=== PATIENT | male | born 1970 | race Caucasian/White ===

== ENCOUNTER 2022-08-31 16:18 | Outpatient (CLI) | payer MEDICARE, MEDICAID, SELFPAY ==
--- NOTE | ~2022-08-31 | XR_ITS ---
EXAMINATION: XR chest 2V DATE: 08/31/2022 17:05 INDICATION: Back pain. Smoking. TECHNIQUE: Frontal and lateral views of the chest were obtained. COMPARISON: None. FINDINGS: There is mild atelectasis in left lower lung zone. No pleural effusion or pneumothorax. The heart size is normal. IMPRESSION: 1. Mild atelectasis in left lower lung zone. Reviewed, dictated and finalized at location E.
--- NOTE | ~2022-08-31 | XR_ITS ---
EXAMINATION: XR thoracic spine 3V DATE: 08/31/2022 17:05 INDICATION: Back pain. TECHNIQUE: 3 views of thoracic spine were obtained. COMPARISON: None. FINDINGS: There is 12 degrees levoscoliosis of upper thoracic spine. Vertebral heights are normal. Th ere is mildly decreased disc height at multiple levels in mid and lower thoracic spine. IMPRESSION: 1. Mild thoracic spondylosis. 2. Upper thoracic levoscoliosis. Reviewed, dictated and finalized at location E.
--- NOTE | ~2022-08-31 | XR_ITS ---
EXAMINATION: XR lumbar spine 2-3V DATE: 08/31/2022 17:05 INDICATION: Back pain. TECHNIQUE: 3 views of lumbar spine were obtained. COMPARISON: None. FINDINGS: Bone alignment is normal. There is mild chronic anterior wedging of T12 and L1 vertebral fly dies, likely physiologic. There is mildly decreased disc height at L1-L2. There are endplate osteophy duglas at most levels. There is multilevel mild to moderate facet joint osteoarthritis. A peritoneal urmila lysis catheter is noted. IMPRESSION: 1. Mild lumbar spondylosis. Reviewed, dictated and finalized at location E. IMPRESSION: 1. Mild lumbar spondylosis.
== END 2022-08-31 16:19 | disposition home or self-care (01) ==
PROVIDERS: PCP Emergency Medicine; Visit Provider Internal Medicine Nephrology
DX: Z87.891 Personal history of nicotine dependence (principal); M47.896 Other spondylosis, lumbar region; M47.894 Other spondylosis, thoracic region; R91.8 Other nonspecific abnormal finding of lung field
CPT/HCPCS: 71046; 72072; 72100

== ENCOUNTER 2022-09-21 13:47 | Outpatient (CLI) | payer MEDICARE, MEDICAID, SELFPAY ==
--- NOTE | ~2022-09-21 | MR_ITS ---
EXAMINATION: MR lumbar spine wo con DATE: 09/21/2022 14:44 INDICATION: Dorsalgia, unspecified. TECHNIQUE: Magnetic resonance imaging (MRI) of the lumbar spine was performed without intravenous con trast. Sequences included sagittal T2-weighted FSE, sagittal T2-weighted FS FSE, sagittal T1-weighted FSE, and axial T2-weighted FSE. COMPARISON: Lumbar spine radiographs 08/31/2022 FINDINGS: There is 3 degrees dextrocurvature of lumbar spine. Vertebral body heights are normal. Ther e is mildly decreased disc height at L1-L2. The distal spinal cord signal intensity is normal. The co nus medullaris is at L1-L2. The following disc levels are specifically discussed: L1-L2: The disc is bulging. There is mild right and moderate left facet joint osteoarthritis. There i s mild bilateral neural foraminal stenosis. There is mild central canal stenosis. L2-L3: The disc is bulging. There is mild bilateral facet joint osteoarthritis. There is mild lateral neural foraminal stenosis. There is mild central canal stenosis. L3-L4: The disc is bulging. There is mild bilateral facet joint osteoarthritis. There is mild bilater al neural foraminal stenosis. There is mild central canal stenosis. L4-L5: The disc is bulging and has an annular fissure. There is severe right and moderate left facet joint osteoarthritis. There is mild bilateral neural foraminal stenosis. There is mild central canal stenosis. L5-S1: The disc is bulging. There is severe right and moderate left facet joint osteoarthritis. There is mild bilateral neural foraminal stenosis. There is mild central canal stenosis. IMPRESSION: 1. Mild lumbar spondylosis. Reviewed, dictated and finalized at location A. IMPRESSION: 1. Mild lumbar spondylosis.
--- NOTE | ~2022-09-21 | MR_ITS ---
EXAMINATION: MR thoracic spine wo con DATE: 09/21/2022 14:44 INDICATION: Dorsalgia, unspecified. TECHNIQUE: Magnetic resonance imaging (MRI) of the thoracic spine was performed without intravenous c ontrast. COMPARISON: Thoracic spine radiographs 08/31/2022 FINDINGS: There is 7 degrees levocurvature of upper thoracic spine. Vertebral body heights are normal . There is mildly decreased disc height from T5-T6 through T8-T9 and at T10-T11 with endplate remodel ing. At T10-T11, the disc is bulging with mild central canal stenosis. There is multilevel facet join t osteoarthritis, severe on the right at T4-T5. On the right, there is mild neural foraminal stenosis at T1-T2 and T4-T5. The spinal cord signal intensity is normal. IMPRESSION: 1. Mild thoracic spondylosis. Reviewed, dictated and finalized at location A.
== END 2022-09-21 13:48 | disposition home or self-care (01) ==
PROVIDERS: PCP Emergency Medicine; Referring Provider Internal Medicine Nephrology; Visit Provider Emergency Medicine
DX: M47.894 Other spondylosis, thoracic region (principal); M47.896 Other spondylosis, lumbar region
CPT/HCPCS: 72146; 72148

== ENCOUNTER 2022-11-02 15:27 | Emergency (ER) | payer MEDICARE, MEDICAID, OTHER, SELFPAY ==
[2022-11-02] VITALS (44 sets, daily range): BP systolic 137–210; BP diastolic 94–120; PULSE 82–166; RESP 11–23; TEMP 36.8; O2SAT 20–98
[2022-11-02] MEDS: LABETALOL HCL INJ 100 MG/20 ML VIAL 10 MG IV PUSH (20:02)
[2022-11-02 20:03] LABS: Basophils Absolute Auto 0.1 K/mm3 (0.0-0.1); Basophils Percent Auto 0.7 % (0.2-1.2); Eosinophils Absolute Auto 0.4 K/mm3 (0-0.3); Eosinophils Percent Auto 4.6 % (0-4.4); Hematocrit 28.8 % (42.0-52.0); Hemoglobin 9.4 g/dL (14.0-18.0); Immature Granulocyte Absolute 0.02 K/mm3 (0.00-0.031); Immature Granulocyte Percent A 0.2 % (0-0.5); Lymphocytes Absolute Auto 1.11 K/mm3 (0.9-3.2); Mean Corpuscular HGB Conc 32.6 g/dl (32-36); Mean Corpuscular Hemoglobin 32.4 pg (26-34); Mean Corpuscular Volume 99.3 fl (80-100); Mean Platelet Volume 8.7 fl (7.4-10.4); Monocytes Absolute Auto 0.9 K/mm3 (0.1-0.6); Neutrophils Absolute Auto 6.1 K/mm3 (1.3-6.7); Neutrophils Percent Auto 71.5 % (45.5-73.1); Platelet Count Result 337 k/mm3 (150-375); Red Cell Distribution Width 13.2 % (11.5-14.5); White Blood Count 8.5 K/mm3 (4.5-10.0)
[2022-11-02 20:26] LABS: Alanine Aminotransferase 25 U/L (6-50); Albumin Level 3.4 g/dL (3.5-5.1); Alkaline Phosphatase 73 U/L (38-126); Anion Gap 13 mmol/L (8-16); Aspartate Amino Transferase 27 U/L (17-59); Bilirubin,Total 0.5 mg/dL (0.2-1.3); Blood Urea Nitrogen 54 mg/dL (9-20); Calcium 7.8 mg/dL (8.4-10.2); Carbon Dioxide 21 mmol/L (22-30); Chloride 95 mmol/L (98-107); Estimated CRCL calculation 9 ml/min; Estimated Glomerular Filt Rate 5; Glucose 80 mg/dL (65-110); Sodium 129 mmol/L (137-145)
--- NOTE | 2022-11-02 20:31 | ED.GENADULT ---
HPI - General Adult General Chief complaint: Shortness of Breath/Dyspnea Stated complaint: SOB Time Seen by Provider: 11/02/22 19:16 History of Present Illness HPI narrative: Patient presents to the emergency department with his family. He was seen at his doctor's office today. He gets peritoneal dialysis every day at home due to end-stage renal disease. Over the past couple weeks he has been getting more short of breath. Now over the past week bilateral lower extremity edema. Denies fevers or chills. Spoke to his dialysis nurse and was told to due to red bags and that should relieve his swelling. However his primary care physician requested that he come to the emergency department. He had a chest x-ray and labs earlier today. Was told that the BNP was elevated. Added that he has taken 2 COVID tests at home that are negative. His family member contributes to the history stating that the symptoms are new for him Related Data Home Medications Medication Instructions Recorded Confirmed aspirin 325 mg tablet,delayed 325 mg PO DAILY PRN 08/31/22 release calcium acetate 667 mg tablet 1,334 mg PO .COMPLEX 08/31/22 furosemide 80 mg tablet 80 mg PO QAM 08/31/22 gentamicin 0.1 % topical cream 1 applic topical TID PRN 08/31/22 hydroxyzine HCl 10 mg tablet 10 mg PO DAILY PRN 08/31/22 melatonin 10 mg capsule 10 mg PO QHS PRN 08/31/22 nkuzzxjcunme-lzy-ixwzn acid-vit 1 tablet PO DAILY 08/31/22 K-lycop 400 mcg-20 mcg-370 mcg tablet (Men's 50 Plus Multivitamin) ondansetron 4 mg disintegrating 4 mg PO Q8H PRN 08/31/22 tablet labetalol 100 mg tablet 200 mg PO Q12H 10/13/22 Allergies Allergy/AdvReac Type Severity Reaction Status Date / Time No Known Allergies Allergy Verified 11/02/22 11:25 Review of Systems Review of Systems: ROS negative except for what is documented in the [facility] Social History Social History (Updated 11/02/22 @ 11:26 by Lyssa Mccord MA) Smoking status: Current every day smoker Alcohol intake: current Alcohol use details: rarely Current Housing: Decline to Answer Concerned About Future Housing: Decline to Answer Difficulty Paying Gas/Electric Bills: Decline to Answer Difficulty Paying for Meds: Decline to Answer Currently Unemployed: Decline to Answer Education: Decline to Answer Difficulty w/ Childcare or Family Care: Decline to Answer Exam Narrative: GENERAL: Well-appearing, well-nourished, and in no acute distress. HEAD: Normocephalic, atraumatic. EYES: PERRLA and EOMI. ENT: Nares clear, no rhinorrhea or epistaxis. Mucous membranes moist. NECK: Supple. CHEST: Clear to auscultation. No respiratory distress. HEART: Regular rate and rhythm. ABDOMEN: Soft, nontender, nondistended. EXTREMITIES: Normal range of motion. Significant edema. SKIN: Warm, dry, no rash. NEURO: No focal deficits. Alert and oriented x3. PSYCH: Normal mood and affect. Course Course Emergency Course: Differential diagnosis includes but not limited to new onset congestive heart failure, fluid overload secondary to end-stage renal disease, electrolyte abnormality Telemetry ordered due to extremity edema and shortness of breath to evaluate for dysrhythmias. Evaluated by myself. Rhythm ns Rate 86 Vital Signs Vital signs: Vital Signs Temperature 36.8 C 11/02/22 15:27 Pulse Rate 88 11/02/22 15:27 Respiratory Rate 18 11/02/22 15:27 Blood Pressure 188/108 H 11/02/22 15:27 Pulse Oximetry 96 11/02/22 15:27 Oxygen Delivery Room Air 11/02/22 15:27 Temperature 36.8 C 11/02/22 15:27 Pulse Rate 83 11/02/22 23:11 Respiratory Rate 20 11/02/22 23:11 Blood Pressure 161/98 H 11/02/22 23:11 Pulse Oximetry 94 11/03/22 00:15 Oxygen Delivery Nasal Cannula 11/03/22 00:15 Oxygen Flow Rate 2 11/03/22 00:15 Medical Decision Making Vital Signs Vital Signs: Vital Signs Temperature 36.8 C 11/02/22 15:27 Pulse Rate 88
[2022-11-02] MEDS: cloNIDine HCL 0.1 MG TABLET 0.2 MG PO (21:57)
[2022-11-02] MEDS: ALBUTEROL SULFATE NEB 2.5 MG/3 ML INH INHALATION (22:31)
[2022-11-02] MEDS: methylPREDNISolone SOD SUCC 125 MG VIAL IV PUSH (22:54)
--- NOTE | 2022-11-03 00:14 | PC.NURSE ---
Pt ambulated with steady gait with pulse oximeter. Pts O2 saturations 88% while ambulating. Pt placed back on 2L NC, resting on stretcher.
[2022-11-03 00:15] VITALS: O2SAT 94
[2022-11-03 00:57] VITALS: PULSE 87; RESP 20; O2SAT 94
[2022-11-03 01:26] VITALS: BP 162/100; PULSE 91; RESP 22; O2SAT 92
== END 2022-11-03 01:26 | disposition home or self-care (01) ==
PROVIDERS: Emergency Provider Emergency Medicine; PCP Emergency Medicine
DX: J44.9 Chronic obstructive pulmonary disease, unspecified (principal); J81.0 Acute pulmonary edema; E87.70 Fluid overload, unspecified; R09.89 Other specified symptoms and signs involving the circulatory and respiratory systems; N18.6 End stage renal disease; Z99.2 Dependence on renal dialysis; Z79.82 Long term (current) use of aspirin; Z79.51 Long term (current) use of inhaled steroids
CPT/HCPCS: 36415; 71046; 80053; 83880; 85025; 94640; 96374; 96375; 99284; A9270; J2930

== ENCOUNTER 2022-11-11 14:14 | Outpatient (CLI) | payer MEDICARE, MEDICAID, SELFPAY ==
--- NOTE | ~2022-11-11 | US_ITS ---
EXAMINATION: US art doppler w press LE BI DATE: 11/11/2022 15:26 INDICATION: Peripheral vascular disease TECHNIQUE: Segmental pressures and plethysmographic and Doppler waveforms of the brachial and lower e xtremity arteries were obtained. COMPARISON: None. FINDINGS: Right and left brachial artery pressures of 146 mm Hg and 144 mm Hg, respectively, are concordant (no rmal difference <= 30 mmHg). The right and left high-thigh pressure indices are unable to be obtained due to inability to occlude the vessels in either the left or right thighs (normal > 1.2). The right ankle-brachial index (JAUN) is 1.21 (normal >= 0.9-1). The right great toe-brachial index (T BI) is 0.59 (normal >= 0.6-0.8). The right lower extremity segmental pressure gradients are increased between the right szwub-okw-kxdc popliteal artery and the right dorsalis pedis artery (normal gradie nts <= 20-30 mmHg between adjacent levels on the same leg or the same levels on the two legs). Arteri al waveforms are triphasic with brisk systolic upstrokes throughout the arteries of the right lower l imb. The left JAUN is 1.30. The left TBI is 1.05. The left lower extremity segmental pressure gradients rel ative to the obtainable pressure measurements at the left ankle are normal. Arterial waveforms are tr iphasic with brisk systolic upstrokes throughout the arteries of the left lower limb. IMPRESSION: 1. Mild arterial occlusive disease to right lower limb with normal right JAUN but mildly decreased rig ht TBI. 2. No significant arterial occlusive disease to left lower limb with normal left JAUN and TBI. Reviewed, dictated and finalized at location A. IMPRESSION: 1. Mild arterial occlusive disease to right lower limb with normal right JAUN bu t mildly decreased right TBI. 2. No significant arterial occlusive disease to left lower limb with normal lef t JAUN and TBI.
== END 2022-11-11 14:15 | disposition home or self-care (01) ==
PROVIDERS: PCP Emergency Medicine; Visit Provider Emergency Medicine
DX: I73.9 Peripheral vascular disease, unspecified (principal)
CPT/HCPCS: 93923

== ENCOUNTER 2022-12-12 10:28 | Outpatient (CLI) | payer MEDICARE, MEDICAID, SELFPAY ==
--- NOTE | ~2022-12-12 | CT_ITS ---
EXAMINATION: CT sinus wo con DATE: 12/12/2022 13:01 INDICATION: Sinusitis TECHNIQUE: Computed tomography (CT) of the paranasal sinuses was performed without intravenous contra st. The dose-length product was 329.94 mGy-cm. Automated exposure control and iterative reconstructio n technique were employed. COMPARISON: None FINDINGS: There is mucosal thickening of the frontal, ethmoid, maxillary and sphenoid sinuses. Mastoi ds are pneumatized. Rightward nasal septal deviation. There is abnormal soft tissue involving the ost iomeatal units. IMPRESSION: 1. Severe pansinusitis. Reviewed, dictated and finalized at location A. IMPRESSION: 1. Severe pansinusitis.
--- NOTE | 2022-12-12 10:52 | ECHO_ITS ---
Patient Info Name: Saul Rolon Age: 52 years : 1970 Gender: Male Ht: 71 in Wt: 220 lbs BSA: 2.26 m2 HR: 89 bpm BP: 144 / 82 mmHg Heart Rhythm: Sinus Rhythm Technical Quality: Good Exam Date: 12/12/2022 11:04 AM Exam Location: [facility] Patient Status: Outpatient Admit Date: 12/12/2022 Staff Ordering Physician: Milo Morrell MD Tanning Consultant: Tima Chris RDCS Attending Provider: Milo Morrell MD Referring Physician: Petros DAVEY; Exam Type: CA echo doppler color flow Study Info Indications - cp, chronic cough, nasal congestion Complete two-dimensional, color flow and Doppler transthoracic echocardiogram is performed. Summary 1. Complete two-dimensional, color flow and Doppler transthoracic echocardiogram is performed. 2. Left ventricular chamber dimension is mildly enlarged. 3. Left ventricular systolic function is normal, estimated at 60-65%. 4. There is mild concentric increased left ventricular wall thickness. 5. The left ventricular diastolic function is abnormal. 6. E/e' 18 is elevated. 7. Left atrial chamber dimension is moderately enlarged. 8. Right atrial chamber dimension is mildly enlarged. 9. The mitral valve has severely calcified posterior annulus. 10. There is mild mitral valve regurgitation. 11. There is trace tricuspid valve regurgitation. 12. No pulmonary hypertension, estimated pulmonary arterial systolic pressure is 38 mmHg. Left Ventricle E/e' 18 is elevated. Left ventricular chamber dimension is mildly enlarged. Left ventricular systolic function is normal, estimated at 60-65%. There is mild concentric increased left ventricular wall thickness. The left ventricular diastolic function is abnormal. Right Ventricle Right ventricular systolic function is normal and with normal TAPSE 3.5 cm. Right ventricular chamber dimension is normal. Left Atria Left atrial chamber dimension is moderately enlarged. Right Atria Right atrial chamber dimension is mildly enlarged. Aortic Valve The aortic valve is trileaflet. There is no aortic valve stenosis. There is no aortic valve regurgitation. Pulmonic Valve There is no pulmonic regurgitation. Mitral Valve The mitral valve has severely calcified posterior annulus. There is no mitral valve stenosis. There is mild mitral valve regurgitation. Tricuspid Valve There is trace tricuspid valve regurgitation. No pulmonary hypertension, estimated pulmonary arterial systolic pressure is 38 mmHg. Pericardium/Pleural There is no pericardial effusion. Inferior Vena Cava Normal inferior vena cava with >50% collapse upon inspiration consistent with normal right atrial pressure, 5 mmHg. Aorta The aortic root size at the sinus of Valsalva is normal. Left Ventricular Outflow Tract Name Value Normal LVOT 2D LVOT Diameter 2.1 cm LVOT Doppler LVOT Peak Gradient 4 mmHg LVOT Mean Gradient 2 mmHg LVOT VTI 29 cm LVOT VTI/AV VTI Ratio 0.9 LVOT Stroke Volume 101 ml LVOT CO 5.9 l/min LVOT CI
== END 2022-12-12 10:29 | disposition home or self-care (01) ==
LOC: ANHCARD 10:30
PROVIDERS: PCP Emergency Medicine; Visit Provider Emergency Medicine
DX: J32.4 Chronic pansinusitis (principal); I34.0 Nonrheumatic mitral (valve) insufficiency; R93.1 Abnormal findings on diagnostic imaging of heart and coronary circulation; R09.89 Other specified symptoms and signs involving the circulatory and respiratory systems; R09.81 Nasal congestion; I07.1 Rheumatic tricuspid insufficiency
CPT/HCPCS: 70486; 93306

== ENCOUNTER 2023-03-24 13:19 | Outpatient (CLI) | payer MEDICARE, MEDICAID, SELFPAY ==
--- NOTE | 2023-03-24 14:00 | NEURO_ITS ---
Impression: # Complains of numbness of lower extremities. He is on daily home dialysis ? # Severe axonal neuropathy. ? # Needle/EMG exam revealed neurogenic changes. ? # Clinical correlation recommended. ? Nerve Conduction Studies Anti Sensory Summary Table Stim Site NR Peak (ms) P-T Amp (?V) Site1 Site2 Delta-P (ms) Dist (cm) Bill (m/s) Left Saphenous Anti Sensory (Ant Med Mall) NO RESPONSE 14cm NR 14cm Ant Med Mall 0.0 Right Saphenous Anti Sensory (Ant Med Mall) NO RESPONSE 14cm NR 14cm Ant Med Mall 0.0 Left Sup Fibular Anti Sensory (Ant Lat Mall) NO RESPONSE 14 cm NR 14 cm Ant Lat Mall 16.0 Right Sup Fibular Anti Sensory (Ant Lat Mall) NO RESPONSE 14 cm NR 14 cm Ant Lat Mall 16.0 Left Sural Anti Sensory (Lat Mall) NO RESPONSE Calf NR Calf Lat Mall 16.0 Right Sural Anti Sensory (Lat Mall) NO RESPONSE Calf NR Calf Lat Mall 16.0 Motor Summary Table Stim Site NR Onset (ms) O-P Amp (mV) Site1 Site2 Delta-0 (ms) Dist (cm) Bill (m/s) Left Peroneal Motor (Vastus Med) Ankle 5.2 0.9 Popit Ankle 11.3 39.0 35 Popit 16.5 0.6 Right Peroneal Motor (Vastus Med) NO RESPONSE Ankle NR Popit Ankle 0.0 Popit NR Left Tibial Motor (Abd Cao Brev) NO RESPONSE Ankle NR Knee NR Right Tibial Motor (Abd Cao Brev) NO RESPONSE Ankle NR Knee NR F Wave Studies NR F-Lat (ms) L-R F-Lat (ms) Left Peroneal (Mrkrs) (EDB) 63.51 Right Peroneal (Mrkrs) (EDB) NO RESPONSE NR Left Tibial (Mrkrs) (Abd Hallucis) NO RESPONSE NR Right Tibial (Mrkrs) (Abd Hallucis) NO RESPONSE NR EMG Side Muscle Nerve Root Ins Act Fibs Amp Dur Recrt Comment Right AntTibialis Dp Br Fibular L4-5 Nml Nml Nml >12ms Reduced Right Gastroc Tibial S1-2 Nml Nml Nml >12ms Reduced Right Fibularis Long Sup Br Fibular L5-S1 Nml Nml Nml >12ms Reduced Right Flex Dig Long Tibial L5-S2 Nml Nml Nml >12ms Reduced Right Ext Dig Brev Dp Br Fibular L5, S1 Nml Nml Nml >12ms Reduced Left AntTibialis Dp Br Fibular L4-5 Nml Nml Nml >12ms Reduced Left Gastroc Tibial S1-2 Nml Nml Nml >12ms Reduced Left Fibularis Long Sup Br Fibular L5-S1 Nml Nml Nml >12ms Reduced Left Flex Dig Long Tibial L5-S2 Nml Nml Nml >12ms Reduced Left Ext Dig Brev Dp Br Fibular L5, S1 Nml Nml Nml >12ms Reduced MTDD
== END 2023-03-24 13:20 | disposition home or self-care (01) ==
PROVIDERS: PCP Emergency Medicine
DX: G60.3 Idiopathic progressive neuropathy (principal); M54.16 Radiculopathy, lumbar region
CPT/HCPCS: 95886; 95911

== ENCOUNTER 2023-04-20 05:20 | Day surgery (SDC) | payer MEDICARE, MEDICAID, SELFPAY ==
[2023-04-01 14:45] VITALS: BMI 33.3
--- NOTE | 2023-04-16 14:50 | PC.NURSE ---
Patient called regarding upcoming procedure. Reviewed preop instructions, appointment times, and procedure prep. Message left to call back if he has any questions.
[2023-04-20 11:00] VITALS: BP 153/89; PULSE 83; RESP 20; TEMP 36.6; O2SAT 100; BMI 34.9
[2023-04-20] MEDS: SODIUM CHLORIDE 0.9% IV 500 ML 10 ML IV CONT (11:15)
[2023-04-20 11:24] LABS: Anion Gap 16 mmol/L (8-16); Blood Urea Nitrogen 59 mg/dL (9-20); Calcium 8.2 mg/dL (8.4-10.2); Carbon Dioxide 23 mmol/L (22-30); Chloride 92 mmol/L (98-107); Estimated CRCL calculation 8 ml/min; Estimated Glomerular Filt Rate 4; Glucose 89 mg/dL (65-110); Potassium 3.3 mmol/L (3.4-5.0); Sodium 131 mmol/L (137-145)
--- NOTE | 2023-04-20 11:42 | WPDANESEPPF ---
Anes - Initial Pre Proc Eval Procedure: Operation Date: 04/20/23 12:30 Proposed Procedures p Screening Colonoscopy - Arnold Castaneda MD Date/Time: 04/20/23 11:42 Surgeon: Arnold Castaneda MD Pre Op Diagnosis: neoplasm screening Patient Data Age: 53 Gender: M Height: 1.78 m Weight: 110.4 kg Last Vital Signs Temp 36.6 C 04/20/23 11:00 Pulse 83 04/20/23 11:00 Resp 20 04/20/23 11:00 BP 153/89 H 04/20/23 11:00 Pulse Ox 100 04/20/23 11:00 O2 Del Method Room Air 04/20/23 11:00 Allergies Allergy/AdvReac Type Severity Reaction Status Date / Time No Known Allergies Allergy Verified 04/20/23 10:58 Home Medications Medication Instructions Recorded Confirmed Type acetaminophen 650 mg 650 mg PO Q6H PRN pain #90 tabs 08/31/22 04/01/23 Rx tablet,extended release (Tylenol 8 Hour) calcium acetate 667 mg tablet 2,668 mg PO TIDWMEAL 08/31/22 04/01/23 History furosemide 80 mg tablet 80 mg PO QAM 08/31/22 04/01/23 History gentamicin 0.1 % topical cream 1 applic topical TID PRN DIALYSIS 08/31/22 04/01/23 History CATH. melatonin 10 mg capsule 40 mg PO QHS 08/31/22 04/01/23 History amlodipine 10 mg tablet 10 mg PO DAILY #90 tabs 10/13/22 04/01/23 Rx gabapentin 300 mg capsule 300 mg PO TID #270 caps 11/30/22 04/01/23 Rx albuterol sulfate 90 mcg/actuation 1 inh inhalation QID PRN shortness 03/01/23 04/01/23 Rx aerosol inhaler of breath or wheezing #8.5 grams peg 3350-electrolytes 236 240 ml PO Q10M #4,000 mL 03/18/23 Rx gram-22.74 gram-6.74 gram-5.86 gram solution (Golytely) alprazolam 0.5 mg tablet (Xanax) 0.5 mg PO BID PRN anxiety #30 tabs 03/30/23 04/01/23 Rx Adults Multivitamin 1 tab-cap PO DAILY 04/01/23 04/01/23 History ascorbic acid (vitamin C) 500 mg 500 mg PO DAILY 04/01/23 04/01/23 History tablet cinacalcet 30 mg tablet 30 mg PO DAILY 04/01/23 04/01/23 History escitalopram oxalate 10 mg tablet 10 mg PO DAILY 04/01/23 04/01/23 History labetalol 200 mg tablet 200 mg PO BID 04/01/23 04/01/23 History lanthanum 1,000 mg chewable tablet 1,000 mg PO TIDWM 04/01/23 04/01/23 History nicotine 7 mg/24 hr daily 1 patch topical Q24H 04/01/23 04/01/23 History transdermal patch omeprazole 20 mg tablet,delayed 20 mg PO DAILY 04/01/23 04/01/23 History release triamcinolone acetonide 0.1 % 1 applic topical BID 04/01/23 04/01/23 History topical ointment vitamin A 2,400 mcg capsule 2,400 mcg PO DAILY 04/01/23 04/01/23 History Laboratory Tests 04/20/23 11:10 Sodium 131 L mmol/L (137-145) Potassium 3.3 L mmol/L (3.4-5.0) Chloride 92 L mmol/L (98-107) Carbon Dioxide 23 mmol/L (22-30) Anion Gap 16 mmol/L (8-16) BUN 59 H mg/dL (9-20) Creatinine 12.30 H mg/dL (0.7-1.3) Estim Creat Clear Calc 8 ml/min Estimated GFR 4 L (59 - ) Glucose 89 mg/dL (65-110) Calcium 8.2 L mg/dL (8.4-10.2) Patient hx anesthesia problems: none Family hx anesthesia problems: none Results Review: All pre-operative results and documents have been reviewed as part of the pre-operative evaluation. [facility] Past Medical History Medical History End stage kidney disease HTN (hypertension) Vitamin D3 deficiency Social History Social History Smoking packs per day: 0.5 Smoking cigarettes per day: 10.0 Years smoked: 20 Smoking pack-years: 10.00 Smoking status: Current some day smoker Tobacco type: cigarettes Additional smoking assessment comments: CURRENTLY QUITTING - ONLY SMOKING 2-3 CIG/DAY Alcohol intake: never Alcohol use details: rarely Substance use: current Substance use type: marijuana Other substance usage details: OCCASIONAL Lack of Transportation: No Lack of Food: Sometimes True Current Housing: I Have Housing Concerned About Future Housing: No Difficulty Paying Ga
--- NOTE | 2023-04-20 12:24 | PM.HPGS ---
History of Present Illness History of Present Illness Consent: Risks, benefits, and alternatives have been discussed and questions answered. Patient agrees to proceed with procedure. Chief complaint: neoplasm screening Narrative: Real Rolon is a 53 year old male here for first screening colonoscopy Review of Systems Constitutional: Constitutional: Denies headache(s) and Denies weakness Eyes: Eyes: Denies blurry vision ENT: Reports Normal hearing present, Denies headache(s) and Denies neck pain Cardiovascular: Cardiovascular: Denies chest pain and Denies dyspnea Respiratory: Respiratory: Denies dyspnea Gastrointestinal: Gastrointestinal: Reports no additional gastrointestinal complaints Genitourinary: Genitourinary: Denies dysuria Musculoskeletal: Musculoskeletal: Denies neck pain Integumentary/Breasts: Skin/Breast: Denies dry skin Neurologic: Reports Normal hearing present, Denies headache(s) and Denies weakness Psychiatric: Psychiatric: Denies anxiety Endocrine: Endocrine: Denies change in body appearance Hematologic/Lymphatic: Hematologic/Lymphatic: Denies easy bleeding Allergic/Immunologic: Allergic/Immunologic: Denies urticaria PMFSH Past Medical History Medical History End stage kidney disease HTN (hypertension) Vitamin D3 deficiency Social History Social History Smoking packs per day: 0.5 Smoking cigarettes per day: 10.0 Years smoked: 20 Smoking pack-years: 10.00 Smoking status: Current some day smoker Tobacco type: cigarettes Additional smoking assessment comments: CURRENTLY QUITTING - ONLY SMOKING 2-3 CIG/DAY Alcohol intake: never Alcohol use details: rarely Substance use: current Substance use type: marijuana Other substance usage details: OCCASIONAL Lack of Transportation: No Lack of Food: Sometimes True Current Housing: I Have Housing Concerned About Future Housing: No Difficulty Paying Gas/Electric Bills: No Difficulty Paying for Meds: No Currently Unemployed: YES Education: Bachelor's Degree Difficulty w/ Childcare or Family Care: No Living arrangements: with family Spiritual care concerns: No Meds Home Medications and Allergies Home Medications Medication Instructions Recorded Confirmed Type acetaminophen 650 mg 650 mg PO Q6H PRN pain #90 tabs 08/31/22 04/01/23 Rx tablet,extended release (Tylenol 8 Hour) calcium acetate 667 mg tablet 2,668 mg PO TIDWMEAL 08/31/22 04/01/23 History furosemide 80 mg tablet 80 mg PO QAM 08/31/22 04/01/23 History gentamicin 0.1 % topical cream 1 applic topical TID PRN DIALYSIS 08/31/22 04/01/23 History CATH. melatonin 10 mg capsule 40 mg PO QHS 08/31/22 04/01/23 History amlodipine 10 mg tablet 10 mg PO DAILY #90 tabs 10/13/22 04/01/23 Rx gabapentin 300 mg capsule 300 mg PO TID #270 caps 11/30/22 04/01/23 Rx albuterol sulfate 90 mcg/actuation 1 inh inhalation QID PRN shortness 03/01/23 04/01/23 Rx aerosol inhaler of breath or wheezing #8.5 grams peg 3350-electrolytes 236 240 ml PO Q10M #4,000 mL 03/18/23 Rx gram-22.74 gram-6.74 gram-5.86 gram solution (Golytely) alprazolam 0.5 mg tablet (Xanax) 0.5 mg PO BID PRN anxiety #30 tabs 03/30/23 04/01/23 Rx Adults Multivitamin 1 tab-cap PO DAILY 04/01/23 04/01/23 History ascorbic acid (vitamin C) 500 mg 500 mg PO DAILY 04/01/23 04/01/23 History tablet cinacalcet 30 mg tablet 30 mg PO DAILY 04/01/23 04/01/23 History escitalopram oxalate 10 mg tablet 10 mg PO DAILY 04/01/23 04/01/23 History labetalol 200 mg tablet 200 mg PO BID 04/01/23 04/01/23 History lanthanum 1,000 mg chewable tablet 1,000 mg PO TIDWM 04/01/23 04/01/23 History nicotine 7 mg/24 hr daily 1 patch topical Q24H 04/01/23 04/01/23 History transdermal patch omeprazole 20 mg tablet,delayed 20 mg PO DAILY 04/01/23 04/01/23 History release triamcinolone ac
[2023-04-20 12:46] VITALS: BP 123/87; PULSE 79; RESP 20; O2SAT 95
[2023-04-20 12:56] VITALS: BP 124/80; PULSE 78; RESP 22; O2SAT 93
[2023-04-20 13:06] VITALS: BP 151/92; PULSE 79; RESP 16; O2SAT 100
== END 2023-04-20 13:25 | disposition home or self-care (01) ==
PROVIDERS: Anesthesiology; PCP Emergency Medicine; Visit Provider Internal Medicine Gastroenterology
PROC: 0DJD8ZZ Inspection of Lower Intestinal Tract, Via Natural or Artificial Opening Endoscopic (ICD-10-PCS; CPT 45378; principal; 2023-04-20 12:30)
DX: Z12.11 Encounter for screening for malignant neoplasm of colon (principal); D12.3 Benign neoplasm of transverse colon; K64.8 Other hemorrhoids; I12.0 Hypertensive chronic kidney disease with stage 5 chronic kidney disease or end stage renal disease; N18.6 End stage renal disease; E55.9 Vitamin D deficiency, unspecified; F17.210 Nicotine dependence, cigarettes, uncomplicated
CPT/HCPCS: 45385; 36415; 80048; 88305; A9270; J2704; J7040

== ENCOUNTER 2023-06-21 10:09 | Emergency (ER) | payer MEDICARE, MEDICAID, SELFPAY ==
--- NOTE | 2023-06-21 10:33 | ED.EAR ---
HPI - Ear Problem General Chief complaint: Ear Stated complaint: Rt ear pain Time Seen by Provider: 06/21/23 10:53 Source: patient and RN notes reviewed Mode of arrival: ambulatory Limitations: no limitations History of Present Illness HPI Narrative: 53 year old male presents with concern for right ear pain that started on Wednesday. He reports some watery drainage. He denies cold symptoms, fever. He denies intervention for his pain MD Complaint: ear pain Related Data Home Medications Medication Instructions Recorded Confirmed calcium acetate 667 mg tablet 2,668 mg PO TIDWMEAL 08/31/22 06/21/23 furosemide 80 mg tablet 80 mg PO QAM 08/31/22 06/21/23 gentamicin 0.1 % topical cream 1 applic topical TID PRN DIALYSIS 08/31/22 06/21/23 CATH. melatonin 10 mg capsule 40 mg PO QHS 08/31/22 06/21/23 Adults Multivitamin 1 tab-cap PO DAILY 04/01/23 06/21/23 ascorbic acid (vitamin C) 500 mg 500 mg PO DAILY 04/01/23 06/21/23 tablet cinacalcet 30 mg tablet 30 mg PO DAILY 04/01/23 06/21/23 escitalopram oxalate 10 mg tablet 10 mg PO DAILY 04/01/23 06/21/23 labetalol 200 mg tablet 200 mg PO BID 04/01/23 06/21/23 lanthanum 1,000 mg chewable tablet 1,000 mg PO TIDWM 04/01/23 06/21/23 omeprazole 20 mg tablet,delayed 20 mg PO DAILY 04/01/23 06/21/23 release triamcinolone acetonide 0.1 % 1 applic topical BID 04/01/23 06/21/23 topical ointment vitamin A 2,400 mcg capsule 2,400 mcg PO DAILY 04/01/23 06/21/23 Allergies Allergy/AdvReac Type Severity Reaction Status Date / Time No Known Allergies Allergy Verified 06/21/23 10:29 Review of Systems Review of Systems: CONSTITUTIONAL: Denies malaise, chills, sweats, or fever. EYES: Denies visual changes, redness, or discharge. ENT: Denies rhinorrhea, congestion, sinus pain, and sore throat. Reports right ear pain CARDIOVASCULAR: Denies chest pain, palpitations, or edema. RESPIRATORY: Denies cough. Denies dyspnea. GASTROINTESTINAL: Denies abdominal pain, nausea, vomiting, diarrhea SKIN: Denies rash or itching. MUSCULOSKELETAL: Denies myalgia. NEUROLOGIC: Denies headache. All systems reviewed & are unremarkable except as noted in HPI and below PMFSH Past Medical History Medical History End stage kidney disease HTN (hypertension) Vitamin D3 deficiency Social History Social History Smoking packs per day: 0.5 Smoking cigarettes per day: 10.0 Years smoked: 20 Smoking pack-years: 10.00 Smoking status: Current some day smoker Tobacco type: cigarettes Additional smoking assessment comments: CURRENTLY QUITTING - ONLY SMOKING 2-3 CIG/DAY Alcohol intake: never Alcohol use details: rarely Substance use: current Substance use type: marijuana Other substance usage details: OCCASIONAL Lack of Transportation: No Lack of Food: Sometimes True Current Housing: I Have Housing Concerned About Future Housing: No Difficulty Paying Gas/Electric Bills: No Difficulty Paying for Meds: No Currently Unemployed: YES Education: Bachelor's Degree Difficulty w/ Childcare or Family Care: No Living arrangements: with family Spiritual care concerns: No Comments At time of signature, agree with nursing past medical, surgical, social and family history. There is no relevant family history pertinent to the presenting complaint Exam Narrative: GENERAL: Well-appearing, well-nourished, and in no acute distress. HEAD: Normocephalic EYES: PERRLA, conjunctivae clear ENT: Nares clear. Mucous membranes moist. TM pearly brooke with sharp light reflex bilaterally; right tragal tenderness with mildly edematous EAC. NECK: Supple. No lymphadenopathy CHEST: No respiratory distress, speaks in full sentences. HEART: Regular rate and rhythm. No murmur heard. SKIN: Warm, dry, no rash. NEURO: Alert and oriented x3. PSYCH: Normal mood and affect Course Course Emerg
[2023-06-21 10:39] VITALS: BP 118/79; PULSE 72; RESP 20; TEMP 36.4; O2SAT 98
== END 2023-06-21 11:06 | disposition home or self-care (01) ==
PROVIDERS: Emergency Provider Nurse Practitioner; PCP Emergency Medicine
DX: H60.91 Unspecified otitis externa, right ear (principal); I12.0 Hypertensive chronic kidney disease with stage 5 chronic kidney disease or end stage renal disease; N18.6 End stage renal disease; Z99.2 Dependence on renal dialysis; F17.210 Nicotine dependence, cigarettes, uncomplicated; F12.90 Cannabis use, unspecified, uncomplicated
CPT/HCPCS: 99213; G0463

== ENCOUNTER 2023-08-12 11:04 | Outpatient (CLI) | payer MEDICARE, MEDICAID, SELFPAY ==
[2023-08-12 11:42] LABS: Cholesterol 135 mg/dL (0-200); HDL Direct 27 mg/dL; Triglycerides 157 mg/dL (<150)
[2023-08-12 11:55] LABS: LDL Cholesterol Direct 73 mg/dL
[2023-08-12 12:15] LABS: Prostate Specific Antigen 0.3 ng/mL (< OR = 4.0)
[2023-08-12 12:49] LABS: Folic Acid 10.5 ng/mL (2.76->20)
[2023-08-13 03:43] LABS: Protein, Total 6.3 g/dL (6.1-8.1)
[2023-08-13 16:38] LABS: Albumin 3.3 g/dL (3.8-4.8); Alpha 1 Globulin 0.3 g/dL (0.2-0.3); Alpha 2 Globulin 1.1 g/dL (0.5-0.9); Beta 1 Globulin 0.4 g/dL (0.4-0.6); Gamma Globulin 0.8 g/dL (0.8-1.7)
[2023-08-14 12:57] LABS: Vitamin B6 7.1 ng/mL (2.1-21.7)
[2023-08-15 11:44] LABS: Vitamin B1 62 nmol/L (8-30)
[2023-08-15 13:53] LABS: Vitamin D 1,25 (OH)2 Total 8 pg/mL (18-72); Vitamin D2 1,25 (OH)2 <8 pg/mL; Vitamin D3 1,25 (OH)2 8 pg/mL
[2023-08-15 18:52] LABS: Immunofixation, Serum Normal pattern.; Methylmalonic Acid 1036 nmol/L (55-335)
== END 2023-08-12 11:05 | disposition home or self-care (01) ==
PROVIDERS: PCP Nurse Practitioner Family; Referring Provider Psychiatry & Neurology Neurology; Visit Provider Nurse Practitioner Family
DX: G62.9 Polyneuropathy, unspecified (principal); N18.6 End stage renal disease; R60.9 Edema, unspecified; E55.9 Vitamin D deficiency, unspecified; Z12.5 Encounter for screening for malignant neoplasm of prostate; E78.5 Hyperlipidemia, unspecified
CPT/HCPCS: 36415; 80061; 82607; 82652; 82746; 83921; 84153; 84155; 84165; 84207; 84425; 84443; 86038; 86039; 86334; G0103

== ENCOUNTER 2023-08-18 12:12 | Outpatient (CLI) | payer MEDICARE, MEDICAID, SELFPAY ==
[2023-08-18 12:32] LABS: Basophils Absolute Auto 0.1 K/mm3 (0.0-0.1); Basophils Percent Auto 0.7 % (0.2-1.2); Eosinophils Absolute Auto 2.7 K/mm3 (0-0.3); Eosinophils Percent Auto 20.1 % (0-4.4); Hematocrit 36.8 % (42.0-52.0); Hemoglobin 12.1 g/dL (14.0-18.0); Immature Granulocyte Absolute 0.04 K/mm3 (0.00-0.031); Immature Granulocyte Percent A 0.3 % (0-0.5); Lymphocytes Absolute Auto 1.44 K/mm3 (0.9-3.2); Lymphocytes Percent Auto 10.6 % (18.3-44.2); Mean Corpuscular HGB Conc 32.9 g/dl (32-36); Mean Corpuscular Hemoglobin 32.2 pg (26-34); Mean Corpuscular Volume 97.9 fl (80-100); Mean Platelet Volume 8.8 fl (7.4-10.4); Monocytes Absolute Auto 1.2 K/mm3 (0.1-0.6); Monocytes Percent Auto 8.5 % (2.6-8.5); Neutrophils Absolute Auto 8.1 K/mm3 (1.3-6.7); Neutrophils Percent Auto 59.8 % (45.5-73.1); Platelet Count Result 334 k/mm3 (150-375); Red Blood Count 3.76 M/mm3 (4.6-6.20); Red Cell Distribution Width 13.5 % (11.5-14.5); White Blood Count 13.6 K/mm3 (4.5-10.0)
[2023-08-18 12:41] LABS: Alanine Aminotransferase 92 U/L (6-50); Albumin Level 3.9 g/dL (3.5-5.1); Alkaline Phosphatase 321 U/L (38-126); Anion Gap 13 mmol/L (4-12); Aspartate Amino Transferase 42 U/L (17-59); Bilirubin,Total 0.5 mg/dL (0.2-1.3); Blood Urea Nitrogen 49 mg/dL (9-20); Calcium 7.8 mg/dL (8.4-10.2); Carbon Dioxide 24 mmol/L (22-30); Chloride 97 mmol/L (98-107); Estimated Glomerular Filt Rate 4; Glucose 99 mg/dL (65-110); Potassium 3.3 mmol/L (3.4-5.0); Sodium 134 mmol/L (137-145)
== END 2023-08-18 12:13 | disposition home or self-care (01) ==
LOC: ANHLAB 12:14
PROVIDERS: PCP Nurse Practitioner Family; Visit Provider Nurse Practitioner Family
DX: R60.9 Edema, unspecified (principal); E53.8 Deficiency of other specified B group vitamins; N18.6 End stage renal disease
CPT/HCPCS: 36415; 80053; 85025

== ENCOUNTER 2023-09-27 13:51 | Inpatient (IN) | payer MEDICARE, MEDICAID, SELFPAY ==
[2023-09-27] VITALS (21 sets, daily range): BP systolic 63–113; BP diastolic 45–85; PULSE 83–102; RESP 16–27; TEMP 36.4–36.9; O2SAT 96–100; BMI 33.5
--- NOTE | ~2023-09-27 | CT_ITS ---
EXAMINATION: CT chest abdomen pelvis wo con DATE: 09/27/2023 16:39 INDICATION: Sepsis. TECHNIQUE: Computed tomography (CT) of the chest, abdomen, and pelvis was performed without intraveno us contrast. Automated exposure control and iterative reconstruction technique were employed. The dos e-length product was 1410.53 mGy-cm. COMPARISON: Lumbar spine MRI 09/21/2022 FINDINGS: CHEST CT: The lungs demonstrate minimal atelectasis. No pleural effusion. There is a 6 mm nodule in right lower lobe. There is a 5 mm nodule in right lower lobe. No pleural effusion. The heart size is normal. The re are coronary artery calcifications. No pericardial effusion. There is mild thoracic spondylosis. ABDOMEN/PELVIS CT: The liver is normal. The gallbladder is distended. The spleen, pancreas, and left adrenal gland are n ormal. There is a 13 mm mass in right adrenal gland, stable from 09/21/2022, likely an adenoma. There is moderate atrophy of the kidneys. A peritoneal dialysis catheter is noted. There is a large volume of ascites. There are no dilated loops of bowel. The appendix is not visualized. There is calcified a therosclerosis of the aorta and many of the other arteries. There are no pathologically enlarged lymp h nodes. There is mild lumbar spondylosis. IMPRESSION: 1. Pulmonary nodules measuring up to 6 mm, probably benign. Consider noncontrast low-dose chest CT in 6-12 months. Reviewed, dictated and finalized at location A. IMPRESSION: 1. Pulmonary nodules measuring up to 6 mm, probably benign. Consider noncontras t low-dose chest CT in 6-12 months.
--- NOTE | ~2023-09-27 | CT_ITS ---
EXAMINATION: CT brain wo con DATE: 09/27/2023 22:34 INDICATION: abnormal movements . TECHNIQUE: Computed tomography (CT) of the head was performed without intravenous contrast. The mA wa s adjusted according to patient size. Iterative reconstruction technique was employed. The dose-lengt h product was 605.33 mGy-cm. COMPARISON: None. FINDINGS: No acute intracranial hemorrhage or extra-axial fluid collection. No hydrocephalus, mass, or herniation. No acute ischemic infarct. Unremarkable dural venous sinus attenuation. No acute osseous abnormality. Pansinus mucosal thickening, the remaining aerated spaces are clear. Mild atrophy and chronic white matter change. Atherosclerotic intracranial calcification. Bilateral b yoshi ganglia calcification. Right lens replacement. IMPRESSION: No acute intracranial process. Reviewed, dictated and finalized at location K.
--- NOTE | ~2023-09-27 | XR_ITS ---
EXAMINATION: XR chest 1V portable DATE: 09/27/2023 14:46 INDICATION: Near syncope. TECHNIQUE: A single frontal view of the chest was obtained. COMPARISON: Chest 2 views 11/02/2022 FINDINGS: There is mild atelectasis in the lower lung zones. No pleural effusion or pneumothorax. The heart size is normal. IMPRESSION: 1. Mild atelectasis in the lower lung zones. Reviewed, dictated and finalized at location A.
--- NOTE | 2023-09-27 14:15 | ECG_ITS ---
Test Date: 2023-09-27 14:18:52 Measurements Intervals [place] Rate: 88 P: 40 OR: 196 QRS: 26 QRSD: 122 T: 79 QT: 367 QTc: 446 Interpretive Statements SINUS RHYTHM INCOMPLETE LEFT BUNDLE BRANCH BLOCK ABNORMAL ECG No previous ECG available for comparison Electronically Signed On 09-27-2023 17:17:30 CDT by Milo Clinton M.D.
[2023-09-27] MEDS: SODIUM CHLORIDE 0.9% IV 2,000 ML 999 ML IV CONT (15:03)
[2023-09-27 15:16] LABS: Basophils Absolute Auto 0.1 K/mm3 (0.0-0.1); Basophils Percent Auto 0.5 % (0.2-1.2); Eosinophils Absolute Auto 0.3 K/mm3 (0-0.3); Eosinophils Percent Auto 2.4 % (0-4.4); Hematocrit 47.9 % (42.0-52.0); Hemoglobin 16.3 g/dL (14.0-18.0); Immature Granulocyte Absolute 0.18 K/mm3 (0.00-0.031); Immature Granulocyte Percent A 1.3 % (0-0.5); Lymphocytes Absolute Auto 2.15 K/mm3 (0.9-3.2); Lymphocytes Percent Auto 15.2 % (18.3-44.2); Mean Corpuscular Hemoglobin 33.2 pg (26-34); Mean Corpuscular Volume 97.6 fl (80-100); Mean Platelet Volume 9.4 fl (7.4-10.4); Monocytes Absolute Auto 1.6 K/mm3 (0.1-0.6); Neutrophils Absolute Auto 9.8 K/mm3 (1.3-6.7); Neutrophils Percent Auto 69.6 % (45.5-73.1); Nucleated Red Blood Cells Perc 0.1 % (0.0-0.2); Platelet Count Result 467 k/mm3 (150-375); Red Blood Count 4.91 M/mm3 (4.6-6.20); Red Cell Distribution Width 14.9 % (11.5-14.5); White Blood Count 14.1 K/mm3 (4.5-10.0)
[2023-09-27 15:25] LABS: Prothrombin Time 13.6 Seconds (11.1-14.7)
[2023-09-27 15:26] LABS: Partial Thromboplastin Time 30.4 Seconds (22.3-36.8)
[2023-09-27 15:29] LABS: Lactic Acid Reflex 3.3 mmol/L (0.7-2.0); Magnesium 2.1 mg/dL (1.6-2.3)
[2023-09-27 15:33] LABS: CRP < 0.5 mg/dL (<1.0)
[2023-09-27 15:57] LABS: Influenza A QL RT-PCR Negative (Negative); Influenza B QL RT-PCR Negative (Negative); RSV RNA, RT-PCR Negative (Negative); SARS-CoV-2 RNA PCR Negative (Negative)
[2023-09-27 16:08] LABS: Alanine Aminotransferase 37 U/L (6-50); Albumin Level 5.2 g/dL (3.5-5.1); Alkaline Phosphatase 182 U/L (38-126); Anion Gap 31 mmol/L (4-12); Aspartate Amino Transferase 35 U/L (17-59); Blood Urea Nitrogen 65 mg/dL (9-20); Calcium 9.5 mg/dL (8.4-10.2); Carbon Dioxide 16 mmol/L (22-30); Chloride 88 mmol/L (98-107); Estimated CRCL calculation 6 ml/min; Estimated Glomerular Filt Rate 3; Glucose 130 mg/dL (65-110); Potassium 3.5 mmol/L (3.4-5.0); Sodium 135 mmol/L (137-145)
--- NOTE | 2023-09-27 17:04 | ED.WEAKNESS ---
HPI - Weakness General Chief complaint: Weakness Stated complaint: weakness Time Seen by Provider: 09/27/23 14:39 Source: patient and EMS Mode of arrival: EMS Limitations: no limitations History of Present Illness HPI Narrative: This is a 53-year-old male, with history of stage 4 kidney disease on peritoneal dialysis, who presents to the emergency department complaining of generalized weakness since Wednesday. He states he has had couple episodes of nonbloody diarrhea and felt generally weak without focal deficits. He denies fevers, chest pain, shortness of breath or known sick contacts. He states he has intermittent body spasms that are exacerbated with sitting up. He has no other complaints at this time. Related Data Home Medications Medication Instructions Recorded Confirmed calcium acetate 667 mg tablet 2,668 mg PO TIDWMEAL 08/31/22 09/02/23 furosemide 80 mg tablet 80 mg PO QAM 08/31/22 09/02/23 gentamicin 0.1 % topical cream 1 applic topical TID PRN DIALYSIS 08/31/22 09/02/23 CATH. labetalol 200 mg tablet 200 mg PO BID 04/01/23 09/02/23 lanthanum 1,000 mg chewable tablet 1,000 mg PO TIDWM 04/01/23 09/02/23 calcium carbonate (Tums) 200 mg PO DAILY 07/20/23 09/02/23 cinacalcet 30 mg tablet 90 mg PO DAILY 07/20/23 09/02/23 lisinopril 20 mg tablet 20 mg PO DAILY 07/20/23 09/02/23 melatonin 10 mg capsule 20 mg PO QHS 07/20/23 09/02/23 ondansetron 4 mg disintegrating 4 mg PO Q8H PRN 07/20/23 09/02/23 tablet multivitamin 1 tablet PO DAILY 07/29/23 09/02/23 Allergies Allergy/AdvReac Type Severity Reaction Status Date / Time No Known Allergies Allergy Verified 09/27/23 13:53 Review of Systems Review of Systems: All systems reviewed & are unremarkable except as noted in HPI and below PMFSH Past Medical History Medical History End stage kidney disease HTN (hypertension) Polyneuropathy Vitamin D3 deficiency Social History Social History Smoking packs per day: 0.5 Smoking cigarettes per day: 10.0 Years smoked: 20 Smoking pack-years: 10.00 Smoking status: Current some day smoker Tobacco type: cigarettes Alcohol intake: never Alcohol use details: rarely Substance use: current Substance use type: marijuana Other substance usage details: OCCASIONAL Lack of Transportation: No Lack of Food: Sometimes True Current Housing: I Have Housing Concerned About Future Housing: No Difficulty Paying Gas/Electric Bills: No Difficulty Paying for Meds: No Currently Unemployed: YES Education: Bachelor's Degree Difficulty w/ Childcare or Family Care: No Living arrangements: with family Spiritual care concerns: No Exam Narrative: GENERAL: Well-developed, well-nourished, and in no acute distress. Diaphoretic HEAD: Normocephalic, atraumatic. EYES: PERRLA and EOMI. ENT: Nares clear, no rhinorrhea or epistaxis. Mucous membranes moist. Oropharynx without tonsillar hypertrophy exudate or other lesions. NECK: Supple. No JVD CHEST: Clear to auscultation. No respiratory distress. No wheezes rales or rhonchi HEART: Regular rate and rhythm. No murmur heard. Normal peripheral pulses. ABDOMEN: Soft, nontender, nondistended, normal active bowel sounds. EXTREMITIES: Normal range of motion. No edema. SKIN: Warm, dry, no rash. NEURO: Alert and oriented x3. No focal deficit. Moving all 4 limbs spontaneously PSYCH: Normal mood and affect. Course Course Emergency Course: 14:50 - I have a strong suspicion for sepsis. Source unclear. Will treat with vanc and cefepime. Considering the patient's history of renal failure, will give IV fluids judiciously and reassess. 17:00 - Blood pressure improved to 111/85 after 2 L of IV fluids. Heart rate decreased to 90 from 100. White blood cell count elevated at 14.1. Hemoglobin and platelet count also elevated with lymphocytopenia. Chemistries
[2023-09-27] MEDS: CEFEPIME 1 GM/NS 50 ML 1 GM/50 ML BAG IVPB (17:25)
--- NOTE | 2023-09-27 17:27 | PM.IMHP ---
H&P: HPI History of Present Illness Date/Time: 09/27/23 17:27 Chief Complaint: Generalized weakness Narrative: This is a 53-year-old male with history of stage 4 kidney disease on peritoneal dialysis presents to the ED with complaining of generalized weakness since past week or so. He reports that he has been having jerking movements since his medications were added by his neurologist. Also has been having diarrhea she is short of chronic 4-5 episodes Patient reported couple episode of nonbloody diarrhea and had been feeling weak since then. No fever chills no chest pain or shortness of breath no cough. Patient has been doing peritoneal dialysis regularly. In the ED patient was noted to be hypotensive in 60s systolic. Afebrile. Patient received 2 L IV fluids with improvement in his blood pressure. Lactic acid was elevated at 3.3. Hemoglobin 16.3 hematocrit 468 WBC count of 14.1. Chem panel showed BUN of 65 and creatinine of 16.3 with anion gap metabolic acidosis. Blood sugar was 130. Influenza RSV COVID swab was negative. CRP less than 0.5 magnesium 2.1 LFTs with elevated alkaline phosphatase is 182. Urinalysis has not been obtained yet. Patient make small amount of urine historically. Chest x-ray with mild bilateral atelectasis but no abnormality otherwise. Chest abdomen pelvis CT was done which showed ascites and bilateral lung nodules without other obvious changes concerning for infection. Gallbladder is distended. 13 mm mass in the right adrenal gland stable from 09/21/2022 likely an adenoma. Ascites fluid tap dialysis planned. He received vancomycin dose and cefepime for possible sepsis and is admitted for further treatment. He Reports Weakness for past few weeks. He has been following with neurologist and recently was started on some new medications. Per records she was started on Cymbalta and stopped nortriptyline. He also continues to take gabapentin. Review of Systems Review of Systems: - CONSTITUTIONAL: Denies weight loss, fever and chills. - HEENT: Denies changes in vision and hearing - RESPIRATORY: Denies SOB and cough. - CV: Denies palpitations and CP. - GI: Denies abdominal pain, nausea, vomiting and reports chronic diarrhea. - : Denies dysuria and urinary frequency. - MSK: Denies myalgia and joint pain. - SKIN: Denies rash and pruritus. - NEUROLOGICAL: Denies headache and syncope. Reports some jerking movements - PSYCHIATRIC: Denies recent changes in mood. Denies anxiety and depression. [facility] Past Medical History Medical History End stage kidney disease HTN (hypertension) Polyneuropathy Vitamin D3 deficiency Social History Social History Smoking packs per day: 0.5 Smoking cigarettes per day: 10.0 Years smoked: 20 Smoking pack-years: 10.00 Smoking status: Current every day smoker Tobacco type: cigarettes Alcohol intake: never Alcohol use details: rarely Substance use: never Substance use type: marijuana Other substance usage details: OCCASIONAL Do You Feel Safe in your Home?: Yes Lack of Transportation: No Lack of Food: Never True Current Housing: I Have Housing Concerned About Future Housing: No Difficulty Paying Gas/Electric Bills: No Difficulty Paying for Meds: No Currently Unemployed: No Education: Master's Degree or Higher Difficulty w/ Childcare or Family Care: No Living arrangements: with family Spiritual care concerns: No Meds Home Medications and Allergies Home Medications Medication Instructions Recorded Confirmed Type calcium acetate 667 mg tablet 2,668 mg PO TIDWMEAL 08/31/22 09/02/23 History furosemide 80 mg tablet 80 mg PO QAM 08/31/22 09/02/23 History gentamicin 0.1 % topical cream 1 applic topical TID PRN DIALYSIS 08/31/22 09/02/23 History CATH. labetalol 200 mg tablet 200 mg PO BID 04/01
[2023-09-27 17:32] LABS: Estimated CRCL calculation 6 ml/min; Estimated Glomerular Filt Rate 3
[2023-09-27] MEDS: VANCOMYCIN 1,750 MG/NS 500 ML 1,750 MG/500 ML BAG 250 MG IVPB (18:02)
[2023-09-27 18:10] LABS: Reflex Lactic Acid Yes or No Add Lactic
[2023-09-27 19:02] LABS: Anion Gap 24 mmol/L (4-12); Blood Urea Nitrogen 65 mg/dL (9-20); Calcium 8.9 mg/dL (8.4-10.2); Carbon Dioxide 17 mmol/L (22-30); Chloride 94 mmol/L (98-107); Estimated CRCL calculation 6 ml/min; Estimated Glomerular Filt Rate 3; Glucose 114 mg/dL (65-110); Potassium 3.5 mmol/L (3.4-5.0); Sodium 135 mmol/L (137-145)
--- NOTE | 2023-09-27 20:48 | ADMGEN ---
This patient, Real Rolon, was admitted to IMU Room 203-01. Patient/family oriented to hospital policies and general routines including ID bracelet, bed and alarms, visiting hours, pain management, procedures, bathroom and other care routines, personal items, smoking policy, room service/diet, and visiting hours. Information on how to activate the Rapid Response Team has been discussed. Patient/Family are encouraged to report perceived risks to care and to ask questions if they do not understand what they are told or what they should do.
[2023-09-27] MEDS: HEPARIN SODIUM 5,000 UNITS/ML VIAL 5000 UNITS SUB-Q (22:48)
[2023-09-28] VITALS (12 sets, daily range): BP systolic 89–121; BP diastolic 61–86; PULSE 92–106; RESP 16–22; TEMP 35.7–36.5; O2SAT 95–100; BMI 33.5
[2023-09-28 01:28] LABS: Appearance Peritoneal Fluid Clear (Clear); Color Peritoneal Fluid Colorless (Colorless); Nucleated Cells Peritoneal Flu 38 /uL (0-500); Source Peritoneal Fluid Peritoneal Fluid
[2023-09-28 01:29] LABS: Lymphocytes Peritoneal Fluid 18 %; Macrophages Peritoneal Fluid 40 %; Mesothelial Cells Peritoneal Fluid 6 %; Monocytes Peritoneal Fluid 31 %; Neutrophils Peritoneal Fluid 5 % (0-25)
[2023-09-28 04:47] LABS: Basophils Absolute Auto 0.1 K/mm3 (0.0-0.1); Basophils Percent Auto 0.5 % (0.2-1.2); Eosinophils Absolute Auto 0.3 K/mm3 (0-0.3); Hematocrit 45.4 % (42.0-52.0); Hemoglobin 14.7 g/dL (14.0-18.0); Immature Granulocyte Absolute 0.11 K/mm3 (0.00-0.031); Immature Granulocyte Percent A 0.7 % (0-0.5); Lymphocytes Absolute Auto 2.58 K/mm3 (0.9-3.2); Lymphocytes Percent Auto 15.8 % (18.3-44.2); Mean Corpuscular HGB Conc 32.4 g/dl (32-36); Mean Corpuscular Hemoglobin 32.5 pg (26-34); Mean Corpuscular Volume 100.2 fl (80-100); Mean Platelet Volume 9.3 fl (7.4-10.4); Monocytes Absolute Auto 1.6 K/mm3 (0.1-0.6); Monocytes Percent Auto 9.7 % (2.6-8.5); Neutrophils Absolute Auto 11.7 K/mm3 (1.3-6.7); Neutrophils Percent Auto 71.3 % (45.5-73.1); Platelet Count Result 405 k/mm3 (150-375); Red Blood Count 4.53 M/mm3 (4.6-6.20); Red Cell Distribution Width 14.6 % (11.5-14.5); White Blood Count 16.3 K/mm3 (4.5-10.0)
[2023-09-28 05:20] LABS: Anion Gap 24 mmol/L (4-12); Blood Urea Nitrogen 70 mg/dL (9-20); Calcium 8.6 mg/dL (8.4-10.2); Carbon Dioxide 18 mmol/L (22-30); Chloride 93 mmol/L (98-107); Estimated CRCL calculation 6 ml/min; Estimated Glomerular Filt Rate 3; Glucose 93 mg/dL (65-110); Potassium 3.2 mmol/L (3.4-5.0); Sodium 135 mmol/L (137-145)
[2023-09-28 07:26] LABS: RBC Peritoneal Fluid < 2000 /uL (0-10000)
[2023-09-28] MEDS: HEPARIN SODIUM 5,000 UNITS/ML VIAL 5000 UNITS SUB-Q ×2 (08:16→20:39)
--- NOTE | 2023-09-28 08:50 | P.PNIM_ITS ---
Progress Note: A&P Assessment and Plan (1) End stage kidney disease: Code(s): N18.6 - End stage renal disease Status: Acute (2) HTN (hypertension): Code(s): I10 - Essential (primary) hypertension Status: Acute (3) Vitamin D3 deficiency: Code(s): E55.9 - Vitamin D deficiency, unspecified Status: Acute (4) Sepsis: Qualifiers: Sepsis acute organ dysfunction status: unspecified Sepsis type: sepsis due to unspecified organism Qualified Code(s): A41.9 - Sepsis, unspecified organism Code(s): A41.9 - Sepsis, unspecified organism Status: Acute (5) Diarrhea: Code(s): R19.7 - Diarrhea, unspecified Status: Acute Plan Sepsis without septic shock * Hypotensive, tachypnea and tachycardia, lactic acidosis POA * IV fluid resuscitation. 2L in ED BP responded well * Unclear source of infection * CXR with atelectasis/Ascites * Ascites tap negative for infection * Culture of dialysis site * stool cultures and C-diff pending * empiric IV antibiotic therapy Vanc and cefepime * Monitor lactic acid levels q6hr. Trending down 3.3 POA * Two sets of blood cultures pending * urine cultures?. Uremic * C-reactive proteins * procalcitonin level. * PTT and PT, INR. * TTE if indicated. Pending Blood cultures * Monitor albumin, monitoring of mental status. ESRD * On peritoneal dialysis * nephrology consulted * Avoid nephrotoxic drugs. * Monitor antihypertensive drug therapy. * Monitor electrolytes and replenish as needed * Avoid NSAIDs. * Routine CMP monitoring GFR. * Monitor electrolytes especially potassium. * Antibiotic doses depending on creatinine clearance. * Pharmacy does medications. * Cr 16.3 POA * Hemodialysis? Hypertension * was severely hypotensive on admission * holding BP medication can resume as BP rebounds Diarrhea * Stool Cultures pending * C-diff pending HX of vitamin D: resume supplement HX neuropathy: Resume gabapentin discontinued Cymbalta due to patient reported side effects Code status: Full code per patient DVT prophylaxis: Heparin Stress ulcer prophylaxis: Protonix 40 daily PT/OT notes: Patient is ambulatory on Disposition: Patient was admitted to IMU due to sepsis with hypotension unknown source of infection at this time hypotension improved with fluid resuscitation. Patient peritoneal dialysis nephrology consulted. Patient is ambulatory on own plan for discharge to home when medically stable. Time Spent With Patient Time with patient: 15 - 25 minutes Subjective Date/time seen: 09/28/23 08:50 Interval history: Admission: This is a 53-year-old male with history of stage 4 kidney disease on peritoneal dialysis presents to the ED with complaining of generalized weakness since past week or so. He reports that he has been having jerking movements since his medications were added by his neurologist. Also has been having diarrhea she is short of chronic 4-5 episodes Patient reported couple episode of nonbloody diarrhea and had been feeling weak since then. No fever chills no chest pain or shortness of breath no cough. Patient has been doing peritoneal dialysis regularly. In the ED patient was noted to be hypotensive in 60s systolic. Afebrile. Patient received 2 L IV fluids with improvement in his blood pressure. Lactic acid was elevated at 3.3. Hemoglobin 16.3 hematocrit 468 WBC count of 14.1. Chem panel showed BUN of 65 and creatinine of 16.3 with
--- NOTE | 2023-09-28 08:50 | PM.IMPN ---
Progress Note: A&P Assessment and Plan (1) End stage kidney disease: Code(s): N18.6 - End stage renal disease Status: Acute (2) HTN (hypertension): Code(s): I10 - Essential (primary) hypertension Status: Acute (3) Vitamin D3 deficiency: Code(s): E55.9 - Vitamin D deficiency, unspecified Status: Acute (4) Sepsis: Qualifiers: Sepsis acute organ dysfunction status: unspecified Sepsis type: sepsis due to unspecified organism Qualified Code(s): A41.9 - Sepsis, unspecified organism Code(s): A41.9 - Sepsis, unspecified organism Status: Acute (5) Diarrhea: Code(s): R19.7 - Diarrhea, unspecified Status: Acute Plan Sepsis without septic shock Hypotensive, tachypnea and tachycardia, lactic acidosis POA IV fluid resuscitation. 2L in ED BP responded well Unclear source of infection CXR with atelectasis/Ascites Ascites tap negative for infection Culture of dialysis site stool cultures and C-diff pending empiric IV antibiotic therapy Vanc and cefepime Monitor lactic acid levels q6hr. Trending down 3.3 POA Two sets of blood cultures pending urine cultures?. Uremic C-reactive proteins procalcitonin level. PTT and PT, INR. TTE if indicated. Pending Blood cultures Monitor albumin, monitoring of mental status. ESRD On peritoneal dialysis nephrology consulted Avoid nephrotoxic drugs. Monitor antihypertensive drug therapy. Monitor electrolytes and replenish as needed Avoid NSAIDs. Routine CMP monitoring GFR. Monitor electrolytes especially potassium. Antibiotic doses depending on creatinine clearance. Pharmacy does medications. Cr 16.3 POA Hemodialysis? Hypertension was severely hypotensive on admission holding BP medication can resume as BP rebounds Diarrhea Stool Cultures pending C-diff pending HX of vitamin D: resume supplement HX neuropathy: Resume gabapentin discontinued Cymbalta due to patient reported side effects Code status: Full code per patient DVT prophylaxis: Heparin Stress ulcer prophylaxis: Protonix 40 daily PT/OT notes: Patient is ambulatory on Disposition: Patient was admitted to IMU due to sepsis with hypotension unknown source of infection at this time hypotension improved with fluid resuscitation. Patient peritoneal dialysis nephrology consulted. Patient is ambulatory on own plan for discharge to home when medically stable. Time Spent With Patient Time with patient: 15 - 25 minutes Subjective Date/time seen: 09/28/23 08:50 Interval history: Admission: This is a 53-year-old male with history of stage 4 kidney disease on peritoneal dialysis presents to the ED with complaining of generalized weakness since past week or so. He reports that he has been having jerking movements since his medications were added by his neurologist. Also has been having diarrhea she is short of chronic 4-5 episodes Patient reported couple episode of nonbloody diarrhea and had been feeling weak since then. No fever chills no chest pain or shortness of breath no cough. Patient has been doing peritoneal dialysis regularly. In the ED patient was noted to be hypotensive in 60s systolic. Afebrile. Patient received 2 L IV fluids with improvement in his blood pressure. Lactic acid was elevated at 3.3. Hemoglobin 16.3 hematocrit 468 WBC count of 14.1. Chem panel showed BUN of 65 and creatinine of 16.3 with anion gap metabolic acidosis. Blood sugar was 130. Influenza RSV COVID swab was negative. CRP less than 0.5 magnesium 2.1 LFTs with elevated alkaline phosphatase is 182. Urinalysis has not been obtained yet. Patient make small amount of urine historically. Chest x-ray with mild bilateral atelectasis but no abnormality otherwise. Chest abdomen pelvis CT was done which showed ascites and bilateral lung nodules without other obvious changes concerning for infection.
--- NOTE | 2023-09-28 09:59 | PC.NURSE ---
RN at bedside clarifying home medication. LABOR CUSTODIAN entered room during this process. Orders entered or changed during this time by RN were received from Ya Torres NP
[2023-09-28] MEDS: CINACALCET 30 MG TABLET 90 MG PO (10:06)
[2023-09-28 10:12] LABS: Creatine Kinase 158 U/L (55-170)
[2023-09-28] MEDS: GABAPENTIN 300 MG CAPSULE PO ×3 (10:20→17:05)
[2023-09-28] MEDS: busPIRone HCL 10 MG TABLET PO ×3 (10:20→17:05)
[2023-09-28] MEDS: MULTIVITAMINS THERAPEUTIC TAB (*BKC) 1 TABLET PO (10:20)
[2023-09-28] MEDS: PANTOPRAZOLE 40 MG TABLET PO (10:20)
--- NOTE | 2023-09-28 10:45 | PM.CNNEP ---
Assessment and Plan Assessment and plan (1) End stage renal disease: Code(s): N18.6 - End stage renal disease Status: Chronic Assessment and Plan: resume CCPD this evening given #2, minimize fluid removal follow electrolytes, volume status, and clearance (2) Hypotension: Code(s): I95.9 - Hypotension, unspecified Status: Acute Assessment and Plan: quite severe on presentation responded well to IVF resuscitation concern is possible sepsis (see #3) follow trend of hemodynamics (3) Sepsis: Qualifiers: Sepsis acute organ dysfunction status: unspecified Sepsis type: sepsis due to unspecified organism Qualified Code(s): A41.9 - Sepsis, unspecified organism Code(s): A41.9 - Sepsis, unspecified organism Status: Acute Assessment and Plan: as suggested by admission with hypotension, tachypnea, tachycardia and lactic acidosis source of infection not clear CXR negative checking PD fluid to r/o peritonitis (but no clinical symptoms) does have diarrhea -- stool studies ordered follow culture data empirically on antibiotics (4) Diarrhea: Code(s): R19.7 - Diarrhea, unspecified Status: Acute Assessment and Plan: stool culture pending C. diff toxin assay pending follow clinical symptoms (5) HTN (hypertension): Code(s): I10 - Essential (primary) hypertension Status: Chronic Assessment and Plan: despite known history, low BP on presentation BP medications on hold for now follow trend of hemodynamics I will continue to follow the patient with you while he remains hospitalized and make further recommendations as deemed necessary. Thank you for allowing me to participate in the care of this patient. History of Present Illness Reason for Consult Consult date: 09/28/23 Reason for consult: end stage renal disease Chief Complaint Chief complaint: Sepsis History of Present Illness Narrative: The patient is a 53-year-old male with a past medical history as outlined below who presented to [facility] Emergency with complaints of generalized weakness. The patient reports that he has had generalized weakness and fatigue for the past week if not longer. Further complicating matter is that he has had jerking movements in his extremities which is a new finding. He also reports diarrhea of the least 4-5 episodes in a day in that same time frame as well. The diarrhea is nonbloody but persistent in general. He denies any overt fevers, chills, nausea, vomiting, chest pain, or shortness of breath. Because of the persistence of the symptoms, he came to the emergency room for further assessment. Workup and evaluation emergency room demonstrated the patient be quite hypotensive in the 60 systolic. He was otherwise afebrile and in no acute distress. He received aggressive IV fluid resuscitation in the emergency room of at least 2 L normal saline with improvement in his blood pressure. Routine blood tests were done which were consistent with his known history of end-stage renal disease although he was noted to have a elevated hemoglobin of 16.3 and a mildly elevated white blood count of 14.1 with a lactic acid of 3.3. Influenza/ RSV/ COVID testing was negative and his chest x-ray showed mild bilateral atelectasis with no other abnormalities noted. Given his history of diarrhea in association with his hypotension, a CT scan of the abdomen pelvis as well as chest was done which only showed ascites consistent with his peritoneal dialysis as well as bilateral lung nodules that did not appear to be any different than previous findings and was negative for infection. Given the concerns for possible sepsis, appropriate cultures were obtained and he was started on IV antibiotic therapy. Since his admission, his blood pressure has improved with IV fluid resuscitation as well as holding his antihypertensive medications.
[2023-09-28 11:38] LABS: Toxigenic C. Diff NEGATIVE (NEGATIVE)
[2023-09-28 11:51] LABS: Hepatitis B Surface Antigen Negative (Negative)
[2023-09-28 12:09] LABS: Hepatitis B Surface Anti Res Negative
[2023-09-28] MEDS: CALCIUM ACETATE 667 MG TABLET 2668 MG PO ×2 (13:01→17:05)
[2023-09-28] MEDS: ERGOCALCIFEROL 50,000 UNITS CAPSULE 50000 UNITS PO (13:03)
[2023-09-28] MEDS: DIPHENOXYLATE/ATROPINE (*CRX) 2.5 MG TABLET 1 TABLET PO (13:03)
[2023-09-28] MEDS: POTASSIUM CHLORIDE 20 MEQ ER TABLET 40 MEQ PO (13:03)
--- NOTE | 2023-09-28 15:33 | PCPTNOTE ---
On 09/28/23, the student, [Mary Nowak], provided care and completed [facility] documentation on this patient. I have reviewed the student's documentation and agree with the findings.
--- NOTE | 2023-09-28 15:52 | PC.NURSE ---
This patient, Real Rolon, was transferred to [[id number] ] on 09/28/23 at 1552. Personal belongings sent with patient. Report given to [CHIKA Barger @ [phone] ]. Appropriate documentation sent with patient.
[2023-09-28] MEDS: CEFEPIME 1 GM/NS 50 ML 1 GM/50 ML BAG IVPB (18:58)
[2023-09-28] MEDS: CALCIUM CARBONATE (TUMS) 500 MG (200 MG ELEMENTAL) PO (20:38)
[2023-09-28] MEDS: NORTRIPTYLINE HCL 25 MG CAPSULE 50 MG PO (20:38)
[2023-09-28] MEDS: MELATONIN 5 MG TABLET 20 MG PO (20:39)
--- NOTE | 2023-09-28 21:29 | PHAR ---
Drug Name: Awa Ingredients: Ferric Citrate -- 1 GM (210MG OF FERRIC IRON) Related Documents: DRUGDEX Evaluations - IRON Color: Light [place] Shape: Oval Imprint: [id number] Form: Oral Tablet
[2023-09-29] VITALS (10 sets, daily range): BP systolic 110–143; BP diastolic 75–91; PULSE 83–103; RESP 18–20; TEMP 36–36.5; O2SAT 94–97
[2023-09-29 06:35] LABS: Hematocrit 35.9 % (42.0-52.0); Hemoglobin 11.7 g/dL (14.0-18.0); Mean Corpuscular HGB Conc 32.6 g/dl (32-36); Mean Corpuscular Hemoglobin 32.1 pg (26-34); Mean Corpuscular Volume 98.6 fl (80-100); Mean Platelet Volume 9.2 fl (7.4-10.4); Platelet Count Result 343 k/mm3 (150-375); Red Blood Count 3.64 M/mm3 (4.6-6.20); Red Cell Distribution Width 14.2 % (11.5-14.5); White Blood Count 12.6 K/mm3 (4.5-10.0)
[2023-09-29 07:03] LABS: Alanine Aminotransferase 27 U/L (6-50); Albumin Level 3.8 g/dL (3.5-5.1); Alkaline Phosphatase 124 U/L (38-126); Anion Gap 23 mmol/L (4-12); Aspartate Amino Transferase 23 U/L (17-59); Bilirubin,Total 0.6 mg/dL (0.2-1.3); Blood Urea Nitrogen 71 mg/dL (9-20); Calcium 8.1 mg/dL (8.4-10.2); Carbon Dioxide 16 mmol/L (22-30); Chloride 92 mmol/L (98-107); Estimated CRCL calculation 6 ml/min; Estimated Glomerular Filt Rate 3; Glucose 85 mg/dL (65-110); Magnesium 1.6 mg/dL (1.6-2.3); Sodium 131 mmol/L (137-145)
--- NOTE | 2023-09-29 08:02 | P.PNIM_ITS ---
Progress Note: A&P Assessment and Plan (1) End stage kidney disease: Code(s): N18.6 - End stage renal disease Status: Acute (2) HTN (hypertension): Code(s): I10 - Essential (primary) hypertension Status: Acute (3) Vitamin D3 deficiency: Code(s): E55.9 - Vitamin D deficiency, unspecified Status: Acute (4) Sepsis: Qualifiers: Sepsis acute organ dysfunction status: unspecified Sepsis type: sepsis due to unspecified organism Qualified Code(s): A41.9 - Sepsis, unspecified organism Code(s): A41.9 - Sepsis, unspecified organism Status: Acute (5) Diarrhea: Code(s): R19.7 - Diarrhea, unspecified Status: Acute Plan Sepsis without septic shock * Hypotensive, tachypnea and tachycardia, lactic acidosis POA * IV fluid resuscitation. 2L in ED BP responded well * Unclear source of infection * CXR with atelectasis/Ascites * Ascites tap negative for infection * Culture of dialysis site * stool cultures and C-diff pending * empiric IV antibiotic therapy Vanc and cefepime * Monitor lactic acid levels q6hr. Trending down 3.3 POA * Two sets of blood cultures pending * urine cultures?. Uremic * C-reactive proteins * procalcitonin level. * PTT and PT, INR. * TTE if indicated. Pending Blood cultures * Monitor albumin, monitoring of mental status. Tremors: * patient reports full body tremors with activity causing him to fall on Wednesday. Tremors worsened over the last few days so he came to be evaluated. * no tremors at rest currently * He follows with Dr. Cerda for peripheral neuropathy. Recently seen on 09/21 and was started on Cymbalta 30 mg BID, continue with Nortriptyline 50 mg and gabapentin 300 mg TID. * Neurology was consulted this admission. They will see him tomorrow. ESRD * On peritoneal dialysis * nephrology consulted * Avoid nephrotoxic drugs. * Monitor antihypertensive drug therapy. * Monitor electrolytes and replenish as needed * Avoid NSAIDs. * Routine CMP monitoring GFR. * Monitor electrolytes especially potassium. * Antibiotic doses depending on creatinine clearance. * Pharmacy does medications. * Cr 16.3 POA Hypertension * was severely hypotensive on admission * holding BP medication can resume as BP rebounds Diarrhea * Stool Cultures pending * C-diff pending HX of vitamin D: resume supplement HX neuropathy: Resume gabapentin, discontinued Cymbalta due to patient reported side effects Code status: Full code per patient DVT prophylaxis: Heparin Stress ulcer prophylaxis: Protonix 40 daily PT/OT notes: Patient is ambulatory on Disposition: Patient was admitted to IMU due to sepsis with hypotension unknown source of infection at this time hypotension improved with fluid resuscitation. Patient peritoneal dialysis nephrology consulted. Patient reports full body tremors causing him to have falls at home. Neurology was consulted. His hypotension has resolved and his leukocytosis has been slowly improving but there is still no clear source of infection. Subjective Date/time seen: 09/29/23 08:02 Interval history: Admission: This is a 53-year-old male with history of stage 4 kidney disease on peritoneal dialysis presents to the ED with complaining of generalized weakness since past week or so. He reports that he has been having jerking movements since his medications were added by his neurologist. Also has been having diarrhea she is short of chron
--- NOTE | 2023-09-29 08:02 | PM.IMPN ---
Progress Note: A&P Assessment and Plan (1) End stage kidney disease: Code(s): N18.6 - End stage renal disease Status: Acute (2) HTN (hypertension): Code(s): I10 - Essential (primary) hypertension Status: Acute (3) Vitamin D3 deficiency: Code(s): E55.9 - Vitamin D deficiency, unspecified Status: Acute (4) Sepsis: Qualifiers: Sepsis acute organ dysfunction status: unspecified Sepsis type: sepsis due to unspecified organism Qualified Code(s): A41.9 - Sepsis, unspecified organism Code(s): A41.9 - Sepsis, unspecified organism Status: Acute (5) Diarrhea: Code(s): R19.7 - Diarrhea, unspecified Status: Acute Plan Sepsis without septic shock Hypotensive, tachypnea and tachycardia, lactic acidosis POA IV fluid resuscitation. 2L in ED BP responded well Unclear source of infection CXR with atelectasis/Ascites Ascites tap negative for infection Culture of dialysis site stool cultures and C-diff pending empiric IV antibiotic therapy Vanc and cefepime Monitor lactic acid levels q6hr. Trending down 3.3 POA Two sets of blood cultures pending urine cultures?. Uremic C-reactive proteins procalcitonin level. PTT and PT, INR. TTE if indicated. Pending Blood cultures Monitor albumin, monitoring of mental status. Tremors: patient reports full body tremors with activity causing him to fall on Wednesday. Tremors worsened over the last few days so he came to be evaluated. no tremors at rest currently He follows with Dr. Cerda for peripheral neuropathy. Recently seen on 09/21 and was started on Cymbalta 30 mg BID, continue with Nortriptyline 50 mg and gabapentin 300 mg TID. Neurology was consulted this admission. They will see him tomorrow. ESRD On peritoneal dialysis nephrology consulted Avoid nephrotoxic drugs. Monitor antihypertensive drug therapy. Monitor electrolytes and replenish as needed Avoid NSAIDs. Routine CMP monitoring GFR. Monitor electrolytes especially potassium. Antibiotic doses depending on creatinine clearance. Pharmacy does medications. Cr 16.3 POA Hypertension was severely hypotensive on admission holding BP medication can resume as BP rebounds Diarrhea Stool Cultures pending C-diff pending HX of vitamin D: resume supplement HX neuropathy: Resume gabapentin, discontinued Cymbalta due to patient reported side effects Code status: Full code per patient DVT prophylaxis: Heparin Stress ulcer prophylaxis: Protonix 40 daily PT/OT notes: Patient is ambulatory on Disposition: Patient was admitted to IMU due to sepsis with hypotension unknown source of infection at this time hypotension improved with fluid resuscitation. Patient peritoneal dialysis nephrology consulted. Patient reports full body tremors causing him to have falls at home. Neurology was consulted. His hypotension has resolved and his leukocytosis has been slowly improving but there is still no clear source of infection. Subjective Date/time seen: 09/29/23 08:02 Interval history: Admission: This is a 53-year-old male with history of stage 4 kidney disease on peritoneal dialysis presents to the ED with complaining of generalized weakness since past week or so. He reports that he has been having jerking movements since his medications were added by his neurologist. Also has been having diarrhea she is short of chronic 4-5 episodes Patient reported couple episode of nonbloody diarrhea and had been feeling weak since then. No fever chills no chest pain or shortness of breath no cough. Patient has been doing peritoneal dialysis regularly. In the ED patient was noted to be hypotensive in 60s systolic. Afebrile. Patient received 2 L IV fluids with improvement in his blood pressure. Lactic acid was elevated at 3.3. Hemoglobin 16.3 hematocrit 468 WBC count of 14.1. Chem panel showed BUN of 65 a
[2023-09-29] MEDS: HEPARIN SODIUM 5,000 UNITS/ML VIAL 5000 UNITS SUB-Q ×2 (10:27→20:02)
[2023-09-29] MEDS: CINACALCET 30 MG TABLET 90 MG PO (10:27)
[2023-09-29] MEDS: CALCIUM ACETATE 667 MG TABLET 2668 MG PO ×3 (10:28→17:54)
[2023-09-29] MEDS: GABAPENTIN 300 MG CAPSULE PO ×3 (10:28→17:54)
[2023-09-29] MEDS: busPIRone HCL 10 MG TABLET PO ×3 (10:28→17:54)
[2023-09-29] MEDS: MULTIVITAMINS THERAPEUTIC TAB (*BKC) 1 TABLET PO (10:28)
[2023-09-29] MEDS: POTASSIUM CHLORIDE 20 MEQ ER TABLET 40 MEQ PO (10:28)
[2023-09-29] MEDS: PANTOPRAZOLE 40 MG TABLET PO (10:29)
--- NOTE | 2023-09-29 14:21 | PM.PNNEP ---
Progress Note: A&P Assessment and Plan (1) End stage renal disease: Code(s): N18.6 - End stage renal disease Status: Chronic Assessment and Plan: continue nightly CCPD treatments follow electrolytes, volume status, and clearance minimize fluid removal given hypotension (2) Hypotension: Code(s): I95.9 - Hypotension, unspecified Status: Acute Assessment and Plan: quite severe on presentation responded well to IVF resuscitation concern is possible sepsis (see #3) follow trend of hemodynamics (3) Sepsis: Qualifiers: Sepsis acute organ dysfunction status: unspecified Sepsis type: sepsis due to unspecified organism Qualified Code(s): A41.9 - Sepsis, unspecified organism Code(s): A41.9 - Sepsis, unspecified organism Status: Acute Assessment and Plan: as suggested by admission with hypotension, tachypnea, tachycardia and lactic acidosis source of infection not clear CXR negative PD fluid negative for peritonitis does have diarrhea -- stool studies results noted follow culture data empirically on antibiotics (4) Diarrhea: Code(s): R19.7 - Diarrhea, unspecified Status: Acute Assessment and Plan: stool culture pending C. diff toxin assay pending follow clinical symptoms (5) HTN (hypertension): Code(s): I10 - Essential (primary) hypertension Status: Chronic Assessment and Plan: despite known history, low BP on presentation BP medications on hold for now follow trend of hemodynamics Will continue to follow. Subjective Date/time seen: 09/29/23 14:21 Interval history: Follow-up for end stage renal disease on peritoneal dialysis. Tolerated CCPD treatment overnight without any issues or problems (overnight PD treatment supervised -- seen at 2:10PM); blood pressure has remained stable since admission; no apprent distress voiced at the time of my visit. Exam Narrative: General: WD/WN male in NAD Heart: normal S1 and S2; no rub Lungs: clear to auscultation Abdomen: soft, nontender, nondistended, positive bowel sounds Extremities: no cyanosis or clubbing; no edema Skin: warm and dry Objective Data Vital Signs Vital Signs: Vital Signs Temp Pulse Resp BP Pulse Ox FiO2 09/29/23 14:00 97 F L 85 20 138/83 97 09/29/23 12:00 87 09/29/23 08:00 103 H 09/29/23 07:50 97.7 F 85 18 110/75 98 09/29/23 06:00 97.7 F 85 18 110/75 94 09/29/23 04:00 90 09/29/23 00:00 90 09/28/23 20:00 92 09/28/23 20:00 97.7 F 94 18 121/78 97 Intake/Output Intake/Output: Intake & Output 09/26/23 09/27/23 09/28/23 09/29/23 23:59 23:59 23:59 23:59 Intake Total 2550 710 1020 Output Total 1061 Balance 2550 710 -41 Meds/Results Medications: Active Medications Generic Name Dose Route Start Last Admin Trade Name Freq PRN Reason Stop Dose Admin Acetaminophen 650 mg 09/27/23 17:35 Acetaminophen 325 Mg Tablet PO Q4H PRN Mild Pain (1-3) or Fever Albuterol 1 puff 09/28/23 08:39 Albuterol Sulfate (*Sp) Aerosol 1 Puff INHALATION Q6HRT PRN shortness of breath or wheezing Buspirone HCl 10 mg 09/28/23 09:00 09/29/23 14:45 Buspirone Hcl 10 Mg Tablet PO 10 mg TID CARIDAD Administration Calcium Acetate 2,668 mg 09/28/23 12:00 09/29/23 14:45 Calcium Acetate 667 Mg Tablet PO 2,668 mg TIDWM CARIDAD Administration Calcium Carbonate 200 mg 09/28/23 10:22 09/28/23 20:38 Calcium Carbonate (Tums) 500 Mg (200 Mg Elemental) PO 200 mg HS PRN Administration Indigestion Cinacalcet 90 mg 09/28/23 09:00 09/29/23 10:27 Cinacalcet 30 Mg Tablet PO 90 mg DAILY CARIDAD Administration Diphenoxylate HCl/Atropine 1 tablet 09/28/23 10:04 09/28/23 13:03 Diphenoxylate/Atropine (*Crx) 2.5 Mg Tablet PO 1 tablet QID PRN Administration diarrhea Ergocalciferol 50
--- NOTE | 2023-09-29 14:21 | P.PNNP_ITS ---
Progress Note: A&P Assessment and Plan (1) End stage renal disease: Code(s): N18.6 - End stage renal disease Status: Chronic Assessment and Plan: * continue nightly CCPD treatments * follow electrolytes, volume status, and clearance * minimize fluid removal given hypotension (2) Hypotension: Code(s): I95.9 - Hypotension, unspecified Status: Acute Assessment and Plan: * quite severe on presentation * responded well to IVF resuscitation * concern is possible sepsis (see #3) * follow trend of hemodynamics (3) Sepsis: Qualifiers: Sepsis acute organ dysfunction status: unspecified Sepsis type: sepsis due to unspecified organism Qualified Code(s): A41.9 - Sepsis, unspecified organism Code(s): A41.9 - Sepsis, unspecified organism Status: Acute Assessment and Plan: * as suggested by admission with hypotension, tachypnea, tachycardia and lactic acidosis * source of infection not clear * CXR negative * PD fluid negative for peritonitis * does have diarrhea -- stool studies results noted * follow culture data * empirically on antibiotics (4) Diarrhea: Code(s): R19.7 - Diarrhea, unspecified Status: Acute Assessment and Plan: * stool culture pending * C. diff toxin assay pending * follow clinical symptoms (5) HTN (hypertension): Code(s): I10 - Essential (primary) hypertension Status: Chronic Assessment and Plan: * despite known history, low BP on presentation * BP medications on hold for now * follow trend of hemodynamics Will continue to follow. Subjective Date/time seen: 09/29/23 14:21 Interval history: Follow-up for end stage renal disease on peritoneal dialysis. Tolerated CCPD treatment overnight without any issues or problems (overnight PD treatment supervised -- seen at 2:10PM); blood pressure has remained stable since admission; no apprent distress voiced at the time of my visit. Exam Narrative: General: WD/WN male in NAD Heart: normal S1 and S2; no rub Lungs: clear to auscultation Abdomen: soft, nontender, nondistended, positive bowel sounds Extremities: no cyanosis or clubbing; no edema Skin: warm and dry Objective Data Vital Signs Vital Signs: Vital Signs Temp Pulse Resp BP Pulse Ox FiO2 09/29/23 14:00 97 F L 85 20 138/83 97 09/29/23 12:00 87 09/29/23 08:00 103 H 09/29/23 07:50 97.7 F 85 18 110/75 98 09/29/23 06:00 97.7 F 85 18 110/75 94 09/29/23 04:00 90 09/29/23 00:00 90 09/28/23 20:00 92 09/28/23 20:00 97.7 F 94 18 121/78 97 Intake/Output Intake/Output: Intake & Output 09/26/23 09/27/23 09/28/23 09/29/23 23:59 23:59 23:59 23:59 Intake Total 2550 710 1020 Output Total 1061 Balance 2550 710 -41 Meds/Results Medications: Active Medications Generic Name Dose Route Start Last Admin Trade Name Mishaq PRN Reason Stop Dose Admin Acetaminophen 650 mg 09/27/23 17:35 Acetaminophen 325 Mg Tablet PO Q4H PRN Mild Pain (1-3) or Fever Albuterol 1 puff 09/28/23 08:39
[2023-09-29] MEDS: CEFEPIME 1 GM/NS 50 ML 1 GM/50 ML BAG IVPB (17:53)
[2023-09-29 18:55] LABS: Vancomycin Random 16.5 ug/mL (10-20)
[2023-09-29 19:16] LABS: Procalcitonin 0.9 ng/mL
[2023-09-29] MEDS: VANCOMYCIN 1,750 MG/NS 500 ML 1,750 MG/500 ML BAG 250 MG IVPB (19:55)
[2023-09-29] MEDS: NORTRIPTYLINE HCL 25 MG CAPSULE 50 MG PO (20:02)
[2023-09-29] MEDS: MELATONIN 5 MG TABLET 20 MG PO (20:02)
[2023-09-29] MEDS: ONDANSETRON HCL ODT 4 MG TABLET PO (20:14)
[2023-09-29] MEDS: CALCIUM CARBONATE (TUMS) 500 MG (200 MG ELEMENTAL) PO (20:14)
[2023-09-30] VITALS (8 sets, daily range): BP systolic 139–143; BP diastolic 83–85; PULSE 80–92; RESP 16–18; TEMP 35.7–36.3; O2SAT 100
[2023-09-30 07:07] LABS: Hematocrit 33.1 % (42.0-52.0); Hemoglobin 10.8 g/dL (14.0-18.0); Mean Corpuscular HGB Conc 32.6 g/dl (32-36); Mean Corpuscular Hemoglobin 32.1 pg (26-34); Mean Corpuscular Volume 98.5 fl (80-100); Mean Platelet Volume 9.2 fl (7.4-10.4); Platelet Count Result 319 k/mm3 (150-375); Red Blood Count 3.36 M/mm3 (4.6-6.20); Red Cell Distribution Width 13.7 % (11.5-14.5); White Blood Count 11.4 K/mm3 (4.5-10.0)
[2023-09-30 07:30] LABS: Alanine Aminotransferase 25 U/L (6-50); Albumin Level 3.4 g/dL (3.5-5.1); Alkaline Phosphatase 114 U/L (38-126); Anion Gap 22 mmol/L (4-12); Aspartate Amino Transferase 25 U/L (17-59); Bilirubin,Total 0.5 mg/dL (0.2-1.3); Blood Urea Nitrogen 67 mg/dL (9-20); Calcium 7.6 mg/dL (8.4-10.2); Carbon Dioxide 17 mmol/L (22-30); Chloride 91 mmol/L (98-107); Estimated CRCL calculation 6 ml/min; Estimated Glomerular Filt Rate 3; Glucose 81 mg/dL (65-110); Magnesium 1.5 mg/dL (1.6-2.3); Potassium 2.9 mmol/L (3.4-5.0); Sodium 130 mmol/L (137-145)
[2023-09-30] MEDS: MAGNESIUM OXIDE 400 MG TABLET PO ×2 (11:10→18:06)
[2023-09-30] MEDS: POTASSIUM CHLORIDE 20 MEQ ER TABLET 40 MEQ PO (11:11)
[2023-09-30] MEDS: ACETAMINOPHEN 325 MG TABLET 650 MG PO (11:12)
[2023-09-30] MEDS: CALCIUM ACETATE 667 MG TABLET 2668 MG PO ×3 (11:12→18:07)
[2023-09-30] MEDS: CINACALCET 30 MG TABLET 90 MG PO (11:12)
[2023-09-30] MEDS: PANTOPRAZOLE 40 MG TABLET PO (11:13)
[2023-09-30] MEDS: busPIRone HCL 10 MG TABLET PO ×3 (11:13→18:08)
[2023-09-30] MEDS: MULTIVITAMINS THERAPEUTIC TAB (*BKC) 1 TABLET PO (11:13)
[2023-09-30] MEDS: GABAPENTIN 300 MG CAPSULE PO ×3 (11:13→18:07)
[2023-09-30 12:44] LABS: H pylori Ag Stool RESULT: Not Detected
[2023-09-30] MEDS: HEPARIN SODIUM 5,000 UNITS/ML VIAL 5000 UNITS SUB-Q (13:56)
--- NOTE | 2023-09-30 14:13 | PM.PNNEP ---
Progress Note: A&P Assessment and Plan (1) End stage renal disease: Code(s): N18.6 - End stage renal disease Status: Chronic Assessment and Plan: continue nightly CCPD treatments follow electrolytes, volume status, and clearance minimize fluid removal given hypotension (2) Hypotension: Code(s): I95.9 - Hypotension, unspecified Status: Acute Assessment and Plan: quite severe on presentation responded well to IVF resuscitation concern is possible sepsis (see #3) follow trend of hemodynamics (3) Sepsis: Qualifiers: Sepsis acute organ dysfunction status: unspecified Sepsis type: sepsis due to unspecified organism Qualified Code(s): A41.9 - Sepsis, unspecified organism Code(s): A41.9 - Sepsis, unspecified organism Status: Acute Assessment and Plan: as suggested by admission with hypotension, tachypnea, tachycardia and lactic acidosis source of infection not clear CXR negative PD fluid negative for peritonitis does have diarrhea -- stool studies results noted follow culture data (4) Diarrhea: Code(s): R19.7 - Diarrhea, unspecified Status: Acute Assessment and Plan: stool culture pending C. diff toxin assay pending follow clinical symptoms (5) Hypokalemia: Code(s): E87.6 - Hypokalemia Status: Acute Assessment and Plan: due to dialysis as well as possibly diarrhea supplement PRN and scheduled follow trend of K+ (6) HTN (hypertension): Code(s): I10 - Essential (primary) hypertension Status: Chronic Assessment and Plan: despite known history, low BP on presentation BP medications on hold for now - slowly reintroduce as needed follow trend of hemodynamics Will continue to follow. Subjective Date/time seen: 09/30/23 14:13 Interval history: Follow-up for end stage renal disease on peritoneal dialysis. Blood pressure remains stable at this time; no other issues/events overnight or earlier this morning; feels reasonably well; no apparent distress voiced; CCPD treatment overnight was uneventful and he tolerated it reasonably well. Exam Narrative: General: WD/WN male in NAD Heart: normal S1 and S2; no rub Lungs: clear to auscultation Abdomen: soft, nontender, nondistended, positive bowel sounds Extremities: no cyanosis or clubbing; no edema Skin: warm and intact Objective Data Vital Signs Vital Signs: Vital Signs Temp Pulse Resp BP Pulse Ox O2 Del Method FiO2 09/30/23 14:00 96.3 F L 82 18 139/83 100 09/30/23 12:00 92 09/30/23 08:00 88 09/30/23 07:15 97.3 F L 87 16 143/85 H 09/30/23 06:00 97.3 F L 87 16 143/85 H 100 09/30/23 04:00 84 09/30/23 00:00 85 09/29/23 20:00 90 09/29/23 20:00 87 18 96 Room Air 98 09/29/23 21:41 96.8 F L 87 18 143/91 H 96 09/29/23 16:54 98 09/29/23 16:00 83 Intake/Output Intake/Output: Intake & Output 09/27/23 09/28/23 09/29/23 09/30/23 23:59 23:59 23:59 23:59 Intake Total 2550 710 1830 480 Output Total 1061 359 Balance 2550 710 769 121 Meds/Results Medications: Active Medications Generic Name Dose Route Start Last Admin Trade Name Freq PRN Reason Stop Dose Admin Acetaminophen 650 mg 09/27/23 17:35 09/30/23 11:12 Acetaminophen 325 Mg Tablet PO 650 mg Q4H PRN Administration Mild Pain (1-3) or Fever Albuterol 1 puff 09/28/23 08:39 Albuterol Sulfate (*Sp) Aerosol 1 Puff INHALATION Q6HRT PRN shortness of breath or wheezing Buspirone HCl 10 mg 09/28/23 09:00 09/30/23 13:54 Buspirone Hcl 10 Mg Tablet PO 10 mg TID CARIDAD Administration Calcium Acetate 2,668 mg 09/28/23 12:00 09/30/23 13:53 Calcium Acetate 667 Mg Tablet PO 2,668 mg TIDWM CARIDAD Administration Calcium Carbonate 200 mg 09/28/23 10:22 09/29/23 20:14 Calcium Carbonate (Tums) 50
--- NOTE | 2023-09-30 14:13 | P.PNNP_ITS ---
Progress Note: A&P Assessment and Plan (1) End stage renal disease: Code(s): N18.6 - End stage renal disease Status: Chronic Assessment and Plan: * continue nightly CCPD treatments * follow electrolytes, volume status, and clearance * minimize fluid removal given hypotension (2) Hypotension: Code(s): I95.9 - Hypotension, unspecified Status: Acute Assessment and Plan: * quite severe on presentation * responded well to IVF resuscitation * concern is possible sepsis (see #3) * follow trend of hemodynamics (3) Sepsis: Qualifiers: Sepsis acute organ dysfunction status: unspecified Sepsis type: sepsis due to unspecified organism Qualified Code(s): A41.9 - Sepsis, unspecified organism Code(s): A41.9 - Sepsis, unspecified organism Status: Acute Assessment and Plan: * as suggested by admission with hypotension, tachypnea, tachycardia and lactic acidosis * source of infection not clear * CXR negative * PD fluid negative for peritonitis * does have diarrhea -- stool studies results noted * follow culture data (4) Diarrhea: Code(s): R19.7 - Diarrhea, unspecified Status: Acute Assessment and Plan: * stool culture pending * C. diff toxin assay pending * follow clinical symptoms (5) Hypokalemia: Code(s): E87.6 - Hypokalemia Status: Acute Assessment and Plan: * due to dialysis as well as possibly diarrhea * supplement PRN and scheduled * follow trend of K+ (6) HTN (hypertension): Code(s): I10 - Essential (primary) hypertension Status: Chronic Assessment and Plan: * despite known history, low BP on presentation * BP medications on hold for now - slowly reintroduce as needed * follow trend of hemodynamics Will continue to follow. Subjective Date/time seen: 09/30/23 14:13 Interval history: Follow-up for end stage renal disease on peritoneal dialysis. Blood pressure remains stable at this time; no other issues/events overnight or earlier this morning; feels reasonably well; no apparent distress voiced; CCPD treatment overnight was uneventful and he tolerated it reasonably well. Exam Narrative: General: WD/WN male in NAD Heart: normal S1 and S2; no rub Lungs: clear to auscultation Abdomen: soft, nontender, nondistended, positive bowel sounds Extremities: no cyanosis or clubbing; no edema Skin: warm and intact Objective Data Vital Signs Vital Signs: Vital Signs Temp Pulse Resp BP Pulse Ox O2 Del Method FiO2 09/30/23 14:00 96.3 F L 82 18 139/83 100 09/30/23 12:00 92 09/30/23 08:00 88 09/30/23 07:15 97.3 F L 87 16 143/85 H 09/30/23 06:00 97.3 F L 87 16 143/85 H 100 09/30/23 04:00 84 09/30/23 00:00 85 09/29/23 20:00 90 09/29/23 20:00 87 18 96 Room Air 98 09/29/23 21:41 96.8 F L 87 18 143/91 H 96 09/29/23 16:54 98 09/29/23 16:00 83 Intake/Output Intake/Output: Intake & Output 09/27/23 09/28/23 09/29/23 09/30/23 23:59 23:59 23:59 23:59 Intake Total 2550 710 1830 480 Output Total 1061 359 Balance 2550 710 769 121 Meds/Re
[2023-09-30 16:23] LABS: Potassium 3.5 mmol/L (3.4-5.0)
--- NOTE | 2023-09-30 17:07 | P.DS_ITS ---
DS: Admitting Diagnosis Discharge Date 09/29 Admitting Diagnosis weakness DS: Discharge Diagnosis Discharge Diagnosis (1) End stage kidney disease: Code(s): N18.6 - End stage renal disease Status: Acute (2) HTN (hypertension): Code(s): I10 - Essential (primary) hypertension Status: Acute (3) Vitamin D3 deficiency: Code(s): E55.9 - Vitamin D deficiency, unspecified Status: Acute (4) Sepsis: Qualifiers: Sepsis acute organ dysfunction status: unspecified Sepsis type: sepsis due to unspecified organism Qualified Code(s): A41.9 - Sepsis, unspecified organism Code(s): A41.9 - Sepsis, unspecified organism Status: Acute (5) Diarrhea: Code(s): R19.7 - Diarrhea, unspecified Status: Acute Plan Sepsis without septic shock * Hypotensive, tachypnea and tachycardia, lactic acidosis POA * IV fluid resuscitation. 2L in ED BP responded well * Unclear source of infection * CXR with atelectasis/Ascites * Ascites tap negative for infection * Culture of dialysis site * stool cultures and C-diff pending * empiric IV antibiotic therapy Vanc and cefepime * Monitor lactic acid levels q6hr. Trending down 3.3 POA * Two sets of blood cultures pending * urine cultures?. Uremic * C-reactive proteins * procalcitonin level. * PTT and PT, INR. * TTE if indicated. Pending Blood cultures * Monitor albumin, monitoring of mental status. Tremors: * patient reports full body tremors with activity causing him to fall on Wednesday. Tremors worsened over the last few days so he came to be evaluated. * no tremors at rest currently * He follows with Dr. Cerda for peripheral neuropathy. Recently seen on 09/21 and was started on Cymbalta 30 mg BID, continue with Nortriptyline 50 mg and gabapentin 300 mg TID. * Neurology was consulted this admission. They will see him tomorrow. ESRD * On peritoneal dialysis * nephrology consulted * Avoid nephrotoxic drugs. * Monitor antihypertensive drug therapy. * Monitor electrolytes and replenish as needed * Avoid NSAIDs. * Routine CMP monitoring GFR. * Monitor electrolytes especially potassium. * Antibiotic doses depending on creatinine clearance. * Pharmacy does medications. * Cr 16.3 POA Hypertension * was severely hypotensive on admission * holding BP medication can resume as BP rebounds Diarrhea * Stool Cultures pending * C-diff pending HX of vitamin D: resume supplement HX neuropathy: Resume gabapentin, discontinued Cymbalta due to patient reported side effects Code status: Full code per patient DVT prophylaxis: Heparin Stress ulcer prophylaxis: Protonix 40 daily PT/OT notes: Patient is ambulatory on Disposition: Patient was admitted to IMU due to sepsis with hypotension unknown source of infection at this time hypotension improved with fluid resuscitation. Patient peritoneal dialysis nephrology consulted. Patient reports full body tremors causing him to have falls at home. Neurology was consulted. His hypotension has resolved and his leukocytosis has been slowly improving but there is still no clear source of infection. DS: Summary Hospital Course Reason for hospitalization: Hypotension Hospital Course: This is a 44-year-old male with past medical history of stage 4 kidney disease on PD dialysis who presented to the emergency room with complaints of weakness and tremor. He reported recent changes to his peripheral neuropathy m
--- NOTE | 2023-09-30 17:07 | PM.DS ---
DS: Admitting Diagnosis Discharge Date 09/29 Admitting Diagnosis weakness DS: Discharge Diagnosis Discharge Diagnosis (1) End stage kidney disease: Code(s): N18.6 - End stage renal disease Status: Acute (2) HTN (hypertension): Code(s): I10 - Essential (primary) hypertension Status: Acute (3) Vitamin D3 deficiency: Code(s): E55.9 - Vitamin D deficiency, unspecified Status: Acute (4) Sepsis: Qualifiers: Sepsis acute organ dysfunction status: unspecified Sepsis type: sepsis due to unspecified organism Qualified Code(s): A41.9 - Sepsis, unspecified organism Code(s): A41.9 - Sepsis, unspecified organism Status: Acute (5) Diarrhea: Code(s): R19.7 - Diarrhea, unspecified Status: Acute Plan Sepsis without septic shock Hypotensive, tachypnea and tachycardia, lactic acidosis POA IV fluid resuscitation. 2L in ED BP responded well Unclear source of infection CXR with atelectasis/Ascites Ascites tap negative for infection Culture of dialysis site stool cultures and C-diff pending empiric IV antibiotic therapy Vanc and cefepime Monitor lactic acid levels q6hr. Trending down 3.3 POA Two sets of blood cultures pending urine cultures?. Uremic C-reactive proteins procalcitonin level. PTT and PT, INR. TTE if indicated. Pending Blood cultures Monitor albumin, monitoring of mental status. Tremors: patient reports full body tremors with activity causing him to fall on Wednesday. Tremors worsened over the last few days so he came to be evaluated. no tremors at rest currently He follows with Dr. Cerda for peripheral neuropathy. Recently seen on 09/21 and was started on Cymbalta 30 mg BID, continue with Nortriptyline 50 mg and gabapentin 300 mg TID. Neurology was consulted this admission. They will see him tomorrow. ESRD On peritoneal dialysis nephrology consulted Avoid nephrotoxic drugs. Monitor antihypertensive drug therapy. Monitor electrolytes and replenish as needed Avoid NSAIDs. Routine CMP monitoring GFR. Monitor electrolytes especially potassium. Antibiotic doses depending on creatinine clearance. Pharmacy does medications. Cr 16.3 POA Hypertension was severely hypotensive on admission holding BP medication can resume as BP rebounds Diarrhea Stool Cultures pending C-diff pending HX of vitamin D: resume supplement HX neuropathy: Resume gabapentin, discontinued Cymbalta due to patient reported side effects Code status: Full code per patient DVT prophylaxis: Heparin Stress ulcer prophylaxis: Protonix 40 daily PT/OT notes: Patient is ambulatory on Disposition: Patient was admitted to IMU due to sepsis with hypotension unknown source of infection at this time hypotension improved with fluid resuscitation. Patient peritoneal dialysis nephrology consulted. Patient reports full body tremors causing him to have falls at home. Neurology was consulted. His hypotension has resolved and his leukocytosis has been slowly improving but there is still no clear source of infection. DS: Summary Hospital Course Reason for hospitalization: Hypotension Hospital Course: This is a 44-year-old male with past medical history of stage 4 kidney disease on PD dialysis who presented to the emergency room with complaints of weakness and tremor. He reported recent changes to his peripheral neuropathy medications by Neurology. He did started on Cymbalta for which he took 2 days and then started feeling poorly so he stopped the medication. His continued with his gabapentin and nortriptyline for his peripheral neuropathy. He also has chronic diarrhea going about 4 to 5 times a day. He feels like the diarrhea has been somewhat increased from baseline. In the ED patient was noted to be hypotensive in 60s systolic. Afebrile. Patient received 2 L IV fluids with improvement in his blood pres
[2023-10-01 23:29] LABS: pH Stool 7.8 pH units (7.0-7.5)
[2023-10-04 18:54] LABS: Calprotectin, Stool 184 mcg/g
[2023-10-05 16:33] LABS: Chloride, Feces 32 mEq/L; Potassium, Feces 85.3 mEq/L; Sodium, Feces 59 mEq/L
== END 2023-09-30 18:20 | disposition home or self-care (01) | DRG 871 ==
LOC: ANHED 17:11 → ANHIMU 18:59 → ANH3MEDSUR 09-29 07:09 → ANHIMU 10-01 15:16
PROVIDERS: Emergency Medicine; Internal Medicine; Internal Medicine Nephrology; Nurse Practitioner Family; Admitting Provider Internal Medicine; Emergency Provider Preventive Medicine Aerospace Medicine; PCP Nurse Practitioner Family; Visit Provider Nurse Practitioner Acute Care
DX: A41.9 Sepsis, unspecified organism (principal); N18.6 End stage renal disease; I12.0 Hypertensive chronic kidney disease with stage 5 chronic kidney disease or end stage renal disease; J98.11 Atelectasis; R18.8 Other ascites; G62.9 Polyneuropathy, unspecified; E55.9 Vitamin D deficiency, unspecified; Z99.2 Dependence on renal dialysis; E78.5 Hyperlipidemia, unspecified; I51.89 Other ill-defined heart diseases; R25.9 Unspecified abnormal involuntary movements; E86.0 Dehydration; R25.1 Tremor, unspecified; R19.7 Diarrhea, unspecified; D35.01 Benign neoplasm of right adrenal gland; F17.210 Nicotine dependence, cigarettes, uncomplicated
CPT/HCPCS: 36415; 70450; 71045; 71250; 74176; 80048; 80053; 80202; 82438; 82550; 82565; 83605; 83735; 83993; 84132; 84145; 84302; 84311; 85025; 85027; 85610; 85730; 86140; 86706; 86747; 87040; 87045; 87070; 87075; 87205; 87338; 87340; 87427; 87449; 87493; 87637; 89051; 89055; 90945; 93005; 96361; 96365; 96366; 96367; 96372; 97110; 97116; 97161; 97165; 97530; 99285; A9270; G0378; J0692; J1644; J3370; J7030

== ENCOUNTER 2023-10-05 22:01 | Inpatient (IN) | payer MEDICARE, MEDICAID, SELFPAY ==
--- NOTE | ~2023-10-05 | XR_ITS ---
EXAMINATION: XR chest 2V Exam Date/Time: 10/05/2023 22:38 CDT HISTORY: weakness Comparison: 09/27/2023, 11/02/2022. RESULT: Lines, tubes, and devices: None. Lungs and pleura: Clear. Cardiomediastinal silhouette: Stable. Other: No acute osseous or upper abdominal finding. IMPRESSION: No acute cardiopulmonary process. Reviewed, dictated and finalized at location K.
--- NOTE | ~2023-10-05 | CT_ITS ---
EXAMINATION: CT abdomen pelvis w con DATE: 10/05/2023 23:55 INDICATION: Sepsis? Peritoneal dialysis patient TECHNIQUE: Computed tomography (CT) of the abdomen and pelvis was performed with 100 mL Omnipaque-350 intravenous contrast. Automated exposure control and iterative reconstruction technique were employe d. The dose-length product was 1402.71 mGy-cm. COMPARISON: 09/27/2023. FINDINGS: Lower thorax: Minimal bibasilar scarring. Coronary artery calcification. Stable left lower lobe nodul e. The previously described right lower lobe nodule was not included in the [id number]. Liver: Enlarged. Biliary/Gallbladder: Gallbladder is normal. No bile duct dilation. Pancreas: No mass or duct dilation. Spleen: Normal. Adrenals: 13 mm right adrenal mass of indeterminate density measuring 1.3 cm and stable, likely adeno ma.. Kidneys: Bilateral atrophy. No suspicious mass, obstructing calcification, or hydronephrosis. GI tract: No small or large bowel dilation. The appendix is not confidently visualized. Mesentery/Peritoneum: No mass or free air. Moderate volume ascites. A peroneal dialysis catheter ente rs at the left mid abdomen and terminates in the lower abdominal peritoneal fluid collection. Retroperitoneum: No mass. Atherosclerotic abdominal aortic and/or arterial calcifications. Pelvis: Empty urinary bladder. Normal prostate. Soft Tissues: Soft tissues and body wall unremarkable. Bones: No acute osseous finding. IMPRESSION: Hepatomegaly. Moderate ascites. Peritoneal dialysis catheter, in good position Pulmonary nodules. Prior recommendation for follow-up noncontrast low-dose chest CT in 6-12 months is unchanged. Reviewed, dictated and finalized at location K. IMPRESSION: Hepatomegaly. Moderate ascites. Peritoneal dialysis catheter, in good position Pulmonary nodules. Prior recommendation for follow-up noncontrast low-dose ches t CT in 6-12 months is unchanged.
[2023-10-05 22:01] VITALS: BP 79/48; PULSE 101; RESP 18; TEMP 35.9; O2SAT 100
[2023-10-05 22:21] VITALS: PULSE 97
--- NOTE | 2023-10-05 22:24 | ECG_ITS ---
Test Date: 2023-10-05 22:33:31 Measurements Intervals [place] Rate: 91 P: -5 SD: 154 QRS: 23 QRSD: 120 T: 65 QT: 369 QTc: 455 Interpretive Statements SINUS RHYTHM INCOMPLETE LEFT BUNDLE BRANCH BLOCK Compared to ECG 09/27/2023 14:18:52 NO SIGNIFICANT CHANGES Electronically Signed On 10-06-2023 09:28:11 CDT by Carlo Calvert M.D.
[2023-10-05 22:30] VITALS: BP 112/78; PULSE 92; RESP 18; O2SAT 98
[2023-10-05 22:40] LABS: Basophils Absolute Auto 0.1 K/mm3 (0.0-0.1); Basophils Percent Auto 0.6 % (0.2-1.2); Eosinophils Percent Auto 6.7 % (0-4.4); Hematocrit 38.4 % (42.0-52.0); Hemoglobin 13.1 g/dL (14.0-18.0); Immature Granulocyte Absolute 0.16 K/mm3 (0.00-0.031); Immature Granulocyte Percent A 1.1 % (0-0.5); Lymphocytes Absolute Auto 2.05 K/mm3 (0.9-3.2); Lymphocytes Percent Auto 14.5 % (18.3-44.2); Mean Corpuscular HGB Conc 34.1 g/dl (32-36); Mean Corpuscular Hemoglobin 33.4 pg (26-34); Mean Platelet Volume 8.9 fl (7.4-10.4); Monocytes Absolute Auto 1.8 K/mm3 (0.1-0.6); Monocytes Percent Auto 12.9 % (2.6-8.5); Neutrophils Absolute Auto 9.1 K/mm3 (1.3-6.7); Neutrophils Percent Auto 64.2 % (45.5-73.1); Platelet Count Result 356 k/mm3 (150-375); Red Blood Count 3.92 M/mm3 (4.6-6.20); Red Cell Distribution Width 14.4 % (11.5-14.5); White Blood Count 14.2 K/mm3 (4.5-10.0)
--- NOTE | 2023-10-05 23:27 | ED.WEAKNESS ---
HPI - Weakness General Chief complaint: Weakness Stated complaint: weakness and lightheadedness Time Seen by Provider: 10/05/23 22:26 History of Present Illness HPI Narrative: This is a 53-year-old male with a past medical history significant for end-stage renal disease on peritoneal dialysis, hypertension, chronic diarrhea, peripheral vascular disease. Patient was recently admitted to the hospital and discharged several days ago after admission for sepsis without septic shock and similar findings of generalized weakness and hypotension corrected with fluids. Today patient presents to the ED for persistent generalized weakness, persistent diarrhea, low blood pressure and high heart rate. On triage vitals patient was hypotensive to 79/48 with a pulse of 101. He endorses no symptoms such as fever, chills, nausea, vomiting, back pain, abdominal pain, chest pain, shortness a breath. He undergoes peritoneal dialysis at home without issue but did not go through dialysis today as he presented to the ED. endorses diarrhea that is chronic without any changes such as dark tarry stool or blood. Does not make urine. No cough or upper respiratory symptoms. Related Data Home Medications Medication Instructions Recorded Confirmed calcium acetate 667 mg tablet 2,668 mg PO TIDWMEAL 08/31/22 10/06/23 gentamicin 0.1 % topical cream 1 applic topical TID PRN DIALYSIS 08/31/22 10/06/23 CATH. labetalol 200 mg tablet 200 mg PO BID 04/01/23 10/06/23 calcium carbonate (Tums) 200 mg PO HS PRN Indigestion 07/20/23 10/06/23 cinacalcet 30 mg tablet 90 mg PO DAILY 07/20/23 10/06/23 melatonin 10 mg capsule 20 mg PO QHS 07/20/23 10/06/23 ondansetron 4 mg disintegrating 4 mg PO Q8H PRN Nausea And Vomiting 07/20/23 10/06/23 tablet multivitamin 1 tablet PO DAILY 07/29/23 10/06/23 ferric citrate 210 mg iron tablet 210 mg PO TIDWM 09/28/23 10/06/23 (Auryxia) amlodipine 10 mg tablet 10 mg PO HS 10/06/23 10/06/23 Allergies Allergy/AdvReac Type Severity Reaction Status Date / Time No Known Allergies Allergy Verified 09/27/23 13:53 Review of Systems Review of Systems: As reviewed above in the HPI [facility] Past Medical History Medical History End stage kidney disease HTN (hypertension) Polyneuropathy Vitamin D3 deficiency Social History Social History Smoking packs per day: 0.5 Smoking cigarettes per day: 10.0 Years smoked: 20 Smoking pack-years: 10.00 Smoking status: Former smoker Tobacco type: cigarettes Alcohol intake: never Alcohol use details: rarely Substance use: never Substance use type: marijuana Other substance usage details: OCCASIONAL Do You Feel Safe in your Home?: Yes Lack of Transportation: No Lack of Food: Never True Current Housing: I Have Housing Concerned About Future Housing: No Difficulty Paying Gas/Electric Bills: No Difficulty Paying for Meds: No Currently Unemployed: No Education: Master's Degree or Higher Difficulty w/ Childcare or Family Care: No Living arrangements: with family Spiritual care concerns: No Exam Narrative: GENERAL: [Well-appearing, well-nourished, and in no acute distress.] HEAD: [Normocephalic, atraumatic.] EYES: [PERRLA and EOMI.] ENT: Nares clear, no rhinorrhea or epistaxis. Mucous membranes moist. NECK: Supple. CHEST: [Clear to auscultation. No respiratory distress.] HEART: [Regular rate and rhythm]. No murmur heard. [Normal peripheral pulses.] ABDOMEN: Largely distended but soft and nontender, no peritonitis symptoms, [No rigidity or guarding] EXTREMITIES: Normal range of motion. [No edema.] SKIN: Warm, dry, no rash. Peritoneal dialysis catheter in place in the left side of the abdomen without any overlying skin changes, erythema, purulence NEURO: [No focal deficits]. Alert and oriented [x3.] PSYCH: [Normal mood an
[2023-10-05 23:28] LABS: Alanine Aminotransferase 41 U/L (6-50); Albumin Level 4.1 g/dL (3.5-5.1); Alkaline Phosphatase 142 U/L (38-126); Anion Gap 22 mmol/L (4-12); Aspartate Amino Transferase 27 U/L (17-59); Bilirubin,Total 0.6 mg/dL (0.2-1.3); Blood Urea Nitrogen 54 mg/dL (9-20); Calcium 8.7 mg/dL (8.4-10.2); Carbon Dioxide 19 mmol/L (22-30); Chloride 89 mmol/L (98-107); Estimated CRCL calculation 6 ml/min; Estimated Glomerular Filt Rate 3; Glucose 108 mg/dL (65-110); Sodium 130 mmol/L (137-145)
[2023-10-06] VITALS (24 sets, daily range): BP systolic 87–144; BP diastolic 61–91; PULSE 87–100; RESP 13–21; TEMP 35.6–36.6; O2SAT 94–100; BMI 33.5; BMI 34.7
[2023-10-06] MEDS: LACTATED RINGERS 1,000 ML 999 ML IV CONT (00:12)
--- NOTE | 2023-10-06 00:28 | PC.NURSE ---
1st and 2nd set of blood cultures were drawn by Morena ,PCt
--- NOTE | 2023-10-06 00:29 | PC.NURSE ---
Abx started after both sets of blood cultures were collected and sent to lab.
[2023-10-06] MEDS: CEFEPIME 2 GM/NS 50 ML 2 GM/50 ML BAG IVPB (00:30)
[2023-10-06 00:46] LABS: Prothrombin Time 13.8 Seconds (11.1-14.7)
[2023-10-06 00:47] LABS: Partial Thromboplastin Time 30.6 Seconds (22.3-36.8)
[2023-10-06 00:59] LABS: Troponin I 0.023 ng/mL (0.000-0.034)
[2023-10-06 01:03] LABS: CRP 0.6 mg/dL (<1.0)
[2023-10-06] MEDS: VANCOMYCIN 1,500 MG/NS 500 ML 1,500 MG/500 ML BAG 250 MG IVPB (01:07)
[2023-10-06 01:10] LABS: Influenza A QL RT-PCR Negative (Negative); Influenza B QL RT-PCR Negative (Negative); RSV RNA, RT-PCR Negative (Negative); SARS-CoV-2 RNA PCR Negative (Negative)
[2023-10-06 01:14] LABS: Lactic Acid Reflex 2.1 mmol/L (0.7-2.0)
[2023-10-06 03:31] LABS: Reflex Lactic Acid Yes or No Add Lactic
--- NOTE | 2023-10-06 03:58 | PC.NURSE ---
dr. bronw notified of pt request to get lomotil (home medication for diarrhea )
[2023-10-06] MEDS: DIPHENOXYLATE/ATROPINE (*CRX) 2.5 MG TABLET 1 TABLET PO ×2 (04:02→15:59)
[2023-10-06 04:08] LABS: Lactic Acid 1.4 mmol/L (0.7-2.0)
--- NOTE | 2023-10-06 05:29 | PM.IMHP ---
H&P: HPI History of Present Illness Date/Time: 10/06/23 05:29 Chief Complaint: Generalized weakness Narrative: This is a 53-year-old male with past medical history significant for hypertension, end-stage disease on peritoneal dialysis, peripheral neuropathy. Patient recently discharged from [facility] treated for likely infection however source was not identified. Comes back today with complaints of generalized weakness, feeling overall unwell, denies fevers, rigors, chills, cough, sputum production, chest congestion, chest pain, lightheadedness. Patient uses peritoneal dialysis every night. Preliminary workup has been essentially nonrevealing. Review of Systems Review of Systems: Generalized weakness PMFSH Past Medical History Medical History End stage kidney disease HTN (hypertension) Polyneuropathy Vitamin D3 deficiency Social History Social History Smoking packs per day: 0.5 Smoking cigarettes per day: 10.0 Years smoked: 20 Smoking pack-years: 10.00 Smoking status: Current every day smoker Tobacco type: cigarettes Alcohol intake: never Alcohol use details: rarely Substance use: never Substance use type: marijuana Other substance usage details: OCCASIONAL Do You Feel Safe in your Home?: Yes Lack of Transportation: No Lack of Food: Never True Current Housing: I Have Housing Concerned About Future Housing: No Difficulty Paying Gas/Electric Bills: No Difficulty Paying for Meds: No Currently Unemployed: No Education: Master's Degree or Higher Difficulty w/ Childcare or Family Care: No Living arrangements: with family Spiritual care concerns: No Meds Home Medications and Allergies Home Medications Medication Instructions Recorded Confirmed Type calcium acetate 667 mg tablet 2,668 mg PO TIDWMEAL 08/31/22 09/27/23 History gentamicin 0.1 % topical cream 1 applic topical TID PRN DIALYSIS 08/31/22 09/27/23 History CATH. labetalol 200 mg tablet 200 mg PO BID 04/01/23 09/27/23 History calcium carbonate (Tums) 200 mg PO HS PRN Indigestion 07/20/23 09/28/23 History cinacalcet 30 mg tablet 90 mg PO DAILY 07/20/23 09/27/23 History lisinopril 20 mg tablet 20 mg PO DAILY 07/20/23 09/27/23 History melatonin 10 mg capsule 20 mg PO QHS 07/20/23 09/27/23 History ondansetron 4 mg disintegrating 4 mg PO Q8H PRN Nausea And Vomiting 07/20/23 09/27/23 History tablet albuterol sulfate 90 mcg/actuation 1 inh inhalation QID PRN shortness 07/29/23 09/27/23 Rx aerosol inhaler of breath or wheezing #8.5 grams gabapentin 300 mg capsule 300 mg PO TID #270 caps 07/29/23 09/27/23 Rx multivitamin 1 tablet PO DAILY 07/29/23 09/27/23 History syringe with needle 3 mL 21 gauge #12 ea 08/30/23 09/27/23 Rx x 1 (BD Luer-Elizabeth Syringe) amlodipine 10 mg tablet See Rx Instructions .Route 09/02/23 09/27/23 Rx .COMPLEX #90 tabs buspirone 10 mg tablet 10 mg PO TID #90 tabs 09/02/23 09/27/23 Rx diphenoxylate-atropine 2.5 1 tablet PO QID PRN diarrhea #60 09/02/23 09/27/23 Rx mg-0.025 mg tablet tabs mecobalamin (vitamin B12) 10,000 1,000 mcg IM .COMPLEX #1 ea 09/02/23 09/27/23 Rx mcg solution for injection duloxetine 30 mg capsule,delayed 30 mg PO DAILY #60 caps 09/22/23 09/27/23 Rx release nortriptyline 50 mg capsule 50 mg PO QHS #30 caps 09/22/23 09/27/23 Rx cholecalciferol (vitamin D3) 1,250 1,250 mcg PO WEEKLY 09/27/23 09/27/23 History mcg (50,000 unit) tablet (Dialyvite Vitamin D3 Max) ferric citrate 210 mg iron tablet 210 mg PO TIDWM 09/28/23 09/28/23 History (Auryxia) Allergies Allergy/AdvReac Type Severity Reaction Status Date / Time No Known Allergies Allergy Verified 09/27/23 13:53 Vital Signs Vital Signs - 24 hr 10/05/23 22:01 10/05/23 22:21 10/05/23 22:30 Temperature 96.6 F L Pulse Rate 101 H 97 92 Respirator
--- NOTE | 2023-10-06 05:57 | ADMGEN ---
This patient, Real Rolon, was admitted to [address] [place] [address] Room 305-02. Patient/family oriented to hospital policies and general routines including ID bracelet, bed and alarms, visiting hours, pain management, procedures, bathroom and other care routines, personal items, smoking policy, room service/diet, and visiting hours. Information on how to activate the Rapid Response Team has been discussed. Patient/Family are encouraged to report perceived risks to care and to ask questions if they do not understand what they are told or what they should do.
--- NOTE | 2023-10-06 09:08 | PM.IMPN ---
Progress Note: A&P Assessment and Plan (1) End stage kidney disease: Code(s): N18.6 - End stage renal disease Status: Acute Assessment and Plan: On peritoneal dialysis Continue peritoneal dialysis - consult to nephrology (2) HTN (hypertension): Code(s): I10 - Essential (primary) hypertension Status: Chronic Assessment and Plan: holding amlodipine and labetolol (3) Peripheral vascular disease: Code(s): I73.9 - Peripheral vascular disease, unspecified Status: Acute Assessment and Plan: Unchanged (4) Tobacco abuse: Code(s): Z72.0 - Tobacco use Status: Acute Assessment and Plan: Nicotine patch as needed (5) Polyneuropathy: Code(s): G62.9 - Polyneuropathy, unspecified Status: Acute Assessment and Plan: Continue gabapentin and duloxetine (6) Peritoneal dialysis catheter in place: Code(s): Z99.2 - Dependence on renal dialysis Status: Acute Assessment and Plan: Local care Time Spent With Patient Time with patient: Greater than 35 minutes Subjective Date/time seen: 10/06/23 09:08 Interval history: Narrative retrieved from H/P: This is a 53-year-old male with past medical history significant for hypertension, end-stage disease on peritoneal dialysis, peripheral neuropathy. Patient recently discharged from [facility] treated for likely infection however source was not identified. Comes back today with complaints of generalized weakness, feeling overall unwell, denies fevers, rigors, chills, cough, sputum production, chest congestion, chest pain, lightheadedness. Patient uses peritoneal dialysis every night. Preliminary workup has been essentially nonrevealing. 10/05- pt is seen and examined. Holding bp meds for now. weakness- awaiting nephrology consult. denies chest pain, sob Review of Systems Review of Systems: Generalized weakness Constitutional: Constitutional: Denies chills Eyes: Eyes: Denies photophobia ENT: Denies nasal congestion Cardiovascular: Cardiovascular: Denies chest pain, Denies diaphoresis and Denies leg edema Respiratory: Respiratory: Denies chest congestion and Denies cough Gastrointestinal: Gastrointestinal: Denies abdominal pain Musculoskeletal: Musculoskeletal: Denies back pain Psychiatric: Psychiatric: Denies anxiety Exam Narrative: Laying in a stretcher Const: General: comfortable, no acute distress, well developed, alert, awake and obese Nutritional Appearance: obese Orientation/consciousness: patient oriented x3 HENMT: Head: normal to inspection, normocephalic and atraumatic Ears: hearing grossly normal bilaterally Face/Nose/Sinus: normal facial exam Face and sinus: normal facial exam Eyes: General: appearance normal, both eyes and all related structures Pupils: Equal, round and reactive pupils present EOM: EOMs intact bilaterally Neck: Neck: full ROM, no lymphadenopathy and no JVD Thyroid: thyroid normal Lymphatic: no lymphadenopathy noted Resp: Effort & Inspection: normal respiratory effort and able to speak in complete sentences Auscultation: clear to auscultation bilaterally Cardio: Jugular venous distension: no JVD Rate: regular rate Rhythm: regular rhythm Heart sounds: S1 normal heart sound present and S2 normal heart sound present : General: Yes deferred Skin: Rashes: no rashes Wounds: no wounds Neuro: General: patient oriented x3 and CN's II-XI intact bilaterally Cranial nerves: Yes CN's II-XII intact bilaterally and Yes Equal, round and reactive pupils present Cognition (Neuro): normal cognition Speech: normal speech Gait exam (Neuro): Normal gait present Motor exam (neuro): 5/5 motor strength present throughout Extrem: General: normal to inspection, full ROM, no joint enlargement and no pedal edema Objective Data Vital Signs Vital Signs: Vital Signs - 24 hr 10/05/23 22:01 10/05/23 22:21 10/05/23 22
[2023-10-06] MEDS: CINACALCET 30 MG TABLET 90 MG PO (09:25)
[2023-10-06] MEDS: busPIRone HCL 10 MG TABLET PO ×3 (09:25→15:59)
[2023-10-06] MEDS: GABAPENTIN 300 MG CAPSULE PO ×3 (09:25→15:59)
[2023-10-06] MEDS: MULTIVITAMINS THERAPEUTIC TAB (*BKC) 1 TABLET PO (09:26)
[2023-10-06] MEDS: ACETAMINOPHEN 325 MG TABLET 650 MG PO ×3 (10:05→20:27)
[2023-10-06] MEDS: ONDANSETRON HCL ODT 4 MG TABLET PO (12:32)
[2023-10-06] MEDS: LORATADINE 10 MG TABLET PO (13:58)
--- NOTE | 2023-10-06 14:10 | PM.CNNEP ---
Assessment and Plan Assessment and plan (1) End stage renal disease: Code(s): N18.6 - End stage renal disease Status: Chronic Assessment and Plan: resume CCPD this evening given #2, minimize fluid removal follow electrolytes, volume status, and clearance (2) Hypotension: Code(s): I95.9 - Hypotension, unspecified Status: Acute Assessment and Plan: as noted on presentation responded well to IVF resuscitation concern is possible sepsis (see #3) follow trend of hemodynamics (3) Sepsis: Qualifiers: Sepsis acute organ dysfunction status: unspecified Sepsis type: sepsis due to unspecified organism Qualified Code(s): A41.9 - Sepsis, unspecified organism Code(s): A41.9 - Sepsis, unspecified organism Status: Acute Assessment and Plan: as suggested by admission with hypotension, tachycardia and lactic acidosis source of infection not clear CXR negative PD fluid clear and benign abdominal exam does have diarrhea -- stool studies negative on last hospitalization follow culture data empirically on antibiotics (4) HTN (hypertension): Code(s): I10 - Essential (primary) hypertension Status: Chronic Assessment and Plan: despite known history, low BP on presentation BP medications on hold for now follow trend of hemodynamics (5) Generalized weakness: Code(s): R53.1 - Weakness Status: Acute Assessment and Plan: related to low BP, acute illness, and possibly recent hospitalization PT/OT continue supportive therapy I will continue to follow the patient with you while he remains hospitalized and make further recommendations as deemed necessary. Thank you for allowing me to participate in the care of this patient. History of Present Illness Reason for Consult Consult date: 10/06/23 Reason for consult: end stage renal disease (on peritoneal dialysis) Chief Complaint Chief complaint: Sepsis, Hypotension, Diarrhea History of Present Illness Narrative: The patient is a 53-year-old male with a past medical history as outlined below who presented to [facility] Emergency Room with complaints of generalized weakness, fatigue, and dizziness. The patient was just recently discharged from [facility] about a week ago where he was treated for hypotension and similar symptoms. At that time, there was a concern for sepsis and he was treated with broad-spectrum IV antibiotic therapy however all cultures were negative and his blood pressure significantly improved with IV fluid resuscitation. When he was discharged, the patient felt reasonably well for a few days but then his condition seem to River to the same symptoms that he had on his previous hospitalizations/admission. These symptoms include generalized fatigue/ weakness, on and off diarrhea, low blood pressure, and tachycardia. He denies any overt fevers, chills, nausea, vomiting, back pain, chest pain, shortness of breath or diaphoresis. As his symptoms seem to progressively get worse, he came back to the emergency room for further assessment. Workup and evaluation emergency room was significant for hypotension with a systolic BP in the high 70s in association with tachycardia. Once again, the concern was possible sepsis if not septic shock verses volume depletion. Routine blood test demonstrated an elevated white blood cell count of 14.2 with stable anemia and his chemistry showed some minor electrolyte abnormalities but were consistent with his known history of end-stage renal disease. His lactic acid was mildly elevated 2.1 but after IV fluid resuscitation given his hypotension, it did come down to 1.4. His troponins were negative as were his inflammatory markers. CT scan of his abdomen pelvis demonstrated moderate ascites consistent with his known history of peritoneal dialysis in addition to Adria mccarty but no other acute intra-abdominal
[2023-10-06] MEDS: NORTRIPTYLINE HCL 25 MG CAPSULE 50 MG PO (20:27)
[2023-10-06] MEDS: MELATONIN 5 MG TABLET 20 MG PO (20:29)
[2023-10-07] VITALS (8 sets, daily range): BP systolic 135–151; BP diastolic 80–89; PULSE 81–101; RESP 13–14; TEMP 36.1; O2SAT 94–100
[2023-10-07 07:06] LABS: Basophils Absolute Auto 0.1 K/mm3 (0.0-0.1); Basophils Percent Auto 0.5 % (0.2-1.2); Eosinophils Absolute Auto 1.6 K/mm3 (0-0.3); Hematocrit 32.6 % (42.0-52.0); Hemoglobin 10.9 g/dL (14.0-18.0); Immature Granulocyte Absolute 0.08 K/mm3 (0.00-0.031); Immature Granulocyte Percent A 0.6 % (0-0.5); Lymphocytes Absolute Auto 1.91 K/mm3 (0.9-3.2); Lymphocytes Percent Auto 15.4 % (18.3-44.2); Mean Corpuscular HGB Conc 33.4 g/dl (32-36); Mean Corpuscular Hemoglobin 32.7 pg (26-34); Mean Corpuscular Volume 97.9 fl (80-100); Mean Platelet Volume 8.6 fl (7.4-10.4); Monocytes Absolute Auto 1.6 K/mm3 (0.1-0.6); Monocytes Percent Auto 13.2 % (2.6-8.5); Neutrophils Absolute Auto 7.1 K/mm3 (1.3-6.7); Neutrophils Percent Auto 57.3 % (45.5-73.1); Platelet Count Result 325 k/mm3 (150-375); Red Blood Count 3.33 M/mm3 (4.6-6.20); Red Cell Distribution Width 13.6 % (11.5-14.5); White Blood Count 12.4 K/mm3 (4.5-10.0)
[2023-10-07 07:47] LABS: Alanine Aminotransferase 32 U/L (6-50); Albumin Level 3.5 g/dL (3.5-5.1); Alkaline Phosphatase 113 U/L (38-126); Anion Gap 21 mmol/L (4-12); Aspartate Amino Transferase 26 U/L (17-59); Bilirubin,Total 0.6 mg/dL (0.2-1.3); Blood Urea Nitrogen 56 mg/dL (9-20); Calcium 7.7 mg/dL (8.4-10.2); Carbon Dioxide 18 mmol/L (22-30); Chloride 89 mmol/L (98-107); Estimated CRCL calculation 6 ml/min; Estimated Glomerular Filt Rate 3; Glucose 88 mg/dL (65-110); Sodium 128 mmol/L (137-145)
--- NOTE | 2023-10-07 09:00 | PM.IMPN ---
Progress Note: A&P Assessment and Plan (1) End stage kidney disease: Code(s): N18.6 - End stage renal disease Status: Acute Assessment and Plan: On peritoneal dialysis Continue peritoneal dialysis - consult to nephrology (2) HTN (hypertension): Code(s): I10 - Essential (primary) hypertension Status: Chronic Assessment and Plan: holding amlodipine and labetolol -reviewed and stable- monitor (3) Peripheral vascular disease: Code(s): I73.9 - Peripheral vascular disease, unspecified Status: Acute Assessment and Plan: Unchanged (4) Tobacco abuse: Code(s): Z72.0 - Tobacco use Status: Acute Assessment and Plan: Nicotine patch as needed (5) Polyneuropathy: Code(s): G62.9 - Polyneuropathy, unspecified Status: Acute Assessment and Plan: Continue gabapentin and duloxetine (6) Peritoneal dialysis catheter in place: Code(s): Z99.2 - Dependence on renal dialysis Status: Acute Assessment and Plan: Local care Plan 10/06- wbc improved 12.4 (14.2) K is 3-stable, hyponatremia- nephrology is following- appreciate recommendations Time Spent With Patient Time with patient: Greater than 35 minutes Subjective Date/time seen: 10/07/23 09:00 Interval history: Narrative retrieved from H/P: This is a 53-year-old male with past medical history significant for hypertension, end-stage disease on peritoneal dialysis, peripheral neuropathy. Patient recently discharged from [facility] treated for likely infection however source was not identified. Comes back today with complaints of generalized weakness, feeling overall unwell, denies fevers, rigors, chills, cough, sputum production, chest congestion, chest pain, lightheadedness. Patient uses peritoneal dialysis every night. Preliminary workup has been essentially nonrevealing. 10/05- pt is seen and examined. Holding bp meds for now. weakness- awaiting nephrology consult. denies chest pain, sob. 10/06- pt is seen this am. BP stable- holding BP meds. Nephrology saw him last night, Dr Dennis. he is c/o ears pressure- ear exam completed- unable to see ear drums rt ear due to ear wax- lt ear partially visualized- membrane is intact, non bulging. will need to f/u with pcp/ent when discharged. PT/OT ordered. Need to get out of bed- will get him wheelchair for stability Review of Systems Review of Systems: Generalized weakness Constitutional: Constitutional: Denies chills Eyes: Eyes: Denies photophobia ENT: Denies nasal congestion Cardiovascular: Cardiovascular: Denies chest pain, Denies diaphoresis and Denies leg edema Respiratory: Respiratory: Denies chest congestion and Denies cough Gastrointestinal: Gastrointestinal: Denies abdominal pain Musculoskeletal: Musculoskeletal: Denies back pain Psychiatric: Psychiatric: Denies anxiety Exam Narrative: Laying in a stretcher Const: General: comfortable, no acute distress, well developed, alert, awake, ill appearing chronically and obese Nutritional Appearance: obese Orientation/consciousness: patient oriented x3 HENMT: Head: normal to inspection, normocephalic and atraumatic Ears: hearing grossly normal bilaterally Face/Nose/Sinus: normal facial exam Face and sinus: normal facial exam Eyes: General: appearance normal, both eyes and all related structures Pupils: Equal, round and reactive pupils present EOM: EOMs intact bilaterally Direct Ophthalmoscopy: No photophobia Neck: Neck: full ROM, no lymphadenopathy and no JVD Thyroid: thyroid normal Lymphatic: no lymphadenopathy noted Resp: Effort & Inspection: normal respiratory effort and able to speak in complete sentences Auscultation: clear to auscultation bilaterally Cardio: Jugular venous distension: no JVD Rate: regular rate Rhythm: regular rhythm Heart sounds: S1 normal heart sound present and S2 normal heart sound present : General
[2023-10-07] MEDS: POTASSIUM CHLORIDE 20 MEQ ER TABLET 40 MEQ PO (10:12)
[2023-10-07] MEDS: POTASSIUM CHLORIDE 20 MEQ ER TABLET PO (10:12)
[2023-10-07] MEDS: CINACALCET 30 MG TABLET 90 MG PO (10:13)
[2023-10-07] MEDS: GABAPENTIN 300 MG CAPSULE PO ×3 (10:13→18:17)
[2023-10-07] MEDS: busPIRone HCL 10 MG TABLET PO ×3 (10:13→18:17)
[2023-10-07] MEDS: LORATADINE 10 MG TABLET PO (10:13)
[2023-10-07] MEDS: MULTIVITAMINS THERAPEUTIC TAB (*BKC) 1 TABLET PO (10:13)
[2023-10-07] MEDS: DIPHENOXYLATE/ATROPINE (*CRX) 2.5 MG TABLET 1 TABLET PO ×2 (10:19→20:30)
[2023-10-07] MEDS: ACETAMINOPHEN 325 MG TABLET 650 MG PO ×2 (10:19→20:21)
--- NOTE | 2023-10-07 14:27 | PM.PNNEP ---
Progress Note: A&P Assessment and Plan (1) End stage renal disease: Code(s): N18.6 - End stage renal disease Status: Chronic Assessment and Plan: resume CCPD this evening attempt to minimize fluid removal given admission hypotension follow electrolytes, volume status, and clearance (2) Hypotension: Code(s): I95.9 - Hypotension, unspecified Status: Acute Assessment and Plan: as noted on presentation responded well to IVF resuscitation concern is possible sepsis (see #3) however, too aggressive ultrafiltration with CCPD could be to blame as well BP medications on hold follow trend of hemodynamics (3) Sepsis: Qualifiers: Sepsis acute organ dysfunction status: unspecified Sepsis type: sepsis due to unspecified organism Qualified Code(s): A41.9 - Sepsis, unspecified organism Code(s): A41.9 - Sepsis, unspecified organism Status: Acute Assessment and Plan: as suggested by admission with hypotension, tachycardia and lactic acidosis source of infection not clear CXR negative PD fluid clear and benign abdominal exam does have diarrhea -- stool studies negative on last hospitalization follow culture data empirically on antibiotics (4) Hypokalemia: Code(s): E87.6 - Hypokalemia Status: Acute Assessment and Plan: replace today and PRN replete magnesium as well may need chronic scheduled K+ follow trend (5) Hyponatremia: Code(s): E87.1 - Hypo-osmolality and hyponatremia Status: Acute Assessment and Plan: likely related to ESRD and increased free water intake if worsens, consider fluid restriction follow trend (6) HTN (hypertension): Code(s): I10 - Essential (primary) hypertension Status: Chronic Assessment and Plan: despite known history, low BP on presentation BP medications on hold for now follow trend of hemodynamics (7) Generalized weakness: Code(s): R53.1 - Weakness Status: Acute Assessment and Plan: related to low BP, acute illness, and possibly recent hospitalization PT/OT continue supportive therapy Will continue to follow. Subjective Date/time seen: 10/07/23 14:27 Interval history: Follow-up for end stage renal disease on peritoneal dialysis. Tolerated CCPD treatment overnight without any issues or problems (overnight PD treatment supervised -- seen at 2:15PM); blood pressure has remained stable if not better at this time; no apparent distress voiced at the time of my visit; mother at bedside at the time of my visit and we discussed the situation. Exam Narrative: General: WD/WN male in NAD Heart: normal S1 and S2; no rub Lungs: clear to auscultation Abdomen: soft, nontender, nondistended, positive bowel sounds Extremities: no cyanosis or clubbing; no edema Skin: warm and dry Objective Data Vital Signs Vital Signs: Vital Signs Temp Pulse Resp BP Pulse Ox O2 Del Method FiO2 10/07/23 14:00 96 16 159/86 H 10/07/23 12:27 Room Air 10/07/23 11:00 Room Air 10/07/23 08:00 96 10/07/23 04:00 87 10/07/23 00:00 93 10/07/23 20:00 94 10/07/23 05:33 97.1 F L 92 13 122/80 94 10/06/23 20:00 87 13 100 Room Air 94 10/06/23 21:20 96.9 F L 87 13 151/89 H 100 10/06/23 16:00 101 H 10/06/23 12:00 88 Intake/Output Intake/Output: Intake & Output 10/04/23 10/05/23 10/06/23 10/07/23 23:59 23:59 23:59 23:59 Intake Total 2820 900 Output Total 2086 Balance 2820 -1186 Meds/Results Medications: Active Medications Generic Name Dose Route Start Last Admin Trade Name Freq PRN Reason Stop Dose Admin Acetaminophen 650 mg 10/06/23 13:47 10/07/23 10:19 Acetaminophen 325 Mg Tablet PO 650 mg Q4H PRN Administration Mild Pain (1-3) or Fever Albuterol 1 puff 10/06/23 09:13 Albuter
--- NOTE | 2023-10-07 14:27 | P.PNNP_ITS ---
Progress Note: A&P Assessment and Plan (1) End stage renal disease: Code(s): N18.6 - End stage renal disease Status: Chronic Assessment and Plan: * resume CCPD this evening * attempt to minimize fluid removal given admission hypotension * follow electrolytes, volume status, and clearance (2) Hypotension: Code(s): I95.9 - Hypotension, unspecified Status: Acute Assessment and Plan: * as noted on presentation * responded well to IVF resuscitation * concern is possible sepsis (see #3) * however, too aggressive ultrafiltration with CCPD could be to blame as well * BP medications on hold * follow trend of hemodynamics (3) Sepsis: Qualifiers: Sepsis acute organ dysfunction status: unspecified Sepsis type: sepsis due to unspecified organism Qualified Code(s): A41.9 - Sepsis, unspecified organism Code(s): A41.9 - Sepsis, unspecified organism Status: Acute Assessment and Plan: * as suggested by admission with hypotension, tachycardia and lactic acidosis * source of infection not clear * CXR negative * PD fluid clear and benign abdominal exam * does have diarrhea -- stool studies negative on last hospitalization * follow culture data * empirically on antibiotics (4) Hypokalemia: Code(s): E87.6 - Hypokalemia Status: Acute Assessment and Plan: * replace today and PRN * replete magnesium as well * may need chronic scheduled K+ * follow trend (5) Hyponatremia: Code(s): E87.1 - Hypo-osmolality and hyponatremia Status: Acute Assessment and Plan: * likely related to ESRD and increased free water intake * if worsens, consider fluid restriction * follow trend (6) HTN (hypertension): Code(s): I10 - Essential (primary) hypertension Status: Chronic Assessment and Plan: * despite known history, low BP on presentation * BP medications on hold for now * follow trend of hemodynamics (7) Generalized weakness: Code(s): R53.1 - Weakness Status: Acute Assessment and Plan: * related to low BP, acute illness, and possibly recent hospitalization * PT/OT * continue supportive therapy Will continue to follow. Subjective Date/time seen: 10/07/23 14:27 Interval history: Follow-up for end stage renal disease on peritoneal dialysis. Tolerated CCPD treatment overnight without any issues or problems (overnight PD treatment supervised -- seen at 2:15PM); blood pressure has remained stable if not better at this time; no apparent distress voiced at the time of my visit; mother at bedside at the time of my visit and we discussed the situation. Exam Narrative: General: WD/WN male in NAD Heart: normal S1 and S2; no rub Lungs: clear to auscultation Abdomen: soft, nontender, nondistended, positive bowel sounds Extremities: no cyanosis or clubbing; no edema Skin: warm and dry Objective Data Vital Signs Vital Signs: Vital Signs Temp Pulse Resp BP Pulse Ox O2 Del Method FiO2 10/07/23 14:00 96 16 159/86 H 10/07/23 12:27 Room Air 10/07/23 11:00 Room Air 10/07/23 08:00 96 10/07/23 04:00 87 10/07/23 00:00 93 10/07/23 20:00 94 10/07/23 05:33 97.1 F L 92 13 122/80 94 10/06/23 20:00 87
[2023-10-07 15:43] LABS: Magnesium 1.5 mg/dL (1.6-2.3)
[2023-10-07] MEDS: MAGNESIUM SULF 2 GM/WATER 50ML 2 GM/50 ML BAG IVPB (18:12)
[2023-10-07] MEDS: NORTRIPTYLINE HCL 25 MG CAPSULE 50 MG PO (20:20)
[2023-10-07] MEDS: MELATONIN 5 MG TABLET 20 MG PO (20:21)
[2023-10-08] VITALS (10 sets, daily range): BP systolic 122–159; BP diastolic 79–93; PULSE 81–96; RESP 12–20; TEMP 36.2–37.1; O2SAT 94–98
[2023-10-08 01:40] LABS: Vancomycin Random 27.4 ug/mL (10-20)
[2023-10-08 06:21] LABS: Basophils Percent Auto 0.4 % (0.2-1.2); Eosinophils Absolute Auto 1.5 K/mm3 (0-0.3); Hematocrit 29.4 % (42.0-52.0); Hemoglobin 10.2 g/dL (14.0-18.0); Immature Granulocyte Absolute 0.05 K/mm3 (0.00-0.031); Immature Granulocyte Percent A 0.5 % (0-0.5); Lymphocytes Absolute Auto 1.71 K/mm3 (0.9-3.2); Lymphocytes Percent Auto 15.6 % (18.3-44.2); Mean Corpuscular HGB Conc 34.7 g/dl (32-36); Mean Corpuscular Hemoglobin 33.3 pg (26-34); Mean Corpuscular Volume 96.1 fl (80-100); Mean Platelet Volume 8.9 fl (7.4-10.4); Monocytes Absolute Auto 1.5 K/mm3 (0.1-0.6); Monocytes Percent Auto 13.5 % (2.6-8.5); Neutrophils Absolute Auto 6.1 K/mm3 (1.3-6.7); Platelet Count Result 311 k/mm3 (150-375); Red Blood Count 3.06 M/mm3 (4.6-6.20); Red Cell Distribution Width 13.3 % (11.5-14.5)
[2023-10-08 06:32] LABS: Albumin Level 3.3 g/dL (3.5-5.1); Anion Gap 20 mmol/L (4-12); Blood Urea Nitrogen 53 mg/dL (9-20); Calcium 7.3 mg/dL (8.4-10.2); Carbon Dioxide 18 mmol/L (22-30); Chloride 89 mmol/L (98-107); Estimated CRCL calculation 7 ml/min; Estimated Glomerular Filt Rate 4; Glucose 88 mg/dL (65-110); Magnesium 1.9 mg/dL (1.6-2.3); Phosphorus 7.9 mg/dL (2.5-4.5); Potassium 2.7 mmol/L (3.4-5.0); Sodium 127 mmol/L (137-145)
--- NOTE | 2023-10-08 08:13 | PM.IMPN ---
Progress Note: A&P Assessment and Plan (1) End stage kidney disease: Code(s): N18.6 - End stage renal disease Status: Acute Assessment and Plan: On peritoneal dialysis Continue peritoneal dialysis - consult to nephrology (2) HTN (hypertension): Code(s): I10 - Essential (primary) hypertension Status: Chronic Assessment and Plan: holding amlodipine and labetolol -reviewed and stable- monitor (3) Peripheral vascular disease: Code(s): I73.9 - Peripheral vascular disease, unspecified Status: Acute Assessment and Plan: Unchanged (4) Tobacco abuse: Code(s): Z72.0 - Tobacco use Status: Acute Assessment and Plan: Nicotine patch as needed (5) Polyneuropathy: Code(s): G62.9 - Polyneuropathy, unspecified Status: Acute Assessment and Plan: Continue gabapentin and duloxetine (6) Peritoneal dialysis catheter in place: Code(s): Z99.2 - Dependence on renal dialysis Status: Acute Assessment and Plan: Local care (7) Electrolyte abnormality: Code(s): E87.8 - Other disorders of electrolyte and fluid balance, not elsewhere classified Status: Acute Assessment and Plan: 10/06- wbc improved 12.4 (14.2) K is 3- will order replacement, MG is ordered and replaced if low, hyponatremia- nephrology is following- appreciate recommendations 10/09- K drops even more- 40 meq with breakfast, 40 with lunch- close monitoring, fluid restriction for hyponatremia per Dr Dennis Plan will stop vanc as there is no indications for it Time Spent With Patient Time with patient: Greater than 35 minutes Subjective Date/time seen: 10/08/23 08:13 Interval history: Interval history: Narrative retrieved from H/P: This is a 53-year-old male with past medical history significant for hypertension, end-stage disease on peritoneal dialysis, peripheral neuropathy. Patient recently discharged from [facility] treated for likely infection however source was not identified. Comes back today with complaints of generalized weakness, feeling overall unwell, denies fevers, rigors, chills, cough, sputum production, chest congestion, chest pain, lightheadedness. Patient uses peritoneal dialysis every night. Preliminary workup has been essentially nonrevealing. 10/05- pt is seen and examined. Holding bp meds for now. weakness- awaiting nephrology consult. denies chest pain, sob. 10/06- pt is seen this am. BP stable- holding BP meds. Nephrology saw him last night, Dr Dennis. he is c/o ears pressure- ear exam completed- unable to see ear drums rt ear due to ear wax- lt ear partially visualized- membrane is intact, non bulging. will need to f/u with pcp/ent when discharged. PT/OT ordered. Need to get out of bed- will get him wheelchair for stability 10/07- seen and examined today. In bed- uneventful night. K is low this am- nephrology notified and ordered received. pt is on fluid restrictions for hyponatremia. Walked with a walker yesterday. Review of Systems Review of Systems: Generalized weakness Constitutional: Constitutional: Denies chills Eyes: Eyes: Denies photophobia ENT: Denies nasal congestion Cardiovascular: Cardiovascular: Denies chest pain, Denies diaphoresis and Denies leg edema Respiratory: Respiratory: Denies chest congestion and Denies cough Gastrointestinal: Gastrointestinal: Denies abdominal pain Musculoskeletal: Musculoskeletal: Denies back pain Psychiatric: Psychiatric: Denies anxiety Exam Narrative: Laying in a stretcher Const: General: comfortable, no acute distress, well developed, alert, awake and obese Nutritional Appearance: obese Orientation/consciousness: patient oriented x3 HENMT: Head: normal to inspection, normocephalic and atraumatic Ears: hearing grossly normal bilaterally Face/Nose/Sinus: normal facial exam Face and sinus: normal facial exam Eyes: General: appeara
[2023-10-08] MEDS: ACETAMINOPHEN 325 MG TABLET 650 MG PO ×2 (09:19→20:38)
[2023-10-08] MEDS: POTASSIUM CHLORIDE 20 MEQ ER TABLET 40 MEQ PO ×2 (09:21→12:45)
[2023-10-08] MEDS: MULTIVITAMINS THERAPEUTIC TAB (*BKC) 1 TABLET PO (09:22)
[2023-10-08] MEDS: LORATADINE 10 MG TABLET PO (09:22)
[2023-10-08] MEDS: busPIRone HCL 10 MG TABLET PO ×3 (09:22→17:47)
[2023-10-08] MEDS: CINACALCET 30 MG TABLET 90 MG PO (09:22)
[2023-10-08] MEDS: GABAPENTIN 300 MG CAPSULE PO ×3 (09:22→17:47)
[2023-10-08] MEDS: EPOETIN ALFA-EPBX 10,000 UNITS/ML VIAL 10000 UNITS SUB-Q (09:23)
--- NOTE | 2023-10-08 14:33 | P.PNNP_ITS ---
Progress Note: A&P Assessment and Plan (1) End stage renal disease: Code(s): N18.6 - End stage renal disease Status: Chronic Assessment and Plan: * continue nightly CCPD * tolerating treatments well * follow electrolytes, volume status, and clearance (2) Hypotension: Code(s): I95.9 - Hypotension, unspecified Status: Acute Assessment and Plan: * as noted on presentation * responded well to IVF resuscitation * concern is possible sepsis (see #3) * however, too aggressive ultrafiltration with CCPD could be to blame as well * BP medications on hold * follow trend of hemodynamics (3) Sepsis: Qualifiers: Sepsis acute organ dysfunction status: unspecified Sepsis type: sepsis due to unspecified organism Qualified Code(s): A41.9 - Sepsis, unspecified organism Code(s): A41.9 - Sepsis, unspecified organism Status: Acute Assessment and Plan: * as suggested by admission with hypotension, tachycardia and lactic acidosis * source of infection not clear * CXR negative * PD fluid clear and benign abdominal exam * does have diarrhea -- stool studies negative on last hospitalization * follow culture data * empirically on antibiotics (4) Hypokalemia: Code(s): E87.6 - Hypokalemia Status: Acute Assessment and Plan: * replace today and PRN * replete magnesium PRN as well * may need chronic scheduled K+ * follow trend (5) Hyponatremia: Code(s): E87.1 - Hypo-osmolality and hyponatremia Status: Acute Assessment and Plan: * likely related to ESRD and increased free water intake * fluid restriction added * follow trend (6) HTN (hypertension): Code(s): I10 - Essential (primary) hypertension Status: Chronic Assessment and Plan: * despite known history, low BP on presentation * BP medications on hold for now * follow trend of hemodynamics (7) Generalized weakness: Code(s): R53.1 - Weakness Status: Acute Assessment and Plan: * related to low BP, acute illness, and possibly recent hospitalization * PT/OT * continue supportive therapy Will continue to follow. Subjective Date/time seen: 10/08/23 13:10 Interval history: Follow-up for end stage renal disease on peritoneal dialysis. Tolerated peritoneal dialysis treatment yesterday evening without any issues or problems; blood pressure remains stable as well; no apparent distress noted; no other acute complaints at the time of my visit. Exam Narrative: General: WD/WN male in NAD Heart: normal S1 and S2; no rub Lungs: clear to auscultation Abdomen: soft, nontender, nondistended, positive bowel sounds Extremities: no cyanosis or clubbing; no edema Skin: warm and intact Objective Data Vital Signs Vital Signs: Vital Signs Temp Pulse Resp BP Pulse Ox O2 Del Method FiO2 10/08/23 12:00 86 10/08/23 08:25 96 16 159/86 H 10/08/23 09:27 Room Air 10/08/23 09:00 Room Air 10/08/23 08:00 96 10/08/23 04:00 87 10/08/23 00:00 93 10/07/23 20:00 94 10/08/23 05:33 97.1 F L 92 13 122/80 94 10/07/23 20:00 87 13 100 Room Air 94 10/07/23 21:20 96.9 F L 87 13 151/89 H 100 10/07/23 16:00
--- NOTE | 2023-10-08 14:33 | PM.PNNEP ---
Progress Note: A&P Assessment and Plan (1) End stage renal disease: Code(s): N18.6 - End stage renal disease Status: Chronic Assessment and Plan: continue nightly CCPD tolerating treatments well follow electrolytes, volume status, and clearance (2) Hypotension: Code(s): I95.9 - Hypotension, unspecified Status: Acute Assessment and Plan: as noted on presentation responded well to IVF resuscitation concern is possible sepsis (see #3) however, too aggressive ultrafiltration with CCPD could be to blame as well BP medications on hold follow trend of hemodynamics (3) Sepsis: Qualifiers: Sepsis acute organ dysfunction status: unspecified Sepsis type: sepsis due to unspecified organism Qualified Code(s): A41.9 - Sepsis, unspecified organism Code(s): A41.9 - Sepsis, unspecified organism Status: Acute Assessment and Plan: as suggested by admission with hypotension, tachycardia and lactic acidosis source of infection not clear CXR negative PD fluid clear and benign abdominal exam does have diarrhea -- stool studies negative on last hospitalization follow culture data empirically on antibiotics (4) Hypokalemia: Code(s): E87.6 - Hypokalemia Status: Acute Assessment and Plan: replace today and PRN replete magnesium PRN as well may need chronic scheduled K+ follow trend (5) Hyponatremia: Code(s): E87.1 - Hypo-osmolality and hyponatremia Status: Acute Assessment and Plan: likely related to ESRD and increased free water intake fluid restriction added follow trend (6) HTN (hypertension): Code(s): I10 - Essential (primary) hypertension Status: Chronic Assessment and Plan: despite known history, low BP on presentation BP medications on hold for now follow trend of hemodynamics (7) Generalized weakness: Code(s): R53.1 - Weakness Status: Acute Assessment and Plan: related to low BP, acute illness, and possibly recent hospitalization PT/OT continue supportive therapy Will continue to follow. Subjective Date/time seen: 10/08/23 13:10 Interval history: Follow-up for end stage renal disease on peritoneal dialysis. Tolerated peritoneal dialysis treatment yesterday evening without any issues or problems; blood pressure remains stable as well; no apparent distress noted; no other acute complaints at the time of my visit. Exam Narrative: General: WD/WN male in NAD Heart: normal S1 and S2; no rub Lungs: clear to auscultation Abdomen: soft, nontender, nondistended, positive bowel sounds Extremities: no cyanosis or clubbing; no edema Skin: warm and intact Objective Data Vital Signs Vital Signs: Vital Signs Temp Pulse Resp BP Pulse Ox O2 Del Method FiO2 10/08/23 12:00 86 10/08/23 08:25 96 16 159/86 H 10/08/23 09:27 Room Air 10/08/23 09:00 Room Air 10/08/23 08:00 96 10/08/23 04:00 87 10/08/23 00:00 93 10/07/23 20:00 94 10/08/23 05:33 97.1 F L 92 13 122/80 94 10/07/23 20:00 87 13 100 Room Air 94 10/07/23 21:20 96.9 F L 87 13 151/89 H 100 10/07/23 16:00 101 H Intake/Output Intake/Output: Intake & Output 10/05/23 10/06/23 10/07/23 10/08/23 23:59 23:59 23:59 23:59 Intake Total 2820 2040 725 Output Total 2086 448 Balance 2820 -46 277 Meds/Results Medications: Active Medications Generic Name Dose Route Start Last Admin Trade Name Freq PRN Reason Stop Dose Admin Acetaminophen 650 mg 10/06/23 13:47 10/08/23 09:19 Acetaminophen 325 Mg Tablet PO 650 mg Q4H PRN Administration Mild Pain (1-3) or Fever Albuterol 1 puff 10/06/23 09:13 Albuterol Sulfate (*Sp) Aerosol 1 Puff INHALATION QIDRT PRN shortness of breath or wheezing Buspirone HCl 10 mg 10/06/23 09:20
[2023-10-08 15:13] LABS: Potassium 3.2 mmol/L (3.4-5.0)
[2023-10-08] MEDS: MELATONIN 5 MG TABLET 20 MG PO (20:38)
[2023-10-08] MEDS: NORTRIPTYLINE HCL 25 MG CAPSULE 50 MG PO (20:38)
[2023-10-08] MEDS: ONDANSETRON HCL ODT 4 MG TABLET PO (20:39)
[2023-10-08] MEDS: DIPHENOXYLATE/ATROPINE (*CRX) 2.5 MG TABLET 1 TABLET PO (20:39)
[2023-10-09] VITALS (8 sets, daily range): BP systolic 121–141; BP diastolic 72–95; PULSE 76–95; RESP 18; TEMP 36.3–36.6; O2SAT 94–98
[2023-10-09 05:45] LABS: Basophils Absolute Auto 0.1 K/mm3 (0.0-0.1); Basophils Percent Auto 0.5 % (0.2-1.2); Eosinophils Absolute Auto 1.8 K/mm3 (0-0.3); Hematocrit 30.9 % (42.0-52.0); Hemoglobin 10.4 g/dL (14.0-18.0); Immature Granulocyte Absolute 0.06 K/mm3 (0.00-0.031); Immature Granulocyte Percent A 0.5 % (0-0.5); Mean Corpuscular HGB Conc 33.7 g/dl (32-36); Mean Corpuscular Hemoglobin 32.7 pg (26-34); Mean Corpuscular Volume 97.2 fl (80-100); Monocytes Absolute Auto 1.5 K/mm3 (0.1-0.6); Monocytes Percent Auto 13.4 % (2.6-8.5); Neutrophils Absolute Auto 6.4 K/mm3 (1.3-6.7); Neutrophils Percent Auto 55.6 % (45.5-73.1); Platelet Count Result 334 k/mm3 (150-375); Red Blood Count 3.18 M/mm3 (4.6-6.20); Red Cell Distribution Width 13.1 % (11.5-14.5); White Blood Count 11.4 K/mm3 (4.5-10.0)
[2023-10-09 06:03] LABS: Albumin Level 3.5 g/dL (3.5-5.1); Anion Gap 17 mmol/L (4-12); Blood Urea Nitrogen 51 mg/dL (9-20); Calcium 7.8 mg/dL (8.4-10.2); Carbon Dioxide 19 mmol/L (22-30); Chloride 92 mmol/L (98-107); Estimated CRCL calculation 7 ml/min; Estimated Glomerular Filt Rate 3; Glucose 99 mg/dL (65-110); Magnesium 1.8 mg/dL (1.6-2.3); Phosphorus 8.4 mg/dL (2.5-4.5); Potassium 3.1 mmol/L (3.4-5.0); Sodium 128 mmol/L (137-145)
[2023-10-09 07:22] LABS: Platelet Estimate Adequate (Adequate)
[2023-10-09 07:25] LABS: Anisocytosis 1+; Schistocytes Rare
--- NOTE | 2023-10-09 08:29 | PM.IMPN ---
Progress Note: A&P Assessment and Plan (1) End stage kidney disease: Code(s): N18.6 - End stage renal disease Status: Acute Assessment and Plan: On peritoneal dialysis nightly Continue peritoneal dialysis - consult to nephrology follow electrolytes, volume status (2) HTN (hypertension): Code(s): I10 - Essential (primary) hypertension Status: Chronic Assessment and Plan: holding amlodipine and labetolol -reviewed and stable- monitor - tsh ordered (3) Peripheral vascular disease: Code(s): I73.9 - Peripheral vascular disease, unspecified Status: Acute Assessment and Plan: Unchanged (4) Tobacco abuse: Code(s): Z72.0 - Tobacco use Status: Acute Assessment and Plan: Nicotine patch as needed (5) Polyneuropathy: Code(s): G62.9 - Polyneuropathy, unspecified Status: Acute Assessment and Plan: Continue gabapentin and duloxetine - pt is on very large dose of ovidio- discussed - restless night due to pain - will add one time norco to see if taht would help (6) Peritoneal dialysis catheter in place: Code(s): Z99.2 - Dependence on renal dialysis Status: Acute Assessment and Plan: Local care (7) Electrolyte abnormality: Code(s): E87.8 - Other disorders of electrolyte and fluid balance, not elsewhere classified Status: Acute Assessment and Plan: 10/06- wbc improved 12.4 (14.2) K is 3- will order replacement, MG is ordered and replaced if low, hyponatremia- nephrology is following- appreciate recommendations 10/07- K drops even more- 40 meq with breakfast, 40 with lunch- close monitoring, fluid restriction for hyponatremia per Dr Dennis 10/08- k replaced and monitor- may need to be on daily dose hyponatremia- fluid restrictions in place, nephrolohy is following (8) Sepsis: Code(s): A41.9 - Sepsis, unspecified organism Status: Acute Assessment and Plan: - recent hospitalization for sepsis with unclear etiology - -hypotension (though some confusion from pt on his BP meds-which could of lead to hypotension), tachy and lactic acidosis on admission - was on antibiotics but 10/07 stopped - monitor cbc, vitals. Plan # Diarrhea Subjective Date/time seen: 10/09/23 08:29 Interval history: Narrative retrieved from H/P: This is a 53-year-old male with past medical history significant for hypertension, end-stage disease on peritoneal dialysis, peripheral neuropathy. Patient recently discharged from [facility] treated for likely infection however source was not identified. Comes back today with complaints of generalized weakness, feeling overall unwell, denies fevers, rigors, chills, cough, sputum production, chest congestion, chest pain, lightheadedness. Patient uses peritoneal dialysis every night. Preliminary workup has been essentially nonrevealing. 10/05- pt is seen and examined. Holding bp meds for now. weakness- awaiting nephrology consult. denies chest pain, sob. 10/06- pt is seen this am. BP stable- holding BP meds. Nephrology saw him last night, Dr Dennis. he is c/o ears pressure- ear exam completed- unable to see ear drums rt ear due to ear wax- lt ear partially visualized- membrane is intact, non bulging. will need to f/u with pcp/ent when discharged. PT/OT ordered. Need to get out of bed- will get him wheelchair for stability 10/07- seen and examined today. In bed- uneventful night. K is low this am- nephrology notified and ordered received. pt is on fluid restrictions for hyponatremia. Walked with a walker yesterday. 10/08- tolerated peritoneal dialysis well last night. working with PT/OT Review of Systems Review of Systems: Generalized weakness Constitutional: Constitutional: Denies chills Eyes: Eyes: Denies photophobia ENT: Denies nasal congestion Cardiovascular: Cardiovascular: Denies chest pain, Denies diaphoresis and Denies leg edema Resp
[2023-10-09] MEDS: LIDOCAINE 5% PATCH 1 PATCH TRANSDERM (09:59)
[2023-10-09] MEDS: busPIRone HCL 10 MG TABLET PO ×3 (10:00→17:43)
[2023-10-09] MEDS: CINACALCET 30 MG TABLET 90 MG PO (10:00)
[2023-10-09] MEDS: LORATADINE 10 MG TABLET PO (10:00)
[2023-10-09] MEDS: MULTIVITAMINS THERAPEUTIC TAB (*BKC) 1 TABLET PO (10:00)
[2023-10-09] MEDS: GABAPENTIN 300 MG CAPSULE PO ×3 (10:00→17:43)
--- NOTE | 2023-10-09 12:18 | PCPTNOTE ---
The patient treatment was not able to be completed at this time due to patient having increased pain in bilateral feet due to neuropathy. Will plan to continue treatment per plan of care.
[2023-10-09] MEDS: POTASSIUM CHLORIDE 20 MEQ ER TABLET 40 MEQ PO (12:35)
--- NOTE | 2023-10-09 12:55 | P.PNNP_ITS ---
Progress Note: A&P Assessment and Plan (1) End stage renal disease: Code(s): N18.6 - End stage renal disease Status: Chronic Assessment and Plan: * continue nightly CCPD * tolerating treatments well * he still has a lot of swelling. * He is generally on reds and greens at home because he has so much swelling. It is severe not quite to the point of weeping. He is always been on reds and greens and his blood pressure has generally been good to generous. * (2) Hypotension: Code(s): I95.9 - Hypotension, unspecified Status: Acute Assessment and Plan: * as noted on presentation * responded well to IVF resuscitation * concern is possible sepsis (see #3) * It is unclear why he would be hypotensive. He is been on the same bags as before. He eats and drinks plenty of fluid and salt. * The hypotension could be something unrelated such as cardiac disease or hormonal. Will check an echo and also a cortisol level as well as a TSH. (3) Sepsis: Qualifiers: Sepsis acute organ dysfunction status: unspecified Sepsis type: sepsis due to unspecified organism Qualified Code(s): A41.9 - Sepsis, unspecified organism Code(s): A41.9 - Sepsis, unspecified organism Status: Acute Assessment and Plan: * as suggested by admission with hypotension, tachycardia and lactic acidosis * source of infection not clear * Cultures are all negative * CXR negative * PD fluid clear and benign abdominal exam * he has had chronic diarrhea. * Consider GI consult (4) Hypokalemia: Code(s): E87.6 - Hypokalemia Status: Acute Assessment and Plan: * replace today and PRN * replete magnesium PRN as well * may need chronic scheduled K+ * potassium is 3.1 He is getting KCl 40 mEq today. (5) Hyponatremia: Code(s): E87.1 - Hypo-osmolality and hyponatremia Status: Acute Assessment and Plan: * likely related to ESRD and increased free water intake * fluid restriction added * follow trend (6) HTN (hypertension): Code(s): I10 - Essential (primary) hypertension Status: Chronic Assessment and Plan: * despite known history, low BP on presentation * BP medications on hold for now * follow trend of hemodynamics (7) Generalized weakness: Code(s): R53.1 - Weakness Status: Acute Assessment and Plan: * related to low BP, acute illness, and possibly recent hospitalization * He also has severe neuropathy which leads to more of a sedentary state. * PT/OT * continue supportive therapy Subjective Date/time seen: 10/09/23 12:55 Interval history: see feels okay today. No chest pain or shortness of breath. He has some swelling still but seems better than when he was at outpatient. His tremor is better Exam Narrative: General: WD/WN male in NAD Heart: normal S1 and S2; no rub or gallop Lungs: clear to auscultation Abdomen: soft, nontender, nondistended, positive bowel sounds Extremities: no cyanosis or clubbing; 2+ bilateral edema but much better than as an outpatient Skin: no rash Objective Data Vital Signs Vital Signs: Vital Signs - 24 hr 10/08/23 16:00 10/08/23 16:27 10/08/23 20:16 Temperature 97.3 F L 98.7 F Pulse Rate 84 81 88 Respiratory Rate 12 20 Blood Pressure 139/79 143/93 H
--- NOTE | 2023-10-09 12:55 | PM.PNNEP ---
Progress Note: A&P Assessment and Plan (1) End stage renal disease: Code(s): N18.6 - End stage renal disease Status: Chronic Assessment and Plan: continue nightly CCPD tolerating treatments well he still has a lot of swelling. He is generally on reds and greens at home because he has so much swelling. It is severe not quite to the point of weeping. He is always been on reds and greens and his blood pressure has generally been good to generous. (2) Hypotension: Code(s): I95.9 - Hypotension, unspecified Status: Acute Assessment and Plan: as noted on presentation responded well to IVF resuscitation concern is possible sepsis (see #3) It is unclear why he would be hypotensive. He is been on the same bags as before. He eats and drinks plenty of fluid and salt. The hypotension could be something unrelated such as cardiac disease or hormonal. Will check an echo and also a cortisol level as well as a TSH. (3) Sepsis: Qualifiers: Sepsis acute organ dysfunction status: unspecified Sepsis type: sepsis due to unspecified organism Qualified Code(s): A41.9 - Sepsis, unspecified organism Code(s): A41.9 - Sepsis, unspecified organism Status: Acute Assessment and Plan: as suggested by admission with hypotension, tachycardia and lactic acidosis source of infection not clear Cultures are all negative CXR negative PD fluid clear and benign abdominal exam he has had chronic diarrhea. Consider GI consult (4) Hypokalemia: Code(s): E87.6 - Hypokalemia Status: Acute Assessment and Plan: replace today and PRN replete magnesium PRN as well may need chronic scheduled K+ potassium is 3.1 He is getting KCl 40 mEq today. (5) Hyponatremia: Code(s): E87.1 - Hypo-osmolality and hyponatremia Status: Acute Assessment and Plan: likely related to ESRD and increased free water intake fluid restriction added follow trend (6) HTN (hypertension): Code(s): I10 - Essential (primary) hypertension Status: Chronic Assessment and Plan: despite known history, low BP on presentation BP medications on hold for now follow trend of hemodynamics (7) Generalized weakness: Code(s): R53.1 - Weakness Status: Acute Assessment and Plan: related to low BP, acute illness, and possibly recent hospitalization He also has severe neuropathy which leads to more of a sedentary state. PT/OT continue supportive therapy Subjective Date/time seen: 10/09/23 12:55 Interval history: see feels okay today. No chest pain or shortness of breath. He has some swelling still but seems better than when he was at outpatient. His tremor is better Exam Narrative: General: WD/WN male in NAD Heart: normal S1 and S2; no rub or gallop Lungs: clear to auscultation Abdomen: soft, nontender, nondistended, positive bowel sounds Extremities: no cyanosis or clubbing; 2+ bilateral edema but much better than as an outpatient Skin: no rash Objective Data Vital Signs Vital Signs: Vital Signs - 24 hr 10/08/23 16:00 10/08/23 16:27 10/08/23 20:16 Temperature 97.3 F L 98.7 F Pulse Rate 84 81 88 Respiratory Rate 12 20 Blood Pressure 139/79 143/93 H Pulse Oximetry 96 98 Oxygen Delivery Fraction of Inspired Oxygen 10/08/23 20:00 10/09/23 05:04 10/08/23 20:00 Temperature 97.3 F L Pulse Rate 88 92 96 Respiratory Rate 20 18 Blood Pressure 138/95 H Pulse Oximetry 98 94 Oxygen Delivery Room Air Fraction of Inspired Oxygen 94 10/09/23 00:00 10/09/23 04:00 10/09/23 10:00 Temperature Pulse Rate 76 88 95 Respiratory Rate Blood Pressure Pulse Oximetry Oxygen Delivery Fraction of Inspired Oxygen Intake/Output Intake/Output: Intake & Output 10/06/23 10/07/23 10/08/23 10/09/23 23:59 23:59 23:59 23
--- NOTE | 2023-10-09 12:58 | ECHO_ITS ---
Patient Info Name: Real Rolon Age: 53 years : 1970 Gender: Male Ht: 70 in Wt: 240 lbs BSA: 2.36 m2 HR: 88 bpm BP: 138 / 95 mmHg Heart Rhythm: Sinus Rhythm Technical Quality: Good Exam Date: 10/09/2023 1:44 PM Exam Location: Echo Lab Patient Status: Inpatient Admit Date: 10/08/2023 Staff Ordering Physician: Xavier Marcus MD Plastic Bubble Packer: Tima Chris RDCS Attending Provider: Heidi Powell MD Referring Physician: Angeline THOMASON; Exam Type: CA echo doppler color flow Study Info Indications - hypotension, and swelling Complete two-dimensional, color flow and Doppler transthoracic echocardiogram is performed. Summary 1. Complete two-dimensional, color flow and Doppler transthoracic echocardiogram is performed. 2. Mild concentric left ventricular hypertrophy with normal systolic function grade 1 diastolic noncompliance. 3. No valvular dysfunction. 4. Mild mitral annular calcification. Left Ventricle Left ventricular chamber dimension is normal. Left ventricular systolic function is normal, estimated at 55-60%. There is mild concentric increased left ventricular wall thickness. The left ventricular diastolic function is grade I diastolic dysfunction. Right Ventricle Right ventricular chamber dimension is normal. Left Atria Left atrial chamber dimension is normal. Right Atria Right atrial chamber dimension is normal. Aortic Valve The aortic valve is normal. Pulmonic Valve The pulmonic valve is normal. Mitral Valve The mitral valve has normal leaflets. The mitral valve annulus is mildly calcified. Tricuspid Valve The tricuspid valve leaflets are normal. Pericardium/Pleural The pericardium appears normal. Aorta The aortic root size at the sinus of Valsalva is normal. Left Ventricular Outflow Tract Name Value Normal LVOT 2D LVOT Diameter 2.0 cm LVOT Doppler LVOT Peak Gradient 7 mmHg LVOT Mean Gradient 4 mmHg LVOT VTI 29 cm LVOT VTI/AV VTI Ratio 1.2 LVOT Stroke Volume 86 ml LVOT CO 7.0 l/min LVOT CI 3.0 l/min/m2 Pulmonic Valve Name Value Normal PV Doppler PV Peak Gradient 6 mmHg Mitral Valve Name Value Normal MV Doppler MV Decel [place] 572 cm/s2 MV PHT 53 ms MV Area (PHT) 4.2 cm2 4.0-5.0 MV Diastolic Function MV E Peak Velocity 104 cm/s
[2023-10-09] MEDS: HYDROcodone/acetaminophen (*CRX) 5-325 MG TABLET 1 TAB PO ×2 (13:39→20:20)
[2023-10-09 14:22] LABS: Thyroid Stimulating Hormone Reflex 0.735 uIU/mL (0.465-4.68)
[2023-10-09] MEDS: GENTAMICIN SULFATE 0.1% CR 15 GM TUBE 1 APPLIC TOPICAL (20:05)
[2023-10-09] MEDS: NORTRIPTYLINE HCL 25 MG CAPSULE 50 MG PO (20:19)
[2023-10-09] MEDS: DIPHENOXYLATE/ATROPINE (*CRX) 2.5 MG TABLET 1 TABLET PO (20:20)
[2023-10-09] MEDS: MELATONIN 5 MG TABLET 20 MG PO (20:20)
[2023-10-10] MEDS: HYDROcodone/acetaminophen (*CRX) 5-325 MG TABLET 1 TAB PO ×4 (02:32→23:19)
[2023-10-10 05:25] VITALS: BP 136/96; PULSE 90; RESP 20; TEMP 36.4; O2SAT 93
[2023-10-10 06:41] LABS: Basophils Absolute Auto 0.1 K/mm3 (0.0-0.1); Basophils Percent Auto 0.8 % (0.2-1.2); Eosinophils Absolute Auto 1.7 K/mm3 (0-0.3); Eosinophils Percent Auto 16.2 % (0-4.4); Hematocrit 30.9 % (42.0-52.0); Hemoglobin 10.7 g/dL (14.0-18.0); Immature Granulocyte Absolute 0.07 K/mm3 (0.00-0.031); Immature Granulocyte Percent A 0.7 % (0-0.5); Lymphocytes Absolute Auto 1.72 K/mm3 (0.9-3.2); Lymphocytes Percent Auto 16.3 % (18.3-44.2); Mean Corpuscular HGB Conc 34.6 g/dl (32-36); Mean Corpuscular Hemoglobin 33.6 pg (26-34); Mean Corpuscular Volume 97.2 fl (80-100); Mean Platelet Volume 9.1 fl (7.4-10.4); Monocytes Absolute Auto 1.5 K/mm3 (0.1-0.6); Monocytes Percent Auto 13.7 % (2.6-8.5); Neutrophils Absolute Auto 5.6 K/mm3 (1.3-6.7); Neutrophils Percent Auto 52.3 % (45.5-73.1); Platelet Count Result 344 k/mm3 (150-375); Red Blood Count 3.18 M/mm3 (4.6-6.20); Red Cell Distribution Width 13.3 % (11.5-14.5); White Blood Count 10.6 K/mm3 (4.5-10.0)
[2023-10-10 07:00] LABS: Albumin Level 3.4 g/dL (3.5-5.1); Anion Gap 17 mmol/L (4-12); Blood Urea Nitrogen 50 mg/dL (9-20); Calcium 7.7 mg/dL (8.4-10.2); Carbon Dioxide 22 mmol/L (22-30); Chloride 90 mmol/L (98-107); Estimated CRCL calculation 7 ml/min; Estimated Glomerular Filt Rate 4; Glucose 93 mg/dL (65-110); Magnesium 1.7 mg/dL (1.6-2.3); Phosphorus 8.3 mg/dL (2.5-4.5); Potassium 3.2 mmol/L (3.4-5.0); Sodium 129 mmol/L (137-145)
--- NOTE | 2023-10-10 07:51 | PM.IMPN ---
Progress Note: A&P Assessment and Plan (1) End stage kidney disease: Code(s): N18.6 - End stage renal disease Status: Acute Assessment and Plan: On peritoneal dialysis nightly Continue peritoneal dialysis - consult to nephrology follow electrolytes, volume status - improved today- 10/09 (2) HTN (hypertension): Code(s): I10 - Essential (primary) hypertension Status: Chronic Assessment and Plan: holding amlodipine and labetolol -reviewed and stable- monitor - tsh ordered- WNL (3) Peripheral vascular disease: Code(s): I73.9 - Peripheral vascular disease, unspecified Status: Acute Assessment and Plan: Unchanged (4) Tobacco abuse: Code(s): Z72.0 - Tobacco use Status: Acute Assessment and Plan: Nicotine patch as needed (5) Polyneuropathy: Code(s): G62.9 - Polyneuropathy, unspecified Status: Acute Assessment and Plan: Continue gabapentin and duloxetine - pt is on very large dose of ovidio- discussed - restless night due to pain - will add one time norco to see if that would help 10/09- norco helped a lot- pt was able to walk and move more and slept better - will add PRN (6) Peritoneal dialysis catheter in place: Code(s): Z99.2 - Dependence on renal dialysis Status: Acute Assessment and Plan: Local care - nephrology following (7) Electrolyte abnormality: Code(s): E87.8 - Other disorders of electrolyte and fluid balance, not elsewhere classified Status: Acute Assessment and Plan: 10/06- wbc improved 12.4 (14.2) K is 3- will order replacement, MG is ordered and replaced if low, hyponatremia- nephrology is following- appreciate recommendations 10/07- K drops even more- 40 meq with breakfast, 40 with lunch- close monitoring, fluid restriction for hyponatremia per Dr Dennis 10/08- k replaced and monitor- may need to be on daily dose hyponatremia- fluid restrictions in place, nephrolohy is following (8) Sepsis: Code(s): A41.9 - Sepsis, unspecified organism Status: Acute Assessment and Plan: - recent hospitalization for sepsis with unclear etiology - -hypotension (though some confusion from pt on his BP meds-which could of lead to hypotension), tachy and lactic acidosis on admission - was on antibiotics but 10/07 stopped - monitor cbc, vitals. (9) Diarrhea: Code(s): R19.7 - Diarrhea, unspecified Status: Acute Assessment and Plan: chronic diarrhea- had been on and off - could be a contributing factor for his weakness - will add GI consult Time Spent With Patient Time with patient: Greater than 35 minutes Subjective Date/time seen: 10/10/23 07:51 Interval history: Narrative retrieved from H/P: This is a 53-year-old male with past medical history significant for hypertension, end-stage disease on peritoneal dialysis, peripheral neuropathy. Patient recently discharged from [facility] treated for likely infection however source was not identified. Comes back today with complaints of generalized weakness, feeling overall unwell, denies fevers, rigors, chills, cough, sputum production, chest congestion, chest pain, lightheadedness. Patient uses peritoneal dialysis every night. Preliminary workup has been essentially nonrevealing. 10/05- pt is seen and examined. Holding bp meds for now. weakness- awaiting nephrology consult. denies chest pain, sob. 10/06- pt is seen this am. BP stable- holding BP meds. Nephrology saw him last night, Dr Dennis. he is c/o ears pressure- ear exam completed- unable to see ear drums rt ear due to ear wax- lt ear partially visualized- membrane is intact, non bulging. will need to f/u with pcp/ent when discharged. PT/OT ordered. Need to get out of bed- will get him wheelchair for stability 10/07- seen and examined today. In bed- uneventful night. K is low this am- nephrology notified and ordered received. pt is on fluid
[2023-10-10 08:35] VITALS: BP 158/103; PULSE 90; RESP 18; TEMP 36.8
--- NOTE | 2023-10-10 09:21 | PCOTNOTE ---
Attempted to see pt for Occupational Therapy treatment. Pt declined to get out of bed at this time due to increase pain/numbness from neuropathy. Pt expresses that pain/numbness is worse today compared to yesterday. Pt is educated on the importance of mobility for increase strengthening overall with pt verbally agreeing. Will continue per poc duration/frequency tomorrow.
[2023-10-10] MEDS: busPIRone HCL 10 MG TABLET PO ×3 (09:27→17:24)
[2023-10-10] MEDS: MULTIVITAMINS THERAPEUTIC TAB (*BKC) 1 TABLET PO (09:27)
[2023-10-10] MEDS: CINACALCET 30 MG TABLET 90 MG PO (09:27)
[2023-10-10] MEDS: POTASSIUM CHLORIDE 20 MEQ ER TABLET 40 MEQ PO (09:27)
[2023-10-10] MEDS: GABAPENTIN 300 MG CAPSULE PO ×3 (09:28→17:24)
[2023-10-10] MEDS: LORATADINE 10 MG TABLET PO (09:28)
[2023-10-10] MEDS: LIDOCAINE 5% PATCH 1 PATCH TRANSDERM (09:44)
[2023-10-10] MEDS: ACETAMINOPHEN 325 MG TABLET 650 MG PO (09:44)
--- NOTE | 2023-10-10 10:35 | P.PNNP_ITS ---
Progress Note: A&P Assessment and Plan (1) End stage renal disease: Code(s): N18.6 - End stage renal disease Status: Chronic Assessment and Plan: * continue nightly CCPD * tolerating treatments well * he still has a lot of swelling. * He is generally on reds and greens at home because he has so much swelling. * On 1.5 and 2.5 he had 1291 of total UF. * will increase dialysate to all 2.5% today. I do not want to get too far behind on fluids. * (2) Hypotension: Code(s): I95.9 - Hypotension, unspecified Status: Acute Assessment and Plan: * as noted on presentation * Resolved after hydration. * His cortisol level is marginally low. Will check a Cortrosyn stim test. (3) Sepsis: Qualifiers: Sepsis acute organ dysfunction status: unspecified Sepsis type: sepsis due to unspecified organism Qualified Code(s): A41.9 - Sepsis, unspecified organism Code(s): A41.9 - Sepsis, unspecified organism Status: Acute Assessment and Plan: * as suggested by admission with hypotension, tachycardia and lactic acidosis * source of infection not clear * Cultures are all negative * CXR negative * PD fluid clear and benign abdominal exam * he has had chronic diarrhea. * Consider GI consult (4) Hypokalemia: Code(s): E87.6 - Hypokalemia Status: Acute Assessment and Plan: * His potassium is up to 3.2. He is getting 40 mEq per day orally. Will continue this * part of this is that he is on a renal diet and so is getting less potassium than he gets at home. (5) Hyponatremia: Code(s): E87.1 - Hypo-osmolality and hyponatremia Status: Acute Assessment and Plan: * likely related to ESRD and increased free water intake * fluid restriction on board (6) HTN (hypertension): Code(s): I10 - Essential (primary) hypertension Status: Chronic Assessment and Plan: * despite known history, low BP on presentation * BP is starting to creep up. * His meds prior to admission include amlodipine 5, labetalol 200 twice a day, and lisinopril 20 once a day, * currently he is not on any of the above. Will restart the labetalol 1st and see how his blood pressure does (7) Generalized weakness: Code(s): R53.1 - Weakness Status: Acute Assessment and Plan: * related to low BP, acute illness, and possibly recent hospitalization * He also has severe neuropathy which leads to more of a sedentary state. * PT/OT * continue supportive therapy Subjective Date/time seen: 10/10/23 10:35 Interval history: Patient is better today. Neuropathy is not as bad today. No shortness of breath. He is on his fluid restriction. Exam Narrative: General: WD/WN male in NAD Heart: normal S1 and S2; no rub or gallop Lungs: clear bilaterally Abdomen: soft, nontender, nondistended, positive bowel sounds Extremities: no cyanosis or clubbing; 2+ bilateral edema but much better than as an outpatient Skin: no rash or subcu nodules Objective Data Vital Signs Vital Signs: Vital Signs - 24 hr 10/09/23 12:00 10/09/23 14:36 10/09/23 21:03 Temperature 97.9 F 97.6 F Pulse Rate 88 85 90 Respiratory Rate 18 18 Blood Pressure 121/72 141/91 H Pulse Oximetry 96 98 Oxygen Delivery Fra
--- NOTE | 2023-10-10 10:35 | PM.PNNEP ---
Progress Note: A&P Assessment and Plan (1) End stage renal disease: Code(s): N18.6 - End stage renal disease Status: Chronic Assessment and Plan: continue nightly CCPD tolerating treatments well he still has a lot of swelling. He is generally on reds and greens at home because he has so much swelling. On 1.5 and 2.5 he had 1291 of total UF. will increase dialysate to all 2.5% today. I do not want to get too far behind on fluids. (2) Hypotension: Code(s): I95.9 - Hypotension, unspecified Status: Acute Assessment and Plan: as noted on presentation Resolved after hydration. His cortisol level is marginally low. Will check a Cortrosyn stim test. (3) Sepsis: Qualifiers: Sepsis acute organ dysfunction status: unspecified Sepsis type: sepsis due to unspecified organism Qualified Code(s): A41.9 - Sepsis, unspecified organism Code(s): A41.9 - Sepsis, unspecified organism Status: Acute Assessment and Plan: as suggested by admission with hypotension, tachycardia and lactic acidosis source of infection not clear Cultures are all negative CXR negative PD fluid clear and benign abdominal exam he has had chronic diarrhea. Consider GI consult (4) Hypokalemia: Code(s): E87.6 - Hypokalemia Status: Acute Assessment and Plan: His potassium is up to 3.2. He is getting 40 mEq per day orally. Will continue this part of this is that he is on a renal diet and so is getting less potassium than he gets at home. (5) Hyponatremia: Code(s): E87.1 - Hypo-osmolality and hyponatremia Status: Acute Assessment and Plan: likely related to ESRD and increased free water intake fluid restriction on board (6) HTN (hypertension): Code(s): I10 - Essential (primary) hypertension Status: Chronic Assessment and Plan: despite known history, low BP on presentation BP is starting to creep up. His meds prior to admission include amlodipine 5, labetalol 200 twice a day, and lisinopril 20 once a day, currently he is not on any of the above. Will restart the labetalol 1st and see how his blood pressure does (7) Generalized weakness: Code(s): R53.1 - Weakness Status: Acute Assessment and Plan: related to low BP, acute illness, and possibly recent hospitalization He also has severe neuropathy which leads to more of a sedentary state. PT/OT continue supportive therapy Subjective Date/time seen: 10/10/23 10:35 Interval history: Patient is better today. Neuropathy is not as bad today. No shortness of breath. He is on his fluid restriction. Exam Narrative: General: WD/WN male in NAD Heart: normal S1 and S2; no rub or gallop Lungs: clear bilaterally Abdomen: soft, nontender, nondistended, positive bowel sounds Extremities: no cyanosis or clubbing; 2+ bilateral edema but much better than as an outpatient Skin: no rash or subcu nodules Objective Data Vital Signs Vital Signs: Vital Signs - 24 hr 10/09/23 12:00 10/09/23 14:36 10/09/23 21:03 Temperature 97.9 F 97.6 F Pulse Rate 88 85 90 Respiratory Rate 18 18 Blood Pressure 121/72 141/91 H Pulse Oximetry 96 98 Oxygen Delivery Fraction of Inspired Oxygen 10/09/23 20:00 10/10/23 05:25 10/10/23 08:35 Temperature 97.6 F 98.2 F Pulse Rate 90 90 90 Respiratory Rate 18 20 18 Blood Pressure 136/96 H 158/103 H Pulse Oximetry 98 93 Oxygen Delivery Room Air Fraction of Inspired Oxygen 94 Intake/Output Intake/Output: Intake & Output 10/07/23 10/08/23 10/09/23 10/10/23 23:59 23:59 23:59 23:59 Intake Total 0 1205 1280 730 Output Total 3 474 1269 2103 Balance -46 808 55 -2037 Meds/Results Medications: Active Medications Generic Name Dose Route Start Last Admin Trade Name Freq PRN Reason Stop Dose Admin Acetamino
[2023-10-10] MEDS: ONDANSETRON HCL ODT 4 MG TABLET PO ×2 (11:13→20:43)
[2023-10-10] MEDS: COSYNTROPIN 0.25 MG/ML VIAL IV PUSH (11:13)
[2023-10-10] MEDS: LABETALOL HCL 100 MG TABLET 200 MG PO ×2 (11:18→20:43)
--- NOTE | 2023-10-10 14:12 | WPDGICN ---
Assessment and Plan Assessment and plan (1) Diarrhea: Code(s): R19.7 - Diarrhea, unspecified Status: Acute Assessment and Plan: chronic and started since PD more than year ago recent colonoscopy no colitis he is using lomotil at home which helps some will add questran also get stool pancreatic elastase (2) End stage kidney disease: Code(s): N18.6 - End stage renal disease Status: Acute Assessment and Plan: on PD (3) Peritoneal dialysis catheter in place: Code(s): Z99.2 - Dependence on renal dialysis Status: Acute (4) Hypotension: Code(s): I95.9 - Hypotension, unspecified Status: Acute (5) Sepsis: Code(s): A41.9 - Sepsis, unspecified organism Status: Acute Assessment and Plan: w/u by primary GI Consult Note Consult date/time: 10/10/23 14:12 Reason for consult: chronic diarrhea HPI: Real Rolon is a 53 year old male with medical history significant for hypertension, end-stage disease on peritoneal dialysis for more than 1 year, peripheral neuropathy. Patient recently discharged from [facility] treated for likely infection however source was not identified. He is back today with complaints of generalized weakness, feeling overall unwell, denies fevers. He has chronic diarrhea for more than 1 year soon after started peritoneal dialysis. He had colonoscopy 03/2023 only polyps, no colitis. CT small pulmonary dialysis, PD in place, small ascites. Review of Systems Constitutional: Constitutional: Reports weakness Eyes: Eyes: Denies blurry vision ENT: Reports Normal hearing present Cardiovascular: Cardiovascular: Denies chest pain Respiratory: Respiratory: Denies cough Gastrointestinal: Gastrointestinal: Reports diarrhea Genitourinary: Comments: on dialysis Musculoskeletal: Musculoskeletal: Denies neck pain Integumentary/Breasts: Skin/Breast: Denies rash Neurologic: Denies Abnormal speech present Psychiatric: Psychiatric: Denies confusion [facility] Past Medical History Medical History End stage kidney disease HTN (hypertension) Polyneuropathy Vitamin D3 deficiency Social History Social History Smoking packs per day: 0.5 Smoking cigarettes per day: 10.0 Years smoked: 20 Smoking pack-years: 10.00 Smoking status: Former smoker Tobacco type: cigarettes Alcohol intake: never Alcohol use details: rarely Substance use: never Substance use type: marijuana Other substance usage details: OCCASIONAL Do You Feel Safe in your Home?: Yes Lack of Transportation: No Lack of Food: Never True Current Housing: I Have Housing Concerned About Future Housing: No Difficulty Paying Gas/Electric Bills: No Difficulty Paying for Meds: No Currently Unemployed: No Education: Master's Degree or Higher Difficulty w/ Childcare or Family Care: No Living arrangements: with family Spiritual care concerns: No Meds Home Medications and Allergies Home Medications Medication Instructions Recorded Confirmed Type calcium acetate 667 mg tablet 2,668 mg PO TIDWMEAL 08/31/22 10/06/23 History gentamicin 0.1 % topical cream 1 applic topical TID PRN DIALYSIS 08/31/22 10/06/23 History CATH. labetalol 200 mg tablet 200 mg PO BID 04/01/23 10/06/23 History calcium carbonate (Tums) 200 mg PO HS PRN Indigestion 07/20/23 10/06/23 History cinacalcet 30 mg tablet 90 mg PO DAILY 07/20/23 10/06/23 History melatonin 10 mg capsule 20 mg PO QHS 07/20/23 10/06/23 History ondansetron 4 mg disintegrating 4 mg PO Q8H PRN Nausea And Vomiting 07/20/23 10/06/23 History tablet albuterol sulfate 90 mcg/actuation 1 inh inhalation QID PRN shortness 07/29/23 10/06/23 Rx aerosol inhaler of breath or wheezing #8.5 grams gabapentin 300 mg capsule 300 mg PO TID #270 caps 07/29/23
[2023-10-10] MEDS: DIPHENOXYLATE/ATROPINE (*CRX) 2.5 MG TABLET 1 TABLET PO (14:14)
[2023-10-10 15:32] VITALS: BP 138/94; PULSE 78; RESP 16; TEMP 36.6; O2SAT 97
[2023-10-10] MEDS: GENTAMICIN SULFATE 0.1% CR 15 GM TUBE 1 APPLIC TOPICAL (17:56)
[2023-10-10 20:43] VITALS: PULSE 78
[2023-10-10] MEDS: NORTRIPTYLINE HCL 25 MG CAPSULE 50 MG PO (20:43)
[2023-10-10] MEDS: MELATONIN 5 MG TABLET 20 MG PO (20:43)
[2023-10-10 20:59] VITALS: BP 142/90; PULSE 83; RESP 18; TEMP 36.8; O2SAT 98
[2023-10-11 06:00] VITALS: BP 123/81; PULSE 89; RESP 20; TEMP 36.5; O2SAT 93
[2023-10-11 06:52] LABS: Basophils Absolute Auto 0.1 K/mm3 (0.0-0.1); Basophils Percent Auto 0.6 % (0.2-1.2); Eosinophils Absolute Auto 1.1 K/mm3 (0-0.3); Eosinophils Percent Auto 9.4 % (0-4.4); Hematocrit 31.3 % (42.0-52.0); Hemoglobin 10.6 g/dL (14.0-18.0); Immature Granulocyte Percent A 0.9 % (0-0.5); Lymphocytes Absolute Auto 1.72 K/mm3 (0.9-3.2); Lymphocytes Percent Auto 14.6 % (18.3-44.2); Mean Corpuscular HGB Conc 33.9 g/dl (32-36); Mean Corpuscular Hemoglobin 33.4 pg (26-34); Mean Corpuscular Volume 98.7 fl (80-100); Monocytes Absolute Auto 1.4 K/mm3 (0.1-0.6); Monocytes Percent Auto 12.2 % (2.6-8.5); Neutrophils Absolute Auto 7.3 K/mm3 (1.3-6.7); Neutrophils Percent Auto 62.3 % (45.5-73.1); Nucleated Red Blood Cells Perc 0.3 % (0.0-0.2); Platelet Count Result 356 k/mm3 (150-375); Red Blood Count 3.17 M/mm3 (4.6-6.20); Red Cell Distribution Width 13.6 % (11.5-14.5); White Blood Count 11.8 K/mm3 (4.5-10.0)
[2023-10-11 07:06] LABS: Albumin Level 3.5 g/dL (3.5-5.1); Anion Gap 18 mmol/L (4-12); Blood Urea Nitrogen 53 mg/dL (9-20); Calcium 7.6 mg/dL (8.4-10.2); Carbon Dioxide 18 mmol/L (22-30); Chloride 92 mmol/L (98-107); Glucose 93 mg/dL (65-110); Magnesium 1.6 mg/dL (1.6-2.3); Phosphorus 8.3 mg/dL (2.5-4.5); Potassium 3.6 mmol/L (3.4-5.0); Sodium 128 mmol/L (137-145)
[2023-10-11 07:22] LABS: Estimated CRCL calculation 7 ml/min; Estimated Glomerular Filt Rate 3
[2023-10-11 08:00] VITALS: BP 123/81; PULSE 89; RESP 20; TEMP 36.5
[2023-10-11 08:43] VITALS: O2SAT 95
[2023-10-11] MEDS: LORATADINE 10 MG TABLET PO (09:03)
[2023-10-11] MEDS: GABAPENTIN 300 MG CAPSULE PO ×3 (09:03→17:03)
[2023-10-11] MEDS: MULTIVITAMINS THERAPEUTIC TAB (*BKC) 1 TABLET PO (09:03)
[2023-10-11] MEDS: busPIRone HCL 10 MG TABLET PO ×3 (09:03→17:03)
[2023-10-11] MEDS: POTASSIUM CHLORIDE 20 MEQ ER TABLET 40 MEQ PO (09:03)
[2023-10-11] MEDS: LIDOCAINE 5% PATCH 1 PATCH TRANSDERM (09:04)
[2023-10-11] MEDS: CINACALCET 30 MG TABLET 90 MG PO (09:04)
[2023-10-11] MEDS: EPOETIN ALFA-EPBX 10,000 UNITS/ML VIAL 10000 UNITS SUB-Q (09:04)
[2023-10-11] MEDS: LABETALOL HCL 100 MG TABLET 200 MG PO ×2 (09:04→20:28)
[2023-10-11] MEDS: HYDROcodone/acetaminophen (*CRX) 5-325 MG TABLET 1 TAB PO ×2 (09:08→18:14)
[2023-10-11] MEDS: CHOLESTYRAMINE LIGHT 4 GM POWD.PACK PO (09:08)
--- NOTE | 2023-10-11 09:08 | PM.IMPN ---
Progress Note: A&P Assessment and Plan (1) End stage kidney disease: Code(s): N18.6 - End stage renal disease Status: Acute Assessment and Plan: On peritoneal dialysis nightly Continue peritoneal dialysis - consult to nephrology follow electrolytes, volume status - improved today- 10/09 (2) HTN (hypertension): Code(s): I10 - Essential (primary) hypertension Status: Chronic Assessment and Plan: holding amlodipine and labetolol -reviewed and stable- monitor - tsh ordered- WNL (3) Peripheral vascular disease: Code(s): I73.9 - Peripheral vascular disease, unspecified Status: Acute Assessment and Plan: Unchanged (4) Tobacco abuse: Code(s): Z72.0 - Tobacco use Status: Acute Assessment and Plan: Nicotine patch as needed (5) Polyneuropathy: Code(s): G62.9 - Polyneuropathy, unspecified Status: Acute Assessment and Plan: Continue gabapentin and duloxetine - pt is on very large dose of ovidio- discussed - restless night due to pain - will add one time norco to see if that would help 10/09- norco helped a lot- pt was able to walk and move more and slept better - will add PRN - work on pain control- need to re establish with podiatry (6) Peritoneal dialysis catheter in place: Code(s): Z99.2 - Dependence on renal dialysis Status: Acute Assessment and Plan: Local care - nephrology following (7) Electrolyte abnormality: Code(s): E87.8 - Other disorders of electrolyte and fluid balance, not elsewhere classified Status: Acute Assessment and Plan: 10/06- wbc improved 12.4 (14.2) K is 3- will order replacement, MG is ordered and replaced if low, hyponatremia- nephrology is following- appreciate recommendations 10/07- K drops even more- 40 meq with breakfast, 40 with lunch- close monitoring, fluid restriction for hyponatremia per Dr Dennis 10/08- k replaced and monitor- may need to be on daily dose hyponatremia- fluid restrictions in place, nephrolohy is following 10/10-slight improvement- monitor (8) Sepsis: Code(s): A41.9 - Sepsis, unspecified organism Status: Acute Assessment and Plan: - recent hospitalization for sepsis with unclear etiology - -hypotension (though some confusion from pt on his BP meds-which could of lead to hypotension), tachy and lactic acidosis on admission - was on antibiotics but 10/07 stopped - monitor cbc, vitals. (9) Diarrhea: Code(s): R19.7 - Diarrhea, unspecified Status: Acute Assessment and Plan: chronic diarrhea- had been on and off - could be a contributing factor for his weakness - will add GI consult Time Spent With Patient Time with patient: Greater than 35 minutes Subjective Date/time seen: 10/11/23 09:08 Interval history: Narrative retrieved from H/P: This is a 53-year-old male with past medical history significant for hypertension, end-stage disease on peritoneal dialysis, peripheral neuropathy. Patient recently discharged from [facility] treated for likely infection however source was not identified. Comes back today with complaints of generalized weakness, feeling overall unwell, denies fevers, rigors, chills, cough, sputum production, chest congestion, chest pain, lightheadedness. Patient uses peritoneal dialysis every night. Preliminary workup has been essentially nonrevealing. 10/05- pt is seen and examined. Holding bp meds for now. weakness- awaiting nephrology consult. denies chest pain, sob. 10/06- pt is seen this am. BP stable- holding BP meds. Nephrology saw him last night, Dr Dennis. he is c/o ears pressure- ear exam completed- unable to see ear drums rt ear due to ear wax- lt ear partially visualized- membrane is intact, non bulging. will need to f/u with pcp/ent when discharged. PT/OT ordered. Need to get out of bed- will get him wheelchair for stability 10/07- seen and examined today. In bed- un
--- NOTE | 2023-10-11 11:22 | P.PNNP_ITS ---
Progress Note: A&P Assessment and Plan (1) End stage renal disease: Code(s): N18.6 - End stage renal disease Status: Chronic Assessment and Plan: * continue nightly CCPD * tolerating treatments well * follow electrolytes, volume status, and clearance (2) Hypotension: Code(s): I95.9 - Hypotension, unspecified Status: Acute Assessment and Plan: * as noted on presentation * resolved after hydration. * cosyntropin stim test results okay * follow trend of hemodynamics (3) Sepsis: Qualifiers: Sepsis acute organ dysfunction status: unspecified Sepsis type: sepsis due to unspecified organism Qualified Code(s): A41.9 - Sepsis, unspecified organism Code(s): A41.9 - Sepsis, unspecified organism Status: Acute Assessment and Plan: * as suggested by admission with hypotension, tachycardia and lactic acidosis * source of infection not clear * evaluation noted: * cultures are all negative * CXR negative * PD fluid clear and benign abdominal exam * does have chronic diarrhea * continue supportive therapy (4) Hypokalemia: Code(s): E87.6 - Hypokalemia Status: Acute Assessment and Plan: * stabilizing * on supplemental K+ daily * follow trend (5) Hyponatremia: Code(s): E87.1 - Hypo-osmolality and hyponatremia Status: Acute Assessment and Plan: * likely related to ESRD and increased free water intake * on fluid restriction (6) HTN (hypertension): Code(s): I10 - Essential (primary) hypertension Status: Chronic Assessment and Plan: * despite known history, low BP on presentation * BP has been improving if not creeping up * resumed on labetalol * follow trend of hemodynamics (7) Generalized weakness: Code(s): R53.1 - Weakness Status: Acute Assessment and Plan: * related to low BP, acute illness, and possibly recent hospitalization * also has severe neuropathy which leads to more of a sedentary state * PT/OT * continue supportive therapy Will continue to follow. Subjective Date/time seen: 10/11/23 11:22 Interval history: Follow-up for end stage renal disease on peritoneal dialysis. Chart reviewed since last seen; tolerated peritoneal dialysis treatment yesterday evening without any issues or problems (CCPD treatment supervised -- seen at 11:10AM); blood pressure remains relatively stable as well; major complaint is the pain associated with his peripheral neuropathy at the time of my visit. Exam Narrative: General: WD/WN male in NAD Heart: normal S1 and S2; no rub Lungs: clear bilaterally Abdomen: soft, nontender, nondistended, positive bowel sounds Extremities: no cyanosis or clubbing; 2+ bilateral edema Skin: warm and dry Objective Data Vital Signs Vital Signs: Vital Signs Temp Pulse Resp BP Pulse Ox O2 Del Method O2 Flow Rate 10/11/23 10:55 96.8 F L 74 16 120/50 L 98 10/11/23 08:00 Room Air 10/11/23 08:00 97.7 F 89 20 123/81 0 10/11/23 08:43 95 Room Air 10/11/23 06:00 97.7 F 89 20 123/81 93 10/10/23 20:59 98.3 F 83 18 142/90 H 98 10/10/23 20:43 78 10/10/23 15:32 97.8 F 78 16 138/94 H 97 Intake/Output Intake/Output:
--- NOTE | 2023-10-11 11:22 | PM.PNNEP ---
Progress Note: A&P Assessment and Plan (1) End stage renal disease: Code(s): N18.6 - End stage renal disease Status: Chronic Assessment and Plan: continue nightly CCPD tolerating treatments well follow electrolytes, volume status, and clearance (2) Hypotension: Code(s): I95.9 - Hypotension, unspecified Status: Acute Assessment and Plan: as noted on presentation resolved after hydration. cosyntropin stim test results okay follow trend of hemodynamics (3) Sepsis: Qualifiers: Sepsis acute organ dysfunction status: unspecified Sepsis type: sepsis due to unspecified organism Qualified Code(s): A41.9 - Sepsis, unspecified organism Code(s): A41.9 - Sepsis, unspecified organism Status: Acute Assessment and Plan: as suggested by admission with hypotension, tachycardia and lactic acidosis source of infection not clear evaluation noted: cultures are all negative CXR negative PD fluid clear and benign abdominal exam does have chronic diarrhea continue supportive therapy (4) Hypokalemia: Code(s): E87.6 - Hypokalemia Status: Acute Assessment and Plan: stabilizing on supplemental K+ daily follow trend (5) Hyponatremia: Code(s): E87.1 - Hypo-osmolality and hyponatremia Status: Acute Assessment and Plan: likely related to ESRD and increased free water intake on fluid restriction (6) HTN (hypertension): Code(s): I10 - Essential (primary) hypertension Status: Chronic Assessment and Plan: despite known history, low BP on presentation BP has been improving if not creeping up resumed on labetalol follow trend of hemodynamics (7) Generalized weakness: Code(s): R53.1 - Weakness Status: Acute Assessment and Plan: related to low BP, acute illness, and possibly recent hospitalization also has severe neuropathy which leads to more of a sedentary state PT/OT continue supportive therapy Will continue to follow. Subjective Date/time seen: 10/11/23 11:22 Interval history: Follow-up for end stage renal disease on peritoneal dialysis. Chart reviewed since last seen; tolerated peritoneal dialysis treatment yesterday evening without any issues or problems (CCPD treatment supervised -- seen at 11:10AM); blood pressure remains relatively stable as well; major complaint is the pain associated with his peripheral neuropathy at the time of my visit. Exam Narrative: General: WD/WN male in NAD Heart: normal S1 and S2; no rub Lungs: clear bilaterally Abdomen: soft, nontender, nondistended, positive bowel sounds Extremities: no cyanosis or clubbing; 2+ bilateral edema Skin: warm and dry Objective Data Vital Signs Vital Signs: Vital Signs Temp Pulse Resp BP Pulse Ox O2 Del Method O2 Flow Rate 10/11/23 10:55 96.8 F L 74 16 120/50 L 98 10/11/23 08:00 Room Air 10/11/23 08:00 97.7 F 89 20 123/81 0 10/11/23 08:43 95 Room Air 10/11/23 06:00 97.7 F 89 20 123/81 93 10/10/23 20:59 98.3 F 83 18 142/90 H 98 10/10/23 20:43 78 10/10/23 15:32 97.8 F 78 16 138/94 H 97 Intake/Output Intake/Output: Intake & Output 10/08/23 10/09/23 10/10/23 10/11/23 23:59 23:59 23:59 23:59 Intake Total 1205 1280 1610 905 Output Total 448 1269 2103 1729 Balance 7 68 -152 -296 Meds/Results Medications: Active Medications Generic Name Dose Route Start Last Admin Trade Name Freq PRN Reason Stop Dose Admin Acetaminophen 650 mg 10/06/23 13:47 10/10/23 09:44 Acetaminophen 325 Mg Tablet PO 650 mg Q4H PRN Administration Mild Pain (1-3) or Fever Hydrocodone Bitart/Acetaminophen 1 tab 10/09/23 18:25 10/11/23 09:08 Hydrocodone/Acetaminophen (*Crx) 5-325 Mg Tablet PO 1 tab Q6H PRN Administration Pain Rated 4-10 Albuterol 1 puff 10/06/23 09:13
[2023-10-11] MEDS: HYDROmorphone HCL INJ (*CRX) 1 MG/ML SYR 0.5 MG IV PUSH (13:30)
[2023-10-11 13:55] VITALS: BP 120/50; PULSE 74; RESP 16; TEMP 36; O2SAT 98
--- NOTE | 2023-10-11 16:07 | WPDGIPROGNO ---
Progress Note: A&P Assessment and Plan (1) Diarrhea: Code(s): R19.7 - Diarrhea, unspecified Status: Acute Assessment and Plan: chronic, no major changes added questran he can follow-up in office (2) End stage kidney disease: Code(s): N18.6 - End stage renal disease Status: Acute Assessment and Plan: by nephrology (3) Polyneuropathy: Code(s): G62.9 - Polyneuropathy, unspecified Status: Acute Assessment and Plan: main problem, by primary (4) Peritoneal dialysis catheter in place: Code(s): Z99.2 - Dependence on renal dialysis Status: Acute (5) Generalized weakness: Code(s): R53.1 - Weakness Status: Acute Subjective Date/time seen: 10/11/23 16:07 Interval history: he had 3 BM today, just started using questran his main complain if neuropathy/leg pain Review of Systems Review of Systems: All systems reviewed & are unremarkable except as noted in HPI and below Exam Const: General: comfortable and no acute distress HENMT: Face/Nose/Sinus: Normal nares present Eyes: General: appearance normal, both eyes and all related structures Neck: Neck: supple Resp: Auscultation: clear to auscultation bilaterally Cardio: Rate: regular rate Rhythm: regular rhythm GI: Inspection: non-distended GI Palp: Yes Soft to palpation and No Tenderness to palpation present (GI) Auscultation: normal bowel sounds Other: PD catheter in place Skin: General skin exam: normal color Neuro: Speech: normal speech Extrem: General: pedal edema Psych: Mental Status: mental status grossly normal Objective Data Vital Signs Vital Signs: Vital Signs - 24 hr 10/10/23 20:43 10/10/23 20:59 10/11/23 06:00 Temperature 98.3 F 97.7 F Pulse Rate 78 83 89 Respiratory Rate 18 20 Blood Pressure 142/90 H 123/81 Pulse Oximetry 98 93 Oxygen Delivery Oxygen Flow Rate Fraction of Inspired Oxygen 10/11/23 08:43 10/11/23 08:00 10/11/23 08:00 Temperature 97.7 F Pulse Rate 89 Respiratory Rate 20 Blood Pressure 123/81 Pulse Oximetry 95 Oxygen Delivery Room Air Room Air Oxygen Flow Rate 0 Fraction of Inspired Oxygen 21 0 10/11/23 13:55 Temperature 96.8 F L Pulse Rate 74 Respiratory Rate 16 Blood Pressure 120/50 L Pulse Oximetry 98 Oxygen Delivery Oxygen Flow Rate Fraction of Inspired Oxygen Intake/Output Intake/Output: Intake & Output 10/08/23 10/09/23 10/10/23 10/11/23 23:59 23:59 23:59 23:59 Intake Total 1205 1280 1610 905 Output Total 448 1269 2103 1729 Balance 7 43 -169 -940 Meds/Results Medications: Active Medications Generic Name Dose Route Start Last Admin Trade Name Freq PRN Reason Stop Dose Admin Acetaminophen 650 mg 10/06/23 13:47 10/10/23 09:44 Acetaminophen 325 Mg Tablet PO 650 mg Q4H PRN Administration Mild Pain (1-3) or Fever Hydrocodone Bitart/Acetaminophen 1 tab 10/09/23 18:25 10/11/23 09:08 Hydrocodone/Acetaminophen (*Crx) 5-325 Mg Tablet PO 1 tab Q6H PRN Administration Pain Rated 4-10 Albuterol 1 puff 10/06/23 09:13 Albuterol Sulfate (*Sp) Aerosol 1 Puff INHALATION QIDRT PRN shortness of breath or wheezing Buspirone HCl 10 mg 10/06/23 09:20 10/11/23 12:23 Buspirone Hcl 10 Mg Tablet PO 10 mg TID [facility] Administration Cholestyramine Resin 4 gm 10/11/23 10:00 10/11/23 09:08 Cholestyramine Light 4 Gm Powd.Pack PO 4 gm QAM@1000 [facility] Administration Cinacalcet 90 mg 10/06/23 09:20 10/11/23 09:04 Cinacalcet 30 Mg Tablet PO 90 mg DAILY [facility] Administration Diphenoxylate HCl/Atropine 1 tablet 10/06/23 15:46 10/10/23 14:14 Diphenoxylate/Atropine (*Crx) 2.5 Mg Tablet PO 1 tablet PRN PRN Administration Diarrhea Epoetin Luke-epbx 10,000 units 10/08/23 09:00 10/11/23 09:04 Epoetin Luke-Epbx 10,000 Units/Ml Vial SUB-Q 10,000 units MOWEFR@09 [facility] Administration Gabapentin
[2023-10-11 20:20] VITALS: BP 148/99; PULSE 79; RESP 20; TEMP 36.1; O2SAT 100
[2023-10-11 20:28] VITALS: PULSE 83
[2023-10-11] MEDS: MELATONIN 5 MG TABLET 20 MG PO (20:29)
[2023-10-11] MEDS: NORTRIPTYLINE HCL 25 MG CAPSULE 50 MG PO (20:29)
[2023-10-11] MEDS: ONDANSETRON HCL ODT 4 MG TABLET PO (20:29)
[2023-10-12] MEDS: HYDROcodone/acetaminophen (*CRX) 5-325 MG TABLET 1 TAB PO ×2 (03:09→09:40)
[2023-10-12 06:00] VITALS: BP 120/84; PULSE 83; RESP 20; TEMP 36.8; O2SAT 100
[2023-10-12 07:58] VITALS: BP 120/84; PULSE 83; RESP 20; TEMP 36.8
--- NOTE | 2023-10-12 09:14 | PM.IMPN ---
Progress Note: A&P Assessment and Plan (1) End stage kidney disease: Code(s): N18.6 - End stage renal disease Status: Acute Assessment and Plan: On peritoneal dialysis nightly Continue peritoneal dialysis - consult to nephrology follow electrolytes, volume status - improved today- 10/09 (2) HTN (hypertension): Code(s): I10 - Essential (primary) hypertension Status: Chronic Assessment and Plan: holding amlodipine and labetolol -reviewed and stable- monitor - tsh ordered- WNL (3) Peripheral vascular disease: Code(s): I73.9 - Peripheral vascular disease, unspecified Status: Acute Assessment and Plan: Unchanged (4) Tobacco abuse: Code(s): Z72.0 - Tobacco use Status: Acute Assessment and Plan: Nicotine patch as needed (5) Polyneuropathy: Code(s): G62.9 - Polyneuropathy, unspecified Status: Acute Assessment and Plan: Continue gabapentin and duloxetine - pt is on very large dose of ovidio- discussed - restless night due to pain - will add one time norco to see if that would help 10/09- norco helped a lot- pt was able to walk and move more and slept better - will add PRN - work on pain control- need to re establish with podiatry (6) Peritoneal dialysis catheter in place: Code(s): Z99.2 - Dependence on renal dialysis Status: Acute Assessment and Plan: Local care - nephrology following (7) Electrolyte abnormality: Code(s): E87.8 - Other disorders of electrolyte and fluid balance, not elsewhere classified Status: Acute Assessment and Plan: 10/06- wbc improved 12.4 (14.2) K is 3- will order replacement, MG is ordered and replaced if low, hyponatremia- nephrology is following- appreciate recommendations 10/07- K drops even more- 40 meq with breakfast, 40 with lunch- close monitoring, fluid restriction for hyponatremia per Dr Dennis 10/08- k replaced and monitor- may need to be on daily dose hyponatremia- fluid restrictions in place, nephrolohy is following 10/10-slight improvement- monitor (8) Sepsis: Code(s): A41.9 - Sepsis, unspecified organism Status: Acute Assessment and Plan: - recent hospitalization for sepsis with unclear etiology - -hypotension (though some confusion from pt on his BP meds-which could of lead to hypotension), tachy and lactic acidosis on admission - was on antibiotics but 10/07 stopped - monitor cbc, vitals. (9) Diarrhea: Code(s): R19.7 - Diarrhea, unspecified Status: Acute Assessment and Plan: chronic diarrhea- had been on and off - could be a contributing factor for his weakness - will add GI consult Subjective Date/time seen: 10/12/23 09:14 Interval history: Interval history: Narrative retrieved from H/P: This is a 53-year-old male with past medical history significant for hypertension, end-stage disease on peritoneal dialysis, peripheral neuropathy. Patient recently discharged from [facility] treated for likely infection however source was not identified. Comes back today with complaints of generalized weakness, feeling overall unwell, denies fevers, rigors, chills, cough, sputum production, chest congestion, chest pain, lightheadedness. Patient uses peritoneal dialysis every night. Preliminary workup has been essentially nonrevealing. 10/05- pt is seen and examined. Holding bp meds for now. weakness- awaiting nephrology consult. denies chest pain, sob. 10/06- pt is seen this am. BP stable- holding BP meds. Nephrology saw him last night, Dr Dennis. he is c/o ears pressure- ear exam completed- unable to see ear drums rt ear due to ear wax- lt ear partially visualized- membrane is intact, non bulging. will need to f/u with pcp/ent when discharged. PT/OT ordered. Need to get out of bed- will get him wheelchair for stability 10/07- seen and examined today. In bed- uneventful night. K is low this am- nephrology noti
[2023-10-12] MEDS: LIDOCAINE 5% PATCH 1 PATCH TRANSDERM (09:35)
[2023-10-12] MEDS: POTASSIUM CHLORIDE 20 MEQ ER TABLET 40 MEQ PO (09:35)
[2023-10-12] MEDS: LABETALOL HCL 100 MG TABLET 200 MG PO (09:35)
[2023-10-12] MEDS: MULTIVITAMINS THERAPEUTIC TAB (*BKC) 1 TABLET PO (09:36)
[2023-10-12] MEDS: CINACALCET 30 MG TABLET 90 MG PO (09:36)
[2023-10-12] MEDS: LORATADINE 10 MG TABLET PO (09:36)
[2023-10-12] MEDS: busPIRone HCL 10 MG TABLET PO ×2 (09:36→13:11)
[2023-10-12] MEDS: GABAPENTIN 300 MG CAPSULE PO ×2 (09:37→13:11)
--- NOTE | 2023-10-12 10:25 | PM.PNNEP ---
Progress Note: A&P Assessment and Plan (1) End stage renal disease: Code(s): N18.6 - End stage renal disease Status: Chronic Assessment and Plan: continue nightly CCPD tolerating treatments well follow electrolytes, volume status, and clearance (2) Hypotension: Code(s): I95.9 - Hypotension, unspecified Status: Acute Assessment and Plan: as noted on presentation resolved after hydration cosyntropin stim test results okay follow trend of hemodynamics (3) Sepsis: Qualifiers: Sepsis acute organ dysfunction status: unspecified Sepsis type: sepsis due to unspecified organism Qualified Code(s): A41.9 - Sepsis, unspecified organism Code(s): A41.9 - Sepsis, unspecified organism Status: Acute Assessment and Plan: as suggested by admission with hypotension, tachycardia and lactic acidosis however, no source of infection present... evaluation noted: cultures are all negative CXR negative PD fluid clear and benign abdominal exam does have chronic diarrhea continue supportive therapy (4) Hypokalemia: Code(s): E87.6 - Hypokalemia Status: Acute Assessment and Plan: stabilizing on supplemental K+ daily follow trend (5) Hyponatremia: Code(s): E87.1 - Hypo-osmolality and hyponatremia Status: Acute Assessment and Plan: likely related to ESRD and increased free water intake on fluid restriction (6) HTN (hypertension): Code(s): I10 - Essential (primary) hypertension Status: Chronic Assessment and Plan: despite known history, low BP on presentation BP has been improving if not creeping up resumed on labetalol follow trend of hemodynamics (7) Generalized weakness: Code(s): R53.1 - Weakness Status: Acute Assessment and Plan: related to low BP, acute illness, and possibly recent hospitalization also has severe neuropathy which leads to more of a sedentary state PT/OT continue supportive therapy Not opposed to discharge from renal perspective if otherwise medically stable. Will continue to follow. Subjective Date/time seen: 10/12/23 10:25 Interval history: Follow-up for end stage renal disease on peritoneal dialysis. Tolerated CCPD treatment last night although the cycler gave lost of low fill volume alarms but was able to complete treatment; no apparent distress voiced at the time of my visit; neuropathic pain still somewhat of an issue; no other acute complaints voiced currently. Exam Narrative: General: WD/WN male in NAD Heart: normal S1 and S2; no rub Lungs: clear bilaterally Abdomen: soft, nontender, nondistended, positive bowel sounds Extremities: no cyanosis or clubbing; 2+ bilateral edema Skin: warm and intact Objective Data Vital Signs Vital Signs: Vital Signs Temp Pulse Resp BP Pulse Ox O2 Del Method O2 Flow Rate 10/12/23 07:58 98.3 F 83 20 120/84 10/12/23 09:16 Room Air 10/12/23 06:00 98.3 F 83 20 120/84 100 10/11/23 20:22 0 10/11/23 20:28 83 10/11/23 20:20 97.0 F L 79 20 148/99 H 100 10/11/23 13:55 96.8 F L 74 16 120/50 L 98 Intake/Output Intake/Output: Intake & Output 10/09/23 10/10/23 10/11/23 10/12/23 23:59 23:59 23:59 23:59 Intake Total 1280 1610 1685 240 Output Total 1269 2103 1729 1745 Balance 11 -264 -44 -1415 Meds/Results Medications: Active Medications Generic Name Dose Route Start Last Admin Trade Name Freq PRN Reason Stop Dose Admin Acetaminophen 650 mg 10/06/23 13:47 10/10/23 09:44 Acetaminophen 325 Mg Tablet PO 650 mg Q4H PRN Administration Mild Pain (1-3) or Fever Hydrocodone Bitart/Acetaminophen 1 tab 10/09/23 18:25 10/12/23 09:40 Hydrocodone/Acetaminophen (*Crx) 5-325 Mg Tablet PO 1 tab Q6H PRN Administration Pain Rated 4-10 Albuterol 1 puff 10/06/23 09:13
--- NOTE | 2023-10-12 10:25 | P.PNNP_ITS ---
Progress Note: A&P Assessment and Plan (1) End stage renal disease: Code(s): N18.6 - End stage renal disease Status: Chronic Assessment and Plan: * continue nightly CCPD * tolerating treatments well * follow electrolytes, volume status, and clearance (2) Hypotension: Code(s): I95.9 - Hypotension, unspecified Status: Acute Assessment and Plan: * as noted on presentation * resolved after hydration * cosyntropin stim test results okay * follow trend of hemodynamics (3) Sepsis: Qualifiers: Sepsis acute organ dysfunction status: unspecified Sepsis type: sepsis due to unspecified organism Qualified Code(s): A41.9 - Sepsis, unspecified organism Code(s): A41.9 - Sepsis, unspecified organism Status: Acute Assessment and Plan: * as suggested by admission with hypotension, tachycardia and lactic acidosis * however, no source of infection present... * evaluation noted: * cultures are all negative * CXR negative * PD fluid clear and benign abdominal exam * does have chronic diarrhea * continue supportive therapy (4) Hypokalemia: Code(s): E87.6 - Hypokalemia Status: Acute Assessment and Plan: * stabilizing * on supplemental K+ daily * follow trend (5) Hyponatremia: Code(s): E87.1 - Hypo-osmolality and hyponatremia Status: Acute Assessment and Plan: * likely related to ESRD and increased free water intake * on fluid restriction (6) HTN (hypertension): Code(s): I10 - Essential (primary) hypertension Status: Chronic Assessment and Plan: * despite known history, low BP on presentation * BP has been improving if not creeping up * resumed on labetalol * follow trend of hemodynamics (7) Generalized weakness: Code(s): R53.1 - Weakness Status: Acute Assessment and Plan: * related to low BP, acute illness, and possibly recent hospitalization * also has severe neuropathy which leads to more of a sedentary state * PT/OT * continue supportive therapy Not opposed to discharge from renal perspective if otherwise medically stable. Will continue to follow. Subjective Date/time seen: 10/12/23 10:25 Interval history: Follow-up for end stage renal disease on peritoneal dialysis. Tolerated CCPD treatment last night although the cycler gave lost of low fill volume alarms but was able to complete treatment; no apparent distress voiced at the time of my visit; neuropathic pain still somewhat of an issue; no other acute complaints voiced currently. Exam Narrative: General: WD/WN male in NAD Heart: normal S1 and S2; no rub Lungs: clear bilaterally Abdomen: soft, nontender, nondistended, positive bowel sounds Extremities: no cyanosis or clubbing; 2+ bilateral edema Skin: warm and intact Objective Data Vital Signs Vital Signs: Vital Signs Temp Pulse Resp BP Pulse Ox O2 Del Method O2 Flow Rate 10/12/23 07:58 98.3 F 83 20 120/84 10/12/23 09:16 Room Air 10/12/23 06:00 98.3 F 83 20 120/84 100 10/11/23 20:22 0 10/11/23 20:28 83 10/11/23 20:20 97.0 F L 79 20 148/99 H 100 10/11/23 13:55 96.8 F L 74 16 120/50 L 98 Intake/Output Intake/Output:
[2023-10-12] MEDS: CHOLESTYRAMINE LIGHT 4 GM POWD.PACK PO (11:14)
--- NOTE | 2023-10-12 12:54 | PM.DS ---
DS: Admitting Diagnosis Discharge Date 10/11 Admitting Diagnosis weakness DS: Discharge Diagnosis Discharge Diagnosis (1) End stage kidney disease: Code(s): N18.6 - End stage renal disease Status: Acute Assessment and Plan: On peritoneal dialysis nightly Continue peritoneal dialysis - consult to nephrology follow electrolytes, volume status - improved today- 10/09 (2) HTN (hypertension): Code(s): I10 - Essential (primary) hypertension Status: Chronic Assessment and Plan: holding amlodipine and labetolol -reviewed and stable- monitor - tsh ordered- WNL (3) Peripheral vascular disease: Code(s): I73.9 - Peripheral vascular disease, unspecified Status: Acute Assessment and Plan: Unchanged (4) Tobacco abuse: Code(s): Z72.0 - Tobacco use Status: Acute Assessment and Plan: Nicotine patch as needed (5) Polyneuropathy: Code(s): G62.9 - Polyneuropathy, unspecified Status: Acute Assessment and Plan: Continue gabapentin and duloxetine - pt is on very large dose of ovidio- discussed - restless night due to pain - will add one time norco to see if that would help 10/09- norco helped a lot- pt was able to walk and move more and slept better - will add PRN - work on pain control- need to re establish with podiatry (6) Peritoneal dialysis catheter in place: Code(s): Z99.2 - Dependence on renal dialysis Status: Acute Assessment and Plan: Local care - nephrology following (7) Electrolyte abnormality: Code(s): E87.8 - Other disorders of electrolyte and fluid balance, not elsewhere classified Status: Acute Assessment and Plan: 10/06- wbc improved 12.4 (14.2) K is 3- will order replacement, MG is ordered and replaced if low, hyponatremia- nephrology is following- appreciate recommendations 10/07- K drops even more- 40 meq with breakfast, 40 with lunch- close monitoring, fluid restriction for hyponatremia per Dr Dennis 10/08- k replaced and monitor- may need to be on daily dose hyponatremia- fluid restrictions in place, nephrolohy is following 10/10-slight improvement- monitor (8) Sepsis: Code(s): A41.9 - Sepsis, unspecified organism Status: Acute Assessment and Plan: - recent hospitalization for sepsis with unclear etiology - -hypotension (though some confusion from pt on his BP meds-which could of lead to hypotension), tachy and lactic acidosis on admission - was on antibiotics but 10/07 stopped - monitor cbc, vitals. (9) Diarrhea: Code(s): R19.7 - Diarrhea, unspecified Status: Acute Assessment and Plan: chronic diarrhea- had been on and off - could be a contributing factor for his weakness - will add GI consult DS: Summary Hospital Course Hospital Course: Interval history: Narrative retrieved from H/P: This is a 53-year-old male with past medical history significant for hypertension, end-stage disease on peritoneal dialysis, peripheral neuropathy. Patient recently discharged from [facility] treated for likely infection however source was not identified. Comes back today with complaints of generalized weakness, feeling overall unwell, denies fevers, rigors, chills, cough, sputum production, chest congestion, chest pain, lightheadedness. Patient uses peritoneal dialysis every night. Preliminary workup has been essentially nonrevealing. 10/05- pt is seen and examined. Holding bp meds for now. weakness- awaiting nephrology consult. denies chest pain, sob. 10/06- pt is seen this am. BP stable- holding BP meds. Nephrology saw him last night, Dr Dennis. he is c/o ears pressure- ear exam completed- unable to see ear drums rt ear due to ear wax- lt ear partially visualized- membrane is intact, non bulging. will need to f/u with pcp/ent when discharged. PT/OT ordered. Need to get out of bed- will get him wheelchair for stability 10/07- seen and examined to
[2023-10-12] MEDS: TIZANIDINE HCL 2 MG TABLET PO (13:11)
== END 2023-10-12 14:05 | disposition home or self-care (01) | DRG 871 ==
LOC: ANHED 22:50 → ANH3MEDSUR 10-06 05:10
PROVIDERS: Internal Medicine Nephrology; Admitting Provider Internal Medicine; Emergency Provider Student in an Organized Health Care Education/Training Program; PCP Nurse Practitioner Family; Visit Provider Nurse Practitioner
DX: A41.9 Sepsis, unspecified organism (principal); N18.6 End stage renal disease; I12.0 Hypertensive chronic kidney disease with stage 5 chronic kidney disease or end stage renal disease; E87.1 Hypo-osmolality and hyponatremia; E87.6 Hypokalemia; Z20.822 Contact with and (suspected) exposure to COVID-19; I73.9 Peripheral vascular disease, unspecified; R19.7 Diarrhea, unspecified; G62.9 Polyneuropathy, unspecified; E78.5 Hyperlipidemia, unspecified; Z87.891 Personal history of nicotine dependence; Z99.2 Dependence on renal dialysis; E66.9 Obesity, unspecified; Z68.34 Body mass index [BMI] 34.0-34.9, adult
CPT/HCPCS: 36415; 71046; 74177; 80053; 80069; 80202; 82533; 83605; 83735; 83930; 84132; 84443; 84484; 85025; 85610; 85730; 86140; 87040; 87637; 90945; 93005; 93306; 96365; 96366; 96367; 96372; 96375; 97110; 97116; 97161; 97165; 97530; 97535; 99285; A9270; G0378; J0692; J0834; J1170; J3370; J3475; J7120; Q5105; Q9967

== ENCOUNTER 2024-02-22 12:43 | Outpatient (CLI) | payer MEDICARE, MEDICAID, SELFPAY ==
--- NOTE | ~2024-02-22 | XR_ITS ---
EXAMINATION: XR chest 2V Exam Date/Time: 02/22/2024 13:05 QUARRY SUPERVISOR HISTORY: R06.02 - Shortness of breath Comparison: 10/05/2023. RESULT: Lines, tubes, and devices: None. Lungs and pleura: Lordotic positioning. Low volumes with crowding. Mild diffuse reticular opacities with cuffing. Cardiomediastinal silhouette: Stable. Other: No acute osseous or upper abdominal finding. IMPRESSION: Pulmonary opacities may represent mild interstitial edema versus respiratory bronchiolitis. Reviewed, dictated and finalized at location K. RY SUPERVISOR IMPRESSION: Pulmonary opacities may represent mild interstitial edema versus respiratory br onchiolitis.
[2024-02-22 13:56] LABS: Basophils Absolute Auto 0.1 K/mm3 (0.0-0.1); Basophils Percent Auto 0.6 % (0.2-1.2); Eosinophils Absolute Auto 1.7 K/mm3 (0-0.3); Eosinophils Percent Auto 12.4 % (0-4.4); Hematocrit 31.4 % (42.0-52.0); Hemoglobin 10.6 g/dL (14.0-18.0); Immature Granulocyte Absolute 0.06 K/mm3 (0.00-0.031); Immature Granulocyte Percent A 0.4 % (0-0.5); Lymphocytes Absolute Auto 1.79 K/mm3 (0.9-3.2); Lymphocytes Percent Auto 13.3 % (18.3-44.2); Mean Corpuscular HGB Conc 33.8 g/dl (32-36); Mean Corpuscular Hemoglobin 32.5 pg (26-34); Mean Corpuscular Volume 96.3 fl (80-100); Monocytes Absolute Auto 1.6 K/mm3 (0.1-0.6); Monocytes Percent Auto 11.5 % (2.6-8.5); Neutrophils Absolute Auto 8.3 K/mm3 (1.3-6.7); Neutrophils Percent Auto 61.8 % (45.5-73.1); Platelet Count Result 317 k/mm3 (150-375); Red Blood Count 3.26 M/mm3 (4.6-6.20); Red Cell Distribution Width 13.2 % (11.5-14.5); White Blood Count 13.5 K/mm3 (4.5-10.0)
[2024-02-22 14:10] LABS: Alanine Aminotransferase 20 U/L (6-50); Albumin Level 3.9 g/dL (3.5-5.1); Alkaline Phosphatase 117 U/L (38-126); Anion Gap 11 mmol/L (4-12); Aspartate Amino Transferase 22 U/L (17-59); Bilirubin,Total 0.6 mg/dL (0.2-1.3); Blood Urea Nitrogen 55 mg/dL (9-20); Calcium 8.1 mg/dL (8.4-10.2); Carbon Dioxide 27 mmol/L (22-30); Chloride 97 mmol/L (98-107); Estimated Glomerular Filt Rate 4; Glucose 91 mg/dL (65-110); Potassium 3.3 mmol/L (3.4-5.0); Sodium 135 mmol/L (137-145)
[2024-02-22 14:19] LABS: NT Pro B Type Natriuretic Pept 27300 pg/mL (19.9-100)
== END 2024-02-22 12:44 | disposition home or self-care (01) ==
PROVIDERS: PCP Nurse Practitioner Family; Visit Provider Nurse Practitioner Family
DX: R91.8 Other nonspecific abnormal finding of lung field (principal); R06.02 Shortness of breath; N18.6 End stage renal disease
CPT/HCPCS: 36415; 71046; 80053; 83880; 85025

== ENCOUNTER 2024-03-08 15:28 | Outpatient (CLI) | payer MEDICARE, MEDICAID, SELFPAY ==
--- NOTE | ~2024-03-08 | XR_ITS ---
XR chest 2V 03/08/2024 15:43 Indication: Wheezing and shortness of breath Procedure: 2 view chest Comparison: Comparison to multiple prior studies sequentially, with oldest reviewed study dated 11/02. Findings: Bilateral airspace disease is stable. Cardiomegaly. No significant pleural effusion or pneu mothorax. There is atherosclerosis. Impression: 1: Bilateral airspace disease predominantly of the mid and lower lungs which may reflect edema or pne umonia. Reviewed, dictated and finalized at location A. T PICKER Impression: 1: Bilateral airspace disease predominantly of the mid and lower lungs which ma y reflect edema or pneumonia.
== END 2024-03-08 15:29 | disposition home or self-care (01) ==
PROVIDERS: PCP Nurse Practitioner Family; Visit Provider Nurse Practitioner Family
DX: R06.2 Wheezing (principal); R91.8 Other nonspecific abnormal finding of lung field
CPT/HCPCS: 71046

== ENCOUNTER 2024-03-09 14:39 | Inpatient (IN) | payer MEDICARE, MEDICAID, SELFPAY ==
[2024-03-09] VITALS (11 sets, daily range): BP systolic 145–184; BP diastolic 88–95; PULSE 84–92; RESP 14–20; TEMP 36.4–36.8; O2SAT 88–100; BMI 38.8
--- NOTE | ~2024-03-09 | XR_ITS ---
EXAMINATION: XR chest 1V portable DATE: 03/11/2024 06:30 INDICATION: Shortness of breath. TECHNIQUE: A single frontal view of the chest was obtained. COMPARISON: Chest 2 views 03/09/2024, CT abdomen and pelvis 08/05/2023 FINDINGS: Sensitivity is decreased by obesity. There are airspace opacities in right lower lung zone. No pleural effusion or pneumothorax. The heart size is normal. IMPRESSION: 1. Airspace opacities in right lower lung zone, consistent with atelectasis versus pneumonia. Reviewed, dictated and finalized at location A. ERTY ECONOMIST IMPRESSION: 1. Airspace opacities in right lower lung zone, consistent with atelectasis nito hailey pneumonia.
--- NOTE | ~2024-03-09 | XR_ITS ---
Portable chest x-ray Comparison: 03/13/2024 Clinical History: Hypoxia Findings: Lungs are clear, without focal consolidation or pleural effusion. Cardiomediastinal silho uette is stable. Bones and soft tissues are unremarkable. Impression: Clear lungs. Reviewed, dictated and finalized at location . INE ASSEMBLER Impression: Clear lungs.
--- NOTE | ~2024-03-09 | XR_ITS ---
Portable chest x-ray Comparison: 03/12/2024 Clinical History: Volume overload Findings: Possible mild central venous congestive change. No other consolidation or pleural effusion . Cardiomediastinal silhouette is stable. Bones and soft tissues are unremarkable. Impression: Possible mild central pulmonary venous congestive change. Reviewed, dictated and finalized at [facility]. RA ENGINEER Impression: Possible mild central pulmonary venous congestive change.
--- NOTE | ~2024-03-09 | XR_ITS ---
CHEST RADIOGRAPH CLINICAL HISTORY: Pulmonary edema, pneumonia . COMPARISON: 03/11/2024 TECHNIQUE: Single portable view of the chest. FINDINGS The cardiomediastinal silhouette is unremarkable. Improved aeration of the bilateral lung [place] when compared with previous study. The lungs are clear. Visualized osseous structures and soft tissues are unremarkable. IMPRESSION: No focal infiltrate or effusion. Reviewed, dictated and finalized at location A. TIONAL TECHNICAL EDUCATION TEACHER
--- NOTE | ~2024-03-09 | XR_ITS ---
XR chest 2V 03/09/2024 17:39 Indication: Shortness of breath Procedure: 2 view chest Comparison: 09/27/2023 Findings: Cardiomegaly with pulmonary vascular congestion. No significant pleural effusion or pneumot horax. No acute osseous abnormality. Impression: 1: Cardiomegaly with pulmonary vascular congestion. Reviewed, dictated and finalized at location A. CTURES TECHNICIAN Impression: 1: Cardiomegaly with pulmonary vascular congestion.
--- NOTE | ~2024-03-09 | XR_ITS ---
EXAMINATION: XR abdomen/kub 1V DATE: 03/18/2024 10:20 INDICATION: Assess peritoneal dialysis catheter position TECHNIQUE: A supine view of the abdomen on 2 radiographs was obtained. COMPARISON: CT dated 10/05/2023 FINDINGS: The distal tip of the left lower quadrant peritoneal dialysis catheter remains coiled at the central pelvis. No dilated loops of gas-filled bowel to suggest obstruction. Mild discoid atelectasis at the lateral left lung base. Visualized right lower lung is clear. Heart size is normal. IMPRESSION: 1. Peritoneal dialysis catheter coiled central pelvis. Reviewed, dictated and finalized at location A. GENCY DISPATCH OPERATOR
--- NOTE | 2024-03-09 16:07 | ECG_ITS ---
Test Date: 2024-03-09 16:46:58 Measurements Intervals [place] Rate: 89 P: 31 MA: 168 QRS: 30 QRSD: 114 T: 61 QT: 383 QTc: 467 Interpretive Statements SINUS RHYTHM INCOMPLETE LEFT BUNDLE BRANCH BLOCK Compared to ECG 10/05/2023 22:33:31 NO SIGNIFICANT CHANGES Electronically Signed On 03-10-2024 14:25:38 COMMERCIAL SALES DIRECTOR by Carlo Calvert M.D.
[2024-03-09] MEDS: IPRATROPIUM 0.5 MG/ALBUTEROL SULFATE 2.5 MG AMPUL.NEB 3 ML INHALATION (16:34)
[2024-03-09 17:04] LABS: Basophils Absolute Auto 0.1 K/mm3 (0.0-0.1); Basophils Percent Auto 0.5 % (0.2-1.2); Eosinophils Absolute Auto 1.5 K/mm3 (0-0.3); Eosinophils Percent Auto 9.2 % (0-4.4); Hematocrit 26.5 % (42.0-52.0); Hemoglobin 8.9 g/dL (14.0-18.0); Immature Granulocyte Absolute 0.08 K/mm3 (0.00-0.031); Immature Granulocyte Percent A 0.5 % (0-0.5); Lymphocytes Absolute Auto 1.75 K/mm3 (0.9-3.2); Mean Corpuscular HGB Conc 33.6 g/dl (32-36); Mean Corpuscular Hemoglobin 33.2 pg (26-34); Mean Corpuscular Volume 98.9 fl (80-100); Mean Platelet Volume 8.8 fl (7.4-10.4); Monocytes Absolute Auto 1.6 K/mm3 (0.1-0.6); Monocytes Percent Auto 9.8 % (2.6-8.5); Neutrophils Absolute Auto 10.9 K/mm3 (1.3-6.7); Platelet Count Result 335 k/mm3 (150-375); Red Blood Count 2.68 M/mm3 (4.6-6.20); Red Cell Distribution Width 13.2 % (11.5-14.5); White Blood Count 15.9 K/mm3 (4.5-10.0)
[2024-03-09 17:15] LABS: Prothrombin Time 13.7 Seconds (11.1-14.7)
[2024-03-09 17:16] LABS: Partial Thromboplastin Time 32.1 Seconds (22.3-36.8)
[2024-03-09 17:17] LABS: Alanine Aminotransferase 20 U/L (6-50); Albumin Level 3.9 g/dL (3.5-5.1); Alkaline Phosphatase 120 U/L (38-126); Anion Gap 15 mmol/L (4-12); Aspartate Amino Transferase 23 U/L (17-59); Bilirubin,Total 0.7 mg/dL (0.2-1.3); Blood Urea Nitrogen 54 mg/dL (9-20); Calcium 7.8 mg/dL (8.4-10.2); Carbon Dioxide 26 mmol/L (22-30); Chloride 91 mmol/L (98-107); Estimated CRCL calculation 8 ml/min; Estimated Glomerular Filt Rate 4; Glucose 97 mg/dL (65-110); Potassium 3.5 mmol/L (3.4-5.0); Sodium 132 mmol/L (137-145)
[2024-03-09 17:24] LABS: NT Pro B Type Natriuretic Pept > 30000 pg/mL (19.9-100)
--- NOTE | 2024-03-09 17:58 | ED.GENADULT ---
HPI - General Adult General Chief complaint: Recheck/Abnormal Lab/Rx Stated complaint: fluid on lungs Time Seen by Provider: 03/09/24 16:03 History of Present Illness HPI narrative: Patient is a 54-year-old male who presents ER with concerns for volume overload. Patient has end-stage renal disease and gets peritoneal dialysis nightly. He has been compliant with medications. His chest x-rays have been showing cardiomegaly and he has been having wheezing. He had low oxygen levels as well and was post come in yesterday but opted to come in today. Has not having red bags recently because of the her cane and supply delays. He has had conversations with his chief media officer that he may eventually need hemodialysis. Related Data Home Medications ?Medication ?Instructions ?Recorded ?Confirmed ?Last Taken ?Type calcium acetate 667 mg tablet 2,668 mg PO TIDWMEAL 08/31/22 03/08/24 09/27/23 History gentamicin 0.1 % topical cream 1 applic topical TID PRN DIALYSIS 08/31/22 03/08/24 09/27/23 History CATH. calcium carbonate (Tums) 200 mg PO HS PRN Indigestion 07/20/23 03/08/24 09/27/23 History cinacalcet 30 mg tablet 90 mg PO DAILY 07/20/23 03/08/24 09/27/23 History melatonin 10 mg capsule 20 mg PO QHS 07/20/23 03/08/24 10/04/23 History multivitamin 1 tablet PO DAILY 07/29/23 03/08/24 10/05/23 History ferric citrate 210 mg iron tablet 210 mg PO TIDWM 09/28/23 03/08/24 Unknown History (Auryxia) amlodipine 10 mg tablet mg PO 02/03/24 03/08/24 Unknown History labetalol 200 mg tablet 100 mg PO BID 02/03/24 03/08/24 Unknown History Allergies Allergy/AdvReac Type Severity Reaction Status Date / Time No Known Allergies Allergy Verified 03/08/24 14:26 Review of Systems Review of Systems: All systems reviewed & are unremarkable except as noted in HPI and below Constitutional: Constitutional: Reports no additional constitutional complaints Cardiovascular: Cardiovascular: Reports no additional cardiovascular complaints Respiratory: Respiratory: Reports no additional respiratory complaints Gastrointestinal: Gastrointestinal: Reports no additional gastrointestinal complaints Musculoskeletal: Musculoskeletal: Reports no additional musculoskeletal complaints [facility] Past Medical History Medical History (Updated 03/09/24 @ 18:49 by Kwasi Mcrae MD) Peritoneal dialysis catheter in place Polyneuropathy HTN (hypertension) Vitamin D3 deficiency Social History Social History Smoking packs per day: 0.5 Smoking cigarettes per day: 10.0 Years smoked: 20 Smoking pack-years: 10.00 Smoking status: Former smoker Tobacco type: cigarettes Alcohol intake: never Alcohol use details: rarely Substance use: never Substance use type: marijuana Other substance usage details: OCCASIONAL Do You Feel Safe in your Home?: Yes Lack of Transportation: No Lack of Food: Never True Current Housing: I Have Housing Concerned About Future Housing: No Difficulty Paying Gas/Electric Bills: No Difficulty Paying for Meds: No Currently Unemployed: No Education: Master's Degree or Higher Difficulty w/ Childcare or Family Care: No Living arrangements: with family Occupation/Education: unemployed Gender identity (if verbalized by the patient): Male Sexual Orientation (if Verbalized by the Patient): Straight or Heterosexual Spiritual care concerns: No Agree to blood products: Yes Exam Narrative: GENERAL: Well-appearing, well-nourished, and in no acute distress. HEAD: Normocephalic, atraumatic. ENT: Mucous membranes moist. NECK: Supple. CHEST: Diffuse wheezing and faint crackles with mild tachypnea. HEART: Regular rate and rhythm. Normal peripheral pulses. ABDOMEN: Soft, nontender, nondistended. EXTREMITIES: Normal range of motion. 2+ edema. SKIN: Warm, dry, no rash. NEURO: Alert and oriented x3. PSYCH: Normal mood and affect. Course Course Emergency Course: Patient becoming hypoxic and placed on O2. Received neb. volume overload on x-ray. Nephrology consulted. Admit to hospitalist service. Vital Signs Vital signs: Vital Signs Temperature 98.3 F 03/09/24 14:47 Pulse Rate 92 03/09/24 14:47 Respiratory Rate 16 03/09/24 14:47 Blood Pressure 145/88 H 03/09/24 14:47 Pulse Oximetry 92 03/09/24 14:47 Oxygen Delivery Room Air 03/09/24 14:47 Temperature 98.3 F 03/09/24 14:47 Pulse Rate 88 03/09/24 16:50 Respiratory Rate 18 03/09/24 16:52 Blood Pressure 145/88 H 03/09/24 14:47 Pulse Oximetry 97 03/09/24 16:52 Oxygen Delivery Room Air 03/09/24 16:35 Oxygen Flow Rate 2 03/09/24 16:52 Medical Decision Making Vital Signs Vital Signs: Vital Signs Temperature 98.3 F 03/09/24 14:47 Pulse Rate 92 03/09/24 14:47 Respiratory Rate 16 03/09/24 14:47 Blood Pressure 145/88 H 03/09/24 14:47 Pulse Oximetry 92 03/09/24 14:47 Oxygen Delivery Room Air 03/09/24 14:47 Temperature 98.3 F 03/09/24 14:47 Pulse Rate 88 03/09/24 16:50 Respiratory Rate 18 03/09/24 16:52 Blood Pressure 145/88 H 03/09/24 14:47 Pulse Oximetry 97 03/09/24 16:52 Oxygen Delivery Room Air 03/09/24 16:35 Oxygen Flow Rate 2 03/09/24 16:52 Lab Data 03/09/24 16:58 03/09/24 16:58 Labs: Lab Results 03/09/24 Range/Units 16:58 WBC 15.9 H (4.5-10.0) K/mm3 RBC 2.68 L (4.6-6.20) M/mm3 Hgb 8.9 L (14.0-18.0) g/dL Hct 26.5 L (42.0-52.0) % MCV 98.9 (80-100) fl MCH 33.2 (26-34) pg MCHC 33.6 (32-36) g/dl RDW 13.2 (11.5-14.5) % Plt Count 335 (150-375) k/mm3 MPV 8.8 (7.4-10.4) fl Immature Gran % (Auto) 0.5 (0-0.5) % Neut % (Auto) 69.0 (45.5-73.1) % Lymph % (Auto) 11.0 L (18.3-44.2) % [place] % (Auto) 9.8 H (2.6-8.5) % Eos % (Auto) 9.2 H (0-4.4) % Baso % (Auto) 0.5 (0.2-1.2) % Lymph # (Auto) 1.75 (0.9-3.2) K/mm3 [place] # (Auto) 1.6 H (0.1-0.6) K/mm3 Eos # (Auto) 1.5 H (0-0.3) K/mm3 Baso # (Auto) 0.1 (0.0-0.1) K/mm3 Abs Immat Gran (auto) 0.08 H (0.00-0.031) K/mm3 Absolute Neuts (auto) 10.9 H (1.3-6.7) K/mm3 Absolute Nucleated RBC 0.000 (0.0-0.012) K/mm3 Nucleated RBC % 0.0 (0.0-0.2) % PT 13.7 (11.1-14.7) Seconds INR 1.0 APTT 32.1 (22.3-36.8) Seconds Sodium 132 L (137-145) mmol/L Potassium 3.5 (3.4-5.0) mmol/L Chloride 91 L (98-107) mmol/L Carbon Dioxide 26 (22-30) mmol/L Anion Gap 15 H (4-12) mmol/L BUN 54 H (9-20) mg/dL Creatinine 12.88 H (0.7-1.3) mg/dL Estim Creat Clear Calc 8 ml/min Estimated GFR 4 L (59 - ) Glucose 97 (65-110) mg/dL Calcium 7.8 L (8.4-10.2) mg/dL Total Bilirubin 0.7 (0.2-1.3) mg/dL AST 23 (17-59) U/L ALT 20 (6-50) U/L Alkaline Phosphatase 120 (38-126) U/L NT-Pro-B Natriuret Pep > 55446 H (19.9-100) pg/mL Total Protein 7.0 (6.3-8.2) g/dL Albumin 3.9 (3.5-5.1) g/dL Imaging Data Radiologist's impression: ITS Impressions Chest X-Ray 03/09/24 17:41 Impression: 1: Cardiomegaly with pulmonary vascular congestion. ECG Data EKG #1: ECG completion date: 03/09/24 ECG completion time: 16:46 EKG Interpretation: normal rate, sinus rhythm, non-specific ST changes, normal QRS, normal QT and NL axis Discharge Plan Discharge Clinical Impression: ESRD on dialysis, Pulmonary edema, Hypoxia Patient Disposition: Still a Patient Condition: Stable Patient Language: Swiss Prescriptions: No Action calcium acetate 667 mg tablet 2,668 mg PO TIDWMEAL gentamicin 0.1 % cream 1 applic topical TID PRN (Reason: DIALYSIS CATH.) melatonin 10 mg capsule 20 mg PO QHS calcium carbonate [Tums] 200 mg calcium (500 mg) tablet,chewable 200 mg PO HS PRN (Reason: Indigestion) (DME) BD Luer-Elizabeth Syringe 3 mL 21 gauge x 1 syringe See Rx Instructions .Route Qty: 12 0RF Rx Instructions: inject b12 once week As directed omeprazole 20 mg capsule,delayed release(DR/EC) 20 mg PO DAILY Qty: 90 1RF nortriptyline 50 mg capsule 50 mg PO QHS Qty: 30 6RF diphenoxylate-atropine 2.5-0.025 mg tablet 1 tablet PO QID PRN (Reason: diarrhea) Qty: 60 0RF multivitamin Tablet 1 tablet PO DAILY amlodipine 10 mg tablet PO albuterol sulfate 90 mcg/actuation HFA aerosol inhaler 2 inh inhalation QID PRN (Reason: shortness of breath or wheezing) Qty: 8.5 2RF ondansetron 4 mg tablet,disintegrating 8 mg PO Q8H PRN (Reason: Nausea And Vomiting) Qty: 30 4RF Auryxia 210 mg iron Tablet 210 mg PO TIDWM Rx Instructions: administer with a meal cinacalcet 30 mg tablet 90 mg PO DAILY labetalol 200 mg tablet 100 mg PO BID potassium chloride [K-Tab] 20 mEq Tablet Extended Release 40 meq PO DAILY Qty: 15 0RF gabapentin 300 mg capsule See Rx Instructions .ROUTE .COMPLEX Qty: 270 0RF Dose Instruction: TAKE 1 CAPSULE BY MOUTH THREE TIMES DAILY Rx Instructions: TAKE 1 CAPSULE BY MOUTH THREE TIMES DAILY hydrocodone-acetaminophen 5-325 mg tablet 1 tablet PO Q8H PRN (Reason: Pain Rated 4-10) Qty: 90 0RF buspirone 10 mg tablet See Rx Instructions .ROUTE .COMPLEX Qty: 90 0RF Dose Instruction: TAKE 1 TABLET BY MOUTH THREE TIMES DAILY Rx Instructions: TAKE 1 TABLET BY MOUTH THREE TIMES DAILY torsemide 100 mg tablet 100 mg PO QAM Qty: 30 6RF metolazone 5 mg tablet 5 mg PO DAILY Qty: 30 6RF Follow-up/Referrals: Angella Han APRN [Primary Care Provider] -
[2024-03-09] MEDS: GABAPENTIN 300 MG CAPSULE PO (18:10)
[2024-03-09] MEDS: HYDROcodone/acetaminophen (*CRX) 5-325 MG TABLET 1 TAB PO (18:10)
[2024-03-09 20:23] LABS: Hepatitis B Surface Antigen Negative (Negative)
[2024-03-09 20:41] LABS: Hepatitis B Surface Anti Res Negative
--- NOTE | 2024-03-09 21:06 | ADMGEN ---
This patient, Real Rolon, was admitted to Medical Room 256-01. Patient/family oriented to hospital policies and general routines including ID bracelet, bed and alarms, visiting hours, pain management, procedures, bathroom and other care routines, personal items, smoking policy, room service/diet, and visiting hours. Information on how to activate the Rapid Response Team has been discussed. Patient/Family are encouraged to report perceived risks to care and to ask questions if they do not understand what they are told or what they should do.
--- NOTE | 2024-03-09 22:10 | P.HP_ITS ---
H&P: HPI History of Present Illness Date/Time: 03/09/24 22:10 Chief Complaint: sob Narrative: This is a 54-year-old male with past medical history significant for end-stage renal disease on peritoneal dialysis, obesity, hypertension, peripheral neuropathy. Patient presented to the emergency room due to worsening edema, bilateral lower extremities, increased abdominal girth, a shortness of breath. Patient denies any fevers, rigors, chills, no chest pain. Patient has been admitted for further evaluation management and treatment. XR chest 2V 03/09/2024 17:39 Indication: Shortness of breath Procedure: 2 view chest Comparison: 09/27/2023 Findings: Cardiomegaly with pulmonary vascular congestion. No significant pleural effusion or pneumothorax. No acute osseous abnormality. Impression: 1: Cardiomegaly with pulmonary vascular congestion. Review of Systems Review of Systems: sob, cough, swelling, B/L LE pain. [facility] Past Medical History Medical History (Updated 03/09/24 @ 18:49 by Kwasi Mcrae MD) Peritoneal dialysis catheter in place Polyneuropathy HTN (hypertension) Vitamin D3 deficiency Family History Family History (Updated 03/09/24 @ 21:23 by Darby Patel RN) Father Hypertension Social History Social History Smoking packs per day: 1.5 Smoking cigarettes per day: 30.0 Years smoked: 20 Smoking pack-years: 30.00 Smoking status: Former smoker Tobacco type: cigarettes Alcohol intake: current Alcohol use details: rarely Substance use: current Substance use type: marijuana Other substance usage details: OCCASIONAL Do You Feel Safe in your Home?: Yes Lack of Transportation: YES Lack of Food: Sometimes True Current Housing: I Have Housing Concerned About Future Housing: No Difficulty Paying Gas/Electric Bills: YES Difficulty Paying for Meds: No Currently Unemployed: No Education: Bachelor's Degree Difficulty w/ Childcare or Family Care: No Living arrangements: with family Occupation/Education: unemployed Gender identity (if verbalized by the patient): Male Sexual Orientation (if Verbalized by the Patient): Straight or Heterosexual Spiritual care concerns: No Agree to blood products: Yes Meds Home Medications and Allergies Home Medications ?Medication ?Instructions ?Recorded ?Confirmed ?Type calcium acetate 667 mg tablet 2,668 mg PO TIDWMEAL 08/31/22 03/09/24 History gentamicin 0.1 % topical cream 1 applic topical TID PRN DIALYSIS 08/31/22 03/09/24 History CATH. calcium carbonate (Tums) 200 mg PO HS PRN Indigestion 07/20/23 03/09/24 History cinacalcet 30 mg tablet 90 mg PO DAILY 07/20/23 03/09/24 History melatonin 10 mg capsule 20 mg PO QHS 07/20/23 03/09/24 History multivitamin 1 tablet PO DAILY 07/29/23 03/09/24 History ferric citrate 210 mg iron tablet 210 mg PO TIDWM 09/28/23 03/09/24 History (Auryxia) potassium chloride 20 mEq 40 meq (2 x 20 mEq) PO DAILY #15 10/12/23 03/09/24 Rx tablet,extended release (K-Tab) tabs gabapentin 300 mg capsule See Rx Instructions .Route 10/26/23 03/09/24 Rx .COMPLEX #270 caps hydrocodone 5 mg-acetaminophen 325 1 tablet PO Q8H PRN Pain Rated 01/31/24 03/09/24 Rx mg tablet 4-10 #90 tabs albuterol sulfate 90 mcg/actuation 2 inh inhalation QID PRN shortness 02/03/24 03/09/24 Rx aerosol inhaler of breath or wheezing #8.5 grams amlodipine 10 mg tablet 10 mg PO DAILY 02/03/24 03/09/24 History labetalol 200 mg tablet 100 mg PO BID 02/03/24 03/09/24 History ondansetron 4 mg disintegrating 8 mg (2 x 4 mg) PO Q8H PRN Nausea 02/03/24 03/09/24 Rx tablet And Vomiting #30 tabs buspirone 10 mg tablet See Rx Instructions .Route 02/14/24 03/09/24 Rx .COMPLEX #90 tabs metolazone 5 mg tablet 5 mg PO DAILY #30 tabs 02/28/24 03/09/24 Rx torsemide 100 mg tablet 100 mg PO QAM #30 tabs 02/28/24 03/09/24 Rx diphenoxylate-atropine 2.5 1 tablet PO QID PRN diarrhea #60 03/08/24 03/09/24 Rx mg-0.025 mg tablet tabs nortriptyline 50 mg capsule 50 mg PO QHS #30 caps 03/08/24 03/09/24 Rx omeprazole 20 mg capsule,delayed 20 mg PO DAILY #90 caps 03/08/24 03/09/24 Rx release escitalopram oxalate 10 mg tablet 10 mg PO DAILY 03/09/24 03/09/24 History Allergies Allergy/AdvReac Type Severity Reaction Status Date / Time No Known Allergies Allergy Verified 03/08/24 14:26 Vital Signs Vital Signs - 24 hr 03/09/24 14:47 03/09/24 16:34 03/09/24 16:35 Temperature 98.3 F Pulse Rate 92 85 Respiratory Rate 16 20 Blood Pressure 145/88 H Pulse Oximetry 92 88 L Oxygen Delivery Room Air Room Air Oxygen Flow Rate 03/09/24 16:50 03/09/24 16:52 03/09/24 19:59 Temperature Pulse Rate 88 Respiratory Rate 20 18 Blood Pressure Pulse Oximetry 97 95 Oxygen Delivery Nasal Cannula Oxygen Flow Rate 2 3 03/09/24 20:05 03/09/24 20:50 03/09/24 21:14 Temperature 97.6 F Pulse Rate 87 87 Respiratory Rate 18 14 Blood Pressure 152/90 H 184/95 H Pulse Oximetry 100 99 Oxygen Delivery Oxygen Flow Rate 4 Exam Narrative: lying in bed Const: General: comfortable, no acute distress, well developed, alert, awake, ill appearing chronically and edematous Nutritional Appearance: edematous Orientation/consciousness: patient oriented x3 HENMT: Head: normal to inspection, normocephalic and atraumatic Ears: hearing grossly normal bilaterally Face/Nose/Sinus: normal facial exam Face and sinus: normal facial exam Eyes: General: appearance normal, both eyes and all related structures Pupils: Equal, round and reactive pupils present EOM: EOMs intact bilaterally Neck: Neck: full ROM, no lymphadenopathy and no JVD Thyroid: thyroid normal Lymphatic: no lymphadenopathy noted Resp: Effort & Inspection: normal respiratory effort, able to speak in complete sentences, audible wheezes, Actively coughing and tachypneic Auscultation: clear to auscultation bilaterally Cardio: Jugular venous distension: no JVD Rate: regular rate Rhythm: regular rhythm Heart sounds: S1 normal heart sound present and S2 normal heart sound present GI: Inspection: Pannus present and obesity GI Palp: Yes Soft to palpation and Yes No hepatosplenomegaly present : General: Yes deferred Skin: Rashes: no rashes Wounds: no wounds Other: peritoneal catheter in place Neuro: General: patient oriented x3 and CN's II-XI intact bilaterally Cranial nerves: Yes CN's II-XII intact bilaterally and Yes Equal, round and reactive pupils present Cognition (Neuro): normal cognition Speech: normal speech Gait exam (Neuro): Normal gait present Motor exam (neuro): 5/5 motor strength present throughout Extrem: General: edema bilateral (3+) H&P: Results Labs Labs: Short CBC 03/09/24 Range/Units 16:58 WBC 15.9 H (4.5-10.0) K/mm3 Hgb 8.9 L (14.0-18.0) g/dL Hct 26.5 L (42.0-52.0) % Plt Count 335 (150-375) k/mm3 BMP 03/09/24 16:58 Sodium 132 L Potassium 3.5 Chloride 91 L Carbon Dioxide 26 BUN 54 H Creatinine 12.88 H Glucose 97 Calcium 7.8 L Liver Function 03/09/24 Range/Units 16:58 Total Bilirubin 0.7 (0.2-1.3) mg/dL AST 23 (17-59) U/L ALT 20 (6-50) U/L Alkaline Phosphatase 120 (38-126) U/L Albumin 3.9 (3.5-5.1) g/dL Assessment and Plan Assessment and plan (1) Fluid overload: Qualifiers: Hypervolemia type: unspecified Qualified Code(s): E87.70 - Fluid overload, unspecified Code(s): E87.70 - Fluid overload, unspecified Status: Acute Assessment and Plan: Admit to med tele Nephrology consult Continue peritoneal dialysis Continue torsemide Continue metolazone Fluid restriction (2) End-stage renal disease on peritoneal dialysis: Code(s): N18.6 - End stage renal disease; Z99.2 - Dependence on renal dialysis Status: Acute Assessment and Plan: Continue peritoneal dialysis (3) HTN (hypertension): Code(s): I10 - Essential (primary) hypertension Status: Chronic Assessment and Plan: Resume home meds Continue to monitor (4) Peripheral vascular disease: Code(s): I73.9 - Peripheral vascular disease, unspecified Status: Acute Assessment and Plan: Unchanged (5) Diastolic dysfunction: Code(s): I51.89 - Other ill-defined heart diseases Status: Acute Assessment and Plan: Daily intake and output (6) Diabetes: Code(s): E11.9 - Type 2 diabetes mellitus without complications Status: Acute Assessment and Plan: Patient is on no meds (7) Neuropathy: Code(s): G62.9 - Polyneuropathy, unspecified Status: Acute Assessment and Plan: Continue nortriptyline (8) Hypoxia: Code(s): R09.02 - Hypoxemia Status: Acute Assessment and Plan: Supplemental oxygen by nasal cannula (9) Generalized weakness: Code(s): R53.1 - Weakness Status: Acute Assessment and Plan: Likely secondary to chronic illness Hospitalist MIPS Advance Care Plan I have confirmed that the patient's Advanced Care Plan is present, code status is documented, or surrogate decision maker is listed in patient medical record.: Yes Medication Reconciliation I have utilized all available resources to obtain, update and review the patients current medications (includes all prescriptions, OTC, herbals, cannabis, and nutritional supplements).: Yes
[2024-03-09] MEDS: amLODIPine BESYLATE 10 MG TABLET PO (22:24)
[2024-03-09] MEDS: LABETALOL HCL 100 MG TABLET PO (22:24)
[2024-03-10] VITALS (19 sets, daily range): BP systolic 141–154; BP diastolic 83–88; PULSE 80–108; RESP 16–24; TEMP 36.4–38.8; O2SAT 92–97
[2024-03-10] MEDS: GENTAMICIN SULFATE 0.1% CR 15 GM TUBE 1 APPLIC TOPICAL (05:15)
[2024-03-10] MEDS: ALBUTEROL SULFATE (*SP) AEROSOL 1 PUFF 2 PUFF INHALATION ×3 (06:29→15:26)
[2024-03-10] MEDS: CALCIUM ACETATE 667 MG TABLET 2668 MG PO ×3 (08:13→17:16)
[2024-03-10] MEDS: GABAPENTIN 300 MG CAPSULE BY MOUTH ×3 (08:13→17:16)
[2024-03-10] MEDS: amLODIPine BESYLATE 10 MG TABLET PO (08:14)
[2024-03-10] MEDS: PANTOPRAZOLE 40 MG TABLET PO (08:14)
[2024-03-10] MEDS: ESCITALOPRAM OXALATE 10 MG TABLET PO (08:14)
[2024-03-10] MEDS: CINACALCET 30 MG TABLET 90 MG PO (08:14)
[2024-03-10] MEDS: metOLazone 5 MG TABLET PO (08:14)
[2024-03-10] MEDS: busPIRone HCL 10 MG TABLET BY MOUTH ×3 (08:14→17:16)
[2024-03-10] MEDS: LABETALOL HCL 100 MG TABLET PO ×2 (08:15→20:34)
[2024-03-10] MEDS: TORSEMIDE 20 MG TABLET 100 MG PO (08:15)
[2024-03-10] MEDS: HYDROcodone/acetaminophen (*CRX) 5-325 MG TABLET 1 TAB PO ×2 (08:26→21:52)
--- NOTE | 2024-03-10 08:59 | PHAR ---
The patient's home med of Auryxia (Ferric citrate) tab has been verified. Dose entered as per label on bottle.
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
--- NOTE | 2024-03-10 09:10 | P.PNCROSS_ITS ---
Event Note Event Note Event Note: Patient is on peritoneal dialysis. He had a red and green in last night. UF w as about 3L Will do all reds tonight and potentially do a day treatment tomorrow. The patient was seen at 9:00 a.m.
[2024-03-10] MEDS: FERRIC CITRATE 210 MG PO ×3 (09:39→17:16)
[2024-03-10] MEDS: IRON PO ×3 (09:39→17:16)
[2024-03-10 10:03] LABS: Immature Reticulocyte Fraction 27.9 % (3.0-15.9); Reticulocyte Hemoglobin Conten 34.6 pg (28.2-36.6); Reticulocyte Percent 2.03 % (0.7-4.3); Reticulocytes Absolute 0.05 10^6/uL (0.02-0.10)
--- NOTE | 2024-03-10 10:04 | P.PNIM_ITS ---
Progress Note: A&P Assessment and Plan (1) Diastolic dysfunction: Code(s): I51.89 - Other ill-defined heart diseases Status: Acute (2) Fluid overload: Qualifiers: Hypervolemia type: unspecified Qualified Code(s): E87.70 - Fluid overload, unspecified Code(s): E87.70 - Fluid overload, unspecified Status: Acute (3) ESRD on dialysis: Code(s): N18.6 - End stage renal disease; Z99.2 - Dependence on renal dialysis Status: Acute (4) Anemia of chronic disease: Code(s): D63.8 - Anemia in other chronic diseases classified elsewhere Status: Acute (5) Hypoxemia: Code(s): R09.02 - Hypoxemia Status: Acute (6) Peripheral vascular disease: Code(s): I73.9 - Peripheral vascular disease, unspecified Status: Acute (7) Diabetes: Code(s): E11.9 - Type 2 diabetes mellitus without complications Status: Acute Plan This is a 54-year-old male with past medical history significant for end-stage renal disease on peritoneal dialysis, obesity, hypertension, peripheral neuropathy. Patient presented to the emergency room due to worsening edema, bilateral lower extremities, increased abdominal girth, a shortness of breath. Patient denies any fevers, rigors, chills, no chest pain. Patient has been admitted for further evaluation management and treatment. Acute on chronic diastolic heart failure Echocardiogram December 12 showed normal EF, diastolic dysfunction Patient present ED with a chief complaint of shortness breath, worsening lower extremity edema, abdominal girth BNP more than 3000 Consistent with exacerbation of diastolic heart failure, resulting fluid overload Admit to med tele Nephrology consult Continue peritoneal dialysis Continue torsemide Continue metolazone Fluid restriction Appreciates service support representative consultation End-stage renal disease on peritoneal dialysis: Code(s): N18.6 - End stage renal disease; Z99.2 - Dependence on renal dialysis Status: Acute Assessment and Plan: Patient is on peritoneal dialysis Management per service support representative Acute respiratory failure with hypoxemia Upon arrival in the ED, patient was found have hypoxemia pulse ox 88 on room air Chronic patient is on 3 L oxygen on nasal cannular resulting from diastolic heart failure and fluid overload Continue O2 therapy Uncontrolled HTN (hypertension): Code(s): I10 - Essential (primary) hypertension Status: Chronic Assessment and Plan: Resume home meds Continue to monitor resulting from fluid overload Chronic anemia Pending iron studies No obvious bleeding Possible due to CKD and iron deficiency Immature reticulocyte 27.9% Peripheral vascular disease: Code(s): I73.9 - Peripheral vascular disease, unspecified Status: Acute Assessment and Plan: Unchanged Diabetes: Code(s): E11.9 - Type 2 diabetes mellitus without complications Status: Acute Assessment and Plan: Patient is on no meds Glucose level within normal limit Follow-up A1c Neuropathy: Code(s): G62.9 - Polyneuropathy, unspecified Status: Acute Assessment and Plan: Continue nortriptyline Generalized weakness: Code(s): R53.1 - Weakness Status: Acute Assessment and Plan: Likely secondary to chronic illness Consult PT OT Subjective Date/time seen: 03/10/24 10:04 Interval history: Patient feels dyspnea is improving, still has a cough and shortness breath with exertion. No new issue even overnight Patient is afebrile over stable. Labs reviewed Exam Narrative: GENERAL: Pleasant, in no acute distress. Well-nourished. - EYES: EOMI. Anicteric. - HENT: Moist mucous membranes. - LUNGS: Crackles bilateral base, - CARDIOVASCULAR: Regular rate and rhyth m. No murmur. No JVD. - ABDOMEN: Soft, non-tender and non-dist ended. No palpable masses. - EXTREMITIES: No edema. Peripheral puls es 2+. Non-tender. - NEUROLOGIC: No focal neurological defi cits. CN II-XII grossly intact. - PSYCHIATRIC: Awake, Alert and oriented x 3. Appropriate mood and affect. - SKIN: No rashes or lesions. Warm. - LYMPH: No cervical lymphadenopathy. Objective Data Vital Signs Vital Signs: Vital Signs - 24 hr 03/09/24 14:47 03/09/24 16:34 03/09/24 16:35 Temperature 98.3 F Pulse Rate 92 85 Respiratory Rate 16 20 Blood Pressure 145/88 H Pulse Oximetry 92 88 L Oxygen Delivery Room Air Room Air Oxygen Flow Rate 03/09/24 16:50 03/09/24 16:52 03/09/24 19:59 Temperature Pulse Rate 88 Respiratory Rate 20 18 Blood Pressure Pulse Oximetry 97 95 Oxygen Delivery Nasal Cannula Oxygen Flow Rate 2 3 03/09/24 20:05 03/09/24 20:50 03/09/24 21:04 Temperature Pulse Rate 87 Respiratory Rate 18 Blood Pressure 152/90 H Pulse Oximetry 100 99 Oxygen Delivery Nasal Cannula Oxygen Flow Rate 4 4 03/09/24 21:14 03/09/24 22:24 03/09/24 22:38 Temperature 97.6 F Pulse Rate 87 84 92 Respiratory Rate 14 Blood Pressure 184/95 H Pulse Oximetry 99 Oxygen Delivery Oxygen Flow Rate 03/10/24 00:00 03/10/24 00:46 03/10/24 04:00 Temperature Pulse Rate 80 85 88 Respiratory Rate 18 Blood Pressure 145/85 H Pulse Oximetry 96 Oxygen Delivery Oxygen Flow Rate 03/10/24 06:07 03/10/24 08:15 03/10/24 09:47 Temperature 97.5 F L Pulse Rate 85 100 Respiratory Rate 18 Blood Pressure 149/86 H Pulse Oximetry 97 92 Oxygen Delivery Nasal Cannula Oxygen Flow Rate 3 Intake/Output Intake/Output: Intake & Output 03/07/24 03/08/24 03/09/24 03/10/24 23:59 23:59 23:59 23:59 Intake Total 490 Balance 490 Meds/Results Medications: Active Medications Generic Name Dose Route Start Last Admin Trade Name Freq PRN Reason Stop Dose Admin Acetaminophen 650 mg 03/09/24 18:43 Acetaminophen 325 Mg Tablet PO Q4H PRN Mild Pain (1-3) or Fever Hydrocodone Bitart/Acetaminophen 1 tab 03/09/24 18:43 03/10/24 08:26 Hydrocodone/Acetaminophen (*Crx) 5-325 Mg Tablet PO 1 tab Q4H PRN Administration Pain Rated 4-6 Albuterol 2 puff 03/09/24 23:10 03/10/24 06:29 Albuterol Sulfate (*Sp) Aerosol 1 Puff INHALATION 2 puff QIDRT PRN Administration shortness of breath or wheezin Amlodipine Besylate 10 mg 03/10/24 09:00 03/10/24 08:14 Amlodipine Besylate 10 Mg Tablet PO 10 mg DAILY CARIDAD Administration Buspirone HCl 10 mg 03/10/24 09:00 03/10/24 08:14 Buspirone Hcl 10 Mg Tablet BY MOUTH 10 mg TID CARIDAD Administration Calcium Acetate 2,668 mg 03/10/24 08:00 03/10/24 08:13 Calcium Acetate 667 Mg Tablet PO 2,668 mg TIDWM CARIDAD Administration Calcium Carbonate 200 mg 03/09/24 23:10 Calcium Carbonate (Tums) 500 Mg (200 Mg Elemental) PO HS PRN Indigestion Cinacalcet 90 mg 03/10/24 09:00 03/10/24 08:14 Cinacalcet 30 Mg Tablet PO 90 mg DAILY [facility] Administration Diphenoxylate HCl/Atropine 1 tablet 03/09/24 23:10 Diphenoxylate/Atropine (*Crx) 2.5 Mg Tablet PO QID PRN diarrhea Epoetin Luke-epbx 10,000 units 03/10/24 09:30 Epoetin Luke-Epbx 10,000 Units/Ml Vial SUB-Q MOWEFR@09 [facility] Escitalopram Oxalate 10 mg 03/10/24 09:00 03/10/24 08:14 Escitalopram Oxalate 10 Mg Tablet PO 10 mg DAILY [facility] Administration Gabapentin 300 mg 03/10/24 09:00 03/10/24 08:13 Gabapentin 300 Mg Capsule BY MOUTH 300 mg TID [facility] Administration Gentamicin Sulfate 1 applic 03/09/24 21:00 03/10/24 05:15 Gentamicin Sulfate 0.1% Cr 15 Gm Tube TOPICAL 1 applic QHS [facility] Administration Labetalol HCl 100 mg 03/10/24 09:00 03/10/24 08:15 Labetalol Hcl 100 Mg Tablet PO 100 mg Q12HR [facility] Administration Melatonin 20 mg 03/10/24 21:00 Melatonin 5 Mg Tablet PO QHS [facility] Metolazone 5 mg 03/10/24 09:00 03/10/24 08:14 Metolazone 5 Mg Tablet PO 5 mg DAILY [facility] Administration Morphine Sulfate 4 mg 03/09/24 18:43 Morphine Sulfate (*Crx) 4 Mg/Ml Inj IV PUSH Q2H PRN Pain Rated 7-10 *Home Med*Ferric 0 mg 03/10/24 08:00 03/10/24 09:39 Citrate [Auryxia] PO 04/09/24 07:59 840 mg 210 Mg Iron Tablet TIDWM [facility] Administration *Home Med*Ferric 0 mg 03/10/24 08:57 Citrate [Auryxia] PO 04/09/24 08:56 210 Mg Iron Tablet BID PRN WITH SNACKS Nortriptyline HCl 50 mg 03/10/24 21:00 Nortriptyline Hcl 25 Mg Capsule PO QHS [facility] Ondansetron HCl 4 mg 03/09/24 18:43 Ondansetron Inj 4 Mg/2 Ml Vial IV PUSH Q4H PRN Nausea Pantoprazole Sodium 40 mg 03/10/24 09:00 03/10/24 08:14 Pantoprazole 40 Mg Tablet PO 40 mg QAM CARIDAD Administration Torsemide 100 mg 03/10/24 09:00 03/10/24 08:15 Torsemide 20 Mg Tablet PO 100 mg QAM [facility] Administration Radiology Results: ITS Impressions Chest X-Ray 03/09/24 17:41 Impression: 1: Cardiomegaly with pulmonary vascular congestion. Labs Labs: Laboratory Results - last 24 hr 03/09/24 03/09/24 16:58 18:47 WBC 15.9 H RBC 2.68 L Hgb 8.9 L Hct 26.5 L MCV 98.9 MCH 33.2 MCHC 33.6 RDW 13.2 Plt Count 335 MPV 8.8 Immature Gran % (Auto) 0.5 Neut % (Auto) 69.0 Lymph % (Auto) 11.0 L [place] % (Auto) 9.8 H Eos % (Auto) 9.2 H Baso % (Auto) 0.5 Lymph # (Auto) 1.75 [place] # (Auto) 1.6 H Eos # (Auto) 1.5 H Baso # (Auto) 0.1 Abs Immat Gran (auto) 0.08 H Absolute Neuts (auto) 10.9 H Absolute Nucleated RBC 0.000 Nucleated RBC % 0.0 PT 13.7 INR 1.0 APTT 32.1 Sodium 132 L Potassium 3.5 Chloride 91 L Carbon Dioxide 26 Anion Gap 15 H BUN 54 H Creatinine 12.88 H Estim Creat Clear Calc 8 Estimated GFR 4 L Glucose 97 Calcium 7.8 L Total Bilirubin 0.7 AST 23 ALT 20 Alkaline Phosphatase 120 NT-Pro-B Natriuret Pep > 84484 H Total Protein 7.0 Albumin 3.9 Hep Bs Antigen Negative Hep Bs Antibody Negative
[2024-03-10] MEDS: EPOETIN ALFA-EPBX 10,000 UNITS/ML VIAL 10000 UNITS SUB-Q (10:31)
[2024-03-10 10:36] LABS: Iron 37 ug/dL (49-181)
[2024-03-10 10:49] LABS: Percent Iron Saturation 15 % (20-50)
[2024-03-10 10:50] LABS: Hemoglobin A1C 4.8 % (<5.7)
[2024-03-10 11:43] LABS: Folic Acid 10.1 ng/mL (2.76->20)
[2024-03-10] MEDS: DIPHENOXYLATE/ATROPINE (*CRX) 2.5 MG TABLET 1 TABLET PO (12:16)
[2024-03-10] MEDS: HEPARIN SODIUM 5,000 UNITS/ML VIAL 5000 UNITS SUB-Q ×2 (13:41→21:55)
[2024-03-10 15:00] LABS: Rapid Plasma Reagin Non-Reactive (NonReactive)
[2024-03-10] MEDS: IPRATROPIUM 0.5 MG/ALBUTEROL SULFATE 2.5 MG AMPUL.NEB 3 ML INHALATION (17:48)
[2024-03-10] MEDS: ONDANSETRON INJ 4 MG/2 ML VIAL IV PUSH (20:31)
[2024-03-10] MEDS: ACETAMINOPHEN 325 MG TABLET 650 MG PO (20:32)
[2024-03-10] MEDS: MELATONIN 5 MG TABLET 20 MG PO (20:33)
[2024-03-10] MEDS: NORTRIPTYLINE HCL 25 MG CAPSULE 50 MG PO (20:33)
[2024-03-11] VITALS (32 sets, daily range): BP systolic 108–182; BP diastolic 66–101; PULSE 75–108; RESP 15–32; TEMP 36.1–38.7; O2SAT 90–100
[2024-03-11 00:12] LABS: Influenza A QL RT-PCR Positive (Negative); Influenza B QL RT-PCR Negative (Negative); RSV RNA, RT-PCR Negative (Negative); SARS-CoV-2 RNA PCR Negative (Negative)
--- NOTE | 2024-03-11 00:14 | P.PNCROSS_ITS ---
Event Note Event Note Event Note: 03/10/2024 at 23:00 I was rounding on patient's on psych and medical when the nurse. The tell me that the patient had spiked a fever. His temperature was 101.8?. He was mildly tachycardic heart rate ranging between 100- 105. His respiratory rate was up to 24. He was noted to be having chills by the nursing staff but was obviously hot to touch. The patient reports that he has been wheezing for quite some time at home and spoke briefly relieved with inhalers. He did have a nebulizer treatment at the beginning of the shift to that patient reported did help with his shortness of breath but also caused him to feel nauseous. When nursing staff went back in the room to obtain the COVID flu and RSV PCR that I had ordered she noted that the patient's tongue seemed large. The patient stated that his tongue does not feel any larger than usual. Nursing staff had noticed that the patient seemed to be ?mush mouth.? The patient stated he did not notice a difference in his speech. He did seem to be somewhat hard of hearing. The patient had not had any recent blood cultures or infectious evaluation. His white count on admission was 15.9. Orders were given for blood cultures to be obtained. Patient only produces urine once a day and is not having any urinary symptoms. I did go and evaluate the patient due to concern for possible tongue swelling. Patient did not have any posterior pharyngeal erythema but did have crowded posterior oropharynx. He denies known history of obstructive sleep apnea. He is maintaining oxygen saturations on 3 L nasal cannula. Patient was maintaining saturations despite the nasal cannula only being in 1 nares. He was noted to be overtly wheezing. His abdomen is distended but he is currently undergoing peritoneal dialysis. After my evaluation the patient's influenza A PCR came back positive. Patient is not a candidate for Tamiflu due to his end- stage renal disease. 1. Sepsis due to influenza A--patient is not a candidate for Tamiflu. Continue supportive care. Will switch nebulizer treatments to Xopenex and Atrovent as the patient reports feeling tremulous with albuterol. But he does report improvement in symptoms with nebulizers. 2. Large tongue--patient denies sensation of tongue swelling or fullness. Patient likely does has chronically crowded posterior oropharynx and tongue due to body habitus. Will monitor closely in consider epinephrine and or steroid therapy if over edema develops. 30 minute spent in critical care activities. Due to a high probability of clinically significant, life threatening deterioration, the patient required my highest level of preparedness to intervene emergently and I personally spent this critical care time directly and personally managing the patient. This critical care time included obtaining a history; examining the patient; pulse oximetry; ordering and review of studies; arranging urgent treatment with development of a management plan; evaluation of patient's response to treatment; frequent reassessment; and discussions with other providers. It was exclusive of separately billable procedures and treating other patients and teaching time. Please see Assessment and Plan section and the rest of the note for further information on patient assessment and treatment.
[2024-03-11] MEDS: ACETAMINOPHEN 325 MG TABLET 650 MG PO ×3 (01:00→14:44)
[2024-03-11] MEDS: IPRATROPIUM 0.5 MG/ALBUTEROL SULFATE 2.5 MG AMPUL.NEB 3 ML INHALATION ×3 (01:10→21:45)
[2024-03-11] MEDS: HEPARIN SODIUM 5,000 UNITS/ML VIAL 5000 UNITS SUB-Q ×3 (05:55→21:30)
[2024-03-11 06:13] LABS: Basophils Absolute Auto 0.1 K/mm3 (0.0-0.1); Basophils Percent Auto 0.8 % (0.2-1.2); Eosinophils Absolute Auto 0.3 K/mm3 (0-0.3); Hematocrit 34.7 % (42.0-52.0); Immature Granulocyte Absolute 0.14 K/mm3 (0.00-0.031); Lymphocytes Absolute Auto 0.87 K/mm3 (0.9-3.2); Lymphocytes Percent Auto 5.9 % (18.3-44.2); Mean Corpuscular HGB Conc 31.7 g/dl (32-36); Mean Corpuscular Hemoglobin 32.2 pg (26-34); Mean Corpuscular Volume 101.5 fl (80-100); Mean Platelet Volume 8.9 fl (7.4-10.4); Monocytes Absolute Auto 2.1 K/mm3 (0.1-0.6); Monocytes Percent Auto 14.5 % (2.6-8.5); Neutrophils Absolute Auto 11.1 K/mm3 (1.3-6.7); Neutrophils Percent Auto 75.8 % (45.5-73.1); Nucleated Red Blood Cells Perc 0.4 % (0.0-0.2); Platelet Count Result 356 k/mm3 (150-375); Red Blood Count 3.42 M/mm3 (4.6-6.20); Red Cell Distribution Width 13.3 % (11.5-14.5); White Blood Count 14.6 K/mm3 (4.5-10.0)
--- NOTE | 2024-03-11 06:15 | ECG_ITS ---
Test Date: 2024-03-11 06:36:38 Measurements Intervals [place] Rate: 116 P: 29 [place]: 186 QRS: 12 QRSD: 105 T: 79 QT: 319 QTc: 444 Interpretive Statements SINUS TACHYCARDIA LEFT ATRIAL ENLARGEMENT [-0.15mV P-WAVE IN V1/V2] NONSPECIFIC ST & T-WAVE ABNORMALITY Compared to ECG 03/09/2024 16:46:58 heart rate increased Electronically Signed On 03-11-2024 10:44:06 [employer] by Sherif Hopkins M.D.
[2024-03-11 06:27] LABS: Alanine Aminotransferase 19 U/L (6-50); Albumin Level 4.4 g/dL (3.5-5.1); Alkaline Phosphatase 137 U/L (38-126); Anion Gap 19 mmol/L (4-12); Aspartate Amino Transferase 20 U/L (17-59); Bilirubin,Total 0.7 mg/dL (0.2-1.3); Blood Urea Nitrogen 51 mg/dL (9-20); Calcium 8.8 mg/dL (8.4-10.2); Carbon Dioxide 28 mmol/L (22-30); Chloride 92 mmol/L (98-107); Estimated CRCL calculation 7 ml/min; Estimated Glomerular Filt Rate 4; Glucose 127 mg/dL (65-110); Potassium 3.7 mmol/L (3.4-5.0); Sodium 139 mmol/L (137-145)
--- NOTE | 2024-03-11 06:38 | PC.NURSE ---
This patient, Real Rolon, was received from [facility] on 03/11/24 at 0638. Report received fromCHIKA Portillo. Patient/family oriented to unit policies and routines
--- NOTE | 2024-03-11 06:58 | P.RRN_ITS ---
Critical Care Event Note Summary Code activated: No Narrative: 03/11/2024 at 06:00 Rapid response was called. The patient was found to be hypoxic with increased work of breathing. He was tachypneic with rates in the 30s. Oxygen saturations initially were not improving oxygen was increased from 2 or 3 L up to 5 L nasal cannula. The patient required several minutes of increased flow before oxygen saturations improved. The patient's oxygen saturations were ranging between 92 and 95% but the patient was mouth breathing frequently and oxygen saturations would drop again. The patient had increased encephalopathy and actually thought the month was July or September. The patient had been completely oriented during my prior evaluation. He was still noted to have significant wheezing but increased tachypnea. Stat chest x-ray was performed which demonstrated pulmonary vascular congestion and possible right lower lobe infiltrate. Pulmonary vascular congestion she could be slightly worse than previous but difficult to ascertain given differences in technique. Radiologic i nterpretation was pending at the time my review. Stat ABG was obtained which demonstrated respiratory acidosis with pH of 7.308 and pCO2 of 50 PO2 of 64. Patient was transferred to the ICU and placed on BiPAP 14/8 with 40% FiO2. Patient's respiratory rate at improved down to the mid 20s. Patient's tidal volumes range between 450 and 600. Patient was still having diffuse wheezing throughout. The patient had been on scheduled nebs earlier in the evening but then p.r.n. nebs have been ordered q.2 hours. Despite increased frequency of nebulizers patient's shortness of breath had increased. Denied having any chest pain. Stat EKG performed during rapid response demonstrated sinus tachycardia with baseline artifact. No evidence of acute ischemia. Stat hour long nebulizer treatment was ordered. The patient's blood pressures earlier in the evening had been stable in the 140s to 150 systolic. During rapid response patient's blood pressures did increase to the 180 systolic. Patient was quite anxious and upset that he was being transferred to the ICU. 1. Sepsis due to influenza a 2. Acute hypoxic hypercapnic respiratory failure 3. End-stage renal disease on peritoneal dialysis with volume overload 4. Metabolic encephalopathy multifactorial due sepsis and acute hypercapnic hypoxic respiratory failure Plan: Patient been transferred to the ICU and placed on BiPAP. Will defer further evaluation including addition of antibiotics and/or steroids to corporate associate attorney. Care was handed over at the end of my shift. Blood cultures have been obtained and are pending. Patient has been placed on scheduled nebulizer treatments after hour long nebulizer. Patient is not a candidate for Tamiflu due to end-stage renal disease. CBC and CMP have been ordered as well as a procalcitonin. Will defer fluid status and dialysis management to corporate associate attorney and Nephrology. 80 minute spent in critical care activities. Due to a high probability of clinically significant, life threatening d eterioration, the patient required my highest level of preparedness to intervene emergently and I personally spent this critical care time directly and personally managing the patient. This critical care time included obtaining a history; examining the patient; pulse oximetry; ordering and review of studies; arranging urgent treatment with development of a management plan; evaluation of patient's response to treatment; frequent reassessment; and discussions with other providers. It was exclusive of separately billable procedures and treating other patients and teaching time. Please see Assessment and Plan section and the rest of the note for further information on patient assessment and treatment. Critical care time: 30 - 74 mins
[2024-03-11 06:59] LABS: Procalcitonin 1.1 ng/mL
[2024-03-11] MEDS: ALBUTEROL SULFATE NEB 2.5 MG/3 ML INH 15 MG INHALATION (07:50)
--- NOTE | 2024-03-11 08:34 | P.CONIN_ITS ---
Assessment and Plan Assessment and plan (1) Acute hypercapnic respiratory failure: Code(s): J96.02 - Acute respiratory failure with hypercapnia Status: Acute Assessment and Plan: Acute hypercapnic respiratory failure likely related to volume overload, pneumonia, questionable COPD S patient has a history of tobacco use and currently smokes marijuana -03/11: Transferred from medical floor to ICU for hypoxic and hypercapnic respiratory failure, wheezing, volume overload, possible pneumonia -03/09: Influenza A positive -patient is febrile with a T-max of 101.8?. -started patient on ceftriaxone and vancomycin -discussed with pharmacy will give 1 dose of Tamiflu 30 mg x 1 since he has a peritoneal dialysis patient (2) End-stage renal disease on peritoneal dialysis: Code(s): N18.6 - End stage renal disease; Z99.2 - Dependence on renal dialysis Status: Acute Assessment and Plan: End-stage renal disease on peritoneal dialysis -nephrology follow -PD schedule per dog or animal sitter -patient also is on torsemide, metolazone at home, will continue -if peritoneal dialysis does not improve his volume status, patient may require hemodialysis for fluid removal (3) Fluid overload: Qualifiers: Hypervolemia type: unspecified Qualified Code(s): E87.70 - Fluid overload, unspecified Code(s): E87.70 - Fluid overload, unspecified Status: Acute Assessment and Plan: Likely related to incomplete peritoneal dialysis at home -continue PD per dog or animal sitter (4) HTN (hypertension): Code(s): I10 - Essential (primary) hypertension Status: Chronic Assessment and Plan: Essential hypertension, continue amlodipine, labetalol -will add p.r.n. hydralazine (5) Polyneuropathy: Code(s): G62.9 - Polyneuropathy, unspecified Status: Acute Assessment and Plan: Will discontinue gabapentin since patient has been having tremor-like/asterixis movements -continue nortriptyline (6) Influenza A: Code(s): J10.1 - Influenza due to other identified influenza virus with other respiratory manifestations Status: Acute Assessment and Plan: Tamiflu 30 mg x1 dose, discussed with pharmacy since he is a peritoneal dialysis patient Plan DVT prophylaxis: Heparin SQ Stress ulcer prophylaxis: Protonix Nutrition: NPO for now except sips with meds Code Status: Full code Critical Care Time Spent: 50 minutes Due to a high probability of clinically significant, life threatening deterioration, the patient required my highest level of preparedness to intervene emergently and I personally spent this critical care time directly and personally managing the patient. This critical care time included obtaining a history; examining the patient; pulse oximetry; ordering and review of studies; arranging urgent treatment with development of a management plan; evaluation of patient's response to treatment; frequent reassessment; and discussions with other providers. It was exclusive of separately billable procedures and treating other patients and teaching time. Please see Assessment and Plan section and the rest of the note for further information on patient assessment and treatment This dictation may have been done utilizing a voice recognition system. Attempts have been made to correct errors. However, there may be uncorrected grammatical, spelling, and recognitions errors present. 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 According the dog or animal sitter he has been having some issues for the last couple of months with had a challenging home situation. His not being able to obtain proper equipment for his peritoneal dialysis machine. He was complaining of shortness of breath, wheezing and hypoxia. He has been refusing hemodialysis per dog or animal sitter. In the ER he was placed on supplemental oxygen, x-ray showed volume overload, was admitted to the medical floor. He was tested positive for influenza A. 03/11/2024: hair tinter patient was transferred from the medical floor to the ICU for increasing shortness of breath, tachypnea, hypoxia. Chest x-ray showed volume overload right lower lung zones consistent with atelectasis versus pneumonia. Patient also was febrile to 101.8, hypertensive from a elevated white count. Received peritoneal dialysis overnight. ABG early this morning 6 showed a pH of 7.30, pCO2 50, PO2 of 64. Patient was placed on BiPAP 14 over rate 20 40% FiO2 with adequate tidal volumes. Sinus tachycardia. Patient seen and examined the ICU this morning states he feels better on the BiPAP at this time. Denies any chest pain, abdominal pain, nausea, vomiting at this time. Patient is having some jerking movements of his upper and lower extremities which is spontaneous. He states this is new. I looked back in the records and he has had these jerky movements in the past in September 2023 and attributed to the medication and was started by neurologist. He is on gabapentin which can cause such jerky movement. Review of Systems 2 Review of Systems: All systems reviewed & are unremarkable except as noted in HPI and below PMFSH Past Medical History Medical History Peritoneal dialysis catheter in place Polyneuropathy HTN (hypertension) Vitamin D3 deficiency Family History Family History Father Hypertension Social History Social History Smoking packs per day: 1.5 Smoking cigarettes per day: 30.0 Years smoked: 20 Smoking pack-years: 30.00 Smoking status: Former smoker Tobacco type: cigarettes Alcohol intake: current Alcohol use details: rarely Substance use: current Substance use type: marijuana Other substance usage details: OCCASIONAL Do You Feel Safe in your Home?: Yes Lack of Transportation: YES Lack of Food: Sometimes True Current Housing: I Have Housing Concerned About Future Housing: No Difficulty Paying Gas/Electric Bills: YES Difficulty Paying for Meds: No Currently Unemployed: No Education: Bachelor's Degree Difficulty w/ Childcare or Family Care: No Living arrangements: with family Occupation/Education: unemployed Gender identity (if verbalized by the patient): Male Sexual Orientation (if Verbalized by the Patient): Straight or Heterosexual Spiritual care concerns: No Agree to blood products: Yes Meds Home Medications and Allergies Home Medications ?Medication ?Instructions ?Recorded ?Confirmed ?Type calcium acetate 667 mg tablet 2,668 mg PO TIDWMEAL 08/31/22 03/09/24 History gentamicin 0.1 % topical cream 1 applic topical TID PRN DIALYSIS 08/31/22 03/09/24 History CATH. calcium carbonate (Tums) 200 mg PO HS PRN Indigestion 07/20/23 03/09/24 History cinacalcet 30 mg tablet 90 mg PO DAILY 07/20/23 03/09/24 History melatonin 10 mg capsule 20 mg PO QHS 07/20/23 03/09/24 History multivitamin 1 tablet PO DAILY 07/29/23 03/09/24 History ferric citrate 210 mg iron tablet 210 mg PO TIDWM 09/28/23 03/09/24 History (Auryxia) potassium chloride 20 mEq 40 meq (2 x 20 mEq) PO DAILY #15 10/12/23 03/09/24 Rx tablet,extended release (K-Tab) tabs gabapentin 300 mg capsule See Rx Instructions .Route 10/26/23 03/09/24 Rx .COMPLEX #270 caps hydrocodone 5 mg-acetaminophen 325 1 tablet PO Q8H PRN Pain Rated 01/31/24 03/09/24 Rx mg tablet 4-10 #90 tabs albuterol sulfate 90 mcg/actuation 2 inh inhalation QID PRN shortness 02/03/24 03/09/24 Rx aerosol inhaler of breath or wheezing #8.5 grams amlodipine 10 mg tablet 10 mg PO DAILY 02/03/24 03/09/24 History labetalol 200 mg tablet 100 mg PO BID 02/03/24 03/09/24 History ondansetron 4 mg disintegrating 8 mg (2 x 4 mg) PO Q8H PRN Nausea 02/03/24 03/09/24 Rx tablet And Vomiting #30 tabs buspirone 10 mg tablet See Rx Instructions .Route 02/14/24 03/09/24 Rx .COMPLEX #90 tabs metolazone 5 mg tablet 5 mg PO DAILY #30 tabs 02/28/24 03/09/24 Rx torsemide 100 mg tablet 100 mg PO QAM #30 tabs 02/28/24 03/09/24 Rx diphenoxylate-atropine 2.5 1 tablet PO QID PRN diarrhea #60 03/08/24 03/09/24 Rx mg-0.025 mg tablet tabs nortriptyline 50 mg capsule 50 mg PO QHS #30 caps 03/08/24 03/09/24 Rx omeprazole 20 mg capsule,delayed 20 mg PO DAILY #90 caps 03/08/24 03/09/24 Rx release escitalopram oxalate 10 mg tablet 10 mg PO DAILY 03/09/24 03/09/24 History Allergies Allergy/AdvReac Type Severity Reaction Status Date / Time No Known Allergies Allergy Verified 03/08/24 14:26 Vital Signs Vital Signs - 24 hr 03/10/24 09:47 03/10/24 12:00 03/10/24 13:37 Temperature 98.8 F Pulse Rate 95 90 Respiratory Rate 18 Blood Pressure 141/83 H Pulse Oximetry 92 97 Oxygen Delivery Nasal Cannula Oxygen Flow Rate 3 Fraction of Inspired Oxygen 03/10/24 15:27 03/10/24 15:54 03/10/24 16:00 Temperature Pulse Rate 89 94 Respiratory Rate 20 Blood Pressure Pulse Oximetry Oxygen Delivery Oxygen Flow Rate 4 Fraction of Inspired Oxygen 03/10/24 17:48 03/10/24 17:56 03/10/24 20:00 Temperature Pulse Rate 105 H 104 H Respiratory Rate 24 H 24 H Blood Pressure Pulse Oximetry 95 Oxygen Delivery Nasal Cannula Oxygen Flow Rate 3 Fraction of Inspired Oxygen 03/10/24 20:00 03/10/24 20:32 03/10/24 20:34 Temperature 101.8 F H Pulse Rate 108 H 104 H Respiratory Rate Blood Pressure Pulse Oximetry Oxygen Delivery Oxygen Flow Rate Fraction of Inspired Oxygen 03/10/24 20:44 03/10/24 21:32 03/11/24 00:00 Temperature 101.8 F H 100.2 F H Pulse Rate 100 90 Respiratory Rate 16 Blood Pressure 154/88 H Pulse Oximetry 95 Oxygen Delivery Oxygen Flow Rate Fraction of Inspired Oxygen 03/11/24 01:00 03/11/24 01:10 03/11/24 02:00 Temperature 100.3 F H 98.8 F Pulse Rate 106 H Respiratory Rate 22 H Blood Pressure Pulse Oximetry Oxygen Delivery Oxygen Flow Rate Fraction of Inspired Oxygen 03/11/24 04:00 03/11/24 05:54 03/11/24 06:00 Temperature 101.7 F H 101.7 F H Pulse Rate 108 H 78 Respiratory Rate 28 H Blood Pressure 182/85 H Pulse Oximetry 90 Oxygen Delivery Oxygen Flow Rate Fraction of Inspired Oxygen 03/11/24 07:11 03/11/24 07:52 03/11/24 07:52 Temperature 101.7 F H Pulse Rate 78 106 H 106 H Respiratory Rate 28 H 32 H 32 H Blood Pressure 182/85 H Pulse Oximetry 93 Oxygen Delivery BiPAP Oxygen Flow Rate Fraction of Inspired Oxygen 40 03/11/24 08:00 Temperature 99.8 F H Pulse Rate 103 H Respiratory Rate 24 H Blood Pressure 167/91 H Pulse Oximetry 97 Oxygen Delivery Oxygen Flow Rate Fraction of Inspired Oxygen Exam 2 Narrative: General: Patient appears older than his stated age, currently in no acute distress HEENT:? Pupils equal and reactive, sclerae is clear, BiPAP mask in place Respiratory:? Decreased air entry in all lung zones, diffuse wheezing, coarse breath sounds at bases Cardiac:? S1-S2 is normal, slight tachycardia with heart rates in the 100-110 Abdomen:? Soft, nontender, protuberant, decreased bowel sounds Extremities:? Bilateral upper and lower extremity edema,, palpable pedal pulses, Neuro:? Patient is awake, alert, able to answer questions and follows simple commands in all extremities Skin:? Chronic venous stasis change Psych:? Normal mentation, flat affect Results Labs 03/11/24 05:54 03/11/24 05:54 Labs: Short CBC 03/11/24 Range/Units 05:54 WBC 14.6 H (4.5-10.0) K/mm3 Hgb 11.0 L (14.0-18.0) g/dL Hct 34.7 L (42.0-52.0) % Plt Count 356 (150-375) k/mm3 BMP 03/11/24 05:54 Sodium 139 Potassium 3.7 Chloride 92 L Carbon Dioxide 28 BUN 51 H Creatinine 13.41 H Glucose 127 H Calcium 8.8 Liver Function 03/11/24 Range/Units 05:54 Total Bilirubin 0.7 (0.2-1.3) mg/dL AST 20 (17-59) U/L ALT 19 (6-50) U/L Alkaline Phosphatase 137 H (38-126) U/L Albumin 4.4 (3.5-5.1) g/dL Quality VTE Prophylaxis VTE prophylaxis: pharmacologic ordered Hospitalist [facility] Advance Care Plan I have confirmed that the patient's Advanced Care Plan is present, code status is documented, or surrogate decision maker is listed in patient medical record.: Yes Medication Reconciliation I have utilized all available resources to obtain, update and review the patients current medications (includes all prescriptions, OTC, herbals, cannabis, and nutritional supplements).: Yes
--- NOTE | 2024-03-11 10:27 | P.PNNP_ITS ---
Progress Note: A&P Assessment and Plan (1) ESRD on dialysis: Code(s): N18.6 - End stage renal disease; Z99.2 - Dependence on renal dialysis Status: Acute Assessment and Plan: The patient is on peritoneal dialysis nightly. His BUN is actually pretty good at 54 and his Kt over V at the clinic has been good so I think he is getting adequate dialysis. He does have asterixis. the patient was recently placed on gabapentin which can definitely cause asterixis. So this has been discontinued. Will continue dialysis. He is getting another round of dialysis today. We will then get more dialysis tonight. Will fluid restrict and sodium restrict and also increase the torsemide (2) Pulmonary edema: Code(s): J81.1 - Chronic pulmonary edema Status: Acute Assessment and Plan: The patient has pulmonary edema from volume overload. His echo showed good 1 diastolic dysfunction but otherwise looks good Continue fluid removal, and fluid restriction as well sodium restriction (3) Anemia of chronic disease: Code(s): D63.8 - Anemia in other chronic diseases classified elsewhere Status: Acute Assessment and Plan: Hemoglobin is up to 11. I suspect this is because of fluid removal. Will hold the Epogen (4) Hyponatremia: Code(s): E87.1 - Hypo-osmolality and hyponatremia Status: Acute Assessment and Plan: The patient has a low sodium. This is from the water drinking. sodium level is better today. (5) Neuropathy: Code(s): G62.9 - Polyneuropathy, unspecified Status: Acute Assessment and Plan: Etiology unclear. He has a diagnosis of diabetes in the chart but tells me that he does not have diabetes. His A1c was 4.8. RPR, TOOTIE, TSH, B12 folate and serum electrophoresis and immunofixation have been ordered. Subjective Date/time seen: 03/11/24 10:27 Interval history: patient deteriorated last evening. His PD machine was disconnected and he was moved to the ICU. It is impossible to know how much of his dialysis he really got, but the rapid response was sometime in the wee hours of the morning so he probably got most of it done. He is on BiPAP now. He opens his eyes and answer some questions but is somewhat groggy. Review of Systems Cardiovascular: Cardiovascular: Reports no additional cardiovascular complaints Respiratory: Respiratory: Reports no additional respiratory complaints Gastrointestinal: Gastrointestinal: Reports no additional gastrointestinal complaints Genitourinary: Genitourinary: Reports no additional male genitourinary complaints Exam Narrative: WDWN in NAD On noninvasive ventilator. skin no rash head ncat lungs Some increase in expiratory phase, not as much wheezing as yesterday cor reg no rub or gallop abd BS+ nontender and soft ext 2+ bilateral edema. neuro asterixis Objective Data Vital Signs Vital Signs: Vital Signs - 24 hr 03/10/24 12:00 03/10/24 13:37 03/10/24 15:27 Temperature 98.8 F Pulse Rate 95 90 89 Respiratory Rate 18 20 Blood Pressure 141/83 H Pulse Oximetry 97 Oxygen Delivery Oxygen Flow Rate Fraction of Inspired Oxygen 03/10/24 15:54 03/10/24 16:00 03/10/24 17:48 Temperature Pulse Rate 94 105 H Respiratory Rate 24 H Blood Pressure Pulse Oximetry Oxygen Delivery Oxygen Flow Rate 4 Fraction of Inspired Oxygen 03/10/24 17:56 03/10/24 20:00 03/10/24 20:00 Temperature Pulse Rate 104 H 108 H Respiratory Rate 24 H Blood Pressure Pulse Oximetry 95 Oxygen Delivery Nasal Cannula Oxygen Flow Rate 3 Fraction of Inspired Oxygen 03/10/24 20:32 03/10/24 20:34 03/10/24 20:44 Temperature 101.8 F H 101.8 F H Pulse Rate 104 H 100 Respiratory Rate 16 Blood Pressure 154/88 H Pulse Oximetry 95 Oxygen Delivery Oxygen Flow Rate Fraction of Inspired Oxygen 03/10/24 21:32 03/11/24 00:00 03/11/24 01:00 Temperature 100.2 F H 100.3 F H Pulse Rate 90 Respiratory Rate Blood Pressure Pulse Oximetry Oxygen Delivery Oxygen Flow Rate Fraction of Inspired Oxygen 03/11/24 01:10 03/11/24 02:00 03/11/24 04:00 Temperature 98.8 F Pulse Rate 106 H 108 H Respiratory Rate 22 H Blood Pressure Pulse Oximetry Oxygen Delivery Oxygen Flow Rate Fraction of Inspired Oxygen 03/11/24 05:54 03/11/24 06:00 03/11/24 06:03 Temperature 101.7 F H 101.7 F H 101.7 F H Pulse Rate 78 78 Respiratory Rate 28 H 28 H Blood Pressure 182/85 H 182/85 H Pulse Oximetry 90 90 Oxygen Delivery Nasal Cannula Oxygen Flow Rate 3 Fraction of Inspired Oxygen 03/11/24 07:11 03/11/24 07:52 03/11/24 07:52 Temperature 101.7 F H Pulse Rate 78 106 H 106 H Respiratory Rate 28 H 32 H 32 H Blood Pressure 182/85 H Pulse Oximetry 93 Oxygen Delivery BiPAP Oxygen Flow Rate Fraction of Inspired Oxygen 40 03/11/24 08:00 03/11/24 08:53 03/11/24 10:00 Temperature 99.8 F H Pulse Rate 103 H 104 H 95 Respiratory Rate 24 H 20 24 H Blood Pressure 167/91 H 141/82 H Pulse Oximetry 97 100 Oxygen Delivery Oxygen Flow Rate Fraction of Inspired Oxygen Intake/Output Intake/Output: Intake & Output 03/08/24 03/09/24 03/10/24 03/11/24 23:59 23:59 23:59 23:59 Intake Total 1220 300 Output Total 5479 Balance -4259 300 Meds/Results Medications: Active Medications Generic Name Dose Route Start Last Admin Trade Name Freq PRN Reason Stop Dose Admin Acetaminophen 650 mg 03/09/24 18:43 03/11/24 05:54 Acetaminophen 325 Mg Tablet PO 650 mg Q4H PRN Administration Mild Pain (1-3) or Fever Albuterol/Ipratropium 3 ml 03/11/24 02:00 03/11/24 07:51 Ipratropium 0.5 Mg/Albuterol Sulfate 2.5 Mg Ampul.Neb 3 Ml INHALATION Not Given Q6HRT [facility] Albuterol/Ipratropium 3 ml 03/11/24 00:48 Ipratropium 0.5 Mg/Albuterol Sulfate 2.5 Mg Ampul.Neb 3 Ml INHALATION Q2HRT PRN Shortness Of Breath Or Wheezing Amlodipine Besylate 10 mg 03/10/24 09:00 03/10/24 08:14 Amlodipine Besylate 10 Mg Tablet PO 10 mg DAILY CARIDAD Administration Buspirone HCl 10 mg 03/10/24 09:00 03/10/24 17:16 Buspirone Hcl 10 Mg Tablet BY MOUTH 10 mg TID [facility] Administration Calcium Acetate 2,668 mg 03/10/24 08:00 03/10/24 17:16 Calcium Acetate 667 Mg Tablet PO 2,668 mg TIDWM [facility] Administration Calcium Carbonate 200 mg 03/09/24 23:10 Calcium Carbonate (Tums) 500 Mg (200 Mg Elemental) PO HS PRN Indigestion Cinacalcet 90 mg 03/10/24 09:00 03/10/24 08:14 Cinacalcet 30 Mg Tablet PO 90 mg DAILY CARID[facility] Administration Epoetin Luke-epbx 10,000 units 03/10/24 09:30 03/10/24 10:31 Epoetin Luke-Epbx 10,000 Units/Ml Vial SUB-Q 10,000 units MOWEFR@09 [facility] Administration Escitalopram Oxalate 10 mg 03/10/24 09:00 03/10/24 08:14 Escitalopram Oxalate 10 Mg Tablet PO 10 mg DAILY [facility] Administration Gentamicin Sulfate 1 applic 03/09/24 21:00 03/11/24 05:37 Gentamicin Sulfate 0.1% Cr 15 Gm Tube TOPICAL Not Given QHS [facility] Heparin Sodium (Porcine) 5,000 units 03/10/24 14:00 03/11/24 05:55 Heparin Sodium 5,000 Units/Ml Vial SUB-Q 5,000 units Q8HR [facility] Administration Ceftriaxone Sodium 2 gm in 100 mls @ 200 mls/hr 03/11/24 10:00 Rocephin 2 Gm/Ns 100 Ml IVPB DAILY [facility] Vancomycin HCl 2,000 mg in 500 mls @ 250 mls/hr 03/11/24 11:00 Vancomycin 2,000 Mg/Ns 500 Ml IVPB 03/11/24 12:59 ONCE ONE Labetalol HCl 100 mg 03/10/24 09:00 03/10/24 20:34 Labetalol Hcl 100 Mg Tablet PO 100 mg Q12HR [facility] Administration Melatonin 20 mg 03/10/24 21:00 03/10/24 20:33 Melatonin 5 Mg Tablet PO 20 mg QHS [facility] Administration Methylprednisolone Sodium Succinate 40 mg 03/11/24 12:00 Methylprednisolone Sod Succ 40 Mg Vial IV PUSH Q6HR [facility] Metolazone 5 mg 03/10/24 09:00 03/10/24 08:14 Metolazone 5 Mg Tablet PO 5 mg DAILY [facility] Administration *Home Med*Ferric 0 mg 03/10/24 08:00 03/10/24 17:16 Citrate [Auryxia] PO 04/09/24 07:59 820 mg 210 Mg Iron Tablet TIDWM [facility] Administration Nortriptyline HCl 50 mg 03/10/24 21:00 03/10/24 20:33 Nortriptyline Hcl 25 Mg Capsule PO 50 mg QHS [facility] Administration Ondansetron HCl 4 mg 03/09/24 18:43 03/10/24 20:31 Ondansetron Inj 4 Mg/2 Ml Vial IV PUSH 4 mg Q4H PRN Administration Nausea Pantoprazole Sodium 40 mg 03/10/24 09:00 03/10/24 08:14 Pantoprazole 40 Mg Tablet PO 40 mg QAM [facility] Administration Pantoprazole Sodium 40 mg 03/11/24 09:00 Pantoprazole Sodium Iv 40 Mg Vial IV PUSH QAM [facility] Torsemide 100 mg 03/10/24 09:00 03/10/24 08:15 Torsemide 20 Mg Tablet PO 100 mg QAM [facility] Administration Vancomycin HCl 1 each 03/11/24 10:21 Vancomycin For Peritoneal Dialysis IVPB PRN PRN Vancomycin Protocol Radiology Results: ITS Impressions Chest X-Ray 03/11/24 06:32 IMPRESSION: 1. Airspace opacities in right lower lung zone, consistent with atelectasis versus pneumonia. Labs Labs: Laboratory Results - last 24 hr 03/10/24 03/10/24 03/10/24 09:39 09:40 09:41 WBC RBC Hgb Hct MCV MCH MCHC RDW Plt Count MPV Immature Gran % (Auto) Neut % (Auto) Lymph % (Auto) [place] % (Auto) Eos % (Auto) Baso % (Auto) Lymph # (Auto) [place] # (Auto) Eos # (Auto) Baso # (Auto) Abs Immat Gran (auto) Absolute Neuts (auto) Absolute Nucleated RBC Nucleated RBC % Sodium Potassium Chloride Carbon Dioxide Anion Gap BUN Creatinine Estim Creat Clear Calc Estimated GFR Glucose Hemoglobin A1c Calcium Iron 37 L TIBC 245 L % Saturation 15 L Ferritin 782.00 H Total Bilirubin AST ALT Alkaline Phosphatase Total Protein Albumin Vitamin B12 Folate Procalcitonin TSH (Reflex) 1.270 RPR Non-reactive Influenza A (RT-PCR) Influenza B (RT-PCR) RSV (RT-PCR) SARS-CoV-2 RNA (RT-PCR) 03/10/24 03/10/24 03/11/24 09:42 23:32 05:54 WBC 14.6 H RBC 3.42 L Hgb 11.0 L Hct 34.7 L MCV 101.5 H MCH 32.2 MCHC 31.7 L RDW 13.3 Plt Count 356 MPV 8.9 Immature Gran % (Auto) 1.0 H Neut % (Auto) 75.8 H Lymph % (Auto) 5.9 L [place] % (Auto) 14.5 H Eos % (Auto) 2.0 Baso % (Auto) 0.8 Lymph # (Auto) 0.87 L [place] # (Auto) 2.1 H Eos # (Auto) 0.3 Baso # (Auto) 0.1 Abs Immat Gran (auto) 0.14 H Absolute Neuts (auto) 11.1 H Absolute Nucleated RBC 0.060 H Nucleated RBC % 0.4 H Sodium 139 Potassium 3.7 Chloride 92 L Carbon Dioxide 28 Anion Gap 19 H BUN 51 H Creatinine 13.41 H Estim Creat Clear Calc 7 Estimated GFR 4 L Glucose 127 H Hemoglobin A1c 4.8 Calcium 8.8 Iron TIBC % Saturation Ferritin Total Bilirubin 0.7 AST 20 ALT 19 Alkaline Phosphatase 137 H Total Protein 8.0 Albumin 4.4 Vitamin B12 743.0 Folate 10.1 Procalcitonin 1.1 TSH (Reflex) RPR Influenza A (RT-PCR) Positive A Influenza B (RT-PCR) Negative RSV (RT-PCR) Negative SARS-CoV-2 RNA (RT-PCR) Negative
[2024-03-11] MEDS: CALCIUM ACETATE 667 MG TABLET 2668 MG PO (10:34)
[2024-03-11] MEDS: IRON PO (10:35)
[2024-03-11] MEDS: FERRIC CITRATE 210 MG PO (10:35)
[2024-03-11] MEDS: methylPREDNISolone SOD SUCC 125 MG VIAL IV PUSH (10:37)
[2024-03-11] MEDS: PANTOPRAZOLE SODIUM IV 40 MG VIAL IV PUSH (10:37)
[2024-03-11] MEDS: metOLazone 5 MG TABLET PO (10:38)
[2024-03-11] MEDS: amLODIPine BESYLATE 10 MG TABLET PO (10:38)
[2024-03-11] MEDS: ESCITALOPRAM OXALATE 10 MG TABLET PO (10:38)
[2024-03-11] MEDS: busPIRone HCL 10 MG TABLET BY MOUTH ×3 (10:38→17:36)
[2024-03-11] MEDS: LABETALOL HCL 100 MG TABLET PO ×2 (10:39→21:29)
[2024-03-11] MEDS: CINACALCET 30 MG TABLET 90 MG PO (10:39)
[2024-03-11] MEDS: OSELTAMIVIR PHOSPHATE 30 MG CAPSULE PO (10:43)
[2024-03-11] MEDS: cefTRIAXone 2 GM/NS 100 ML 2 GM/100 ML BAG IVPB (10:58)
[2024-03-11 11:34] LABS: Alveolar/Arterial O2 Gradient 162.3 mmHg; Base Excess ABG -1.9 mEq/l (+/-2.0); Fractional Inspired Oxygen 40 %; HCO3 ABG 24.7 mEq/l (22.0-26.0); Oxygen Content ABG 14.1 %vol (16.0-22.0); Oxygen Saturation ABG 90.6 % (95.0-100.0); PCO2 ABG 50.5 mmHg (35.0-45.0); PO2 ABG 64.8 mmHg (80.0-100.0); PO2 FiO2 Ratio Arterial Blood 1.62 %; Total Hemoglobin 11.1 g/dL (12.0-18.0); pH ABG 7.308 (7.350-7.450)
[2024-03-11 11:35] LABS: Device BIPAP; Expiratory Pressure 8 cmH2O; Inspiratory Pressure 14 cmH2O; Modified Allen's Test Pass; Site Drawn LEFT RADIAL
--- NOTE | 2024-03-11 11:44 | PC.NURSE ---
Notified Dr Marcus of PT torosemide falling off due to new order. received order for a one time dose of 100mg since the morning dose was changed to BID. Received order for phosphate, iron, and ferritin for morning labs. Received order to hold medications that are supposed to be given with meals until labs are drawn and assessed tomorrow.
[2024-03-11 12:37] LABS: Alveolar/Arterial O2 Gradient 150.6 mmHg; Base Excess ABG 0.2 mEq/l (+/-2.0); Fractional Inspired Oxygen 40 %; HCO3 ABG 27.7 mEq/l (22.0-26.0); Oxygen Saturation ABG 89.9 % (95.0-100.0); Oxyhemoglobin 90.9 % THb (90.0-100.0); PO2 ABG 65.5 mmHg (80.0-100.0); PO2 FiO2 Ratio Arterial Blood 1.64 %; Total Hemoglobin 10.9 g/dL (12.0-18.0)
[2024-03-11 12:43] LABS: Protein, Total 5.4 g/dL (6.1-8.1)
[2024-03-11 12:46] LABS: pH ABG 7.282 (7.350-7.450)
[2024-03-11] MEDS: TORSEMIDE 20 MG TABLET 100 MG PO ×2 (12:46→17:35)
[2024-03-11 12:47] LABS: Device BIPAP; Modified Allen's Test Pass; PCO2 ABG 60.1 mmHg (35.0-45.0); Site Drawn RIGHT RADIAL
[2024-03-11 12:48] LABS: Expiratory Pressure 8 cmH2O; Inspiratory Pressure 14 cmH2O
[2024-03-11] MEDS: methylPREDNISolone SOD SUCC 40 MG VIAL IV PUSH ×2 (12:48→17:36)
[2024-03-11] MEDS: VANCOMYCIN 2,000 MG/NS 500 ML 2,000 MG/500 ML BAG 250 MG IVPB (12:49)
[2024-03-11 17:09] LABS: Alveolar/Arterial O2 Gradient 148.2 mmHg; Base Excess ABG -2.4 mEq/l (+/-2.0); Fractional Inspired Oxygen 40 %; HCO3 ABG 24.2 mEq/l (22.0-26.0); Oxygen Content ABG 15.4 %vol (16.0-22.0); Oxygen Saturation ABG 94.5 % (95.0-100.0); Oxyhemoglobin 94.7 % THb (90.0-100.0); PCO2 ABG 49.9 mmHg (35.0-45.0); PO2 ABG 79.6 mmHg (80.0-100.0); PO2 FiO2 Ratio Arterial Blood 1.99 %; Total Hemoglobin 11.5 g/dL (12.0-18.0); pH ABG 7.304 (7.350-7.450)
[2024-03-11 17:12] LABS: Device BIPAP; Modified Allen's Test Pass; Site Drawn RIGHT RADIAL
[2024-03-11 17:13] LABS: Expiratory Pressure 8 cmH2O; Inspiratory Pressure 18 cmH2O
[2024-03-11 17:15] LABS: MRSA (PCR) NOT DETECTED (NOT DETECTE)
--- NOTE | 2024-03-11 17:15 | PC.NURSE ---
Called DR Sewell with results of ABG. Received order to take pt off bipap and try hi flow 40-45L 30-40% based on patient O2 sat. Only ice chips to be given. Place Pt back on bipap tonight.
[2024-03-11] MEDS: NORTRIPTYLINE HCL 25 MG CAPSULE 50 MG PO (21:29)
[2024-03-11] MEDS: hydrALAZINE HCL 20 MG/ML VIAL 10 MG IV PUSH (21:31)
--- NOTE | 2024-03-11 22:30 | PCRCNOTE ---
Patients 2000 breathing tx completed after ordered timeframe due to RT being with critical patient at the time.
[2024-03-12] VITALS (32 sets, daily range): BP systolic 98–141; BP diastolic 61–107; PULSE 80–110; RESP 14–25; TEMP 36.6–36.9; O2SAT 86–97
[2024-03-12 00:34] LABS: Glucose Point of Care 336 mg/dl (65-105)
[2024-03-12] MEDS: methylPREDNISolone SOD SUCC 40 MG VIAL IV PUSH ×5 (02:01→23:16)
[2024-03-12] MEDS: IPRATROPIUM 0.5 MG/ALBUTEROL SULFATE 2.5 MG AMPUL.NEB 3 ML INHALATION ×4 (02:26→20:20)
[2024-03-12 05:13] LABS: Alveolar/Arterial O2 Gradient 149.2 mmHg; Base Excess ABG -2.4 mEq/l (+/-2.0); Carboxyhemoglobin 0.5 % THb (0-2.0); Fractional Inspired Oxygen 40 %; HCO3 ABG 23.8 mEq/l (22.0-26.0); Oxygen Content ABG 17.1 %vol (16.0-22.0); Oxygen Saturation ABG 95.3 % (95.0-100.0); Oxyhemoglobin 95.4 % THb (90.0-100.0); PCO2 ABG 46.6 mmHg (35.0-45.0); PO2 ABG 82.4 mmHg (80.0-100.0); PO2 FiO2 Ratio Arterial Blood 2.06 %; Reduced Hemoglobin 4.1 %THb (0-5.0); Total Hemoglobin 12.7 g/dL (12.0-18.0); pH ABG 7.326 (7.350-7.450)
[2024-03-12 05:17] LABS: Modified Allen's Test Pass; Site Drawn RIGHT RADIAL
[2024-03-12 05:18] LABS: Device NON-INVASIVE VENT; Non-Invasive Expiratory Pressure 8 CMH2O; Non-Invasive Inspiratory Pressure 18 CMH2O; Non-Invasive Vent Rate 20 /MIN
[2024-03-12] MEDS: HEPARIN SODIUM 5,000 UNITS/ML VIAL 5000 UNITS SUB-Q ×3 (05:45→21:11)
[2024-03-12 06:48] LABS: Alanine Aminotransferase 16 U/L (6-50); Albumin Level 4.3 g/dL (3.5-5.1); Alkaline Phosphatase 129 U/L (38-126); Anion Gap 17 mmol/L (4-12); Aspartate Amino Transferase 18 U/L (17-59); Bilirubin,Total 0.6 mg/dL (0.2-1.3); Blood Urea Nitrogen 45 mg/dL (9-20); Calcium 10.1 mg/dL (8.4-10.2); Carbon Dioxide 26 mmol/L (22-30); Chloride 97 mmol/L (98-107); Estimated CRCL calculation 8 ml/min; Estimated Glomerular Filt Rate 4; Glucose 251 mg/dL (65-110); Phosphorus 4.2 mg/dL (2.5-4.5); Potassium 3.1 mmol/L (3.4-5.0); Sodium 140 mmol/L (137-145)
[2024-03-12 06:49] LABS: Lactic Acid Reflex 1.7 mmol/L (0.7-2.0)
[2024-03-12 06:57] LABS: Basophils Percent Auto 0.3 % (0.2-1.2); Hematocrit 37.2 % (42.0-52.0); Hemoglobin 11.9 g/dL (14.0-18.0); Immature Granulocyte Absolute 0.16 K/mm3 (0.00-0.031); Immature Granulocyte Percent A 1.3 % (0-0.5); Lymphocytes Absolute Auto 1.01 K/mm3 (0.9-3.2); Mean Corpuscular Hemoglobin 32.2 pg (26-34); Mean Corpuscular Volume 100.5 fl (80-100); Mean Platelet Volume 9.4 fl (7.4-10.4); Monocytes Absolute Auto 0.8 K/mm3 (0.1-0.6); Monocytes Percent Auto 6.1 % (2.6-8.5); Neutrophils Absolute Auto 10.7 K/mm3 (1.3-6.7); Neutrophils Percent Auto 84.3 % (45.5-73.1); Nucleated Red Blood Cells Perc 0.8 % (0.0-0.2); Platelet Count Result 401 k/mm3 (150-375); White Blood Count 12.7 K/mm3 (4.5-10.0)
[2024-03-12 07:23] LABS: Iron 72 ug/dL (49-181)
[2024-03-12 07:29] LABS: Vancomycin Random 21.3 ug/mL (10-20)
--- NOTE | 2024-03-12 09:27 | PM.PNNEP ---
Progress Note: A&P Assessment and Plan (1) ESRD on dialysis: Code(s): N18.6 - End stage renal disease; Z99.2 - Dependence on renal dialysis Status: Acute Assessment and Plan: The patient is on peritoneal dialysis nightly. His BUN is actually pretty good at 54 and his Kt over V at the clinic has been good so I think he is getting adequate dialysis. He does have asterixis. the patient was recently placed on gabapentin which can definitely cause asterixis. So this has been discontinued. Will continue dialysis. He is getting another round of dialysis today. We then will then get more dialysis tonight. I talked with Cande about this. Will fluid restrict and sodium restrict and also on increased the torsemide long discussion with the patient how the dialysis is doing a good job however he just needs to eat less salt and drink less fluid. (2) Pulmonary edema: Code(s): J81.1 - Chronic pulmonary edema Status: Acute Assessment and Plan: The patient has pulmonary edema from volume overload. His echo showed good 1 diastolic dysfunction but otherwise looks good Continue fluid removal, and fluid restriction as well sodium restriction (3) Anemia of chronic disease: Code(s): D63.8 - Anemia in other chronic diseases classified elsewhere Status: Acute Assessment and Plan: Hemoglobin is up to 11.9. I suspect this is because of fluid removal. Holding the Epogen (4) Hyponatremia: Code(s): E87.1 - Hypo-osmolality and hyponatremia Status: Acute Assessment and Plan: this is better (5) Neuropathy: Code(s): G62.9 - Polyneuropathy, unspecified Status: Acute Assessment and Plan: Etiology unclear. He has a diagnosis of diabetes in the chart but tells me that he does not have diabetes. His A1c was 4.8. B12, folate, TSH, RPR all good. TOOTIE and serum immunofixation were negative in July Subjective Date/time seen: 03/12/24 09:27 Interval history: Patient is more awake today. He insists that he never ever had diabetes. He is on peritoneal dialysis. Tolerating it well. 2L was removed last night. Less last night is probably related to his lower blood pressure. His antihypertensives are being held. he was seen at 8:30 a.m. Exam Narrative: WDWN in NAD On noninvasive ventilator. skin no rash head ncat lungs Some increase in expiratory phase, less wheezing cor reg no rub or gallop abd BS+ nontender and soft ext 1-2+ bilateral edema (better) neuro asterixis Objective Data Vital Signs Vital Signs: Vital Signs - 24 hr 03/11/24 10:00 03/11/24 10:00 03/11/24 10:39 Temperature Pulse Rate 95 80 106 H Respiratory Rate 24 H Blood Pressure 141/82 H Pulse Oximetry 100 Oxygen Delivery Oxygen Flow Rate Fraction of Inspired Oxygen 03/11/24 12:00 03/11/24 12:00 03/11/24 12:00 Temperature 101.0 F H Pulse Rate 87 85 Respiratory Rate 19 Blood Pressure 108/66 Pulse Oximetry 94 95 Oxygen Delivery BiPAP Oxygen Flow Rate Fraction of Inspired Oxygen 03/11/24 14:00 03/11/24 14:00 03/11/24 14:02 Temperature Pulse Rate 80 76 82 Respiratory Rate 20 21 H Blood Pressure 127/75 Pulse Oximetry 94 96 Oxygen Delivery BiPAP Oxygen Flow Rate Fraction of Inspired Oxygen 03/11/24 14:02 03/11/24 14:02 03/11/24 14:34 Temperature Pulse Rate 86 82 84 Respiratory Rate 21 H 21 H 22 H Blood Pressure Pulse Oximetry 96 Oxygen Delivery BiPAP Oxygen Flow Rate Fraction of Inspired Oxygen 40 03/11/24 14:44 03/11/24 16:00 03/11/24 16:00 Temperature 101 F H 98.8 F Pulse Rate 77 Respiratory Rate 19 Blood Pressure 129/80 Pulse Oximetry 93 95 Oxygen Delivery BiPAP Oxygen Flow Rate Fraction of Inspired Oxygen 03/11/24 16:00 03/11/24 17:15 03/11/24 17:50 Temperature Pulse Rate 76 75 84 Respiratory Rate 25 H 20 Blood Pressure Pulse Oximetry 97 97 Oxygen Delivery BiPAP High Flow Therapy with Na Oxygen Flow Rate 45 Fraction of Inspired Oxygen 42 03/11/24 18:00 03/11/24 18:00 03/11/24 18:04 Temperature 98.8 F Pulse Rate 81 94 77 Respiratory Rate 16 19 Blood Pressure 132/89 129/80 Pulse Oximetry 94 Oxygen Delivery Oxygen Flow Rate Fraction of Inspired Oxygen 03/11/24 20:00 03/11/24 20:00 03/11/24 21:29 Temperature Pulse Rate 79 89 Respiratory Rate Blood Pressure Pulse Oximetry 91 Oxygen Delivery High Flow Nasal Cannula Oxygen Flow Rate 45 Fraction of Inspired Oxygen 40 03/11/24 21:32 03/11/24 21:48 03/11/24 21:51 Temperature 97.0 F L Pulse Rate 90 89 90 Respiratory Rate 21 H 15 Blood Pressure 165/101 H Pulse Oximetry 99 Oxygen Delivery High Flow Therapy with Na Oxygen Flow Rate 45 Fraction of Inspired Oxygen 42 03/11/24 21:54 03/11/24 22:00 03/11/24 22:00 Temperature Pulse Rate 88 86 80 Respiratory Rate 21 H 20 Blood Pressure 126/66 Pulse Oximetry 96 Oxygen Delivery Oxygen Flow Rate Fraction of Inspired Oxygen 03/11/24 23:30 03/12/24 00:00 03/12/24 00:00 Temperature 97.8 F Pulse Rate 83 83 Respiratory Rate 28 H 21 H Blood Pressure 116/69 Pulse Oximetry 96 97 95 Oxygen Delivery BiPAP BiPAP Oxygen Flow Rate Fraction of Inspired Oxygen 40 03/12/24 00:00 03/12/24 02:00 03/12/24 02:26 Temperature Pulse Rate 80 81 80 Respiratory Rate 21 H 18 Blood Pressure 102/61 Pulse Oximetry 92 Oxygen Delivery Oxygen Flow Rate Fraction of Inspired Oxygen 03/12/24 02:34 03/12/24 02:35 03/12/24 04:00 Temperature Pulse Rate 84 83 Respiratory Rate 18 25 H Blood Pressure Pulse Oximetry 95 97 Oxygen Delivery BiPAP BiPAP Oxygen Flow Rate Fraction of Inspired Oxygen 40 03/12/24 04:00 03/12/24 04:00 03/12/24 05:30 Temperature 98.1 F Pulse Rate 80 80 Respiratory Rate 21 H 24 H Blood Pressure 111/81 Pulse Oximetry 95 96 Oxygen Delivery BiPAP Oxygen Flow Rate Fraction of Inspired Oxygen 03/12/24 06:00 03/12/24 06:00 03/12/24 08:53 Temperature Pulse Rate 91 91 90 Respiratory Rate 21 H 20 Blood Pressure 98/77 L Pulse Oximetry 93 Oxygen Delivery Oxygen Flow Rate Fraction of Inspired Oxygen 03/12/24 09:08 03/12/24 09:09 Temperature Pulse Rate 92 Respiratory Rate 20 Blood Pressure Pulse Oximetry 93 Oxygen Delivery High Flow Therapy with Na Oxygen Flow Rate 45 Fraction of Inspired Oxygen 42 Intake/Output Intake/Output: Intake & Output 03/09/24 03/10/24 03/11/24 03/12/24 23:59 23:59 23:59 23:59 Intake Total 1220 800 15 Output Total 5479 4044 0 [place]ag[place] -2450 -5362 15 Meds/Results Medications: Active Medications Generic Name Dose Route Start Last Admin Trade Name Freq PRN Reason Stop Dose Admin Acetaminophen 650 mg 03/09/24 18:43 03/11/24 14:44 Acetaminophen 325 Mg Tablet PO 650 mg Q4H PRN Administration Mild Pain (1-3) or Fever Albuterol/Ipratropium 3 ml 03/11/24 02:00 03/12/24 08:53 Ipratropium 0.5 Mg/Albuterol Sulfate 2.5 Mg Ampul.Neb 3 Ml INHALATION 3 ml Q6HRT CARIDAD Administration Albuterol/Ipratropium 3 ml 03/11/24 00:48 Ipratropium 0.5 Mg/Albuterol Sulfate 2.5 Mg Ampul.Neb 3 Ml INHALATION Q2HRT PRN Shortness Of Breath Or Wheezing Amlodipine Besylate 10 mg 03/10/24 09:00 03/11/24 10:38 Amlodipine Besylate 10 Mg Tablet PO 10 mg DAILY CARIDAD Administration Buspirone HCl 10 mg 03/10/24 09:00 03/11/24 17:36 Buspirone Hcl 10 Mg Tablet BY MOUTH 10 mg TID [facility] Administration Calcium Acetate 2,668 mg 03/10/24 08:00 03/11/24 12:20 Calcium Acetate 667 Mg Tablet PO Not Given TIDWM [facility] Calcium Carbonate 200 mg 03/09/24 23:10 Calcium Carbonate (Tums) 500 Mg (200 Mg Elemental) PO HS PRN Indigestion Cinacalcet 90 mg 03/10/24 09:00 03/11/24 10:39 Cinacalcet 30 Mg Tablet PO 90 mg DAILY [facility] Administration Escitalopram Oxalate 10 mg 03/10/24 09:00 03/11/24 10:38 Escitalopram Oxalate 10 Mg Tablet PO 10 mg DAILY [facility] Administration Gentamicin Sulfate 1 applic 03/09/24 21:00 03/12/24 01:57 Gentamicin Sulfate 0.1% Cr 15 Gm Tube TOPICAL Not Given QHS [facility] Heparin Sodium (Porcine) 5,000 units 03/10/24 14:00 03/12/24 05:45 Heparin Sodium 5,000 Units/Ml Vial SUB-Q 5,000 units Q8HR [facility] Administration Hydralazine HCl 10 mg 03/11/24 11:03 03/11/24 21:31 Hydralazine Hcl 20 Mg/Ml Vial IV PUSH 10 mg Q4H PRN Administration Blood Pressure - High Ceftriaxone Sodium 2 gm in 100 mls @ 200 mls/hr 03/11/24 10:00 03/11/24 10:58 Rocephin 2 Gm/Ns 100 Ml IVPB 200 mls/hr DAILY [facility] Administration Labetalol HCl 100 mg 03/10/24 09:00 03/11/24 21:29 Labetalol Hcl 100 Mg Tablet PO 100 mg Q12HR [facility] Administration Melatonin 20 mg 03/10/24 21:00 03/10/24 20:33 Melatonin 5 Mg Tablet PO 20 mg QHS [facility] Administration Methylprednisolone Sodium Succinate 40 mg 03/11/24 12:00 03/12/24 05:45 Methylprednisolone Sod Succ 40 Mg Vial IV PUSH 40 mg Q6HR [facility] Administration Metolazone 5 mg 03/10/24 09:00 03/11/24 10:38 Metolazone 5 Mg Tablet PO 5 mg DAILY [facility] Administration *Home Med*Ferric 0 mg 03/10/24 08:00 03/11/24 12:20 Citrate [Auryxia] PO 04/09/24 07:59 Not Given 210 Mg Iron Tablet TIDWM [facility] Nortriptyline HCl 50 mg 03/10/24 21:00 03/11/24 21:29 Nortriptyline Hcl 25 Mg Capsule PO 50 mg QHS [facility] Administration Ondansetron HCl 4 mg 03/09/24 18:43 03/10/24 20:31 Ondansetron Inj 4 Mg/2 Ml Vial IV PUSH 4 mg Q4H PRN Administration Nausea Pantoprazole Sodium 40 mg 03/10/24 09:00 03/10/24 08:14 Pantoprazole 40 Mg Tablet PO 40 mg QAM [facility] Administration Pantoprazole Sodium 40 mg 03/11/24 09:00 03/11/24 10:37 Pantoprazole Sodium Iv 40 Mg Vial IV PUSH 40 mg QAM [facility] Administration Torsemide 100 mg 03/11/24 17:00 03/11/24 17:35 Torsemide 20 Mg Tablet PO 100 mg BID [facility] Administration Vancomycin HCl 1 each 03/11/24 10:21 Vancomycin For Peritoneal Dialysis IVPB PRN PRN Vancomycin Protocol Labs Labs: Laboratory Results - last 24 hr 03/10/24 03/11/24 03/11/24 09:41 06:25 12:23 WBC RBC Hgb Hct MCV MCH MCHC RDW Plt Count MPV Immature Gran % (Auto) Neut % (Auto) Lymph % (Auto) [place] % (Auto) Eos % (Auto) Baso % (Auto) Lymph # (Auto) [place] # (Auto) Eos # (Auto) Baso # (Auto) Abs Immat Gran (auto) Absolute Neuts (auto) Absolute Nucleated RBC Nucleated RBC % Puncture Site Left radial Right radial ABG pH 7.308 L 7.282 L* ABG pCO2 50.5 H 60.1 H ABG pO2 64.8 L 65.5 L ABG PO2/FiO2 Ratio 1.62 1.64 ABG HCO3 24.7 27.7 H ABG O2 Saturation 90.6 L 89.9 L ABG O2 Content 14.1 L 14.0 L ABG Base Excess -1.9 0.2 A-a Gradient 162.3 150.6 Oxyhemoglobin 90.0 90.9 Carboxyhemoglobin Methemoglobin Reduced Hemoglobin Total Hemoglobin 11.1 L 10.9 L O2 Delivery Device Bipap Bipap O2 Liters/Min Not Reportable Not Reportable Vent Rate FiO2 40 40 Expiratory Pressure 8 8 Inspiratory Pressure 14 14 Sodium Potassium Chloride Carbon Dioxide Anion Gap BUN Creatinine Estim Creat Clear Calc Estimated GFR Glucose POC Capillary Glucose Lactic Acid Calcium Phosphorus Magnesium Iron Ferritin Total Bilirubin AST ALT Alkaline Phosphatase Total Protein 5.4 L Albumin Nasal MRSA (PCR) Random Vancomycin 03/11/24 03/11/24 03/12/24 14:49 17:05 00:31 WBC RBC Hgb Hct MCV MCH MCHC RDW Plt Count MPV Immature Gran % (Auto) Neut % (Auto) Lymph % (Auto) [place] % (Auto) Eos % (Auto) Baso % (Auto) Lymph # (Auto) [place] # (Auto) Eos # (Auto) Baso # (Auto) Abs Immat Gran (auto) Absolute Neuts (auto) Absolute Nucleated RBC Nucleated RBC % Puncture Site Right radial ABG pH 7.304 L ABG pCO2 49.9 H ABG pO2 79.6 L ABG PO2/FiO2 Ratio 1.99 ABG HCO3 24.2 ABG O2 Saturation 94.5 L ABG O2 Content 15.4 L ABG Base Excess -2.4 A-a Gradient 148.2 Oxyhemoglobin 94.7 Carboxyhemoglobin Methemoglobin Reduced Hemoglobin Total Hemoglobin 11.5 L O2 Delivery Device Bipap O2 Liters/Min Not Reportable Vent Rate FiO2 40 Expiratory Pressure 8 Inspiratory Pressure 18 Sodium Potassium Chloride Carbon Dioxide Anion Gap BUN Creatinine Estim Creat Clear Calc Estimated GFR Glucose POC Capillary Glucose 336 H Lactic Acid Calcium Phosphorus Magnesium Iron Ferritin Total Bilirubin AST ALT Alkaline Phosphatase Total Protein Albumin Nasal MRSA (PCR) Not detected Random Vancomycin 03/12/24 03/12/24 05:00 06:27 WBC 12.7 H RBC 3.70 L Hgb 11.9 L Hct 37.2 L MCV 100.5 H MCH 32.2 MCHC 32.0 RDW 13.0 Plt Count 401 H MPV 9.4 Immature Gran % (Auto) 1.3 H Neut % (Auto) 84.3 H Lymph % (Auto) 8.0 L [place] % (Auto) 6.1 Eos % (Auto) 0.0 Baso % (Auto) 0.3 Lymph # (Auto) 1.01 [place] # (Auto) 0.8 H Eos # (Auto) 0.0 Baso # (Auto) 0.0 Abs Immat Gran (auto) 0.16 H Absolute Neuts (auto) 10.7 H Absolute Nucleated RBC 0.100 H Nucleated RBC % 0.8 H Puncture Site Right radial ABG pH 7.326 L ABG pCO2 46.6 H ABG pO2 82.4 ABG PO2/FiO2 Ratio 2.06 ABG HCO3 23.8 ABG O2 Saturation 95.3 ABG O2 Content 17.1 ABG Base Excess -2.4 A-a Gradient 149.2 Oxyhemoglobin 95.4 Carboxyhemoglobin 0.5 Methemoglobin 0.0 Reduced Hemoglobin 4.1 Total Hemoglobin 12.7 O2 Delivery Device Non-invasive vent O2 Liters/Min Not Reportable Vent Rate 20 FiO2 40 Expiratory Pressure 8 Inspiratory Pressure 18 Sodium 140 Potassium 3.1 L Chloride 97 L Carbon Dioxide 26 Anion Gap 17 H BUN 45 H Creatinine 12.46 H Estim Creat Clear Calc 8 Estimated GFR 4 L Glucose 251 H POC Capillary Glucose Lactic Acid 1.7 Calcium 10.1 Phosphorus 4.2 Magnesium 2.0 Iron 72 Ferritin 1420.00 H Total Bilirubin 0.6 AST 18 ALT 16 Alkaline Phosphatase 129 H Total Protein 8.0 Albumin 4.3 Nasal MRSA (PCR) Random Vancomycin 21.3 H
[2024-03-12] MEDS: cefTRIAXone 2 GM/NS 100 ML 2 GM/100 ML BAG IVPB (09:36)
[2024-03-12] MEDS: PANTOPRAZOLE SODIUM IV 40 MG VIAL IV PUSH (09:39)
[2024-03-12] MEDS: ESCITALOPRAM OXALATE 10 MG TABLET PO (09:42)
[2024-03-12] MEDS: CALCIUM ACETATE 667 MG TABLET 2668 MG PO ×3 (09:42→17:07)
[2024-03-12] MEDS: busPIRone HCL 10 MG TABLET BY MOUTH ×3 (09:42→17:08)
[2024-03-12] MEDS: IRON PO ×3 (09:43→17:11)
[2024-03-12] MEDS: FERRIC CITRATE 210 MG PO ×3 (09:43→17:11)
[2024-03-12] MEDS: CINACALCET 30 MG TABLET 90 MG PO ×2 (09:49→09:51)
[2024-03-12] MEDS: POTASSIUM CHLORIDE 20 MEQ ER TABLET 40 MEQ PO (11:24)
[2024-03-12 12:16] LABS: Glucose Point of Care 268 mg/dl (65-105)
--- NOTE | 2024-03-12 12:45 | WPDINTPN ---
Progress Note: A&P Assessment and Plan (1) Acute hypercapnic respiratory failure: Code(s): J96.02 - Acute respiratory failure with hypercapnia Status: Acute Assessment and Plan: Acute hypercapnic respiratory failure likely related to volume overload, pneumonia, questionable COPD S patient has a history of tobacco use and currently smokes marijuana -03/11: Transferred from medical floor to ICU for hypoxic and hypercapnic respiratory failure, wheezing, volume overload, possible pneumonia -03/09: Influenza A positive -started patient on ceftriaxone and vancomycin -discussed with pharmacy will give 1 dose of Tamiflu 30 mg x 1 since he has a peritoneal dialysis patient --currently afebrile -tolerated high-flow therapy through the day and BiPAP overnight, will continue the same for today and tonight (2) End-stage renal disease on peritoneal dialysis: Code(s): N18.6 - End stage renal disease; Z99.2 - Dependence on renal dialysis Status: Acute Assessment and Plan: End-stage renal disease on peritoneal dialysis -nephrology follow -PD schedule per legal stenographer -patient also is on torsemide, metolazone at home, will continue -good fluid removal with peritoneal dialysis, wrinkling of the lower extremities noted, -patient on fluid restriction per legal stenographer (3) Fluid overload: Qualifiers: Hypervolemia type: unspecified Qualified Code(s): E87.70 - Fluid overload, unspecified Code(s): E87.70 - Fluid overload, unspecified Status: Acute Assessment and Plan: Likely related to incomplete peritoneal dialysis at home -continue PD per legal stenographer (4) HTN (hypertension): Code(s): I10 - Essential (primary) hypertension Status: Chronic Assessment and Plan: Essential hypertension, hold amlodipine, labetalol and blood pressures are within normal limits for now -will add p.r.n. hydralazine (5) Polyneuropathy: Code(s): G62.9 - Polyneuropathy, unspecified Status: Acute Assessment and Plan: Will discontinue gabapentin since patient has been having tremor-like/asterixis movements -continue nortriptyline (6) Influenza A: Code(s): J10.1 - Influenza due to other identified influenza virus with other respiratory manifestations Status: Acute Assessment and Plan: Tamiflu 30 mg x1 dose, discussed with pharmacy since he is a peritoneal dialysis patient Plan DVT prophylaxis: Heparin SQ Stress ulcer prophylaxis: Protonix Nutrition: NPO for now except sips with meds Code Status: Full code Critical Care Time Spent: 33 minutes Discussed with family and patient in the room and updated them with patient's condition and plan of care. I answered all the questions Due to a high probability of clinically significant, life threatening deterioration, the patient required my highest level of preparedness to intervene emergently and I personally spent this critical care time directly and personally managing the patient. This critical care time included obtaining a history; examining the patient; pulse oximetry; ordering and review of studies; arranging urgent treatment with development of a management plan; evaluation of patient's response to treatment; frequent reassessment; and discussions with other providers. It was exclusive of separately billable procedures and treating other patients and teaching time. Please see Assessment and Plan section and the rest of the note for further information on patient assessment and treatment This dictation may have been done utilizing a voice recognition system. Attempts have been made to correct errors. However, there may be uncorrected grammatical, spelling, and recognitions errors present. Subjective Date/time seen: 03/12/24 12:45 Interval history: Reason for consult: Acute respiratory failure, pneumonia, influenza A, end-stage renal disease on peritoneal dialysis 03/12/2024: Patient seen and examined the ICU, is is awake, alert, answers to questions appropriately and follows simple commands states he feels much better, ABGs have improved, PE 7.32, pCO2 of 46, PO2 of 82, bicarb of 23, 95% O2 sats. Patient tolerated high-flow therapy during the day yesterday and was on BiPAP overnight. Received peritoneal dialysis overnight. Patient is afebrile, hemodynamically stable Review of Systems Review of Systems: All systems reviewed & are unremarkable except as noted in HPI and below Exam Narrative: General: Patient appears older than his stated age, currently in no acute distress HEENT:? Pupils equal and reactive, sclerae is clear, BiPAP mask in place Respiratory:? Better air entry in all lung zones, no wheezing, coarse breath sounds at bases, adequate air entry Cardiac:? S1-S2 is normal, slight tachycardia with heart rates in the 100-110 Abdomen:? Soft, nontender, protuberant, decreased bowel sounds, peritoneal dialysis catheter in place, area surrounding is clean, dry and intact Extremities:? Bilateral upper and lower extremity edema much improved, lower extremity wrinkling of the skin is noted, palpable pedal pulses, Neuro:? Patient is awake, alert, able to answer questions and follows simple commands in all extremities Skin:? Chronic venous stasis change Psych:? Normal mentation, flat affect Objective Data Vital Signs Vital Signs: Vital Signs - 24 hr 03/11/24 14:00 03/11/24 14:00 03/11/24 14:02 Temperature Pulse Rate 80 76 82 Respiratory Rate 20 21 H Blood Pressure 127/75 Pulse Oximetry 94 96 Oxygen Delivery BiPAP Oxygen Flow Rate Fraction of Inspired Oxygen 03/11/24 14:02 03/11/24 14:02 03/11/24 14:34 Temperature Pulse Rate 86 82 84 Respiratory Rate 21 H 21 H 22 H Blood Pressure Pulse Oximetry 96 Oxygen Delivery BiPAP Oxygen Flow Rate Fraction of Inspired Oxygen 40 03/11/24 14:44 03/11/24 16:00 03/11/24 16:00 Temperature 101 F H 98.8 F Pulse Rate 77 Respiratory Rate 19 Blood Pressure 129/80 Pulse Oximetry 93 95 Oxygen Delivery BiPAP Oxygen Flow Rate Fraction of Inspired Oxygen 03/11/24 16:00 03/11/24 17:15 03/11/24 17:50 Temperature Pulse Rate 76 75 84 Respiratory Rate 25 H 20 Blood Pressure Pulse Oximetry 97 97 Oxygen Delivery BiPAP High Flow Therapy with Na Oxygen Flow Rate 45 Fraction of Inspired Oxygen 42 03/11/24 18:00 03/11/24 18:00 03/11/24 18:04 Temperature 98.8 F Pulse Rate 81 94 77 Respiratory Rate 16 19 Blood Pressure 132/89 129/80 Pulse Oximetry 94 Oxygen Delivery Oxygen Flow Rate Fraction of Inspired Oxygen 03/11/24 20:00 03/11/24 20:00 03/11/24 21:29 Temperature Pulse Rate 79 89 Respiratory Rate Blood Pressure Pulse Oximetry 91 Oxygen Delivery High Flow Nasal Cannula Oxygen Flow Rate 45 Fraction of Inspired Oxygen 40 03/11/24 21:32 03/11/24 21:48 03/11/24 21:51 Temperature 97.0 F L Pulse Rate 90 89 90 Respiratory Rate 21 H 15 Blood Pressure 165/101 H Pulse Oximetry 99 Oxygen Delivery High Flow Therapy with Na Oxygen Flow Rate 45 Fraction of Inspired Oxygen 42 03/11/24 21:54 03/11/24 22:00 03/11/24 22:00 Temperature Pulse Rate 88 86 80 Respiratory Rate 21 H 20 Blood Pressure 126/66 Pulse Oximetry 96 Oxygen Delivery Oxygen Flow Rate Fraction of Inspired Oxygen 03/11/24 23:30 03/12/24 00:00 03/12/24 00:00 Temperature 97.8 F Pulse Rate 83 83 Respiratory Rate 28 H 21 H Blood Pressure 116/69 Pulse Oximetry 96 97 95 Oxygen Delivery BiPAP BiPAP Oxygen Flow Rate Fraction of Inspired Oxygen 40 03/12/24 00:00 03/12/24 02:00 03/12/24 02:26 Temperature Pulse Rate 80 81 80 Respiratory Rate 21 H 18 Blood Pressure 102/61 Pulse Oximetry 92 Oxygen Delivery Oxygen Flow Rate Fraction of Inspired Oxygen 03/12/24 02:34 03/12/24 02:35 03/12/24 04:00 Temperature Pulse Rate 84 83 Respiratory Rate 18 25 H Blood Pressure Pulse Oximetry 95 97 Oxygen Delivery BiPAP BiPAP Oxygen Flow Rate Fraction of Inspired Oxygen 40 03/12/24 04:00 03/12/24 04:00 03/12/24 05:30 Temperature 98.1 F Pulse Rate 80 80 Respiratory Rate 21 H 24 H Blood Pressure 111/81 Pulse Oximetry 95 96 Oxygen Delivery BiPAP Oxygen Flow Rate Fraction of Inspired Oxygen 03/12/24 06:00 03/12/24 06:00 03/12/24 08:00 Temperature 98.4 F Pulse Rate 91 91 85 Respiratory Rate 21 H 18 Blood Pressure 98/77 L 104/73 Pulse Oximetry 93 92 Oxygen Delivery Oxygen Flow Rate Fraction of Inspired Oxygen 03/12/24 08:00 03/12/24 08:00 03/12/24 08:53 Temperature Pulse Rate 86 94 90 Respiratory Rate 22 H 20 Blood Pressure Pulse Oximetry 94 Oxygen Delivery BiPAP Oxygen Flow Rate Fraction of Inspired Oxygen 40 03/12/24 08:55 03/12/24 09:01 03/12/24 09:08 Temperature 98.2 F Pulse Rate 90 90 92 Respiratory Rate 17 19 20 Blood Pressure 111/84 103/76 Pulse Oximetry 94 Oxygen Delivery Oxygen Flow Rate Fraction of Inspired Oxygen 45 03/12/24 09:09 03/12/24 10:00 03/12/24 10:00 Temperature Pulse Rate 95 95 Respiratory Rate 21 H Blood Pressure 114/86 Pulse Oximetry 93 86 L Oxygen Delivery High Flow Therapy with Na Oxygen Flow Rate 45 Fraction of Inspired Oxygen 42 03/12/24 10:20 03/12/24 11:01 03/12/24 12:00 Temperature Pulse Rate 94 93 Respiratory Rate 22 H 20 Blood Pressure 127/88 Pulse Oximetry 94 94 Oxygen Delivery High Flow Therapy with Na Oxygen Flow Rate 45 Fraction of Inspired Oxygen 45 40 03/12/24 12:00 Temperature 98.3 F Pulse Rate 96 Respiratory Rate 22 H Blood Pressure 124/61 Pulse Oximetry 92 Oxygen Delivery Oxygen Flow Rate Fraction of Inspired Oxygen Intake/Output Intake/Output: Intake & Output 03/09/24 03/10/24 03/11/24 03/12/24 23:59 23:59 23:59 23:59 Intake Total 1220 900 375 Output Total [id number] [id number] [facility] -[id number] Meds/Results Medications: Active Medications Generic Name Dose Route Start Last Admin Trade Name Freq PRN Reason Stop Dose Admin Acetaminophen 650 mg 03/09/24 18:43 03/11/24 14:44 Acetaminophen 325 Mg Tablet PO 650 mg Q4H PRN Administration Mild Pain (1-3) or Fever Albuterol/Ipratropium 3 ml 03/11/24 02:00 03/12/24 08:53 Ipratropium 0.5 Mg/Albuterol Sulfate 2.5 Mg Ampul.Neb 3 Ml INHALATION 3 ml Q6HRT CARIDAD Administration Albuterol/Ipratropium 3 ml 03/11/24 00:48 Ipratropium 0.5 Mg/Albuterol Sulfate 2.5 Mg Ampul.Neb 3 Ml INHALATION Q2HRT PRN Shortness Of Breath Or Wheezing Buspirone HCl 10 mg 03/10/24 09:00 03/12/24 09:42 Buspirone Hcl 10 Mg Tablet BY MOUTH 10 mg TID CARIDAD Administration Calcium Acetate 2,668 mg 03/10/24 08:00 03/12/24 09:42 Calcium Acetate 667 Mg Tablet PO 2,668 mg TIDWM CARIDAD Administration Calcium Carbonate 200 mg 03/09/24 23:10 Calcium Carbonate (Tums) 500 Mg (200 Mg Elemental) PO HS PRN Indigestion Cinacalcet 90 mg 03/10/24 09:00 03/12/24 09:51 Cinacalcet 30 Mg Tablet PO 90 mg DAILY CARIDAD Administration Dextrose 12.5 gm 03/12/24 11:41 Dextrose 50% 25 Gm/50 Ml Syringe IV PUSH PRN PRN Hypoglycemia Protocol Diphenoxylate HCl/Atropine 1 tablet 03/12/24 11:39 Diphenoxylate/Atropine (*Crx) 2.5 Mg Tablet PO QID PRN Diarrhea Escitalopram Oxalate 10 mg 03/10/24 09:00 03/12/24 09:42 Escitalopram Oxalate 10 Mg Tablet PO 10 mg DAILY CARIDAD Administration Gentamicin Sulfate 1 applic 03/09/24 21:00 03/12/24 01:57 Gentamicin Sulfate 0.1% Cr 15 Gm Tube TOPICAL Not Given QHS CARIDAD Glucagon 1 mg 03/12/24 11:41 Glucagon For Inj 1 Mg Vial IM PRN PRN Hypoglycemia Protocol Glucose 15 gm 03/12/24 11:41 Glucose Oral Gel 15 Gm Of Glucse In 37.5 Gm Tube PO PRN PRN Hypoglycemia Protocol Heparin Sodium (Porcine) 5,000 units 03/10/24 14:00 03/12/24 05:45 Heparin Sodium 5,000 Units/Ml Vial SUB-Q 5,000 units Q8HR CARIDAD Administration Hydralazine HCl 10 mg 03/11/24 11:03 03/11/24 21:31 Hydralazine Hcl 20 Mg/Ml Vial IV PUSH 10 mg Q4H PRN Administration Blood Pressure - High Ceftriaxone Sodium 2 gm in 100 mls @ 200 mls/hr 03/11/24 10:00 03/12/24 09:36 Rocephin 2 Gm/Ns 100 Ml IVPB 200 mls/hr DAILY CARIDAD Administration Dextrose 1,000 mls @ 100 mls/hr 03/12/24 11:41 Dextrose 5% 1,000 Ml IVPB PRN PRN Hypoglycemia Protocol Insulin Aspart 3 - 6 units 03/12/24 12:00 Insulin Aspart (*Bkc) 100 Units/Ml SUB-Q TIDWM CARIDAD Protocol Insulin Aspart 1 - 3 units 03/12/24 21:00 Insulin Aspart (*Bkc) 100 Units/Ml SUB-Q HS CARIDAD Protocol Labetalol HCl 100 mg 03/10/24 09:00 03/11/24 21:29 Labetalol Hcl 100 Mg Tablet PO 100 mg Q12HR CARIDAD Administration Melatonin 20 mg 03/10/24 21:00 03/10/24 20:33 Melatonin 5 Mg Tablet PO 20 mg QHS CARIDAD Administration Methylprednisolone Sodium Succinate 40 mg 03/11/24 12:00 03/12/24 05:45 Methylprednisolone Sod Succ 40 Mg Vial IV PUSH 40 mg Q6HR CARIDAD Administration Metolazone 5 mg 03/10/24 09:00 03/11/24 10:38 Metolazone 5 Mg Tablet PO 5 mg DAILY CARIDAD Administration *Home Med*Ferric 0 mg 03/10/24 08:00 03/12/24 09:43 Citrate [Auryxia] PO 04/09/24 07:59 210 mg 210 Mg Iron Tablet TIDWM CARIDAD Administration Nortriptyline HCl 50 mg 03/10/24 21:00 03/11/24 21:29 Nortriptyline Hcl 25 Mg Capsule PO 50 mg QHS CARIDAD Administration Ondansetron HCl 4 mg 03/09/24 18:43 03/10/24 20:31 Ondansetron Inj 4 Mg/2 Ml Vial IV PUSH 4 mg Q4H PRN Administration Nausea Pantoprazole Sodium 40 mg 03/10/24 09:00 03/10/24 08:14 Pantoprazole 40 Mg Tablet PO 40 mg QAM CARIDAD Administration Pantoprazole Sodium 40 mg 03/11/24 09:00 03/12/24 09:39 Pantoprazole Sodium Iv 40 Mg Vial IV PUSH 40 mg QAM CARIDAD Administration Torsemide 100 mg 03/11/24 17:00 03/11/24 17:35 Torsemide 20 Mg Tablet PO 100 mg BID CARIDAD Administration Vancomycin HCl 1 each 03/11/24 10:21 Vancomycin For Peritoneal Dialysis IVPB PRN PRN Vancomycin Protocol Radiology Results: ITS Impressions Chest X-Ray 03/12/24 11:06 IMPRESSION: No focal infiltrate or effusion. Labs Labs: Laboratory Results - last 24 hr 03/11/24 03/11/24 03/11/24 12:23 14:49 17:05 WBC RBC Hgb Hct MCV MCH MCHC RDW Plt Count MPV Immature Gran % (Auto) Neut % (Auto) Lymph % (Auto) [place] % (Auto) Eos % (Auto) Baso % (Auto) Lymph # (Auto) [place] # (Auto) Eos # (Auto) Baso # (Auto) Abs Immat Gran (auto) Absolute Neuts (auto) Absolute Nucleated RBC Nucleated RBC % Puncture Site Right radial Right radial ABG pH 7.282 L* 7.304 L ABG pCO2 60.1 H 49.9 H ABG pO2 65.5 L 79.6 L ABG PO2/FiO2 Ratio 1.64 1.99 ABG HCO3 27.7 H 24.2 ABG O2 Saturation 89.9 L 94.5 L ABG O2 Content 14.0 L 15.4 L ABG Base Excess 0.2 -2.4 A-a Gradient 150.6 148.2 Oxyhemoglobin 90.9 94.7 Carboxyhemoglobin Methemoglobin Reduced Hemoglobin Total Hemoglobin 10.9 L 11.5 L O2 Delivery Device Bipap Bipap O2 Liters/Min Not Reportable Not Reportable Vent Rate FiO2 40 40 Expiratory Pressure 8 8 Inspiratory Pressure 14 18 Sodium Potassium Chloride Carbon Dioxide Anion Gap BUN Creatinine Estim Creat Clear Calc Estimated GFR Glucose POC Capillary Glucose Lactic Acid Calcium Phosphorus Magnesium Iron Ferritin Total Bilirubin AST ALT Alkaline Phosphatase Total Protein Albumin Nasal MRSA (PCR) Not detected Random Vancomycin 03/12/24 03/12/24 03/12/24 00:31 05:00 06:27 WBC 12.7 H RBC 3.70 L Hgb 11.9 L Hct 37.2 L MCV 100.5 H MCH 32.2 MCHC 32.0 RDW 13.0 Plt Count 401 H MPV 9.4 Immature Gran % (Auto) 1.3 H Neut % (Auto) 84.3 H Lymph % (Auto) 8.0 L [place] % (Auto) 6.1 Eos % (Auto) 0.0 Baso % (Auto) 0.3 Lymph # (Auto) 1.01 [place] # (Auto) 0.8 H Eos # (Auto) 0.0 Baso # (Auto) 0.0 Abs Immat Gran (auto) 0.16 H Absolute Neuts (auto) 10.7 H Absolute Nucleated RBC 0.100 H Nucleated RBC % 0.8 H Puncture Site Right radial ABG pH 7.326 L ABG pCO2 46.6 H ABG pO2 82.4 ABG PO2/FiO2 Ratio 2.06 ABG HCO3 23.8 ABG O2 Saturation 95.3 ABG O2 Content 17.1 ABG Base Excess -2.4 A-a Gradient 149.2 Oxyhemoglobin 95.4 Carboxyhemoglobin 0.5 Methemoglobin 0.0 Reduced Hemoglobin 4.1 Total Hemoglobin 12.7 O2 Delivery Device Non-invasive vent O2 Liters/Min Not Reportable Vent Rate 20 FiO2 40 Expiratory Pressure 8 Inspiratory Pressure 18 Sodium 140 Potassium 3.1 L Chloride 97 L Carbon Dioxide 26 Anion Gap 17 H BUN 45 H Creatinine 12.46 H Estim Creat Clear Calc 8 Estimated GFR 4 L Glucose 251 H POC Capillary Glucose 336 H Lactic Acid 1.7 Calcium 10.1 Phosphorus 4.2 Magnesium 2.0 Iron 72 Ferritin 1420.00 H Total Bilirubin 0.6 AST 18 ALT 16 Alkaline Phosphatase 129 H Total Protein 8.0 Albumin 4.3 Nasal MRSA (PCR) Random Vancomycin 21.3 H 03/12/24 12:11 WBC RBC Hgb Hct MCV MCH MCHC RDW Plt Count MPV Immature Gran % (Auto) Neut % (Auto) Lymph % (Auto) [place] % (Auto) Eos % (Auto) Baso % (Auto) Lymph # (Auto) [place] # (Auto) Eos # (Auto) Baso # (Auto) Abs Immat Gran (auto) Absolute Neuts (auto) Absolute Nucleated RBC Nucleated RBC % Puncture Site ABG pH ABG pCO2 ABG pO2 ABG PO2/FiO2 Ratio ABG HCO3 ABG O2 Saturation ABG O2 Content ABG Base Excess A-a Gradient Oxyhemoglobin Carboxyhemoglobin Methemoglobin Reduced Hemoglobin Total Hemoglobin O2 Delivery Device O2 Liters/Min Vent Rate FiO2 Expiratory Pressure Inspiratory Pressure Sodium Potassium Chloride Carbon Dioxide Anion Gap BUN Creatinine Estim Creat Clear Calc Estimated GFR Glucose POC Capillary Glucose 268 H Lactic Acid Calcium Phosphorus Magnesium Iron Ferritin Total Bilirubin AST ALT Alkaline Phosphatase Total Protein Albumin Nasal MRSA (PCR) Random Vancomycin Quality VTE Prophylaxis VTE prophylaxis: pharmacologic ordered
[2024-03-12] MEDS: INSULIN ASPART (*BKC) 100 UNITS/ML SUB-Q ×3 (13:20→20:41)
--- NOTE | 2024-03-12 16:45 | P.PNIM_ITS ---
Progress Note: A&P Assessment and Plan (1) Acute hypercapnic respiratory failure: Code(s): J96.02 - Acute respiratory failure with hypercapnia Status: Acute Assessment and Plan: Acute hypercapnic respiratory failure likely related to volume overload, pneumonia, questionable COPD S patient has a history of tobacco use and currently smokes marijuana -03/11: Transferred from medical floor to ICU for hypoxic and hypercapnic respiratory failure, wheezing, volume overload, possible pneumonia -03/09: Influenza A positive -started patient on ceftriaxone and vancomycin -discussed with pharmacy will give 1 dose of Tamiflu 30 mg x 1 since he has a peritoneal dialysis patient --currently afebrile -tolerated high-flow therapy through the day and BiPAP overnight, will continue the same for today and tonight (2) End-stage renal disease on peritoneal dialysis: Code(s): N18.6 - End stage renal disease; Z99.2 - Dependence on renal dialysis Status: Acute Assessment and Plan: End-stage renal disease on peritoneal dialysis -nephrology follow -PD schedule per front services agent -patient also is on torsemide, metolazone at home, will continue -good fluid removal with peritoneal dialysis, wrinkling of the lower extremities noted, -patient on fluid restriction per front services agent (3) Fluid overload: Qualifiers: Hypervolemia type: unspecified Qualified Code(s): E87.70 - Fluid overload, unspecified Code(s): E87.70 - Fluid overload, unspecified Status: Acute Assessment and Plan: Likely related to incomplete peritoneal dialysis at home -continue PD per front services agent (4) HTN (hypertension): Code(s): I10 - Essential (primary) hypertension Status: Chronic Assessment and Plan: Essential hypertension, hold amlodipine, labetalol and blood pressures are within normal limits for now -will add p.r.n. hydralazine (5) Polyneuropathy: Code(s): G62.9 - Polyneuropathy, unspecified Status: Acute Assessment and Plan: Will discontinue gabapentin since patient has been having tremor-like/asterixis movements -continue nortriptyline (6) Influenza A: Code(s): J10.1 - Influenza due to other identified influenza virus with other respiratory manifestations Status: Acute Assessment and Plan: Tamiflu 30 mg x1 dose, discussed with pharmacy since he is a peritoneal dialysis patient Plan patient with history of ESRD on peritoneal dialysis went to respiratory failure possibly due to hypercapnic with volume overload pneumonia and underlying COPD, patient also found to influenza A, patient's symptoms are improved patient is seen by Nephrology and patient is getting adequate dialysis this has improved volume overload, patient was also treated with ceftriaxone and vancomycin possibly pneumonia, patient clinically symptoms improved and will be transferred out of ICU to IMU will continue to monitor. Subjective Date/time seen: 03/12/24 16:45 Interval history: patient with history of ESRD on peritoneal dialysis went to respiratory failure possibly due to hypercapnic with volume overload pneumonia and underlying COPD, patient also found to influenza A, patient's symptoms are improved patient is seen by Nephrology and patient is getting adequate dialysis this has improved volume overload, patient was also treated with ceftriaxone and vancomycin possibly pneumonia, patient clinically symptoms improved and will be transferred out of ICU to IMU will continue to monitor. Review of Systems Review of Systems: All systems reviewed & are unremarkable except as noted in HPI and below Exam Narrative: Patient is comfortable, NAD HEENT: eyes are clear and none icteric LUNGS:CTA HEART: RR S1S2 ABD: BS+, Soft and nontender Lower extremities: no edema SKIN: nonjaundiced Neuro: grossly intact. Objective Data Vital Signs Vital Signs: Vital Signs - 24 hr 03/11/24 17:15 03/11/24 17:50 03/11/24 18:00 Temperature Pulse Rate 75 84 81 Respiratory Rate 25 H 20 16 Blood Pressure 132/89 Pulse Oximetry 97 97 94 Oxygen Delivery BiPAP High Flow Therapy with Na Oxygen Flow Rate 45 Fraction of Inspired Oxygen 42 03/11/24 18:00 03/11/24 18:04 03/11/24 20:00 Temperature 37.1 C Pulse Rate 94 77 79 Respiratory Rate 19 Blood Pressure 129/80 Pulse Oximetry Oxygen Delivery Oxygen Flow Rate Fraction of Inspired Oxygen 03/11/24 20:00 03/11/24 21:29 03/11/24 21:32 Temperature 36.1 C L Pulse Rate 89 90 Respiratory Rate Blood Pressure 165/101 H Pulse Oximetry 91 Oxygen Delivery High Flow Nasal Cannula Oxygen Flow Rate 45 Fraction of Inspired Oxygen 40 03/11/24 21:48 03/11/24 21:51 03/11/24 21:54 Temperature Pulse Rate 89 90 88 Respiratory Rate 21 H 15 21 H Blood Pressure Pulse Oximetry 99 Oxygen Delivery High Flow Therapy with Na Oxygen Flow Rate 45 Fraction of Inspired Oxygen 42 03/11/24 22:00 03/11/24 22:00 03/11/24 23:30 Temperature Pulse Rate 86 80 83 Respiratory Rate 20 28 H Blood Pressure 126/66 Pulse Oximetry 96 96 Oxygen Delivery BiPAP Oxygen Flow Rate Fraction of Inspired Oxygen 03/12/24 00:00 03/12/24 00:00 03/12/24 00:00 Temperature 36.6 C Pulse Rate 83 80 Respiratory Rate 21 H Blood Pressure 116/69 Pulse Oximetry 97 95 Oxygen Delivery BiPAP Oxygen Flow Rate Fraction of Inspired Oxygen 40 03/12/24 02:00 03/12/24 02:26 03/12/24 02:34 Temperature Pulse Rate 81 80 84 Respiratory Rate 21 H 18 18 Blood Pressure 102/61 Pulse Oximetry 92 Oxygen Delivery Oxygen Flow Rate Fraction of Inspired Oxygen 03/12/24 02:35 03/12/24 04:00 03/12/24 04:00 Temperature 36.7 C Pulse Rate 83 80 Respiratory Rate 25 H 21 H Blood Pressure 111/81 Pulse Oximetry 95 97 95 Oxygen Delivery BiPAP BiPAP Oxygen Flow Rate Fraction of Inspired Oxygen 40 03/12/24 04:00 03/12/24 05:30 03/12/24 06:00 Temperature Pulse Rate 80 91 Respiratory Rate 24 H 21 H Blood Pressure 98/77 L Pulse Oximetry 96 93 Oxygen Delivery BiPAP Oxygen Flow Rate Fraction of Inspired Oxygen 03/12/24 06:00 03/12/24 08:00 03/12/24 08:00 Temperature 36.9 C Pulse Rate 91 85 86 Respiratory Rate 18 Blood Pressure 104/73 Pulse Oximetry 92 Oxygen Delivery Oxygen Flow Rate Fraction of Inspired Oxygen 03/12/24 08:00 03/12/24 08:53 03/12/24 08:55 Temperature 36.8 C Pulse Rate 94 90 90 Respiratory Rate 22 H 20 17 Blood Pressure 111/84 Pulse Oximetry 94 Oxygen Delivery BiPAP Oxygen Flow Rate Fraction of Inspired Oxygen 40 45 03/12/24 09:00 03/12/24 09:01 03/12/24 09:08 Temperature Pulse Rate 98 90 92 Respiratory Rate 19 20 Blood Pressure 103/76 Pulse Oximetry 94 Oxygen Delivery Oxygen Flow Rate Fraction of Inspired Oxygen 03/12/24 09:09 03/12/24 10:00 03/12/24 10:00 Temperature Pulse Rate 95 95 Respiratory Rate 21 H Blood Pressure 114/86 Pulse Oximetry 93 86 L Oxygen Delivery High Flow Therapy with Na Oxygen Flow Rate 45 Fraction of Inspired Oxygen 42 03/12/24 10:20 03/12/24 11:01 03/12/24 12:00 Temperature Pulse Rate 94 93 Respiratory Rate 22 H 20 Blood Pressure 127/88 Pulse Oximetry 94 94 Oxygen Delivery High Flow Therapy with Na Oxygen Flow Rate 45 Fraction of Inspired Oxygen 45 40 03/12/24 12:00 03/12/24 12:00 03/12/24 14:00 Temperature 36.8 C Pulse Rate 96 98 93 Respiratory Rate 22 H Blood Pressure 124/61 Pulse Oximetry 92 Oxygen Delivery Oxygen Flow Rate Fraction of Inspired Oxygen 03/12/24 14:00 03/12/24 14:24 03/12/24 14:29 Temperature Pulse Rate 96 97 Respiratory Rate 19 20 Blood Pressure 124/99 H Pulse Oximetry 92 92 Oxygen Delivery High Flow Therapy with Na Oxygen Flow Rate 45 Fraction of Inspired Oxygen 41 Intake/Output Intake/Output: Intake & Output 03/09/24 03/10/24 03/11/24 03/12/24 23:59 23:59 23:59 23:59 Intake Total 1220 900 735 Output Total 5472 4044 1993 [facility] -[phone] Meds/Results Medications: Active Medications Generic Name Dose Route Start Last Admin Trade Name Freq PRN Reason Stop Dose Admin Acetaminophen 650 mg 03/09/24 18:43 03/11/24 14:44 Acetaminophen 325 Mg Tablet PO 650 mg Q4H PRN Administration Mild Pain (1-3) or Fever Albuterol/Ipratropium 3 ml 03/11/24 02:00 03/12/24 14:24 Ipratropium 0.5 Mg/Albuterol Sulfate 2.5 Mg Ampul.Neb 3 Ml INHALATION 3 ml Q6HRT CARIDAD Administration Albuterol/Ipratropium 3 ml 03/11/24 00:48 Ipratropium 0.5 Mg/Albuterol Sulfate 2.5 Mg Ampul.Neb 3 Ml INHALATION Q2HRT PRN Shortness Of Breath Or Wheezing Buspirone HCl 10 mg 03/10/24 09:00 03/12/24 13:21 Buspirone Hcl 10 Mg Tablet BY MOUTH 10 mg TID CARIDAD Administration Calcium Acetate 2,668 mg 03/10/24 08:00 03/12/24 14:31 Calcium Acetate 667 Mg Tablet PO 2,668 mg TIDWM CARIDAD Administration Calcium Carbonate 200 mg 03/09/24 23:10 Calcium Carbonate (Tums) 500 Mg (200 Mg Elemental) PO HS PRN Indigestion Cinacalcet 90 mg 03/10/24 09:00 03/12/24 09:51 Cinacalcet 30 Mg Tablet PO 90 mg DAILY CARIDAD Administration Dextrose 12.5 gm 03/12/24 11:41 Dextrose 50% 25 Gm/50 Ml Syringe IV PUSH PRN PRN Hypoglycemia Protocol Diphenoxylate HCl/Atropine 1 tablet 03/12/24 11:39 Diphenoxylate/Atropine (*Crx) 2.5 Mg Tablet PO QID PRN Diarrhea Escitalopram Oxalate 10 mg 03/10/24 09:00 03/12/24 09:42 Escitalopram Oxalate 10 Mg Tablet PO 10 mg DAILY CARIDAD Administration Gentamicin Sulfate 1 applic 03/09/24 21:00 03/12/24 01:57 Gentamicin Sulfate 0.1% Cr 15 Gm Tube TOPICAL Not Given QHS CARIDAD Glucagon 1 mg 03/12/24 11:41 Glucagon For Inj 1 Mg Vial IM PRN PRN Hypoglycemia Protocol Glucose 15 gm 03/12/24 11:41 Glucose Oral Gel 15 Gm Of Glucse In 37.5 Gm Tube PO PRN PRN Hypoglycemia Protocol Heparin Sodium (Porcine) 5,000 units 03/10/24 14:00 03/12/24 14:31 Heparin Sodium 5,000 Units/Ml Vial SUB-Q 5,000 units Q8HR CARIDAD Administration Hydralazine HCl 10 mg 03/11/24 11:03 03/11/24 21:31 Hydralazine Hcl 20 Mg/Ml Vial IV PUSH 10 mg Q4H PRN Administration Blood Pressure - High Ceftriaxone Sodium 2 gm in 100 mls @ 200 mls/hr 03/11/24 10:00 03/12/24 09:36 Rocephin 2 Gm/Ns 100 Ml IVPB 200 mls/hr DAILY CARIDAD Administration Dextrose 1,000 mls @ 100 mls/hr 03/12/24 11:41 Dextrose 5% 1,000 Ml IVPB PRN PRN Hypoglycemia Protocol Insulin Aspart 3 - 6 units 03/12/24 12:00 03/12/24 13:20 Insulin Aspart (*Bkc) 100 Units/Ml SUB-Q 4 units TIDWM CARIDAD Administration Protocol Insulin Aspart 1 - 3 units 03/12/24 21:00 Insulin Aspart (*Bkc) 100 Units/Ml SUB-Q HS [facility] Protocol Labetalol HCl 100 mg 03/10/24 09:00 03/12/24 09:00 Labetalol Hcl 100 Mg Tablet PO Not Given Q12HR CARIDAD Melatonin 20 mg 03/10/24 21:00 03/10/24 20:33 Melatonin 5 Mg Tablet PO 20 mg QHS CARIDAD Administration Methylprednisolone Sodium Succinate 40 mg 03/11/24 12:00 03/12/24 13:20 Methylprednisolone Sod Succ 40 Mg Vial IV PUSH 40 mg Q6HR CARIDAD Administration Metolazone 5 mg 03/10/24 09:00 03/12/24 09:00 Metolazone 5 Mg Tablet PO Not Given DAILY [facility] *Home Med*Ferric 0 mg 03/10/24 08:00 03/12/24 13:22 Citrate [Auryxia] PO 04/09/24 07:59 210 mg 210 Mg Iron Tablet TIDWM CARIDAD Administration Nortriptyline HCl 50 mg 03/10/24 21:00 03/11/24 21:29 Nortriptyline Hcl 25 Mg Capsule PO 50 mg QHS CARIDAD Administration Ondansetron HCl 4 mg 03/09/24 18:43 03/10/24 20:31 Ondansetron Inj 4 Mg/2 Ml Vial IV PUSH 4 mg Q4H PRN Administration Nausea Pantoprazole Sodium 40 mg 03/10/24 09:00 03/10/24 08:14 Pantoprazole 40 Mg Tablet PO 40 mg QAM CARIDAD Administration Pantoprazole Sodium 40 mg 03/11/24 09:00 03/12/24 09:39 Pantoprazole Sodium Iv 40 Mg Vial IV PUSH 40 mg QAM CARIDAD Administration Torsemide 100 mg 03/11/24 17:00 03/12/24 09:00 Torsemide 20 Mg Tablet PO Not Given BID CARIDAD Vancomycin HCl 1 each 03/11/24 10:21 Vancomycin For Peritoneal Dialysis IVPB PRN PRN Vancomycin Protocol Radiology Results: ITS Impressions Chest X-Ray 03/12/24 11:06 IMPRESSION: No focal infiltrate or effusion. Labs Labs: Laboratory Results - last 24 hr 03/11/24 03/11/24 03/12/24 14:49 17:05 00:31 WBC RBC Hgb Hct MCV MCH MCHC RDW Plt Count MPV Immature Gran % (Auto) Neut % (Auto) Lymph % (Auto) [place] % (Auto) Eos % (Auto) Baso % (Auto) Lymph # (Auto) [place] # (Auto) Eos # (Auto) Baso # (Auto) Abs Immat Gran (auto) Absolute Neuts (auto) Absolute Nucleated RBC Nucleated RBC % Puncture Site Right radial ABG pH 7.304 L ABG pCO2 49.9 H ABG pO2 79.6 L ABG PO2/FiO2 Ratio 1.99 ABG HCO3 24.2 ABG O2 Saturation 94.5 L ABG O2 Content 15.4 L ABG Base Excess -2.4 A-a Gradient 148.2 Oxyhemoglobin 94.7 Carboxyhemoglobin Methemoglobin Reduced Hemoglobin Total Hemoglobin 11.5 L O2 Delivery Device Bipap O2 Liters/Min Not Reportable Vent Rate FiO2 40 Expiratory Pressure 8 Inspiratory Pressure 18 Sodium Potassium Chloride Carbon Dioxide Anion Gap BUN Creatinine Estim Creat Clear Calc Estimated GFR Glucose POC Capillary Glucose 336 H Lactic Acid Calcium Phosphorus Magnesium Iron Ferritin Total Bilirubin AST ALT Alkaline Phosphatase Total Protein Albumin Nasal MRSA (PCR) Not detected Random Vancomycin 03/12/24 03/12/24 03/12/24 05:00 06:27 12:11 WBC 12.7 H RBC 3.70 L Hgb 11.9 L Hct 37.2 L MCV 100.5 H MCH 32.2 MCHC 32.0 RDW 13.0 Plt Count 401 H MPV 9.4 Immature Gran % (Auto) 1.3 H Neut % (Auto) 84.3 H Lymph % (Auto) 8.0 L [place] % (Auto) 6.1 Eos % (Auto) 0.0 Baso % (Auto) 0.3 Lymph # (Auto) 1.01 [place] # (Auto) 0.8 H Eos # (Auto) 0.0 Baso # (Auto) 0.0 Abs Immat Gran (auto) 0.16 H Absolute Neuts (auto) 10.7 H Absolute Nucleated RBC 0.100 H Nucleated RBC % 0.8 H Puncture Site Right radial ABG pH 7.326 L ABG pCO2 46.6 H ABG pO2 82.4 ABG PO2/FiO2 Ratio 2.06 ABG HCO3 23.8 ABG O2 Saturation 95.3 ABG O2 Content 17.1 ABG Base Excess -2.4 A-a Gradient 149.2 Oxyhemoglobin 95.4 Carboxyhemoglobin 0.5 Methemoglobin 0.0 Reduced Hemoglobin 4.1 Total Hemoglobin 12.7 O2 Delivery Device Non-invasive vent O2 Liters/Min Not Reportable Vent Rate 20 FiO2 40 Expiratory Pressure 8 Inspiratory Pressure 18 Sodium 140 Potassium 3.1 L Chloride 97 L Carbon Dioxide 26 Anion Gap 17 H BUN 45 H Creatinine 12.46 H Estim Creat Clear Calc 8 Estimated GFR 4 L Glucose 251 H POC Capillary Glucose 268 H Lactic Acid 1.7 Calcium 10.1 Phosphorus 4.2 Magnesium 2.0 Iron 72 Ferritin 1420.00 H Total Bilirubin 0.6 AST 18 ALT 16 Alkaline Phosphatase 129 H Total Protein 8.0 Albumin 4.3 Nasal MRSA (PCR) Random Vancomycin 21.3 H Quality VTE Prophylaxis VTE prophylaxis: pharmacologic ordered
[2024-03-12 17:23] LABS: Glucose Point of Care 244 mg/dl (65-105)
[2024-03-12] MEDS: GENTAMICIN SULFATE 0.1% CR 15 GM TUBE 1 APPLIC TOPICAL (20:36)
[2024-03-12 20:38] LABS: Glucose Point of Care 317 mg/dl (65-105)
[2024-03-12] MEDS: NORTRIPTYLINE HCL 25 MG CAPSULE 50 MG PO (20:38)
[2024-03-13] VITALS (25 sets, daily range): BP systolic 93–138; BP diastolic 64–105; PULSE 97–971; RESP 17–28; TEMP 36.6–36.8; O2SAT 89–98
[2024-03-13] MEDS: IPRATROPIUM 0.5 MG/ALBUTEROL SULFATE 2.5 MG AMPUL.NEB 3 ML INHALATION ×4 (02:36→20:34)
[2024-03-13 04:53] LABS: Alanine Aminotransferase 24 U/L (6-50); Albumin Level 4.7 g/dL (3.5-5.1); Alkaline Phosphatase 161 U/L (38-126); Anion Gap 26 mmol/L (4-12); Aspartate Amino Transferase 20 U/L (17-59); Bilirubin,Total 0.6 mg/dL (0.2-1.3); Blood Urea Nitrogen 48 mg/dL (9-20); Calcium 11.1 mg/dL (8.4-10.2); Carbon Dioxide 20 mmol/L (22-30); Chloride 98 mmol/L (98-107); Estimated CRCL calculation 8 ml/min; Estimated Glomerular Filt Rate 4; Glucose 323 mg/dL (65-110); Magnesium 2.3 mg/dL (1.6-2.3); Phosphorus 5.2 mg/dL (2.5-4.5); Potassium 3.2 mmol/L (3.4-5.0); Sodium 144 mmol/L (137-145)
[2024-03-13 04:55] LABS: Lactic Acid Reflex 2.5 mmol/L (0.7-2.0)
[2024-03-13] MEDS: HEPARIN SODIUM 5,000 UNITS/ML VIAL 5000 UNITS SUB-Q ×3 (05:24→21:14)
[2024-03-13] MEDS: methylPREDNISolone SOD SUCC 40 MG VIAL IV PUSH ×4 (05:26→23:21)
[2024-03-13 05:39] LABS: Alveolar/Arterial O2 Gradient 156.8 mmHg; Base Excess ABG -4.6 mEq/l (+/-2.0); Carboxyhemoglobin 0.7 % THb (0-2.0); Fractional Inspired Oxygen 40 %; Oxygen Content ABG 21.6 %vol (16.0-22.0); Oxygen Saturation ABG 96.3 % (95.0-100.0); Oxyhemoglobin 96.1 % THb (90.0-100.0); PCO2 ABG 36.2 mmHg (35.0-45.0); PO2 ABG 86.8 mmHg (80.0-100.0); PO2 FiO2 Ratio Arterial Blood 2.17 %; Reduced Hemoglobin 3.2 %THb (0-5.0); pH ABG 7.361 (7.350-7.450)
[2024-03-13 05:41] LABS: Device NON-INVASIVE VENT; Modified Allen's Test Pass; Non-Invasive Vent Rate 20 /MIN; Site Drawn RIGHT RADIAL
[2024-03-13 05:42] LABS: Non-Invasive Expiratory Pressure 8 CMH2O; Non-Invasive Inspiratory Pressure 18 CMH2O
[2024-03-13 07:31] LABS: Reflex Lactic Acid Yes or No Add Lactic
[2024-03-13 07:48] LABS: Basophils Absolute Auto 0.1 K/mm3 (0.0-0.1); Basophils Percent Auto 0.3 % (0.2-1.2); Hemoglobin 15.2 g/dL (14.0-18.0); Immature Granulocyte Absolute 0.26 K/mm3 (0.00-0.031); Lymphocytes Absolute Auto 1.94 K/mm3 (0.9-3.2); Lymphocytes Percent Auto 7.1 % (18.3-44.2); Mean Corpuscular HGB Conc 31.7 g/dl (32-36); Mean Corpuscular Hemoglobin 31.8 pg (26-34); Mean Corpuscular Volume 100.4 fl (80-100); Mean Platelet Volume 9.7 fl (7.4-10.4); Monocytes Absolute Auto 2.2 K/mm3 (0.1-0.6); Monocytes Percent Auto 7.9 % (2.6-8.5); Neutrophils Absolute Auto 22.8 K/mm3 (1.3-6.7); Neutrophils Percent Auto 83.7 % (45.5-73.1); Nucleated Red Blood Cells Perc 1.8 % (0.0-0.2); Platelet Count Result 554 k/mm3 (150-375); Red Blood Count 4.78 M/mm3 (4.6-6.20); Red Cell Distribution Width 13.4 % (11.5-14.5); White Blood Count 27.2 K/mm3 (4.5-10.0)
[2024-03-13 07:59] LABS: Lactic Acid 2.7 mmol/L (0.7-2.0)
[2024-03-13] MEDS: busPIRone HCL 10 MG TABLET BY MOUTH ×3 (08:26→16:59)
[2024-03-13] MEDS: CALCIUM ACETATE 667 MG TABLET 2668 MG PO ×3 (08:26→16:58)
[2024-03-13] MEDS: cefTRIAXone 2 GM/NS 100 ML 2 GM/100 ML BAG IVPB (08:26)
[2024-03-13] MEDS: CINACALCET 30 MG TABLET 90 MG PO (08:27)
[2024-03-13] MEDS: PANTOPRAZOLE SODIUM IV 40 MG VIAL IV PUSH (08:27)
[2024-03-13] MEDS: ESCITALOPRAM OXALATE 10 MG TABLET PO (08:27)
[2024-03-13] MEDS: IRON PO ×3 (08:28→16:59)
[2024-03-13] MEDS: FERRIC CITRATE 210 MG PO ×3 (08:28→16:59)
[2024-03-13] MEDS: INSULIN ASPART (*BKC) 100 UNITS/ML SUB-Q (08:29)
[2024-03-13 08:54] LABS: Glucose Point of Care 268 mg/dl (65-105)
[2024-03-13] MEDS: POTASSIUM CHLORIDE 20 MEQ ER TABLET 40 MEQ PO (09:12)
[2024-03-13 09:16] LABS: Vancomycin Random 17.7 ug/mL (10-20)
[2024-03-13] MEDS: ONDANSETRON INJ 4 MG/2 ML VIAL IV PUSH ×2 (11:03→18:29)
--- NOTE | 2024-03-13 11:37 | P.PNNP_ITS ---
Progress Note: A&P Assessment and Plan (1) End stage renal disease: Code(s): N18.6 - End stage renal disease Status: Chronic Assessment and Plan: * continue nightly CCPD * s/p 24 hour sessions of PD x 3 days with aggressive ultrafiltration/fluid removal * follow electrolytes, volume status, and clearance (2) Acute hypercapnic respiratory failure: Code(s): J96.02 - Acute respiratory failure with hypercapnia Status: Acute Assessment and Plan: * multifactorial etiology: * volume overload * pneumonia * influenza * questionable COPD * empiric antibiotics * follow cultures * high flow oxygen therapy during the day and BiPAP at night * follow respiratory status (3) Fluid overload: Qualifiers: Hypervolemia type: unspecified Qualified Code(s): E87.70 - Fluid overload, unspecified Code(s): E87.70 - Fluid overload, unspecified Status: Acute Assessment and Plan: * clinical improvement noted * as noted on presentation * s/p aggressive ultrafiltation/fluid removal with PD x 3 days (24 hour treatments) * almost 12L negative since admission * continue fluid and salt restriction (4) Influenza A: Code(s): J10.1 - Influenza due to other identified influenza virus with other respiratory manifestations Status: Acute Assessment and Plan: * positive testing noted * s/p Tamiflu 30 mg x 1 dose * respiratory isolation * supportive therapy (5) Hyponatremia: Code(s): E87.1 - Hypo-osmolality and hyponatremia Status: Acute Assessment and Plan: * resolved * related to ESRD and increased free water intake + volume overload * on fluid restriction and fluid removal with PD (6) HTN (hypertension): Code(s): I10 - Essential (primary) hypertension Status: Chronic Assessment and Plan: * despite known history, relative hypotension at this time * suspect low BP due to aggressive fluid removal/ultrafiltration with PD * BP medications with parameters * follow trend of hemodynamics Will continue to follow. L Subjective Date/time seen: 03/13/24 11:37 Interval history: Follow-up for end stage renal disease on peritoneal dialysis. Chart reviewed -- assuming care from Dr. Marcus; tolerated peritoneal dialysis overnight (CCPD supervised and seen at 11:25AM); still on supplemental oxygen therapy but reports feeling dehydrated and requesting easing up on fluid restriction; no other acute issues/complaints voiced on my visit. Exam 2 Narrative: General: male who appears older than stated age in NAD Heart: normal S1 and S2; no rub Lungs: coarse with a few wheezes Abdomen: soft, nontender, nondistended, positive bowel sounds Extremities: no cyanosis or clubbing; 1+ edema Skin: warm and dry Objective Data Vital Signs Vital Signs: Vital Signs Temp Pulse Resp BP Pulse Ox O2 Del Method O2 Flow Rate 03/13/24 11:00 97 24 H 98 High Flow Therapy with Na 45 03/13/24 10:39 94 High Flow Therapy with Na 35 03/13/24 10:00 101 H 03/13/24 08:37 97.9 F 100 23 H 101/82 03/13/24 08:24 101 H 20 03/13/24 08:14 103 H 20 03/13/24 08:14 95 High Flow Therapy with Na 35 03/13/24 08:00 97.9 F 100 23 H 101/82 96 03/13/24 08:00 100 03/13/24 08:00 99 24 H 96 High Flow Therapy with Na 45 03/13/24 06:00 102 H 03/13/24 05:40 105 H 22 H 96 BiPAP 03/13/24 04:00 98 21 H 93/64 L 89 L 03/13/24 04:00 98 03/13/24 04:00 93 BiPAP 03/13/24 02:49 103 H 23 H 03/13/24 02:37 100 23 H 95 BiPAP 03/13/24 02:37 102 H 25 H 03/13/24 02:00 102 H 03/13/24 00:00 97.8 F 103 H 17 110/93 H 94 03/13/24 00:00 103 H 03/12/24 23:43 94 BiPAP 03/12/24 22:50 92 High Flow Therapy with Na 35 03/12/24 22:11 03/12/24 22:00 103 H 03/12/24 21:39 03/12/24 20:45 129/91 H 03/12/24 20:30 102 H 20 03/12/24 20:20 91 High Flow Therapy with Na 45 03/12/24 20:20 110 H 20 03/12/24 20:00 104 H 03/12/24 20:00 93 High Flow Therapy with Na 45 03/12/24 20:00 98.0 F 104 H 21 H 93 03/12/24 19:00 105 H 14 126/102 H 93 03/12/24 18:14 108 H 22 H 125/98 H 92 03/12/24 18:00 105 H 23 H 141/107 H 88 L 03/12/24 18:00 103 H Intake/Output Intake/Output: Intake & Output 03/10/24 03/11/24 03/12/24 03/13/24 23:59 23:59 23:59 23:59 Intake Total 3451 506 1536 740 Output Total 5479 4044 6583 1163 [facility] -[phone] Meds/Results Medications: Active Medications Generic Name Dose Route Start Last Admin Trade Name Freq PRN Reason Stop Dose Admin Acetaminophen 650 mg 03/09/24 18:43 03/11/24 14:44 Acetaminophen 325 Mg Tablet PO 650 mg Q4H PRN Administration Mild Pain (1-3) or Fever Albuterol/Ipratropium 3 ml 03/11/24 02:00 03/13/24 14:05 Ipratropium 0.5 Mg/Albuterol Sulfate 2.5 Mg Ampul.Neb 3 Ml INHALATION 3 ml Q6HRT CARIDAD Administration Albuterol/Ipratropium 3 ml 03/11/24 00:48 Ipratropium 0.5 Mg/Albuterol Sulfate 2.5 Mg Ampul.Neb 3 Ml INHALATION Q2HRT PRN Shortness Of Breath Or Wheezing Azithromycin 500 mg 03/13/24 17:00 03/13/24 16:59 Azithromycin 250 Mg Tablet PO 03/17/24 17:01 500 mg DAILY@1700 CARIDAD Administration Buspirone HCl 10 mg 03/10/24 09:00 03/13/24 16:59 Buspirone Hcl 10 Mg Tablet BY MOUTH 10 mg TID CARIDAD Administration Calcium Acetate 2,668 mg 03/10/24 08:00 03/13/24 16:58 Calcium Acetate 667 Mg Tablet PO 2,668 mg TIDWM CARIDAD Administration Calcium Carbonate 200 mg 03/09/24 23:10 Calcium Carbonate (Tums) 500 Mg (200 Mg Elemental) PO HS PRN Indigestion Cinacalcet 90 mg 03/10/24 09:00 03/13/24 08:27 Cinacalcet 30 Mg Tablet PO 90 mg DAILY CARIDAD Administration Dextrose 12.5 gm 03/12/24 11:41 Dextrose 50% 25 Gm/50 Ml Syringe IV PUSH PRN PRN Hypoglycemia Protocol Diphenoxylate HCl/Atropine 1 tablet 03/12/24 11:39 Diphenoxylate/Atropine (*Crx) 2.5 Mg Tablet PO QID PRN Diarrhea Escitalopram Oxalate 10 mg 03/10/24 09:00 03/13/24 08:27 Escitalopram Oxalate 10 Mg Tablet PO 10 mg DAILY CARIDAD Administration Gentamicin Sulfate 1 applic 03/09/24 21:00 03/12/24 20:36 Gentamicin Sulfate 0.1% Cr 15 Gm Tube TOPICAL 1 applic QHS CARIDAD Administration Glucagon 1 mg 03/12/24 11:41 Glucagon For Inj 1 Mg Vial IM PRN PRN Hypoglycemia Protocol Glucose 15 gm 03/12/24 11:41 Glucose Oral Gel 15 Gm Of Glucse In 37.5 Gm Tube PO PRN PRN Hypoglycemia Protocol Heparin Sodium (Porcine) 5,000 units 03/10/24 14:00 03/13/24 13:31 Heparin Sodium 5,000 Units/Ml Vial SUB-Q 5,000 units Q8HR CARIDAD Administration Hydralazine HCl 10 mg 03/11/24 11:03 03/11/24 21:31 Hydralazine Hcl 20 Mg/Ml Vial IV PUSH 10 mg Q4H PRN Administration Blood Pressure - High Ceftriaxone Sodium 2 gm in 100 mls @ 200 mls/hr 03/11/24 10:00 03/13/24 08:26 Rocephin 2 Gm/Ns 100 Ml IVPB 03/17/24 09:29 200 mls/hr DAILY CARIDAD Administration Dextrose 1,000 mls @ 100 mls/hr 03/12/24 11:41 Dextrose 5% 1,000 Ml IVPB PRN PRN Hypoglycemia Protocol Insulin Aspart 3 - 6 units 03/12/24 12:00 03/13/24 17:07 Insulin Aspart (*Bkc) 100 Units/Ml SUB-Q Not Given TIDWM CARIDAD Protocol Insulin Aspart 1 - 3 units 03/12/24 21:00 03/12/24 20:41 Insulin Aspart (*Bkc) 100 Units/Ml SUB-Q 2 units HS CARIDAD Administration Protocol Labetalol HCl 100 mg 03/10/24 09:00 03/12/24 09:00 Labetalol Hcl 100 Mg Tablet PO Not Given Q12HR [facility] Melatonin 20 mg 03/10/24 21:00 03/10/24 20:33 Melatonin 5 Mg Tablet PO 20 mg QHS [facility] Administration Methylprednisolone Sodium Succinate 40 mg 03/11/24 12:00 03/13/24 16:59 Methylprednisolone Sod Succ 40 Mg Vial IV PUSH 40 mg Q6HR CARIDAD Administration Metolazone 5 mg 03/10/24 09:00 03/12/24 09:00 Metolazone 5 Mg Tablet PO Not Given DAILY [facility] *Home Med*Ferric 0 mg 03/10/24 08:00 03/13/24 16:59 Citrate [Auryxia] PO 04/09/24 07:59 840 mg 210 Mg Iron Tablet TIDWM [facility] Administration Nortriptyline HCl 50 mg 03/10/24 21:00 03/12/24 20:38 Nortriptyline Hcl 25 Mg Capsule PO 50 mg QHS CARIDAD Administration Ondansetron HCl 4 mg 03/09/24 18:43 03/13/24 11:03 Ondansetron Inj 4 Mg/2 Ml Vial IV PUSH 4 mg Q4H PRN Administration Nausea Pantoprazole Sodium 40 mg 03/10/24 09:00 03/10/24 08:14 Pantoprazole 40 Mg Tablet PO 40 mg QAM [facility] Administration Pantoprazole Sodium 40 mg 03/11/24 09:00 03/13/24 08:27 Pantoprazole Sodium Iv 40 Mg Vial IV PUSH 40 mg QAM CARIDAD Administration Torsemide 100 mg 03/11/24 17:00 03/12/24 09:00 Torsemide 20 Mg Tablet PO Not Given BID [facility] Radiology Results: ITS Impressions Chest X-Ray 03/13/24 05:51 Impression: Possible mild central pulmonary venous congestive change. Labs Labs: Laboratory Tests 03/13/24 07:40 03/13/24 04:14 Lactic Acid 2.5 H Calcium 11.1 H Phosphorus 5.2 H Magnesium 2.3 Total Bilirubin 0.6 AST 20 ALT 24 Alkaline Phosphatase 161 H Total Protein 9.0 H Albumin 4.7
[2024-03-13 11:39] LABS: Kappa\\Lambda Light Chains 1.32 (0.26-1.65)
[2024-03-13 12:07] LABS: Glucose Point of Care 196 mg/dl (65-105)
[2024-03-13] MEDS: VANCOMYCIN 1,250 MG/NS 250 ML 1,250 MG/250 ML BAG 166.67 MG IVPB (12:08)
--- NOTE | 2024-03-13 14:43 | WPDPN ---
Progress Note: A&P Assessment and Plan (1) Acute hypercapnic respiratory failure: Code(s): J96.02 - Acute respiratory failure with hypercapnia Status: Acute Assessment and Plan: Acute hypercapnic respiratory failure likely related to volume overload, pneumonia, questionable COPD S patient has a history of tobacco use and currently smokes marijuana -03/11: Transferred from medical floor to ICU for hypoxic and hypercapnic respiratory failure, wheezing, volume overload, possible pneumonia -03/09: Influenza A positive -started patient on ceftriaxone and vancomycin -discussed with pharmacy will give 1 dose of Tamiflu 30 mg x 1 since he has a peritoneal dialysis patient --currently afebrile -tolerated high-flow therapy through the day and BiPAP overnight, will continue the same for today and tonight (2) End-stage renal disease on peritoneal dialysis: Code(s): N18.6 - End stage renal disease; Z99.2 - Dependence on renal dialysis Status: Acute Assessment and Plan: End-stage renal disease on peritoneal dialysis -nephrology follow -PD schedule per buying intern -patient also is on torsemide, metolazone at home, will continue -good fluid removal with peritoneal dialysis, wrinkling of the lower extremities noted, -patient on fluid restriction per buying intern (3) Fluid overload: Qualifiers: Hypervolemia type: unspecified Qualified Code(s): E87.70 - Fluid overload, unspecified Code(s): E87.70 - Fluid overload, unspecified Status: Acute Assessment and Plan: Likely related to incomplete peritoneal dialysis at home -continue PD per buying intern (4) HTN (hypertension): Code(s): I10 - Essential (primary) hypertension Status: Chronic Assessment and Plan: Essential hypertension, hold amlodipine, labetalol and blood pressures are within normal limits for now -will add p.r.n. hydralazine (5) Polyneuropathy: Code(s): G62.9 - Polyneuropathy, unspecified Status: Acute Assessment and Plan: Will discontinue gabapentin since patient has been having tremor-like/asterixis movements -continue nortriptyline (6) Influenza A: Code(s): J10.1 - Influenza due to other identified influenza virus with other respiratory manifestations Status: Acute Assessment and Plan: Tamiflu 30 mg x1 dose, discussed with pharmacy since he is a peritoneal dialysis patient Plan patient with history of ESRD on peritoneal dialysis went to respiratory failure possibly due to hypercapnic with volume overload pneumonia and underlying COPD, patient also found to influenza A, patient's symptoms are improved patient is seen by Nephrology and patient is getting adequate dialysis this has improved volume overload, patient was also treated with ceftriaxone and vancomycin possibly pneumonia, patient clinically symptoms have improved and is transferred out of ICU to IMU, patient had a longer PD session and 4L was removed however patient has become hemoconcentrated as his WBC, Hgb, and plates are elevated as patient does not show any sign or symptoms of infection will continue to monitor. Subjective Date/time seen: 03/13/24 14:43 Interval history: patient with history of ESRD on peritoneal dialysis went to respiratory failure possibly due to hypercapnic with volume overload pneumonia and underlying COPD, patient also found to influenza A, patient's symptoms are improved patient is seen by Nephrology and patient is getting adequate dialysis this has improved volume overload, patient was also treated with ceftriaxone and vancomycin possibly pneumonia, patient clinically symptoms have improved and is transferred out of ICU to IMU, patient had a longer PD session and 4L was removed however patient has become hemoconcentrated as his WBC, Hgb, and plates are elevated as patient does not show any sign or symptoms of infection will continue to monitor. Review of Systems Review of Systems: sob, cough, swelling, B/L LE pain. All systems reviewed & are unremarkable except as noted in HPI and below Exam Narrative: Patient is comfortable, NAD HEENT: eyes are clear and none icteric LUNGS:CTA HEART: RR S1S2 ABD: BS+, Soft and nontender Lower extremities: no edema SKIN: nonjaundiced Neuro: grossly intact. Objective Data Vital Signs Vital Signs: Vital Signs - 24 hr 03/12/24 16:00 03/12/24 16:00 03/12/24 18:00 Temperature Pulse Rate 105 H 104 H 103 H Respiratory Rate 20 Blood Pressure Pulse Oximetry 93 Oxygen Delivery High Flow Therapy with Na Oxygen Flow Rate 45 Fraction of Inspired Oxygen 40 03/12/24 18:00 03/12/24 18:14 03/12/24 19:00 Temperature Pulse Rate 105 H 108 H 105 H Respiratory Rate 23 H 22 H 14 Blood Pressure 141/107 H 125/98 H 126/102 H Pulse Oximetry 88 L 92 93 Oxygen Delivery Oxygen Flow Rate Fraction of Inspired Oxygen 03/12/24 20:00 03/12/24 20:00 03/12/24 20:00 Temperature 36.7 C Pulse Rate 104 H 104 H Respiratory Rate 21 H Blood Pressure Pulse Oximetry 93 93 Oxygen Delivery High Flow Therapy with Na Oxygen Flow Rate 45 Fraction of Inspired Oxygen 40 03/12/24 20:20 03/12/24 20:20 03/12/24 20:30 Temperature Pulse Rate 110 H 102 H Respiratory Rate 20 20 Blood Pressure Pulse Oximetry 91 Oxygen Delivery High Flow Therapy with Na Oxygen Flow Rate 45 Fraction of Inspired Oxygen 41 03/12/24 20:45 03/12/24 21:39 03/12/24 22:00 Temperature Pulse Rate 103 H Respiratory Rate Blood Pressure 129/91 H Pulse Oximetry Oxygen Delivery Oxygen Flow Rate Fraction of Inspired Oxygen 40 03/12/24 22:11 03/12/24 22:50 03/12/24 23:43 Temperature Pulse Rate Respiratory Rate Blood Pressure Pulse Oximetry 92 94 Oxygen Delivery High Flow Therapy with Na BiPAP Oxygen Flow Rate 35 Fraction of Inspired Oxygen 45 50 03/13/24 00:00 03/13/24 00:00 03/13/24 02:00 Temperature 36.6 C Pulse Rate 103 H 103 H 102 H Respiratory Rate 17 Blood Pressure 110/93 H Pulse Oximetry 94 Oxygen Delivery Oxygen Flow Rate Fraction of Inspired Oxygen 03/13/24 02:37 03/13/24 02:37 03/13/24 02:49 Temperature Pulse Rate 102 H 100 103 H Respiratory Rate 25 H 23 H 23 H Blood Pressure Pulse Oximetry 95 Oxygen Delivery BiPAP Oxygen Flow Rate Fraction of Inspired Oxygen 03/13/24 04:00 03/13/24 04:00 03/13/24 04:00 Temperature Pulse Rate 98 98 Respiratory Rate 21 H Blood Pressure 93/64 L Pulse Oximetry 93 89 L Oxygen Delivery BiPAP Oxygen Flow Rate Fraction of Inspired Oxygen 03/13/24 05:40 03/13/24 06:00 03/13/24 08:00 Temperature Pulse Rate 105 H 102 H 99 Respiratory Rate 22 H 24 H Blood Pressure Pulse Oximetry 96 96 Oxygen Delivery BiPAP High Flow Therapy with Na Oxygen Flow Rate 45 Fraction of Inspired Oxygen 40 03/13/24 08:00 03/13/24 08:00 03/13/24 08:14 Temperature 36.6 C Pulse Rate 100 100 Respiratory Rate 23 H Blood Pressure 101/82 Pulse Oximetry 96 95 Oxygen Delivery High Flow Therapy with Na Oxygen Flow Rate 35 Fraction of Inspired Oxygen 51 03/13/24 08:14 03/13/24 08:24 03/13/24 08:37 Temperature 36.6 C Pulse Rate 103 H 101 H 100 Respiratory Rate 20 20 23 H Blood Pressure 101/82 Pulse Oximetry Oxygen Delivery Oxygen Flow Rate Fraction of Inspired Oxygen 35 03/13/24 10:00 03/13/24 10:39 03/13/24 14:05 Temperature Pulse Rate 101 H Respiratory Rate Blood Pressure Pulse Oximetry 94 93 Oxygen Delivery High Flow Therapy with Na High Flow Therapy with Na Oxygen Flow Rate 35 35 Fraction of Inspired Oxygen 51 51 03/13/24 14:05 03/13/24 14:19 Temperature Pulse Rate 105 H 106 H Respiratory Rate 24 H 28 H Blood Pressure Pulse Oximetry Oxygen Delivery Oxygen Flow Rate Fraction of Inspired Oxygen Intake/Output Intake/Output: Intake & Output 03/10/24 03/11/24 03/12/24 03/13/24 23:59 23:59 23:59 23:59 Intake Total 2040 678 9411 740 Output Total [address] [facility] -[phone] Meds/Results Medications: Active Medications Generic Name Dose Route Start Last Admin Trade Name Freq PRN Reason Stop Dose Admin Acetaminophen 650 mg 03/09/24 18:43 03/11/24 14:44 Acetaminophen 325 Mg Tablet PO 650 mg Q4H PRN Administration Mild Pain (1-3) or Fever Albuterol/Ipratropium 3 ml 03/11/24 02:00 03/13/24 14:05 Ipratropium 0.5 Mg/Albuterol Sulfate 2.5 Mg Ampul.Neb 3 Ml INHALATION 3 ml Q6HRT CARIDAD Administration Albuterol/Ipratropium 3 ml 03/11/24 00:48 Ipratropium 0.5 Mg/Albuterol Sulfate 2.5 Mg Ampul.Neb 3 Ml INHALATION Q2HRT PRN Shortness Of Breath Or Wheezing Buspirone HCl 10 mg 03/10/24 09:00 03/13/24 12:09 Buspirone Hcl 10 Mg Tablet BY MOUTH 10 mg TID CARIDAD Administration Calcium Acetate 2,668 mg 03/10/24 08:00 03/13/24 12:07 Calcium Acetate 667 Mg Tablet PO 2,668 mg TIDWM CARIDAD Administration Calcium Carbonate 200 mg 03/09/24 23:10 Calcium Carbonate (Tums) 500 Mg (200 Mg Elemental) PO HS PRN Indigestion Cinacalcet 90 mg 03/10/24 09:00 03/13/24 08:27 Cinacalcet 30 Mg Tablet PO 90 mg DAILY CARIDAD Administration Dextrose 12.5 gm 03/12/24 11:41 Dextrose 50% 25 Gm/50 Ml Syringe IV PUSH PRN PRN Hypoglycemia Protocol Diphenoxylate HCl/Atropine 1 tablet 03/12/24 11:39 Diphenoxylate/Atropine (*Crx) 2.5 Mg Tablet PO QID PRN Diarrhea Escitalopram Oxalate 10 mg 03/10/24 09:00 03/13/24 08:27 Escitalopram Oxalate 10 Mg Tablet PO 10 mg DAILY CARIDAD Administration Gentamicin Sulfate 1 applic 03/09/24 21:00 03/12/24 20:36 Gentamicin Sulfate 0.1% Cr 15 Gm Tube TOPICAL 1 applic QHS CARIDAD Administration Glucagon 1 mg 03/12/24 11:41 Glucagon For Inj 1 Mg Vial IM PRN PRN Hypoglycemia Protocol Glucose 15 gm 03/12/24 11:41 Glucose Oral Gel 15 Gm Of Glucse In 37.5 Gm Tube PO PRN PRN Hypoglycemia Protocol Heparin Sodium (Porcine) 5,000 units 03/10/24 14:00 03/13/24 13:31 Heparin Sodium 5,000 Units/Ml Vial SUB-Q 5,000 units Q8HR CARIDAD Administration Hydralazine HCl 10 mg 03/11/24 11:03 03/11/24 21:31 Hydralazine Hcl 20 Mg/Ml Vial IV PUSH 10 mg Q4H PRN Administration Blood Pressure - High Ceftriaxone Sodium 2 gm in 100 mls @ 200 mls/hr 03/11/24 10:00 03/13/24 08:26 Rocephin 2 Gm/Ns 100 Ml IVPB 200 mls/hr DAILY CARIDAD Administration Dextrose 1,000 mls @ 100 mls/hr 03/12/24 11:41 Dextrose 5% 1,000 Ml IVPB PRN PRN Hypoglycemia Protocol Insulin Aspart 3 - 6 units 03/12/24 12:00 03/13/24 12:08 Insulin Aspart (*Bkc) 100 Units/Ml SUB-Q Not Given TIDWM CARIDAD Protocol Insulin Aspart 1 - 3 units 03/12/24 21:00 03/12/24 20:41 Insulin Aspart (*Bkc) 100 Units/Ml SUB-Q 2 units HS CARIDAD Administration Protocol Labetalol HCl 100 mg 03/10/24 09:00 03/12/24 09:00 Labetalol Hcl 100 Mg Tablet PO Not Given Q12HR CARIDAD Melatonin 20 mg 03/10/24 21:00 03/10/24 20:33 Melatonin 5 Mg Tablet PO 20 mg QHS CARIDAD Administration Methylprednisolone Sodium Succinate 40 mg 03/11/24 12:00 03/13/24 12:07 Methylprednisolone Sod Succ 40 Mg Vial IV PUSH 40 mg Q6HR CARIDAD Administration Metolazone 5 mg 03/10/24 09:00 03/12/24 09:00 Metolazone 5 Mg Tablet PO Not Given DAILY CARIDAD *Home Med*Ferric 0 mg 03/10/24 08:00 03/13/24 12:08 Citrate [Auryxia] PO 04/09/24 07:59 840 mg 210 Mg Iron Tablet TIDWM CARIDAD Administration Nortriptyline HCl 50 mg 03/10/24 21:00 03/12/24 20:38 Nortriptyline Hcl 25 Mg Capsule PO 50 mg QHS CARIDAD Administration Ondansetron HCl 4 mg 03/09/24 18:43 03/13/24 11:03 Ondansetron Inj 4 Mg/2 Ml Vial IV PUSH 4 mg Q4H PRN Administration Nausea Pantoprazole Sodium 40 mg 03/10/24 09:00 03/10/24 08:14 Pantoprazole 40 Mg Tablet PO 40 mg QAM CARIDAD Administration Pantoprazole Sodium 40 mg 03/11/24 09:00 03/13/24 08:27 Pantoprazole Sodium Iv 40 Mg Vial IV PUSH 40 mg QAM CARIDAD Administration Torsemide 100 mg 03/11/24 17:00 03/12/24 09:00 Torsemide 20 Mg Tablet PO Not Given BID CARIDAD Vancomycin HCl 1 each 03/11/24 10:21 Vancomycin For Peritoneal Dialysis IVPB PRN PRN Vancomycin Protocol Radiology Results: ITS Impressions Chest X-Ray 03/13/24 05:51 Impression: Possible mild central pulmonary venous congestive change. Labs Labs: Laboratory Results - last 24 hr 03/10/24 03/12/24 03/12/24 09:40 16:56 20:35 WBC RBC Hgb Hct MCV MCH MCHC RDW Plt Count MPV Immature Gran % (Auto) Neut % (Auto) Lymph % (Auto) [place] % (Auto) Eos % (Auto) Baso % (Auto) Lymph # (Auto) [place] # (Auto) Eos # (Auto) Baso # (Auto) Abs Immat Gran (auto) Absolute Neuts (auto) Absolute Nucleated RBC Nucleated RBC % Puncture Site ABG pH ABG pCO2 ABG pO2 ABG PO2/FiO2 Ratio ABG HCO3 ABG O2 Saturation ABG O2 Content ABG Base Excess A-a Gradient Oxyhemoglobin Carboxyhemoglobin Methemoglobin Reduced Hemoglobin Total Hemoglobin O2 Delivery Device O2 Liters/Min Vent Rate FiO2 Expiratory Pressure Inspiratory Pressure Sodium Potassium Chloride Carbon Dioxide Anion Gap BUN Creatinine Estim Creat Clear Calc Estimated GFR Glucose POC Capillary Glucose 244 H 317 H Lactic Acid Calcium Phosphorus Magnesium Total Bilirubin AST ALT Alkaline Phosphatase Total Protein Albumin Random Vancomycin [place]/Lambda Ratio 1.32 Free [place] Light Chains 144.0 H Free Lambda Light Chain 109.0 H 03/13/24 03/13/24 03/13/24 04:14 05:27 07:40 WBC 27.2 H RBC 4.78 Hgb 15.2 D Hct 48.0 MCV 100.4 H MCH 31.8 MCHC 31.7 L RDW 13.4 Plt Count 554 H MPV 9.7 Immature Gran % (Auto) 1.0 H Neut % (Auto) 83.7 H Lymph % (Auto) 7.1 L [place] % (Auto) 7.9 Eos % (Auto) 0.0 Baso % (Auto) 0.3 Lymph # (Auto) 1.94 [place] # (Auto) 2.2 H Eos # (Auto) 0.0 Baso # (Auto) 0.1 Abs Immat Gran (auto) 0.26 H Absolute Neuts (auto) 22.8 H Absolute Nucleated RBC 0.500 H Nucleated RBC % 1.8 H Puncture Site Right radial ABG pH 7.361 ABG pCO2 36.2 ABG pO2 86.8 ABG PO2/FiO2 Ratio 2.17 ABG HCO3 20.0 L ABG O2 Saturation 96.3 ABG O2 Content 21.6 ABG Base Excess -4.6 A-a Gradient 156.8 Oxyhemoglobin 96.1 Carboxyhemoglobin 0.7 Methemoglobin 0.0 Reduced Hemoglobin 3.2 Total Hemoglobin 16.0 O2 Delivery Device Non-invasive vent O2 Liters/Min Not Reportable Vent Rate 20 FiO2 40 Expiratory Pressure 8 Inspiratory Pressure 18 Sodium 144 Potassium 3.2 L Chloride 98 Carbon Dioxide 20 L Anion Gap 26 H BUN 48 H Creatinine 12.60 H Estim Creat Clear Calc 8 Estimated GFR 4 L Glucose 323 H POC Capillary Glucose Lactic Acid 2.5 H 2.7 H Calcium 11.1 H Phosphorus 5.2 H Magnesium 2.3 Total Bilirubin 0.6 AST 20 ALT 24 Alkaline Phosphatase 161 H Total Protein 9.0 H Albumin 4.7 Random Vancomycin 17.7 [place]/Lambda Ratio Free [place] Light Chains Free Lambda Light Chain 03/13/24 03/13/24 08:24 12:04 WBC RBC Hgb Hct MCV MCH MCHC RDW Plt Count MPV Immature Gran % (Auto) Neut % (Auto) Lymph % (Auto) [place] % (Auto) Eos % (Auto) Baso % (Auto) Lymph # (Auto) [place] # (Auto) Eos # (Auto) Baso # (Auto) Abs Immat Gran (auto) Absolute Neuts (auto) Absolute Nucleated RBC Nucleated RBC % Puncture Site ABG pH ABG pCO2 ABG pO2 ABG PO2/FiO2 Ratio ABG HCO3 ABG O2 Saturation ABG O2 Content ABG Base Excess A-a Gradient Oxyhemoglobin Carboxyhemoglobin Methemoglobin Reduced Hemoglobin Total Hemoglobin O2 Delivery Device O2 Liters/Min Vent Rate FiO2 Expiratory Pressure Inspiratory Pressure Sodium Potassium Chloride Carbon Dioxide Anion Gap BUN Creatinine Estim Creat Clear Calc Estimated GFR Glucose POC Capillary Glucose 268 H 196 H Lactic Acid Calcium Phosphorus Magnesium Total Bilirubin AST ALT Alkaline Phosphatase Total Protein Albumin Random Vancomycin [place]/Lambda Ratio Free [place] Light Chains Free Lambda Light Chain Quality VTE Prophylaxis VTE prophylaxis: pharmacologic ordered
[2024-03-13] MEDS: OSELTAMIVIR PHOSPHATE 30 MG CAPSULE PO (16:59)
[2024-03-13] MEDS: AZITHROMYCIN 250 MG TABLET 500 MG PO (16:59)
[2024-03-13 17:11] LABS: Glucose Point of Care 181 mg/dl (65-105)
[2024-03-13 21:12] LABS: Glucose Point of Care 192 mg/dl (65-105)
[2024-03-13] MEDS: MELATONIN 5 MG TABLET PO (21:13)
[2024-03-13] MEDS: NORTRIPTYLINE HCL 25 MG CAPSULE 50 MG PO (21:14)
[2024-03-13] MEDS: GENTAMICIN SULFATE 0.1% CR 15 GM TUBE 1 APPLIC TOPICAL (21:15)
[2024-03-14] VITALS (23 sets, daily range): BP systolic 101–129; BP diastolic 76–101; PULSE 62–111; RESP 16–25; TEMP 36.5–36.9; O2SAT 91–99
[2024-03-14 02:38] LABS: Hematocrit 49.5 % (42.0-52.0); Hemoglobin 15.3 g/dL (14.0-18.0); Mean Corpuscular HGB Conc 30.9 g/dl (32-36); Mean Corpuscular Hemoglobin 31.6 pg (26-34); Mean Corpuscular Volume 102.3 fl (80-100); Mean Platelet Volume 9.5 fl (7.4-10.4); Platelet Count Result 513 k/mm3 (150-375); Red Blood Count 4.84 M/mm3 (4.6-6.20); Red Cell Distribution Width 13.7 % (11.5-14.5); White Blood Count 35.9 K/mm3 (4.5-10.0)
[2024-03-14] MEDS: IPRATROPIUM 0.5 MG/ALBUTEROL SULFATE 2.5 MG AMPUL.NEB 3 ML INHALATION ×4 (02:45→20:27)
[2024-03-14 02:50] LABS: Alanine Aminotransferase 21 U/L (6-50); Albumin Level 4.3 g/dL (3.5-5.1); Alkaline Phosphatase 145 U/L (38-126); Anion Gap 24 mmol/L (4-12); Aspartate Amino Transferase 21 U/L (17-59); Bilirubin,Total 0.6 mg/dL (0.2-1.3); Blood Urea Nitrogen 57 mg/dL (9-20); Calcium 10.6 mg/dL (8.4-10.2); Carbon Dioxide 20 mmol/L (22-30); Chloride 97 mmol/L (98-107); Estimated CRCL calculation 8 ml/min; Estimated Glomerular Filt Rate 5; Glucose 192 mg/dL (65-110); Phosphorus 6.6 mg/dL (2.5-4.5); Potassium 3.5 mmol/L (3.4-5.0); Sodium 141 mmol/L (137-145)
[2024-03-14 03:00] LABS: Band Neutrophils Percent 2 % (0-6); Lymphocytes Absolute Manual 2.51 K/mm3 (1.1-4.5); Monocytes Absolute Manual 1.79 K/mm3 (0.1-0.90); Monocytes Percent Manual 5 % (3-9); Neutrophils Absolute Manual 31.59 K/mm3 (1.3-6.7); Neutrophils Percent Manual 86 % (46-73); Nucleated Red Blood Cells 1 %; Total Cells Counted 100
[2024-03-14 03:01] LABS: Large Platelets Present; Platelet Estimate Increased (Adequate); Schistocytes None Seen
[2024-03-14] MEDS: ACETAMINOPHEN 325 MG TABLET 650 MG PO ×2 (05:40→21:37)
[2024-03-14] MEDS: methylPREDNISolone SOD SUCC 40 MG VIAL IV PUSH (05:41)
[2024-03-14] MEDS: HEPARIN SODIUM 5,000 UNITS/ML VIAL 5000 UNITS SUB-Q ×3 (05:41→21:37)
[2024-03-14] MEDS: CINACALCET 30 MG TABLET 90 MG PO (08:10)
[2024-03-14] MEDS: ESCITALOPRAM OXALATE 10 MG TABLET PO (08:11)
[2024-03-14] MEDS: cefTRIAXone 2 GM/NS 100 ML 2 GM/100 ML BAG IVPB (08:11)
[2024-03-14] MEDS: CALCIUM ACETATE 667 MG TABLET 2668 MG PO ×3 (08:11→16:45)
[2024-03-14] MEDS: PANTOPRAZOLE SODIUM IV 40 MG VIAL IV PUSH (08:11)
[2024-03-14] MEDS: busPIRone HCL 10 MG TABLET BY MOUTH ×3 (08:11→16:45)
[2024-03-14] MEDS: FERRIC CITRATE 210 MG PO ×3 (08:16→16:45)
[2024-03-14] MEDS: IRON PO ×3 (08:16→16:45)
[2024-03-14 08:31] LABS: Glucose Point of Care 159 mg/dl (65-105)
--- NOTE | 2024-03-14 09:35 | P.PNNP_ITS ---
Progress Note: A&P Assessment and Plan (1) End stage renal disease: Code(s): N18.6 - End stage renal disease Status: Chronic Assessment and Plan: * continue nightly CCPD * s/p 24 hour sessions of PD x 3 days with aggressive ultrafiltration/fluid removal * follow electrolytes, volume status, and clearance (2) Acute hypercapnic respiratory failure: Code(s): J96.02 - Acute respiratory failure with hypercapnia Status: Acute Assessment and Plan: * multifactorial etiology: * volume overload * pneumonia * influenza * questionable COPD * empiric antibiotics * follow cultures * high flow oxygen therapy during the day and BiPAP at night * follow respiratory status (3) Fluid overload: Qualifiers: Hypervolemia type: unspecified Qualified Code(s): E87.70 - Fluid overload, unspecified Code(s): E87.70 - Fluid overload, unspecified Status: Acute Assessment and Plan: * clinical improvement noted * as noted on presentation * s/p aggressive ultrafiltation/fluid removal with PD x 3 days (24 hour treatments) * almost 12L negative since admission * continue fluid and salt restriction (4) Influenza A: Code(s): J10.1 - Influenza due to other identified influenza virus with other respiratory manifestations Status: Acute Assessment and Plan: * positive testing noted * s/p Tamiflu 30 mg x 1 dose * respiratory isolation * supportive therapy (5) Hyponatremia: Code(s): E87.1 - Hypo-osmolality and hyponatremia Status: Acute Assessment and Plan: * resolved * related to ESRD and increased free water intake + volume overload * on fluid restriction and fluid removal with PD (6) HTN (hypertension): Code(s): I10 - Essential (primary) hypertension Status: Chronic Assessment and Plan: * despite known history, relative hypotension at this time * suspect low BP due to aggressive fluid removal/ultrafiltration with PD * BP medications with parameters * follow trend of hemodynamics Will continue to follow. L Subjective Date/time seen: 03/14/24 09:35 Interval history: Follow-up for end stage renal disease on peritoneal dialysis. Resting comfortably at the time of my visit; continues to tolerate nightly PD treatments without any issues or problems; still requiring high flow oxygen therapy; no events overnight or earlier this morning; mother at bedside and we discussed the situation Exam 2 Narrative: General: male who appears older than stated age in NAD Heart: normal S1 and S2; no rub Lungs: coarse with a few wheezes Abdomen: soft, nontender, nondistended, positive bowel sounds Extremities: no cyanosis or clubbing; trace edema Skin: warm and intact Objective Data Vital Signs Vital Signs: Vital Signs Temp Pulse Resp BP Pulse Ox O2 Del Method O2 Flow Rate 03/14/24 08:35 03/14/24 08:00 105 H 19 101/82 94 03/14/24 08:00 105 H 03/14/24 08:00 105 H 19 94 High Flow Therapy with Na 35 03/14/24 07:53 105 H 20 03/14/24 07:44 107 H 20 03/14/24 07:44 96 High Flow Therapy with Na 35 03/14/24 06:00 96 03/14/24 05:46 105 H 101/76 03/14/24 04:00 93 High Flow Therapy with Na 35 03/14/24 04:00 97.7 F 105 H 23 H 118/101 H 92 03/14/24 04:00 108 H 03/14/24 02:51 111 H 19 03/14/24 02:49 108 H 94 High Flow Therapy with Na 35 03/14/24 02:45 109 H 23 H 03/14/24 02:00 104 H 03/14/24 00:00 97.8 F 100 21 H 111/90 91 03/14/24 00:00 100 03/14/24 00:00 93 High Flow Therapy with Na 35 03/13/24 22:00 102 H 03/13/24 20:41 108 H 21 H 03/13/24 20:39 110 H 93 High Flow Therapy with Na 35 03/13/24 20:34 105 H 21 H 03/13/24 20:00 98.0 F 101 H 23 H 138/105 H 94 03/13/24 20:00 101 H 03/13/24 20:00 93 High Flow Therapy with Na 35 03/13/24 18:00 111 H 03/13/24 16:35 94 High Flow Therapy with Na 35 03/13/24 16:00 98.3 F 101 H 26 H 96 03/13/24 16:00 101 H 03/13/24 16:00 971 H 26 H 96 High Flow Therapy with Na 45 03/13/24 14:19 106 H 28 H 03/13/24 14:05 105 H 24 H 03/13/24 14:05 93 High Flow Therapy with Na 35 03/13/24 14:00 103 H Intake/Output Intake/Output: Intake & Output 03/11/24 03/12/24 03/13/24 03/14/24 23:59 23:59 23:59 23:59 Intake Total 900 1515 2540 890 Output Total 4044 6544 1163 1012 [facility] -5179 -[phone] Meds/Results Medications: Active Medications Generic Name Dose Route Start Last Admin Trade Name Freq PRN Reason Stop Dose Admin Acetaminophen 650 mg 03/09/24 18:43 03/14/24 05:40 Acetaminophen 325 Mg Tablet PO 650 mg Q4H PRN Administration Mild Pain (1-3) or Fever Albuterol/Ipratropium 3 ml 03/11/24 02:00 03/14/24 07:44 Ipratropium 0.5 Mg/Albuterol Sulfate 2.5 Mg Ampul.Neb 3 Ml INHALATION 3 ml Q6HRT CARIDAD Administration Albuterol/Ipratropium 3 ml 03/11/24 00:48 Ipratropium 0.5 Mg/Albuterol Sulfate 2.5 Mg Ampul.Neb 3 Ml INHALATION Q2HRT PRN Shortness Of Breath Or Wheezing Azithromycin 500 mg 03/13/24 17:00 03/13/24 16:59 Azithromycin 250 Mg Tablet PO 03/17/24 17:01 500 mg DAILY@1700 CARIDAD Administration Buspirone HCl 10 mg 03/10/24 09:00 03/14/24 08:11 Buspirone Hcl 10 Mg Tablet BY MOUTH 10 mg TID CARIDAD Administration Calcium Acetate 2,668 mg 03/10/24 08:00 03/14/24 08:11 Calcium Acetate 667 Mg Tablet PO 2,668 mg TIDWM CARIDAD Administration Calcium Carbonate 200 mg 03/09/24 23:10 Calcium Carbonate (Tums) 500 Mg (200 Mg Elemental) PO HS PRN Indigestion Cinacalcet 90 mg 03/10/24 09:00 03/14/24 08:10 Cinacalcet 30 Mg Tablet PO 90 mg DAILY CARIDAD Administration Dextrose 12.5 gm 03/12/24 11:41 Dextrose 50% 25 Gm/50 Ml Syringe IV PUSH PRN PRN Hypoglycemia Protocol Diphenoxylate HCl/Atropine 1 tablet 03/12/24 11:39 Diphenoxylate/Atropine (*Crx) 2.5 Mg Tablet PO QID PRN Diarrhea Escitalopram Oxalate 10 mg 03/10/24 09:00 03/14/24 08:11 Escitalopram Oxalate 10 Mg Tablet PO 10 mg DAILY CARIDAD Administration Gentamicin Sulfate 1 applic 03/09/24 21:00 03/13/24 21:15 Gentamicin Sulfate 0.1% Cr 15 Gm Tube TOPICAL 1 applic QHS CARIDAD Administration Glucagon 1 mg 03/12/24 11:41 Glucagon For Inj 1 Mg Vial IM PRN PRN Hypoglycemia Protocol Glucose 15 gm 03/12/24 11:41 Glucose Oral Gel 15 Gm Of Glucse In 37.5 Gm Tube PO PRN PRN Hypoglycemia Protocol Heparin Sodium (Porcine) 5,000 units 03/10/24 14:00 03/14/24 05:41 Heparin Sodium 5,000 Units/Ml Vial SUB-Q 5,000 units Q8HR CARIDAD Administration Hydralazine HCl 10 mg 03/11/24 11:03 03/11/24 21:31 Hydralazine Hcl 20 Mg/Ml Vial IV PUSH 10 mg Q4H PRN Administration Blood Pressure - High Ceftriaxone Sodium 2 gm in 100 mls @ 200 mls/hr 03/11/24 10:00 03/14/24 08:11 Rocephin 2 Gm/Ns 100 Ml IVPB 03/17/24 09:29 200 mls/hr DAILY CARIDAD Administration Dextrose 1,000 mls @ 100 mls/hr 03/12/24 11:41 Dextrose 5% 1,000 Ml IVPB PRN PRN Hypoglycemia Protocol Insulin Aspart 3 - 6 units 03/12/24 12:00 03/14/24 08:15 Insulin Aspart (*Bkc) 100 Units/Ml SUB-Q Not Given TIDWM [facility] Protocol Insulin Aspart 1 - 3 units 03/12/24 21:00 03/13/24 21:14 Insulin Aspart (*Bkc) 100 Units/Ml SUB-Q Not Given HS [facility] Protocol Labetalol HCl 100 mg 03/10/24 09:00 03/12/24 09:00 Labetalol Hcl 100 Mg Tablet PO Not Given Q12HR CARIDAD Melatonin 20 mg 03/10/24 21:00 03/10/24 20:33 Melatonin 5 Mg Tablet PO 20 mg QHS CARIDAD Administration Melatonin 5 mg 03/13/24 19:50 03/13/24 21:13 Melatonin 5 Mg Tablet PO 5 mg HS PRN Administration Insomnia Methylprednisolone Sodium Succinate 40 mg 03/15/24 09:00 Methylprednisolone Sod Succ 40 Mg Vial IV PUSH QAM CARIDAD Metolazone 5 mg 03/10/24 09:00 03/12/24 09:00 Metolazone 5 Mg Tablet PO Not Given DAILY CARIDAD *Home Med*Ferric 0 mg 03/10/24 08:00 03/14/24 08:16 Citrate [Auryxia] PO 04/09/24 07:59 840 mg 210 Mg Iron Tablet TIDWM [facility] Administration Nortriptyline HCl 50 mg 03/10/24 21:00 03/13/24 21:14 Nortriptyline Hcl 25 Mg Capsule PO 50 mg QHS CARIDAD Administration Ondansetron HCl 4 mg 03/09/24 18:43 03/13/24 18:29 Ondansetron Inj 4 Mg/2 Ml Vial IV PUSH 4 mg Q4H PRN Administration Nausea Pantoprazole Sodium 40 mg 03/10/24 09:00 03/10/24 08:14 Pantoprazole 40 Mg Tablet PO 40 mg QAM CARIDAD Administration Pantoprazole Sodium 40 mg 03/11/24 09:00 03/14/24 08:11 Pantoprazole Sodium Iv 40 Mg Vial IV PUSH 40 mg QAM CARIDAD Administration Torsemide 100 mg 03/11/24 17:00 03/12/24 09:00 Torsemide 20 Mg Tablet PO Not Given BID [facility] Radiology Results: ITS Impressions Chest X-Ray 03/13/24 05:51 Impression: Possible mild central pulmonary venous congestive change. Labs Labs: Laboratory Tests 03/14/24 02:33 03/14/24 02:33 Calcium 10.6 H Phosphorus 6.6 H Magnesium 2.0 Total Bilirubin 0.6 AST 21 ALT 21 Alkaline Phosphatase 145 H Total Protein 9.0 H Albumin 4.3
--- NOTE | 2024-03-14 11:35 | P.PNIM_ITS ---
Progress Note: A&P Assessment and Plan (1) Acute hypercapnic respiratory failure: Code(s): J96.02 - Acute respiratory failure with hypercapnia Status: Acute Assessment and Plan: Acute hypercapnic respiratory failure likely related to volume overload, influenza A pneumonia, questionable COPD S patient has a history of tobacco use and currently smokes marijuana -03/11: Transferred from medical floor to ICU for hypoxic and hypercapnic respiratory failure, wheezing, volume overload, possible pneumonia -03/09: Influenza A positive -continue fluid removal with peritoneal dialysis -s continue course ceftriaxone and vancomycin -continue Tamiflu -wean oxygen --currently afebrile -tolerated high-flow therapy through the day and BiPAP overnight, will continue the same for today and tonight -incentive spirometry (2) End-stage renal disease on peritoneal dialysis: Code(s): N18.6 - End stage renal disease; Z99.2 - Dependence on renal dialysis Status: Acute Assessment and Plan: End-stage renal disease on peritoneal dialysis -nephrology follow -PD schedule per leather etcher -patient also is on torsemide, metolazone at home, will continue -good fluid removal with peritoneal dialysis, wrinkling of the lower extremities noted, -patient on fluid restriction per leather etcher (3) Fluid overload: Qualifiers: Hypervolemia type: unspecified Qualified Code(s): E87.70 - Fluid overload, unspecified Code(s): E87.70 - Fluid overload, unspecified Status: Acute Assessment and Plan: Likely related to incomplete peritoneal dialysis at home -continue PD per leather etcher -improved (4) HTN (hypertension): Code(s): I10 - Essential (primary) hypertension Status: Chronic Assessment and Plan: Essential hypertension, hold amlodipine, labetalol and blood pressures are within normal limits for now -will add p.r.n. hydralazine (5) Polyneuropathy: Code(s): G62.9 - Polyneuropathy, unspecified Status: Acute Assessment and Plan: Will discontinue gabapentin since patient has been having tremor-like/asterixis movements -continue nortriptyline (6) Influenza A: Code(s): J10.1 - Influenza due to other identified influenza virus with other respiratory manifestations Status: Acute Assessment and Plan: Continue Marisela Plan DVT prophylaxis: Heparin SQ Stress ulcer prophylaxis: Protonix Nutrition: Diet ordered Code Status: Full code Subjective Date/time seen: 03/14/24 Patient states he feels markedly better as compared to last few days. His breathing is better. He denies any cough. He denies any pain. He denies any abdominal pain. He is tolerating p.o. diet. No nausea vomiting. He does have cough which is mostly dry. He denied any fever. He had his PD last night. He is on high-flow nasal cannula at 35% FiO2 and 35 L flow He is afebrile All other systems were reviewed and were negative Review of Systems Review of Systems: All systems reviewed & are unremarkable except as noted in HPI and below Exam Narrative: General: Patient appears older than his stated age, currently in no acute distress HEENT:? Pupils equal and reactive, sclerae is clear, on high-flow nasal cannulae Respiratory:? Better air entry in all lung zones, no wheezing, coarse breath sounds at bases, adequate air entry Cardiac:? S1-S2 is normal, slight tachycardia with heart rates in the 100-110 Abdomen:? Soft, nontender, protuberant, decreased bowel sounds, peritoneal dialysis catheter in place, area surrounding is clean, dry and intact no tenderness to palpation Extremities:? Bilateral upper and lower extremity edema much improved, lower extremity wrinkling of the skin is noted but edema is improved, palpable pedal pulses, Neuro:? Patient is awake, alert, able to answer questions and follows simple commands in all extremities Skin:? Chronic venous stasis change Psych:? Normal mentation, flat affect Objective Data Vital Signs Vital Signs: Vital Signs - 24 hr 03/13/24 12:00 03/13/24 12:00 03/13/24 12:00 Temperature 36.7 C Pulse Rate 97 102 H 109 H Respiratory Rate 24 H 27 H Blood Pressure Pulse Oximetry 98 93 Oxygen Delivery High Flow Therapy with Na Oxygen Flow Rate 45 Fraction of Inspired Oxygen 40 03/13/24 14:00 03/13/24 14:05 03/13/24 14:05 Temperature Pulse Rate 103 H 105 H Respiratory Rate 24 H Blood Pressure Pulse Oximetry 93 Oxygen Delivery High Flow Therapy with Na Oxygen Flow Rate 35 Fraction of Inspired Oxygen 51 03/13/24 14:19 03/13/24 16:00 03/13/24 16:00 Temperature Pulse Rate 106 H 971 H 101 H Respiratory Rate 28 H 26 H Blood Pressure Pulse Oximetry 96 Oxygen Delivery High Flow Therapy with Na Oxygen Flow Rate 45 Fraction of Inspired Oxygen 40 03/13/24 16:00 03/13/24 16:35 03/13/24 18:00 Temperature 36.8 C Pulse Rate 101 H 111 H Respiratory Rate 26 H Blood Pressure Pulse Oximetry 96 94 Oxygen Delivery High Flow Therapy with Na Oxygen Flow Rate 35 Fraction of Inspired Oxygen 51 03/13/24 20:00 03/13/24 20:00 03/13/24 20:00 Temperature 36.7 C Pulse Rate 101 H 101 H Respiratory Rate 23 H Blood Pressure 138/105 H Pulse Oximetry 93 94 Oxygen Delivery High Flow Therapy with Na Oxygen Flow Rate 35 Fraction of Inspired Oxygen 50 03/13/24 20:34 03/13/24 20:39 03/13/24 20:41 Temperature Pulse Rate 105 H 110 H 108 H Respiratory Rate 21 H 21 H Blood Pressure Pulse Oximetry 93 Oxygen Delivery High Flow Therapy with Na Oxygen Flow Rate 35 Fraction of Inspired Oxygen 50 03/13/24 22:00 03/14/24 00:00 03/14/24 00:00 Temperature Pulse Rate 102 H 100 Respiratory Rate Blood Pressure Pulse Oximetry 93 Oxygen Delivery High Flow Therapy with Na Oxygen Flow Rate 35 Fraction of Inspired Oxygen 50 03/14/24 00:00 03/14/24 02:00 03/14/24 02:45 Temperature 36.6 C Pulse Rate 100 104 H 109 H Respiratory Rate 21 H 23 H Blood Pressure 111/90 Pulse Oximetry 91 Oxygen Delivery Oxygen Flow Rate Fraction of Inspired Oxygen 03/14/24 02:49 03/14/24 02:51 03/14/24 04:00 Temperature Pulse Rate 108 H 111 H 108 H Respiratory Rate 19 Blood Pressure Pulse Oximetry 94 Oxygen Delivery High Flow Therapy with Na Oxygen Flow Rate 35 Fraction of Inspired Oxygen 50 03/14/24 04:00 03/14/24 04:00 03/14/24 05:46 Temperature 36.5 C Pulse Rate 105 H 105 H Respiratory Rate 23 H Blood Pressure 118/101 H 101/76 Pulse Oximetry 92 93 Oxygen Delivery High Flow Therapy with Na Oxygen Flow Rate 35 Fraction of Inspired Oxygen 50 03/14/24 06:00 03/14/24 07:44 03/14/24 07:44 Temperature Pulse Rate 96 107 H Respiratory Rate 20 Blood Pressure Pulse Oximetry 96 Oxygen Delivery High Flow Therapy with Na Oxygen Flow Rate 35 Fraction of Inspired Oxygen 50 03/14/24 07:53 03/14/24 08:00 03/14/24 08:00 Temperature Pulse Rate 105 H 105 H 105 H Respiratory Rate 20 19 Blood Pressure Pulse Oximetry 94 Oxygen Delivery High Flow Therapy with Na Oxygen Flow Rate 35 Fraction of Inspired Oxygen 50 03/14/24 08:00 03/14/24 08:35 03/14/24 10:00 Temperature Pulse Rate 105 H 106 H Respiratory Rate 19 Blood Pressure 101/82 Pulse Oximetry 94 Oxygen Delivery Oxygen Flow Rate Fraction of Inspired Oxygen 35 Intake/Output Intake/Output: Intake & Output 03/11/24 03/12/24 03/13/24 03/14/24 23:59 23:59 23:59 23:59 Intake Total 900 1515 2540 890 Output Total 4044 6564 1163 1011 [id number] 1377 -121 Meds/Results Medications: Active Medications Generic Name Dose Route Start Last Admin Trade Name Freq PRN Reason Stop Dose Admin Acetaminophen 650 mg 03/09/24 18:43 03/14/24 05:40 Acetaminophen 325 Mg Tablet PO 650 mg Q4H PRN Administration Mild Pain (1-3) or Fever Albuterol/Ipratropium 3 ml 03/11/24 02:00 03/14/24 07:44 Ipratropium 0.5 Mg/Albuterol Sulfate 2.5 Mg Ampul.Neb 3 Ml INHALATION 3 ml Q6HRT CARIDAD Administration Albuterol/Ipratropium 3 ml 03/11/24 00:48 Ipratropium 0.5 Mg/Albuterol Sulfate 2.5 Mg Ampul.Neb 3 Ml INHALATION Q2HRT PRN Shortness Of Breath Or Wheezing Azithromycin 500 mg 03/13/24 17:00 03/13/24 16:59 Azithromycin 250 Mg Tablet PO 03/17/24 17:01 500 mg DAILY@1700 CARIDAD Administration Buspirone HCl 10 mg 03/10/24 09:00 03/14/24 08:11 Buspirone Hcl 10 Mg Tablet BY MOUTH 10 mg TID CARIDAD Administration Calcium Acetate 2,668 mg 03/10/24 08:00 03/14/24 08:11 Calcium Acetate 667 Mg Tablet PO 2,668 mg TIDWM CARIDAD Administration Calcium Carbonate 200 mg 03/09/24 23:10 Calcium Carbonate (Tums) 500 Mg (200 Mg Elemental) PO HS PRN Indigestion Cinacalcet 90 mg 03/10/24 09:00 03/14/24 08:10 Cinacalcet 30 Mg Tablet PO 90 mg DAILY CARIDAD Administration Dextrose 12.5 gm 03/12/24 11:41 Dextrose 50% 25 Gm/50 Ml Syringe IV PUSH PRN PRN Hypoglycemia Protocol Diphenoxylate HCl/Atropine 1 tablet 03/12/24 11:39 Diphenoxylate/Atropine (*Crx) 2.5 Mg Tablet PO QID PRN Diarrhea Escitalopram Oxalate 10 mg 03/10/24 09:00 03/14/24 08:11 Escitalopram Oxalate 10 Mg Tablet PO 10 mg DAILY CARIDAD Administration Gentamicin Sulfate 1 applic 03/09/24 21:00 03/13/24 21:15 Gentamicin Sulfate 0.1% Cr 15 Gm Tube TOPICAL 1 applic QHS CARIDAD Administration Glucagon 1 mg 03/12/24 11:41 Glucagon For Inj 1 Mg Vial IM PRN PRN Hypoglycemia Protocol Glucose 15 gm 03/12/24 11:41 Glucose Oral Gel 15 Gm Of Glucse In 37.5 Gm Tube PO PRN PRN Hypoglycemia Protocol Heparin Sodium (Porcine) 5,000 units 03/10/24 14:00 03/14/24 05:41 Heparin Sodium 5,000 Units/Ml Vial SUB-Q 5,000 units Q8HR CARIDAD Administration Hydralazine HCl 10 mg 03/11/24 11:03 03/11/24 21:31 Hydralazine Hcl 20 Mg/Ml Vial IV PUSH 10 mg Q4H PRN Administration Blood Pressure - High Ceftriaxone Sodium 2 gm in 100 mls @ 200 mls/hr 03/11/24 10:00 03/14/24 08:11 Rocephin 2 Gm/Ns 100 Ml IVPB 03/17/24 09:29 200 mls/hr DAILY CARIDAD Administration Dextrose 1,000 mls @ 100 mls/hr 03/12/24 11:41 Dextrose 5% 1,000 Ml IVPB PRN PRN Hypoglycemia Protocol Insulin Aspart 3 - 6 units 03/12/24 12:00 03/14/24 08:15 Insulin Aspart (*Bkc) 100 Units/Ml SUB-Q Not Given TIDWM CARIDAD Protocol Insulin Aspart 1 - 3 units 03/12/24 21:00 03/13/24 21:14 Insulin Aspart (*Bkc) 100 Units/Ml SUB-Q Not Given HS [facility] Protocol Labetalol HCl 100 mg 03/10/24 09:00 03/12/24 09:00 Labetalol Hcl 100 Mg Tablet PO Not Given Q12HR [facility] Melatonin 20 mg 03/10/24 21:00 03/10/24 20:33 Melatonin 5 Mg Tablet PO 20 mg QHS CARIDAD Administration Melatonin 5 mg 03/13/24 19:50 03/13/24 21:13 Melatonin 5 Mg Tablet PO 5 mg HS PRN Administration Insomnia Methylprednisolone Sodium Succinate 40 mg 03/15/24 09:00 Methylprednisolone Sod Succ 40 Mg Vial IV PUSH QAM CARIDAD Metolazone 5 mg 03/10/24 09:00 03/12/24 09:00 Metolazone 5 Mg Tablet PO Not Given DAILY [facility] *Home Med*Ferric 0 mg 03/10/24 08:00 03/14/24 08:16 Citrate [Auryxia] PO 04/09/24 07:59 840 mg 210 Mg Iron Tablet TIDWM [facility] Administration Nortriptyline HCl 50 mg 03/10/24 21:00 03/13/24 21:14 Nortriptyline Hcl 25 Mg Capsule PO 50 mg QHS [facility] Administration Ondansetron HCl 4 mg 03/09/24 18:43 03/13/24 18:29 Ondansetron Inj 4 Mg/2 Ml Vial IV PUSH 4 mg Q4H PRN Administration Nausea Pantoprazole Sodium 40 mg 03/10/24 09:00 03/10/24 08:14 Pantoprazole 40 Mg Tablet PO 40 mg QAM CARIDAD Administration Pantoprazole Sodium 40 mg 03/11/24 09:00 03/14/24 08:11 Pantoprazole Sodium Iv 40 Mg Vial IV PUSH 40 mg QAM CARIDAD Administration Torsemide 100 mg 03/11/24 17:00 03/12/24 09:00 Torsemide 20 Mg Tablet PO Not Given BID [facility] Radiology Results: ITS Impressions Chest X-Ray 03/13/24 05:51 Impression: Possible mild central pulmonary venous congestive change. Labs Labs: Laboratory Results - last 24 hr 03/10/24 03/10/24 03/13/24 09:40 09:41 12:04 WBC RBC Hgb Hct MCV MCH MCHC RDW Plt Count MPV Immature Gran % (Auto) Neut % (Auto) Lymph % (Auto) [place] % (Auto) Eos % (Auto) Baso % (Auto) Lymph # (Auto) [place] # (Auto) Eos # (Auto) Baso # (Auto) Abs Immat Gran (auto) Absolute Neuts (auto) Absolute Nucleated RBC Total Counted Neutrophils % (Manual) Band Neutrophils % Lymphocytes % (Manual) Monocytes % (Manual) Nucleated RBC % Abs Neuts (Manual) Abs Lymphs (Manual) Abs Monocytes (Manual) Nucleated RBCs Platelet Estimate Large Platelets Schistocytes Sodium Potassium Chloride Carbon Dioxide Anion Gap BUN Creatinine Estim Creat Clear Calc Estimated GFR Glucose POC Capillary Glucose 196 H Calcium Phosphorus Magnesium Total Bilirubin AST ALT Alkaline Phosphatase Total Protein Albumin TOOTIE Screen Negative [place]/Lambda Ratio 1.32 Free [place] Light Chains 144.0 H Free Lambda Light Chain 109.0 H 03/13/24 03/13/24 03/14/24 17:05 21:09 02:33 WBC 35.9 H RBC 4.84 Hgb 15.3 Hct 49.5 MCV 102.3 H MCH 31.6 MCHC 30.9 L RDW 13.7 Plt Count 513 H MPV 9.5 Immature Gran % (Auto) Not Reportable Neut % (Auto) Not Reportable Lymph % (Auto) Not Reportable [place] % (Auto) Not Reportable Eos % (Auto) Not Reportable Baso % (Auto) Not Reportable Lymph # (Auto) Not Reportable [place] # (Auto) Not Reportable Eos # (Auto) Not Reportable Baso # (Auto) Not Reportable Abs Immat Gran (auto) Not Reportable Absolute Neuts (auto) Not Reportable Absolute Nucleated RBC Not Reportable Total Counted 100 Neutrophils % (Manual) 86 H Band Neutrophils % 2 Lymphocytes % (Manual) 7.0 L Monocytes % (Manual) 5 Nucleated RBC % Not Reportable Abs Neuts (Manual) 31.59 H Abs Lymphs (Manual) 2.51 Abs Monocytes (Manual) 1.79 H Nucleated RBCs 1 Platelet Estimate Increased Large Platelets Present Schistocytes None seen Sodium 141 Potassium 3.5 Chloride 97 L Carbon Dioxide 20 L Anion Gap 24 H BUN 57 H Creatinine 11.37 H Estim Creat Clear Calc 8 Estimated GFR 5 L Glucose 192 H POC Capillary Glucose 181 H 192 H Calcium 10.6 H Phosphorus 6.6 H Magnesium 2.0 Total Bilirubin 0.6 AST 21 ALT 21 Alkaline Phosphatase 145 H Total Protein 9.0 H Albumin 4.3 TOOTIE Screen [place]/Lambda Ratio Free [place] Light Chains Free Lambda Light Chain 03/14/24 08:15 WBC RBC Hgb Hct MCV MCH MCHC RDW Plt Count MPV Immature Gran % (Auto) Neut % (Auto) Lymph % (Auto) [place] % (Auto) Eos % (Auto) Baso % (Auto) Lymph # (Auto) [place] # (Auto) Eos # (Auto) Baso # (Auto) Abs Immat Gran (auto) Absolute Neuts (auto) Absolute Nucleated RBC Total Counted Neutrophils % (Manual) Band Neutrophils % Lymphocytes % (Manual) Monocytes % (Manual) Nucleated RBC % Abs Neuts (Manual) Abs Lymphs (Manual) Abs Monocytes (Manual) Nucleated RBCs Platelet Estimate Large Platelets Schistocytes Sodium Potassium Chloride Carbon Dioxide Anion Gap BUN Creatinine Estim Creat Clear Calc Estimated GFR Glucose POC Capillary Glucose 159 H Calcium Phosphorus Magnesium Total Bilirubin AST ALT Alkaline Phosphatase Total Protein Albumin TOOTIE Screen [place]/Lambda Ratio Free [place] Light Chains Free Lambda Light Chain Quality VTE Prophylaxis VTE prophylaxis: pharmacologic ordered
[2024-03-14 12:15] LABS: Glucose Point of Care 178 mg/dl (65-105)
[2024-03-14] MEDS: ONDANSETRON INJ 4 MG/2 ML VIAL IV PUSH (12:37)
[2024-03-14] MEDS: AZITHROMYCIN 250 MG TABLET 500 MG PO (16:45)
[2024-03-14 16:59] LABS: Glucose Point of Care 143 mg/dl (65-105)
[2024-03-14] MEDS: GENTAMICIN SULFATE 0.1% CR 15 GM TUBE 1 APPLIC TOPICAL (19:12)
[2024-03-14 19:53] LABS: Glucose Point of Care 172 mg/dl (65-105)
[2024-03-14] MEDS: NORTRIPTYLINE HCL 25 MG CAPSULE 50 MG PO (21:37)
[2024-03-14 22:33] LABS: Immunofixation, Serum Normal pattern.
[2024-03-15] VITALS (30 sets, daily range): BP systolic 93–133; BP diastolic 71–102; PULSE 93–108; RESP 13–23; TEMP 36.3–36.9; O2SAT 90–98
[2024-03-15] MEDS: IPRATROPIUM 0.5 MG/ALBUTEROL SULFATE 2.5 MG AMPUL.NEB 3 ML INHALATION ×4 (01:57→20:30)
[2024-03-15 06:45] LABS: Basophils Absolute Auto 0.1 K/mm3 (0.0-0.1); Basophils Percent Auto 0.2 % (0.2-1.2); Eosinophils Percent Auto 0.1 % (0-4.4); Hematocrit 47.2 % (42.0-52.0); Hemoglobin 15.1 g/dL (14.0-18.0); Immature Granulocyte Absolute 0.37 K/mm3 (0.00-0.031); Immature Granulocyte Percent A 1.3 % (0-0.5); Lymphocytes Absolute Auto 4.22 K/mm3 (0.9-3.2); Lymphocytes Percent Auto 14.5 % (18.3-44.2); Mean Corpuscular Hemoglobin 32.3 pg (26-34); Mean Corpuscular Volume 101.1 fl (80-100); Mean Platelet Volume 9.3 fl (7.4-10.4); Monocytes Absolute Auto 2.9 K/mm3 (0.1-0.6); Monocytes Percent Auto 9.9 % (2.6-8.5); Neutrophils Absolute Auto 21.6 K/mm3 (1.3-6.7); Platelet Count Result 421 k/mm3 (150-375); Red Blood Count 4.67 M/mm3 (4.6-6.20); Red Cell Distribution Width 13.7 % (11.5-14.5); White Blood Count 29.1 K/mm3 (4.5-10.0)
[2024-03-15 06:59] LABS: Albumin Level 3.8 g/dL (3.5-5.1); Anion Gap 16 mmol/L (4-12); Blood Urea Nitrogen 70 mg/dL (9-20); Carbon Dioxide 26 mmol/L (22-30); Chloride 93 mmol/L (98-107); Estimated CRCL calculation 8 ml/min; Estimated Glomerular Filt Rate 5; Glucose 133 mg/dL (65-110); Phosphorus 5.7 mg/dL (2.5-4.5); Potassium 3.3 mmol/L (3.4-5.0); Sodium 135 mmol/L (137-145)
[2024-03-15] MEDS: HEPARIN SODIUM 5,000 UNITS/ML VIAL 5000 UNITS SUB-Q ×3 (08:24→19:46)
[2024-03-15] MEDS: CALCIUM ACETATE 667 MG TABLET 2668 MG PO ×3 (08:24→16:53)
[2024-03-15] MEDS: FERRIC CITRATE 210 MG PO ×3 (08:25→16:58)
[2024-03-15] MEDS: IRON PO ×3 (08:25→16:58)
[2024-03-15] MEDS: busPIRone HCL 10 MG TABLET BY MOUTH ×3 (08:26→16:53)
[2024-03-15] MEDS: ESCITALOPRAM OXALATE 10 MG TABLET PO (08:26)
--- NOTE | 2024-03-15 08:26 | P.PNNP_ITS ---
Progress Note: A&P Assessment and Plan (1) End stage renal disease: Code(s): N18.6 - End stage renal disease Status: Chronic Assessment and Plan: * continue nightly CCPD * s/p 24 hour sessions of PD x 3 days (03/10, 03/11, and 03/12) with aggressive ultrafiltration/fluid removal * follow electrolytes, volume status, and clearance (2) Acute hypercapnic respiratory failure: Code(s): J96.02 - Acute respiratory failure with hypercapnia Status: Acute Assessment and Plan: * multifactorial etiology: * volume overload * pneumonia * influenza * questionable COPD * empiric antibiotics * on steroids * follow cultures - negative to date * high flow oxygen therapy during the day and BiPAP at night * follow respiratory status (3) Fluid overload: Qualifiers: Hypervolemia type: unspecified Qualified Code(s): E87.70 - Fluid overload, unspecified Code(s): E87.70 - Fluid overload, unspecified Status: Acute Assessment and Plan: * clinical improvement noted * as noted on presentation * s/p aggressive ultrafiltation/fluid removal with PD x 3 days (24 hour treatments) * almost 12 - 13L negative since admission * continue fluid and salt restriction (4) Influenza A: Code(s): J10.1 - Influenza due to other identified influenza virus with other respiratory manifestations Status: Acute Assessment and Plan: * positive testing noted * s/p Tamiflu 30 mg x 1 dose * respiratory isolation * supportive therapy (5) Hyponatremia: Code(s): E87.1 - Hypo-osmolality and hyponatremia Status: Acute Assessment and Plan: * resolved * related to ESRD and increased free water intake + volume overload * on fluid restriction and fluid removal with PD (6) HTN (hypertension): Code(s): I10 - Essential (primary) hypertension Status: Chronic Assessment and Plan: * despite known history, relative hypotension at this time * suspect low BP due to aggressive fluid removal/ultrafiltration with PD * BP medications with parameters * follow trend of hemodynamics Will continue to follow. L Subjective Date/time seen: 03/15/24 08:26 Interval history: Follow-up for end stage renal disease on peritoneal dialysis. Tolerated peritoneal dialysis treatment overnight without any issues or problems (CCPD supervised and seen at 8:15AM); no other events overnight or earlier this morning; no apparent distress voiced; states breathing/respiratory status is doing better although he remains on Airvo (30 - 35L flow rate). Exam 2 Narrative: General: male who appears older than stated age in NAD Heart: normal S1 and S2; no rub Lungs: coarse with a few wheezes Abdomen: soft, nontender, nondistended, positive bowel sounds Extremities: no cyanosis or clubbing; trace edema Skin: no rash Objective Data Vital Signs Vital Signs: Vital Signs Temp Pulse Resp BP Pulse Ox O2 Del Method O2 Flow Rate 03/15/24 07:19 98.5 F 93 23 H 93/80 L 03/15/24 06:00 93 03/15/24 04:07 98.5 F 95 23 H 93/80 L 90 03/15/24 04:00 93 23 H 90 High Flow Therapy with Na 30 03/15/24 04:00 96 03/15/24 02:05 97 16 03/15/24 02:00 100 03/15/24 01:57 93 19 03/15/24 00:23 98.5 F 98 21 H 94/71 L 94 03/15/24 00:00 100 03/15/24 00:00 98 21 H 94 High Flow Therapy with Na 30 03/14/24 22:00 102 H 03/14/24 20:39 99 High Flow Therapy with Na 35 03/14/24 20:39 104 H 16 03/14/24 20:27 103 H 16 03/14/24 20:06 98.4 F 103 H 22 H 123/91 H 99 03/14/24 20:00 104 H 03/14/24 20:00 104 H 16 99 High Flow Therapy with Na 30 03/14/24 18:00 100 03/14/24 16:00 98.4 F 109 H 18 114/95 H 96 03/14/24 16:00 98 17 97 High Flow Therapy with Na 35 03/14/24 16:00 99 03/14/24 14:44 103 H 18 03/14/24 14:30 104 H 20 03/14/24 14:00 62 03/14/24 12:00 98.1 F 104 H 25 H 129/98 H 96 03/14/24 12:00 104 H 03/14/24 12:00 101 H 18 95 High Flow Therapy with Na 35 03/14/24 10:00 106 H Intake/Output Intake/Output: Intake & Output 03/12/24 03/13/24 03/14/24 03/15/24 23:59 23:59 23:59 23:59 Intake Total 1515 2540 2740 70 Output Total 6510 1163 1011 4403 Balance -5068 1377 5394 -8298 Meds/Results Medications: Active Medications Generic Name Dose Route Start Last Admin Trade Name Freq PRN Reason Stop Dose Admin Acetaminophen 650 mg 03/09/24 18:43 03/14/24 21:37 Acetaminophen 325 Mg Tablet PO 650 mg Q4H PRN Administration Mild Pain (1-3) or Fever Albuterol/Ipratropium 3 ml 03/11/24 02:00 03/15/24 01:57 Ipratropium 0.5 Mg/Albuterol Sulfate 2.5 Mg Ampul.Neb 3 Ml INHALATION 3 ml Q6HRT CARIDAD Administration Albuterol/Ipratropium 3 ml 03/11/24 00:48 Ipratropium 0.5 Mg/Albuterol Sulfate 2.5 Mg Ampul.Neb 3 Ml INHALATION Q2HRT PRN Shortness Of Breath Or Wheezing Azithromycin 500 mg 03/13/24 17:00 03/14/24 16:45 Azithromycin 250 Mg Tablet PO 03/17/24 17:01 500 mg DAILY@1700 CARIDAD Administration Buspirone HCl 10 mg 03/10/24 09:00 03/15/24 08:26 Buspirone Hcl 10 Mg Tablet BY MOUTH 10 mg TID CARIDAD Administration Calcium Acetate 2,668 mg 03/10/24 08:00 03/15/24 08:24 Calcium Acetate 667 Mg Tablet PO 2,668 mg TIDWM CARIDAD Administration Calcium Carbonate 200 mg 03/09/24 23:10 Calcium Carbonate (Tums) 500 Mg (200 Mg Elemental) PO HS PRN Indigestion Cinacalcet 90 mg 03/10/24 09:00 03/14/24 08:10 Cinacalcet 30 Mg Tablet PO 90 mg DAILY CARIDAD Administration Dextrose 12.5 gm 03/12/24 11:41 Dextrose 50% 25 Gm/50 Ml Syringe IV PUSH PRN PRN Hypoglycemia Protocol Diphenoxylate HCl/Atropine 1 tablet 03/12/24 11:39 Diphenoxylate/Atropine (*Crx) 2.5 Mg Tablet PO QID PRN Diarrhea Escitalopram Oxalate 10 mg 03/10/24 09:00 03/15/24 08:26 Escitalopram Oxalate 10 Mg Tablet PO 10 mg DAILY CARIDAD Administration Gentamicin Sulfate 1 applic 03/09/24 21:00 03/14/24 19:12 Gentamicin Sulfate 0.1% Cr 15 Gm Tube TOPICAL 1 applic QHS CARIDAD Administration Glucagon 1 mg 03/12/24 11:41 Glucagon For Inj 1 Mg Vial IM PRN PRN Hypoglycemia Protocol Glucose 15 gm 03/12/24 11:41 Glucose Oral Gel 15 Gm Of Glucse In 37.5 Gm Tube PO PRN PRN Hypoglycemia Protocol Heparin Sodium (Porcine) 5,000 units 03/10/24 14:00 03/15/24 08:24 Heparin Sodium 5,000 Units/Ml Vial SUB-Q 5,000 units Q8HR CARIDAD Administration Hydralazine HCl 10 mg 03/11/24 11:03 03/11/24 21:31 Hydralazine Hcl 20 Mg/Ml Vial IV PUSH 10 mg Q4H PRN Administration Blood Pressure - High Ceftriaxone Sodium 2 gm in 100 mls @ 200 mls/hr 03/11/24 10:00 03/15/24 08:27 Rocephin 2 Gm/Ns 100 Ml IVPB 03/17/24 09:29 200 mls/hr DAILY CARIDAD Administration Dextrose 1,000 mls @ 100 mls/hr 03/12/24 11:41 Dextrose 5% 1,000 Ml IVPB PRN PRN Hypoglycemia Protocol Insulin Aspart 3 - 6 units 03/12/24 12:00 03/14/24 16:49 Insulin Aspart (*Bkc) 100 Units/Ml SUB-Q Not Given TIDWM [facility] Protocol Insulin Aspart 1 - 3 units 03/12/24 21:00 03/14/24 21:04 Insulin Aspart (*Bkc) 100 Units/Ml SUB-Q Not Given HS CARIDAD Protocol Labetalol HCl 100 mg 03/10/24 09:00 03/12/24 09:00 Labetalol Hcl 100 Mg Tablet PO Not Given Q12HR CARIDAD Melatonin 20 mg 03/10/24 21:00 03/10/24 20:33 Melatonin 5 Mg Tablet PO 20 mg QHS CARIDAD Administration Melatonin 5 mg 03/13/24 19:50 03/13/24 21:13 Melatonin 5 Mg Tablet PO 5 mg HS PRN Administration Insomnia Methylprednisolone Sodium Succinate 40 mg 03/15/24 09:00 03/15/24 08:27 Methylprednisolone Sod Succ 40 Mg Vial IV PUSH 03/19/24 08:59 40 mg QAM CARIDAD Administration Metolazone 5 mg 03/10/24 09:00 03/12/24 09:00 Metolazone 5 Mg Tablet PO Not Given DAILY [facility] *Home Med*Ferric 0 mg 03/10/24 08:00 03/15/24 08:25 Citrate [Auryxia] PO 04/09/24 07:59 840 mg 210 Mg Iron Tablet TIDWM CARIDAD Administration Nortriptyline HCl 50 mg 03/10/24 21:00 03/14/24 21:37 Nortriptyline Hcl 25 Mg Capsule PO 50 mg QHS CARIDAD Administration Ondansetron HCl 4 mg 03/09/24 18:43 03/14/24 12:37 Ondansetron Inj 4 Mg/2 Ml Vial IV PUSH 4 mg Q4H PRN Administration Nausea Pantoprazole Sodium 40 mg 03/10/24 09:00 03/10/24 08:14 Pantoprazole 40 Mg Tablet PO 40 mg QAM CARIDAD Administration Pantoprazole Sodium 40 mg 03/11/24 09:00 03/15/24 08:27 Pantoprazole Sodium Iv 40 Mg Vial IV PUSH 40 mg QAM CARIDAD Administration Torsemide 100 mg 03/11/24 17:00 03/12/24 09:00 Torsemide 20 Mg Tablet PO Not Given BID [facility] Radiology Results: ITS Impressions Chest X-Ray 03/13/24 05:51 Impression: Possible mild central pulmonary venous congestive change. Labs Labs: Laboratory Tests 03/15/24 06:38 03/15/24 06:38 Calcium 9.0 Phosphorus 5.7 H Albumin 3.8
[2024-03-15] MEDS: cefTRIAXone 2 GM/NS 100 ML 2 GM/100 ML BAG IVPB (08:27)
[2024-03-15] MEDS: methylPREDNISolone SOD SUCC 40 MG VIAL IV PUSH (08:27)
[2024-03-15] MEDS: PANTOPRAZOLE SODIUM IV 40 MG VIAL IV PUSH (08:27)
[2024-03-15] MEDS: ONDANSETRON INJ 4 MG/2 ML VIAL IV PUSH ×2 (09:15→16:53)
--- NOTE | 2024-03-15 09:25 | PM.IMPN ---
Progress Note: A&P Assessment and Plan (1) Acute hypercapnic respiratory failure: Code(s): J96.02 - Acute respiratory failure with hypercapnia Status: Acute Assessment and Plan: Acute hypercapnic respiratory failure likely related to volume overload, influenza A pneumonia, questionable COPD as patient has a history of tobacco use and currently smokes marijuana -03/11: Transferred from medical floor to ICU for hypoxic and hypercapnic respiratory failure, wheezing, volume overload, possible pneumonia -03/09: Influenza A positive -continue fluid removal with peritoneal dialysis -s continue course ceftriaxone and vancomycin -continue Tamiflu -wean oxygen -decrease steroids -tolerating high-flow nasal cannula which will be continued -incentive spirometry, up in chair (2) End-stage renal disease on peritoneal dialysis: Code(s): N18.6 - End stage renal disease; Z99.2 - Dependence on renal dialysis Status: Acute Assessment and Plan: End-stage renal disease on peritoneal dialysis -nephrology follow -PD schedule per supervisor home restoration service -patient also is on torsemide, metolazone at home, will continue -good fluid removal with peritoneal dialysis, wrinkling of the lower extremities noted, -patient on fluid restriction per supervisor home restoration service (3) Fluid overload: Qualifiers: Hypervolemia type: unspecified Qualified Code(s): E87.70 - Fluid overload, unspecified Code(s): E87.70 - Fluid overload, unspecified Status: Acute Assessment and Plan: Likely related to incomplete peritoneal dialysis at home -continue PD per supervisor home restoration service -improved (4) HTN (hypertension): Code(s): I10 - Essential (primary) hypertension Status: Chronic Assessment and Plan: Essential hypertension, hold amlodipine, labetalol and blood pressures are within normal limits for now NT p.r.n. hydralazine (5) Polyneuropathy: Code(s): G62.9 - Polyneuropathy, unspecified Status: Acute Assessment and Plan: Off gabapentin since patient has been having tremor-like/asterixis movements -continue nortriptyline (6) Influenza A: Code(s): J10.1 - Influenza due to other identified influenza virus with other respiratory manifestations Status: Acute Assessment and Plan: Continue Tamiflu (7) Electrolyte abnormality: Code(s): E87.8 - Other disorders of electrolyte and fluid balance, not elsewhere classified Status: Acute Assessment and Plan: Replace low potassium Plan DVT prophylaxis: Heparin SQ Stress ulcer prophylaxis: Protonix Nutrition: Diet ordered Code Status: Full code Subjective Date/time seen: 03/15/24 Slept well overnight. He continues to be on Airvo at 35 L and 50% FiO2. His breathing is better. He denies any cough. He denies any pain. He denies any abdominal pain. He is tolerating p.o. diet. No nausea vomiting. He does have cough which is mostly dry. He denied any fever. He had his PD again last night. He is afebrile Review of Systems Review of Systems: All systems reviewed & are unremarkable except as noted in HPI and below Exam Narrative: General: Patient appears older than his stated age, currently in no acute distress HEENT:? Pupils equal and reactive, sclerae is clear, on high-flow nasal cannulae Respiratory:? Better air entry in all lung zones, no wheezing, coarse breath sounds at bases, adequate air entry Cardiac:? S1-S2 is normal, slight tachycardia with heart rates in the 100-110 Abdomen:? Soft, nontender, protuberant, decreased bowel sounds, peritoneal dialysis catheter in place, area surrounding is clean, dry and intact no tenderness to palpation Extremities:? Bilateral upper and lower extremity edema much improved, lower extremity wrinkling of the skin is noted but edema is improved, palpable pedal pulses, Neuro:? Patient is awake, alert, able to answer questions and follows simple commands in all extremities Skin:? Chronic venous stasis change Psych:? Normal mentation, flat affect Objective Data Vital Signs Vital Signs: Vital Signs - 24 hr 03/14/24 10:00 03/14/24 12:00 03/14/24 12:00 Temperature Pulse Rate 106 H 101 H 104 H Respiratory Rate 18 Blood Pressure Pulse Oximetry 95 Oxygen Delivery High Flow Therapy with Na Oxygen Flow Rate 35 Fraction of Inspired Oxygen 50 03/14/24 12:00 03/14/24 14:00 03/14/24 14:30 Temperature 36.7 C Pulse Rate 104 H 62 104 H Respiratory Rate 25 H 20 Blood Pressure 129/98 H Pulse Oximetry 96 Oxygen Delivery Oxygen Flow Rate Fraction of Inspired Oxygen 03/14/24 14:44 03/14/24 16:00 03/14/24 16:00 Temperature Pulse Rate 103 H 99 98 Respiratory Rate 18 17 Blood Pressure Pulse Oximetry 97 Oxygen Delivery High Flow Therapy with Na Oxygen Flow Rate 35 Fraction of Inspired Oxygen 50 03/14/24 16:00 03/14/24 18:00 03/14/24 20:00 Temperature 36.9 C Pulse Rate 109 H 100 104 H Respiratory Rate 18 16 Blood Pressure 114/95 H Pulse Oximetry 96 99 Oxygen Delivery High Flow Therapy with Na Oxygen Flow Rate 30 Fraction of Inspired Oxygen 50 03/14/24 20:00 03/14/24 20:06 03/14/24 20:27 Temperature 36.9 C Pulse Rate 104 H 103 H 103 H Respiratory Rate 22 H 16 Blood Pressure 123/91 H Pulse Oximetry 99 Oxygen Delivery Oxygen Flow Rate Fraction of Inspired Oxygen 03/14/24 20:39 03/14/24 20:39 03/14/24 22:00 Temperature Pulse Rate 104 H 102 H Respiratory Rate 16 Blood Pressure Pulse Oximetry 99 Oxygen Delivery High Flow Therapy with Na Oxygen Flow Rate 35 Fraction of Inspired Oxygen 50 03/15/24 00:00 03/15/24 00:00 03/15/24 00:23 Temperature 36.9 C Pulse Rate 98 100 98 Respiratory Rate 21 H 21 H Blood Pressure 94/71 L Pulse Oximetry 94 94 Oxygen Delivery High Flow Therapy with Na Oxygen Flow Rate 30 Fraction of Inspired Oxygen 50 03/15/24 01:57 03/15/24 02:00 03/15/24 02:05 Temperature Pulse Rate 93 100 97 Respiratory Rate 19 16 Blood Pressure Pulse Oximetry Oxygen Delivery Oxygen Flow Rate Fraction of Inspired Oxygen 03/15/24 04:00 03/15/24 04:00 03/15/24 04:07 Temperature 36.9 C Pulse Rate 96 93 95 Respiratory Rate 23 H 23 H Blood Pressure 93/80 L Pulse Oximetry 90 90 Oxygen Delivery High Flow Therapy with Na Oxygen Flow Rate 30 Fraction of Inspired Oxygen 50 03/15/24 06:00 03/15/24 07:19 Temperature 36.9 C Pulse Rate 93 93 Respiratory Rate 23 H Blood Pressure 93/80 L Pulse Oximetry Oxygen Delivery Oxygen Flow Rate Fraction of Inspired Oxygen Intake/Output Intake/Output: Intake & Output 03/12/24 03/13/24 03/14/24 03/15/24 23:59 23:59 23:59 23:59 Intake Total 5064 9700 2740 70 Output Total 6510 1163 [phone] [facility] [phone] Meds/Results Medications: Active Medications Generic Name Dose Route Start Last Admin Trade Name Freq PRN Reason Stop Dose Admin Acetaminophen 650 mg 03/09/24 18:43 03/14/24 21:37 Acetaminophen 325 Mg Tablet PO 650 mg Q4H PRN Administration Mild Pain (1-3) or Fever Albuterol/Ipratropium 3 ml 03/11/24 02:00 03/15/24 01:57 Ipratropium 0.5 Mg/Albuterol Sulfate 2.5 Mg Ampul.Neb 3 Ml INHALATION 3 ml Q6HRT CARIDAD Administration Albuterol/Ipratropium 3 ml 03/11/24 00:48 Ipratropium 0.5 Mg/Albuterol Sulfate 2.5 Mg Ampul.Neb 3 Ml INHALATION Q2HRT PRN Shortness Of Breath Or Wheezing Azithromycin 500 mg 03/13/24 17:00 03/14/24 16:45 Azithromycin 250 Mg Tablet PO 03/17/24 17:01 500 mg DAILY@1700 CARIDAD Administration Buspirone HCl 10 mg 03/10/24 09:00 03/15/24 08:26 Buspirone Hcl 10 Mg Tablet BY MOUTH 10 mg TID CARIDAD Administration Calcium Acetate 2,668 mg 03/10/24 08:00 03/15/24 08:24 Calcium Acetate 667 Mg Tablet PO 2,668 mg TIDWM CARIDAD Administration Calcium Carbonate 200 mg 03/09/24 23:10 Calcium Carbonate (Tums) 500 Mg (200 Mg Elemental) PO HS PRN Indigestion Cinacalcet 90 mg 03/10/24 09:00 03/14/24 08:10 Cinacalcet 30 Mg Tablet PO 90 mg DAILY CARIDAD Administration Dextrose 12.5 gm 03/12/24 11:41 Dextrose 50% 25 Gm/50 Ml Syringe IV PUSH PRN PRN Hypoglycemia Protocol Diphenoxylate HCl/Atropine 1 tablet 03/12/24 11:39 Diphenoxylate/Atropine (*Crx) 2.5 Mg Tablet PO QID PRN Diarrhea Escitalopram Oxalate 10 mg 03/10/24 09:00 03/15/24 08:26 Escitalopram Oxalate 10 Mg Tablet PO 10 mg DAILY CARIDAD Administration Gentamicin Sulfate 1 applic 03/09/24 21:00 03/14/24 19:12 Gentamicin Sulfate 0.1% Cr 15 Gm Tube TOPICAL 1 applic QHS CARIDAD Administration Glucagon 1 mg 03/12/24 11:41 Glucagon For Inj 1 Mg Vial IM PRN PRN Hypoglycemia Protocol Glucose 15 gm 03/12/24 11:41 Glucose Oral Gel 15 Gm Of Glucse In 37.5 Gm Tube PO PRN PRN Hypoglycemia Protocol Heparin Sodium (Porcine) 5,000 units 03/10/24 14:00 03/15/24 08:24 Heparin Sodium 5,000 Units/Ml Vial SUB-Q 5,000 units Q8HR CARIDAD Administration Hydralazine HCl 10 mg 03/11/24 11:03 03/11/24 21:31 Hydralazine Hcl 20 Mg/Ml Vial IV PUSH 10 mg Q4H PRN Administration Blood Pressure - High Ceftriaxone Sodium 2 gm in 100 mls @ 200 mls/hr 03/11/24 10:00 03/15/24 08:27 Rocephin 2 Gm/Ns 100 Ml IVPB 03/17/24 09:29 200 mls/hr DAILY CARIDAD Administration Dextrose 1,000 mls @ 100 mls/hr 03/12/24 11:41 Dextrose 5% 1,000 Ml IVPB PRN PRN Hypoglycemia Protocol Insulin Aspart 3 - 6 units 03/12/24 12:00 03/15/24 09:21 Insulin Aspart (*Bkc) 100 Units/Ml SUB-Q Not Given TIDWM CARIDAD Protocol Insulin Aspart 1 - 3 units 03/12/24 21:00 03/14/24 21:04 Insulin Aspart (*Bkc) 100 Units/Ml SUB-Q Not Given HS CARIDAD Protocol Labetalol HCl 100 mg 03/10/24 09:00 03/12/24 09:00 Labetalol Hcl 100 Mg Tablet PO Not Given Q12HR CARIDAD Melatonin 20 mg 03/10/24 21:00 03/10/24 20:33 Melatonin 5 Mg Tablet PO 20 mg QHS CARIDAD Administration Melatonin 5 mg 03/13/24 19:50 03/13/24 21:13 Melatonin 5 Mg Tablet PO 5 mg HS PRN Administration Insomnia Methylprednisolone Sodium Succinate 40 mg 03/15/24 09:00 03/15/24 08:27 Methylprednisolone Sod Succ 40 Mg Vial IV PUSH 03/19/24 08:59 40 mg QAM CARIDAD Administration Metolazone 5 mg 03/10/24 09:00 03/12/24 09:00 Metolazone 5 Mg Tablet PO Not Given DAILY CARIDAD *Home Med*Ferric 0 mg 03/10/24 08:00 03/15/24 08:25 Citrate [Auryxia] PO 04/09/24 07:59 840 mg 210 Mg Iron Tablet TIDWM CARIDAD Administration Nortriptyline HCl 50 mg 03/10/24 21:00 03/14/24 21:37 Nortriptyline Hcl 25 Mg Capsule PO 50 mg QHS CARIDAD Administration Ondansetron HCl 4 mg 03/09/24 18:43 03/15/24 09:15 Ondansetron Inj 4 Mg/2 Ml Vial IV PUSH 4 mg Q4H PRN Administration Nausea Pantoprazole Sodium 40 mg 03/10/24 09:00 03/10/24 08:14 Pantoprazole 40 Mg Tablet PO 40 mg QAM CARIDAD Administration Pantoprazole Sodium 40 mg 03/11/24 09:00 03/15/24 08:27 Pantoprazole Sodium Iv 40 Mg Vial IV PUSH 40 mg QAM CARIDAD Administration Torsemide 100 mg 03/11/24 17:00 03/12/24 09:00 Torsemide 20 Mg Tablet PO Not Given BID [facility] Radiology Results: ITS Impressions Chest X-Ray 03/13/24 05:51 Impression: Possible mild central pulmonary venous congestive change. Labs Labs: Laboratory Results - last 24 hr 03/10/24 03/14/24 03/14/24 09:40 12:05 16:49 WBC RBC Hgb Hct MCV MCH MCHC RDW Plt Count MPV Immature Gran % (Auto) Neut % (Auto) Lymph % (Auto) [place] % (Auto) Eos % (Auto) Baso % (Auto) Lymph # (Auto) [place] # (Auto) Eos # (Auto) Baso # (Auto) Abs Immat Gran (auto) Absolute Neuts (auto) Absolute Nucleated RBC Nucleated RBC % Sodium Potassium Chloride Carbon Dioxide Anion Gap BUN Creatinine Estim Creat Clear Calc Estimated GFR Glucose POC Capillary Glucose 178 H 143 H Calcium Phosphorus Albumin Serum Immunofixation Normal pattern. 03/14/24 03/15/24 19:51 06:38 WBC 29.1 H RBC 4.67 Hgb 15.1 Hct 47.2 MCV 101.1 H MCH 32.3 MCHC 32.0 RDW 13.7 Plt Count 421 H MPV 9.3 Immature Gran % (Auto) 1.3 H Neut % (Auto) 74.0 H Lymph % (Auto) 14.5 L [place] % (Auto) 9.9 H Eos % (Auto) 0.1 Baso % (Auto) 0.2 Lymph # (Auto) 4.22 H [place] # (Auto) 2.9 H Eos # (Auto) 0.0 Baso # (Auto) 0.1 Abs Immat Gran (auto) 0.37 H Absolute Neuts (auto) 21.6 H Absolute Nucleated RBC 0.290 H Nucleated RBC % 1.0 H Sodium 135 L Potassium 3.3 L Chloride 93 L Carbon Dioxide 26 Anion Gap 16 H BUN 70 H D Creatinine 11.42 H Estim Creat Clear Calc 8 Estimated GFR 5 L Glucose 133 H POC Capillary Glucose 172 H Calcium 9.0 Phosphorus 5.7 H Albumin 3.8 Serum Immunofixation Quality VTE Prophylaxis VTE prophylaxis: pharmacologic ordered
[2024-03-15 09:28] LABS: Glucose Point of Care 131 mg/dl (65-105)
--- NOTE | 2024-03-15 10:38 | PC.NURSE ---
PT had vomitting episode and is drowsy. Would like to try PO potassium instead. Confirmed OK with Dr Huff
[2024-03-15] MEDS: POTASSIUM CHLORIDE 20 MEQ ER TABLET 40 MEQ PO (11:44)
[2024-03-15 11:51] LABS: Glucose Point of Care 135 mg/dl (65-105)
[2024-03-15 16:40] LABS: Glucose Point of Care 142 mg/dl (65-105)
[2024-03-15] MEDS: AZITHROMYCIN 250 MG TABLET 500 MG PO (16:53)
[2024-03-15] MEDS: MELATONIN 5 MG TABLET PO (19:46)
[2024-03-15] MEDS: NORTRIPTYLINE HCL 25 MG CAPSULE 50 MG PO (19:46)
[2024-03-15 20:37] LABS: Glucose Point of Care 170 mg/dl (65-105)
[2024-03-16] VITALS (23 sets, daily range): BP systolic 99–132; BP diastolic 72–98; PULSE 87–116; RESP 15–23; TEMP 36.4–36.6; O2SAT 91–100
[2024-03-16] MEDS: IPRATROPIUM 0.5 MG/ALBUTEROL SULFATE 2.5 MG AMPUL.NEB 3 ML INHALATION ×4 (02:19→21:08)
--- OUTSIDE RECORDS SUMMARY | 2024-03-16 03:51 | XMS_ITS | Data Portability ---
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 Plan of Treatment Reminders Order Date Submit Date Provider Last Modified By Organization Details Last Modified Time Details Appointments None record ed. Lab None record ed. Referral None record ed. Procedures None record ed. Surgeries None record ed. Imaging None record ed. Medication Orders None record ed. Patient TargetsNo targets recorded. Patient Instructions Encounter Date Encounter Id Patient Instructions Last Modified By Organization Details Last Modified Time 01/07/2023 [id number] we will work on getting a copy of his sinus CT report. An audiogram was ordered in the meantime [place] [id number] Not available 01/07/2023 15:13:48 Reason for Referral None Reported. Results Created Date Observation Date Name Description Value Unit Range Abnormal Flag Note LastModifiedBy Organization Detail LastModifiedTime 01/09/2012/12/2022 CT, sinus es, w/o contr ast No observ ation record ed. [place] [id number] [facility] [address], [place], [address], 01/11/2023 08:57:57 01/20/2012/12/2022 CT, sinus es, w/o contr ast No observ ation record ed. [place] [id number] [facility] [address], [place], [address], 01/19/2023 12:29:02 02/09/20 23 02/05/2023 audio gram + tympa nogra m No observ ation record ed. [address] [facility] [address] [place], [address], 02/09/2023 09:00:36 02/11/20 23 02/05/2023 audio gram + tympa nogra [place] [facility]. [facility] [address] [facility] [address], [place], [address], 02/19/2023 08:27:11 Result Notes None recorded. Problems Name Problem SNOMED Code Status Onset Date Resolution Date Notes Provider Name and Address Organization Details Recorded Time Sensorineural hearing loss 02955894 Active 2022 Rosey Pitts RN [facility], [facility] 15:10:08 Chronic pansinusitis 36242134 Active 2022 Brant Alvares MD [address] [place] [address], [facility] [address], [place], [address] [facility] 3 15:13:26 Problem Notes None recorded. Procedures Surgical History None recorded. Imaging Results Imaging Date Name Status LastModified by Organ [facility] Details LastModified Time 12/12/2022 CT, sinuses, w/o contrast completed [address] [facility], [place], [address], 01/11/2023 08:57:57 12/12/2022 CT, sinuses, w/o contrast completed [address], [place], [address], 01/19/2023 12:29:02 02/05/2023 audiogram + tympanogram completed [address] [facility] [address] [facility] [address], [place], [address], 02/09/2023 09:00:36 02/05/2023 audiogram + tympanogram completed [facility] [address] [facility] [address], [place], [address], 02/19/2023 08:27:11 Procedure Notes None recorded. Medical Equipment None Reported. Allergies No known drug allergies Medications Name Sig Start Date Stop Date Status Note LastModified by Organization Details LastModified Time amoxicillin 500 mg capsule TK FOUR CS PO 1 HOUR B DAPP 01/07 completed Not Available Not Available Not Available fluconazole 100 mg tablet TAKE 1 TABLET BY MOUTH EVERY DAY 01/07 completed Not Available Not Available Not Available doxycycline hyclate 100 mg capsule TAKE 1 CAPSULE BY MOUTH DAILY 01/07 completed Not Available Not Available Not Available labetalol 200 mg tablet TAKE 1 TABLET BY MOUTH TWICE DAILY active Not Available Not Available No t Available loperamide 2 mg capsule TAKE 1 CAPSULE BY MOUTH EVERY 6 HOURS NEEDED FOR LOOSE STOOL 01/07 completed Not Available Not Available Not Available azithromyci n 250 mg tablet 01/07 completed Not Available Not Available Not Available lisinopril 20 mg tablet TAKE 1 TABLET BY MOUTH DAILY 01/07 completed Not Available Not Available Not Available diphenoxyla te-atropine 2.5 mg-0.025 mg tablet TAKE 1 TABLET BY MOUTH UP TO FOUR TIMES DAILY 01/07 completed Not Available Not Available Not Available amlodipine 5 mg tablet TAKE 1 TABLET BY MOUTH EVERY DAY 01/07 completed Not Available Not Available Not Available triamcinolo ne acetonide 0.1 % topical cream APPLY TO THE AFFECTED AREA TWICE DAILY active Not Available Not Available No t Available potassium chloride ER 20 mEq tablet,exte nded release(par t/cryst) TAKE 1 TABLET BY MOUTH EVERY OTHER DAY 01/07 completed Not Available Not Available Not Available furosemide 80 mg tablet TAKE 1 TABLET BY MOUTH EVERY DAY IN THE MORNING active Not Available Not Available No t Available amlodipine 10 mg tablet TAKE 1 TABLET BY MOUTH DAILY active Not Available Not Available No t Available benzonatate 100 mg capsule TAKE 1 CAPSULE BY MOUTH THREE TIMES DAILY NEEDED FOR COUGH 01/07 completed Not Available Not Available Not Available nystatin 100,000 unit/gram topical cream APPLY TOPICALLY TO THE AFFECTED AREA DAILY 01/07 completed Not Available Not Available Not Available prednisone 50 mg tablet TAKE 1 TABLET BY MOUTH DAILY 01/07 completed Not Available Not Available Not Available gabapentin 300 mg capsule TAKE 1 CAPSULE BY MOUTH THREE TIMES DAILY 01/07 completed Not Available Not Available Not Available gentamicin 0.1 % topical cream APPLY TO EXIT SITE DAILY 01/07 completed Not Available Not Available Not Available gabapentin 100 mg capsule TAKE 1 CAPSULE BY MOUTH THREE TIMES DAILY 01/07 completed Not Available Not Available Not Available labetalol 100 mg tablet TAKE 1 TABLET BY MOUTH TWICE DAILY 01/07 completed Not Available Not Available Not Available albuterol sulfate HFA 90 mcg/actuati on aerosol inhaler INHALE 1 PUFF BY MOUTH FOUR TIMES DAILY NEEDED FOR SHORTNESS OF BREATH OR WHEEZING active Not Available Not Available No t Available hydroxyzine HCl 10 mg tablet TAKE 1 TABLET BY MOUTH AT BEDTIME 01/07 completed Not Available Not Available Not Available ondansetron 4 mg disintegrat ing tablet DISSOLVE ONE TABLET BY MOUTH EVERY 8 HOURS NEEDED 01/07 completed Not Available Not Available Not Available nicotine 7 mg/24 hr daily transdermal patch APPLY 1 PATCH TOPICALLY TO THE SKIN DAILY 01/07 completed Not Available Not Available Not Available escitalopra m 10 mg tablet TAKE 1 TABLET BY MOUTH DAILY active Not Available Not Available No t Available calcium acetate(tracy sphate binders) 667 mg capsule TAKE 4 CAPSULES BY MOUTH THREE TIMES DAILY WITH MEALS 01/07 completed Not Available Not Available Not Available melatonin active Not Available Not Kiana ilable Not Available Vitamin C active Not Available Not Kiana ilable Not Available vitamin A active Not Available Not Kiana ilable Not Available cinacalcet active Not Available Not Av ailable Not Available calcium acetate 667 mg tablet Take by oral route. active Not Available Not Available No t Available Vitals Date Recorded Body weight Body mass index (BMI) Body height Body temperature Provider Name and Address Organization Details Last Updated DateTime 01/07/2023 666231.12 g 33.1 kg/m2 177.8 cm 97.6 [degF] Rosey Pitts RN [facility] 01/07/2023 14:57:57 Social History Question Answer Notes LastModified by Organizat ion Details LastModified Time Tobacco Smoking Status Current Every Day Smoker DYLAN [place], [place] [facility] 12/16/2022 15:44:12 What Is Your Level Of Alcohol Consumption? Occasional [email or web address] Information not available 12/16/2022 Sex: Unknown Functional Status None recorded. Mental Status None recorded. Family History Relationship Description Onset Age of this Age Resolved Age Notes LastModified by Organization Details LastModified Time Father No current problems or disability [email or web address] Not available 12/16 15:43:44 Mother No current problems or disability [email or web address] Not available 12/16 15:43:44 Medical History Condition Response MRSA N LUNG DISEASE/DISORDER N HISTORY OF DRUG ABUSE N COPD N RADIATION / CHEMOTHERAPY N BLOOD DISEASES N EAR OR HEARING PROBLEMS N SHINGLES N DEPRESSION (INCLUDING POST ) N FAILED BACK SYNDROME N STROKE/TIA N OBESITY N ANEURYSM N Do you have Advance directive? N USE OF BLOOD THINNERS N PARATHYROID DISEASE N ARTERIAL INSUFFICIENCY N CHF N AIDS/HIV N HYPERTENSION Y TOURETTE'S N BLOOD TRANSFUSION N ANEMIA/BLOOD DISORDER N CHRONIC EAR INFECTIONS N TUBERCULOSIS N ALLERGIES/HAYFEVER N BACK INJECTIONS N ESRD N INSOMNIA N HIGH CHOLESTEROL / HYPERLIPIDEMIA N HYPERTHYROIDISM N PVD N HYPOTHYROIDISM N BACK / NECK PROBLEMS N HAVE YOU BEEN HOSPITALIZED OR SEEN IN [facility] ER IN THE PAST YEAR ? N POLYCYSTIC OVARIES N HISTORY WITH COMPLICATIONS WITH ANESTHES IA ? N NO SIGNIFICANT PAST MEDICAL HISTORY N DIABETES, TYPE N VON WILLIBRAND'S DISEASE N ENT N SEASONAL ALLERGIES N HEARTBURN / REFLUX N POST LAMINECTOMY SYNDROME N HEPATITIS / LIVER DISEASE N SLEEP DISORDER N SEIZURES/EPILEPSY N HEADACHES/MIGRAINES N PACEMAKER N DIZZINESS N HEART DISEASE/HEART PROBLEMS N NEUROPSYCHOLOGICAL N CANCER: SPECIFY Y ANESTHESIA COMPLICATIONS N ATRIAL FIBRILLATION N AUTOIMMUNE DISEASE N Past Encounters Encounter ID Performer Location Encounter Start Date Encounter Closed Date Diagnosis/Indication Diagnosis SNOMED-CT Code Diagnosis ICD10 Code Diagnosis Note [id number] Brant Alvares MD [facility] [address] [place] [address] 01/07/2023 14:50:41 01/07/2023 15:11:16 Sensorineural hearing loss 09991185 H90.5 Chronic pansinusitis 888 67083 J32.4 Health Concerns Section Related Observation LastModified by Organization Detai ls LastModified Time None Recorded Concern Status LastModified by Organization Details LastModified Time None Recorded Advance Directives Directive None Recorded Payers Encounter Date Sequence Insurance Name Policy Number Policy Patel Covered Member ID Patel Member ID Guarantor Name 01/07/2023 1 [place] Saul Rolon [id number] Real Rolon 01/07/2023 2 [place] [employer] [place] [employer] Real Guerinbeth [id number] Real Gonzales Notes Date Note Type Note Provider Name and Address Organization Details Recorded Time 01/07/2023 text/html this patient reports that he has had ear congestion and decreased hearing in the left ear for a couple of months which is now affecting the right he thinks his hearing is probably okay. He has been dizzy at times. He had either CT or an MRI which evidently revealed pansinusitis. We do not have a report at this time. Brant Alvares MD [address] [place] [address], [place] [address], [place], [address], [place] [facility] 01/07/2023 15:14:08
--- OUTSIDE RECORDS SUMMARY | 2024-03-16 04:09 | XMS_ITS ---
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
--- OUTSIDE RECORDS SUMMARY | 2024-03-16 04:09 | XMS_ITS | Clinical Summary ---
Author Organization [facility] Address [facility] [place] [address] [place] [address] Care Team Providers Care Echo Technician Name Role Phone None, Provider MD Primary Care Provider Unavaila ble Allergies No known active allergies Medications albuterol sulfate HFA 108 (90 Base) MCG/ACT inhaler Inhale 2 puffs into the lungs every 4 (four) hours as needed. Active ALPRAZolam (XANAX) 0.5 MG tablet Take 1 tablet (0.5 mg total) by mouth 2 (two) times daily as needed. FOR ANXIETY Active amLODIPine (NORVASC) 10 MG tablet Take 1 tablet (10 mg total) by mouth daily. Active doxycycline hyclate (VIBRAMYCIN) 100 MG capsule Take 1 capsule (100 mg total) by mouth 2 (two) times daily. 12/13/19 24 Active busPIRone (BUSPAR) 10 MG tablet Take 1 tablet (10 mg total) by mouth 3 (three) times daily. 12/21/19 24 Active calcium acetate, phos binder, (PHOSLO) 667 MG Cap Take 1 capsule (667 mg total) by mouth 3 (three) times daily with meals. Active DIALYVITE VITAMIN D3 MAX 1.25 MG (34104 UT) Tab TAKE ONE TABLET BY MOUTH WEEKLY DIRECTED 09/22/19 24 Active diphenoxylate-atro pine (LOMOTIL) 2.5-0.025 MG tablet Take 1 tablet by mouth 4 (four) times daily as needed. 12/21/19 24 Active fluconazole (DIFLUCAN) 100 MG tablet Take 1 tablet (100 mg total) by mouth daily. 12/06/19 24 Active furosemide (LASIX) 80 MG tablet Take 1 tablet (80 mg total) by mouth 2 (two) times daily. Active gabapentin (NEURONTIN) 300 MG capsule Take 1 capsule (300 mg total) by mouth 3 (three) times daily. Active labetalol (NORMODYNE) 100 MG tablet Take 1 tablet (100 mg total) by mouth 2 (two) times daily. 12/22/19 24 Active nortriptyline (PAMELOR) 25 MG capsule Take 1 capsule (25 mg total) by mouth nightly at bedtime. 08/24/19 24 Active ondansetron (ZOFRAN-ODT) 8 MG disintegrating tablet Take 1 tablet (8 mg total) by mouth every 12 (twelve) hours as needed. 11/01/19 24 Active potassium chloride CR (K-TAB) 20 MEQ tablet Take 2 tablets (40 mEq total) by mouth daily. 10/12/19 24 Active ipratropium-albute rol (DUONEB) 0.5-2.5 (3) MG/3ML Solution Take 3 mLs by nebulization every 6 (six) hours as needed. 360 mL 12/22/19 24 Active HYDROcodone-acetam inophen (NORCO) 10-325 MG tabletIndications: Acute Pain < 7 Day Supply Take 1 tablet by mouth every 6 (six) hours as needed for Pain. Indications: Acute Pain < 7 Day Supply 21 tablet 12/22/19 24 Active Active Problems Problem Noted Date Diagnosed Date End stage renal disease ([facility]) 2023 Encounters Date Type Department Care Team Description 12/22/2023 3:23 PM CDT - 12/22/2023 8:15 PM CDT Emergency [facility] Emergency Room [address] [place] [id number] Jacinto Rivas MD Arm Pain Discharge Disposition: Home or Self Care (Routine Discharge) 12/22/2023 2:20 PM CDT Office Visit [facility] Family [facility] Internal Medicine [facility] [address] [place] [phone] Safia Hardy PA Pain (To left arm-x 2 days ago-no known injury-pain getting worse-upper part of arm swollen) 12/22/2023 Travel from Last 3 Months Immunizations Name Administration Dates Next Due Hepatitis B (Generic: Adult) 11/04/2022,09/30/19 23,09/04/2022 Influenza (Generic) 12/20/2022 Pneumococcal (Generic) 02/27/2019 Pneumococcal (Prevnar 13) 07/03/2019 Tdap (Generic) 09/29/2023,07/30/2022 Family History Medical History Relation Comments Hypertension Father Relation Status Comments Father Alive Mother Alive Social History Tobacco Use Types Packs/Day Years Used Date Smoking Tobacco: Former Cigarettes Passive Smoke Exposure: Past Smokeless Tobacco: Never Tobacco Cessation:Counseling Given: No Alcohol Use Standard Drinks/Week Comments Yes 0 (1 standard drink = 0.6 oz pur e alcohol) PHQ-2 Answer Date Recorded Patient Health Questionnaire-2 Score 0 12/22/2023 Sex and Gender Information Value Date Recorded Sex Assigned at Not on file 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 Gender Identity Not on file Sexual Orientation Not on file Last Filed Vital Signs Vital Sign Reading Time Taken Comments Blood Pressure 165/89 12/22/2023 7:25 PM CDT Pulse 77 12/22/2023 7:25 PM CDT Temperature 36.5 ??C (97.7 ??F) 12/22/2023 7:25 PM CD T Respiratory Rate 20 12/22/2023 7:25 PM CDT Oxygen Saturation 100% 12/22/2023 7:25 PM CDT Inhaled Oxygen Concentration - - Weight 123.8 kg (273 lb) 12/22/2023 3:23 PM CDT Height 177.8 cm (5' 10 ) 12/22/2023 3:23 PM CDT Body Mass Index 39.17 12/22/2023 3:23 PM CDT Plan of Treatment Health Maintenance Due Date Last Done Comments Colorectal Cancer Screening Colonoscopy (10 Years) 1969 Annual Physical 02/18/1972 Hepatitis C 1987 Zoster Vaccines (1 of 2) 2019 Pneumococcal Vaccine: Pediatrics (0 to 5 Years) and At-Risk Patients (6 to 64 Years) (2 of 2 - PPSV23 or PCV20) 08/28/2019 07/03/2019, 02/27/2019 Hepatitis B Vaccines (3 of 3 - 19+ 3-dose series) 03/07/2023 11/04/2022, 09/29/2022, 09/04/2022 COVID-19 Vaccine (1 2023-2 5 season) 2023 Influenza Adult (#1) 2023 12/20/2022 PHQ-2 (Physician Knik) 12/21/2024 12/22/2023 DTaP, Tdap and Td Vaccines ( 3 - Td or Tdap) 09/28/2033 09/29/2023, 07/30/2022 Meningococcal B Vaccine Aged Out No l onger eligible based on patient's age to complete this topic Meningococcal Vaccine Aged Out No khai shalonda eligible based on patient's age to complete this topic RSV Immunizations Under 20 Months Aged Out No longer eligible b ased on patient's age to complete this topic Procedures Procedure Name Priority Date/Time Associated Diagnosis Comments XR FOREARM LT 2V STAT 12/22/2023 7:12 PM CDT XR ELBOW LT M3V STAT 12/22/2023 7:12 PM CDT XR HUMERUS LT MIN 2V STAT 12/22/2023 7:12 PM CDT USV INGRID DUPLEX UP EXT LT STAT 12/22/2023 6:48 PM CDT from Last 3 Months Results * XR HUMERUS LT MIN 2V (12/22/2023 7:12 PM CDT) Anatomical Region Laterality Modality Humerus Radiographic Priya ging 12/22/2023 7:17 PM CDT Impressions 12/22/2023 7:23 PM CDT IMPRESSION: 1. ??No acute osseous abnormality. 2. ??Possible calcific tendinitis about the shoulder. Referred By: ?? Interpreted By: Eleuterio Emmanuel MD, 12/22/2023 7:17 PM Narrative 12/22/2023 7:[address] [address] EXAMINATION: XR HUMERUS LT MIN 2V HISTORY: Pain after fall DATE: 12/22/2023 6:52 PM COMPARISON: None TECHNIQUE: AP, lateral views left humerus. ??2 images. FINDINGS: No acute fracture or dislocation. ??Tiny chronic spur at the lateral humeral epicondyle. ??Joint spaces are unremarkable. ??There are a few tiny chronic calcification in the right humeral head, possibly calcific tendinitis of the rotator cuff. Procedure Note Eleuterio Emmanuel MD - 12/22/[address] [place] [address] EXAMINATION: XR HUMERUS LT MIN 2V HISTORY: Pain after fall DATE: 12/22/2023 6:52 PM COMPARISON: None TECHNIQUE: AP, lateral views left humerus. 2 images. FINDINGS: No acute fracture or dislocation. Tiny chronic spur at thelateral humeral epicondyle. Joint spaces are unremarkable. There are afew tiny chronic calcification in the right humeral head, possiblycalcific tendinitis of the rotator cuff. IMPRESSION: 1. No acute osseous abnormality. 2. Possible calcific tendinitis about the shoulder. Referred By: Interpreted By: Eleuterio Emmanuel MD, 12/22/2023 7:17 PM Jacinto Rivas MD GENERAL IMAGING Final Result * XR FOREARM LT 2V (12/22/2023 7:12 PM CDT) Anatomical Region Laterality Modality Forearm Radiographic Priya ging 12/22/2023 7:16 PM CDT Impressions 12/22/2023 7:16 PM CDT IMPRESSION: No acute findings. Referred By: ?? Interpreted By: Eleuterio Emmanuel MD, 12/22/2023 7:16 PM Narrative 12/22/2023 7:16 PM CDT [place] [address] [place] [address] EXAMINATION: XR FOREARM LT 2V HISTORY: Pain DATE: 12/22/2023 6:52 PM COMPARISON: None TECHNIQUE: AP and lateral views of the left forearm. ??2 images. FINDINGS: No acute fracture or dislocation. ??Joint spaces are unremarkable. ??No destructive bone lesion. Procedure Note Eleuterio Emmanuel MD - 12/22/[address] [place] [address] EXAMINATION: XR FOREARM LT 2V HISTORY: Pain DATE: 12/22/2023 6:52 PM COMPARISON: None TECHNIQUE: AP and lateral views of the left forearm. 2 images. FINDINGS: No acute fracture or dislocation. Joint spaces areunremarkable. No destructive bone lesion. IMPRESSION: No acute findings. Referred By: Interpreted By: Eleuterio Emmanuel MD, 12/22/2023 7:16 PM Jacinto Rivas MD GENERAL IMAGING Final Result * XR ELBOW LT M3V (12/22/2023 7:12 PM CDT) Anatomical Region Laterality Modality Elbow Radiographic Priya ging 12/22/2023 7:16 PM CDT Impressions 12/22/2023 7:17 PM CDT IMPRESSION: No acute findings. Referred By: ?? Interpreted By: Eleuterio Emmanuel MD, 12/22/2023 7:16 PM Narrative 12/22/2023 7:17 PM CDT [address] [place] [address] EXAMINATION: XR ELBOW LT M3V HISTORY: Pain after fall DATE: 12/22/2023 6:52 PM COMPARISON: None TECHNIQUE: AP, oblique and lateral views of the left elbow. ??5 images. FINDINGS: No acute fracture or dislocation. ??Joint spaces are unremarkable. ??No joint effusion. Procedure Note Eleuterio Emmanuel MD - 12/22/[address] [place] [address] EXAMINATION: XR ELBOW LT M3V HISTORY: Pain after fall DATE: 12/22/2023 6:52 PM COMPARISON: None TECHNIQUE: AP, oblique and lateral views of the left elbow. 5 images. FINDINGS: No acute fracture or dislocation. Joint spaces areunremarkable. No joint effusion. IMPRESSION: No acute findings. Referred By: Interpreted By: Eleuterio Emmanuel MD, 12/22/2023 7:16 PM us Jacinto Rivas MD GENERAL IMAGING Final Result * USV INGRID DUPLEX UP EXT LT (12/22/2023 6:48 PM CDT) Anatomical Region Laterality Modality Extremity Ultrasound 12/22/2023 6:29 PM CDT Impressions 12/22/2023 6:32 PM CDT IMPRESSION: Normal Doppler venous ultrasound left upper extremity. No evidence of DVT in the imaged veins of the left upper extremity. Ordered By: JACINTO RIVAS Interpreted By: Dhaval Oh MD, 12/22/2023 6:29 PM Narrative 12/22/2023 6:32 PM CDT [address] [place] [address] 12/22/2023, 1555 hours. HISTORY: Possible blood clot. Left upper extremity pain and swelling, acute. No acute injury. EXAM: Ultrasound venous duplex upper extremity, left. Doppler venous ultrasound imaging was performed in the left upper extremity including the central jugular vein, the subclavian vein, the axillary vein, the brachial vein, the cephalic vein and the basilic veins. Imaging was performed utilizing brooke scale and Doppler color imaging techniques. No comparison. FINDINGS: There is good phasic venous flow demonstrated in the imaged veins. There is no persistent intraluminal echogenic material within the imaged veins and the veins were compressible. Therefore no evidence of venous thrombosis in the imaged veins left upper extremity. Procedure Note Dhaval Oh MD - 12/22/[address] [place] [address] 12/22/2023, 1555 hours. HISTORY: Possible blood clot. Left upper extremity pain and swelling,acute. No acute injury. EXAM: Ultrasound venous duplex upper extremity, left. Doppler venous ultrasound imaging was performed in the left upperextremity including the central jugular vein, the subclavian vein, theaxillary vein, the brachial vein, the cephalic vein and the basilic veins.Imaging was performed utilizing brooke scale and Doppler color imagingtechniques. No comparison. FINDINGS: There is good phasic venous flow demonstrated in the imagedveins. There is no persistent intraluminal echogenic material within theimaged veins and the veins were compressible. Therefore no evidence ofvenous thrombosis in the imaged veins left upper extremity. IMPRESSION: Normal Doppler venous ultrasound left upper extremity. No evidence of DVTin the imaged veins of the left upper extremity. Ordered By: JACINTO RIVAS Interpreted By: Dhaval Oh MD, 12/22/2023 6:29 PM us Jacinto Rivas MD VASC Final Result from Last 3 Months Insurance MEDICARE MEDICAID Care Teams Echo Technician Relationship Specialty Start Date End Date None, Provider, PCP - General UNKNOWN PHYSICIAN SPECIALTY 12/22/23
--- OUTSIDE RECORDS SUMMARY | 2024-03-16 04:09 | XMS_ITS ---
Author Organization 1 OF [facility] Address [address] [place] [address] [address] [place] [address] Care Team Providers Care Chopped Strand Operator Name Role Phone Milo Morrell MD Primary Care Provider Unavail James Xiao [facility] [phone] REASON FOR VISIT Refill for larger tube of cream Medications Medication SIG (Take, Route, Frequency, Duration) Notes Start Date End Date Status Triamcinolone Acetonide 0.1 % apply to affected area Topical Three times a day for 2 weeks, two times a day for 1 week, and 1 time a day for 1 week 03/11/2023 Active Encounters Encounter Location Date Provider Diagnosis 1 OF [facility] [address] [address] 03/10/2023 James Marcum Plan Of Treatment Medication Medication Name Sig Start Date Stop Date Notes Triamcinolone Acetonide 0.1 % apply to a ffected area Topical Three times a day for 2 weeks, two times a day for 1 week, and 1 time a day for 1 week 03/11/2023 Progress Notes * Andrea TOMOB:1969 (53 yo M)Acc No.[id number]:03/10/2023 Patient:?Real TOM :1970???Age:53 Y???Sex:Male Address:[address] [place] [id number] * Refills? Start Triamcinolone Acetonide Ointment, 0.1 %, Topical, 80 grams, apply to affected area, Three times a day for 2 weeks, two times a day for 1 week, and 1 time a day for 1 week, Refills=5 * true * Date:? 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
--- OUTSIDE RECORDS SUMMARY | 2024-03-16 04:09 | XMS_ITS | Patient Health Record ---
Author Organization 1 [facility] Address [address] [facility] [address] [place] [address] Care Team Providers Care Service Support Representative Name Role Phone Milo Morrell MD Primary Care Provider Unavail able James Marcum Unavailable [phone] Allergies No Known Allergies Reason For Referral No Information Medications Medication SIG (Take, Route, Frequency, Duration) Notes Start Date End Date Status Diphenoxylate-Atropine Active Gabapentin Active Triamcinolone Acetonide 0.1 % apply to affected area Topical Three times a day for 2 weeks, two times a day for 1 week, and 1 time a day for 1 week 03/11/2023 Active Vitamin A Active Omeprazole Active Vitamin C Active Labetalol HCl 200 MG TAKE 1 TABLET BY [facility] TWICE DAILY Oral for 90 Days Active amLODIPine Benzoate Active Melatonin Active Triamcinolone Acetonide 0.1 % 1 application to affected area Externally Twice a day for days 12/23/2022 Active Calcium Acetate (Phos Binder) 667 MG TAKE 4 CAPSULES BY MOUTH THREE TIMES DAILY WITH MEALS Oral for 30 Days Active Furosemide Active Triamcinolone Acetonide 0.1 % 1 application to affected area Externally Twice a day for days 12/31/2022 Active Calcium Acetate Acti ve Triamcinolone Acetonide 0.1 % 1 application to affected area Externally Twice a day for days 12/29/2022 Active Social History Tobacco Use: Social History Observation Description Date Details (start date - stop date) Current Smoker NA - NA Tobacco Use/Smoking Question Answer Notes Are you a current smoker Problems Problem Type SNOMED Code ICD Code Onset Dates Problem Status W/U Status Risk Notes Problem 578142623 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 Problem 779866666220757 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 Problem 828213549503399 Carlson's neuroma of left 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) Active confirmed Problem 62440805 Autoimmune disease (M35.9) Active confirmed Problem 84433767 Autoimmune disorder (D89.89) Active confirmed Vital Signs Height 70 in 04/30/2023 Weight 240 lbs 04/30/2023 BMI 34.43 kg/m2 04/30/2023 Encounters Encounter Location Date Provider Diagnosis 1 OF [facility] [address] [place] [address] 04/30/2023 James Marcum Idiopathic progressi ve neuropathy G60.3 ; Lumbar radiculopathy M54.16 ; Carlson's neuroma of left foot G57.62 ; Carlson's neuroma of right foot G57.61 ; Onychogryphosis L60.2 ; Pain in right toe(s) M79.674 and Pain in left toe(s) M79.675 1 OF Renzo [facility] [address] [place] [address] 03/30/2023 James Marcum Assessments Encounter Date Diagnosis (ICD Code) Assessment Notes Treatment Notes Treatment Clinical Notes Section Notes 04/30/2023 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) 04/30/2023 Lumbar radiculopathy (ICD-10 - M54.16) 04/30/2023 Carlson's neuroma of left foot (ICD-10 - G57.62) 04/30/2023 Carlson's neuroma of right foot (ICD-10 - G57.61) 04/30/2023 Onychogryphosis (ICD-10 - L60.2) 04/30/2023 Pain in right toe(s) (ICD-10 - M79.674) 04/30/2023 Pain in left toe(s) (ICD-10 - M79.675) 04/30/2023 Other I did examine and evaluate the patient today. I did review the NCVS/EMG report with him and do believe that at this point in time it would be an excellent idea to refer him to neurology. I did dispense the results to him and we will have him follow-up in 3 months and hopefully at that point in time he will have some answers from the neurologist as to why he is having the pain. Plan Of Treatment No Information Insurance Providers Payer Name Payer Address Payer Phone Subscriber Number Group Number Insured Name Patient Relationship to Insured Coverage Start Date Coverage End Date Medicare [address] [facility] [place], [place] [id number] Real Norton Self - patient is the insured [facility] [address] [address] [place] [address] [id number] Real Norton Self - patient is the insured Medical (General) History Medical History History ICD Code depression Dialysis High Blood Pressure kidney disease Surgical History Surgery Date(Month/Year) colonscopy 03/2023
--- OUTSIDE RECORDS SUMMARY | 2024-03-16 04:09 | XMS_ITS ---
Author Organization 1 OF [facility] Address [address] [address] [place] [address] Care Team Providers Care Coach Mechanic Name Role Phone Milo Morrell MD Primary Care Provider Unavail able TrixieJames Unavailable [phone] REASON FOR VISIT NCS results Medications Medication SIG (Take, Route, Frequency, Duration) Notes Start Date End Date Status Triamcinolone Acetonide 0.1 % apply to affected area Topical Three times a day for 2 weeks, two times a day for 1 week, and 1 time a day for 1 week 03/11/2023 Active Triamcinolone Acetonide 0.1 % 1 application to affected area Externally Twice a day for days 12/23/2022 Active Calcium Acetate (Phos Binder) 667 MG TAKE 4 CAPSULES BY MOUTH THREE TIMES DAILY WITH MEALS Oral for 30 Days Active Triamcinolone Acetonide 0.1 % 1 application to affected area Externally Twice a day for days 12/31/2022 Active Triamcinolone Acetonide 0.1 % 1 application to affected area Externally Twice a day for days 12/29/2022 Active Vitamin A Active Omeprazole Active Vitamin C Active Labetalol HCl 200 MG TAKE 1 TABLET BY MO UT TWICE DAILY Oral for 90 Days Active amLODIPine Benzoate Active Diphenoxylate-Atropine Active Gabapentin Active Melatonin Active Furosemide Active Calcium Acetate Acti ve Vital Signs Height 70 in 04/30/2023 Weight 240 lbs 04/30/2023 BMI 34.43 kg/m2 04/30/2023 Encounters Encounter Location Date Provider Diagnosis [facility] OF [facility] [address] [address] 04/30/2023 James Marcum 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 Plan Of Treatment Treatment Notes Assessment Notes Other I did examine and ev aluate the patient today. I did review the [...] to why he is having the pain. Next Appt Details Follow Up: 3 Months, Reason: Procedure Notes * Category Sub-Category Detail Notes PALLIATIVE FOOT CARE: Nail debride (71658): Debr idement of at least six mycotic and/or hypertrophic nails performed:, utilizing manual and electric debridement the affected nails were reduced the nails in length and thickness with curettage of debris from nail margins performed as needed. Nail thickness reduced by:, 10% Progress Notes * Andrea TOMOB:1969 (53 yo M)Acc No.[id number]:04/30/2023 Progress Notes Patient:?Real TOM Provider:?James Marcum DPM :1970???Age:53 Y???Sex:Male Wilmer e:04/30/2023 Address:[address] [place], [place] [id number] Pcp:Milo Morrell MD Subjective: * Chief Complaints: * ???NCS results * HPI: ???MA assisting with visit::?HPI/Rooming:?, Fifi.?Primary reason for visit::?53 y/o male RTO for f/u of lumbar radiculopathy. At last visit, treatment consisted of a NCS order and neuroma injection. Pt's NCS results will be printed off by hand and reviewed with the pt today. Pt reports Injection helped for a week, pain came back and is constant lately. ???2nd concern today::?Pain level: ?8/10, B/L feet:.? * Medical History:? * Surgical History:?colonscopy 03/2023 * Hospitalization/Major Diagno stic Procedure:? * Family History:? high blood pressure. * Medications:?TakingMelatonin Calcium Acetate Furosemide Gabapentin Diphenoxylate-Atropine Vitamin A Vitamin C Omeprazole amLODIPine Benzoate Labetalol HCl 200 MG Tablet TAKE 1 TABLET BY MOUTH TWICE DAILY Oral Calcium Acetate (Phos Binder) 667 MG Capsule TAKE 4 CAPSULES BY MOUTH THREE TIMES DAILY WITH MEALS Oral Triamcinolone Acetonide 0.1 % Cream 1 application to affected area Externally Twice a day Triamcinolone Acetonide 0.1 % Cream 1 application to affected area Externally Twice a day Triamcinolone Acetonide 0.1 % Cream 1 application to affected area Externally Twice a day Triamcinolone Acetonide 0.1 % Ointment apply to affected area Topical Three times a day for 2 weeks, two times a day for 1 week, and 1 time a day for 1 week Medication List reviewed and reconciled with the patientTaking Melatonin Taking Calcium Acetate Taking Furosemide Taking Gabapentin Taking Diphenoxylate-Atropine Taking Vitamin A Taking Vitamin C Taking Omeprazole Taking amLODIPine Benzoate Taking Labetalol HCl 200 MG Tablet TAKE 1 TABLET BY MOUTH TWICE DAILY Oral Taking Calcium Acetate (Phos Binder) 667 MG Capsule TAKE 4 CAPSULES BY MOUTH THREE TIMES DAILY WITH MEALS Oral Taking Triamcinolone Acetonide 0.1 % Cream 1 application to affected area Externally Twice a day Taking Triamcinolone Acetonide 0.1 % Cream 1 application to affected area Externally Twice a day Taking Triamcinolone Acetonide 0.1 % Cream 1 application to affected area Externally Twice a day Taking Triamcinolone Acetonide 0.1 % Ointment apply to affected area Topical Three times a day for 2 weeks, two times a day for 1 week, and 1 time a day for 1 week Medication List reviewed and reconciled with the patient Objective: * Vitals:?Wt:240lbs, Wt-k 8.86 kg, Ht: 70 in, BMI:34.43Index. * ???Past Orders: ???Imaging:Nerve conduction studies with EMG lower extremity bilateral (Order Date - 01/26/2023) (Performed Date - 03/24/2023) ?Result: Impression: Complains of numbness of lower extremities. He is on daily home dialysis. Sever axonal neuropathy. Needle/EMG exam revealed neurogenic changes. Clinical correlation recommended. * Examination: ???General Examination: ?Constitutional / Appearance: ?No acute distress , Well nourished, Appropriate personal hygiene?.?Mental status: ?Cooperative, Oriented to person, place and time, Mood and affect: normal, Judgement and intellect: normal with appropriate response to questions?.?Shoes today:?tennis shoes , Slip on Skechers.?Lower Extremity NEURO: : General sensation appears diminished , bilateral. Muscle tone diminished , bilateral. Monofilament test (10 gram pressure) Exam of 12/23/2022: , - - revealed absent sensation to at least two distinct locations of , multiple toes , bilateral. Vibration perception: Exam of 12/23/2022: , - - noted significantly diminished / absent per evaluation with 128Hz tuning fork applied to distal hallux compared to ipsilateral medial malleolus , @ bilateral feet. There continues to be at least 10 degrees of ankle joint dorsiflexion bilateral lower extremity with the knees extended and there is pain and recreation of his symptoms with Marco A's test and palpation of the distal third intermetatarsal spaces bilaterally. ???Lower Extremity DERM: : ?Nails:?Nail plates of:, TA-T9, appear, relatively thickened,very hypertrophic, dystrophic, discolored, with subungual debris, Pain with palpation and debridement noted..? 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 Pain in left toe(s) - M79.675? Plan: * Treatment: * Procedures:?PALLIATIVE FOOT CARE::?Nail debride (96891): ?Debridement of at least six mycotic and/or hypertrophic nails performed:, utilizing manual and electric debridement the affected nails were reduced the nails in length and thickness with curettage of debris from nail margins performed as needed. Nail thickness reduced by:, 10%.? * Procedure Codes:?89726 JORGE REILLY, 6 OR MORE * Follow Up:?3 Months * Images: * [facility] Sign off status: Completed true * Provider:?James Marcum DPM Date:?09/2023 Generated for Zuleika marroquinStacie/eTransmitting on:?03/16/2024 04:08 AM [facility] History and Physical Notes * HPI (History of Present Illness) Category Sub-Category Detail Notes Category Not es Primary reason for visit: 53 y/o male RTO for f/u of lumbar radiculopathy. At last visit, treatment consisted of a NCS order and neuroma injection. Pt's NCS results will be printed off by hand and reviewed with the pt today. Pt reports Injection helped for a week, pain came back and is constant lately. 2nd concern today: Pain level: 8, B/L feet: MA assisting with visit: HPI/Rooming: Fifi Examination Category Sub-Category Detail Notes Category Not es General Examination Mental status: Cooperative, Oriented to per son, place and time, Mood and affect: normal, Judgement and intellect: normal with appropriate response to questions Lower Extremity NEURO: : General sensation appears diminished , bilateral. Muscle tone diminished , bilateral. Monofilament test (10 gram pressure) Exam of 12/23/2022: , - - revealed absent sensation to at least two distinct locations of , multiple toes , bilateral. Vibration perception: Exam of 12/23/2022: , - - noted significantly diminished / absent per evaluation with 128Hz tuning fork applied to distal hallux compared to ipsilateral medial malleolus , @ bilateral feet. There continues to be at least 10 degrees of ankle joint dorsiflexion bilateral lower extremity with the knees extended and there is pain and recreation of his symptoms with Marco A's test and palpation of the distal third intermetatarsal spaces bilaterally. Shoes today: tennis shoes , Slip on Skechers Exam unchanged from prior visit: Constitutional / Appearance: No acute di stress , Well nourished, Appropriate personal hygiene Lower Extremity DERM: Nails: Nail plate s of:, TA-T9, appear, relatively thickened, very hypertrophic, dystrophic, discolored, with subungual debris, Pain with palpation and debridement noted.
--- OUTSIDE RECORDS SUMMARY | 2024-03-16 04:11 | XMS_ITS | Encounter Summary ---
Author Organization [facility] Address [address] [place] [address] Care Team Providers Care Psychiatric Therapist Name Role Phone Janet Moss RN Unavailable [phone] Milo Morrell MD Primary Care Provide r Encounter Details Date Type Department Care Team (Late st Contact Info) Description 03/08/2024 Telephone [facility] [address] [facility] [phone] [place] [address] Janet Moss RN [address] [facility] [address] [place] [address] Social History Tobacco Use Types Packs/Day Years Used Date Smoking Tobacco: Every Day Cigarettes 0.3 15 Sex and Gender Information Value Date Recorded Sex Assigned at Not on file Legal Sex Male 9:46 AM RAYON WINDER Gender Identity Not on file Sexual Orientation Not on file documented as of this encounter Miscellaneous Notes * Telephone Encounter - Janet Moss RN - 03/08/2024 3:13 PM CST Called leaving a asking for a return call to schedule annual testing and see if he has had improvement with his iPTH N WINDER documented in this encounter Plan of Treatment Not on file documented as of this encounter Visit Diagnoses Not on filedocumented in this encounter Care Teams Psychiatric Therapist Relationship Specialty Start Date End Date Milo Morrell MD [address] [place] [address] PCP - General Emergency Medicine 03/26/23 Janet Moss, RN [address] [address] De Icer Kit Assembler 10/06/22 documented as of this encounter
--- OUTSIDE RECORDS SUMMARY | 2024-03-16 04:11 | XMS_ITS | Clinical Summary ---
Author Organization [facility] Address [address] [place] [address] Care Team Providers Care Sifting Operator Name Role Phone Janet Moss RN Unavailable [phone] Milo Morrell MD Primary Care Provide r Allergies No known active allergies Medications albuterol HFA (PROVENTIL HFA,VENTOLIN HFA,PROAIR HFA) 90 mcg/actuation inhaler INHALE 1 PUFF BY MOUTH FOUR TIMES DAILY NEEDED FOR SHORTNESS OF BREATH OR WHEEZING Active ALPRAZolam (XANAX) 0.5 mg tablet Take by mouth 2 (two) times a day as needed 4 Active amLODIPine (NORVASC) 10 mg tablet Take 1 tablet (10 mg total) by mouth daily Active benzonatate (TESSALON) 100 mg capsule TAKE 1 CAPSULE BY MOUTH TWICE DAILY NEEDED FOR COUGH 4 Active calcium acetate,phospha t bind, (PHOSLO) 667 mg capsule TAKE 4 CAPSULES BY MOUTH THREE TIMES DAILY WITH MEALS 4 Active cinacalcet HCl (SENSIPAR ORAL) Acti ve escitalopram (LEXAPRO) 10 mg tablet Take 1 tablet (10 mg total) by mouth daily Active furosemide (LASIX) 80 mg tablet Take 1 tablet (80 mg total) by mouth every morning Active gabapentin (NEURONTIN) 300 mg capsule Take 1 capsule (300 mg total) by mouth 3 (three) times a day 3 Active labetaloL (NORMODYNE,SALVADOR DATE) 200 mg tablet Take 1 tablet (200 mg total) by mouth 2 (two) times a day Active lanthanum (FOSRENOL) 1,000 mg chewable tablet CHEW AND SWALLOW ONE TABLET THREE TIMES DAILY WITH MEALS 3 Active Active Problems Problem Noted Date Diagnosed Date End stage renal disease ([facility] 04/05/2023 Encounters Date Type Department Care Team Description 03/08/[address] [facility] Transplant Kidney [address] Mailstop [phone] [place] [address] Janet Moss RN 01/26/2024 10:00 AM [facility] - 01/26/2024 11:59 PM [facility] Hospital Encounter [address] [address] ESRD (end stage renal disease) ([facility] ([facility]) Discharge Disposition: Discharge to home or self care 12/31/2023 10:00 AM [facility] DRAWER HAND - 12/31/2023 11:59 PM [facility] Hospital Encounter [address] [address] ESRD (end stage renal disease) ([facility]) ([facility]) Discharge Disposition: Discharge to home or self care 12/31/2023 Orders Only [facility] Nephrology [address] 5[address] [place] [address] [place] [address] Alejo Florence MD from Last 3 Months Immunizations Name Administration Dates Next Due Hep B Vaccine 11/04/2022,09/29/2022,09/04/2022 Influenza, Unspecified 12/20/2022 Pneumococcal Conjugate PCV 13 07/03/2019 Pneumococcal, Unspecified 02/27/2019 Tdap 09/29/2023,07/30/2022 Social History Tobacco Use Types Packs/Day Years Used Date Smoking Tobacco: Every Day Cigarettes 0.3 15 Tobacco Cessation:Ready to Q uit: No; Counseling Given: Yes Sex and Gender Information Value Date Recorded Sex Assigned at Not on file Legal Sex Male 9:46 AM COKE DRAW[employer] Gender Identity Not on file Sexual Orientation Not on file Obstetrics History Last Filed Vital Signs Vital Sign Reading Time Taken Comments Blood Pressure 163/115 04/12/2023 8:12 AM [facility] Pulse 77 04/12/2023 8:12 AM [facility] Temperature 36.7 ??C (98.1 ??F) 04/05/2023 1:04 PM CS T Respiratory Rate - - Oxygen Saturation - - Inhaled Oxygen Concentration - - Weight 112.5 kg (248 lb 0.3 oz) 04/12/2023 8:12 AM [facility] Height 175.3 cm (5' 9 ) 04/05/2023 1:04 PM [employer]KE DRAW[facility] HAND Body Mass Index 36.63 04/05/2023 1:04 PM [facility] Plan of Treatment Health Maintenance Due Date Last Done Comments Colon Cancer Screening-Colonoscopy 1969 Depression Screening 1969 Regular Well Visit/Exam 18-64 1987 Zoster Vaccine (1 of 2) 2019 Pneumococcal vaccine <65 (2 of 2 - PPSV23 or PCV20) 08/28/2019 07/03/2019, 02/27/2019, 02/27/2019 Influenza Vaccine (#1) 2023 12/20/2022 Prostate Cancer Screening-PSA 04/05/2025 04/05/2023 DTaP/Tdap/Td Vaccine (3 - Td or Tdap) 09/28/203308/2023, 07/30/2022 Hepatitis C Screening Completed 04/05/2023 Procedures Procedure Name Priority Date/Time Associated Diagnosis Comments HLA ANTIBODY SCREEN BY PRA OR SAB PER SCHEDULE (CLASS I AND CLASS II) Routine 01/26/2024 10:00 AM [facility] ESRD (end stage renal disease) (CMS/HCC) (HCC) HLA ANTIBODY SCREEN - SAB (CLASS I AND CLASS II) Routine 12/31/2023 10:00 AM [facility] HLA ANTIBODY SCREEN - PRA (CLASS I AND CLASS II) Routine 12/31/2023 10:00 AM [employer] HAND ESRD (end stage renal disease) (CMS/HCC) (HCC) HLA ANTIBODY SCREEN BY PRA OR SAB PER SCHEDULE (CLASS I AND CLASS II) Routine 12/31/2023 10:00 AM [facility]KE [facility] HAND ESRD (end stage renal disease) (CMS/HCC) (HCC) HEPATITIS C ANTIBODY Routine 04/05/2023 11:27 AM [employer]KE DRAWER HAND End stage renal disease (CMS/HCC) (HCC) PSA SCREEN Routine 04/05/2023 11:27 AM [employer]KE DRAWER HAND End stage renal disease (CMS/HCC) (HCC) from Last 3 Months or Most Recently Relevant to Health Maintenance Results * HLA Antibody Screen by PRA or SAB per Schedule (Class I and Class II) (01/26/2024 10:00 AM [facility]) Blood 01/26/2024 10:0 0 AM [facility]KE DRAWER HAND Narrative [facility] - [facility] Sample received in lab and stored. ??No testing performed at this time. Alejo Florence MD LAB BLOOD ORDERABLES Final Resu lt Performing Organization Address [facility] Co de Phone Number [facility] * HLA Antibody Screen by PRA or SAB per Schedule (Class I and Class II) (12/31/2023 10:00 AM [facility]) Blood 12/31/2023 10:0 0 AM COKE DRAWER HAND Narrative [facility] - [facility] Sample received in lab. ??PRA Screen ordered. Alejo Florence MD LAB BLOOD ORDERABLES Final Resu lt Performing Organization Address [facility] Co de Phone Number [facility] * HLA Antibody Screen - PRA (Class I and Class II) (12/31/2023 10:00 AM [facility]) Class I Treatment Untreated [facility] Class I Dilution 1:1 [facility] Class I Tested Date 01/05/2024 [facility] Class I Result Positive [facility] Class I Percent Positive 2 [facility] Class II Treatment Untreated [facility] Class II Dilution 1:1 [facility] Class II Tested Date 01/06/2024 [facility] Class II Result Negative [facility] Class II Percent Positive 0 [facility] 12/31/2023 10:0 0 AM [facility] HAND 01/06/2024 1:28 PM [facility]KE DRAWER HAND Narrative [facility] - 01/06/2024 1:28 PM [facility]KE DRAWER HAND PRA (panel reactive antibody) HLA antibody screen is performed on serum samples using a method developed and validated by the [facility] HLA laboratory based on an FDA- approved IVD kit (LABScreen PRA, [employer], [place], [place]). Interpretive comments: The percentage of beads with MFI > 750 is reported, which indicates the percentage of donor population estimated to be incompatible with the patient tested. PRA > 0% is consistent with alloimmunization to HLA. Testing performed at the [facility] HLA Laboratory, [address] [place] [address], 5th floor, [place], [address]. [place] # [id number]. Breanne Nieto, Ph.D., Emergency Room Physician, HLA Laboratory Abdoulaye Kraft M.D., Ph.D., Architectural Draftsperson, HLA Laboratory Denise Abreu, Ph.D., CLIA Architectural Draftsperson, [facility] Clinical Laboratories Current methodology and interpretive comments last revised on 06/16/2017. us Alejo Florence MD LAB BLOOD ORDERABLES Final Resu lt [facility] * HLA Antibody Screen - SAB (Class I and Class II) (12/31/2023 10:00 AM [facility]KE [facility]RAWER [facility]) Class I Treatment EDTA [facility] Class I Dilution 1:1 [facility] Class I Tested Date 01/05/2024 [facility] Class I Result Positive [facility] Class I CPRA 2 [facility] Class I Moderate Risk A66 [facility] Class I Low Risk A34, A66, A68 [facility] Class II Treatment EDTA [facility] Class II Dilution 1:1 [facility] Class II Tested Date 01/05/2024 [facility] Class II Result Negative [facility] Class II CPRA 0 [facility] 12/31/2023 10:0 0 AM [facility] HAND 01/06/2024 1:28 PM [facility]KE DRAWER HAND Narrative [facility] - 01/06/2024 1:28 PM [facility]KE D[facility] HAND Single-antigen HLA antibody screen is performed on serum samples using a method developed and validated by the [facility] HLA laboratory based on an FDA-approved IVD kit (LABScreen Single-Antigen, [employer], [place], [place]). All patient serum samples are pretreated with EDTA before the screen to prevent complement interference. Additional serum treatments, such as adsorption and DTT treatment, may be performed as indicated. ??Interpretive comments: Low risk: MFI 7994-3535. Moderate risk: MFI 7146-1238. Increased risk: MFI >/= 5000. The presence of an antigen in two or more risk categories may indicate a mixed reactivity pattern among beads of multiple subtypes. Preformed donor-specific antibodies (DSA) with MFI above 2000 are predictive of positive cytotoxicity crossmatch (Hum Immunol 2010;71:268-73. Hum Immunol 2012;73:497- 604) and carry a higher risk of humoral rejection. For our solid-organ transplant programs, unacceptable antigens (UA) for transplant candidates are defined by MFI >/= 2000 with some exceptions. UA are listed at [facility] and used to generate calculated PRA (cPRA) rounded to the nearest integer. In the post-transplant setting, MFI values from donor-specific beads are listed in the DSA report to provide additional information. It is important to note that this test is approved as a qualitative test and the MFI values are not strictly linear. For platelet refractoriness: An empirical cutoff value of MFI >/= 2000 has been used in our center; a higher cutoff value such as 5000 may also be suitable for highly sensitized patients to prioritize the antigens to avoid. Testing performed at the [facility] Laboratory, [address] [place] [address], 5th floor, [place], [address]. [place] # [id number]. Breanne Nieto, Ph.D., Emergency Room Physician, HLA Laboratory Abdoulaye Kraft M.D., Ph.D., Architectural Draftsperson, HLA Laboratory Denise Abreu, Ph.D., CLIA Architectural Draftsperson, [facility] Clinical Laboratories Current methodology and interpretive comments last revised on 03/19/2022. us Alejo Florence MD LAB BLOOD ORDERABLES Final Resu lt Performing Organization Address [facility]/ZIP Co de Phone Number [facility] * PSA screen (04/05/2023 11:27 AM COKE DRAWER HAND) Pathologist [facility] PSA-Total 0.28 <=3.90 ng/mL [facility] Comment: Interpretive Data ?AGE ? SEX ?REFERENCE INTERVAL 0 minutes-150 years ?Female ?None 0 minutes-49 years ? Male ?None ? 50-59 years ? Male ?0-3.90 ? 60-69 years ? Male ?0-5.40 ? 70-79 years ? Male ?0-6.20 ? 80-150 years ?Male ?0-6.20 The [employer] PSA Total assay procedure was used. Results from different manufacturers or methods may not be comparable. Serial testing should be performed using the same method. Current interpretive data last revised 21. Blood 04/05/2023 11:2 7 AM [facility]KE D[facility]ER HAND 04/05/2023 12:10 PM COKE DRAWER HAND Narrative [facility] - 04/05/2023 12:57 PM [facility] D[facility] HAND This lab is being obtained as part of a Kidney transplant evaluation, is time sensitive, and should only be drawn during the evaluation visit at [facility] Lab. us Abena Brown MD LAB BLOOD ORDERABL ES Final Result Performing Organization Address [facility] Co de Phone Number [facility] Department [place] [address] * Hepatitis C antibody Blood (04/05/2023 11:27 AM COKE DRAWER HAND) Pathologist [facility] Hep C Ab Nonreactive Nonreactive [facility] Comment:Antibodies to HCV no t detected. Does NOT exclude the possibility of recent exposure to HCV. Current interpretive data was last revised on 21 Blood 04/05/2023 11:2 7 AM [facility]KE DRAWER HAND 04/05/2023 12:09 PM COKE DRAWER HAND Hector ROBLES [facility] - 04/05/2023 1:03 PM [employer]KE DRAWER HAND This lab is being obtained as part of a Kidney transplant evaluation, is time sensitive, and should only be drawn during the evaluation visit at [facility] Lab. us Abena Brown MD LAB MICROBIOLOGY - GENERAL ORDERABLES Final Result [facility] Department [place] [address] from Last 3 Months or Most Recently Relevant to Health Maintenance Insurance MEDICARE [facility] MEDICARE IDPA MEDICARE IDPA Care Teams Sifting Operator Relationship Specialty Start Date End Date Milo Morrell MD [address] [place], [place] [id number] PCP - General Emergency Medicine 03/26/23 Janet Moss, RN [address] [address] Shift Manager 10/06/22
--- OUTSIDE RECORDS SUMMARY | 2024-03-16 04:11 | XMS_ITS ---
Author Organization [facility] Address [address] [place] [address] Care Team Providers Care Police Chief Deputy Name Role Phone Janet Moss RN Unavailable [phone] Milo Morrell MD Primary Care Provide r Transplant Episode Kidney Candidate [facility] ([place], [place]) [facility] Center waitlisted on 08/24/2023 Marked as Inactive on 08/24/2023 Reason: 04 - Insurance Issues Kidney CoordinatorJanet Moss RN Fax: N/A Email: N/A Scores Score Value Updated Exceptions/Reas ons CPRA Not available EPTS (Calc) 29 03/16/2024 [place] Organ 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 Care Team Name Role Phone Fax Email Janet Moss RN Kidney Coordinator [phone] N/A N/A Xavier Marcus MD Referring Physician [phone] N/A Janet Muse Guard Supervisor [phone] N/A N/A Events Pre-Transplant Referred: 10/05/2022 Evaluation began: 02/04/2023 Committee: 08/23/2023 [facility] qualified: 11/27/2021 Center waitlisted: 08/24/2023 Dialysis History Dialysis History Start End Type Comments Center 11/27/2021 Peritoneal [facility] Dialysis [facility] Information Center Phone Fax Address [facility] [phone] [address] [facility] [address] [facility] [id number]
--- OUTSIDE RECORDS SUMMARY | 2024-03-16 04:11 | XMS_ITS ---
Author Organization [employer] ([facility]) Address [address] [place] [id number] Care Team Providers Care Gang Investigator Name Role Phone Unavailable Unavailable Unavailable Allergies, Adverse Reactions, Alerts Allergy Name Allergy Type Status Severity Reaction(s) Onset Date Inactive Date Treating Clinician Comments No Known Allergies Allergy Active 2022-04 22:02:4 0 Medications Ordered Medication Name Filled Medication Name Start Date Stop Date Current Medication? Ordering Clinician Indication Dosage Frequency Signature (SIG) Comments Components Mircera 2023-0206 16:53: 13 Yes [id number] Number of Repeats Allowed: Frequency: CARLEEN dosing, every three to four weeks Labetalol HCl 10-14 13:46: 15 Yes Number of Repeats Allowed: Frequency: Two times a day Venofer 09-02 00:13: 31 Yes [id number] Number of Repeats Allowed: Frequency: Every monthDoses Ordered: Maintenanc e Dose 100 Milligram Route: Intravenou s busPIRone HCl 08-19 14:05: 15 Yes Number of Repeats Allowed: Frequency: Two times a day Nortriptyli ne HCl 08-19 14:03: 39 Yes Number of Repeats Allowed: Frequency: Once a day, at bedtime Loperamide HCl 09-10 18:15: 29 Yes Number of Repeats Allowed: Frequency: As needed Lexapro 09-10 18:14: 50 Yes Number of Repeats Allowed: Frequency: One time a day Melatonin 07-31 17:17: 57 Yes Number of Repeats Allowed: Frequency: Once a day, at bedtime hydrOXYzine HCl 07-31 17:15: 33 Yes Number of Repeats Allowed: Frequency: Once a day, at bedtime Doxepin HCl 07-31 17:13: 11 Yes Number of Repeats Allowed: Frequency: One time a day KlonoPIN 07-31 13:26: 55 Yes Number of Repeats Allowed: Frequency: Once a day, at bedtime Problems This patient has no known problems. Procedures Procedure Date / Time Performed Performing Clinician Yadira ce Details PD Catheter 2021-11-24 06:00:00 Access Surgeon CUATE JOHNSON (D [id number]),AVOCAWY Access Site Middle Quadrant (Lef t) DIALYSIS TREATMENT INFORMATION Conventional Hemodialysis Date Type Treatment Start Date Treatment End Date Pre-Treatment Vitals Post-Treatment Vitals Weight Gain BFR DFR Actual UF Dialysis Access March 09, 2024 [facility] March 08, 2024 [facility] March 07, 2024 [facility] March 06, 2024 [facility] March 05, 2024 [facility] March 04, 2024 [facility] March 03, 2024 [facility] March 02, 2024 [facility] March 01, 2024 [facility] February 29, 2024 [facility] February 28, 2024 [facility] February 27, 2024 [facility] February 26, 2024 [facility] February 25, 2024 [facility] February 24, 2024 [facility] February 23, 2024 [facility] February 22, 2024 [facility] February 21, 2024 [facility] February 20, 2024 [facility] February 19, 2024 [facility] February 18, 2024 [facility] 2024 [facility] February 16, 2024 [facility] February 15, 2024 [facility] February 14, 2024 [facility] February 13, 2024 [facility] February 12, 2024 [facility] February 11, 2024 [facility] February 10, 2024 [facility] BP Sitting (Pre-Dialysis) 174/99 mmHg BP Standing (Pre-Dialysis) 171/105 mmHg Sitting Heart Rate Pre-Dialysis 80 BPM Standing Heart Rate Pre-Dialysis 81 BPM Temperature Pre-Dialysis 97.9 degF Weight Pre-Dialysis 120.4 kg February 10, 2024 [facility] February 09, 2024 [facility] February 08, 2024 [facility] February 07, 2024 [facility] February 06, 2024 [facility] February 05, 2024 [facility] February 04, 2024 [facility] February 03, 2024 [facility] February 02, 2024 [facility] February 01, 2024 [facility] January 31, 2024 [facility] January 30, 2024 [facility] January 29, 2024 [facility] January 28, 2024 [facility] January 27, 2024 [facility] January 26, 2024 [facility] BP Sitting (Pre-Dialysis) 148/99 mmHg BP Standing (Pre-Dialysis) 129/89 mmHg Sitting Heart Rate Pre-Dialysis 81 BPM Standing Heart Rate Pre-Dialysis 81 BPM Temperature Pre-Dialysis 98.1 degF Weight Pre-Dialysis 120 kg January 26, 2024 [facility] January 25, 2024 [facility] January 24, 2024 [facility] January 23, 2024 [facility] January 22, 2024 [facility] January 21, 2024 [facility] January 20, 2024 [facility] January 19, 2024 [facility] January 18, 2024 [facility], [facility] January 16, 2024 [facility] January 15, 2024 [facility] January 14, 2024 [facility] January 13, 2024 [facility] BP Sitting (Pre-Dialysis) 142/93 mmHg BP Standing (Pre-Dialysis) 148/97 mmHg Sitting Heart Rate Pre-Dialysis 76 BPM Standing Heart Rate Pre-Dialysis 79 BPM Temperature Pre-Dialysis 98 degF Weight Pre-Dialysis 123 kg January 13, 2024 [facility] January 12, 2024 [facility] January 11[facility] 2024 [facility] January 10[facility] 2024 [facility] January 09[facility] 2024 [facility] January 08, 2024 [facility] January 07[facility] 2024 [facility] January 06, 2024 [facility] January 05, 2024 [facility] January 04, 2024 [facility] January 03, 2024 [facility] January 02, 2024 [facility] January 01, 2024 [facility] December 31, 2023 [facility] BP Sitting (Pre-Dialysis) 133/87 mmHg BP Standing (Pre-Dialysis) 129/98 mmHg Sitting Heart Rate Pre-Dialysis 71 BPM Standing Heart Rate Pre-Dialysis 78 BPM Temperature Pre-Dialysis 98 degF Weight Pre-Dialysis 122.7 kg December 31, 2023 [facility] December 30, 2023 [facility] December 29, 2023 [facility] December 28, 2023 [facility] December 27, 2023 [facility] December 26, 2023 [facility] December 25, 2023 [facility] December 24, 2023 [facility] December 23, 2023 [facility] December 22, 2023 [facility] December 21, 2023 [facility] December 20, 2023 [facility] December 19, 2023 [facility] December 18, 2023 [facility] December 17, 2023 [facility] December 16, 2023 [facility] December 15, 2023 [facility] December 14, 2023 [facility] December 13, 2023 [facility] December 12, 2023 [facility] December 11, 2023 [facility] December 10, 2023 [facility] December 09, 2023 [facility] BP Sitting (Pre-Dialysis) 92/79 mmHg BP Standing (Pre-Dialysis) 80/65 mmHg Sitting Heart Rate Pre-Dialysis 80 BPM Standing Heart Rate Pre-Dialysis 80 BPM Temperature Pre-Dialysis 98 degF Weight Pre-Dialysis 105.3 kg December 09, 2023 [facility] December 08, 2023 [facility] December 07, 2023 [facility] December 06, 2023 [facility] BP Sitting (Pre-Dialysis) 139/92 mmHg Sitting Heart Rate Pre-Dialysis 74 BPM Temperature Pre-Dialysis 97.6 degF Weight Pre-Dialysis 107 kg December 06, 2023 [facility] December 05, 2023 [facility] December 04, 2023 [facility] December 03, 2023 [facility] December 02, 2023 [facility] BP Sitting (Pre-Dialysis) 132/86 mmHg Sitting Heart Rate Pre-Dialysis 78 BPM Temperature Pre-Dialysis 98.7 degF Weight Pre-Dialysis 109 kg December 02, 2023 [facility] December 01, 2023 [facility] November 30, 2023 [facility] November 29, 2023 [facility] November 28, 2023 [facility] November 27, 2023 [facility] November 26, 2023 [facility] November 25, 2023 [facility] November 24, 2023 [facility] November 23, 2023 [facility] November 22, 2023 [facility] November 21, 2023 [facility] November 20, 2023 [facility] November 19, 2023 [facility] November 18, 2023 [facility] November 17, 2023 [facility] November 16, 2023 [facility] November 15, 2023 [facility] November 14, 2023 [facility] November 13, 2023 [facility] November 12, 2023 [facility] November 11, 2023 [facility] BP Sitting (Pre-Dialysis) 124/88 mmH g BP Standing (Pre-Dialysis) 109/77 mmHg Sitting Heart Rate Pre-Dialysis 88 BPM Standing Heart Rate Pre-Dialysis 79 BPM Temperature Pre-Dialysis 97.9 degF Weight Pre-Dialysis 103.6 kg November 11, 2023 [facility] November 10, 2023 [facility] November 09, 2023 [facility] November 08, 2023 [facility] November 07, 2023 [facility] November 06, 2023 [facility] November 05, 2023 [facility] November 04, 2023 [facility] November 03, 2023 [facility] November 02, 2023 [facility] November 01, 2023 [facility] BP Sitting (Pre-Dialysis) 120/84 mmH g BP Standing (Pre-Dialysis) 78/57 mmHg Sitting Heart Rate Pre-Dialysis 75 BPM Standing Heart Rate Pre-Dialysis 78 BPM Temperature Pre-Dialysis 97.8 degF Weight Pre-Dialysis 104 kg November 01, 2023 [facility] October 31, 2023 [facility] October 30, 2023 [facility] October 29, 2023 [facility] October 28, 2023 [facility] October 27, 2023 [facility] October 26, 2023 [facility] October 25, 2023 [facility] October 24, 2023 [facility] October 23, 2023 [facility] October 22, 2023 [facility] October 21, 2023 [facility] October 20, 2023 [facility] October 19, 2023 [facility] October 18, 2023 [facility] October 17, 2023 [facility] October 16, 2023 [facility] October 15, 2023 [facility] October 14, 2023 [facility] BP Sitting (Pre-Dialysis) 81/58 mmHg Sitting Heart Rate Pre-Dialysis 82 BPM Temperature Pre-Dialysis 97.9 degF Weight Pre-Dialysis 104.5 kg October 14, 2023 [facility] October 13, 2023 [facility] October 12, 2023 [facility] October 06, 2023 [facility] October 05, 2023 [facility] October 04, 2023 [facility] October 03, 2023 [facility] October 02, 2023 [facility] October 01, 2023 [facility] September 27, 2023 [facility] September 26, 2023 [facility] September 25, 2023 [facility] September 24, 2023 [facility] September 23, 2023 [facility] September 22, 2023 [facility] September 21, 2023 [facility] September 20, 2023 [facility] September 19, 2023 [facility] September 18, 2023 [facility] September 17, 2023 [facility] September 16, 2023 [facility] September 15, 2023 [facility] September 14, 2023 [facility] September 13, 2023 [facility] September 12, 2023 [facility] September 11, 2023 [facility] September 10, 2023 [facility] September 09, 2023 [facility] BP Sitting (Pre-Dialysis) 143/92 mmHg BP Standing (Pre-Dialysis) 109/79 mmHg Sitting Heart Rate Pre-Dialysis 70 BPM Standing Heart Rate Pre-Dialysis 74 BPM Temperature Pre-Dialysis 97.9 degF Weight Pre-Dialysis 109 kg September 09, 2023 [facility] September 08, 2023 [facility] September 07, 2023 [facility] September 06, 2023 [facility] September 05, 2023 [facility] September 04, 2023 [facility] September 03, 2023 [facility] September 02, 2023 [facility] September 01, 2023 [facility] August 31, 2023 [facility] August 30, 2023 [facility] BP Sitting (Pre-Dialysis) 160/97 mmHg BP Standing (Pre-Dialysis) 139/92 mmHg Sitting Heart Rate Pre-Dialysis 78 BPM Standing Heart Rate Pre-Dialysis 81 BPM Temperature Pre-Dialysis 98.7 degF Weight Pre-Dialysis 109 kg August 30, 2023 [facility] August 29, 2023 [facility] August 28, 2023 [facility] August 27, 2023 [facility] August 26, 2023 [facility] August 25, 2023 [facility] August 24, 2023 [facility] August 23, 2023 [facility] August 22, 2023 [facility] August 21, 2023 [facility] August 20, 2023 [facility] August 19, 2023 [facility] BP Sitting (Pre-Dialysis) 151/98 mmHg BP Standing (Pre-Dialysis) 129/84 mmHg Sitting Heart Rate Pre-Dialysis 76 BPM Standing Heart Rate Pre-Dialysis 76 BPM Temperature Pre-Dialysis 98.6 degF Weight Pre-Dialysis 108.6 kg August 19, 2023 [facility] August 18, 2023 [facility] August 17, 2023 [facility] August 16, 2023 [facility] August 15, 2023 [facility] August 14, 2023 [facility] August 13, 2023 [facility] August 12, 2023 [facility] August 11, 2023 [facility] August 10, 2023 [facility] August 09, 2023 [facility] August 08, 2023 [facility] August 07, 2023 [facility] August 06, 2023 [facility] August 05, 2023 [facility] August 04, 2023 [facility] August 03, 2023 [facility] August 02, 2023 [facility] August 01, 2023 [facility] July 31, 2023 [facility] July 30, 2023 [facility] July 29, 2023 [facility] BP Sitting (Pre-Dialysis) 120/90 mmHg BP Standing (Pre-Dialysis) 92/71 mmHg Sitting Heart Rate Pre-Dialysis 72 BPM Standing Heart Rate Pre-Dialysis 75 BPM Temperature Pre-Dialysis 97.9 degF Weight Pre-Dialysis 107.7 kg July 29, 2023 [facility] July 28, 2023 [facility] July 27, 2023 [facility] July 26, 2023 [facility] July 25, 2023 [facility] July 24, 2023 [facility] July 23, 2023 [facility] July 22, 2023 [facility] July 21, 2023 [facility] July 20, 2023 [facility] July 19, 2023 [facility] July 18, 2023 [facility] July 17, 2023 [facility] July 16, 2023 [facility] July 15, 2023 [facility] BP Sitting (Pre-Dialysis) 113/84 mmHg BP Standing (Pre-Dialysis) 118/75 mmHg Sitting Heart Rate Pre-Dialysis 74 BPM Standing Heart Rate Pre-Dialysis 74 BPM Temperature Pre-Dialysis 98.3 degF Weight Pre-Dialysis 107.7 kg July 15, 2023 [facility] July 14, 2023 [facility] July 13, 2023 [facility] July 12, 2023 [facility] July 11, 2023 [facility] July 10, 2023 [facility] July 09, 2023 [facility] July 08, 2023 [facility] July 07, 2023 [facility] July 06, 2023 [facility] July 05, 2023 [facility] July 04, 2023 [facility] July 03, 2023 [facility] July 02, 2023 [facility] July 01, 2023 [facility] June 30, 2023 [facility] June 29, 2023 [facility] June 28, 2023 [facility] BP Sitting (Pre-Dialysis) 152/91 mmHg BP Standing (Pre-Dialysis) 134/88 mmHg Sitting Heart Rate Pre-Dialysis 71 BPM Standing Heart Rate Pre-Dialysis 76 BPM Temperature Pre-Dialysis 98.1 degF Weight Pre-Dialysis 105 kg June 28, 2023 [facility] June 27, 2023 [facility] June 26, 2023 [facility] June 25, 2023 [facility] June 24, 2023 [facility] June 23, 2023 [facility] June 22, 2023 [facility] June 21, 2023 [facility] June 20, 2023 [facility] June 19, 2023 [facility] June 18, 2023 [facility] June 17, 2023 [facility] June 16, 2023 [facility] June 15, 2023 [facility] June 14, 2023 [facility] June 13, 2023 [facility] June 12, 2023 [facility] June 11, 2023 [facility] June 10, 2023 [facility] BP Sitting (Pre-Dialysis) 119/92 mmHg BP Standing (Pre-Dialysis) 114/83 mmHg Sitting Heart Rate Pre-Dialysis 71 BPM Standing Heart Rate Pre-Dialysis 72 BPM Temperature Pre-Dialysis 98.1 degF Weight Pre-Dialysis 104 kg June 10, 2023 [facility] June 09, 2023 [facility] June 08, 2023 [facility] June 07[facility] 2023 [facility] June 06[facility] 2023 [facility] June 05[facility] 2023 [facility] June 04[facility] 2023 [facility] June 03, 2023 [facility] June 02, 2023 [facility] June 01, 2023 [facility] May 31, 2023 [facility] BP Sitting (Pre-Dialysis) 119/92 mmHg BP Standing (Pre-Dialysis) 97/65 mmHg Sitting Heart Rate Pre-Dialysis 67 BPM Standing Heart Rate Pre-Dialysis 74 BPM Temperature Pre-Dialysis 97.2 degF Weight Pre-Dialysis 102.2 kg May 31, 2023 [facility] May 30, 2023 [facility] May 29, 2023 [facility] May 28, 2023 [facility] May 27, 2023 [facility] May 26, 2023 [facility] May 25, 2023 [facility] May 24[facility] 2023 [facility] May 23, 2023 [facility] May 22, 2023 [facility] May 21, 2023 [facility] May 20, 2023 [facility] May 19[facility] 2023 [facility] May 18[facility] 2023 [facility] May 17[facility] 2023 [facility] May 16, 2023 [facility] May 15, 2023 [facility] May 14, 2023 [facility] May 13[facility] 2023 [facility] May 12, 2023 [facility] May 11[facility] 2023 [facility] May 10[facility] 2023 [facility] May 09[facility] 2023 [facility] May 08, 2023 [facility] May 07, 2023 [facility] May 06, 2023 [facility] BP Sitting (Pre-Dialysis) 109/74 mmHg BP Standing (Pre-Dialysis) 104/78 mmHg Sitting Heart Rate Pre-Dialysis 78 BPM Standing Heart Rate Pre-Dialysis 82 BPM Temperature Pre-Dialysis 97.9 degF Weight Pre-Dialysis 105.4 kg May 06, 2023 [facility] May 05, 2023 [facility] May 04, 2023 [facility] May 03, 2023 [facility] May 02, 2023 [facility] May 01, 2023 [facility] April 30, 2023 [facility] BP Sitting (Pre-Dialysis) 153/92 mmHg BP Standing (Pre-Dialysis) 143/88 mmHg Sitting Heart Rate Pre-Dialysis 75 BPM Standing Heart Rate Pre-Dialysis 78 BPM Temperature Pre-Dialysis 98.4 degF Weight Pre-Dialysis 104 kg April 30, 2023 [facility] April 29, 2023 [facility] April 28, 2023 [facility] April 27, 2023 [facility] April 26, 2023 [facility] April 25, 2023 [facility] April 24, 2023 [facility] April 23, 2023 [facility] April 22, 2023 [facility] April 21, 2023 [facility] April 20, 2023 [facility] April 19, 2023 [facility] April 18, 2023 [facility] April 17, 2023 [facility] April 16, 2023 [facility] April 15, 2023 [facility] BP Sitting (Pre-Dialysis) 118/83 mmHg BP Standing (Pre-Dialysis) 104/73 mmHg Sitting Heart Rate Pre-Dialysis 73 BPM Standing Heart Rate Pre-Dialysis 74 BPM Temperature Pre-Dialysis 97.2 degF Weight Pre-Dialysis 103.6 kg April 15, 2023 [facility] April 14, 2023 [facility] April 13, 2023 [facility] April 12, 2023 [facility] April 11, 2023 [facility] April 10, 2023 [facility] April 09, 2023 [facility] April 08, 2023 [facility] April 07, 2023 [facility] April 06, 2023 [facility] April 05, 2023 [facility] April 04, 2023 [facility] April 03, 2023 [facility] April 02, 2023 [facility] April 01, 2023 [facility] March 31, 2023 [facility] March 30, 2023 [facility] BP Sitting (Pre-Dialysis) 139/89 mmHg BP Standing (Pre-Dialysis) 109/73 mmHg Sitting Heart Rate Pre-Dialysis 69 BPM Standing Heart Rate Pre-Dialysis 71 BPM Temperature Pre-Dialysis 98.1 degF Weight Pre-Dialysis 102.3 kg March 30, 2023 [facility] March 29, 2023 [facility] March 28, 2023 [facility] March 27, 2023 [facility] March 26, 2023 [facility] March 25, 2023 [facility] March 24, 2023 [facility] March 23, 2023 [facility] March 22, 2023 [facility] March 21, 2023 [facility] March 20, 2023 [facility] March 19, 2023 [facility] March 18, 2023 [facility] March 17, 2023 [facility] March 16, 2023 [facility] March 15, 2023 [facility] March 14, 2023 [facility] March 13, 2023 [facility] March 12, 2023 [facility] March 11, 2023 [facility] BP Sitting (Pre-Dialysis) 122/77 mmHg BP Standing (Pre-Dialysis) 119/80 mmHg Sitting Heart Rate Pre-Dialysis 77 BPM Standing Heart Rate Pre-Dialysis 74 BPM Temperature Pre-Dialysis 97.9 degF Weight Pre-Dialysis 102 kg March 11, 2023 [facility] March 10, 2023 [facility] March 09, 2023 [facility] March 08, 2023 [facility] March 07, 2023 [facility] March 06, 2023 [facility] March 05, 2023 [facility] BP Sitting (Pre-Dialysis) 158/95 mmHg BP Standing (Pre-Dialysis) 147/81 mmHg Sitting Heart Rate Pre-Dialysis 73 BPM Standing Heart Rate Pre-Dialysis 78 BPM Temperature Pre-Dialysis 98.1 degF Weight Pre-Dialysis 104 kg March 05, 2023 [facility] March 04, 2023 [facility] March 03, 2023 [facility] March 02, 2023 [facility] March 01, 2023 [facility] February 28, 2023 [facility] February 27, 2023 [facility] February 26, 2023 [facility] February 25, 2023 [facility] February 24, 2023 [facility] February 23, 2023 [facility] February 22, 2023 [facility] February 21, 2023 [facility] February 20, 2023 [facility] February 19, 2023 [facility] February 18, 2023 [facility] 2023 [facility] February 16, 2023 [facility] February 15, 2023 [facility] February 14, 2023 [facility] February 13, 2023 [facility] February 12, 2023 [facility] February 11, 2023 [facility] BP Sitting (Pre-Dialysis) 122/79 mmHg BP Standing (Pre-Dialysis) 119/81 mmHg Sitting Heart Rate Pre-Dialysis 72 BPM Standing Heart Rate Pre-Dialysis 75 BPM Temperature Pre-Dialysis 98 degF Weight Pre-Dialysis 101.3 kg February 11, 2023 [facility] February 10, 2023 [facility] February 09, 2023 [facility] February 08, 2023 [facility] February 07, 2023 [facility] February 06, 2023 [facility] February 05, 2023 [facility] February 04, 2023 [facility] February 03, 2023 [facility] February 02, 2023 [facility] February 01, 2023 [facility] January 31, 2023 [facility] January 30, 2023 [facility] January 29, 2023 [facility] BP Sitting (Pre-Dialysis) 155/93 mmHg BP Standing (Pre-Dialysis) 141/90 mmHg Sitting Heart Rate Pre-Dialysis 68 BPM Standing Heart Rate Pre-Dialysis 72 BPM Temperature Pre-Dialysis 98.2 degF Weight Pre-Dialysis 100.4 kg January 29, 2023 [facility] January 28, 2023 [facility] January 27, 2023 [facility] January 26, 2023 [facility] January 25, 2023 [facility] January 24, 2023 [facility] January 23, 2023 [facility] January 22, 2023 [facility] January 21, 2023 [facility] January 20, 2023 [facility] January 19, 2023 [facility] January 18, 2023 [facility] January 17, 2023 [facility] January 16, 2023 [facility] January 15, 2023 [facility] January 14, 2023 [facility] January 13, 2023 [facility] January 12, 2023 [facility] January 11, 2023 [facility] January 10, 2023 [facility] January 09, 2023 [facility] January 08, 2023 [facility] January 07, 2023 [facility] BP Sitting (Pre-Dialysis) 114/78 mmHg BP Standing (Pre-Dialysis) 100/49 mmHg Sitting Heart Rate Pre-Dialysis 76 BPM Standing Heart Rate Pre-Dialysis 87 BPM Temperature Pre-Dialysis 97.2 degF Weight Pre-Dialysis 99.5 kg January 07, 2023 [facility] January 06, 2023 [facility] January 05, 2023 [facility] January 04, 2023 [facility] January 03, 2023 [facility] January 02, 2023 [facility] January 01, 2023 [facility] December 31, 2022 [facility] December 30, 2022 [facility] December 29, 2022 [facility] December 28, 2022 [facility] December 27, 2022 [facility] December 26, 2022 [facility] December 25, 2022 [facility] BP Sitting (Pre-Dialysis) 109/74 mmHg BP Standing (Pre-Dialysis) 94/63 mmHg Sitting Heart Rate Pre-Dialysis 68 BPM Standing Heart Rate Pre-Dialysis 72 BPM Temperature Pre-Dialysis 97.2 degF Weight Pre-Dialysis 99.8 kg December 25, 2022 [facility] December 24, 2022 [facility] December 23, 2022 [facility] December 22, 2022 [facility] December 21, 2022 [facility] December 18, 2022 [facility] December 17, 2022 [facility] December 16, 2022 [facility] December 15, 2022 [facility] December 14, 2022 [facility] December 13, 2022 [facility] December 12, 2022 [facility] December 11, 2022 [facility] December 10, 2022 [facility] BP Sitting (Pre-Dialysis) 160/99 mmHg BP Standing (Pre-Dialysis) 146/98 mmHg Sitting Heart Rate Pre-Dialysis 89 BPM Standing Heart Rate Pre-Dialysis 98 BPM Temperature Pre-Dialysis 98.1 degF Weight Pre-Dialysis 97.8 kg December 10, 2022 [facility] December 09, 2022 [facility] December 08, 2022 [facility] December 07, 2022 [facility] December 06, 2022 [facility] December 05, 2022 [facility] December 04, 2022 [facility] December 03, 2022 [facility] December 02, 2022 [facility] December 01, 2022 [facility] November 30, 2022 [facility] November 29, 2022 [facility] November 28, 2022 [facility] November 27, 2022 [facility] BP Sitting (Pre-Dialysis) 136/88 mmHg BP Standing (Pre-Dialysis) 132/78 mmHg Sitting Heart Rate Pre-Dialysis 68 BPM Standing Heart Rate Pre-Dialysis 69 BPM Temperature Pre-Dialysis 98.7 degF Weight Pre-Dialysis 97.1 kg November 27, 2022 [facility] November 26, 2022 [facility] November 25, 2022 [facility] November 24, 2022 [facility] November 23, 2022 [facility] November 22, 2022 [facility] November 21, 2022 [facility] November 20, 2022 [facility] November 19, 2022 [facility] November 18, 2022 [facility] November 17, 2022 [facility] November 16, 2022 [facility] November 15, 2022 [facility] November 14, 2022 [facility] November 13, 2022 [facility] November 12, 2022 [facility] November 11, 2022 [facility] BP Sitting (Pre-Dialysis) 131/80 mmH g BP Standing (Pre-Dialysis) 121/73 mmHg Sitting Heart Rate Pre-Dialysis 71 BPM Standing Heart Rate Pre-Dialysis 74 BPM Temperature Pre-Dialysis 98.1 degF Weight Pre-Dialysis 97 kg November 11, 2022 [facility] November 10, 2022 [facility] November 09, 2022 [facility] November 08, 2022 [facility] November 07, 2022 [facility] November 06, 2022 [facility] November 05, 2022 [facility] November 04, 2022 [facility] BP Sitting (Pre-Dialysis) 152/92 mmH g BP Standing (Pre-Dialysis) 148/88 mmHg Sitting Heart Rate Pre-Dialysis 77 BPM Standing Heart Rate Pre-Dialysis 78 BPM Temperature Pre-Dialysis 98.5 degF Weight Pre-Dialysis 94.4 kg November 04, 2022 [facility] November 03, 2022 [facility] November 02, 2022 [facility] November 01, 2022 [facility] October 31, 2022 [facility] October 30, 2022 [facility] October 29, 2022 [facility] October 28, 2022 [facility] October 27, 2022 [facility] October 26, 2022 [facility] October 25, 2022 [facility] October 24, 2022 [facility] October 23, 2022 [facility] October 22, 2022 [facility] October 21, 2022 [facility] October 20, 2022 [facility] October 19, 2022 [facility] October 18, 2022 [facility] October 17, 2022 [facility] October 16, 2022 [facility] October 15, 2022 [facility] October 14, 2022 [facility] October 13, 2022 [facility] October 12, 2022 [facility] October 10, 2022 [facility] October 09, 2022 [facility] October 08, 2022 [facility] BP Sitting (Pre-Dialysis) 154/102 mmHg BP Standing (Pre-Dialysis) 151/101 mmHg Sitting Heart Rate Pre-Dialysis 75 BPM Standing Heart Rate Pre-Dialysis 78 BPM Temperature Pre-Dialysis 97.9 degF Weight Pre-Dialysis 90.8 kg October 08, 2022 [facility] October 07, 2022 [facility] October 06, 2022 [facility] October 05, 2022 [facility] October 04, 2022 [facility] October 03, 2022 [facility] October 02, 2022 [facility] October 01, 2022 [facility] September 30, 2022 [facility] September 29, 2022 [facility] BP Sitting (Pre-Dialysis) 160/97 mmHg BP Standing (Pre-Dialysis) 144/89 mmHg Sitting Heart Rate Pre-Dialysis 80 BPM Standing Heart Rate Pre-Dialysis 85 BPM Temperature Pre-Dialysis 98 degF Weight Pre-Dialysis 90.8 kg September 29, 2022 [facility] September 28, 2022 [facility] September 27, 2022 [facility] September 26, 2022 [facility] September 25, 2022 [facility] September 24, 2022 [facility] September 23, 2022 [facility] September 22, 2022 [facility] September 21, 2022 [facility] September 20, 2022 [facility] September 19, 2022 [facility] September 18, 2022 [facility] September 17, 2022 [facility] September 16, 2022 [facility] September 15, 2022 [facility] September 14, 2022 [facility] September 13, 2022 [facility] September 12, 2022 [facility] September 11, 2022 [facility] September 10, 2022 [facility] BP Sitting (Pre-Dialysis) 162/78 mmHg BP Standing (Pre-Dialysis) 125/85 mmHg Sitting Heart Rate Pre-Dialysis 75 BPM Standing Heart Rate Pre-Dialysis 82 BPM Temperature Pre-Dialysis 97.7 degF Weight Pre-Dialysis 92.6 kg September 10, 2022 [facility] September 09, 2022 [facility] September 08, 2022 [facility] September 07, 2022 [facility] September 06, 2022 [facility] September 05, 2022 [facility] September 04, 2022 [facility] BP Sitting (Pre-Dialysis) 152/95 mmHg BP Standing (Pre-Dialysis) 141/94 mmHg Sitting Heart Rate Pre-Dialysis 87 BPM Standing Heart Rate Pre-Dialysis 91 BPM Temperature Pre-Dialysis 97 degF Weight Pre-Dialysis 93 kg September 04, 2022 [facility] September 03, 2022 [facility] September 02, 2022 [facility] September 01, 2022 [facility] August 31, 2022 [facility] August 30, 2022 [facility] August 29, 2022 [facility] August 28, 2022 [facility] August 27, 2022 [facility] August 26, 2022 [facility] August 25, 2022 [facility] August 24, 2022 [facility] August 23, 2022 [facility] August 22, 2022 [facility] August 21, 2022 [facility] August 20, 2022 [facility] August 19, 2022 [facility] August 18, 2022 [facility] August 16, 2022 [facility] August 15, 2022 [facility] August 14, 2022 [facility] August 13, 2022 [facility] BP Sitting (Pre-Dialysis) 116/90 mmHg BP Standing (Pre-Dialysis) 124/92 mmHg Sitting Heart Rate Pre-Dialysis 95 BPM Standing Heart Rate Pre-Dialysis 95 BPM Temperature Pre-Dialysis 97 degF Weight Pre-Dialysis 90.3 kg August 13, 2022 [facility] August 12, 2022 [facility] August 11, 2022 [facility] August 10, 2022 [facility] August 09, 2022 [facility] August 08, 2022 [facility] August 07, 2022 [facility] August 06, 2022 [facility] August 05, 2022 [facility] August 04, 2022 [facility] August 03, 2022 [facility] August 02, 2022 [facility] August 01, 2022 [facility] July 31, 2022 [facility] BP Sitting (Pre-Dialysis) 100/67 mmHg BP Standing (Pre-Dialysis) 100/67 mmHg Sitting Heart Rate Pre-Dialysis 87 BPM Standing Heart Rate Pre-Dialysis 87 BPM Temperature Pre-Dialysis 98.1 degF Weight Pre-Dialysis 90.4 kg July 31, 2022 [facility] July 30, 2022 [facility] July 29, 2022 [facility] July 28, 2022 [facility] July 27, 2022 [facility] July 20, 2022 [facility] July 19, 2022 [facility] July 18, 2022 [facility] July 17, 2022 [facility] July 16, 2022 [facility] July 15, 2022 [facility] July 14, 2022 [facility] July 13, 2022 [facility] July 12, 2022 [facility] July 11, 2022 [facility] July 10, 2022 [facility] July 09, 2022 [facility] July 08, 2022 [facility] July 07, 2022 [facility] BP Sitting (Pre-Dialysis) 108/69 mmHg BP Standing (Pre-Dialysis) 96/62 mmHg Sitting Heart Rate Pre-Dialysis 71 BPM Standing Heart Rate Pre-Dialysis 83 BPM Temperature Pre-Dialysis 96.8 degF July 07, 2022 [facility] July 06, 2022 [facility] July 05, 2022 [facility] July 04, 2022 [facility] July 03, 2022 [facility] July 02, 2022 [facility] July 01, 2022 [facility] June 30, 2022 [facility] June 29, 2022 [facility] June 28, 2022 [facility] June 27, 2022 [facility] June 26, 2022 [facility] June 25, 2022 [facility] June 24, 2022 [facility] June 23, 2022 [facility] June 22, 2022 [facility] June 21, 2022 [facility] June 20, 2022 [facility] June 19, 2022 [facility] June 18, 2022 [facility] June 17, 2022 [facility] June 16, 2022 [facility] June 15, 2022 [facility] June 14, 2022 [facility] June 13, 2022 [facility] June 12, 2022 [facility] BP Sitting (Pre-Dialysis) 115/93 mmHg BP Standing (Pre-Dialysis) 120/103 mmHg Sitting Heart Rate Pre-Dialysis 84 BPM Standing Heart Rate Pre-Dialysis 85 BPM Temperature Pre-Dialysis 96.8 degF Weight Pre-Dialysis 94 kg June 12, 2022 [facility] June 11, 2022 [facility] June 10, 2022 [facility] June 09, 2022 [facility] June 08, 2022 [facility] June 07, 2022 [facility] June 06, 2022 [facility] June 05, 2022 [facility] June 04, 2022 [facility] June 03, 2022 [facility] June 02, 2022 [facility] June 01, 2022 [facility] May 31, 2022 [facility] May 30, 2022 [facility] May 29, 2022 [facility] May 28, 2022 [facility] BP Sitting (Pre-Dialysis) 122/86 mmHg BP Standing (Pre-Dialysis) 114/79 mmHg Sitting Heart Rate Pre-Dialysis 80 BPM Standing Heart Rate Pre-Dialysis 84 BPM Temperature Pre-Dialysis 97.5 degF Weight Pre-Dialysis 93.7 kg May 28, [facility]22 [facility] May 27, [facility]22 [facility] May 26, 2022 [facility] May 25, 2022 [facility] May 24[facility] 2022 [facility] May 23[facility] 2022 [facility] May 22, 2022 [facility] May 21[facility] 2022 [facility] May 20[facility] 2022 [facility] May 19, 2022 [facility] BP Sitting (Pre-Dialysis) 155/104 mmHg BP Standing (Pre-Dialysis) 124/94 mmHg Sitting Heart Rate Pre-Dialysis 84 BPM Standing Heart Rate Pre-Dialysis 91 BPM Temperature Pre-Dialysis 97.7 degF Weight Pre-Dialysis 94.5 kg May 19, 2022 [facility] May 18, 2022 [facility] May 17[facility] 2022 [facility] May 16, 2022 [facility] May 15, 2022 [facility] May 14[facility] 2022 [facility] May 13[facility] 2022 [facility] May 12, 2022 [facility] May 11[facility] 2022 [facility] May 10[facility] 2022 [facility] May 09, 2022 [facility] May 08, 2022 [facility] May 07, 2022 [facility] BP Sitting (Pre-Dialysis) 151/94 mmHg BP Standing (Pre-Dialysis) 120/87 mmHg Sitting Heart Rate Pre-Dialysis 89 BPM Standing Heart Rate Pre-Dialysis 92 BPM Temperature Pre-Dialysis 97.6 degF Weight Pre-Dialysis 93.4 kg May 07, 2022 [facility] May 06, 2022 [facility] May 05[facility] 2022 [facility] May 04, 2022 [facility] May 03, 2022 [facility] May 02, 2022 [facility] May 01, 2022 [facility] April 30, 2022 [facility] April 29[facility] 2022 [facility] April 28[facility] 2022 [facility] April 27, 2022 [facility] April 26, 2022 [facility] April 25, 2022 [facility] April 24[facility] 2022 [facility] April 23, 2022 [facility] April 22, 2022 [facility] April 21, 2022 [facility] BP Sitting (Pre-Dialysis) 108/74 mmHg BP Standing (Pre-Dialysis) 120/71 mmHg Sitting Heart Rate Pre-Dialysis 71 BPM Standing Heart Rate Pre-Dialysis 74 BPM Temperature Pre-Dialysis 98.1 degF Weight Pre-Dialysis 95.2 kg April 21, 2022 [facility] April 20, 2022 [facility] April 19, 2022 [facility] April 18, 2022 [facility] April 17, 2022 [facility] April 16, 2022 [facility] April 15, 2022 [facility] April 14, 2022 [facility] April 13, 2022 [facility] April 12, 2022 [facility] April 11, 2022 [facility] April 10, 2022 [facility] April 09, 2022 [facility] BP Sitting (Pre-Dialysis) 124/86 mmHg BP Standing (Pre-Dialysis) 93/77 mmHg Sitting Heart Rate Pre-Dialysis 71 BPM Standing Heart Rate Pre-Dialysis 74 BPM Temperature Pre-Dialysis 96.8 degF Weight Pre-Dialysis 93.6 kg April 09, 2022 [facility] April 08, 2022 [facility] April 07, 2022 [facility] April 06, 2022 [facility] April 05, 2022 [facility] April 04, 2022 [facility] April 03, 2022 [facility] April 02, 2022 [facility] April 01, 2022 [facility] March 31, 2022 [facility] BP Sitting (Pre-Dialysis) 125/86 mmHg BP Standing (Pre-Dialysis) 109/85 mmHg Sitting Heart Rate Pre-Dialysis 73 BPM Standing Heart Rate Pre-Dialysis 74 BPM Temperature Pre-Dialysis 97.3 degF Weight Pre-Dialysis 95.3 kg March 31, 2022 [facility] March 30, 2022 [facility] March 29, 2022 [facility] March 28, 2022 [facility] March 27, 2022 [facility] March 26, 2022 [facility] March 25, 2022 [facility] March 24, 2022 [facility] March 23, 2022 [facility] March 22, 2022 [facility] March 21, 2022 [facility] March 20, 2022 [facility] March 19, 2022 [facility] March 18, 2022 [facility] BP Sitting (Pre-Dialysis) 154/89 mmHg BP Standing (Pre-Dialysis) 131/88 mmHg Sitting Heart Rate Pre-Dialysis 73 BPM Standing Heart Rate Pre-Dialysis 77 BPM Temperature Pre-Dialysis 97.5 degF Weight Pre-Dialysis 96.8 kg March 18, 2022 [facility] March 17, 2022 [facility] March 16, 2022 [facility] March 15, 2022 [facility] March 14, 2022 [facility] March 13, 2022 [facility] March 12, 2022 [facility] March 11, 2022 [facility] March 10, 2022 [facility] March 09, 2022 [facility] March 08, 2022 [facility] March 07, 2022 [facility] March 06, 2022 [facility] March 05, 2022 [facility] March 04, 2022 [facility] March 03, 2022 [facility] BP Sitting (Pre-Dialysis) 133/86 mmHg BP Standing (Pre-Dialysis) 124/83 mmHg Sitting Heart Rate Pre-Dialysis 70 BPM Standing Heart Rate Pre-Dialysis 71 BPM Temperature Pre-Dialysis 98.1 degF Weight Pre-Dialysis 95.4 kg March 03, 2022 [facility] March 02, 2022 [facility] March 01, 2022 [facility] February 28, 2022 [facility] February 27, 2022 [facility] February 26, 2022 [facility] February 25, 2022 [facility] February 24, 2022 [facility] February 23, 2022 [facility] February 22, 2022 [facility] February 21, 2022 [facility] February 20, 2022 [facility] February 19, 2022 [facility] February 18, 2022 CCPD 2022 CCPD February 16, 2022 [facility] February 15, 2022 [facility] February 14, 2022 [facility] February 13, 2022 [facility] February 12, 2022 [facility] February 11, 2022 [facility] BP Sitting (Pre-Dialysis) 154/88 mmHg BP Standing (Pre-Dialysis) 143/86 mmHg Sitting Heart Rate Pre-Dialysis 79 BPM Standing Heart Rate Pre-Dialysis 80 BPM Temperature Pre-Dialysis 97.5 degF Weight Pre-Dialysis 94.9 kg February 11, 2022 [facility] February 10, 2022 [facility] February 09, 2022 [facility] BP Sitting (Pre-Dialysis) 141/89 mmHg BP Standing (Pre-Dialysis) 124/82 mmHg Sitting Heart Rate Pre-Dialysis 74 BPM Standing Heart Rate Pre-Dialysis 74 BPM Temperature Pre-Dialysis 97.2 degF Weight Pre-Dialysis 94.7 kg February 09, 2022 [facility] February 08, 2022 [facility] February 07, 2022 [facility] February 06, 2022 [facility] February 05, 2022 [facility] February 04, 2022 [facility] February 03, 2022 [facility] February 02, 2022 [facility] February 01, 2022 [facility] January 31, 2022 [facility] January 30, 2022 [facility] January 29, 2022 [facility] January 28, 2022 [facility] January 27, 2022 [facility] BP Sitting (Pre-Dialysis) 152/95 mmHg BP Standing (Pre-Dialysis) 130/89 mmHg Sitting Heart Rate Pre-Dialysis 74 BPM Standing Heart Rate Pre-Dialysis 77 BPM Temperature Pre-Dialysis 97 degF Weight Pre-Dialysis 91.8 kg January 27, 2022 [facility] January 26, 2022 [facility] DIALYSIS ORDER Dialysis Procedure Orders Type of Dialysis Procedure Order Order Date/Time Observations CCPD December 16, 2023 Target Weight 104 kg Ordered Access Type Peritoneal dialysis catheter Vendor Beck Total Fill Volume per 24 Hour 23882 mL Target Cycler Total Time 10hr Treatment Location Display At Patient's Home Target Weight with Prescribed Day Fill Y es Training Element No Training Incremental Increase Flag No Day Exchange Delivery Method No Day Exch blanca Overnight Exchange Delivery Method Cycle r Overnight Exchange Number of Exchanges 5 Overnight Exchange Calcium 2.5 mEq/L Overnight Exchange Magnesium 0.5 mEq/L Overnight Exchange Target Dwell Time 10 hr 0 Min Overnight Exchange Last Fill Target Dwel l TimeOvernight Exchange Info 14 hr Min Fill Number: 1 pd_solution_strength_code_id Varied-See Instruction(s) Fill Number: 2 fill_volume pd_solution_strength_code_id Varied-See Instruction(s) Fill Number: 3 fill_volume pd_solution_strength_code_id Varied-See Instruction(s) Fill Number: 4 fill_volume pd_solution_strength_code_id Varied-See Instruction(s) Fill Number: 5 fill_volume pd_solution_strength_code_id Varied-See Instruction(s) Fill Number: Last fill_volume pd_solution_strength_code_id Extraneal 7 .5% (Icodextrin) Results Adequacy Description Draw Date Result/Unit Status Ref Range Result Comments NPCR PD MALE 2024-01-27 18:06:37 0.62 G/KG/D F CRE CLR UR/BSA 2024-01-27 18:06:37 0 mL/min F 85.0-125.0 UREA CLR UR/BSA 2024-01-27 18:06:37 0.2 mL/min F 64.0-99.0 UREA CLR UR 2024-01-27 18:06:37 0.3 mL/min F PNA (PD) 2024-01-27 18:06:37 66.2 g/day F nPNA (PD MALE) 2024-01-27 18:06:37 0.68 G/KG/D F PCR PD MALE 2024-01-27 18:06:37 61 g/day F Urea Gen Rate 2024-01-27 18:06:37 10.1 GM/D F CRE CLR UR 2024-01-27 18:06:37 0 mL/min F 97.0-137.0 L/WK/1.73 RESID 2024-01-27 18:06:37 2.25 L/WK/B F L/WK/1.73 TOTAL 2024-01-27 18:06:37 53.49 L/WK/B F KT/V RESID (M) 2024-01-27 18:06:37 0.05 Kt/V F KT/V TOTAL (M) 2024-01-27 18:06:37 1.71 Kt/V F L/WK RESID CC 2024-01-27 18:06:37 3.06 L/wk F Urea nitrogen [Mass/volume] in Urine 2024-01-27 18:05:23 185 mg/dL F Creatinine [Mass/volume] in Urine 2024-01-27 18:05:23 63.42 mg/dL F L/WK PDF CC 2024-01-27 17:20:15 69.63 L/wk F KT/V PDF (M) 2024-01-27 17:20:15 1.67 Kt/V F L/WK/1.73 PDF 2024-01-27 17:20:15 51.24 L/WK/B F Creatinine [Mass/volume] in Peritoneal dialysis fluid 2024-01-27 17:19:13 6.91 mg/dL F Urea nitrogen [Mass/volume] in Peritoneal fluid --24 hours post peritoneal dialysis 2024-01-27 17:19:13 36 mg/dL F BUN/CREAT 2024-01-27 16:45:58 3.8 Calc F 6.9-32.9 BSA NOHELIA 2024-01-27 16:45:58 2.35 sq m F TBW DAVIS MALE 2024-01-27 16:45:58 56.75 Liters F Urea nitrogen [Mass/volume] in Serum or Plasma 2024-01-27 16:44:27 49 mg/dL F 9.0-23.0 Creatinine [Mass/volume] in Serum or Plasma 2024-01-27 16:44:27 12.77 mg/dL F 0.7-1.3 Total Volume of EFFL/DIAL 2024-01-26 20:55:14 86605 mLs F PATIENT AGE 2024-01-26 20:55:14 53 Years F HEIGHT IN INCHES 2024-01-26 20:55:14 70 Inches F BODY WEIGHT (LBS) 2024-01-26 20:55:14 264 lbs F MINIMUM GOAL: KT/V PD 2024-01-26 20:55:14 1.7 F AMPUTATE FACTOR 2024-01-26 20:55:14 0 F COLLECTION TIME FOR URINE 2024-01-26 20:55:14 1440 min F TOTAL VOLUME-24 HR URINE 2024-01-26 20:55:14 100 mL F BUN/CREAT 2024-01-01 14:44:56 4.2 Calc F 6.9-32.9 Urea nitrogen [Mass/volume] in Serum or Plasma 2024-01-01 14:44:17 61 mg/dL F 9.0-23.0 Creatinine [Mass/volume] in Serum or Plasma 2024-01-01 14:44:17 14.64 mg/dL F 0.7-1.3 BUN/CREAT 2023-12-07 15:23:43 4.6 Calc F 6.9-32.9 Urea nitrogen [Mass/volume] in Serum or Plasma 2023-12-07 15:23:27 53 mg/dL F 9.0-23.0 Creatinine [Mass/volume] in Serum or Plasma 2023-12-07 15:23:27 11.63 mg/dL F 0.7-1.3 NPCR PD MALE 2023-11-02 20:56:41 0.55 G/KG/D F UREA CLR UR/BSA 2023-11-02 20:56:41 0.1 mL/min F 64.0-99.0 CRE CLR UR/BSA 2023-11-02 20:56:41 0 mL/min F 85.0-125.0 UREA CLR UR 2023-11-02 20:56:41 0.2 mL/min F PNA (PD) 2023-11-02 20:56:41 53.8 g/day F nPNA (PD MALE) 2023-11-02 20:56:41 0.61 G/KG/D F PCR PD MALE 2023-11-02 20:56:41 48 g/day F Urea Gen Rate 2023-11-02 20:56:41 7.6 GM/D F L/WK/1.73 RESID 2023-11-02 20:56:41 1.45 L/WK/B F CRE CLR UR 2023-11-02 20:56:41 0 mL/min F 97.0-137.0 L/WK/1.73 TOTAL 2023-11-02 20:56:41 53.83 L/WK/B F KT/V RESID (M) 2023-11-02 20:56:41 0.03 Kt/V F KT/V TOTAL (M) 2023-11-02 20:56:41 1.62 Kt/V F L/WK RESID CC 2023-11-02 20:56:41 1.85 L/wk F Creatinine [Mass/volume] in Urine 2023-11-02 20:56:19 35.16 mg/dL F Urea nitrogen [Mass/volume] in Urine 2023-11-02 20:56:19 98 mg/dL F L/WK PDF CC 2023-11-02 20:02:33 67 L/wk F KT/V PDF (M) 2023-11-02 20:02:33 1.59 Kt/V F L/WK/1.73 PDF 2023-11-02 20:02:33 52.38 L/WK/B F Urea nitrogen [Mass/volume] in Peritoneal fluid --24 hours post peritoneal dialysis 2023-11-02 20:02:20 30 mg/dL F Creatinine [Mass/volume] in Peritoneal dialysis fluid 2023-11-02 20:02:20 6.66 mg/dL F BUN/CREAT 2023-11-02 18:31:19 3.7 Calc F 6.9-32.9 BSA NOHELIA 2023-11-02 18:31:19 2.21 sq m F TBW DAVIS MALE 2023-11-02 18:31:19 51.4 Liters F Urea nitrogen [Mass/volume] in Serum or Plasma 2023-11-02 18:31:14 43 mg/dL F 9.0-23.0 Creatinine [Mass/volume] in Serum or Plasma 2023-11-02 18:31:14 11.67 mg/dL F 0.7-1.3 Total Volume of EFFL/DIAL 2023-11-01 20:22:51 18430 mLs F PATIENT AGE 2023-11-01 20:22:51 53 Years F BODY WEIGHT (LBS) 2023-11-01 20:22:51 229 lbs F HEIGHT IN INCHES 2023-11-01 20:22:51 70 Inches F MINIMUM GOAL: KT/V PD 2023-11-01 20:22:51 1.7 F AMPUTATE FACTOR 2023-11-01 20:22:51 0 F COLLECTION TIME FOR URINE 2023-11-01 20:22:51 1440 min F TOTAL VOLUME-24 HR URINE 2023-11-01 20:22:51 100 mL F BUN/CREAT 2023-10-15 14:40:41 3.5 Calc F 6.9-32.9 Urea nitrogen [Mass/volume] in Serum or Plasma 2023-10-15 14:40:34 47 mg/dL F 9.0-23.0 Creatinine [Mass/volume] in Serum or Plasma 2023-10-15 14:40:34 13.26 mg/dL F 0.7-1.3 BUN/CREAT 2023-09-01 05:48:12 5 Calc F 6.9-32.9 Urea nitrogen [Mass/volume] in Serum or Plasma 2023-09-01 05:47:38 59 mg/dL F 9.0-23.0 Creatinine [Mass/volume] in Serum or Plasma 2023-09-01 05:47:38 11.78 mg/dL F 0.7-1.3 NPCR PD MALE 2023-08-02 12:49:01 0.58 G/KG/D K nPNA (PD MALE) 2023-08-02 12:49:01 0.64 G/KG/D K PNA (PD) 2023-08-02 12:49:01 57.8 g/day K PCR PD MALE 2023-08-02 12:49:01 52 g/day K L/WK PDF CC 2023-08-02 12:49:01 64.62 L/wk K Urea Gen Rate 2023-08-02 12:49:01 8.4 GM/D K L/WK/1.73 TOTAL 2023-08-02 12:49:01 57.55 L/WK/B K KT/V PDF (M) 2023-08-02 12:49:01 1.65 Kt/V K KT/V TOTAL (M) 2023-08-02 12:49:01 1.79 Kt/V K L/WK/1.73 PDF 2023-08-02 12:49:01 49.79 L/WK/B K Total Volume of EFFL/DIAL 2023-08-02 12:48:59 83302 mLs F BUN/CREAT 2023-07-31 05:42:08 3.9 Calc F 6.9-32.9 UREA CLR UR/BSA 2023-07-31 05:42:08 0.6 mL/min F 64.0-99.0 CRE CLR UR/BSA 2023-07-31 05:42:08 1 mL/min F 85.0-125.0 UREA CLR UR 2023-07-31 05:42:08 0.7 mL/min F CRE CLR UR 2023-07-31 05:42:08 1 mL/min F 97.0-137.0 L/WK/1.73 RESID 2023-07-31 05:42:08 7.76 L/WK/B F KT/V RESID (M) 2023-07-31 05:42:08 0.14 Kt/V F L/WK RESID CC 2023-07-31 05:42:08 10.07 L/wk F Urea nitrogen [Mass/volume] in Serum or Plasma 2023-07-31 05:41:36 42 mg/dL F 9.0-23.0 Creatinine [Mass/volume] in Serum or Plasma 2023-07-31 05:41:36 10.75 mg/dL F 0.7-1.3 Urea nitrogen [Mass/volume] in Urine 2023-07-31 04:22:40 148 mg/dL F Creatinine [Mass/volume] in Urine 2023-07-31 04:22:40 65.25 mg/dL F BSA NOHELIA 2023-07-30 21:55:09 2.25 sq m F TBW DAVIS MALE 2023-07-30 21:55:09 52.62 Liters F Urea nitrogen [Mass/volume] in Peritoneal fluid --24 hours post peritoneal dialysis 2023-07-30 21:54:48 34 mg/dL F Creatinine [Mass/volume] in Peritoneal dialysis fluid 2023-07-30 21:54:48 6.46 mg/dL F COLLECTION TIME FOR URINE 2023-07-29 16:58:17 1440 min F TOTAL VOLUME-24 HR URINE 2023-07-29 16:58:17 300 mL F PATIENT AGE 2023-07-29 16:58:17 53 Years F BODY WEIGHT (LBS) 2023-07-29 16:58:17 237 lbs F HEIGHT IN INCHES 2023-07-29 16:58:17 70 Inches F AMPUTATE FACTOR 2023-07-29 16:58:17 0 F MINIMUM GOAL: KT/V PD 2023-07-29 16:58:17 1.7 F BUN/CREAT 2023-06-29 23:07:17 4.5 Calc F 6.9-32.9 Urea nitrogen [Mass/volume] in Serum or Plasma 2023-06-29 23:06:40 48 mg/dL F 9.0-23.0 Creatinine [Mass/volume] in Serum or Plasma 2023-06-29 23:06:40 10.75 mg/dL F 0.7-1.3 BUN/CREAT 2023-06-02 03:14:15 5 Calc F 6.9-32.9 Urea nitrogen [Mass/volume] in Serum or Plasma 2023-06-02 03:13:32 56 mg/dL F 9.0-23.0 Creatinine [Mass/volume] in Serum or Plasma 2023-06-02 03:13:32 11.15 mg/dL F 0.7-1.3 NPCR PD MALE 2023-05-07 05:43:43 0.73 G/KG/D F UREA CLR UR/BSA 2023-05-07 05:43:43 0.8 mL/min F 64.0-99.0 UREA CLR UR 2023-05-07 05:43:43 1 mL/min F nPNA (PD MALE) 2023-05-07 05:43:43 0.82 G/KG/D F PNA (PD) 2023-05-07 05:43:43 72.8 g/day F PCR PD MALE 2023-05-07 05:43:43 65 g/day F Urea Gen Rate 2023-05-07 05:43:43 11.4 GM/D F L/WK/1.73 RESID 2023-05-07 05:43:43 9.3 L/WK/B F L/WK/1.73 TOTAL 2023-05-07 05:43:43 54.13 L/WK/B F L/WK RESID CC 2023-05-07 05:43:43 11.9 L/wk F KT/V TOTAL (M) 2023-05-07 05:43:43 1.75 Kt/V F KT/V RESID (M) 2023-05-07 05:43:43 0.2 Kt/V F TOTAL VOLUME-24 HR URINE 2023-05-03 15:31:19 450 mL F BUN/CREAT 2023-05-02 04:54:56 5 Calc F 6.9-32.9 CRE CLR UR/BSA 2023-05-02 04:54:56 1 mL/min F 85.0-125.0 CRE CLR UR 2023-05-02 04:54:56 1 mL/min F 97.0-137.0 L/WK PDF CC 2023-05-02 04:54:56 57.32 L/wk F KT/V PDF (M) 2023-05-02 04:54:56 1.55 Kt/V F L/WK/1.73 PDF 2023-05-02 04:54:56 44.83 L/WK/B F Urea nitrogen [Mass/volume] in Serum or Plasma 2023-05-02 04:53:52 60 mg/dL F 9.0-23.0 Creatinine [Mass/volume] in Serum or Plasma 2023-05-02 04:53:52 12 mg/dL F 0.7-1.3 BSA NOHELIA 2023-05-02 02:21:27 2.21 sq m F TBW DAVIS MALE 2023-05-02 02:21:27 51.37 Liters F Urea nitrogen [Mass/volume] in Urine 2023-05-01 23:12:02 195 mg/dL F Creatinine [Mass/volume] in Urine 2023-05-01 23:12:02 51.64 mg/dL F Creatinine [Mass/volume] in Peritoneal dialysis fluid 2023-05-01 19:36:01 6.49 mg/dL F Urea nitrogen [Mass/volume] in Peritoneal fluid --24 hours post peritoneal dialysis 2023-05-01 19:36:01 45 mg/dL F Total Volume of EFFL/DIAL 2023-04-30 21:52:05 68363 mLs F PATIENT AGE 2023-04-30 21:52:05 53 Years F BODY WEIGHT (LBS) 2023-04-30 21:52:05 228.8 lbs F HEIGHT IN INCHES 2023-04-30 21:52:05 70 Inches F MINIMUM GOAL: KT/V PD 2023-04-30 21:52:05 1.7 F AMPUTATE FACTOR 2023-04-30 21:52:05 0 F COLLECTION TIME FOR URINE 2023-04-30 21:52:05 1440 min F BUN/CREAT 2023-03-31 20:44:08 5 Calc F 6.9-32.9 Urea nitrogen [Mass/volume] in Serum or Plasma 2023-03-31 20:43:14 51 mg/dL F 9.0-23.0 Creatinine [Mass/volume] in Serum or Plasma 2023-03-31 20:43:14 10.28 mg/dL F 0.7-1.3 BUN/CREAT 2023-03-06 15:22:12 5 Calc F 6.9-32.9 Creatinine [Mass/volume] in Serum or Plasma 2023-03-06 15:21:16 10.29 mg/dL F 0.7-1.3 Urea nitrogen [Mass/volume] in Serum or Plasma 2023-03-06 15:21:14 51 mg/dL F 9.0-23.0 UREA CLR UR/BSA 2023-02-01 19:00:38 0.8 mL/min F 64.0-99.0 CRE CLR UR/BSA 2023-02-01 19:00:38 1 mL/min F 85.0-125.0 UREA CLR UR 2023-02-01 19:00:38 1 mL/min F CRE CLR UR 2023-02-01 19:00:38 2 mL/min F 97.0-137.0 L/WK/1.73 RESID 2023-02-01 19:00:38 10.19 L/WK/B F L/WK/1.73 TOTAL 2023-02-01 19:00:38 51.73 L/WK/B F KT/V RESID (M) 2023-02-01 19:00:38 0.21 Kt/V F KT/V TOTAL (M) 2023-02-01 19:00:38 1.67 Kt/V F L/WK RESID CC 2023-02-01 19:00:38 12.89 L/wk F NPCR PD MALE 2023-02-01 19:00:38 0.82 G/KG/D F nPNA (PD MALE) 2023-02-01 19:00:38 0.92 G/KG/D F PNA (PD) 2023-02-01 19:00:38 80.1 g/day F PCR PD MALE 2023-02-01 19:00:38 71 g/day F Urea Gen Rate 2023-02-01 19:00:38 12.9 GM/D F Urea nitrogen [Mass/volume] in Urine 2023-02-01 19:00:30 180 mg/dL F Creatinine [Mass/volume] in Urine 2023-02-01 19:00:30 37.92 mg/dL F BUN/CREAT 2023-02-01 18:04:01 6.9 Calc F 6.9-32.9 L/WK PDF CC 2023-02-01 18:04:01 52.54 L/wk F KT/V PDF (M) 2023-02-01 18:04:01 1.46 Kt/V F L/WK/1.73 PDF 2023-02-01 18:04:01 41.54 L/WK/B F Urea nitrogen [Mass/volume] in Serum or Plasma 2023-02-01 18:03:26 72 mg/dL F 9.0-23.0 Creatinine [Mass/volume] in Serum or Plasma 2023-02-01 18:03:26 10.42 mg/dL F 0.7-1.3 BSA NOHELIA 2023-01-30 19:53:54 2.19 sq m F TBW DAVIS MALE 2023-01-30 19:53:54 50.58 Liters F Creatinine [Mass/volume] in Peritoneal dialysis fluid 2023-01-30 19:53:29 5.15 mg/dL F Urea nitrogen [Mass/volume] in Peritoneal fluid --24 hours post peritoneal dialysis 2023-01-30 19:53:29 50 mg/dL F PATIENT AGE 2023-01-29 21:37:41 52 Years F BODY WEIGHT (LBS) 2023-01-29 21:37:41 223 lbs F HEIGHT IN INCHES 2023-01-29 21:37:41 70 Inches F AMPUTATE FACTOR 2023-01-29 21:37:41 0 F Total Volume of EFFL/DIAL 2023-01-29 21:37:41 92654 mLs F MINIMUM GOAL: KT/V PD 2023-01-29 21:37:41 1.7 F COLLECTION TIME FOR URINE 2023-01-29 21:37:41 1440 min F TOTAL VOLUME-24 HR URINE 2023-01-29 21:37:41 600 mL F BUN/CREAT 2022-12-26 22:23:13 5.8 Calc F 6.9-32.9 Urea nitrogen [Mass/volume] in Serum or Plasma 2022-12-26 22:22:31 61 mg/dL F 9.0-23.0 Creatinine [Mass/volume] in Serum or Plasma 2022-12-26 22:22:31 10.57 mg/dL F 0.7-1.3 BUN/CREAT 2022-11-06 04:07:03 5.9 Calc F 6.9-32.9 UREA CLR UR/BSA 2022-11-06 04:07:03 1.1 mL/min F 64.0-99.0 CRE CLR UR/BSA 2022-11-06 04:07:03 1 mL/min F 85.0-125.0 UREA CLR UR 2022-11-06 04:07:03 1.4 mL/min F CRE CLR UR 2022-11-06 04:07:03 2 mL/min F 97.0-137.0 L/WK/1.73 RESID 2022-11-06 04:07:03 13.28 L/WK/B F L/WK PDF CC 2022-11-06 04:07:03 84.15 L/wk F KT/V PDF (M) 2022-11-06 04:07:03 2.26 Kt/V F KT/V RESID (M) 2022-11-06 04:07:03 0.29 Kt/V F L/WK/1.73 TOTAL 2022-11-06 04:07:03 81.53 L/WK/B F L/WK/1.73 PDF 2022-11-06 04:07:03 68.25 L/WK/B F L/WK RESID CC 2022-11-06 04:07:03 16.38 L/wk F KT/V TOTAL (M) 2022-11-06 04:07:03 2.55 Kt/V F Urea nitrogen [Mass/volume] in Serum or Plasma 2022-11-06 04:06:32 59 mg/dL F 9.0-23.0 Creatinine [Mass/volume] in Serum or Plasma 2022-11-06 04:06:32 9.94 mg/dL F 0.7-1.3 NPCR PD MALE 2022-11-05 19:36:45 0.98 G/KG/D F PNA (PD) 2022-11-05 19:36:45 93.3 g/day F nPNA (PD MALE) 2022-11-05 19:36:45 1.11 G/KG/D F PCR PD MALE 2022-11-05 19:36:45 82 g/day F Urea Gen Rate 2022-11-05 19:36:45 15.5 GM/D F BSA NOHELIA 2022-11-05 19:36:45 2.13 sq m F TBW DAVIS MALE 2022-11-05 19:36:45 48.59 Liters F Urea nitrogen [Mass/volume] in Urine 2022-11-05 19:36:38 217 mg/dL F Creatinine [Mass/volume] in Urine 2022-11-05 19:36:38 48 mg/dL F Creatinine [Mass/volume] in Peritoneal dialysis fluid 2022-11-05 19:35:44 6.2 mg/dL F Urea nitrogen [Mass/volume] in Peritoneal fluid --24 hours post peritoneal dialysis 2022-11-05 19:35:44 48 mg/dL F Total Volume of EFFL/DIAL 2022-11-04 21:03:01 60724 mLs F MINIMUM GOAL: KT/V PD 2022-11-04 21:03:01 1.7 F COLLECTION TIME FOR URINE 2022-11-04 21:03:01 1440 min F TOTAL VOLUME-24 HR URINE 2022-11-04 21:03:01 550 mL F PATIENT AGE 2022-11-04 21:03:01 52 Years F BODY WEIGHT (LBS) 2022-11-04 21:03:01 210 lbs F HEIGHT IN INCHES 2022-11-04 21:03:01 70 Inches F AMPUTATE FACTOR 2022-11-04 21:03:01 0 F BUN/CREAT 2022-09-30 21:12:51 3.8 Calc F 6.9-32.9 Urea nitrogen [Mass/volume] in Serum or Plasma 2022-09-30 21:12:35 33 mg/dL F 9.0-23.0 Creatinine [Mass/volume] in Serum or Plasma 2022-09-30 21:12:35 8.78 mg/dL F 0.7-1.3 CRE CLR UR/BSA 2022-09-05 19:06:49 1 mL/min F 85.0-125.0 UREA CLR UR/BSA 2022-09-05 19:06:49 1.1 mL/min F 64.0-99.0 UREA CLR UR 2022-09-05 19:06:49 1.3 mL/min F CRE CLR UR 2022-09-05 19:06:49 2 mL/min F 97.0-137.0 L/WK/1.73 RESID 2022-09-05 19:06:49 12.82 L/WK/B F L/WK PDF CC 2022-09-05 19:06:49 66.92 L/wk F L/WK/1.73 TOTAL 2022-09-05 19:06:49 67.34 L/WK/B F KT/V RESID (M) 2022-09-05 19:06:49 0.27 Kt/V F KT/V PDF (M) 2022-09-05 19:06:49 1.94 Kt/V F KT/V TOTAL (M) 2022-09-05 19:06:49 2.21 Kt/V F L/WK RESID CC 2022-09-05 19:06:49 15.73 L/wk F L/WK/1.73 PDF 2022-09-05 19:06:49 54.52 L/WK/B F Urea nitrogen [Mass/volume] in Serum or Plasma 2022-09-05 19:06:17 38 mg/dL F 9.0-23.0 Creatinine [Mass/volume] in Serum or Plasma 2022-09-05 19:06:17 9.27 mg/dL F 0.7-1.3 NPCR PD MALE 2022-09-05 16:04:27 0.62 G/KG/D F PNA (PD) 2022-09-05 16:04:27 58.7 g/day F nPNA (PD MALE) 2022-09-05 16:04:27 0.71 G/KG/D F PCR PD MALE 2022-09-05 16:04:27 52 g/day F Urea Gen Rate 2022-09-05 16:04:27 8.6 GM/D F Urea nitrogen [Mass/volume] in Peritoneal fluid --24 hours post peritoneal dialysis 2022-09-05 16:04:17 28 mg/dL F Creatinine [Mass/volume] in Peritoneal dialysis fluid 2022-09-05 16:04:17 4.89 mg/dL F BSA NOHELIA 2022-09-05 15:45:22 2.12 sq m F TBW DAVIS MALE 2022-09-05 15:45:22 48.25 Liters F Urea nitrogen [Mass/volume] in Urine 2022-09-05 15:44:16 89 mg/dL F Creatinine [Mass/volume] in Urine 2022-09-05 15:44:16 30.37 mg/dL F COLLECTION TIME FOR URINE 2022-09-04 21:05:09 1440 min F TOTAL VOLUME-24 HR URINE 2022-09-04 21:05:09 800 mL F Total Volume of EFFL/DIAL 2022-09-04 21:05:09 06725 mLs F PATIENT AGE 2022-09-04 21:05:09 52 Years F BODY WEIGHT (LBS) 2022-09-04 21:05:09 207.8 lbs F HEIGHT IN INCHES 2022-09-04 21:05:09 70 Inches F MINIMUM GOAL: KT/V PD 2022-09-04 21:05:09 1.7 F AMPUTATE FACTOR 2022-09-04 21:05:09 0 F BUN/CREAT 2022-07-09 18:46:40 4.2 Calc F 6.9-32.9 Urea nitrogen [Mass/volume] in Serum or Plasma 2022-07-09 18:46:18 68 mg/dL F 9.0-23.0 Creatinine [Mass/volume] in Serum or Plasma 2022-07-09 18:46:18 16.15 mg/dL F 0.7-1.3 L/WK PDF CC 2022-05-29 23:12:41 41.67 L/wk F L/WK/1.73 TOTAL 2022-05-29 23:12:41 47.81 L/WK/B F KT/V PDF (M) 2022-05-29 23:12:41 1.45 Kt/V F KT/V TOTAL (M) 2022-05-29 23:12:41 1.72 Kt/V F L/WK/1.73 PDF 2022-05-29 23:12:41 34.04 L/WK/B F NPCR PD MALE 2022-05-29 23:12:41 0.52 G/KG/D F PNA (PD) 2022-05-29 23:12:41 48.9 g/day F nPNA (PD MALE) 2022-05-29 23:12:41 0.59 G/KG/D F PCR PD MALE 2022-05-29 23:12:41 43 g/day F Urea Gen Rate 2022-05-29 23:12:41 6.7 GM/D F Urea nitrogen [Mass/volume] in Peritoneal fluid --24 hours post peritoneal dialysis 2022-05-29 23:12:16 25 mg/dL F Creatinine [Mass/volume] in Peritoneal dialysis fluid 2022-05-29 23:12:16 4.83 mg/dL F CRE CLR UR/BSA 2022-05-29 22:55:52 2 mL/min F 85.0-125.0 UREA CLR UR/BSA 2022-05-29 22:55:52 1 mL/min F 64.0-99.0 UREA CLR UR 2022-05-29 22:55:52 1.3 mL/min F CRE CLR UR 2022-05-29 22:55:52 2 mL/min F 97.0-137.0 L/WK/1.73 RESID 2022-05-29 22:55:52 13.77 L/WK/B F KT/V RESID (M) 2022-05-29 22:55:52 0.26 Kt/V F L/WK RESID CC 2022-05-29 22:55:52 16.85 L/wk F Urea nitrogen [Mass/volume] in Urine 2022-05-29 22:55:15 137 mg/dL F Creatinine [Mass/volume] in Urine 2022-05-29 22:55:15 74.11 mg/dL F BUN/CREAT 2022-05-29 20:30:15 3.1 Calc F 6.9-32.9 BSA NOHELIA 2022-05-29 20:30:15 2.12 sq m F TBW DAVIS MALE 2022-05-29 20:30:15 48.06 Liters F Urea nitrogen [Mass/volume] in Serum or Plasma 2022-05-29 20:29:28 38 mg/dL F 9.0-23.0 Creatinine [Mass/volume] in Serum or Plasma 2022-05-29 20:29:28 12.3 mg/dL F 0.7-1.3 PATIENT AGE 2022-05-28 20:35:17 52 Years F BODY WEIGHT (LBS) 2022-05-28 20:35:17 206.5 lbs F HEIGHT IN INCHES 2022-05-28 20:35:17 70 Inches F AMPUTATE FACTOR 2022-05-28 20:35:17 0 F Total Volume of EFFL/DIAL 2022-05-28 20:35:17 38956 mLs F MINIMUM GOAL: KT/V PD 2022-05-28 20:35:17 1.7 F COLLECTION TIME FOR URINE 2022-05-28 20:35:17 1440 min F TOTAL VOLUME-24 HR URINE 2022-05-28 20:35:17 500 mL F BUN/CREAT 2022-05-12 23:57:11 4.5 Calc F 6.9-32.9 UREA CLR UR 2022-05-12 23:57:11 0 mL/min F CRE CLR UR/BSA 2022-05-12 23:57:11 0 mL/min F 85.0-125.0 UREA CLR UR/BSA 2022-05-12 23:57:11 0 mL/min F 64.0-99.0 BSA NOHELIA 2022-05-12 23:57:11 2.12 sq m F TBW DAVIS MALE 2022-05-12 23:57:11 47.98 Liters F CRE CLR UR 2022-05-12 23:57:11 0 mL/min F 97.0-137.0 L/WK/1.73 RESID 2022-05-12 23:57:11 0 L/WK/B F KT/V RESID (M) 2022-05-12 23:57:11 0 Kt/V F L/WK RESID CC 2022-05-12 23:57:11 0 L/wk F Urea nitrogen [Mass/volume] in Serum or Plasma 2022-05-12 23:56:17 54 mg/dL F 9.0-23.0 Creatinine [Mass/volume] in Serum or Plasma 2022-05-12 23:56:17 11.98 mg/dL F 0.7-1.3 COLLECTION TIME FOR URINE 2022-05-11 21:08:11 1440 min F Total Volume of EFFL/DIAL 2022-05-11 21:08:11 0 mLs F TOTAL VOLUME-24 HR URINE 2022-05-11 21:08:11 0 mL F PATIENT AGE 2022-05-11 21:08:11 52 Years F BODY WEIGHT (LBS) 2022-05-11 21:08:11 206 lbs F MINIMUM GOAL: KT/V PD 2022-05-11 21:08:11 0 F HEIGHT IN INCHES 2022-05-11 21:08:11 70 Inches F AMPUTATE FACTOR 2022-05-11 21:08:11 0 F L/WK PDF CC 2022-04-01 22:57:54 36.89 L/wk F KT/V PDF (M) 2022-04-01 22:57:54 1.31 Kt/V F L/WK/1.73 TOTAL 2022-04-01 22:57:54 41.12 L/WK/B F KT/V TOTAL (M) 2022-04-01 22:57:54 1.51 Kt/V F L/WK/1.73 PDF 2022-04-01 22:57:54 29.91 L/WK/B F NPCR PD MALE 2022-04-01 22:57:54 0.57 G/KG/D F PNA (PD) 2022-04-01 22:57:54 53.9 g/day F nPNA (PD MALE) 2022-04-01 22:57:54 0.64 G/KG/D F PCR PD MALE 2022-04-01 22:57:54 48 g/day F Urea Gen Rate 2022-04-01 22:57:54 7.6 GM/D F Creatinine [Mass/volume] in Peritoneal dialysis fluid 2022-04-01 22:56:58 4.92 mg/dL F Urea nitrogen [Mass/volume] in Peritoneal fluid --24 hours post peritoneal dialysis 2022-04-01 22:56:58 36 mg/dL F UREA CLR UR/BSA 2022-04-01 22:10:46 0.8 mL/min F 64.0-99.0 UREA CLR UR 2022-04-01 22:10:46 1 mL/min F CRE CLR UR/BSA 2022-04-01 22:10:46 1 mL/min F 85.0-125.0 CRE CLR UR 2022-04-01 22:10:46 2 mL/min F 97.0-137.0 L/WK/1.73 RESID 2022-04-01 22:10:46 11.21 L/WK/B F KT/V RESID (M) 2022-04-01 22:10:46 0.2 Kt/V F L/WK RESID CC 2022-04-01 22:10:46 13.82 L/wk F Urea nitrogen [Mass/volume] in Urine 2022-04-01 22:09:53 137 mg/dL F Creatinine [Mass/volume] in Urine 2022-04-01 22:09:53 58.99 mg/dL F BUN/CREAT 2022-04-01 20:20:12 4.2 Calc F 6.9-32.9 BSA NOHELIA 2022-04-01 20:20:12 2.13 sq m F TBW DAVIS MALE 2022-04-01 20:20:12 48.62 Liters F Urea nitrogen [Mass/volume] in Serum or Plasma 2022-04-01 20:19:58 49 mg/dL F 9.0-23.0 Creatinine [Mass/volume] in Serum or Plasma 2022-04-01 20:19:58 11.56 mg/dL F 0.7-1.3 COLLECTION TIME FOR URINE 2022-03-31 21:42:00 1440 min F TOTAL VOLUME-24 HR URINE 2022-03-31 21:42:00 500 mL F PATIENT AGE 2022-03-31 21:42:00 52 Years F BODY WEIGHT (LBS) 2022-03-31 21:42:00 210.2 lbs F HEIGHT IN INCHES 2022-03-31 21:42:00 70 Inches F AMPUTATE FACTOR 2022-03-31 21:42:00 0 F Total Volume of EFFL/DIAL 2022-03-31 21:42:00 73905 mLs F MINIMUM GOAL: KT/V PD 2022-03-31 21:42:00 1.7 F BUN/CREAT 2022-03-06 00:58:45 5.2 Calc F 6.9-32.9 UREA CLR UR/BSA 2022-03-06 00:58:45 0.9 mL/min F 64.0-99.0 CRE CLR UR/BSA 2022-03-06 00:58:45 2 mL/min F 85.0-125.0 UREA CLR UR 2022-03-06 00:58:45 1.1 mL/min F CRE CLR UR 2022-03-06 00:58:45 2 mL/min F 97.0-137.0 L/WK PDF CC 2022-03-06 00:58:45 36.03 L/wk F L/WK/1.73 RESID 2022-03-06 00:58:45 13.11 L/WK/B F KT/V PDF (M) 2022-03-06 00:58:45 1.33 Kt/V F L/WK/1.73 TOTAL 2022-03-06 00:58:45 42.31 L/WK/B F KT/V RESID (M) 2022-03-06 00:58:45 0.23 Kt/V F KT/V TOTAL (M) 2022-03-06 00:58:45 1.56 Kt/V F L/WK RESID CC 2022-03-06 00:58:45 16.17 L/wk F L/WK/1.73 PDF 2022-03-06 00:58:45 29.21 L/WK/B F Urea nitrogen [Mass/volume] in Serum or Plasma 2022-03-06 00:57:46 53 mg/dL F 9.0-23.0 Creatinine [Mass/volume] in Serum or Plasma 2022-03-06 00:57:46 10.2 mg/dL F 0.7-1.3 NPCR PD MALE 2022-03-05 21:06:16 0.61 G/KG/D F PNA (PD) 2022-03-05 21:06:16 58.3 g/day F nPNA (PD MALE) 2022-03-05 21:06:16 0.7 G/KG/D F PCR PD MALE 2022-03-05 21:06:16 52 g/day F Urea Gen Rate 2022-03-05 21:06:16 8.5 GM/D F Urea nitrogen [Mass/volume] in Urine 2022-03-05 21:05:52 139 mg/dL F Creatinine [Mass/volume] in Urine 2022-03-05 21:05:52 51.79 mg/dL F BSA NOHELIA 2022-03-05 20:07:21 2.13 sq m F TBW DAVIS MALE 2022-03-05 20:07:21 48.64 Liters F Urea nitrogen [Mass/volume] in Peritoneal fluid --24 hours post peritoneal dialysis 2022-03-05 20:06:53 41 mg/dL F Creatinine [Mass/volume] in Peritoneal dialysis fluid 2022-03-05 20:06:53 4.39 mg/dL F COLLECTION TIME FOR URINE 2022-03-04 22:09:43 1440 min F Total Volume of EFFL/DIAL 2022-03-04 22:09:43 75102 mLs F TOTAL VOLUME-24 HR URINE 2022-03-04 22:09:43 600 mL F PATIENT AGE 2022-03-04 22:09:43 52 Years F BODY WEIGHT (LBS) 2022-03-04 22:09:43 210.3 lbs F HEIGHT IN INCHES 2022-03-04 22:09:43 70 Inches F MINIMUM GOAL: KT/V PD 2022-03-04 22:09:43 1.7 F AMPUTATE FACTOR 2022-03-04 22:09:43 0 F NPCR PD MALE 2022-01-29 00:06:34 0.55 G/KG/D F nPNA (PD MALE) 2022-01-29 00:06:34 0.62 G/KG/D F PNA (PD) 2022-01-29 00:06:34 51 g/day F PCR PD MALE 2022-01-29 00:06:34 45 g/day F Urea Gen Rate 2022-01-29 00:06:34 7.1 GM/D F L/WK PDF CC 2022-01-29 00:06:34 36.17 L/wk F L/WK/1.73 TOTAL 2022-01-29 00:06:34 44.18 L/WK/B F KT/V PDF (M) 2022-01-29 00:06:34 1.29 Kt/V F KT/V TOTAL (M) 2022-01-29 00:06:34 1.55 Kt/V F L/WK/1.73 PDF 2022-01-29 00:06:34 29.8 L/WK/B F Creatinine [Mass/volume] in Peritoneal dialysis fluid 2022-01-29 00:05:37 4.03 mg/dL F Urea nitrogen [Mass/volume] in Peritoneal fluid --24 hours post peritoneal dialysis 2022-01-29 00:05:37 32 mg/dL F BUN/CREAT 2022-01-28 23:46:55 4.7 Calc F 6.9-32.9 UREA CLR UR/BSA 2022-01-28 23:46:55 1 mL/min F 64.0-99.0 UREA CLR UR 2022-01-28 23:46:55 1.2 mL/min F CRE CLR UR/BSA 2022-01-28 23:46:55 2 mL/min F 85.0-125.0 CRE CLR UR 2022-01-28 23:46:55 2 mL/min F 97.0-137.0 L/WK/1.73 RESID 2022-01-28 23:46:55 14.39 L/WK/B F KT/V RESID (M) 2022-01-28 23:46:55 0.26 Kt/V F L/WK RESID CC 2022-01-28 23:46:55 17.46 L/wk F Urea nitrogen [Mass/volume] in Serum or Plasma 2022-01-28 23:46:37 45 mg/dL F 9.0-23.0 Creatinine [Mass/volume] in Serum or Plasma 2022-01-28 23:46:37 9.64 mg/dL F 0.7-1.3 BSA NOHELIA 2022-01-28 22:51:52 2.1 sq m F TBW DAVIS MALE 2022-01-28 22:51:52 47.52 Liters F Urea nitrogen [Mass/volume] in Urine 2022-01-28 22:50:47 132 mg/dL F Creatinine [Mass/volume] in Urine 2022-01-28 22:50:47 51.88 mg/dL F COLLECTION TIME FOR URINE 2022-01-27 22:56:45 1440 min F TOTAL VOLUME-24 HR URINE 2022-01-27 22:56:45 600 mL F Total Volume of EFFL/DIAL 2022-01-27 22:56:45 85785 mLs F PATIENT AGE 2022-01-27 22:56:45 51 Years F BODY WEIGHT (LBS) 2022-01-27 22:56:45 202.4 lbs F HEIGHT IN INCHES 2022-01-27 22:56:45 70 Inches F MINIMUM GOAL: KT/V PD 2022-01-27 22:56:45 1.7 F AMPUTATE FACTOR 2022-01-27 22:56:45 0 F L/WK PDF CC L/WK/1.73 TOTAL KT/V PDF (M) KT/V TOTAL (M) L/WK/1.73 PDF Anemia Description Draw Date Result/Unit Status Ref Range Result Comments Ferritin [Mass/volume] in Serum or Plasma 2024-01-28 08:22:22 920 ng/mL F 22.0-322.0 IRON SATURATION 2024-01-28 07:43:53 21 % F 21.0-49.0 TIBC 2024-01-28 07:43:53 251 ug/dL F 250.0-425.0 Iron [Mass/volume] in Serum or Plasma 2024-01-28 07:21:27 52 ug/dL F 65.0-175.0 Iron binding capacity.unsaturated [Mass/volume] in Serum or Plasma 2024-01-28 07:21:27 199 ug/dL F 75.0-360.0 HCT CALC HGBX3 2024-01-27 18:19:26 33.3 % F 42.0-52.0 Erythrocytes [#/volume] in Blood by Automated count 2024-01-27 18:18:14 3.58 x 10'6 cells/uL F 4.6-6.2 Hemoglobin [Mass/volume] in Blood 2024-01-27 18:18:14 11.1 g/dL F 14.0-18.0 Platelets [#/volume] in Blood by Automated count 2024-01-27 18:18:14 358 x 10^3 cells/uL F 140.0-450.0 Reticulocytes/100 erythrocytes in Blood by Automated count 2024-01-27 18:18:14 2.61 % F 0.7-2.5 Erythrocyte distribution width [Ratio] by Automated count 2024-01-27 18:18:13 14.2 % F 11.0-15.0 Hematocrit [Volume Fraction] of Blood by Automated count 2024-01-27 18:18:13 35.3 % F 41.0-53.0 MCV [Entitic volume] by Automated count 2024-01-27 18:18:13 98.8 fL F 80.0-100.0 MCH [Entitic mass] by Automated count 2024-01-27 18:18:13 31 pg F 25.9-34.2 MCHC [Mass/volume] by Automated count 2024-01-27 18:18:13 31.4 g/dL F 29.6-35.3 IRON SATURATION 2024-01-01 21:59:48 21 % F 21.0-49.0 TIBC 2024-01-01 21:59:48 222 ug/dL F 250.0-425.0 Ferritin [Mass/volume] in Serum or Plasma 2024-01-01 21:33:10 875 ng/mL F 22.0-322.0 Iron [Mass/volume] in Serum or Plasma 2024-01-01 18:46:29 47 ug/dL F 65.0-175.0 Iron binding capacity.unsaturated [Mass/volume] in Serum or Plasma 2024-01-01 18:46:29 175 ug/dL F 75.0-360.0 HCT CALC HGBX3 2024-01-01 14:58:02 30 % F 42.0-52.0 Erythrocyte distribution width [Ratio] by Automated count 2024-01-01 14:57:08 12.9 % F 11.0-15.0 Erythrocytes [#/volume] in Blood by Automated count 2024-01-01 14:57:08 3.01 x 10'6 cells/uL F 4.6-6.2 Hematocrit [Volume Fraction] of Blood by Automated count 2024-01-01 14:57:08 30.3 % F 41.0-53.0 Hemoglobin [Mass/volume] in Blood 2024-01-01 14:57:08 10 g/dL F 14.0-18.0 MCH [Entitic mass] by Automated count 2024-01-01 14:57:08 33.1 pg F 25.9-34.2 MCHC [Mass/volume] by Automated count 2024-01-01 14:57:08 32.8 g/dL F 29.6-35.3 MCV [Entitic volume] by Automated count 2024-01-01 14:57:08 100.7 fL F 80.0-100.0 Platelets [#/volume] in Blood by Automated count 2024-01-01 14:57:08 432 x 10^3 cells/uL F 140.0-450.0 Reticulocytes/100 erythrocytes in Blood by Automated count 2024-01-01 14:57:08 2.06 % F 0.7-2.5 Ferritin [Mass/volume] in Serum or Plasma 2023-12-09 07:31:53 993 ng/mL F 22.0-322.0 IRON SATURATION 2023-12-08 06:31:30 37 % F 21.0-49.0 TIBC 2023-12-08 06:31:30 244 ug/dL F 250.0-425.0 Iron [Mass/volume] in Serum or Plasma 2023-12-08 06:29:47 91 ug/dL F 65.0-175.0 Iron binding capacity.unsaturated [Mass/volume] in Serum or Plasma 2023-12-08 06:29:47 153 ug/dL F 75.0-360.0 HCT CALC HGBX3 2023-12-07 14:49:55 34.5 % F 42.0-52.0 Erythrocytes [#/volume] in Blood by Automated count 2023-12-07 14:49:21 3.54 x 10'6 cells/uL F 4.6-6.2 Hematocrit [Volume Fraction] of Blood by Automated count 2023-12-07 14:49:21 35.1 % F 41.0-53.0 Hemoglobin [Mass/volume] in Blood 2023-12-07 14:49:21 11.5 g/dL F 14.0-18.0 MCV [Entitic volume] by Automated count 2023-12-07 14:49:21 99.2 fL F 80.0-100.0 Platelets [#/volume] in Blood by Automated count 2023-12-07 14:49:21 429 x 10^3 cells/uL F 140.0-450.0 Reticulocytes/100 erythrocytes in Blood by Automated count 2023-12-07 14:49:21 1.78 % F 0.7-2.5 Erythrocyte distribution width [Ratio] by Automated count 2023-12-07 14:49:19 12.9 % F 11.0-15.0 MCHC [Mass/volume] by Automated count 2023-12-07 14:49:19 32.9 g/dL F 29.6-35.3 MCH [Entitic mass] by Automated count 2023-12-07 14:49:19 32.6 pg F 25.9-34.2 IRON SATURATION 2023-11-03 06:10:34 28 % F 21.0-49.0 TIBC 2023-11-03 06:10:34 231 ug/dL F 250.0-425.0 Iron [Mass/volume] in Serum or Plasma 2023-11-03 06:02:33 65 ug/dL F 65.0-175.0 Iron binding capacity.unsaturated [Mass/volume] in Serum or Plasma 2023-11-03 06:02:33 166 ug/dL F 75.0-360.0 Ferritin [Mass/volume] in Serum or Plasma 2023-11-03 04:04:42 1099 ng/mL F 22.0-322.0 HCT CALC HGBX3 2023-11-02 19:37:07 35.4 % F 42.0-52.0 Erythrocyte distribution width [Ratio] by Automated count 2023-11-02 19:36:13 13.3 % F 11.0-15.0 Erythrocytes [#/volume] in Blood by Automated count 2023-11-02 19:36:13 3.69 x 10'6 cells/uL F 4.6-6.2 Hematocrit [Volume Fraction] of Blood by Automated count 2023-11-02 19:36:13 38.2 % F 41.0-53.0 MCV [Entitic volume] by Automated count 2023-11-02 19:36:13 103.5 fL F 80.0-100.0 Hemoglobin [Mass/volume] in Blood 2023-11-02 19:36:13 11.8 g/dL F 14.0-18.0 MCH [Entitic mass] by Automated count 2023-11-02 19:36:13 31.9 pg F 25.9-34.2 Platelets [#/volume] in Blood by Automated count 2023-11-02 19:36:13 401 x 10^3 cells/uL F 140.0-450.0 MCHC [Mass/volume] by Automated count 2023-11-02 19:36:13 30.8 g/dL F 29.6-35.3 Reticulocytes/100 erythrocytes in Blood by Automated count 2023-11-02 19:36:13 2.86 % F 0.7-2.5 Ferritin [Mass/volume] in Serum or Plasma 2023-10-16 02:17:40 929 ng/mL F 22.0-322.0 IRON SATURATION 2023-10-15 18:25:24 22 % F 21.0-49.0 TIBC 2023-10-15 18:25:24 284 ug/dL F 250.0-425.0 Iron [Mass/volume] in Serum or Plasma 2023-10-15 18:25:04 63 ug/dL F 65.0-175.0 Iron binding capacity.unsaturated [Mass/volume] in Serum or Plasma 2023-10-15 18:25:04 221 ug/dL F 75.0-360.0 HCT CALC HGBX3 2023-10-15 14:35:22 33.9 % F 42.0-52.0 Erythrocyte distribution width [Ratio] by Automated count 2023-10-15 14:34:28 15 % F 11.0-15.0 Hematocrit [Volume Fraction] of Blood by Automated count 2023-10-15 14:34:28 35.6 % F 41.0-53.0 MCV [Entitic volume] by Automated count 2023-10-15 14:34:28 102.7 fL F 80.0-100.0 MCH [Entitic mass] by Automated count 2023-10-15 14:34:28 32.5 pg F 25.9-34.2 MCHC [Mass/volume] by Automated count 2023-10-15 14:34:28 31.6 g/dL F 29.6-35.3 Platelets [#/volume] in Blood by Automated count 2023-10-15 14:34:28 499 x 10^3 cells/uL F 140.0-450.0 Reticulocytes/100 erythrocytes in Blood by Automated count 2023-10-15 14:34:28 5.22 % F 0.7-2.5 Erythrocytes [#/volume] in Blood by Automated count 2023-10-15 14:34:28 3.47 x 10'6 cells/uL F 4.6-6.2 Hemoglobin [Mass/volume] in Blood 2023-10-15 14:34:28 11.3 g/dL F 14.0-18.0 IRON SATURATION 2023-09-01 07:14:35 36 % F 21.0-49.0 TIBC 2023-09-01 07:14:35 295 ug/dL F 250.0-425.0 Iron [Mass/volume] in Serum or Plasma 2023-09-01 07:10:20 105 ug/dL F 65.0-175.0 Iron binding capacity.unsaturated [Mass/volume] in Serum or Plasma 2023-09-01 07:10:20 190 ug/dL F 75.0-360.0 Ferritin [Mass/volume] in Serum or Plasma 2023-08-31 20:27:27 1030 ng/mL F 22.0-322.0 HCT CALC HGBX3 2023-08-31 18:09:53 35.7 % F 42.0-52.0 Erythrocyte distribution width [Ratio] by Automated count 2023-08-31 18:09:32 14.2 % F 11.0-15.0 Hematocrit [Volume Fraction] of Blood by Automated count 2023-08-31 18:09:32 35.9 % F 41.0-53.0 Erythrocytes [#/volume] in Blood by Automated count 2023-08-31 18:09:32 3.68 x 10'6 cells/uL F 4.6-6.2 Hemoglobin [Mass/volume] in Blood 2023-08-31 18:09:32 11.9 g/dL F 14.0-18.0 MCH [Entitic mass] by Automated count 2023-08-31 18:09:32 32.4 pg F 25.9-34.2 MCV [Entitic volume] by Automated count 2023-08-31 18:09:32 97.7 fL F 80.0-100.0 Platelets [#/volume] in Blood by Automated count 2023-08-31 18:09:32 407 x 10^3 cells/uL F 140.0-450.0 MCHC [Mass/volume] by Automated count 2023-08-31 18:09:32 33.2 g/dL F 29.6-35.3 Reticulocytes/100 erythrocytes in Blood by Automated count 2023-08-31 18:09:32 1.05 % F 0.7-2.5 IRON SATURATION 2023-07-31 07:30:10 20 % F 21.0-49.0 TIBC 2023-07-31 07:30:10 282 ug/dL F 250.0-425.0 Iron [Mass/volume] in Serum or Plasma 2023-07-31 07:05:52 56 ug/dL F 65.0-175.0 Iron binding capacity.unsaturated [Mass/volume] in Serum or Plasma 2023-07-31 07:05:52 226 ug/dL F 75.0-360.0 HCT CALC HGBX3 2023-07-31 06:05:09 40.2 % F 42.0-52.0 Erythrocyte distribution width [Ratio] by Automated count 2023-07-31 06:04:29 13.9 % F 11.0-15.0 Hematocrit [Volume Fraction] of Blood by Automated count 2023-07-31 06:04:29 41.6 % F 41.0-53.0 Erythrocytes [#/volume] in Blood by Automated count 2023-07-31 06:04:29 4.07 x 10'6 cells/uL F 4.6-6.2 MCV [Entitic volume] by Automated count 2023-07-31 06:04:29 102.4 fL F 80.0-100.0 Hemoglobin [Mass/volume] in Blood 2023-07-31 06:04:29 13.4 g/dL F 14.0-18.0 MCHC [Mass/volume] by Automated count 2023-07-31 06:04:29 32.3 g/dL F 29.6-35.3 MCH [Entitic mass] by Automated count 2023-07-31 06:04:29 33.1 pg F 25.9-34.2 Platelets [#/volume] in Blood by Automated count 2023-07-31 06:04:29 501 x 10^3 cells/uL F 140.0-450.0 Reticulocytes/100 erythrocytes in Blood by Automated count 2023-07-31 06:04:29 2.6 % F 0.7-2.5 Ferritin [Mass/volume] in Serum or Plasma 2023-07-31 03:39:25 745 ng/mL F 22.0-322.0 Ferritin [Mass/volume] in Serum or Plasma 2023-06-30 06:55:26 485 ng/mL F 22.0-322.0 IRON SATURATION 2023-06-30 06:49:18 20 % F 21.0-49.0 TIBC 2023-06-30 06:49:18 287 ug/dL F 250.0-425.0 Iron [Mass/volume] in Serum or Plasma 2023-06-30 06:43:22 58 ug/dL F 65.0-175.0 Iron binding capacity.unsaturated [Mass/volume] in Serum or Plasma 2023-06-30 06:43:22 229 ug/dL F 75.0-360.0 HCT CALC HGBX3 2023-06-30 04:48:43 33.3 % F 42.0-52.0 Erythrocyte distribution width [Ratio] by Automated count 2023-06-30 04:47:44 14.2 % F 11.0-15.0 Erythrocytes [#/volume] in Blood by Automated count 2023-06-30 04:47:44 3.44 x 10'6 cells/uL F 4.6-6.2 Hematocrit [Volume Fraction] of Blood by Automated count 2023-06-30 04:47:44 34.6 % F 41.0-53.0 Hemoglobin [Mass/volume] in Blood 2023-06-30 04:47:44 11.1 g/dL F 14.0-18.0 MCH [Entitic mass] by Automated count 2023-06-30 04:47:44 32.3 pg F 25.9-34.2 MCV [Entitic volume] by Automated count 2023-06-30 04:47:44 100.8 fL F 80.0-100.0 Platelets [#/volume] in Blood by Automated count 2023-06-30 04:47:44 390 x 10^3 cells/uL F 140.0-450.0 MCHC [Mass/volume] by Automated count 2023-06-30 04:47:44 32.1 g/dL F 29.6-35.3 Reticulocytes/100 erythrocytes in Blood by Automated count 2023-06-30 04:47:44 2.34 % F 0.7-2.5 HCT CALC HGBX3 2023-06-02 14:06:25 32.4 % F 42.0-52.0 Erythrocytes [#/volume] in Blood by Automated count 2023-06-02 14:05:45 3.36 x 10'6 cells/uL F 4.6-6.2 Erythrocyte distribution width [Ratio] by Automated count 2023-06-02 14:05:45 14.2 % F 11.0-15.0 Hemoglobin [Mass/volume] in Blood 2023-06-02 14:05:45 10.8 g/dL F 14.0-18.0 MCH [Entitic mass] by Automated count 2023-06-02 14:05:45 32.3 pg F 25.9-34.2 MCHC [Mass/volume] by Automated count 2023-06-02 14:05:45 31.2 g/dL F 29.6-35.3 Platelets [#/volume] in Blood by Automated count 2023-06-02 14:05:45 401 x 10^3 cells/uL F 140.0-450.0 Hematocrit [Volume Fraction] of Blood by Automated count 2023-06-02 14:05:43 34.8 % F 41.0-53.0 MCV [Entitic volume] by Automated count 2023-06-02 14:05:43 103.6 fL F 80.0-100.0 Reticulocytes/100 erythrocytes in Blood by Automated count 2023-06-02 14:05:43 0.96 % F 0.7-2.5 IRON SATURATION 2023-06-02 07:41:36 31 % F 21.0-49.0 TIBC 2023-06-02 07:41:36 295 ug/dL F 250.0-425.0 Iron [Mass/volume] in Serum or Plasma 2023-06-02 07:35:46 90 ug/dL F 65.0-175.0 Iron binding capacity.unsaturated [Mass/volume] in Serum or Plasma 2023-06-02 07:34:32 205 ug/dL F 75.0-360.0 Ferritin [Mass/volume] in Serum or Plasma 2023-06-02 07:08:05 655 ng/mL F 22.0-322.0 Ferritin [Mass/volume] in Serum or Plasma 2023-05-07 05:43:17 F RECOLLECT - OUTDATED SPECIMEN IRON SATURATION 2023-05-02 07:07:05 27 % F 21.0-49.0 TIBC 2023-05-02 07:07:05 259 ug/dL F 250.0-425.0 Iron [Mass/volume] in Serum or Plasma 2023-05-02 06:57:54 71 ug/dL F 65.0-175.0 Iron binding capacity.unsaturated [Mass/volume] in Serum or Plasma 2023-05-02 06:57:54 188 ug/dL F 75.0-360.0 HCT CALC HGBX3 2023-05-02 02:21:27 27.9 % F 42.0-52.0 Hematocrit [Volume Fraction] of Blood by Automated count 2023-05-02 02:20:21 28.6 % F 41.0-53.0 Erythrocytes [#/volume] in Blood by Automated count 2023-05-02 02:20:21 2.94 x 10'6 cells/uL F 4.6-6.2 Hemoglobin [Mass/volume] in Blood 2023-05-02 02:20:21 9.3 g/dL F 14.0-18.0 MCV [Entitic volume] by Automated count 2023-05-02 02:20:21 97.5 fL F 80.0-100.0 MCH [Entitic mass] by Automated count 2023-05-02 02:20:21 31.7 pg F 25.9-34.2 Reticulocytes/100 erythrocytes in Blood by Automated count 2023-05-02 02:20:21 1.45 % F 0.7-2.5 Erythrocyte distribution width [Ratio] by Automated count 2023-05-02 02:20:19 14.3 % F 11.0-15.0 MCHC [Mass/volume] by Automated count 2023-05-02 02:20:19 32.5 g/dL F 29.6-35.3 Platelets [#/volume] in Blood by Automated count 2023-05-02 02:20:19 466 x 10^3 cells/uL F 140.0-450.0 Ferritin [Mass/volume] in Serum or Plasma 2023-04-01 07:59:17 726 ng/mL F 22.0-322.0 IRON SATURATION 2023-04-01 05:00:03 26 % F 21.0-49.0 TIBC 2023-04-01 05:00:03 302 ug/dL F 250.0-425.0 Iron [Mass/volume] in Serum or Plasma 2023-04-01 04:55:55 78 ug/dL F 65.0-175.0 Iron binding capacity.unsaturated [Mass/volume] in Serum or Plasma 2023-04-01 04:55:55 224 ug/dL F 75.0-360.0 HCT CALC HGBX3 2023-03-31 18:28:05 36 % F 42.0-52.0 Reticulocytes/100 erythrocytes in Blood by Automated count 2023-03-31 18:25:39 1.4 % F 0.7-2.5 Erythrocytes [#/volume] in Blood by Automated count 2023-03-31 18:25:35 3.74 x 10'6 cells/uL F 4.6-6.2 Hematocrit [Volume Fraction] of Blood by Automated count 2023-03-31 18:25:35 36.3 % F 41.0-53.0 Hemoglobin [Mass/volume] in Blood 2023-03-31 18:25:35 12 g/dL F 14.0-18.0 MCH [Entitic mass] by Automated count 2023-03-31 18:25:35 32.1 pg F 25.9-34.2 MCHC [Mass/volume] by Automated count 2023-03-31 18:25:35 33 g/dL F 29.6-35.3 MCV [Entitic volume] by Automated count 2023-03-31 18:25:35 97.1 fL F 80.0-100.0 Erythrocyte distribution width [Ratio] by Automated count 2023-03-31 18:25:32 14.5 % F 11.0-15.0 Platelets [#/volume] in Blood by Automated count 2023-03-31 18:25:32 426 x 10^3 cells/uL F 140.0-450.0 Ferritin [Mass/volume] in Serum or Plasma 2023-03-07 07:25:22 509 ng/mL F 22.0-322.0 IRON SATURATION 2023-03-06 17:23:12 26 % F 21.0-49.0 TIBC 2023-03-06 17:23:12 277 ug/dL F 250.0-425.0 Iron [Mass/volume] in Serum or Plasma 2023-03-06 17:22:30 71 ug/dL F 65.0-175.0 Iron binding capacity.unsaturated [Mass/volume] in Serum or Plasma 2023-03-06 17:22:30 206 ug/dL F 75.0-360.0 HCT CALC HGBX3 2023-03-06 16:24:48 36.9 % F 42.0-52.0 Erythrocyte distribution width [Ratio] by Automated count 2023-03-06 16:24:36 15.7 % F 11.0-15.0 Erythrocytes [#/volume] in Blood by Automated count 2023-03-06 16:24:36 3.93 x 10'6 cells/uL F 4.6-6.2 Hematocrit [Volume Fraction] of Blood by Automated count 2023-03-06 16:24:36 37.8 % F 41.0-53.0 Hemoglobin [Mass/volume] in Blood 2023-03-06 16:24:36 12.3 g/dL F 14.0-18.0 MCV [Entitic volume] by Automated count 2023-03-06 16:24:36 96.3 fL F 80.0-100.0 MCH [Entitic mass] by Automated count 2023-03-06 16:24:36 31.2 pg F 25.9-34.2 MCHC [Mass/volume] by Automated count 2023-03-06 16:24:36 32.4 g/dL F 29.6-35.3 Platelets [#/volume] in Blood by Automated count 2023-03-06 16:24:36 387 x 10^3 cells/uL F 140.0-450.0 Reticulocytes/100 erythrocytes in Blood by Automated count 2023-03-06 16:24:36 1.15 % F 0.7-2.5 IRON SATURATION 2023-02-01 21:03:33 28 % F 21.0-49.0 TIBC 2023-02-01 21:03:33 326 ug/dL F 250.0-425.0 Iron [Mass/volume] in Serum or Plasma 2023-02-01 21:02:48 91 ug/dL F 65.0-175.0 Iron binding capacity.unsaturated [Mass/volume] in Serum or Plasma 2023-02-01 21:02:47 235 ug/dL F 75.0-360.0 Ferritin [Mass/volume] in Serum or Plasma 2023-01-31 01:50:38 455 ng/mL F 22.0-322.0 HCT CALC HGBX3 2023-01-30 23:42:37 34.5 % F 42.0-52.0 Erythrocyte distribution width [Ratio] by Automated count 2023-01-30 23:41:38 15.3 % F 11.0-15.0 Platelets [#/volume] in Blood by Automated count 2023-01-30 23:41:38 339 x 10^3 cells/uL F 140.0-450.0 Reticulocytes/100 erythrocytes in Blood by Automated count 2023-01-30 23:41:38 1.58 % F 0.7-2.5 Erythrocytes [#/volume] in Blood by Automated count 2023-01-30 23:41:36 3.71 x 10'6 cells/uL F 4.6-6.2 Hemoglobin [Mass/volume] in Blood 2023-01-30 23:41:36 11.5 g/dL F 14.0-18.0 Hematocrit [Volume Fraction] of Blood by Automated count 2023-01-30 23:41:36 35.7 % F 41.0-53.0 MCH [Entitic mass] by Automated count 2023-01-30 23:41:36 31 pg F 25.9-34.2 MCV [Entitic volume] by Automated count 2023-01-30 23:41:36 96.2 fL F 80.0-100.0 MCHC [Mass/volume] by Automated count 2023-01-30 23:41:36 32.2 g/dL F 29.6-35.3 IRON SATURATION 2022-12-27 06:25:35 16 % F 21.0-49.0 TIBC 2022-12-27 06:25:35 284 ug/dL F 250.0-425.0 Iron [Mass/volume] in Serum or Plasma 2022-12-27 06:19:56 45 ug/dL F 65.0-175.0 Iron binding capacity.unsaturated [Mass/volume] in Serum or Plasma 2022-12-27 06:19:56 239 ug/dL F 75.0-360.0 Ferritin [Mass/volume] in Serum or Plasma 2022-12-27 02:37:09 573 ng/mL F 22.0-322.0 HCT CALC HGBX3 2022-12-26 18:00:31 29.1 % F 42.0-52.0 Erythrocyte distribution width [Ratio] by Automated count 2022-12-26 17:59:39 15.2 % F 11.0-15.0 Erythrocytes [#/volume] in Blood by Automated count 2022-12-26 17:59:39 3.21 x 10'6 cells/uL F 4.6-6.2 Hemoglobin [Mass/volume] in Blood 2022-12-26 17:59:39 9.7 g/dL F 14.0-18.0 Hematocrit [Volume Fraction] of Blood by Automated count 2022-12-26 17:59:39 30.4 % F 41.0-53.0 MCV [Entitic volume] by Automated count 2022-12-26 17:59:39 94.4 fL F 80.0-100.0 MCH [Entitic mass] by Automated count 2022-12-26 17:59:39 30.3 pg F 25.9-34.2 MCHC [Mass/volume] by Automated count 2022-12-26 17:59:39 32.1 g/dL F 29.6-35.3 Platelets [#/volume] in Blood by Automated count 2022-12-26 17:59:39 478 x 10^3 cells/uL F 140.0-450.0 Reticulocytes/100 erythrocytes in Blood by Automated count 2022-12-26 17:59:39 3.89 % F 0.7-2.5 IRON SATURATION 2022-11-06 07:22:57 35 % F 21.0-49.0 TIBC 2022-11-06 07:22:57 283 ug/dL F 250.0-425.0 Ferritin [Mass/volume] in Serum or Plasma 2022-11-06 07:13:37 471 ng/mL F 22.0-322.0 Iron [Mass/volume] in Serum or Plasma 2022-11-06 06:55:44 99 ug/dL F 65.0-175.0 Iron binding capacity.unsaturated [Mass/volume] in Serum or Plasma 2022-11-06 06:55:44 184 ug/dL F 75.0-360.0 HCT CALC HGBX3 2022-11-05 16:54:14 28.2 % F 42.0-52.0 Erythrocyte distribution width [Ratio] by Automated count 2022-11-05 16:53:55 13.6 % F 11.0-15.0 Platelets [#/volume] in Blood by Automated count 2022-11-05 16:53:55 443 x 10^3 cells/uL F 140.0-450.0 MCHC [Mass/volume] by Automated count 2022-11-05 16:53:55 33.2 g/dL F 29.6-35.3 Erythrocytes [#/volume] in Blood by Automated count 2022-11-05 16:53:53 2.86 x 10'6 cells/uL F 4.6-6.2 Hematocrit [Volume Fraction] of Blood by Automated count 2022-11-05 16:53:53 28.1 % F 41.0-53.0 Hemoglobin [Mass/volume] in Blood 2022-11-05 16:53:53 9.4 g/dL F 14.0-18.0 MCH [Entitic mass] by Automated count 2022-11-05 16:53:53 32.7 pg F 25.9-34.2 MCV [Entitic volume] by Automated count 2022-11-05 16:53:53 98.4 fL F 80.0-100.0 Reticulocytes/100 erythrocytes in Blood by Automated count 2022-11-05 16:53:53 1.5 % F 0.7-2.5 IRON SATURATION 2022-10-01 05:34:45 30 % F 21.0-49.0 TIBC 2022-10-01 05:34:45 244 ug/dL F 250.0-425.0 Iron [Mass/volume] in Serum or Plasma 2022-10-01 05:26:11 74 ug/dL F 65.0-175.0 Iron binding capacity.unsaturated [Mass/volume] in Serum or Plasma 2022-10-01 05:26:11 170 ug/dL F 75.0-360.0 Ferritin [Mass/volume] in Serum or Plasma 2022-09-30 14:23:34 485 ng/mL F 22.0-322.0 HCT CALC HGBX3 2022-09-30 13:01:47 30.6 % F 42.0-52.0 Erythrocyte distribution width [Ratio] by Automated count 2022-09-30 13:01:37 13.2 % F 11.0-15.0 Hematocrit [Volume Fraction] of Blood by Automated count 2022-09-30 13:01:37 31.3 % F 41.0-53.0 Erythrocytes [#/volume] in Blood by Automated count 2022-09-30 13:01:37 3.18 x 10'6 cells/uL F 4.6-6.2 Hemoglobin [Mass/volume] in Blood 2022-09-30 13:01:37 10.2 g/dL F 14.0-18.0 MCV [Entitic volume] by Automated count 2022-09-30 13:01:37 98.5 fL F 80.0-100.0 MCHC [Mass/volume] by Automated count 2022-09-30 13:01:37 32.7 g/dL F 29.6-35.3 MCH [Entitic mass] by Automated count 2022-09-30 13:01:37 32.2 pg F 25.9-34.2 Platelets [#/volume] in Blood by Automated count 2022-09-30 13:01:37 400 x 10^3 cells/uL F 140.0-450.0 Reticulocytes/100 erythrocytes in Blood by Automated count 2022-09-30 13:01:37 1.53 % F 0.7-2.5 IRON SATURATION 2022-09-06 05:37:02 18 % F 21.0-49.0 TIBC 2022-09-06 05:37:02 249 ug/dL F 250.0-425.0 Iron [Mass/volume] in Serum or Plasma 2022-09-06 05:34:36 45 ug/dL F 65.0-175.0 Iron binding capacity.unsaturated [Mass/volume] in Serum or Plasma 2022-09-06 05:34:36 204 ug/dL F 75.0-360.0 Ferritin [Mass/volume] in Serum or Plasma 2022-09-05 19:51:09 488 ng/mL F 22.0-322.0 HCT CALC HGBX3 2022-09-05 18:50:53 27.6 % F 42.0-52.0 Erythrocytes [#/volume] in Blood by Automated count 2022-09-05 18:50:18 2.85 x 10'6 cells/uL F 4.6-6.2 Hematocrit [Volume Fraction] of Blood by Automated count 2022-09-05 18:50:18 27.6 % F 41.0-53.0 Hemoglobin [Mass/volume] in Blood 2022-09-05 18:50:18 9.2 g/dL F 14.0-18.0 MCH [Entitic mass] by Automated count 2022-09-05 18:50:18 32.2 pg F 25.9-34.2 Platelets [#/volume] in Blood by Automated count 2022-09-05 18:50:18 422 x 10^3 cells/uL F 140.0-450.0 Erythrocyte distribution width [Ratio] by Automated count 2022-09-05 18:50:17 13.6 % F 11.0-15.0 MCV [Entitic volume] by Automated count 2022-09-05 18:50:17 96.8 fL F 80.0-100.0 MCHC [Mass/volume] by Automated count 2022-09-05 18:50:17 33.3 g/dL F 29.6-35.3 Reticulocytes/100 erythrocytes in Blood by Automated count 2022-09-05 18:50:17 1.32 % F 0.7-2.5 HCT CALC HGBX3 2022-08-02 01:00:23 30.9 % F 42.0-52.0 Erythrocyte distribution width [Ratio] by Automated count 2022-08-02 01:00:14 12.7 % F 11.0-15.0 Erythrocytes [#/volume] in Blood by Automated count 2022-08-02 01:00:14 3.18 x 10'6 cells/uL F 4.6-6.2 Hematocrit [Volume Fraction] of Blood by Automated count 2022-08-02 01:00:14 30.7 % F 41.0-53.0 MCV [Entitic volume] by Automated count 2022-08-02 01:00:14 96.6 fL F 80.0-100.0 MCH [Entitic mass] by Automated count 2022-08-02 01:00:14 32.2 pg F 25.9-34.2 Hemoglobin [Mass/volume] in Blood 2022-08-02 01:00:14 10.3 g/dL F 14.0-18.0 MCHC [Mass/volume] by Automated count 2022-08-02 01:00:14 33.4 g/dL F 29.6-35.3 Platelets [#/volume] in Blood by Automated count 2022-08-02 01:00:14 494 x 10^3 cells/uL F 140.0-450.0 Reticulocytes/100 erythrocytes in Blood by Automated count 2022-08-02 01:00:14 1.48 % F 0.7-2.5 Ferritin [Mass/volume] in Serum or Plasma 2022-08-01 15:41:08 763 ng/mL F 22.0-322.0 HCT CALC HGBX3 2022-07-10 03:45:44 33.9 % F 42.0-52.0 Erythrocyte distribution width [Ratio] by Automated count 2022-07-10 03:45:14 12.9 % F 11.0-15.0 Erythrocytes [#/volume] in Blood by Automated count 2022-07-10 03:45:14 3.38 x 10'6 cells/uL F 4.6-6.2 Hemoglobin [Mass/volume] in Blood 2022-07-10 03:45:14 11.3 g/dL F 14.0-18.0 MCH [Entitic mass] by Automated count 2022-07-10 03:45:14 33.3 pg F 27.0-31.0 MCV [Entitic volume] by Automated count 2022-07-10 03:45:14 96.6 fL F 80.0-100.0 MCHC [Mass/volume] by Automated count 2022-07-10 03:45:14 34.5 g/dL F 32.0-36.0 Hematocrit [Volume Fraction] of Blood by Automated count 2022-07-10 03:45:14 32.6 % F 42.0-52.0 Platelets [#/volume] in Blood by Automated count 2022-07-10 03:45:14 352 x 10^3 cells/uL F 150.0-400.0 IRON SATURATION 2022-07-10 03:24:07 38 % F 21.0-49.0 TIBC 2022-07-10 03:24:07 265 ug/dL F 250.0-425.0 Iron [Mass/volume] in Serum or Plasma 2022-07-10 03:20:07 102 ug/dL F 65.0-175.0 Iron binding capacity.unsaturated [Mass/volume] in Serum or Plasma 2022-07-10 03:20:07 163 ug/dL F 75.0-360.0 Ferritin [Mass/volume] in Serum or Plasma 2022-07-09 20:22:27 622 ng/mL F 22.0-322.0 IRON SATURATION 2022-05-30 06:40:44 24 % F 21.0-49.0 TIBC 2022-05-30 06:40:44 297 ug/dL F 250.0-425.0 Iron [Mass/volume] in Serum or Plasma 2022-05-30 06:20:43 70 ug/dL F 65.0-175.0 Iron binding capacity.unsaturated [Mass/volume] in Serum or Plasma 2022-05-30 06:20:43 227 ug/dL F 75.0-360.0 Ferritin [Mass/volume] in Serum or Plasma 2022-05-30 05:40:15 383 ng/mL F 22.0-322.0 HCT CALC HGBX3 2022-05-30 03:04:33 35.7 % F 42.0-52.0 Erythrocyte distribution width [Ratio] by Automated count 2022-05-30 03:04:16 14 % F 11.0-15.0 Erythrocytes [#/volume] in Blood by Automated count 2022-05-30 03:04:16 3.69 x 10'6 cells/uL F 4.6-6.2 Hematocrit [Volume Fraction] of Blood by Automated count 2022-05-30 03:04:16 35.9 % F 42.0-52.0 MCV [Entitic volume] by Automated count 2022-05-30 03:04:16 97.1 fL F 80.0-100.0 MCH [Entitic mass] by Automated count 2022-05-30 03:04:16 32.1 pg F 27.0-31.0 Hemoglobin [Mass/volume] in Blood 2022-05-30 03:04:16 11.9 g/dL F 14.0-18.0 MCHC [Mass/volume] by Automated count 2022-05-30 03:04:16 33.1 g/dL F 32.0-36.0 Platelets [#/volume] in Blood by Automated count 2022-05-30 03:04:16 402 x 10^3 cells/uL F 150.0-400.0 IRON SATURATION 2022-05-13 05:52:10 37 % F 21.0-49.0 TIBC 2022-05-13 05:52:10 304 ug/dL F 250.0-425.0 Iron [Mass/volume] in Serum or Plasma 2022-05-13 04:30:35 111 ug/dL F 65.0-175.0 Iron binding capacity.unsaturated [Mass/volume] in Serum or Plasma 2022-05-13 04:30:35 193 ug/dL F 75.0-360.0 Ferritin [Mass/volume] in Serum or Plasma 2022-05-13 03:03:16 398 ng/mL F 22.0-322.0 HCT CALC HGBX3 2022-05-13 02:25:27 37.8 % F 42.0-52.0 Hematocrit [Volume Fraction] of Blood by Automated count 2022-05-13 02:25:13 41 % F 42.0-52.0 Erythrocyte distribution width [Ratio] by Automated count 2022-05-13 02:25:13 14.3 % F 11.0-15.0 Erythrocytes [#/volume] in Blood by Automated count 2022-05-13 02:25:13 4.1 x 10'6 cells/uL F 4.6-6.2 Hemoglobin [Mass/volume] in Blood 2022-05-13 02:25:13 12.6 g/dL F 14.0-18.0 MCV [Entitic volume] by Automated count 2022-05-13 02:25:13 100 fL F 80.0-100.0 MCH [Entitic mass] by Automated count 2022-05-13 02:25:13 30.8 pg F 27.0-31.0 Platelets [#/volume] in Blood by Automated count 2022-05-13 02:25:13 351 x 10^3 cells/uL F 150.0-400.0 MCHC [Mass/volume] by Automated count 2022-05-13 02:25:13 30.8 g/dL F 32.0-36.0 IRON SATURATION 2022-04-02 07:20:32 16 % F 21.0-49.0 TIBC 2022-04-02 07:20:32 302 ug/dL F 250.0-425.0 Iron binding capacity.unsaturated [Mass/volume] in Serum or Plasma 2022-04-02 07:16:53 254 ug/dL F 75.0-360.0 Iron [Mass/volume] in Serum or Plasma 2022-04-01 22:44:32 48 ug/dL F 65.0-175.0 HCT CALC HGBX3 2022-04-01 21:14:47 39.3 % F 42.0-52.0 Erythrocyte distribution width [Ratio] by Automated count 2022-04-01 21:14:34 14.4 % F 11.0-15.0 Erythrocytes [#/volume] in Blood by Automated count 2022-04-01 21:14:34 4.25 x 10'6 cells/uL F 4.6-6.2 Hematocrit [Volume Fraction] of Blood by Automated count 2022-04-01 21:14:34 39.7 % F 42.0-52.0 Hemoglobin [Mass/volume] in Blood 2022-04-01 21:14:34 13.1 g/dL F 14.0-18.0 MCH [Entitic mass] by Automated count 2022-04-01 21:14:34 30.7 pg F 27.0-31.0 MCV [Entitic volume] by Automated count 2022-04-01 21:14:34 93.3 fL F 80.0-100.0 Platelets [#/volume] in Blood by Automated count 2022-04-01 21:14:34 390 x 10^3 cells/uL F 150.0-400.0 MCHC [Mass/volume] by Automated count 2022-04-01 21:14:34 32.9 g/dL F 32.0-36.0 Ferritin [Mass/volume] in Serum or Plasma 2022-04-01 19:17:55 327 ng/mL F 22.0-322.0 IRON SATURATION 2022-03-06 05:18:04 24 % F 21.0-49.0 TIBC 2022-03-06 05:18:04 304 ug/dL F 250.0-425.0 Iron [Mass/volume] in Serum or Plasma 2022-03-06 05:02:10 72 ug/dL F 65.0-175.0 Iron binding capacity.unsaturated [Mass/volume] in Serum or Plasma 2022-03-06 05:02:10 232 ug/dL F 75.0-360.0 Ferritin [Mass/volume] in Serum or Plasma 2022-03-06 00:51:01 277 ng/mL F 22.0-322.0 HCT CALC HGBX3 2022-03-05 19:17:08 36.9 % F 42.0-52.0 Erythrocyte distribution width [Ratio] by Automated count 2022-03-05 19:16:52 14.6 % F 11.0-15.0 Erythrocytes [#/volume] in Blood by Automated count 2022-03-05 19:16:52 3.79 x 10'6 cells/uL F 4.6-6.2 Hematocrit [Volume Fraction] of Blood by Automated count 2022-03-05 19:16:52 35.6 % F 42.0-52.0 Hemoglobin [Mass/volume] in Blood 2022-03-05 19:16:52 12.3 g/dL F 14.0-18.0 MCH [Entitic mass] by Automated count 2022-03-05 19:16:52 32.3 pg F 27.0-31.0 MCV [Entitic volume] by Automated count 2022-03-05 19:16:52 94 fL F 80.0-100.0 MCHC [Mass/volume] by Automated count 2022-03-05 19:16:52 34.4 g/dL F 32.0-36.0 Platelets [#/volume] in Blood by Automated count 2022-03-05 19:16:52 359 x 10^3 cells/uL F 150.0-400.0 IRON SATURATION 2022-01-29 05:06:53 28 % F 21.0-49.0 TIBC 2022-01-29 05:06:53 292 ug/dL F 250.0-425.0 Iron [Mass/volume] in Serum or Plasma 2022-01-29 04:55:33 82 ug/dL F 65.0-175.0 Iron binding capacity.unsaturated [Mass/volume] in Serum or Plasma 2022-01-29 04:55:33 210 ug/dL F 75.0-360.0 HCT CALC HGBX3 2022-01-29 00:12:01 33.9 % F 42.0-52.0 Erythrocyte distribution width [Ratio] by Automated count 2022-01-29 00:10:48 15.1 % F 11.0-15.0 Erythrocytes [#/volume] in Blood by Automated count 2022-01-29 00:10:48 3.57 x 10'6 cells/uL F 4.6-6.2 Hematocrit [Volume Fraction] of Blood by Automated count 2022-01-29 00:10:48 35.1 % F 42.0-52.0 Hemoglobin [Mass/volume] in Blood 2022-01-29 00:10:48 11.3 g/dL F 14.0-18.0 MCV [Entitic volume] by Automated count 2022-01-29 00:10:48 98.3 fL F 80.0-100.0 MCH [Entitic mass] by Automated count 2022-01-29 00:10:48 31.5 pg F 27.0-31.0 MCHC [Mass/volume] by Automated count 2022-01-29 00:10:48 32.1 g/dL F 32.0-36.0 Platelets [#/volume] in Blood by Automated count 2022-01-29 00:10:48 343 x 10^3 cells/uL F 150.0-400.0 Ferritin [Mass/volume] in Serum or Plasma 2022-01-28 22:30:50 292 ng/mL F 22.0-322.0 FluidBP Description Draw Date Result/Unit Status Ref Range Result Comments Sodium [Moles/volume] in Serum or Plasma 2024-01-28 07:21:27 139 mEq/L F 132.0-146.0 Sodium [Moles/volume] in Serum or Plasma 2024-01-01 18:46:29 134 mEq/L F 132.0-146.0 Sodium [Moles/volume] in Serum or Plasma 2023-12-08 06:29:47 136 mEq/L F 132.0-146.0 Sodium [Moles/volume] in Serum or Plasma 2023-11-03 06:02:33 135 mEq/L F 132.0-146.0 Sodium [Moles/volume] in Serum or Plasma 2023-10-15 18:25:04 133 mEq/L F 132.0-146.0 Sodium [Moles/volume] in Serum or Plasma 2023-09-01 07:10:20 132 mEq/L F 132.0-146.0 Sodium [Moles/volume] in Serum or Plasma 2023-07-31 07:05:52 135 mEq/L F 132.0-146.0 Sodium [Moles/volume] in Serum or Plasma 2023-06-30 06:43:22 130 mEq/L F 132.0-146.0 Sodium [Moles/volume] in Serum or Plasma 2023-06-02 07:35:22 133 mEq/L F 132.0-146.0 Sodium [Moles/volume] in Serum or Plasma 2023-05-02 06:57:54 134 mEq/L F 132.0-146.0 Sodium [Moles/volume] in Serum or Plasma 2023-04-01 04:55:55 131 mEq/L F 132.0-146.0 Sodium [Moles/volume] in Serum or Plasma 2023-03-06 17:22:55 130 mEq/L F 132.0-146.0 Sodium [Moles/volume] in Serum or Plasma 2023-02-01 21:02:59 136 mEq/L F 132.0-146.0 Sodium [Moles/volume] in Serum or Plasma 2022-12-26 22:22:31 141 mEq/L F 132.0-146.0 Sodium [Moles/volume] in Serum or Plasma 2022-11-06 04:06:32 137 mEq/L F 132.0-146.0 Sodium [Moles/volume] in Serum or Plasma 2022-09-30 21:12:35 129 mEq/L F 132.0-146.0 Sodium [Moles/volume] in Serum or Plasma 2022-07-09 18:46:18 124 mEq/L F 132.0-146.0 Sodium [Moles/volume] in Serum or Plasma 2022-05-29 20:29:28 138 mEq/L F 132.0-146.0 Sodium [Moles/volume] in Serum or Plasma 2022-05-12 23:56:17 134 mEq/L F 132.0-146.0 Sodium [Moles/volume] in Serum or Plasma 2022-04-01 20:19:58 129 mEq/L F 132.0-146.0 Sodium [Moles/volume] in Serum or Plasma 2022-03-06 00:57:46 133 mEq/L F 132.0-146.0 Sodium [Moles/volume] in Serum or Plasma 2022-01-28 23:46:37 136 mEq/L F 132.0-146.0 General Description Draw Date Result/Unit Status Ref Range Result Comments JEFFREY PD 2024-01-27 18:06:37 6.8 g/day F Alanine aminotransferase [Enzymatic activity/volume] in Serum or Plasma 2024-01-27 16:44:27 18 U/L F 10.0-49.0 Aspartate aminotransferase [Enzymatic activity/volume] in Serum or Plasma 2024-01-27 16:44:27 17 U/L F 0.0-33.0 Alanine aminotransferase [Enzymatic activity/volume] in Serum or Plasma 2024-01-01 14:44:17 12 U/L F 10.0-49.0 Aspartate aminotransferase [Enzymatic activity/volume] in Serum or Plasma 2024-01-01 14:44:17 14 U/L F 0.0-33.0 Alanine aminotransferase [Enzymatic activity/volume] in Serum or Plasma 2023-12-07 15:23:27 21 U/L F 10.0-49.0 Aspartate aminotransferase [Enzymatic activity/volume] in Serum or Plasma 2023-12-07 15:23:27 17 U/L F 0.0-33.0 JEFFREY PD 2023-11-02 20:56:41 5.1 g/day F Alanine aminotransferase [Enzymatic activity/volume] in Serum or Plasma 2023-11-02 18:31:14 57 U/L F 10.0-49.0 Aspartate aminotransferase [Enzymatic activity/volume] in Serum or Plasma 2023-11-02 18:31:14 26 U/L F 0.0-33.0 Alanine aminotransferase [Enzymatic activity/volume] in Serum or Plasma 2023-10-15 14:40:34 39 U/L F 10.0-49.0 Aspartate aminotransferase [Enzymatic activity/volume] in Serum or Plasma 2023-10-15 14:40:34 26 U/L F 0.0-33.0 Alanine aminotransferase [Enzymatic activity/volume] in Serum or Plasma 2023-09-01 05:47:38 58 U/L F 10.0-49.0 Aspartate aminotransferase [Enzymatic activity/volume] in Serum or Plasma 2023-09-01 05:47:38 37 U/L F 0.0-33.0 JEFFREY PD 2023-08-02 12:49:01 5.7 g/day K Alanine aminotransferase [Enzymatic activity/volume] in Serum or Plasma 2023-07-31 05:41:36 43 U/L F 10.0-49.0 Aspartate aminotransferase [Enzymatic activity/volume] in Serum or Plasma 2023-07-31 05:41:36 29 U/L F 0.0-33.0 Alanine aminotransferase [Enzymatic activity/volume] in Serum or Plasma 2023-06-29 23:06:40 27 U/L F 10.0-49.0 Aspartate aminotransferase [Enzymatic activity/volume] in Serum or Plasma 2023-06-29 23:06:40 22 U/L F 0.0-33.0 Alanine aminotransferase [Enzymatic activity/volume] in Serum or Plasma 2023-06-02 03:13:32 38 U/L F 10.0-49.0 Aspartate aminotransferase [Enzymatic activity/volume] in Serum or Plasma 2023-06-02 03:13:32 25 U/L F 0.0-33.0 JEFFREY PD 2023-05-07 05:43:43 7.7 g/day F Alanine aminotransferase [Enzymatic activity/volume] in Serum or Plasma 2023-05-02 04:53:49 26 U/L F 10.0-49.0 Aspartate aminotransferase [Enzymatic activity/volume] in Serum or Plasma 2023-05-02 04:53:49 21 U/L F 0.0-33.0 Alanine aminotransferase [Enzymatic activity/volume] in Serum or Plasma 2023-03-31 20:43:14 59 U/L F 10.0-49.0 Aspartate aminotransferase [Enzymatic activity/volume] in Serum or Plasma 2023-03-31 20:43:14 35 U/L F 0.0-33.0 Aluminum [Mass/volume] in Serum or Plasma 2023-03-08 18:58:17 10 ug/L F 0.0-9.0 Aspartate aminotransferase [Enzymatic activity/volume] in Serum or Plasma 2023-03-06 15:21:16 22 U/L F 0.0-33.0 Alanine aminotransferase [Enzymatic activity/volume] in Serum or Plasma 2023-03-06 15:21:14 29 U/L F 10.0-49.0 JEFFREY PD 2023-02-01 19:00:38 8.7 g/day F Alanine aminotransferase [Enzymatic activity/volume] in Serum or Plasma 2023-02-01 18:03:26 30 U/L F 10.0-49.0 Aspartate aminotransferase [Enzymatic activity/volume] in Serum or Plasma 2023-02-01 18:03:26 22 U/L F 0.0-33.0 Alanine aminotransferase [Enzymatic activity/volume] in Serum or Plasma 2022-12-26 22:22:31 48 U/L F 10.0-49.0 Aspartate aminotransferase [Enzymatic activity/volume] in Serum or Plasma 2022-12-26 22:22:31 41 U/L F 0.0-33.0 Alanine aminotransferase [Enzymatic activity/volume] in Serum or Plasma 2022-11-06 04:06:32 23 U/L F 10.0-49.0 Aspartate aminotransferase [Enzymatic activity/volume] in Serum or Plasma 2022-11-06 04:06:32 18 U/L F 0.0-33.0 JEFRFEY PD 2022-11-05 19:36:45 10.4 g/day F Alanine aminotransferase [Enzymatic activity/volume] in Serum or Plasma 2022-09-30 21:12:35 20 U/L F 10.0-49.0 Aspartate aminotransferase [Enzymatic activity/volume] in Serum or Plasma 2022-09-30 21:12:35 19 U/L F 0.0-33.0 Alanine aminotransferase [Enzymatic activity/volume] in Serum or Plasma 2022-09-05 19:06:17 17 U/L F 10.0-49.0 JEFFREY PD 2022-09-05 16:04:27 5.8 g/day F Aluminum [Mass/volume] in Serum or Plasma 2022-08-03 16:17:15 10 ug/L F 0.0-9.0 Chloride [Moles/volume] in Serum or Plasma 2022-07-09 18:46:18 86 mEq/L F 99.0-109.0 Alanine aminotransferase [Enzymatic activity/volume] in Serum or Plasma 2022-07-09 18:46:18 22 U/L F 10.0-49.0 JEFFREY PD 2022-05-29 23:12:41 4.5 g/day F Chloride [Moles/volume] in Serum or Plasma 2022-05-29 20:29:28 102 mEq/L F 99.0-109.0 Alanine aminotransferase [Enzymatic activity/volume] in Serum or Plasma 2022-05-29 20:29:28 21 U/L F 10.0-49.0 Chloride [Moles/volume] in Serum or Plasma 2022-05-12 23:56:17 97 mEq/L F 99.0-109.0 Alanine aminotransferase [Enzymatic activity/volume] in Serum or Plasma 2022-05-12 23:56:17 24 U/L F 10.0-49.0 JEFFREY PD 2022-04-01 22:57:54 5.1 g/day F Chloride [Moles/volume] in Serum or Plasma 2022-04-01 20:19:58 93 mEq/L F 99.0-109.0 Alanine aminotransferase [Enzymatic activity/volume] in Serum or Plasma 2022-04-01 20:19:58 26 U/L F 10.0-49.0 Chloride [Moles/volume] in Serum or Plasma 2022-03-06 00:57:46 94 mEq/L F 99.0-109.0 Alanine aminotransferase [Enzymatic activity/volume] in Serum or Plasma 2022-03-06 00:57:46 22 U/L F 10.0-49.0 Aspartate aminotransferase [Enzymatic activity/volume] in Serum or Plasma 2022-03-06 00:57:46 22 U/L F 0.0-33.0 Bilirubin.total [Mass/volume] in Serum or Plasma 2022-03-06 00:57:46 0.2 mg/dL F 0.3-1.2 JEFFREY PD 2022-03-05 21:06:16 5.7 g/day F JEFFREY PD 2022-01-29 00:06:34 4.7 g/day F Chloride [Moles/volume] in Serum or Plasma 2022-01-28 23:46:37 101 mEq/L F 99.0-109.0 Alanine aminotransferase [Enzymatic activity/volume] in Serum or Plasma 2022-01-28 23:46:37 19 U/L F 10.0-49.0 InfectionVaccination Description Draw Date Result/Unit Status Ref Range Result Comments Neutrophils/100 leukocytes in Blood by Automated count 2024-01-27 18:18:14 65 % F Monocytes/100 leukocytes in Blood by Automated count 2024-01-27 18:18:14 8.6 % F Lymphocytes/100 leukocytes in Blood by Automated count 2024-01-27 18:18:14 14.6 % F Leukocytes [#/volume] in Blood by Automated count 2024-01-27 18:18:14 12.8 x 10^3 cells/uL F 4.0-11.0 Basophils [#/volume] in Blood by Automated count 2024-01-27 18:18:14 26 Cells/uL F 0.0-400.0 Lymphocytes [#/volume] in Blood by Automated count 2024-01-27 18:18:14 1876 Cells/uL F 620.0-3660.0 Basophils/100 leukocytes in Blood by Automated count 2024-01-27 18:18:13 0.2 % F Eosinophils/100 leukocytes in Blood by Automated count 2024-01-27 18:18:13 11.4 % F Neutrophils [#/volume] in Blood by Automated count 2024-01-27 18:18:13 8352 Cells/uL F 2000.0-8800.0 Monocytes [#/volume] in Blood by Automated count 2024-01-27 18:18:13 1105 Cells/uL F 0.0-1100.0 Eosinophils [#/volume] in Blood by Automated count 2024-01-27 18:18:13 1465 Cells/uL F 0.0-700.0 Basophils/100 leukocytes in Blood by Automated count 2024-01-01 14:57:08 0.4 % F Lymphocytes/100 leukocytes in Blood by Automated count 2024-01-01 14:57:08 12.7 % F Monocytes/100 leukocytes in Blood by Automated count 2024-01-01 14:57:08 5.6 % F Neutrophils/100 leukocytes in Blood by Automated count 2024-01-01 14:57:08 65.9 % F Eosinophils/100 leukocytes in Blood by Automated count 2024-01-01 14:57:08 15.4 % F Leukocytes [#/volume] in Blood by Automated count 2024-01-01 14:57:08 9.9 x 10^3 cells/uL F 4.0-11.0 Neutrophils [#/volume] in Blood by Automated count 2024-01-01 14:57:08 6518 Cells/uL F 2000.0-8800.0 Lymphocytes [#/volume] in Blood by Automated count 2024-01-01 14:57:08 1256 Cells/uL F 620.0-3660.0 Monocytes [#/volume] in Blood by Automated count 2024-01-01 14:57:08 554 Cells/uL F 0.0-1100.0 Basophils [#/volume] in Blood by Automated count 2024-01-01 14:57:08 40 Cells/uL F 0.0-400.0 Eosinophils [#/volume] in Blood by Automated count 2024-01-01 14:57:08 1523 Cells/uL F 0.0-700.0 Neutrophils/100 leukocytes in Blood by Automated count 2023-12-07 14:49:21 62.9 % F Lymphocytes/100 leukocytes in Blood by Automated count 2023-12-07 14:49:21 8.7 % F Eosinophils/100 leukocytes in Blood by Automated count 2023-12-07 14:49:21 21.6 % F Monocytes/100 leukocytes in Blood by Automated count 2023-12-07 14:49:21 6.3 % F Neutrophils [#/volume] in Blood by Automated count 2023-12-07 14:49:21 7145 Cell/uL F 2000.0-8800.0 Lymphocytes [#/volume] in Blood by Automated count 2023-12-07 14:49:21 988 Cell/uL F 620.0-3660.0 Basophils/100 leukocytes in Blood by Automated count 2023-12-07 14:49:19 0.5 % F Leukocytes [#/volume] in Blood by Automated count 2023-12-07 14:49:19 11.4 x 10^3 cells/uL F 4.0-11.0 Monocytes [#/volume] in Blood by Automated count 2023-12-07 14:49:19 716 Cell/uL F 0.0-1100.0 Basophils [#/volume] in Blood by Automated count 2023-12-07 14:49:19 57 Cell/uL F 0.0-400.0 Eosinophils [#/volume] in Blood by Automated count 2023-12-07 14:49:19 2454 Cell/uL F 0.0-700.0 Basophils/100 leukocytes in Blood by Automated count 2023-11-02 19:36:13 0.4 % F Lymphocytes/100 leukocytes in Blood by Automated count 2023-11-02 19:36:13 11.1 % F Neutrophils/100 leukocytes in Blood by Automated count 2023-11-02 19:36:13 61.7 % F Monocytes/100 leukocytes in Blood by Automated count 2023-11-02 19:36:13 6.9 % F Eosinophils/100 leukocytes in Blood by Automated count 2023-11-02 19:36:13 20 % F Leukocytes [#/volume] in Blood by Automated count 2023-11-02 19:36:13 10.5 x 10^3 cells/uL F 4.0-11.0 Neutrophils [#/volume] in Blood by Automated count 2023-11-02 19:36:13 6478 Cell/uL F 2000.0-8800.0 Lymphocytes [#/volume] in Blood by Automated count 2023-11-02 19:36:13 1166 Cell/uL F 620.0-3660.0 Monocytes [#/volume] in Blood by Automated count 2023-11-02 19:36:13 724 Cell/uL F 0.0-1100.0 Basophils [#/volume] in Blood by Automated count 2023-11-02 19:36:13 42 Cell/uL F 0.0-400.0 Eosinophils [#/volume] in Blood by Automated count 2023-11-02 19:36:13 2100 Cell/uL F 0.0-700.0 Basophils/100 leukocytes in Blood by Automated count 2023-10-15 14:34:28 0.2 % F Neutrophils/100 leukocytes in Blood by Automated count 2023-10-15 14:34:28 65.6 % F Lymphocytes/100 leukocytes in Blood by Automated count 2023-10-15 14:34:28 13.4 % F Monocytes/100 leukocytes in Blood by Automated count 2023-10-15 14:34:28 8.5 % F Eosinophils/100 leukocytes in Blood by Automated count 2023-10-15 14:34:28 12.2 % F Leukocytes [#/volume] in Blood by Automated count 2023-10-15 14:34:28 12 x 10^3 cells/uL F 4.0-11.0 Neutrophils [#/volume] in Blood by Automated count 2023-10-15 14:34:28 7865 Cell/uL F 2000.0-8800.0 Lymphocytes [#/volume] in Blood by Automated count 2023-10-15 14:34:28 1607 Cell/uL F 620.0-3660.0 Monocytes [#/volume] in Blood by Automated count 2023-10-15 14:34:28 1019 Cell/uL F 0.0-1100.0 Basophils [#/volume] in Blood by Automated count 2023-10-15 14:34:28 24 Cell/uL F 0.0-400.0 Eosinophils [#/volume] in Blood by Automated count 2023-10-15 14:34:28 1463 Cell/uL F 0.0-700.0 Basophils/100 leukocytes in Blood by Automated count 2023-08-31 18:09:34 0.6 % F Monocytes/100 leukocytes in Blood by Automated count 2023-08-31 18:09:34 6.7 % F Eosinophils/100 leukocytes in Blood by Automated count 2023-08-31 18:09:34 13.5 % F Neutrophils [#/volume] in Blood by Automated count 2023-08-31 18:09:34 97829 Cell/uL F 2000.0-8800.0 Neutrophils/100 leukocytes in Blood by Automated count 2023-08-31 18:09:32 68.9 % F Lymphocytes/100 leukocytes in Blood by Automated count 2023-08-31 18:09:32 10.3 % F Leukocytes [#/volume] in Blood by Automated count 2023-08-31 18:09:32 14.6 x 10^3 cells/uL F 4.0-11.0 Lymphocytes [#/volume] in Blood by Automated count 2023-08-31 18:09:32 1503 Cell/uL F 620.0-3660.0 Monocytes [#/volume] in Blood by Automated count 2023-08-31 18:09:32 978 Cell/uL F 0.0-1100.0 Basophils [#/volume] in Blood by Automated count 2023-08-31 18:09:32 88 Cell/uL F 0.0-400.0 Eosinophils [#/volume] in Blood by Automated count 2023-08-31 18:09:32 1970 Cell/uL F 0.0-700.0 Basophils/100 leukocytes in Blood by Automated count 2023-07-31 06:04:29 0.6 % F Neutrophils/100 leukocytes in Blood by Automated count 2023-07-31 06:04:29 74 % F Lymphocytes/100 leukocytes in Blood by Automated count 2023-07-31 06:04:29 10.6 % F Monocytes/100 leukocytes in Blood by Automated count 2023-07-31 06:04:29 5.4 % F Eosinophils/100 leukocytes in Blood by Automated count 2023-07-31 06:04:29 9.3 % F Leukocytes [#/volume] in Blood by Automated count 2023-07-31 06:04:29 11 x 10^3 cells/uL F 4.0-11.0 Neutrophils [#/volume] in Blood by Automated count 2023-07-31 06:04:29 8155 Cell/uL F 2000.0-8800.0 Monocytes [#/volume] in Blood by Automated count 2023-07-31 06:04:29 595 Cell/uL F 0.0-1100.0 Lymphocytes [#/volume] in Blood by Automated count 2023-07-31 06:04:29 1168 Cell/uL F 620.0-3660.0 Basophils [#/volume] in Blood by Automated count 2023-07-31 06:04:29 66 Cell/uL F 0.0-400.0 Eosinophils [#/volume] in Blood by Automated count 2023-07-31 06:04:29 1025 Cell/uL F 0.0-700.0 Basophils/100 leukocytes in Blood by Automated count 2023-06-30 04:47:44 0.6 % F Monocytes/100 leukocytes in Blood by Automated count 2023-06-30 04:47:44 5.7 % F Eosinophils/100 leukocytes in Blood by Automated count 2023-06-30 04:47:44 12.3 % F Lymphocytes/100 leukocytes in Blood by Automated count 2023-06-30 04:47:44 9.2 % F Neutrophils/100 leukocytes in Blood by Automated count 2023-06-30 04:47:44 72.2 % F Leukocytes [#/volume] in Blood by Automated count 2023-06-30 04:47:44 10.6 x 10^3 cells/uL F 4.0-11.0 Neutrophils [#/volume] in Blood by Automated count 2023-06-30 04:47:44 7668 Cell/uL F 2000.0-8800.0 Lymphocytes [#/volume] in Blood by Automated count 2023-06-30 04:47:44 977 Cell/uL F 620.0-3660.0 Monocytes [#/volume] in Blood by Automated count 2023-06-30 04:47:44 605 Cell/uL F 0.0-1100.0 Basophils [#/volume] in Blood by Automated count 2023-06-30 04:47:44 64 Cell/uL F 0.0-400.0 Eosinophils [#/volume] in Blood by Automated count 2023-06-30 04:47:44 1306 Cell/uL F 0.0-700.0 Leukocytes [#/volume] in Blood by Automated count 2023-06-02 14:05:45 11.3 x 10^3 cells/uL F 4.0-11.0 Basophils [#/volume] in Blood by Automated count 2023-06-02 14:05:45 227 Cell/uL F 0.0-400.0 Eosinophils [#/volume] in Blood by Automated count 2023-06-02 14:05:45 1100 Cell/uL F 0.0-700.0 Basophils/100 leukocytes in Blood by Automated count 2023-06-02 14:05:43 2 % F Neutrophils/100 leukocytes in Blood by Automated count 2023-06-02 14:05:43 71.5 % F Lymphocytes/100 leukocytes in Blood by Automated count 2023-06-02 14:05:43 11.8 % F Eosinophils/100 leukocytes in Blood by Automated count 2023-06-02 14:05:43 9.7 % F Monocytes/100 leukocytes in Blood by Automated count 2023-06-02 14:05:43 5 % F Lymphocytes [#/volume] in Blood by Automated count 2023-06-02 14:05:43 1338 Cell/uL F 620.0-3660.0 Neutrophils [#/volume] in Blood by Automated count 2023-06-02 14:05:43 8108 Cell/uL F 2000.0-8800.0 Monocytes [#/volume] in Blood by Automated count 2023-06-02 14:05:43 567 Cell/uL F 0.0-1100.0 Basophils/100 leukocytes in Blood by Automated count 2023-05-02 02:20:21 0.7 % F Lymphocytes/100 leukocytes in Blood by Automated count 2023-05-02 02:20:21 11.6 % F Neutrophils [#/volume] in Blood by Automated count 2023-05-02 02:20:21 7595 Cell/uL F 2000.0-8800.0 Monocytes [#/volume] in Blood by Automated count 2023-05-02 02:20:21 583 Cell/uL F 0.0-1100.0 Lymphocytes [#/volume] in Blood by Automated count 2023-05-02 02:20:21 1167 Cell/uL F 620.0-3660.0 Basophils [#/volume] in Blood by Automated count 2023-05-02 02:20:21 70 Cell/uL F 0.0-400.0 Eosinophils [#/volume] in Blood by Automated count 2023-05-02 02:20:21 644 Cell/uL F 0.0-700.0 Neutrophils/100 leukocytes in Blood by Automated count 2023-05-02 02:20:19 75.5 % F Eosinophils/100 leukocytes in Blood by Automated count 2023-05-02 02:20:19 6.4 % F Leukocytes [#/volume] in Blood by Automated count 2023-05-02 02:20:19 10.1 x 10^3 cells/uL F 4.0-11.0 Monocytes/100 leukocytes in Blood by Automated count 2023-05-02 02:20:19 5.8 % F Lymphocytes/100 leukocytes in Blood by Automated count 2023-03-31 18:25:39 11.1 % F Basophils [#/volume] in Blood by Automated count 2023-03-31 18:25:39 24 Cell/uL F 0.0-400.0 Eosinophils [#/volume] in Blood by Automated count 2023-03-31 18:25:39 1940 Cell/uL F 0.0-700.0 Leukocytes [#/volume] in Blood by Automated count 2023-03-31 18:25:35 11.8 x 10^3 cells/uL F 4.0-11.0 Lymphocytes [#/volume] in Blood by Automated count 2023-03-31 18:25:35 1313 Cell/uL F 620.0-3660.0 Neutrophils [#/volume] in Blood by Automated count 2023-03-31 18:25:35 7619 Cell/uL F 2000.0-8800.0 Monocytes [#/volume] in Blood by Automated count 2023-03-31 18:25:35 946 Cell/uL F 0.0-1100.0 Basophils/100 leukocytes in Blood by Automated count 2023-03-31 18:25:32 0.2 % F Neutrophils/100 leukocytes in Blood by Automated count 2023-03-31 18:25:32 64.4 % F Eosinophils/100 leukocytes in Blood by Automated count 2023-03-31 18:25:32 16.4 % F Monocytes/100 leukocytes in Blood by Automated count 2023-03-31 18:25:32 8 % F Neutrophils/100 leukocytes in Blood by Automated count 2023-03-06 16:24:36 78.6 % F Basophils/100 leukocytes in Blood by Automated count 2023-03-06 16:24:36 0.5 % F Lymphocytes/100 leukocytes in Blood by Automated count 2023-03-06 16:24:36 8.1 % F Monocytes/100 leukocytes in Blood by Automated count 2023-03-06 16:24:36 6.2 % F Eosinophils/100 leukocytes in Blood by Automated count 2023-03-06 16:24:36 6.6 % F Leukocytes [#/volume] in Blood by Automated count 2023-03-06 16:24:36 11.8 x 10^3 cells/uL F 4.0-11.0 Lymphocytes [#/volume] in Blood by Automated count 2023-03-06 16:24:36 959 Cell/uL F 620.0-3660.0 Neutrophils [#/volume] in Blood by Automated count 2023-03-06 16:24:36 9306 Cell/uL F 2000.0-8800.0 Monocytes [#/volume] in Blood by Automated count 2023-03-06 16:24:36 734 Cell/uL F 0.0-1100.0 Basophils [#/volume] in Blood by Automated count 2023-03-06 16:24:36 59 Cell/uL F 0.0-400.0 Eosinophils [#/volume] in Blood by Automated count 2023-03-06 16:24:36 781 Cell/uL F 0.0-700.0 Neutrophils/100 leukocytes in Blood by Automated count 2023-01-30 23:41:38 67.7 % F Neutrophils [#/volume] in Blood by Automated count 2023-01-30 23:41:38 5761 Cell/uL F 2000.0-8800.0 Basophils/100 leukocytes in Blood by Automated count 2023-01-30 23:41:36 0.8 % F Lymphocytes/100 leukocytes in Blood by Automated count 2023-01-30 23:41:36 18.1 % F Monocytes/100 leukocytes in Blood by Automated count 2023-01-30 23:41:36 7.6 % F Eosinophils/100 leukocytes in Blood by Automated count 2023-01-30 23:41:36 5.8 % F Leukocytes [#/volume] in Blood by Automated count 2023-01-30 23:41:36 8.5 x 10^3 cells/uL F 4.0-11.0 Monocytes [#/volume] in Blood by Automated count 2023-01-30 23:41:36 647 Cell/uL F 0.0-1100.0 Basophils [#/volume] in Blood by Automated count 2023-01-30 23:41:36 68 Cell/uL F 0.0-400.0 Lymphocytes [#/volume] in Blood by Automated count 2023-01-30 23:41:36 1540 Cell/uL F 620.0-3660.0 Eosinophils [#/volume] in Blood by Automated count 2023-01-30 23:41:36 494 Cell/uL F 0.0-700.0 Basophils/100 leukocytes in Blood by Automated count 2022-12-26 17:59:39 0.3 % F Neutrophils/100 leukocytes in Blood by Automated count 2022-12-26 17:59:39 59 % F Lymphocytes/100 leukocytes in Blood by Automated count 2022-12-26 17:59:39 22.5 % F Monocytes/100 leukocytes in Blood by Automated count 2022-12-26 17:59:39 13.7 % F Eosinophils/100 leukocytes in Blood by Automated count 2022-12-26 17:59:39 4.5 % F Leukocytes [#/volume] in Blood by Automated count 2022-12-26 17:59:39 7.5 x 10^3 cells/uL F 4.0-11.0 Neutrophils [#/volume] in Blood by Automated count 2022-12-26 17:59:39 4401 Cell/uL F 2000.0-8800.0 Monocytes [#/volume] in Blood by Automated count 2022-12-26 17:59:39 1022 Cell/uL F 0.0-1100.0 Basophils [#/volume] in Blood by Automated count 2022-12-26 17:59:39 22 Cell/uL F 0.0-400.0 Lymphocytes [#/volume] in Blood by Automated count 2022-12-26 17:59:39 1678 Cell/uL F 620.0-3660.0 Eosinophils [#/volume] in Blood by Automated count 2022-12-26 17:59:39 336 Cell/uL F 0.0-700.0 Neutrophils/100 leukocytes in Blood by Automated count 2022-11-05 16:53:55 86.8 % F Monocytes/100 leukocytes in Blood by Automated count 2022-11-05 16:53:55 4 % F Basophils/100 leukocytes in Blood by Automated count 2022-11-05 16:53:53 0.1 % F Eosinophils/100 leukocytes in Blood by Automated count 2022-11-05 16:53:53 1.8 % F Lymphocytes/100 leukocytes in Blood by Automated count 2022-11-05 16:53:53 7.3 % F Leukocytes [#/volume] in Blood by Automated count 2022-11-05 16:53:53 15.7 x 10^3 cells/uL F 4.0-11.0 Neutrophils [#/volume] in Blood by Automated count 2022-11-05 16:53:53 06816 Cell/uL F 2000.0-8800.0 Monocytes [#/volume] in Blood by Automated count 2022-11-05 16:53:53 629 Cell/uL F 0.0-1100.0 Basophils [#/volume] in Blood by Automated count 2022-11-05 16:53:53 16 Cell/uL F 0.0-400.0 Lymphocytes [#/volume] in Blood by Automated count 2022-11-05 16:53:53 1148 Cell/uL F 620.0-3660.0 Eosinophils [#/volume] in Blood by Automated count 2022-11-05 16:53:53 283 Cell/uL F 0.0-700.0 Basophils/100 leukocytes in Blood by Automated count 2022-09-30 13:01:37 0.3 % F Neutrophils/100 leukocytes in Blood by Automated count 2022-09-30 13:01:37 69 % F Lymphocytes/100 leukocytes in Blood by Automated count 2022-09-30 13:01:37 16.9 % F Eosinophils/100 leukocytes in Blood by Automated count 2022-09-30 13:01:37 5.6 % F Monocytes/100 leukocytes in Blood by Automated count 2022-09-30 13:01:37 8.2 % F Leukocytes [#/volume] in Blood by Automated count 2022-09-30 13:01:37 7.3 x 10^3 cells/uL F 4.0-11.0 Neutrophils [#/volume] in Blood by Automated count 2022-09-30 13:01:37 5065 Cell/uL F 2000.0-8800.0 Lymphocytes [#/volume] in Blood by Automated count 2022-09-30 13:01:37 1240 Cell/uL F 620.0-3660.0 Monocytes [#/volume] in Blood by Automated count 2022-09-30 13:01:37 602 Cell/uL F 0.0-1100.0 Basophils [#/volume] in Blood by Automated count 2022-09-30 13:01:37 22 Cell/uL F 0.0-400.0 Eosinophils [#/volume] in Blood by Automated count 2022-09-30 13:01:37 411 Cell/uL F 0.0-700.0 Basophils/100 leukocytes in Blood by Automated count 2022-09-05 18:50:18 0.7 % F Neutrophils/100 leukocytes in Blood by Automated count 2022-09-05 18:50:18 78.6 % F Monocytes/100 leukocytes in Blood by Automated count 2022-09-05 18:50:18 5.9 % F Eosinophils/100 leukocytes in Blood by Automated count 2022-09-05 18:50:18 5.5 % F Leukocytes [#/volume] in Blood by Automated count 2022-09-05 18:50:18 9.5 x 10^3 cells/uL F 4.0-11.0 Eosinophils [#/volume] in Blood by Automated count 2022-09-05 18:50:18 522 Cell/uL F 0.0-700.0 Lymphocytes/100 leukocytes in Blood by Automated count 2022-09-05 18:50:17 9.4 % F Neutrophils [#/volume] in Blood by Automated count 2022-09-05 18:50:17 7467 Cell/uL F 2000.0-8800.0 Lymphocytes [#/volume] in Blood by Automated count 2022-09-05 18:50:17 893 Cell/uL F 620.0-3660.0 Monocytes [#/volume] in Blood by Automated count 2022-09-05 18:50:17 560 Cell/uL F 0.0-1100.0 Basophils [#/volume] in Blood by Automated count 2022-09-05 18:50:17 66 Cell/uL F 0.0-400.0 Basophils/100 leukocytes in Blood by Automated count 2022-08-02 01:00:14 0.4 % F Neutrophils/100 leukocytes in Blood by Automated count 2022-08-02 01:00:14 77.4 % F Lymphocytes/100 leukocytes in Blood by Automated count 2022-08-02 01:00:14 12.8 % F Monocytes/100 leukocytes in Blood by Automated count 2022-08-02 01:00:14 6.1 % F Eosinophils/100 leukocytes in Blood by Automated count 2022-08-02 01:00:14 3.3 % F Leukocytes [#/volume] in Blood by Automated count 2022-08-02 01:00:14 9 x 10^3 cells/uL F 4.0-11.0 Neutrophils [#/volume] in Blood by Automated count 2022-08-02 01:00:14 6935.04 Cell/uL F 2000.0-8800.0 Lymphocytes [#/volume] in Blood by Automated count 2022-08-02 01:00:14 1146.88 Cell/uL F 620.0-3660.0 Monocytes [#/volume] in Blood by Automated count 2022-08-02 01:00:14 546.56 Cell/uL F 0.0-1100.0 Eosinophils [#/volume] in Blood by Automated count 2022-08-02 01:00:14 295.68 Cell/uL F 0.0-700.0 Basophils [#/volume] in Blood by Automated count 2022-08-02 01:00:14 35.84 Cell/uL F 0.0-400.0 Basophils/100 leukocytes in Blood by Automated count 2022-07-10 03:45:14 0.5 % F Neutrophils/100 leukocytes in Blood by Automated count 2022-07-10 03:45:14 80.6 % F Lymphocytes/100 leukocytes in Blood by Automated count 2022-07-10 03:45:14 11.3 % F Monocytes/100 leukocytes in Blood by Automated count 2022-07-10 03:45:14 5.4 % F Eosinophils/100 leukocytes in Blood by Automated count 2022-07-10 03:45:14 2.2 % F Leukocytes [#/volume] in Blood by Automated count 2022-07-10 03:45:14 10.6 x 10^3 cells/uL F 4.5-11.0 Neutrophils [#/volume] in Blood by Automated count 2022-07-10 03:45:14 8559.72 Cell/uL F 2000.0-8800.0 Lymphocytes [#/volume] in Blood by Automated count 2022-07-10 03:45:14 1200.06 Cell/uL F 1100.0-4800.0 Monocytes [#/volume] in Blood by Automated count 2022-07-10 03:45:14 573.48 Cell/uL F 0.0-1100.0 Eosinophils [#/volume] in Blood by Automated count 2022-07-10 03:45:14 233.64 Cell/uL F 0.0-700.0 Basophils [#/volume] in Blood by Automated count 2022-07-10 03:45:14 53.1 Cell/uL F 0.0-400.0 Basophils/100 leukocytes in Blood by Automated count 2022-05-30 03:04:16 0.6 % F Neutrophils/100 leukocytes in Blood by Automated count 2022-05-30 03:04:16 71.6 % F Lymphocytes/100 leukocytes in Blood by Automated count 2022-05-30 03:04:16 14.7 % F Monocytes/100 leukocytes in Blood by Automated count 2022-05-30 03:04:16 7.7 % F Eosinophils/100 leukocytes in Blood by Automated count 2022-05-30 03:04:16 5.3 % F Leukocytes [#/volume] in Blood by Automated count 2022-05-30 03:04:16 9.6 x 10^3 cells/uL F 4.5-11.0 Neutrophils [#/volume] in Blood by Automated count 2022-05-30 03:04:16 6866.44 Cell/uL F 2000.0-8800.0 Lymphocytes [#/volume] in Blood by Automated count 2022-05-30 03:04:16 1409.73 Cell/uL F 1100.0-4800.0 Monocytes [#/volume] in Blood by Automated count 2022-05-30 03:04:16 738.43 Cell/uL F 0.0-1100.0 Basophils [#/volume] in Blood by Automated count 2022-05-30 03:04:16 57.54 Cell/uL F 0.0-400.0 Eosinophils [#/volume] in Blood by Automated count 2022-05-30 03:04:16 508.27 Cell/uL F 0.0-700.0 Basophils/100 leukocytes in Blood by Automated count 2022-05-13 02:25:13 1.7 % F Lymphocytes/100 leukocytes in Blood by Automated count 2022-05-13 02:25:13 16.1 % F Neutrophils/100 leukocytes in Blood by Automated count 2022-05-13 02:25:13 66.4 % F Monocytes/100 leukocytes in Blood by Automated count 2022-05-13 02:25:13 7.3 % F Eosinophils/100 leukocytes in Blood by Automated count 2022-05-13 02:25:13 8.6 % F Leukocytes [#/volume] in Blood by Automated count 2022-05-13 02:25:13 5.2 x 10^3 cells/uL F 4.5-11.0 Neutrophils [#/volume] in Blood by Automated count 2022-05-13 02:25:13 3419.6 Cell/uL F 2000.0-8800.0 Lymphocytes [#/volume] in Blood by Automated count 2022-05-13 02:25:13 829.15 Cell/uL F 1100.0-4800.0 Monocytes [#/volume] in Blood by Automated count 2022-05-13 02:25:13 375.95 Cell/uL F 0.0-1100.0 Basophils [#/volume] in Blood by Automated count 2022-05-13 02:25:13 87.55 Cell/uL F 0.0-400.0 Eosinophils [#/volume] in Blood by Automated count 2022-05-13 02:25:13 442.9 Cell/uL F 0.0-700.0 Basophils/100 leukocytes in Blood by Automated count 2022-04-01 21:14:34 0.4 % F Neutrophils/100 leukocytes in Blood by Automated count 2022-04-01 21:14:34 78.3 % F Monocytes/100 leukocytes in Blood by Automated count 2022-04-01 21:14:34 7.3 % F Eosinophils/100 leukocytes in Blood by Automated count 2022-04-01 21:14:34 4.1 % F Lymphocytes/100 leukocytes in Blood by Automated count 2022-04-01 21:14:34 9.9 % F Leukocytes [#/volume] in Blood by Automated count 2022-04-01 21:14:34 11.6 x 10^3 cells/uL F 4.5-11.0 Neutrophils [#/volume] in Blood by Automated count 2022-04-01 21:14:34 9121.95 Cell/uL F 2000.0-8800.0 Monocytes [#/volume] in Blood by Automated count 2022-04-01 21:14:34 850.45 Cell/uL F 0.0-1100.0 Lymphocytes [#/volume] in Blood by Automated count 2022-04-01 21:14:34 1153.35 Cell/uL F 1100.0-4800.0 Basophils [#/volume] in Blood by Automated count 2022-04-01 21:14:34 46.6 Cell/uL F 0.0-400.0 Eosinophils [#/volume] in Blood by Automated count 2022-04-01 21:14:34 477.65 Cell/uL F 0.0-700.0 Basophils/100 leukocytes in Blood by Automated count 2022-03-05 19:16:52 0.6 % F Neutrophils/100 leukocytes in Blood by Automated count 2022-03-05 19:16:52 71.7 % F Monocytes/100 leukocytes in Blood by Automated count 2022-03-05 19:16:52 6.8 % F Eosinophils/100 leukocytes in Blood by Automated count 2022-03-05 19:16:52 6.3 % F Lymphocytes/100 leukocytes in Blood by Automated count 2022-03-05 19:16:52 14.6 % F Leukocytes [#/volume] in Blood by Automated count 2022-03-05 19:16:52 8.1 x 10^3 cells/uL F 4.5-11.0 Neutrophils [#/volume] in Blood by Automated count 2022-03-05 19:16:52 5800.53 Cell/uL F 2000.0-8800.0 Lymphocytes [#/volume] in Blood by Automated count 2022-03-05 19:16:52 1181.14 Cell/uL F 1100.0-4800.0 Monocytes [#/volume] in Blood by Automated count 2022-03-05 19:16:52 550.12 Cell/uL F 0.0-1100.0 Basophils [#/volume] in Blood by Automated count 2022-03-05 19:16:52 48.54 Cell/uL F 0.0-400.0 Eosinophils [#/volume] in Blood by Automated count 2022-03-05 19:16:52 509.67 Cell/uL F 0.0-700.0 Basophils/100 leukocytes in Blood by Automated count 2022-01-29 00:10:48 0.7 % F Neutrophils/100 leukocytes in Blood by Automated count 2022-01-29 00:10:48 74.5 % F Lymphocytes/100 leukocytes in Blood by Automated count 2022-01-29 00:10:48 13.3 % F Monocytes/100 leukocytes in Blood by Automated count 2022-01-29 00:10:48 7.2 % F Eosinophils/100 leukocytes in Blood by Automated count 2022-01-29 00:10:48 4.3 % F Leukocytes [#/volume] in Blood by Automated count 2022-01-29 00:10:48 8.8 x 10^3 cells/uL F 4.5-11.0 Neutrophils [#/volume] in Blood by Automated count 2022-01-29 00:10:48 6570.9 Cell/uL F 2000.0-8800.0 Lymphocytes [#/volume] in Blood by Automated count 2022-01-29 00:10:48 1173.06 Cell/uL F 1100.0-4800.0 Monocytes [#/volume] in Blood by Automated count 2022-01-29 00:10:48 635.04 Cell/uL F 0.0-1100.0 Basophils [#/volume] in Blood by Automated count 2022-01-29 00:10:48 61.74 Cell/uL F 0.0-400.0 Eosinophils [#/volume] in Blood by Automated count 2022-01-29 00:10:48 379.26 Cell/uL F 0.0-700.0 MineralBone Disorder Description Draw Date Result/Unit Status Ref Range Result Comments CA CORRECTED 2024-01-28 07:44:48 8.3 mg/dL F CA/PHOS PRODUCT 2024-01-28 07:43:53 54.1 Calc F 21.0-53.0 CA*PO4 CORRCTD 2024-01-28 07:43:53 54.6 Calc F 21.0-53.0 Calcium [Mass/volume] in Serum or Plasma 2024-01-28 07:21:23 8.2 mg/dL F 8.7-10.4 Parathyrin.intact [Mass/volume] in Serum or Plasma 2024-01-27 17:36:22 997 pg/mL F 18.0-80.0 Alkaline phosphatase [Enzymatic activity/volume] in Serum or Plasma 2024-01-27 16:44:27 154 U/L F 46.0-116.0 Phosphate [Mass/volume] in Serum or Plasma 2024-01-27 16:44:27 6.6 mg/dL F 2.4-5.1 Magnesium [Mass/volume] in Serum or Plasma 2024-01-27 16:44:27 1.7 mg/dL F 1.3-2.7 CA/PHOS PRODUCT 2024-01-01 21:59:48 46.9 Calc F 21.0-53.0 CA*PO4 CORRCTD 2024-01-01 21:59:48 49.1 Calc F 21.0-53.0 CA CORRECTED 2024-01-01 18:49:04 7.1 mg/dL F Calcium [Mass/volume] in Serum or Plasma 2024-01-01 18:46:29 6.8 mg/dL F 8.7-10.4 Parathyrin.intact [Mass/volume] in Serum or Plasma 2024-01-01 15:14:21 558 pg/mL F 18.0-80.0 Alkaline phosphatase [Enzymatic activity/volume] in Serum or Plasma 2024-01-01 14:44:17 150 U/L F 46.0-116.0 Phosphate [Mass/volume] in Serum or Plasma 2024-01-01 14:44:17 6.9 mg/dL F 2.4-5.1 Magnesium [Mass/volume] in Serum or Plasma 2024-01-01 14:44:17 1.4 mg/dL F 1.3-2.7 25-Hydroxyvitamin D3+25-Hydroxyvitamin D2 [Mass/volume] in Serum or Plasma 2023-12-09 07:32:14 52 ng/mL F Parathyrin.intact [Mass/volume] in Serum or Plasma 2023-12-08 15:38:19 979 pg/mL F 18.0-80.0 CA CORRECTED 2023-12-08 06:36:37 7.9 mg/dL F CA/PHOS PRODUCT 2023-12-08 06:31:30 60 Calc F 21.0-53.0 CA*PO4 CORRCTD 2023-12-08 06:31:30 62.4 Calc F 21.0-53.0 Calcium [Mass/volume] in Serum or Plasma 2023-12-08 06:29:47 7.6 mg/dL F 8.7-10.4 Phosphate [Mass/volume] in Serum or Plasma 2023-12-07 15:23:27 7.9 mg/dL F 2.4-5.1 Magnesium [Mass/volume] in Serum or Plasma 2023-12-07 15:23:27 1.5 mg/dL F 1.3-2.7 Alkaline phosphatase [Enzymatic activity/volume] in Serum or Plasma 2023-12-07 15:23:27 190 U/L F 46.0-116.0 CA CORRECTED 2023-11-03 06:40:34 7.4 mg/dL F CA/PHOS PRODUCT 2023-11-03 06:10:34 58.7 Calc F 21.0-53.0 CA*PO4 CORRCTD 2023-11-03 06:10:34 62.9 Calc F 21.0-53.0 Calcium [Mass/volume] in Serum or Plasma 2023-11-03 06:02:44 6.9 mg/dL F 8.7-10.4 Parathyrin.intact [Mass/volume] in Serum or Plasma 2023-11-02 18:46:24 1034 pg/mL F 18.0-80.0 Alkaline phosphatase [Enzymatic activity/volume] in Serum or Plasma 2023-11-02 18:31:14 348 U/L F 46.0-116.0 Phosphate [Mass/volume] in Serum or Plasma 2023-11-02 18:31:14 8.5 mg/dL F 2.4-5.1 Magnesium [Mass/volume] in Serum or Plasma 2023-11-02 18:31:14 1.4 mg/dL F 1.3-2.7 CA CORRECTED 2023-10-15 18:43:07 8.1 mg/dL F CA/PHOS PRODUCT 2023-10-15 18:25:24 67.2 Calc F 21.0-53.0 CA*PO4 CORRCTD 2023-10-15 18:25:24 68.9 Calc F 21.0-53.0 Calcium [Mass/volume] in Serum or Plasma 2023-10-15 18:25:04 7.9 mg/dL F 8.7-10.4 Parathyrin.intact [Mass/volume] in Serum or Plasma 2023-10-15 15:17:27 599 pg/mL F 18.0-80.0 Alkaline phosphatase [Enzymatic activity/volume] in Serum or Plasma 2023-10-15 14:40:34 149 U/L F 46.0-116.0 Phosphate [Mass/volume] in Serum or Plasma 2023-10-15 14:40:34 8.5 mg/dL F 2.4-5.1 Magnesium [Mass/volume] in Serum or Plasma 2023-10-15 14:40:34 1.5 mg/dL F 1.3-2.7 CA CORRECTED 2023-09-01 07:26:23 8.1 mg/dL F CA/PHOS PRODUCT 2023-09-01 07:14:35 59.3 Calc F 21.0-53.0 CA*PO4 CORRCTD 2023-09-01 07:14:35 60.8 Calc F 21.0-53.0 Calcium [Mass/volume] in Serum or Plasma 2023-09-01 07:10:20 7.9 mg/dL F 8.7-10.4 Alkaline phosphatase [Enzymatic activity/volume] in Serum or Plasma 2023-09-01 05:47:38 326 U/L F 46.0-116.0 Phosphate [Mass/volume] in Serum or Plasma 2023-09-01 05:47:38 7.5 mg/dL F 2.4-5.1 Magnesium [Mass/volume] in Serum or Plasma 2023-09-01 05:47:38 1.6 mg/dL F 1.3-2.7 25-Hydroxyvitamin D3+25-Hydroxyvitamin D2 [Mass/volume] in Serum or Plasma 2023-09-01 04:57:41 39.1 ng/mL F Parathyrin.intact [Mass/volume] in Serum or Plasma 2023-08-31 20:27:27 849 pg/mL F 18.0-80.0 CA CORRECTED 2023-07-31 08:58:14 8.1 mg/dL F CA/PHOS PRODUCT 2023-07-31 07:30:10 46.4 Calc F 21.0-53.0 CA*PO4 CORRCTD 2023-07-31 07:30:10 47 Calc F 21.0-53.0 Calcium [Mass/volume] in Serum or Plasma 2023-07-31 07:05:52 8 mg/dL F 8.7-10.4 Alkaline phosphatase [Enzymatic activity/volume] in Serum or Plasma 2023-07-31 05:41:36 281 U/L F 46.0-116.0 Phosphate [Mass/volume] in Serum or Plasma 2023-07-31 05:41:36 5.8 mg/dL F 2.4-5.1 Magnesium [Mass/volume] in Serum or Plasma 2023-07-31 05:41:36 1.8 mg/dL F 1.3-2.7 Parathyrin.intact [Mass/volume] in Serum or Plasma 2023-07-31 03:39:25 566 pg/mL F 18.0-80.0 CA CORRECTED 2023-06-30 07:06:59 7.9 mg/dL F Parathyrin.intact [Mass/volume] in Serum or Plasma 2023-06-30 06:55:26 950 pg/mL F 18.0-80.0 CA/PHOS PRODUCT 2023-06-30 06:49:18 63.1 Calc F 21.0-53.0 CA*PO4 CORRCTD 2023-06-30 06:49:18 64.8 Calc F 21.0-53.0 Calcium [Mass/volume] in Serum or Plasma 2023-06-30 06:43:22 7.7 mg/dL F 8.7-10.4 Alkaline phosphatase [Enzymatic activity/volume] in Serum or Plasma 2023-06-29 23:06:40 225 U/L F 46.0-116.0 Phosphate [Mass/volume] in Serum or Plasma 2023-06-29 23:06:40 8.2 mg/dL F 2.4-5.1 Magnesium [Mass/volume] in Serum or Plasma 2023-06-29 23:06:40 1.6 mg/dL F 1.3-2.7 CA CORRECTED 2023-06-02 07:47:31 8 mg/dL F CA/PHOS PRODUCT 2023-06-02 07:41:36 60.1 Calc F 21.0-53.0 CA*PO4 CORRCTD 2023-06-02 07:41:36 61.6 Calc F 21.0-53.0 Calcium [Mass/volume] in Serum or Plasma 2023-06-02 07:35:22 7.8 mg/dL F 8.7-10.4 Parathyrin.intact [Mass/volume] in Serum or Plasma 2023-06-02 07:08:05 1030 pg/mL F 18.0-80.0 25-Hydroxyvitamin D3+25-Hydroxyvitamin D2 [Mass/volume] in Serum or Plasma 2023-06-02 04:20:29 25.3 ng/mL F Alkaline phosphatase [Enzymatic activity/volume] in Serum or Plasma 2023-06-02 03:13:32 255 U/L F 46.0-116.0 Phosphate [Mass/volume] in Serum or Plasma 2023-06-02 03:13:32 7.7 mg/dL F 2.4-5.1 Magnesium [Mass/volume] in Serum or Plasma 2023-06-02 03:13:32 1.9 mg/dL F 1.3-2.7 Parathyrin.intact [Mass/volume] in Serum or Plasma 2023-05-07 05:43:17 F RECOLLECT - OUTDATED SPECIMEN CA CORRECTED 2023-05-02 07:46:24 7.2 mg/dL F CA/PHOS PRODUCT 2023-05-02 07:07:05 60.2 Calc F 21.0-53.0 CA*PO4 CORRCTD 2023-05-02 07:07:05 61.9 Calc F 21.0-53.0 Calcium [Mass/volume] in Serum or Plasma 2023-05-02 06:57:54 7 mg/dL F 8.7-10.4 Alkaline phosphatase [Enzymatic activity/volume] in Serum or Plasma 2023-05-02 04:53:52 183 U/L F 46.0-116.0 Phosphate [Mass/volume] in Serum or Plasma 2023-05-02 04:53:52 8.6 mg/dL F 2.4-5.1 Magnesium [Mass/volume] in Serum or Plasma 2023-05-02 04:53:52 1.6 mg/dL F 1.3-2.7 Parathyrin.intact [Mass/volume] in Serum or Plasma 2023-04-01 07:59:09 1109 pg/mL F 18.0-80.0 CA CORRECTED 2023-04-01 05:08:56 7.7 mg/dL F CA/PHOS PRODUCT 2023-04-01 05:00:03 63.9 Calc F 21.0-53.0 CA*PO4 CORRCTD 2023-04-01 05:00:03 63.9 Calc F 21.0-53.0 Calcium [Mass/volume] in Serum or Plasma 2023-04-01 04:55:55 7.7 mg/dL F 8.7-10.4 Phosphate [Mass/volume] in Serum or Plasma 2023-03-31 20:43:18 8.3 mg/dL F 2.4-5.1 Magnesium [Mass/volume] in Serum or Plasma 2023-03-31 20:43:14 1.6 mg/dL F 1.3-2.7 Alkaline phosphatase [Enzymatic activity/volume] in Serum or Plasma 2023-03-31 20:43:12 216 U/L F 46.0-116.0 Parathyrin.intact [Mass/volume] in Serum or Plasma 2023-03-07 07:25:22 860 pg/mL F 18.0-80.0 25-Hydroxyvitamin D3+25-Hydroxyvitamin D2 [Mass/volume] in Serum or Plasma 2023-03-07 07:24:52 21.8 ng/mL F CA CORRECTED 2023-03-06 19:50:19 8.4 mg/dL F CA/PHOS PRODUCT 2023-03-06 19:48:50 63 Calc F 21.0-53.0 CA*PO4 CORRCTD 2023-03-06 19:48:50 63 Calc F 21.0-53.0 Calcium [Mass/volume] in Serum or Plasma 2023-03-06 19:48:11 8.4 mg/dL F 8.7-10.4 Phosphate [Mass/volume] in Serum or Plasma 2023-03-06 15:21:16 7.5 mg/dL F 2.4-5.1 Alkaline phosphatase [Enzymatic activity/volume] in Serum or Plasma 2023-03-06 15:21:14 159 U/L F 46.0-116.0 Magnesium [Mass/volume] in Serum or Plasma 2023-03-06 15:21:14 1.5 mg/dL F 1.3-2.7 CA CORRECTED 2023-02-01 21:10:54 7.9 mg/dL F CA/PHOS PRODUCT 2023-02-01 21:03:33 68.5 Calc F 21.0-53.0 CA*PO4 CORRCTD 2023-02-01 21:03:33 70.3 Calc F 21.0-53.0 Calcium [Mass/volume] in Serum or Plasma 2023-02-01 21:02:48 7.7 mg/dL F 8.7-10.4 Alkaline phosphatase [Enzymatic activity/volume] in Serum or Plasma 2023-02-01 18:03:26 104 U/L F 46.0-116.0 Phosphate [Mass/volume] in Serum or Plasma 2023-02-01 18:03:26 8.9 mg/dL F 2.4-5.1 Magnesium [Mass/volume] in Serum or Plasma 2023-02-01 18:03:26 1.8 mg/dL F 1.3-2.7 Parathyrin.intact [Mass/volume] in Serum or Plasma 2023-01-31 01:50:38 992 pg/mL F 18.0-80.0 CA/PHOS PRODUCT 2022-12-27 06:25:35 75.9 Calc F 21.0-53.0 CA*PO4 CORRCTD 2022-12-27 06:25:35 80.1 Calc F 21.0-53.0 Calcium [Mass/volume] in Serum or Plasma 2022-12-27 06:19:56 7.3 mg/dL F 8.7-10.4 CA CORRECTED 2022-12-27 05:35:21 7.7 mg/dL F Parathyrin.intact [Mass/volume] in Serum or Plasma 2022-12-27 02:37:09 898 pg/mL F 18.0-80.0 Alkaline phosphatase [Enzymatic activity/volume] in Serum or Plasma 2022-12-26 22:22:31 98 U/L F 46.0-116.0 Phosphate [Mass/volume] in Serum or Plasma 2022-12-26 22:22:31 10.4 mg/dL F 2.4-5.1 Magnesium [Mass/volume] in Serum or Plasma 2022-12-26 22:22:31 1.9 mg/dL F 1.3-2.7 CA CORRECTED 2022-11-06 07:55:03 8.7 mg/dL F CA/PHOS PRODUCT 2022-11-06 07:22:57 60.6 Calc F 21.0-53.0 CA*PO4 CORRCTD 2022-11-06 07:22:57 63.5 Calc F 21.0-53.0 Parathyrin.intact [Mass/volume] in Serum or Plasma 2022-11-06 07:13:37 629 pg/mL F 18.0-80.0 Calcium [Mass/volume] in Serum or Plasma 2022-11-06 06:55:44 8.3 mg/dL F 8.7-10.4 Alkaline phosphatase [Enzymatic activity/volume] in Serum or Plasma 2022-11-06 04:06:32 74 U/L F 46.0-116.0 Phosphate [Mass/volume] in Serum or Plasma 2022-11-06 04:06:32 7.3 mg/dL F 2.4-5.1 Magnesium [Mass/volume] in Serum or Plasma 2022-11-06 04:06:32 1.8 mg/dL F 1.3-2.7 CA CORRECTED 2022-10-01 05:57:53 8.2 mg/dL F CA/PHOS PRODUCT 2022-10-01 05:34:45 57 Calc F 21.0-53.0 CA*PO4 CORRCTD 2022-10-01 05:34:45 62.3 Calc F 21.0-53.0 Calcium [Mass/volume] in Serum or Plasma 2022-10-01 05:26:11 7.5 mg/dL F 8.7-10.4 Alkaline phosphatase [Enzymatic activity/volume] in Serum or Plasma 2022-09-30 21:12:35 64 U/L F 46.0-116.0 Phosphate [Mass/volume] in Serum or Plasma 2022-09-30 21:12:35 7.6 mg/dL F 2.4-5.1 Magnesium [Mass/volume] in Serum or Plasma 2022-09-30 21:12:35 1.7 mg/dL F 1.3-2.7 Parathyrin.intact [Mass/volume] in Serum or Plasma 2022-09-30 14:23:34 671 pg/mL F 18.0-80.0 CA CORRECTED 2022-09-06 05:39:12 F Unable to Calcul ate CA/PHOS PRODUCT 2022-09-06 05:37:02 60.8 Calc F 21.0-53.0 CA*PO4 CORRCTD 2022-09-06 05:37:02 60.8 Calc F 21.0-53.0 Calcium [Mass/volume] in Serum or Plasma 2022-09-06 05:34:36 7.6 mg/dL F 8.7-10.4 Parathyrin.intact [Mass/volume] in Serum or Plasma 2022-09-05 19:51:09 794 pg/mL F 18.0-80.0 Phosphate [Mass/volume] in Serum or Plasma 2022-09-05 19:06:17 8 mg/dL F 2.4-5.1 25-Hydroxyvitamin D3+25-Hydroxyvitamin D2 [Mass/volume] in Serum or Plasma 2022-09-05 14:37:16 36.9 ng/mL F Parathyrin.intact [Mass/volume] in Serum or Plasma 2022-08-01 15:41:08 917 pg/mL F 18.0-80.0 25-Hydroxyvitamin D3+25-Hydroxyvitamin D2 [Mass/volume] in Serum or Plasma 2022-08-01 15:07:13 30.1 ng/mL F CA CORRECTED 2022-07-10 03:35:02 8.1 mg/dL F CA/PHOS PRODUCT 2022-07-10 03:24:07 102.1 Calc F 21.0-53.0 CA*PO4 CORRCTD 2022-07-10 03:24:07 102.1 Calc F 21.0-53.0 Calcium [Mass/volume] in Serum or Plasma 2022-07-10 03:20:07 8.1 mg/dL F 8.7-10.4 Parathyrin.intact [Mass/volume] in Serum or Plasma 2022-07-09 20:22:27 971 pg/mL F 18.0-80.0 Alkaline phosphatase [Enzymatic activity/volume] in Serum or Plasma 2022-07-09 18:46:18 87 U/L F 46.0-116.0 Phosphate [Mass/volume] in Serum or Plasma 2022-07-09 18:46:18 12.6 mg/dL F 2.4-5.1 Magnesium [Mass/volume] in Serum or Plasma 2022-07-09 18:46:18 1.8 mg/dL F 1.3-2.7 CA CORRECTED 2022-05-30 06:57:01 8.5 mg/dL F CA/PHOS PRODUCT 2022-05-30 06:40:44 84.2 Calc F 21.0-53.0 CA*PO4 CORRCTD 2022-05-30 06:40:44 84.2 Calc F 21.0-53.0 Calcium [Mass/volume] in Serum or Plasma 2022-05-30 06:20:43 8.5 mg/dL F 8.7-10.4 Parathyrin.intact [Mass/volume] in Serum or Plasma 2022-05-30 05:40:15 657 pg/mL F 18.0-80.0 25-Hydroxyvitamin D3+25-Hydroxyvitamin D2 [Mass/volume] in Serum or Plasma 2022-05-29 20:36:29 28 ng/mL F 30.0-100.0 Alkaline phosphatase [Enzymatic activity/volume] in Serum or Plasma 2022-05-29 20:29:28 85 U/L F 46.0-116.0 Phosphate [Mass/volume] in Serum or Plasma 2022-05-29 20:29:28 9.9 mg/dL F 2.4-5.1 Magnesium [Mass/volume] in Serum or Plasma 2022-05-29 20:29:28 1.8 mg/dL F 1.3-2.7 CA CORRECTED 2022-05-13 05:57:59 9 mg/dL F CA/PHOS PRODUCT 2022-05-13 05:52:10 81 Calc F 21.0-53.0 CA*PO4 CORRCTD 2022-05-13 05:52:10 81 Calc F 21.0-53.0 Calcium [Mass/volume] in Serum or Plasma 2022-05-13 04:30:35 9 mg/dL F 8.7-10.4 Parathyrin.intact [Mass/volume] in Serum or Plasma 2022-05-13 03:03:16 550 pg/mL F 18.0-80.0 Alkaline phosphatase [Enzymatic activity/volume] in Serum or Plasma 2022-05-12 23:56:17 82 U/L F 46.0-116.0 Phosphate [Mass/volume] in Serum or Plasma 2022-05-12 23:56:17 9 mg/dL F 2.4-5.1 Magnesium [Mass/volume] in Serum or Plasma 2022-05-12 23:56:17 1.7 mg/dL F 1.3-2.7 CA CORRECTED 2022-04-02 00:41:07 8.2 mg/dL F CA/PHOS PRODUCT 2022-04-01 22:57:54 94.3 Calc F 21.0-53.0 CA*PO4 CORRCTD 2022-04-01 22:57:54 94.3 Calc F 21.0-53.0 Calcium [Mass/volume] in Serum or Plasma 2022-04-01 22:44:31 8.2 mg/dL F 8.7-10.4 Alkaline phosphatase [Enzymatic activity/volume] in Serum or Plasma 2022-04-01 20:19:58 99 U/L F 46.0-116.0 Phosphate [Mass/volume] in Serum or Plasma 2022-04-01 20:19:58 11.5 mg/dL F 2.4-5.1 Magnesium [Mass/volume] in Serum or Plasma 2022-04-01 20:19:58 1.8 mg/dL F 1.3-2.7 Parathyrin.intact [Mass/volume] in Serum or Plasma 2022-04-01 19:17:55 692 pg/mL F 18.0-80.0 CA CORRECTED 2022-03-06 08:18:29 6.9 mg/dL F CA/PHOS PRODUCT 2022-03-06 05:18:04 79.6 Calc F 21.0-53.0 CA*PO4 CORRCTD 2022-03-06 05:18:04 80.7 Calc F 21.0-53.0 Calcium [Mass/volume] in Serum or Plasma 2022-03-06 05:02:10 6.8 mg/dL F 8.7-10.4 25-Hydroxyvitamin D3+25-Hydroxyvitamin D2 [Mass/volume] in Serum or Plasma 2022-03-06 02:06:56 23.5 ng/mL F 30.0-100.0 Alkaline phosphatase [Enzymatic activity/volume] in Serum or Plasma 2022-03-06 00:57:46 80 U/L F 46.0-116.0 Phosphate [Mass/volume] in Serum or Plasma 2022-03-06 00:57:46 11.7 mg/dL F 2.4-5.1 Magnesium [Mass/volume] in Serum or Plasma 2022-03-06 00:57:46 1.7 mg/dL F 1.3-2.7 Parathyrin.intact [Mass/volume] in Serum or Plasma 2022-03-06 00:51:01 622 pg/mL F 18.0-80.0 CA CORRECTED 2022-01-29 08:27:53 7.4 mg/dL F CA/PHOS PRODUCT 2022-01-29 05:06:53 74.9 Calc F 21.0-53.0 CA*PO4 CORRCTD 2022-01-29 05:06:53 77 Calc F 21.0-53.0 Calcium [Mass/volume] in Serum or Plasma 2022-01-29 04:55:33 7.2 mg/dL F 8.7-10.4 Alkaline phosphatase [Enzymatic activity/volume] in Serum or Plasma 2022-01-28 23:46:37 82 U/L F 46.0-116.0 Phosphate [Mass/volume] in Serum or Plasma 2022-01-28 23:46:37 10.4 mg/dL F 2.4-5.1 Magnesium [Mass/volume] in Serum or Plasma 2022-01-28 23:46:37 1.6 mg/dL F 1.3-2.7 Parathyrin.intact [Mass/volume] in Serum or Plasma 2022-01-28 22:30:50 622 pg/mL F 18.0-80.0 Nutrition Description Draw Date Result/Unit Status Ref Range Result Comments Potassium [Moles/volume] in Serum or Plasma 2024-01-28 07:21:27 3.3 mEq/L F 3.5-5.5 A/G RATIO 2024-01-27 16:45:58 1.7 Calc F 1.0-2.5 GLOBULIN 2024-01-27 16:45:58 2.3 g/dL F 0.9-5.0 Albumin [Mass/volume] in Serum or Plasma by Bromocresol green (BCG) dye binding method 2024-01-27 16:44:27 3.9 g/dL F 3.4-4.8 Bicarbonate [Moles/volume] in Serum or Plasma 2024-01-27 16:44:27 26 mEq/L F 20.0-31.0 Lactate dehydrogenase [Enzymatic activity/volume] in Serum or Plasma 2024-01-27 16:44:27 300 U/L F 120.0-246.0 Protein [Mass/volume] in Serum or Plasma 2024-01-27 16:44:27 6.2 g/dL F 5.7-8.2 Potassium [Moles/volume] in Serum or Plasma 2024-01-01 18:46:29 3.7 mEq/L F 3.5-5.5 A/G RATIO 2024-01-01 14:44:56 1.6 Calc F 1.0-2.5 GLOBULIN 2024-01-01 14:44:56 2.2 g/dL F 0.9-5.0 Albumin [Mass/volume] in Serum or Plasma by Bromocresol green (BCG) dye binding method 2024-01-01 14:44:17 3.6 g/dL F 3.4-4.8 Lactate dehydrogenase [Enzymatic activity/volume] in Serum or Plasma 2024-01-01 14:44:17 286 U/L F 120.0-246.0 Bicarbonate [Moles/volume] in Serum or Plasma 2024-01-01 14:44:17 24 mEq/L F 20.0-31.0 Protein [Mass/volume] in Serum or Plasma 2024-01-01 14:44:17 5.8 g/dL F 5.7-8.2 Potassium [Moles/volume] in Serum or Plasma 2023-12-08 06:29:47 3.5 mEq/L F 3.5-5.5 A/G RATIO 2023-12-07 15:23:43 1.7 Calc F 1.0-2.5 GLOBULIN 2023-12-07 15:23:43 2.1 g/dL F 0.9-5.0 Lactate dehydrogenase [Enzymatic activity/volume] in Serum or Plasma 2023-12-07 15:23:27 294 U/L F 120.0-246.0 Protein [Mass/volume] in Serum or Plasma 2023-12-07 15:23:27 5.7 g/dL F 5.7-8.2 Albumin [Mass/volume] in Serum or Plasma by Bromocresol green (BCG) dye binding method 2023-12-07 15:23:27 3.6 g/dL F 3.4-4.8 Bicarbonate [Moles/volume] in Serum or Plasma 2023-12-07 15:23:27 27 mEq/L F 20.0-31.0 Potassium [Moles/volume] in Serum or Plasma 2023-11-03 06:02:33 4 mEq/L F 3.5-5.5 A/G RATIO 2023-11-02 18:31:19 1.8 Calc F 1.0-2.5 GLOBULIN 2023-11-02 18:31:19 1.9 g/dL F 0.9-5.0 Bicarbonate [Moles/volume] in Serum or Plasma 2023-11-02 18:31:14 25 mEq/L F 20.0-31.0 Albumin [Mass/volume] in Serum or Plasma by Bromocresol green (BCG) dye binding method 2023-11-02 18:31:14 3.4 g/dL F 3.4-4.8 Lactate dehydrogenase [Enzymatic activity/volume] in Serum or Plasma 2023-11-02 18:31:14 290 U/L F 120.0-246.0 Protein [Mass/volume] in Serum or Plasma 2023-11-02 18:31:14 5.3 g/dL F 5.7-8.2 Potassium [Moles/volume] in Serum or Plasma 2023-10-15 18:25:04 4.3 mEq/L F 3.5-5.5 A/G RATIO 2023-10-15 14:40:41 1.8 Calc F 1.0-2.5 GLOBULIN 2023-10-15 14:40:41 2.1 g/dL F 0.9-5.0 Albumin [Mass/volume] in Serum or Plasma by Bromocresol green (BCG) dye binding method 2023-10-15 14:40:34 3.7 g/dL F 3.4-4.8 Bicarbonate [Moles/volume] in Serum or Plasma 2023-10-15 14:40:34 21 mEq/L F 20.0-31.0 Lactate dehydrogenase [Enzymatic activity/volume] in Serum or Plasma 2023-10-15 14:40:34 250 U/L F 120.0-246.0 Protein [Mass/volume] in Serum or Plasma 2023-10-15 14:40:34 5.8 g/dL F 5.7-8.2 Potassium [Moles/volume] in Serum or Plasma 2023-09-01 07:10:20 3.4 mEq/L F 3.5-5.5 A/G RATIO 2023-09-01 05:48:12 1.7 Calc F 1.0-2.5 GLOBULIN 2023-09-01 05:48:12 2.2 g/dL F 0.9-5.0 LDL-CHOLESTEROL 2023-09-01 05:48:12 84 mg/dL F 0.0-99.0 VLDL-CHOL(CALC) 2023-09-01 05:48:12 26 mg/dL F 0.0-29.0 CHOL/HDL RATIO 2023-09-01 05:48:12 5.1 Calc F 3.3-5.0 Albumin [Mass/volume] in Serum or Plasma by Bromocresol green (BCG) dye binding method 2023-09-01 05:47:38 3.8 g/dL F 3.4-4.8 Cholesterol [Mass/volume] in Serum or Plasma 2023-09-01 05:47:38 137 mg/dL F 0.0-199.0 Bicarbonate [Moles/volume] in Serum or Plasma 2023-09-01 05:47:38 22 mEq/L F 20.0-31.0 Lactate dehydrogenase [Enzymatic activity/volume] in Serum or Plasma 2023-09-01 05:47:38 301 U/L F 120.0-246.0 Protein [Mass/volume] in Serum or Plasma 2023-09-01 05:47:38 6 g/dL F 5.7-8.2 Protein [Mass/volume] in Serum or Plasma 2023-09-01 05:47:38 132 mg/dL F 0.0-149.0 Cholesterol in HDL [Mass/volume] in Serum or Plasma 2023-09-01 05:47:38 27 mg/dL F 40.0-60.0 Potassium [Moles/volume] in Serum or Plasma 2023-07-31 07:05:52 3.7 mEq/L F 3.5-5.5 A/G RATIO 2023-07-31 05:42:08 1.6 Calc F 1.0-2.5 GLOBULIN 2023-07-31 05:42:08 2.5 g/dL F 0.9-5.0 Albumin [Mass/volume] in Serum or Plasma by Bromocresol green (BCG) dye binding method 2023-07-31 05:41:36 3.9 g/dL F 3.4-4.8 Bicarbonate [Moles/volume] in Serum or Plasma 2023-07-31 05:41:36 20 mEq/L F 20.0-31.0 Lactate dehydrogenase [Enzymatic activity/volume] in Serum or Plasma 2023-07-31 05:41:36 338 U/L F 120.0-246.0 Protein [Mass/volume] in Serum or Plasma 2023-07-31 05:41:36 6.4 g/dL F 5.7-8.2 Potassium [Moles/volume] in Serum or Plasma 2023-06-30 06:43:22 3.6 mEq/L F 3.5-5.5 A/G RATIO 2023-06-29 23:07:17 1.7 Calc F 1.0-2.5 GLOBULIN 2023-06-29 23:07:17 2.2 g/dL F 0.9-5.0 Albumin [Mass/volume] in Serum or Plasma by Bromocresol green (BCG) dye binding method 2023-06-29 23:06:40 3.7 g/dL F 3.4-4.8 Bicarbonate [Moles/volume] in Serum or Plasma 2023-06-29 23:06:40 23 mEq/L F 20.0-31.0 Lactate dehydrogenase [Enzymatic activity/volume] in Serum or Plasma 2023-06-29 23:06:40 307 U/L F 120.0-246.0 Protein [Mass/volume] in Serum or Plasma 2023-06-29 23:06:40 5.9 g/dL F 5.7-8.2 Potassium [Moles/volume] in Serum or Plasma 2023-06-02 07:35:22 3.6 mEq/L F 3.5-5.5 GLOBULIN 2023-06-02 03:14:15 2.4 g/dL F 0.9-5.0 A/G RATIO 2023-06-02 03:14:15 1.5 Calc F 1.0-2.5 Albumin [Mass/volume] in Serum or Plasma by Bromocresol green (BCG) dye binding method 2023-06-02 03:13:32 3.7 g/dL F 3.4-4.8 Bicarbonate [Moles/volume] in Serum or Plasma 2023-06-02 03:13:32 22 mEq/L F 20.0-31.0 Lactate dehydrogenase [Enzymatic activity/volume] in Serum or Plasma 2023-06-02 03:13:32 277 U/L F 120.0-246.0 Protein [Mass/volume] in Serum or Plasma 2023-06-02 03:13:32 6.1 g/dL F 5.7-8.2 Potassium [Moles/volume] in Serum or Plasma 2023-05-02 06:57:54 3.5 mEq/L F 3.5-5.5 A/G RATIO 2023-05-02 04:54:56 1.8 Calc F 1.0-2.5 GLOBULIN 2023-05-02 04:54:56 2.1 g/dL F 0.9-5.0 Bicarbonate [Moles/volume] in Serum or Plasma 2023-05-02 04:53:52 22 mEq/L F 20.0-31.0 Protein [Mass/volume] in Serum or Plasma 2023-05-02 04:53:52 5.8 g/dL F 5.7-8.2 Albumin [Mass/volume] in Serum or Plasma by Bromocresol green (BCG) dye binding method 2023-05-02 04:53:49 3.7 g/dL F 3.4-4.8 Lactate dehydrogenase [Enzymatic activity/volume] in Serum or Plasma 2023-05-02 04:53:49 323 U/L F 120.0-246.0 Potassium [Moles/volume] in Serum or Plasma 2023-04-01 04:55:55 3.1 mEq/L F 3.5-5.5 A/G RATIO 2023-03-31 20:44:08 1.7 Calc F 1.0-2.5 GLOBULIN 2023-03-31 20:44:08 2.4 g/dL F 0.9-5.0 Bicarbonate [Moles/volume] in Serum or Plasma 2023-03-31 20:43:18 23 mEq/L F 20.0-31.0 Protein [Mass/volume] in Serum or Plasma 2023-03-31 20:43:18 6.4 g/dL F 5.7-8.2 Albumin [Mass/volume] in Serum or Plasma by Bromocresol green (BCG) dye binding method 2023-03-31 20:43:14 4 g/dL F 3.4-4.8 Lactate dehydrogenase [Enzymatic activity/volume] in Serum or Plasma 2023-03-31 20:43:14 282 U/L F 120.0-246.0 Potassium [Moles/volume] in Serum or Plasma 2023-03-06 17:22:55 3.4 mEq/L F 3.5-5.5 A/G RATIO 2023-03-06 15:22:12 1.7 Calc F 1.0-2.5 GLOBULIN 2023-03-06 15:22:12 2.3 g/dL F 0.9-5.0 LDL-CHOLESTEROL 2023-03-06 15:22:12 71 mg/dL F 0.0-99.0 VLDL-CHOL(CALC) 2023-03-06 15:22:12 23 mg/dL F 0.0-29.0 CHOL/HDL RATIO 2023-03-06 15:22:12 4.1 Calc F 3.3-5.0 Cholesterol [Mass/volume] in Serum or Plasma 2023-03-06 15:21:16 124 mg/dL F 0.0-199.0 Bicarbonate [Moles/volume] in Serum or Plasma 2023-03-06 15:21:16 24 mEq/L F 20.0-31.0 Protein [Mass/volume] in Serum or Plasma 2023-03-06 15:21:16 6.3 g/dL F 5.7-8.2 Albumin [Mass/volume] in Serum or Plasma by Bromocresol green (BCG) dye binding method 2023-03-06 15:21:14 4 g/dL F 3.4-4.8 Lactate dehydrogenase [Enzymatic activity/volume] in Serum or Plasma 2023-03-06 15:21:14 255 U/L F 120.0-246.0 Protein [Mass/volume] in Serum or Plasma 2023-03-06 15:21:14 115 mg/dL F 0.0-149.0 Cholesterol in HDL [Mass/volume] in Serum or Plasma 2023-03-06 15:21:14 30 mg/dL F 40.0-60.0 Potassium [Moles/volume] in Serum or Plasma 2023-02-01 21:02:59 3.9 mEq/L F 3.5-5.5 GLOBULIN 2023-02-01 18:04:01 2.1 g/dL F 0.9-5.0 A/G RATIO 2023-02-01 18:04:01 1.8 Calc F 1.0-2.5 Albumin [Mass/volume] in Serum or Plasma by Bromocresol green (BCG) dye binding method 2023-02-01 18:03:26 3.7 g/dL F 3.4-4.8 Bicarbonate [Moles/volume] in Serum or Plasma 2023-02-01 18:03:26 22 mEq/L F 20.0-31.0 Lactate dehydrogenase [Enzymatic activity/volume] in Serum or Plasma 2023-02-01 18:03:26 262 U/L F 120.0-246.0 Protein [Mass/volume] in Serum or Plasma 2023-02-01 18:03:26 5.8 g/dL F 5.7-8.2 A/G RATIO 2022-12-26 22:23:13 1.8 Calc F 1.0-2.5 GLOBULIN 2022-12-26 22:23:13 2 g/dL F 0.9-5.0 Albumin [Mass/volume] in Serum or Plasma by Bromocresol green (BCG) dye binding method 2022-12-26 22:22:31 3.5 g/dL F 3.4-4.8 Bicarbonate [Moles/volume] in Serum or Plasma 2022-12-26 22:22:31 23 mEq/L F 20.0-31.0 Lactate dehydrogenase [Enzymatic activity/volume] in Serum or Plasma 2022-12-26 22:22:31 261 U/L F 120.0-246.0 Potassium [Moles/volume] in Serum or Plasma 2022-12-26 22:22:31 3.9 mEq/L F 3.5-5.5 Protein [Mass/volume] in Serum or Plasma 2022-12-26 22:22:31 5.5 g/dL F 5.7-8.2 A/G RATIO 2022-11-06 04:07:03 1.7 Calc F 1.0-2.5 GLOBULIN 2022-11-06 04:07:03 2.1 g/dL F 0.9-5.0 Albumin [Mass/volume] in Serum or Plasma by Bromocresol green (BCG) dye binding method 2022-11-06 04:06:32 3.5 g/dL F 3.4-4.8 Bicarbonate [Moles/volume] in Serum or Plasma 2022-11-06 04:06:32 25 mEq/L F 20.0-31.0 Lactate dehydrogenase [Enzymatic activity/volume] in Serum or Plasma 2022-11-06 04:06:32 221 U/L F 120.0-246.0 Potassium [Moles/volume] in Serum or Plasma 2022-11-06 04:06:32 4.3 mEq/L F 3.5-5.5 Protein [Mass/volume] in Serum or Plasma 2022-11-06 04:06:32 5.6 g/dL F 5.7-8.2 A/G RATIO 2022-09-30 21:12:51 1.7 Calc F 1.0-2.5 GLOBULIN 2022-09-30 21:12:51 1.8 g/dL F 0.9-5.0 Albumin [Mass/volume] in Serum or Plasma by Bromocresol green (BCG) dye binding method 2022-09-30 21:12:35 3.1 g/dL F 3.4-4.8 Bicarbonate [Moles/volume] in Serum or Plasma 2022-09-30 21:12:35 24 mEq/L F 20.0-31.0 Lactate dehydrogenase [Enzymatic activity/volume] in Serum or Plasma 2022-09-30 21:12:35 216 U/L F 120.0-246.0 Potassium [Moles/volume] in Serum or Plasma 2022-09-30 21:12:35 4.5 mEq/L F 3.5-5.5 Protein [Mass/volume] in Serum or Plasma 2022-09-30 21:12:35 4.9 g/dL F 5.7-8.2 LDL-CHOLESTEROL 2022-09-05 19:06:49 70 mg/dL F 0.0-99.0 CHOL/HDL RATIO 2022-09-05 19:06:49 5.3 Calc F 3.3-5.0 VLDL-CHOL(CALC) 2022-09-05 19:06:49 28 mg/dL F 0.0-29.0 Cholesterol [Mass/volume] in Serum or Plasma 2022-09-05 19:06:17 121 mg/dL F 0.0-199.0 Protein [Mass/volume] in Serum or Plasma 2022-09-05 19:06:17 142 mg/dL F 0.0-149.0 Cholesterol in HDL [Mass/volume] in Serum or Plasma 2022-09-05 19:06:17 23 mg/dL F 40.0-60.0 A/G RATIO 2022-07-09 18:46:40 1.8 Calc F 1.0-2.5 GLOBULIN 2022-07-09 18:46:40 2.3 g/dL F 0.9-5.0 Albumin [Mass/volume] in Serum or Plasma by Bromocresol green (BCG) dye binding method 2022-07-09 18:46:18 4.1 g/dL F 3.4-4.8 Bicarbonate [Moles/volume] in Serum or Plasma 2022-07-09 18:46:18 15 mEq/L F 20.0-31.0 Potassium [Moles/volume] in Serum or Plasma 2022-07-09 18:46:18 3.7 mEq/L F 3.5-5.5 Protein [Mass/volume] in Serum or Plasma 2022-07-09 18:46:18 6.4 g/dL F 5.7-8.2 A/G RATIO 2022-05-29 20:30:15 1.6 Calc F 1.0-2.5 GLOBULIN 2022-05-29 20:30:15 2.5 g/dL F 0.9-5.0 LDL-CHOLESTEROL 2022-05-29 20:30:15 73 mg/dL F 0.0-99.0 VLDL-CHOL(CALC) 2022-05-29 20:30:15 17 mg/dL F 0.0-29.0 CHOL/HDL RATIO 2022-05-29 20:30:15 4.5 Calc F 3.3-5.0 Albumin [Mass/volume] in Serum or Plasma by Bromocresol green (BCG) dye binding method 2022-05-29 20:29:28 4 g/dL F 3.4-4.8 Cholesterol [Mass/volume] in Serum or Plasma 2022-05-29 20:29:28 116 mg/dL F 0.0-199.0 Bicarbonate [Moles/volume] in Serum or Plasma 2022-05-29 20:29:28 23 mEq/L F 20.0-31.0 Potassium [Moles/volume] in Serum or Plasma 2022-05-29 20:29:28 3.8 mEq/L F 3.5-5.5 Protein [Mass/volume] in Serum or Plasma 2022-05-29 20:29:28 87 mg/dL F 0.0-149.0 Protein [Mass/volume] in Serum or Plasma 2022-05-29 20:29:28 6.5 g/dL F 5.7-8.2 Cholesterol in HDL [Mass/volume] in Serum or Plasma 2022-05-29 20:29:28 26 mg/dL F 40.0-60.0 A/G RATIO 2022-05-12 23:57:11 1.6 Calc F 1.0-2.5 GLOBULIN 2022-05-12 23:57:11 2.5 g/dL F 0.9-5.0 Albumin [Mass/volume] in Serum or Plasma by Bromocresol green (BCG) dye binding method 2022-05-12 23:56:17 4.1 g/dL F 3.4-4.8 Bicarbonate [Moles/volume] in Serum or Plasma 2022-05-12 23:56:17 22 mEq/L F 20.0-31.0 Potassium [Moles/volume] in Serum or Plasma 2022-05-12 23:56:17 4.3 mEq/L F 3.5-5.5 Protein [Mass/volume] in Serum or Plasma 2022-05-12 23:56:17 6.6 g/dL F 5.7-8.2 A/G RATIO 2022-04-01 20:20:12 1.8 Calc F 1.0-2.5 GLOBULIN 2022-04-01 20:20:12 2.4 g/dL F 0.9-5.0 Albumin [Mass/volume] in Serum or Plasma by Bromocresol green (BCG) dye binding method 2022-04-01 20:19:58 4.2 g/dL F 3.4-4.8 Bicarbonate [Moles/volume] in Serum or Plasma 2022-04-01 20:19:58 19 mEq/L F 20.0-31.0 Potassium [Moles/volume] in Serum or Plasma 2022-04-01 20:19:58 3.3 mEq/L F 3.5-5.5 Protein [Mass/volume] in Serum or Plasma 2022-04-01 20:19:58 6.6 g/dL F 5.7-8.2 A/G RATIO 2022-03-06 00:58:45 2 Calc F 1.0-2.5 GLOBULIN 2022-03-06 00:58:45 2 g/dL F 0.9-5.0 VLDL-CHOL(CALC) 2022-03-06 00:58:45 11 mg/dL F 0.0-29.0 CHOL/HDL RATIO 2022-03-06 00:58:45 3.8 Calc F 3.3-5.0 LDL-CHOLESTEROL 2022-03-06 00:58:45 79 mg/dL F 0.0-99.0 Albumin [Mass/volume] in Serum or Plasma by Bromocresol green (BCG) dye binding method 2022-03-06 00:57:46 3.9 g/dL F 3.4-4.8 Cholesterol [Mass/volume] in Serum or Plasma 2022-03-06 00:57:46 122 mg/dL F 0.0-199.0 Bicarbonate [Moles/volume] in Serum or Plasma 2022-03-06 00:57:46 20 mEq/L F 20.0-31.0 Potassium [Moles/volume] in Serum or Plasma 2022-03-06 00:57:46 3.5 mEq/L F 3.5-5.5 Protein [Mass/volume] in Serum or Plasma 2022-03-06 00:57:46 5.9 g/dL F 5.7-8.2 Protein [Mass/volume] in Serum or Plasma 2022-03-06 00:57:46 56 mg/dL F 0.0-149.0 Cholesterol in HDL [Mass/volume] in Serum or Plasma 2022-03-06 00:57:46 32 mg/dL F 40.0-60.0 A/G RATIO 2022-01-28 23:46:55 1.7 Calc F 1.0-2.5 GLOBULIN 2022-01-28 23:46:55 2.3 g/dL F 0.9-5.0 Albumin [Mass/volume] in Serum or Plasma by Bromocresol green (BCG) dye binding method 2022-01-28 23:46:37 3.8 g/dL F 3.4-4.8 Bicarbonate [Moles/volume] in Serum or Plasma 2022-01-28 23:46:37 20 mEq/L F 20.0-31.0 Protein [Mass/volume] in Serum or Plasma 2022-01-28 23:46:37 6.1 g/dL F 5.7-8.2 Potassium [Moles/volume] in Serum or Plasma 2022-01-28 23:46:37 3.3 mEq/L F 3.5-5.5 Encounters No encounter information to report Immunizations Ordered Immunization Name Filled Immunization Name Date Status Comments Refusal Reason [id number] 2023-12-06 20:00:00 TST-PPD intradermal 2023-07-29 16:30:00 Hep B, adult 2023-03-05 19:15:00 Hep B, adult 2022-11-04 18:20:00 Hep B, adult 2022-09-29 20:23:00 Hep B, adult 2022-09-04 18:30:00 TST-PPD intradermal 2022-07-07 21:55:00 TB Skin Test 2022-07-07 05:00:00 TB RAQ 2022-03-18 07:00:00 Influenza Vaccination 2021-11-26 05:00:00 Plan of Treatment Planned Activity Provider Planned Date Details Commen ts Diagnostic Test Pending Xavier Louiscell 2023-09-03 06:40:12 Hemoglobin [Mass/volume] in Blood [code = 718-7] [facility] 05:[facility]:00 Alanine aminotransferase [Enzymatic activity/volume] in Serum or Plasma [code = 1742-6] Diagnostic Test Pending [facility] 2022-07-31 12:46:37 25-Hydroxyvitamin D3+25-Hydroxyvitamin D2 [Mass/volume] in Serum or Plasma [code = 44783-5] Diagnostic Test Pending [facility] 2022-08-22 05:00:00 Parathyrin.intact [Mass/volume] in Serum or Plasma [code = 2731-8] Diagnostic Test Pending [facility] 2022-07-21 19:40:56 Aluminum [Mass/volume] in Serum or Plasma [code = 5574-9] Diagnostic Test Pending [facility] 2022-07-31 12:39:30 Reticulocytes/100 erythrocytes in Blood by Automated count [code = 98041-7] Diagnostic Test Pending [facility] 2022-07-21 19:41:19 Ferritin [Mass/volume] in Serum or Plasma [code = 2276-4] Diagnostic Test [facility] 2023-12-16 15:06:57 CCPD [code = PNC008] Diet Order Xavier [facility] (PD) July 31, 2022 Diet Calorie 30 kcal/kg Fluid Value 1000 mL/d Phosphorus Value 950 mg/d Potassium Value 2000 mg/d Protein Value 1.2 gm/kg Sodium Value 2000 mg/d Calculated Weight 79 kg
--- OUTSIDE RECORDS SUMMARY | 2024-03-16 04:11 | XMS_ITS | Referral Summary ---
Author Organization [facility] Address [address] [place] [address] Care Team Providers Care Construction Materials Tester Name Role Phone Janet Moss RN Unavailable [phone] Milo Morrell MD Primary Care Provide r Encounters Date Type Department Care Team Description 03/08/2024 Telephone [facility] Transplant Kidney [address] [facility] [address] [phone] [place] [address] Janet Moss RN 01/26/2024 10:00 AM [facility] - 01/26/2024 11:59 PM [facility] Hospital Encounter [address] [id number] ESRD (end stage renal disease) ([facility] ([facility]) Discharge Disposition: Discharge to home or self care 12/31/2023 10:00 AM [facility] - 12/31/2023 11:59 PM [facility] Hospital Encounter [address] [id number] ESRD (end stage renal disease) ([facility] ([facility]) Discharge Disposition: Discharge to home or self care 12/31/2023 Orders Only [facility] Nephrology [address] [facility] [address] [place] [address] [place] [id number] Alejo Florence MD from Last 3 Months Allergies No known active allergies Medications albuterol [...] Date Diagnosed Date End stage renal disease ([facility]) 04/05/2023 Immunizations Name Administration Dates Next Due Hep [...] on file Legal Sex Male 9:46 AM [facility] Gender Identity Not on file Sexual Orientation Not on file Last Filed Vital Signs Vital Sign Reading Time Taken Comments Blood Pressure 163/115 04/12/2023 8:12 AM [facility] Pulse 77 04/12/2023 8:12 AM [facility] Temperature 36.7 ??C (98.1 ??F) 04/05/2023 1:04 PM CS T Respiratory Rate - - Oxygen Saturation - - Inhaled Oxygen Concentration - - Weight 112.5 kg (248 lb 0.3 oz) 04/12/2023 8:12 AM [facility] Height 175.3 cm (5' 9 ) 04/05/2023 1:04 PM [facility] Body Mass Index 36.63 04/05/2023 1:04 PM [facility] Plan of Treatment Not on file Procedures Procedure Name Priority Date/Time Associated Diagnosis Comments HLA ANTIBODY SCREEN BY PRA OR SAB PER SCHEDULE (CLASS I AND CLASS II) Routine 01/26/2024 10:00 AM [facility] ESRD (end stage renal disease) (CMS/HCC) (HCC) HLA ANTIBODY SCREEN - SAB (CLASS I AND CLASS II) Routine 12/31/2023 10:00 AM [facility] HLA ANTIBODY SCREEN - PRA (CLASS I AND CLASS II) Routine 12/31/2023 10:00 AM [facility] ESRD (end stage renal disease) (CMS/HCC) (HCC) HLA ANTIBODY SCREEN BY PRA OR SAB PER SCHEDULE (CLASS I AND CLASS II) Routine 12/31/2023 10:00 AM [facility] ESRD (end stage renal disease) (CMS/HCC) (HCC) HEPATITIS C ANTIBODY Routine 04/05/2023 11:27 AM [facility] End stage renal disease (CMS/HCC) (HCC) PSA SCREEN Routine 04/05/2023 11:27 AM [facility] End stage renal disease (CMS/HCC) (HCC) from Last 3 Months or Most Recently Relevant to Health Maintenance Results * HLA Antibody Screen by PRA or SAB per Schedule (Class I and Class II) (01/26/2024 10:00 AM [facility]) Blood 01/26/2024 10:0 0 AM [facility] Narrative [facility] - [facility] Sample received in lab and stored. ??No testing performed at this time. Alejo Florence MD LAB BLOOD ORDERABLES Final Resu Performing Organization Address [facility] Co de Phone Number [facility] * HLA Antibody Screen by PRA or SAB per Schedule (Class I and Class II) (12/31/2023 10:00 AM [facility]) Blood 12/31/2023 10:0 0 AM [facility] Narrative [facility] - [facility] Sample received in lab. ??PRA Screen ordered. Alejo Florence MD LAB BLOOD ORDERABLES Final Resu Performing Organization Address [facility] de Phone Number [facility] * HLA Antibody Screen - PRA (Class I and Class II) (12/31/2023 10:00 AM [facility]) Class I Treatment Untreated [facility] Class I Dilution 1:1 [facility] Class I Tested Date 01/05/2024 [facility] Class I Result Positive [facility] Class I Percent Positive 2 [facility] Class II Treatment Untreated [facility] Class II Dilution 1:1 [facility] Class II Tested Date 01/06/2024 [facility] Class II Result Negative [facility] Class II Percent Positive 0 [facility] 12/31/2023 10:0 0 AM [facility] 01/06/2024 1:28 PM [facility] Narrative [facility] - 01/06/2024 1:28 PM [facility] PRA (panel reactive antibody) HLA antibody screen is performed on serum samples using a method developed and validated by the [facility] HLA laboratory based on an FDA- approved IVD kit (LABScreen PRA, [employer], [place], [place]). Interpretive comments: The percentage of beads with MFI > 750 is reported, which indicates the percentage of donor population estimated to be incompatible with the patient tested. PRA > 0% is consistent with alloimmunization to HLA. Testing performed at the [facility], [address] [place], [place] [address], 5th floor, [place], [address]. [facility] # [id number]. Breanne Nieto, Ph.D., Almond Cutting Machine Tender, HLA Laboratory Abdoulaye Kraft M.D., Ph.D., Data Processing Clerk, HLA Laboratory Denise Abreu, Ph.D., CLIA Data Processing Clerk, [facility] Clinical Laboratories Current methodology and interpretive comments last revised on 06/16/2017. us Alejo Florence MD LAB BLOOD ORDERABLES Final Resu lt [facility] * HLA Antibody Screen - SAB (Class I and Class II) (12/31/2023 10:00 AM [facility]) Class I Treatment EDTA [facility] Class I [...] CPRA 0 [facility] 12/31/2023 10:0 0 AM [facility] 01/06/2024 1:28 PM [facility] Narrative [facility] - 01/06/2024 1:28 PM [facility] Single-antigen HLA antibody screen is performed on serum samples using a method developed and validated by the [facility] HLA laboratory based on an FDA-approved IVD kit (LABScreen Single-Antigen, [employer], [place], [place]). All patient serum samples are pretreated with EDTA before the screen to prevent complement interference. Additional serum treatments, such as adsorption and DTT treatment, may be performed as indicated. ??Interpretive comments: Low risk: MFI [id number]. Moderate risk: MFI [id number]. Increased risk: MFI >/= 5000. The presence [...] antigens to avoid. Testing performed at the [facility], [address] [place] [address], 5th floor, [place], [address]. [facility] # [id number]. Breanne Nieto, Ph.D., Almond Cutting Machine Tender, HLA Laboratory Abdoulaye Kraft M.D., Ph.D., Data Processing Clerk, [facility] Laboratory Denise Abreu, Ph.D., CLIA Data Processing Clerk, [facility] Current methodology and interpretive comments last revised on 03/19/2022. us Alejo Florence MD LAB BLOOD ORDERABLES Final Resu lt [facility] * PSA screen (04/05/2023 11:27 AM [facility]) PSA-Total 0.28 <=3.90 ng/mL [facility] Comment: Interpretive Data ?AGE ? SEX [...] revised 21. Blood 04/05/2023 11:2 7 AM [facility] 04/05/2023 12:10 PM [facility] Narrative [facility] - 04/05/2023 12:57 PM [facility] This lab is being obtained as part of a Kidney transplant evaluation, is time sensitive, and should only be drawn during the evaluation visit at [address] Abena Brown MD LAB BLOOD ORDERABL ES Final Result Performing Organization Address [facility] de Phone Number [facility] [place] [address] * Hepatitis C antibody Blood (04/05/2023 11:27 AM [facility]) Pathologist [facility] Hep C Ab Nonreactive Nonreactive [facility] Comment:Antibodies to HCV no t detected. Does NOT exclude the possibility of recent exposure to HCV. Current interpretive data was last revised on 21 Blood 04/05/2023 11:2 7 AM [facility] 04/05/2023 12:09 PM [facility] Narrative [facility] - 04/05/2023 1:03 PM [facility] This lab is being obtained as part of a Kidney transplant evaluation, is time sensitive, and should only be drawn during the evaluation visit at [address] Abena Brown MD LAB MICROBIOLOGY - GENERAL ORDERABLES Final Result Performing Organization Address [facility] de Phone Number [facility] Department [place] [address] from Last 3 Months or Most Recently Relevant to Health Maintenance Insurance MEDICARE [employer] MEDICARE IDPA MEDICARE [employer] Care Teams Construction Materials Tester Relationship Specialty Start Date End Date Milo Morrell MD [address] [place] [address] PCP - General Emergency Medicine 03/26/23 Janet Moss, RN [phone] [address] Nurse Companion 10/06/22
[2024-03-16 04:42] LABS: Hematocrit 43.4 % (42.0-52.0); Hemoglobin 14.1 g/dL (14.0-18.0); Mean Corpuscular HGB Conc 32.5 g/dl (32-36); Mean Corpuscular Hemoglobin 32.8 pg (26-34); Mean Corpuscular Volume 100.9 fl (80-100); Mean Platelet Volume 10.3 fl (7.4-10.4); Platelet Count Result 376 k/mm3 (150-375); Red Cell Distribution Width 13.9 % (11.5-14.5); White Blood Count 27.4 K/mm3 (4.5-10.0)
[2024-03-16 04:54] LABS: Alanine Aminotransferase 20 U/L (6-50); Albumin Level 3.5 g/dL (3.5-5.1); Alkaline Phosphatase 116 U/L (38-126); Anion Gap 15 mmol/L (4-12); Aspartate Amino Transferase 18 U/L (17-59); Bilirubin,Total 0.5 mg/dL (0.2-1.3); Blood Urea Nitrogen 74 mg/dL (9-20); Calcium 8.9 mg/dL (8.4-10.2); Carbon Dioxide 24 mmol/L (22-30); Chloride 94 mmol/L (98-107); Estimated CRCL calculation 8 ml/min; Estimated Glomerular Filt Rate 5; Glucose 118 mg/dL (65-110); Magnesium 1.8 mg/dL (1.6-2.3); Phosphorus 5.3 mg/dL (2.5-4.5); Potassium 3.4 mmol/L (3.4-5.0); Sodium 133 mmol/L (137-145)
[2024-03-16] MEDS: HEPARIN SODIUM 5,000 UNITS/ML VIAL 5000 UNITS SUB-Q ×3 (05:08→21:12)
[2024-03-16] MEDS: busPIRone HCL 10 MG TABLET BY MOUTH ×3 (09:11→16:33)
[2024-03-16] MEDS: ESCITALOPRAM OXALATE 10 MG TABLET PO (09:11)
[2024-03-16] MEDS: CINACALCET 30 MG TABLET 90 MG PO (09:11)
[2024-03-16] MEDS: CALCIUM ACETATE 667 MG TABLET 2668 MG PO ×3 (09:11→16:33)
[2024-03-16] MEDS: cefTRIAXone 2 GM/NS 100 ML 2 GM/100 ML BAG IVPB (09:12)
[2024-03-16] MEDS: methylPREDNISolone SOD SUCC 40 MG VIAL IV PUSH (09:12)
[2024-03-16] MEDS: PANTOPRAZOLE SODIUM IV 40 MG VIAL IV PUSH (09:12)
[2024-03-16] MEDS: IRON PO ×3 (09:13→16:34)
[2024-03-16] MEDS: FERRIC CITRATE 210 MG PO ×3 (09:13→16:34)
[2024-03-16 09:26] LABS: Glucose Point of Care 105 mg/dl (65-105)
--- NOTE | 2024-03-16 09:49 | PM.IMPN ---
Progress Note: A&P Assessment and Plan (1) Acute hypercapnic respiratory failure: Code(s): J96.02 - Acute respiratory failure with hypercapnia Status: Acute Assessment and Plan: Acute hypercapnic respiratory failure likely related to volume overload, influenza A pneumonia, questionable COPD as patient has a history of tobacco use and currently smokes marijuana -03/11: Transferred from medical floor to ICU for hypoxic and hypercapnic respiratory failure, wheezing, volume overload, possible pneumonia -03/09: Influenza A positive Patient is on continue course ceftriaxone and vancomycin -continue Tamiflu Patient on high-flow oxygen -decrease steroids -incentive spirometry, up in chair (2) End-stage renal disease on peritoneal dialysis: Code(s): N18.6 - End stage renal disease; Z99.2 - Dependence on renal dialysis Status: Acute Assessment and Plan: End-stage renal disease on peritoneal dialysis PD schedule per registered nurse behavioral health patient also is on torsemide, metolazone at home, will continue patient on fluid restriction per registered nurse behavioral health (3) Fluid overload: Qualifiers: Hypervolemia type: unspecified Qualified Code(s): E87.70 - Fluid overload, unspecified Code(s): E87.70 - Fluid overload, unspecified Status: Acute Assessment and Plan: Likely related to incomplete peritoneal dialysis at home -continue PD per registered nurse behavioral health -improved (4) HTN (hypertension): Code(s): I10 - Essential (primary) hypertension Status: Chronic Assessment and Plan: Essential hypertension, hold amlodipine, labetalol and blood pressures are within normal limits for now NT p.r.n. hydralazine (5) Polyneuropathy: Code(s): G62.9 - Polyneuropathy, unspecified Status: Acute Assessment and Plan: Off gabapentin since patient has been having tremor-like/asterixis movements -continue nortriptyline (6) Influenza A: Code(s): J10.1 - Influenza due to other identified influenza virus with other respiratory manifestations Status: Acute Assessment and Plan: Continue Tamiflu (7) Electrolyte abnormality: Code(s): E87.8 - Other disorders of electrolyte and fluid balance, not elsewhere classified Status: Acute Assessment and Plan: Replace low potassium Plan DVT prophylaxis: Heparin SQ Stress ulcer prophylaxis: Protonix Nutrition: Diet ordered Code Status: Full code Subjective Date/time seen: 03/16/24 09:49 Interval history: patient with history of ESRD on peritoneal dialysis went to respiratory failure possibly due to hypercapnic with volume overload pneumonia and underlying COPD, patient also found to influenza A, has adequate dialysis patient is on high-flow oxygen, off BiPAP Patient feels dyspnea is improving, still has general weakness Patient denies chest pain palpitation abdomen pain nausea vomiting Exam Narrative: GENERAL: Ill-appearing, in no acute distress. Well-nourished. - EYES: EOMI. Anicteric. - HENT: Moist mucous membranes. - LUNGS: Coarse breath sound bilaterally no wheezing, rhonchi, or rales. - CARDIOVASCULAR: Regular rate and rhythm. No murmur. No JVD. - ABDOMEN: Soft, non-tender and non-distended. No palpable masses. - EXTREMITIES: No edema. Peripheral pulses 2+. Non-tender. - NEUROLOGIC: No focal neurological deficits. CN II-XII grossly intact. General weakness - PSYCHIATRIC: Awake, Alert and oriented x 3. Appropriate mood and affect. - SKIN: No rashes or lesions. Warm. - LYMPH: No cervical lymphadenopathy. Objective Data Vital Signs Vital Signs: Vital Signs - 24 hr 03/15/24 10:00 03/15/24 10:01 03/15/24 10:02 Temperature Pulse Rate 99 98 Respiratory Rate 18 Blood Pressure Pulse Oximetry 93 Oxygen Delivery High Flow Therapy with Na Oxygen Flow Rate 35 Fraction of Inspired Oxygen 50 03/15/24 10:12 03/15/24 12:00 03/15/24 12:00 Temperature Pulse Rate 97 104 H Respiratory Rate 20 Blood Pressure Pulse Oximetry 94 Oxygen Delivery High Flow Therapy with Na Oxygen Flow Rate 30 Fraction of Inspired Oxygen 50 03/15/24 13:35 03/15/24 13:39 03/15/24 13:43 Temperature 97.4 F L Pulse Rate 101 H 100 Respiratory Rate 21 H 21 H Blood Pressure 113/89 Pulse Oximetry 96 98 Oxygen Delivery High Flow Therapy with Na Oxygen Flow Rate 35 Fraction of Inspired Oxygen 50 03/15/24 13:51 03/15/24 14:00 03/15/24 15:37 Temperature Pulse Rate 102 H 104 H Respiratory Rate 19 Blood Pressure Pulse Oximetry 95 Oxygen Delivery High Flow Therapy with Na Oxygen Flow Rate 35 Fraction of Inspired Oxygen 50 03/15/24 16:00 03/15/24 16:00 03/15/24 16:00 Temperature 97.6 F Pulse Rate 102 H 97 108 H Respiratory Rate 18 20 Blood Pressure 133/102 H Pulse Oximetry 96 94 Oxygen Delivery High Flow Therapy with Na Oxygen Flow Rate 30 Fraction of Inspired Oxygen 45 03/15/24 17:59 03/15/24 18:42 03/15/24 19:53 Temperature Pulse Rate 99 105 H Respiratory Rate 20 Blood Pressure 117/95 H Pulse Oximetry 96 Oxygen Delivery High Flow Therapy with Na Oxygen Flow Rate 35 Fraction of Inspired Oxygen 45 03/15/24 20:00 03/15/24 20:00 03/15/24 20:30 Temperature 97.6 F Pulse Rate 108 H 108 H Respiratory Rate 13 Blood Pressure 132/90 Pulse Oximetry 97 94 Oxygen Delivery High Flow Therapy with Na Oxygen Flow Rate 35 Fraction of Inspired Oxygen 45 03/15/24 20:30 03/15/24 20:36 03/15/24 23:43 Temperature Pulse Rate 103 H 108 H 102 H Respiratory Rate 16 16 20 Blood Pressure Pulse Oximetry 92 Oxygen Delivery High Flow Therapy with Na Oxygen Flow Rate 35 Fraction of Inspired Oxygen 45 03/16/24 00:00 03/16/24 00:00 03/16/24 02:00 Temperature Pulse Rate 100 100 97 Respiratory Rate 23 H Blood Pressure 132/90 Pulse Oximetry 96 Oxygen Delivery Oxygen Flow Rate Fraction of Inspired Oxygen 03/16/24 02:19 03/16/24 02:25 03/16/24 04:00 Temperature Pulse Rate 87 92 92 Respiratory Rate 19 19 20 Blood Pressure Pulse Oximetry 92 Oxygen Delivery High Flow Therapy with Na Oxygen Flow Rate 35 Fraction of Inspired Oxygen 45 03/16/24 04:00 03/16/24 04:00 03/16/24 05:23 Temperature 97.9 F Pulse Rate 96 96 91 Respiratory Rate 15 Blood Pressure 99/80 L Pulse Oximetry 94 Oxygen Delivery Oxygen Flow Rate Fraction of Inspired Oxygen 03/16/24 07:39 03/16/24 08:20 03/16/24 08:20 Temperature Pulse Rate 99 94 Respiratory Rate 16 20 Blood Pressure 118/89 Pulse Oximetry 92 Oxygen Delivery High Flow Therapy with Na Oxygen Flow Rate 35 35 Fraction of Inspired Oxygen 45 03/16/24 08:30 Temperature Pulse Rate 96 Respiratory Rate 20 Blood Pressure Pulse Oximetry Oxygen Delivery Oxygen Flow Rate Fraction of Inspired Oxygen Intake/Output Intake/Output: Intake & Output 03/13/24 03/14/24 03/15/24 03/16/24 23:59 23:59 23:59 23:59 Intake Total 2540 2740 1370 240 Output Total 1161 1016 7487 896 Balance 1377 [phone] Meds/Results Medications: Active Medications Generic Name Dose Route Start Last Admin Trade Name Freq PRN Reason Stop Dose Admin Acetaminophen 650 mg 03/09/24 18:43 03/14/24 21:37 Acetaminophen 325 Mg Tablet PO 650 mg Q4H PRN Administration Mild Pain (1-3) or Fever Albuterol/Ipratropium 3 ml 03/11/24 02:00 03/16/24 08:20 Ipratropium 0.5 Mg/Albuterol Sulfate 2.5 Mg Ampul.Neb 3 Ml INHALATION 3 ml Q6HRT CARIDAD Administration Albuterol/Ipratropium 3 ml 03/11/24 00:48 Ipratropium 0.5 Mg/Albuterol Sulfate 2.5 Mg Ampul.Neb 3 Ml INHALATION Q2HRT PRN Shortness Of Breath Or Wheezing Azithromycin 500 mg 03/13/24 17:00 03/15/24 16:53 Azithromycin 250 Mg Tablet PO 03/17/24 17:01 500 mg DAILY@1700 CARIDAD Administration Buspirone HCl 10 mg 03/10/24 09:00 03/16/24 09:11 Buspirone Hcl 10 Mg Tablet BY MOUTH 10 mg TID CARIDAD Administration Calcium Acetate 2,668 mg 03/10/24 08:00 03/16/24 09:11 Calcium Acetate 667 Mg Tablet PO 2,668 mg TIDWM CARIDAD Administration Calcium Carbonate 200 mg 03/09/24 23:10 Calcium Carbonate (Tums) 500 Mg (200 Mg Elemental) PO HS PRN Indigestion Cinacalcet 90 mg 03/10/24 09:00 03/16/24 09:11 Cinacalcet 30 Mg Tablet PO 90 mg DAILY CARIDAD Administration Dextrose 12.5 gm 03/12/24 11:41 Dextrose 50% 25 Gm/50 Ml Syringe IV PUSH PRN PRN Hypoglycemia Protocol Diphenoxylate HCl/Atropine 1 tablet 03/12/24 11:39 Diphenoxylate/Atropine (*Crx) 2.5 Mg Tablet PO QID PRN Diarrhea Escitalopram Oxalate 10 mg 03/10/24 09:00 03/16/24 09:11 Escitalopram Oxalate 10 Mg Tablet PO 10 mg DAILY CARIDAD Administration Gentamicin Sulfate 1 applic 03/09/24 21:00 03/15/24 19:47 Gentamicin Sulfate 0.1% Cr 15 Gm Tube TOPICAL Not Given QHS CARIDAD Glucagon 1 mg 03/12/24 11:41 Glucagon For Inj 1 Mg Vial IM PRN PRN Hypoglycemia Protocol Glucose 15 gm 03/12/24 11:41 Glucose Oral Gel 15 Gm Of Glucse In 37.5 Gm Tube PO PRN PRN Hypoglycemia Protocol Heparin Sodium (Porcine) 5,000 units 03/10/24 14:00 03/16/24 05:08 Heparin Sodium 5,000 Units/Ml Vial SUB-Q 5,000 units Q8HR CARIDAD Administration Hydralazine HCl 10 mg 03/11/24 11:03 03/11/24 21:31 Hydralazine Hcl 20 Mg/Ml Vial IV PUSH 10 mg Q4H PRN Administration Blood Pressure - High Ceftriaxone Sodium 2 gm in 100 mls @ 200 mls/hr 03/11/24 10:00 03/16/24 09:12 Rocephin 2 Gm/Ns 100 Ml IVPB 03/17/24 09:29 200 mls/hr DAILY CARIDAD Administration Dextrose 1,000 mls @ 100 mls/hr 03/12/24 11:41 Dextrose 5% 1,000 Ml IVPB PRN PRN Hypoglycemia Protocol Insulin Aspart 3 - 6 units 03/12/24 12:00 03/16/24 09:12 Insulin Aspart (*Bkc) 100 Units/Ml SUB-Q Not Given TIDWM [facility] Protocol Insulin Aspart 1 - 3 units 03/12/24 21:00 03/15/24 20:38 Insulin Aspart (*Bkc) 100 Units/Ml SUB-Q Not Given HS CARIDAD Protocol Labetalol HCl 100 mg 03/10/24 09:00 03/12/24 09:00 Labetalol Hcl 100 Mg Tablet PO Not Given Q12HR CARIDAD Melatonin 20 mg 03/10/24 21:00 03/10/24 20:33 Melatonin 5 Mg Tablet PO 20 mg QHS CARIDAD Administration Melatonin 5 mg 03/13/24 19:50 03/15/24 19:46 Melatonin 5 Mg Tablet PO 5 mg HS PRN Administration Insomnia Methylprednisolone Sodium Succinate 40 mg 03/15/24 09:00 03/16/24 09:12 Methylprednisolone Sod Succ 40 Mg Vial IV PUSH 03/19/24 08:59 40 mg QAM CARIDAD Administration Metolazone 5 mg 03/10/24 09:00 03/12/24 09:00 Metolazone 5 Mg Tablet PO Not Given DAILY [facility] *Home Med*Ferric 0 mg 03/10/24 08:00 03/16/24 09:13 Citrate [Auryxia] PO 04/09/24 07:59 840 mg 210 Mg Iron Tablet TIDWM CARIDAD Administration Nortriptyline HCl 50 mg 03/10/24 21:00 03/15/24 19:46 Nortriptyline Hcl 25 Mg Capsule PO 50 mg QHS CARIDAD Administration Ondansetron HCl 4 mg 03/09/24 18:43 03/15/24 16:53 Ondansetron Inj 4 Mg/2 Ml Vial IV PUSH 4 mg Q4H PRN Administration Nausea Pantoprazole Sodium 40 mg 03/10/24 09:00 03/10/24 08:14 Pantoprazole 40 Mg Tablet PO 40 mg QAM CARIDAD Administration Pantoprazole Sodium 40 mg 03/11/24 09:00 03/16/24 09:12 Pantoprazole Sodium Iv 40 Mg Vial IV PUSH 40 mg QAM CARIDAD Administration Torsemide 100 mg 03/11/24 17:00 03/12/24 09:00 Torsemide 20 Mg Tablet PO Not Given BID [facility] Radiology Results: ITS Impressions Chest X-Ray 03/13/24 05:51 Impression: Possible mild central pulmonary venous congestive change. Labs Labs: Laboratory Results - last 24 hr 03/15/24 03/15/24 03/15/24 11:36 16:35 20:29 WBC RBC Hgb Hct MCV MCH MCHC RDW Plt Count MPV Sodium Potassium Chloride Carbon Dioxide Anion Gap BUN Creatinine Estim Creat Clear Calc Estimated GFR Glucose POC Capillary Glucose 135 H 142 H 170 H Calcium Phosphorus Magnesium Total Bilirubin AST ALT Alkaline Phosphatase Total Protein Albumin 03/16/24 03/16/24 04:26 09:10 WBC 27.4 H RBC 4.30 L Hgb 14.1 Hct 43.4 MCV 100.9 H MCH 32.8 MCHC 32.5 RDW 13.9 Plt Count 376 H MPV 10.3 Sodium 133 L Potassium 3.4 Chloride 94 L Carbon Dioxide 24 Anion Gap 15 H BUN 74 H Creatinine 11.71 H Estim Creat Clear Calc 8 Estimated GFR 5 L Glucose 118 H POC Capillary Glucose 105 Calcium 8.9 Phosphorus 5.3 H Magnesium 1.8 Total Bilirubin 0.5 AST 18 ALT 20 Alkaline Phosphatase 116 Total Protein 7.0 Albumin 3.5
--- NOTE | 2024-03-16 12:21 | P.PNNP_ITS ---
Progress Note: A&P Assessment and Plan (1) End stage renal disease: Code(s): N18.6 - End stage renal disease Status: Chronic Assessment and Plan: * continue nightly CCPD * s/p 24 hour sessions of PD x 3 days (03/10, 03/11, and 03/12) with aggressive ultrafiltration/fluid removal * follow electrolytes, volume status, and clearance (2) Acute hypercapnic respiratory failure: Code(s): J96.02 - Acute respiratory failure with hypercapnia Status: Acute Assessment and Plan: * multifactorial etiology: * volume overload * pneumonia * influenza * questionable COPD * empiric antibiotics * on steroids * follow cultures - negative to date * high flow oxygen therapy during the day and BiPAP at night * follow respiratory status (3) Fluid overload: Qualifiers: Hypervolemia type: unspecified Qualified Code(s): E87.70 - Fluid overload, unspecified Code(s): E87.70 - Fluid overload, unspecified Status: Acute Assessment and Plan: * clinical improvement noted * as noted on presentation * s/p aggressive ultrafiltation/fluid removal with PD x 3 days (24 hour treatments) * almost 12 - 13L negative since admission * continue fluid and salt restriction (4) Influenza A: Code(s): J10.1 - Influenza due to other identified influenza virus with other respiratory manifestations Status: Acute Assessment and Plan: * positive testing noted * s/p Tamiflu 30 mg x 1 dose * respiratory isolation * supportive therapy (5) Hyponatremia: Code(s): E87.1 - Hypo-osmolality and hyponatremia Status: Acute Assessment and Plan: * sodium fluctuating * related to ESRD and increased free water intake + volume overload * on fluid restriction and fluid removal with PD (6) HTN (hypertension): Code(s): I10 - Essential (primary) hypertension Status: Chronic Assessment and Plan: * despite known history, relative hypotension noted previously * suspect low BP due to aggressive fluid removal/ultrafiltration with PD * BP medications with parameters * follow trend of hemodynamics Will continue to follow. L Subjective Date/time seen: 03/16/24 12:21 Interval history: Follow-up for end stage renal disease on peritoneal dialysis. Respiratory status/breathing appears stable and patient reports some improvement but still requiring significant oxygen support; tolerated peritoneal dialysis treatment overnight; major complaint is that of fatigue/weakness; no other acute complaints voiced at the time of my visit. Exam 2 Narrative: General: male who appears older than stated age in NAD Heart: normal S1 and S2; no rub Lungs: coarse with a few wheezes Abdomen: soft, nontender, nondistended, positive bowel sounds Extremities: no cyanosis or clubbing; trace edema Skin: no nodules Objective Data Vital Signs Vital Signs: Vital Signs Temp Pulse Resp BP Pulse Ox O2 Del Method O2 Flow Rate 03/16/24 12:00 97.9 F 99 22 H 130/98 H 95 High Flow Therapy with Na 35 03/16/24 10:00 94 03/16/24 08:30 96 20 03/16/24 08:20 94 20 03/16/24 08:20 92 High Flow Therapy with Na 35 03/16/24 08:00 97.8 F 94 18 110/84 91 03/16/24 08:00 91 High Flow Therapy with Na 35 03/16/24 08:00 93 03/16/24 07:39 99 16 118/89 35 03/16/24 05:23 91 03/16/24 04:00 97.9 F 96 15 99/80 L 94 03/16/24 04:00 96 03/16/24 04:00 92 20 92 High Flow Therapy with Na 35 03/16/24 02:25 92 19 03/16/24 02:19 87 19 03/16/24 02:00 97 03/16/24 00:00 100 23 H 132/90 96 03/16/24 00:00 100 03/15/24 23:43 102 H 20 92 High Flow Therapy with Na 35 03/15/24 20:36 108 H 16 03/15/24 20:30 103 H 16 03/15/24 20:30 94 High Flow Therapy with Na 35 03/15/24 20:00 97.6 F 108 H 13 132/90 97 03/15/24 20:00 108 H 03/15/24 19:53 105 H 20 96 High Flow Therapy with Na 35 03/15/24 18:42 117/95 H 03/15/24 17:59 99 Intake/Output Intake/Output: Intake & Output 03/13/24 03/14/24 03/15/24 03/16/24 23:59 23:59 23:59 23:59 Intake Total 2540 2740 1370 460 Output Total 1163 1011 4484 896 Balance [phone] -[phone] Meds/Results Medications: Active Medications Generic Name Dose Route Start Last Admin Trade Name Freq PRN Reason Stop Dose Admin Acetaminophen 650 mg 03/09/24 18:43 03/14/24 21:37 Acetaminophen 325 Mg Tablet PO 650 mg Q4H PRN Administration Mild Pain (1-3) or Fever Albuterol/Ipratropium 3 ml 03/11/24 02:00 03/16/24 15:33 Ipratropium 0.5 Mg/Albuterol Sulfate 2.5 Mg Ampul.Neb 3 Ml INHALATION 3 ml Q6HRT CARIDAD Administration Albuterol/Ipratropium 3 ml 03/11/24 00:48 Ipratropium 0.5 Mg/Albuterol Sulfate 2.5 Mg Ampul.Neb 3 Ml INHALATION Q2HRT PRN Shortness Of Breath Or Wheezing Azithromycin 500 mg 03/13/24 17:00 03/15/24 16:53 Azithromycin 250 Mg Tablet PO 03/17/24 17:01 500 mg DAILY@1700 CARIDAD Administration Buspirone HCl 10 mg 03/10/24 09:00 03/16/24 12:55 Buspirone Hcl 10 Mg Tablet BY MOUTH 10 mg TID CARIDAD Administration Calcium Acetate 2,668 mg 03/10/24 08:00 03/16/24 12:56 Calcium Acetate 667 Mg Tablet PO 2,668 mg TIDWM CARIDAD Administration Calcium Carbonate 200 mg 03/09/24 23:10 Calcium Carbonate (Tums) 500 Mg (200 Mg Elemental) PO HS PRN Indigestion Cinacalcet 90 mg 03/10/24 09:00 03/16/24 09:11 Cinacalcet 30 Mg Tablet PO 90 mg DAILY CARIDAD Administration Dextrose 12.5 gm 03/12/24 11:41 Dextrose 50% 25 Gm/50 Ml Syringe IV PUSH PRN PRN Hypoglycemia Protocol Diphenoxylate HCl/Atropine 1 tablet 03/12/24 11:39 Diphenoxylate/Atropine (*Crx) 2.5 Mg Tablet PO QID PRN Diarrhea Escitalopram Oxalate 10 mg 03/10/24 09:00 03/16/24 09:11 Escitalopram Oxalate 10 Mg Tablet PO 10 mg DAILY CARIDAD Administration Gentamicin Sulfate 1 applic 03/09/24 21:00 03/15/24 19:47 Gentamicin Sulfate 0.1% Cr 15 Gm Tube TOPICAL Not Given QHS CARIDAD Glucagon 1 mg 03/12/24 11:41 Glucagon For Inj 1 Mg Vial IM PRN PRN Hypoglycemia Protocol Glucose 15 gm 03/12/24 11:41 Glucose Oral Gel 15 Gm Of Glucse In 37.5 Gm Tube PO PRN PRN Hypoglycemia Protocol Heparin Sodium (Porcine) 5,000 units 03/10/24 14:00 03/16/24 12:56 Heparin Sodium 5,000 Units/Ml Vial SUB-Q 5,000 units Q8HR CARIDAD Administration Hydralazine HCl 10 mg 03/11/24 11:03 03/11/24 21:31 Hydralazine Hcl 20 Mg/Ml Vial IV PUSH 10 mg Q4H PRN Administration Blood Pressure - High Ceftriaxone Sodium 2 gm in 100 mls @ 200 mls/hr 03/11/24 10:00 03/16/24 09:45 Rocephin 2 Gm/Ns 100 Ml IVPB 03/17/24 09:29 Infused DAILY CARIDAD Infusion Dextrose 1,000 mls @ 100 mls/hr 03/12/24 11:41 Dextrose 5% 1,000 Ml IVPB PRN PRN Hypoglycemia Protocol Insulin Aspart 3 - 6 units 03/12/24 12:00 03/16/24 12:56 Insulin Aspart (*Bkc) 100 Units/Ml SUB-Q Not Given TIDWM CARIDAD Protocol Insulin Aspart 1 - 3 units 03/12/24 21:00 03/15/24 20:38 Insulin Aspart (*Bkc) 100 Units/Ml SUB-Q Not Given HS CARIDAD Protocol Labetalol HCl 100 mg 03/10/24 09:00 03/12/24 09:00 Labetalol Hcl 100 Mg Tablet PO Not Given Q12HR CARIDAD Melatonin 20 mg 03/10/24 21:00 03/10/24 20:33 Melatonin 5 Mg Tablet PO 20 mg QHS CARIDAD Administration Melatonin 5 mg 03/13/24 19:50 03/15/24 19:46 Melatonin 5 Mg Tablet PO 5 mg HS PRN Administration Insomnia Methylprednisolone Sodium Succinate 40 mg 03/15/24 09:00 03/16/24 09:12 Methylprednisolone Sod Succ 40 Mg Vial IV PUSH 03/19/24 08:59 40 mg QAM CARIDAD Administration Metolazone 5 mg 03/10/24 09:00 03/12/24 09:00 Metolazone 5 Mg Tablet PO Not Given DAILY [facility] *Home Med*Ferric 0 mg 03/10/24 08:00 03/16/24 12:56 Citrate [Auryxia] PO 04/09/24 07:59 840 mg 210 Mg Iron Tablet TIDWM CARIDAD Administration Nortriptyline HCl 50 mg 03/10/24 21:00 03/15/24 19:46 Nortriptyline Hcl 25 Mg Capsule PO 50 mg QHS CARIDAD Administration Ondansetron HCl 4 mg 03/09/24 18:43 03/16/24 13:03 Ondansetron Inj 4 Mg/2 Ml Vial IV PUSH 4 mg Q4H PRN Administration Nausea Pantoprazole Sodium 40 mg 03/10/24 09:00 03/10/24 08:14 Pantoprazole 40 Mg Tablet PO 40 mg QAM CARIDAD Administration Pantoprazole Sodium 40 mg 03/11/24 09:00 03/16/24 09:12 Pantoprazole Sodium Iv 40 Mg Vial IV PUSH 40 mg QAM CARIDAD Administration Torsemide 100 mg 03/11/24 17:00 03/12/24 09:00 Torsemide 20 Mg Tablet PO Not Given BID [facility] Radiology Results: ITS Impressions Chest X-Ray 03/13/24 05:51 Impression: Possible mild central pulmonary venous congestive change. Labs Labs: Laboratory Tests 03/16/24 04:26 03/16/24 04:26 Calcium 8.9 Phosphorus 5.3 H Magnesium 1.8 Total Bilirubin 0.5 AST 18 ALT 20 Alkaline Phosphatase 116 Total Protein 7.0 Albumin 3.5
[2024-03-16 13:03] LABS: Glucose Point of Care 133 mg/dl (65-105)
[2024-03-16] MEDS: ONDANSETRON INJ 4 MG/2 ML VIAL IV PUSH (13:03)
[2024-03-16] MEDS: AZITHROMYCIN 250 MG TABLET 500 MG PO (16:33)
[2024-03-16 16:39] LABS: Glucose Point of Care 159 mg/dl (65-105)
--- NOTE | 2024-03-16 18:00 | PC.NURSE ---
This patient, Real Rolon, was transferred to [[id number]] on 03/16/24 at 1800. Personal belongings sent with patient. Report given to [Bridget Capone RN]. Appropriate documentation sent with patient.
[2024-03-16] MEDS: GENTAMICIN SULFATE 0.1% CR 15 GM TUBE 1 APPLIC TOPICAL (19:14)
[2024-03-16 20:11] LABS: Glucose Point of Care 193 mg/dl (65-105)
[2024-03-16] MEDS: NORTRIPTYLINE HCL 25 MG CAPSULE 50 MG PO (20:52)
[2024-03-16] MEDS: MELATONIN 5 MG TABLET PO (20:52)
[2024-03-17] VITALS (23 sets, daily range): BP systolic 89–139; BP diastolic 68–103; PULSE 88–116; RESP 14–20; TEMP 36.4–37; O2SAT 92–100
[2024-03-17] MEDS: IPRATROPIUM 0.5 MG/ALBUTEROL SULFATE 2.5 MG AMPUL.NEB 3 ML INHALATION ×4 (03:10→21:02)
[2024-03-17 05:12] LABS: Hematocrit 42.6 % (42.0-52.0); Hemoglobin 13.7 g/dL (14.0-18.0); Mean Corpuscular HGB Conc 32.2 g/dl (32-36); Mean Corpuscular Hemoglobin 31.7 pg (26-34); Mean Corpuscular Volume 98.6 fl (80-100); Mean Platelet Volume 9.7 fl (7.4-10.4); Platelet Count Result 377 k/mm3 (150-375); Red Blood Count 4.32 M/mm3 (4.6-6.20); Red Cell Distribution Width 13.4 % (11.5-14.5); White Blood Count 22.9 K/mm3 (4.5-10.0)
[2024-03-17] MEDS: HEPARIN SODIUM 5,000 UNITS/ML VIAL 5000 UNITS SUB-Q ×3 (05:21→21:31)
[2024-03-17 05:26] LABS: Alanine Aminotransferase 26 U/L (6-50); Albumin Level 3.5 g/dL (3.5-5.1); Alkaline Phosphatase 110 U/L (38-126); Anion Gap 20 mmol/L (4-12); Aspartate Amino Transferase 22 U/L (17-59); Bilirubin,Total 0.5 mg/dL (0.2-1.3); Blood Urea Nitrogen 80 mg/dL (9-20); Calcium 8.7 mg/dL (8.4-10.2); Carbon Dioxide 21 mmol/L (22-30); Chloride 93 mmol/L (98-107); Estimated CRCL calculation 7 ml/min; Estimated Glomerular Filt Rate 4; Glucose 138 mg/dL (65-110); Magnesium 1.9 mg/dL (1.6-2.3); Potassium 3.1 mmol/L (3.4-5.0); Sodium 134 mmol/L (137-145)
[2024-03-17 07:50] LABS: Glucose Point of Care 113 mg/dl (65-105)
[2024-03-17] MEDS: cefTRIAXone 2 GM/NS 100 ML 2 GM/100 ML BAG IVPB (10:22)
[2024-03-17] MEDS: methylPREDNISolone SOD SUCC 40 MG VIAL IV PUSH (10:24)
[2024-03-17] MEDS: PANTOPRAZOLE SODIUM IV 40 MG VIAL IV PUSH (10:24)
[2024-03-17] MEDS: busPIRone HCL 10 MG TABLET BY MOUTH ×3 (10:25→16:16)
[2024-03-17] MEDS: ESCITALOPRAM OXALATE 10 MG TABLET PO (10:25)
[2024-03-17] MEDS: CINACALCET 30 MG TABLET 90 MG PO (10:34)
--- NOTE | 2024-03-17 10:37 | P.PNNP_ITS ---
Progress Note: A&P Assessment and Plan (1) End stage renal disease: Code(s): N18.6 - End stage renal disease Status: Chronic Assessment and Plan: * continue nightly CCPD * s/p 24 hour sessions of PD x 3 days (03/10, 03/11, and 03/12) with aggressive ultrafiltration/fluid removal * follow electrolytes, volume status, and clearance (2) Acute hypercapnic respiratory failure: Code(s): J96.02 - Acute respiratory failure with hypercapnia Status: Acute Assessment and Plan: * multifactorial etiology: * volume overload * pneumonia * influenza * questionable COPD * empiric antibiotics * on steroids * follow cultures - negative to date * high flow oxygen therapy during the day and BiPAP at night * follow respiratory status (3) Fluid overload: Qualifiers: Hypervolemia type: unspecified Qualified Code(s): E87.70 - Fluid overload, unspecified Code(s): E87.70 - Fluid overload, unspecified Status: Acute Assessment and Plan: * clinical improvement noted * as noted on presentation * s/p aggressive ultrafiltation/fluid removal with PD x 3 days (24 hour treatments) * almost 12 - 13L negative since admission * continue fluid and salt restriction (4) Influenza A: Code(s): J10.1 - Influenza due to other identified influenza virus with other respiratory manifestations Status: Acute Assessment and Plan: * positive testing noted * s/p Tamiflu 30 mg x 1 dose * respiratory isolation * supportive therapy (5) Hyponatremia: Code(s): E87.1 - Hypo-osmolality and hyponatremia Status: Acute Assessment and Plan: * sodium fluctuating * related to ESRD and increased free water intake + volume overload * on fluid restriction and fluid removal with PD (6) HTN (hypertension): Code(s): I10 - Essential (primary) hypertension Status: Chronic Assessment and Plan: * despite known history, relative hypotension noted previously * suspect low BP due to aggressive fluid removal/ultrafiltration with PD * BP medications with parameters * follow trend of hemodynamics Will continue to follow. L Subjective Date/time seen: 03/17/24 10:37 Interval history: Follow-up for end stage renal disease on peritoneal dialysis. Moved out the ICU yesterday; tolerated peritoneal dialysis treatment overnight although dialysis reports some lost dwell time and associated low UF alarms; breathing/respiratory status slowly improving with less oxygen requirements noted; major complaint is that of generalized fatigue/weakness; no acute distress noted at the time of my visit. Exam 2 Narrative: General: male who appears older than stated age in NAD Heart: normal S1 and S2; no rub Lungs: coarse breath sounds Abdomen: soft, nontender, nondistended, positive bowel sounds Extremities: no cyanosis or clubbing; trace edema Skin: warm and intact Objective Data Vital Signs Vital Signs: Vital Signs Temp Pulse Resp BP Pulse Ox O2 Del Method O2 Flow Rate 03/17/24 10:36 97.6 F 96 17 113/81 95 03/17/24 09:18 104/71 03/17/24 08:28 97.9 F 98 16 102/70 93 03/17/24 07:48 97 18 03/17/24 07:47 98.6 F 96 20 89/71 L 35 03/17/24 07:30 101 H 20 03/17/24 07:30 93 High Flow Therapy with Na 30 03/17/24 06:00 94 03/17/24 04:51 97.7 F 98 20 100/68 93 03/17/24 04:00 98 03/17/24 04:00 92 High Flow Therapy with Na 30 03/17/24 03:10 88 20 03/17/24 02:00 102 H 03/17/24 00:00 103 H 03/17/24 00:00 93 High Flow Therapy with Na 30 03/16/24 23:49 97.6 F 102 H 20 108/72 100 03/16/24 22:00 19 94 High Flow Therapy with Na 30 03/16/24 22:00 106 H 03/16/24 21:19 92 20 03/16/24 21:08 90 20 03/16/24 20:00 111 H 03/16/24 20:00 95 High Flow Therapy with Na 30 03/16/24 19:54 97.8 F 116 H 20 112/75 93 03/16/24 18:59 35 03/16/24 18:27 97.9 F 106 H 20 104/76 96 03/16/24 18:00 101 H 03/16/24 16:00 103 H 03/16/24 16:00 97.8 F 103 H 20 130/89 95 03/16/24 16:00 95 High Flow Therapy with Na 35 03/16/24 15:33 92 20 Intake/Output Intake/Output: Intake & Output 03/14/24 03/15/24 03/16/24 03/17/24 23:59 23:59 23:59 23:59 Intake Total 2740 1370 1200 490 Output Total 1011 9224 896 -88 Balance 1729 -6064 304 578 Meds/Results Medications: Active Medications Generic Name Dose Route Start Last Admin Trade Name Freq PRN Reason Stop Dose Admin Acetaminophen 650 mg 03/09/24 18:43 03/14/24 21:37 Acetaminophen 325 Mg Tablet PO 650 mg Q4H PRN Administration Mild Pain (1-3) or Fever Albuterol/Ipratropium 3 ml 03/11/24 02:00 03/17/24 13:57 Ipratropium 0.5 Mg/Albuterol Sulfate 2.5 Mg Ampul.Neb 3 Ml INHALATION 3 ml Q6HRT CARIDAD Administration Albuterol/Ipratropium 3 ml 03/11/24 00:48 Ipratropium 0.5 Mg/Albuterol Sulfate 2.5 Mg Ampul.Neb 3 Ml INHALATION Q2HRT PRN Shortness Of Breath Or Wheezing Azithromycin 500 mg 03/13/24 17:00 03/16/24 16:33 Azithromycin 250 Mg Tablet PO 03/17/24 17:01 500 mg DAILY@1700 CARIDAD Administration Buspirone HCl 10 mg 03/10/24 09:00 03/17/24 12:49 Buspirone Hcl 10 Mg Tablet BY MOUTH 10 mg TID CARIDAD Administration Calcium Acetate 2,668 mg 03/10/24 08:00 03/17/24 12:48 Calcium Acetate 667 Mg Tablet PO 2,668 mg TIDWM CARIDAD Administration Calcium Carbonate 200 mg 03/09/24 23:10 Calcium Carbonate (Tums) 500 Mg (200 Mg Elemental) PO HS PRN Indigestion Cinacalcet 90 mg 03/10/24 09:00 03/17/24 10:34 Cinacalcet 30 Mg Tablet PO 90 mg DAILY CARIDAD Administration Dextrose 12.5 gm 03/12/24 11:41 Dextrose 50% 25 Gm/50 Ml Syringe IV PUSH PRN PRN Hypoglycemia Protocol Diphenoxylate HCl/Atropine 1 tablet 03/12/24 11:39 Diphenoxylate/Atropine (*Crx) 2.5 Mg Tablet PO QID PRN Diarrhea Escitalopram Oxalate 10 mg 03/10/24 09:00 03/17/24 10:25 Escitalopram Oxalate 10 Mg Tablet PO 10 mg DAILY CARIDAD Administration Gentamicin Sulfate 1 applic 03/09/24 21:00 03/16/24 19:14 Gentamicin Sulfate 0.1% Cr 15 Gm Tube TOPICAL 1 applic QHS CARIDAD Administration Glucagon 1 mg 03/12/24 11:41 Glucagon For Inj 1 Mg Vial IM PRN PRN Hypoglycemia Protocol Glucose 15 gm 03/12/24 11:41 Glucose Oral Gel 15 Gm Of Glucse In 37.5 Gm Tube PO PRN PRN Hypoglycemia Protocol Heparin Sodium (Porcine) 5,000 units 03/10/24 14:00 03/17/24 05:21 Heparin Sodium 5,000 Units/Ml Vial SUB-Q 5,000 units Q8HR CARIDAD Administration Hydralazine HCl 10 mg 03/11/24 11:03 03/11/24 21:31 Hydralazine Hcl 20 Mg/Ml Vial IV PUSH 10 mg Q4H PRN Administration Blood Pressure - High Dextrose 1,000 mls @ 100 mls/hr 03/12/24 11:41 Dextrose 5% 1,000 Ml IVPB PRN PRN Hypoglycemia Protocol Insulin Aspart 3 - 6 units 03/12/24 12:00 03/17/24 12:46 Insulin Aspart (*Bkc) 100 Units/Ml SUB-Q Not Given TIDWM CARIDAD Protocol Insulin Aspart 1 - 3 units 03/12/24 21:00 03/16/24 20:53 Insulin Aspart (*Bkc) 100 Units/Ml SUB-Q Not Given HS CARIDAD Protocol Labetalol HCl 100 mg 03/10/24 09:00 03/12/24 09:00 Labetalol Hcl 100 Mg Tablet PO Not Given Q12HR CARIDAD Melatonin 20 mg 03/10/24 21:00 03/10/24 20:33 Melatonin 5 Mg Tablet PO 20 mg QHS CARIDAD Administration Melatonin 5 mg 03/13/24 19:50 03/16/24 20:52 Melatonin 5 Mg Tablet PO 5 mg HS PRN Administration Insomnia Methylprednisolone Sodium Succinate 40 mg 03/15/24 09:00 03/17/24 10:24 Methylprednisolone Sod Succ 40 Mg Vial IV PUSH 03/19/24 08:59 40 mg QAM CARIDAD Administration Metolazone 5 mg 03/10/24 09:00 03/12/24 09:00 Metolazone 5 Mg Tablet PO Not Given DAILY CARIDAD *Home Med*Ferric 0 mg 03/10/24 08:00 03/17/24 12:51 Citrate [Auryxia] PO 04/09/24 07:59 840 mg 210 Mg Iron Tablet TIDWM CARIDAD Administration Nortriptyline HCl 50 mg 03/10/24 21:00 03/16/24 20:52 Nortriptyline Hcl 25 Mg Capsule PO 50 mg QHS CARIDAD Administration Ondansetron HCl 4 mg 03/09/24 18:43 03/16/24 13:03 Ondansetron Inj 4 Mg/2 Ml Vial IV PUSH 4 mg Q4H PRN Administration Nausea Pantoprazole Sodium 40 mg 03/10/24 09:00 03/10/24 08:14 Pantoprazole 40 Mg Tablet PO 40 mg QAM CARIDAD Administration Pantoprazole Sodium 40 mg 03/11/24 09:00 03/17/24 10:24 Pantoprazole Sodium Iv 40 Mg Vial IV PUSH 40 mg QAM CARIDAD Administration Torsemide 100 mg 03/11/24 17:00 03/12/24 09:00 Torsemide 20 Mg Tablet PO Not Given BID [facility] Radiology Results: ITS Impressions Chest X-Ray 03/13/24 05:51 Impression: Possible mild central pulmonary venous congestive change. Labs Labs: Laboratory Tests 03/17/24 04:47 03/17/24 04:47 Calcium 8.7 Phosphorus 5.0 H Magnesium 1.9 Total Bilirubin 0.5 AST 22 ALT 26 Alkaline Phosphatase 110 Total Protein 6.0 L Albumin 3.5 Microbiology 03/11/24 09:03 Blood Blood Culture - Final 03/11/24 05:54 Blood Blood Culture - Final
[2024-03-17] MEDS: CALCIUM ACETATE 667 MG TABLET 2668 MG PO ×3 (10:39→16:14)
[2024-03-17] MEDS: IRON PO ×3 (10:59→16:24)
[2024-03-17] MEDS: FERRIC CITRATE 210 MG PO ×3 (10:59→16:24)
--- NOTE | 2024-03-17 11:10 | PCNWS ---
Weekly nutritional screen. Patient is tolerating current renal diet with adequate intake, 50-100% meals. Declines supplements. No weight loss reported. No nutritional needs at this time.
[2024-03-17 11:51] LABS: Glucose Point of Care 123 mg/dl (65-105)
--- NOTE | 2024-03-17 12:37 | P.PNIM_ITS ---
Progress Note: A&P Assessment and Plan (1) Acute hypercapnic respiratory failure: Code(s): J96.02 - Acute respiratory failure with hypercapnia Status: Acute Assessment and Plan: Acute hypercapnic respiratory failure likely related to volume overload, influenza A pneumonia, questionable COPD as patient has a history of tobacco use and currently smokes marijuana -03/11: Transferred from medical floor to ICU for hypoxic and hypercapnic respiratory failure, wheezing, volume overload, possible pneumonia -03/09: Influenza A positive Patient is on continue course ceftriaxone and vancomycin. Will conclude az ithromycin 03/17/2024 -continue Tamiflu Patient on high-flow oxygen/Airvo Steroid daily till 03/19/2024 -incentive spirometry, up in chair (2) End-stage renal disease on peritoneal dialysis: Code(s): N18.6 - End stage renal disease; Z99.2 - Dependence on renal dialysis Status: Acute Assessment and Plan: End-stage renal disease on peritoneal dialysis PD schedule per press room supervisor patient also is on torsemide, metolazone at home, will continue patient on fluid restriction per press room supervisor (3) Fluid overload: Qualifiers: Hypervolemia type: unspecified Qualified Code(s): E87.70 - Fluid overload, unspecified Code(s): E87.70 - Fluid overload, unspecified Status: Acute Assessment and Plan: Likely related to incomplete peritoneal dialysis at home -continue PD per press room supervisor -improved (4) HTN (hypertension): Code(s): I10 - Essential (primary) hypertension Status: Chronic Assessment and Plan: Essential hypertension, hold amlodipine, labetalol and blood pressures are within normal limits for now NT p.r.n. hydralazine (5) Polyneuropathy: Code(s): G62.9 - Polyneuropathy, unspecified Status: Acute Assessment and Plan: Off gabapentin since patient has been having tremor-like/asterixis movements -continue nortriptyline (6) Influenza A: Code(s): J10.1 - Influenza due to other identified influenza virus with other respiratory manifestations Status: Acute Assessment and Plan: Treated with Tamiflu x2 does due to peritoneal dialysis (7) Electrolyte abnormality: Code(s): E87.8 - Other disorders of electrolyte and fluid balance, not elsewhere classified Status: Acute Assessment and Plan: Replace low potassium Plan DVT prophylaxis: Heparin SQ Stress ulcer prophylaxis: Protonix Nutrition: Diet ordered Code Status: Full code Subjective Date/time seen: 03/17/24 12:37 Interval history: Feeling better. Oxygen requirement lowered on Airvo. 30 liter/minute at 39% FiO2 feeling stronger. Family at bedside. He lost quite a bit await he mentions. Leg swelling has improved. Review of Systems Review of Systems: All systems reviewed & are unremarkable except as noted in HPI and below Exam Narrative: GENERAL: Well-appearing, in no acute distress. Well-nourished. - EYES: EOMI. Anicteric. - HENT: Moist mucous membranes. - LUNGS: Coarse breath sound bilaterall y no wheezing, rhonchi, or rales. - CARDIOVASCULAR: Regular rate and rhyth m. No murmur. No JVD. - ABDOMEN: Soft, non-tender and non-dist ended. No palpable masses. - EXTREMITIES: No edema. Peripheral puls es 2+. Non-tender. - NEUROLOGIC: No focal neurological defi cits. CN II-XII grossly intact. General weakness - PSYCHIATRIC: Awake, Alert and oriented x 3. Appropriate mood and affect. - SKIN: No rashes or lesions. Warm. - LYMPH: No cervical lymphadenopathy. Objective Data Vital Signs Vital Signs: Vital Signs - 24 hr 03/16/24 14:00 03/16/24 15:33 03/16/24 16:00 Temperature Pulse Rate 100 92 Respiratory Rate 20 Blood Pressure Pulse Oximetry 95 Oxygen Delivery High Flow Therapy with Na Oxygen Flow Rate 35 Fraction of Inspired Oxygen 45 03/16/24 16:00 03/16/24 16:00 03/16/24 18:00 Temperature 97.8 F Pulse Rate 103 H 103 H 101 H Respiratory Rate 20 Blood Pressure 130/89 Pulse Oximetry 95 Oxygen Delivery Oxygen Flow Rate Fraction of Inspired Oxygen 03/16/24 18:27 03/16/24 18:59 03/16/24 19:54 Temperature 97.9 F 97.8 F Pulse Rate 106 H 116 H Respiratory Rate 20 20 Blood Pressure 104/76 112/75 Pulse Oximetry 96 93 Oxygen Delivery Oxygen Flow Rate 35 Fraction of Inspired Oxygen 03/16/24 20:00 03/16/24 20:00 03/16/24 21:08 Temperature Pulse Rate 111 H 90 Respiratory Rate 20 Blood Pressure Pulse Oximetry 95 Oxygen Delivery High Flow Therapy with Na Oxygen Flow Rate 30 Fraction of Inspired Oxygen 34 03/16/24 21:19 03/16/24 22:00 03/16/24 22:00 Temperature Pulse Rate 92 106 H Respiratory Rate 20 19 Blood Pressure Pulse Oximetry 94 Oxygen Delivery High Flow Therapy with Na Oxygen Flow Rate 30 Fraction of Inspired Oxygen 35 03/16/24 23:49 03/17/24 00:00 03/17/24 00:00 Temperature 97.6 F Pulse Rate 102 H 103 H Respiratory Rate 20 Blood Pressure 108/72 Pulse Oximetry 100 93 Oxygen Delivery High Flow Therapy with Na Oxygen Flow Rate 30 Fraction of Inspired Oxygen 34 03/17/24 02:00 03/17/24 03:10 03/17/24 04:00 Temperature Pulse Rate 102 H 88 Respiratory Rate 20 Blood Pressure Pulse Oximetry 92 Oxygen Delivery High Flow Therapy with Na Oxygen Flow Rate 30 Fraction of Inspired Oxygen 35 03/17/24 04:00 03/17/24 04:51 03/17/24 06:00 Temperature 97.7 F Pulse Rate 98 98 94 Respiratory Rate 20 Blood Pressure 100/68 Pulse Oximetry 93 Oxygen Delivery Oxygen Flow Rate Fraction of Inspired Oxygen 03/17/24 07:30 03/17/24 07:30 03/17/24 07:47 Temperature 98.6 F Pulse Rate 101 H 96 Respiratory Rate 20 20 Blood Pressure 89/71 L Pulse Oximetry 93 Oxygen Delivery High Flow Therapy with Na Oxygen Flow Rate 30 35 Fraction of Inspired Oxygen 35 03/17/24 07:48 03/17/24 08:28 03/17/24 09:18 Temperature 97.9 F Pulse Rate 97 98 Respiratory Rate 18 16 Blood Pressure 102/70 104/71 Pulse Oximetry 93 Oxygen Delivery Oxygen Flow Rate Fraction of Inspired Oxygen 03/17/24 11:36 Temperature 97.6 F Pulse Rate 96 Respiratory Rate 17 Blood Pressure 113/81 Pulse Oximetry 95 Oxygen Delivery Oxygen Flow Rate Fraction of Inspired Oxygen Intake/Output Intake/Output: Intake & Output 03/14/24 03/15/24 03/16/24 03/17/24 23:59 23:59 23:59 23:59 Intake Total 2740 1370 1200 250 Output Total 1011 0254 896 -88 Balance 1729 -3114 304 338 Meds/Results Medications: Active Medications Generic Name Dose Route Start Last Admin Trade Name Freq PRN Reason Stop Dose Admin Acetaminophen 650 mg 03/09/24 18:43 03/14/24 21:37 Acetaminophen 325 Mg Tablet PO 650 mg Q4H PRN Administration Mild Pain (1-3) or Fever Albuterol/Ipratropium 3 ml 03/11/24 02:00 03/17/24 07:30 Ipratropium 0.5 Mg/Albuterol Sulfate 2.5 Mg Ampul.Neb 3 Ml INHALATION 3 ml Q6HRT CARIDAD Administration Albuterol/Ipratropium 3 ml 03/11/24 00:48 Ipratropium 0.5 Mg/Albuterol Sulfate 2.5 Mg Ampul.Neb 3 Ml INHALATION Q2HRT PRN Shortness Of Breath Or Wheezing Azithromycin 500 mg 03/13/24 17:00 03/16/24 16:33 Azithromycin 250 Mg Tablet PO 03/17/24 17:01 500 mg DAILY@1700 CARIDAD Administration Buspirone HCl 10 mg 03/10/24 09:00 03/17/24 10:25 Buspirone Hcl 10 Mg Tablet BY MOUTH 10 mg TID CARIDAD Administration Calcium Acetate 2,668 mg 03/10/24 08:00 03/17/24 10:39 Calcium Acetate 667 Mg Tablet PO 2,668 mg TIDWM CARIDAD Administration Calcium Carbonate 200 mg 03/09/24 23:10 Calcium Carbonate (Tums) 500 Mg (200 Mg Elemental) PO HS PRN Indigestion Cinacalcet 90 mg 03/10/24 09:00 03/17/24 10:34 Cinacalcet 30 Mg Tablet PO 90 mg DAILY CARIDAD Administration Dextrose 12.5 gm 03/12/24 11:41 Dextrose 50% 25 Gm/50 Ml Syringe IV PUSH PRN PRN Hypoglycemia Protocol Diphenoxylate HCl/Atropine 1 tablet 03/12/24 11:39 Diphenoxylate/Atropine (*Crx) 2.5 Mg Tablet PO QID PRN Diarrhea Escitalopram Oxalate 10 mg 03/10/24 09:00 03/17/24 10:25 Escitalopram Oxalate 10 Mg Tablet PO 10 mg DAILY CARIDAD Administration Gentamicin Sulfate 1 applic 03/09/24 21:00 03/16/24 19:14 Gentamicin Sulfate 0.1% Cr 15 Gm Tube TOPICAL 1 applic QHS CARIDAD Administration Glucagon 1 mg 03/12/24 11:41 Glucagon For Inj 1 Mg Vial IM PRN PRN Hypoglycemia Protocol Glucose 15 gm 03/12/24 11:41 Glucose Oral Gel 15 Gm Of Glucse In 37.5 Gm Tube PO PRN PRN Hypoglycemia Protocol Heparin Sodium (Porcine) 5,000 units 03/10/24 14:00 03/17/24 05:21 Heparin Sodium 5,000 Units/Ml Vial SUB-Q 5,000 units Q8HR CARIDAD Administration Hydralazine HCl 10 mg 03/11/24 11:03 03/11/24 21:31 Hydralazine Hcl 20 Mg/Ml Vial IV PUSH 10 mg Q4H PRN Administration Blood Pressure - High Dextrose 1,000 mls @ 100 mls/hr 03/12/24 11:41 Dextrose 5% 1,000 Ml IVPB PRN PRN Hypoglycemia Protocol Insulin Aspart 3 - 6 units 03/12/24 12:00 03/17/24 10:39 Insulin Aspart (*Bkc) 100 Units/Ml SUB-Q Not Given TIDWM CARIDAD Protocol Insulin Aspart 1 - 3 units 03/12/24 21:00 03/16/24 20:53 Insulin Aspart (*Bkc) 100 Units/Ml SUB-Q Not Given HS CARIDAD Protocol Labetalol HCl 100 mg 03/10/24 09:00 03/12/24 09:00 Labetalol Hcl 100 Mg Tablet PO Not Given Q12HR CARIDAD Melatonin 20 mg 03/10/24 21:00 03/10/24 20:33 Melatonin 5 Mg Tablet PO 20 mg QHS CARIDAD Administration Melatonin 5 mg 03/13/24 19:50 03/16/24 20:52 Melatonin 5 Mg Tablet PO 5 mg HS PRN Administration Insomnia Methylprednisolone Sodium Succinate 40 mg 03/15/24 09:00 03/17/24 10:24 Methylprednisolone Sod Succ 40 Mg Vial IV PUSH 03/19/24 08:59 40 mg QAM CARIDAD Administration Metolazone 5 mg 03/10/24 09:00 03/12/24 09:00 Metolazone 5 Mg Tablet PO Not Given DAILY CARIDAD *Home Med*Ferric 0 mg 03/10/24 08:00 03/17/24 10:59 Citrate [Auryxia] PO 04/09/24 07:59 210 mg 210 Mg Iron Tablet TIDWM CARIDAD Administration Nortriptyline HCl 50 mg 03/10/24 21:00 03/16/24 20:52 Nortriptyline Hcl 25 Mg Capsule PO 50 mg QHS CARIDAD Administration Ondansetron HCl 4 mg 03/09/24 18:43 03/16/24 13:03 Ondansetron Inj 4 Mg/2 Ml Vial IV PUSH 4 mg Q4H PRN Administration Nausea Pantoprazole Sodium 40 mg 03/10/24 09:00 03/10/24 08:14 Pantoprazole 40 Mg Tablet PO 40 mg QAM CARIDAD Administration Pantoprazole Sodium 40 mg 03/11/24 09:00 03/17/24 10:24 Pantoprazole Sodium Iv 40 Mg Vial IV PUSH 40 mg QAM CARIDAD Administration Torsemide 100 mg 03/11/24 17:00 03/12/24 09:00 Torsemide 20 Mg Tablet PO Not Given BID [facility] Radiology Results: ITS Impressions Chest X-Ray 03/13/24 05:51 Impression: Possible mild central pulmonary venous congestive change. Labs Labs: Laboratory Results - last 24 hr 03/16/24 03/16/24 03/16/24 12:55 16:33 19:38 WBC RBC Hgb Hct MCV MCH MCHC RDW Plt Count MPV Sodium Potassium Chloride Carbon Dioxide Anion Gap BUN Creatinine Estim Creat Clear Calc Estimated GFR Glucose POC Capillary Glucose 133 H 159 H 193 H Calcium Phosphorus Magnesium Total Bilirubin AST ALT Alkaline Phosphatase Total Protein Albumin 03/17/24 03/17/24 03/17/24 04:47 07:48 11:34 WBC 22.9 H RBC 4.32 L Hgb 13.7 L Hct 42.6 MCV 98.6 MCH 31.7 MCHC 32.2 RDW 13.4 Plt Count 377 H MPV 9.7 Sodium 134 L Potassium 3.1 L Chloride 93 L Carbon Dioxide 21 L Anion Gap 20 H BUN 80 H Creatinine 13.13 H Estim Creat Clear Calc 7 Estimated GFR 4 L Glucose 138 H POC Capillary Glucose 113 H 123 H Calcium 8.7 Phosphorus 5.0 H Magnesium 1.9 Total Bilirubin 0.5 AST 22 ALT 26 Alkaline Phosphatase 110 Total Protein 6.0 L Albumin 3.5
[2024-03-17] MEDS: POTASSIUM CHLORIDE 20 MEQ ER TABLET 40 MEQ PO (12:54)
[2024-03-17] MEDS: WATER FOR IRRIGATION, STERILE 1,000 ML BOTTLE 1000 ML (14:02)
[2024-03-17] MEDS: AZITHROMYCIN 250 MG TABLET 500 MG PO (16:15)
[2024-03-17 16:39] LABS: Glucose Point of Care 153 mg/dl (65-105)
[2024-03-17] MEDS: NORTRIPTYLINE HCL 25 MG CAPSULE 50 MG PO (21:30)
[2024-03-17] MEDS: GENTAMICIN SULFATE 0.1% CR 15 GM TUBE 1 APPLIC TOPICAL (21:33)
[2024-03-17] MEDS: DIPHENOXYLATE/ATROPINE (*CRX) 2.5 MG TABLET 1 TABLET PO (21:33)
[2024-03-17 21:38] LABS: Glucose Point of Care 179 mg/dl (65-105)
[2024-03-17] MEDS: MELATONIN 5 MG TABLET PO (21:38)
[2024-03-17 22:47] LABS: Albumin 2.9 g/dL (3.8-4.8); Alpha 1 Globulin 0.4 g/dL (0.2-0.3); Alpha 2 Globulin 0.9 g/dL (0.5-0.9); Beta 1 Globulin 0.4 g/dL (0.4-0.6); Gamma Globulin 0.6 g/dL (0.8-1.7)
[2024-03-18] VITALS (25 sets, daily range): BP systolic 98–141; BP diastolic 62–86; PULSE 75–114; RESP 14–20; TEMP 36.4–37.2; O2SAT 90–100
[2024-03-18] MEDS: IPRATROPIUM 0.5 MG/ALBUTEROL SULFATE 2.5 MG AMPUL.NEB 3 ML INHALATION ×4 (01:59→21:07)
[2024-03-18 04:44] LABS: Hemoglobin 13.2 g/dL (14.0-18.0); Mean Corpuscular HGB Conc 32.2 g/dl (32-36); Mean Corpuscular Hemoglobin 32.5 pg (26-34); Mean Platelet Volume 9.9 fl (7.4-10.4); Platelet Count Result 329 k/mm3 (150-375); Red Blood Count 4.06 M/mm3 (4.6-6.20); Red Cell Distribution Width 13.6 % (11.5-14.5); White Blood Count 25.4 K/mm3 (4.5-10.0)
[2024-03-18 04:56] LABS: Alanine Aminotransferase 54 U/L (6-50); Albumin Level 3.5 g/dL (3.5-5.1); Alkaline Phosphatase 116 U/L (38-126); Anion Gap 18 mmol/L (4-12); Aspartate Amino Transferase 31 U/L (17-59); Bilirubin,Total 0.4 mg/dL (0.2-1.3); Blood Urea Nitrogen 80 mg/dL (9-20); Calcium 8.8 mg/dL (8.4-10.2); Carbon Dioxide 20 mmol/L (22-30); Chloride 95 mmol/L (98-107); Estimated CRCL calculation 7 ml/min; Estimated Glomerular Filt Rate 4; Glucose 127 mg/dL (65-110); Phosphorus 4.9 mg/dL (2.5-4.5); Potassium 3.1 mmol/L (3.4-5.0); Sodium 133 mmol/L (137-145)
[2024-03-18] MEDS: HEPARIN SODIUM 5,000 UNITS/ML VIAL 5000 UNITS SUB-Q ×3 (06:05→21:44)
[2024-03-18 08:40] LABS: Glucose Point of Care 115 mg/dl (65-105)
--- NOTE | 2024-03-18 10:03 | P.PNNP_ITS ---
Progress Note: A&P Assessment and Plan (1) End stage renal disease: Code(s): N18.6 - End stage renal disease Status: Chronic Assessment and Plan: * continue nightly CCPD * s/p 24 hour sessions of PD x 3 days (03/10, 03/11, and 03/12) with aggressive ultrafiltration/fluid removal * follow electrolytes, volume status, and clearance * replete electrolytes anss needed (2) Acute hypercapnic respiratory failure: Code(s): J96.02 - Acute respiratory failure with hypercapnia Status: Acute Assessment and Plan: * multifactorial etiology: * volume overload * pneumonia * influenza * questionable COPD * empiric antibiotics on admission - off currently * off steroids now (last dose today) * follow cultures - negative to date * wean supplemental oxygen as tolerated * follow respiratory status (3) Fluid overload: Qualifiers: Hypervolemia type: unspecified Qualified Code(s): E87.70 - Fluid overload, unspecified Code(s): E87.70 - Fluid overload, unspecified Status: Acute Assessment and Plan: * clinical improvement noted * as noted on presentation * s/p aggressive ultrafiltation/fluid removal with PD x 3 days (24 hour treatments) * almost 12 - 13L negative following this intervention * continue fluid and salt restriction (4) Influenza A: Code(s): J10.1 - Influenza due to other identified influenza virus with other respiratory manifestations Status: Acute Assessment and Plan: * positive testing noted * s/p Tamiflu 30 mg x 1 dose * respiratory isolation * supportive therapy (5) Hyponatremia: Code(s): E87.1 - Hypo-osmolality and hyponatremia Status: Acute Assessment and Plan: * sodium fluctuating * related to ESRD and increased free water intake + volume overload * on fluid restriction and fluid removal with PD (6) HTN (hypertension): Code(s): I10 - Essential (primary) hypertension Status: Chronic Assessment and Plan: * despite known history, relative hypotension noted previously * suspect low BP due to aggressive fluid removal/ultrafiltration with PD * BP medications with parameters * follow trend of hemodynamics Will continue to follow. L Subjective Date/time seen: 03/18/24 10:03 Interval history: Follow-up for end stage renal disease on peritoneal dialysis. Tolerated peritoneal dialysis treatment overnight without any issues or problems (CCPD supervised and seen at 9:55AM); breathing/respiratory status continues to slowly improve/stabilize (on 2L by nasal cannula with ongoing weaning by nursing); no apparent distress noted and feels reasonably well; no other acute complaints to report at the time of my visit; family at bedside and we discussed the situation. Exam 2 Narrative: General: male who appears older than stated age in NAD Heart: normal S1 and S2; no rub Lungs: coarse breath sounds Abdomen: soft, nontender, nondistended, positive bowel sounds Extremities: no cyanosis or clubbing; trace edema Skin: no rash Objective Data Vital Signs Vital Signs: Vital Signs Temp Pulse Resp BP Pulse Ox O2 Del Method O2 Flow Rate 03/18/24 10:00 105 H Nasal Cannula 2 03/18/24 08:00 109 H 03/18/24 08:00 100 High Flow Nasal Cannula 2 03/18/24 08:00 99.0 F 100 18 116/80 100 03/18/24 07:50 93 20 03/18/24 07:42 92 20 03/18/24 07:42 92 20 96 High Flow Nasal Cannula 5 03/18/24 07:33 97.6 F 92 18 98/62 L 5 03/18/24 06:00 91 03/18/24 04:00 97.5 F L 99 18 116/79 97 03/18/24 04:00 97 03/18/24 04:00 96 High Flow Nasal Cannula 5 03/18/24 02:14 103 H 18 03/18/24 02:02 95 High Flow Nasal Cannula 5 03/18/24 02:00 99 03/18/24 01:59 99 18 03/18/24 00:00 98.6 F 75 18 132/76 92 03/18/24 00:00 102 H 03/18/24 00:00 96 High Flow Nasal Cannula 5 03/17/24 22:00 106 H 03/17/24 21:27 116 H 16 03/17/24 21:03 99 High Flow Nasal Cannula 10 03/17/24 21:02 108 H 16 03/17/24 20:08 139/103 H 03/17/24 20:06 8 03/17/24 20:00 108 H 03/17/24 20:00 98 High Flow Nasal Cannula 5 03/17/24 15:48 97.8 F 102 H 18 124/82 97 03/17/24 13:57 110 H 14 Intake/Output Intake/Output: Intake & Output 03/15/24 03/16/24 03/17/24 03/18/24 23:59 23:59 23:59 23:59 Intake Total 1370 1200 1280 240 Output Total 4484 896 -88 310 Balance -3114 304 1368 -70 Meds/Results Medications: Active Medications Generic Name Dose Route Start Last Admin Trade Name Freq PRN Reason Stop Dose Admin Acetaminophen 650 mg 03/09/24 18:43 03/14/24 21:37 Acetaminophen 325 Mg Tablet PO 650 mg Q4H PRN Administration Mild Pain (1-3) or Fever Albuterol/Ipratropium 3 ml 03/11/24 02:00 03/18/24 07:40 Ipratropium 0.5 Mg/Albuterol Sulfate 2.5 Mg Ampul.Neb 3 Ml INHALATION 3 ml Q6HRT CARIDAD Administration Albuterol/Ipratropium 3 ml 03/11/24 00:48 Ipratropium 0.5 Mg/Albuterol Sulfate 2.5 Mg Ampul.Neb 3 Ml INHALATION Q2HRT PRN Shortness Of Breath Or Wheezing Buspirone HCl 10 mg 03/10/24 09:00 03/18/24 12:45 Buspirone Hcl 10 Mg Tablet BY MOUTH 10 mg TID CARIDAD Administration Calcium Acetate 2,668 mg 03/10/24 08:00 03/18/24 12:45 Calcium Acetate 667 Mg Tablet PO 2,668 mg TIDWM CARIDAD Administration Calcium Carbonate 200 mg 03/09/24 23:10 Calcium Carbonate (Tums) 500 Mg (200 Mg Elemental) PO HS PRN Indigestion Cinacalcet 90 mg 03/10/24 09:00 03/18/24 10:27 Cinacalcet 30 Mg Tablet PO 90 mg DAILY CARIDAD Administration Dextrose 12.5 gm 03/12/24 11:41 Dextrose 50% 25 Gm/50 Ml Syringe IV PUSH PRN PRN Hypoglycemia Protocol Diphenoxylate HCl/Atropine 1 tablet 03/12/24 11:39 03/18/24 10:27 Diphenoxylate/Atropine (*Crx) 2.5 Mg Tablet PO 1 tablet QID PRN Administration Diarrhea Escitalopram Oxalate 10 mg 03/10/24 09:00 03/18/24 10:27 Escitalopram Oxalate 10 Mg Tablet PO 10 mg DAILY CARIDAD Administration Gentamicin Sulfate 1 applic 03/09/24 21:00 03/17/24 21:33 Gentamicin Sulfate 0.1% Cr 15 Gm Tube TOPICAL 1 applic QHS CARIDAD Administration Glucagon 1 mg 03/12/24 11:41 Glucagon For Inj 1 Mg Vial IM PRN PRN Hypoglycemia Protocol Glucose 15 gm 03/12/24 11:41 Glucose Oral Gel 15 Gm Of Glucse In 37.5 Gm Tube PO PRN PRN Hypoglycemia Protocol Heparin Sodium (Porcine) 5,000 units 03/10/24 14:00 03/18/24 06:05 Heparin Sodium 5,000 Units/Ml Vial SUB-Q 5,000 units Q8HR CARIDAD Administration Hydralazine HCl 10 mg 03/11/24 11:03 03/11/24 21:31 Hydralazine Hcl 20 Mg/Ml Vial IV PUSH 10 mg Q4H PRN Administration Blood Pressure - High Dextrose 1,000 mls @ 100 mls/hr 03/12/24 11:41 Dextrose 5% 1,000 Ml IVPB PRN PRN Hypoglycemia Protocol Insulin Aspart 3 - 6 units 03/12/24 12:00 03/18/24 12:38 Insulin Aspart (*Bkc) 100 Units/Ml SUB-Q Not Given TIDWM [facility] Protocol Insulin Aspart 1 - 3 units 03/12/24 21:00 03/17/24 21:30 Insulin Aspart (*Bkc) 100 Units/Ml SUB-Q Not Given HS CARIDAD Protocol Labetalol HCl 100 mg 03/10/24 09:00 03/12/24 09:00 Labetalol Hcl 100 Mg Tablet PO Not Given Q12HR CARIDAD Melatonin 20 mg 03/10/24 21:00 03/10/24 20:33 Melatonin 5 Mg Tablet PO 20 mg QHS CARIDAD Administration Melatonin 5 mg 03/13/24 19:50 03/17/24 21:38 Melatonin 5 Mg Tablet PO 5 mg HS PRN Administration Insomnia Metolazone 5 mg 03/10/24 09:00 03/12/24 09:00 Metolazone 5 Mg Tablet PO Not Given DAILY CARIDAD *Home Med*Ferric 0 mg 03/10/24 08:00 03/18/24 12:47 Citrate [Auryxia] PO 04/09/24 07:59 210 mg 210 Mg Iron Tablet TIDWM CARIDAD Administration Nortriptyline HCl 50 mg 03/10/24 21:00 03/17/24 21:30 Nortriptyline Hcl 25 Mg Capsule PO 50 mg QHS CARIDAD Administration Ondansetron HCl 4 mg 03/09/24 18:43 03/16/24 13:03 Ondansetron Inj 4 Mg/2 Ml Vial IV PUSH 4 mg Q4H PRN Administration Nausea Pantoprazole Sodium 40 mg 03/10/24 09:00 03/10/24 08:14 Pantoprazole 40 Mg Tablet PO 40 mg QAM CARIDAD Administration Pantoprazole Sodium 40 mg 03/11/24 09:00 03/18/24 10:27 Pantoprazole Sodium Iv 40 Mg Vial IV PUSH 40 mg QAM CARIDAD Administration Torsemide 100 mg 03/11/24 17:00 03/12/24 09:00 Torsemide 20 Mg Tablet PO Not Given BID [facility] Radiology Results: ITS Impressions Chest X-Ray 03/13/24 05:51 Impression: Possible mild central pulmonary venous congestive change. Abdomen X-Ray 03/18/24 10:23 IMPRESSION: 1. Peritoneal dialysis catheter coiled central pelvis. Labs Labs: Laboratory Tests 03/18/24 03:44 03/18/24 03:44 Calcium 8.8 Phosphorus 4.9 H Magnesium 2.0 Total Bilirubin 0.4 AST 31 ALT 54 H Alkaline Phosphatase 116 Total Protein 6.0 L Albumin 3.5
[2024-03-18] MEDS: CALCIUM ACETATE 667 MG TABLET 2668 MG PO ×3 (10:26→16:48)
[2024-03-18] MEDS: methylPREDNISolone SOD SUCC 40 MG VIAL IV PUSH (10:27)
[2024-03-18] MEDS: ESCITALOPRAM OXALATE 10 MG TABLET PO (10:27)
[2024-03-18] MEDS: DIPHENOXYLATE/ATROPINE (*CRX) 2.5 MG TABLET 1 TABLET PO (10:27)
[2024-03-18] MEDS: CINACALCET 30 MG TABLET 90 MG PO (10:27)
[2024-03-18] MEDS: PANTOPRAZOLE SODIUM IV 40 MG VIAL IV PUSH (10:27)
[2024-03-18] MEDS: busPIRone HCL 10 MG TABLET BY MOUTH ×3 (10:27→16:48)
[2024-03-18] MEDS: IRON PO ×3 (10:31→16:48)
[2024-03-18] MEDS: FERRIC CITRATE 210 MG PO ×3 (10:31→16:48)
[2024-03-18] MEDS: POTASSIUM CHLORIDE 20 MEQ ER TABLET 40 MEQ PO (10:33)
--- NOTE | 2024-03-18 10:39 | P.PNIM_ITS ---
Progress Note: A&P Assessment and Plan (1) Acute hypercapnic respiratory failure: Code(s): J96.02 - Acute respiratory failure with hypercapnia Status: Acute Assessment and Plan: Acute hypercapnic respiratory failure likely related to volume overload, influenza A pneumonia, questionable COPD as patient has a history of tobacco use and currently smokes marijuana -03/11: Transferred from medical floor to ICU for hypoxic and hypercapnic respiratory failure, wheezing, volume overload, possible pneumonia -03/09: Influenza A positive Patient is on continue course ceftriaxone and vancomycin. Concluded azithr omycin 03/17/2024 -continue Tamiflu Patient on high-flow oxygen/Airvo. Been lowered down to 3 L high-flow this a.m.. Steroid which will be stopped today -incentive spirometry, up in chair (2) End-stage renal disease on peritoneal dialysis: Code(s): N18.6 - End stage renal disease; Z99.2 - Dependence on renal dialysis Status: Acute Assessment and Plan: End-stage renal disease on peritoneal dialysis PD schedule per rn eligibility patient also is on torsemide, metolazone at home, will continue patient on fluid restriction per rn eligibility (3) Fluid overload: Qualifiers: Hypervolemia type: unspecified Qualified Code(s): E87.70 - Fluid overload, unspecified Code(s): E87.70 - Fluid overload, unspecified Status: Acute Assessment and Plan: Likely related to incomplete peritoneal dialysis at home -continue PD per rn eligibility -improved (4) HTN (hypertension): Code(s): I10 - Essential (primary) hypertension Status: Chronic Assessment and Plan: Essential hypertension, hold amlodipine, labetalol and blood pressures are within normal limits for now NT p.r.n. hydralazine (5) Polyneuropathy: Code(s): G62.9 - Polyneuropathy, unspecified Status: Acute Assessment and Plan: Off gabapentin since patient has been having tremor-like/asterixis movements -continue nortriptyline (6) Influenza A: Code(s): J10.1 - Influenza due to other identified influenza virus with other respiratory manifestations Status: Acute Assessment and Plan: Treated with Tamiflu x2 does due to peritoneal dialysis (7) Electrolyte abnormality: Code(s): E87.8 - Other disorders of electrolyte and fluid balance, not elsewhere classified Status: Acute Assessment and Plan: Replace low potassium Plan DVT prophylaxis: Heparin SQ Stress ulcer prophylaxis: Protonix Nutrition: Diet ordered Code Status: Full code Subjective Date/time seen: 03/18/24 10:39 Interval history: Oxygen requirement has lowered. No other complaints. Getting stronger and feeling better. Labs reviewed. Review of Systems Review of Systems: All systems reviewed & are unremarkable except as noted in HPI and below Exam Narrative: GENERAL: Well-appearing, in no acute distress. Well-nourished. - EYES: EOMI. Anicteric. - HENT: Moist mucous membranes. - LUNGS: Coarse breath sound bilaterall y no wheezing, rhonchi, or rales. - CARDIOVASCULAR: Regular rate and rhyth m. No murmur. No JVD. - ABDOMEN: Soft, non-tender and non-dist ended. No palpable masses. - EXTREMITIES: No edema. Peripheral puls es 2+. Non-tender. - NEUROLOGIC: No focal neurological defi cits. CN II-XII grossly intact. General weakness - PSYCHIATRIC: Awake, Alert and oriented x 3. Appropriate mood and affect. - SKIN: No rashes or lesions. Warm. - LYMPH: No cervical lymphadenopathy. Objective Data Vital Signs Vital Signs: Vital Signs - 24 hr 03/17/24 11:36 03/17/24 12:10 03/17/24 13:57 Temperature 97.6 F Pulse Rate 96 110 H Respiratory Rate 17 14 Blood Pressure 113/81 Pulse Oximetry 95 96 Oxygen Delivery High Flow Nasal Cannula Oxygen Flow Rate 10 03/17/24 15:48 03/17/24 20:00 03/17/24 20:00 Temperature 97.8 F Pulse Rate 102 H 108 H Respiratory Rate 18 Blood Pressure 124/82 Pulse Oximetry 97 98 Oxygen Delivery High Flow Nasal Cannula Oxygen Flow Rate 5 03/17/24 20:06 03/17/24 20:08 03/17/24 21:02 Temperature Pulse Rate 108 H Respiratory Rate 16 Blood Pressure 139/103 H Pulse Oximetry Oxygen Delivery Oxygen Flow Rate 8 03/17/24 21:03 03/17/24 21:27 03/17/24 22:00 Temperature Pulse Rate 116 H 106 H Respiratory Rate 16 Blood Pressure Pulse Oximetry 99 Oxygen Delivery High Flow Nasal Cannula Oxygen Flow Rate 10 03/18/24 00:00 03/18/24 00:00 03/18/24 00:00 Temperature 98.6 F Pulse Rate 102 H 75 Respiratory Rate 18 Blood Pressure 132/76 Pulse Oximetry 96 92 Oxygen Delivery High Flow Nasal Cannula Oxygen Flow Rate 5 03/18/24 01:59 03/18/24 02:00 03/18/24 02:02 Temperature Pulse Rate 99 99 Respiratory Rate 18 Blood Pressure Pulse Oximetry 95 Oxygen Delivery High Flow Nasal Cannula Oxygen Flow Rate 5 03/18/24 02:14 03/18/24 04:00 03/18/24 04:00 Temperature Pulse Rate 103 H 97 Respiratory Rate 18 Blood Pressure Pulse Oximetry 96 Oxygen Delivery High Flow Nasal Cannula Oxygen Flow Rate 5 03/18/24 04:00 03/18/24 06:00 03/18/24 07:33 Temperature 97.5 F L 97.6 F Pulse Rate 99 91 92 Respiratory Rate 18 18 Blood Pressure 116/79 98/62 L Pulse Oximetry 97 Oxygen Delivery Oxygen Flow Rate 5 03/18/24 07:42 03/18/24 07:42 03/18/24 07:50 Temperature Pulse Rate 92 92 93 Respiratory Rate 20 20 20 Blood Pressure Pulse Oximetry 96 Oxygen Delivery High Flow Nasal Cannula Oxygen Flow Rate 5 03/18/24 08:00 Temperature 99.0 F Pulse Rate 100 Respiratory Rate 18 Blood Pressure 116/80 Pulse Oximetry 100 Oxygen Delivery Oxygen Flow Rate Intake/Output Intake/Output: Intake & Output 03/15/24 03/16/24 03/17/24 03/18/24 23:59 23:59 23:59 23:59 Intake Total 1370 1200 1280 240 Output Total 4484 896 -88 310 Balance -3114 304 1368 -70 Meds/Results Medications: Active Medications Generic Name Dose Route Start Last Admin Trade Name Freq PRN Reason Stop Dose Admin Acetaminophen 650 mg 03/09/24 18:43 03/14/24 21:37 Acetaminophen 325 Mg Tablet PO 650 mg Q4H PRN Administration Mild Pain (1-3) or Fever Albuterol/Ipratropium 3 ml 03/11/24 02:00 03/18/24 07:40 Ipratropium 0.5 Mg/Albuterol Sulfate 2.5 Mg Ampul.Neb 3 Ml INHALATION 3 ml Q6HRT CARIDAD Administration Albuterol/Ipratropium 3 ml 03/11/24 00:48 Ipratropium 0.5 Mg/Albuterol Sulfate 2.5 Mg Ampul.Neb 3 Ml INHALATION Q2HRT PRN Shortness Of Breath Or Wheezing Buspirone HCl 10 mg 03/10/24 09:00 03/18/24 10:27 Buspirone Hcl 10 Mg Tablet BY MOUTH 10 mg TID CARIDAD Administration Calcium Acetate 2,668 mg 03/10/24 08:00 03/18/24 10:26 Calcium Acetate 667 Mg Tablet PO 2,668 mg TIDWM CARIDAD Administration Calcium Carbonate 200 mg 03/09/24 23:10 Calcium Carbonate (Tums) 500 Mg (200 Mg Elemental) PO HS PRN Indigestion Cinacalcet 90 mg 03/10/24 09:00 03/18/24 10:27 Cinacalcet 30 Mg Tablet PO 90 mg DAILY CARIDAD Administration Dextrose 12.5 gm 03/12/24 11:41 Dextrose 50% 25 Gm/50 Ml Syringe IV PUSH PRN PRN Hypoglycemia Protocol Diphenoxylate HCl/Atropine 1 tablet 03/12/24 11:39 03/18/24 10:27 Diphenoxylate/Atropine (*Crx) 2.5 Mg Tablet PO 1 tablet QID PRN Administration Diarrhea Escitalopram Oxalate 10 mg 03/10/24 09:00 03/18/24 10:27 Escitalopram Oxalate 10 Mg Tablet PO 10 mg DAILY CARIDAD Administration Gentamicin Sulfate 1 applic 03/09/24 21:00 03/17/24 21:33 Gentamicin Sulfate 0.1% Cr 15 Gm Tube TOPICAL 1 applic QHS CARIDAD Administration Glucagon 1 mg 03/12/24 11:41 Glucagon For Inj 1 Mg Vial IM PRN PRN Hypoglycemia Protocol Glucose 15 gm 03/12/24 11:41 Glucose Oral Gel 15 Gm Of Glucse In 37.5 Gm Tube PO PRN PRN Hypoglycemia Protocol Heparin Sodium (Porcine) 5,000 units 03/10/24 14:00 03/18/24 06:05 Heparin Sodium 5,000 Units/Ml Vial SUB-Q 5,000 units Q8HR CARIDAD Administration Hydralazine HCl 10 mg 03/11/24 11:03 03/11/24 21:31 Hydralazine Hcl 20 Mg/Ml Vial IV PUSH 10 mg Q4H PRN Administration Blood Pressure - High Dextrose 1,000 mls @ 100 mls/hr 03/12/24 11:41 Dextrose 5% 1,000 Ml IVPB PRN PRN Hypoglycemia Protocol Insulin Aspart 3 - 6 units 03/12/24 12:00 03/18/24 10:28 Insulin Aspart (*Bkc) 100 Units/Ml SUB-Q Not Given TIDWM [facility]ID[facility] Protocol Insulin Aspart 1 - 3 units 03/12/24 21:00 03/17/24 21:30 Insulin Aspart (*Bkc) 100 Units/Ml SUB-Q Not Given HS CARIDAD Protocol Labetalol HCl 100 mg 03/10/24 09:00 03/12/24 09:00 Labetalol Hcl 100 Mg Tablet PO Not Given Q12HR CARIDAD Melatonin 20 mg 03/10/24 21:00 03/10/24 20:33 Melatonin 5 Mg Tablet PO 20 mg QHS CARIDAD Administration Melatonin 5 mg 03/13/24 19:50 03/17/24 21:38 Melatonin 5 Mg Tablet PO 5 mg HS PRN Administration Insomnia Methylprednisolone Sodium Succinate 40 mg 03/15/24 09:00 03/18/24 10:27 Methylprednisolone Sod Succ 40 Mg Vial IV PUSH 03/19/24 08:59 40 mg QAM CARIDAD Administration Metolazone 5 mg 03/10/24 09:00 03/12/24 09:00 Metolazone 5 Mg Tablet PO Not Given DAILY CARIDAD *Home Med*Ferric 0 mg 03/10/24 08:00 03/18/24 10:31 Citrate [Auryxia] PO 04/09/24 07:59 210 mg 210 Mg Iron Tablet TIDWM CARIDAD Administration Nortriptyline HCl 50 mg 03/10/24 21:00 03/17/24 21:30 Nortriptyline Hcl 25 Mg Capsule PO 50 mg QHS CARIDAD Administration Ondansetron HCl 4 mg 03/09/24 18:43 03/16/24 13:03 Ondansetron Inj 4 Mg/2 Ml Vial IV PUSH 4 mg Q4H PRN Administration Nausea Pantoprazole Sodium 40 mg 03/10/24 09:00 03/10/24 08:14 Pantoprazole 40 Mg Tablet PO 40 mg QAM CARIDAD Administration Pantoprazole Sodium 40 mg 03/11/24 09:00 03/18/24 10:27 Pantoprazole Sodium Iv 40 Mg Vial IV PUSH 40 mg QAM CARIDAD Administration Potassium Chloride 20 meq 03/18/24 11:30 Potassium Chloride 20 Meq Er Tablet PO 03/18/24 11:31 ONCE ONE Torsemide 100 mg 03/11/24 17:00 03/12/24 09:00 Torsemide 20 Mg Tablet PO Not Given BID [facility] Radiology Results: ITS Impressions Chest X-Ray 03/13/24 05:51 Impression: Possible mild central pulmonary venous congestive change. Abdomen X-Ray 03/18/24 10:23 IMPRESSION: 1. Peritoneal dialysis catheter coiled central pelvis. Labs Labs: Laboratory Results - last 24 hr 03/10/24 03/17/24 03/17/24 09:41 11:34 16:36 WBC RBC Hgb Hct MCV MCH MCHC RDW Plt Count MPV Sodium Potassium Chloride Carbon Dioxide Anion Gap BUN Creatinine Estim Creat Clear Calc Estimated GFR Glucose POC Capillary Glucose 123 H 153 H Calcium Phosphorus Magnesium Total Bilirubin AST ALT Alkaline Phosphatase Total Protein Albumin 2.9 L Wbsrq-1-Qbzcekwwv 0.4 H Krzxt-8-Vefsoztqf 0.9 Xjce-1-Fzlhhwog 0.4 Ycwx-5-Sojrxciw 0.2 Gamma Globulins 0.6 L PEP Interpretation See note 03/17/24 03/18/24 03/18/24 21:30 03:44 08:32 WBC 25.4 H RBC 4.06 L Hgb 13.2 L Hct 41.0 L MCV 101.0 H MCH 32.5 MCHC 32.2 RDW 13.6 Plt Count 329 MPV 9.9 Sodium 133 L Potassium 3.1 L Chloride 95 L Carbon Dioxide 20 L Anion Gap 18 H BUN 80 H Creatinine 13.10 H Estim Creat Clear Calc 7 Estimated GFR 4 L Glucose 127 H POC Capillary Glucose 179 H 115 H Calcium 8.8 Phosphorus 4.9 H Magnesium 2.0 Total Bilirubin 0.4 AST 31 ALT 54 H Alkaline Phosphatase 116 Total Protein 6.0 L Albumin 3.5 Sxrkz-6-Svgzwazqf Wrgtp-0-Ufymiszsb Ggss-4-Cemakaqs Znmn-2-Shpzpxgt Gamma Globulins PEP Interpretation
[2024-03-18 12:30] LABS: Glucose Point of Care 113 mg/dl (65-105)
[2024-03-18] MEDS: POTASSIUM CHLORIDE 20 MEQ ER TABLET PO (12:46)
[2024-03-18 16:22] LABS: Glucose Point of Care 149 mg/dl (65-105)
[2024-03-18] MEDS: ONDANSETRON INJ 4 MG/2 ML VIAL IV PUSH (16:54)
[2024-03-18 20:44] LABS: Glucose Point of Care 140 mg/dl (65-105)
[2024-03-18] MEDS: NORTRIPTYLINE HCL 25 MG CAPSULE 50 MG PO (21:43)
[2024-03-18] MEDS: MELATONIN 5 MG TABLET PO (21:46)
[2024-03-18] MEDS: GENTAMICIN SULFATE 0.1% CR 15 GM TUBE 1 APPLIC TOPICAL (21:49)
[2024-03-19] VITALS (24 sets, daily range): BP systolic 88–134; BP diastolic 43–92; PULSE 95–120; RESP 16–24; TEMP 36.7–37.1; O2SAT 93–100
[2024-03-19] MEDS: IPRATROPIUM 0.5 MG/ALBUTEROL SULFATE 2.5 MG AMPUL.NEB 3 ML INHALATION ×4 (02:48→19:37)
[2024-03-19 04:42] LABS: Hematocrit 39.4 % (42.0-52.0); Hemoglobin 12.8 g/dL (14.0-18.0); Mean Corpuscular HGB Conc 32.5 g/dl (32-36); Mean Corpuscular Hemoglobin 32.3 pg (26-34); Mean Corpuscular Volume 99.5 fl (80-100); Mean Platelet Volume 9.8 fl (7.4-10.4); Platelet Count Result 317 k/mm3 (150-375); Red Blood Count 3.96 M/mm3 (4.6-6.20); Red Cell Distribution Width 13.9 % (11.5-14.5); White Blood Count 23.2 K/mm3 (4.5-10.0)
[2024-03-19 04:55] LABS: Alanine Aminotransferase 53 U/L (6-50); Albumin Level 3.2 g/dL (3.5-5.1); Alkaline Phosphatase 112 U/L (38-126); Anion Gap 17 mmol/L (4-12); Aspartate Amino Transferase 26 U/L (17-59); Bilirubin,Total 0.5 mg/dL (0.2-1.3); Blood Urea Nitrogen 82 mg/dL (9-20); Calcium 8.7 mg/dL (8.4-10.2); Carbon Dioxide 18 mmol/L (22-30); Chloride 97 mmol/L (98-107); Estimated CRCL calculation 7 ml/min; Estimated Glomerular Filt Rate 4; Glucose 103 mg/dL (65-110); Magnesium 1.9 mg/dL (1.6-2.3); Phosphorus 4.7 mg/dL (2.5-4.5); Potassium 3.5 mmol/L (3.4-5.0); Sodium 132 mmol/L (137-145)
[2024-03-19] MEDS: HEPARIN SODIUM 5,000 UNITS/ML VIAL 5000 UNITS SUB-Q ×3 (05:52→21:03)
[2024-03-19] MEDS: [UNRECOGNIZED DRUG - REMARK] 1 EACH XX (06:31)
[2024-03-19 08:08] LABS: Glucose Point of Care 102 mg/dl (65-105)
[2024-03-19] MEDS: CALCIUM ACETATE 667 MG TABLET 2668 MG PO ×3 (08:27→16:46)
[2024-03-19] MEDS: ESCITALOPRAM OXALATE 10 MG TABLET PO (08:27)
[2024-03-19] MEDS: CINACALCET 30 MG TABLET 90 MG PO (08:27)
[2024-03-19] MEDS: busPIRone HCL 10 MG TABLET BY MOUTH ×3 (08:27→16:46)
[2024-03-19] MEDS: IRON PO (08:27)
[2024-03-19] MEDS: PANTOPRAZOLE SODIUM IV 40 MG VIAL IV PUSH (08:27)
[2024-03-19] MEDS: ONDANSETRON INJ 4 MG/2 ML VIAL IV PUSH ×2 (08:27→13:30)
[2024-03-19] MEDS: FERRIC CITRATE 210 MG PO (08:27)
--- NOTE | 2024-03-19 11:27 | PM.PNNEP ---
Progress Note: A&P Assessment and Plan (1) End stage renal disease: Code(s): N18.6 - End stage renal disease Status: Chronic Assessment and Plan: continue nightly CCPD s/p 24 hour sessions of PD x 3 days (03/10, 03/11, and 03/12) with aggressive ultrafiltration/fluid removal follow electrolytes, volume status, and clearance replete electrolytes anss needed (2) Acute hypercapnic respiratory failure: Code(s): J96.02 - Acute respiratory failure with hypercapnia Status: Acute Assessment and Plan: resolving multifactorial etiology: volume overload pneumonia influenza questionable COPD empiric antibiotics on admission - off currently off steroids now follow cultures - negative to date wean supplemental oxygen as tolerated follow respiratory status (3) Fluid overload: Qualifiers: Hypervolemia type: unspecified Qualified Code(s): E87.70 - Fluid overload, unspecified Code(s): E87.70 - Fluid overload, unspecified Status: Acute Assessment and Plan: clinical improvement noted as noted on presentation s/p aggressive ultrafiltation/fluid removal with PD x 3 days (24 hour treatments) almost 10 - 12L negative following this intervention continue fluid and salt restriction (4) Influenza A: Code(s): J10.1 - Influenza due to other identified influenza virus with other respiratory manifestations Status: Acute Assessment and Plan: positive testing noted s/p Tamiflu 30 mg x 1 dose respiratory isolation supportive therapy (5) Hyponatremia: Code(s): E87.1 - Hypo-osmolality and hyponatremia Status: Acute Assessment and Plan: sodium fluctuating related to ESRD and increased free water intake + volume overload on fluid restriction and fluid removal with PD (6) HTN (hypertension): Code(s): I10 - Essential (primary) hypertension Status: Chronic Assessment and Plan: despite known history, relative hypotension noted previously suspect low BP due to aggressive fluid removal/ultrafiltration with PD BP medications with parameters follow trend of hemodynamics Will continue to follow. Subjective Date/time seen: 03/19/24 11:27 Interval history: Follow-up for end stage renal disease on peritoneal dialysis. Breathing/respiratory status continues to slowly improve -- was weaned to room air but no back on 2L by nasal cannula; continues to tolerate nightly peritoneal dialysis treatments fairly well; no apparent distress noted; resting comfortably at the time of my visit; no events overnight or earlier today. Exam Narrative: General: male who appears older than stated age in NAD Heart: normal S1 and S2; no rub Lungs: clear anteriorly Abdomen: soft, nontender, nondistended, positive bowel sounds Extremities: no cyanosis or clubbing; trace edema Skin: no nodules Objective Data Vital Signs Vital Signs: Vital Signs Temp Pulse Resp BP Pulse Ox O2 Del Method O2 Flow Rate 03/19/24 11:22 98.4 F 110 H 18 129/92 H 93 03/19/24 08:10 98.0 F 115 H 22 H 97/43 L 2 03/19/24 08:00 98.0 F 115 H 24 H 97/63 L 97 03/19/24 07:57 105 H 20 03/19/24 07:46 103 H 20 03/19/24 07:46 93 Nasal Cannula 2 03/19/24 06:00 99 03/19/24 04:00 111 H 03/19/24 04:00 100 Nasal Cannula 2 03/19/24 03:57 98.0 F 104 H 18 134/87 100 03/19/24 02:51 108 H 18 03/19/24 02:00 118 H 03/19/24 00:00 109 H 03/19/24 00:00 95 Nasal Cannula 2 03/19/24 00:00 98.3 F 112 H 18 133/91 H 99 03/18/24 22:00 109 H 03/18/24 21:30 109 H 20 03/18/24 21:20 106 H 20 03/18/24 21:20 93 Autopap 03/18/24 20:00 112 H 03/18/24 20:00 93 Nasal Cannula 2 03/18/24 20:00 97.9 F 110 H 18 134/86 92 03/18/24 18:00 114 H 03/18/24 16:00 108 H 03/18/24 16:00 90 Room Air 03/18/24 15:58 98.6 F 108 H 14 119/71 90 Intake/Output Intake/Output: Intake & Output 03/16/24 03/17/24 03/18/24 03/19/24 23:59 23:59 23:59 23:59 Intake Total 1200 1280 480 350 Output Total 896 -88 310 312 Balance 304 1368 170 38 Meds/Results Medications: Active Medications Generic Name Dose Route Start Last Admin Trade Name Freq PRN Reason Stop Dose Admin Acetaminophen 650 mg 03/09/24 18:43 03/14/24 21:37 Acetaminophen 325 Mg Tablet PO 650 mg Q4H PRN Administration Mild Pain (1-3) or Fever Albuterol/Ipratropium 3 ml 03/11/24 02:00 03/19/24 13:43 Ipratropium 0.5 Mg/Albuterol Sulfate 2.5 Mg Ampul.Neb 3 Ml INHALATION 3 ml Q6HRT CARIDAD Administration Albuterol/Ipratropium 3 ml 03/11/24 00:48 Ipratropium 0.5 Mg/Albuterol Sulfate 2.5 Mg Ampul.Neb 3 Ml INHALATION Q2HRT PRN Shortness Of Breath Or Wheezing Buspirone HCl 10 mg 03/10/24 09:00 03/19/24 13:30 Buspirone Hcl 10 Mg Tablet BY MOUTH 10 mg TID CARIDAD Administration Calcium Acetate 2,668 mg 03/10/24 08:00 03/19/24 11:44 Calcium Acetate 667 Mg Tablet PO 2,668 mg TIDWM CAR[facility]AD Administration Calcium Carbonate 200 mg 03/09/24 23:10 03/19/24 11:44 Calcium Carbonate (Tums) 500 Mg (200 Mg Elemental) PO 200 mg HS PRN Administration Indigestion Cinacalcet 90 mg 03/10/24 09:00 03/19/24 08:27 Cinacalcet 30 Mg Tablet PO 90 mg DAILY CARIDAD Administration Dextrose 12.5 gm 03/12/24 11:41 Dextrose 50% 25 Gm/50 Ml Syringe IV PUSH PRN PRN Hypoglycemia Protocol Diphenoxylate HCl/Atropine 1 tablet 03/12/24 11:39 03/18/24 10:27 Diphenoxylate/Atropine (*Crx) 2.5 Mg Tablet PO 1 tablet QID PRN Administration Diarrhea Escitalopram Oxalate 10 mg 03/10/24 09:00 03/19/24 08:27 Escitalopram Oxalate 10 Mg Tablet PO 10 mg DAILY CARIDAD Administration Gentamicin Sulfate 1 applic 03/09/24 21:00 03/18/24 21:49 Gentamicin Sulfate 0.1% Cr 15 Gm Tube TOPICAL 1 applic QHS CARIDAD Administration Glucagon 1 mg 03/12/24 11:41 Glucagon For Inj 1 Mg Vial IM PRN PRN Hypoglycemia Protocol Glucose 15 gm 03/12/24 11:41 Glucose Oral Gel 15 Gm Of Glucse In 37.5 Gm Tube PO PRN PRN Hypoglycemia Protocol Heparin Sodium (Porcine) 5,000 units 03/10/24 14:00 03/19/24 13:30 Heparin Sodium 5,000 Units/Ml Vial SUB-Q 5,000 units Q8HR CARIDAD Administration Hydralazine HCl 10 mg 03/11/24 11:03 03/11/24 21:31 Hydralazine Hcl 20 Mg/Ml Vial IV PUSH 10 mg Q4H PRN Administration Blood Pressure - High Dextrose 1,000 mls @ 100 mls/hr 03/12/24 11:41 Dextrose 5% 1,000 Ml IVPB PRN PRN Hypoglycemia Protocol Insulin Aspart 3 - 6 units 03/12/24 12:00 03/19/24 11:46 Insulin Aspart (*Bkc) 100 Units/Ml SUB-Q Not Given TIDWM [facility] Protocol Insulin Aspart 1 - 3 units 03/12/24 21:00 03/18/24 21:44 Insulin Aspart (*Bkc) 100 Units/Ml SUB-Q Not Given HS [facility] Protocol Labetalol HCl 100 mg 03/10/24 09:00 03/12/24 09:00 Labetalol Hcl 100 Mg Tablet PO Not Given Q12HR [facility] Melatonin 20 mg 03/10/24 21:00 03/10/24 20:33 Melatonin 5 Mg Tablet PO 20 mg QHS CARIDAD Administration Melatonin 5 mg 03/13/24 19:50 03/18/24 21:46 Melatonin 5 Mg Tablet PO 5 mg HS PRN Administration Insomnia Metolazone 5 mg 03/10/24 09:00 03/12/24 09:00 Metolazone 5 Mg Tablet PO Not Given DAILY [facility] *Home Med*Ferric 0 mg 03/10/24 08:00 03/19/24 11:45 Citrate [Auryxia] PO 04/09/24 07:59 Not Given 210 Mg Iron Tablet TIDWM [facility] Nortriptyline HCl 50 mg 03/10/24 21:00 03/18/24 21:43 Nortriptyline Hcl 25 Mg Capsule PO 50 mg QHS [facility]IDAD Administration Ondansetron HCl 4 mg 03/09/24 18:43 03/19/24 13:30 Ondansetron Inj 4 Mg/2 Ml Vial IV PUSH 4 mg Q4H PRN Administration Nausea Pantoprazole Sodium 40 mg 03/10/24 09:00 03/10/24 08:14 Pantoprazole 40 Mg Tablet PO 40 mg QAM [facility] Administration Pantoprazole Sodium 40 mg 03/11/24 09:00 03/19/24 08:27 Pantoprazole Sodium Iv 40 Mg Vial IV PUSH 40 mg QAM [facility] Administration Torsemide 100 mg 03/11/24 17:00 03/12/24 09:00 Torsemide 20 Mg Tablet PO Not Given BID [facility] Radiology Results: ITS Impressions Abdomen X-Ray 03/18/24 10:23 IMPRESSION: 1. Peritoneal dialysis catheter coiled central pelvis. Chest X-Ray 03/19/24 09:16 Impression: Clear lungs. Labs Labs: Laboratory Tests 03/19/24 04:13 03/19/24 04:13 Calcium 8.7 Phosphorus 4.7 H Magnesium 1.9 Total Bilirubin 0.5 AST 26 ALT 53 H Alkaline Phosphatase 112 Total Protein 6.0 L Albumin 3.2 L
[2024-03-19 11:43] LABS: Glucose Point of Care 118 mg/dl (65-105)
[2024-03-19] MEDS: CALCIUM CARBONATE (TUMS) 500 MG (200 MG ELEMENTAL) PO (11:44)
--- NOTE | 2024-03-19 14:09 | PM.IMPN ---
Progress Note: A&P Assessment and Plan (1) Acute hypercapnic respiratory failure: Code(s): J96.02 - Acute respiratory failure with hypercapnia Status: Acute Assessment and Plan: Acute hypercapnic respiratory failure likely related to volume overload, influenza A pneumonia, questionable COPD as patient has a history of tobacco use and currently smokes marijuana -03/11: Transferred from medical floor to ICU for hypoxic and hypercapnic respiratory failure, wheezing, volume overload, possible pneumonia -03/09: Influenza A positive Patient is on continue course ceftriaxone and vancomycin. Concluded azithromycin 03/17/2024 -continue Tamiflu Patient on high-flow oxygen/Airvo. Been lowered down to 3 L high-flow Steroid discontinued Now -incentive spirometry, up in chair (2) End-stage renal disease on peritoneal dialysis: Code(s): N18.6 - End stage renal disease; Z99.2 - Dependence on renal dialysis Status: Acute Assessment and Plan: End-stage renal disease on peritoneal dialysis PD schedule per telephone assembler patient also is on torsemide, metolazone at home, will continue patient on fluid restriction per telephone assembler (3) Fluid overload: Qualifiers: Hypervolemia type: unspecified Qualified Code(s): E87.70 - Fluid overload, unspecified Code(s): E87.70 - Fluid overload, unspecified Status: Acute Assessment and Plan: Likely related to incomplete peritoneal dialysis at home -continue PD per telephone assembler -improved (4) HTN (hypertension): Code(s): I10 - Essential (primary) hypertension Status: Chronic Assessment and Plan: Essential hypertension, hold amlodipine, labetalol and blood pressures are within normal limits for now NT p.r.n. hydralazine (5) Polyneuropathy: Code(s): G62.9 - Polyneuropathy, unspecified Status: Acute Assessment and Plan: Off gabapentin since patient has been having tremor-like/asterixis movements -continue nortriptyline (6) Influenza A: Code(s): J10.1 - Influenza due to other identified influenza virus with other respiratory manifestations Status: Acute Assessment and Plan: Treated with Tamiflu x2 does due to peritoneal dialysis (7) Electrolyte abnormality: Code(s): E87.8 - Other disorders of electrolyte and fluid balance, not elsewhere classified Status: Acute Assessment and Plan: Replace low potassium Plan DVT prophylaxis: Heparin SQ Stress ulcer prophylaxis: Protonix Nutrition: Diet ordered Code Status: Full code Subjective Date/time seen: 03/19/24 14:09 Interval history: no overnight events. Patient undergoing peritoneal dialysis at night. Mildly tachycardic today. Breathing aguilera he is feeling better. Review of Systems Review of Systems: All systems reviewed & are unremarkable except as noted in HPI and below Exam Narrative: GENERAL: Well-appearing, in no acute distress. Well-nourished. - EYES: EOMI. Anicteric. - HENT: Moist mucous membranes. - LUNGS: Coarse breath sound bilaterally no wheezing, rhonchi, or rales. - CARDIOVASCULAR: Mildly tachycardic sinus rhythm on telemetry. No murmur. No JVD. - ABDOMEN: Soft, non-tender and non-distended. No palpable masses. - EXTREMITIES: No edema. Peripheral pulses 2+. Non-tender. - NEUROLOGIC: No focal neurological deficits. CN II-XII grossly intact. General weakness - PSYCHIATRIC: Awake, Alert and oriented x 3. Appropriate mood and affect. - SKIN: No rashes or lesions. Warm. - LYMPH: No cervical lymphadenopathy. Objective Data Vital Signs Vital Signs: Vital Signs - 24 hr 03/18/24 15:58 03/18/24 16:00 03/18/24 16:00 Temperature 98.6 F Pulse Rate 108 H 108 H Respiratory Rate 14 Blood Pressure 119/71 Pulse Oximetry 90 90 Oxygen Delivery Room Air Oxygen Flow Rate Fraction of Inspired Oxygen 03/18/24 18:00 03/18/24 20:00 03/18/24 20:00 Temperature 97.9 F Pulse Rate 114 H 110 H Respiratory Rate 18 Blood Pressure 134/86 Pulse Oximetry 92 93 Oxygen Delivery Nasal Cannula Oxygen Flow Rate 2 Fraction of Inspired Oxygen 03/18/24 20:00 03/18/24 21:20 03/18/24 21:20 Temperature Pulse Rate 112 H 106 H Respiratory Rate 20 Blood Pressure Pulse Oximetry 93 Oxygen Delivery Autopap Oxygen Flow Rate Fraction of Inspired Oxygen 03/18/24 21:30 03/18/24 22:00 03/19/24 00:00 Temperature 98.3 F Pulse Rate 109 H 109 H 112 H Respiratory Rate 20 18 Blood Pressure 133/91 H Pulse Oximetry 99 Oxygen Delivery Oxygen Flow Rate Fraction of Inspired Oxygen 03/19/24 00:00 03/19/24 00:00 03/19/24 02:00 Temperature Pulse Rate 109 H 118 H Respiratory Rate Blood Pressure Pulse Oximetry 95 Oxygen Delivery Nasal Cannula Oxygen Flow Rate 2 Fraction of Inspired Oxygen 03/19/24 02:51 03/19/24 03:57 03/19/24 04:00 Temperature 98.0 F Pulse Rate 108 H 104 H Respiratory Rate 18 18 Blood Pressure 134/87 Pulse Oximetry 100 100 Oxygen Delivery Nasal Cannula Oxygen Flow Rate 2 Fraction of Inspired Oxygen 03/19/24 04:00 03/19/24 06:00 03/19/24 07:46 Temperature Pulse Rate 111 H 99 Respiratory Rate Blood Pressure Pulse Oximetry 93 Oxygen Delivery Nasal Cannula Oxygen Flow Rate 2 Fraction of Inspired Oxygen 28 03/19/24 07:46 03/19/24 07:57 03/19/24 08:00 Temperature 98.0 F Pulse Rate 103 H 105 H 115 H Respiratory Rate 20 20 24 H Blood Pressure 97/63 L Pulse Oximetry 97 Oxygen Delivery Oxygen Flow Rate Fraction of Inspired Oxygen 03/19/24 08:10 03/19/24 11:52 03/19/24 13:43 Temperature 98.0 F 98.4 F Pulse Rate 115 H 110 H Respiratory Rate 22 H 18 Blood Pressure 97/43 L 129/92 H Pulse Oximetry 93 94 Oxygen Delivery Nasal Cannula Oxygen Flow Rate 2 1 Fraction of Inspired Oxygen 03/19/24 13:43 03/19/24 13:53 Temperature Pulse Rate 100 107 H Respiratory Rate 20 20 Blood Pressure Pulse Oximetry Oxygen Delivery Oxygen Flow Rate Fraction of Inspired Oxygen Intake/Output Intake/Output: Intake & Output 03/16/24 03/17/24 03/18/24 03/19/24 23:59 23:59 23:59 23:59 Intake Total 1200 1280 480 350 Output Total 896 -88 310 312 Balance 304 1368 170 38 Meds/Results Medications: Active Medications Generic Name Dose Route Start Last Admin Trade Name Freq PRN Reason Stop Dose Admin Acetaminophen 650 mg 03/09/24 18:43 03/14/24 21:37 Acetaminophen 325 Mg Tablet PO 650 mg Q4H PRN Administration Mild Pain (1-3) or Fever Albuterol/Ipratropium 3 ml 03/11/24 02:00 03/19/24 13:43 Ipratropium 0.5 Mg/Albuterol Sulfate 2.5 Mg Ampul.Neb 3 Ml INHALATION 3 ml Q6HRT CARIDAD Administration Albuterol/Ipratropium 3 ml 03/11/24 00:48 Ipratropium 0.5 Mg/Albuterol Sulfate 2.5 Mg Ampul.Neb 3 Ml INHALATION Q2HRT PRN Shortness Of Breath Or Wheezing Buspirone HCl 10 mg 03/10/24 09:00 03/19/24 13:30 Buspirone Hcl 10 Mg Tablet BY MOUTH 10 mg TID CARIDAD Administration Calcium Acetate 2,668 mg 03/10/24 08:00 03/19/24 11:44 Calcium Acetate 667 Mg Tablet PO 2,668 mg TIDWM CARIDAD Administration Calcium Carbonate 200 mg 03/09/24 23:10 03/19/24 11:44 Calcium Carbonate (Tums) 500 Mg (200 Mg Elemental) PO 200 mg HS PRN Administration Indigestion Cinacalcet 90 mg 03/10/24 09:00 03/19/24 08:27 Cinacalcet 30 Mg Tablet PO 90 mg DAILY CARIDAD Administration Dextrose 12.5 gm 03/12/24 11:41 Dextrose 50% 25 Gm/50 Ml Syringe IV PUSH PRN PRN Hypoglycemia Protocol Diphenoxylate HCl/Atropine 1 tablet 03/12/24 11:39 03/18/24 10:27 Diphenoxylate/Atropine (*Crx) 2.5 Mg Tablet PO 1 tablet QID PRN Administration Diarrhea Escitalopram Oxalate 10 mg 03/10/24 09:00 03/19/24 08:27 Escitalopram Oxalate 10 Mg Tablet PO 10 mg DAILY CARID[facility] Administration Gentamicin Sulfate 1 applic 03/09/24 21:00 03/18/24 21:49 Gentamicin Sulfate 0.1% Cr 15 Gm Tube TOPICAL 1 applic QHS CARIDAD Administration Glucagon 1 mg 03/12/24 11:41 Glucagon For Inj 1 Mg Vial IM PRN PRN Hypoglycemia Protocol Glucose 15 gm 03/12/24 11:41 Glucose Oral Gel 15 Gm Of Glucse In 37.5 Gm Tube PO PRN PRN Hypoglycemia Protocol Heparin Sodium (Porcine) 5,000 units 03/10/24 14:00 03/19/24 13:30 Heparin Sodium 5,000 Units/Ml Vial SUB-Q 5,000 units Q8HR CARIDAD Administration Hydralazine HCl 10 mg 03/11/24 11:03 03/11/24 21:31 Hydralazine Hcl 20 Mg/Ml Vial IV PUSH 10 mg Q4H PRN Administration Blood Pressure - High Dextrose 1,000 mls @ 100 mls/hr 03/12/24 11:41 Dextrose 5% 1,000 Ml IVPB PRN PRN Hypoglycemia Protocol Insulin Aspart 3 - 6 units 03/12/24 12:00 03/19/24 11:46 Insulin Aspart (*Bkc) 100 Units/Ml SUB-Q Not Given TIDWM [facility] Protocol Insulin Aspart 1 - 3 units 03/12/24 21:00 03/18/24 21:44 Insulin Aspart (*Bkc) 100 Units/Ml SUB-Q Not Given HS [facility] Protocol Labetalol HCl 100 mg 03/10/24 09:00 03/12/24 09:00 Labetalol Hcl 100 Mg Tablet PO Not Given Q12HR [facility] Melatonin 20 mg 03/10/24 21:00 03/10/24 20:33 Melatonin 5 Mg Tablet PO 20 mg QHS CARIDAD Administration Melatonin 5 mg 03/13/24 19:50 03/18/24 21:46 Melatonin 5 Mg Tablet PO 5 mg HS PRN Administration Insomnia Metolazone 5 mg 03/10/24 09:00 03/12/24 09:00 Metolazone 5 Mg Tablet PO Not Given DAILY CAR[facility] *Home Med*Ferric 0 mg 03/10/24 08:00 03/19/24 11:45 Citrate [Auryxia] PO 04/09/24 07:59 Not Given 210 Mg Iron Tablet TIDWM [facility] Nortriptyline HCl 50 mg 03/10/24 21:00 03/18/24 21:43 Nortriptyline Hcl 25 Mg Capsule PO 50 mg QHS CARIDAD Administration Ondansetron HCl 4 mg 03/09/24 18:43 03/19/24 13:30 Ondansetron Inj 4 Mg/2 Ml Vial IV PUSH 4 mg Q4H PRN Administration Nausea Pantoprazole Sodium 40 mg 03/10/24 09:00 03/10/24 08:14 Pantoprazole 40 Mg Tablet PO 40 mg QAM CARIDAD Administration Pantoprazole Sodium 40 mg 03/11/24 09:00 03/19/24 08:27 Pantoprazole Sodium Iv 40 Mg Vial IV PUSH 40 mg QAM CARIDAD Administration Torsemide 100 mg 03/11/24 17:00 03/12/24 09:00 Torsemide 20 Mg Tablet PO Not Given BID [facility] Radiology Results: ITS Impressions Abdomen X-Ray 03/18/24 10:23 IMPRESSION: 1. Peritoneal dialysis catheter coiled central pelvis. Chest X-Ray 03/19/24 09:16 Impression: Clear lungs. Labs Labs: Laboratory Results - last 24 hr 03/18/24 03/18/24 03/19/24 15:54 20:29 04:13 WBC 23.2 H RBC 3.96 L Hgb 12.8 L Hct 39.4 L MCV 99.5 MCH 32.3 MCHC 32.5 RDW 13.9 Plt Count 317 MPV 9.8 Sodium 132 L Potassium 3.5 Chloride 97 L Carbon Dioxide 18 L Anion Gap 17 H BUN 82 H Creatinine 12.72 H Estim Creat Clear Calc 7 Estimated GFR 4 L Glucose 103 POC Capillary Glucose 149 H 140 H Calcium 8.7 Phosphorus 4.7 H Magnesium 1.9 Total Bilirubin 0.5 AST 26 ALT 53 H Alkaline Phosphatase 112 Total Protein 6.0 L Albumin 3.2 L 03/19/24 03/19/24 08:04 11:39 WBC RBC Hgb Hct MCV MCH MCHC RDW Plt Count MPV Sodium Potassium Chloride Carbon Dioxide Anion Gap BUN Creatinine Estim Creat Clear Calc Estimated GFR Glucose POC Capillary Glucose 102 118 H Calcium Phosphorus Magnesium Total Bilirubin AST ALT Alkaline Phosphatase Total Protein Albumin
[2024-03-19 16:33] LABS: Glucose Point of Care 150 mg/dl (65-105)
[2024-03-19] MEDS: LABETALOL HCL 100 MG TABLET PO (21:03)
[2024-03-19] MEDS: NORTRIPTYLINE HCL 25 MG CAPSULE 50 MG PO (21:03)
[2024-03-19] MEDS: MELATONIN 5 MG TABLET PO (21:04)
[2024-03-19 22:30] LABS: Glucose Point of Care 119 mg/dl (65-105)
[2024-03-20] VITALS (22 sets, daily range): BP systolic 90–99; BP diastolic 56–70; PULSE 84–108; RESP 16–20; TEMP 36.3–37.2; O2SAT 92–99
[2024-03-20] MEDS: IPRATROPIUM 0.5 MG/ALBUTEROL SULFATE 2.5 MG AMPUL.NEB 3 ML INHALATION ×4 (01:20→20:42)
[2024-03-20 05:00] LABS: Hematocrit 38.2 % (42.0-52.0); Hemoglobin 12.3 g/dL (14.0-18.0); Mean Corpuscular HGB Conc 32.2 g/dl (32-36); Mean Corpuscular Hemoglobin 32.3 pg (26-34); Mean Corpuscular Volume 100.3 fl (80-100); Mean Platelet Volume 9.8 fl (7.4-10.4); Platelet Count Result 305 k/mm3 (150-375); Red Blood Count 3.81 M/mm3 (4.6-6.20); Red Cell Distribution Width 14.2 % (11.5-14.5); White Blood Count 19.3 K/mm3 (4.5-10.0)
[2024-03-20 05:12] LABS: Alanine Aminotransferase 45 U/L (6-50); Albumin Level 3.1 g/dL (3.5-5.1); Alkaline Phosphatase 108 U/L (38-126); Anion Gap 13 mmol/L (4-12); Aspartate Amino Transferase 24 U/L (17-59); Bilirubin,Total 0.4 mg/dL (0.2-1.3); Blood Urea Nitrogen 74 mg/dL (9-20); Calcium 8.8 mg/dL (8.4-10.2); Carbon Dioxide 25 mmol/L (22-30); Chloride 96 mmol/L (98-107); Estimated CRCL calculation 7 ml/min; Estimated Glomerular Filt Rate 4; Glucose 121 mg/dL (65-110); Magnesium 1.8 mg/dL (1.6-2.3); Phosphorus 4.6 mg/dL (2.5-4.5); Potassium 3.1 mmol/L (3.4-5.0); Sodium 134 mmol/L (137-145)
[2024-03-20] MEDS: HEPARIN SODIUM 5,000 UNITS/ML VIAL 5000 UNITS SUB-Q ×3 (06:37→21:08)
[2024-03-20 08:09] LABS: Glucose Point of Care 83 mg/dl (65-105)
[2024-03-20] MEDS: LABETALOL HCL 100 MG TABLET PO ×2 (08:45→21:07)
[2024-03-20] MEDS: ESCITALOPRAM OXALATE 10 MG TABLET PO (08:46)
[2024-03-20] MEDS: PANTOPRAZOLE 40 MG TABLET PO (08:46)
[2024-03-20] MEDS: IRON PO (08:46)
[2024-03-20] MEDS: FERRIC CITRATE 210 MG PO (08:46)
[2024-03-20] MEDS: CINACALCET 30 MG TABLET 90 MG PO (08:46)
[2024-03-20] MEDS: busPIRone HCL 10 MG TABLET BY MOUTH ×2 (08:46→17:12)
[2024-03-20] MEDS: CALCIUM ACETATE 667 MG TABLET 2668 MG PO ×2 (08:46→17:12)
--- NOTE | 2024-03-20 08:59 | PC.NURSE ---
Report called to CHIKA [place] @ [phone]. Informed of outstanding response for a call to provider regarding low mg and K.
--- NOTE | 2024-03-20 09:52 | PM.PNNEP ---
Progress Note: A&P Assessment and Plan (1) End stage renal disease: Code(s): N18.6 - End stage renal disease Status: Chronic Assessment and Plan: continue nightly CCPD s/p 24 hour sessions of PD x 3 days (03/10, 03/11, and 03/12) with aggressive ultrafiltration/fluid removal follow electrolytes, volume status, and clearance replete electrolytes as needed (2) Acute hypercapnic respiratory failure: Code(s): J96.02 - Acute respiratory failure with hypercapnia Status: Acute Assessment and Plan: resolving/resolved multifactorial etiology: volume overload pneumonia influenza questionable COPD empiric antibiotics on admission - off currently off steroids now as well follow cultures - negative to date wean supplemental oxygen as tolerated - on room air currently follow respiratory status (3) Fluid overload: Qualifiers: Hypervolemia type: unspecified Qualified Code(s): E87.70 - Fluid overload, unspecified Code(s): E87.70 - Fluid overload, unspecified Status: Acute Assessment and Plan: clinical improvement noted as noted on presentation s/p aggressive ultrafiltation/fluid removal with PD x 3 days (24 hour treatments) almost 10 - 12L negative following this intervention continue fluid and salt restriction (4) Influenza A: Code(s): J10.1 - Influenza due to other identified influenza virus with other respiratory manifestations Status: Acute Assessment and Plan: positive testing noted s/p Tamiflu 30 mg x 1 dose supportive therapy (5) Hyponatremia: Code(s): E87.1 - Hypo-osmolality and hyponatremia Status: Acute Assessment and Plan: sodium fluctuating related to ESRD and increased free water intake + volume overload on fluid restriction and fluid removal with PD (6) HTN (hypertension): Code(s): I10 - Essential (primary) hypertension Status: Chronic Assessment and Plan: despite known history, relative hypotension noted previously suspect low BP due to aggressive fluid removal/ultrafiltration with PD BP medications with parameters follow trend of hemodynamics Not opposed to discharge from renal perspective if otherwise medically stable. Will continue to follow. Subjective Date/time seen: 03/20/24 09:52 Interval history: Follow-up for end stage renal disease on peritoneal dialysis. Tolerated peritoneal dialysis treatment overnight without any issues or problems (CCPD supervised and seen at 9:45AM); weaned off supplemental oxygen with stability in oxygen saturations; no other events overnight or earlier this morning; no apparent distress noted/voiced at the time of my visit. Exam Narrative: General: male who appears older than stated age in NAD Heart: normal S1 and S2; no rub Lungs: clear anteriorly Abdomen: soft, nontender, nondistended, positive bowel sounds Extremities: no cyanosis or clubbing; trace edema Skin: warm and dry Objective Data Vital Signs Vital Signs: Vital Signs Temp Pulse Resp BP Pulse Ox O2 Del Method O2 Flow Rate 03/20/24 09:26 87 20 03/20/24 09:03 89 20 99 Nasal Cannula 1 03/20/24 08:45 93 03/20/24 08:00 97 03/20/24 08:00 97 Nasal Cannula 2 03/20/24 07:42 97.8 F 92 18 92/62 L 98 03/20/24 07:35 97.8 F 92 18 92/62 L 1 03/20/24 06:00 87 03/20/24 04:21 97.3 F L 88 20 90/58 L 96 03/20/24 04:00 86 03/20/24 04:00 98 Autopap 03/20/24 02:00 87 03/20/24 01:33 103 H 18 03/20/24 01:20 101 H 18 03/20/24 00:00 91 03/20/24 00:00 94 Autopap 03/19/24 23:41 98.1 F 95 18 88/50 L 98 03/19/24 22:00 101 H 03/19/24 21:03 107 H 03/19/24 20:00 114 H 03/19/24 20:00 97 Nasal Cannula 1 03/19/24 20:00 98.8 F 109 H 16 94/76 L 97 03/19/24 19:44 113 H 18 03/19/24 19:37 110 H 18 03/19/24 19:37 100 Nasal Cannula 1 03/19/24 19:00 2 03/19/24 18:00 111 H 03/19/24 16:00 112 H 03/19/24 16:00 100 Nasal Cannula 1 03/19/24 16:00 98.2 F 107 H 16 113/74 100 03/19/24 14:00 110 H 03/19/24 13:53 107 H 20 03/19/24 13:43 100 20 03/19/24 13:43 94 Nasal Cannula 1 03/19/24 12:00 120 H 03/19/24 12:00 93 Nasal Cannula 1 03/19/24 11:52 98.4 F 110 H 18 129/92 H 93 Intake/Output Intake/Output: Intake & Output 03/17/24 03/18/24 03/19/24 03/20/24 23:59 23:59 23:59 23:59 Intake Total 1280 480 950 645 Output Total -88 310 312 0 Balance 1368 170 638 645 Meds/Results Medications: Active Medications Generic Name Dose Route Start Last Admin Trade Name Freq PRN Reason Stop Dose Admin Acetaminophen 650 mg 03/09/24 18:43 03/14/24 21:37 Acetaminophen 325 Mg Tablet PO 650 mg Q4H PRN Administration Mild Pain (1-3) or Fever Albuterol/Ipratropium 3 ml 03/11/24 02:00 03/20/24 09:02 Ipratropium 0.5 Mg/Albuterol Sulfate 2.5 Mg Ampul.Neb 3 Ml INHALATION 3 ml Q6HRT CARIDAD Administration Albuterol/Ipratropium 3 ml 03/11/24 00:48 Ipratropium 0.5 Mg/Albuterol Sulfate 2.5 Mg Ampul.Neb 3 Ml INHALATION Q2HRT PRN Shortness Of Breath Or Wheezing Buspirone HCl 10 mg 03/10/24 09:00 03/20/24 08:46 Buspirone Hcl 10 Mg Tablet BY MOUTH 10 mg TID CARIDAD Administration Calcium Acetate 2,668 mg 03/10/24 08:00 03/20/24 08:46 Calcium Acetate 667 Mg Tablet PO 2,668 mg TIDWM CARIDAD Administration Calcium Carbonate 200 mg 03/09/24 23:10 03/19/24 11:44 Calcium Carbonate (Tums) 500 Mg (200 Mg Elemental) PO 200 mg HS PRN Administration Indigestion Cinacalcet 90 mg 03/10/24 09:00 03/20/24 08:46 Cinacalcet 30 Mg Tablet PO 90 mg DAILY CARIDAD Administration Dextrose 12.5 gm 03/12/24 11:41 Dextrose 50% 25 Gm/50 Ml Syringe IV PUSH PRN PRN Hypoglycemia Protocol Diphenoxylate HCl/Atropine 1 tablet 03/12/24 11:39 03/18/24 10:27 Diphenoxylate/Atropine (*Crx) 2.5 Mg Tablet PO 1 tablet QID PRN Administration Diarrhea Escitalopram Oxalate 10 mg 03/10/24 09:00 03/20/24 08:46 Escitalopram Oxalate 10 Mg Tablet PO 10 mg DAILY CARIDAD Administration Gentamicin Sulfate 1 applic 03/09/24 21:00 03/19/24 22:42 Gentamicin Sulfate 0.1% Cr 15 Gm Tube TOPICAL Not Given QHS CARIDAD Glucagon 1 mg 03/12/24 11:41 Glucagon For Inj 1 Mg Vial IM PRN PRN Hypoglycemia Protocol Glucose 15 gm 03/12/24 11:41 Glucose Oral Gel 15 Gm Of Glucse In 37.5 Gm Tube PO PRN PRN Hypoglycemia Protocol Heparin Sodium (Porcine) 5,000 units 03/10/24 14:00 03/20/24 06:37 Heparin Sodium 5,000 Units/Ml Vial SUB-Q 5,000 units Q8HR CARIDAD Administration Hydralazine HCl 10 mg 03/11/24 11:03 03/11/24 21:31 Hydralazine Hcl 20 Mg/Ml Vial IV PUSH 10 mg Q4H PRN Administration Blood Pressure - High Dextrose 1,000 mls @ 100 mls/hr 03/12/24 11:41 Dextrose 5% 1,000 Ml IVPB PRN PRN Hypoglycemia Protocol Insulin Aspart 3 - 6 units 03/12/24 12:00 03/20/24 08:46 Insulin Aspart (*Bkc) 100 Units/Ml SUB-Q Not Given TIDWM CARIDAD Protocol Insulin Aspart 1 - 3 units 03/12/24 21:00 03/19/24 22:41 Insulin Aspart (*Bkc) 100 Units/Ml SUB-Q Not Given HS CARIDAD Protocol Labetalol HCl 100 mg 03/10/24 09:00 03/20/24 08:45 Labetalol Hcl 100 Mg Tablet PO 100 mg Q12HR CARIDAD Administration Melatonin 20 mg 03/10/24 21:00 03/10/24 20:33 Melatonin 5 Mg Tablet PO 20 mg QHS CARIDAD Administration Melatonin 5 mg 03/13/24 19:50 03/19/24 21:04 Melatonin 5 Mg Tablet PO 5 mg HS PRN Administration Insomnia Metolazone 5 mg 03/10/24 09:00 03/12/24 09:00 Metolazone 5 Mg Tablet PO Not Given DAILY CARIDAD *Home Med*Ferric 0 mg 03/10/24 08:00 03/20/24 08:46 Citrate [Auryxia] PO 04/09/24 07:59 840 mg 210 Mg Iron Tablet TIDWM [facility] Administration Nortriptyline HCl 50 mg 03/10/24 21:00 03/19/24 21:03 Nortriptyline Hcl 25 Mg Capsule PO 50 mg QHS [facility] Administration Ondansetron HCl 4 mg 03/09/24 18:43 03/19/24 13:30 Ondansetron Inj 4 Mg/2 Ml Vial IV PUSH 4 mg Q4H PRN Administration Nausea Pantoprazole Sodium 40 mg 03/10/24 09:00 03/20/24 08:46 Pantoprazole 40 Mg Tablet PO 40 mg QAM [facility] Administration Torsemide 100 mg 03/11/24 17:00 03/12/24 09:00 Torsemide 20 Mg Tablet PO Not Given BID [facility] Radiology Results: ITS Impressions Abdomen X-Ray 03/18/24 10:23 IMPRESSION: 1. Peritoneal dialysis catheter coiled central pelvis. Chest X-Ray 03/19/24 09:16 Impression: Clear lungs. Labs Labs: Laboratory Tests 03/20/24 04:30 03/20/24 04:30 Calcium 8.8 Phosphorus 4.6 H Magnesium 1.8 Total Bilirubin 0.4 AST 24 ALT 45 Alkaline Phosphatase 108 Total Protein 6.0 L Albumin 3.1 L
--- NOTE | 2024-03-20 10:08 | P.PNIM_ITS ---
Progress Note: A&P Assessment and Plan (1) Acute hypercapnic respiratory failure: Code(s): J96.02 - Acute respiratory failure with hypercapnia Status: Acute Assessment and Plan: Acute hypercapnic respiratory failure likely related to volume overload, influenza A pneumonia, questionable COPD as patient has a history of tobacco use and currently smokes marijuana -03/11: Transferred from medical floor to ICU for hypoxic and hypercapnic respiratory failure, wheezing, volume overload, possible pneumonia -03/09: Influenza A positive Patient is on continue course ceftriaxone and vancomycin. Concluded azithr omycin 03/17/2024 -continue Tamiflu Patient on high-flow oxygen/Airvo. Been lowered down to 3 L high-flow and currently on room air. Home oxygen evaluation prior to discharge. Steroid discontinued Now -incentive spirometry, up in chair (2) End-stage renal disease on peritoneal dialysis: Code(s): N18.6 - End stage renal disease; Z99.2 - Dependence on renal dialysis Status: Acute Assessment and Plan: End-stage renal disease on peritoneal dialysis PD schedule per network desktop support specialist patient also is on torsemide, metolazone at home, will continue patient on fluid restriction per network desktop support specialist (3) Fluid overload: Qualifiers: Hypervolemia type: unspecified Qualified Code(s): E87.70 - Fluid overload, unspecified Code(s): E87.70 - Fluid overload, unspecified Status: Acute Assessment and Plan: Likely related to incomplete peritoneal dialysis at home -continue PD per network desktop support specialist -improved (4) HTN (hypertension): Code(s): I10 - Essential (primary) hypertension Status: Chronic Assessment and Plan: Essential hypertension, hold amlodipine, labetalol and blood pressures are within normal limits for now NT p.r.n. hydralazine Restarted labetalol (5) Polyneuropathy: Code(s): G62.9 - Polyneuropathy, unspecified Status: Acute Assessment and Plan: Off gabapentin since patient has been having tremor-like/asterixis movements -continue nortriptyline (6) Influenza A: Code(s): J10.1 - Influenza due to other identified influenza virus with other respiratory manifestations Status: Acute Assessment and Plan: Treated with Tamiflu x2 does due to peritoneal dialysis (7) Electrolyte abnormality: Code(s): E87.8 - Other disorders of electrolyte and fluid balance, not elsewhere cl assified Status: Acute Assessment and Plan: Replace low potassium Plan DVT prophylaxis: Heparin SQ Stress ulcer prophylaxis: Protonix Nutrition: Diet ordered Code Status: Full code Subjective Date/time seen: 03/20/24 10:09 Interval history: He has taken oxygen off this a.m.. Saturating well. Denies any chest pain or shortness of breath. He would like to go home. Review of Systems Review of Systems: All systems reviewed & are unremarkable except as noted in HPI and below Exam Narrative: GENERAL: Well-appearing, in no acute distress. Well-nourished. - EYES: EOMI. Anicteric. - HENT: Moist mucous membranes. - LUNGS: Coarse breath sound bilaterall y no wheezing, rhonchi, or rales. - CARDIOVASCULAR: Regular rate and rhyt hm sinus rhythm on telemetry. No murmur. No JVD. - ABDOMEN: Soft, non-tender and non-dist ended. No palpable masses. - EXTREMITIES: No edema. Peripheral puls es 2+. Non-tender. - NEUROLOGIC: No focal neurological defi cits. CN II-XII grossly intact. General weakness - PSYCHIATRIC: Awake, Alert and oriented x 3. Appropriate mood and affect. - SKIN: No rashes or lesions. Warm. - LYMPH: No cervical lymphadenopathy. Objective Data Vital Signs Vital Signs: Vital Signs - 24 hr 03/19/24 11:52 03/19/24 12:00 03/19/24 12:00 Temperature 98.4 F Pulse Rate 110 H 120 H Respiratory Rate 18 Blood Pressure 129/92 H Pulse Oximetry 93 93 Oxygen Delivery Nasal Cannula Oxygen Flow Rate 1 Fraction of Inspired Oxygen 03/19/24 13:43 03/19/24 13:43 03/19/24 13:53 Temperature Pulse Rate 100 107 H Respiratory Rate 20 20 Blood Pressure Pulse Oximetry 94 Oxygen Delivery Nasal Cannula Oxygen Flow Rate 1 Fraction of Inspired Oxygen 24 03/19/24 14:00 03/19/24 16:00 03/19/24 16:00 Temperature 98.2 F Pulse Rate 110 H 107 H Respiratory Rate 16 Blood Pressure 113/74 Pulse Oximetry 100 100 Oxygen Delivery Nasal Cannula Oxygen Flow Rate 1 Fraction of Inspired Oxygen 03/19/24 16:00 03/19/24 18:00 03/19/24 19:00 Temperature Pulse Rate 112 H 111 H Respiratory Rate Blood Pressure Pulse Oximetry Oxygen Delivery Oxygen Flow Rate 2 Fraction of Inspired Oxygen 03/19/24 19:37 03/19/24 19:37 03/19/24 19:44 Temperature Pulse Rate 110 H 113 H Respiratory Rate 18 18 Blood Pressure Pulse Oximetry 100 Oxygen Delivery Nasal Cannula Oxygen Flow Rate 1 Fraction of Inspired Oxygen 03/19/24 20:00 03/19/24 20:00 03/19/24 20:00 Temperature 98.8 F Pulse Rate 109 H 114 H Respiratory Rate 16 Blood Pressure 94/76 L Pulse Oximetry 97 97 Oxygen Delivery Nasal Cannula Oxygen Flow Rate 1 Fraction of Inspired Oxygen 03/19/24 21:03 03/19/24 22:00 03/19/24 23:41 Temperature 98.1 F Pulse Rate 107 H 101 H 95 Respiratory Rate 18 Blood Pressure 88/50 L Pulse Oximetry 98 Oxygen Delivery Oxygen Flow Rate Fraction of Inspired Oxygen 03/20/24 00:00 03/20/24 00:00 03/20/24 01:20 Temperature Pulse Rate 91 101 H Respiratory Rate 18 Blood Pressure Pulse Oximetry 94 Oxygen Delivery Autopap Oxygen Flow Rate Fraction of Inspired Oxygen 03/20/24 01:33 03/20/24 02:00 03/20/24 04:00 Temperature Pulse Rate 103 H 87 Respiratory Rate 18 Blood Pressure Pulse Oximetry 98 Oxygen Delivery Autopap Oxygen Flow Rate Fraction of Inspired Oxygen 03/20/24 04:00 03/20/24 04:21 03/20/24 06:00 Temperature 97.3 F L Pulse Rate 86 88 87 Respiratory Rate 20 Blood Pressure 90/58 L Pulse Oximetry 96 Oxygen Delivery Oxygen Flow Rate Fraction of Inspired Oxygen 03/20/24 07:42 03/20/24 08:45 03/20/24 09:03 Temperature 97.8 F Pulse Rate 92 93 89 Respiratory Rate 18 20 Blood Pressure 92/62 L Pulse Oximetry 98 99 Oxygen Delivery Nasal Cannula Oxygen Flow Rate 1 Fraction of Inspired Oxygen 03/20/24 09:03 03/20/24 09:26 Temperature Pulse Rate 89 87 Respiratory Rate 20 20 Blood Pressure Pulse Oximetry Oxygen Delivery Oxygen Flow Rate Fraction of Inspired Oxygen Intake/Output Intake/Output: Intake & Output 03/17/24 03/18/24 03/19/24 03/20/24 23:59 23:59 23:59 23:59 Intake Total 1280 480 950 375 Output Total -88 310 312 0 Balance 1368 170 638 375 Meds/Results Medications: Active Medications Generic Name Dose Route Start Last Admin Trade Name Freq PRN Reason Stop Dose Admin Acetaminophen 650 mg 03/09/24 18:43 03/14/24 21:37 Acetaminophen 325 Mg Tablet PO 650 mg Q4H PRN Administration Mild Pain (1-3) or Fever Albuterol/Ipratropium 3 ml 03/11/24 02:00 03/20/24 09:02 Ipratropium 0.5 Mg/Albuterol Sulfate 2.5 Mg Ampul.Neb 3 Ml INHALATION 3 ml Q6HRT CARIDAD Administration Albuterol/Ipratropium 3 ml 03/11/24 00:48 Ipratropium 0.5 Mg/Albuterol Sulfate 2.5 Mg Ampul.Neb 3 Ml INHALATION Q2HRT PRN Shortness Of Breath Or Wheezing Buspirone HCl 10 mg 03/10/24 09:00 03/20/24 08:46 Buspirone Hcl 10 Mg Tablet BY MOUTH 10 mg TID CARIDAD Administration Calcium Acetate 2,668 mg 03/10/24 08:00 03/20/24 08:46 Calcium Acetate 667 Mg Tablet PO 2,668 mg TIDWM CARIDAD Administration Calcium Carbonate 200 mg 03/09/24 23:10 03/19/24 11:44 Calcium Carbonate (Tums) 500 Mg (200 Mg Elemental) PO 200 mg HS PRN Administration Indigestion Cinacalcet 90 mg 03/10/24 09:00 03/20/24 08:46 Cinacalcet 30 Mg Tablet PO 90 mg DAILY CARIDAD Administration Dextrose 12.5 gm 03/12/24 11:41 Dextrose 50% 25 Gm/50 Ml Syringe IV PUSH PRN PRN Hypoglycemia Protocol Diphenoxylate HCl/Atropine 1 tablet 03/12/24 11:39 03/18/24 10:27 Diphenoxylate/Atropine (*Crx) 2.5 Mg Tablet PO 1 tablet QID PRN Administration Diarrhea Escitalopram Oxalate 10 mg 03/10/24 09:00 03/20/24 08:46 Escitalopram Oxalate 10 Mg Tablet PO 10 mg DAILY CARIDAD Administration Gentamicin Sulfate 1 applic 03/09/24 21:00 03/19/24 22:42 Gentamicin Sulfate 0.1% Cr 15 Gm Tube TOPICAL Not Given QHS CARIDAD Glucagon 1 mg 03/12/24 11:41 Glucagon For Inj 1 Mg Vial IM PRN PRN Hypoglycemia Protocol Glucose 15 gm 03/12/24 11:41 Glucose Oral Gel 15 Gm Of Glucse In 37.5 Gm Tube PO PRN PRN Hypoglycemia Protocol Heparin Sodium (Porcine) 5,000 units 03/10/24 14:00 03/20/24 06:37 Heparin Sodium 5,000 Units/Ml Vial SUB-Q 5,000 units Q8HR CARIDAD Administration Hydralazine HCl 10 mg 03/11/24 11:03 03/11/24 21:31 Hydralazine Hcl 20 Mg/Ml Vial IV PUSH 10 mg Q4H PRN Administration Blood Pressure - High Dextrose 1,000 mls @ 100 mls/hr 03/12/24 11:41 Dextrose 5% 1,000 Ml IVPB PRN PRN Hypoglycemia Protocol Insulin Aspart 3 - 6 units 03/12/24 12:00 03/20/24 08:46 Insulin Aspart (*Bkc) 100 Units/Ml SUB-Q Not Given TIDWM CARIDAD Protocol Insulin Aspart 1 - 3 units 03/12/24 21:00 03/19/24 22:41 Insulin Aspart (*Bkc) 100 Units/Ml SUB-Q Not Given HS CARIDAD Protocol Labetalol HCl 100 mg 03/10/24 09:00 03/20/24 08:45 Labetalol Hcl 100 Mg Tablet PO 100 mg Q12HR CARIDAD Administration Melatonin 20 mg 03/10/24 21:00 03/10/24 20:33 Melatonin 5 Mg Tablet PO 20 mg QHS CARIDAD Administration Melatonin 5 mg 03/13/24 19:50 03/19/24 21:04 Melatonin 5 Mg Tablet PO 5 mg HS PRN Administration Insomnia Metolazone 5 mg 03/10/24 09:00 03/12/24 09:00 Metolazone 5 Mg Tablet PO Not Given DAILY CARIDAD *Home Med*Ferric 0 mg 03/10/24 08:00 03/20/24 08:46 Citrate [Auryxia] PO 04/09/24 07:59 840 mg 210 Mg Iron Tablet TIDWM CARIDAD Administration Nortriptyline HCl 50 mg 03/10/24 21:00 03/19/24 21:03 Nortriptyline Hcl 25 Mg Capsule PO 50 mg QHS CARIDAD Administration Ondansetron HCl 4 mg 03/09/24 18:43 03/19/24 13:30 Ondansetron Inj 4 Mg/2 Ml Vial IV PUSH 4 mg Q4H PRN Administration Nausea Pantoprazole Sodium 40 mg 03/10/24 09:00 03/20/24 08:46 Pantoprazole 40 Mg Tablet PO 40 mg QAM CARIDAD Administration Torsemide 100 mg 03/11/24 17:00 03/12/24 09:00 Torsemide 20 Mg Tablet PO Not Given BID [facility] Radiology Results: ITS Impressions Abdomen X-Ray 03/18/24 10:23 IMPRESSION: 1. Peritoneal dialysis catheter coiled central pelvis. Chest X-Ray 03/19/24 09:16 Impression: Clear lungs. Labs Labs: Laboratory Results - last 24 hr 03/19/24 03/19/24 03/19/24 11:39 16:30 20:48 WBC RBC Hgb Hct MCV MCH MCHC RDW Plt Count MPV Sodium Potassium Chloride Carbon Dioxide Anion Gap BUN Creatinine Estim Creat Clear Calc Estimated GFR Glucose POC Capillary Glucose 118 H 150 H 119 H Calcium Phosphorus Magnesium Total Bilirubin AST ALT Alkaline Phosphatase Total Protein Albumin 03/20/24 03/20/24 04:30 07:44 WBC 19.3 H RBC 3.81 L Hgb 12.3 L Hct 38.2 L MCV 100.3 H MCH 32.3 MCHC 32.2 RDW 14.2 Plt Count 305 MPV 9.8 Sodium 134 L Potassium 3.1 L Chloride 96 L Carbon Dioxide 25 Anion Gap 13 H BUN 74 H Creatinine 12.98 H Estim Creat Clear Calc 7 Estimated GFR 4 L Glucose 121 H POC Capillary Glucose 83 Calcium 8.8 Phosphorus 4.6 H Magnesium 1.8 Total Bilirubin 0.4 AST 24 ALT 45 Alkaline Phosphatase 108 Total Protein 6.0 L Albumin 3.1 L
[2024-03-20 12:07] LABS: Glucose Point of Care 104 mg/dl (65-105)
[2024-03-20] MEDS: POTASSIUM CHLORIDE 20 MEQ ER TABLET PO (12:25)
[2024-03-20] MEDS: ONDANSETRON INJ 4 MG/2 ML VIAL IV PUSH (12:32)
--- NOTE | 2024-03-20 12:59 | P.DS_ITS ---
DS: Admitting Diagnosis Discharge Date 03/21/2024 Admitting Diagnosis Shortness of breath DS: Discharge Diagnosis Discharge Diagnosis (1) Acute hypercapnic respiratory failure: Code(s): J96.02 - Acute respiratory failure with hypercapnia Status: Acute (2) End-stage renal disease on peritoneal dialysis: Code(s): N18.6 - End stage renal disease; Z99.2 - Dependence on renal dialysis Status: Acute (3) Fluid overload: Qualifiers: Hypervolemia type: unspecified Qualified Code(s): E87.70 - Fluid overload, unspecified Code(s): E87.70 - Fluid overload, unspecified Status: Acute (4) HTN (hypertension): Code(s): I10 - Essential (primary) hypertension Status: Chronic (5) Polyneuropathy: Code(s): G62.9 - Polyneuropathy, unspecified Status: Acute (6) Influenza A: Code(s): J10.1 - Influenza due to other identified influenza virus with other respiratory manifestations Status: Acute (7) Electrolyte abnormality: Code(s): E87.8 - Other disorders of electrolyte and fluid balance, not elsewhere classified Status: Acute DS: Summary Hospital Course Hospital Course: # Acute hypercapnic respiratory failure: Acute hypercapnic respiratory failure likely related to volume overload, influenza A pneumonia, questionable COPD as patient has a history of tobacco use and currently smokes marijuana -03/11: Transferred from medical floor to ICU for hypoxic and hypercapnic respiratory failure, wheezing, volume overload, possible pneumonia -03/09: Influenza A positive Patient is on continue course ceftriaxone and vancomycin. Concluded azithromycin 03/17/2024. He concluded all anti course during the hospital stay He was also treated with Tamiflu and finished the course during hospital stay Patient was initially on high-flow oxygen/Airvo which was tapered down. By the time of discharge he was on room air. Home oxygen evaluation prior to discharge. He was also treated with steroid which has been completed during the hospital stay -incentive spirometry, up in chair # End-stage renal disease on peritoneal dialysis: End-stage renal disease on peritoneal dialysis PD schedule per associate dean of women patient also is on torsemide, metolazone at home, will continue patient on fluid restriction per associate dean of women # Fluid overload: Likely related to incomplete peritoneal dialysis at home -continue PD per associate dean of women -improved His weight was down from 121 kilos on admission to 101 Kilos by the time of discharge. # HTN (hypertension): History of essential hypertension, on multiple different medications. These were held during hospital stay. On labetalol was resumed. Which will be continued. Due to borderline blood pressure continue to hold rest of the blood pressure medication. # Polyneuropathy: Off gabapentin since patient has been having tremor-like/asterixis movements -continue nortriptyline # Influenza A: Treated with Tamiflu x2 does due to peritoneal dialysis # Electrolyte abnormality: Replace low potassium # DVT prophylaxis: Heparin SQ # Stress ulcer prophylaxis: Protonix # Nutrition: Diet ordered # Code Status: Full code Time Spent with Patient Time attestation: Total time spent providing and/or coordinating discharge services: 40 minutes Exam Narrative: GENERAL: Well-appearing, in no acute distress. Well-nourished. - EYES: EOMI. Anicteric. - HENT: Moist mucous membranes. - LUNGS: Coarse breath sound bilaterall y no wheezing, rhonchi, or rales. - CARDIOVASCULAR: Regular rate and rhyt hm sinus rhythm on telemetry. No murmur. No JVD. - ABDOMEN: Soft, non-tender and non-dist ended. No palpable masses. - EXTREMITIES: No edema. Peripheral puls es 2+. Non-tender. - NEUROLOGIC: No focal neurological defi cits. CN II-XII grossly intact. General weakness - PSYCHIATRIC: Awake, Alert and oriented x 3. Appropriate mood and affect. - SKIN: No rashes or lesions. Warm. - LYMPH: No cervical lymphadenopathy. DS: Data Data Completed and Pending Labs on day of discharge: Labs from last 24 hours 03/20/24 03/20/24 03/20/24 11:54 07:44 04:30 WBC 19.3 H RBC 3.81 L Hgb 12.3 L Hct 38.2 L MCV 100.3 H MCH 32.3 MCHC 32.2 RDW 14.2 Plt Count 305 MPV 9.8 Sodium 134 L Potassium 3.1 L Chloride 96 L Carbon Dioxide 25 Anion Gap 13 H BUN 74 H Creatinine 12.98 H Estim Creat Clear Calc 7 Estimated GFR 4 L Glucose 121 H POC Capillary Glucose 104 83 Calcium 8.8 Phosphorus 4.6 H Magnesium 1.8 Total Bilirubin 0.4 AST 24 ALT 45 Alkaline Phosphatase 108 Total Protein 6.0 L Albumin 3.1 L 03/19/24 03/19/24 20:48 16:30 WBC RBC Hgb Hct MCV MCH MCHC RDW Plt Count MPV Sodium Potassium Chloride Carbon Dioxide Anion Gap BUN Creatinine Estim Creat Clear Calc Estimated GFR Glucose POC Capillary Glucose 119 H 150 H Calcium Phosphorus Magnesium Total Bilirubin AST ALT Alkaline Phosphatase Total Protein Albumin Imaging Radiologist's impression: ITS Impressions Chest X-Ray 03/09/24 17:41 Impression: 1: Cardiomegaly with pulmonary vascular congestion. Chest X-Ray 03/11/24 06:32 IMPRESSION: 1. Airspace opacities in right lower lung zone, consistent with atelectasis versus pneumonia. Chest X-Ray 03/12/24 11:06 IMPRESSION: No focal infiltrate or effusion. Chest X-Ray 03/13/24 05:51 Impression: Possible mild central pulmonary venous congestive change. Abdomen X-Ray 03/18/24 10:23 IMPRESSION: 1. Peritoneal dialysis catheter coiled central pelvis. Chest X-Ray 03/19/24 09:16 Impression: Clear lungs. Discharge Plan Discharge Attending physician on discharge: Leoncio Grullon Consulting providers: Xavier Marcus; Jose Elias Sewell Discharging Clinician: Leoncio Grullon Anticipated Discharge Date/Time: 03/21/24 13:16 Patient Disposition: Home, Self-Care Activity: as tolerated Diet: heart healthy and renal Discharge Instructions: continue Peritoneal dialysis as previously ordered Patient Instructions: Antibiotic Form, Heart Failure (DC) Patient Language: Yi Stand Alone Forms: General Discharge Information Follow-up/Referrals: Angella Han APRN [Primary Care Provider] - 1 Week Discharge Medications: Continued calcium acetate 667 mg tablet 2,668 mg PO TIDWMEAL gentamicin 0.1 % cream 1 applic topical TID PRN (Reason: DIALYSIS CATH.) calcium carbonate [Tums] 200 mg calcium (500 mg) tablet,chewable 200 mg PO HS PRN (Reason: Indigestion) omeprazole 20 mg capsule,delayed release(DR/EC) 20 mg PO DAILY Qty: 90 1RF nortriptyline 50 mg capsule 50 mg PO QHS Qty: 30 6RF diphenoxylate-atropine 2.5-0.025 mg tablet 1 tablet PO QID PRN (Reason: diarrhea) Qty: 60 0RF multivitamin Tablet 1 tablet PO DAILY albuterol sulfate 90 mcg/actuation HFA aerosol inhaler 2 inh inhalation QID PRN (Reason: shortness of breath or wheezing) Qty: 8.5 2RF ondansetron 4 mg tablet,disintegrating 8 mg PO Q8H PRN (Reason: Nausea And Vomiting) Qty: 30 4RF Auryxia 210 mg iron Tablet 210 mg PO TIDWM Rx Instructions: administer with a meal cinacalcet 30 mg tablet 90 mg PO DAILY labetalol 200 mg tablet 100 mg PO BID potassium chloride [K-Tab] 20 mEq Tablet Extended Release 40 meq PO DAILY Qty: 15 0RF escitalopram oxalate 10 mg tablet 10 mg PO DAILY gabapentin 300 mg capsule See Rx Instructions .ROUTE .COMPLEX Qty: 270 0RF Dose Instruction: TAKE 1 CAPSULE BY MOUTH THREE TIMES DAILY Rx Instructions: TAKE 1 CAPSULE BY MOUTH THREE TIMES DAILY hydrocodone-acetaminophen 5-325 mg tablet 1 tablet PO Q8H PRN (Reason: Pain Rated 4-10) Qty: 90 0RF buspirone 10 mg tablet See Rx Instructions .ROUTE .COMPLEX Qty: 90 0RF Dose Instruction: TAKE 1 TABLET BY MOUTH THREE TIMES DAILY Rx Instructions: TAKE 1 TABLET BY MOUTH THREE TIMES DAILY Discontinued melatonin 10 mg capsule 20 mg PO QHS amlodipine 10 mg tablet 10 mg PO DAILY torsemide 100 mg tablet 100 mg PO QAM Qty: 30 6RF metolazone 5 mg tablet 5 mg PO DAILY Qty: 30 6RF Other Ambulatory Orders: Complete Blood Count with Diff (Routine) Timeframe: 1 Week Location: Determined by Patient Ordered By: Leoncio Grullon Comprehensive Metabolic Panel (Routine) Timeframe: 1 Week Location: Determined by Patient Ordered By: Leoncio Grullon Date of admission: 03/10/24 07:37 Primary Care Provider: Angella Han Admitting Provider: Dacia Saldaña Attending physician on admission: Dacia Saldaña Condition: Stable
[2024-03-20 16:40] LABS: Glucose Point of Care 109 mg/dl (65-105)
[2024-03-20] MEDS: MELATONIN 5 MG TABLET PO (21:07)
[2024-03-20] MEDS: NORTRIPTYLINE HCL 25 MG CAPSULE 50 MG PO (21:07)
[2024-03-20 22:08] LABS: Glucose Point of Care 99 mg/dl (65-105)
[2024-03-21] VITALS (12 sets, daily range): BP systolic 86–108; BP diastolic 59–65; PULSE 68–120; RESP 18–20; TEMP 36.3–37.5; O2SAT 90–97
[2024-03-21] MEDS: IPRATROPIUM 0.5 MG/ALBUTEROL SULFATE 2.5 MG AMPUL.NEB 3 ML INHALATION ×2 (02:35→09:41)
[2024-03-21] MEDS: HEPARIN SODIUM 5,000 UNITS/ML VIAL 5000 UNITS SUB-Q (05:52)
[2024-03-21 06:31] LABS: Hematocrit 39.5 % (42.0-52.0); Hemoglobin 12.6 g/dL (14.0-18.0); Mean Corpuscular HGB Conc 31.9 g/dl (32-36); Mean Corpuscular Hemoglobin 32.2 pg (26-34); Platelet Count Result 327 k/mm3 (150-375); Red Blood Count 3.91 M/mm3 (4.6-6.20); Red Cell Distribution Width 14.2 % (11.5-14.5); White Blood Count 20.5 K/mm3 (4.5-10.0)
[2024-03-21 06:44] LABS: Sodium 132 mmol/L (137-145)
[2024-03-21 06:58] LABS: Albumin Level 3.3 g/dL (3.5-5.1); Anion Gap 14 mmol/L (4-12); Blood Urea Nitrogen 71 mg/dL (9-20); Calcium 8.4 mg/dL (8.4-10.2); Carbon Dioxide 23 mmol/L (22-30); Chloride 95 mmol/L (98-107); Estimated CRCL calculation 7 ml/min; Estimated Glomerular Filt Rate 4; Glucose 108 mg/dL (65-110); Magnesium 1.7 mg/dL (1.6-2.3); Phosphorus 4.5 mg/dL (2.5-4.5); Potassium 2.9 mmol/L (3.4-5.0)
[2024-03-21] MEDS: CINACALCET 30 MG TABLET 90 MG PO (08:30)
[2024-03-21] MEDS: ESCITALOPRAM OXALATE 10 MG TABLET PO (08:30)
[2024-03-21] MEDS: PANTOPRAZOLE 40 MG TABLET PO (08:30)
[2024-03-21] MEDS: busPIRone HCL 10 MG TABLET BY MOUTH ×2 (08:30→12:25)
[2024-03-21] MEDS: POTASSIUM CHLORIDE 20 MEQ ER TABLET 40 MEQ PO (08:32)
[2024-03-21 08:34] LABS: Glucose Point of Care 101 mg/dl (65-105)
--- NOTE | 2024-03-21 11:26 | P.PNNP_ITS ---
Progress Note: A&P Assessment and Plan (1) End stage renal disease: Code(s): N18.6 - End stage renal disease Status: Chronic Assessment and Plan: * continue nightly CCPD * s/p 24 hour sessions of PD x 3 days (03/10, 03/11, and 03/12) with aggressive ultrafiltration/fluid removal * follow electrolytes, volume status, and clearance * replete electrolytes as needed (2) Acute hypercapnic respiratory failure: Code(s): J96.02 - Acute respiratory failure with hypercapnia Status: Acute Assessment and Plan: * resolving/resolved * multifactorial etiology: * volume overload * pneumonia * influenza * questionable COPD * empiric antibiotics on admission - off currently * off steroids now as well * follow cultures - negative to date * wean supplemental oxygen as tolerated - on room air currently * follow respiratory status (3) Fluid overload: Qualifiers: Hypervolemia type: unspecified Qualified Code(s): E87.70 - Fluid overload, unspecified Code(s): E87.70 - Fluid overload, unspecified Status: Acute Assessment and Plan: * clinical improvement noted * as noted on presentation * s/p aggressive ultrafiltation/fluid removal with PD x 3 days (24 hour treatments) * almost 10 - 12L negative following this intervention * continue fluid and salt restriction (4) Influenza A: Code(s): J10.1 - Influenza due to other identified influenza virus with other respiratory manifestations Status: Acute Assessment and Plan: * positive testing noted * s/p Tamiflu 30 mg x 1 dose * supportive therapy (5) Hyponatremia: Code(s): E87.1 - Hypo-osmolality and hyponatremia Status: Acute Assessment and Plan: * sodium fluctuating * related to ESRD and increased free water intake + volume overload * on fluid restriction and fluid removal with PD (6) HTN (hypertension): Code(s): I10 - Essential (primary) hypertension Status: Chronic Assessment and Plan: * despite known history, relative hypotension noted previously * suspect low BP due to aggressive fluid removal/ultrafiltration with PD * BP medications with parameters * follow trend of hemodynamics Not opposed to discharge from renal perspective if otherwise medically stable. Will continue to follow. L Subjective Date/time seen: 03/21/24 11:26 Interval history: Follow-up for end stage renal disease on peritoneal dialysis. Tolerated peritoneal dialysis treatment last night without any issues or problems; breathing/respiratory status remains stable if not improved (off supplemental oxygen x 48 hours); no other events overnight or earlier this morning; anxious for discharge. Exam 2 Narrative: General: male who appears older than stated age in NAD Heart: normal S1 and S2; no rub Lungs: clear anteriorly Abdomen: soft, nontender, nondistended, positive bowel sounds Extremities: no cyanosis or clubbing; trace edema Skin: no rash or nodules Objective Data Vital Signs Vital Signs: Vital Signs Temp Pulse Resp BP Pulse Ox O2 Del Method O2 Flow Rate 03/21/24 09:52 92 20 03/21/24 09:42 94 20 03/21/24 09:42 94 Room Air 03/21/24 08:30 97.4 F L 88 18 108/65 03/21/24 08:30 Room Air 03/21/24 08:00 99.2 F 95 18 90/59 L 94 03/21/24 04:00 97.4 F L 93 18 108/65 96 03/21/24 02:45 75 20 03/21/24 02:35 68 20 03/21/24 00:00 98.1 F 97 20 100/62 90 03/20/24 21:43 0 03/20/24 21:07 108 H 03/20/24 20:51 108 H 18 03/20/24 20:42 101 H 18 03/20/24 20:42 92 Room Air 03/20/24 20:00 92 Nasal Cannula 2 03/20/24 20:00 99.0 F 100 20 99/56 L 94 03/20/24 16:00 98.6 F 94 18 92 03/20/24 15:48 84 20 03/20/24 15:42 89 20 Intake/Output Intake/Output: Intake & Output 03/18/24 03/19/24 03/20/24 03/21/24 23:59 23:59 23:59 23:59 Intake Total 525 323 1729 0 Output Total 310 312 51 146 Balance 419 341 7674 -146 Meds/Results Medications: Active Medications Generic Name Dose Route Start Last Admin Trade Name Freq PRN Reason Stop Dose Admin Acetaminophen 650 mg 03/09/24 18:43 03/14/24 21:37 Acetaminophen 325 Mg Tablet PO 650 mg Q4H PRN Administration Mild Pain (1-3) or Fever Albuterol/Ipratropium 3 ml 03/11/24 02:00 03/21/24 09:41 Ipratropium 0.5 Mg/Albuterol Sulfate 2.5 Mg Ampul.Neb 3 Ml INHALATION 3 ml Q6HRT CARIDAD Administration Albuterol/Ipratropium 3 ml 03/11/24 00:48 Ipratropium 0.5 Mg/Albuterol Sulfate 2.5 Mg Ampul.Neb 3 Ml INHALATION Q2HRT PRN Shortness Of Breath Or Wheezing Buspirone HCl 10 mg 03/10/24 09:00 03/21/24 12:25 Buspirone Hcl 10 Mg Tablet BY MOUTH 10 mg TID CARIDAD Administration Calcium Acetate 2,668 mg 03/10/24 08:00 03/21/24 12:25 Calcium Acetate 667 Mg Tablet PO Not Given TIDWM CARIDAD Calcium Carbonate 200 mg 03/09/24 23:10 03/19/24 11:44 Calcium Carbonate (Tums) 500 Mg (200 Mg Elemental) PO 200 mg HS PRN Administration Indigestion Cinacalcet 90 mg 03/10/24 09:00 03/21/24 08:30 Cinacalcet 30 Mg Tablet PO 90 mg DAILY CARIDAD Administration Dextrose 12.5 gm 03/12/24 11:41 Dextrose 50% 25 Gm/50 Ml Syringe IV PUSH PRN PRN Hypoglycemia Protocol Diphenoxylate HCl/Atropine 1 tablet 03/12/24 11:39 03/18/24 10:27 Diphenoxylate/Atropine (*Crx) 2.5 Mg Tablet PO 1 tablet QID PRN Administration Diarrhea Escitalopram Oxalate 10 mg 03/10/24 09:00 03/21/24 08:30 Escitalopram Oxalate 10 Mg Tablet PO 10 mg DAILY CARIDAD Administration Gentamicin Sulfate 1 applic 03/09/24 21:00 03/19/24 22:42 Gentamicin Sulfate 0.1% Cr 15 Gm Tube TOPICAL Not Given QHS CARIDAD Glucagon 1 mg 03/12/24 11:41 Glucagon For Inj 1 Mg Vial IM PRN PRN Hypoglycemia Protocol Glucose 15 gm 03/12/24 11:41 Glucose Oral Gel 15 Gm Of Glucse In 37.5 Gm Tube PO PRN PRN Hypoglycemia Protocol Heparin Sodium (Porcine) 5,000 units 03/10/24 14:00 03/21/24 05:52 Heparin Sodium 5,000 Units/Ml Vial SUB-Q 5,000 units Q8HR CARIDAD Administration Hydralazine HCl 10 mg 03/11/24 11:03 03/11/24 21:31 Hydralazine Hcl 20 Mg/Ml Vial IV PUSH 10 mg Q4H PRN Administration Blood Pressure - High Dextrose 1,000 mls @ 100 mls/hr 03/12/24 11:41 Dextrose 5% 1,000 Ml IVPB PRN PRN Hypoglycemia Protocol Insulin Aspart 3 - 6 units 03/12/24 12:00 03/21/24 12:05 Insulin Aspart (*Bkc) 100 Units/Ml SUB-Q Not Given TIDWM COUNTS INCLUDE 234 BEDS AT THE [facility] Protocol Insulin Aspart 1 - 3 units 03/12/24 21:00 03/20/24 21:08 Insulin Aspart (*Bkc) 100 Units/Ml SUB-Q Not Given HS COUNTS INCLUDE 234 BEDS AT THE [facility] Protocol Labetalol HCl 100 mg 03/10/24 09:00 03/21/24 11:24 Labetalol Hcl 100 Mg Tablet PO Not Given Q12HR COUNTS INCLUDE 234 BEDS AT THE [facility] Melatonin 20 mg 03/10/24 21:00 03/10/24 20:33 Melatonin 5 Mg Tablet PO 20 mg QHS COUNTS INCLUDE 234 BEDS AT THE [facility] Administration Melatonin 5 mg 03/13/24 19:50 03/20/24 21:07 Melatonin 5 Mg Tablet PO 5 mg HS PRN Administration Insomnia Metolazone 5 mg 03/10/24 09:00 03/12/24 09:00 Metolazone 5 Mg Tablet PO Not Given DAILY COUNTS INCLUDE 234 BEDS AT THE [facility] Miscellaneous Information 1 each 03/21/24 00:01 Lomotil Needs To Be Renewed Or It Will Automatically Discontinue. XX 04/20/24 00:00 CLARIFY CARIDAD *Home Med*Ferric 0 mg 03/10/24 08:00 03/21/24 12:25 Citrate [Auryxia] PO 04/09/24 07:59 Not Given 210 Mg Iron Tablet TIDWM COUNTS INCLUDE 234 BEDS AT [facility] Nortriptyline HCl 50 mg 03/10/24 21:00 03/20/24 21:07 Nortriptyline Hcl 25 Mg Capsule PO 50 mg QHS CARIDAD Administration Ondansetron HCl 4 mg 03/09/24 18:43 03/20/24 12:32 Ondansetron Inj 4 Mg/2 Ml Vial IV PUSH 4 mg Q4H PRN Administration Nausea Pantoprazole Sodium 40 mg 03/10/24 09:00 03/21/24 08:30 Pantoprazole 40 Mg Tablet PO 40 mg QAM CARIDAD Administration Potassium Chloride 40 meq 03/21/24 09:00 03/21/24 10:22 Potassium Chloride 20 Meq Er Tablet PO Not Given DAILY CARIDAD Torsemide 100 mg 03/11/24 17:00 03/12/24 09:00 Torsemide 20 Mg Tablet PO Not Given BID CARIDAD Radiology Results: ITS Impressions Abdomen X-Ray 03/18/24 10:23 IMPRESSION: 1. Peritoneal dialysis catheter coiled central pelvis. Chest X-Ray 03/19/24 09:16 Impression: Clear lungs. Labs Labs: Laboratory Tests 03/21/24 06:06 03/21/24 06:06 Calcium 8.4 Phosphorus 4.5 Magnesium 1.7 Albumin 3.3 L
[2024-03-21 12:00] LABS: Glucose Point of Care 111 mg/dl (65-105)
[2024-03-21] MEDS: POTASSIUM CHLORIDE 20 MEQ ER TABLET PO (12:25)
--- NOTE | 2024-03-21 14:08 | PCRCNOTE ---
Home O3 eval done, no home O2 needed at this time, RN aware.
== END 2024-03-21 15:00 | disposition home or self-care (01) | DRG 871 ==
LOC: ANHED 18:49 → ANH2MED 19:44 → ANHICU 03-11 07:16 → ANHIMU 03-16 18:12 → ANH3MEDSUR 03-20 13:03 → ANHIMU 03-22 09:58
PROVIDERS: Internal Medicine; Internal Medicine Nephrology; Admitting Provider Hospitalist; Emergency Provider Emergency Medicine; PCP Nurse Practitioner Family; Visit Provider Internal Medicine
DX: A41.9 Sepsis, unspecified organism (principal); G93.41 Metabolic encephalopathy; J96.01 Acute respiratory failure with hypoxia; J96.02 Acute respiratory failure with hypercapnia; N18.6 End stage renal disease; I50.33 Acute on chronic diastolic (congestive) heart failure; J44.0 Chronic obstructive pulmonary disease with (acute) lower respiratory infection; J81.1 Chronic pulmonary edema; I13.2 Hypertensive heart and chronic kidney disease with heart failure and with stage 5 chronic kidney disease, or end stage renal disease; E87.1 Hypo-osmolality and hyponatremia; D63.1 Anemia in chronic kidney disease; E55.9 Vitamin D deficiency, unspecified; E66.9 Obesity, unspecified; F12.90 Cannabis use, unspecified, uncomplicated; I73.9 Peripheral vascular disease, unspecified; G62.9 Polyneuropathy, unspecified; J10.1 Influenza due to other identified influenza virus with other respiratory manifestations; Z99.2 Dependence on renal dialysis; Z87.891 Personal history of nicotine dependence; Z20.822 Contact with and (suspected) exposure to COVID-19
CPT/HCPCS: 36415; 36600; 71045; 71046; 74018; 80053; 80069; 80202; 82375; 82607; 82728; 82746; 82805; 82948; 83036; 83050; 83540; 83550; 83605; 83735; 83880; 83883; 84100; 84145; 84155; 84165; 84443; 85018; 85025; 85027; 85046; 85610; 85730; 86038; 86039; 86334; 86592; 86706; 87040; 87340; 87637; 87641; 90945; 93005; 94003; 94618; 94640; 96374; 96375; 99285; A9270; G0378; J0360; J0696; J1644; J1815; J2405; J2470; J2919; J3370; Q5105

== ENCOUNTER 2024-03-28 16:40 | Inpatient (IN) | payer MEDICARE, MEDICAID, SELFPAY ==
--- NOTE | ~2024-03-28 | XR_ITS ---
Portable chest x-ray Comparison: 03/28/2024 Clinical History: Shortness of breath Findings: There is central pulmonary venous congestive change. Possible minimal bibasilar interstiti al edema. Cardiomediastinal silhouette is stable. Bones and soft tissues are unremarkable. Impression: Central congestive change and possible minimal bibasilar interstitial edema. Reviewed, dictated and finalized at [facility]. ICAL PLANT OPERATOR Impression: Central congestive change and possible minimal bibasilar interstitial edema.
--- NOTE | ~2024-03-28 | CT_ITS ---
EXAMINATION: CT brain wo con DATE: 03/29/2024 14:52 INDICATION: Fall. TECHNIQUE: Computed tomography (CT) of the head was performed without intravenous contrast. The mA wa s adjusted according to patient size. Iterative reconstruction technique was employed. The dose-lengt h product was 681.00 mGy-cm. COMPARISON: Head CT 09/27/2023 FINDINGS: There is an 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. There are scattered areas of low attenuation in the cerebral white matter. There is no intracranial hemorrhage, acute infarction, or abnormal int racranial mass lesion. The ventricles are normal in size. There is mucosal thickening in the paranasa l sinuses. There are likely changes of right ocular lens replacement surgery. The mastoid air cells a re normal. IMPRESSION: 1. 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 2. Stable moderate nonspecific cerebral white matter disease, which likely represents chronic small v essel ischemic disease. Reviewed, dictated and finalized at location A. CONDITIONING MECHANIC INDUSTRIAL IMPRESSION: 1. 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 2. Stable moderate nonspecific cerebral white matter disease, which likely repr esents chronic small vessel ischemic disease.
--- NOTE | ~2024-03-28 | XR_ITS ---
CHEST RADIOGRAPH, PA AND LATERAL CLINICAL HISTORY: shortness of breath . COMPARISON: 03/19/2024 and dating back to 03/09/2014. TECHNIQUE: PA and lateral views of the chest. FINDINGS The cardiomediastinal silhouette is unremarkable. Peribronchial thickening is present. Increased interstitial markings are identified bilaterally, findings suggesting mild pulmonary vascul ar congestion. The remainder the lungs are clear. IMPRESSION: Peribronchial thickening with mild pulmonary vascular congestion, without focal infiltrate or effusio n. Reviewed, dictated and finalized at location A. TROMAGNET CRANE OPERATOR IMPRESSION: Peribronchial thickening with mild pulmonary vascular congestion, without focal infiltrate or effusion.
--- NOTE | ~2024-03-28 | CT_ITS ---
EXAMINATION: CT thoracic lumbar wo con DATE: 03/29/2024 14:53 INDICATION: Fall. TECHNIQUE: Computed tomography (CT) of the thoracic and lumbar spine was performed without intravenou s contrast. Automated exposure control and iterative reconstruction technique were employed. The dose -length product was 1460.46 mGy-cm. COMPARISON: None FINDINGS: CT THORACIC SPINE: There is mild emphysema. There is mild atelectasis bilaterally. There is 7 degrees dextrocurvature of thoracic spine. There is mild chronic anterior wedging of T6-T12 vertebral bodies . There is mildly decreased disc height from T3-T4 through T10-T11. There is multilevel facet joint o steoarthritis, severe on the right at T4-T5. On the right, there is moderate neural foraminal stenosi s at T2-T3 and T4-T5. There is mild central canal stenosis at T10-T11 and T11-T12. CT LUMBAR SPINE: Alignment is normal. There is mild chronic anterior wedging of L1 vertebral body. Th ere is mildly decreased disc height at L1-L2. The following disc levels are specifically discussed: L1-L2: The disc is bulging. There is mild bilateral facet joint osteoarthritis. There is mild bilater al neural foraminal stenosis. There is mild central canal stenosis. L2-L3: The disc is bulging. There is mild bilateral facet joint osteoarthritis. There is mild bilater al neural foraminal stenosis. There is mild central canal stenosis. L3-L4: The disc is bulging. There is moderate bilateral facet joint osteoarthritis. There is mild franklin ateral neural foraminal stenosis. There is mild central canal stenosis. L4-L5: The disc is bulging. There is severe right and moderate left facet joint osteoarthritis. There is mild right and moderate left neural foraminal stenosis. There is mild central canal stenosis. L5-S1: The disc is bulging. There is severe bilateral facet joint osteoarthritis. There is mild bilat eral neural foraminal stenosis. There is mild central canal stenosis. IMPRESSION: 1. No fracture. 2. Moderate thoracic and lumbar spondylosis. Reviewed, dictated and finalized at location A. STANT PLANT MANAGER
--- NOTE | ~2024-03-28 | CT_ITS ---
EXAMINATION: CT cervical spine wo con DATE: 03/29/2024 14:53 INDICATION: Neck injury. Fall. TECHNIQUE: Computed tomography (CT) of the cervical spine was performed without intravenous contrast. Automated exposure control and iterative reconstruction technique were employed. The dose-length pro duct was 515.94 mGy-cm. COMPARISON: None FINDINGS: There are nodules in the thyroid measuring up to 11 mm, likely not clinically significant. C1 ring is ununited posteriorly, a normal variant. There is 10 degrees dextroscoliosis of cervical sp ine. There is kyphosis of cervical spine. Vertebral body heights are normal. There is severely decrea sed disc height at C4-C5, C5-C6, and C6-C7. The following disc levels are specifically discussed: C2-C3: There is mild bilateral uncovertebral joint osteoarthritis. There is severe bilateral facet harper int osteoarthritis. There is mild right neural foraminal stenosis. There is no central canal stenosis . C3-C4: There is moderate right and mild left uncovertebral joint osteoarthritis. There is moderate bi lateral facet joint osteoarthritis. There is mild bilateral neural foraminal stenosis. There is mild central canal stenosis. C4-C5: There is mild right and severe left uncovertebral joint osteoarthritis. There is mild right an d moderate left facet joint osteoarthritis. There is moderate left neural foraminal stenosis. There i s moderate central canal stenosis. C5-C6: There is severe bilateral uncovertebral joint osteoarthritis. There is mild bilateral facet harper int osteoarthritis. There is mild bilateral neural foraminal stenosis. There is mild central canal st enosis. C6-C7: There is severe bilateral uncovertebral joint osteoarthritis. There is mild right and severe l eft facet joint osteoarthritis. There is moderate right and mild left neural foraminal stenosis. Ther e is mild central canal stenosis. C7-T1: There is no uncovertebral joint osteoarthritis. There is severe right and moderate left facet joint osteoarthritis. There is mild right neural foraminal stenosis. There is no central canal stenos is. IMPRESSION: 1. No fracture 2. Severe cervical spondylosis. Reviewed, dictated and finalized at location A. CULTURE EXTENSION SPECIALIST
--- NOTE | ~2024-03-28 | CT_ITS ---
CLINICAL INDICATION: Weakness, poor appetite, nausea and vomiting after 48 hours without peritoneal d ialysis. COMPARISON: 10/05/2023. TECHNIQUE: Multiple contiguous axial images of the abdomen and pelvis were performed without the admi nistration of intravenous contrast The dose-length product (DLP) was 1051.31 mGy-cm. Automated exposure control and iterative reconstruction technique were employed. FINDINGS/OBSERVATIONS: Visualized lower thorax: The bilateral lung bases are clear. The heart is borderline enlarged, without pericardial effusion. Small hiatal hernia is present. Abdomen/pelvis: Densely calcified atherosclerotic disease within the lower thoracic and abdominal aorta. Trace free fluid within the abdomen and pelvis, consistent with patient's history of peritoneal dialy sis. Bilateral kidneys are atrophic. Bowel loops are unremarkable. Gallbladder is distended (consistent with patient's history of decreased oral intake) without calcifi ed stones. The bladder is decompressed and otherwise unremarkable. The prostate gland is not enlarged. IMPRESSION: No acute intra-abdominal pathology. Innumerable nonacute findings, as detailed above. Reviewed, dictated and finalized at location A. N UP WORKER
--- NOTE | ~2024-03-28 | NM_ITS ---
EXAMINATION: NM william stress w perfusion DATE: 04/07/2024 12:15 INDICATION: Cardiomyopathy TECHNIQUE: Rest images were obtained following intravenous administration of 8.6 mCi Tc99m tetrofosmi n (Myoview). The patient was infused intravenously with Lexiscan (Regadenoson). Then, 28.5 mCi Tc99m tetrofosmin (Myoview) was administered intravenously, and stress images were obtained. Data was recon structed into short axis and horizontal and vertical long axis SPECT images. Gated SPECT images were also obtained. COMPARISON: None. FINDINGS: There is no definite reversible or fixed perfusion abnormality to suggest ischemia or infar ction. There is normal left ventricular chamber size, wall motion and low normal ejection fraction. Left ventricular ejection fraction measures 49%. IMPRESSION: 1. Normal myocardial perfusion at rest and during stress. 2. Left ventricular ejection fraction measuring 49%. Reviewed, dictated and finalized at location A. UITS ENGINEER
--- OUTSIDE RECORDS SUMMARY | 2024-03-28 16:43 | XMS_ITS | Data Portability ---
Author Organization [facility] [employer], Main Office Address [address] [place] [address] Care Team Providers Care Dialysis Clinical Manager Name Role Phone DASHA SUNG Primary Care Provider SP RANDHAWA Certified Nurse Practitioner Assessment No assessment recorded. Plan of Treatment [...] By Organization Details Last Modified Time 01/07/2023 [id number] we will work on getting a copy of his sinus CT report. An audiogram was ordered in the meantime [place] [id number] Not available 01/07/2023 15:13:48 Reason for Referral None Reported. Results Created Date Observation Date Name Description Value Unit Range Abnormal Flag Note LastModifiedBy Organization Detail LastModifiedTime 01/09/2012/12/2022 CT, sinus es, w/o contr ast No observ ation record ed. [place] [id number] [facility] [address], [place], [address], 01/11/2023 08:57:57 01/20/2012/12/2022 CT, sinus es, w/o contr ast No observ ation record ed. [place] [id number] [facility] [address], [place], [address], 01/19/2023 12:29:02 02/09/20 23 02/05/2023 audio gram + tympa nogra m No observ ation record ed. [address] [facility] [address] [place], [address], 02/09/2023 09:00:36 02/11/20 23 02/05/2023 audio gram + tympa nogra [place] [facility] record ed. [facility] [address], [place], [address], 02/19/2023 08:27:11 Result Notes None recorded. Problems Name Problem SNOMED Code Status Onset Date Resolution Date Notes Provider Name and Address Organization Details Recorded Time Sensorineural hearing loss 83649066 Active 2022 Rosey Pitts RN [facility], [employer] 3 15:10:08 Chronic pansinusitis 48464456 Active 2022 Brant Alvares MD [address] [place] [address], [facility] [address], [place], [address] [facility] [employer] 3 15:13:26 Problem Notes None recorded. Procedures Surgical History None recorded. Imaging Results Imaging Date Name Status LastModified by Organ [facility] Details LastModified Time 12/12/2022 CT, sinuses, w/o contrast completed [address] [facility], [place], [address], 01/11/2023 08:57:57 12/12/2022 CT, sinuses, w/o contrast completed [address], [place], [address], 01/19/2023 12:29:02 02/05/2023 audiogram + tympanogram completed [address] [facility] [address] [facility] [address], [place], [address], 02/09/2023 09:00:36 02/05/2023 audiogram + tympanogram completed [facility] [address] [facility] [address], [place], [address], 02/19/2023 08:27:11 Procedure Notes None recorded. Medical [...] Address Organization Details Last Updated DateTime 01/07/2023 881946.12 g 33.1 kg/m2 177.8 cm 97.6 [degF] Rosey Pitts RN [facility] [employer] 01/07/2023 14:57:57 Social History Question Answer Notes LastModified by Organizat ion Details LastModified Time Tobacco Smoking Status Current Every Day Smoker [place], [place] [employer] [facility] [employer] 12/16/2022 15:44:12 What Is Your Level Of [...] 15:43:44 Medical History Condition Response MRSA N ALLERGIES/HAYFEVER N BACK INJECTIONS N LUNG DISEASE/DISORDER N INSOMNIA N HISTORY OF DRUG ABUSE N ESRD N RADIATION / CHEMOTHERAPY N COPD N HIGH CHOLESTEROL / HYPERLIPIDEMIA N HYPERTHYROIDISM N PVD N BLOOD DISEASES N EAR OR HEARING PROBLEMS N HYPOTHYROIDISM N SHINGLES N DEPRESSION (INCLUDING POST ) N BACK / NECK PROBLEMS N HAVE YOU BEEN HOSPITALIZED OR SEEN IN E ER IN THE PAST YEAR ? N FAILED BACK SYNDROME N STROKE/TIA N POLYCYSTIC OVARIES N OBESITY N ANEURYSM N HISTORY WITH COMPLICATIONS WITH ANESTHES IA ? N Do you have Advance directive? N USE OF BLOOD THINNERS N NO SIGNIFICANT PAST MEDICAL HISTORY N DIABETES, TYPE N VON WILLIBRAND'S DISEASE N PARATHYROID DISEASE N ENT N SEASONAL ALLERGIES N HEARTBURN / REFLUX N POST LAMINECTOMY SYNDROME N HEPATITIS / LIVER DISEASE N SLEEP DISORDER N ARTERIAL INSUFFICIENCY N HEADACHES/MIGRAINES N SEIZURES/EPILEPSY N CHF N PACEMAKER N DIZZINESS N HEART DISEASE/HEART PROBLEMS N AIDS/HIV N NEUROPSYCHOLOGICAL N HYPERTENSION Y CANCER: SPECIFY Y TOURETTE'S N BLOOD TRANSFUSION N ANESTHESIA COMPLICATIONS N ANEMIA/BLOOD DISORDER N CHRONIC EAR INFECTIONS N ATRIAL FIBRILLATION N AUTOIMMUNE DISEASE N TUBERCULOSIS N Past Encounters Encounter ID Performer Location Encounter Start Date Encounter Closed Date Diagnosis/Indication Diagnosis SNOMED-CT Code Diagnosis ICD10 Code Diagnosis Note [id number] Brant Alvares MD [facility] [place] [address] [place] [address] 01/07/2023 14:50:41 01/07/2023 15:11:16 Sensorineural hearing loss 38969298 H90.5 Chronic pansinusitis 888 04719 J32.4 Health Concerns Section Related Observation LastModified by Organization Detai ls LastModified Time None Recorded Concern Status LastModified by Organization Details LastModified Time None Recorded Advance Directives Directive None Recorded Payers Encounter Date Sequence Insurance Name Policy Number Policy Patel Covered Member ID Patel Member ID Guarantor Name 01/07/2023 1 [place] Saul Rolon [id number] Real Rolon 01/07/2023 2 [place] [employer] Real Guerinbeth [id number] Real Gonzales Notes Date Note Type Note [...] report at this time. Brant Alvares MD [address] [place] [address], [place] [address], [place], [address], [place] [facility] 01/07/2023 15:14:08
--- OUTSIDE RECORDS SUMMARY | 2024-03-28 16:43 | XMS_ITS | Referral Summary ---
Author Organization [facility] al Address [address] [place] [address] Care Team Providers Care Independent Agent Music Education Name Role Phone Janet Moss RN Unavailable [phone] Milo Morrell MD Primary Care Provide r Encounters Date Type Department Care Team Description 03/22/2024 Documentation [facility] Transplant Kidney [address] [facility] 340 Mailstop -[address] [place] [address] Tasha Chapman 03/21/2024 Telephone [facility] Transplant Kidney [address] [facility] 3401 Mailstop -66-2 [place] [address] Janet Moss, CHIKA 03/08/2024 Telephone [facility] Transplant Kidney [address] [facility] 340 Mailop [phone] [place] [address] Jaent Moss, RN 01/26/2024 10:00 AM ENGRAVER LETTERING - 01/26/2024 11:59 PM ENGRAVER LETTERING Hospital Encounter [address] [address] ESRD (end stage renal disease) (CMS/HCC) (HCC) Discharge Disposition: Discharge to home or self care 12/31/2023 10:00 AM ENGRAVER LETTERING - 12/31/2023 11:59 PM ENGRAVER LETTERING Hospital Encounter [address] [address] ESRD (end stage renal disease) ([facility]) ([facility]) Discharge Disposition: Discharge to home or self care 12/31/2023 Orders Only [facility] Nephrology [address] [facility] 5th [place] [address] [place] [id number] Alejo Florence MD from Last 3 Months [...] Date Diagnosed Date End stage renal disease ([facility]) 04/05/2023 Immunizations Name Administration Dates Next Due [...] on file Legal Sex Male 9:46 AM ENGRAVER LETTERING Gender Identity Not on file Sexual Orientation Not on file Last Filed Vital Signs Vital Sign Reading Time Taken Comments Blood Pressure 163/115 04/12/2023 8:12 AM ENGRAVER LETTERING Pulse 77 04/12/2023 8:12 AM ENGRAVER LETTERING Temperature 36.7 ??C (98.1 ??F) 04/05/2023 1:04 PM CS T Respiratory Rate - - Oxygen Saturation - - Inhaled Oxygen Concentration - - Weight 112.5 kg (248 lb 0.3 oz) 04/12/2023 8:12 AM ENGRAVER LETTERING Height 175.3 cm (5' 9 ) 04/05/2023 1:04 PM ENGRAVER LETTERING Body Mass Index 36.63 04/05/2023 1:04 PM ENGRAVER LETTERING Plan of Treatment Not on file Procedures Procedure Name Priority Date/Time Associated Diagnosis Comments HLA ANTIBODY SCREEN BY PRA OR SAB PER SCHEDULE (CLASS I AND CLASS II) Routine 01/26/2024 10:00 AM ENGRAVER LETTERING ESRD (end stage renal disease) (CMS/HCC) (HCC) HLA ANTIBODY SCREEN - SAB (CLASS I AND CLASS II) Routine 12/31/2023 10:00 AM ENGRAVER LETTERING HLA ANTIBODY SCREEN - PRA (CLASS I AND CLASS II) Routine 12/31/2023 10:00 AM ENGRAVER LETTERING ESRD (end stage renal disease) (CMS/HCC) (HCC) HLA ANTIBODY SCREEN BY PRA OR SAB PER SCHEDULE (CLASS I AND CLASS II) Routine 12/31/2023 10:00 AM ENGRAVER LETTERING ESRD (end stage renal disease) (CMS/HCC) (HCC) HEPATITIS C ANTIBODY Routine 04/05/2023 11:27 AM ENGRAVER LETTERING End stage renal disease (CMS/HCC) (HCC) PSA SCREEN Routine 04/05/2023 11:27 AM ENGRAVER LETTERING End stage renal disease (CMS/HCC) (HCC) from Last 3 Months or Most Recently Relevant to Health Maintenance Results * HLA Antibody Screen by PRA or SAB per Schedule (Class I and Class II) (01/26/2024 10:00 AM ENGRAVER LETTERING) Blood 01/26/2024 10:0 0 AM ENGRAVER LETTERING Narrative HISTOTRAC - ENGRAVER LETTERING Sample received in lab and stored. ??No testing performed at this time. Alejo Florence MD LAB BLOOD ORDERABLES Final Resu lt Performing Organization Address [facility] Co de Phone Number HISTOTRAC * HLA Antibody Screen by PRA or SAB per Schedule (Class I and Class II) (12/31/2023 10:00 AM ENGRAVER LETTERING) Blood 12/31/2023 10:0 0 AM ENGRAVER LETTERING Narrative HISTOTRAC - ENGRAVER LETTERING Sample received in lab. ??PRA Screen ordered. Alejo Florence MD LAB BLOOD ORDERABLES Final Resu Performing Organization Address [facility] de Phone Number HISTOTRAC * HLA Antibody Screen - PRA (Class I and Class II) (12/31/2023 10:00 AM ENGRAVER LETTERING) Class I Treatment Untreated HISTOTRAC Class I Dilution 1:1 HISTOTRAC Class I Tested Date 01/05/2024 HISTOTRAC Class I Result Positive HISTOTRAC Class I Percent Positive 2 HISTOTRAC Class II Treatment Untreated HISTOTRAC Class II Dilution 1:1 HISTOTRAC Class II Tested Date 01/06/2024 HISTOTRAC Class II Result Negative HISTOTRAC Class II Percent Positive 0 HISTOTRAC 12/31/2023 10:0 0 AM ENGRAVER LETTERING 01/06/2024 1:28 PM ENGRAVER LETTERING Narrative HISTOTRAC - 01/06/2024 1:28 PM ENGRAVER LETTERING PRA (panel reactive antibody) HLA antibody screen is performed on serum samples using a method developed and validated by the [facility] HLA laboratory based on an FDA- approved IVD kit (LABScreen PRA, [employer], [place], [place]). Interpretive comments: The percentage of beads with MFI > 750 is reported, which indicates the percentage of donor population estimated to be incompatible with the patient tested. PRA > 0% is consistent with alloimmunization to HLA. Testing performed at the [facility] HLA Laboratory, [address] [place] [address], 5th floor, [place], [address]. [facility] # [id number]. Breanne Nieto, Ph.D., Senior Loan Officer, HLA Laboratory Abdoulaye Kraft M.D., Ph.D., Food Service Steward, HLA Laboratory Denise Abreu, Ph.D., [place] Food Service Steward, [facility] Clinical Laboratories Current methodology and interpretive comments last revised on 06/16/2017. us Alejo Florence MD LAB BLOOD ORDERABLES Final Resu lt HISTOTRAC * HLA Antibody Screen - SAB (Class I and Class II) (12/31/2023 10:00 AM ENGRAVER LETTERING) Class I Treatment EDTA HISTOTRAC Class I [...] CPRA 0 HISTOTRAC 12/31/2023 10:0 0 AM ENGRAVER LETTERING 01/06/2024 1:28 PM ENGRAVER LETTERING Narrative HISTOTRAC - 01/06/2024 1:28 PM ENGRAVER LETTERING Single-antigen HLA antibody screen is performed on serum samples using a method developed and validated by the [facility] HLA laboratory based on an FDA-approved IVD kit (LABScreen Single-Antigen, [employer], [place], [place]). All patient serum samples are pretreated with EDTA before the screen to prevent complement interference. Additional serum treatments, such as adsorption and DTT treatment, may be performed as indicated. ??Interpretive comments: Low risk: MFI [id number]. Moderate risk: MFI [id number]. Increased risk: MFI >/= 5000. The presence [...] antigens to avoid. Testing performed at the [facility] HLA Laboratory, [address] [place] [address], 5th floor, [place], [address]. [place] # [id number]. Breanne Nieto, Ph.D., Senior Loan Officer, HLA Laboratory Abdoulaye Kraft M.D., Ph.D., Food Service Steward, HLA Laboratory Denise Abreu, Ph.D., CLIA Food Service Steward, [facility] Clinical Laboratories Current methodology and interpretive comments last revised on 03/19/2022. us Alejo Florence MD LAB BLOOD ORDERABLES Final Resu lt HISTOTRAC * PSA screen (04/05/2023 11:27 AM ENGRAVER LETTERING) PSA-Total 0.28 <=3.90 ng/mL [facility] Comment: Interpretive Data ?AGE ? SEX ?REFERENCE [...] revised 21. Blood 04/05/2023 11:2 7 AM ENGRAVER LETTERING 04/05/2023 12:10 PM ENGRAVER LETTERING Narrative TRAVIS [facility] - 04/05/2023 12:57 PM ENGRAVER LETTERING This lab is being obtained as part of a Kidney transplant evaluation, is time sensitive, and should only be drawn during the evaluation visit at [facility] 3CAM Lab. us Abena Brown MD LAB BLOOD ORDERABL ES Final Result [facility] One [facility] [place] [address] * Hepatitis C antibody Blood (04/05/2023 11:27 AM ENGRAVER LETTERING) Hep C Ab Nonreactive Nonreactive [facility] Comment:Antibodies to HCV no t detected. Does NOT exclude the possibility of recent exposure to HCV. Current interpretive data was last revised on 21 Blood 04/05/2023 11:2 7 AM ENGRAVER LETTERING 04/05/2023 12:09 PM ENGRAVER LETTERING Hector ROBLES [facility] - 04/05/2023 1:03 PM ENGRAVER LETTERING This lab is being obtained as part of a Kidney transplant evaluation, is time sensitive, and should only be drawn during the evaluation visit at [facility] 3C Lab. Abena Brown MD LAB MICROBIOLOGY - GENERAL ORDERABLES Final Result [facility] One [facility] Department [place] [address] from Last 3 Months or Most Recently Relevant to Health Maintenance Insurance MEDICARE [employer] MEDICARE IDIA MEDICARE [employer] Care Teams Independent Agent Music Education Relationship Specialty Start Date End Date Milo Morrell MD [address] [facility] [place] [address] PCP - General Emergency Medicine 03/26/23 Janet Moss, RN [address] [address] Jewelry Salesperson 10/06/22
--- OUTSIDE RECORDS SUMMARY | 2024-03-28 16:43 | XMS_ITS ---
Author Organization [facility] Address [address] [place] [address] Care Team Providers Care Christian Science Practitioner Name Role Phone Janet Moss RN Unavailable [phone] Milo Morrell MD Primary Care Provide r Transplant Episode Kidney Candidate [facility] ([place], [place]) [facility] Center waitlisted on 08/24/2023 Marked as Inactive on 08/24/2023 Reason: 04 - Insurance Issues Kidney CoordinatorJanet Moss RN Fax: N/A Email: N/A Scores Score Value Updated Exceptions/Reas ons CPRA Not available EPTS (Calc) 29 03/28/2024 [place] Organ 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 Care Team Name Role Phone Fax Email Janet Moss RN Kidney Coordinator [phone] N/A N/A Xavier Marcus MD Referring Physician [phone] N/A Janet Muse Edge Beader [phone] N/A N/A Events Pre-Transplant Referred: 10/05/2022 Evaluation began: 02/04/2023 Committee: 08/23/2023 UNOS qualified: 11/27/2021 Center waitlisted: 08/24/2023 Dialysis History Dialysis History Start End Type Comments Center 11/27/2021 Peritoneal DAVABAD Resendez [facility] D[facility] Information Center Phone Fax Address [facility] [phone] [place], [place] [address] [address]
--- OUTSIDE RECORDS SUMMARY | 2024-03-28 16:43 | XMS_ITS | Clinical Summary ---
Author Organization [facility] Address [address] [place] [address] Care Team Providers Care Stock Preparation Operator Name Role Phone None, Provider MD Primary [...] Active DIALYVITE VITAMIN D3 MAX 1.25 MG (60751 UT) Tab TAKE ONE TABLET BY MOUTH [...] Date Diagnosed Date End stage renal disease ([facility]) 2023 Immunizations Name Administration Dates Next Due Hepatitis [...] on file Legal Sex Male 11:54 AM FORM STRIPPER Gender Identity Not on file Sexual Orientation [...] 03/07/2023 11/04/2022, 09/29/2022, 09/04/2022 COVID-19 Vaccine (1 - 2023-2 5 season) 2023 Influenza Adult (#1) 2023 12/20/2022 PHQ-2 (Physician [place]) 02/23/2024 12/22/2023 PHQ-2 (Physician [place]) 12/21/2024 12/22/2023 DTaP, Tdap and Td Vaccines [...] on patient's age to complete this topic Insurance MEDICARE MEDICAID Care Teams Stock Preparation Operator Relationship Specialty Start Date End Date None, Provider, PCP - General UNKNOWN PHYSICIAN SPECIALTY 12/22/23
--- OUTSIDE RECORDS SUMMARY | 2024-03-28 16:43 | XMS_ITS | Clinical Summary ---
Author Organization [facility] Address [address] [place] [address] Care Team Providers Care Environmental Change Analyst Name Role Phone Janet Moss RN Unavailable [phone] Milo Morrell MD Primary Care Provide [...] Date Diagnosed Date End stage renal disease ([facility]) 04/05/2023 Encounters Date Type Department Care Team Description 03/22/2024 Documentation [facility] Transplant Kidney [address] [facility] 340 Mailstop [phone] [place] [address] Tasha Chapman 03/21/2024 Telephone [facility] Transplant Kidney [address] [facility] 340 Mailstop [phone] [place] [address] Janet Moss RN 03/08/2024 Telephone [facility] [place] [facility] Transplant Kidney [address] [facility] 340 MailNewAerop [phone] [place] [address] Janet Moss RN 01/26/2024 10:00 AM RUBBER GOODS INSPECTOR - 01/26/2024 11:59 PM RUBBER GOODS INSPECTOR Hospital Encounter [address] [address] ESRD (end stage renal disease) ([facility]) ([facility]) Discharge Disposition: Discharge to home or self care 12/31/2023 10:00 AM RUBBER GOODS INSPECTOR - 12/31/2023 11:59 PM [facility] Hospital Encounter [address] [address] ESRD (end stage renal disease) ([facility]) ([facility]) Discharge Disposition: Discharge to home or self care 12/31/2023 Orders Only [facility] Nephrology [address] [facility] 5th [place] [address] [place] [address] Alejo Florence MD from Last 3 Months [...] on file Legal Sex Male 9:46 AM RUBBER GOODS INSPECTOR Gender Identity Not on file Sexual Orientation Not on file Obstetrics History Last Filed Vital Signs Vital Sign Reading Time Taken Comments Blood Pressure 163/115 04/12/2023 8:12 AM RUBBER GOODS INSPECTOR Pulse 77 04/12/2023 8:12 AM RUBBER GOODS INSPECTOR Temperature 36.7 ??C (98.1 ??F) 04/05/2023 1:04 PM CS T Respiratory Rate - - Oxygen Saturation - - Inhaled Oxygen Concentration - - Weight 112.5 kg (248 lb 0.3 oz) 04/12/2023 8:12 AM RUBBER GOODS INSPECTOR Height 175.3 cm (5' 9 ) 04/05/2023 1:04 PM RUBBER GOODS INSPECTOR Body Mass Index 36.63 04/05/2023 1:04 PM RUBBER GOODS INSPECTOR Plan of Treatment Health Maintenance Due Date [...] AND CLASS II) Routine 01/26/2024 10:00 AM RUBBER GOODS INSPECTOR ESRD (end stage renal disease) (CMS/HCC) (HCC) HLA ANTIBODY SCREEN - SAB (CLASS I AND CLASS II) Routine 12/31/2023 10:00 AM RUBBER GOODS INSPECTOR HLA ANTIBODY SCREEN - PRA (CLASS I AND CLASS II) Routine 12/31/2023 10:00 AM RUBBER GOODS INSPECTOR ESRD (end stage renal disease) (CMS/HCC) (HCC) HLA ANTIBODY SCREEN BY PRA OR SAB PER SCHEDULE (CLASS I AND CLASS II) Routine 12/31/2023 10:00 AM RUBBER GOODS INSPECTOR ESRD (end stage renal disease) (CMS/HCC) (HCC) HEPATITIS C ANTIBODY Routine 04/05/2023 11:27 AM RUBBER GOODS INSPECTOR End stage renal disease (CMS/HCC) (HCC) PSA SCREEN Routine 04/05/2023 11:27 AM RUBBER GOODS INSPECTOR End stage renal disease (CMS/HCC) (HCC) from Last 3 Months or Most Recently Relevant to Health Maintenance Results * HLA Antibody Screen by PRA or SAB per Schedule (Class I and Class II) (01/26/2024 10:00 AM RUBBER GOODS INSPECTOR) Blood 01/26/2024 10:0 0 AM RUBBER GOODS INSPECTOR Narrative HISTOTRAC - RUBBER GOODS INSPECTOR Sample received in lab and stored. ??No testing performed at this time. Alejo Florence MD LAB BLOOD ORDERABLES Final Resu Performing Organization Address [facility] Co de Phone Number HISTOTRAC * HLA Antibody Screen by PRA or SAB per Schedule (Class I and Class II) (12/31/2023 10:00 AM RUBBER GOODS INSPECTOR) Blood 12/31/2023 10:0 0 AM RUBBER GOODS INSPECTOR Narrative HISTOTRAC - RUBBER GOODS INSPECTOR Sample received in lab. ??PRA Screen ordered. Alejo Florence MD LAB BLOOD ORDERABLES Final Resu Performing Organization Address [facility]/State/ZIP Co de Phone Number HISTOTRAC * HLA Antibody Screen - PRA (Class I and Class II) (12/31/2023 10:00 AM RUBBER GOODS INSPECTOR) Class I Treatment Untreated HISTOTRAC Class I Dilution 1:1 HISTOTRAC Class I Tested Date 01/05/2024 HISTOTRAC Class I Result Positive HISTOTRAC Class I Percent Positive 2 HISTOTRAC Class II Treatment Untreated HISTOTRAC Class II Dilution 1:1 HISTOTRAC Class II Tested Date 01/06/2024 HISTOTRAC Class II Result Negative HISTOTRAC Class II Percent Positive 0 HISTOTRAC 12/31/2023 10:0 0 AM RUBBER GOODS INSPECTOR 01/06/2024 1:28 PM RUBBER GOODS INSPECTOR Narrative HISTOTRAC - 01/06/2024 1:28 PM RUBBER GOODS INSPECTOR PRA (panel reactive antibody) HLA antibody screen is performed on serum samples using a method developed and validated by the [facility] HLA laboratory based on an FDA- approved IVD kit ([employer]gram[employer] PRA, [place], [place], [place]). Interpretive comments: The percentage of beads with MFI > 750 is reported, which indicates the percentage of donor population estimated to be incompatible with the patient tested. PRA > 0% is consistent with alloimmunization to HLA. Testing performed at the [facility] HLA Laboratory, [address] [place] [address], 5th floor, [place], [address]. [facility] # [id number]. Breanne Nieto, Ph.D., Motorcycle Engine Assembler, HLA Laboratory Abdoulaye Kraft M.D., Ph.D., Maintenance Controller, HLA Laboratory Denise Abreu, Ph.D., CLIA Maintenance Controller, [facility] Clinical Laboratories Current methodology and interpretive comments last revised on 06/16/2017. us Alejo Florence MD LAB BLOOD ORDERABLES Final Resu lt HISTOTRAC * HLA Antibody Screen - SAB (Class I and Class II) (12/31/2023 10:00 AM RUBBER GOODS INSPECTOR) Class I Treatment EDTA HISTOTRAC Class I [...] CPRA 0 HISTOTRAC 12/31/2023 10:0 0 AM RUBBER GOODS INSPECTOR 01/06/2024 1:28 PM RUBBER GOODS INSPECTOR Narrative HISTOTRAC - 01/06/2024 1:28 PM RUBBER GOODS INSPECTOR Single-antigen HLA antibody screen is performed on serum samples using a method developed and validated by the [facility] HLA laboratory based on an FDA-approved IVD kit ([employer] Single-Antigen, [place], [place], [place]). All patient serum samples are pretreated with EDTA before the screen to prevent complement interference. Additional serum treatments, such as adsorption and DTT treatment, may be performed as indicated. ??Interpretive comments: Low risk: MFI [id number]. Moderate risk: MFI [id number]. Increased risk: MFI >/= 5000. The presence [...] antigens to avoid. Testing performed at the [facility] HLA Laboratory, [address], 5th floor, [place], [address]. CLIA # [id number]. Breanne Nieto, Ph.D., Motorcycle Engine Assembler, HLA Laboratory Abdoulaye Kraft M.D., Ph.D., Maintenance Controller, HLA Laboratory Denise Abreu, Ph.D., MAURILIO Maintenance Controller, [facility] Clinical Laboratories Current methodology and interpretive comments last revised on 03/19/2022. us Alejo Florence MD LAB BLOOD ORDERABLES Final Resu lt HISTOTRAC * PSA screen (04/05/2023 11:27 AM RUBBER GOODS INSPECTOR) PSA-Total 0.28 <=3.90 ng/mL [facility] Comment: Interpretive Data ?AGE ? SEX [...] revised 21. Blood 04/05/2023 11:2 7 AM RUBBER GOODS INSPECTOR 04/05/2023 12:10 PM RUBBER GOODS INSPECTOR Narrative [facility] - 04/05/2023 12:57 PM RUBBER GOODS INSPECTOR This lab is being obtained as part of a Kidney transplant evaluation, is time sensitive, and should only be drawn during the evaluation visit at [facility] 3C Lab. us Abena Brown MD LAB BLOOD ORDERABL ES Final Result Performing Organization Address City/[facility]/ZIP Co de Phone Number [facility] Department [place] [address] * Hepatitis C antibody Blood (04/05/2023 11:27 AM RUBBER GOODS INSPECTOR) Hep C Ab Nonreactive Nonreactive [facility] Comment:Antibodies to HCV no t detected. Does NOT exclude the possibility of recent exposure to HCV. Current interpretive data was last revised on 21 Blood 04/05/2023 11:2 7 AM RUBBER GOODS INSPECTOR 04/05/2023 12:09 PM RUBBER GOODS INSPECTOR Narrative [facility] - 04/05/2023 1:03 PM RUBBER GOODS INSPECTOR This lab is being obtained as part of a Kidney transplant evaluation, is time sensitive, and should only be drawn during the evaluation visit at [facility] 3CAM Lab. Abena Brown MD LAB MICROBIOLOGY - GENERAL ORDERABLES Final Result Performing Organization Address [facility] Co de Phone Number TRA[facility] Department [place] [address] from Last 3 Months or Most Recently Relevant to Health Maintenance Insurance MEDICARE [place] MEDICARE [facility] [place] [address] Care Teams Environmental Change Analyst Relationship Specialty Start Date End Date Milo Morrell MD [address] [place] [address] PCP - General Emergency Medicine 03/26/23 Janet Moss, RN [address] [address] Tune Up Mechanic 10/06/22
[2024-03-28 16:47] VITALS: BP 91/44; PULSE 113; RESP 20; TEMP 36.6; O2SAT 99
--- NOTE | 2024-03-28 16:54 | ECG_ITS ---
Test Date: 2024-03-28 20:10:50 Measurements Intervals [place] Rate: 119 P: -22 CT: 155 QRS: 8 QRSD: 113 T: 78 QT: 329 QTc: 463 Interpretive Statements SINUS TACHYCARDIA WITH OCCASIONAL SUPRAVENTRICULAR PREMATURE COMPLEXES INCOMPLETE LEFT BUNDLE BRANCH BLOCK BORDERLINE ST-T WAVE ABNORMALITY- LAT/HIGH LAT LEADS BASELINE ARTIFACT- I, II, III, AVR, AVL, AVF ABNORMAL ECG Compared to ECG 03/11/2024 06:36:38 INCOMPLETE LEFT BUNDLE BRANCH BLOCK NOW PRESENT Electronically Signed On 03-29-2024 06:59:02 PHARMACY TECHNICIAN by Quang Johnson D.O.
--- NOTE | 2024-03-28 17:07 | ED.WEAKNESS ---
HPI - Weakness General Chief complaint: Weakness Stated complaint: Weakness-falling, N/V-PD patient released 03/21/24 Time Seen by Provider: 03/28/24 16:55 Focused HPI: Patient is a 54-year-old male who presents to the ER with his decreased p.o. intake, recent falls, and weakness. He reports he has a history of chronic kidney disease and congestive heart failure. Patient reports he gets peritoneal dialysis every night but was too weak to do it last evening. He reports he was here approximately 2 weeks ago and was discharged last week. Patient denies any shortness of breath, chest pain, recent fevers, abdominal pain. GENERAL: Ill-appearing, well-nourished, and in no acute distress. HEAD: Normocephalic, atraumatic. CHEST: Clear to auscultation. ?No respiratory distress. HEART: Tachycardia? NEURO: ?Alert and oriented x3. Patient screened in triage and initial orders placed.? ?Additional care and disposition to be based upon?diagnostic testing and treatment. Related Data Home Medications ?Medication ?Instructions ?Recorded ?Confirmed ?Last Taken ?Type calcium acetate 667 mg tablet 2,668 mg PO TIDWMEAL 08/31/22 03/09/24 09/27/23 History gentamicin 0.1 % topical cream 1 applic topical TID PRN DIALYSIS 08/31/22 03/09/24 09/27/23 History CATH. calcium carbonate (Tums) 200 mg PO HS PRN Indigestion 07/20/23 03/09/24 09/27/23 History cinacalcet 30 mg tablet 90 mg PO DAILY 07/20/23 03/09/24 09/27/23 History multivitamin 1 tablet PO DAILY 07/29/23 03/09/24 10/05/23 History ferric citrate 210 mg iron tablet 210 mg PO TIDWM 09/28/23 03/09/24 Unknown History (Auryxia) labetalol 200 mg tablet 100 mg PO BID 02/03/24 03/09/24 Unknown History escitalopram oxalate 10 mg tablet 10 mg PO DAILY 03/09/24 03/09/24 Unknown History Allergies Allergy/AdvReac Type Severity Reaction Status Date / Time No Known Allergies Allergy Verified 03/28/24 16:42 [facility] Past Medical History Medical History Peritoneal dialysis catheter in place Polyneuropathy HTN (hypertension) Vitamin D3 deficiency Family History Family History Father Hypertension Social History Social History Smoking packs per day: 1.5 Smoking cigarettes per day: 30.0 Years smoked: 20 Smoking pack-years: 30.00 Smoking status: Former smoker Tobacco type: cigarettes Alcohol intake: current Alcohol use details: rarely Substance use: current Substance use type: marijuana Other substance usage details: OCCASIONAL Do You Feel Safe in your Home?: Yes Lack of Transportation: YES Lack of Food: Sometimes True Current Housing: I Have Housing Concerned About Future Housing: No Difficulty Paying Gas/Electric Bills: YES Difficulty Paying for Meds: No Currently Unemployed: No Education: Bachelor's Degree Difficulty w/ Childcare or Family Care: No Living arrangements: with family Occupation/Education: unemployed Gender identity (if verbalized by the patient): Male Sexual Orientation (if Verbalized by the Patient): Straight or Heterosexual Spiritual care concerns: No Agree to blood products: Yes Course Vital Signs Vital signs: Vital Signs Temperature 97.9 F 03/28/24 16:47 Pulse Rate 113 H 03/28/24 16:47 Respiratory Rate 20 03/28/24 16:47 Blood Pressure 91/44 L 03/28/24 16:47 Pulse Oximetry 99 03/28/24 16:47 Oxygen Delivery Room Air 03/28/24 16:47 Temperature 98.4 F 03/28/24 20:08 Pulse Rate 107 H 03/28/24 22:27 Respiratory Rate 18 03/28/24 22:27 Blood Pressure 109/81 03/28/24 22:27 Pulse Oximetry 97 03/28/24 22:27 Oxygen Delivery Room Air 03/28/24 20:42 MDM - Weakness Lab Data 03/28/24 20:07 03/28/24 20:08 Labs: Lab Results 03/28/24 03/28/24 03/28/24 Range/Units 20:07 20:08 22:59 WBC 15.2 H (4.5-10.0) K/mm3 RBC 4.22 L (4.6-6.20) M/mm3 Hgb 13.6 L (14.0-18.0) g/dL Hct 41.2 L (42.0-52.0) % MCV 97.6 (80-100) fl MCH 32.2 (26-34) pg MCHC 33.0 (32-36) g/dl RDW 13.9 (11.5-14.5) % Plt Count 423 H (150-375) k/mm3 MPV 9.2 (7.4-10.4) fl Immature Gran % (Auto) 0.5 (0-0.5) % Neut % (Auto) 70.7 (45.5-73.1) % Lymph % (Auto) 16.3 L (18.3-44.2) % [place] % (Auto) 9.4 H (2.6-8.5) % Eos % (Auto) 2.4 (0-4.4) % Baso % (Auto) 0.7 (0.2-1.2) % Lymph # (Auto) 2.47 (0.9-3.2) K/mm3 [place] # (Auto) 1.4 H (0.1-0.6) K/mm3 Eos # (Auto) 0.4 H (0-0.3) K/mm3 Baso # (Auto) 0.1 (0.0-0.1) K/mm3 Abs Immat Gran (auto) 0.08 H (0.00-0.031) K/mm3 Absolute Neuts (auto) 10.8 H (1.3-6.7) K/mm3 Absolute Nucleated RBC 0.000 (0.0-0.012) K/mm3 Nucleated RBC % 0.0 (0.0-0.2) % PT 14.6 (11.1-14.7) Seconds INR 1.1 APTT 32.5 (22.3-36.8) Seconds Sodium 131 L (137-145) mmol/L Potassium 3.4 (3.4-5.0) mmol/L Chloride 90 L (98-107) mmol/L Carbon Dioxide 23 (22-30) mmol/L Anion Gap 18 H (4-12) mmol/L BUN 56 H D (9-20) mg/dL Creatinine 15.49 H (0.7-1.3) mg/dL Estim Creat Clear Calc 6 ml/min Estimated GFR 3 L (59 - ) Glucose 106 (65-110) mg/dL Calcium 8.9 (8.4-10.2) mg/dL Magnesium 1.6 (1.6-2.3) mg/dL Total Bilirubin 0.7 (0.2-1.3) mg/dL AST 18 (17-59) U/L ALT 31 (6-50) U/L Alkaline Phosphatase 142 H (38-126) U/L Troponin I 0.050 H* 0.048 H* (0.000-0.034) ng/mL NT-Pro-B Natriuret Pep 5670 H (19.9-100) pg/mL Total Protein 7.0 (6.3-8.2) g/dL Albumin 3.7 (3.5-5.1) g/dL Influenza A (RT-PCR) Negative (Negative) Influenza B (RT-PCR) Negative (Negative) RSV (RT-PCR) Negative (Negative) SARS-CoV-2 RNA (RT-PCR) Negative (Negative) Discharge Plan Discharge Clinical Impression: End-stage renal disease on peritoneal dialysis, Generalized weakness, Elevated troponin Nausea and vomiting Qualifiers: Vomiting type: unspecified Qualified Code(s): R11.2 - Nausea with vomiting, unspecified Patient Disposition: Still a Patient Condition: Stable
[2024-03-28 20:08] VITALS: BP 86/62; PULSE 80; RESP 16; TEMP 36.9; O2SAT 100
[2024-03-28 20:17] LABS: Basophils Absolute Auto 0.1 K/mm3 (0.0-0.1); Basophils Percent Auto 0.7 % (0.2-1.2); Eosinophils Absolute Auto 0.4 K/mm3 (0-0.3); Eosinophils Percent Auto 2.4 % (0-4.4); Hematocrit 41.2 % (42.0-52.0); Hemoglobin 13.6 g/dL (14.0-18.0); Immature Granulocyte Absolute 0.08 K/mm3 (0.00-0.031); Immature Granulocyte Percent A 0.5 % (0-0.5); Lymphocytes Absolute Auto 2.47 K/mm3 (0.9-3.2); Lymphocytes Percent Auto 16.3 % (18.3-44.2); Mean Corpuscular Hemoglobin 32.2 pg (26-34); Mean Corpuscular Volume 97.6 fl (80-100); Mean Platelet Volume 9.2 fl (7.4-10.4); Monocytes Absolute Auto 1.4 K/mm3 (0.1-0.6); Monocytes Percent Auto 9.4 % (2.6-8.5); Neutrophils Absolute Auto 10.8 K/mm3 (1.3-6.7); Neutrophils Percent Auto 70.7 % (45.5-73.1); Platelet Count Result 423 k/mm3 (150-375); Red Blood Count 4.22 M/mm3 (4.6-6.20); Red Cell Distribution Width 13.9 % (11.5-14.5); White Blood Count 15.2 K/mm3 (4.5-10.0)
[2024-03-28 20:28] VITALS: BP 107/78; PULSE 112; PULSE 114; RESP 20; O2SAT 100
[2024-03-28 20:30] LABS: INR 1.1; Prothrombin Time 14.6 Seconds (11.1-14.7)
[2024-03-28 20:31] LABS: Partial Thromboplastin Time 32.5 Seconds (22.3-36.8)
[2024-03-28 20:37] LABS: Alanine Aminotransferase 31 U/L (6-50); Albumin Level 3.7 g/dL (3.5-5.1); Alkaline Phosphatase 142 U/L (38-126); Anion Gap 18 mmol/L (4-12); Aspartate Amino Transferase 18 U/L (17-59); Bilirubin,Total 0.7 mg/dL (0.2-1.3); Blood Urea Nitrogen 56 mg/dL (9-20); Calcium 8.9 mg/dL (8.4-10.2); Carbon Dioxide 23 mmol/L (22-30); Chloride 90 mmol/L (98-107); Glucose 106 mg/dL (65-110); Potassium 3.4 mmol/L (3.4-5.0); Sodium 131 mmol/L (137-145)
[2024-03-28 20:42] VITALS: BP 107/78; PULSE 104; RESP 17; O2SAT 100
[2024-03-28 20:52] LABS: Estimated CRCL calculation 6 ml/min; Estimated Glomerular Filt Rate 3
[2024-03-28 20:53] LABS: Influenza A QL RT-PCR Negative (Negative); Influenza B QL RT-PCR Negative (Negative); RSV RNA, RT-PCR Negative (Negative); SARS-CoV-2 RNA PCR Negative (Negative)
[2024-03-28 21:02] LABS: Magnesium 1.6 mg/dL (1.6-2.3)
--- OUTSIDE RECORDS SUMMARY | 2024-03-28 21:11 | XMS_ITS | Clinical Summary ---
Author Organization [facility] Address [address] [place] [address] Care Team Providers Care Draw Bench Operator Name Role Phone None, Provider MD [...] Active DIALYVITE VITAMIN D3 MAX 1.25 MG (95265 UT) Tab TAKE ONE TABLET BY MOUTH [...] Date Diagnosed Date End stage renal disease ([facility]) 2023 Immunizations Name Administration Dates Next Due [...] on file Legal Sex Male 11:54 AM NEON MOLDER Gender Identity Not on file Sexual Orientation [...] Influenza Adult (#1) 2023 12/20/2022 PHQ-2 (Physician [place]) 02/23/2024 12/22/2023 PHQ-2 (Physician [place]) 12/21/2024 12/22/2023 DTaP, Tdap and Td Vaccines [...] this topic Insurance MEDICARE MEDICAID Care Teams Draw Bench Operator Relationship Specialty Start Date End Date None, Provider, PCP - General UNKNOWN PHYSICIAN SPECIALTY 12/22/23
--- OUTSIDE RECORDS SUMMARY | 2024-03-28 21:11 | XMS_ITS | Referral Summary ---
Author Organization [facility] Address [address] [place] [address] Care Team Providers Care Shipping/Receiving Manager Name Role Phone Janet Moss RN Unavailable [phone] Milo Morrell MD Primary Care Provide r Encounters Date Type Department Care Team Description 03/22/2024 Documentation [facility] Transplant Kidney [address] [facility] [phone] [place] [address] Tasha Chapman 03/21/2024 Telephone [facility] Transplant Kidney [address] [facility] [phone] [place] [address] Janet Moss, CHIKA 03/08/2024 Telephone [facility] Transplant Kidney [address] [facility] [address] Mailop [phone] [place] [address] Janet Moss, RN 01/26/2024 10:00 AM AVIATION PROJECT MANAGER - 01/26/2024 11:59 PM AVIATION PROJECT MANAGER Hospital Encounter [address] [address] ESRD (end stage renal disease) (CMS/HCC) (HCC) Discharge Disposition: Discharge to home or self care 12/31/2023 10:00 AM AVIATION PROJECT MANAGER - 12/31/2023 11:59 PM AVIATION PROJECT MANAGER Hospital Encounter [address] [address] ESRD (end stage renal disease) ([facility]) ([facility]) Discharge Disposition: Discharge to home or self care 12/31/2023 Orders Only [facility] Nephrology [address] [facility] 5th [place] [address] [place] [phone] Alejo Florence MD from Last 3 Months [...] Date Diagnosed Date End stage renal disease ([facility]) 04/05/2023 Immunizations Name Administration Dates Next [...] on file Legal Sex Male 9:46 AM AVIATION PROJECT MANAGER Gender Identity Not on file Sexual Orientation Not on file Last Filed Vital Signs Vital Sign Reading Time Taken Comments Blood Pressure 163/115 04/12/2023 8:12 AM AVIATION PROJECT MANAGER Pulse 77 04/12/2023 8:12 AM AVIATION PROJECT MANAGER Temperature 36.7 ??C (98.1 ??F) 04/05/2023 1:04 PM CS T Respiratory Rate - - Oxygen Saturation - - Inhaled Oxygen Concentration - - Weight 112.5 kg (248 lb 0.3 oz) 04/12/2023 8:12 AM AVIATION PROJECT MANAGER Height 175.3 cm (5' 9 ) 04/05/2023 1:04 PM AVIATION PROJECT MANAGER Body Mass Index 36.63 04/05/2023 1:04 PM AVIATION PROJECT MANAGER Plan of Treatment Not on file Procedures Procedure Name Priority Date/Time Associated Diagnosis Comments HLA ANTIBODY SCREEN BY PRA OR SAB PER SCHEDULE (CLASS I AND CLASS II) Routine 01/26/2024 10:00 AM AVIATION PROJECT MANAGER ESRD (end stage renal disease) (CMS/HCC) (HCC) HLA ANTIBODY SCREEN - SAB (CLASS I AND CLASS II) Routine 12/31/2023 10:00 AM AVIATION PROJECT MANAGER HLA ANTIBODY SCREEN - PRA (CLASS I AND CLASS II) Routine 12/31/2023 10:00 AM AVIATION PROJECT MANAGER ESRD (end stage renal disease) (CMS/HCC) (HCC) HLA ANTIBODY SCREEN BY PRA OR SAB PER SCHEDULE (CLASS I AND CLASS II) Routine 12/31/2023 10:00 AM AVIATION PROJECT MANAGER ESRD (end stage renal disease) (CMS/HCC) (HCC) HEPATITIS C ANTIBODY Routine 04/05/2023 11:27 AM AVIATION PROJECT MANAGER End stage renal disease (CMS/HCC) (HCC) PSA SCREEN Routine 04/05/2023 11:27 AM AVIATION PROJECT MANAGER End stage renal disease (CMS/HCC) (HCC) from Last 3 Months or Most Recently Relevant to Health Maintenance Results * HLA Antibody Screen by PRA or SAB per Schedule (Class I and Class II) (01/26/2024 10:00 AM AVIATION PROJECT MANAGER) Blood 01/26/2024 10:0 0 AM AVIATION PROJECT MANAGER Narrative HISTOTRAC - AVIATION PROJECT MANAGER Sample received in lab and stored. ??No testing performed at this time. Alejo Florence MD LAB BLOOD ORDERABLES Final Resu lt Performing Organization Address [facility] Co de Phone Number HISTOTRAC * HLA Antibody Screen by PRA or SAB per Schedule (Class I and Class II) (12/31/2023 10:00 AM AVIATION PROJECT MANAGER) Blood 12/31/2023 10:0 0 AM AVIATION PROJECT MANAGER Narrative HISTOTRAC - AVIATION PROJECT MANAGER Sample received in lab. ??PRA Screen ordered. Alejo Florence MD LAB BLOOD ORDERABLES Final Resu Performing Organization Address [facility] de Phone Number HISTOTRAC * HLA Antibody Screen - PRA (Class I and Class II) (12/31/2023 10:00 AM AVIATION PROJECT MANAGER) Class I Treatment Untreated HISTOTRAC Class I Dilution 1:1 HISTOTRAC Class I Tested Date 01/05/2024 HISTOTRAC Class I Result Positive HISTOTRAC Class I Percent Positive 2 HISTOTRAC Class II Treatment Untreated HISTOTRAC Class II Dilution 1:1 HISTOTRAC Class II Tested Date 01/06/2024 HISTOTRAC Class II Result Negative HISTOTRAC Class II Percent Positive 0 HISTOTRAC 12/31/2023 10:0 0 AM AVIATION PROJECT MANAGER 01/06/2024 1:28 PM AVIATION PROJECT MANAGER Narrative HISTOTRAC - 01/06/2024 1:28 PM AVIATION PROJECT MANAGER PRA (panel reactive antibody) HLA antibody screen is performed on serum samples using a method developed and validated by the [facility] HLA laboratory based on an FDA- approved IVD kit (LABScreen PRA, [employer], [place], [place]). Interpretive comments: The percentage of beads with MFI > 750 is reported, which indicates the percentage of donor population estimated to be incompatible with the patient tested. PRA > 0% is consistent with alloimmunization to HLA. Testing performed at the [facility], [address] [place] [address], 5th floor, [place], [address]. [facility] # [id number]. Breanne Nieto, Ph.D., Case Work Aide, HLA Laboratory Abdoulaye Kraft M.D., Ph.D., Care Services Manager, HLA Laboratory Denise Abreu, Ph.D., [place] Care Services Manager, [facility] Current methodology and interpretive comments last revised on 06/16/2017. us Alejo Florence MD LAB BLOOD ORDERABLES Final Resu lt HISTOTRAC * HLA Antibody Screen - SAB (Class I and Class II) (12/31/2023 10:00 AM AVIATION PROJECT MANAGER) Class I Treatment EDTA HISTOTRAC Class I [...] CPRA 0 HISTOTRAC 12/31/2023 10:0 0 AM AVIATION PROJECT MANAGER 01/06/2024 1:28 PM AVIATION PROJECT MANAGER Narrative HISTOTRAC - 01/06/2024 1:28 PM AVIATION PROJECT MANAGER Single-antigen HLA antibody screen is performed on serum samples using a method developed and validated by the [facility] HLA laboratory based on an FDA-approved IVD kit (LABScreen Single-Antigen, [employer], [place], [place]). All patient serum samples are pretreated with EDTA before the screen to prevent complement interference. Additional serum treatments, such as adsorption and DTT treatment, may be performed as indicated. ??Interpretive comments: Low risk: MFI [id number]. Moderate risk: MFI [id number]. Increased risk: MFI >/= 5000. The presence [...] antigens to avoid. Testing performed at the [facility], [address] [place] [address], 5th floor, [place], [address]. [place] # [id number]. Breanne Nieto, Ph.D., Case Work Aide, HLA Laboratory Abdoulaye Kraft M.D., Ph.D., Care Services Manager, HLA Laboratory Denise Abreu, Ph.D., CLIA Care Services Manager, [facility] Current methodology and interpretive comments last revised on 03/19/2022. us Alejo Florence MD LAB BLOOD ORDERABLES Final Resu lt HISTOTRAC * PSA screen (04/05/2023 11:27 AM AVIATION PROJECT MANAGER) PSA-Total 0.28 <=3.90 ng/mL [facility] Comment: [...] revised 21. Blood 04/05/2023 11:2 7 AM AVIATION PROJECT MANAGER 04/05/2023 12:10 PM AVIATION PROJECT MANAGER Narrative TRAVIS [facility] - 04/05/2023 12:57 PM AVIATION PROJECT MANAGER This lab is being obtained as part of a Kidney transplant evaluation, is time sensitive, and should only be drawn during the evaluation visit at [facility] Lab. us Abena Brown MD LAB BLOOD ORDERABL ES Final Result [facility] One [facility] Department [place] [address] * Hepatitis C antibody Blood (04/05/2023 11:27 AM AVIATION PROJECT MANAGER) Hep C Ab Nonreactive Nonreactive [facility] Comment:Antibodies to HCV no t detected. Does NOT exclude the possibility of recent exposure to HCV. Current interpretive data was last revised on 21 Blood 04/05/2023 11:2 7 AM AVIATION PROJECT MANAGER 04/05/2023 12:09 PM AVIATION PROJECT MANAGER Hector ROBLES [facility] - 04/05/2023 1:03 PM AVIATION PROJECT MANAGER This lab is being obtained as part of a Kidney transplant evaluation, is time sensitive, and should only be drawn during the evaluation visit at [facility] Lab. Abena Brown MD LAB MICROBIOLOGY - GENERAL ORDERABLES Final Result [facility]VIS [facility] One [facility] Department [place] [address] from Last 3 Months or Most Recently Relevant to Health Maintenance Insurance MEDICARE [facility] MEDICARE [place] MEDICARE [facility] Care Teams Shipping/Receiving Manager Relationship Specialty Start Date End Date Milo Morrell MD [address] [facility] [place] [address] PCP - General Emergency Medicine 03/26/23 Janet Moss, RN [address] [address] Roller Setter 10/06/22
--- OUTSIDE RECORDS SUMMARY | 2024-03-28 21:11 | XMS_ITS ---
Author Organization [facility] Address [address] [place] [address] Care Team Providers Care Food Production Supervisor Name Role Phone Janet Moss RN Unavailable [phone] Milo Morrell MD Primary Care Provide r Transplant Episode Kidney Candidate [facility] ([place], [place]) [facility] Center waitlisted on 08/24/2023 Marked as Inactive on 08/24/2023 Reason: 04 - Insurance Issues Kidney CoordinatorJanet Moss RN Fax: N/A Email: N/A Scores Score Value Updated Exceptions/Reas ons CPRA Not available EPTS (Calc) 29 03/28/2024 [place] Organ 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 Care Team Name Role Phone Fax Email Janet Moss RN Kidney Coordinator [phone] N/A N/A Xavier Marcus MD Referring Physician [phone] N/A Janet Muse Special Technical Operations Officer [phone] N/A N/A Events Pre-Transplant Referred: 10/05/2022 Evaluation began: 02/04/2023 Committee: 08/23/2023 UNOS qualified: 11/27/2021 Center waitlisted: 08/24/2023 Dialysis History Dialysis History Start End Type Comments Center 11/27/2021 Peritoneal [facility] Res[facility] D[facility] Information Center Phone Fax Address [facility] [phone] [place] [address] [address]
--- OUTSIDE RECORDS SUMMARY | 2024-03-28 21:11 | XMS_ITS | Clinical Summary ---
Author Organization [facility] Address [address] [place] [address] Care Team Providers Care Vehicle Glass Technician Name Role Phone Janet Moss RN Unavailable [phone] Milo Morrell MD Primary Care Provide [...] Date Diagnosed Date End stage renal disease ([facility]) 04/05/2023 Encounters Date Type Department Care Team Description 03/22/2024 Documentation [facility] Transplant Kidney [address] [facility] [address] Mailstop [phone] [place] [address] Tasha Chapman 03/21/2024 Telephone [facility] Transplant Kidney [address] [facility] [address] Mailstop [phone] [place] [address] Janet Moss RN 03/08/2024 Telephone [facility] Transplant Kidney [address] [facility] [address] MailDaticalop [phone] [place] [address] Janet Moss RN 01/26/2024 10:00 AM APPLICATIONS ARCHITECT - 01/26/2024 11:59 PM APPLICATIONS ARCHITECT Hospital Encounter [address] [address] ESRD (end stage renal disease) ([facility]) ([facility]) Discharge Disposition: Discharge to home or self care 12/31/2023 10:00 AM APPLICATIONS ARCHITECT - 12/31/2023 11:59 PM [facility] Hospital Encounter [address] [address] ESRD (end stage renal disease) ([facility]) ([facility]) Discharge Disposition: Discharge to home or self care 12/31/2023 Orders Only [facility] Nephrology [address] [facility] [address] [place] [address] [place] [address] Alejo Florence MD from Last 3 Months [...] on file Legal Sex Male 9:46 AM APPLICATIONS ARCHITECT Gender Identity Not on file Sexual Orientation Not on file Obstetrics History Last Filed Vital Signs Vital Sign Reading Time Taken Comments Blood Pressure 163/115 04/12/2023 8:12 AM APPLICATIONS ARCHITECT Pulse 77 04/12/2023 8:12 AM APPLICATIONS ARCHITECT Temperature 36.7 ??C (98.1 ??F) 04/05/2023 1:04 PM CS T Respiratory Rate - - Oxygen Saturation - - Inhaled Oxygen Concentration - - Weight 112.5 kg (248 lb 0.3 oz) 04/12/2023 8:12 AM APPLICATIONS ARCHITECT Height 175.3 cm (5' 9 ) 04/05/2023 1:04 PM APPLICATIONS ARCHITECT Body Mass Index 36.63 04/05/2023 1:04 PM APPLICATIONS ARCHITECT Plan of Treatment Health Maintenance Due Date [...] AND CLASS II) Routine 01/26/2024 10:00 AM APPLICATIONS ARCHITECT ESRD (end stage renal disease) (CMS/HCC) (HCC) HLA ANTIBODY SCREEN - SAB (CLASS I AND CLASS II) Routine 12/31/2023 10:00 AM APPLICATIONS ARCHITECT HLA ANTIBODY SCREEN - PRA (CLASS I AND CLASS II) Routine 12/31/2023 10:00 AM APPLICATIONS ARCHITECT ESRD (end stage renal disease) (CMS/HCC) (HCC) HLA ANTIBODY SCREEN BY PRA OR SAB PER SCHEDULE (CLASS I AND CLASS II) Routine 12/31/2023 10:00 AM APPLICATIONS ARCHITECT ESRD (end stage renal disease) (CMS/HCC) (HCC) HEPATITIS C ANTIBODY Routine 04/05/2023 11:27 AM APPLICATIONS ARCHITECT End stage renal disease (CMS/HCC) (HCC) PSA SCREEN Routine 04/05/2023 11:27 AM APPLICATIONS ARCHITECT End stage renal disease (CMS/HCC) (HCC) from Last 3 Months or Most Recently Relevant to Health Maintenance Results * HLA Antibody Screen by PRA or SAB per Schedule (Class I and Class II) (01/26/2024 10:00 AM APPLICATIONS ARCHITECT) Blood 01/26/2024 10:0 0 AM APPLICATIONS ARCHITECT Narrative [facility] - APPLICATIONS ARCHITECT Sample received in lab and stored. ??No testing performed at this time. Alejo Florence MD LAB BLOOD ORDERABLES Final Resu Performing Organization Address [facility] [[email or web address]] Co de Phone Number [facility] * HLA Antibody Screen by PRA or SAB per Schedule (Class I and Class II) (12/31/2023 10:00 AM APPLICATIONS ARCHITECT) Blood 12/31/2023 10:0 0 AM APPLICATIONS ARCHITECT Narrative [facility] - APPLICATIONS ARCHITECT Sample received in lab. ??PRA Screen ordered. Alejo Florence MD LAB BLOOD ORDERABLES Final Resu Performing Organization Address [facility]/State/ZIP Co de Phone Number [facility] * HLA Antibody Screen - PRA (Class I and Class II) (12/31/2023 10:00 AM APPLICATIONS ARCHITECT) Class I Treatment Untreated [facility] Class I Dilution 1:1 [facility] Class I Tested Date 01/05/2024 [facility] Class I Result Positive [facility] Class I Percent Positive 2 [facility] Class II Treatment Untreated [facility] Class II Dilution 1:1 [facility] Class II Tested Date 01/06/2024 [facility] Class II Result Negative [facility] Class II Percent Positive 0 [facility] 12/31/2023 10:0 0 AM APPLICATIONS ARCHITECT 01/06/2024 1:28 PM APPLICATIONS ARCHITECT Narrative [facility] - 01/06/2024 1:28 PM APPLICATIONS ARCHITECT PRA (panel reactive antibody) HLA antibody screen is performed on serum samples using a method developed and validated by the [facility] HLA laboratory based on an FDA- approved IVD kit ([employer] PRA, [employer], [place], [place]). Interpretive comments: The percentage of beads with MFI > 750 is reported, which indicates the percentage of donor population estimated to be incompatible with the patient tested. PRA > 0% is consistent with alloimmunization to HLA. Testing performed at the [facility] Laboratory, [address] [place] [address], 5th floor, [place], [address]. [facility] # [id number]. Breanne Nieto, Ph.D., [employer] In[employer] Machine, HLA Laboratory Abdoulaye Kraft M.D., Ph.D., Radiological Health Specialist, HLA Laboratory Denise Abreu, Ph.D., CLIA Radiological Health Specialist, [facility] Clinical Laboratories Current methodology and interpretive comments last revised on 06/16/2017. us Alejo Florence MD LAB BLOOD ORDERABLES Final Resu lt [facility] * HLA Antibody Screen - SAB (Class I and Class II) (12/31/2023 10:00 AM APPLICATIONS ARCHITECT) Class I Treatment EDTA [facility] Class I [...] CPRA 0 [facility] 12/31/2023 10:0 0 AM APPLICATIONS ARCHITECT 01/06/2024 1:28 PM APPLICATIONS ARCHITECT Narrative [facility] - 01/06/2024 1:28 PM APPLICATIONS ARCHITECT Single-antigen HLA antibody screen is performed on serum samples using a method developed and validated by the [facility] HLA laboratory based on an FDA-approved IVD kit ([employer] Single-Antigen, [employer], [place], [place]). All patient serum samples are pretreated with EDTA before the screen to prevent complement interference. Additional serum treatments, such as adsorption and DTT treatment, may be performed as indicated. ??Interpretive comments: Low risk: MFI [id number]. Moderate risk: MFI [id number]. Increased risk: MFI >/= 5000. The presence [...] antigens to avoid. Testing performed at the [facility], [address], 5th floor, [place], [address]. CLIA # [id number]. Breanne Nieto, Ph.D., [employer] In[employer] Machine, HLA Laboratory Abdoulaye Kraft M.D., Ph.D., Radiological Health Specialist, HLA Laboratory Denise Abreu, Ph.D., MAURILIO Radiological Health Specialist, [facility] Laboratories Current methodology and interpretive comments last revised on 03/19/2022. us Alejo Florence MD LAB BLOOD ORDERABLES Final Resu lt [facility] * PSA screen (04/05/2023 11:27 AM APPLICATIONS ARCHITECT) PSA-Total 0.28 <=3.90 ng/mL [facility] Comment: Interpretive Data ?AGE ? SEX [...] revised 21. Blood 04/05/2023 11:2 7 AM APPLICATIONS ARCHITECT 04/05/2023 12:10 PM APPLICATIONS ARCHITECT Narrative [facility] - 04/05/2023 12:57 PM APPLICATIONS ARCHITECT This lab is being obtained as part of a Kidney transplant evaluation, is time sensitive, and should only be drawn during the evaluation visit at [facility] 3C Lab. us Abena Brown MD LAB BLOOD ORDERABL ES Final Result Performing Organization Address City/[facility]/ZIP Co de Phone Number [facility] [place] [address] * Hepatitis C antibody Blood (04/05/2023 11:27 AM APPLICATIONS ARCHITECT) Hep C Ab Nonreactive Nonreactive [facility] Comment:Antibodies to HCV no t detected. Does NOT exclude the possibility of recent exposure to HCV. Current interpretive data was last revised on 21 Blood 04/05/2023 11:2 7 AM APPLICATIONS ARCHITECT 04/05/2023 12:09 PM APPLICATIONS ARCHITECT Narrative [facility] - 04/05/2023 1:03 PM APPLICATIONS ARCHITECT This lab is being obtained as part of a Kidney transplant evaluation, is time sensitive, and should only be drawn during the evaluation visit at [facility] 3CAM Lab. Abena Brown MD LAB MICROBIOLOGY - GENERAL ORDERABLES Final Result Performing Organization Address [facility] [[email or web address]] Co de Phone Number [facility] [place] [address] from Last 3 Months or Most Recently Relevant to Health Maintenance Insurance MEDICARE [place] MEDICARE [facility] [place] [address] Care Teams Vehicle Glass Technician Relationship Specialty Start Date End Date Milo Morrell MD [address] [place] [address] PCP - General Emergency Medicine 03/26/23 Janet Moss, RN [address] [address] [employer] 10/06/22
[2024-03-28 21:12] LABS: NT Pro B Type Natriuretic Pept 5670 pg/mL (19.9-100)
[2024-03-28] MEDS: MAGNESIUM SULF 2 GM/WATER 50ML 2 GM/50 ML BAG IVPB (21:54)
[2024-03-28] MEDS: ONDANSETRON INJ 4 MG/2 ML VIAL IV PUSH (21:54)
--- NOTE | 2024-03-28 22:23 | ED.WEAKNESS ---
HPI - Weakness General Chief complaint: Weakness <FRANK Butler Last Filed: 03/29/24 01:36> Stated complaint: Weakness-falling, N/V-PD patient released 03/21/24 <FRANK Butler Last Filed: 03/29/24 01:36> Time Seen by Provider: 03/28/24 16:55 <FRANK Butler Last Filed: 03/29/24 01:36> Source: patient and old records reviewed <FRANK Butler Last Filed: 03/29/24 01:36> Mode of arrival: ambulatory <FRANK Butler Filed: 03/29/24 01:36> Limitations: no limitations <FRANK Butler Filed: 03/29/24 01:36> History of Present Illness HPI Narrative: Patient is a 54-year-old male, with PMH of ESRD on peritoneal dialysis, who presents the ED with report of weakness. Patient reports he was recently admitted to the hospital here from 03/09-03/21 for influenza, respiratory failure, fluid overload. States he had approximately 30 lb of fluid taken off of him. Required continuous peritoneal dialysis at that time. States since being discharged, he had been doing okay, but has been increasingly weak over the last few days. States he missed his peritoneal dialysis last night due to feeling so weak and fatigued. States he has had nausea, vomiting, decreased p.o. intake. Complains of diffuse abdominal discomfort. Family member at bedside also reports that patient has fallen several times recently due to his weakness. Weakness is generalized. Patient denies any focal weakness or numbness. Denies chest pain, shortness breath, fevers, diarrhea, constipation. Otr Driver is Dr. Marcus <FRANK Butler Last Filed: 03/29/24 01:36> Related Data Home medications: Home Medications ?Medication ?Instructions ?Recorded ?Confirmed ?Last Taken ?Type gentamicin 0.1 % topical cream 1 applic topical TID PRN DIALYSIS 08/31/22 03/29/24 09/27/23 History CATH. calcium carbonate (Tums) 200 mg PO HS PRN Indigestion 07/20/23 03/29/24 09/27/23 History cinacalcet 30 mg tablet 90 mg PO DAILY 07/20/23 03/29/24 09/27/23 History multivitamin 1 tablet PO DAILY 07/29/23 03/29/24 10/05/23 History ferric citrate 210 mg iron tablet 210 mg PO TIDWM 09/28/23 03/29/24 Unknown History (Auryxia) labetalol 200 mg tablet 100 mg PO BID 02/03/24 03/29/24 Unknown History escitalopram oxalate 10 mg tablet 10 mg PO DAILY 03/09/24 03/29/24 Unknown History albuterol sulfate 90 mcg/actuation 2 inh inhalation QID PRN shortness 03/29/24 03/29/24 Unknown History aerosol inhaler of breath or wheezing calcium acetate(phosphat bind) 667 2,668 mg PO TIDWM 03/29/24 03/29/24 Unknown History mg capsule ferric citrate 210 mg iron tablet 210 mg PO TIDWM 03/29/24 03/29/24 Unknown History (Auryxia) melatonin 10 mg capsule 10 mg PO HS 03/29/24 03/29/24 Unknown History nortriptyline 50 mg capsule 50 mg PO HS 03/29/24 03/29/24 Unknown History ondansetron 4 mg disintegrating 8 mg translingual Q8H PRN nausea 03/29/24 03/29/24 Unknown History tablet and vomiting torsemide 100 mg tablet 100 mg PO DAILY 03/29/24 03/29/24 Unknown History <FRANK Butler Last Filed: 03/29/24 01:36> Allergies/Adverse reactions: Allergies Allergy/AdvReac Type Severity Reaction Status Date / Time No Known Allergies Allergy Verified 03/28/24 16:42 <FRANK Butler Filed: 03/29/24 01:36> Review of Systems Review of Systems: All systems reviewed & are unremarkable except as noted in HPI. <FRANK Butler Filed: 03/29/24 01:36> All systems reviewed & are unremarkable except as noted in HPI and below <FRANK Butler Filed: 03/29/24 01:36> PENDING SALE TO [facility] Past Medical History Medical History: Medical History Peritoneal dialysis catheter in place Polyneuropathy HTN (hypertension) Vitamin D3 deficiency <Rosey Lee PA-C - Last Filed: 03/29/24 01:36> Surgical History Surgical History: Surgical History (Updated 03/29/24 @ 14:21 by Kavita Nogueira PA-C) History of appendectomy <Rosey Lee PA-C - Last Filed: 03/29/24 01:36> Family History Family History: Family History Father Hypertension <Rosey Lee PA-C - Last Filed: 03/29/24 01:36> Social History Social History: Social History (Updated 03/29/24 @ 14:22 by Kavita Nogueira PA-C) Social History: Lives alone in an apartment. No pets. Smoking packs per day: 1.5 Smoking cigarettes per day: 30.0 Years smoked: 20 Smoking pack-years: 30.00 Smoking status: Former smoker Tobacco type: cigarettes Alcohol intake: current Alcohol use details: rarely Substance use: current Substance use type: marijuana Other substance usage details: OCCASIONAL Do You Feel Safe in your Home?: Yes Lack of Transportation: No Lack of Food: Often True Current Housing: I Have Housing Concerned About Future Housing: No Difficulty Paying Gas/Electric Bills: YES Difficulty Paying for Meds: No Currently Unemployed: No Education: Bachelor's Degree Difficulty w/ Childcare or Family Care: No Living arrangements: with family Occupation/Education: unemployed Gender identity (if verbalized by the patient): Male Sexual Orientation (if Verbalized by the Patient): Straight or Heterosexual Spiritual care concerns: No Agree to blood products: Yes <Rosey Lee PA-C - Last Filed: 03/29/24 01:36> Exam Narrative: GENERAL: Appears older than stated age, obese with BMI of 32.4, non-toxic, in no acute distress. HEAD: Normocephalic, atraumatic. RESPIRATORY: Airway patent, respirations nonlabored. Clear to auscultation bilaterally, no rales, rhonchi, wheezing. CARDIOVASCULAR: Borderline tachycardic with regular rhythm without murmurs, rubs, or gallops. ABDOMINAL: Soft, mild diffuse tenderness throughout abdomen, nondistended. Normoactive BS. MUSCULOSKELETAL: Moves all extremities. No gross deformities. SKIN: Warm, dry, normal color. NEURO: A&O X3. Speech clear. Cranial nerves II-XII grossly intact. Steady gait. No ataxic movements. Strength 5/5 in upper and lower extremities bilaterally. No pronator drift. Equal production cost estimator strength bilaterally. No focal deficits. PSYCHIATRIC: Appropriate mood and affect. Normal interaction. <Rosey Lee PA-C - Last Filed: 03/29/24 01:36> Course PIG FURNACE OPERATOR/PA Physician Supervision PA informed me this patient would be admitted. I was available for consultation while patient was in the emergency department but did not personally evaluate them and was otherwise not directly involved in their care. <Aziza Cruz MD - Last Filed: 03/29/24 18:46> Vital Signs Vital signs: Vital Signs Temperature 97.9 F 03/28/24 16:47 Pulse Rate 113 H 03/28/24 16:47 Respiratory Rate 20 03/28/24 16:47 Blood Pressure 91/44 L 03/28/24 16:47 Pulse Oximetry 99 03/28/24 16:47 Oxygen Delivery Room Air 03/28/24 16:47 Temperature 97.6 F 03/29/24 08:00 Pulse Rate 106 H 03/29/24 08:00 Respiratory Rate 18 03/29/24 08:00 Blood Pressure 105/74 03/29/24 08:00 Pulse Oximetry 95 03/29/24 08:00 Oxygen Delivery Room Air 03/29/24 08:50 <Rosey Lee PA-C - Last Filed: 03/29/24 01:36> Vital Signs Temperature 97.9 F 03/28/24 16:47 Pulse Rate 113 H 03/28/24 16:47 Respiratory Rate 20 03/28/24 16:47 Blood Pressure 91/44 L 03/28/24 16:47 Pulse Oximetry 99 03/28/24 16:47 Oxygen Delivery Room Air 03/28/24 16:47 Temperature 97.6 F 03/29/24 08:00 Pulse Rate 106 H 03/29/24 08:00 Respiratory Rate 18 03/29/24 08:00 Blood Pressure 105/74 03/29/24 08:00 Pulse Oximetry 95 03/29/24 08:00 Oxygen Delivery Room Air 03/29/24 08:50 <Aziza Cruz MD - Last Filed: 03/29/24 18:46> MDM - Weakness MDM Narrative Medical decision making narrative: Patient presented to ED with generalized weakness, nausea, vomiting, multiple falls. Patient initially mildly hypotensive upon arrival, borderline tachycardic. This was improved by the time of my evaluation. Upon my exam, patient is neurologically intact. No focal deficits appreciated. Recent prolonged hospitalization for respiratory failure and fluid overload. This appears to be improved and patient states his weight has been stable recently, but patient has become decompensated from recent hospitalization. Cbc with blood cell count of 15.2. Per records, patient does appear to have chronic leukocytosis. H&H is stable. CMP with sodium 131, chloride 90. Slight anion gap at 18. Bicarb is within normal range. Given small amount of fluids slowly. Glucose is within normal range. BUN 56. Creatinine 15.49. Does appear fairly consistent patient's previous records. Baseline more so around about 13. Magnesium was borderline around 1.6. IV replacement was given. EKG with sinus tachycardia, nonspecific ST changes. Baseline troponin did result elevated at 0.050. Will continue to trend. Patient denies current chest pain. BNP is moderately elevated to 5670, actually improved from previous. CXR does show mild pulmonary vascular congestion. CT scan of abdomen/pelvis was obtained without acute pathology. Viral swabs are negative. Given patient's decompensation to the point that he is not able to manage at home, falling frequently, in addition to elevated troponin, missed dialysis treatments, will admit for further evaluation, PT/OT, rehab vs NH consult. Discussed case with Dr. Sarmiento, hospitalist, accepted patient for admission. Patient and family in agreement with plan. BP does run slightly soft per records. Patient given small amount of fluids in the ED. Will consult nephrology to arrange for further dialysis treatments. Discussed case with Dr. Dennis. Patient has now missed 2 peritoneal treatments (2/3, 2/) but does not appear overtly fluid overloaded at this time. <Rosey Lee PA-C - Last Filed: 03/29/24 01:36> Medical Records Attestation: I reviewed the patient's medical records. <Rosey Lee PA-C - Last Filed: 03/29/24 01:36> Lab Data Attestation: I reviewed the patient's lab results. <Rosey Lee PA-C - Last Filed: 03/29/24 01:36> Result diagrams: 03/28/24 20:07 03/28/24 20:08 <Rosey Lee PA-C - Last Filed: 03/29/24 01:36> Labs: Lab Results 03/28/24 03/28/24 03/28/24 Range/Units 20:07 20:08 22:59 WBC 15.2 H (4.5-10.0) K/mm3 RBC 4.22 L (4.6-6.20) M/mm3 Hgb 13.6 L (14.0-18.0) g/dL Hct 41.2 L (42.0-52.0) % MCV 97.6 (80-100) fl MCH 32.2 (26-34) pg MCHC 33.0 (32-36) g/dl RDW 13.9 (11.5-14.5) % Plt Count 423 H (150-375) k/mm3 MPV 9.2 (7.4-10.4) fl Immature Gran % (Auto) 0.5 (0-0.5) % Neut % (Auto) 70.7 (45.5-73.1) % Lymph % (Auto) 16.3 L (18.3-44.2) % [place] % (Auto) 9.4 H (2.6-8.5) % Eos % (Auto) 2.4 (0-4.4) % Baso % (Auto) 0.7 (0.2-1.2) % Lymph # (Auto) 2.47 (0.9-3.2) K/mm3 [place] # (Auto) 1.4 H (0.1-0.6) K/mm3 Eos # (Auto) 0.4 H (0-0.3) K/mm3 Baso # (Auto) 0.1 (0.0-0.1) K/mm3 Abs Immat Gran (auto) 0.08 H (0.00-0.031) K/mm3 Absolute Neuts (auto) 10.8 H (1.3-6.7) K/mm3 Absolute Nucleated RBC 0.000 (0.0-0.012) K/mm3 Nucleated RBC % 0.0 (0.0-0.2) % PT 14.6 (11.1-14.7) Seconds INR 1.1 APTT 32.5 (22.3-36.8) Seconds Sodium 131 L (137-145) mmol/L Potassium 3.4 (3.4-5.0) mmol/L Chloride 90 L (98-107) mmol/L Carbon Dioxide 23 (22-30) mmol/L Anion Gap 18 H (4-12) mmol/L BUN 56 H D (9-20) mg/dL Creatinine 15.49 H (0.7-1.3) mg/dL Estim Creat Clear Calc 6 ml/min Estimated GFR 3 L (59 - ) Glucose 106 (65-110) mg/dL POC Capillary Glucose (65-105) mg/dl Calcium 8.9 (8.4-10.2) mg/dL Magnesium 1.6 (1.6-2.3) mg/dL Total Bilirubin 0.7 (0.2-1.3) mg/dL AST 18 (17-59) U/L ALT 31 (6-50) U/L Alkaline Phosphatase 142 H (38-126) U/L Troponin I 0.050 H* 0.048 H* (0.000-0.034) ng/mL NT-Pro-B Natriuret Pep 5670 H (19.9-100) pg/mL Total Protein 7.0 (6.3-8.2) g/dL Albumin 3.7 (3.5-5.1) g/dL Nasal MRSA (PCR) (NOT DETECTE) Influenza A (RT-PCR) Negative (Negative) Influenza B (RT-PCR) Negative (Negative) RSV (RT-PCR) Negative (Negative) SARS-CoV-2 RNA (RT-PCR) Negative (Negative) 03/29/24 03/29/24 03/29/24 Range/Units 01:53 02:29 02:48 WBC (4.5-10.0) K/mm3 RBC (4.6-6.20) M/mm3 Hgb (14.0-18.0) g/dL Hct (42.0-52.0) % MCV (80-100) fl MCH (26-34) pg MCHC (32-36) g/dl RDW (11.5-14.5) % Plt Count (150-375) k/mm3 MPV (7.4-10.4) fl Immature Gran % (Auto) (0-0.5) % Neut % (Auto) (45.5-73.1) % Lymph % (Auto) (18.3-44.2) % [place] % (Auto) (2.6-8.5) % Eos % (Auto) (0-4.4) % Baso % (Auto) (0.2-1.2) % Lymph # (Auto) (0.9-3.2) K/mm3 [place] # (Auto) (0.1-0.6) K/mm3 Eos # (Auto) (0-0.3) K/mm3 Baso # (Auto) (0.0-0.1) K/mm3 Abs Immat Gran (auto) (0.00-0.031) K/mm3 Absolute Neuts (auto) (1.3-6.7) K/mm3 Absolute Nucleated RBC (0.0-0.012) K/mm3 Nucleated RBC % (0.0-0.2) % PT (11.1-14.7) Seconds INR APTT (22.3-36.8) Seconds Sodium (137-145) mmol/L Potassium (3.4-5.0) mmol/L Chloride (98-107) mmol/L Carbon Dioxide (22-30) mmol/L Anion Gap (4-12) mmol/L BUN (9-20) mg/dL Creatinine (0.7-1.3) mg/dL Estim Creat Clear Calc ml/min Estimated GFR (59 - ) Glucose (65-110) mg/dL POC Capillary Glucose 84 (65-105) mg/dl Calcium (8.4-10.2) mg/dL Magnesium (1.6-2.3) mg/dL Total Bilirubin (0.2-1.3) mg/dL AST (17-59) U/L ALT (6-50) U/L Alkaline Phosphatase (38-126) U/L Troponin I 0.049 H* (0.000-0.034) ng/mL NT-Pro-B Natriuret Pep (19.9-100) pg/mL Total Protein (6.3-8.2) g/dL Albumin (3.5-5.1) g/dL Nasal MRSA (PCR) Not detected (NOT DETECTE) Influenza A (RT-PCR) (Negative) Influenza B (RT-PCR) (Negative) RSV (RT-PCR) (Negative) SARS-CoV-2 RNA (RT-PCR) (Negative) <Rosey Lee PA-C - Last Filed: 03/29/24 01:36> Lab Results 03/28/24 03/28/24 03/28/24 Range/Units 20:07 20:08 22:59 WBC 15.2 H (4.5-10.0) K/mm3 RBC 4.22 L (4.6-6.20) M/mm3 Hgb 13.6 L (14.0-18.0) g/dL Hct 41.2 L (42.0-52.0) % MCV 97.6 (80-100) fl MCH 32.2 (26-34) pg MCHC 33.0 (32-36) g/dl RDW 13.9 (11.5-14.5) % Plt Count 423 H (150-375) k/mm3 MPV 9.2 (7.4-10.4) fl Immature Gran % (Auto) 0.5 (0-0.5) % Neut % (Auto) 70.7 (45.5-73.1) % Lymph % (Auto) 16.3 L (18.3-44.2) % [place] % (Auto) 9.4 H (2.6-8.5) % Eos % (Auto) 2.4 (0-4.4) % Baso % (Auto) 0.7 (0.2-1.2) % Lymph # (Auto) 2.47 (0.9-3.2) K/mm3 [place] # (Auto) 1.4 H (0.1-0.6) K/mm3 Eos # (Auto) 0.4 H (0-0.3) K/mm3 Baso # (Auto) 0.1 (0.0-0.1) K/mm3 Abs Immat Gran (auto) 0.08 H (0.00-0.031) K/mm3 Absolute Neuts (auto) 10.8 H (1.3-6.7) K/mm3 Absolute Nucleated RBC 0.000 (0.0-0.012) K/mm3 Nucleated RBC % 0.0 (0.0-0.2) % PT 14.6 (11.1-14.7) Seconds INR 1.1 APTT 32.5 (22.3-36.8) Seconds Sodium 131 L (137-145) mmol/L Potassium 3.4 (3.4-5.0) mmol/L Chloride 90 L (98-107) mmol/L Carbon Dioxide 23 (22-30) mmol/L Anion Gap 18 H (4-12) mmol/L BUN 56 H D (9-20) mg/dL Creatinine 15.49 H (0.7-1.3) mg/dL Estim Creat Clear Calc 6 ml/min Estimated GFR 3 L (59 - ) Glucose 106 (65-110) mg/dL POC Capillary Glucose (65-105) mg/dl Calcium 8.9 (8.4-10.2) mg/dL Magnesium 1.6 (1.6-2.3) mg/dL Total Bilirubin 0.7 (0.2-1.3) mg/dL AST 18 (17-59) U/L ALT 31 (6-50) U/L Alkaline Phosphatase 142 H (38-126) U/L Troponin I 0.050 H* 0.048 H* (0.000-0.034) ng/mL NT-Pro-B Natriuret Pep 5670 H (19.9-100) pg/mL Total Protein 7.0 (6.3-8.2) g/dL Albumin 3.7 (3.5-5.1) g/dL Nasal MRSA (PCR) (NOT DETECTE) Influenza A (RT-PCR) Negative (Negative) Influenza B (RT-PCR) Negative (Negative) RSV (RT-PCR) Negative (Negative) SARS-CoV-2 RNA (RT-PCR) Negative (Negative) 03/29/24 03/29/24 03/29/24 Range/Units 01:53 02:29 02:48 WBC (4.5-10.0) K/mm3 RBC (4.6-6.20) M/mm3 Hgb (14.0-18.0) g/dL Hct (42.0-52.0) % MCV (80-100) fl MCH (26-34) pg MCHC (32-36) g/dl RDW (11.5-14.5) % Plt Count (150-375) k/mm3 MPV (7.4-10.4) fl Immature Gran % (Auto) (0-0.5) % Neut % (Auto) (45.5-73.1) % Lymph % (Auto) (18.3-44.2) % [place] % (Auto) (2.6-8.5) % Eos % (Auto) (0-4.4) % Baso % (Auto) (0.2-1.2) % Lymph # (Auto) (0.9-3.2) K/mm3 [place] # (Auto) (0.1-0.6) K/mm3 Eos # (Auto) (0-0.3) K/mm3 Baso # (Auto) (0.0-0.1) K/mm3 Abs Immat Gran (auto) (0.00-0.031) K/mm3 Absolute Neuts (auto) (1.3-6.7) K/mm3 Absolute Nucleated RBC (0.0-0.012) K/mm3 Nucleated RBC % (0.0-0.2) % PT (11.1-14.7) Seconds INR APTT (22.3-36.8) Seconds Sodium (137-145) mmol/L Potassium (3.4-5.0) mmol/L Chloride (98-107) mmol/L Carbon Dioxide (22-30) mmol/L Anion Gap (4-12) mmol/L BUN (9-20) mg/dL Creatinine (0.7-1.3) mg/dL Estim Creat Clear Calc ml/min Estimated GFR (59 - ) Glucose (65-110) mg/dL POC Capillary Glucose 84 (65-105) mg/dl Calcium (8.4-10.2) mg/dL Magnesium (1.6-2.3) mg/dL Total Bilirubin (0.2-1.3) mg/dL AST (17-59) U/L ALT (6-50) U/L Alkaline Phosphatase (38-126) U/L Troponin I 0.049 H* (0.000-0.034) ng/mL NT-Pro-B Natriuret Pep (19.9-100) pg/mL Total Protein (6.3-8.2) g/dL Albumin (3.5-5.1) g/dL Nasal MRSA (PCR) Not detected (NOT DETECTE) Influenza A (RT-PCR) (Negative) Influenza B (RT-PCR) (Negative) RSV (RT-PCR) (Negative) SARS-CoV-2 RNA (RT-PCR) (Negative) <Aziza Cruz MD - Last Filed: 03/29/24 18:46> Imaging Data Attestation: I personally reviewed and interpreted this imaging study as follows: <Rosey Lee PA-C - Last Filed: 03/29/24 01:36> Radiologist's impression: ITS Impressions Chest X-Ray 03/28/24 17:33 IMPRESSION: Peribronchial thickening with mild pulmonary vascular congestion, without focal infiltrate or effusion. Abdomen/Pelvis CT 03/28/24 21:54 IMPRESSION: No acute intra-abdominal pathology. Innumerable nonacute findings, as detailed above. <Rosey Lee PA-C - Last Filed: 03/29/24 01:36> ECG Data EKG #1: Attestation: I personally reviewed and interpreted this ECG as follows: <Rosey Lee PA-C - Last Filed: 03/29/24 01:36> ECG completion date: 03/28/24 <Rosey Lee PA-C - Last Filed: 03/29/24 01:36> ECG completion time: 20:10 <FRANK Butler Last Filed: 03/29/24 01:36> EKG Interpretation: tachycardia (119), sinus rhythm, PVCs and non-specific ST changes <Rosey Lee PA-C - Last Filed: 03/29/24 01:36> Discharge Plan Discharge Clinical Impression: End-stage renal disease on peritoneal dialysis, Generalized weakness, Elevated troponin, Multiple falls Nausea and vomiting Qualifiers: Vomiting type: unspecified Qualified Code(s): R11.2 - Nausea with vomiting, unspecified <Rosey Lee PA-C - Last Filed: 03/29/24 01:36> Patient Disposition: Still a Patient <Rosey Lee PA-C - Last Filed: 03/29/24 01:36> Condition: Stable <FRANK Butler Last Filed: 03/29/24 01:36>
[2024-03-28 22:27] VITALS: BP 109/81; PULSE 107; RESP 18; O2SAT 97
--- NOTE | 2024-03-28 22:48 | ECG_ITS ---
Test Date: 2024-03-28 23:02:45 Measurements Intervals [place] Rate: 110 P: 0 ME: 0 QRS: 32 QRSD: 118 T: 41 QT: 336 QTc: 456 Interpretive Statements SINUS TACHYCARDIA ATRIAL AND VENTRICULAR PREMATURE COMPLEXES INCOMPLETE LEFT BUNDLE BRANCH BLOCK DELAYED PRECORDIAL R/S TRANSITION BORDERLINE ST-T WAVE ABNORMALITY- INF/LAT LEADS BASELINE ARTIFACT- I, II, III, AVR, AVL, AVF, V1-V6 ABNORMAL ECG Compared to ECG 03/28/2024 20:10:50 NO SIGNIFICANT CHANGE Electronically Signed On 03-29-2024 07:04:50 SENIOR PROCUREMENT SPECIALIST by Quang Johnson D.O.
--- NOTE | 2024-03-28 23:03 | ECG_ITS ---
Test Date: 2024-03-28 23:03:52 Measurements Intervals [place] Rate: 109 P: 65 MD: 182 QRS: 29 QRSD: 120 T: 44 QT: 340 QTc: 459 Interpretive Statements SINUS TACHYCARDIA WITH OCCASIONAL SUPRAVENTRICULAR PREMATURE COMPLEXES INCOMPLETE LEFT BUNDLE BRANCH BLOCK BORDERLINE ST-T WAVE ABNORMALITY- HIGH LATERAL LEADS BASELINE ARTIFACT- I, II, III, AVR, AVL, AVF, V1-V2 ABNORMAL ECG Compared to ECG 03/28/2024 23:02:45 NO SIGNIFICANT CHANGE Electronically Signed On 03-29-2024 13:40:13 MEDICAL LAB DIRECTOR by Quang Johnson D.O.
[2024-03-28 23:46] LABS: Troponin I 0.048 ng/mL (0.000-0.034)
[2024-03-29] VITALS (9 sets, daily range): BP systolic 88–134; BP diastolic 65–96; PULSE 85–111; RESP 16–20; TEMP 36.2–36.9; O2SAT 94–100; BMI 31.3
[2024-03-29] MEDS: SODIUM CHLORIDE 0.9% IV 500 ML 999 ML IV CONT (01:04)
--- NOTE | 2024-03-29 01:55 | ADMGEN ---
This patient, Real Rolon, was admitted to Medical Room 248-01. Patient/family oriented to hospital policies and general routines including ID bracelet, bed and alarms, visiting hours, pain management, procedures, bathroom and other care routines, personal items, smoking policy, room service/diet, and visiting hours. Information on how to activate the Rapid Response Team has been discussed. Patient/Family are encouraged to report perceived risks to care and to ask questions if they do not understand what they are told or what they should do.
[2024-03-29 01:56] LABS: Glucose Point of Care 84 mg/dl (65-105)
[2024-03-29 03:25] LABS: Troponin I 0.049 ng/mL (0.000-0.034)
[2024-03-29 04:04] LABS: MRSA (PCR) NOT DETECTED (NOT DETECTE)
--- NOTE | 2024-03-29 06:49 | P.HP_ITS ---
H&P: HPI History of Present Illness Date/Time: 03/29/24 06:49 Chief Complaint: nausea/vomiting and weakness Narrative: 54 year old male with past medical history of ESRD on peritoneal dialysis, hypertension, and polyneuropathy presents to the hospital for nausea/vomiting, weakness and multiple falls. Patient was recently admitted to the hospital from 03/09-03/21 for volume overload and respiratory failure secondary to missing PD. At that time he required continuous dialysis and per patient he lost 40lbs that admission. He was then discharged home where he stated he was doing well for a few days but then developed nausea and had an episode of vomiting. Denies hematemesis. He notes a severely decreased appetite. Denies any abdominal pain or fevers. Patient states that he has had 2 falls where he becomes lightheaded after standing up from his chair. He then goes to walk and his legs give out on him resulting in him falling to the floor. Per mom the most recent fall resulted in him hitting his bottom on the concrete. Patient has been endorsing worsening lower back pain since this fall. He denies any loss of consciousness and hitting his head. He also denies any tingling/numbness, shooting pain to the lower extremities or loss of bowel/bladder since the fall. Patient is not on any anticoagulation. Patient states that at the prior admission he had a lot of changes made to his antihypertensive medications. He notes that he has been monitoring his blood pressures and prior to taking his labetalol he has been in the low 100s systolic. Due to the increased weakness and feeling unwell the patient notes that he has missed two rounds of his peritoneal dialysis which prompted him to come to the hospital for further evaluation. ED workup: CBC with WBC 15.2, H/H 13.6/41.2, and PLT 423. PT/INR 14.6/1.1, PTT 32.5. CMP with Na 131, K 3.4. BUN/Cr 56/15.49. Anion gap 18. Glucose 106. Tot bili 0.7, AST 18, ALT 31, Alk phos 142. Troponin 0.048. BNP 5670. Viral panel negative. Chest XR: Peribronchial thickening with mild pulmonary vascular congestion, without focal infiltrate or effusion. Abdomen/pelvis CT: No acute intraabdominal pathology. Review of Systems Review of Systems: All systems reviewed & are unremarkable except as noted in HPI and below PMFSH Past Medical History Medical History Peritoneal dialysis catheter in place Polyneuropathy HTN (hypertension) Vitamin D3 deficiency Surgical History Surgical History (Updated 03/29/24 @ 14:21 by Kavita Nogueira PA-C) History of appendectomy Family History Family History Father Hypertension Social History Social History (Updated 03/29/24 @ 14:22 by Kavita Nogueira PA-C) Social History: Lives alone in an apartment. No pets. Smoking packs per day: 1.5 Smoking cigarettes per day: 30.0 Years smoked: 20 Smoking pack-years: 30.00 Smoking status: Former smoker Tobacco type: cigarettes Alcohol intake: current Alcohol use details: rarely Substance use: current Substance use type: marijuana Other substance usage details: OCCASIONAL Do You Feel Safe in your Home?: Yes Lack of Transportation: No Lack of Food: Often True Current Housing: I Have Housing Concerned About Future Housing: No Difficulty Paying Gas/Electric Bills: YES Difficulty Paying for Meds: No Currently Unemployed: No Education: Bachelor's Degree Difficulty w/ Childcare or Family Care: No Living arrangements: with family Occupation/Education: unemployed Gender identity (if verbalized by the patient): Male Sexual Orientation (if Verbalized by the Patient): Straight or Heterosexual Spiritual care concerns: No Agree to blood products: Yes Meds Home Medications and Allergies Home Medications ?Medication ?Instructions ?Recorded ?Confirmed ?Type gentamicin 0.1 % topical cream 1 applic topical TID PRN DIALYSIS 08/31/22 03/29/24 History CATH. calcium carbonate (Tums) 200 mg PO HS PRN Indigestion 07/20/23 03/29/24 History cinacalcet 30 mg tablet 90 mg PO DAILY 07/20/23 03/29/24 History multivitamin 1 tablet PO DAILY 07/29/23 03/29/24 History ferric citrate 210 mg iron tablet 210 mg PO TIDWM 09/28/23 03/29/24 History (Auryxia) potassium chloride 20 mEq 40 meq (2 x 20 mEq) PO DAILY #15 10/12/23 03/29/24 Rx tablet,extended release (K-Tab) tabs gabapentin 300 mg capsule See Rx Instructions .Route 10/26/23 03/29/24 Rx .COMPLEX #270 caps hydrocodone 5 mg-acetaminophen 325 1 tablet PO Q8H PRN Pain Rated 01/31/24 03/29/24 Rx mg tablet 4-10 #90 tabs labetalol 200 mg tablet 100 mg PO BID 02/03/24 03/29/24 History buspirone 10 mg tablet See Rx Instructions .Route 02/14/24 03/29/24 Rx .COMPLEX #90 tabs diphenoxylate-atropine 2.5 1 tablet PO QID PRN diarrhea #60 03/08/24 03/29/24 Rx mg-0.025 mg tablet tabs omeprazole 20 mg capsule,delayed 20 mg PO DAILY #90 caps 03/08/24 03/29/24 Rx release escitalopram oxalate 10 mg tablet 10 mg PO DAILY 03/09/24 03/29/24 History albuterol sulfate 90 mcg/actuation 2 inh inhalation QID PRN shortness 03/29/24 03/29/24 History aerosol inhaler of breath or wheezing calcium acetate(phosphat bind) 667 2,668 mg PO TIDWM 03/29/24 03/29/24 History mg capsule ferric citrate 210 mg iron tablet 210 mg PO TIDWM 03/29/24 03/29/24 History (Auryxia) melatonin 10 mg capsule 10 mg PO HS 03/29/24 03/29/24 History nortriptyline 50 mg capsule 50 mg PO HS 03/29/24 03/29/24 History ondansetron 4 mg disintegrating 8 mg translingual Q8H PRN nausea 03/29/24 03/29/24 History tablet and vomiting torsemide 100 mg tablet 100 mg PO DAILY 03/29/24 03/29/24 History Allergies Allergy/AdvReac Type Severity Reaction Status Date / Time No Known Allergies Allergy Verified 03/28/24 16:42 Vital Signs Vital Signs - 24 hr 03/28/24 16:47 03/28/24 20:08 03/28/24 20:28 Temperature 97.9 F 98.4 F Pulse Rate 113 H 80 114 H Respiratory Rate 20 16 Blood Pressure 91/44 L 86/62 L Pulse Oximetry 99 100 Oxygen Delivery Room Air 03/28/24 20:28 03/28/24 20:42 03/28/24 22:27 Temperature Pulse Rate 112 H 104 H 107 H Respiratory Rate 20 17 18 Blood Pressure 107/78 107/78 109/81 Pulse Oximetry 100 100 97 Oxygen Delivery Room Air 03/29/24 01:30 03/29/24 01:45 03/29/24 01:58 Temperature 97.6 F Pulse Rate 109 H 107 H Respiratory Rate 20 18 Blood Pressure 117/87 134/83 Pulse Oximetry 96 100 100 Oxygen Delivery Room Air 03/29/24 05:03 Temperature 97.1 F L Pulse Rate 105 H Respiratory Rate 16 Blood Pressure 102/76 Pulse Oximetry 94 Oxygen Delivery Exam Narrative: AF HR 106 RR 18 SPO2 95 BP 105/74 General: male in no acute respiratory distress who is nontoxic appearing, lying semi recumbent in bed. HEENT: Normocephalic. Atraumatic. Extraocular movement intact. Sclera clear and anicteric. No facial asymmetry. Neck: Neck was supple. No dominant adenopathy, thyromegaly or masses. Chest: Lungs are clear to auscultation bilaterally. No wheezes or crackles. CV: Heart was regular rate and rhythm. S1/S2. No murmurs, gallops, or rubs. Abd: Abdomen was soft. Nontender. Nondistended. Positive bowel sounds. PD site is nonconcerning for infection. Ext: No clubbing, cyanosis, or edema. 1+ DP pulses bilaterally. Neuro: Patient is alert and oriented x4. Strength is 5/5 in both upper and lower extremities. Cranial nerves 2-12 are intact. Speech is clear. Psych: Normal nood and affect. Patient is pleasant and cooperative. Skin: Warm and dry. No rashes noted. H&P: Results Labs Labs: Short CBC 03/28/24 Range/Units 20:07 WBC 15.2 H (4.5-10.0) K/mm3 Hgb 13.6 L (14.0-18.0) g/dL Hct 41.2 L (42.0-52.0) % Plt Count 423 H (150-375) k/mm3 BMP 03/28/24 20:08 Sodium 131 L Potassium 3.4 Chloride 90 L Carbon Dioxide 23 BUN 56 H D Creatinine 15.49 H Glucose 106 Calcium 8.9 Cardiac Enzymes 03/28/24 03/28/24 03/29/24 Range/Units 20:08 22:59 02:29 Troponin I 0.050 H* 0.048 H* 0.049 H* (0.000-0.034) ng/mL Liver Function 03/28/24 Range/Units 20:08 Total Bilirubin 0.7 (0.2-1.3) mg/dL AST 18 (17-59) U/L ALT 31 (6-50) U/L Alkaline Phosphatase 142 H (38-126) U/L Albumin 3.7 (3.5-5.1) g/dL Assessment and Plan Assessment and plan (1) Fluid overload: Qualifiers: Hypervolemia type: unspecified Qualified Code(s): E87.70 - Fluid overload, unspecified Code(s): E87.70 - Fluid overload, unspecified Status: Acute Assessment and Plan: Patient has missed two peritoneal dialysis appointments on 03/26. BUN/Cr 56/15.49 on admission. - BNP: 5670 - Chest XR: Peribronchial thickening with mild pulmonary vascular congestion, without focal infiltrate or effusion. - Resume torsemide 100 mg daily - Monitor I/O and daily weights - Nephrology consulted, appreciate recommendations (2) End-stage renal disease on peritoneal dialysis: Code(s): N18.6 - End stage renal disease; Z99.2 - Dependence on renal dialysis Status: Acute Assessment and Plan: End-stage renal disease on peritoneal dialysis PD schedule per paediatric physiotherapist patient also is on torsemide, will continue (3) Elevated troponin: Code(s): R79.89 - Other specified abnormal findings of blood chemistry Status: Acute Assessment and Plan: Troponin 0.048, repeat 0.049. Remains flat. Likely secondary to volume overload causing demand ischemia. Patient denying chest pain and palpitations. - EKG sinus tachycardia - Echo 10/09/23: LVEF 55-60% with grade I diastolic dysfunction - Monitor (4) Multiple falls: Code(s): R29.6 - Repeated falls Status: Acute Assessment and Plan: 2 falls where he becomes lightheaded after standing up from his chair. He then goes to walk and his legs give out on him resulting in him falling to the floor. He denies any loss of consciousness and hitting his head. He also denies any tingling/numbness, shooting pain to the lower extremities or loss of bowel/bladder since the fall. Patient is not on any anticoagulation. - Orthostatic blood pressures q shift - Head CT 1. 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 2. Stable moderate nonspecific cerebral white matter disease, which likely represents chronic small vessel ischemic disease. - C/T/L spine CT: No fracture. Severe cervical spine spondylosis. Moderate thoracic/lumbar spondylosis. - PT/OT (5) HTN (hypertension): Code(s): I10 - Essential (primary) hypertension Status: Chronic Assessment and Plan: Chronic - Currently holding antihypertensives as patient has been borderline hypotensive - Continue to monitor and resume as appropriate Quality VTE Prophylaxis VTE prophylaxis: pharmacologic ordered Hospitalist MIPS Advance Care Plan I have confirmed that the patient's Advanced Care Plan is present, code status is documented, or surrogate decision maker is listed in patient medical record.: Yes Medication Reconciliation I have utilized all available resources to obtain, update and review the patients current medications (includes all prescriptions, OTC, herbals, can nabis, and nutritional supplements).: Yes
[2024-03-29 08:18] LABS: Glucose Point of Care 103 mg/dl (65-105)
[2024-03-29] MEDS: TORSEMIDE 20 MG TABLET 100 MG PO (08:49)
[2024-03-29] MEDS: CINACALCET 30 MG TABLET 90 MG PO (08:49)
[2024-03-29] MEDS: ESCITALOPRAM OXALATE 10 MG TABLET PO (08:50)
[2024-03-29] MEDS: busPIRone HCL 10 MG TABLET PO ×3 (08:50→17:05)
[2024-03-29] MEDS: GABAPENTIN 300 MG CAPSULE PO ×3 (08:50→17:05)
[2024-03-29] MEDS: PANTOPRAZOLE 40 MG TABLET PO (08:50)
[2024-03-29] MEDS: ONDANSETRON INJ 4 MG/2 ML VIAL IV PUSH ×3 (08:52→21:01)
[2024-03-29] MEDS: ACETAMINOPHEN 325 MG TABLET 650 MG PO (10:39)
[2024-03-29 12:14] LABS: Glucose Point of Care 99 mg/dl (65-105)
--- NOTE | 2024-03-29 13:57 | P.CONNP_ITS ---
Assessment and Plan Assessment and plan (1) End stage renal disease: Code(s): N18.6 - End stage renal disease Status: Chronic Assessment and Plan: * continue nightly CCPD * adjust PD Rx as needed * follow electrolytes, volume status, and clearance * replete electrolytes as needed (2) Multiple falls: Code(s): R29.6 - Repeated falls Status: Acute Assessment and Plan: * suspect multifactorial: * deconditioning from recent hospitalization * hypotension * continued use of BP medications in the context of relative hypotension * possible autonomic neuropathy(?) * other(?) * CT of head without acute findings: * 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 * stable moderate nonspecific cerebral white matter disease, which likely represents chronic small vessel ischemic disease * holding BP medications * follow orthostatic BP * PT/OT as tolerated (3) Fluid overload: Qualifiers: Hypervolemia type: unspecified Qualified Code(s): E87.70 - Fluid overload, unspecified Code(s): E87.70 - Fluid overload, unspecified Status: Acute Assessment and Plan: * known history as noted by recent hospitalization (February 2024) * s/p aggressive PD treatments on last hospitalization with significant ultrafiltration * 8.2L negative by the time of discharge * admission CXR noted: * peribronchial thickening with mild pulmonary vascular congestion without focal infiltrate or effusion * continue fluid removal with PD to optimize volume status * also on torsemide (since has some residual kidney function and makes urine) * follow daily weights and I/Os (4) Hypokalemia: Code(s): E87.6 - Hypokalemia Status: Acute Assessment and Plan: * due to PD and torsemide in association with vomiting * on scheduled potassium supplementation * PRN dosing as needed * follow trend of K+ level (5) HTN (hypertension): Code(s): I10 - Essential (primary) hypertension Status: Chronic Assessment and Plan: * reasonable control at this time * BP running lower than baseline * lower BPs contributing to #2 (?) * follow trend of hemodynamics (6) Anemia: Code(s): D64.9 - Anemia, unspecified Status: Acute Assessment and Plan: * H/H supratherapeutic for ESRD * holding Epogen * follow trend of H/H (7) Generalized weakness: Code(s): R53.1 - Weakness Status: Acute Assessment and Plan: * suspect related to recent hospitalization/deconditioning in association with prior influenza infection * PT/OT as tolerated I will continue to follow the patient with you while he remains hospitalized and make further recommendations as deemed necessary. Thank you for allowing me to participate in the care of this patient. L History of Present Illness Reason for Consult Consult date: 03/29/24 Reason for consult: end stage renal disease Chief Complaint Chief complaint: weakness, ESRD on peritoneal dialysis, N/V History of Present Illness Narrative: The patient is a 53-year-old male with a past medical history as outlined below who presented to [facility] Emergency Room with complaints nausea/vomiting, generalized weakness, and multiple falls. The patient was just recently hospitalized last month at [facility] for volume overload and acute hypoxic respiratory failure complicated by influenza infection. During that hospital stay, he received aggressive peritoneal dialysis throughout the day and evening with a significant loss of fluid weight. He was subsequently discharged and had been doing reasonably well at home for last several days until he developed on and off nausea in association with vomiting this was worsened by the fact that he had poor oral intake as well. Further complicating matters is the fact that he reports increasing dizziness and lightheadedness with standing which is resulted at least 2 falls without any associated trauma. He reports no chest pain, palpitations, shortness of breath, or vertigo prior to or after the falls he denies any loss of consciousness either. He reports his home blood pressure readings have been running in the low 100 systolic but he continued to take his antihypertensive medications as prescribed on discharge. Given his weakness, nausea, vomiting, and falls, he came to the emergency room for further assessment. Workup and evaluation emergency room demonstrated the patient to be hemodynamically stable and afebrile. Routine blood work was significant for a white blood cell count of 15.2, hemoglobin of 13.6, and platelet count of 423 in association with normal coagulation studies and a chemistry that was consistent with his known history of end-stage renal disease without any critical electrolyte abnormalities. His proBNP was 56 70 and initial troponin was mildly elevated but consistent with his previous readings. Viral testing for influenza, RSV, and COVID were negative. His chest x-ray demonstrated peribronchial thickening with mild pulmonary vascular congestion without infiltrate or effusion. CT scan of the abdomen pelvis did not demonstrate any acute intra-abdominal pathology either. Given his constellation of symptoms and testing in the ER, there was a concern he may need placement given his deconditioned state and he was subsequently admitted to the hospital for further evaluation and therapy. Renal consultation was requested due to his end-stage renal disease on peritoneal dialysis. The patient normally follows with Dr. Xavier Marcus for management of his end-stage renal disease and peritoneal dialysis via [facility]. As mentioned above, he was recently admitted here to [facility] last month for fluid overload and responded to aggressive peritoneal dialysis throughout the day and evening. With the aggressive fluid removal noted during that hospital stay, his blood pressure normalized if not ran on the lower side of normal. His blood pressure medications were actually discontinued while he was hospitalized between his the end of his hospital stay and closer to discharge, his blood pressure started to slowly creep back up to its normal range and he was restarted on his antihypertensive medications but at a significantly reduced dose. Given his symptoms as mentioned above, he reports that he has not done his peritoneal dialysis for last 2 evenings prior to his presentation to the ER. Currently, at the time my evaluation, he appears to be in no acute distress. Review of Systems 2 Review of Systems: As per HPI. [facility] Past Medical History Medical History Peritoneal dialysis catheter in place Polyneuropathy HTN (hypertension) Vitamin D3 deficiency Surgical History Surgical History (Updated 03/29/24 @ 14:21 by Kavita Nogueira PA-C) History of appendectomy Family History Family History Father Hypertension Social History Social History (Updated 03/29/24 @ 14:22 by Kavita Nogueira PA-C) Social History: Lives alone in an apartment. No pets. Smoking packs per day: 1.5 Smoking cigarettes per day: 30.0 Years smoked: 20 Smoking pack-years: 30.00 Smoking status: Former smoker Tobacco type: cigarettes Alcohol intake: current Alcohol use details: rarely Substance use: current Substance use type: marijuana Other substance usage details: OCCASIONAL Do You Feel Safe in your Home?: Yes Lack of Transportation: No Lack of Food: Often True Current Housing: I Have Housing Concerned About Future Housing: No Difficulty Paying Gas/Electric Bills: YES Difficulty Paying for Meds: No Currently Unemployed: No Education: Bachelor's Degree Difficulty w/ Childcare or Family Care: No Living arrangements: with family Occupation/Education: unemployed Gender identity (if verbalized by the patient): Male Sexual Orientation (if Verbalized by the Patient): Straight or Heterosexual Spiritual care concerns: No Agree to blood products: Yes Meds Home Medications and Allergies Home Medications ?Medication ?Instructions ?Recorded ?Confirmed ?Type gentamicin 0.1 % topical cream 1 applic topical TID PRN DIALYSIS 08/31/22 03/29/24 History CATH. calcium carbonate (Tums) 200 mg PO HS PRN Indigestion 07/20/23 03/29/24 History cinacalcet 30 mg tablet 90 mg PO DAILY 07/20/23 03/29/24 History multivitamin 1 tablet PO DAILY 07/29/23 03/29/24 History ferric citrate 210 mg iron tablet 210 mg PO TIDWM 09/28/23 03/29/24 History (Auryxia) potassium chloride 20 mEq 40 meq (2 x 20 mEq) PO DAILY #15 10/12/23 03/29/24 Rx tablet,extended release (K-Tab) tabs gabapentin 300 mg capsule See Rx Instructions .Route 10/26/23 03/29/24 Rx .COMPLEX #270 caps hydrocodone 5 mg-acetaminophen 325 1 tablet PO Q8H PRN Pain Rated 01/31/24 03/29/24 Rx mg tablet 4-10 #90 tabs labetalol 200 mg tablet 100 mg PO BID 02/03/24 03/29/24 History buspirone 10 mg tablet See Rx Instructions .Route 02/14/24 03/29/24 Rx .COMPLEX #90 tabs diphenoxylate-atropine 2.5 1 tablet PO QID PRN diarrhea #60 03/08/24 03/29/24 Rx mg-0.025 mg tablet tabs omeprazole 20 mg capsule,delayed 20 mg PO DAILY #90 caps 03/08/24 03/29/24 Rx release escitalopram oxalate 10 mg tablet 10 mg PO DAILY 03/09/24 03/29/24 History albuterol sulfate 90 mcg/actuation 2 inh inhalation QID PRN shortness 03/29/24 03/29/24 History aerosol inhaler of breath or wheezing calcium acetate(phosphat bind) 667 2,668 mg PO TIDWM 03/29/24 03/29/24 History mg capsule ferric citrate 210 mg iron tablet 210 mg PO TIDWM 03/29/24 03/29/24 History (Auryxia) melatonin 10 mg capsule 10 mg PO HS 03/29/24 03/29/24 History nortriptyline 50 mg capsule 50 mg PO HS 03/29/24 03/29/24 History ondansetron 4 mg disintegrating 8 mg translingual Q8H PRN nausea 03/29/24 03/29/24 History tablet and vomiting torsemide 100 mg tablet 100 mg PO DAILY 03/29/24 03/29/24 History Allergies Allergy/AdvReac Type Severity Reaction Status Date / Time No Known Allergies Allergy Verified 03/28/24 16:42 Vital Signs Vital Signs Temp Pulse Resp BP Pulse Ox O2 Del Method 03/29/24 08:50 Room Air 03/29/24 08:00 97.6 F 106 H 18 105/74 95 03/29/24 05:03 97.1 F L 105 H 16 102/76 94 03/29/24 01:58 97.6 F 107 H 18 134/83 100 03/29/24 01:45 100 Room Air 03/29/24 01:30 109 H 20 117/87 96 03/28/24 22:27 107 H 18 109/81 97 03/28/24 20:42 104 H 17 107/78 100 Room Air 03/28/24 20:28 112 H 20 107/78 100 03/28/24 20:28 114 H 03/28/24 20:08 98.4 F 80 16 86/62 L 100 Exam 2 Narrative: GENERAL APPEARANCE: well developed well nourished male in no acute distress HEENT: normocephalic, atraumatic, normal conjunctiva and sclera, nares patient NECK: no lymphadenopathy, thyromegaly, or JVD MOUTH: normal lips, teeth, and gums CARDIOVASCULAR: RRR, normal S1 and S2, no rub RESPIRATORY: clear anteriorly; decreased at bases ABDOMEN: soft, nontender, nondistended, positive bowel sounds present; PD catheter C/D/I EXTREMITIES: no evidence of cyanosis, clubbing, or edema NEUROLOGICAL: alert and oriented x 3; CN II - XII intact bilaterally; no focal deficits noted Results Lab Results 04/05/24 05:29 04/05/24 05:29 Lab results: Most recent lab results Calcium 8.9 mg/dL (8.4-10.2) 03/28/24 20:08 Magnesium 1.6 mg/dL (1.6-2.3) 03/28/24 20:07
[2024-03-29] MEDS: CALCIUM ACETATE 667 MG TABLET 2668 MG PO (17:05)
[2024-03-29 17:14] LABS: Glucose Point of Care 95 mg/dl (65-105)
[2024-03-29] MEDS: NORTRIPTYLINE HCL 25 MG CAPSULE 50 MG PO (20:58)
[2024-03-29 21:49] LABS: Glucose Point of Care 132 mg/dl (65-105)
[2024-03-30] VITALS (10 sets, daily range): BP systolic 93–138; BP diastolic 59–122; PULSE 55–111; RESP 18–20; TEMP 36.5–37.1; O2SAT 20–100
[2024-03-30 05:49] LABS: Basophils Absolute Auto 0.1 K/mm3 (0.0-0.1); Basophils Percent Auto 0.5 % (0.2-1.2); Eosinophils Absolute Auto 0.4 K/mm3 (0-0.3); Hematocrit 37.1 % (42.0-52.0); Hemoglobin 12.2 g/dL (14.0-18.0); Immature Granulocyte Absolute 0.04 K/mm3 (0.00-0.031); Immature Granulocyte Percent A 0.4 % (0-0.5); Lymphocytes Absolute Auto 1.96 K/mm3 (0.9-3.2); Lymphocytes Percent Auto 17.6 % (18.3-44.2); Mean Corpuscular HGB Conc 32.9 g/dl (32-36); Mean Corpuscular Hemoglobin 31.7 pg (26-34); Mean Corpuscular Volume 96.4 fl (80-100); Mean Platelet Volume 9.4 fl (7.4-10.4); Monocytes Absolute Auto 1.4 K/mm3 (0.1-0.6); Monocytes Percent Auto 12.7 % (2.6-8.5); Neutrophils Absolute Auto 7.2 K/mm3 (1.3-6.7); Neutrophils Percent Auto 64.8 % (45.5-73.1); Platelet Count Result 370 k/mm3 (150-375); Red Blood Count 3.85 M/mm3 (4.6-6.20); Red Cell Distribution Width 13.2 % (11.5-14.5); White Blood Count 11.1 K/mm3 (4.5-10.0)
[2024-03-30 06:06] LABS: Alanine Aminotransferase 25 U/L (6-50); Albumin Level 3.4 g/dL (3.5-5.1); Alkaline Phosphatase 131 U/L (38-126); Anion Gap 21 mmol/L (4-12); Aspartate Amino Transferase 18 U/L (17-59); Bilirubin,Total 0.6 mg/dL (0.2-1.3); Blood Urea Nitrogen 59 mg/dL (9-20); Calcium 8.2 mg/dL (8.4-10.2); Carbon Dioxide 22 mmol/L (22-30); Chloride 91 mmol/L (98-107); Estimated CRCL calculation 6 ml/min; Estimated Glomerular Filt Rate 3; Glucose 117 mg/dL (65-110); Potassium 2.8 mmol/L (3.4-5.0); Sodium 134 mmol/L (137-145)
--- NOTE | 2024-03-30 06:52 | P.CDI_ITS ---
CDI Query Clarification Request BMI: 31.1 Nutritional Diagnostic Statement: Please refer to the comprehensive nutrition assessment for further information. If you agree with diagnosis of Severe protein calorie malnutrition related to poor appetite, as evidenced by weight loss -20%/2 months; intakes <50% needs >1 week; moderate muscle wasting to temporalis, clavicles. Please specify severity if known: * Mild * Moderate * Severe * Other/Unknown <Amanda Anderson RN - Last Filed: 03/30/24 06:53> Clarified Diagnosis Clarified Diagnosis: severe protein calorie malnutrition <Kavita Nogueira PA-C - Last Filed: 03/30/24 08:17>
--- NOTE | 2024-03-30 08:17 | P.PNIM_ITS ---
Progress Note: A&P Assessment and Plan (1) Fluid overload: Qualifiers: Hypervolemia type: unspecified Qualified Code(s): E87.70 - Fluid overload, unspecified Code(s): E87.70 - Fluid overload, unspecified Status: Acute Assessment and Plan: Patient has missed two peritoneal dialysis appointments on 03/26 weakness. BUN/Cr 56/15.49 on admission. - BUN/Cr 59/16.37 on am labs - BNP: 5670 - Chest XR: Peribronchial thickening with mild pulmonary vascular congestion, without focal infiltrate or effusion. - Resume torsemide 100 mg daily - Monitor I/O and daily weights - Nephrology consulted, appreciate recommendations (2) End-stage renal disease on peritoneal dialysis: Code(s): N18.6 - End stage renal disease; Z99.2 - Dependence on renal dialysis Status: Acute Assessment and Plan: End-stage renal disease on peritoneal dialysis PD schedule per psych sales specialist patient also is on torsemide, will continue (3) Elevated troponin: Code(s): R79.89 - Other specified abnormal findings of blood chemistry Status: Acute Assessment and Plan: Troponin 0.048, repeat 0.049. Remains flat. Likely secondary to volume overload causing demand ischemia. Patient denying chest pain and palpitations. - EKG sinus tachycardia - Echo 10/09/23: LVEF 55-60% with grade I diastolic dysfunction - Monitor (4) Multiple falls: Code(s): R29.6 - Repeated falls Status: Acute Assessment and Plan: 2 falls where he becomes lightheaded after standing up from his chair. He then goes to walk and his legs give out on him resulting in him falling to the floor. He denies any loss of consciousness and hitting his head. He also denies any tingling/numbness, shooting pain to the lower extremities or loss of bowel/bladder since the fall. Patient is not on any anticoagulation. - Orthostatic blood pressures q shift: Negative - Head CT 1. 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 2. Stable moderate nonspecific cerebral white matter disease, which likely represents chronic small vessel ischemic disease. - C/T/L spine CT: No fracture. Severe cervical spine spondylosis. Moderate thoracic/lumbar spondylosis. - PT/OT (5) HTN (hypertension): Code(s): I10 - Essential (primary) hypertension Status: Chronic Assessment and Plan: Chronic - Currently holding labetalol 100 mg BID as patient has been borderline hypotensive - Continue to monitor and resume as appropriate (6) Severe protein-calorie malnutrition: Code(s): E43 - Unspecified severe protein-calorie malnutrition Status: Acute Assessment and Plan: Supplement per nutrition Time Spent With Patient Time with patient: 25 - 35 minutes Subjective Date/time seen: 03/30/24 08:17 Interval history: 54 year old male with past medical history of ESRD on peritoneal dialysis, hypertension, and polyneuropathy presents to the hospital for nausea/vomiting, weakness and multiple falls. Patient is pleasant sitting up in his chair. He states that he is feeling much better today and denies any chest pain, shortness a breath, palpitations, nausea /vomiting, and abdominal pain. PT/OT to evaluate patient for further discharge planning given his multiple falls. Review of Systems Review of Systems: All systems reviewed & are unremarkable except as noted in HPI and below Exam Narrative: AF HR 55 RR 18 SpO2 93 BP 122/91 General: male in no acute respiratory distress who is nontoxic appearing, sitting up in chair HEENT: Normocephalic. Atraumatic. Extraocular movement intact. Sclera clear and anicteric. No facial asymmetry. Chest: Lungs are clear to auscultation bilaterally. No wheezes or crackles. CV: Heart was regular rate and rhythm. S1/S2. No murmurs, gallops, or rubs. Abd: Abdomen was soft. Nontender. Nondistended. Positive bowel sounds. PD site is nonconcerning for infection. Ext: No clubbing, cyanosis, or edema. 1+ DP pulses bilaterally. Neuro: Patient is alert and oriented x4.Speech is clear. Objective Data Vital Signs Vital Signs: Vital Signs - 24 hr 03/29/24 08:50 03/29/24 16:00 03/29/24 20:00 Temperature 97.7 F Pulse Rate 100 Respiratory Rate 18 Blood Pressure 122/78 Pulse Oximetry 94 Oxygen Delivery Room Air Room Air 03/29/24 22:08 03/29/24 22:10 03/29/24 22:15 Temperature 98.5 F 98.5 F 98.5 F Pulse Rate 111 H 85 109 H Respiratory Rate 18 18 18 Blood Pressure 88/65 L 119/96 H 120/80 Pulse Oximetry 98 98 99 Oxygen Delivery 03/30/24 00:00 03/30/24 07:20 Temperature 98.7 F 98.7 F Pulse Rate 107 H 107 H Respiratory Rate 18 18 Blood Pressure 115/60 115/66 Pulse Oximetry 91 Oxygen Delivery Intake/Output Intake/Output: Intake & Output 03/27/24 03/28/24 03/29/24 03/30/24 23:59 23:59 23:59 23:59 Intake Total 50 960 100 Output Total 0 1130 Balance 50 960 -1030 Meds/Results Medications: Active Medications Generic Name Dose Route Start Last Admin Trade Name Freq PRN Reason Stop Dose Admin Acetaminophen 650 mg 03/29/24 07:25 03/29/24 10:39 Acetaminophen 325 Mg Tablet PO 650 mg Q4H PRN Administration Mild Pain (1-3) or Fever Buspirone HCl 10 mg 03/29/24 09:00 03/29/24 17:05 Buspirone Hcl 10 Mg Tablet PO 10 mg TID CARIDAD Administration Calcium Acetate 2,668 mg 03/29/24 08:00 03/29/24 17:05 Calcium Acetate 667 Mg Tablet PO 2,668 mg TIDWM CARIDAD Administration Calcium Carbonate 200 mg 03/29/24 07:14 Calcium Carbonate (Tums) 500 Mg (200 Mg Elemental) PO HS PRN Indigestion Cinacalcet 90 mg 03/29/24 09:00 03/29/24 08:49 Cinacalcet 30 Mg Tablet PO 90 mg DAILY CARIDAD Administration Dextrose 12.5 gm 03/29/24 07:25 Dextrose 50% 25 Gm/50 Ml Syringe IV PUSH PRN PRN Hypoglycemia Protocol Enoxaparin Sodium 30 mg 03/30/24 09:00 Enoxaparin 30 Mg/0.3 Ml Syringe SUB-Q DAILY CARIDAD Escitalopram Oxalate 10 mg 03/29/24 09:00 03/29/24 08:50 Escitalopram Oxalate 10 Mg Tablet PO 10 mg DAILY CARIDAD Administration Gabapentin 300 mg 03/29/24 09:00 03/29/24 17:05 Gabapentin 300 Mg Capsule PO 300 mg TID CARIDAD Administration Glucagon 1 mg 03/29/24 07:25 Glucagon For Inj 1 Mg Vial IM PRN PRN Hypoglycemia Protocol Glucose 15 gm 03/29/24 07:25 Glucose Oral Gel 15 Gm Of Glucse In 37.5 Gm Tube PO PRN PRN Hypoglycemia Protocol Dextrose 1,000 mls @ 100 mls/hr 03/29/24 07:25 Dextrose 5% 1,000 Ml IVPB PRN PRN Hypoglycemia Protocol Miscellaneous Information 1 each 03/29/24 00:01 Ferric Citrate [Auryxia] 210 Mg Iron Tablet Is Nonformulary. Can He Use Home Supply? XX 04/28/24 00:00 CLARIFY CARIDAD Non-Formulary Medication 210 mg 03/29/24 08:00 Ferric Citrate [Auryxia] PO 04/28/24 07:59 TIDWM CARIDAD Nortriptyline HCl 50 mg 03/29/24 21:00 03/29/24 20:58 Nortriptyline Hcl 25 Mg Capsule PO 50 mg HS CARIDAD Administration Ondansetron HCl 4 mg 03/29/24 00:21 03/29/24 21:01 Ondansetron Inj 4 Mg/2 Ml Vial IV PUSH 4 mg Q4H PRN Administration Nausea Pantoprazole Sodium 40 mg 03/29/24 09:00 03/29/24 08:50 Pantoprazole 40 Mg Tablet PO 40 mg QAM CARIDAD Administration Potassium Chloride 40 meq 03/29/24 09:00 03/29/24 08:58 Potassium Chloride 20 Meq Er Tablet PO Not Given DAILY CARIDAD Potassium Chloride 40 meq 03/30/24 12:38 Potassium Chloride 20 Meq Er Tablet PO 03/30/24 12:39 ONCE ONE Torsemide 100 mg 03/29/24 09:00 03/29/24 08:49 Torsemide 20 Mg Tablet PO 100 mg QAM CARIDAD Administration Radiology Results: ITS Impressions Chest X-Ray 03/28/24 17:33 IMPRESSION: Peribronchial thickening with mild pulmonary vascular congestion, without focal infiltrate or effusion. Abdomen/Pelvis CT 03/28/24 21:54 IMPRESSION: No acute intra-abdominal pathology. Innumerable nonacute findings, as detailed above. Head CT 03/29/24 14:57 IMPRESSION: 1. 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 2. Stable moderate nonspecific cerebral white matter disease, which likely represents chronic small vessel ischemic disease. Cervical Spine CT 03/29/24 15:03 IMPRESSION: 1. No fracture 2. Severe cervical spondylosis. Thoracic/Lumbar Spine CT 03/29/24 15:07 IMPRESSION: 1. No fracture. 2. Moderate thoracic and lumbar spondylosis. Labs Labs: Laboratory Results - last 24 hr 02/07/1603/29/24 03/29/24 08:09 12:00 16:47 WBC RBC Hgb Hct MCV MCH MCHC RDW Plt Count MPV Immature Gran % (Auto) Neut % (Auto) Lymph % (Auto) [place] % (Auto) Eos % (Auto) Baso % (Auto) Lymph # (Auto) [place] # (Auto) Eos # (Auto) Baso # (Auto) Abs Immat Gran (auto) Absolute Neuts (auto) Absolute Nucleated RBC Nucleated RBC % Sodium Potassium Chloride Carbon Dioxide Anion Gap BUN Creatinine Estim Creat Clear Calc Estimated GFR Glucose POC Capillary Glucose 103 99 95 Calcium Total Bilirubin AST ALT Alkaline Phosphatase Total Protein Albumin 03/29/24 03/30/24 21:19 05:03 WBC 11.1 H RBC 3.85 L Hgb 12.2 L Hct 37.1 L MCV 96.4 MCH 31.7 MCHC 32.9 RDW 13.2 Plt Count 370 MPV 9.4 Immature Gran % (Auto) 0.4 Neut % (Auto) 64.8 Lymph % (Auto) 17.6 L [place] % (Auto) 12.7 H Eos % (Auto) 4.0 Baso % (Auto) 0.5 Lymph # (Auto) 1.96 [place] # (Auto) 1.4 H Eos # (Auto) 0.4 H Baso # (Auto) 0.1 Abs Immat Gran (auto) 0.04 H Absolute Neuts (auto) 7.2 H Absolute Nucleated RBC 0.000 Nucleated RBC % 0.0 Sodium 134 L Potassium 2.8 L* Chloride 91 L Carbon Dioxide 22 Anion Gap 21 H BUN 59 H Creatinine 16.37 H Estim Creat Clear Calc 6 Estimated GFR 3 L Glucose 117 H POC Capillary Glucose 132 H Calcium 8.2 L Total Bilirubin 0.6 AST 18 ALT 25 Alkaline Phosphatase 131 H Total Protein 6.0 L Albumin 3.4 L Quality VTE Prophylaxis VTE prophylaxis: pharmacologic ordered
[2024-03-30] MEDS: CALCIUM ACETATE 667 MG TABLET 2668 MG PO ×3 (08:52→17:45)
[2024-03-30] MEDS: GABAPENTIN 300 MG CAPSULE PO ×3 (08:52→17:44)
[2024-03-30] MEDS: ESCITALOPRAM OXALATE 10 MG TABLET PO (08:53)
[2024-03-30] MEDS: busPIRone HCL 10 MG TABLET PO ×3 (08:53→17:44)
[2024-03-30] MEDS: TORSEMIDE 20 MG TABLET 100 MG PO (08:53)
[2024-03-30] MEDS: CINACALCET 30 MG TABLET 90 MG PO (08:53)
[2024-03-30] MEDS: PANTOPRAZOLE 40 MG TABLET PO (08:53)
[2024-03-30] MEDS: POTASSIUM CHLORIDE 20 MEQ ER TABLET 40 MEQ PO ×2 (08:54→12:33)
[2024-03-30] MEDS: ENOXAPARIN 30 MG/0.3 ML SYRINGE SUB-Q (08:54)
[2024-03-30] MEDS: ONDANSETRON INJ 4 MG/2 ML VIAL IV PUSH (09:08)
[2024-03-30 11:59] LABS: Glucose Point of Care 118 mg/dl (65-105)
--- NOTE | 2024-03-30 13:06 | P.PNNP_ITS ---
Progress Note: A&P Assessment and Plan (1) End stage renal disease: Code(s): N18.6 - End stage renal disease Status: Chronic Assessment and Plan: * continue nightly CCPD * adjust PD Rx as needed * follow electrolytes, volume status, and clearance * replete electrolytes as needed (2) Multiple falls: Code(s): R29.6 - Repeated falls Status: Acute Assessment and Plan: * suspect multifactorial: * deconditioning from recent hospitalization * hypotension * continued use of BP medications in the context of relative hypotension * possible autonomic neuropathy(?) * other(?) * CT of head without acute findings: * 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 * stable moderate nonspecific cerebral white matter disease, which likely represents chronic small vessel ischemic disease * holding BP medications * follow orthostatic BP * PT/OT as tolerated (3) Fluid overload: Qualifiers: Hypervolemia type: unspecified Qualified Code(s): E87.70 - Fluid overload, unspecified Code(s): E87.70 - Fluid overload, unspecified Status: Acute Assessment and Plan: * known history as noted by recent hospitalization (February 2024) * s/p aggressive PD treatments on last hospitalization with significant ultrafiltration * 8.2L negative by the time of discharge * admission CXR noted: * peribronchial thickening with mild pulmonary vascular congestion without focal infiltrate or effusion * continue fluid removal with PD to optimize volume status * also on torsemide (since has some residual kidney function and makes urine) * follow daily weights and I/Os (4) Hypokalemia: Code(s): E87.6 - Hypokalemia Status: Acute Assessment and Plan: * due to PD and torsemide * on scheduled potassium supplementation * PRN dosing as needed * follow trend of K+ level (5) HTN (hypertension): Code(s): I10 - Essential (primary) hypertension Status: Chronic Assessment and Plan: * reasonable control at this time * BP running lower than baseline * lower BPs contributing to #2 (?) * follow trend of hemodynamics (6) Anemia: Code(s): D64.9 - Anemia, unspecified Status: Acute Assessment and Plan: * H/H supratherapeutic for ESRD * holding Epogen * follow trend of H/H (7) Generalized weakness: Code(s): R53.1 - Weakness Status: Acute Assessment and Plan: * suspect related to recent hospitalization/deconditioning in association with prior influenza infection * PT/OT as tolerated Will continue to follow. L Subjective Date/time seen: 03/30/24 13:06 Interval history: Follow-up for end stage renal disease on peritoneal dialysis. Tolerated peritoneal dialysis treatment overnight without any issues or problems (CCPD supervised and seen at 12:55PM); states he feels better today in comparison to admission; no events overnight or earlier this morning. Exam 2 Narrative: General: WD/WN male (who appears older than stated age) in NAD Heart: normal S1 and S2; no rub Lungs: clear anteriorly Abdomen: soft, nontender, nondistended, positive bowel sounds Extremities: no cyanosis or clubbing; trace edema Skin: warm and dry Objective Data Vital Signs Vital Signs: Vital Signs Temp Pulse Resp BP Pulse Ox O2 Del Method 03/30/24 13:00 97.7 F 94 18 93/59 L 99 03/30/24 11:30 55 L 122/91 H 03/30/24 11:30 111 H 03/30/24 11:29 103 H 115/67 03/30/24 08:50 Room Air 03/30/24 08:00 98.1 F 102 H 18 103/72 93 03/30/24 07:20 98.7 F 107 H 18 115/66 03/30/24 00:00 98.7 F 107 H 18 115/60 91 03/29/24 22:15 98.5 F 109 H 18 120/80 99 03/29/24 22:10 98.5 F 85 18 119/96 H 98 03/29/24 22:08 98.5 F 111 H 18 88/65 L 98 03/29/24 20:00 Room Air Intake/Output Intake/Output: Intake & Output 03/27/24 03/28/24 03/29/24 03/30/24 23:59 23:59 23:59 23:59 Intake Total 50 960 1060 Output Total 0 1130 Balance 50 960 -70 Meds/Results Medications: Active Medications Generic Name Dose Route Start Last Admin Trade Name Freq PRN Reason Stop Dose Admin Acetaminophen 650 mg 03/29/24 07:25 03/29/24 10:39 Acetaminophen 325 Mg Tablet PO 650 mg Q4H PRN Administration Mild Pain (1-3) or Fever Hydrocodone Bitart/Acetaminophen 1 tab 03/30/24 12:41 03/30/24 15:12 Hydrocodone/Acetaminophen (*Crx) 5-325 Mg Tablet PO 1 tab Q8H PRN Administration Pain Rated 6 or Greater Buspirone HCl 10 mg 03/29/24 09:00 03/30/24 17:44 Buspirone Hcl 10 Mg Tablet PO 10 mg TID CARIDAD Administration Calcium Acetate 2,668 mg 03/29/24 08:00 03/30/24 17:45 Calcium Acetate 667 Mg Tablet PO 2,668 mg TIDWM CARIDAD Administration Calcium Carbonate 200 mg 03/29/24 07:14 Calcium Carbonate (Tums) 500 Mg (200 Mg Elemental) PO HS PRN Indigestion Cinacalcet 90 mg 03/29/24 09:00 03/30/24 08:53 Cinacalcet 30 Mg Tablet PO 90 mg DAILY CARIDAD Administration Dextrose 12.5 gm 03/29/24 07:25 Dextrose 50% 25 Gm/50 Ml Syringe IV PUSH PRN PRN Hypoglycemia Protocol Enoxaparin Sodium 30 mg 03/30/24 09:00 03/30/24 08:54 Enoxaparin 30 Mg/0.3 Ml Syringe SUB-Q 30 mg DAILY CARIDAD Administration Escitalopram Oxalate 10 mg 03/29/24 09:00 03/30/24 08:53 Escitalopram Oxalate 10 Mg Tablet PO 10 mg DAILY CARIDAD Administration Gabapentin 300 mg 03/29/24 09:00 03/30/24 17:44 Gabapentin 300 Mg Capsule PO 300 mg TID CARIDAD Administration Glucagon 1 mg 03/29/24 07:25 Glucagon For Inj 1 Mg Vial IM PRN PRN Hypoglycemia Protocol Glucose 15 gm 03/29/24 07:25 Glucose Oral Gel 15 Gm Of Glucse In 37.5 Gm Tube PO PRN PRN Hypoglycemia Protocol Dextrose 1,000 mls @ 100 mls/hr 03/29/24 07:25 Dextrose 5% 1,000 Ml IVPB PRN PRN Hypoglycemia Protocol Miscellaneous Information 1 each 03/29/24 00:01 Ferric Citrate [Auryxia] 210 Mg Iron Tablet Is Nonformulary. Can He Use Home Supply? XX 04/28/24 00:00 CLARIFY CARIDAD Non-Formulary Medication 210 mg 03/29/24 08:00 Ferric Citrate [Auryxia] PO 04/28/24 07:59 TIDWM CARIDAD Nortriptyline HCl 50 mg 03/29/24 21:00 03/29/24 20:58 Nortriptyline Hcl 25 Mg Capsule PO 50 mg HS CARIDAD Administration Ondansetron HCl 4 mg 03/29/24 00:21 03/30/24 09:08 Ondansetron Inj 4 Mg/2 Ml Vial IV PUSH 4 mg Q4H PRN Administration Nausea Pantoprazole Sodium 40 mg 03/29/24 09:00 03/30/24 08:53 Pantoprazole 40 Mg Tablet PO 40 mg QAM CARIDAD Administration Potassium Chloride 40 meq 03/29/24 09:00 03/30/24 08:54 Potassium Chloride 20 Meq Er Tablet PO 40 meq DAILY CARIDAD Administration Torsemide 100 mg 03/29/24 09:00 03/30/24 08:53 Torsemide 20 Mg Tablet PO 100 mg QAM CARIDAD Administration Radiology Results: ITS Impressions Chest X-Ray 03/28/24 17:33 IMPRESSION: Peribronchial thickening with mild pulmonary vascular congestion, without focal infiltrate or effusion. Abdomen/Pelvis CT 03/28/24 21:54 IMPRESSION: No acute intra-abdominal pathology. Innumerable nonacute findings, as detailed above. Head CT 03/29/24 14:57 IMPRESSION: 1. 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 2. Stable moderate nonspecific cerebral white matter disease, which likely represents chronic small vessel ischemic disease. Cervical Spine CT 03/29/24 15:03 IMPRESSION: 1. No fracture 2. Severe cervical spondylosis. Thoracic/Lumbar Spine CT 03/29/24 15:07 IMPRESSION: 1. No fracture. 2. Moderate thoracic and lumbar spondylosis. Labs Labs: Laboratory Tests 03/30/24 05:03 03/30/24 05:03 Calcium 8.2 L Total Bilirubin 0.6 AST 18 ALT 25 Alkaline Phosphatase 131 H Total Protein 6.0 L Albumin 3.4 L
[2024-03-30] MEDS: HYDROcodone/acetaminophen (*CRX) 5-325 MG TABLET 1 TAB PO ×2 (15:12→23:09)
[2024-03-30 17:19] LABS: Glucose Point of Care 123 mg/dl (65-105)
[2024-03-30] MEDS: NORTRIPTYLINE HCL 25 MG CAPSULE 50 MG PO (20:47)
[2024-03-30] MEDS: POTASSIUM CHLORIDE 20 MEQ ER TABLET PO (20:48)
[2024-03-30 21:13] LABS: Glucose Point of Care 104 mg/dl (65-105)
[2024-03-31] VITALS (9 sets, daily range): BP systolic 81–122; BP diastolic 55–88; PULSE 100–116; RESP 16–20; TEMP 36.6–36.8; O2SAT 93–99
[2024-03-31 06:08] LABS: Basophils Absolute Auto 0.1 K/mm3 (0.0-0.1); Basophils Percent Auto 1.1 % (0.2-1.2); Eosinophils Absolute Auto 0.6 K/mm3 (0-0.3); Eosinophils Percent Auto 5.7 % (0-4.4); Hematocrit 37.5 % (42.0-52.0); Hemoglobin 12.1 g/dL (14.0-18.0); Immature Granulocyte Absolute 0.04 K/mm3 (0.00-0.031); Immature Granulocyte Percent A 0.4 % (0-0.5); Lymphocytes Absolute Auto 2.21 K/mm3 (0.9-3.2); Lymphocytes Percent Auto 23.1 % (18.3-44.2); Mean Corpuscular HGB Conc 32.3 g/dl (32-36); Mean Corpuscular Hemoglobin 31.9 pg (26-34); Mean Corpuscular Volume 98.9 fl (80-100); Mean Platelet Volume 9.2 fl (7.4-10.4); Monocytes Absolute Auto 1.2 K/mm3 (0.1-0.6); Monocytes Percent Auto 12.4 % (2.6-8.5); Neutrophils Absolute Auto 5.5 K/mm3 (1.3-6.7); Neutrophils Percent Auto 57.3 % (45.5-73.1); Platelet Count Result 353 k/mm3 (150-375); Red Blood Count 3.79 M/mm3 (4.6-6.20); Red Cell Distribution Width 13.3 % (11.5-14.5); White Blood Count 9.6 K/mm3 (4.5-10.0)
[2024-03-31 06:32] LABS: Alanine Aminotransferase 23 U/L (6-50); Albumin Level 3.3 g/dL (3.5-5.1); Alkaline Phosphatase 122 U/L (38-126); Anion Gap 18 mmol/L (4-12); Aspartate Amino Transferase 17 U/L (17-59); Bilirubin,Total 0.5 mg/dL (0.2-1.3); Blood Urea Nitrogen 56 mg/dL (9-20); Calcium 8.1 mg/dL (8.4-10.2); Carbon Dioxide 22 mmol/L (22-30); Chloride 94 mmol/L (98-107); Glucose 100 mg/dL (65-110); Magnesium 1.7 mg/dL (1.6-2.3); Phosphorus 9.5 mg/dL (2.5-4.5); Potassium 3.3 mmol/L (3.4-5.0); Sodium 134 mmol/L (137-145)
[2024-03-31 06:36] LABS: Estimated CRCL calculation 6 ml/min; Estimated Glomerular Filt Rate 3
--- NOTE | 2024-03-31 07:51 | P.PNIM_ITS ---
Progress Note: A&P Assessment and Plan (1) Fluid overload: Qualifiers: Hypervolemia type: unspecified Qualified Code(s): E87.70 - Fluid overload, unspecified Code(s): E87.70 - Fluid overload, unspecified Status: Acute Assessment and Plan: Patient has missed two peritoneal dialysis appointments on 03/26 weakness. BUN/Cr 56/15.49 on admission. - BUN/Cr 56/15.88 on am labs - BNP: 5670 - Chest XR: Peribronchial thickening with mild pulmonary vascular congestion, without focal infiltrate or effusion. - Resume torsemide 100 mg daily - Monitor I/O and daily weights - Nephrology consulted, appreciate recommendations (2) Orthostatic hypotension: Code(s): I95.1 - Orthostatic hypotension Status: Acute Assessment and Plan: Orthostatics positive. Patient endorsing dizziness/lightheadedness with position change. Notes that this often occurs prior to his falling. - Continue orthostatic blood pressures q shift - Started on midodrine 5 mg TID - Monitor (3) End-stage renal disease on peritoneal dialysis: Code(s): N18.6 - End stage renal disease; Z99.2 - Dependence on renal dialysis Status: Acute Assessment and Plan: End-stage renal disease on peritoneal dialysis PD schedule per manager analytical patient also is on torsemide, will continue (4) Elevated troponin: Code(s): R79.89 - Other specified abnormal findings of blood chemistry Status: Acute Assessment and Plan: Troponin 0.048, repeat 0.049. Remains flat. Likely secondary to volume overload causing demand ischemia. Patient denying chest pain and palpitations. - EKG sinus tachycardia - Echo 10/09/23: LVEF 55-60% with grade I diastolic dysfunction - Monitor (5) Multiple falls: Code(s): R29.6 - Repeated falls Status: Acute Assessment and Plan: 2 falls where he becomes lightheaded after standing up from his chair. He then goes to walk and his legs give out on him resulting in him falling to the floor. He denies any loss of consciousness and hitting his head. He also denies any tingling/numbness, shooting pain to the lower extremities or loss of bowel/bladder since the fall. Patient is not on any anticoagulation. - Orthostatic blood pressures q shift: Negative - Head CT 1. 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 2. Stable moderate nonspecific cerebral white matter disease, which likely represents chronic small vessel ischemic disease. - C/T/L spine CT: No fracture. Severe cervical spine spondylosis. Moderate thoracic/lumbar spondylosis. - PT/OT (6) HTN (hypertension): Code(s): I10 - Essential (primary) hypertension Status: Chronic Assessment and Plan: Chronic - Currently holding labetalol 100 mg BID as patient has been borderline hypotensive - Continue to monitor and resume as appropriate (7) Severe protein-calorie malnutrition: Code(s): E43 - Unspecified severe protein-calorie malnutrition Status: Acute Assessment and Plan: Supplement per nutrition Subjective Date/time seen: 03/31/24 07:51 Interval history: 54 year old male with past medical history of ESRD on peritoneal dialysis, hypertension, and polyneuropathy presents to the hospital for nausea/vomiting, weakness and multiple falls. Patient is pleasant sitting up in his chair. He states that he is feeling better each day. He notes that he did get lightheaded when ambulating to the rest room today immediately after standing. He states he was able to rest and this quickly resolved. Patients orthostatic blood pressures were positive today. He has no complaints at this time denying chest pain, shortness of breath, palpitations, nausea/vomiting and abdominal pain. Review of Systems Review of Systems: All systems reviewed & are unremarkable except as noted in HPI and below Exam Narrative: AF HR 101 RR 16 Spo2 94 BP 97/64 General: male in no acute respiratory distress who is nontoxic appearing, sitting up in chair HEENT: Normocephalic. Atraumatic. Extraocular movement intact. Sclera clear and anicteric. No facial asymmetry. Chest: Lungs are clear to auscultation bilaterally. No wheezes or crackles. CV: Heart was regular rate and rhythm. S1/S2. No murmurs, gallops, or rubs. Abd: Abdomen was soft. Nontender. Nondistended. Positive bowel sounds. PD site is nonconcerning for infection. Ext: No clubbing, cyanosis, or edema. 1+ DP pulses bilaterally. Neuro: Patient is alert and oriented x4.Speech is clear. Objective Data Vital Signs Vital Signs: Vital Signs - 24 hr 03/30/24 08:00 03/30/24 08:50 03/30/24 11:29 Temperature 98.1 F Pulse Rate 102 H 103 H Respiratory Rate 18 Blood Pressure 103/72 115/67 Pulse Oximetry 93 Oxygen Delivery Room Air 03/30/24 11:30 03/30/24 11:30 03/30/24 14:46 Temperature 97.7 F Pulse Rate 111 H 55 L 94 Respiratory Rate 18 Blood Pressure 122/91 H 93/59 L Pulse Oximetry 99 Oxygen Delivery 03/30/24 19:48 03/30/24 19:55 03/30/24 19:56 Temperature 97.8 F 97.8 F 97.8 F Pulse Rate 76 108 H 108 H Respiratory Rate 20 20 Blood Pressure 120/71 97/71 L 138/122 H Pulse Oximetry 20 L 100 100 Oxygen Delivery 03/30/24 19:57 03/30/24 20:00 03/31/24 03:40 Temperature 97.8 F 98.0 F Pulse Rate 76 104 H Respiratory Rate 20 20 Blood Pressure 120/71 100/66 Pulse Oximetry 99 93 Oxygen Delivery Room Air Intake/Output Intake/Output: Intake & Output 03/28/24 03/29/24 03/30/24 03/31/24 23:59 23:59 23:59 23:59 Intake Total 50 960 1300 290 Output Total 0 1130 Balance 50 960 170 290 Meds/Results Medications: Active Medications Generic Name Dose Route Start Last Admin Trade Name Freq PRN Reason Stop Dose Admin Acetaminophen 650 mg 03/29/24 07:25 03/29/24 10:39 Acetaminophen 325 Mg Tablet PO 650 mg Q4H PRN Administration Mild Pain (1-3) or Fever Hydrocodone Bitart/Acetaminophen 1 tab 03/30/24 12:41 03/30/24 23:09 Hydrocodone/Acetaminophen (*Crx) 5-325 Mg Tablet PO 1 tab Q8H PRN Administration Pain Rated 6 or Greater Buspirone HCl 10 mg 03/29/24 09:00 03/30/24 17:44 Buspirone Hcl 10 Mg Tablet PO 10 mg TID CARIDAD Administration Calcium Acetate 2,668 mg 03/29/24 08:00 03/30/24 17:45 Calcium Acetate 667 Mg Tablet PO 2,668 mg TIDWM CARIDAD Administration Calcium Carbonate 200 mg 03/29/24 07:14 Calcium Carbonate (Tums) 500 Mg (200 Mg Elemental) PO HS PRN Indigestion Cinacalcet 90 mg 03/29/24 09:00 03/30/24 08:53 Cinacalcet 30 Mg Tablet PO 90 mg DAILY CARIDAD Administration Dextrose 12.5 gm 03/29/24 07:25 Dextrose 50% 25 Gm/50 Ml Syringe IV PUSH PRN PRN Hypoglycemia Protocol Enoxaparin Sodium 30 mg 03/30/24 09:00 03/30/24 08:54 Enoxaparin 30 Mg/0.3 Ml Syringe SUB-Q 30 mg DAILY CARIDAD Administration Escitalopram Oxalate 10 mg 03/29/24 09:00 03/30/24 08:53 Escitalopram Oxalate 10 Mg Tablet PO 10 mg DAILY CARIDAD Administration Gabapentin 300 mg 03/29/24 09:00 03/30/24 17:44 Gabapentin 300 Mg Capsule PO 300 mg TID CARIDAD Administration Glucagon 1 mg 03/29/24 07:25 Glucagon For Inj 1 Mg Vial IM PRN PRN Hypoglycemia Protocol Glucose 15 gm 03/29/24 07:25 Glucose Oral Gel 15 Gm Of Glucse In 37.5 Gm Tube PO PRN PRN Hypoglycemia Protocol Dextrose 1,000 mls @ 100 mls/hr 03/29/24 07:25 Dextrose 5% 1,000 Ml IVPB PRN PRN Hypoglycemia Protocol Miscellaneous Information 1 each 03/29/24 00:01 Ferric Citrate [Auryxia] 210 Mg Iron Tablet Is Nonformulary. Can He Use Home Supply? XX 04/28/24 00:00 CLARIFY CARIDAD Non-Formulary Medication 210 mg 03/29/24 08:00 Ferric Citrate [Auryxia] PO 04/28/24 07:59 TIDWM CARIDAD Nortriptyline HCl 50 mg 03/29/24 21:00 03/30/24 20:47 Nortriptyline Hcl 25 Mg Capsule PO 50 mg HS CARIDAD Administration Ondansetron HCl 4 mg 03/29/24 00:21 03/30/24 09:08 Ondansetron Inj 4 Mg/2 Ml Vial IV PUSH 4 mg Q4H PRN Administration Nausea Pantoprazole Sodium 40 mg 03/29/24 09:00 03/30/24 08:53 Pantoprazole 40 Mg Tablet PO 40 mg QAM CARIDAD Administration Potassium Chloride 40 meq 03/29/24 09:00 03/30/24 08:54 Potassium Chloride 20 Meq Er Tablet PO 40 meq DAILY CARIDAD Administration Potassium Chloride 40 meq 03/31/24 12:00 Potassium Chloride 20 Meq Er Tablet PO 03/31/24 12:01 ONCE ONE Torsemide 100 mg 03/29/24 09:00 03/30/24 08:53 Torsemide 20 Mg Tablet PO 100 mg QAM CARIDAD Administration Radiology Results: ITS Impressions Chest X-Ray 03/28/24 17:33 IMPRESSION: Peribronchial thickening with mild pulmonary vascular congestion, without focal infiltrate or effusion. Abdomen/Pelvis CT 03/28/24 21:54 IMPRESSION: No acute intra-abdominal pathology. Innumerable nonacute findings, as detailed above. Head CT 03/29/24 14:57 IMPRESSION: 1. 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 2. Stable moderate nonspecific cerebral white matter disease, which likely represents chronic small vessel ischemic disease. Cervical Spine CT 03/29/24 15:03 IMPRESSION: 1. No fracture 2. Severe cervical spondylosis. Thoracic/Lumbar Spine CT 03/29/24 15:07 IMPRESSION: 1. No fracture. 2. Moderate thoracic and lumbar spondylosis. Labs Labs: Laboratory Results - last 24 hr 03/30/24 03/30/24 03/30/24 11:45 17:15 19:59 WBC RBC Hgb Hct MCV MCH MCHC RDW Plt Count MPV Immature Gran % (Auto) Neut % (Auto) Lymph % (Auto) [place] % (Auto) Eos % (Auto) Baso % (Auto) Lymph # (Auto) [place] # (Auto) Eos # (Auto) Baso # (Auto) Abs Immat Gran (auto) Absolute Neuts (auto) Absolute Nucleated RBC Nucleated RBC % Sodium Potassium Chloride Carbon Dioxide Anion Gap BUN Creatinine Estim Creat Clear Calc Estimated GFR Glucose POC Capillary Glucose 118 H 123 H 104 Calcium Phosphorus Magnesium Total Bilirubin AST ALT Alkaline Phosphatase Total Protein Albumin 03/31/24 05:54 WBC 9.6 RBC 3.79 L Hgb 12.1 L Hct 37.5 L MCV 98.9 MCH 31.9 MCHC 32.3 RDW 13.3 Plt Count 353 MPV 9.2 Immature Gran % (Auto) 0.4 Neut % (Auto) 57.3 Lymph % (Auto) 23.1 [place] % (Auto) 12.4 H Eos % (Auto) 5.7 H Baso % (Auto) 1.1 Lymph # (Auto) 2.21 [place] # (Auto) 1.2 H Eos # (Auto) 0.6 H Baso # (Auto) 0.1 Abs Immat Gran (auto) 0.04 H Absolute Neuts (auto) 5.5 Absolute Nucleated RBC 0.000 Nucleated RBC % 0.0 Sodium 134 L Potassium 3.3 L Chloride 94 L Carbon Dioxide 22 Anion Gap 18 H BUN 56 H Creatinine 15.88 H Estim Creat Clear Calc 6 Estimated GFR 3 L Glucose 100 POC Capillary Glucose Calcium 8.1 L Phosphorus 9.5 H Magnesium 1.7 Total Bilirubin 0.5 AST 17 ALT 23 Alkaline Phosphatase 122 Total Protein 6.0 L Albumin 3.3 L Quality VTE Prophylaxis VTE prophylaxis: pharmacologic ordered
[2024-03-31] MEDS: CALCIUM ACETATE 667 MG TABLET 2668 MG PO ×3 (08:25→17:00)
[2024-03-31] MEDS: busPIRone HCL 10 MG TABLET PO ×3 (08:26→17:00)
[2024-03-31] MEDS: POTASSIUM CHLORIDE 20 MEQ ER TABLET 40 MEQ PO ×2 (08:26→12:13)
[2024-03-31] MEDS: PANTOPRAZOLE 40 MG TABLET PO (08:26)
[2024-03-31] MEDS: GABAPENTIN 300 MG CAPSULE PO ×3 (08:27→17:00)
[2024-03-31] MEDS: CINACALCET 30 MG TABLET 90 MG PO (08:27)
[2024-03-31] MEDS: ENOXAPARIN 30 MG/0.3 ML SYRINGE SUB-Q (08:27)
[2024-03-31] MEDS: ESCITALOPRAM OXALATE 10 MG TABLET PO (08:27)
[2024-03-31 11:50] LABS: Glucose Point of Care 148 mg/dl (65-105)
[2024-03-31 12:02] LABS: Glucose Point of Care 107 mg/dl (65-105)
[2024-03-31] MEDS: HYDROcodone/acetaminophen (*CRX) 5-325 MG TABLET 1 TAB PO ×2 (12:12→20:16)
--- NOTE | 2024-03-31 12:17 | P.PNNP_ITS ---
Progress Note: A&P Assessment and Plan (1) End stage renal disease: Code(s): N18.6 - End stage renal disease Status: Chronic Assessment and Plan: * continue nightly CCPD * adjust PD Rx as needed * follow electrolytes, volume status, and clearance * replete electrolytes as needed (2) Multiple falls: Code(s): R29.6 - Repeated falls Status: Acute Assessment and Plan: * suspect multifactorial: * deconditioning from recent hospitalization * orthostatic hypotension * continued use of BP medications in the context of relative hypotension * possible autonomic neuropathy(?) * other(?) * CT of head without acute findings: * 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 * stable moderate nonspecific cerebral white matter disease, which likely represents chronic small vessel ischemic disease * holding BP medications * follow orthostatic BP * PT/OT as tolerated (3) Orthostatic hypotension: Code(s): I95.1 - Orthostatic hypotension Status: Acute Assessment and Plan: * as noted by vital signs * trial of midodrine therapy * follow trend of hemodynamics and symptoms * consider trial of IVFs and holding torsemide (4) Fluid overload: Qualifiers: Hypervolemia type: unspecified Qualified Code(s): E87.70 - Fluid overload, unspecified Code(s): E87.70 - Fluid overload, unspecified Status: Acute Assessment and Plan: * known history as noted by recent hospitalization (February 2024) * s/p aggressive PD treatments on last hospitalization with significant ultrafiltration * 8.2L negative by the time of discharge * admission CXR noted: * peribronchial thickening with mild pulmonary vascular congestion without focal infiltrate or effusion * continue fluid removal with PD to optimize volume status * also on torsemide (since has some residual kidney function and makes urine) * follow daily weights and I/Os (5) Hypokalemia: Code(s): E87.6 - Hypokalemia Status: Acute Assessment and Plan: * due to PD and torsemide * on scheduled potassium supplementation * PRN dosing as needed * follow trend of K+ level (6) HTN (hypertension): Code(s): I10 - Essential (primary) hypertension Status: Chronic Assessment and Plan: * complicated by #3 * BP medications on hold * follow trend of hemodynamics (7) Anemia: Code(s): D64.9 - Anemia, unspecified Status: Acute Assessment and Plan: * H/H supratherapeutic for ESRD * holding Epogen * follow trend of H/H (8) Generalized weakness: Code(s): R53.1 - Weakness Status: Acute Assessment and Plan: * suspect related to recent hospitalization/deconditioning in association with prior influenza infection and orthostatic hypotension * PT/OT as tolerated Will continue to follow. L Subjective Date/time seen: 03/31/24 12:17 Interval history: Follow-up for end stage renal disease on peritoneal dialysis. Noted positive orthostatic blood pressure today in conjunction with complaints of dizziness/lightheadedness during positional change; midodrine therapy started and holding torsemide at this time; no other acute issues/complaints voiced at this time. Exam 2 Narrative: General: WD/WN male (who appears older than stated age) in NAD Heart: normal S1 and S2; no rub Lungs: clear anteriorly Abdomen: soft, nontender, nondistended, positive bowel sounds Extremities: no cyanosis or clubbing; trace edema Skin: warm and intact Objective Data Vital Signs Vital Signs: Vital Signs Temp Pulse Resp BP Pulse Ox O2 Del Method 03/31/24 12:07 98.2 F 101 H 16 97/64 L 94 Room Air 03/31/24 09:57 98.1 F 106 H 18 81/55 L 98 03/31/24 08:00 98.0 F 112 H 20 122/88 99 03/31/24 08:00 98.0 F 106 H 18 97/65 L 98 03/31/24 07:50 98.1 F 100 18 104/62 94 03/31/24 03:40 98.0 F 104 H 20 100/66 93 03/30/24 20:00 Room Air 03/30/24 19:57 97.8 F 76 20 120/71 99 03/30/24 19:56 97.8 F 108 H 20 138/122 H 100 03/30/24 19:55 97.8 F 108 H 20 97/71 L 100 03/30/24 19:48 97.8 F 76 120/71 20 L Intake/Output Intake/Output: Intake & Output 03/28/24 03/29/24 03/30/24 03/31/24 23:59 23:59 23:59 23:59 Intake Total 50 960 1300 1770 Output Total 0 1130 82 Balance 50 592 598 1788 Meds/Results Medications: Active Medications Generic Name Dose Route Start Last Admin Trade Name Freq PRN Reason Stop Dose Admin Acetaminophen 650 mg 03/29/24 07:25 03/29/24 10:39 Acetaminophen 325 Mg Tablet PO 650 mg Q4H PRN Administration Mild Pain (1-3) or Fever Hydrocodone Bitart/Acetaminophen 1 tab 03/30/24 12:41 03/31/24 12:12 Hydrocodone/Acetaminophen (*Crx) 5-325 Mg Tablet PO 1 tab Q8H PRN Administration Pain Rated 6 or Greater Buspirone HCl 10 mg 03/29/24 09:00 03/31/24 17:00 Buspirone Hcl 10 Mg Tablet PO 10 mg TID CARIDAD Administration Calcium Acetate 2,668 mg 03/29/24 08:00 03/31/24 17:00 Calcium Acetate 667 Mg Tablet PO 2,668 mg TIDWM CARIDAD Administration Calcium Carbonate 200 mg 03/29/24 07:14 Calcium Carbonate (Tums) 500 Mg (200 Mg Elemental) PO HS PRN Indigestion Cinacalcet 90 mg 03/29/24 09:00 03/31/24 08:27 Cinacalcet 30 Mg Tablet PO 90 mg DAILY CARIDAD Administration Dextrose 12.5 gm 03/29/24 07:25 Dextrose 50% 25 Gm/50 Ml Syringe IV PUSH PRN PRN Hypoglycemia Protocol Diphenoxylate HCl/Atropine 1 tablet 03/31/24 15:10 03/31/24 17:01 Diphenoxylate/Atropine (*Crx) 2.5 Mg Tablet PO 1 tablet QID PRN Administration diarrhea Enoxaparin Sodium 30 mg 03/30/24 09:00 03/31/24 08:27 Enoxaparin 30 Mg/0.3 Ml Syringe SUB-Q 30 mg DAILY CARIDAD Administration Escitalopram Oxalate 10 mg 03/29/24 09:00 03/31/24 08:27 Escitalopram Oxalate 10 Mg Tablet PO 10 mg DAILY CARIDAD Administration Gabapentin 300 mg 03/29/24 09:00 03/31/24 17:00 Gabapentin 300 Mg Capsule PO 300 mg TID CARIDAD Administration Gentamicin Sulfate 1 applic 03/31/24 15:10 Gentamicin Sulfate 0.1% Cr 15 Gm Tube TOPICAL TID PRN DIALYSIS CATH. Glucagon 1 mg 03/29/24 07:25 Glucagon For Inj 1 Mg Vial IM PRN PRN Hypoglycemia Protocol Glucose 15 gm 03/29/24 07:25 Glucose Oral Gel 15 Gm Of Glucse In 37.5 Gm Tube PO PRN PRN Hypoglycemia Protocol Dextrose 1,000 mls @ 100 mls/hr 03/29/24 07:25 Dextrose 5% 1,000 Ml IVPB PRN PRN Hypoglycemia Protocol Midodrine 5 mg 03/31/24 17:00 03/31/24 17:01 Midodrine Hcl 2.5 Mg Tablet PO 5 mg TID CARIDAD Administration Miscellaneous Information 1 each 03/29/24 00:01 Ferric Citrate [Auryxia] 210 Mg Iron Tablet Is Nonformulary. Can He Use Home Supply? XX 04/28/24 00:00 CLARIFY CARIDAD Non-Formulary Medication 210 mg 03/29/24 08:00 Ferric Citrate [Auryxia] PO 04/28/24 07:59 TIDWM CARIDAD Nortriptyline HCl 50 mg 03/29/24 21:00 03/30/24 20:47 Nortriptyline Hcl 25 Mg Capsule PO 50 mg HS CARIDAD Administration Ondansetron HCl 4 mg 03/29/24 00:21 03/30/24 09:08 Ondansetron Inj 4 Mg/2 Ml Vial IV PUSH 4 mg Q4H PRN Administration Nausea Pantoprazole Sodium 40 mg 03/29/24 09:00 03/31/24 08:26 Pantoprazole 40 Mg Tablet PO 40 mg QAM CARIDAD Administration Potassium Chloride 40 meq 03/29/24 09:00 03/31/24 08:26 Potassium Chloride 20 Meq Er Tablet PO 40 meq DAILY CARIDAD Administration Torsemide 100 mg 03/29/24 09:00 03/31/24 08:29 Torsemide 20 Mg Tablet PO Not Given QAM [facility] Radiology Results: ITS Impressions Chest X-Ray 03/28/24 17:33 IMPRESSION: Peribronchial thickening with mild pulmonary vascular congestion, without focal infiltrate or effusion. Abdomen/Pelvis CT 03/28/24 21:54 IMPRESSION: No acute intra-abdominal pathology. Innumerable nonacute findings, as detailed above. Head CT 03/29/24 14:57 IMPRESSION: 1. 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 2. Stable moderate nonspecific cerebral white matter disease, which likely represents chronic small vessel ischemic disease. Cervical Spine CT 03/29/24 15:03 IMPRESSION: 1. No fracture 2. Severe cervical spondylosis. Thoracic/Lumbar Spine CT 03/29/24 15:07 IMPRESSION: 1. No fracture. 2. Moderate thoracic and lumbar spondylosis. Labs Labs: Laboratory Tests 03/31/24 05:54 03/31/24 05:54 Calcium 8.1 L Phosphorus 9.5 H Magnesium 1.7 Total Bilirubin 0.5 AST 17 ALT 23 Alkaline Phosphatase 122 Total Protein 6.0 L Albumin 3.3 L
--- NOTE | 2024-03-31 15:51 | PC.NURSE ---
On 03/31/24, the student, Khang Freire, provided care and completed [facility] documentation on this patient. I have reviewed the student's documentation and agree with the findings.
[2024-03-31] MEDS: DIPHENOXYLATE/ATROPINE (*CRX) 2.5 MG TABLET 1 TABLET PO ×2 (17:01→20:16)
[2024-03-31] MEDS: MIDODRINE HCL 2.5 MG TABLET 5 MG PO (17:01)
[2024-03-31] MEDS: GENTAMICIN SULFATE 0.1% CR 15 GM TUBE 1 APPLIC TOPICAL (19:40)
[2024-03-31] MEDS: NORTRIPTYLINE HCL 25 MG CAPSULE 50 MG PO (20:16)
[2024-04-01] VITALS (9 sets, daily range): BP systolic 70–117; BP diastolic 50–85; PULSE 98–116; RESP 16–18; TEMP 36.2–36.4; O2SAT 95–98
[2024-04-01 05:38] LABS: Basophils Absolute Auto 0.1 K/mm3 (0.0-0.1); Basophils Percent Auto 0.8 % (0.2-1.2); Eosinophils Absolute Auto 0.8 K/mm3 (0-0.3); Eosinophils Percent Auto 8.8 % (0-4.4); Hematocrit 35.5 % (42.0-52.0); Hemoglobin 11.3 g/dL (14.0-18.0); Immature Granulocyte Absolute 0.02 K/mm3 (0.00-0.031); Immature Granulocyte Percent A 0.2 % (0-0.5); Lymphocytes Absolute Auto 2.09 K/mm3 (0.9-3.2); Lymphocytes Percent Auto 24.2 % (18.3-44.2); Mean Corpuscular HGB Conc 31.8 g/dl (32-36); Mean Corpuscular Hemoglobin 32.4 pg (26-34); Mean Corpuscular Volume 101.7 fl (80-100); Mean Platelet Volume 9.2 fl (7.4-10.4); Monocytes Percent Auto 11.7 % (2.6-8.5); Neutrophils Absolute Auto 4.7 K/mm3 (1.3-6.7); Neutrophils Percent Auto 54.3 % (45.5-73.1); Platelet Count Result 350 k/mm3 (150-375); Red Blood Count 3.49 M/mm3 (4.6-6.20); Red Cell Distribution Width 13.2 % (11.5-14.5); White Blood Count 8.6 K/mm3 (4.5-10.0)
[2024-04-01 06:00] LABS: Alanine Aminotransferase 21 U/L (6-50); Albumin Level 3.1 g/dL (3.5-5.1); Alkaline Phosphatase 112 U/L (38-126); Anion Gap 18 mmol/L (4-12); Aspartate Amino Transferase 15 U/L (17-59); Bilirubin,Total 0.4 mg/dL (0.2-1.3); Blood Urea Nitrogen 55 mg/dL (9-20); Calcium 7.8 mg/dL (8.4-10.2); Carbon Dioxide 19 mmol/L (22-30); Chloride 96 mmol/L (98-107); Estimated CRCL calculation 6 ml/min; Estimated Glomerular Filt Rate 3; Glucose 108 mg/dL (65-110); Potassium 3.2 mmol/L (3.4-5.0); Sodium 133 mmol/L (137-145)
--- NOTE | 2024-04-01 07:45 | PM.IMPN ---
Progress Note: A&P Assessment and Plan (1) Fluid overload: Qualifiers: Hypervolemia type: unspecified Qualified Code(s): E87.70 - Fluid overload, unspecified Code(s): E87.70 - Fluid overload, unspecified Status: Acute Assessment and Plan: Patient has missed two peritoneal dialysis appointments 2/2 weakness. BUN/Cr 56/15.49 on admission. - BUN/Cr 55/14.99 on am labs - BNP: 5670 - Chest XR: Peribronchial thickening with mild pulmonary vascular congestion, without focal infiltrate or effusion. - Discontinue torsemide 100 mg daily - Monitor I/O and daily weights - Nephrology consulted, appreciate recommendations (2) Orthostatic hypotension: Code(s): I95.1 - Orthostatic hypotension Status: Acute Assessment and Plan: Orthostatics positive. Patient endorsing dizziness/lightheadedness with position change. Notes that this often occurs prior to his falling. - Continue orthostatic blood pressures q shift - Started on midodrine 5 mg TID - Holding labetalol 100 mg daily - Discontinue torsemide 100 mg daily - Monitor (3) Sinus tachycardia: Code(s): R00.0 - Tachycardia, unspecified Status: Acute Assessment and Plan: HR ranging 90-110s. 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 Remains flat. Likely secondary to volume overload causing demand ischemia. Patient denying chest pain and palpitations. - EKG sinus tachycardia - Echo 10/09/23: LVEF 55-60% with grade I diastolic dysfunction - Monitor (6) Multiple falls: Code(s): R29.6 - Repeated falls Status: Acute Assessment and Plan: 2 falls where he becomes lightheaded after standing up from his chair. He then goes to walk and his legs give out on him resulting in him falling to the floor. He denies any loss of consciousness and hitting his head. He also denies any tingling/numbness, shooting pain to the lower extremities or loss of bowel/bladder since the fall. Patient is not on any anticoagulation. - Orthostatic blood pressures q shift: Negative however currently holding labetalol - Head CT 1. 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 2. Stable moderate nonspecific cerebral white matter disease, which likely represents chronic small vessel ischemic disease. - C/T/L spine CT: No fracture. Severe cervical spine spondylosis. Moderate thoracic/lumbar spondylosis. - PT/OT Recommending home health therapy (7) HTN (hypertension): Code(s): I10 - Essential (primary) hypertension Status: Chronic Assessment and Plan: Chronic - Currently holding labetalol 100 mg BID as patient has positive orthostatic hypotensive - Discontinue torsemide 100 mg daily - Continue to monitor and resume as appropriate (8) Severe protein-calorie malnutrition: Code(s): E43 - Unspecified severe protein-calorie malnutrition Status: Acute Assessment and Plan: Supplement per nutrition Time Spent With Patient Time with patient: 25 - 35 minutes Subjective Date/time seen: 04/01/24 07:45 Interval history: 54 year old male with past medical history of ESRD on peritoneal dialysis, hypertension, and polyneuropathy presents to the hospital for nausea/vomiting, weakness and multiple falls. Patient is pleasant sitting on the side of his bed. He continues to endorse lightheadedness with position change and has positive orthostatics. He has no other complaints denying chest pain, shortness of breath, palpitations, nausea/vomiting and abdominal pain. Spoke with nephrology, Dr. Dennis in regards to patients orthostatic hypotension. He is in agreement with the fluid trial and has discontinued the torsemide as the patient does not make much urine. Review of Systems Review of Systems: All systems reviewed & are unremarkable except as noted in HPI and below Exam Narrative: AF HR 98 RR 18 SpO2 97 BP 116/73 General: male in no acute respiratory distress who is nontoxic appearing, sitting up on the side of the bed HEENT: Normocephalic. Atraumatic. Extraocular movement intact. Sclera clear and anicteric. No facial asymmetry. Chest: Lungs are clear to auscultation bilaterally. No wheezes or crackles. CV: Heart was regular rate and rhythm. S1/S2. No murmurs, gallops, or rubs. Abd: Abdomen was soft. Nontender. Nondistended. Positive bowel sounds. PD site is nonconcerning for infection. Ext: No clubbing, cyanosis, or edema. 1+ DP pulses bilaterally. Neuro: Patient is alert. Speech is clear. Objective Data Vital Signs Vital Signs: Vital Signs - 24 hr 03/31/24 07:50 03/31/24 08:00 03/31/24 08:00 Temperature 98.1 F 98.0 F 98.0 F Pulse Rate 100 106 H 112 H Respiratory Rate 18 18 20 Blood Pressure 104/62 97/65 L 122/88 Pulse Oximetry 94 98 99 Oxygen Delivery 03/31/24 09:57 03/31/24 10:39 03/31/24 13:06 Temperature 98.1 F Pulse Rate 106 H Respiratory Rate 18 Blood Pressure 81/55 L Pulse Oximetry 98 Oxygen Delivery Room Air Room Air 03/31/24 14:27 03/31/24 20:00 03/31/24 21:11 Temperature 98.2 F 97.8 F Pulse Rate 101 H 108 H Respiratory Rate 16 16 Blood Pressure 97/64 L 106/69 Pulse Oximetry 94 95 Oxygen Delivery Room Air 03/31/24 21:12 03/31/24 21:14 03/31/24 21:16 Temperature Pulse Rate 108 H 112 H 116 H Respiratory Rate Blood Pressure 106/69 100/64 100/67 Pulse Oximetry Oxygen Delivery Intake/Output Intake/Output: Intake & Output 03/29/24 03/30/24 03/31/24 04/01/24 23:59 23:59 23:59 23:59 Intake Total 960 1300 1770 400 Output Total 0 1130 82 Balance 650 630 6713 400 Meds/Results Medications: Active Medications Generic Name Dose Route Start Last Admin Trade Name Freq PRN Reason Stop Dose Admin Acetaminophen 650 mg 03/29/24 07:25 03/29/24 10:39 Acetaminophen 325 Mg Tablet PO 650 mg Q4H PRN Administration Mild Pain (1-3) or Fever Hydrocodone Bitart/Acetaminophen 1 tab 03/30/24 12:41 03/31/24 20:16 Hydrocodone/Acetaminophen (*Crx) 5-325 Mg Tablet PO 1 tab Q8H PRN Administration Pain Rated 6 or Greater Buspirone HCl 10 mg 03/29/24 09:00 03/31/24 17:00 Buspirone Hcl 10 Mg Tablet PO 10 mg TID CARIDAD Administration Calcium Acetate 2,668 mg 03/29/24 08:00 03/31/24 17:00 Calcium Acetate 667 Mg Tablet PO 2,668 mg TIDWM CARIDAD Administration Calcium Carbonate 200 mg 03/29/24 07:14 Calcium Carbonate (Tums) 500 Mg (200 Mg Elemental) PO HS PRN Indigestion Cinacalcet 90 mg 03/29/24 09:00 03/31/24 08:27 Cinacalcet 30 Mg Tablet PO 90 mg DAILY CARIDAD Administration Dextrose 12.5 gm 03/29/24 07:25 Dextrose 50% 25 Gm/50 Ml Syringe IV PUSH PRN PRN Hypoglycemia Protocol Diphenoxylate HCl/Atropine 1 tablet 03/31/24 15:10 03/31/24 20:16 Diphenoxylate/Atropine (*Crx) 2.5 Mg Tablet PO 1 tablet QID PRN Administration diarrhea Enoxaparin Sodium 30 mg 03/30/24 09:00 03/31/24 08:27 Enoxaparin 30 Mg/0.3 Ml Syringe SUB-Q 30 mg DAILY CARIDAD Administration Escitalopram Oxalate 10 mg 03/29/24 09:00 03/31/24 08:27 Escitalopram Oxalate 10 Mg Tablet PO 10 mg DAILY CARIDAD Administration Gabapentin 300 mg 03/29/24 09:00 03/31/24 17:00 Gabapentin 300 Mg Capsule PO 300 mg TID CARIDAD Administration Gentamicin Sulfate 1 applic 03/31/24 15:10 03/31/24 19:40 Gentamicin Sulfate 0.1% Cr 15 Gm Tube TOPICAL 1 applic TID PRN Administration DIALYSIS CATH. Glucagon 1 mg 03/29/24 07:25 Glucagon For Inj 1 Mg Vial IM PRN PRN Hypoglycemia Protocol Glucose 15 gm 03/29/24 07:25 Glucose Oral Gel 15 Gm Of Glucse In 37.5 Gm Tube PO PRN PRN Hypoglycemia Protocol Dextrose 1,000 mls @ 100 mls/hr 03/29/24 07:25 Dextrose 5% 1,000 Ml IVPB PRN PRN Hypoglycemia Protocol Midodrine 5 mg 03/31/24 17:00 03/31/24 17:01 Midodrine Hcl 2.5 Mg Tablet PO 5 mg TID CARIDAD Administration Miscellaneous Information 1 each 03/29/24 00:01 Ferric Citrate [Auryxia] 210 Mg Iron Tablet Is Nonformulary. Can He Use Home Supply? XX 04/28/24 00:00 CLARIFY CARIDAD Non-Formulary Medication 210 mg 03/29/24 08:00 Ferric Citrate [Auryxia] PO 04/28/24 07:59 TIDWM CARIDAD Nortriptyline HCl 50 mg 03/29/24 21:00 03/31/24 20:16 Nortriptyline Hcl 25 Mg Capsule PO 50 mg HS CARIDAD Administration Ondansetron HCl 4 mg 03/29/24 00:21 03/30/24 09:08 Ondansetron Inj 4 Mg/2 Ml Vial IV PUSH 4 mg Q4H PRN Administration Nausea Pantoprazole Sodium 40 mg 03/29/24 09:00 03/31/24 08:26 Pantoprazole 40 Mg Tablet PO 40 mg QAM CARIDAD Administration Potassium Bicarbonate 50 meq 04/01/24 12:00 Potassium Bicarbonate 25 Meq Tabef PO 04/01/24 12:01 ONCE ONE Potassium Chloride 40 meq 03/29/24 09:00 03/31/24 08:26 Potassium Chloride 20 Meq Er Tablet PO 40 meq DAILY CARIDAD Administration Torsemide 100 mg 03/29/24 09:00 03/31/24 08:29 Torsemide 20 Mg Tablet PO Not Given QAM [facility] Radiology Results: ITS Impressions Chest X-Ray 03/28/24 17:33 IMPRESSION: Peribronchial thickening with mild pulmonary vascular congestion, without focal infiltrate or effusion. Abdomen/Pelvis CT 03/28/24 21:54 IMPRESSION: No acute intra-abdominal pathology. Innumerable nonacute findings, as detailed above. Head CT 03/29/24 14:57 IMPRESSION: 1. 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 2. Stable moderate nonspecific cerebral white matter disease, which likely represents chronic small vessel ischemic disease. Cervical Spine CT 03/29/24 15:03 IMPRESSION: 1. No fracture 2. Severe cervical spondylosis. Thoracic/Lumbar Spine CT 03/29/24 15:07 IMPRESSION: 1. No fracture. 2. Moderate thoracic and lumbar spondylosis. Labs Labs: Laboratory Results - last 24 hr 03/31/24 03/31/24 04/01/24 09:30 11:50 05:04 WBC 8.6 RBC 3.49 L Hgb 11.3 L Hct 35.5 L MCV 101.7 H MCH 32.4 MCHC 31.8 L RDW 13.2 Plt Count 350 MPV 9.2 Immature Gran % (Auto) 0.2 Neut % (Auto) 54.3 Lymph % (Auto) 24.2 [place] % (Auto) 11.7 H Eos % (Auto) 8.8 H Baso % (Auto) 0.8 Lymph # (Auto) 2.09 [place] # (Auto) 1.0 H Eos # (Auto) 0.8 H Baso # (Auto) 0.1 Abs Immat Gran (auto) 0.02 Absolute Neuts (auto) 4.7 Absolute Nucleated RBC 0.000 Nucleated RBC % 0.0 Sodium 133 L Potassium 3.2 L Chloride 96 L Carbon Dioxide 19 L Anion Gap 18 H BUN 55 H Creatinine 14.99 H Estim Creat Clear Calc 6 Estimated GFR 3 L Glucose 108 POC Capillary Glucose 148 H 107 H Calcium 7.8 L Total Bilirubin 0.4 AST 15 L ALT 21 Alkaline Phosphatase 112 Total Protein 6.0 L Albumin 3.1 L Quality VTE Prophylaxis VTE prophylaxis: pharmacologic ordered
[2024-04-01] MEDS: GABAPENTIN 300 MG CAPSULE PO ×3 (09:25→16:42)
[2024-04-01] MEDS: MIDODRINE HCL 2.5 MG TABLET 5 MG PO ×3 (09:25→16:41)
[2024-04-01] MEDS: CINACALCET 30 MG TABLET 90 MG PO (09:25)
[2024-04-01] MEDS: ENOXAPARIN 30 MG/0.3 ML SYRINGE SUB-Q (09:26)
[2024-04-01] MEDS: busPIRone HCL 10 MG TABLET PO ×3 (09:26→16:42)
[2024-04-01] MEDS: ESCITALOPRAM OXALATE 10 MG TABLET PO (09:26)
[2024-04-01] MEDS: POTASSIUM CHLORIDE 20 MEQ ER TABLET 40 MEQ PO (09:26)
[2024-04-01] MEDS: PANTOPRAZOLE 40 MG TABLET PO (09:26)
[2024-04-01] MEDS: TORSEMIDE 20 MG TABLET 100 MG PO (09:27)
[2024-04-01] MEDS: CALCIUM ACETATE 667 MG TABLET 2668 MG PO ×3 (09:34→16:42)
[2024-04-01] MEDS: SODIUM CHLORIDE 0.9% IV 250 ML 100 ML IV CONT (09:43)
--- NOTE | 2024-04-01 11:11 | P.PNNP_ITS ---
Progress Note: A&P Assessment and Plan (1) End stage renal disease: Code(s): N18.6 - End stage renal disease Status: Chronic Assessment and Plan: * continue nightly CCPD * adjust PD Rx as needed * follow electrolytes, volume status, and clearance * replete electrolytes as needed (2) Multiple falls: Code(s): R29.6 - Repeated falls Status: Acute Assessment and Plan: * suspect multifactorial: * deconditioning from recent hospitalization * orthostatic hypotension * continued use of BP medications in the context of relative hypotension * possible autonomic neuropathy(?) * other(?) * CT of head without acute findings: * 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 * stable moderate nonspecific cerebral white matter disease, which likely represents chronic small vessel ischemic disease * holding BP medications * follow orthostatic BP * PT/OT as tolerated (3) Orthostatic hypotension: Code(s): I95.1 - Orthostatic hypotension Status: Acute Assessment and Plan: * as noted by vital signs * on midodrine therapy * follow trend of hemodynamics and symptoms * trial of IVFs today and holding torsemide (4) Fluid overload: Qualifiers: Hypervolemia type: unspecified Qualified Code(s): E87.70 - Fluid overload, unspecified Code(s): E87.70 - Fluid overload, unspecified Status: Acute Assessment and Plan: * known history as noted by recent hospitalization (February 2024) * s/p aggressive PD treatments on last hospitalization with significant ultrafiltration * 8.2L negative by the time of discharge * admission CXR noted: * peribronchial thickening with mild pulmonary vascular congestion without focal infiltrate or effusion * continue fluid removal with PD to optimize volume status * was on torsemide but holding given #3 * follow daily weights and I/Os (5) Hypokalemia: Code(s): E87.6 - Hypokalemia Status: Acute Assessment and Plan: * due to PD and torsemide * on scheduled potassium supplementation * PRN dosing as needed * follow trend of K+ level (6) HTN (hypertension): Code(s): I10 - Essential (primary) hypertension Status: Chronic Assessment and Plan: * complicated by #3 * BP medications on hold * follow trend of hemodynamics (7) Anemia: Code(s): D64.9 - Anemia, unspecified Status: Acute Assessment and Plan: * H/H supratherapeutic for ESRD * holding Epogen * follow trend of H/H (8) Generalized weakness: Code(s): R53.1 - Weakness Status: Acute Assessment and Plan: * suspect related to recent hospitalization/deconditioning in association with prior influenza infection and orthostatic hypotension * PT/OT as tolerated Will continue to follow. L Subjective Date/time seen: 04/01/24 11:11 Interval history: Follow-up for end stage renal disease on peritoneal dialysis. Tolerated peritoneal dialysis overnight without any issues or problems (CCPD supervised and seen at 11:00AM); positive orthostatic BP noted by testing yet again today with associated lightheadedness with positional change; torsemide on hold and being given gentle IVF challenge today; on midodrine therapy as well; no apparent distress noted. Exam 2 Narrative: General: WD/WN male (who appears older than stated age) in NAD Heart: normal S1 and S2; no rub Lungs: clear anteriorly Abdomen: soft, nontender, nondistended, positive bowel sounds Extremities: no cyanosis or clubbing; trace edema Skin: no rash Objective Data Vital Signs Vital Signs: Vital Signs Temp Pulse Resp BP Pulse Ox O2 Del Method 04/01/24 10:29 97.6 F 111 H 16 98/77 L 98 04/01/24 10:29 70/50 L (standing) 04/01/24 10:27 95/67 L (sitting) 04/01/24 10:25 98/77 L (supine) 04/01/24 08:00 Room Air 03/31/24 21:16 116 H 100/67 03/31/24 21:14 112 H 100/64 03/31/24 21:12 108 H 106/69 03/31/24 21:11 97.8 F 108 H 16 106/69 95 03/31/24 20:00 Room Air Intake/Output Intake/Output: Intake & Output 03/29/24 03/30/24 03/31/24 04/01/24 23:59 23:59 23:59 23:59 Intake Total 960 1300 1770 880 Output Total 0 1130 82 Balance 124 966 1623 880 Meds/Results Medications: Active Medications Generic Name Dose Route Start Last Admin Trade Name Freq PRN Reason Stop Dose Admin Acetaminophen 650 mg 03/29/24 07:25 04/01/24 16:46 Acetaminophen 325 Mg Tablet PO 650 mg Q4H PRN Administration Mild Pain (1-3) or Fever Hydrocodone Bitart/Acetaminophen 1 tab 03/30/24 12:41 04/01/24 11:51 Hydrocodone/Acetaminophen (*Crx) 5-325 Mg Tablet PO 1 tab Q8H PRN Administration Pain Rated 6 or Greater Buspirone HCl 10 mg 03/29/24 09:00 04/01/24 16:42 Buspirone Hcl 10 Mg Tablet PO 10 mg TID CARIDAD Administration Calcium Acetate 2,668 mg 03/29/24 08:00 04/01/24 16:42 Calcium Acetate 667 Mg Tablet PO 2,668 mg TIDWM CARIDAD Administration Calcium Carbonate 200 mg 03/29/24 07:14 Calcium Carbonate (Tums) 500 Mg (200 Mg Elemental) PO HS PRN Indigestion Cinacalcet 90 mg 03/29/24 09:00 04/01/24 09:25 Cinacalcet 30 Mg Tablet PO 90 mg DAILY CARIDAD Administration Dextrose 12.5 gm 03/29/24 07:25 Dextrose 50% 25 Gm/50 Ml Syringe IV PUSH PRN PRN Hypoglycemia Protocol Diphenoxylate HCl/Atropine 1 tablet 03/31/24 15:10 04/01/24 16:42 Diphenoxylate/Atropine (*Crx) 2.5 Mg Tablet PO 1 tablet QID PRN Administration diarrhea Enoxaparin Sodium 30 mg 03/30/24 09:00 04/01/24 09:26 Enoxaparin 30 Mg/0.3 Ml Syringe SUB-Q 30 mg DAILY CARIDAD Administration Escitalopram Oxalate 10 mg 03/29/24 09:00 04/01/24 09:26 Escitalopram Oxalate 10 Mg Tablet PO 10 mg DAILY CARIDAD Administration Gabapentin 300 mg 03/29/24 09:00 04/01/24 16:42 Gabapentin 300 Mg Capsule PO 300 mg TID CARIDAD Administration Gentamicin Sulfate 1 applic 03/31/24 15:10 03/31/24 19:40 Gentamicin Sulfate 0.1% Cr 15 Gm Tube TOPICAL 1 applic TID PRN Administration DIALYSIS CATH. Glucagon 1 mg 03/29/24 07:25 Glucagon For Inj 1 Mg Vial IM PRN PRN Hypoglycemia Protocol Glucose 15 gm 03/29/24 07:25 Glucose Oral Gel 15 Gm Of Glucse In 37.5 Gm Tube PO PRN PRN Hypoglycemia Protocol Dextrose 1,000 mls @ 100 mls/hr 03/29/24 07:25 Dextrose 5% 1,000 Ml IVPB PRN PRN Hypoglycemia Protocol Midodrine 5 mg 03/31/24 17:00 04/01/24 16:41 Midodrine Hcl 2.5 Mg Tablet PO 5 mg TID CARIDAD Administration Miscellaneous Information 1 each 03/29/24 00:01 Ferric Citrate [Auryxia] 210 Mg Iron Tablet Is Nonformulary. Can He Use Home Supply? XX 04/28/24 00:00 CLARIFY CARIDAD Non-Formulary Medication 210 mg 03/29/24 08:00 Ferric Citrate [Auryxia] PO 04/28/24 07:59 TIDWM CARIDAD Nortriptyline HCl 50 mg 03/29/24 21:00 03/31/24 20:16 Nortriptyline Hcl 25 Mg Capsule PO 50 mg HS CARIDAD Administration Ondansetron HCl 4 mg 03/29/24 00:21 03/30/24 09:08 Ondansetron Inj 4 Mg/2 Ml Vial IV PUSH 4 mg Q4H PRN Administration Nausea Pantoprazole Sodium 40 mg 03/29/24 09:00 04/01/24 09:26 Pantoprazole 40 Mg Tablet PO 40 mg QAM CARIDAD Administration Potassium Chloride 40 meq 03/29/24 09:00 04/01/24 09:26 Potassium Chloride 20 Meq Er Tablet PO 40 meq DAILY CARIDAD Administration Torsemide 100 mg 03/29/24 09:00 04/01/24 09:27 Torsemide 20 Mg Tablet PO 100 mg QAM CARIDAD Administration Radiology Results: ITS Impressions Chest X-Ray 03/28/24 17:33 IMPRESSION: Peribronchial thickening with mild pulmonary vascular congestion, without focal infiltrate or effusion. Abdomen/Pelvis CT 03/28/24 21:54 IMPRESSION: No acute intra-abdominal pathology. Innumerable nonacute findings, as detailed above. Head CT 03/29/24 14:57 IMPRESSION: 1. 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 2. Stable moderate nonspecific cerebral white matter disease, which likely represents chronic small vessel ischemic disease. Cervical Spine CT 03/29/24 15:03 IMPRESSION: 1. No fracture 2. Severe cervical spondylosis. Thoracic/Lumbar Spine CT 03/29/24 15:07 IMPRESSION: 1. No fracture. 2. Moderate thoracic and lumbar spondylosis. Labs Labs: Laboratory Tests 04/01/24 05:04 04/01/24 05:04 Calcium 7.8 L Total Bilirubin 0.4 AST 15 L ALT 21 Alkaline Phosphatase 112 Total Protein 6.0 L Albumin 3.1 L
[2024-04-01] MEDS: HYDROcodone/acetaminophen (*CRX) 5-325 MG TABLET 1 TAB PO ×2 (11:51→19:54)
[2024-04-01] MEDS: POTASSIUM BICARBONATE 25 MEQ TABEF 50 MEQ PO (15:15)
[2024-04-01] MEDS: DIPHENOXYLATE/ATROPINE (*CRX) 2.5 MG TABLET 1 TABLET PO ×2 (16:42→19:54)
[2024-04-01] MEDS: ACETAMINOPHEN 325 MG TABLET 650 MG PO (16:46)
[2024-04-01] MEDS: NORTRIPTYLINE HCL 25 MG CAPSULE 50 MG PO (19:54)
[2024-04-02] VITALS (13 sets, daily range): BP systolic 96–160; BP diastolic 59–120; PULSE 87–117; RESP 16–18; TEMP 36.4–36.7; O2SAT 95–100
[2024-04-02 05:24] LABS: Basophils Absolute Auto 0.1 K/mm3 (0.0-0.1); Basophils Percent Auto 0.8 % (0.2-1.2); Eosinophils Absolute Auto 0.8 K/mm3 (0-0.3); Eosinophils Percent Auto 8.1 % (0-4.4); Hematocrit 35.1 % (42.0-52.0); Hemoglobin 11.1 g/dL (14.0-18.0); Immature Granulocyte Absolute 0.03 K/mm3 (0.00-0.031); Immature Granulocyte Percent A 0.3 % (0-0.5); Lymphocytes Absolute Auto 1.63 K/mm3 (0.9-3.2); Lymphocytes Percent Auto 17.7 % (18.3-44.2); Mean Corpuscular HGB Conc 31.6 g/dl (32-36); Mean Corpuscular Hemoglobin 32.1 pg (26-34); Mean Corpuscular Volume 101.4 fl (80-100); Monocytes Percent Auto 10.7 % (2.6-8.5); Neutrophils Absolute Auto 5.8 K/mm3 (1.3-6.7); Neutrophils Percent Auto 62.4 % (45.5-73.1); Platelet Count Result 340 k/mm3 (150-375); Red Blood Count 3.46 M/mm3 (4.6-6.20); Red Cell Distribution Width 13.2 % (11.5-14.5); White Blood Count 9.2 K/mm3 (4.5-10.0)
[2024-04-02 05:38] LABS: Alanine Aminotransferase 20 U/L (6-50); Alkaline Phosphatase 118 U/L (38-126); Anion Gap 16 mmol/L (4-12); Aspartate Amino Transferase 19 U/L (17-59); Bilirubin,Total 0.4 mg/dL (0.2-1.3); Blood Urea Nitrogen 51 mg/dL (9-20); Calcium 7.7 mg/dL (8.4-10.2); Carbon Dioxide 21 mmol/L (22-30); Chloride 97 mmol/L (98-107); Glucose 92 mg/dL (65-110); Potassium 3.8 mmol/L (3.4-5.0); Sodium 134 mmol/L (137-145)
[2024-04-02 05:45] LABS: Estimated CRCL calculation 6 ml/min; Estimated Glomerular Filt Rate 4
--- NOTE | 2024-04-02 07:40 | P.PNIM_ITS ---
Progress Note: A&P Assessment and Plan (1) Fluid overload: Qualifiers: Hypervolemia type: unspecified Qualified Code(s): E87.70 - Fluid overload, unspecified Code(s): E87.70 - Fluid overload, unspecified Status: Acute Assessment and Plan: Patient has missed two peritoneal dialysis appointments 2/2 weakness. BUN/Cr 56/15.49 on admission. - BUN/Cr 51/14.43 on am labs - BNP: 5670 - Chest XR: Peribronchial thickening with mild pulmonary vascular congestion, without focal infiltrate or effusion. - Discontinue torsemide 100 mg daily - Monitor I/O and daily weights - Nephrology consulted, appreciate recommendations (2) Orthostatic hypotension: Code(s): I95.1 - Orthostatic hypotension Status: Acute Assessment and Plan: Orthostatics positive. Patient endorsing dizziness/lightheadedness with position change. Notes that this often occurs prior to his falling. - Continue orthostatic blood pressures q shift - Started on midodrine 10 mg TID - gladis hose - Holding labetalol 100 mg daily - Discontinue torsemide 100 mg daily - neuro consulted, appreciate recommendations - Monitor (3) Sinus tachycardia: Code(s): R00.0 - Tachycardia, unspecified Status: Acute Assessment and Plan: HR ranging 90-110s. Tele. Holding home labetalol 100 mg BID as patient is having symptomatic orthostatic hypotension Trialed a 250 ml bolus of NS, however HR remains elevated Will give another 250 ml bolus of NS, reassess HR Continue to monitor 7 beat run of V tach on telemetry Mg 1.4 on am, given 2g Mg IV x1 Continue to monitor (4) End-stage renal disease on peritoneal dialysis: Code(s): N18.6 - End stage renal disease; Z99.2 - Dependence on renal dialysis Status: Acute Assessment and Plan: End-stage renal disease on peritoneal dialysis PD schedule per superintendent terminal Discontinue torsemide (5) Elevated troponin: Code(s): R79.89 - Other specified abnormal findings of blood chemistry Status: Acute Assessment and Plan: Troponin 0.048, repeat 0.049. Remains flat. Likely secondary to volume overload causing demand ischemia. Patient denying chest pain and palpitations. - EKG sinus tachycardia - Echo 10/09/23: LVEF 55-60% with grade I diastolic dysfunction - Monitor (6) Multiple falls: Code(s): R29.6 - Repeated falls Status: Acute Assessment and Plan: 2 falls where he becomes lightheaded after standing up from his chair. He then goes to walk and his legs give out on him resulting in him falling to the floor. He denies any loss of consciousness and hitting his head. He also denies any tingling/numbness, shooting pain to the lower extremities or loss of bowel/bladder since the fall. Patient is not on any anticoagulation. - Orthostatic blood pressures q shift - Head CT 1. 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 2. Stable moderate nonspecific cerebral white matter disease, which likely represents chronic small vessel ischemic disease. - C/T/L spine CT: No fracture. Severe cervical spine spondylosis. Moderate thoracic/lumbar spondylosis. - PT/OT Recommending home health therapy (7) HTN (hypertension): Code(s): I10 - Essential (primary) hypertension Status: Chronic Assessment and Plan: Chronic - Currently holding labetalol 100 mg BID as patient has positive orthostatic hypotensive - Discontinue torsemide 100 mg daily - Continue to monitor and resume as appropriate (8) Severe protein-calorie malnutrition: Code(s): E43 - Unspecified severe protein-calorie malnutrition Status: Acute Assessment and Plan: Supplement per nutrition Time Spent With Patient Time with patient: 25 - 35 minutes Subjective Date/time seen: 04/02/24 07:40 Interval history: 54 year old male with past medical history of ESRD on peritoneal dialysis, hypertension, and polyneuropathy presents to the hospital for nausea/vomiting, weakness and multiple falls. Patient is pleasant lying comfortably in bed. Performed his orthostatic pressures myself during assessment and they were negative, however these became positive during the day as per chart review. He continues to endorse dizziness/lightheadedness. Increased patients midodrine to 10 mg TID and started gladis hose. Neuro consulted. Patient remains tachycardic in the 100-110s but denies chest pain and palpitations. Discussed patient with Dr. Miranda and will give another 250 ml NS bolus. Patient had a 7 beat run of vtach on tele, mg found to be low, 2g mg IV given. Patient has no other complaints denying shortness of breath, nausea/vomiting and abdominal pain. Review of Systems Review of Systems: All systems reviewed & are unremarkable except as noted in HPI and below Exam Narrative: AF HR 99 RR 18 SpO2 95 BP 115/76 General: male in no acute respiratory distress who is nontoxic appearing, sitting up on the side of the bed HEENT: Normocephalic. Atraumatic. Extraocular movement intact. Sclera clear and anicteric. No facial asymmetry. Chest: Lungs are clear to auscultation bilaterally. No wheezes or crackles. CV: Heart was tachycardic with regular rhythm. S1/S2. No murmurs, gallops, or rubs. Abd: Abdomen was soft. Nontender. Nondistended. Positive bowel sounds. PD site is nonconcerning for infection. Ext: No clubbing, cyanosis, or edema. 1+ DP pulses bilaterally. Neuro: Patient is alert. Speech is clear. Objective Data Vital Signs Vital Signs: Vital Signs - 24 hr 04/01/24 08:00 04/01/24 09:30 04/01/24 10:25 Temperature 97.6 F Pulse Rate 116 H Respiratory Rate 16 Blood Pressure 100/67 98/77 L Pulse Oximetry Oxygen Delivery Room Air 04/01/24 10:27 04/01/24 10:29 04/01/24 10:29 Temperature 97.6 F Pulse Rate 111 H Respiratory Rate 16 Blood Pressure 95/67 L 70/50 L 98/77 L Pulse Oximetry 98 Oxygen Delivery 04/01/24 14:47 04/01/24 20:00 04/01/24 20:46 Temperature 97.6 F Pulse Rate 98 100 Respiratory Rate 18 Blood Pressure 116/73 115/76 Pulse Oximetry 97 Oxygen Delivery Room Air 04/01/24 20:50 04/01/24 20:53 04/01/24 20:58 Temperature 97.1 F L Pulse Rate 105 H 102 H 100 Respiratory Rate 18 Blood Pressure 117/85 106/62 115/76 Pulse Oximetry 95 Oxygen Delivery 04/02/24 06:03 Temperature 97.6 F Pulse Rate 99 Respiratory Rate 18 Blood Pressure 122/83 Pulse Oximetry 95 Oxygen Delivery Intake/Output Intake/Output: Intake & Output 03/30/24 03/31/24 04/01/24 04/02/24 23:59 23:59 23:59 23:59 Intake Total 1300 1770 1420 150 Output Total 1130 82 792 0 Balance 170 1688 628 150 Meds/Results Medications: Active Medications Generic Name Dose Route Start Last Admin Trade Name Freq PRN Reason Stop Dose Admin Acetaminophen 650 mg 03/29/24 07:25 04/01/24 16:46 Acetaminophen 325 Mg Tablet PO 650 mg Q4H PRN Administration Mild Pain (1-3) or Fever Hydrocodone Bitart/Acetaminophen 1 tab 03/30/24 12:41 04/01/24 19:54 Hydrocodone/Acetaminophen (*Crx) 5-325 Mg Tablet PO 1 tab Q8H PRN Administration Pain Rated 6 or Greater Buspirone HCl 10 mg 03/29/24 09:00 04/01/24 16:42 Buspirone Hcl 10 Mg Tablet PO 10 mg TID CARIDAD Administration Calcium Acetate 2,668 mg 03/29/24 08:00 04/01/24 16:42 Calcium Acetate 667 Mg Tablet PO 2,668 mg TIDWM CARIDAD Administration Calcium Carbonate 200 mg 03/29/24 07:14 Calcium Carbonate (Tums) 500 Mg (200 Mg Elemental) PO HS PRN Indigestion Cinacalcet 90 mg 03/29/24 09:00 04/01/24 09:25 Cinacalcet 30 Mg Tablet PO 90 mg DAILY CARIDAD Administration Dextrose 12.5 gm 03/29/24 07:25 Dextrose 50% 25 Gm/50 Ml Syringe IV PUSH PRN PRN Hypoglycemia Protocol Diphenoxylate HCl/Atropine 1 tablet 03/31/24 15:10 04/01/24 19:54 Diphenoxylate/Atropine (*Crx) 2.5 Mg Tablet PO 1 tablet QID PRN Administration diarrhea Enoxaparin Sodium 30 mg 03/30/24 09:00 04/01/24 09:26 Enoxaparin 30 Mg/0.3 Ml Syringe SUB-Q 30 mg DAILY CARIDAD Administration Escitalopram Oxalate 10 mg 03/29/24 09:00 04/01/24 09:26 Escitalopram Oxalate 10 Mg Tablet PO 10 mg DAILY CARIDAD Administration Gabapentin 300 mg 03/29/24 09:00 04/01/24 16:42 Gabapentin 300 Mg Capsule PO 300 mg TID CARIDAD Administration Gentamicin Sulfate 1 applic 03/31/24 15:10 03/31/24 19:40 Gentamicin Sulfate 0.1% Cr 15 Gm Tube TOPICAL 1 applic TID PRN Administration DIALYSIS CATH. Glucagon 1 mg 03/29/24 07:25 Glucagon For Inj 1 Mg Vial IM PRN PRN Hypoglycemia Protocol Glucose 15 gm 03/29/24 07:25 Glucose Oral Gel 15 Gm Of Glucse In 37.5 Gm Tube PO PRN PRN Hypoglycemia Protocol Dextrose 1,000 mls @ 100 mls/hr 03/29/24 07:25 Dextrose 5% 1,000 Ml IVPB PRN PRN Hypoglycemia Protocol Midodrine 5 mg 03/31/24 17:00 04/01/24 16:41 Midodrine Hcl 2.5 Mg Tablet PO 5 mg TID CARIDAD Administration Miscellaneous Information 1 each 03/29/24 00:01 Ferric Citrate [Auryxia] 210 Mg Iron Tablet Is Nonformulary. Can He Use Home Supply? XX 04/28/24 00:00 CLARIFY CARIDAD Non-Formulary Medication 210 mg 03/29/24 08:00 Ferric Citrate [Auryxia] PO 04/28/24 07:59 TIDWM CARIDAD Nortriptyline HCl 50 mg 03/29/24 21:00 04/01/24 19:54 Nortriptyline Hcl 25 Mg Capsule PO 50 mg HS CARIDAD Administration Ondansetron HCl 4 mg 03/29/24 00:21 03/30/24 09:08 Ondansetron Inj 4 Mg/2 Ml Vial IV PUSH 4 mg Q4H PRN Administration Nausea Pantoprazole Sodium 40 mg 03/29/24 09:00 04/01/24 09:26 Pantoprazole 40 Mg Tablet PO 40 mg QAM CARIDAD Administration Potassium Chloride 40 meq 03/29/24 09:00 04/01/24 09:26 Potassium Chloride 20 Meq Er Tablet PO 40 meq DAILY CARIDAD Administration Torsemide 100 mg 03/29/24 09:00 04/01/24 09:27 Torsemide 20 Mg Tablet PO 100 mg QAM CARIDAD Administration Radiology Results: ITS Impressions Chest X-Ray 03/28/24 17:33 IMPRESSION: Peribronchial thickening with mild pulmonary vascular congestion, without focal infiltrate or effusion. Abdomen/Pelvis CT 03/28/24 21:54 IMPRESSION: No acute intra-abdominal pathology. Innumerable nonacute findings, as detailed above. Head CT 03/29/24 14:57 IMPRESSION: 1. 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 2. Stable moderate nonspecific cerebral white matter disease, which likely represents chronic small vessel ischemic disease. Cervical Spine CT 03/29/24 15:03 IMPRESSION: 1. No fracture 2. Severe cervical spondylosis. Thoracic/Lumbar Spine CT 03/29/24 15:07 IMPRESSION: 1. No fracture. 2. Moderate thoracic and lumbar spondylosis. Labs Labs: Laboratory Results - last 24 hr 04/02/24 05:08 WBC 9.2 RBC 3.46 L Hgb 11.1 L Hct 35.1 L MCV 101.4 H MCH 32.1 MCHC 31.6 L RDW 13.2 Plt Count 340 MPV 9.0 Immature Gran % (Auto) 0.3 Neut % (Auto) 62.4 Lymph % (Auto) 17.7 L [place] % (Auto) 10.7 H Eos % (Auto) 8.1 H Baso % (Auto) 0.8 Lymph # (Auto) 1.63 [place] # (Auto) 1.0 H Eos # (Auto) 0.8 H Baso # (Auto) 0.1 Abs Immat Gran (auto) 0.03 Absolute Neuts (auto) 5.8 Absolute Nucleated RBC 0.000 Nucleated RBC % 0.0 Sodium 134 L Potassium 3.8 Chloride 97 L Carbon Dioxide 21 L Anion Gap 16 H BUN 51 H Creatinine 14.43 H Estim Creat Clear Calc 6 Estimated GFR 4 L Glucose 92 Calcium 7.7 L Total Bilirubin 0.4 AST 19 ALT 20 Alkaline Phosphatase 118 Total Protein 6.0 L Albumin 3.0 L Quality VTE Prophylaxis VTE prophylaxis: pharmacologic ordered
[2024-04-02] MEDS: HYDROcodone/acetaminophen (*CRX) 5-325 MG TABLET 1 TAB PO ×2 (08:58→16:35)
[2024-04-02] MEDS: PANTOPRAZOLE 40 MG TABLET PO ×2 (08:59→12:23)
[2024-04-02] MEDS: MIDODRINE HCL 2.5 MG TABLET 5 MG PO ×2 (08:59→12:23)
[2024-04-02] MEDS: ESCITALOPRAM OXALATE 10 MG TABLET PO (09:00)
[2024-04-02] MEDS: busPIRone HCL 10 MG TABLET PO ×3 (09:00→16:41)
[2024-04-02] MEDS: POTASSIUM CHLORIDE 20 MEQ ER TABLET 40 MEQ PO (09:00)
[2024-04-02] MEDS: CINACALCET 30 MG TABLET 90 MG PO (09:00)
[2024-04-02] MEDS: GABAPENTIN 300 MG CAPSULE PO ×3 (09:00→16:41)
[2024-04-02] MEDS: ENOXAPARIN 30 MG/0.3 ML SYRINGE SUB-Q (09:01)
[2024-04-02] MEDS: CALCIUM ACETATE 667 MG TABLET 2668 MG PO ×3 (09:31→16:41)
[2024-04-02] MEDS: ACETAMINOPHEN 325 MG TABLET 650 MG PO ×3 (09:34→20:29)
--- NOTE | 2024-04-02 12:54 | P.PNNP_ITS ---
Progress Note: A&P Assessment and Plan (1) End stage renal disease: Code(s): N18.6 - End stage renal disease Status: Chronic Assessment and Plan: * continue nightly CCPD * adjust PD Rx as needed * follow electrolytes, volume status, and clearance * replete electrolytes as needed (2) Multiple falls: Code(s): R29.6 - Repeated falls Status: Acute Assessment and Plan: * suspect multifactorial: * deconditioning from recent hospitalization * orthostatic hypotension * continued use of BP medications in the context of relative hypotension * possible autonomic neuropathy(?) * other(?) * CT of head without acute findings: * 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 * stable moderate nonspecific cerebral white matter disease, which likely represents chronic small vessel ischemic disease * holding BP medications * follow orthostatic BP * PT/OT as tolerated (3) Orthostatic hypotension: Code(s): I95.1 - Orthostatic hypotension Status: Acute Assessment and Plan: * as noted by vital signs * on midodrine therapy * follow trend of hemodynamics and symptoms * another trial of IVFs today and continue holding torsemide (4) Fluid overload: Qualifiers: Hypervolemia type: unspecified Qualified Code(s): E87.70 - Fluid overload, unspecified Code(s): E87.70 - Fluid overload, unspecified Status: Acute Assessment and Plan: * known history as noted by recent hospitalization (February 2024) * s/p aggressive PD treatments on last hospitalization with significant ultrafiltration * 8.2L negative by the time of discharge * admission CXR noted: * peribronchial thickening with mild pulmonary vascular congestion without focal infiltrate or effusion * continue fluid removal with PD to optimize volume status * was on torsemide but holding given #3 * follow daily weights and I/Os (5) Hypokalemia: Code(s): E87.6 - Hypokalemia Status: Acute Assessment and Plan: * due to PD and torsemide * on scheduled potassium supplementation * PRN dosing as needed * follow trend of K+ level (6) HTN (hypertension): Code(s): I10 - Essential (primary) hypertension Status: Chronic Assessment and Plan: * complicated by #3 * BP medications on hold * follow trend of hemodynamics (7) Anemia: Code(s): D64.9 - Anemia, unspecified Status: Acute Assessment and Plan: * H/H supratherapeutic for ESRD * holding Epogen * follow trend of H/H (8) Generalized weakness: Code(s): R53.1 - Weakness Status: Acute Assessment and Plan: * suspect related to recent hospitalization/deconditioning in association with prior influenza infection and orthostatic hypotension * PT/OT as tolerated Will continue to follow. L Subjective Date/time seen: 04/02/24 12:54 Interval history: Follow-up for end stage renal disease on peritoneal dialysis. Tolerated peritoneal dialysis overnight without issues; still with persistent orthostatic hypotension with associate symptoms of lightheadedness; another IVF fluid challenge today and midodrine dosage increased; no other acute complaints voiced today. Exam 2 Narrative: General: WD/WN male (who appears older than stated age) in NAD Heart: normal S1 and S2; no rub Lungs: clear anteriorly Abdomen: soft, nontender, nondistended, positive bowel sounds Extremities: no cyanosis or clubbing; trace edema Skin: no nodules Objective Data Vital Signs Vital Signs: Vital Signs Temp Pulse Resp BP Pulse Ox O2 Del Method 04/02/24 12:00 91 04/02/24 11:14 117 H 96/68 (standing) 04/02/24 11:12 110 H 123/82 (sitting) 04/02/24 11:10 96 134/85 (supine) 04/02/24 09:10 97.7 F 112 H 18 96/59 L 04/02/24 08:00 Room Air 04/02/24 06:03 97.6 F 99 18 122/83 95 04/01/24 20:58 97.1 F L 100 18 115/76 95 04/01/24 20:53 102 H 106/62 04/01/24 20:50 105 H 117/85 04/01/24 20:46 100 115/76 04/01/24 20:00 Room Air Intake/Output Intake/Output: Intake & Output 03/30/24 03/31/24 04/01/24 04/02/24 23:59 23:59 23:59 23:59 Intake Total 1300 1770 1420 750 Output Total 1130 82 792 1109 Balance 170 1888 623 -359 Meds/Results Medications: Active Medications Generic Name Dose Route Start Last Admin Trade Name Freq PRN Reason Stop Dose Admin Acetaminophen 650 mg 03/29/24 07:25 04/02/24 16:36 Acetaminophen 325 Mg Tablet PO 650 mg Q4H PRN Administration Mild Pain (1-3) or Fever Hydrocodone Bitart/Acetaminophen 1 tab 03/30/24 12:41 04/02/24 16:35 Hydrocodone/Acetaminophen (*Crx) 5-325 Mg Tablet PO 1 tab Q8H PRN Administration Pain Rated 6 or Greater Buspirone HCl 10 mg 03/29/24 09:00 04/02/24 16:41 Buspirone Hcl 10 Mg Tablet PO 10 mg TID CARIDAD Administration Calcium Acetate 2,668 mg 03/29/24 08:00 04/02/24 16:41 Calcium Acetate 667 Mg Tablet PO 2,668 mg TIDWM CARIDAD Administration Calcium Carbonate 200 mg 03/29/24 07:14 Calcium Carbonate (Tums) 500 Mg (200 Mg Elemental) PO HS PRN Indigestion Cinacalcet 90 mg 03/29/24 09:00 04/02/24 09:00 Cinacalcet 30 Mg Tablet PO 90 mg DAILY CARIDAD Administration Dextrose 12.5 gm 03/29/24 07:25 Dextrose 50% 25 Gm/50 Ml Syringe IV PUSH PRN PRN Hypoglycemia Protocol Diphenoxylate HCl/Atropine 1 tablet 03/31/24 15:10 04/01/24 19:54 Diphenoxylate/Atropine (*Crx) 2.5 Mg Tablet PO 1 tablet QID PRN Administration diarrhea Enoxaparin Sodium 30 mg 03/30/24 09:00 04/02/24 09:01 Enoxaparin 30 Mg/0.3 Ml Syringe SUB-Q 30 mg DAILY CARIDAD Administration Escitalopram Oxalate 10 mg 03/29/24 09:00 04/02/24 09:00 Escitalopram Oxalate 10 Mg Tablet PO 10 mg DAILY CARIDAD Administration Gabapentin 300 mg 03/29/24 09:00 04/02/24 16:41 Gabapentin 300 Mg Capsule PO 300 mg TID CARIDAD Administration Gentamicin Sulfate 1 applic 03/31/24 15:10 03/31/24 19:40 Gentamicin Sulfate 0.1% Cr 15 Gm Tube TOPICAL 1 applic TID PRN Administration DIALYSIS CATH. Glucagon 1 mg 03/29/24 07:25 Glucagon For Inj 1 Mg Vial IM PRN PRN Hypoglycemia Protocol Glucose 15 gm 03/29/24 07:25 Glucose Oral Gel 15 Gm Of Glucse In 37.5 Gm Tube PO PRN PRN Hypoglycemia Protocol Dextrose 1,000 mls @ 100 mls/hr 03/29/24 07:25 Dextrose 5% 1,000 Ml IVPB PRN PRN Hypoglycemia Protocol Midodrine 10 mg 04/02/24 17:00 04/02/24 16:41 Midodrine Hcl 2.5 Mg Tablet PO 10 mg TID CARIDAD Administration Miscellaneous Information 1 each 03/29/24 00:01 Ferric Citrate [Auryxia] 210 Mg Iron Tablet Is Nonformulary. Can He Use Home Supply? XX 04/28/24 00:00 CLARIFY CARIDAD Non-Formulary Medication 210 mg 03/29/24 08:00 Ferric Citrate [Auryxia] PO 04/28/24 07:59 TIDWM CARIDAD Nortriptyline HCl 50 mg 03/29/24 21:00 04/01/24 19:54 Nortriptyline Hcl 25 Mg Capsule PO 50 mg HS CARIDAD Administration Ondansetron HCl 4 mg 03/29/24 00:21 03/30/24 09:08 Ondansetron Inj 4 Mg/2 Ml Vial IV PUSH 4 mg Q4H PRN Administration Nausea Pantoprazole Sodium 40 mg 03/29/24 09:00 04/02/24 12:23 Pantoprazole 40 Mg Tablet PO 40 mg QAM CARIDAD Administration Potassium Chloride 40 meq 03/29/24 09:00 04/02/24 09:00 Potassium Chloride 20 Meq Er Tablet PO 40 meq DAILY CARIDAD Administration Torsemide 100 mg 03/29/24 09:00 04/01/24 09:27 Torsemide 20 Mg Tablet PO 100 mg QAM CARIDAD Administration Radiology Results: ITS Impressions Chest X-Ray 03/28/24 17:33 IMPRESSION: Peribronchial thickening with mild pulmonary vascular congestion, without focal infiltrate or effusion. Abdomen/Pelvis CT 03/28/24 21:54 IMPRESSION: No acute intra-abdominal pathology. Innumerable nonacute findings, as detailed above. Head CT 03/29/24 14:57 IMPRESSION: 1. 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 2. Stable moderate nonspecific cerebral white matter disease, which likely represents chronic small vessel ischemic disease. Cervical Spine CT 03/29/24 15:03 IMPRESSION: 1. No fracture 2. Severe cervical spondylosis. Thoracic/Lumbar Spine CT 03/29/24 15:07 IMPRESSION: 1. No fracture. 2. Moderate thoracic and lumbar spondylosis. Labs Labs: Laboratory Tests 04/02/24 05:08 04/02/24 05:08 Calcium 7.7 L Total Bilirubin 0.4 AST 19 ALT 20 Alkaline Phosphatase 118 Total Protein 6.0 L Albumin 3.0 L
[2024-04-02 13:55] LABS: Magnesium 1.4 mg/dL (1.6-2.3)
[2024-04-02] MEDS: SODIUM CHLORIDE 0.9% IV 250 ML 75 ML IV CONT (16:37)
[2024-04-02] MEDS: MAGNESIUM SULF 2 GM/WATER 50ML 2 GM/50 ML BAG IVPB (16:39)
[2024-04-02] MEDS: MIDODRINE HCL 2.5 MG TABLET 10 MG PO (16:41)
--- NOTE | 2024-04-02 17:15 | PC.NURSE ---
Pt has slept a lot today, c/o headache for the whole day & has c/o of feeling poorly all day.
[2024-04-02] MEDS: NORTRIPTYLINE HCL 25 MG CAPSULE 50 MG PO (20:25)
[2024-04-03] VITALS (16 sets, daily range): BP systolic 129–153; BP diastolic 57–108; PULSE 89–109; RESP 17–20; TEMP 36.5–37; O2SAT 95–99
[2024-04-03 06:28] LABS: Basophils Absolute Auto 0.1 K/mm3 (0.0-0.1); Basophils Percent Auto 0.8 % (0.2-1.2); Eosinophils Absolute Auto 0.8 K/mm3 (0-0.3); Eosinophils Percent Auto 8.4 % (0-4.4); Hematocrit 33.8 % (42.0-52.0); Hemoglobin 10.9 g/dL (14.0-18.0); Immature Granulocyte Absolute 0.04 K/mm3 (0.00-0.031); Immature Granulocyte Percent A 0.4 % (0-0.5); Lymphocytes Absolute Auto 1.26 K/mm3 (0.9-3.2); Lymphocytes Percent Auto 13.6 % (18.3-44.2); Mean Corpuscular HGB Conc 32.2 g/dl (32-36); Mean Corpuscular Hemoglobin 31.8 pg (26-34); Mean Corpuscular Volume 98.5 fl (80-100); Mean Platelet Volume 8.9 fl (7.4-10.4); Monocytes Absolute Auto 0.9 K/mm3 (0.1-0.6); Monocytes Percent Auto 10.2 % (2.6-8.5); Neutrophils Absolute Auto 6.2 K/mm3 (1.3-6.7); Neutrophils Percent Auto 66.6 % (45.5-73.1); Platelet Count Result 370 k/mm3 (150-375); Red Blood Count 3.43 M/mm3 (4.6-6.20); Red Cell Distribution Width 12.8 % (11.5-14.5); White Blood Count 9.3 K/mm3 (4.5-10.0)
[2024-04-03 06:41] LABS: Alanine Aminotransferase 21 U/L (6-50); Albumin Level 3.1 g/dL (3.5-5.1); Alkaline Phosphatase 129 U/L (38-126); Anion Gap 17 mmol/L (4-12); Aspartate Amino Transferase 18 U/L (17-59); Bilirubin,Total 0.5 mg/dL (0.2-1.3); Blood Urea Nitrogen 49 mg/dL (9-20); Carbon Dioxide 21 mmol/L (22-30); Chloride 95 mmol/L (98-107); Estimated CRCL calculation 7 ml/min; Estimated Glomerular Filt Rate 4; Glucose 90 mg/dL (65-110); Magnesium 1.9 mg/dL (1.6-2.3); Potassium 4.2 mmol/L (3.4-5.0); Sodium 133 mmol/L (137-145)
--- NOTE | 2024-04-03 07:06 | PM.IMPN ---
Progress Note: A&P Assessment and Plan (1) Fluid overload: Qualifiers: Hypervolemia type: unspecified Qualified Code(s): E87.70 - Fluid overload, unspecified Code(s): E87.70 - Fluid overload, unspecified Status: Acute Assessment and Plan: Patient has missed two peritoneal dialysis appointments 2/2 weakness. BUN/Cr 56/15.49 on admission. - BUN/Cr 51/14.43 on am labs - BNP: 5670 - Chest XR: Peribronchial thickening with mild pulmonary vascular congestion, without focal infiltrate or effusion. - Discontinue torsemide 100 mg daily - Monitor I/O and daily weights - Nephrology consulted, appreciate recommendations (2) Orthostatic hypotension: Code(s): I95.1 - Orthostatic hypotension Status: Acute Assessment and Plan: Orthostatics positive. Patient endorsing dizziness/lightheadedness with position change. Notes that this often occurs prior to his falling. - Continue orthostatic blood pressures q shift - Started on midodrine 10 mg TID - gladis hose - Holding labetalol 100 mg daily - Discontinue torsemide 100 mg daily - neuro consulted, appreciate recommendations - Monitor 04/03: During assessment I performed the orthostatic vital signs and he was noted to be 150s systolic when lying down and 130s systolic with standing. He is still meeting orthostatic criteria, however dizziness/lightheadedness has improved at these pressures. Discussed with nephrology, Dr. Dennis and he is okay with these pressures. (3) Sinus tachycardia: Code(s): R00.0 - Tachycardia, unspecified Status: Acute Assessment and Plan: HR ranging 90-110s. Tele. Holding home labetalol 100 mg BID as patient is having symptomatic orthostatic hypotension Trialed a 250 ml bolus of NS, however HR remains elevated Will give another 250 ml bolus of NS, reassess HR Continue to monitor 04/02: 7 beat run of V tach on telemetry Mg 1.4 on am, given 2g Mg IV x1 Continue to monitor 04/03: Patients heart rate remains stable in the 90s. (4) End-stage renal disease on peritoneal dialysis: Code(s): N18.6 - End stage renal disease; Z99.2 - Dependence on renal dialysis Status: Acute Assessment and Plan: End-stage renal disease on peritoneal dialysis PD schedule per care coordination manager Discontinue torsemide (5) Elevated troponin: Code(s): R79.89 - Other specified abnormal findings of blood chemistry Status: Acute Assessment and Plan: Troponin 0.048, repeat 0.049. Remains flat. Likely secondary to volume overload causing demand ischemia. Patient denying chest pain and palpitations. - EKG sinus tachycardia - Echo 10/09/23: LVEF 55-60% with grade I diastolic dysfunction - Monitor (6) Multiple falls: Code(s): R29.6 - Repeated falls Status: Acute Assessment and Plan: 2 falls where he becomes lightheaded after standing up from his chair. He then goes to walk and his legs give out on him resulting in him falling to the floor. He denies any loss of consciousness and hitting his head. He also denies any tingling/numbness, shooting pain to the lower extremities or loss of bowel/bladder since the fall. Patient is not on any anticoagulation. - Orthostatic blood pressures q shift - Head CT 1. 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 2. Stable moderate nonspecific cerebral white matter disease, which likely represents chronic small vessel ischemic disease. - C/T/L spine CT: No fracture. Severe cervical spine spondylosis. Moderate thoracic/lumbar spondylosis. - PT/OT Recommending home health therapy (7) HTN (hypertension): Code(s): I10 - Essential (primary) hypertension Status: Chronic Assessment and Plan: Chronic - Currently holding labetalol 100 mg BID as patient has positive orthostatic hypotensive - Discontinue torsemide 100 mg daily - Continue to monitor and resume as appropriate (8) Severe protein-calorie malnutrition: Code(s): E43 - Unspecified severe protein-calorie malnutrition Status: Acute Assessment and Plan: Supplement per nutrition Time Spent With Patient Time with patient: 25 - 35 minutes Subjective Date/time seen: 04/03/24 07:06 Interval history: 54 year old male with past medical history of ESRD on peritoneal dialysis, hypertension, and polyneuropathy presents to the hospital for nausea/vomiting, weakness and multiple falls. Patient is pleasant lying comfortably in bed. He states he feels weaker today but has no other complaints denying chest pain, shortness of breath, palpitations, nausea/vomiting and abdominal pain. He was able to walk to the restroom today and said that his dizziness/lightheadedness had improved. During assessment I performed the orthostatic vital signs and he was noted to be 150s systolic when lying down and 130s systolic with standing. He is still meeting orthostatic criteria, however dizziness/lightheadedness has improved at these pressures. Discussed with nephrology, Dr. Dennis and he is okay with these pressures. Patients heart rate remains stable in the 90s. Review of Systems Review of Systems: All systems reviewed & are unremarkable except as noted in HPI and below Exam Narrative: AF HR 96 RR 20 SpO2 96 BP 153/96 General: male in no acute respiratory distress who is nontoxic appearing, sitting up on the side of the bed HEENT: Normocephalic. Atraumatic. Extraocular movement intact. Sclera clear and anicteric. No facial asymmetry. Chest: Lungs are clear to auscultation bilaterally. No wheezes or crackles. CV: Heart was regular rate with regular rhythm. S1/S2. No murmurs, gallops, or rubs. Abd: Abdomen was soft. Nontender. Nondistended. Positive bowel sounds. PD site is nonconcerning for infection. Ext: No clubbing, cyanosis, or edema. 1+ DP pulses bilaterally. Neuro: Patient is alert. Speech is clear. Objective Data Vital Signs Vital Signs: Vital Signs - 24 hr 04/02/24 08:00 04/02/24 09:10 04/02/24 11:10 Temperature 97.7 F Pulse Rate 112 H 96 Respiratory Rate 18 Blood Pressure 96/59 L 134/85 Pulse Oximetry Oxygen Delivery Room Air 04/02/24 11:12 04/02/24 11:14 04/02/24 12:00 Temperature Pulse Rate 110 H 117 H 91 Respiratory Rate Blood Pressure 123/82 96/68 L Pulse Oximetry Oxygen Delivery 04/02/24 13:16 04/02/24 16:00 04/02/24 16:02 Temperature 97.7 F Pulse Rate 112 H 101 H 98 Respiratory Rate 16 Blood Pressure 160/120 H Pulse Oximetry 100 Oxygen Delivery 04/02/24 20:00 04/02/24 20:00 04/02/24 21:00 Temperature 98.0 F Pulse Rate 100 100 87 Respiratory Rate 18 17 Blood Pressure 153/93 H Pulse Oximetry 100 100 Oxygen Delivery Room Air 04/02/24 21:03 04/02/24 21:06 04/02/24 21:06 Temperature 98.0 F 98.0 F 98.0 F Pulse Rate 93 93 100 Respiratory Rate 18 18 18 Blood Pressure 142/97 H 142/97 H 118/90 Pulse Oximetry 100 100 100 Oxygen Delivery 04/03/24 00:00 04/03/24 04:00 04/03/24 05:34 Temperature 98.6 F Pulse Rate 98 92 94 Respiratory Rate 17 Blood Pressure 147/57 H Pulse Oximetry 96 Oxygen Delivery Intake/Output Intake/Output: Intake & Output 03/31/24 04/01/24 04/02/24 04/03/24 23:59 23:59 23:59 23:59 Intake Total 1770 1420 990 120 Output Total 82 792 1109 Balance 1688 628 -119 120 Meds/Results Medications: Active Medications Generic Name Dose Route Start Last Admin Trade Name Freq PRN Reason Stop Dose Admin Acetaminophen 650 mg 03/29/24 07:25 04/02/24 20:29 Acetaminophen 325 Mg Tablet PO 650 mg Q4H PRN Administration Mild Pain (1-3) or Fever Hydrocodone Bitart/Acetaminophen 1 tab 03/30/24 12:41 04/02/24 16:35 Hydrocodone/Acetaminophen (*Crx) 5-325 Mg Tablet PO 1 tab Q8H PRN Administration Pain Rated 6 or Greater Buspirone HCl 10 mg 03/29/24 09:00 04/02/24 16:41 Buspirone Hcl 10 Mg Tablet PO 10 mg TID CARIDAD Administration Calcium Acetate 2,668 mg 03/29/24 08:00 04/02/24 16:41 Calcium Acetate 667 Mg Tablet PO 2,668 mg TIDWM CARIDAD Administration Calcium Carbonate 200 mg 03/29/24 07:14 Calcium Carbonate (Tums) 500 Mg (200 Mg Elemental) PO HS PRN Indigestion Cinacalcet 90 mg 03/29/24 09:00 04/02/24 09:00 Cinacalcet 30 Mg Tablet PO 90 mg DAILY CARIDAD Administration Dextrose 12.5 gm 03/29/24 07:25 Dextrose 50% 25 Gm/50 Ml Syringe IV PUSH PRN PRN Hypoglycemia Protocol Diphenoxylate HCl/Atropine 1 tablet 03/31/24 15:10 04/01/24 19:54 Diphenoxylate/Atropine (*Crx) 2.5 Mg Tablet PO 1 tablet QID PRN Administration diarrhea Enoxaparin Sodium 30 mg 03/30/24 09:00 04/02/24 09:01 Enoxaparin 30 Mg/0.3 Ml Syringe SUB-Q 30 mg DAILY CARIDAD Administration Escitalopram Oxalate 10 mg 03/29/24 09:00 04/02/24 09:00 Escitalopram Oxalate 10 Mg Tablet PO 10 mg DAILY CARIDAD Administration Gabapentin 300 mg 03/29/24 09:00 04/02/24 16:41 Gabapentin 300 Mg Capsule PO 300 mg TID CARIDAD Administration Gentamicin Sulfate 1 applic 03/31/24 15:10 03/31/24 19:40 Gentamicin Sulfate 0.1% Cr 15 Gm Tube TOPICAL 1 applic TID PRN Administration DIALYSIS CATH. Glucagon 1 mg 03/29/24 07:25 Glucagon For Inj 1 Mg Vial IM PRN PRN Hypoglycemia Protocol Glucose 15 gm 03/29/24 07:25 Glucose Oral Gel 15 Gm Of Glucse In 37.5 Gm Tube PO PRN PRN Hypoglycemia Protocol Dextrose 1,000 mls @ 100 mls/hr 03/29/24 07:25 Dextrose 5% 1,000 Ml IVPB PRN PRN Hypoglycemia Protocol Midodrine 10 mg 04/02/24 17:00 04/02/24 16:41 Midodrine Hcl 2.5 Mg Tablet PO 10 mg TID CARIDAD Administration Miscellaneous Information 1 each 03/29/24 00:01 Ferric Citrate [Auryxia] 210 Mg Iron Tablet Is Nonformulary. Can He Use Home Supply? XX 04/28/24 00:00 CLARIFY CARIDAD Non-Formulary Medication 210 mg 03/29/24 08:00 Ferric Citrate [Auryxia] PO 04/28/24 07:59 TIDWM CARIDAD Nortriptyline HCl 50 mg 03/29/24 21:00 04/02/24 20:25 Nortriptyline Hcl 25 Mg Capsule PO 50 mg HS CARIDAD Administration Ondansetron HCl 4 mg 03/29/24 00:21 03/30/24 09:08 Ondansetron Inj 4 Mg/2 Ml Vial IV PUSH 4 mg Q4H PRN Administration Nausea Pantoprazole Sodium 40 mg 03/29/24 09:00 04/02/24 12:23 Pantoprazole 40 Mg Tablet PO 40 mg QAM CARIDAD Administration Potassium Chloride 40 meq 03/29/24 09:00 04/02/24 09:00 Potassium Chloride 20 Meq Er Tablet PO 40 meq DAILY CARIDAD Administration Torsemide 100 mg 03/29/24 09:00 04/01/24 09:27 Torsemide 20 Mg Tablet PO 100 mg QAM CARIDAD Administration Radiology Results: ITS Impressions Chest X-Ray 03/28/24 17:33 IMPRESSION: Peribronchial thickening with mild pulmonary vascular congestion, without focal infiltrate or effusion. Abdomen/Pelvis CT 03/28/24 21:54 IMPRESSION: No acute intra-abdominal pathology. Innumerable nonacute findings, as detailed above. Head CT 03/29/24 14:57 IMPRESSION: 1. 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 2. Stable moderate nonspecific cerebral white matter disease, which likely represents chronic small vessel ischemic disease. Cervical Spine CT 03/29/24 15:03 IMPRESSION: 1. No fracture 2. Severe cervical spondylosis. Thoracic/Lumbar Spine CT 03/29/24 15:07 IMPRESSION: 1. No fracture. 2. Moderate thoracic and lumbar spondylosis. Labs Labs: Laboratory Results - last 24 hr 04/02/24 04/03/24 05:06 06:08 WBC 9.3 RBC 3.43 L Hgb 10.9 L Hct 33.8 L MCV 98.5 MCH 31.8 MCHC 32.2 RDW 12.8 Plt Count 370 MPV 8.9 Immature Gran % (Auto) 0.4 Neut % (Auto) 66.6 Lymph % (Auto) 13.6 L [place] % (Auto) 10.2 H Eos % (Auto) 8.4 H Baso % (Auto) 0.8 Lymph # (Auto) 1.26 [place] # (Auto) 0.9 H Eos # (Auto) 0.8 H Baso # (Auto) 0.1 Abs Immat Gran (auto) 0.04 H Absolute Neuts (auto) 6.2 Absolute Nucleated RBC 0.000 Nucleated RBC % 0.0 Sodium 133 L Potassium 4.2 Chloride 95 L Carbon Dioxide 21 L Anion Gap 17 H BUN 49 H Creatinine 13.71 H Estim Creat Clear Calc 7 Estimated GFR 4 L Glucose 90 Calcium 8.0 L Magnesium 1.4 L 1.9 Total Bilirubin 0.5 AST 18 ALT 21 Alkaline Phosphatase 129 H Total Protein 6.0 L Albumin 3.1 L Quality VTE Prophylaxis VTE prophylaxis: pharmacologic ordered
[2024-04-03] MEDS: ENOXAPARIN 30 MG/0.3 ML SYRINGE SUB-Q (08:59)
[2024-04-03] MEDS: GABAPENTIN 300 MG CAPSULE PO ×3 (09:00→16:48)
[2024-04-03] MEDS: CINACALCET 30 MG TABLET 90 MG PO (09:01)
[2024-04-03] MEDS: busPIRone HCL 10 MG TABLET PO ×3 (09:02→16:48)
[2024-04-03] MEDS: MIDODRINE HCL 2.5 MG TABLET 10 MG PO ×3 (09:02→16:48)
[2024-04-03] MEDS: ESCITALOPRAM OXALATE 10 MG TABLET PO (09:02)
[2024-04-03] MEDS: POTASSIUM CHLORIDE 20 MEQ ER TABLET 40 MEQ PO (09:03)
[2024-04-03] MEDS: ONDANSETRON INJ 4 MG/2 ML VIAL IV PUSH ×2 (09:06→13:20)
--- NOTE | 2024-04-03 11:10 | P.PNNP_ITS ---
Progress Note: A&P Assessment and Plan (1) End stage renal disease: Code(s): N18.6 - End stage renal disease Status: Chronic Assessment and Plan: * continue nightly CCPD * adjust PD Rx as needed * follow electrolytes, volume status, and clearance * replete electrolytes as needed (2) Multiple falls: Code(s): R29.6 - Repeated falls Status: Acute Assessment and Plan: * suspect multifactorial: * deconditioning from recent hospitalization * orthostatic hypotension * continued use of BP medications in the context of relative hypotension * possible autonomic neuropathy(?) * other(?) * CT of head without acute findings: * 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 * stable moderate nonspecific cerebral white matter disease, which likely represents chronic small vessel ischemic disease * holding BP medications * follow orthostatic BP * PT/OT as tolerated (3) Orthostatic hypotension: Code(s): I95.1 - Orthostatic hypotension Status: Acute Assessment and Plan: * clinical improvement noted * as noted by vital signs on admission * on midodrine therapy * follow trend of hemodynamics and symptoms * holding torsemide (4) Fluid overload: Qualifiers: Hypervolemia type: unspecified Qualified Code(s): E87.70 - Fluid overload, unspecified Code(s): E87.70 - Fluid overload, unspecified Status: Acute Assessment and Plan: * known history as noted by recent hospitalization (February 2024) * s/p aggressive PD treatments on last hospitalization with significant ultrafiltration * 8.2L negative by the time of discharge * admission CXR noted: * peribronchial thickening with mild pulmonary vascular congestion without focal infiltrate or effusion * continue fluid removal with PD to optimize volume status * was on torsemide but holding given #3 * follow daily weights and I/Os (5) Hypokalemia: Code(s): E87.6 - Hypokalemia Status: Acute Assessment and Plan: * due to PD and torsemide * on scheduled potassium supplementation * PRN dosing as needed * follow trend of K+ level (6) HTN (hypertension): Code(s): I10 - Essential (primary) hypertension Status: Chronic Assessment and Plan: * complicated by #3 * BP medications on hold * follow trend of hemodynamics (7) Anemia: Code(s): D64.9 - Anemia, unspecified Status: Acute Assessment and Plan: * H/H supratherapeutic for ESRD * holding Epogen * follow trend of H/H (8) Generalized weakness: Code(s): R53.1 - Weakness Status: Acute Assessment and Plan: * suspect related to recent hospitalization/deconditioning in association with prior influenza infection and orthostatic hypotension * PT/OT as tolerated Will continue to follow. Subjective Date/time seen: 04/03/24 11:10 Interval history: Follow-up for end stage renal disease on peritoneal dialysis. Peritoneal dialysis treatment was uneventful last night and tolerated without any issues or problems ([facility]PD supervised and seen at 11:00AM); blood pressure seems to be doing better with midodrine therapy with improvement in lightheadedn ess with ambulation & position change; no apparent distress noted at the time time of my visit. Exam Narrative: General: WD/WN male (who appears older than stated age) in NAD Heart: normal S1 and S2; no rub Lungs: clear anteriorly Abdomen: soft, nontender, nondistended, positive bowel sounds Extremities: no cyanosis or clubbing; trace edema Skin: warm and dry Objective Data Vital Signs Vital Signs: Vital Signs Temp Pulse Resp BP Pulse Ox O2 Del Method 04/03/24 09:06 94 04/03/24 08:03 98 04/03/24 08:00 97.7 F 89 20 148/88 H 96 04/03/24 07:18 98.6 F 94 17 147/57 H 04/03/24 05:34 98.6 F 94 17 147/57 H 96 04/03/24 04:00 92 04/03/24 00:00 98 04/02/24 21:06 98.0 F 100 18 118/90 100 04/02/24 21:06 98.0 F 93 18 142/97 H 100 04/02/24 21:03 98.0 F 93 18 142/97 H 100 04/02/24 21:00 98.0 F 87 17 153/93 H 100 04/02/24 20:00 100 04/02/24 20:00 100 18 100 Room Air Intake/Output Intake/Output: Intake & Output 03/31/24 04/01/24 04/02/24 04/03/24 23:59 23:59 23:59 23:59 Intake Total 1770 1420 990 342 Output Total 82 792 1109 570 Balance 1688 629 -216 -150 Meds/Results Medications: Active Medications Generic Name Dose Route Start Last Admin Trade Name Freq PRN Reason Stop Dose Admin Acetaminophen 650 mg 03/29/24 07:25 04/03/24 12:17 Acetaminophen 325 Mg Tablet PO 650 mg Q4H PRN Administration Mild Pain (1-3) or Fever Hydrocodone Bitart/Acetaminophen 1 tab 03/30/24 12:41 04/03/24 16:46 Hydrocodone/Acetaminophen (*Crx) 5-325 Mg Tablet PO 1 tab Q8H PRN Administration Pain Rated 6 or Greater Buspirone HCl 10 mg 03/29/24 09:00 04/03/24 16:48 Buspirone Hcl 10 Mg Tablet PO 10 mg TID CARIDAD Administration Calcium Acetate 2,668 mg 03/29/24 08:00 04/03/24 16:49 Calcium Acetate 667 Mg Tablet PO 2,668 mg TIDWM CARIDAD Administration Calcium Carbonate 200 mg 03/29/24 07:14 Calcium Carbonate (Tums) 500 Mg (200 Mg Elemental) PO HS PRN Indigestion Cinacalcet 90 mg 03/29/24 09:00 04/03/24 09:01 Cinacalcet 30 Mg Tablet PO 90 mg DAILY CARIDAD Administration Dextrose 12.5 gm 03/29/24 07:25 Dextrose 50% 25 Gm/50 Ml Syringe IV PUSH PRN PRN Hypoglycemia Protocol Diphenoxylate HCl/Atropine 1 tablet 03/31/24 15:10 04/03/24 12:18 Diphenoxylate/Atropine (*Crx) 2.5 Mg Tablet PO 1 tablet QID PRN Administration diarrhea Enoxaparin Sodium 30 mg 03/30/24 09:00 04/03/24 08:59 Enoxaparin 30 Mg/0.3 Ml Syringe SUB-Q 30 mg DAILY CARIDAD Administration Escitalopram Oxalate 10 mg 03/29/24 09:00 04/03/24 09:02 Escitalopram Oxalate 10 Mg Tablet PO 10 mg DAILY CARIDAD Administration Gabapentin 300 mg 02/05/25 09:00 04/03/24 16:48 Gabapentin 300 Mg Capsule PO 300 mg TID CARIDAD Administration Gentamicin Sulfate 1 applic 03/31/24 15:10 03/31/24 19:40 Gentamicin Sulfate 0.1% Cr 15 Gm Tube TOPICAL 1 applic TID PRN Administration DIALYSIS CATH. Glucagon 1 mg 03/29/24 07:25 Glucagon For Inj 1 Mg Vial IM PRN PRN Hypoglycemia Protocol Glucose 15 gm 03/29/24 07:25 Glucose Oral Gel 15 Gm Of Glucse In 37.5 Gm Tube PO PRN PRN Hypoglycemia Protocol Dextrose 1,000 mls @ 100 mls/hr 03/29/24 07:25 Dextrose 5% 1,000 Ml IVPB PRN PRN Hypoglycemia Protocol Midodrine 10 mg 04/02/24 17:00 04/03/24 16:48 Midodrine Hcl 2.5 Mg Tablet PO 10 mg TID CARIDAD Administration Miscellaneous Information 1 each 03/29/24 00:01 Ferric Citrate [Auryxia] 210 Mg Iron Tablet Is Nonformulary. Can He Use Home Supply? XX 04/28/24 00:00 CLARIFY CARIDAD Non-Formulary Medication 210 mg 03/29/24 08:00 Ferric Citrate [Auryxia] PO 04/28/24 07:59 TIDWM CARIDAD Nortriptyline HCl 50 mg 03/29/24 21:00 04/02/24 20:25 Nortriptyline Hcl 25 Mg Capsule PO 50 mg HS CARIDAD Administration Ondansetron HCl 4 mg 03/29/24 00:21 04/03/24 13:20 Ondansetron Inj 4 Mg/2 Ml Vial IV PUSH 4 mg Q4H PRN Administration Nausea Pantoprazole Sodium 40 mg 03/29/24 09:00 04/02/24 12:23 Pantoprazole 40 Mg Tablet PO 40 mg QAM CARIDAD Administration Potassium Chloride 40 meq 03/29/24 09:00 04/03/24 09:03 Potassium Chloride 20 Meq Er Tablet PO 40 meq DAILY CARIDAD Administration Torsemide 100 mg 03/29/24 09:00 04/01/24 09:27 Torsemide 20 Mg Tablet PO 100 mg QAM CARIDAD Administration Radiology Results: ITS Impressions Chest X-Ray 03/28/24 17:33 IMPRESSION: Peribronchial thickening with mild pulmonary vascular congestion, without focal infiltrate or effusion. Abdomen/Pelvis CT 03/28/24 21:54 IMPRESSION: No acute intra-abdominal pathology. Innumerable nonacute findings, as detailed above. Head CT 03/29/24 14:57 IMPRESSION: 1. 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 2. Stable moderate nonspecific cerebral white matter disease, which likely represents chronic small vessel ischemic disease. Cervical Spine CT 03/29/24 15:03 IMPRESSION: 1. No fracture 2. Severe cervical spondylosis. Thoracic/Lumbar Spine CT 03/29/24 15:07 IMPRESSION: 1. No fracture. 2. Moderate thoracic and lumbar spondylosis. Labs Labs: Laboratory Results - last 24 hr 04/03/24 06:08 WBC 9.3 Hgb 10.9 L Hct 33.8 L Plt Count 370 Sodium 133 L Potassium 4.2 Chloride 95 L Carbon Dioxide 21 L Anion Gap 17 H BUN 49 H Creatinine 13.71 H Estim Creat Clear Calc 7 Estimated GFR 4 L Glucose 90 Calcium 8.0 L Magnesium 1.9 Total Bilirubin 0.5 AST 18 ALT 21 Alkaline Phosphatase 129 H Total Protein 6.0 L Albumin 3.1 L
--- NOTE | 2024-04-03 11:26 | PCNFU ---
Nutrition Follow-Up Complete: Severe protein calorie malnutrition related to poor appetite, as evidenced by weight loss -20%/2 months; intakes <50% needs >1 week; moderate muscle wasting to temporalis, clavicles Improve PO intake to 50% meals - Progressing. Intakes mostly 75-100% with one instance of 5% Goal: Pt current nutrition is Renal diet. Declines supplements. Nutrition recommendation: No new recommendations. Continue current nutrition care plan and orders. Agree with orders Last recorded weight is 102.8 kg. Bowel Motility: +2 BMs 04/03/24 Labs Reviewed: Hgb 10.9, Hct 33.8, Alb 3.1, Na 133, GFR 4, BUN 49, Cre 13.71 Meds Noted: Phoslo, protonix, torsemide, Zofran Skin: No skin issues Additional Notes: Appetite overall improved. Still with orthostatic hypotension. Continue with current renal diet. Monitoring intakes, weights, labs, plan of care Follow up in 5 days
--- NOTE | 2024-04-03 11:42 | PCPTNOTE ---
Attempted to see patient for PT, however patient refused due to not feeling well. RN aware. Per patient, he has been getting up and walking to restroom on his own.
[2024-04-03] MEDS: CALCIUM ACETATE 667 MG TABLET 2668 MG PO ×2 (12:16→16:49)
[2024-04-03] MEDS: ACETAMINOPHEN 325 MG TABLET 650 MG PO ×2 (12:17→20:29)
[2024-04-03] MEDS: DIPHENOXYLATE/ATROPINE (*CRX) 2.5 MG TABLET 1 TABLET PO (12:18)
--- NOTE | 2024-04-03 13:43 | PCOTNOTE ---
Attempted to see this afternoon, Patient declined, states he is not feeling well today, states he will try tomorrow .
--- NOTE | 2024-04-03 13:54 | PCPTNOTE ---
Attempted to see patient for PT, however patient declined due to feeling well.
[2024-04-03] MEDS: HYDROcodone/acetaminophen (*CRX) 5-325 MG TABLET 1 TAB PO (16:46)
[2024-04-03] MEDS: NORTRIPTYLINE HCL 25 MG CAPSULE 50 MG PO (20:29)
[2024-04-04] VITALS (13 sets, daily range): BP systolic 106–142; BP diastolic 72–110; PULSE 88–115; RESP 16–20; TEMP 36.4–36.8; O2SAT 94–100
[2024-04-04 06:18] LABS: Magnesium 1.8 mg/dL (1.6-2.3)
[2024-04-04 07:47] LABS: Hematocrit 33.9 % (42.0-52.0); Hemoglobin 11.2 g/dL (14.0-18.0); Mean Corpuscular Hemoglobin 32.7 pg (26-34); Mean Corpuscular Volume 98.8 fl (80-100); Mean Platelet Volume 9.2 fl (7.4-10.4); Platelet Count Result 400 k/mm3 (150-375); Red Blood Count 3.43 M/mm3 (4.6-6.20); Red Cell Distribution Width 13.1 % (11.5-14.5); White Blood Count 9.2 K/mm3 (4.5-10.0)
[2024-04-04 08:08] LABS: Alanine Aminotransferase 19 U/L (6-50); Albumin Level 3.1 g/dL (3.5-5.1); Alkaline Phosphatase 140 U/L (38-126); Anion Gap 14 mmol/L (4-12); Aspartate Amino Transferase 27 U/L (17-59); Bilirubin,Total 0.5 mg/dL (0.2-1.3); Blood Urea Nitrogen 49 mg/dL (9-20); Calcium 8.1 mg/dL (8.4-10.2); Carbon Dioxide 22 mmol/L (22-30); Chloride 97 mmol/L (98-107); Estimated CRCL calculation 7 ml/min; Estimated Glomerular Filt Rate 4; Glucose 94 mg/dL (65-110); Potassium 4.8 mmol/L (3.4-5.0); Sodium 133 mmol/L (137-145)
[2024-04-04] MEDS: ENOXAPARIN 30 MG/0.3 ML SYRINGE SUB-Q (08:57)
[2024-04-04] MEDS: MIDODRINE HCL 2.5 MG TABLET 10 MG PO ×3 (08:58→16:48)
[2024-04-04] MEDS: PANTOPRAZOLE 40 MG TABLET PO (08:58)
[2024-04-04] MEDS: GABAPENTIN 300 MG CAPSULE PO ×3 (08:58→16:47)
[2024-04-04] MEDS: CINACALCET 30 MG TABLET 90 MG PO (08:58)
[2024-04-04] MEDS: busPIRone HCL 10 MG TABLET PO ×3 (08:58→16:48)
[2024-04-04] MEDS: POTASSIUM CHLORIDE 20 MEQ ER TABLET 40 MEQ PO (08:59)
[2024-04-04] MEDS: ESCITALOPRAM OXALATE 10 MG TABLET PO (08:59)
[2024-04-04] MEDS: HYDROcodone/acetaminophen (*CRX) 5-325 MG TABLET 1 TAB PO ×2 (09:09→16:46)
[2024-04-04] MEDS: ONDANSETRON INJ 4 MG/2 ML VIAL IV PUSH ×2 (09:10→23:27)
--- NOTE | 2024-04-04 09:57 | PCOTNOTE ---
The patient treatment was not able to be completed. Patient is working with PT. Will plan to continue treatment per plan of care.
--- NOTE | 2024-04-04 10:20 | P.PNNP_ITS ---
Progress Note: A&P Assessment and Plan (1) End stage renal disease: Code(s): N18.6 - End stage renal disease Status: Chronic Assessment and Plan: * continue nightly CCPD * adjust PD Rx as needed * follow electrolytes, volume status, and clearance * replete electrolytes as needed (2) Multiple falls: Code(s): R29.6 - Repeated falls Status: Acute Assessment and Plan: * suspect multifactorial: * deconditioning from recent hospitalization * orthostatic hypotension * continued use of BP medications in the context of relative hypotension * possible autonomic neuropathy(?) * other(?) * CT of head without acute findings: * 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 * stable moderate nonspecific cerebral white matter disease, which likely represents chronic small vessel ischemic disease * holding BP medications * follow orthostatic BP * PT/OT as tolerated (3) Orthostatic hypotension: Code(s): I95.1 - Orthostatic hypotension Status: Acute Assessment and Plan: * clinical improvement noted * as noted by vital signs on admission * on midodrine therapy * follow trend of hemodynamics and symptoms * holding torsemide (4) Fluid overload: Qualifiers: Hypervolemia type: unspecified Qualified Code(s): E87.70 - Fluid overload, unspecified Code(s): E87.70 - Fluid overload, unspecified Status: Acute Assessment and Plan: * known history as noted by recent hospitalization (February 2024) * s/p aggressive PD treatments on last hospitalization with significant ultrafiltration * 8.2L negative by the time of discharge * admission CXR noted: * peribronchial thickening with mild pulmonary vascular congestion without focal infiltrate or effusion * continue fluid removal with PD to optimize volume status * was on torsemide but holding given #3 * follow daily weights and I/Os (5) Hypokalemia: Code(s): E87.6 - Hypokalemia Status: Acute Assessment and Plan: * due to PD and torsemide * on scheduled potassium supplementation * PRN dosing as needed * follow trend of K+ level (6) HTN (hypertension): Code(s): I10 - Essential (primary) hypertension Status: Chronic Assessment and Plan: * complicated by #3 * BP medications on hold * follow trend of hemodynamics (7) Anemia: Code(s): D64.9 - Anemia, unspecified Status: Acute Assessment and Plan: * H/H supratherapeutic for ESRD * holding Epogen * follow trend of H/H (8) Generalized weakness: Code(s): R53.1 - Weakness Status: Acute Assessment and Plan: * suspect related to recent hospitalization/deconditioning in association with prior influenza infection and orthostatic hypotension * PT/OT as tolerated Will continue to follow. L Subjective Date/time seen: 04/04/24 10:20 Interval history: Follow-up for end stage renal disease on peritoneal dialysis. Peritoneal dialysis treatment was uneventful overnight; blood pressure continues to remains stable with midorine therapy (technically still orthostatic but symptoms are better); states that he does not feel well at the time of my visit -- reports cold/URI symptoms with regard to runny nose, cough, sore throat, and general malaise; no other acute complaints. Exam 2 Narrative: General: WD/WN male in NAD Heart: normal S1 and S2; no rub Lungs: clear anteriorly Abdomen: soft, nontender, nondistended, positive bowel sounds Extremities: no cyanosis or clubbing; trace edema Skin: warm and intact Objective Data Vital Signs Vital Signs: Vital Signs Temp Pulse Resp BP Pulse Ox O2 Del Method 04/04/24 08:59 18 95 Room Air 04/04/24 08:03 109 H 04/04/24 08:00 97.5 F L 108 H 18 142/103 H 95 04/04/24 04:54 98.2 F 108 H 20 124/84 94 04/04/24 04:00 107 H 04/04/24 00:00 104 H 04/03/24 21:35 98.5 F 96 20 146/104 H 95 04/03/24 21:32 98.5 F 106 H 20 133/94 H 99 04/03/24 21:31 98.5 F 103 H 20 129/104 H 99 04/03/24 20:00 96 04/03/24 20:00 96 20 95 Room Air 04/03/24 20:00 98.5 F 96 20 146/104 H 95 04/03/24 16:20 104 H 20 135/93 H 96 04/03/24 16:17 100 20 151/108 H 96 04/03/24 16:15 96 04/03/24 16:15 97.7 F 96 20 153/96 H 96 04/03/24 16:03 109 H 04/03/24 12:01 104 H Intake/Output Intake/Output: Intake & Output 04/01/24 04/02/24 04/03/24 04/04/24 23:59 23:59 23:59 23:59 Intake Total 1420 990 582 480 Output Total 792 1109 570 650 Balance 628 -119 12 -170 Meds/Results Medications: Active Medications Generic Name Dose Route Start Last Admin Trade Name Freq PRN Reason Stop Dose Admin Acetaminophen 650 mg 03/29/24 07:25 04/04/24 11:30 Acetaminophen 325 Mg Tablet PO 650 mg Q4H PRN Administration Mild Pain (1-3) or Fever Hydrocodone Bitart/Acetaminophen 1 tab 03/30/24 12:41 04/04/24 09:09 Hydrocodone/Acetaminophen (*Crx) 5-325 Mg Tablet PO 1 tab Q8H PRN Administration Pain Rated 6 or Greater Buspirone HCl 10 mg 03/29/24 09:00 04/04/24 08:58 Buspirone Hcl 10 Mg Tablet PO 10 mg TID CARIDAD Administration Calcium Acetate 2,668 mg 03/29/24 08:00 04/04/24 11:20 Calcium Acetate 667 Mg Tablet PO 2,668 mg TIDWM CARIDAD Administration Calcium Carbonate 200 mg 03/29/24 07:14 Calcium Carbonate (Tums) 500 Mg (200 Mg Elemental) PO HS PRN Indigestion Cinacalcet 90 mg 03/29/24 09:00 04/04/24 08:58 Cinacalcet 30 Mg Tablet PO 90 mg DAILY CARIDAD Administration Dextrose 12.5 gm 03/29/24 07:25 Dextrose 50% 25 Gm/50 Ml Syringe IV PUSH PRN PRN Hypoglycemia Protocol Diphenoxylate HCl/Atropine 1 tablet 03/31/24 15:10 04/04/24 11:22 Diphenoxylate/Atropine (*Crx) 2.5 Mg Tablet PO 1 tablet QID PRN Administration diarrhea Enoxaparin Sodium 30 mg 03/30/24 09:00 04/04/24 08:57 Enoxaparin 30 Mg/0.3 Ml Syringe SUB-Q 30 mg DAILY CARIDDA Administration Escitalopram Oxalate 10 mg 03/29/24 09:00 04/04/24 08:59 Escitalopram Oxalate 10 Mg Tablet PO 10 mg DAILY CARIDAD Administration Gabapentin 300 mg 03/29/24 09:00 04/04/24 08:58 Gabapentin 300 Mg Capsule PO 300 mg TID CARIDAD Administration Gentamicin Sulfate 1 applic 03/31/24 15:10 03/31/24 19:40 Gentamicin Sulfate 0.1% Cr 15 Gm Tube TOPICAL 1 applic TID PRN Administration DIALYSIS CATH. Glucagon 1 mg 03/29/24 07:25 Glucagon For Inj 1 Mg Vial IM PRN PRN Hypoglycemia Protocol Glucose 15 gm 03/29/24 07:25 Glucose Oral Gel 15 Gm Of Glucse In 37.5 Gm Tube PO PRN PRN Hypoglycemia Protocol Dextrose 1,000 mls @ 100 mls/hr 03/29/24 07:25 Dextrose 5% 1,000 Ml IVPB PRN PRN Hypoglycemia Protocol Metoprolol Tartrate 12.5 mg 04/04/24 21:00 Metoprolol Tartrate 12.5 Mg Tablet PO Q12HR CARIDAD Midodrine 10 mg 04/02/24 17:00 04/04/24 08:58 Midodrine Hcl 2.5 Mg Tablet PO 10 mg TID CARIDAD Administration Nortriptyline HCl 50 mg 03/29/24 21:00 04/03/24 20:29 Nortriptyline Hcl 25 Mg Capsule PO 50 mg HS CARIDAD Administration Ondansetron HCl 4 mg 03/29/24 00:21 04/04/24 09:10 Ondansetron Inj 4 Mg/2 Ml Vial IV PUSH 4 mg Q4H PRN Administration Nausea Pantoprazole Sodium 40 mg 03/29/24 09:00 04/04/24 08:58 Pantoprazole 40 Mg Tablet PO 40 mg QAM CARIDAD Administration Potassium Chloride 40 meq 03/29/24 09:00 04/04/24 08:59 Potassium Chloride 20 Meq Er Tablet PO 40 meq DAILY CARIDAD Administration Torsemide 100 mg 03/29/24 09:00 04/01/24 09:27 Torsemide 20 Mg Tablet PO 100 mg QAM CARIDAD Administration Radiology Results: ITS Impressions Chest X-Ray 03/28/24 17:33 IMPRESSION: Peribronchial thickening with mild pulmonary vascular congestion, without focal infiltrate or effusion. Abdomen/Pelvis CT 03/28/24 21:54 IMPRESSION: No acute intra-abdominal pathology. Innumerable nonacute findings, as detailed above. Head CT 03/29/24 14:57 IMPRESSION: 1. 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 2. Stable moderate nonspecific cerebral white matter disease, which likely represents chronic small vessel ischemic disease. Cervical Spine CT 03/29/24 15:03 IMPRESSION: 1. No fracture 2. Severe cervical spondylosis. Thoracic/Lumbar Spine CT 03/29/24 15:07 IMPRESSION: 1. No fracture. 2. Moderate thoracic and lumbar spondylosis. Labs Labs: Laboratory Tests 04/04/24 05:32 04/04/24 05:32 Calcium 8.1 L Magnesium 1.8 Total Bilirubin 0.5 AST 27 ALT 19 Alkaline Phosphatase 140 H Total Protein 6.0 L Albumin 3.1 L Influenza A (RT-PCR) Influenza B (RT-PCR)
[2024-04-04] MEDS: CALCIUM ACETATE 667 MG TABLET 2668 MG PO ×2 (11:20→16:48)
[2024-04-04] MEDS: DIPHENOXYLATE/ATROPINE (*CRX) 2.5 MG TABLET 1 TABLET PO (11:22)
[2024-04-04] MEDS: ACETAMINOPHEN 325 MG TABLET 650 MG PO (11:30)
--- NOTE | 2024-04-04 12:52 | P.PNIM_ITS ---
Progress Note: A&P Assessment and Plan (1) Fluid overload: Qualifiers: Hypervolemia type: unspecified Qualified Code(s): E87.70 - Fluid overload, unspecified Code(s): E87.70 - Fluid overload, unspecified Status: Acute Assessment and Plan: Patient has missed two peritoneal dialysis appointments 2 weakness. BUN/Cr 56/15.49 on admission. - BUN/Cr 49/12.82 on am labs - BNP: 5670 - Chest XR: Peribronchial thickening with mild pulmonary vascular congestion, without focal infiltrate or effusion. - Discontinue torsemide 100 mg daily - Monitor I/O and daily weights - Nephrology consulted, appreciate recommendations Continue PD nightly (2) Orthostatic hypotension: Code(s): I95.1 - Orthostatic hypotension Status: Acute Assessment and Plan: Orthostatics positive. Patient endorsing dizziness/lightheadedness with position change. Notes that this often occurs prior to his falling. - Continue orthostatic blood pressures q shift - Started on midodrine 10 mg TID - gladis hose - Holding labetalol 100 mg daily - Discontinue torsemide 100 mg daily - neuro consulted, appreciate recommendations - Monitor 04/03: During assessment I performed the orthostatic vital signs and he was noted to be 150s systolic when lying down and 130s systolic with standing. He is still meeting orthostatic criteria, however dizziness/lightheadedness has improved at these pressures. Discussed with nephrology, Dr. Dennis and he is okay with these pressures. 04/04: Patient blood pressures remain stable. He continues to endorse mild lightheadedness but notes that this has much improved since admission. Possible autonomic factors contributing as well. (3) Sinus tachycardia: Code(s): R00.0 - Tachycardia, unspecified Status: Acute Assessment and Plan: HR ranging 90-110s. Tele. Holding home labetalol 100 mg BID as patient is having symptomatic orthostatic hypotension Trialed a 250 ml bolus of NS, however HR remains elevated Will give another 250 ml bolus of NS, reassess HR Continue to monitor 04/02: 7 beat run of V tach on telemetry Mg 1.4 on am, given 2g Mg IV x1 Continue to monitor 04/04: Patient continues to have sinus tach as seen on tele into the 110s. Discussed patient with Dr. Grullon and will trial him on a low dose metoprolol as he was previously on labetalol for sinus tach. Metoprolol 12.5 mg BID Continue tele (4) End-stage renal disease on peritoneal dialysis: Code(s): N18.6 - End stage renal disease; Z99.2 - Dependence on renal dialysis Status: Acute Assessment and Plan: End-stage renal disease on peritoneal dialysis PD schedule per double end sewer Discontinue torsemide (5) Elevated troponin: Code(s): R79.89 - Other specified abnormal findings of blood chemistry Status: Acute Assessment and Plan: Troponin 0.048, repeat 0.049. Remains flat. Likely secondary to volume overload causing demand ischemia. Patient denying chest pain and palpitations. - EKG sinus tachycardia - Echo 10/09/23: LVEF 55-60% with grade I diastolic dysfunction - Monitor (6) Multiple falls: Code(s): R29.6 - Repeated falls Status: Acute Assessment and Plan: 2 falls where he becomes lightheaded after standing up from his chair. He then goes to walk and his legs give out on him resulting in him falling to the floor. He denies any loss of consciousness and hitting his head. He also denies any tingling/numbness, shooting pain to the lower extremities or loss of bowel/bladder since the fall. Patient is not on any anticoagulation. - Orthostatic blood pressures q shift - Head CT 1. 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 2. Stable moderate nonspecific cerebral white matter disease, which likely represents chronic small vessel ischemic disease. - C/T/L spine CT: No fracture. Severe cervical spine spondylosis. Moderate thoracic/lumbar spondylosis. - PT/OT Recommending home health therapy (7) HTN (hypertension): Code(s): I10 - Essential (primary) hypertension Status: Chronic Assessment and Plan: Chronic - Currently holding labetalol 100 mg BID as patient has positive orthostatic hypotensive - Discontinue torsemide 100 mg daily - Continue to monitor and resume as appropriate 04/04: Blood pressures remaining stable on the current midodrine dose. Patient continues to have sinus tach as seen on tele into the 110s. Discussed patient with Dr. Grullon and will trial him on a low dose metoprolol as he was previously on labetalol for sinus tach. Metoprolol 12.5 mg BID Continue tele and monitor blood pressures (8) Severe protein-calorie malnutrition: Code(s): E43 - Unspecified severe protein-calorie malnutrition Status: Acute Assessment and Plan: Supplement per nutrition Time Spent With Patient Time with patient: Greater than 35 minutes Subjective Date/time seen: 04/04/24 12:52 Interval history: 54 year old male with past medical history of ESRD on peritoneal dialysis, hypertension, and polyneuropathy presents to the hospital for nausea/vomiting, weakness and multiple falls. Patient is pleasant lying comfortably in bed. He continues to endorse increased weakness, nausea, and body aches. Repeat viral panel. He continues to endorse intermittent lightheadedness but states that this has much improved since admission and will pass before he ambulates. He continues to be tachycardic into the 110s as seen on telemetry. Discussed patient with Dr. Grullon and will trial him on a low dose metoprolol as he was previously on labetalol for sinus tach. Patient has no other complaints denying chest pain, palpitations, and abdominal pain. Review of Systems Review of Systems: All systems reviewed & are unremarkable except as noted in HPI and below Exam Narrative: AF HR 108 RR 18 SPO2 95 BP 142/103 General: male in no acute respiratory distress who is nontoxic appearing, sitting up on the side of the bed HEENT: Normocephalic. Atraumatic. Extraocular movement intact. Sclera clear and anicteric. No facial asymmetry. Chest: Lungs are clear to auscultation bilaterally. No wheezes or crackles. CV: Heart was regular rate with regular rhythm. S1/S2. No murmurs, gallops, or rubs. Abd: Abdomen was soft. Nontender. Nondistended. Positive bowel sounds. PD site is nonconcerning for infection. Ext: No clubbing, cyanosis, or edema. 1+ DP pulses bilaterally. Neuro: Patient is alert. Speech is clear. Objective Data Vital Signs Vital Signs: Vital Signs - 24 hr 04/03/24 16:03 04/03/24 16:15 04/03/24 16:15 Temperature 97.7 F Pulse Rate 109 H 96 96 Respiratory Rate 20 Blood Pressure 153/96 H Pulse Oximetry 96 Oxygen Delivery 04/03/24 16:17 04/03/24 16:20 04/03/24 20:00 Temperature 98.5 F Pulse Rate 100 104 H 96 Respiratory Rate 20 20 20 Blood Pressure 151/108 H 135/93 H 146/104 H Pulse Oximetry 96 96 95 Oxygen Delivery 04/03/24 20:00 04/03/24 20:00 04/03/24 21:31 Temperature 98.5 F Pulse Rate 96 96 103 H Respiratory Rate 20 20 Blood Pressure 129/104 H Pulse Oximetry 95 99 Oxygen Delivery Room Air 04/03/24 21:32 04/03/24 21:35 04/04/24 00:00 Temperature 98.5 F 98.5 F Pulse Rate 106 H 96 104 H Respiratory Rate 20 20 Blood Pressure 133/94 H 146/104 H Pulse Oximetry 99 95 Oxygen Delivery 04/04/24 04:00 04/04/24 04:54 04/04/24 08:00 Temperature 98.2 F 97.5 F L Pulse Rate 107 H 108 H 108 H Respiratory Rate 20 18 Blood Pressure 124/84 142/103 H Pulse Oximetry 94 95 Oxygen Delivery 04/04/24 08:03 04/04/24 08:59 Temperature Pulse Rate 109 H Respiratory Rate 18 Blood Pressure Pulse Oximetry 95 Oxygen Delivery Room Air Intake/Output Intake/Output: Intake & Output 04/01/24 04/02/24 04/03/24 04/04/24 23:59 23:59 23:59 23:59 Intake Total 1420 990 582 480 Output Total 792 1109 570 650 Balance 587 -119 12 -170 Meds/Results Medications: Active Medications Generic Name Dose Route Start Last Admin Trade Name Freq PRN Reason Stop Dose Admin Acetaminophen 650 mg 03/29/24 07:25 04/04/24 11:30 Acetaminophen 325 Mg Tablet PO 650 mg Q4H PRN Administration Mild Pain (1-3) or Fever Hydrocodone Bitart/Acetaminophen 1 tab 03/30/24 12:41 04/04/24 09:09 Hydrocodone/Acetaminophen (*Crx) 5-325 Mg Tablet PO 1 tab Q8H PRN Administration Pain Rated 6 or Greater Buspirone HCl 10 mg 03/29/24 09:00 04/04/24 12:30 Buspirone Hcl 10 Mg Tablet PO 10 mg TID CARIDAD Administration Calcium Acetate 2,668 mg 03/29/24 08:00 04/04/24 11:20 Calcium Acetate 667 Mg Tablet PO 2,668 mg TIDWM CARIDAD Administration Calcium Carbonate 200 mg 03/29/24 07:14 Calcium Carbonate (Tums) 500 Mg (200 Mg Elemental) PO HS PRN Indigestion Cinacalcet 90 mg 03/29/24 09:00 04/04/24 08:58 Cinacalcet 30 Mg Tablet PO 90 mg DAILY CARIDAD Administration Dextrose 12.5 gm 03/29/24 07:25 Dextrose 50% 25 Gm/50 Ml Syringe IV PUSH PRN PRN Hypoglycemia Protocol Diphenoxylate HCl/Atropine 1 tablet 03/31/24 15:10 04/04/24 11:22 Diphenoxylate/Atropine (*Crx) 2.5 Mg Tablet PO 1 tablet QID PRN Administration diarrhea Enoxaparin Sodium 30 mg 03/30/24 09:00 04/04/24 08:57 Enoxaparin 30 Mg/0.3 Ml Syringe SUB-Q 30 mg DAILY CARIDAD Administration Escitalopram Oxalate 10 mg 03/29/24 09:00 04/04/24 08:59 Escitalopram Oxalate 10 Mg Tablet PO 10 mg DAILY CARIDAD Administration Gabapentin 300 mg 03/29/24 09:00 04/04/24 12:30 Gabapentin 300 Mg Capsule PO 300 mg TID CARIDAD Administration Gentamicin Sulfate 1 applic 03/31/24 15:10 03/31/24 19:40 Gentamicin Sulfate 0.1% Cr 15 Gm Tube TOPICAL 1 applic TID PRN Administration DIALYSIS CATH. Glucagon 1 mg 03/29/24 07:25 Glucagon For Inj 1 Mg Vial IM PRN PRN Hypoglycemia Protocol Glucose 15 gm 03/29/24 07:25 Glucose Oral Gel 15 Gm Of Glucse In 37.5 Gm Tube PO PRN PRN Hypoglycemia Protocol Dextrose 1,000 mls @ 100 mls/hr 03/29/24 07:25 Dextrose 5% 1,000 Ml IVPB PRN PRN Hypoglycemia Protocol Metoprolol Tartrate 12.5 mg 04/04/24 21:00 Metoprolol Tartrate 12.5 Mg Tablet PO Q12HR CARIDAD Midodrine 10 mg 04/02/24 17:00 04/04/24 12:30 Midodrine Hcl 2.5 Mg Tablet PO 10 mg TID CARIDAD Administration Nortriptyline HCl 50 mg 03/29/24 21:00 04/03/24 20:29 Nortriptyline Hcl 25 Mg Capsule PO 50 mg HS CARIDAD Administration Ondansetron HCl 4 mg 03/29/24 00:21 04/04/24 09:10 Ondansetron Inj 4 Mg/2 Ml Vial IV PUSH 4 mg Q4H PRN Administration Nausea Pantoprazole Sodium 40 mg 03/29/24 09:00 04/04/24 08:58 Pantoprazole 40 Mg Tablet PO 40 mg QAM CARIDAD Administration Perflutren Lipid Microsphere 0 ml 04/04/24 12:00 Perflutren Lipid Microspheres 1.5 Ml Vial Diluted To 10 Ml Total Volume IV PUSH 04/07/24 12:00 ONCE PRN adequate visualization Protocol Potassium Chloride 40 meq 03/29/24 09:00 04/04/24 08:59 Potassium Chloride 20 Meq Er Tablet PO 40 meq DAILY CARIDAD Administration Torsemide 100 mg 03/29/24 09:00 04/01/24 09:27 Torsemide 20 Mg Tablet PO 100 mg QAM CARIDAD Administration Radiology Results: ITS Impressions Chest X-Ray 03/28/24 17:33 IMPRESSION: Peribronchial thickening with mild pulmonary vascular congestion, without focal infiltrate or effusion. Abdomen/Pelvis CT 03/28/24 21:54 IMPRESSION: No acute intra-abdominal pathology. Innumerable nonacute findings, as detailed above. Head CT 03/29/24 14:57 IMPRESSION: 1. 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 2. Stable moderate nonspecific cerebral white matter disease, which likely represents chronic small vessel ischemic disease. Cervical Spine CT 03/29/24 15:03 IMPRESSION: 1. No fracture 2. Severe cervical spondylosis. Thoracic/Lumbar Spine CT 03/29/24 15:07 IMPRESSION: 1. No fracture. 2. Moderate thoracic and lumbar spondylosis. Labs Labs: Laboratory Results - last 24 hr 04/04/24 04/04/24 04/04/24 05:32 05:34 11:27 WBC 9.2 RBC 3.43 L Hgb 11.2 L Hct 33.9 L MCV 98.8 MCH 32.7 MCHC 33.0 RDW 13.1 Plt Count 400 H MPV 9.2 Sodium 133 L Potassium 4.8 Chloride 97 L Carbon Dioxide 22 Anion Gap 14 H BUN 49 H Creatinine 12.82 H Estim Creat Clear Calc 7 Estimated GFR 4 L Glucose 94 Calcium 8.1 L Magnesium 1.8 Total Bilirubin 0.5 AST 27 ALT 19 Alkaline Phosphatase 140 H Total Protein 6.0 L Albumin 3.1 L Influenza A (RT-PCR) Negative Influenza B (RT-PCR) Negative Quality VTE Prophylaxis VTE prophylaxis: pharmacologic ordered
[2024-04-04 13:56] LABS: Influenza A QL RT-PCR Negative (Negative); Influenza B QL RT-PCR Negative (Negative); RSV RNA, RT-PCR Negative (Negative); SARS-CoV-2 RNA PCR Negative (Negative)
[2024-04-04] MEDS: GENTAMICIN SULFATE 0.1% CR 15 GM TUBE 1 APPLIC TOPICAL (19:03)
[2024-04-04] MEDS: METOPROLOL TARTRATE 12.5 MG TABLET PO (20:38)
[2024-04-04] MEDS: NORTRIPTYLINE HCL 25 MG CAPSULE 50 MG PO (20:39)
[2024-04-05] VITALS (16 sets, daily range): BP systolic 82–135; BP diastolic 58–98; PULSE 62–105; RESP 14–18; TEMP 36.2–36.6; O2SAT 92–100
--- NOTE | 2024-04-05 | ECHO_ITS ---
Patient Info Name: Real Rolon Age: 54 years : 1970 Gender: Male Ht: 70 in Wt: 224 lbs BSA: 2.27 m2 HR: 95 bpm BP: 111 / 74 mmHg Heart Rhythm: Sinus Rhythm Technical Quality: Good Exam Date: 04/05/2024 11:43 AM Exam Location: Echo Lab Patient Status: Inpatient Admit Date: 03/29/2024 Staff Ordering Physician: Gloria Dennis MD Office Bookkeeper: Cassandra Herrmann RDCS Attending Provider: Kavita Nogueira PA-C Referring Physician: Sonny WALTON; Exam Type: CA echo doppler color flow Study Info Indications - hypotension Complete two-dimensional, color flow and Doppler transthoracic echocardiogram is performed. Summary 1. Complete two-dimensional, color flow and Doppler transthoracic echocardiogram is performed. 2. Left ventricular chamber dimension is moderately enlarged. 3. Left ventricular systolic function is severely globally reduced, estimated at 15-20%. 4. The left ventricular diastolic function is grade I diastolic dysfunction. 5. E/e' 14 is mildly elevated. 6. Left atrial chamber dimension is moderately enlarged. 7. The mitral valve has moderately calcified annulus. 8. There is mild mitral valve regurgitation. Left Ventricle E/e' 14 is mildly elevated. Left ventricular systolic function is severely globally reduced, estimated at 15-20%. Left ventricular chamber dimension is moderately enlarged. The left ventricular diastolic function is grade I diastolic dysfunction. Right Ventricle Right ventricular systolic function is normal and with normal TAPSE 2.0 cm. Right ventricular chamber dimension is normal. Left Atria Left atrial chamber dimension is moderately enlarged. Right Atria Right atrial chamber dimension is normal. Aortic Valve The aortic valve is trileaflet. There is no aortic valve stenosis. There is no aortic valve regurgitation. Pulmonic Valve There is no pulmonic regurgitation. Mitral Valve The mitral valve has moderately calcified annulus. There is no mitral valve stenosis. There is mild mitral valve regurgitation. Tricuspid Valve There is no tricuspid valve regurgitation. Pericardium/Pleural There is no pericardial effusion. Inferior Vena Cava Normal inferior vena cava with >50% collapse upon inspiration consistent with normal right atrial pressure, 5 mmHg. Aorta The aortic root size at the sinus of Valsalva is normal. Left Ventricular Outflow Tract Name Value Normal LVOT 2D LVOT Diameter 2.0 cm LVOT Doppler LVOT Peak Gradient 3 mmHg LVOT Mean Gradient 2 mmHg LVOT VTI 10 cm LVOT VTI/AV VTI Ratio 0.6 LVOT Stroke Volume 33 ml LVOT CO 2.8 l/min LVOT CI 1.3 l/min/m2 Pulmonic Valve Name Value Normal RVOT Doppler RVOT Peak Gradient 1 mmHg PV Doppler PV Peak Gradient 3 mmHg Mitral Valve Name Value Normal MV Doppler MV Decel [place] 757 cm/s2 MV PHT 39 ms MV Area (PHT) 5.6 cm2 4.0-5.0 MV Diastolic Function MV E Peak Velocity 103 cm/s MV A Peak Velocity 137 cm/s MV E/A 0.7 MV Decel Time 136 ms MV Annular TDI MV E/e' (Septal) 15.6 <=8.0 MV E/e' (Lateral) 12.8 <=8.0 MV E/e' (Average) 14.2 Tricuspid Valve Name Value Normal Estimated PAP/RSVP RA Pressure 5 mmHg <=5 Aorta Name Value Normal Ascending Aorta Ao Root Diameter (MM) 3.8 cm Ao Root Diam Index (MM) 1.7 cm/m2 Aortic Valve Name Value Normal AV Doppler AV Peak Velocity 144 cm/s AV Peak Gradient 8 mmHg AV Mean Gradient 4 mmHg AV VTI 18 cm AV Area (Cont Eq VTI) 1.8 cm2 >=3.0 AV Area (Cont Eq Bill) 2.0 cm2 AV Regurgitation 2D LVOT Area 3.2 cm2 Ventricles Name Value Normal LV Dimensions 2D/MM IVS Diastolic Thickness (2D) 1.1 cm 0.6-1.0 LVID Diastole (2D) 6.7 cm 4.2-5.8 LVIW Diastolic Thickness (2D) 1.0 cm 0.6-1.0 LVID Systole (2D) 5.9 cm 2.5-4.0 LVOT Diameter 2.0 cm LV Mass (2D Cubed) 322.07 g 88.00-224.00 LV Mass Index (2D Cubed) 142 g/m2 49-115 Relative Wall Thickness (2D) 0.31 LV Fractional Shortening/Ejection Fraction 2D/MM LV Fractional Shortening (2D) 12 % 25-43 LV EF (2D Teicholz) 26 % 52-72 LV Diastolic Volume (4C MOD) 130 ml LV EF (4C MOD) 24 % LV Diastolic Volume (2C MOD) 136 ml LV EF (2C MOD) 23 % LV Diastolic Volume (BP MOD) 135 ml 62-150 LV Diastolic Volume Index (BP MOD) 60 ml/m2 34-74 LV Systolic Volume (BP MOD) 105 ml 21-61 LV Systolic Volume Index (BP MOD) 46 ml/m2 11-31 LV EF (BP MOD) 23 % 52-72 LV Diastolic Length (4C) 8.9 cm LV Systolic Length (4C) 8.1 cm LV Stroke Volume (4C MOD) 32 ml Atria Name Value Normal LA Dimensions LA Dimension (MM) 4.8 cm 3.0-4.1 LA Volume (4C A-L) 74 ml LA Volume (BP A-L) 82 ml RA Dimensions RA Area (4C) 9.5 cm2 <=18.0 Report Signatures
[2024-04-05 05:54] LABS: Hemoglobin 11.9 g/dL (14.0-18.0); Mean Corpuscular HGB Conc 32.2 g/dl (32-36); Mean Corpuscular Hemoglobin 32.3 pg (26-34); Mean Corpuscular Volume 100.5 fl (80-100); Platelet Count Result 431 k/mm3 (150-375); Red Blood Count 3.68 M/mm3 (4.6-6.20); Red Cell Distribution Width 13.2 % (11.5-14.5); White Blood Count 8.9 K/mm3 (4.5-10.0)
[2024-04-05 06:05] LABS: Alanine Aminotransferase 16 U/L (6-50); Albumin Level 3.2 g/dL (3.5-5.1); Alkaline Phosphatase 150 U/L (38-126); Anion Gap 12 mmol/L (4-12); Aspartate Amino Transferase 17 U/L (17-59); Bilirubin,Total 0.6 mg/dL (0.2-1.3); Blood Urea Nitrogen 51 mg/dL (9-20); Carbon Dioxide 25 mmol/L (22-30); Chloride 96 mmol/L (98-107); Estimated CRCL calculation 7 ml/min; Estimated Glomerular Filt Rate 4; Glucose 93 mg/dL (65-110); Phosphorus 5.5 mg/dL (2.5-4.5); Potassium 5.3 mmol/L (3.4-5.0); Sodium 133 mmol/L (137-145)
[2024-04-05 06:13] LABS: Magnesium 1.9 mg/dL (1.6-2.3)
[2024-04-05 06:36] LABS: Thyroid Stimulating Hormone Reflex 0.642 uIU/mL (0.465-4.68)
[2024-04-05 07:43] LABS: Source Peritoneal Fluid Peritoneal Fluid
[2024-04-05 07:44] LABS: Appearance Peritoneal Fluid Clear (Clear); Color Peritoneal Fluid Colorless (Colorless); Lymphocytes Peritoneal Fluid 63 %; Macrophages Peritoneal Fluid 1 %; Monocytes Peritoneal Fluid 13 %; Neutrophils Peritoneal Fluid 23 % (0-25); Nucleated Cells Peritoneal Flu 10 /uL (0-500); RBC Peritoneal Fluid < 2000 /uL (0-10000)
--- NOTE | 2024-04-05 08:32 | P.PNIM_ITS ---
Progress Note: A&P Assessment and Plan (1) Fluid overload: Qualifiers: Hypervolemia type: unspecified Qualified Code(s): E87.70 - Fluid overload, unspecified Code(s): E87.70 - Fluid overload, unspecified Status: Acute Assessment and Plan: Patient has missed two peritoneal dialysis appointments 2 weakness. BUN/Cr 56/15.49 on admission. - BUN/Cr 49/12.82 on am labs - BNP: 5670 - Chest XR: Peribronchial thickening with mild pulmonary vascular congestion, without focal infiltrate or effusion. - Discontinue torsemide 100 mg daily - Monitor I/O and daily weights - Nephrology consulted, appreciate recommendations Continue PD nightly (2) Orthostatic hypotension: Code(s): I95.1 - Orthostatic hypotension Status: Acute Assessment and Plan: Orthostatics positive. Patient endorsing dizziness/lightheadedness with position change. Notes that this often occurs prior to his falling. - Continue orthostatic blood pressures q shift - Started on midodrine 10 mg TID - gladis hose - Holding labetalol 100 mg daily - Discontinue torsemide 100 mg daily - neuro consulted, appreciate recommendations - Monitor 04/03: During assessment I performed the orthostatic vital signs and he was noted to be 150s systolic when lying down and 130s systolic with standing. He is still meeting orthostatic criteria, however dizziness/lightheadedness has improved at these pressures. Discussed with nephrology, Dr. Dennis and he is okay with these pressures. 04/04: Patient blood pressures remain stable. He continues to endorse mild lightheadedness but notes that this has much improved since admission. Possible autonomic factors contributing as well. 04/05 improved some-continue (3) Sinus tachycardia: Code(s): R00.0 - Tachycardia, unspecified Status: Acute Assessment and Plan: HR ranging 90-110s. Tele. Holding home labetalol 100 mg BID as patient is having symptomatic orthostatic hypotension Trialed a 250 ml bolus of NS, however HR remains elevated Will give another 250 ml bolus of NS, reassess HR Continue to monitor 04/02: 7 beat run of V tach on telemetry Mg 1.4 on am, given 2g Mg IV x1 Continue to monitor 04/04: Patient continues to have sinus tach as seen on tele into the 110s. Discussed patient with Dr. Grullon and will trial him on a low dose metoprolol as he was previously on labetalol for sinus tach. Metoprolol 12.5 mg BID Continue tele 04/05- stable overnight monitor (4) End-stage renal disease on peritoneal dialysis: Code(s): N18.6 - End stage renal disease; Z99.2 - Dependence on renal dialysis Status: Acute Assessment and Plan: End-stage renal disease on peritoneal dialysis PD schedule per cosmetic counselor Discontinue torsemide (5) Elevated troponin: Code(s): R79.89 - Other specified abnormal findings of blood chemistry Status: Acute Assessment and Plan: Troponin 0.048, repeat 0.049. Remains flat. Likely secondary to volume overload causing demand ischemia. Patient denying chest pain and palpitations. - EKG sinus tachycardia - Echo 10/09/23: LVEF 55-60% with grade I diastolic dysfunction - Monitor (6) Multiple falls: Code(s): R29.6 - Repeated falls Status: Acute Assessment and Plan: 2 falls where he becomes lightheaded after standing up from his chair. He then goes to walk and his legs give out on him resulting in him falling to the floor. He denies any loss of consciousness and hitting his head. He also denies any tingling/numbness, shooting pain to the lower extremities or loss of bowel/bladder since the fall. Patient is not on any anticoagulation. - Orthostatic blood pressures q shift - Head CT 1. 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 2. Stable moderate nonspecific cerebral white matter disease, which likely represents chronic small vessel ischemic disease. - C/T/L spine CT: No fracture. Severe cervical spine spondylosis. Moderate thoracic/lumbar spondylosis. - PT/OT Recommending home health therapy (7) HTN (hypertension): Code(s): I10 - Essential (primary) hypertension Status: Chronic Assessment and Plan: Chronic - Currently holding labetalol 100 mg BID as patient has positive orthostatic hypotensive - Discontinue torsemide 100 mg daily - Continue to monitor and resume as appropriate 04/04: Blood pressures remaining stable on the current midodrine dose. Patient continues to have sinus tach as seen on tele into the 110s. Discussed patient with Dr. Grullon and will trial him on a low dose metoprolol as he was pre viously on labetalol for sinus tach. Metoprolol 12.5 mg BID Continue tele and monitor blood pressures (8) Severe protein-calorie malnutrition: Code(s): E43 - Unspecified severe protein-calorie malnutrition Status: Acute Assessment and Plan: Supplement per nutrition Time Spent With Patient Time with patient: 25 - 35 minutes Subjective Date/time seen: 04/05/24 08:32 Interval history: 54 year old male with past medical history of ESRD on peritoneal dialysis, hypertension, and polyneuropathy presents to the hospital for nausea/vomiting, weakness and multiple falls. trial him on a low dose metoprolol as he was previously on labetalol for sinus tach. Patient has no other complaints denying chest pain, palpitations, and abdominal pain. Assuming care- pt is seen and examined. VS reviewed- HR 95. He is not ready to go home today as still feeling lousy . Will restart him home zofran as it usually helps. Review of Systems Review of Systems: All systems reviewed & are unremarkable except as noted in HPI and below Exam Narrative: AF HR 108 RR 18 SPO2 95 BP 142/103 General: male in no acute respiratory distress who is nontoxic appearing, sitting up on the side of the bed HEENT: Normocephalic. Atraumatic. Extraocular movement intact. Sclera clear and anicteric. No facial asymmetry. Chest: Lungs are clear to auscultation bilaterally. No wheezes or crackles. CV: Heart was regular rate with regular rhythm. S1/S2. No murmurs, gallops, or rubs. Abd: Abdomen was soft. Nontender. Nondistended. Positive bowel sounds. PD site is nonconcerning for infection. Ext: No clubbing, cyanosis, or edema. 1+ DP pulses bilaterally. Neuro: Patient is alert. Speech is clear. Objective Data Vital Signs Vital Signs: Vital Signs - 24 hr 04/04/24 08:59 04/04/24 12:00 04/04/24 14:00 Temperature 98.0 F Pulse Rate 104 H 88 Respiratory Rate 18 16 Blood Pressure 106/72 Pulse Oximetry 95 100 Oxygen Delivery Room Air 04/04/24 16:03 04/04/24 20:00 04/04/24 20:00 Temperature 97.6 F Pulse Rate 108 H 105 H Respiratory Rate 20 Blood Pressure 131/110 H Pulse Oximetry 97 Oxygen Delivery Room Air 04/04/24 20:00 04/04/24 20:38 04/04/24 21:25 Temperature 97.6 F Pulse Rate 104 H 108 H 109 H Respiratory Rate 20 Blood Pressure 111/85 Pulse Oximetry 98 Oxygen Delivery 04/04/24 21:26 04/04/24 21:26 04/05/24 00:00 Temperature 97.6 F 97.6 F Pulse Rate 105 H 115 H 97 Respiratory Rate 20 20 Blood Pressure 131/110 H 110/77 Pulse Oximetry 97 98 Oxygen Delivery 04/05/24 04:00 04/05/24 05:11 04/05/24 07:00 Temperature 97.7 F 97.7 F Pulse Rate 99 95 95 Respiratory Rate 18 18 Blood Pressure 111/74 111/74 Pulse Oximetry 92 Oxygen Delivery Intake/Output Intake/Output: Intake & Output 04/02/24 04/03/24 04/04/24 04/05/24 23:59 23:59 23:59 23:59 Intake Total 990 582 840 290 Output Total 1109 570 650 161 Balance -119 12 190 129 Meds/Results Medications: Active Medications Generic Name Dose Route Start Last Admin Trade Name Freq PRN Reason Stop Dose Admin Acetaminophen 650 mg 03/29/24 07:25 04/04/24 11:30 Acetaminophen 325 Mg Tablet PO 650 mg Q4H PRN Administration Mild Pain (1-3) or Fever Hydrocodone Bitart/Acetaminophen 1 tab 03/30/24 12:41 04/04/24 16:46 Hydrocodone/Acetaminophen (*Crx) 5-325 Mg Tablet PO 1 tab Q8H PRN Administration Pain Rated 6 or Greater Buspirone HCl 10 mg 03/29/24 09:00 04/04/24 16:48 Buspirone Hcl 10 Mg Tablet PO 10 mg TID CARIDAD Administration Calcium Acetate 2,668 mg 03/29/24 08:00 04/04/24 16:48 Calcium Acetate 667 Mg Tablet PO 2,668 mg TIDWM CARIDAD Administration Calcium Carbonate 200 mg 03/29/24 07:14 Calcium Carbonate (Tums) 500 Mg (200 Mg Elemental) PO HS PRN Indigestion Cinacalcet 90 mg 03/29/24 09:00 04/04/24 08:58 Cinacalcet 30 Mg Tablet PO 90 mg DAILY CARIDAD Administration Dextrose 12.5 gm 03/29/24 07:25 Dextrose 50% 25 Gm/50 Ml Syringe IV PUSH PRN PRN Hypoglycemia Protocol Diphenoxylate HCl/Atropine 1 tablet 03/31/24 15:10 04/04/24 11:22 Diphenoxylate/Atropine (*Crx) 2.5 Mg Tablet PO 1 tablet QID PRN Administration diarrhea Enoxaparin Sodium 30 mg 03/30/24 09:00 04/04/24 08:57 Enoxaparin 30 Mg/0.3 Ml Syringe SUB-Q 30 mg DAILY CARIDAD Administration Escitalopram Oxalate 10 mg 03/29/24 09:00 04/04/24 08:59 Escitalopram Oxalate 10 Mg Tablet PO 10 mg DAILY CARIDAD Administration Gabapentin 300 mg 03/29/24 09:00 04/04/24 16:47 Gabapentin 300 Mg Capsule PO 300 mg TID CARIDAD Administration Gentamicin Sulfate 1 applic 03/31/24 15:10 04/04/24 19:03 Gentamicin Sulfate 0.1% Cr 15 Gm Tube TOPICAL 1 applic TID PRN Administration DIALYSIS CATH. Glucagon 1 mg 03/29/24 07:25 Glucagon For Inj 1 Mg Vial IM PRN PRN Hypoglycemia Protocol Glucose 15 gm 03/29/24 07:25 Glucose Oral Gel 15 Gm Of Glucse In 37.5 Gm Tube PO PRN PRN Hypoglycemia Protocol Dextrose 1,000 mls @ 100 mls/hr 03/29/24 07:25 Dextrose 5% 1,000 Ml IVPB PRN PRN Hypoglycemia Protocol Metoprolol Tartrate 12.5 mg 04/04/24 21:00 04/04/24 20:38 Metoprolol Tartrate 12.5 Mg Tablet PO 12.5 mg Q12HR CARIDAD Administration Midodrine 10 mg 04/02/24 17:00 04/04/24 16:48 Midodrine Hcl 2.5 Mg Tablet PO 10 mg TID CARIDAD Administration Nortriptyline HCl 50 mg 03/29/24 21:00 04/04/24 20:39 Nortriptyline Hcl 25 Mg Capsule PO 50 mg HS CARIDAD Administration Ondansetron HCl 4 mg 03/29/24 00:21 04/04/24 23:27 Ondansetron Inj 4 Mg/2 Ml Vial IV PUSH 4 mg Q4H PRN Administration Nausea Pantoprazole Sodium 40 mg 03/29/24 09:00 04/04/24 08:58 Pantoprazole 40 Mg Tablet PO 40 mg QAM CARIDAD Administration Perflutren Lipid Microsphere 0 ml 04/04/24 12:00 Perflutren Lipid Microspheres 1.5 Ml Vial Diluted To 10 Ml Total Volume IV PUSH 04/07/24 12:00 ONCE PRN adequate visualization Protocol Potassium Chloride 40 meq 03/29/24 09:00 04/04/24 08:59 Potassium Chloride 20 Meq Er Tablet PO 40 meq DAILY CARIDAD Administration Torsemide 100 mg 03/29/24 09:00 04/01/24 09:27 Torsemide 20 Mg Tablet PO 100 mg QAM CARIDAD Administration Radiology Results: ITS Impressions Chest X-Ray 03/28/24 17:33 IMPRESSION: Peribronchial thickening with mild pulmonary vascular congestion, without focal infiltrate or effusion. Abdomen/Pelvis CT 03/28/24 21:54 IMPRESSION: No acute intra-abdominal pathology. Innumerable nonacute findings, as detailed above. Head CT 03/29/24 14:57 IMPRESSION: 1. 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 2. Stable moderate nonspecific cerebral white matter disease, which likely represents chronic small vessel ischemic disease. Cervical Spine CT 03/29/24 15:03 IMPRESSION: 1. No fracture 2. Severe cervical spondylosis. Thoracic/Lumbar Spine CT 03/29/24 15:07 IMPRESSION: 1. No fracture. 2. Moderate thoracic and lumbar spondylosis. Labs Labs: Laboratory Results - last 24 hr 04/04/24 04/04/24 04/05/24 11:27 13:46 05:28 WBC RBC Hgb Hct MCV MCH MCHC RDW Plt Count MPV Sodium Potassium Chloride Carbon Dioxide Anion Gap BUN Creatinine Estim Creat Clear Calc Estimated GFR Glucose Calcium Phosphorus Magnesium Total Bilirubin AST ALT Alkaline Phosphatase Total Protein Albumin TSH (Reflex) 0.642 Random Cortisol Peritoneal Source Peritoneal Color Peritoneal Appearance Peritoneal RBC Periton Nuc Cells Periton Neutrophils Periton Lymphocytes Peritoneal Monocytes Periton Macrophages Influenza A (RT-PCR) Cancelled Negative Influenza B (RT-PCR) Cancelled Negative RSV (RT-PCR) Negative SARS-CoV-2 RNA (RT-PCR) Negative 04/05/24 04/05/24 05:29 06:50 WBC 8.9 RBC 3.68 L Hgb 11.9 L Hct 37.0 L MCV 100.5 H MCH 32.3 MCHC 32.2 RDW 13.2 Plt Count 431 H MPV 9.0 Sodium 133 L Potassium 5.3 H Chloride 96 L Carbon Dioxide 25 Anion Gap 12 BUN 51 H Creatinine 12.86 H Estim Creat Clear Calc 7 Estimated GFR 4 L Glucose 93 Calcium 8.0 L Phosphorus 5.5 H Magnesium 1.9 Total Bilirubin 0.6 AST 17 ALT 16 Alkaline Phosphatase 150 H Total Protein 6.0 L Albumin 3.2 L TSH (Reflex) Random Cortisol 14.80 Peritoneal Source Peritoneal fluid Peritoneal Color Colorless Peritoneal Appearance Clear Peritoneal RBC < 2000 Periton Nuc Cells 10 Periton Neutrophils 23 Periton Lymphocytes 63 Peritoneal Monocytes 13 Periton Macrophages 1 Influenza A (RT-PCR) Influenza B (RT-PCR) RSV (RT-PCR) SARS-CoV-2 RNA (RT-PCR) Quality VTE Prophylaxis VTE prophylaxis: pharmacologic ordered
[2024-04-05] MEDS: ENOXAPARIN 30 MG/0.3 ML SYRINGE SUB-Q (08:43)
[2024-04-05] MEDS: MIDODRINE HCL 2.5 MG TABLET 10 MG PO ×3 (08:44→17:18)
[2024-04-05] MEDS: METOPROLOL TARTRATE 12.5 MG TABLET PO ×2 (08:44→21:44)
[2024-04-05] MEDS: CINACALCET 30 MG TABLET 90 MG PO (08:44)
[2024-04-05] MEDS: PANTOPRAZOLE 40 MG TABLET PO (08:45)
[2024-04-05] MEDS: busPIRone HCL 10 MG TABLET PO ×3 (08:45→17:19)
[2024-04-05] MEDS: GABAPENTIN 300 MG CAPSULE PO ×3 (08:45→17:18)
[2024-04-05] MEDS: ESCITALOPRAM OXALATE 10 MG TABLET PO (08:45)
[2024-04-05] MEDS: DIPHENOXYLATE/ATROPINE (*CRX) 2.5 MG TABLET 1 TABLET PO ×2 (12:29→21:44)
[2024-04-05] MEDS: ONDANSETRON INJ 4 MG/2 ML VIAL IV PUSH (12:30)
--- NOTE | 2024-04-05 13:07 | P.PNNP_ITS ---
Progress Note: A&P Assessment and Plan (1) End stage renal disease: Code(s): N18.6 - End stage renal disease Status: Chronic Assessment and Plan: * continue nightly CCPD * adjust PD Rx as needed * follow electrolytes, volume status, and clearance * replete electrolytes as needed (2) Multiple falls: Code(s): R29.6 - Repeated falls Status: Acute Assessment and Plan: * suspect multifactorial: * deconditioning from recent hospitalization * orthostatic hypotension * continued use of BP medications in the context of relative hypotension * possible autonomic neuropathy(?) * other(?) * CT of head without acute findings: * 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 * stable moderate nonspecific cerebral white matter disease, which likely represents chronic small vessel ischemic disease * holding BP medications * follow orthostatic BP * PT/OT as tolerated (3) Orthostatic hypotension: Code(s): I95.1 - Orthostatic hypotension Status: Acute Assessment and Plan: * clinical improvement noted * as noted by vital signs on admission * on midodrine therapy * evaluation to date noted: * TSH okay * cortisol reasonable * Echo results noted -- see #4 * follow trend of hemodynamics and symptoms * holding torsemide for now (4) Cardiomyopathy: Code(s): I42.9 - Cardiomyopathy, unspecified Status: Acute Assessment and Plan: * Echo results (on 04/05) noted: * left ventricular systolic function is severely globally reduced, estimated at 15-20% * left ventricular diastolic function is grade I diastolic dysfunction * mitral valve has moderately calcified annulus * mild mitral valve regurgitation * this is a significant change from last Echo in September 2023... * ischemic versus non-ischemic? * is this responsible for hypotension, falls, and generalized weakness on admission?? * Cardiology consult (5) Fluid overload: Qualifiers: Hypervolemia type: unspecified Qualified Code(s): E87.70 - Fluid overload, unspecified Code(s): E87.70 - Fluid overload, unspecified Status: Acute Assessment and Plan: * known history as noted by recent hospitalization (February 2024) * s/p aggressive PD treatments on last hospitalization with significant ultrafiltration * 8.2L negative by the time of discharge * admission CXR noted: * peribronchial thickening with mild pulmonary vascular congestion without focal infiltrate or effusion * continue fluid removal with PD to optimize volume status * was on torsemide but holding given #3 * follow daily weights and I/Os (6) Hypokalemia: Code(s): E87.6 - Hypokalemia Status: Acute Assessment and Plan: * due to PD and torsemide * on scheduled potassium supplementation * PRN dosing as needed * follow trend of K+ level (7) HTN (hypertension): Code(s): I10 - Essential (primary) hypertension Status: Chronic Assessment and Plan: * complicated by #3 * BP medications on hold * follow trend of hemodynamics (8) Anemia: Code(s): D64.9 - Anemia, unspecified Status: Acute Assessment and Plan: * H/H supratherapeutic for ESRD * holding Epogen * restart if Hgb drops < 10 * follow trend of H/H (9) Generalized weakness: Code(s): R53.1 - Weakness Status: Acute Assessment and Plan: * suspect related to recent hospitalization/deconditioning in association with prior influenza infection and orthostatic hypotension * PT/OT as tolerated Will continue to follow. L Subjective Date/time seen: 04/05/24 13:07 Interval history: Follow-up for end stage renal disease on peritoneal dialysis. Tolerated peritoneal dialysis treatment overnight without any issues or problems ([facility]PD supervised and seen at 1:00PM); still reports not feeling good at the time of my visit due to upper URI type symptoms; blood pressure remains stable at this time; no other acute complaints voiced when seen. Exam 2 Narrative: General: WD/WN male in NAD Heart: normal S1 and S2; no rub Lungs: clear anteriorly Abdomen: soft, nontender, nondistended, positive bowel sounds Extremities: no cyanosis or clubbing; trace edema Skin: warm and intact Objective Data Vital Signs Vital Signs: Vital Signs Temp Pulse Resp BP Pulse Ox O2 Del Method 04/05/24 13:00 97.9 F 89 18 135/98 H 94 Room Air 04/05/24 08:44 105 H 04/05/24 08:00 98 04/05/24 07:00 97.7 F 95 18 111/74 04/05/24 05:11 97.7 F 95 18 111/74 92 04/05/24 04:00 99 04/05/24 00:00 97 04/04/24 21:26 97.6 F 115 H 20 110/77 98 04/04/24 21:26 97.6 F 105 H 20 131/110 H 97 04/04/24 21:25 97.6 F 109 H 20 111/85 98 04/04/24 20:38 108 H 04/04/24 20:00 104 H 04/04/24 20:00 97.6 F 105 H 20 131/110 H 97 04/04/24 20:00 Room Air Intake/Output Intake/Output: Intake & Output 04/02/24 04/03/24 04/04/24 04/05/24 23:59 23:59 23:59 23:59 Intake Total 990 582 840 530 Output Total 1109 570 650 161 Balance -119 12 190 369 Meds/Results Medications: Active Medications Generic Name Dose Route Start Last Admin Trade Name Freq PRN Reason Stop Dose Admin Acetaminophen 650 mg 03/29/24 07:25 04/04/24 11:30 Acetaminophen 325 Mg Tablet PO 650 mg Q4H PRN Administration Mild Pain (1-3) or Fever Hydrocodone Bitart/Acetaminophen 1 tab 03/30/24 12:41 04/04/24 16:46 Hydrocodone/Acetaminophen (*Crx) 5-325 Mg Tablet PO 1 tab Q8H PRN Administration Pain Rated 6 or Greater Buspirone HCl 10 mg 03/29/24 09:00 04/05/24 12:29 Buspirone Hcl 10 Mg Tablet PO 10 mg TID CARIDAD Administration Calcium Acetate 2,668 mg 03/29/24 08:00 04/05/24 12:30 Calcium Acetate 667 Mg Tablet PO Not Given TIDWM CARIDAD Calcium Carbonate 200 mg 03/29/24 07:14 Calcium Carbonate (Tums) 500 Mg (200 Mg Elemental) PO HS PRN Indigestion Cinacalcet 90 mg 03/29/24 09:00 04/05/24 08:44 Cinacalcet 30 Mg Tablet PO 90 mg DAILY CARIDAD Administration Dextrose 12.5 gm 03/29/24 07:25 Dextrose 50% 25 Gm/50 Ml Syringe IV PUSH PRN PRN Hypoglycemia Protocol Diphenoxylate HCl/Atropine 1 tablet 03/31/24 15:10 04/05/24 12:29 Diphenoxylate/Atropine (*Crx) 2.5 Mg Tablet PO 1 tablet QID PRN Administration diarrhea Enoxaparin Sodium 30 mg 03/30/24 09:00 04/05/24 08:43 Enoxaparin 30 Mg/0.3 Ml Syringe SUB-Q 30 mg DAILY CARIDAD Administration Escitalopram Oxalate 10 mg 03/29/24 09:00 04/05/24 08:45 Escitalopram Oxalate 10 Mg Tablet PO 10 mg DAILY CARIDAD Administration Gabapentin 300 mg 03/29/24 09:00 04/05/24 12:29 Gabapentin 300 Mg Capsule PO 300 mg TID CARIDAD Administration Gentamicin Sulfate 1 applic 03/31/24 15:10 04/04/24 19:03 Gentamicin Sulfate 0.1% Cr 15 Gm Tube TOPICAL 1 applic TID PRN Administration DIALYSIS CATH. Glucagon 1 mg 03/29/24 07:25 Glucagon For Inj 1 Mg Vial IM PRN PRN Hypoglycemia Protocol Glucose 15 gm 03/29/24 07:25 Glucose Oral Gel 15 Gm Of Glucse In 37.5 Gm Tube PO PRN PRN Hypoglycemia Protocol Dextrose 1,000 mls @ 100 mls/hr 03/29/24 07:25 Dextrose 5% 1,000 Ml IVPB PRN PRN Hypoglycemia Protocol Metoprolol Tartrate 12.5 mg 04/04/24 21:00 04/05/24 08:44 Metoprolol Tartrate 12.5 Mg Tablet PO 12.5 mg Q12HR CARIDAD Administration Midodrine 10 mg 04/02/24 17:00 04/05/24 12:29 Midodrine Hcl 2.5 Mg Tablet PO 10 mg TID CARIDAD Administration Nortriptyline HCl 50 mg 03/29/24 21:00 04/04/24 20:39 Nortriptyline Hcl 25 Mg Capsule PO 50 mg HS CARIDAD Administration Ondansetron HCl 4 mg 03/29/24 00:21 04/05/24 12:30 Ondansetron Inj 4 Mg/2 Ml Vial IV PUSH 4 mg Q4H PRN Administration Nausea Ondansetron HCl 8 mg 04/05/24 12:41 Ondansetron Hcl Odt 4 Mg Tablet SUBLINGUAL Q8H PRN nausea and vomiting Pantoprazole Sodium 40 mg 03/29/24 09:00 04/05/24 08:45 Pantoprazole 40 Mg Tablet PO 40 mg QAM CARIDAD Administration Perflutren Lipid Microsphere 0 ml 04/04/24 12:00 Perflutren Lipid Microspheres 1.5 Ml Vial Diluted To 10 Ml Total Volume IV PUSH 04/07/24 12:00 ONCE PRN adequate visualization Protocol Potassium Chloride 40 meq 03/29/24 09:00 04/04/24 08:59 Potassium Chloride 20 Meq Er Tablet PO 40 meq DAILY CARIDAD Administration Torsemide 100 mg 03/29/24 09:00 04/01/24 09:27 Torsemide 20 Mg Tablet PO 100 mg QAM CARIDAD Administration Radiology Results: ITS Impressions Chest X-Ray 03/28/24 17:33 IMPRESSION: Peribronchial thickening with mild pulmonary vascular congestion, without focal infiltrate or effusion. Abdomen/Pelvis CT 03/28/24 21:54 IMPRESSION: No acute intra-abdominal pathology. Innumerable nonacute findings, as detailed above. Head CT 03/29/24 14:57 IMPRESSION: 1. 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 2. Stable moderate nonspecific cerebral white matter disease, which likely represents chronic small vessel ischemic disease. Cervical Spine CT 03/29/24 15:03 IMPRESSION: 1. No fracture 2. Severe cervical spondylosis. Thoracic/Lumbar Spine CT 03/29/24 15:07 IMPRESSION: 1. No fracture. 2. Moderate thoracic and lumbar spondylosis. Labs Labs: Laboratory Tests 04/05/24 05:29 04/05/24 05:29 Calcium 8.0 L Phosphorus 5.5 H Magnesium 1.9 Total Bilirubin 0.6 AST 17 ALT 16 Alkaline Phosphatase 150 H Total Protein 6.0 L Albumin 3.2 L TSH (Reflex) 0.642 Random Cortisol 14.80 04/05/24 06:50 Peritoneal Source Peritoneal fluid Peritoneal Color Colorless Peritoneal Appearance Clear Peritoneal RBC < 2000 Periton Nuc Cells 10 Periton Neutrophils 23 Periton Lymphocytes 63 Peritoneal Monocytes 13 Periton Macrophages 1 Microbiology 04/05/24 06:50 Peritoneal Fluid Gram Stain - Final
[2024-04-05] MEDS: NORTRIPTYLINE HCL 25 MG CAPSULE 50 MG PO (21:44)
[2024-04-05] MEDS: HYDROcodone/acetaminophen (*CRX) 5-325 MG TABLET 1 TAB PO (21:44)
[2024-04-06] VITALS (14 sets, daily range): BP systolic 79–126; BP diastolic 54–85; PULSE 77–105; RESP 16–18; TEMP 36.8–37.2; O2SAT 92–97
[2024-04-06 05:06] LABS: Hematocrit 35.4 % (42.0-52.0); Hemoglobin 11.2 g/dL (14.0-18.0); Mean Corpuscular HGB Conc 31.6 g/dl (32-36); Mean Corpuscular Hemoglobin 31.9 pg (26-34); Mean Corpuscular Volume 100.9 fl (80-100); Mean Platelet Volume 9.1 fl (7.4-10.4); Platelet Count Result 402 k/mm3 (150-375); Red Blood Count 3.51 M/mm3 (4.6-6.20); Red Cell Distribution Width 13.2 % (11.5-14.5); White Blood Count 7.9 K/mm3 (4.5-10.0)
[2024-04-06 05:13] LABS: Alanine Aminotransferase 15 U/L (6-50); Albumin Level 3.1 g/dL (3.5-5.1); Alkaline Phosphatase 145 U/L (38-126); Anion Gap 14 mmol/L (4-12); Aspartate Amino Transferase 22 U/L (17-59); Bilirubin,Total 0.5 mg/dL (0.2-1.3); Blood Urea Nitrogen 52 mg/dL (9-20); Calcium 7.2 mg/dL (8.4-10.2); Carbon Dioxide 23 mmol/L (22-30); Chloride 96 mmol/L (98-107); Estimated CRCL calculation 7 ml/min; Estimated Glomerular Filt Rate 4; Glucose 84 mg/dL (65-110); Magnesium 1.8 mg/dL (1.6-2.3); Potassium 4.7 mmol/L (3.4-5.0); Sodium 133 mmol/L (137-145)
--- NOTE | 2024-04-06 08:14 | P.PNIM_ITS ---
Progress Note: A&P Assessment and Plan (1) Fluid overload: Qualifiers: Hypervolemia type: unspecified Qualified Code(s): E87.70 - Fluid overload, unspecified Code(s): E87.70 - Fluid overload, unspecified Status: Acute Assessment and Plan: Patient has missed two peritoneal dialysis appointments 2 weakness. BUN/Cr 56/15.49 on admission. - BUN/Cr 49/12.82 on am labs - BNP: 5670 - Chest XR: Peribronchial thickening with mild pulmonary vascular congestion, without focal infiltrate or effusion. - Discontinue torsemide 100 mg daily - Monitor I/O and daily weights - Nephrology consulted, appreciate recommendations Continue PD nightly (2) Orthostatic hypotension: Code(s): I95.1 - Orthostatic hypotension Status: Acute Assessment and Plan: Orthostatics positive. Patient endorsing dizziness/lightheadedness with position change. Notes that this often occurs prior to his falling. - Continue orthostatic blood pressures q shift - Started on midodrine 10 mg TID - gladis hose - Holding labetalol 100 mg daily - Discontinue torsemide 100 mg daily - neuro consulted, appreciate recommendations - Monitor 04/03: During assessment I performed the orthostatic vital signs and he was noted to be 150s systolic when lying down and 130s systolic with standing. He is still meeting orthostatic criteria, however dizziness/lightheadedness has improved at these pressures. Discussed with nephrology, Dr. Dennis and he is okay with these pressures. 04/04: Patient blood pressures remain stable. He continues to endorse mild lightheadedness but notes that this has much improved since admission. Possible autonomic factors contributing as well. 04/05 improved some-continue (3) Sinus tachycardia: Code(s): R00.0 - Tachycardia, unspecified Status: Acute Assessment and Plan: HR ranging 90-110s. Tele. Holding home labetalol 100 mg BID as patient is having symptomatic orthostatic hypotension Trialed a 250 ml bolus of NS, however HR remains elevated Will give another 250 ml bolus of NS, reassess HR Continue to monitor 04/02: 7 beat run of V tach on telemetry Mg 1.4 on am, given 2g Mg IV x1 Continue to monitor 04/04: Patient continues to have sinus tach as seen on tele into the 110s. Discussed patient with Dr. Grullon and will trial him on a low dose metoprolol as he was previously on labetalol for sinus tach. Metoprolol 12.5 mg BID Continue tele 04/05- stable overnight monitor (4) End-stage renal disease on peritoneal dialysis: Code(s): N18.6 - End stage renal disease; Z99.2 - Dependence on renal dialysis Status: Acute Assessment and Plan: End-stage renal disease on peritoneal dialysis PD schedule per health information manager Discontinue torsemide (5) Elevated troponin: Code(s): R79.89 - Other specified abnormal findings of blood chemistry Status: Acute Assessment and Plan: Troponin 0.048, repeat 0.049. Remains flat. Likely secondary to volume overload causing demand ischemia. Patient denying chest pain and palpitations. - EKG sinus tachycardia - Echo 10/09/23: LVEF 55-60% with grade I diastolic dysfunction - Monitor (6) Multiple falls: Code(s): R29.6 - Repeated falls Status: Acute Assessment and Plan: 2 falls where he becomes lightheaded after standing up from his chair. He then goes to walk and his legs give out on him resulting in him falling to the floor. He denies any loss of consciousness and hitting his head. He also denies any tingling/numbness, shooting pain to the lower extremities or loss of bowel/bladder since the fall. Patient is not on any anticoagulation. - Orthostatic blood pressures q shift - Head CT 1. 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 2. Stable moderate nonspecific cerebral white matter disease, which likely represents chronic small vessel ischemic disease. - C/T/L spine CT: No fracture. Severe cervical spine spondylosis. Moderate thoracic/lumbar spondylosis. - PT/OT Recommending home health therapy (7) HTN (hypertension): Code(s): I10 - Essential (primary) hypertension Status: Chronic Assessment and Plan: Chronic - Currently holding labetalol 100 mg BID as patient has positive orthostatic hypotensive - Discontinue torsemide 100 mg daily - Continue to monitor and resume as appropriate 04/04: Blood pressures remaining stable on the current midodrine dose. Patient continues to have sinus tach as seen on tele into the 110s. Discussed patient with Dr. Grullon and will trial him on a low dose metoprolol as he was pre viously on labetalol for sinus tach. Metoprolol 12.5 mg BID Continue tele and monitor blood pressures (8) Severe protein-calorie malnutrition: Code(s): E43 - Unspecified severe protein-calorie malnutrition Status: Acute Assessment and Plan: Supplement per nutrition Time Spent With Patient Time with patient: 25 - 35 minutes Subjective Date/time seen: 04/06/24 08:14 Interval history: Vitals reviewed and remains stable with midodrine therapy (still orthostatic but symptoms are better); states that he does not feel well at the time of my visit -- reports cold/URI symptoms with regard to runny nose, cough, sore throat, and general malaise; no other acute complaints. Review of Systems Review of Systems: All systems reviewed & are unremarkable except as noted in HPI and below Exam Narrative: General: male in no acute respiratory distress who is nontoxic appearing, sitting up on the side of the bed HEENT: Normocephalic. Atraumatic. Extraocular movement intact. Sclera clear and anicteric. No facial asymmetry. Chest: Lungs are clear to auscultation bilaterally. No wheezes or crackles. CV: Heart was regular rate with regular rhythm. S1/S2. No murmurs, gallops, or rubs. Abd: Abdomen was soft. Nontender. Nondistended. Positive bowel sounds. PD site is nonconcerning for infection. Ext: No clubbing, cyanosis, or edema. 1+ DP pulses bilaterally. Neuro: Patient is alert. Speech is clear. Objective Data Vital Signs Vital Signs: Vital Signs - 24 hr 04/05/24 08:44 04/05/24 08:45 04/05/24 12:00 Temperature Pulse Rate 105 H 85 Respiratory Rate Blood Pressure Pulse Oximetry Oxygen Delivery Room Air 04/05/24 14:00 04/05/24 15:38 04/05/24 15:46 Temperature 97.9 F Pulse Rate 89 89 92 Respiratory Rate 18 Blood Pressure 135/98 H 135/98 H 112/85 Pulse Oximetry 94 Oxygen Delivery 04/05/24 15:48 04/05/24 16:00 04/05/24 20:00 Temperature Pulse Rate 90 Respiratory Rate Blood Pressure 100/73 Pulse Oximetry Oxygen Delivery Room Air 04/05/24 20:00 04/05/24 20:00 04/05/24 21:04 Temperature 97.1 F L Pulse Rate 88 62 90 Respiratory Rate 14 14 Blood Pressure 125/87 113/81 Pulse Oximetry 97 100 Oxygen Delivery 04/05/24 21:05 04/05/24 21:44 04/06/24 00:00 Temperature Pulse Rate 91 85 79 Respiratory Rate 16 Blood Pressure 82/58 L Pulse Oximetry 98 Oxygen Delivery 04/06/24 04:00 04/06/24 05:10 Temperature 99 F Pulse Rate 89 89 Respiratory Rate 16 Blood Pressure 107/75 Pulse Oximetry 93 Oxygen Delivery Intake/Output Intake/Output: Intake & Output 04/03/24 04/04/24 04/05/24 04/06/24 23:59 23:59 23:59 23:59 Intake Total 582 840 530 150 Output Total 570 686 750 1816 Balance 12 190 369 -1107 Meds/Results Medications: Active Medications Generic Name Dose Route Start Last Admin Trade Name Freq PRN Reason Stop Dose Admin Acetaminophen 650 mg 03/29/24 07:25 04/04/24 11:30 Acetaminophen 325 Mg Tablet PO 650 mg Q4H PRN Administration Mild Pain (1-3) or Fever Hydrocodone Bitart/Acetaminophen 1 tab 03/30/24 12:41 04/05/24 21:44 Hydrocodone/Acetaminophen (*Crx) 5-325 Mg Tablet PO 1 tab Q8H PRN Administration Pain Rated 6 or Greater Buspirone HCl 10 mg 03/29/24 09:00 04/05/24 17:19 Buspirone Hcl 10 Mg Tablet PO 10 mg TID CARIDAD Administration Calcium Acetate 2,668 mg 03/29/24 08:00 04/05/24 17:17 Calcium Acetate 667 Mg Tablet PO Not Given TIDWM CARIDAD Calcium Carbonate 200 mg 03/29/24 07:14 Calcium Carbonate (Tums) 500 Mg (200 Mg Elemental) PO HS PRN Indigestion Cinacalcet 90 mg 03/29/24 09:00 04/05/24 08:44 Cinacalcet 30 Mg Tablet PO 90 mg DAILY CARIDAD Administration Dextrose 12.5 gm 03/29/24 07:25 Dextrose 50% 25 Gm/50 Ml Syringe IV PUSH PRN PRN Hypoglycemia Protocol Diphenoxylate HCl/Atropine 1 tablet 03/31/24 15:10 04/05/24 21:44 Diphenoxylate/Atropine (*Crx) 2.5 Mg Tablet PO 1 tablet QID PRN Administration diarrhea Enoxaparin Sodium 30 mg 03/30/24 09:00 04/05/24 08:43 Enoxaparin 30 Mg/0.3 Ml Syringe SUB-Q 30 mg DAILY CARIDAD Administration Escitalopram Oxalate 10 mg 03/29/24 09:00 04/05/24 08:45 Escitalopram Oxalate 10 Mg Tablet PO 10 mg DAILY CARIDAD Administration Gabapentin 300 mg 03/29/24 09:00 04/05/24 17:18 Gabapentin 300 Mg Capsule PO 300 mg TID CARIDAD Administration Gentamicin Sulfate 1 applic 03/31/24 15:10 04/04/24 19:03 Gentamicin Sulfate 0.1% Cr 15 Gm Tube TOPICAL 1 applic TID PRN Administration DIALYSIS CATH. Glucagon 1 mg 03/29/24 07:25 Glucagon For Inj 1 Mg Vial IM PRN PRN Hypoglycemia Protocol Glucose 15 gm 03/29/24 07:25 Glucose Oral Gel 15 Gm Of Glucse In 37.5 Gm Tube PO PRN PRN Hypoglycemia Protocol Dextrose 1,000 mls @ 100 mls/hr 03/29/24 07:25 Dextrose 5% 1,000 Ml IVPB PRN PRN Hypoglycemia Protocol Metoprolol Tartrate 12.5 mg 04/04/24 21:00 04/05/24 21:44 Metoprolol Tartrate 12.5 Mg Tablet PO 12.5 mg Q12HR CARIDAD Administration Midodrine 10 mg 04/02/24 17:00 04/05/24 17:18 Midodrine Hcl 2.5 Mg Tablet PO 10 mg TID CARIDAD Administration Nortriptyline HCl 50 mg 03/29/24 21:00 04/05/24 21:44 Nortriptyline Hcl 25 Mg Capsule PO 50 mg HS CARIDAD Administration Ondansetron HCl 4 mg 03/29/24 00:21 04/05/24 12:30 Ondansetron Inj 4 Mg/2 Ml Vial IV PUSH 4 mg Q4H PRN Administration Nausea Ondansetron HCl 8 mg 04/05/24 12:41 Ondansetron Hcl Odt 4 Mg Tablet SUBLINGUAL Q8H PRN nausea and vomiting Pantoprazole Sodium 40 mg 03/29/24 09:00 04/05/24 08:45 Pantoprazole 40 Mg Tablet PO 40 mg QAM CARIDAD Administration Perflutren Lipid Microsphere 0 ml 04/04/24 12:00 Perflutren Lipid Microspheres 1.5 Ml Vial Diluted To 10 Ml Total Volume IV PUSH 04/07/24 12:00 ONCE PRN adequate visualization Protocol Potassium Chloride 40 meq 03/29/24 09:00 04/04/24 08:59 Potassium Chloride 20 Meq Er Tablet PO 40 meq DAILY CARIDAD Administration Torsemide 100 mg 03/29/24 09:00 04/01/24 09:27 Torsemide 20 Mg Tablet PO 100 mg QAM CARIDAD Administration Radiology Results: ITS Impressions Abdomen/Pelvis CT 03/28/24 21:54 IMPRESSION: No acute intra-abdominal pathology. Innumerable nonacute findings, as detailed above. Head CT 03/29/24 14:57 IMPRESSION: 1. 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 2. Stable moderate nonspecific cerebral white matter disease, which likely represents chronic small vessel ischemic disease. Cervical Spine CT 03/29/24 15:03 IMPRESSION: 1. No fracture 2. Severe cervical spondylosis. Thoracic/Lumbar Spine CT 03/29/24 15:07 IMPRESSION: 1. No fracture. 2. Moderate thoracic and lumbar spondylosis. Chest X-Ray 04/06/24 08:02 Impression: Central congestive change and possible minimal bibasilar interstitial edema. Labs Labs: Laboratory Results - last 24 hr 04/06/24 04:41 WBC 7.9 RBC 3.51 L Hgb 11.2 L Hct 35.4 L MCV 100.9 H MCH 31.9 MCHC 31.6 L RDW 13.2 Plt Count 402 H MPV 9.1 Sodium 133 L Potassium 4.7 Chloride 96 L Carbon Dioxide 23 Anion Gap 14 H BUN 52 H Creatinine 13.07 H Estim Creat Clear Calc 7 Estimated GFR 4 L Glucose 84 Calcium 7.2 L Magnesium 1.8 Total Bilirubin 0.5 AST 22 ALT 15 Alkaline Phosphatase 145 H Total Protein 6.0 L Albumin 3.1 L Quality VTE Prophylaxis VTE prophylaxis: pharmacologic ordered
[2024-04-06] MEDS: ACETAMINOPHEN 325 MG TABLET 650 MG PO (08:49)
[2024-04-06] MEDS: MIDODRINE HCL 2.5 MG TABLET 10 MG PO ×3 (08:50→17:16)
[2024-04-06] MEDS: GABAPENTIN 300 MG CAPSULE PO ×3 (08:51→17:16)
[2024-04-06] MEDS: CINACALCET 30 MG TABLET 90 MG PO (08:51)
[2024-04-06] MEDS: ESCITALOPRAM OXALATE 10 MG TABLET PO (08:51)
[2024-04-06] MEDS: PANTOPRAZOLE 40 MG TABLET PO (08:51)
[2024-04-06] MEDS: METOPROLOL TARTRATE 12.5 MG TABLET PO ×2 (08:51→20:32)
[2024-04-06] MEDS: ONDANSETRON HCL ODT 4 MG TABLET 8 MG SUBLINGUAL (08:52)
[2024-04-06] MEDS: ENOXAPARIN 30 MG/0.3 ML SYRINGE SUB-Q (08:52)
[2024-04-06] MEDS: busPIRone HCL 10 MG TABLET PO ×3 (08:52→17:16)
--- NOTE | 2024-04-06 09:30 | PCPTNOTE ---
On 04/06/24, the student, Damian Patel, provided care and completed [facility] documentation on this patient. I have reviewed the student's documentation and agree with the findings.
--- NOTE | 2024-04-06 09:33 | P.CONCA_ITS ---
Assessment and Plan Assessment and plan (1) Cardiomyopathy: Code(s): I42.9 - Cardiomyopathy, unspecified Status: Acute Assessment and Plan: Euvolemic to volume depletion. Unknown cause. Started On Metoprolol, start Losartan 25 mg daily, Jardiance. Discuss life vest to prevent sudden cardiac arrest but he wants to think about it and let us know. Obtain lexiscan myoview stress test. (2) Orthostatic hypotension: Code(s): I95.1 - Orthostatic hypotension Status: Acute Assessment and Plan: On Midodrine. (3) HTN (hypertension): Code(s): I10 - Essential (primary) hypertension Status: Chronic Assessment and Plan: Stable. (4) Peripheral vascular disease: Code(s): I73.9 - Peripheral vascular disease, unspecified Status: Acute Assessment and Plan: Stable. (5) Tobacco abuse: Code(s): Z72.0 - Tobacco use Status: Acute Assessment and Plan: Counseled regarding smoking cessation. History of Present Illness History of Present Illness Consult date/time: 04/06/24 09:33 Reason For Visit: weakness, ESRD on peritoneal dialysis, N/V Narrative: 54 yr old man who is my regular cardiology patient and a patient of Dr. Morrell presented to ER 7 days ago for nausea/vomiting, weakness, falls. He has a history of mild PAD on right leg, diastolic dysfunction, hypertension, dyslipidemia, smoking, ESRD on PD (Since 2021, sees Dr. Marcus). Reports today feeling dizzy and had orthstatic that was positive. An echo done yesterday shows new cardiomyopathy with EF 15-20%. He reports dizziness and headaches currently. Normally he has ABDI walking 100 yards. He has trace edema of both legs that is worse at end of the day. Denies chest pain, sob, orthopnea, PND, palpitations. Cardiovascular Procedures Echo/MUGA:: 12/12/22 Echo: EF 60-65%, mild LVH, diastolic dysfunction (E/e' 18), mod LAE, mild VENU, severe posterior MAC, mild MR, trace TR. Electrophysiology:: 01/20/23 EKG: Sinus rhythm, PAC. Stress Tests:: 11/11/22 JAUN right 1.21, TBI 0.59; left JAUN 1.3, TBI 1.05. Review of Systems 2 Review of Systems: All systems reviewed & are unremarkable except as noted in HPI and below Constitutional: Constitutional: Reports as per HPI, Denies chills, Reports fatigue, Denies fever(s) and Reports frequent falls Cardiovascular: Cardiovascular: Reports as per HPI, Denies chest pain and Denies irregular heart rhythm Respiratory: Respiratory: Reports as per HPI and Reports dyspnea on exertion Gastrointestinal: Gastrointestinal: Reports as per HPI and Denies abdominal pain Genitourinary: Genitourinary: Reports as per HPI and Denies dysuria Musculoskeletal: Musculoskeletal: Reports as per HPI Neurologic: Reports as per HPI, Reports dizziness and Denies syncope [facility] Past Medical History Medical History Peritoneal dialysis catheter in place Polyneuropathy HTN (hypertension) Vitamin D3 deficiency Surgical History Surgical History (Updated 03/29/24 @ 14:21 by Kavita Nogueira PA-C) History of appendectomy Family History Family History Father Hypertension Social History Social History (Updated 03/29/24 @ 14:22 by Kavita Nogueira PA-C) Social History: Lives alone in an apartment. No pets. Smoking packs per day: 1.5 Smoking cigarettes per day: 30.0 Years smoked: 20 Smoking pack-years: 30.00 Smoking status: Former smoker Tobacco type: cigarettes Alcohol intake: current Alcohol use details: rarely Substance use: current Substance use type: marijuana Other substance usage details: OCCASIONAL Do You Feel Safe in your Home?: Yes Lack of Transportation: No Lack of Food: Often True Current Housing: I Have Housing Concerned About Future Housing: No Difficulty Paying Gas/Electric Bills: YES Difficulty Paying for Meds: No Currently Unemployed: No Education: Bachelor's Degree Difficulty w/ Childcare or Family Care: No Living arrangements: with family Occupation/Education: unemployed Gender identity (if verbalized by the patient): Male Sexual Orientation (if Verbalized by the Patient): Straight or Heterosexual Spiritual care concerns: No Agree to blood products: Yes Meds Home Medications and Allergies Home Medications ?Medication ?Instructions ?Recorded ?Confirmed ?Type gentamicin 0.1 % topical cream 1 applic topical TID PRN DIALYSIS 08/31/22 03/29/24 History CATH. calcium carbonate (Tums) 200 mg PO HS PRN Indigestion 07/20/23 03/29/24 History cinacalcet 30 mg tablet 90 mg PO DAILY 07/20/23 03/29/24 History multivitamin 1 tablet PO DAILY 07/29/23 03/29/24 History ferric citrate 210 mg iron tablet 210 mg PO TIDWM 09/28/23 03/29/24 History (Auryxia) potassium chloride 20 mEq 40 meq (2 x 20 mEq) PO DAILY #15 10/12/23 03/29/24 Rx tablet,extended release (K-Tab) tabs gabapentin 300 mg capsule See Rx Instructions .Route 10/26/23 03/29/24 Rx .COMPLEX #270 caps hydrocodone 5 mg-acetaminophen 325 1 tablet PO Q8H PRN Pain Rated 01/31/24 03/29/24 Rx mg tablet 4-10 #90 tabs labetalol 200 mg tablet 100 mg PO BID 02/03/24 03/29/24 History buspirone 10 mg tablet See Rx Instructions .Route 02/14/24 03/29/24 Rx .COMPLEX #90 tabs diphenoxylate-atropine 2.5 1 tablet PO QID PRN diarrhea #60 03/08/24 03/29/24 Rx mg-0.025 mg tablet tabs omeprazole 20 mg capsule,delayed 20 mg PO DAILY #90 caps 03/08/24 03/29/24 Rx release escitalopram oxalate 10 mg tablet 10 mg PO DAILY 03/09/24 03/29/24 History albuterol sulfate 90 mcg/actuation 2 inh inhalation QID PRN shortness 03/29/24 03/29/24 History aerosol inhaler of breath or wheezing calcium acetate(phosphat bind) 667 2,668 mg PO TIDWM 03/29/24 03/29/24 History mg capsule ferric citrate 210 mg iron tablet 210 mg PO TIDWM 03/29/24 03/29/24 History (Auryxia) melatonin 10 mg capsule 10 mg PO HS 03/29/24 03/29/24 History nortriptyline 50 mg capsule 50 mg PO HS 03/29/24 03/29/24 History ondansetron 4 mg disintegrating 8 mg translingual Q8H PRN nausea 03/29/24 03/29/24 History tablet and vomiting torsemide 100 mg tablet 100 mg PO DAILY 03/29/24 03/29/24 History Allergies Allergy/AdvReac Type Severity Reaction Status Date / Time No Known Allergies Allergy Verified 03/28/24 16:42 Vital Signs Vital Signs - 24 hr 04/05/24 12:00 04/05/24 14:00 04/05/24 15:38 Temperature 97.9 F Pulse Rate 85 89 89 Respiratory Rate 18 Blood Pressure 135/98 H 135/98 H Pulse Oximetry 94 Oxygen Delivery 04/05/24 15:46 04/05/24 15:48 04/05/24 16:00 Temperature Pulse Rate 92 90 Respiratory Rate Blood Pressure 112/85 100/73 Pulse Oximetry Oxygen Delivery 04/05/24 20:00 04/05/24 20:00 04/05/24 20:00 Temperature 97.1 F L Pulse Rate 88 62 Respiratory Rate 14 Blood Pressure 125/87 Pulse Oximetry 97 Oxygen Delivery Room Air 04/05/24 21:04 04/05/24 21:05 04/05/24 21:44 Temperature Pulse Rate 90 91 85 Respiratory Rate 14 16 Blood Pressure 113/81 82/58 L Pulse Oximetry 100 98 Oxygen Delivery 04/06/24 00:00 04/06/24 04:00 04/06/24 05:10 Temperature 99 F Pulse Rate 79 89 89 Respiratory Rate 16 Blood Pressure 107/75 Pulse Oximetry 93 Oxygen Delivery 04/06/24 08:51 Temperature Pulse Rate 90 Respiratory Rate Blood Pressure Pulse Oximetry Oxygen Delivery Exam 2 Const: General: cooperative, healthy appearing and comfortable Resp: Auscultation: clear to auscultation bilaterally, no crackles, no rales, no rhonchi and no wheezes Cardio: Rate: regular rate Rhythm: regular rhythm Heart sounds: no murmurs Peripheral pulses: dorsalis pedis present GI: GI Palp: No abdominal tenderness and Yes Soft to palpation Neuro: General: oriented to person, oriented to place and oriented to time Extrem: Right lower extremity: no edema Left lower extremity: no edema Results Labs and Meds 04/06/24 04:41 04/06/24 04:41 Lab results: Cardiac Enzymes 04/06/24 Range/Units 04:41 AST 22 (17-59) U/L CBC 04/06/24 Range/Units 04:41 WBC 7.9 (4.5-10.0) K/mm3 RBC 3.51 L (4.6-6.20) M/mm3 Hgb 11.2 L (14.0-18.0) g/dL Hct 35.4 L (42.0-52.0) % Plt Count 402 H (150-375) k/mm3 Comprehensive Metabolic Panel 04/06/24 Range/Units 04:41 Sodium 133 L (137-145) mmol/L Potassium 4.7 (3.4-5.0) mmol/L Chloride 96 L (98-107) mmol/L Carbon Dioxide 23 (22-30) mmol/L BUN 52 H (9-20) mg/dL Creatinine 13.07 H (0.7-1.3) mg/dL Glucose 84 (65-110) mg/dL Calcium 7.2 L (8.4-10.2) mg/dL AST 22 (17-59) U/L ALT 15 (6-50) U/L Alkaline Phosphatase 145 H (38-126) U/L Total Protein 6.0 L (6.3-8.2) g/dL Albumin 3.1 L (3.5-5.1) g/dL Intake and Output 04/05/24 04/06/24 04/06/24 23:59 07:59 15:59 Intake Total 150 Output Total 1259 Balance -1109 Intake: Oral 150 Output: Peritoneal Dialysis Total Ultra 1259 Filtration Patient Weight 04/06/24 23:59 Weight 102 kg
--- NOTE | 2024-04-06 12:49 | P.PNIM_ITS ---
Progress Note: A&P Assessment and Plan (1) Fluid overload: Qualifiers: Hypervolemia type: unspecified Qualified Code(s): E87.70 - Fluid overload, unspecified Code(s): E87.70 - Fluid overload, unspecified Status: Acute Assessment and Plan: Patient has missed two peritoneal dialysis appointments 2/2 weakness. BUN/Cr 56/15.49 on admission. BNP: 5670 - Chest XR: Peribronchial thickening with mild pulmonary vascular congestion, without focal infiltrate or effusion. Torsemide discontinued due to hypotension and orthostatic - Nephrology consulted, appreciate recommendations Continue PD nightly (2) Orthostatic hypotension: Code(s): I95.1 - Orthostatic hypotension Status: Acute Assessment and Plan: Orthostatics positive. Patient endorsing dizziness/lightheadedness with position change. Notes that this often occurs prior to his falling. - Continue orthostatic blood pressures q shift - Started on midodrine 10 mg TID - gladis hose - Holding labetalol 100 mg daily - Discontinue torsemide 100 mg daily another antihypertensive - neuro consulted, appreciate recommendations - Monitor (3) Sinus tachycardia: Code(s): R00.0 - Tachycardia, unspecified Status: Acute Assessment and Plan: HR ranging 90-110s. Tele. Holding home labetalol 100 mg BID as patient is having symptomatic orthostatic hypotension Trialed a 250 ml bolus of NS, however HR remains elevated Will give another 250 ml bolus of NS, reassess HR Continue to monitor 04/02: 7 beat run of V tach on telemetry Mg 1.4 on am, given 2g Mg IV x1 Continue to monitor Sinus tachycardia has resolved. Small dose of metoprolol (4) End-stage renal disease on peritoneal dialysis: Code(s): N18.6 - End stage renal disease; Z99.2 - Dependence on renal dialysis Status: Acute Assessment and Plan: End-stage renal disease on peritoneal dialysis PD schedule per receptionist doctor's office Discontinue torsemide (5) Elevated troponin: Code(s): R79.89 - Other specified abnormal findings of blood chemistry Status: Acute Assessment and Plan: Troponin 0.048, repeat 0.049. Remains flat. Likely secondary to volume overload causing demand ischemia. Patient denying chest pain and palpitations. - EKG sinus tachycardia - Echo 10/09/23: LVEF 55-60% with grade I diastolic dysfunction Repeat echo with EF down to 15-20% grade 1 diastolic dysfunction. Cardiology has been consulted. Planned stress test in a.m. (6) Multiple falls: Code(s): R29.6 - Repeated falls Status: Acute Assessment and Plan: 2 falls where he becomes lightheaded after standing up from his chair. He then goes to walk and his legs give out on him resulting in him falling to the floor. He denies any loss of consciousness and hitting his head. He also denies any tingling/numbness, shooting pain to the lower extremities or loss of bowel/bladder since the fall. Patient is not on any anticoagulation. - Orthostatic blood pressures q shift - Head CT 1. 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 2. Stable moderate nonspecific cerebral white matter disease, which likely represents chronic small vessel ischemic disease. - C/T/L spine CT: No fracture. Severe cervical spine spondylosis. Moderate thoracic/lumbar spondylosis. - PT/OT Recommending home health therapy (7) HTN (hypertension): Code(s): I10 - Essential (primary) hypertension Status: Chronic Assessment and Plan: Chronic - Currently holding labetalol 100 mg BID as patient has positive orthostatic hypotensive - Discontinue torsemide 100 mg daily - Continue to monitor and resume as appropriate On small dose of metoprolol currently (8) Severe protein-calorie malnutrition: Code(s): E43 - Unspecified severe protein-calorie malnutrition Status: Acute Assessment and Plan: Supplement per nutrition Subjective Date/time seen: 04/06/24 12:49 Interval history: Feels weak. Still orthostatic positive. No swelling. Denies any chest pain. Feeling nauseous. Review of Systems Review of Systems: All systems reviewed & are unremarkable except as noted in HPI and below Exam Narrative: General: male in no acute respiratory distress who is nontoxic appearing HEENT: Normocephalic. Atraumatic. Extraocular movement intact. Sclera clear and anicteric. No facial asymmetry. Chest: Lungs are clear to auscultation bilaterally. No wheezes or crackles. CV: Heart was regular rate with regular rhythm. S1/S2. No murmurs, gallops, or rubs. Abd: Abdomen was soft. Nontender. Nondistended. Positive bowel sounds. PD site is nonconcerning for infection. Ext: No clubbing, cyanosis, or edema. 1+ DP pulses bilaterally. Neuro: Patient is alert. Speech is clear. Objective Data Vital Signs Vital Signs: Vital Signs - 24 hr 04/05/24 14:00 04/05/24 15:38 04/05/24 15:46 Temperature 97.9 F Pulse Rate 89 89 92 Respiratory Rate 18 Blood Pressure 135/98 H 135/98 H 112/85 Pulse Oximetry 94 Oxygen Delivery 04/05/24 15:48 04/05/24 16:00 04/05/24 20:00 Temperature Pulse Rate 90 Respiratory Rate Blood Pressure 100/73 Pulse Oximetry Oxygen Delivery Room Air 04/05/24 20:00 04/05/24 20:00 04/05/24 21:04 Temperature 97.1 F L Pulse Rate 88 62 90 Respiratory Rate 14 14 Blood Pressure 125/87 113/81 Pulse Oximetry 97 100 Oxygen Delivery 04/05/24 21:05 04/05/24 21:44 04/06/24 00:00 Temperature Pulse Rate 91 85 79 Respiratory Rate 16 Blood Pressure 82/58 L Pulse Oximetry 98 Oxygen Delivery 04/06/24 04:00 04/06/24 05:10 04/06/24 08:00 Temperature 99 F Pulse Rate 89 89 89 Respiratory Rate 16 Blood Pressure 107/75 Pulse Oximetry 93 Oxygen Delivery 04/06/24 08:00 04/06/24 08:50 04/06/24 08:51 Temperature Pulse Rate 90 90 Respiratory Rate Blood Pressure 106/75 Pulse Oximetry 95 Oxygen Delivery Room Air 04/06/24 10:58 04/06/24 10:58 Temperature Pulse Rate 93 105 H Respiratory Rate Blood Pressure 96/71 L 79/54 L Pulse Oximetry 96 96 Oxygen Delivery Intake/Output Intake/Output: Intake & Output 04/03/24 04/04/24 04/05/24 04/06/24 23:59 23:59 23:59 23:59 Intake Total 582 840 530 390 Output Total 570 297 286 0575 Balance 12 315 799 -275 Meds/Results Medications: Active Medications Generic Name Dose Route Start Last Admin Trade Name Freq PRN Reason Stop Dose Admin Acetaminophen 650 mg 03/29/24 07:25 04/06/24 08:49 Acetaminophen 325 Mg Tablet PO 650 mg Q4H PRN Administration Mild Pain (1-3) or Fever Hydrocodone Bitart/Acetaminophen 1 tab 03/30/24 12:41 04/05/24 21:44 Hydrocodone/Acetaminophen (*Crx) 5-325 Mg Tablet PO 1 tab Q8H PRN Administration Pain Rated 6 or Greater Buspirone HCl 10 mg 03/29/24 09:00 04/06/24 12:17 Buspirone Hcl 10 Mg Tablet PO 10 mg TID CARIDAD Administration Calcium Acetate 2,668 mg 03/29/24 08:00 04/06/24 12:17 Calcium Acetate 667 Mg Tablet PO Not Given TIDWM CARIDAD Calcium Carbonate 200 mg 03/29/24 07:14 Calcium Carbonate (Tums) 500 Mg (200 Mg Elemental) PO HS PRN Indigestion Cinacalcet 90 mg 03/29/24 09:00 04/06/24 08:51 Cinacalcet 30 Mg Tablet PO 90 mg DAILY CARIDAD Administration Dextrose 12.5 gm 03/29/24 07:25 Dextrose 50% 25 Gm/50 Ml Syringe IV PUSH PRN PRN Hypoglycemia Protocol Diphenoxylate HCl/Atropine 1 tablet 03/31/24 15:10 04/05/24 21:44 Diphenoxylate/Atropine (*Crx) 2.5 Mg Tablet PO 1 tablet QID PRN Administration diarrhea Empagliflozin 10 mg 04/07/24 09:00 Empagliflozin 10 Mg Tablet PO DAILY [facility] Enoxaparin Sodium 30 mg 03/30/24 09:00 04/06/24 08:52 Enoxaparin 30 Mg/0.3 Ml Syringe SUB-Q 30 mg DAILY CARIDAD Administration Escitalopram Oxalate 10 mg 03/29/24 09:00 04/06/24 08:51 Escitalopram Oxalate 10 Mg Tablet PO 10 mg DAILY CARIDAD Administration Gabapentin 300 mg 03/29/24 09:00 04/06/24 12:17 Gabapentin 300 Mg Capsule PO 300 mg TID CARIDAD Administration Gentamicin Sulfate 1 applic 03/31/24 15:10 04/04/24 19:03 Gentamicin Sulfate 0.1% Cr 15 Gm Tube TOPICAL 1 applic TID PRN Administration DIALYSIS CATH. Glucagon 1 mg 03/29/24 07:25 Glucagon For Inj 1 Mg Vial IM PRN PRN Hypoglycemia Protocol Glucose 15 gm 03/29/24 07:25 Glucose Oral Gel 15 Gm Of Glucse In 37.5 Gm Tube PO PRN PRN Hypoglycemia Protocol Dextrose 1,000 mls @ 100 mls/hr 03/29/24 07:25 Dextrose 5% 1,000 Ml IVPB PRN PRN Hypoglycemia Protocol Losartan Potassium 25 mg 04/07/24 09:00 Losartan Potassium 25 Mg Tablet PO DAILY CARIDAD Metoprolol Tartrate 12.5 mg 04/04/24 21:00 04/06/24 08:51 Metoprolol Tartrate 12.5 Mg Tablet PO 12.5 mg Q12HR CARIDAD Administration Midodrine 10 mg 04/02/24 17:00 04/06/24 12:17 Midodrine Hcl 2.5 Mg Tablet PO 10 mg TID CARIDAD Administration Nortriptyline HCl 50 mg 03/29/24 21:00 04/05/24 21:44 Nortriptyline Hcl 25 Mg Capsule PO 50 mg HS CARIDAD Administration Ondansetron HCl 4 mg 03/29/24 00:21 04/05/24 12:30 Ondansetron Inj 4 Mg/2 Ml Vial IV PUSH 4 mg Q4H PRN Administration Nausea Ondansetron HCl 8 mg 04/05/24 12:41 04/06/24 08:52 Ondansetron Hcl Odt 4 Mg Tablet SUBLINGUAL 8 mg Q8H PRN Administration nausea and vomiting Pantoprazole Sodium 40 mg 03/29/24 09:00 04/06/24 08:51 Pantoprazole 40 Mg Tablet PO 40 mg QAM CARIDAD Administration Perflutren Lipid Microsphere 0 ml 04/04/24 12:00 Perflutren Lipid Microspheres 1.5 Ml Vial Diluted To 10 Ml Total Volume IV PUSH 04/07/24 12:00 ONCE PRN adequate visualization Protocol Potassium Chloride 40 meq 03/29/24 09:00 04/04/24 08:59 Potassium Chloride 20 Meq Er Tablet PO 40 meq DAILY CARIDAD Administration Torsemide 100 mg 03/29/24 09:00 04/01/24 09:27 Torsemide 20 Mg Tablet PO 100 mg QAM CARIDAD Administration Radiology Results: ITS Impressions Abdomen/Pelvis CT 03/28/24 21:54 IMPRESSION: No acute intra-abdominal pathology. Innumerable nonacute findings, as detailed above. Head CT 03/29/24 14:57 IMPRESSION: 1. 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 2. Stable moderate nonspecific cerebral white matter disease, which likely represents chronic small vessel ischemic disease. Cervical Spine CT 03/29/24 15:03 IMPRESSION: 1. No fracture 2. Severe cervical spondylosis. Thoracic/Lumbar Spine CT 03/29/24 15:07 IMPRESSION: 1. No fracture. 2. Moderate thoracic and lumbar spondylosis. Chest X-Ray 04/06/24 08:02 Impression: Central congestive change and possible minimal bibasilar interstitial edema. Labs Labs: Laboratory Results - last 24 hr 04/06/24 04:41 WBC 7.9 RBC 3.51 L Hgb 11.2 L Hct 35.4 L MCV 100.9 H MCH 31.9 MCHC 31.6 L RDW 13.2 Plt Count 402 H MPV 9.1 Sodium 133 L Potassium 4.7 Chloride 96 L Carbon Dioxide 23 Anion Gap 14 H BUN 52 H Creatinine 13.07 H Estim Creat Clear Calc 7 Estimated GFR 4 L Glucose 84 Calcium 7.2 L Magnesium 1.8 Total Bilirubin 0.5 AST 22 ALT 15 Alkaline Phosphatase 145 H Total Protein 6.0 L Albumin 3.1 L
--- NOTE | 2024-04-06 13:27 | P.PNNP_ITS ---
Progress Note: A&P Assessment and Plan (1) End stage renal disease: Code(s): N18.6 - End stage renal disease Status: Chronic Assessment and Plan: * continue nightly CCPD * adjust PD Rx as needed * follow electrolytes, volume status, and clearance * replete electrolytes as needed (2) Multiple falls: Code(s): R29.6 - Repeated falls Status: Acute Assessment and Plan: * suspect multifactorial: * deconditioning from recent hospitalization * orthostatic hypotension * continued use of BP medications in the context of relative hypotension * possible autonomic neuropathy(?) * other(?) * CT of head without acute findings: * 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 * stable moderate nonspecific cerebral white matter disease, which likely represents chronic small vessel ischemic disease * holding BP medications * follow orthostatic BP * PT/OT as tolerated (3) Orthostatic hypotension: Code(s): I95.1 - Orthostatic hypotension Status: Acute Assessment and Plan: * clinical improvement noted * as noted by vital signs on admission * on midodrine therapy * evaluation to date noted: * TSH okay * cortisol reasonable * Echo results noted -- see #4 * follow trend of hemodynamics and symptoms * holding torsemide for now (4) Cardiomyopathy: Code(s): I42.9 - Cardiomyopathy, unspecified Status: Acute Assessment and Plan: * Echo results (on 04/05) noted: * left ventricular systolic function is severely globally reduced, estimated at 15-20% * left ventricular diastolic function is grade I diastolic dysfunction * mitral valve has moderately calcified annulus * mild mitral valve regurgitation * this is a significant change from last Echo in September 2023... * ischemic versus non-ischemic? * is this responsible for hypotension, falls, and generalized weakness on admission?? * Cardiology recommendations noted (5) Fluid overload: Qualifiers: Hypervolemia type: unspecified Qualified Code(s): E87.70 - Fluid overload, unspecified Code(s): E87.70 - Fluid overload, unspecified Status: Acute Assessment and Plan: * known history as noted by recent hospitalization (February 2024) * s/p aggressive PD treatments on last hospitalization with significant ultrafiltration * 8.2L negative by the time of discharge * admission CXR noted: * peribronchial thickening with mild pulmonary vascular congestion without focal infiltrate or effusion * most recent CXR results noted * continue fluid removal with PD to optimize volume status * was on torsemide but holding given #3 * follow daily weights and I/Os (6) Hypokalemia: Code(s): E87.6 - Hypokalemia Status: Acute Assessment and Plan: * due to PD and torsemide * on scheduled potassium supplementation * PRN dosing as needed * follow trend of K+ level (7) HTN (hypertension): Code(s): I10 - Essential (primary) hypertension Status: Chronic Assessment and Plan: * complicated by #3 * BP medications on hold * follow trend of hemodynamics (8) Anemia: Code(s): D64.9 - Anemia, unspecified Status: Acute Assessment and Plan: * H/H supratherapeutic for ESRD * holding Epogen * restart if Hgb drops < 10 * follow trend of H/H (9) Generalized weakness: Code(s): R53.1 - Weakness Status: Acute Assessment and Plan: * suspect related to recent hospitalization/deconditioning in association with prior influenza infection and orthostatic hypotension * PT/OT as tolerated Will continue to follow. L Subjective Date/time seen: 04/06/24 13:27 Interval history: Follow-up for end stage renal disease on peritoneal dialysis. Blood pressure better but still with orthostatic symptoms (lightheadedness with positional change) in association with generalized weakness; seen by Cardiology earlier today regarding new cardiomyopathy as noted by recent Echo; no acute distress noted; tolerated CCPD treatment overnight without any issues. Exam 2 Narrative: General: WD/WN male in NAD Heart: normal S1 and S2; no rub Lungs: clear anteriorly Abdomen: soft, nontender, nondistended, positive bowel sounds Extremities: no cyanosis or clubbing; trace edema Skin: no rash Objective Data Vital Signs Vital Signs: Vital Signs Temp Pulse Resp BP Pulse Ox O2 Del Method 04/06/24 13:00 98.2 F 89 18 126/85 95 04/06/24 12:00 77 04/06/24 10:58 105 H 79/54 L 96 04/06/24 10:58 93 96/71 L 96 04/06/24 08:51 90 04/06/24 08:50 Room Air 04/06/24 08:00 90 106/75 95 04/06/24 08:00 89 04/06/24 05:10 99 F 89 16 107/75 93 04/06/24 04:00 89 04/06/24 00:00 79 04/05/24 21:44 85 04/05/24 21:05 91 16 82/58 L 98 04/05/24 21:04 90 14 113/81 100 04/05/24 20:00 62 04/05/24 20:00 97.1 F L 88 14 125/87 97 04/05/24 20:00 Room Air 04/05/24 16:00 90 Intake/Output Intake/Output: Intake & Output 04/03/24 04/04/24 04/05/24 04/06/24 23:59 23:59 23:59 23:59 Intake Total 582 840 530 390 Output Total 570 799 843 2000 Balance 12 190 369 -869 Meds/Results Medications: Active Medications Generic Name Dose Route Start Last Admin Trade Name Freq PRN Reason Stop Dose Admin Acetaminophen 650 mg 03/29/24 07:25 04/06/24 08:49 Acetaminophen 325 Mg Tablet PO 650 mg Q4H PRN Administration Mild Pain (1-3) or Fever Hydrocodone Bitart/Acetaminophen 1 tab 03/30/24 12:41 04/05/24 21:44 Hydrocodone/Acetaminophen (*Crx) 5-325 Mg Tablet PO 1 tab Q8H PRN Administration Pain Rated 6 or Greater Buspirone HCl 10 mg 03/29/24 09:00 04/06/24 12:17 Buspirone Hcl 10 Mg Tablet PO 10 mg TID CARIDAD Administration Calcium Acetate 2,668 mg 03/29/24 08:00 04/06/24 12:17 Calcium Acetate 667 Mg Tablet PO Not Given TIDWM CARIDAD Calcium Carbonate 200 mg 03/29/24 07:14 Calcium Carbonate (Tums) 500 Mg (200 Mg Elemental) PO HS PRN Indigestion Cinacalcet 90 mg 03/29/24 09:00 04/06/24 08:51 Cinacalcet 30 Mg Tablet PO 90 mg DAILY CARIDAD Administration Dextrose 12.5 gm 03/29/24 07:25 Dextrose 50% 25 Gm/50 Ml Syringe IV PUSH PRN PRN Hypoglycemia Protocol Diphenoxylate HCl/Atropine 1 tablet 03/31/24 15:10 04/05/24 21:44 Diphenoxylate/Atropine (*Crx) 2.5 Mg Tablet PO 1 tablet QID PRN Administration diarrhea Empagliflozin 10 mg 04/07/24 09:00 Empagliflozin 10 Mg Tablet PO DAILY [facility] Enoxaparin Sodium 30 mg 03/30/24 09:00 04/06/24 08:52 Enoxaparin 30 Mg/0.3 Ml Syringe SUB-Q 30 mg DAILY CARIDAD Administration Escitalopram Oxalate 10 mg 03/29/24 09:00 04/06/24 08:51 Escitalopram Oxalate 10 Mg Tablet PO 10 mg DAILY CARIDAD Administration Gabapentin 300 mg 03/29/24 09:00 04/06/24 12:17 Gabapentin 300 Mg Capsule PO 300 mg TID CARIDAD Administration Gentamicin Sulfate 1 applic 03/31/24 15:10 04/04/24 19:03 Gentamicin Sulfate 0.1% Cr 15 Gm Tube TOPICAL 1 applic TID PRN Administration DIALYSIS CATH. Glucagon 1 mg 03/29/24 07:25 Glucagon For Inj 1 Mg Vial IM PRN PRN Hypoglycemia Protocol Glucose 15 gm 03/29/24 07:25 Glucose Oral Gel 15 Gm Of Glucse In 37.5 Gm Tube PO PRN PRN Hypoglycemia Protocol Dextrose 1,000 mls @ 100 mls/hr 03/29/24 07:25 Dextrose 5% 1,000 Ml IVPB PRN PRN Hypoglycemia Protocol Losartan Potassium 25 mg 04/07/24 09:00 Losartan Potassium 25 Mg Tablet PO DAILY [facility] Metoprolol Tartrate 12.5 mg 04/04/24 21:00 04/06/24 08:51 Metoprolol Tartrate 12.5 Mg Tablet PO 12.5 mg Q12HR CARIDAD Administration Midodrine 10 mg 04/02/24 17:00 04/06/24 12:17 Midodrine Hcl 2.5 Mg Tablet PO 10 mg TID CARIDAD Administration Nortriptyline HCl 50 mg 03/29/24 21:00 04/05/24 21:44 Nortriptyline Hcl 25 Mg Capsule PO 50 mg HS CARIDAD Administration Ondansetron HCl 4 mg 03/29/24 00:21 04/05/24 12:30 Ondansetron Inj 4 Mg/2 Ml Vial IV PUSH 4 mg Q4H PRN Administration Nausea Ondansetron HCl 8 mg 04/05/24 12:41 04/06/24 08:52 Ondansetron Hcl Odt 4 Mg Tablet SUBLINGUAL 8 mg Q8H PRN Administration nausea and vomiting Pantoprazole Sodium 40 mg 03/29/24 09:00 04/06/24 08:51 Pantoprazole 40 Mg Tablet PO 40 mg QAM CARIDAD Administration Perflutren Lipid Microsphere 0 ml 04/04/24 12:00 Perflutren Lipid Microspheres 1.5 Ml Vial Diluted To 10 Ml Total Volume IV PUSH 04/07/24 12:00 ONCE PRN adequate visualization Protocol Potassium Chloride 40 meq 03/29/24 09:00 04/04/24 08:59 Potassium Chloride 20 Meq Er Tablet PO 40 meq DAILY CARIDAD Administration Torsemide 100 mg 03/29/24 09:00 04/01/24 09:27 Torsemide 20 Mg Tablet PO 100 mg QAM CARIDAD Administration Radiology Results: ITS Impressions Abdomen/Pelvis CT 03/28/24 21:54 IMPRESSION: No acute intra-abdominal pathology. Innumerable nonacute findings, as detailed above. Head CT 03/29/24 14:57 IMPRESSION: 1. 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 2. Stable moderate nonspecific cerebral white matter disease, which likely represents chronic small vessel ischemic disease. Cervical Spine CT 03/29/24 15:03 IMPRESSION: 1. No fracture 2. Severe cervical spondylosis. Thoracic/Lumbar Spine CT 03/29/24 15:07 IMPRESSION: 1. No fracture. 2. Moderate thoracic and lumbar spondylosis. Chest X-Ray 04/06/24 08:02 Impression: Central congestive change and possible minimal bibasilar interstitial edema. Labs Labs: Laboratory Tests 04/06/24 04:41 04/06/24 04:41 Calcium 7.2 L Magnesium 1.8 Total Bilirubin 0.5 AST 22 ALT 15 Alkaline Phosphatase 145 H Total Protein 6.0 L Albumin 3.1 L
[2024-04-06] MEDS: CALCIUM ACETATE 667 MG TABLET 2668 MG PO (17:16)
[2024-04-06] MEDS: GENTAMICIN SULFATE 0.1% CR 15 GM TUBE 1 APPLIC TOPICAL (17:47)
[2024-04-06] MEDS: HYDROcodone/acetaminophen (*CRX) 5-325 MG TABLET 1 TAB PO (20:33)
[2024-04-06] MEDS: DIPHENOXYLATE/ATROPINE (*CRX) 2.5 MG TABLET 1 TABLET PO (20:33)
[2024-04-06] MEDS: NORTRIPTYLINE HCL 25 MG CAPSULE 50 MG PO (20:34)
[2024-04-07] VITALS (11 sets, daily range): BP systolic 67–138; BP diastolic 48–92; PULSE 79–103; RESP 16–20; TEMP 36.1–37.1; O2SAT 91–99
[2024-04-07 05:15] LABS: Hematocrit 36.8 % (42.0-52.0); Hemoglobin 11.3 g/dL (14.0-18.0); Mean Corpuscular HGB Conc 30.7 g/dl (32-36); Mean Corpuscular Hemoglobin 31.2 pg (26-34); Mean Corpuscular Volume 101.7 fl (80-100); Mean Platelet Volume 8.9 fl (7.4-10.4); Platelet Count Result 411 k/mm3 (150-375); Red Blood Count 3.62 M/mm3 (4.6-6.20); White Blood Count 8.7 K/mm3 (4.5-10.0)
[2024-04-07 05:25] LABS: Alanine Aminotransferase 14 U/L (6-50); Albumin Level 3.2 g/dL (3.5-5.1); Alkaline Phosphatase 142 U/L (38-126); Anion Gap 14 mmol/L (4-12); Aspartate Amino Transferase 17 U/L (17-59); Bilirubin,Total 0.5 mg/dL (0.2-1.3); Blood Urea Nitrogen 52 mg/dL (9-20); Calcium 7.3 mg/dL (8.4-10.2); Carbon Dioxide 26 mmol/L (22-30); Chloride 95 mmol/L (98-107); Estimated CRCL calculation 7 ml/min; Estimated Glomerular Filt Rate 4; Glucose 85 mg/dL (65-110); Magnesium 1.8 mg/dL (1.6-2.3); Potassium 4.4 mmol/L (3.4-5.0); Sodium 135 mmol/L (137-145)
[2024-04-07 05:56] LABS: Hepatitis B Surface Antigen Negative (Negative)
--- NOTE | 2024-04-07 07:58 | PM.PNCARD ---
Progress Note: A&P Assessment and Plan (1) Cardiomyopathy: Code(s): I42.9 - Cardiomyopathy, unspecified Status: Acute Assessment and Plan: Euvolemic to volume depletion. Unknown cause. Started On Metoprolol, decrease Losartan 12.5 mg daily, Jardiance 10 mg daily. Discuss life vest to prevent sudden cardiac arrest but he is not interested. His cardiomyopathy does not cause orthostatic hypotension, nausea, or falls. Obtain lexiscan myoview stress test today. (2) Orthostatic hypotension: Code(s): I95.1 - Orthostatic hypotension Status: Acute Assessment and Plan: Due to volume status or autonomic dysfunction. This can cause dizziness and falls. On Midodrine. (3) HTN (hypertension): Code(s): I10 - Essential (primary) hypertension Status: Chronic Assessment and Plan: Low normal. Fluctuates also with volume status. Decrease Losartan 12.5 mg daily. (4) Peripheral vascular disease: Code(s): I73.9 - Peripheral vascular disease, unspecified Status: Acute Assessment and Plan: Stable. (5) Tobacco abuse: Code(s): Z72.0 - Tobacco use Status: Acute Assessment and Plan: Counseled regarding smoking cessation. Subjective Date/time seen: 04/07/24 07:58 Interval history: Denies chest pain or sob. No headaches or dizziness while lying down. Exam Const: General: cooperative, healthy appearing and comfortable Orientation/consciousness: oriented to person, oriented to place and oriented to time Resp: Auscultation: clear to auscultation bilaterally, no crackles, no rales, no rhonchi and no wheezes Cardio: Rate: regular rate Rhythm: regular rhythm Heart sounds: no murmurs Peripheral pulses: dorsalis pedis present Neuro: General: oriented to person, oriented to place and oriented to time Extrem: Right lower extremity: no edema Left lower extremity: no edema Objective Data Vital Signs Vital Signs: Vital Signs - 24 hr 04/06/24 08:00 04/06/24 08:00 04/06/24 08:50 Temperature Pulse Rate 89 90 Respiratory Rate Blood Pressure 106/75 Pulse Oximetry 95 Oxygen Delivery Room Air 04/06/24 08:51 04/06/24 10:58 04/06/24 10:58 Temperature Pulse Rate 90 93 105 H Respiratory Rate Blood Pressure 96/71 L 79/54 L Pulse Oximetry 96 96 Oxygen Delivery 04/06/24 12:00 04/06/24 14:00 04/06/24 16:00 Temperature 98.2 F Pulse Rate 77 89 80 Respiratory Rate 18 Blood Pressure 126/85 Pulse Oximetry 95 Oxygen Delivery 04/06/24 20:00 04/06/24 20:00 04/06/24 20:32 Temperature 98.3 F Pulse Rate 80 84 Respiratory Rate 18 Blood Pressure 96/71 L Pulse Oximetry 92 Oxygen Delivery Room Air 04/06/24 22:00 04/06/24 22:02 04/06/24 22:03 Temperature 98.3 F 98.3 F 98.3 F Pulse Rate 80 87 90 Respiratory Rate 18 18 18 Blood Pressure 96/71 L 95/69 L 81/57 L Pulse Oximetry 92 96 97 Oxygen Delivery 04/07/24 00:00 04/07/24 04:00 04/07/24 04:47 Temperature 98.7 F Pulse Rate 79 86 84 Respiratory Rate 18 Blood Pressure 97/54 L Pulse Oximetry 91 Oxygen Delivery Intake/Output Intake/Output: Intake & Output 04/04/24 04/05/24 04/06/24 04/07/24 23:59 23:59 23:59 23:59 Intake Total 014 451 8381 240 Output Total 067 408 8737 Balance 190 369 -179 240 Meds/Results Medications: Active Medications Generic Name Dose Route Start Last Admin Trade Name Freq PRN Reason Stop Dose Admin Acetaminophen 650 mg 03/29/24 07:25 04/06/24 08:49 Acetaminophen 325 Mg Tablet PO 650 mg Q4H PRN Administration Mild Pain (1-3) or Fever Hydrocodone Bitart/Acetaminophen 1 tab 03/30/24 12:41 04/06/24 20:33 Hydrocodone/Acetaminophen (*Crx) 5-325 Mg Tablet PO 1 tab Q8H PRN Administration Pain Rated 6 or Greater Buspirone HCl 10 mg 03/29/24 09:00 04/06/24 17:16 Buspirone Hcl 10 Mg Tablet PO 10 mg TID CARIDAD Administration Calcium Acetate 2,668 mg 03/29/24 08:00 04/06/24 17:16 Calcium Acetate 667 Mg Tablet PO 2,668 mg TIDWM CARIDAD Administration Calcium Carbonate 200 mg 03/29/24 07:14 Calcium Carbonate (Tums) 500 Mg (200 Mg Elemental) PO HS PRN Indigestion Cinacalcet 90 mg 03/29/24 09:00 04/06/24 08:51 Cinacalcet 30 Mg Tablet PO 90 mg DAILY CARIDAD Administration Dextrose 12.5 gm 03/29/24 07:25 Dextrose 50% 25 Gm/50 Ml Syringe IV PUSH PRN PRN Hypoglycemia Protocol Diphenoxylate HCl/Atropine 1 tablet 03/31/24 15:10 04/06/24 20:33 Diphenoxylate/Atropine (*Crx) 2.5 Mg Tablet PO 1 tablet QID PRN Administration diarrhea Empagliflozin 10 mg 04/07/24 09:00 Empagliflozin 10 Mg Tablet PO DAILY CARIDAD Enoxaparin Sodium 30 mg 03/30/24 09:00 04/06/24 08:52 Enoxaparin 30 Mg/0.3 Ml Syringe SUB-Q 30 mg DAILY CARIDAD Administration Escitalopram Oxalate 10 mg 03/29/24 09:00 04/06/24 08:51 Escitalopram Oxalate 10 Mg Tablet PO 10 mg DAILY CARIDAD Administration Gabapentin 300 mg 03/29/24 09:00 04/06/24 17:16 Gabapentin 300 Mg Capsule PO 300 mg TID CARIDAD Administration Gentamicin Sulfate 1 applic 03/31/24 15:10 04/06/24 17:47 Gentamicin Sulfate 0.1% Cr 15 Gm Tube TOPICAL 1 applic TID PRN Administration DIALYSIS CATH. Glucagon 1 mg 03/29/24 07:25 Glucagon For Inj 1 Mg Vial IM PRN PRN Hypoglycemia Protocol Glucose 15 gm 03/29/24 07:25 Glucose Oral Gel 15 Gm Of Glucse In 37.5 Gm Tube PO PRN PRN Hypoglycemia Protocol Dextrose 1,000 mls @ 100 mls/hr 03/29/24 07:25 Dextrose 5% 1,000 Ml IVPB PRN PRN Hypoglycemia Protocol Losartan Potassium 12.5 mg 04/07/24 09:00 Losartan Potassium 12.5 Mg Tablet PO DAILY CARIDAD Metoprolol Tartrate 12.5 mg 04/04/24 21:00 04/06/24 20:32 Metoprolol Tartrate 12.5 Mg Tablet PO 12.5 mg Q12HR CARIDAD Administration Midodrine 10 mg 04/02/24 17:00 04/06/24 17:16 Midodrine Hcl 2.5 Mg Tablet PO 10 mg TID CARIDAD Administration Nortriptyline HCl 50 mg 03/29/24 21:00 04/06/24 20:34 Nortriptyline Hcl 25 Mg Capsule PO 50 mg HS CARIDAD Administration Ondansetron HCl 4 mg 03/29/24 00:21 04/05/24 12:30 Ondansetron Inj 4 Mg/2 Ml Vial IV PUSH 4 mg Q4H PRN Administration Nausea Ondansetron HCl 8 mg 04/05/24 12:41 04/06/24 08:52 Ondansetron Hcl Odt 4 Mg Tablet SUBLINGUAL 8 mg Q8H PRN Administration nausea and vomiting Pantoprazole Sodium 40 mg 03/29/24 09:00 04/06/24 08:51 Pantoprazole 40 Mg Tablet PO 40 mg QAM CARIDAD Administration Perflutren Lipid Microsphere 0 ml 04/04/24 12:00 Perflutren Lipid Microspheres 1.5 Ml Vial Diluted To 10 Ml Total Volume IV PUSH 04/07/24 12:00 ONCE PRN adequate visualization Protocol Potassium Chloride 40 meq 03/29/24 09:00 04/04/24 08:59 Potassium Chloride 20 Meq Er Tablet PO 40 meq DAILY CARIDAD Administration Torsemide 100 mg 03/29/24 09:00 04/01/24 09:27 Torsemide 20 Mg Tablet PO 100 mg QAM CARIDAD Administration Radiology Results: ITS Impressions Abdomen/Pelvis CT 03/28/24 21:54 IMPRESSION: No acute intra-abdominal pathology. Innumerable nonacute findings, as detailed above. Head CT 03/29/24 14:57 IMPRESSION: 1. 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 2. Stable moderate nonspecific cerebral white matter disease, which likely represents chronic small vessel ischemic disease. Cervical Spine CT 03/29/24 15:03 IMPRESSION: 1. No fracture 2. Severe cervical spondylosis. Thoracic/Lumbar Spine CT 03/29/24 15:07 IMPRESSION: 1. No fracture. 2. Moderate thoracic and lumbar spondylosis. Chest X-Ray 04/06/24 08:02 Impression: Central congestive change and possible minimal bibasilar interstitial edema. Labs Labs: Laboratory Results - last 24 hr 04/07/24 04:28 WBC 8.7 RBC 3.62 L Hgb 11.3 L Hct 36.8 L MCV 101.7 H MCH 31.2 MCHC 30.7 L RDW 13.0 Plt Count 411 H MPV 8.9 Sodium 135 L Potassium 4.4 Chloride 95 L Carbon Dioxide 26 Anion Gap 14 H BUN 52 H Creatinine 13.39 H Estim Creat Clear Calc 7 Estimated GFR 4 L Glucose 85 Calcium 7.3 L Magnesium 1.8 Total Bilirubin 0.5 AST 17 ALT 14 Alkaline Phosphatase 142 H Total Protein 6.0 L Albumin 3.2 L Hep Bs Antigen Negative
--- NOTE | 2024-04-07 08:00 | EST_ITS ---
Patient Info Name: Real Rolon Age: 54 years : 1970 Gender: Male Ht: 70 in Wt: 224 lbs BSA: 2.27 m2 HR: 78 bpm BP: 127 / 81 mmHg Exam Date: 04/07/2024 11:22 AM Exam Location: Echo Lab Patient Status: Inpatient Admit Date: 03/29/2024 Staff Ordering Physician: Quang Johnson DO Attending Provider: Bibiana Mcgurie APRN Exercise Technologist: Cassandra Herrmann RDCS Exercise Physician: Quang Johnson DO Exam Type: CA stress william w NM Study Info A regadenoson stress test was performed. Summary 1. 1. Negative lexiscan stress test for ischemic ST changes by ECG criteria. 2. 2. Stable hemodynamics throughout the test. 3. 3. Nuclear scan to follow and will be reported separately. Please correlate with it. 4. 4. Patient informed of the above results. Protocol: Lexiscan Stress ECG Details Stage: REST Duration (min): 1 min : 16 sec HR (bpm): 79 SBP (mmHg): 127 DBP (mmHg): 81 Stage: REST Duration (min): 6 min : 53 sec HR (bpm): 79 SBP (mmHg): 127 DBP (mmHg): 81 Stage: STAGE 1 Duration (min): 1 min : 0 sec HR (bpm): 84 SBP (mmHg): 127 DBP (mmHg): 78 Stage: RECOVERY Duration (min): 1 min : 0 sec HR (bpm): 91 SBP (mmHg): 127 DBP (mmHg): 78 Stage: RECOVERY Duration (min): 2 min : 0 sec HR (bpm): 91 SBP (mmHg): 127 DBP (mmHg): 78 Stage: RECOVERY Duration (min): 3 min : 0 sec HR (bpm): 90 SBP (mmHg): 108 DBP (mmHg): 77 Stage: RECOVERY Duration (min): 3 min : 3 sec HR (bpm): 90 SBP (mmHg): 108 DBP (mmHg): 77 Rest HR: 79 bpm Peak HR: 92 bpm Rest Sys BP: 127 mmHg Peak Sys BP: 127 mmHg Max Pred HR: 165 bpm % Max Pred HR: 56 % Target HR: 140 bpm Max RPP: 11,684 bpm*mmHg Termination Reason: Completed protocol Cardiac Symptoms: Shortness of breath Total Time: 1 min : 0 sec Rest Acevedo BP: 81 mmHg Peak Acevedo BP: 78 mmHg Total Dose: 0.4 mg Resting ECG Sinus rhythm, cannot r/o septal infarct, ST-T wave abnormality in diffuse leads- consider ischemia. Stress ECG No ST changes. Arrhythmias None. Report Signatures
[2024-04-07] MEDS: CINACALCET 30 MG TABLET 90 MG PO (08:51)
[2024-04-07] MEDS: LOSARTAN POTASSIUM 12.5 MG TABLET PO (08:51)
[2024-04-07] MEDS: PANTOPRAZOLE 40 MG TABLET PO (08:51)
[2024-04-07] MEDS: busPIRone HCL 10 MG TABLET PO ×3 (08:51→17:11)
[2024-04-07] MEDS: MIDODRINE HCL 2.5 MG TABLET 10 MG PO ×3 (08:51→17:11)
[2024-04-07] MEDS: METOPROLOL TARTRATE 12.5 MG TABLET PO ×2 (08:51→20:39)
[2024-04-07] MEDS: ESCITALOPRAM OXALATE 10 MG TABLET PO (08:51)
[2024-04-07] MEDS: GABAPENTIN 300 MG CAPSULE PO ×3 (08:51→17:11)
[2024-04-07] MEDS: EMPAGLIFLOZIN 10 MG TABLET PO (08:52)
[2024-04-07] MEDS: ENOXAPARIN 30 MG/0.3 ML SYRINGE SUB-Q (08:57)
--- NOTE | 2024-04-07 10:41 | PCOTNOTE ---
The patient treatment was not able to be completed. Patient requested to do therapy after his test patient stated he is leaving for it at 11:00 Will plan to continue treatment per plan of care.
--- NOTE | 2024-04-07 11:06 | PCNFU ---
Nutrition Follow-Up Complete: Severe protein calorie malnutrition related to poor appetite, as evidenced by weight loss -20%/2 months; intakes <50% needs >1 week; moderate muscle wasting to temporalis, clavicles Goal: Improve PO intake to 50% meals Patient is meeting goal. No new goal. Pt current nutrition is NPO Nutrition recommendation: Renal Dialysis diet. Last recorded weight is 100.4 kg, up from 99.1 kg on admit. Bowel Motility: +Bm reported 04/04 Labs Reviewed: Cr 13.39, BUN 52, NA 135, GFR 4, Hct 36.8, Hgb 11.3 Meds Noted:PhosLo, Protonix, Lexapro, Jardiance. Skin: WNL Additional Notes: Patient is currently NPO for stress test. Diet is being tolerated, patient has declined supplements. Agree with diet orders. Monitoring intakes, weights, labs, plan of care Follow up in 5 days
--- NOTE | 2024-04-07 11:10 | P.PNNP_ITS ---
Progress Note: A&P Assessment and Plan (1) End stage renal disease: Code(s): N18.6 - End stage renal disease Status: Chronic Assessment and Plan: * continue nightly CCPD * adjust PD Rx as needed * volume status looks pretty good right now. * Potassium, CO2, and BUN look good. * No signs of uremia * long discussion with the patient and also research into the orthostatic hypotension and peripheral neuropathy. (2) Multiple falls: Code(s): R29.6 - Repeated falls Status: Acute Assessment and Plan: * suspect multifactorial: * deconditioning from recent hospitalization * orthostatic hypotension * continued use of BP medications in the context of relative hypotension * possible autonomic neuropathy(?) * other(?) * CT of head without acute findings: * 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 * stable moderate nonspecific cerebral white matter disease, which likely represents chronic small vessel ischemic disease * restarted on metoprolol and losartan. * Blood pressure is dropping to the 60s again. * Will stop the losartan and see how the orthostatic BP does. * PT/OT as tolerated (3) Orthostatic hypotension: Code(s): I95.1 - Orthostatic hypotension Status: Acute Assessment and Plan: * clinical improvement noted * as noted by vital signs on admission * on midodrine therapy * evaluation to date noted: * TSH okay * cortisol reasonable But with the severity of the orthostatic hypotension will check a Cortrosyn stim test * Echo results noted -- see #4 * He has significant neuropathy. His pulse does not rise when his blood pressure dropped suggesting a neuropathic cause. * Blood pressure meds and both escitalopram and empagliflozin are on the list of drugs that exacerbate orthostatic hypotension. * hold the losartan * holding torsemide for now (4) Cardiomyopathy: Code(s): I42.9 - Cardiomyopathy, unspecified Status: Acute Assessment and Plan: * Echo results (on 04/05) noted: * left ventricular systolic function is severely globally reduced, estimated at 15-20% * left ventricular diastolic function is grade I diastolic dysfunction * mitral valve has moderately calcified annulus * mild mitral valve regurgitation * this is a significant change from last Echo in September 2023... * ischemic versus non-ischemic? * on metoprolol. He is not tolerating both this and the losartan. (5) Fluid overload: Qualifiers: Hypervolemia type: unspecified Qualified Code(s): E87.70 - Fluid overload, unspecified Code(s): E87.70 - Fluid overload, unspecified Status: Acute Assessment and Plan: * improved with dialysis alone. * Diuretics on hold (6) Hypokalemia: Code(s): E87.6 - Hypokalemia Status: Acute Assessment and Plan: * improved (7) HTN (hypertension): Code(s): I10 - Essential (primary) hypertension Status: Chronic Assessment and Plan: * complicated by #3 * BP medications on hold (8) Anemia: Code(s): D64.9 - Anemia, unspecified Status: Acute Assessment and Plan: * H/H supratherapeutic for ESRD * Epogen on hold. Check another level tomorrow (9) Generalized weakness: Code(s): R53.1 - Weakness Status: Acute Assessment and Plan: * suspect related to recent hospitalization/deconditioning in association with prior influenza infection and orthostatic hypotension * PT/OT as tolerated (10) Peripheral neuropathy: Code(s): G62.9 - Polyneuropathy, unspecified Status: Acute Assessment and Plan: the patient has severe peripheral neuropathy. He tells me he has never been diagnosed with diabetes. B12, folate, and TSH are all okay will check heavy metals. Consider a genetic cause? Subjective Date/time seen: 04/07/24 11:10 Interval history: Patient is feeling okay today. No shortness of breath and his swelling is much Exam Narrative: General: WD/WN male in NAD Heart: normal S1 and S2; no rub Lungs: clear anteriorly Abdomen: soft, nontender, nondistended, positive bowel sounds Extremities: no cyanosis or clubbing; trace edema Skin: no rash Objective Data Vital Signs Vital Signs: Vital Signs - 24 hr 04/06/24 12:00 04/06/24 14:00 04/06/24 16:00 Temperature 98.2 F Pulse Rate 77 89 80 Respiratory Rate 18 Blood Pressure 126/85 Pulse Oximetry 95 Oxygen Delivery 04/06/24 20:00 04/06/24 20:00 04/06/24 20:32 Temperature 98.3 F Pulse Rate 80 84 Respiratory Rate 18 Blood Pressure 96/71 L Pulse Oximetry 92 Oxygen Delivery Room Air 04/06/24 22:00 04/06/24 22:02 04/06/24 22:03 Temperature 98.3 F 98.3 F 98.3 F Pulse Rate 80 87 90 Respiratory Rate 18 18 18 Blood Pressure 96/71 L 95/69 L 81/57 L Pulse Oximetry 92 96 97 Oxygen Delivery 04/07/24 00:00 04/07/24 04:00 04/07/24 04:47 Temperature 98.7 F Pulse Rate 79 86 84 Respiratory Rate 18 Blood Pressure 97/54 L Pulse Oximetry 91 Oxygen Delivery 04/07/24 07:50 04/07/24 08:00 04/07/24 08:51 Temperature 97.7 F 96.9 F L Pulse Rate 82 86 95 Respiratory Rate 16 Blood Pressure 112/67 123/81 Pulse Oximetry 95 Oxygen Delivery 04/07/24 09:08 04/07/24 09:08 04/07/24 09:11 Temperature Pulse Rate 92 103 H Respiratory Rate Blood Pressure 112/76 67/48 L 102/71 Pulse Oximetry 96 98 Oxygen Delivery Intake/Output Intake/Output: Intake & Output 04/04/24 04/05/24 04/06/24 04/07/24 23:59 23:59 23:59 23:59 Intake Total 164 108 1560 240 Output Total 592 078 9487 Balance 190 369 -179 240 Meds/Results Medications: Active Medications Generic Name Dose Route Start Last Admin Trade Name Mishaq PRN Reason Stop Dose Admin Acetaminophen 650 mg 03/29/24 07:25 04/06/24 08:49 Acetaminophen 325 Mg Tablet PO 650 mg Q4H PRN Administration Mild Pain (1-3) or Fever Hydrocodone Bitart/Acetaminophen 1 tab 03/30/24 12:41 04/06/24 20:33 Hydrocodone/Acetaminophen (*Crx) 5-325 Mg Tablet PO 1 tab Q8H PRN Administration Pain Rated 6 or Greater Buspirone HCl 10 mg 03/29/24 09:00 04/07/24 08:51 Buspirone Hcl 10 Mg Tablet PO 10 mg TID CARIDAD Administration Calcium Acetate 2,668 mg 03/29/24 08:00 04/07/24 08:53 Calcium Acetate 667 Mg Tablet PO Not Given TIDWM CARIDAD Calcium Carbonate 200 mg 03/29/24 07:14 Calcium Carbonate (Tums) 500 Mg (200 Mg Elemental) PO HS PRN Indigestion Cinacalcet 90 mg 03/29/24 09:00 04/07/24 08:51 Cinacalcet 30 Mg Tablet PO 90 mg DAILY CARIDAD Administration Dextrose 12.5 gm 03/29/24 07:25 Dextrose 50% 25 Gm/50 Ml Syringe IV PUSH PRN PRN Hypoglycemia Protocol Diphenoxylate HCl/Atropine 1 tablet 03/31/24 15:10 04/06/24 20:33 Diphenoxylate/Atropine (*Crx) 2.5 Mg Tablet PO 1 tablet QID PRN Administration diarrhea Empagliflozin 10 mg 04/07/24 09:00 04/07/24 08:52 Empagliflozin 10 Mg Tablet PO 10 mg DAILY CARIDAD Administration Enoxaparin Sodium 30 mg 03/30/24 09:00 04/07/24 08:57 Enoxaparin 30 Mg/0.3 Ml Syringe SUB-Q 30 mg DAILY CARIDAD Administration Escitalopram Oxalate 10 mg 03/29/24 09:00 04/07/24 08:51 Escitalopram Oxalate 10 Mg Tablet PO 10 mg DAILY CARIDAD Administration Gabapentin 300 mg 03/29/24 09:00 04/07/24 08:51 Gabapentin 300 Mg Capsule PO 300 mg TID CARIDAD Administration Gentamicin Sulfate 1 applic 03/31/24 15:10 04/06/24 17:47 Gentamicin Sulfate 0.1% Cr 15 Gm Tube TOPICAL 1 applic TID PRN Administration DIALYSIS CATH. Glucagon 1 mg 03/29/24 07:25 Glucagon For Inj 1 Mg Vial IM PRN PRN Hypoglycemia Protocol Glucose 15 gm 03/29/24 07:25 Glucose Oral Gel 15 Gm Of Glucse In 37.5 Gm Tube PO PRN PRN Hypoglycemia Protocol Dextrose 1,000 mls @ 100 mls/hr 03/29/24 07:25 Dextrose 5% 1,000 Ml IVPB PRN PRN Hypoglycemia Protocol Losartan Potassium 12.5 mg 04/07/24 09:00 04/07/24 08:51 Losartan Potassium 12.5 Mg Tablet PO 12.5 mg DAILY CARIDAD Administration Metoprolol Tartrate 12.5 mg 04/04/24 21:00 04/07/24 08:51 Metoprolol Tartrate 12.5 Mg Tablet PO 12.5 mg Q12HR CARIDAD Administration Midodrine 10 mg 04/02/24 17:00 04/07/24 08:51 Midodrine Hcl 2.5 Mg Tablet PO 10 mg TID CARIDAD Administration Nortriptyline HCl 50 mg 03/29/24 21:00 04/06/24 20:34 Nortriptyline Hcl 25 Mg Capsule PO 50 mg HS CARIDAD Administration Ondansetron HCl 4 mg 03/29/24 00:21 04/05/24 12:30 Ondansetron Inj 4 Mg/2 Ml Vial IV PUSH 4 mg Q4H PRN Administration Nausea Ondansetron HCl 8 mg 04/05/24 12:41 04/06/24 08:52 Ondansetron Hcl Odt 4 Mg Tablet SUBLINGUAL 8 mg Q8H PRN Administration nausea and vomiting Pantoprazole Sodium 40 mg 03/29/24 09:00 04/07/24 08:51 Pantoprazole 40 Mg Tablet PO 40 mg QAM CARIDAD Administration Perflutren Lipid Microsphere 0 ml 04/04/24 12:00 Perflutren Lipid Microspheres 1.5 Ml Vial Diluted To 10 Ml Total Volume IV PUSH 04/07/24 12:00 ONCE PRN adequate visualization Protocol Potassium Chloride 40 meq 03/29/24 09:00 04/04/24 08:59 Potassium Chloride 20 Meq Er Tablet PO 40 meq DAILY CARIDAD Administration Torsemide 100 mg 03/29/24 09:00 04/01/24 09:27 Torsemide 20 Mg Tablet PO 100 mg QAM CARIDAD Administration Radiology Results: ITS Impressions Abdomen/Pelvis CT 03/28/24 21:54 IMPRESSION: No acute intra-abdominal pathology. Innumerable nonacute findings, as detailed above. Head CT 03/29/24 14:57 IMPRESSION: 1. 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 2. Stable moderate nonspecific cerebral white matter disease, which likely represents chronic small vessel ischemic disease. Cervical Spine CT 03/29/24 15:03 IMPRESSION: 1. No fracture 2. Severe cervical spondylosis. Thoracic/Lumbar Spine CT 03/29/24 15:07 IMPRESSION: 1. No fracture. 2. Moderate thoracic and lumbar spondylosis. Chest X-Ray 04/06/24 08:02 Impression: Central congestive change and possible minimal bibasilar interstitial edema. Labs Labs: Laboratory Results - last 24 hr 04/07/24 04:28 WBC 8.7 RBC 3.62 L Hgb 11.3 L Hct 36.8 L MCV 101.7 H MCH 31.2 MCHC 30.7 L RDW 13.0 Plt Count 411 H MPV 8.9 Sodium 135 L Potassium 4.4 Chloride 95 L Carbon Dioxide 26 Anion Gap 14 H BUN 52 H Creatinine 13.39 H Estim Creat Clear Calc 7 Estimated GFR 4 L Glucose 85 Calcium 7.3 L Magnesium 1.8 Total Bilirubin 0.5 AST 17 ALT 14 Alkaline Phosphatase 142 H Total Protein 6.0 L Albumin 3.2 L Hep Bs Antigen Negative
[2024-04-07] MEDS: CALCIUM ACETATE 667 MG TABLET 2668 MG PO ×2 (12:31→17:11)
--- NOTE | 2024-04-07 15:48 | PM.IMPN ---
Progress Note: A&P Assessment and Plan (1) Fluid overload: Qualifiers: Hypervolemia type: unspecified Qualified Code(s): E87.70 - Fluid overload, unspecified Code(s): E87.70 - Fluid overload, unspecified Status: Acute Assessment and Plan: Patient has missed two peritoneal dialysis appointments 2/2 weakness. BUN/Cr 56/15.49 on admission. BNP: 5670 - Chest XR: Peribronchial thickening with mild pulmonary vascular congestion, without focal infiltrate or effusion. Torsemide discontinued due to hypotension and orthostatic - Nephrology consulted, appreciate recommendations Continue PD nightly (2) Orthostatic hypotension: Code(s): I95.1 - Orthostatic hypotension Status: Acute Assessment and Plan: Orthostatics positive. Patient endorsing dizziness/lightheadedness with position change. Notes that this often occurs prior to his falling. - Continue orthostatic blood pressures q shift - Started on midodrine 10 mg TID - gladis hose - Holding labetalol 100 mg daily - Discontinue torsemide 100 mg daily, hold losartan - neuro consulted, appreciate recommendations - Monitor (3) Sinus tachycardia: Code(s): R00.0 - Tachycardia, unspecified Status: Acute Assessment and Plan: HR ranging 90-110s. Tele. Holding home labetalol 100 mg BID as patient is having symptomatic orthostatic hypotension Trialed a 250 ml bolus of NS, however HR remains elevated Will give another 250 ml bolus of NS, reassess HR Continue to monitor 04/02: 7 beat run of V tach on telemetry Mg 1.4 on am, given 2g Mg IV x1 Continue to monitor Sinus tachycardia has resolved. Continue metoprolol (4) End-stage renal disease on peritoneal dialysis: Code(s): N18.6 - End stage renal disease; Z99.2 - Dependence on renal dialysis Status: Acute Assessment and Plan: End-stage renal disease on peritoneal dialysis PD schedule per crab fisher Discontinue torsemide (5) Elevated troponin: Code(s): R79.89 - Other specified abnormal findings of blood chemistry Status: Acute Assessment and Plan: Troponin 0.048, repeat 0.049. Remains flat. Likely secondary to volume overload causing demand ischemia. Patient denying chest pain and palpitations. - EKG sinus tachycardia - Echo 10/09/23: LVEF 55-60% with grade I diastolic dysfunction Repeat echo with EF down to 15-20% grade 1 diastolic dysfunction. Cardiology has been consulted, appreciate recommendations LVEF 45% on Nuc med stress test today, no ischemic changes --Discuss stopping jardiance with cardiology given low urine output (every other day) (6) Multiple falls: Code(s): R29.6 - Repeated falls Status: Acute Assessment and Plan: 2 falls where he becomes lightheaded after standing up from his chair. He then goes to walk and his legs give out on him resulting in him falling to the floor. He denies any loss of consciousness and hitting his head. He also denies any tingling/numbness, shooting pain to the lower extremities or loss of bowel/bladder since the fall. Patient is not on any anticoagulation. - Orthostatic blood pressures q shift - Head CT 1. 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 2. Stable moderate nonspecific cerebral white matter disease, which likely represents chronic small vessel ischemic disease. - C/T/L spine CT: No fracture. Severe cervical spine spondylosis. Moderate thoracic/lumbar spondylosis. - PT/OT Recommending home health therapy (7) HTN (hypertension): Code(s): I10 - Essential (primary) hypertension Status: Chronic Assessment and Plan: Chronic - Currently holding labetalol 100 mg BID as patient has positive orthostatic hypotensive - Discontinue torsemide 100 mg daily - Continue to monitor and resume as appropriate On small dose of metoprolol currently (8) Severe protein-calorie malnutrition: Code(s): E43 - Unspecified severe protein-calorie malnutrition Status: Acute Assessment and Plan: Supplement per nutrition Time Spent With Patient Time: 58 minutes Subjective Date/time seen: 04/07/24 15:48 Interval history: Orthostatic symptoms today, Blood pressure 112/76> 67/48 standing. Mildly dizzy with the low blow blood pressure. Holding losartan Discuss benefit of jardiance with cardiology since urine output scant, voids minimally ever other day Review of Systems Review of Systems: All systems reviewed & are unremarkable except as noted in HPI and below Exam Narrative: General: male in no acute respiratory distress who is nontoxic appearing HEENT: Normocephalic. Atraumatic. Extraocular movement intact. Sclera clear and anicteric. No facial asymmetry. Chest: Lungs are clear to auscultation bilaterally. No wheezes or crackles. CV: Heart was regular rate with regular rhythm. S1/S2. No murmurs, gallops, or rubs. Abd: Abdomen was soft. Nontender. Nondistended. Positive bowel sounds. PD site is nonconcerning for infection. Ext: No clubbing, cyanosis, or edema. 1+ DP pulses bilaterally. Neuro: Patient is alert. Speech is clear. Objective Data Vital Signs Vital Signs: Vital Signs - 24 hr 04/06/24 16:00 04/06/24 20:00 04/06/24 20:00 Temperature 98.3 F Pulse Rate 80 80 Respiratory Rate 18 Blood Pressure 96/71 L Pulse Oximetry 92 Oxygen Delivery Room Air 04/06/24 20:32 04/06/24 22:00 04/06/24 22:02 Temperature 98.3 F 98.3 F Pulse Rate 84 80 87 Respiratory Rate 18 18 Blood Pressure 96/71 L 95/69 L Pulse Oximetry 92 96 Oxygen Delivery 04/06/24 22:03 04/07/24 00:00 04/07/24 04:00 Temperature 98.3 F Pulse Rate 90 79 86 Respiratory Rate 18 Blood Pressure 81/57 L Pulse Oximetry 97 Oxygen Delivery 04/07/24 04:47 04/07/24 07:50 04/07/24 08:00 Temperature 98.7 F 97.7 F 96.9 F L Pulse Rate 84 82 86 Respiratory Rate 18 16 Blood Pressure 97/54 L 112/67 123/81 Pulse Oximetry 91 95 Oxygen Delivery 04/07/24 08:51 04/07/24 09:08 04/07/24 09:08 Temperature Pulse Rate 95 92 103 H Respiratory Rate Blood Pressure 112/76 67/48 L Pulse Oximetry 96 98 Oxygen Delivery 04/07/24 09:11 04/07/24 14:00 Temperature 98.1 F Pulse Rate Respiratory Rate Blood Pressure 102/71 Pulse Oximetry 95 Oxygen Delivery Intake/Output Intake/Output: Intake & Output 04/04/24 04/05/24 04/06/24 04/07/24 23:59 23:59 23:59 23:59 Intake Total 670 041 3717 240 Output Total 279 934 0561 Balance 190 369 -179 240 Meds/Results Medications: Active Medications Generic Name Dose Route Start Last Admin Trade Name Freq PRN Reason Stop Dose Admin Acetaminophen 650 mg 03/29/24 07:25 04/06/24 08:49 Acetaminophen 325 Mg Tablet PO 650 mg Q4H PRN Administration Mild Pain (1-3) or Fever Hydrocodone Bitart/Acetaminophen 1 tab 03/30/24 12:41 04/06/24 20:33 Hydrocodone/Acetaminophen (*Crx) 5-325 Mg Tablet PO 1 tab Q8H PRN Administration Pain Rated 6 or Greater Buspirone HCl 10 mg 03/29/24 09:00 04/07/24 12:32 Buspirone Hcl 10 Mg Tablet PO 10 mg TID CARIDAD Administration Calcium Acetate 2,668 mg 03/29/24 08:00 04/07/24 12:31 Calcium Acetate 667 Mg Tablet PO 2,668 mg TIDWM CARIDAD Administration Calcium Carbonate 200 mg 03/29/24 07:14 Calcium Carbonate (Tums) 500 Mg (200 Mg Elemental) PO HS PRN Indigestion Cinacalcet 90 mg 03/29/24 09:00 04/07/24 08:51 Cinacalcet 30 Mg Tablet PO 90 mg DAILY CARIDAD Administration Dextrose 12.5 gm 03/29/24 07:25 Dextrose 50% 25 Gm/50 Ml Syringe IV PUSH PRN PRN Hypoglycemia Protocol Diphenoxylate HCl/Atropine 1 tablet 03/31/24 15:10 04/06/24 20:33 Diphenoxylate/Atropine (*Crx) 2.5 Mg Tablet PO 1 tablet QID PRN Administration diarrhea Empagliflozin 10 mg 04/07/24 09:00 04/07/24 08:52 Empagliflozin 10 Mg Tablet PO 10 mg DAILY CARIDAD Administration Enoxaparin Sodium 30 mg 03/30/24 09:00 04/07/24 08:57 Enoxaparin 30 Mg/0.3 Ml Syringe SUB-Q 30 mg DAILY CARIDAD Administration Escitalopram Oxalate 10 mg 03/29/24 09:00 04/07/24 08:51 Escitalopram Oxalate 10 Mg Tablet PO 10 mg DAILY CARIDAD Administration Gabapentin 300 mg 03/29/24 09:00 04/07/24 12:32 Gabapentin 300 Mg Capsule PO 300 mg TID CARIDAD Administration Gentamicin Sulfate 1 applic 03/31/24 15:10 04/06/24 17:47 Gentamicin Sulfate 0.1% Cr 15 Gm Tube TOPICAL 1 applic TID PRN Administration DIALYSIS CATH. Glucagon 1 mg 03/29/24 07:25 Glucagon For Inj 1 Mg Vial IM PRN PRN Hypoglycemia Protocol Glucose 15 gm 03/29/24 07:25 Glucose Oral Gel 15 Gm Of Glucse In 37.5 Gm Tube PO PRN PRN Hypoglycemia Protocol Dextrose 1,000 mls @ 100 mls/hr 03/29/24 07:25 Dextrose 5% 1,000 Ml IVPB PRN PRN Hypoglycemia Protocol Losartan Potassium 12.5 mg 04/07/24 09:00 04/07/24 08:51 Losartan Potassium 12.5 Mg Tablet PO 12.5 mg DAILY CARIDAD Administration Metoprolol Tartrate 12.5 mg 04/04/24 21:00 04/07/24 08:51 Metoprolol Tartrate 12.5 Mg Tablet PO 12.5 mg Q12HR CARIDAD Administration Midodrine 10 mg 04/02/24 17:00 04/07/24 12:31 Midodrine Hcl 2.5 Mg Tablet PO 10 mg TID CARIDAD Administration Nortriptyline HCl 50 mg 03/29/24 21:00 04/06/24 20:34 Nortriptyline Hcl 25 Mg Capsule PO 50 mg HS CARIDAD Administration Ondansetron HCl 4 mg 03/29/24 00:21 04/05/24 12:30 Ondansetron Inj 4 Mg/2 Ml Vial IV PUSH 4 mg Q4H PRN Administration Nausea Ondansetron HCl 8 mg 04/05/24 12:41 04/06/24 08:52 Ondansetron Hcl Odt 4 Mg Tablet SUBLINGUAL 8 mg Q8H PRN Administration nausea and vomiting Pantoprazole Sodium 40 mg 03/29/24 09:00 04/07/24 08:51 Pantoprazole 40 Mg Tablet PO 40 mg QAM CARIDAD Administration Potassium Chloride 40 meq 03/29/24 09:00 04/04/24 08:59 Potassium Chloride 20 Meq Er Tablet PO 40 meq DAILY CARIDAD Administration Torsemide 100 mg 03/29/24 09:00 04/01/24 09:27 Torsemide 20 Mg Tablet PO 100 mg QAM CARIDAD Administration Radiology Results: ITS Impressions Abdomen/Pelvis CT 03/28/24 21:54 IMPRESSION: No acute intra-abdominal pathology. Innumerable nonacute findings, as detailed above. Head CT 03/29/24 14:57 IMPRESSION: 1. 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 2. Stable moderate nonspecific cerebral white matter disease, which likely represents chronic small vessel ischemic disease. Cervical Spine CT 03/29/24 15:03 IMPRESSION: 1. No fracture 2. Severe cervical spondylosis. Thoracic/Lumbar Spine CT 03/29/24 15:07 IMPRESSION: 1. No fracture. 2. Moderate thoracic and lumbar spondylosis. Chest X-Ray 04/06/24 08:02 Impression: Central congestive change and possible minimal bibasilar interstitial edema. Lexiscan Stress Test 04/07/24 12:19 IMPRESSION: 1. Normal myocardial perfusion at rest and during stress. 2. Left ventricular ejection fraction measuring 49%. Labs Labs: Laboratory Results - last 24 hr 04/07/24 04:28 WBC 8.7 RBC 3.62 L Hgb 11.3 L Hct 36.8 L MCV 101.7 H MCH 31.2 MCHC 30.7 L RDW 13.0 Plt Count 411 H MPV 8.9 Sodium 135 L Potassium 4.4 Chloride 95 L Carbon Dioxide 26 Anion Gap 14 H BUN 52 H Creatinine 13.39 H Estim Creat Clear Calc 7 Estimated GFR 4 L Glucose 85 Calcium 7.3 L Magnesium 1.8 Total Bilirubin 0.5 AST 17 ALT 14 Alkaline Phosphatase 142 H Total Protein 6.0 L Albumin 3.2 L Hep Bs Antigen Negative Quality VTE Prophylaxis VTE prophylaxis: pharmacologic ordered Hospitalist [facility] Advance Care Plan I have confirmed that the patient's Advanced Care Plan is present, code status is documented, or surrogate decision maker is listed in patient medical record.: Yes Medication Reconciliation I have utilized all available resources to obtain, update and review the patients current medications (includes all prescriptions, OTC, herbals, cannabis, and nutritional supplements).: Yes
--- NOTE | 2024-04-07 16:42 | PC.NURSE ---
On 04/07/24, the student,Katherin Trejo, provided care and completed [facility] documentation on this patient. I have reviewed the student's documentation and agree with the findings.
[2024-04-07] MEDS: NORTRIPTYLINE HCL 25 MG CAPSULE 50 MG PO (20:39)
[2024-04-07] MEDS: HYDROcodone/acetaminophen (*CRX) 5-325 MG TABLET 1 TAB PO (20:39)
[2024-04-08] VITALS (16 sets, daily range): BP systolic 70–123; BP diastolic 50–88; PULSE 72–111; RESP 16–18; TEMP 36.4–36.8; O2SAT 96–100
[2024-04-08 06:29] LABS: Basophils Absolute Auto 0.1 K/mm3 (0.0-0.1); Basophils Percent Auto 0.8 % (0.2-1.2); Eosinophils Absolute Auto 1.1 K/mm3 (0-0.3); Eosinophils Percent Auto 15.2 % (0-4.4); Hematocrit 35.9 % (42.0-52.0); Hemoglobin 11.3 g/dL (14.0-18.0); Immature Granulocyte Absolute 0.02 K/mm3 (0.00-0.031); Immature Granulocyte Percent A 0.3 % (0-0.5); Lymphocytes Absolute Auto 2.11 K/mm3 (0.9-3.2); Lymphocytes Percent Auto 28.9 % (18.3-44.2); Mean Corpuscular HGB Conc 31.5 g/dl (32-36); Mean Corpuscular Hemoglobin 31.8 pg (26-34); Mean Corpuscular Volume 101.1 fl (80-100); Mean Platelet Volume 8.8 fl (7.4-10.4); Monocytes Absolute Auto 1.2 K/mm3 (0.1-0.6); Neutrophils Absolute Auto 2.8 K/mm3 (1.3-6.7); Neutrophils Percent Auto 37.8 % (45.5-73.1); Platelet Count Result 382 k/mm3 (150-375); Red Blood Count 3.55 M/mm3 (4.6-6.20); Red Cell Distribution Width 12.9 % (11.5-14.5); White Blood Count 7.3 K/mm3 (4.5-10.0)
[2024-04-08 06:45] LABS: Alanine Aminotransferase 14 U/L (6-50); Albumin Level 3.1 g/dL (3.5-5.1); Alkaline Phosphatase 135 U/L (38-126); Anion Gap 16 mmol/L (4-12); Aspartate Amino Transferase 15 U/L (17-59); Bilirubin,Total 0.4 mg/dL (0.2-1.3); Blood Urea Nitrogen 51 mg/dL (9-20); Calcium 7.4 mg/dL (8.4-10.2); Carbon Dioxide 26 mmol/L (22-30); Chloride 94 mmol/L (98-107); Glucose 103 mg/dL (65-110); Sodium 136 mmol/L (137-145)
[2024-04-08 06:51] LABS: Estimated CRCL calculation 7 ml/min; Estimated Glomerular Filt Rate 4
--- NOTE | 2024-04-08 08:43 | P.PNCA_ITS ---
Progress Note: A&P Assessment and Plan (1) Cardiomyopathy: Code(s): I42.9 - Cardiomyopathy, unspecified Status: Acute Assessment and Plan: Euvolemic to volume depletion. Non-ischemic. On Metoprolol 12.5 mg BID, Losartan 12.5 mg daily, Jardiance 10 mg daily. Discuss life vest to prevent sudden cardiac arrest but he is not interested. His cardiomyopathy does not cause orthostatic hypotension, nausea, or falls. 04/07/24 lexiscan myoview stress test: Negative for ischemia. Will sign off. Please call with any questions. Upon discharge, have him f/u with me in 1-2 weeks. (2) Orthostatic hypotension: Code(s): I95.1 - Orthostatic hypotension Status: Acute Assessment and Plan: Due to volume status or autonomic dysfunction. This can cause dizziness and falls. On Midodrine. (3) HTN (hypertension): Code(s): I10 - Essential (primary) hypertension Status: Chronic Assessment and Plan: Stable. Fluctuates also with volume status. (4) Peripheral vascular disease: Code(s): I73.9 - Peripheral vascular disease, unspecified Status: Acute Assessment and Plan: Stable. (5) Tobacco abuse: Code(s): Z72.0 - Tobacco use Status: Acute Assessment and Plan: Counseled regarding smoking cessation. Subjective Date/time seen: 04/08/24 08:43 Interval history: Denies chest pain or sob. No headaches or dizziness while lying down. Exam Const: General: cooperative, healthy appearing and comfortable Orientation/consciousness: oriented to person, oriented to place and oriented to time Resp: Auscultation: clear to auscultation bilaterally, no crackles, no rales, no rhonchi and no wheezes Cardio: Rate: regular rate Rhythm: regular rhythm Heart sounds: no murmurs Peripheral pulses: dorsalis pedis present Neuro: General: oriented to person, oriented to place and oriented to time Extrem: Right lower extremity: no edema Left lower extremity: no edema Objective Data Vital Signs Vital Signs: Vital Signs - 24 hr 04/07/24 08:51 04/07/24 09:08 04/07/24 09:08 Temperature Pulse Rate 95 92 103 H Respiratory Rate Blood Pressure 112/76 67/48 L Pulse Oximetry 96 98 Oxygen Delivery 04/07/24 09:11 04/07/24 14:00 04/07/24 16:00 Temperature 98.1 F Pulse Rate 85 Respiratory Rate Blood Pressure 102/71 Pulse Oximetry 95 Oxygen Delivery 04/07/24 20:00 04/07/24 20:00 04/07/24 20:00 Temperature 97.4 F L 97.4 F L Pulse Rate 85 82 85 Respiratory Rate 16 18 18 Blood Pressure 138/87 121/92 H Pulse Oximetry 95 99 98 Oxygen Delivery Room Air 04/07/24 20:00 04/07/24 20:00 04/08/24 00:00 Temperature 97.4 F L Pulse Rate 94 81 77 Respiratory Rate 20 Blood Pressure 105/72 Pulse Oximetry 96 Oxygen Delivery 04/08/24 04:00 04/08/24 05:35 04/08/24 07:15 Temperature 97.6 F 97.6 F Pulse Rate 73 74 74 Respiratory Rate 16 16 Blood Pressure 123/78 123/78 Pulse Oximetry 100 Oxygen Delivery Intake/Output Intake/Output: Intake & Output 04/05/24 04/06/24 04/07/24 04/08/24 23:59 23:59 23:59 23:59 Intake Total 530 1080 930 400 Output Total 161 1259 659 Balance 369 -179 930 -259 Meds/Results Medications: Active Medications Generic Name Dose Route Start Last Admin Trade Name Freq PRN Reason Stop Dose Admin Acetaminophen 650 mg 03/29/24 07:25 04/06/24 08:49 Acetaminophen 325 Mg Tablet PO 650 mg Q4H PRN Administration Mild Pain (1-3) or Fever Hydrocodone Bitart/Acetaminophen 1 tab 03/30/24 12:41 04/07/24 20:39 Hydrocodone/Acetaminophen (*Crx) 5-325 Mg Tablet PO 1 tab Q8H PRN Administration Pain Rated 6 or Greater Buspirone HCl 10 mg 03/29/24 09:00 04/07/24 17:11 Buspirone Hcl 10 Mg Tablet PO 10 mg TID CARIDAD Administration Calcium Acetate 2,668 mg 03/29/24 08:00 04/07/24 17:11 Calcium Acetate 667 Mg Tablet PO 2,668 mg TIDWM CARIDAD Administration Calcium Carbonate 200 mg 03/29/24 07:14 Calcium Carbonate (Tums) 500 Mg (200 Mg Elemental) PO HS PRN Indigestion Cinacalcet 90 mg 03/29/24 09:00 04/07/24 08:51 Cinacalcet 30 Mg Tablet PO 90 mg DAILY CARIDAD Administration Dextrose 12.5 gm 03/29/24 07:25 Dextrose 50% 25 Gm/50 Ml Syringe IV PUSH PRN PRN Hypoglycemia Protocol Diphenoxylate HCl/Atropine 1 tablet 03/31/24 15:10 04/06/24 20:33 Diphenoxylate/Atropine (*Crx) 2.5 Mg Tablet PO 1 tablet QID PRN Administration diarrhea Empagliflozin 10 mg 04/07/24 09:00 04/07/24 08:52 Empagliflozin 10 Mg Tablet PO 10 mg DAILY CARIDAD Administration Enoxaparin Sodium 30 mg 03/30/24 09:00 04/07/24 08:57 Enoxaparin 30 Mg/0.3 Ml Syringe SUB-Q 30 mg DAILY CARIDAD Administration Escitalopram Oxalate 10 mg 03/29/24 09:00 04/07/24 08:51 Escitalopram Oxalate 10 Mg Tablet PO 10 mg DAILY CARIDAD Administration Gabapentin 300 mg 03/29/24 09:00 04/07/24 17:11 Gabapentin 300 Mg Capsule PO 300 mg TID CARIDAD Administration Gentamicin Sulfate 1 applic 03/31/24 15:10 04/06/24 17:47 Gentamicin Sulfate 0.1% Cr 15 Gm Tube TOPICAL 1 applic TID PRN Administration DIALYSIS CATH. Glucagon 1 mg 03/29/24 07:25 Glucagon For Inj 1 Mg Vial IM PRN PRN Hypoglycemia Protocol Glucose 15 gm 03/29/24 07:25 Glucose Oral Gel 15 Gm Of Glucse In 37.5 Gm Tube PO PRN PRN Hypoglycemia Protocol Dextrose 1,000 mls @ 100 mls/hr 03/29/24 07:25 Dextrose 5% 1,000 Ml IVPB PRN PRN Hypoglycemia Protocol Losartan Potassium 12.5 mg 04/07/24 09:00 04/07/24 08:51 Losartan Potassium 12.5 Mg Tablet PO 12.5 mg DAILY CARIDAD Administration Metoprolol Tartrate 12.5 mg 04/04/24 21:00 04/07/24 20:39 Metoprolol Tartrate 12.5 Mg Tablet PO 12.5 mg Q12HR CARIDAD Administration Midodrine 10 mg 04/02/24 17:00 04/07/24 17:11 Midodrine Hcl 2.5 Mg Tablet PO 10 mg TID CARIDAD Administration Nortriptyline HCl 50 mg 03/29/24 21:00 04/07/24 20:39 Nortriptyline Hcl 25 Mg Capsule PO 50 mg HS CARIDAD Administration Ondansetron HCl 4 mg 03/29/24 00:21 04/05/24 12:30 Ondansetron Inj 4 Mg/2 Ml Vial IV PUSH 4 mg Q4H PRN Administration Nausea Ondansetron HCl 8 mg 04/05/24 12:41 04/06/24 08:52 Ondansetron Hcl Odt 4 Mg Tablet SUBLINGUAL 8 mg Q8H PRN Administration nausea and vomiting Pantoprazole Sodium 40 mg 03/29/24 09:00 04/07/24 08:51 Pantoprazole 40 Mg Tablet PO 40 mg QAM CARIDAD Administration Potassium Chloride 40 meq 03/29/24 09:00 04/04/24 08:59 Potassium Chloride 20 Meq Er Tablet PO 40 meq DAILY CARIDAD Administration Torsemide 100 mg 03/29/24 09:00 04/01/24 09:27 Torsemide 20 Mg Tablet PO 100 mg QAM CARIDAD Administration Radiology Results: ITS Impressions Abdomen/Pelvis CT 03/28/24 21:54 IMPRESSION: No acute intra-abdominal pathology. Innumerable nonacute findings, as detailed above. Head CT 03/29/24 14:57 IMPRESSION: 1. 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 2. Stable moderate nonspecific cerebral white matter disease, which likely represents chronic small vessel ischemic disease. Cervical Spine CT 03/29/24 15:03 IMPRESSION: 1. No fracture 2. Severe cervical spondylosis. Thoracic/Lumbar Spine CT 03/29/24 15:07 IMPRESSION: 1. No fracture. 2. Moderate thoracic and lumbar spondylosis. Chest X-Ray 04/06/24 08:02 Impression: Central congestive change and possible minimal bibasilar interstitial edema. Lexiscan Stress Test 04/07/24 12:19 IMPRESSION: 1. Normal myocardial perfusion at rest and during stress. 2. Left ventricular ejection fraction measuring 49%. Labs Labs: Laboratory Results - last 24 hr 04/08/24 06:08 WBC 7.3 RBC 3.55 L Hgb 11.3 L Hct 35.9 L MCV 101.1 H MCH 31.8 MCHC 31.5 L RDW 12.9 Plt Count 382 H MPV 8.8 Immature Gran % (Auto) 0.3 Neut % (Auto) 37.8 L Lymph % (Auto) 28.9 Wilson % (Auto) 17.0 H Eos % (Auto) 15.2 H Baso % (Auto) 0.8 Lymph # (Auto) 2.11 Wilson # (Auto) 1.2 H Eos # (Auto) 1.1 H Baso # (Auto) 0.1 Abs Immat Gran (auto) 0.02 Absolute Neuts (auto) 2.8 Absolute Nucleated RBC 0.000 Nucleated RBC % 0.0 Sodium 136 L Potassium 4.0 Chloride 94 L Carbon Dioxide 26 Anion Gap 16 H BUN 51 H Creatinine 14.19 H Estim Creat Clear Calc 7 Estimated GFR 4 L Glucose 103 Calcium 7.4 L Total Bilirubin 0.4 AST 15 L ALT 14 Alkaline Phosphatase 135 H Total Protein 6.0 L Albumin 3.1 L
--- NOTE | 2024-04-08 09:44 | PM.IMPN ---
Progress Note: A&P Assessment and Plan (1) Cardiomyopathy: Code(s): I42.9 - Cardiomyopathy, unspecified Status: Acute Assessment and Plan: Euvolemic to volume depletion. Non-ischemic. On Metoprolol 12.5 mg BID, Losartan 12.5 mg daily, Jardiance 10 mg daily. Discuss life vest to prevent sudden cardiac arrest but he is not interested. Per Cardiology- the patient's cardiomyopathy does not cause orthostatic hypotension, nausea, or falls. 04/07/24 lexiscan myoview stress test: Negative for ischemia. patient has missed two peritoneal dialysis appointments 2/2 weakness. BUN/Cr 56/15.49 on admission. BNP: 5670 - Chest XR: Peribronchial thickening with mild pulmonary vascular congestion, without focal infiltrate or effusion. Torsemide discontinued due to hypotension and orthostatic - Nephrology consulted, appreciate recommendations Continue PD nightly - tolerating well. (2) Sinus tachycardia: Code(s): R00.0 - Tachycardia, unspecified Status: Acute Assessment and Plan: Currently stable Tele. Holding home labetalol 100 mg BID as patient is having symptomatic orthostatic hypotension Trialed a 250 ml bolus of NS, however HR remains elevated Will give another 250 ml bolus of NS, reassess HR Continue to monitor 04/02: 7 beat run of V tach on telemetry Mg 1.4 on am, given 2g Mg IV x1 Continue to monitor Sinus tachycardia has resolved. Continue metoprolol - rechecking Mag today. (3) Orthostatic hypotension: Code(s): I95.1 - Orthostatic hypotension Status: Acute Assessment and Plan: Orthostatics positive. Patient endorsing dizziness/lightheadedness with position change. Notes that this often occurs prior to his falling. - this am 98/58 - Continue orthostatic blood pressures q shift - Started on midodrine 10 mg TID - gladis hose - Holding labetalol 100 mg daily - Discontinue torsemide 100 mg daily, hold losartan - neuro consulted, appreciate recommendations - Monitor (4) End-stage renal disease on peritoneal dialysis: Code(s): N18.6 - End stage renal disease; Z99.2 - Dependence on renal dialysis Status: Acute Assessment and Plan: patient missed two peritoneal dialysis treatments d/t weakness. BUN/Cr 56/15.49 on admission. BNP: 5670 - Chest XR: Peribronchial thickening with mild pulmonary vascular congestion, without focal infiltrate or effusion. Torsemide discontinued due to hypotension and orthostatic - Nephrology consulted, appreciate recommendations Continue PD nightly - tolerating well. (5) Diabetes: Code(s): E11.9 - Type 2 diabetes mellitus without complications Status: Acute Assessment and Plan: - continue Accu checks, - Home medication regimen. (6) Elevated troponin: Code(s): R79.89 - Other specified abnormal findings of blood chemistry Status: Acute Assessment and Plan: Troponin 0.048, repeat 0.049. Remains flat. Likely secondary to volume overload causing demand ischemia. Patient denying chest pain and palpitations. - EKG sinus tachycardia - Echo 10/09/23: LVEF 55-60% with grade I diastolic dysfunction Repeat echo with EF down to 15-20% grade 1 diastolic dysfunction. Cardiology has been consulted, - signed off case, requested follow up in 2 weeks outpatient. LVEF 45% on Nuc med stress test 04/07 noted no ischemic changes (7) Multiple falls: Code(s): R29.6 - Repeated falls Status: Acute Assessment and Plan: 2 falls where he becomes lightheaded after standing up from his chair. He then goes to walk and his legs give out on him resulting in him falling to the floor. He denies any loss of consciousness and hitting his head. He also denies any tingling/numbness, shooting pain to the lower extremities or loss of bowel/bladder since the fall. Patient is not on any anticoagulation. - Orthostatic blood pressures q shift - Head CT noted --> 1. 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 2. Stable moderate nonspecific cerebral white matter disease, which likely represents chronic small vessel ischemic disease. - C/T/L spine CT: No fracture. Severe cervical spine spondylosis. Moderate thoracic/lumbar spondylosis. - PT/OT - Recommending home health therapy (8) HTN (hypertension): Code(s): I10 - Essential (primary) hypertension Status: Chronic Assessment and Plan: Chronic - Currently holding labetalol 100 mg BID as patient has positive orthostatic hypotensive - Discontinue torsemide 100 mg daily - Continue to monitor and resume as appropriate On small dose of metoprolol currently (9) Fluid overload: Qualifiers: Hypervolemia type: unspecified Qualified Code(s): E87.70 - Fluid overload, unspecified Code(s): E87.70 - Fluid overload, unspecified Status: Acute Assessment and Plan: Patient has missed two peritoneal dialysis appointments 03/26 weakness. BUN/Cr 56/15.49 on admission. BNP: 5670 - Chest XR: Peribronchial thickening with mild pulmonary vascular congestion, without focal infiltrate or effusion. Torsemide discontinued due to hypotension and orthostatic - Nephrology consulted, appreciate recommendations Continue PD nightly - tolerating well. Plan - Will monitor patient, awaiting Neuro consultation (04/07/24), when Orthostatic blood pressure is normalized will d/c home with home health - PT/OT. Possible d/c in AM. Time Spent With Patient Time with patient: Greater than 35 minutes Subjective Date/time seen: 04/08/24 09:44 Interval history: This is a 54 year old male with past medical history of ESRD on peritoneal dialysis, hypertension, and polyneuropathy presented to the hospital for nausea/vomiting, weakness and multiple falls. Patient was recently admitted to the hospital from 03/09-03/21 for volume overload and respiratory failure secondary to missing PD. Today patient reports he feels well as long as he is stationary. Cardiology examined today, Euvolemic to volume depletion. Non-ischemic. He is currently stable on Metoprolol 12.5 mg BID, Losartan 12.5 mg daily, Jardiance 10 mg daily. They did discuss life vest to prevent sudden cardiac arrest but he is not interested. Per Cardiology- the patient's cardiomyopathy does not cause orthostatic hypotension, nausea, or falls. LVEF 45% on Nuc med stress test 04/07 - noted no ischemic changes. Orthostatic symptoms today, Blood pressure 123/78-->98/58 sitting. Mildly dizzy with the low blow blood pressure. He reports when he stands he becomes weak in his legs and light headed. Patient take the peritoneal dialysis this p.m., he tolerated that very well. He states he has no nausea, vomiting diarrhea, he has no cough, shortness of breath or chest pain. He continues with PT OT, neurology is consulted 04/07/24 awaiting evaluation. Review of Systems Review of Systems: All systems reviewed & are unremarkable except as noted in HPI and below Exam Const: General: cooperative, comfortable and no acute distress HENMT: Head: normal to inspection Eyes: General: appearance normal, both eyes and all related structures Neck: Neck: normal visual inspection, full ROM and no lymphadenopathy Chest: Chest palpation & inspection: normal inspection of the chest Resp: Effort & Inspection: normal respiratory effort and able to speak in complete sentences Auscultation: clear to auscultation bilaterally Cardio: Jugular venous distension: no JVD Palpation: normal PMI Rate: regular rate Rhythm: regular rhythm Heart sounds: S1 normal heart sound present and S2 normal heart sound present Peripheral pulses: Peripheral pulses 2+ throughout GI: Inspection: normal to inspection GI Palp: Yes No hepatosplenomegaly present Auscultation: normal bowel sounds Back/Spine/Pelvis: Back: no CVA tenderness Skin: General skin exam: normal color and no rashes or lesions noted Neuro: General: oriented to person, oriented to place, oriented to time, gait normal, tone normal and moves all extremities Cranial nerves: Yes CN's II-XII intact bilaterally Extrem: General: normal to inspection Psych: Appearance: grossly normal Mental Status: mental status grossly normal Speech and movement: Normal speech and movement present Affect: normal affect Objective Data Vital Signs Vital Signs: Vital Signs - 24 hr 04/07/24 14:00 04/07/24 16:00 04/07/24 20:00 Temperature 98.1 F Pulse Rate 85 85 Respiratory Rate 16 Blood Pressure Pulse Oximetry 95 95 Oxygen Delivery Room Air 04/07/24 20:00 04/07/24 20:00 04/07/24 20:00 Temperature 97.4 F L 97.4 F L 97.4 F L Pulse Rate 82 85 94 Respiratory Rate 18 18 20 Blood Pressure 138/87 121/92 H 105/72 Pulse Oximetry 99 98 96 Oxygen Delivery 04/07/24 20:00 04/08/24 00:00 04/08/24 04:00 Temperature Pulse Rate 81 77 73 Respiratory Rate Blood Pressure Pulse Oximetry Oxygen Delivery 04/08/24 05:35 04/08/24 07:15 04/08/24 09:41 Temperature 97.6 F 97.6 F Pulse Rate 74 74 Respiratory Rate 16 16 Blood Pressure 123/78 123/78 98/58 L Pulse Oximetry 100 Oxygen Delivery Intake/Output Intake/Output: Intake & Output 04/05/24 04/06/24 04/07/24 04/08/24 23:59 23:59 23:59 23:59 Intake Total 530 1080 930 520 Output Total 161 1259 659 Balance 369 -179 930 -139 Meds/Results Medications: Active Medications Generic Name Dose Route Start Last Admin Trade Name Joey PRN Reason Stop Dose Admin Acetaminophen 650 mg 03/29/24 07:25 04/06/24 08:49 Acetaminophen 325 Mg Tablet PO 650 mg Q4H PRN Administration Mild Pain (1-3) or Fever Hydrocodone Bitart/Acetaminophen 1 tab 03/30/24 12:41 04/07/24 20:39 Hydrocodone/Acetaminophen (*Crx) 5-325 Mg Tablet PO 1 tab Q8H PRN Administration Pain Rated 6 or Greater Buspirone HCl 10 mg 03/29/24 09:00 04/07/24 17:11 Buspirone Hcl 10 Mg Tablet PO 10 mg TID CARIDAD Administration Calcium Acetate 2,668 mg 03/29/24 08:00 04/08/24 09:43 Calcium Acetate 667 Mg Tablet PO Not Given TIDWM CARIDAD Calcium Carbonate 200 mg 03/29/24 07:14 Calcium Carbonate (Tums) 500 Mg (200 Mg Elemental) PO HS PRN Indigestion Cinacalcet 90 mg 03/29/24 09:00 04/07/24 08:51 Cinacalcet 30 Mg Tablet PO 90 mg DAILY CARIDAD Administration Dextrose 12.5 gm 03/29/24 07:25 Dextrose 50% 25 Gm/50 Ml Syringe IV PUSH PRN PRN Hypoglycemia Protocol Diphenoxylate HCl/Atropine 1 tablet 03/31/24 15:10 04/06/24 20:33 Diphenoxylate/Atropine (*Crx) 2.5 Mg Tablet PO 1 tablet QID PRN Administration diarrhea Empagliflozin 10 mg 04/07/24 09:00 04/07/24 08:52 Empagliflozin 10 Mg Tablet PO 10 mg DAILY CARIDAD Administration Enoxaparin Sodium 30 mg 03/30/24 09:00 04/07/24 08:57 Enoxaparin 30 Mg/0.3 Ml Syringe SUB-Q 30 mg DAILY CARIDAD Administration Escitalopram Oxalate 10 mg 03/29/24 09:00 04/07/24 08:51 Escitalopram Oxalate 10 Mg Tablet PO 10 mg DAILY CARIDAD Administration Gabapentin 300 mg 03/29/24 09:00 04/07/24 17:11 Gabapentin 300 Mg Capsule PO 300 mg TID CARIDAD Administration Gentamicin Sulfate 1 applic 03/31/24 15:10 04/06/24 17:47 Gentamicin Sulfate 0.1% Cr 15 Gm Tube TOPICAL 1 applic TID PRN Administration DIALYSIS CATH. Glucagon 1 mg 03/29/24 07:25 Glucagon For Inj 1 Mg Vial IM PRN PRN Hypoglycemia Protocol Glucose 15 gm 03/29/24 07:25 Glucose Oral Gel 15 Gm Of Glucse In 37.5 Gm Tube PO PRN PRN Hypoglycemia Protocol Dextrose 1,000 mls @ 100 mls/hr 03/29/24 07:25 Dextrose 5% 1,000 Ml IVPB PRN PRN Hypoglycemia Protocol Losartan Potassium 12.5 mg 04/07/24 09:00 04/07/24 08:51 Losartan Potassium 12.5 Mg Tablet PO 12.5 mg DAILY CARIDAD Administration Metoprolol Tartrate 12.5 mg 04/04/24 21:00 04/07/24 20:39 Metoprolol Tartrate 12.5 Mg Tablet PO 12.5 mg Q12HR CARIDAD Administration Midodrine 10 mg 04/02/24 17:00 04/07/24 17:11 Midodrine Hcl 2.5 Mg Tablet PO 10 mg TID CARIDAD Administration Nortriptyline HCl 50 mg 03/29/24 21:00 04/07/24 20:39 Nortriptyline Hcl 25 Mg Capsule PO 50 mg HS CARIDAD Administration Ondansetron HCl 4 mg 03/29/24 00:21 04/05/24 12:30 Ondansetron Inj 4 Mg/2 Ml Vial IV PUSH 4 mg Q4H PRN Administration Nausea Ondansetron HCl 8 mg 04/05/24 12:41 04/06/24 08:52 Ondansetron Hcl Odt 4 Mg Tablet SUBLINGUAL 8 mg Q8H PRN Administration nausea and vomiting Pantoprazole Sodium 40 mg 03/29/24 09:00 04/07/24 08:51 Pantoprazole 40 Mg Tablet PO 40 mg QAM CARIDAD Administration Potassium Chloride 40 meq 03/29/24 09:00 04/04/24 08:59 Potassium Chloride 20 Meq Er Tablet PO 40 meq DAILY CARIDAD Administration Torsemide 100 mg 03/29/24 09:00 04/01/24 09:27 Torsemide 20 Mg Tablet PO 100 mg QAM CARIDAD Administration Radiology Results: ITS Impressions Abdomen/Pelvis CT 03/28/24 21:54 IMPRESSION: No acute intra-abdominal pathology. Innumerable nonacute findings, as detailed above. Head CT 03/29/24 14:57 IMPRESSION: 1. 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 2. Stable moderate nonspecific cerebral white matter disease, which likely represents chronic small vessel ischemic disease. Cervical Spine CT 03/29/24 15:03 IMPRESSION: 1. No fracture 2. Severe cervical spondylosis. Thoracic/Lumbar Spine CT 03/29/24 15:07 IMPRESSION: 1. No fracture. 2. Moderate thoracic and lumbar spondylosis. Chest X-Ray 04/06/24 08:02 Impression: Central congestive change and possible minimal bibasilar interstitial edema. Lexiscan Stress Test 04/07/24 12:19 IMPRESSION: 1. Normal myocardial perfusion at rest and during stress. 2. Left ventricular ejection fraction measuring 49%. Labs Labs: Laboratory Results - last 24 hr 04/08/24 06:08 WBC 7.3 RBC 3.55 L Hgb 11.3 L Hct 35.9 L MCV 101.1 H MCH 31.8 MCHC 31.5 L RDW 12.9 Plt Count 382 H MPV 8.8 Immature Gran % (Auto) 0.3 Neut % (Auto) 37.8 L Lymph % (Auto) 28.9 [place] % (Auto) 17.0 H Eos % (Auto) 15.2 H Baso % (Auto) 0.8 Lymph # (Auto) 2.11 [place] # (Auto) 1.2 H Eos # (Auto) 1.1 H Baso # (Auto) 0.1 Abs Immat Gran (auto) 0.02 Absolute Neuts (auto) 2.8 Absolute Nucleated RBC 0.000 Nucleated RBC % 0.0 Sodium 136 L Potassium 4.0 Chloride 94 L Carbon Dioxide 26 Anion Gap 16 H BUN 51 H Creatinine 14.19 H Estim Creat Clear Calc 7 Estimated GFR 4 L Glucose 103 Calcium 7.4 L Total Bilirubin 0.4 AST 15 L ALT 14 Alkaline Phosphatase 135 H Total Protein 6.0 L Albumin 3.1 L Quality VTE Prophylaxis VTE prophylaxis: pharmacologic ordered
[2024-04-08] MEDS: MIDODRINE HCL 2.5 MG TABLET 10 MG PO ×3 (09:46→17:45)
[2024-04-08] MEDS: PANTOPRAZOLE 40 MG TABLET PO (09:46)
[2024-04-08] MEDS: EMPAGLIFLOZIN 10 MG TABLET PO (09:46)
[2024-04-08] MEDS: busPIRone HCL 10 MG TABLET PO ×3 (09:46→17:45)
[2024-04-08] MEDS: GABAPENTIN 300 MG CAPSULE PO ×3 (09:46→17:45)
[2024-04-08] MEDS: CINACALCET 30 MG TABLET 90 MG PO (09:46)
[2024-04-08] MEDS: ENOXAPARIN 30 MG/0.3 ML SYRINGE SUB-Q (09:47)
--- NOTE | 2024-04-08 10:20 | P.PNNP_ITS ---
Progress Note: A&P Assessment and Plan (1) End stage renal disease: Code(s): N18.6 - End stage renal disease Status: Chronic Assessment and Plan: * continue nightly CCPD * adjust PD Rx as needed * volume status looks pretty good right now. * Potassium, CO2, and BUN look good. (2) Multiple falls: Code(s): R29.6 - Repeated falls Status: Acute Assessment and Plan: * suspect multifactorial: * deconditioning from recent hospitalization * orthostatic hypotension * continued use of BP medications in the context of relative hypotension * possible autonomic neuropathy(?) * other(?) * CT of head without acute findings: * 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 * stable moderate nonspecific cerebral white matter disease, which likely represents chronic small vessel ischemic disease * restarted on metoprolol and losartan. * Blood pressure is dropping to the 60s again. * orthostatic drop seems better off the losartan. Will continue the metoprolol for his heart * PT/OT as tolerated (3) Orthostatic hypotension: Code(s): I95.1 - Orthostatic hypotension Status: Acute Assessment and Plan: * clinical improvement noted * as noted by vital signs on admission * on midodrine therapy * evaluation to date noted: * TSH okay * cortisol reasonable But with the severity of the orthostatic hypotension will check a Cortrosyn stim test * Echo results noted -- see #4 * He has significant neuropathy. His pulse does not rise when his blood pressure dropped suggesting a neuropathic cause. * Blood pressure meds and both antidepressants and empagliflozin are on the list of drugs that exacerbate orthostatic hypotension. looking at other options for escitalopram, it seems like this is the least likely to lead to this. He does have significant issues with depression, so will leave him on this medication. * holding the losartan * holding torsemide for now * continuing the metoprolol and midodrine (4) Cardiomyopathy: Code(s): I42.9 - Cardiomyopathy, unspecified Status: Acute Assessment and Plan: * Echo results (on 04/05) noted: * left ventricular systolic function is severely globally reduced, estimated at 15-20% * left ventricular diastolic function is grade I diastolic dysfunction * mitral valve has moderately calcified annulus * mild mitral valve regurgitation * this is a significant change from last Echo in September 2023. * stress test was negative * on metoprolol. * Losartan on hold (5) Fluid overload: Qualifiers: Hypervolemia type: unspecified Qualified Code(s): E87.70 - Fluid overload, unspecified Code(s): E87.70 - Fluid overload, unspecified Status: Acute Assessment and Plan: * improved with dialysis alone. * Diuretics on hold (6) Hypokalemia: Code(s): E87.6 - Hypokalemia Status: Acute Assessment and Plan: * improved (7) HTN (hypertension): Code(s): I10 - Essential (primary) hypertension Status: Chronic Assessment and Plan: * complicated by #3 * BP medications on hold (8) Anemia: Code(s): D64.9 - Anemia, unspecified Status: Acute Assessment and Plan: * hemoglobin is still 11.3 * Epogen on hold. Check another level tomorrow (9) Generalized weakness: Code(s): R53.1 - Weakness Status: Acute Assessment and Plan: * suspect related to recent hospitalization/deconditioning in association with prior influenza infection and orthostatic hypotension * PT/OT as tolerated (10) Peripheral neuropathy: Code(s): G62.9 - Polyneuropathy, unspecified Status: Acute Assessment and Plan: the patient has severe peripheral neuropathy. He tells me he has never been diagnosed with diabetes. B12, folate, and TSH are all okay check for heavy metals is pending. Consider a genetic cause? Subjective Date/time seen: 04/08/24 10:20 Interval history: patient is sitting at the side of the bed. His orthostatic blood pressure was better last evening. He did not become dizzy when he stood up. He walked in the halls a little yesterday. Exam Narrative: General: WD/WN male in NAD Heart: normal S1 and S2; no rub or gallop Lungs: clear bilaterally Abdomen: soft, nontender, nondistended, positive bowel sounds Extremities: no cyanosis or clubbing; trace edema Skin: no rash Or subcu nodules Objective Data Vital Signs Vital Signs: Vital Signs - 24 hr 04/07/24 14:00 04/07/24 16:00 04/07/24 20:00 Temperature 98.1 F Pulse Rate 85 85 Respiratory Rate 16 Blood Pressure Pulse Oximetry 95 95 Oxygen Delivery Room Air 04/07/24 20:00 04/07/24 20:00 04/07/24 20:00 Temperature 97.4 F L 97.4 F L 97.4 F L Pulse Rate 82 85 94 Respiratory Rate 18 18 20 Blood Pressure 138/87 121/92 H 105/72 Pulse Oximetry 99 98 96 Oxygen Delivery 04/07/24 20:00 04/08/24 00:00 04/08/24 04:00 Temperature Pulse Rate 81 77 73 Respiratory Rate Blood Pressure Pulse Oximetry Oxygen Delivery 04/08/24 05:35 04/08/24 07:15 04/08/24 09:41 Temperature 97.6 F 97.6 F Pulse Rate 74 74 Respiratory Rate 16 16 Blood Pressure 123/78 123/78 98/58 L Pulse Oximetry 100 Oxygen Delivery Intake/Output Intake/Output: Intake & Output 04/05/24 04/06/24 04/07/24 04/08/24 23:59 23:59 23:59 23:59 Intake Total 530 1080 930 520 Output Total 161 1259 659 Balance 369 -179 930 -139 Meds/Results Medications: Active Medications Generic Name Dose Route Start Last Admin Trade Name Freq PRN Reason Stop Dose Admin Acetaminophen 650 mg 03/29/24 07:25 04/06/24 08:49 Acetaminophen 325 Mg Tablet PO 650 mg Q4H PRN Administration Mild Pain (1-3) or Fever Hydrocodone Bitart/Acetaminophen 1 tab 03/30/24 12:41 04/07/24 20:39 Hydrocodone/Acetaminophen (*Crx) 5-325 Mg Tablet PO 1 tab Q8H PRN Administration Pain Rated 6 or Greater Buspirone HCl 10 mg 03/29/24 09:00 04/08/24 09:46 Buspirone Hcl 10 Mg Tablet PO 10 mg TID CARIDAD Administration Calcium Acetate 2,668 mg 03/29/24 08:00 04/08/24 09:43 Calcium Acetate 667 Mg Tablet PO Not Given TIDWM CARIDAD Calcium Carbonate 200 mg 03/29/24 07:14 Calcium Carbonate (Tums) 500 Mg (200 Mg Elemental) PO HS PRN Indigestion Cinacalcet 90 mg 03/29/24 09:00 04/08/24 09:46 Cinacalcet 30 Mg Tablet PO 90 mg DAILY CARIDAD Administration Dextrose 12.5 gm 03/29/24 07:25 Dextrose 50% 25 Gm/50 Ml Syringe IV PUSH PRN PRN Hypoglycemia Protocol Diphenoxylate HCl/Atropine 1 tablet 03/31/24 15:10 04/06/24 20:33 Diphenoxylate/Atropine (*Crx) 2.5 Mg Tablet PO 1 tablet QID PRN Administration diarrhea Empagliflozin 10 mg 04/07/24 09:00 04/08/24 09:46 Empagliflozin 10 Mg Tablet PO 10 mg DAILY CARIDAD Administration Enoxaparin Sodium 30 mg 03/30/24 09:00 04/08/24 09:47 Enoxaparin 30 Mg/0.3 Ml Syringe SUB-Q 30 mg DAILY CARIDAD Administration Escitalopram Oxalate 10 mg 03/29/24 09:00 04/07/24 08:51 Escitalopram Oxalate 10 Mg Tablet PO 10 mg DAILY CARIDAD Administration Gabapentin 300 mg 03/29/24 09:00 04/08/24 09:46 Gabapentin 300 Mg Capsule PO 300 mg TID CARIDAD Administration Gentamicin Sulfate 1 applic 03/31/24 15:10 04/06/24 17:47 Gentamicin Sulfate 0.1% Cr 15 Gm Tube TOPICAL 1 applic TID PRN Administration DIALYSIS CATH. Glucagon 1 mg 03/29/24 07:25 Glucagon For Inj 1 Mg Vial IM PRN PRN Hypoglycemia Protocol Glucose 15 gm 03/29/24 07:25 Glucose Oral Gel 15 Gm Of Glucse In 37.5 Gm Tube PO PRN PRN Hypoglycemia Protocol Dextrose 1,000 mls @ 100 mls/hr 03/29/24 07:25 Dextrose 5% 1,000 Ml IVPB PRN PRN Hypoglycemia Protocol Losartan Potassium 12.5 mg 04/07/24 09:00 04/07/24 08:51 Losartan Potassium 12.5 Mg Tablet PO 12.5 mg DAILY CARIDAD Administration Metoprolol Tartrate 12.5 mg 04/04/24 21:00 04/07/24 20:39 Metoprolol Tartrate 12.5 Mg Tablet PO 12.5 mg Q12HR CARIDAD Administration Midodrine 10 mg 04/02/24 17:00 04/08/24 09:46 Midodrine Hcl 2.5 Mg Tablet PO 10 mg TID CARIDAD Administration Nortriptyline HCl 50 mg 03/29/24 21:00 04/07/24 20:39 Nortriptyline Hcl 25 Mg Capsule PO 50 mg HS CARIDAD Administration Ondansetron HCl 4 mg 03/29/24 00:21 04/05/24 12:30 Ondansetron Inj 4 Mg/2 Ml Vial IV PUSH 4 mg Q4H PRN Administration Nausea Ondansetron HCl 8 mg 04/05/24 12:41 04/06/24 08:52 Ondansetron Hcl Odt 4 Mg Tablet SUBLINGUAL 8 mg Q8H PRN Administration nausea and vomiting Pantoprazole Sodium 40 mg 03/29/24 09:00 04/08/24 09:46 Pantoprazole 40 Mg Tablet PO 40 mg QAM CARIDAD Administration Potassium Chloride 40 meq 03/29/24 09:00 04/04/24 08:59 Potassium Chloride 20 Meq Er Tablet PO 40 meq DAILY CARIDAD Administration Torsemide 100 mg 03/29/24 09:00 04/01/24 09:27 Torsemide 20 Mg Tablet PO 100 mg QAM CARIDAD Administration Radiology Results: ITS Impressions Abdomen/Pelvis CT 03/28/24 21:54 IMPRESSION: No acute intra-abdominal pathology. Innumerable nonacute findings, as detailed above. Head CT 03/29/24 14:57 IMPRESSION: 1. 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 2. Stable moderate nonspecific cerebral white matter disease, which likely represents chronic small vessel ischemic disease. Cervical Spine CT 03/29/24 15:03 IMPRESSION: 1. No fracture 2. Severe cervical spondylosis. Thoracic/Lumbar Spine CT 03/29/24 15:07 IMPRESSION: 1. No fracture. 2. Moderate thoracic and lumbar spondylosis. Chest X-Ray 04/06/24 08:02 Impression: Central congestive change and possible minimal bibasilar interstitial edema. Lexiscan Stress Test 04/07/24 12:19 IMPRESSION: 1. Normal myocardial perfusion at rest and during stress. 2. Left ventricular ejection fraction measuring 49%. Labs Labs: Laboratory Results - last 24 hr 04/08/24 06:08 WBC 7.3 RBC 3.55 L Hgb 11.3 L Hct 35.9 L MCV 101.1 H MCH 31.8 MCHC 31.5 L RDW 12.9 Plt Count 382 H MPV 8.8 Immature Gran % (Auto) 0.3 Neut % (Auto) 37.8 L Lymph % (Auto) 28.9 [place] % (Auto) 17.0 H Eos % (Auto) 15.2 H Baso % (Auto) 0.8 Lymph # (Auto) 2.11 [place] # (Auto) 1.2 H Eos # (Auto) 1.1 H Baso # (Auto) 0.1 Abs Immat Gran (auto) 0.02 Absolute Neuts (auto) 2.8 Absolute Nucleated RBC 0.000 Nucleated RBC % 0.0 Sodium 136 L Potassium 4.0 Chloride 94 L Carbon Dioxide 26 Anion Gap 16 H BUN 51 H Creatinine 14.19 H Estim Creat Clear Calc 7 Estimated GFR 4 L Glucose 103 Calcium 7.4 L Total Bilirubin 0.4 AST 15 L ALT 14 Alkaline Phosphatase 135 H Total Protein 6.0 L Albumin 3.1 L
[2024-04-08] MEDS: CALCIUM ACETATE 667 MG TABLET 2668 MG PO ×2 (12:51→17:45)
[2024-04-08] MEDS: HYDROcodone/acetaminophen (*CRX) 5-325 MG TABLET 1 TAB PO ×2 (12:56→20:59)
[2024-04-08] MEDS: DIPHENOXYLATE/ATROPINE (*CRX) 2.5 MG TABLET 1 TABLET PO (17:47)
[2024-04-08] MEDS: NORTRIPTYLINE HCL 25 MG CAPSULE 50 MG PO (20:59)
[2024-04-08] MEDS: METOPROLOL TARTRATE 12.5 MG TABLET PO (20:59)
[2024-04-09] VITALS (15 sets, daily range): BP systolic 83–164; BP diastolic 56–91; PULSE 74–104; RESP 16–18; TEMP 36.2–36.7; O2SAT 95–100
[2024-04-09 06:08] LABS: Basophils Absolute Auto 0.1 K/mm3 (0.0-0.1); Basophils Percent Auto 0.9 % (0.2-1.2); Eosinophils Absolute Auto 1.2 K/mm3 (0-0.3); Eosinophils Percent Auto 15.3 % (0-4.4); Hematocrit 36.8 % (42.0-52.0); Hemoglobin 11.7 g/dL (14.0-18.0); Immature Granulocyte Absolute 0.04 K/mm3 (0.00-0.031); Immature Granulocyte Percent A 0.5 % (0-0.5); Lymphocytes Absolute Auto 2.15 K/mm3 (0.9-3.2); Lymphocytes Percent Auto 26.7 % (18.3-44.2); Mean Corpuscular HGB Conc 31.8 g/dl (32-36); Mean Corpuscular Hemoglobin 32.1 pg (26-34); Mean Corpuscular Volume 100.8 fl (80-100); Mean Platelet Volume 8.9 fl (7.4-10.4); Monocytes Absolute Auto 1.2 K/mm3 (0.1-0.6); Neutrophils Absolute Auto 3.4 K/mm3 (1.3-6.7); Neutrophils Percent Auto 41.6 % (45.5-73.1); Platelet Count Result 419 k/mm3 (150-375); Red Blood Count 3.65 M/mm3 (4.6-6.20); Red Cell Distribution Width 12.8 % (11.5-14.5); White Blood Count 8.1 K/mm3 (4.5-10.0)
[2024-04-09 06:21] LABS: Alanine Aminotransferase 16 U/L (6-50); Albumin Level 3.2 g/dL (3.5-5.1); Alkaline Phosphatase 136 U/L (38-126); Anion Gap 15 mmol/L (4-12); Aspartate Amino Transferase 19 U/L (17-59); Bilirubin,Total 0.4 mg/dL (0.2-1.3); Blood Urea Nitrogen 50 mg/dL (9-20); Calcium 7.5 mg/dL (8.4-10.2); Carbon Dioxide 25 mmol/L (22-30); Chloride 95 mmol/L (98-107); Estimated CRCL calculation 7 ml/min; Estimated Glomerular Filt Rate 4; Glucose 93 mg/dL (65-110); Magnesium 1.8 mg/dL (1.6-2.3); Phosphorus 8.8 mg/dL (2.5-4.5); Sodium 135 mmol/L (137-145)
[2024-04-09] MEDS: METOPROLOL TARTRATE 12.5 MG TABLET PO ×2 (08:43→20:12)
[2024-04-09] MEDS: LOSARTAN POTASSIUM 12.5 MG TABLET PO (08:43)
[2024-04-09] MEDS: CALCIUM ACETATE 667 MG TABLET 2668 MG PO ×3 (08:43→17:54)
[2024-04-09] MEDS: GABAPENTIN 300 MG CAPSULE PO ×3 (08:44→17:54)
[2024-04-09] MEDS: ESCITALOPRAM OXALATE 10 MG TABLET PO (08:44)
[2024-04-09] MEDS: PANTOPRAZOLE 40 MG TABLET PO (08:44)
[2024-04-09] MEDS: EMPAGLIFLOZIN 10 MG TABLET PO (08:44)
[2024-04-09] MEDS: MIDODRINE HCL 2.5 MG TABLET 10 MG PO ×3 (08:44→17:54)
[2024-04-09] MEDS: CINACALCET 30 MG TABLET 90 MG PO (08:44)
[2024-04-09] MEDS: busPIRone HCL 10 MG TABLET PO ×3 (08:44→17:54)
[2024-04-09] MEDS: ENOXAPARIN 30 MG/0.3 ML SYRINGE SUB-Q (08:57)
--- NOTE | 2024-04-09 10:28 | P.PNNP_ITS ---
Progress Note: A&P Assessment and Plan (1) End stage renal disease: Code(s): N18.6 - End stage renal disease Status: Chronic Assessment and Plan: * continue nightly CCPD * adjust PD Rx as needed * volume status looks pretty good right now. * Potassium, CO2, and BUN look good. * Patient had about 1L off with the peritoneal dialysis * weight listed as 108kg. 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 * Blood pressure dropped to 95 yesterday evening when standing. * Will continue the metoprolol for his heart * PT/OT as tolerated (3) Orthostatic hypotension: Code(s): I95.1 - Orthostatic hypotension Status: Acute Assessment and Plan: * clinical improvement noted * as noted by vital signs on admission * on midodrine therapy * evaluation to date noted: * TSH okay * cortisol reasonable But with the severity of the orthostatic hypotension will check a Cortrosyn stim test * Echo results noted -- see #4 * He has significant neuropathy. His pulse does not rise very much when his blood pressure dropped suggesting a neuropathic cause. * Blood pressure meds and both antidepressants and empagliflozin are on the list of drugs that exacerbate orthostatic hypotension. looking at other options for escitalopram, it seems like this is the least likely to lead to this. He does have significant issues with depression, so will leave him on this medication. * holding the losartan * holding torsemide for now * continuing the metoprolol and midodrine (4) Cardiomyopathy: Code(s): I42.9 - Cardiomyopathy, unspecified Status: Acute Assessment and Plan: * Echo results (on 04/05) noted: * left ventricular systolic function is severely globally reduced, estimated at 15-20% * left ventricular diastolic function is grade I diastolic dysfunction * mitral valve has moderately calcified annulus * mild mitral valve regurgitation * this is a significant change from last Echo in September 2023. * stress test was negative * on metoprolol. * Losartan on hold (5) Fluid overload: Qualifiers: Hypervolemia type: unspecified Qualified Code(s): E87.70 - Fluid overload, unspecified Code(s): E87.70 - Fluid overload, unspecified Status: Acute Assessment and Plan: * improved with dialysis alone. * Diuretics on hold (6) Hypokalemia: Code(s): E87.6 - Hypokalemia Status: Acute Assessment and Plan: * improved (7) HTN (hypertension): Code(s): I10 - Essential (primary) hypertension Status: Chronic Assessment and Plan: * complicated by #3 * BP medications on hold (8) Anemia: Code(s): D64.9 - Anemia, unspecified Status: Acute Assessment and Plan: * hemoglobin is still 11.7 * Epogen on hold. Check another level tomorrow (9) Generalized weakness: Code(s): R53.1 - Weakness Status: Acute Assessment and Plan: * suspect related to recent hospitalization/deconditioning in association with prior influenza infection and orthostatic hypotension * PT/OT as tolerated (10) Peripheral neuropathy: Code(s): G62.9 - Polyneuropathy, unspecified Status: Acute Assessment and Plan: the patient has severe peripheral neuropathy. He tells me he has never been diagnosed with diabetes. B12, folate, and TSH are all okay test for heavy metals is pending. Consider a genetic cause? Subjective Date/time seen: 04/09/24 10:28 Interval history: patient feels okay today. A little dizzy when standing yesterday afternoon. Looking forward to walking in the halls again today. Exam Narrative: General: WD/WN male in NAD Heart: normal S1 and S2; no rub or gallop Lungs: clear to auscultation Abdomen: bowel sounds positive and soft nontender. Extremities: no cyanosis or clubbing; trace edema Skin: no rash Objective Data Vital Signs Vital Signs: Vital Signs - 24 hr 04/08/24 12:00 04/08/24 12:57 04/08/24 13:52 Temperature 98.2 F Pulse Rate 83 94 Respiratory Rate 18 Blood Pressure 104/50 L 104/72 Pulse Oximetry 97 Oxygen Delivery 04/08/24 16:00 04/08/24 20:00 04/08/24 20:00 Temperature Pulse Rate 78 78 88 Respiratory Rate 18 Blood Pressure Pulse Oximetry 97 Oxygen Delivery Room Air 04/08/24 22:09 04/08/24 22:09 04/08/24 22:13 Temperature 97.7 F Pulse Rate 92 92 103 H Respiratory Rate 16 Blood Pressure 119/88 119/88 120/79 Pulse Oximetry 96 Oxygen Delivery 04/08/24 22:20 04/09/24 00:00 04/09/24 04:00 Temperature Pulse Rate 111 H 74 78 Respiratory Rate Blood Pressure 95/64 L Pulse Oximetry Oxygen Delivery 04/09/24 05:16 04/09/24 08:43 Temperature 97.6 F Pulse Rate 87 104 H Respiratory Rate 16 Blood Pressure 114/79 Pulse Oximetry 95 Oxygen Delivery Intake/Output Intake/Output: Intake & Output 04/06/24 04/07/24 04/08/24 04/09/24 23:59 23:59 23:59 23:59 Intake Total 8786 918 7449 590 Output Total 1259 659 Balance -179 930 341 590 Meds/Results Medications: Active Medications Generic Name Dose Route Start Last Admin Trade Name Freq PRN Reason Stop Dose Admin Acetaminophen 650 mg 03/29/24 07:25 04/06/24 08:49 Acetaminophen 325 Mg Tablet PO 650 mg Q4H PRN Administration Mild Pain (1-3) or Fever Hydrocodone Bitart/Acetaminophen 1 tab 03/30/24 12:41 04/08/24 20:59 Hydrocodone/Acetaminophen (*Crx) 5-325 Mg Tablet PO 1 tab Q8H PRN Administration Pain Rated 6 or Greater Buspirone HCl 10 mg 03/29/24 09:00 04/09/24 08:44 Buspirone Hcl 10 Mg Tablet PO 10 mg TID CARIDAD Administration Calcium Acetate 2,668 mg 03/29/24 08:00 04/09/24 08:43 Calcium Acetate 667 Mg Tablet PO 2,668 mg TIDWM CARIDAD Administration Calcium Carbonate 200 mg 03/29/24 07:14 Calcium Carbonate (Tums) 500 Mg (200 Mg Elemental) PO HS PRN Indigestion Cinacalcet 90 mg 03/29/24 09:00 04/09/24 08:44 Cinacalcet 30 Mg Tablet PO 90 mg DAILY CARIDAD Administration Dextrose 12.5 gm 03/29/24 07:25 Dextrose 50% 25 Gm/50 Ml Syringe IV PUSH PRN PRN Hypoglycemia Protocol Diphenoxylate HCl/Atropine 1 tablet 03/31/24 15:10 04/08/24 17:47 Diphenoxylate/Atropine (*Crx) 2.5 Mg Tablet PO 1 tablet QID PRN Administration diarrhea Empagliflozin 10 mg 04/07/24 09:00 04/09/24 08:44 Empagliflozin 10 Mg Tablet PO 10 mg DAILY CARIDAD Administration Enoxaparin Sodium 30 mg 03/30/24 09:00 04/09/24 08:57 Enoxaparin 30 Mg/0.3 Ml Syringe SUB-Q 30 mg DAILY CARIDAD Administration Escitalopram Oxalate 10 mg 03/29/24 09:00 04/09/24 08:44 Escitalopram Oxalate 10 Mg Tablet PO 10 mg DAILY CARIDAD Administration Gabapentin 300 mg 03/29/24 09:00 04/09/24 08:44 Gabapentin 300 Mg Capsule PO 300 mg TID CARIDAD Administration Gentamicin Sulfate 1 applic 03/31/24 15:10 04/06/24 17:47 Gentamicin Sulfate 0.1% Cr 15 Gm Tube TOPICAL 1 applic TID PRN Administration DIALYSIS CATH. Glucagon 1 mg 03/29/24 07:25 Glucagon For Inj 1 Mg Vial IM PRN PRN Hypoglycemia Protocol Glucose 15 gm 03/29/24 07:25 Glucose Oral Gel 15 Gm Of Glucse In 37.5 Gm Tube PO PRN PRN Hypoglycemia Protocol Dextrose 1,000 mls @ 100 mls/hr 03/29/24 07:25 Dextrose 5% 1,000 Ml IVPB PRN PRN Hypoglycemia Protocol Losartan Potassium 12.5 mg 04/07/24 09:00 04/09/24 08:43 Losartan Potassium 12.5 Mg Tablet PO 12.5 mg DAILY CARIDAD Administration Metoprolol Tartrate 12.5 mg 04/04/24 21:00 04/09/24 08:43 Metoprolol Tartrate 12.5 Mg Tablet PO 12.5 mg Q12HR CARIDAD Administration Midodrine 10 mg 04/02/24 17:00 04/09/24 08:44 Midodrine Hcl 2.5 Mg Tablet PO 10 mg TID CARIDAD Administration Miscellaneous Information 0 each 04/08/24 00:01 04/08/24 16:44 Please Renew [place]- 10 Day [employer] For Narcotic XX 05/08/24 00:00 Not Given CLARIFY CARIDAD Nortriptyline HCl 50 mg 03/29/24 21:00 04/08/24 20:59 Nortriptyline Hcl 25 Mg Capsule PO 50 mg HS CARIDAD Administration Ondansetron HCl 4 mg 03/29/24 00:21 04/05/24 12:30 Ondansetron Inj 4 Mg/2 Ml Vial IV PUSH 4 mg Q4H PRN Administration Nausea Ondansetron HCl 8 mg 04/05/24 12:41 04/06/24 08:52 Ondansetron Hcl Odt 4 Mg Tablet SUBLINGUAL 8 mg Q8H PRN Administration nausea and vomiting Pantoprazole Sodium 40 mg 03/29/24 09:00 04/09/24 08:44 Pantoprazole 40 Mg Tablet PO 40 mg QAM CARIDAD Administration Potassium Chloride 40 meq 03/29/24 09:00 04/04/24 08:59 Potassium Chloride 20 Meq Er Tablet PO 40 meq DAILY CARIDAD Administration Torsemide 100 mg 03/29/24 09:00 04/01/24 09:27 Torsemide 20 Mg Tablet PO 100 mg QAM CARIDAD Administration Radiology Results: ITS Impressions Abdomen/Pelvis CT 03/28/24 21:54 IMPRESSION: No acute intra-abdominal pathology. Innumerable nonacute findings, as detailed above. Head CT 03/29/24 14:57 IMPRESSION: 1. 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 2. Stable moderate nonspecific cerebral white matter disease, which likely represents chronic small vessel ischemic disease. Cervical Spine CT 03/29/24 15:03 IMPRESSION: 1. No fracture 2. Severe cervical spondylosis. Thoracic/Lumbar Spine CT 03/29/24 15:07 IMPRESSION: 1. No fracture. 2. Moderate thoracic and lumbar spondylosis. Chest X-Ray 04/06/24 08:02 Impression: Central congestive change and possible minimal bibasilar interstitial edema. Lexiscan Stress Test 04/07/24 12:19 IMPRESSION: 1. Normal myocardial perfusion at rest and during stress. 2. Left ventricular ejection fraction measuring 49%. Labs Labs: Laboratory Results - last 24 hr 04/09/24 05:42 WBC 8.1 RBC 3.65 L Hgb 11.7 L Hct 36.8 L MCV 100.8 H MCH 32.1 MCHC 31.8 L RDW 12.8 Plt Count 419 H MPV 8.9 Immature Gran % (Auto) 0.5 Neut % (Auto) 41.6 L Lymph % (Auto) 26.7 Coleman % (Auto) 15.0 H Eos % (Auto) 15.3 H Baso % (Auto) 0.9 Lymph # (Auto) 2.15 Coleman # (Auto) 1.2 H Eos # (Auto) 1.2 H Baso # (Auto) 0.1 Abs Immat Gran (auto) 0.04 H Absolute Neuts (auto) 3.4 Absolute Nucleated RBC 0.000 Nucleated RBC % 0.0 Sodium 135 L Potassium 4.0 Chloride 95 L Carbon Dioxide 25 Anion Gap 15 H BUN 50 H Creatinine 13.46 H Estim Creat Clear Calc 7 Estimated GFR 4 L Glucose 93 Calcium 7.5 L Phosphorus 8.8 H Magnesium 1.8 Total Bilirubin 0.4 AST 19 ALT 16 Alkaline Phosphatase 136 H Total Protein 6.0 L Albumin 3.2 L
--- NOTE | 2024-04-09 13:26 | P.PNIM_ITS ---
Progress Note: A&P Assessment and Plan (1) End-stage renal disease on peritoneal dialysis: Code(s): N18.6 - End stage renal disease; Z99.2 - Dependence on renal dialysis Status: Acute Assessment and Plan: continue nightly CCPD * adjust PD Rx as needed * volume status looks pretty good right now. * Potassium, CO2, and BUN look good. * Patient had about 1L off with the peritoneal dialysis * weight listed as 108kg. 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 * Blood pressure dropped to 95 yesterday evening when standing. * Will continue the metoprolol for his heart * PT/OT as tolerated (3) Orthostatic hypotension: Code(s): I95.1 - Orthostatic hypotension Status: Acute Assessment and Plan: clinical improvement noted * as noted by vital signs on admission * on midodrine therapy * evaluation to date noted: * TSH okay * cortisol reasonable But with the severity of the orthostatic hypotension will check a Cortrosyn stim test * Echo results noted -- see #4 * He has significant neuropathy. His pulse does not rise very much when his blood pressure dropped suggesting a neuropathic cause. * Blood pressure meds and both antidepressants and empagliflozin are on the list of drugs that exacerbate orthostatic hypotension. looking at other options for escitalopram, it seems like this is the least likely to lead to this. He does have significant issues with depression, so will leave him on this medication. * holding the losartan * holding torsemide for now * continuing the metoprolol and midodrine (4) Cardiomyopathy: Code(s): I42.9 - Cardiomyopathy, unspecified Status: Acute Assessment and Plan: * Echo results (on 04/05) noted: * left ventricular systolic function is severely globally reduced, estimated at 15-20% * left ventricular diastolic function is grade I diastolic dysfunction * mitral valve has moderately calcified annulus * mild mitral valve regurgitation * this is a significant change from last Echo in September 2023. * stress test was negative * on metoprolol. * Losartan on hold (5) Fluid overload: Qualifiers: Hypervolemia type: unspecified Qualified Code(s): E87.70 - Fluid overload, unspecified Code(s): E87.70 - Fluid overload, unspecified Status: Acute Assessment and Plan: improved with dialysis alone. * Diuretics on hold (6) Hypokalemia: Code(s): E87.6 - Hypokalemia Status: Acute Assessment and Plan: resolved (7) HTN (hypertension): Code(s): I10 - Essential (primary) hypertension Status: Chronic Assessment and Plan: complicated by #3 * BP medications on hold (8) Anemia of chronic disease: Code(s): D63.8 - Anemia in other chronic diseases classified elsewhere Status: Acute Assessment and Plan: hemoglobin is still WNL, * Epogen on hold. Check another level tomorrow (9) Generalized weakness: Code(s): R53.1 - Weakness Status: Acute Assessment and Plan: suspect related to recent hospitalization/deconditioning in association with prior influenza infection and orthostatic hypotension * PT/OT as tolerated (10) Peripheral neuropathy: Code(s): G62.9 - Polyneuropathy, unspecified Status: Acute Assessment and Plan: the patient has severe peripheral neuropathy. He tells me he has never been diagnosed with diabetes. - B12, folate, and TSH are all okay - test for heavy metals is pending. - Consider a genetic cause? Plan - PLAN - to discharge once cleared by Neuro and Ortho static hypotension resolved. Time Spent With Patient Time with patient: Greater than 35 minutes (40 minutes) Subjective Date/time seen: 04/09/24 08:26 Interval history: This is a 54 year old male with past medical history of ESRD on peritoneal dialysis, hypertension, and polyneuropathy presented to the hospital for nausea/vomiting, weakness and multiple falls. Patient was recently admitted to the hospital from 03/09-03/21 for volume overload and respiratory failure secondary to missing PD. Today patient reports he feels well as long as he is stationary. Cardiology examined today, Euvolemic to volume depletion. Non-ischemic. He is currently stable on Metoprolol 12.5 mg BID, Losartan 12.5 mg daily, Jardiance 10 mg daily. They did discuss life vest to prevent sudden cardiac arrest but he is not interested. Per Cardiology- the patient's cardiomyopathy does not cause orthostatic hypotension, nausea, or falls. LVEF 45% on Nuc med stress test 04/07 - noted no ischemic changes. Orthostatic symptoms today, Blood pressure 123/78-->98/58 sitting. Mildly dizzy with the low blow blood pressure. He reports when he stands he becomes weak in his legs and light headed. Patient take the peritoneal dialysis this p.m., he tolerated that very well. Nephrology is following. He has not gotten up to ambulate this am, he reports he is concerned with the weakness that he will fall. He states he has no nausea, vomiting diarrhea, he has no cough, shortness of breath or chest pain. He continues with PT OT, neurology is consulted 04/07/24 awaiting evaluation. Review of Systems Review of Systems: All systems reviewed & are unremarkable except as noted in HPI and below Exam Const: General: cooperative, no acute distress, alert and awake HENMT: Head: normal to inspection and normocephalic Eyes: General: appearance normal, both eyes and all related structures Neck: Neck: normal visual inspection, full ROM and no lymphadenopathy Chest: Chest palpation & inspection: normal inspection of the chest Resp: Effort & Inspection: normal respiratory effort Auscultation: clear to auscultation bilaterally Cardio: Jugular venous distension: no JVD Palpation: normal PMI Rate: regular rate Rhythm: regular rhythm Heart sounds: S1 normal heart sound present and S2 normal heart sound present GI: Inspection: normal to inspection GI Palp: Yes Soft to palpation Auscultation: normal bowel sounds Other: Peritoneal dialysis catheter noted Back/Spine/Pelvis: Back: no CVA tenderness Skin: General skin exam: normal color and no rashes or lesions noted Neuro: General: oriented to person, oriented to place, oriented to time, patient oriented x3, tone normal and moves all extremities Extrem: General: normal to inspection, full ROM, capillary refill normal, normal exam except as noted and no joint enlargement Psych: Appearance: grossly normal Mental Status: mental status grossly normal Speech and movement: Normal speech and movement present Objective Data Vital Signs Vital Signs: Vital Signs - 24 hr 04/08/24 13:52 04/08/24 16:00 04/08/24 20:00 Temperature 98.2 F Pulse Rate 94 78 78 Respiratory Rate 18 18 Blood Pressure 104/72 Pulse Oximetry 97 97 Oxygen Delivery Room Air 04/08/24 20:00 04/08/24 22:09 04/08/24 22:09 Temperature 97.7 F Pulse Rate 88 92 92 Respiratory Rate 16 Blood Pressure 119/88 119/88 Pulse Oximetry 96 Oxygen Delivery 04/08/24 22:13 04/08/24 22:20 04/09/24 00:00 Temperature Pulse Rate 103 H 111 H 74 Respiratory Rate Blood Pressure 120/79 95/64 L Pulse Oximetry Oxygen Delivery 04/09/24 04:00 04/09/24 05:16 04/09/24 08:43 Temperature 97.6 F Pulse Rate 78 87 104 H Respiratory Rate 16 Blood Pressure 114/79 Pulse Oximetry 95 Oxygen Delivery 04/09/24 10:00 Temperature 97.6 F Pulse Rate 87 Respiratory Rate 16 Blood Pressure 114/79 Pulse Oximetry Oxygen Delivery Intake/Output Intake/Output: Intake & Output 04/06/24 04/07/24 04/08/24 04/09/24 23:59 23:59 23:59 23:59 Intake Total 0275 069 5255 590 Output Total 6357 220 0035 Balance -179 930 341 -1606 Meds/Results Medications: Active Medications Generic Name Dose Route Start Last Admin Trade Name Freq PRN Reason Stop Dose Admin Acetaminophen 650 mg 03/29/24 07:25 04/06/24 08:49 Acetaminophen 325 Mg Tablet PO 650 mg Q4H PRN Administration Mild Pain (1-3) or Fever Hydrocodone Bitart/Acetaminophen 1 tab 03/30/24 12:41 04/08/24 20:59 Hydrocodone/Acetaminophen (*Crx) 5-325 Mg Tablet PO 1 tab Q8H PRN Administration Pain Rated 6 or Greater Buspirone HCl 10 mg 03/29/24 09:00 04/09/24 12:02 Buspirone Hcl 10 Mg Tablet PO 10 mg TID CARIDAD Administration Calcium Acetate 2,668 mg 03/29/24 08:00 04/09/24 12:01 Calcium Acetate 667 Mg Tablet PO 2,668 mg TIDWM CARIDAD Administration Calcium Carbonate 200 mg 03/29/24 07:14 Calcium Carbonate (Tums) 500 Mg (200 Mg Elemental) PO HS PRN Indigestion Cinacalcet 90 mg 03/29/24 09:00 04/09/24 08:44 Cinacalcet 30 Mg Tablet PO 90 mg DAILY CARIDAD Administration Dextrose 12.5 gm 03/29/24 07:25 Dextrose 50% 25 Gm/50 Ml Syringe IV PUSH PRN PRN Hypoglycemia Protocol Diphenoxylate HCl/Atropine 1 tablet 03/31/24 15:10 04/08/24 17:47 Diphenoxylate/Atropine (*Crx) 2.5 Mg Tablet PO 1 tablet QID PRN Administration diarrhea Empagliflozin 10 mg 04/07/24 09:00 04/09/24 08:44 Empagliflozin 10 Mg Tablet PO 10 mg DAILY CARIDAD Administration Enoxaparin Sodium 30 mg 03/30/24 09:00 04/09/24 08:57 Enoxaparin 30 Mg/0.3 Ml Syringe SUB-Q 30 mg DAILY CARIDAD Administration Escitalopram Oxalate 10 mg 03/29/24 09:00 04/09/24 08:44 Escitalopram Oxalate 10 Mg Tablet PO 10 mg DAILY CARIDAD Administration Gabapentin 300 mg 03/29/24 09:00 04/09/24 12:01 Gabapentin 300 Mg Capsule PO 300 mg TID CARIDAD Administration Gentamicin Sulfate 1 applic 03/31/24 15:10 04/06/24 17:47 Gentamicin Sulfate 0.1% Cr 15 Gm Tube TOPICAL 1 applic TID PRN Administration DIALYSIS CATH. Glucagon 1 mg 03/29/24 07:25 Glucagon For Inj 1 Mg Vial IM PRN PRN Hypoglycemia Protocol Glucose 15 gm 03/29/24 07:25 Glucose Oral Gel 15 Gm Of Glucse In 37.5 Gm Tube PO PRN PRN Hypoglycemia Protocol Dextrose 1,000 mls @ 100 mls/hr 03/29/24 07:25 Dextrose 5% 1,000 Ml IVPB PRN PRN Hypoglycemia Protocol Losartan Potassium 12.5 mg 04/07/24 09:00 04/09/24 08:43 Losartan Potassium 12.5 Mg Tablet PO 12.5 mg DAILY CARIDAD Administration Metoprolol Tartrate 12.5 mg 04/04/24 21:00 04/09/24 08:43 Metoprolol Tartrate 12.5 Mg Tablet PO 12.5 mg Q12HR CARIDAD Administration Midodrine 10 mg 04/02/24 17:00 04/09/24 12:01 Midodrine Hcl 2.5 Mg Tablet PO 10 mg TID CARIDAD Administration Miscellaneous Information 0 each 04/08/24 00:01 04/08/24 16:44 Please Renew [place]- 10 Day [employer] For Narcotic XX 05/08/24 00:00 Not Given CLARIFY CARIDAD Nortriptyline HCl 50 mg 03/29/24 21:00 04/08/24 20:59 Nortriptyline Hcl 25 Mg Capsule PO 50 mg HS CARIDAD Administration Ondansetron HCl 4 mg 03/29/24 00:21 04/05/24 12:30 Ondansetron Inj 4 Mg/2 Ml Vial IV PUSH 4 mg Q4H PRN Administration Nausea Ondansetron HCl 8 mg 04/05/24 12:41 04/06/24 08:52 Ondansetron Hcl Odt 4 Mg Tablet SUBLINGUAL 8 mg Q8H PRN Administration nausea and vomiting Pantoprazole Sodium 40 mg 03/29/24 09:00 04/09/24 08:44 Pantoprazole 40 Mg Tablet PO 40 mg QAM CARIDAD Administration Potassium Chloride 40 meq 03/29/24 09:00 04/04/24 08:59 Potassium Chloride 20 Meq Er Tablet PO 40 meq DAILY CARIDAD Administration Torsemide 100 mg 03/29/24 09:00 04/01/24 09:27 Torsemide 20 Mg Tablet PO 100 mg QAM CARIDAD Administration Radiology Results: ITS Impressions Abdomen/Pelvis CT 03/28/24 21:54 IMPRESSION: No acute intra-abdominal pathology. Innumerable nonacute findings, as detailed above. Head CT 03/29/24 14:57 IMPRESSION: 1. 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 2. Stable moderate nonspecific cerebral white matter disease, which likely represents chronic small vessel ischemic disease. Cervical Spine CT 03/29/24 15:03 IMPRESSION: 1. No fracture 2. Severe cervical spondylosis. Thoracic/Lumbar Spine CT 03/29/24 15:07 IMPRESSION: 1. No fracture. 2. Moderate thoracic and lumbar spondylosis. Chest X-Ray 04/06/24 08:02 Impression: Central congestive change and possible minimal bibasilar interstitial edema. Lexiscan Stress Test 04/07/24 12:19 IMPRESSION: 1. Normal myocardial perfusion at rest and during stress. 2. Left ventricular ejection fraction measuring 49%. Labs Labs: Laboratory Results - last 24 hr 04/09/24 05:42 WBC 8.1 RBC 3.65 L Hgb 11.7 L Hct 36.8 L MCV 100.8 H MCH 32.1 MCHC 31.8 L RDW 12.8 Plt Count 419 H MPV 8.9 Immature Gran % (Auto) 0.5 Neut % (Auto) 41.6 L Lymph % (Auto) 26.7 Holmes % (Auto) 15.0 H Eos % (Auto) 15.3 H Baso % (Auto) 0.9 Lymph # (Auto) 2.15 [place] # (Auto) 1.2 H Eos # (Auto) 1.2 H Baso # (Auto) 0.1 Abs Immat Gran (auto) 0.04 H Absolute Neuts (auto) 3.4 Absolute Nucleated RBC 0.000 Nucleated RBC % 0.0 Sodium 135 L Potassium 4.0 Chloride 95 L Carbon Dioxide 25 Anion Gap 15 H BUN 50 H Creatinine 13.46 H Estim Creat Clear Calc 7 Estimated GFR 4 L Glucose 93 Calcium 7.5 L Phosphorus 8.8 H Magnesium 1.8 Total Bilirubin 0.4 AST 19 ALT 16 Alkaline Phosphatase 136 H Total Protein 6.0 L Albumin 3.2 L Hospitalist MIPS Advance Care Plan I have confirmed that the patient's Advanced Care Plan is present, code status is documented, or surrogate decision maker is listed in patient medical record.: Yes Medication Reconciliation I have utilized all available resources to obtain, update and review the patients current medications (includes all prescriptions, OTC, herbals, cannabis, and nutritional supplements).: Yes
[2024-04-09] MEDS: NORTRIPTYLINE HCL 25 MG CAPSULE 50 MG PO (20:12)
[2024-04-09] MEDS: HYDROcodone/acetaminophen (*CRX) 5-325 MG TABLET 1 TAB PO (20:12)
[2024-04-10] VITALS (15 sets, daily range): BP systolic 79–126; BP diastolic 49–85; PULSE 76–104; RESP 16–20; TEMP 36.5–36.9; O2SAT 90–97
[2024-04-10 06:44] LABS: Basophils Absolute Auto 0.1 K/mm3 (0.0-0.1); Eosinophils Absolute Auto 1.1 K/mm3 (0-0.3); Eosinophils Percent Auto 13.5 % (0-4.4); Hematocrit 38.6 % (42.0-52.0); Hemoglobin 12.3 g/dL (14.0-18.0); Immature Granulocyte Absolute 0.03 K/mm3 (0.00-0.031); Immature Granulocyte Percent A 0.4 % (0-0.5); Lymphocytes Absolute Auto 2.25 K/mm3 (0.9-3.2); Lymphocytes Percent Auto 27.8 % (18.3-44.2); Mean Corpuscular HGB Conc 31.9 g/dl (32-36); Mean Corpuscular Hemoglobin 31.2 pg (26-34); Mean Platelet Volume 8.7 fl (7.4-10.4); Monocytes Absolute Auto 1.2 K/mm3 (0.1-0.6); Monocytes Percent Auto 14.6 % (2.6-8.5); Neutrophils Absolute Auto 3.5 K/mm3 (1.3-6.7); Neutrophils Percent Auto 42.7 % (45.5-73.1); Platelet Count Result 433 k/mm3 (150-375); Red Blood Count 3.94 M/mm3 (4.6-6.20); Red Cell Distribution Width 12.8 % (11.5-14.5); White Blood Count 8.1 K/mm3 (4.5-10.0)
[2024-04-10 06:52] LABS: Alanine Aminotransferase 18 U/L (6-50); Albumin Level 3.3 g/dL (3.5-5.1); Alkaline Phosphatase 131 U/L (38-126); Anion Gap 14 mmol/L (4-12); Aspartate Amino Transferase 21 U/L (17-59); Bilirubin,Total 0.5 mg/dL (0.2-1.3); Blood Urea Nitrogen 46 mg/dL (9-20); Calcium 7.8 mg/dL (8.4-10.2); Carbon Dioxide 25 mmol/L (22-30); Chloride 94 mmol/L (98-107); Estimated CRCL calculation 7 ml/min; Estimated Glomerular Filt Rate 4; Glucose 95 mg/dL (65-110); Magnesium 1.6 mg/dL (1.6-2.3); Phosphorus 8.2 mg/dL (2.5-4.5); Potassium 3.5 mmol/L (3.4-5.0); Sodium 133 mmol/L (137-145)
--- NOTE | 2024-04-10 07:02 | P.PNIM_ITS ---
Progress Note: A&P Assessment and Plan (1) End-stage renal disease on peritoneal dialysis: Code(s): N18.6 - End stage renal disease; Z99.2 - Dependence on renal dialysis Status: Acute Assessment and Plan: * continue nightly peritoneal dialysis * nephrology following (2) Multiple falls: Code(s): R29.6 - Repeated falls Status: Acute Assessment and Plan: * continue PT and OT * plan is to go home with [facility] when medically stable (3) Orthostatic hypotension: Code(s): I95.1 - Orthostatic hypotension Status: Acute Assessment and Plan: * continue midodrine and metoprolol * continue holding losartan and torsemide * neurology consulted for further assistance * losartan placed on hold (4) Cardiomyopathy: Code(s): I42.9 - Cardiomyopathy, unspecified Status: Acute Assessment and Plan: * echocardiogram showing severely reduced LV systolic function with an estimated EF of 15-20%, grade 1 diastolic dysfunction * continue metoprolol * losartan and torsemide on hold due to orthostatic hypotension (5) Fluid overload: Qualifiers: Hypervolemia type: unspecified Qualified Code(s): E87.70 - Fluid overload, unspecified Code(s): E87.70 - Fluid overload, unspecified Status: Acute Assessment and Plan: * improved with peritoneal dialysis (6) Anemia of chronic disease: Code(s): D63.8 - Anemia in other chronic diseases classified elsewhere Status: Acute Assessment and Plan: * likely secondary to to be end-stage renal disease (7) Generalized weakness: Code(s): R53.1 - Weakness Status: Acute Assessment and Plan: * continue PT and OT * plan for home health when stable for discharge (8) Peripheral neuropathy: Code(s): G62.9 - Polyneuropathy, unspecified Status: Chronic Assessment and Plan: * 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 * Heavy metals testing pending * B12, folate, and TSH are WNL Time Spent With Patient Time with patient: Greater than 35 minutes Subjective Date/time seen: 04/10/24 07:02 Interval history: Interval history: This is a 49 year old male with a significant past medical history end-stage renal on peritoneal dialysis hypertension, polyneuropathy who presented to the hospital initially on 03/29/2024 with complaints of nausea /vomiting, fluid overload, and weakness. Patient had an echocardiogram done on 04/05 24 which shown severely reduced left ventricular systolic function with an estimated EF of 15-20%, grade 1 diastolic dysfunction, moderate mitral valve calcification and mild regurgitation He was found to have orthostatic hypotension that was not coming from a cardiac origin. He was placed on midodrine and shown some improvement. Subjective: Patient denies any fever, chills, nausea, vomiting, abdominal pain, chest pain, shortness a breath. He does endorse diarrhea however he says that is chronic due to his peritoneal dialysis. He also does endorse lightheadedness and dizziness when changing positions. Labs and imaging reviewed. Review of Systems Review of Systems: All systems reviewed & are unremarkable except as noted in HPI and below Exam Narrative: General: In no acute distress, well nourished Head: atraumatic, no encephalopathy Eyes: PERRLA, sclera clear ENT: moist mucous membranes, nasal passages clear Neck: supple, no JVD, no adenopathy, trachea midline Cardiac: Normal S1 and S2. No murmur, gallops or friction rubs, peripheral pulses intact. Respiratory: Lungs clear to auscultation, no adventitious lung sounds , currently on room air Gastrointestinal: soft, non-distended, non-tender, normoactive bowel sounds. : voiding without difficulty. Extremities: moves all extremities well, no edema Skin: clean, dry, intact. No wounds or lesions. Neuro: Alert and oriented x4, cranial nerves intact, no neuro deficits. Psych: normal mood, normal affect, interactive Objective Data Vital Signs Vital Signs: Vital Signs - 24 hr 04/09/24 08:00 04/09/24 08:00 04/09/24 08:00 Temperature Pulse Rate 88 83 Respiratory Rate Blood Pressure 134/91 H Pulse Oximetry Oxygen Delivery Room Air 04/09/24 08:43 04/09/24 10:00 04/09/24 12:00 Temperature 97.6 F Pulse Rate 104 H 87 80 Respiratory Rate 16 Blood Pressure 114/79 Pulse Oximetry Oxygen Delivery 04/09/24 14:00 04/09/24 14:40 04/09/24 14:40 Temperature 98.1 F Pulse Rate 84 82 102 H Respiratory Rate 18 Blood Pressure 164/91 H 105/64 83/56 L Pulse Oximetry 98 Oxygen Delivery 04/09/24 16:00 04/09/24 19:52 04/09/24 19:54 Temperature 97.1 F L 97.1 F L Pulse Rate 102 H 90 93 Respiratory Rate 18 18 Blood Pressure 125/80 98/71 L Pulse Oximetry 97 99 Oxygen Delivery 04/09/24 19:56 04/09/24 19:57 04/09/24 20:00 Temperature 97.1 F L 97.1 F L Pulse Rate 102 H 90 90 Respiratory Rate 18 18 18 Blood Pressure 96/61 L 128/80 Pulse Oximetry 100 97 97 Oxygen Delivery Room Air 04/09/24 20:00 04/10/24 00:00 04/10/24 03:47 Temperature 97.7 F Pulse Rate 85 83 83 Respiratory Rate 18 Blood Pressure 113/70 Pulse Oximetry 90 Oxygen Delivery 04/10/24 04:00 Temperature Pulse Rate 81 Respiratory Rate Blood Pressure Pulse Oximetry Oxygen Delivery Intake/Output Intake/Output: Intake & Output 04/07/24 04/08/24 04/09/24 04/10/24 23:59 23:59 23:59 23:59 Intake Total 930 1000 1070 290 Output Total 659 2196 Balance 930 341 -1126 290 Meds/Results Medications: Active Medications Generic Name Dose Route Start Last Admin Trade Name Freq PRN Reason Stop Dose Admin Acetaminophen 650 mg 03/29/24 07:25 04/06/24 08:49 Acetaminophen 325 Mg Tablet PO 650 mg Q4H PRN Administration Mild Pain (1-3) or Fever Hydrocodone Bitart/Acetaminophen 1 tab 03/30/24 12:41 04/09/24 20:12 Hydrocodone/Acetaminophen (*Crx) 5-325 Mg Tablet PO 1 tab Q8H PRN Administration Pain Rated 6 or Greater Buspirone HCl 10 mg 03/29/24 09:00 04/09/24 17:54 Buspirone Hcl 10 Mg Tablet PO 10 mg TID CARIDAD Administration Calcium Acetate 2,668 mg 03/29/24 08:00 04/09/24 17:54 Calcium Acetate 667 Mg Tablet PO 2,668 mg TIDWM CARIDAD Administration Calcium Carbonate 200 mg 03/29/24 07:14 Calcium Carbonate (Tums) 500 Mg (200 Mg Elemental) PO HS PRN Indigestion Cinacalcet 90 mg 03/29/24 09:00 04/09/24 08:44 Cinacalcet 30 Mg Tablet PO 90 mg DAILY CARIDAD Administration Dextrose 12.5 gm 03/29/24 07:25 Dextrose 50% 25 Gm/50 Ml Syringe IV PUSH PRN PRN Hypoglycemia Protocol Diphenoxylate HCl/Atropine 1 tablet 03/31/24 15:10 04/08/24 17:47 Diphenoxylate/Atropine (*Crx) 2.5 Mg Tablet PO 1 tablet QID PRN Administration diarrhea Empagliflozin 10 mg 04/07/24 09:00 04/09/24 08:44 Empagliflozin 10 Mg Tablet PO 10 mg DAILY CARIDAD Administration Enoxaparin Sodium 30 mg 03/30/24 09:00 04/09/24 08:57 Enoxaparin 30 Mg/0.3 Ml Syringe SUB-Q 30 mg DAILY CARIDAD Administration Escitalopram Oxalate 10 mg 03/29/24 09:00 04/09/24 08:44 Escitalopram Oxalate 10 Mg Tablet PO 10 mg DAILY CARIDAD Administration Gabapentin 300 mg 03/29/24 09:00 04/09/24 17:54 Gabapentin 300 Mg Capsule PO 300 mg TID CARIDAD Administration Gentamicin Sulfate 1 applic 03/31/24 15:10 04/06/24 17:47 Gentamicin Sulfate 0.1% Cr 15 Gm Tube TOPICAL 1 applic TID PRN Administration DIALYSIS CATH. Glucagon 1 mg 03/29/24 07:25 Glucagon For Inj 1 Mg Vial IM PRN PRN Hypoglycemia Protocol Glucose 15 gm 03/29/24 07:25 Glucose Oral Gel 15 Gm Of Glucse In 37.5 Gm Tube PO PRN PRN Hypoglycemia Protocol Dextrose 1,000 mls @ 100 mls/hr 03/29/24 07:25 Dextrose 5% 1,000 Ml IVPB PRN PRN Hypoglycemia Protocol Losartan Potassium 12.5 mg 04/07/24 09:00 04/09/24 08:43 Losartan Potassium 12.5 Mg Tablet PO 12.5 mg DAILY CARIDAD Administration Metoprolol Tartrate 12.5 mg 04/04/24 21:00 04/09/24 20:12 Metoprolol Tartrate 12.5 Mg Tablet PO 12.5 mg Q12HR CARIDAD Administration Midodrine 10 mg 04/02/24 17:00 04/09/24 17:54 Midodrine Hcl 2.5 Mg Tablet PO 10 mg TID CARIDAD Administration Miscellaneous Information 0 each 04/08/24 00:01 04/08/24 16:44 Please Renew Wink- 10 Day [employer] For Narcotic XX 05/08/24 00:00 Not Given CLARIFY CARIDAD Nortriptyline HCl 50 mg 03/29/24 21:00 04/09/24 20:12 Nortriptyline Hcl 25 Mg Capsule PO 50 mg HS CARIDAD Administration Ondansetron HCl 4 mg 03/29/24 00:21 04/05/24 12:30 Ondansetron Inj 4 Mg/2 Ml Vial IV PUSH 4 mg Q4H PRN Administration Nausea Ondansetron HCl 8 mg 04/05/24 12:41 04/06/24 08:52 Ondansetron Hcl Odt 4 Mg Tablet SUBLINGUAL 8 mg Q8H PRN Administration nausea and vomiting Pantoprazole Sodium 40 mg 03/29/24 09:00 04/09/24 08:44 Pantoprazole 40 Mg Tablet PO 40 mg QAM CARIDAD Administration Potassium Chloride 40 meq 03/29/24 09:00 04/04/24 08:59 Potassium Chloride 20 Meq Er Tablet PO 40 meq DAILY CARIDAD Administration Torsemide 100 mg 03/29/24 09:00 04/01/24 09:27 Torsemide 20 Mg Tablet PO 100 mg QAM CARIDAD Administration Radiology Results: ITS Impressions Abdomen/Pelvis CT 03/28/24 21:54 IMPRESSION: No acute intra-abdominal pathology. Innumerable nonacute findings, as detailed above. Head CT 03/29/24 14:57 IMPRESSION: 1. 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 2. Stable moderate nonspecific cerebral white matter disease, which likely represents chronic small vessel ischemic disease. Cervical Spine CT 03/29/24 15:03 IMPRESSION: 1. No fracture 2. Severe cervical spondylosis. Thoracic/Lumbar Spine CT 03/29/24 15:07 IMPRESSION: 1. No fracture. 2. Moderate thoracic and lumbar spondylosis. Chest X-Ray 04/06/24 08:02 Impression: Central congestive change and possible minimal bibasilar interstitial edema. Lexiscan Stress Test 04/07/24 12:19 IMPRESSION: 1. Normal myocardial perfusion at rest and during stress. 2. Left ventricular ejection fraction measuring 49%. Labs Labs: Laboratory Results - last 24 hr 04/10/24 06:27 Sodium 133 L Potassium 3.5 Chloride 94 L Carbon Dioxide 25 Anion Gap 14 H BUN 46 H Creatinine 13.38 H Estim Creat Clear Calc 7 Estimated GFR 4 L Glucose 95 Calcium 7.8 L Phosphorus 8.2 H Magnesium 1.6 Total Bilirubin 0.5 AST 21 ALT 18 Alkaline Phosphatase 131 H Total Protein 6.0 L Albumin 3.3 L Quality VTE Prophylaxis VTE prophylaxis: pharmacologic ordered
[2024-04-10] MEDS: ENOXAPARIN 30 MG/0.3 ML SYRINGE SUB-Q (08:48)
[2024-04-10] MEDS: ACETAMINOPHEN 325 MG TABLET 650 MG PO (08:48)
[2024-04-10] MEDS: MIDODRINE HCL 2.5 MG TABLET 10 MG PO (08:49)
[2024-04-10] MEDS: CINACALCET 30 MG TABLET 90 MG PO (08:49)
[2024-04-10] MEDS: CALCIUM ACETATE 667 MG TABLET 2668 MG PO ×3 (08:49→17:40)
[2024-04-10] MEDS: PANTOPRAZOLE 40 MG TABLET PO (08:50)
[2024-04-10] MEDS: ESCITALOPRAM OXALATE 10 MG TABLET PO (08:50)
[2024-04-10] MEDS: busPIRone HCL 10 MG TABLET PO ×3 (08:51→17:40)
[2024-04-10] MEDS: GABAPENTIN 300 MG CAPSULE PO ×3 (08:51→17:40)
[2024-04-10] MEDS: METOPROLOL TARTRATE 12.5 MG TABLET PO ×2 (08:51→20:53)
[2024-04-10] MEDS: EMPAGLIFLOZIN 10 MG TABLET PO (08:51)
--- NOTE | 2024-04-10 09:26 | P.PNNP_ITS ---
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 * stable moderate nonspecific cerebral white matter disease, which likely represents chronic small vessel ischemic disease * just on metoprolol for now * continue PT/OT as tolerated (3) Orthostatic hypotension: Code(s): I95.1 - Orthostatic hypotension Status: Acute Assessment and Plan: * still present * as noted by vital signs on admission and recently * on midodrine therapy * evaluation to date noted: * TSH okay * cortisol reasonable But with the severity of the orthostatic hypotension will check a Cortrosyn stim test * Echo results noted -- see #4 * neuropathy contributing (?) -- pulse does not rise very much when his blood pressure dropped suggesting this is playing a role * blood pressure medications, antidepressants and empagliflozin are on the list of drugs that exacerbate orthostatic hypotension * holding the losartan and torsemide for now * continuing the metoprolol and midodrine (4) Cardiomyopathy: Code(s): I42.9 - Cardiomyopathy, unspecified Status: Acute Assessment and Plan: * Echo results (on 04/05) noted: * left ventricular systolic function is severely globally reduced, estimated at 15-20% * left ventricular diastolic function is grade I diastolic dysfunction * mitral valve has moderately calcified annulus * mild mitral valve regurgitation * this is a significant change from last Echo in September 2023. * HOWEVER, stress test was negative and reports an EF of 49% * on metoprolol (5) Fluid overload: Qualifiers: Hypervolemia type: unspecified Qualified Code(s): E87.70 - Fluid overload, unspecified Code(s): E87.70 - Fluid overload, unspecified Status: Acute Assessment and Plan: * stable if not improved with dialysis therapy * diuretics on hold * follow volume status (6) Anemia: Code(s): D64.9 - Anemia, unspecified Status: Acute Assessment and Plan: * hemoglobin is still supratherapeutic for ESRD * Epogen on hold * follow trend of H/H (7) Generalized weakness: Code(s): R53.1 - Weakness Status: Acute Assessment and Plan: * suspect related to recent hospitalization/deconditioning in association with prior influenza infection and orthostatic hypotension * PT/OT as tolerated (8) Peripheral neuropathy: Code(s): G62.9 - Polyneuropathy, unspecified Status: Chronic Assessment and Plan: * known diagnosis * etiology not clear * b12, TSH, and folate okay * heavy metal testing pending Will continue to follow. L Subjective Date/time seen: 04/10/24 09:26 Interval history: Follow-up for end stage renal disease on peritoneal dialysis. Chart reviewed since last seen -- reports feeling better overall/in general at the time of my visit; tolerated peritoneal dialysis treatment overnight without any issues or problems ([facility] supervised and sen at 9:15AM); still reports some mild lightheadedness with ambulation and positive orthostatic BP noted earlier this AM; no other acute issues/complaints voiced; no apparent distress. Exam 2 Narrative: General: WD/WN male in NAD Heart: normal S1 and S2; no rub Lungs: clear anteriorly Abdomen: soft, nontender, nondistended, positive bowel sounds Extremities: no cyanosis or clubbing; trace edema Skin: no nodules Objective Data Vital Signs Vital Signs: Vital Signs Temp Pulse Resp BP Pulse Ox O2 Del Method 04/10/24 08:51 99 04/10/24 08:25 104 H 79/49 L (standing) 04/10/24 08:23 102 H 89/58 L (sitting) 04/10/24 08:20 118/79 (supine) 04/10/24 08:00 82 04/10/24 08:00 Room Air 04/10/24 04:00 81 04/10/24 03:47 97.7 F 83 18 113/70 90 04/10/24 00:00 83 04/09/24 20:00 85 04/09/24 20:00 90 18 97 Room Air 04/09/24 19:57 97.1 F L 90 18 128/80 97 04/09/24 19:56 97.1 F L 102 H 18 96/61 L 100 02/16/25 19:54 97.1 F L 93 18 98/71 L 99 04/09/24 19:52 97.1 F L 90 18 125/80 97 04/09/24 16:00 102 H 04/09/24 14:40 102 H 83/56 L 04/09/24 14:40 82 105/64 04/09/24 14:00 98.1 F 84 18 164/91 H 98 Intake/Output Intake/Output: Intake & Output 04/07/24 04/08/24 04/09/24 04/10/24 23:59 23:59 23:59 23:59 Intake Total 930 1000 1070 530 Output Total 659 2196 703 Balance 937 047 -1920 -075 Meds/Results Medications: Active Medications Generic Name Dose Route Start Last Admin Trade Name Freq PRN Reason Stop Dose Admin Acetaminophen 650 mg 03/29/24 07:25 04/10/24 08:48 Acetaminophen 325 Mg Tablet PO 650 mg Q4H PRN Administration Mild Pain (1-3) or Fever Hydrocodone Bitart/Acetaminophen 1 tab 03/30/24 12:41 04/09/24 20:12 Hydrocodone/Acetaminophen (*Crx) 5-325 Mg Tablet PO 1 tab Q8H PRN Administration Pain Rated 6 or Greater Buspirone HCl 10 mg 03/29/24 09:00 04/10/24 12:14 Buspirone Hcl 10 Mg Tablet PO 10 mg TID CARIDAD Administration Calcium Acetate 2,668 mg 03/29/24 08:00 04/10/24 12:14 Calcium Acetate 667 Mg Tablet PO 2,668 mg TIDWM CARIDAD Administration Calcium Carbonate 200 mg 03/29/24 07:14 Calcium Carbonate (Tums) 500 Mg (200 Mg Elemental) PO HS PRN Indigestion Cinacalcet 90 mg 03/29/24 09:00 04/10/24 08:49 Cinacalcet 30 Mg Tablet PO 90 mg DAILY CARIDAD Administration Dextrose 12.5 gm 03/29/24 07:25 Dextrose 50% 25 Gm/50 Ml Syringe IV PUSH PRN PRN Hypoglycemia Protocol Diphenoxylate HCl/Atropine 1 tablet 03/31/24 15:10 04/08/24 17:47 Diphenoxylate/Atropine (*Crx) 2.5 Mg Tablet PO 1 tablet QID PRN Administration diarrhea Empagliflozin 10 mg 04/07/24 09:00 04/10/24 08:51 Empagliflozin 10 Mg Tablet PO 10 mg DAILY CARIDAD Administration Enoxaparin Sodium 30 mg 03/30/24 09:00 04/10/24 08:48 Enoxaparin 30 Mg/0.3 Ml Syringe SUB-Q 30 mg DAILY CARIDAD Administration Escitalopram Oxalate 10 mg 03/29/24 09:00 04/10/24 08:50 Escitalopram Oxalate 10 Mg Tablet PO 10 mg DAILY CARIDAD Administration Gabapentin 300 mg 03/29/24 09:00 04/10/24 12:14 Gabapentin 300 Mg Capsule PO 300 mg TID CARIDAD Administration Gentamicin Sulfate 1 applic 03/31/24 15:10 04/06/24 17:47 Gentamicin Sulfate 0.1% Cr 15 Gm Tube TOPICAL 1 applic TID PRN Administration DIALYSIS CATH. Glucagon 1 mg 03/29/24 07:25 Glucagon For Inj 1 Mg Vial IM PRN PRN Hypoglycemia Protocol Glucose 15 gm 03/29/24 07:25 Glucose Oral Gel 15 Gm Of Glucse In 37.5 Gm Tube PO PRN PRN Hypoglycemia Protocol Dextrose 1,000 mls @ 100 mls/hr 03/29/24 07:25 Dextrose 5% 1,000 Ml IVPB PRN PRN Hypoglycemia Protocol Losartan Potassium 12.5 mg 04/07/24 09:00 04/09/24 08:43 Losartan Potassium 12.5 Mg Tablet PO 12.5 mg DAILY CARIDAD Administration Metoprolol Tartrate 12.5 mg 04/04/24 21:00 04/10/24 08:51 Metoprolol Tartrate 12.5 Mg Tablet PO 12.5 mg Q12HR CARIDAD Administration Midodrine 10 mg 04/10/24 13:00 04/10/24 12:22 Midodrine Hcl 10 Mg Tablet PO 10 mg TID CARIDAD Administration Nortriptyline HCl 50 mg 03/29/24 21:00 04/09/24 20:12 Nortriptyline Hcl 25 Mg Capsule PO 50 mg HS CARIDAD Administration Ondansetron HCl 4 mg 03/29/24 00:21 04/05/24 12:30 Ondansetron Inj 4 Mg/2 Ml Vial IV PUSH 4 mg Q4H PRN Administration Nausea Ondansetron HCl 8 mg 04/05/24 12:41 04/06/24 08:52 Ondansetron Hcl Odt 4 Mg Tablet SUBLINGUAL 8 mg Q8H PRN Administration nausea and vomiting Pantoprazole Sodium 40 mg 03/29/24 09:00 04/10/24 08:50 Pantoprazole 40 Mg Tablet PO 40 mg QAM CARIDAD Administration Potassium Chloride 40 meq 03/29/24 09:00 04/04/24 08:59 Potassium Chloride 20 Meq Er Tablet PO 40 meq DAILY CARIDAD Administration Torsemide 100 mg 03/29/24 09:00 04/01/24 09:27 Torsemide 20 Mg Tablet PO 100 mg QAM CARIDAD Administration Radiology Results: ITS Impressions Abdomen/Pelvis CT 03/28/24 21:54 IMPRESSION: No acute intra-abdominal pathology. Innumerable nonacute findings, as detailed above. Head CT 03/29/24 14:57 IMPRESSION: 1. 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 2. Stable moderate nonspecific cerebral white matter disease, which likely represents chronic small vessel ischemic disease. Cervical Spine CT 03/29/24 15:03 IMPRESSION: 1. No fracture 2. Severe cervical spondylosis. Thoracic/Lumbar Spine CT 03/29/24 15:07 IMPRESSION: 1. No fracture. 2. Moderate thoracic and lumbar spondylosis. Chest X-Ray 04/06/24 08:02 Impression: Central congestive change and possible minimal bibasilar interstitial edema. Lexiscan Stress Test 04/07/24 12:19 IMPRESSION: 1. Normal myocardial perfusion at rest and during stress. 2. Left ventricular ejection fraction measuring 49%. Labs Labs: Laboratory Tests 04/10/24 06:27 04/10/24 06:27 Calcium 7.8 L Phosphorus 8.2 H Magnesium 1.6 Total Bilirubin 0.5 AST 21 ALT 18 Alkaline Phosphatase 131 H Total Protein 6.0 L Albumin 3.3 L
[2024-04-10] MEDS: MIDODRINE HCL 10 MG TABLET PO ×2 (12:22→17:40)
[2024-04-10] MEDS: GENTAMICIN SULFATE 0.1% OINT 15 GM TUBE 1 APPLIC TOPICAL (19:20)
[2024-04-10] MEDS: NORTRIPTYLINE HCL 25 MG CAPSULE 50 MG PO (20:52)
[2024-04-10] MEDS: HYDROcodone/acetaminophen (*CRX) 5-325 MG TABLET 1 TAB PO (20:53)
[2024-04-10] MEDS: DIPHENOXYLATE/ATROPINE (*CRX) 2.5 MG TABLET 1 TABLET PO (21:55)
[2024-04-11] VITALS (21 sets, daily range): BP systolic 68–126; BP diastolic 46–94; PULSE 72–129; RESP 16–20; TEMP 36.3–37.2; O2SAT 96–99
[2024-04-11 06:06] LABS: Basophils Absolute Auto 0.1 K/mm3 (0.0-0.1); Eosinophils Absolute Auto 1.2 K/mm3 (0-0.3); Eosinophils Percent Auto 14.7 % (0-4.4); Hematocrit 39.3 % (42.0-52.0); Hemoglobin 12.3 g/dL (14.0-18.0); Immature Granulocyte Absolute 0.03 K/mm3 (0.00-0.031); Immature Granulocyte Percent A 0.4 % (0-0.5); Lymphocytes Absolute Auto 2.19 K/mm3 (0.9-3.2); Lymphocytes Percent Auto 26.8 % (18.3-44.2); Mean Corpuscular HGB Conc 31.3 g/dl (32-36); Mean Corpuscular Hemoglobin 31.2 pg (26-34); Mean Corpuscular Volume 99.7 fl (80-100); Mean Platelet Volume 8.7 fl (7.4-10.4); Monocytes Absolute Auto 1.2 K/mm3 (0.1-0.6); Monocytes Percent Auto 15.2 % (2.6-8.5); Neutrophils Absolute Auto 3.4 K/mm3 (1.3-6.7); Neutrophils Percent Auto 41.9 % (45.5-73.1); Platelet Count Result 446 k/mm3 (150-375); Red Blood Count 3.94 M/mm3 (4.6-6.20); Red Cell Distribution Width 12.7 % (11.5-14.5); White Blood Count 8.2 K/mm3 (4.5-10.0)
[2024-04-11 06:20] LABS: Alanine Aminotransferase 18 U/L (6-50); Albumin Level 3.3 g/dL (3.5-5.1); Alkaline Phosphatase 125 U/L (38-126); Anion Gap 17 mmol/L (4-12); Aspartate Amino Transferase 22 U/L (17-59); Bilirubin,Total 0.4 mg/dL (0.2-1.3); Blood Urea Nitrogen 51 mg/dL (9-20); Calcium 7.9 mg/dL (8.4-10.2); Carbon Dioxide 26 mmol/L (22-30); Chloride 93 mmol/L (98-107); Estimated CRCL calculation 7 ml/min; Estimated Glomerular Filt Rate 4; Glucose 105 mg/dL (65-110); Magnesium 1.7 mg/dL (1.6-2.3); Phosphorus 7.9 mg/dL (2.5-4.5); Potassium 3.7 mmol/L (3.4-5.0); Sodium 136 mmol/L (137-145)
[2024-04-11] MEDS: CALCIUM ACETATE 667 MG TABLET 2668 MG PO ×3 (08:40→17:36)
[2024-04-11] MEDS: GABAPENTIN 300 MG CAPSULE PO ×3 (08:40→17:36)
[2024-04-11] MEDS: busPIRone HCL 10 MG TABLET PO ×3 (08:40→17:36)
[2024-04-11] MEDS: EMPAGLIFLOZIN 10 MG TABLET PO (08:40)
[2024-04-11] MEDS: METOPROLOL TARTRATE 12.5 MG TABLET PO ×2 (08:40→20:56)
[2024-04-11] MEDS: MIDODRINE HCL 10 MG TABLET PO ×3 (08:41→17:36)
[2024-04-11] MEDS: ESCITALOPRAM OXALATE 10 MG TABLET PO (08:41)
[2024-04-11] MEDS: CINACALCET 30 MG TABLET 90 MG PO (08:41)
[2024-04-11] MEDS: ENOXAPARIN 30 MG/0.3 ML SYRINGE SUB-Q (08:41)
[2024-04-11] MEDS: PANTOPRAZOLE 40 MG TABLET PO (08:41)
--- NOTE | 2024-04-11 09:24 | P.PNIM_ITS ---
Progress Note: A&P Assessment and Plan (1) End-stage renal disease on peritoneal dialysis: Code(s): N18.6 - End stage renal disease; Z99.2 - Dependence on renal dialysis Status: Acute Assessment and Plan: * continue nightly peritoneal dialysis * nephrology following 04/11 * No change (2) Multiple falls: Code(s): R29.6 - Repeated falls Status: Acute Assessment and Plan: * continue PT and OT * plan is to go home with [facility] when medically stable 04/11 * No change to current treatment plan (3) Orthostatic hypotension: Code(s): I95.1 - Orthostatic hypotension Status: Acute Assessment and Plan: * continue midodrine and metoprolol * continue holding losartan and torsemide * neurology consulted for further assistance * losartan placed on hold 04/11 * Give midodrine 30 minutes before checking orthostatic blood pressures per Neurology recommendation * Vitamin D level was low on 08/12/23, will recheck * Will check Vitamin B12 today * cortisol stimulation test was normal. * Patient needs to wear abdominal binder and gladis hose when getting out of bed. (4) Cardiomyopathy: Code(s): I42.9 - Cardiomyopathy, unspecified Status: Acute Assessment and Plan: * echocardiogram showing severely reduced LV systolic function with an estimated EF of 15-20%, grade 1 diastolic dysfunction * continue metoprolol * losartan and torsemide on hold due to orthostatic hypotension 04/11 * Continue to hold losartan and torsemide (5) Fluid overload: Qualifiers: Hypervolemia type: unspecified Qualified Code(s): E87.70 - Fluid overload, unspecified Code(s): E87.70 - Fluid overload, unspecified Status: Acute Assessment and Plan: * improved with peritoneal dialysis 04/11 * no change (6) Anemia of chronic disease: Code(s): D63.8 - Anemia in other chronic diseases classified elsewhere Status: Acute Assessment and Plan: * likely secondary to to be end-stage renal disease (7) Generalized weakness: Code(s): R53.1 - Weakness Status: Acute Assessment and Plan: * continue PT and OT * plan for home health when stable for discharge 04/11 * no change (8) Peripheral neuropathy: Code(s): G62.9 - Polyneuropathy, unspecified Status: Chronic Assessment and Plan: * 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 * Heavy metals testing pending * B12, folate, and TSH are WNL 04/11 * No change Time Spent With Patient Time with patient: 25 - 35 minutes Subjective Date/time seen: 04/11/24 09:24 Interval history: Interval history: This is a 49 year old male with a significant past medical history end-stage renal on peritoneal dialysis hypertension, polyneuropathy who presented to the hospital initially on 03/29/2024 with complaints of nausea /vomiting, fluid overload, and weakness. Patient had an echocardiogram done on 04/05 24 which shown severely reduced left ventricular systolic function with an estimated EF of 15-20%, grade 1 diastolic dysfunction, moderate mitral valve calcification and mild regurgitation He was found to have orthostatic hypotension that was not coming from a cardiac origin. He was placed on midodrine and shown some improvement. Subjective: Patient remains orthostatic with low blood pressures with position changes. He dropped about 20 points from supine to sitting and then from sitting to standing another 20 points. His blood pressure got as low 68/47 when standing. Would appreciate Neurology recommendation. Labs and imaging reviewed. Review of Systems Review of Systems: All systems reviewed & are unremarkable except as noted in HPI and below Exam Narrative: General: In no acute distress, well nourished Cardiac: Normal S1 and S2. No murmur, gallops or friction rubs, peripheral pulses intact. Respiratory: Lungs clear to auscultation, no adventitious lung sounds , currently on room air Gastrointestinal: soft, non-distended, non-tender, normoactive bowel sounds. : voiding without difficulty. Neuro: Alert and oriented x4 Objective Data Vital Signs Vital Signs: Vital Signs - 24 hr 04/10/24 12:00 04/10/24 14:38 04/10/24 16:00 Temperature 98.5 F Pulse Rate 79 84 76 Respiratory Rate 16 Blood Pressure 113/78 Pulse Oximetry 97 Oxygen Delivery 04/10/24 20:00 04/10/24 20:00 04/10/24 20:00 Temperature Pulse Rate 87 81 Respiratory Rate 20 Blood Pressure 126/85 Pulse Oximetry 96 Oxygen Delivery Room Air 04/10/24 22:00 04/10/24 22:05 04/10/24 22:06 Temperature 98.2 F Pulse Rate 81 Respiratory Rate 20 Blood Pressure 126/85 95/71 L 86/59 L Pulse Oximetry 96 Oxygen Delivery 02/18/25 00:00 04/11/24 04:00 04/11/24 06:00 Temperature 97.7 F Pulse Rate 79 84 74 Respiratory Rate 20 Blood Pressure 117/70 Pulse Oximetry 96 Oxygen Delivery 04/11/24 08:40 Temperature Pulse Rate 91 Respiratory Rate Blood Pressure Pulse Oximetry Oxygen Delivery Intake/Output Intake/Output: Intake & Output 04/08/24 04/09/24 04/10/24 04/11/24 23:59 23:59 23:59 23:59 Intake Total 1000 1070 1360 300 Output Total 659 2196 703 Balance 341 -1126 657 300 Meds/Results Medications: Active Medications Generic Name Dose Route Start Last Admin Trade Name Freq PRN Reason Stop Dose Admin Acetaminophen 650 mg 03/29/24 07:25 04/10/24 08:48 Acetaminophen 325 Mg Tablet PO 650 mg Q4H PRN Administration Mild Pain (1-3) or Fever Hydrocodone Bitart/Acetaminophen 1 tab 03/30/24 12:41 04/10/24 20:53 Hydrocodone/Acetaminophen (*Crx) 5-325 Mg Tablet PO 1 tab Q8H PRN Administration Pain Rated 6 or Greater Buspirone HCl 10 mg 03/29/24 09:00 04/11/24 08:40 Buspirone Hcl 10 Mg Tablet PO 10 mg TID CARIDAD Administration Calcium Acetate 2,668 mg 03/29/24 08:00 04/11/24 08:40 Calcium Acetate 667 Mg Tablet PO 2,668 mg TIDWM CARIDAD Administration Calcium Carbonate 200 mg 03/29/24 07:14 Calcium Carbonate (Tums) 500 Mg (200 Mg Elemental) PO HS PRN Indigestion Cinacalcet 90 mg 03/29/24 09:00 04/11/24 08:41 Cinacalcet 30 Mg Tablet PO 90 mg DAILY CARIDAD Administration Dextrose 12.5 gm 03/29/24 07:25 Dextrose 50% 25 Gm/50 Ml Syringe IV PUSH PRN PRN Hypoglycemia Protocol Empagliflozin 10 mg 04/07/24 09:00 04/11/24 08:40 Empagliflozin 10 Mg Tablet PO 10 mg DAILY CARIDAD Administration Enoxaparin Sodium 30 mg 03/30/24 09:00 04/11/24 08:41 Enoxaparin 30 Mg/0.3 Ml Syringe SUB-Q 30 mg DAILY CARIDAD Administration Escitalopram Oxalate 10 mg 03/29/24 09:00 04/11/24 08:41 Escitalopram Oxalate 10 Mg Tablet PO 10 mg DAILY CARIDAD Administration Gabapentin 300 mg 03/29/24 09:00 04/11/24 08:40 Gabapentin 300 Mg Capsule PO 300 mg TID CARIDAD Administration Gentamicin Sulfate 1 applic 04/10/24 18:00 04/10/24 19:20 Gentamicin Sulfate 0.1% Oint 15 Gm Tube TOPICAL 1 applic DAILY@1800 CARIDAD Administration Glucagon 1 mg 03/29/24 07:25 Glucagon For Inj 1 Mg Vial IM PRN PRN Hypoglycemia Protocol Glucose 15 gm 03/29/24 07:25 Glucose Oral Gel 15 Gm Of Glucse In 37.5 Gm Tube PO PRN PRN Hypoglycemia Protocol Dextrose 1,000 mls @ 100 mls/hr 03/29/24 07:25 Dextrose 5% 1,000 Ml IVPB PRN PRN Hypoglycemia Protocol Losartan Potassium 12.5 mg 04/07/24 09:00 04/09/24 08:43 Losartan Potassium 12.5 Mg Tablet PO 12.5 mg DAILY CARIDAD Administration Metoprolol Tartrate 12.5 mg 04/04/24 21:00 04/11/24 08:40 Metoprolol Tartrate 12.5 Mg Tablet PO 12.5 mg Q12HR CARIDAD Administration Midodrine 10 mg 04/10/24 13:00 04/11/24 08:41 Midodrine Hcl 10 Mg Tablet PO 10 mg TID CARIDAD Administration Nortriptyline HCl 50 mg 03/29/24 21:00 04/10/24 20:52 Nortriptyline Hcl 25 Mg Capsule PO 50 mg HS CARIDAD Administration Ondansetron HCl 4 mg 03/29/24 00:21 04/05/24 12:30 Ondansetron Inj 4 Mg/2 Ml Vial IV PUSH 4 mg Q4H PRN Administration Nausea Ondansetron HCl 8 mg 04/05/24 12:41 04/06/24 08:52 Ondansetron Hcl Odt 4 Mg Tablet SUBLINGUAL 8 mg Q8H PRN Administration nausea and vomiting Pantoprazole Sodium 40 mg 03/29/24 09:00 04/11/24 08:41 Pantoprazole 40 Mg Tablet PO 40 mg QAM CARIDAD Administration Potassium Chloride 40 meq 03/29/24 09:00 04/04/24 08:59 Potassium Chloride 20 Meq Er Tablet PO 40 meq DAILY CARIDAD Administration Torsemide 100 mg 03/29/24 09:00 04/01/24 09:27 Torsemide 20 Mg Tablet PO 100 mg QAM CARIDAD Administration Radiology Results: ITS Impressions Abdomen/Pelvis CT 03/28/24 21:54 IMPRESSION: No acute intra-abdominal pathology. Innumerable nonacute findings, as detailed above. Head CT 03/29/24 14:57 IMPRESSION: 1. 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 2. Stable moderate nonspecific cerebral white matter disease, which likely represents chronic small vessel ischemic disease. Cervical Spine CT 03/29/24 15:03 IMPRESSION: 1. No fracture 2. Severe cervical spondylosis. Thoracic/Lumbar Spine CT 03/29/24 15:07 IMPRESSION: 1. No fracture. 2. Moderate thoracic and lumbar spondylosis. Chest X-Ray 04/06/24 08:02 Impression: Central congestive change and possible minimal bibasilar interstitial edema. Lexiscan Stress Test 04/07/24 12:19 IMPRESSION: 1. Normal myocardial perfusion at rest and during stress. 2. Left ventricular ejection fraction measuring 49%. Labs Labs: Laboratory Results - last 24 hr 04/07/24 04/11/24 12:51 05:43 WBC 8.2 RBC 3.94 L Hgb 12.3 L Hct 39.3 L MCV 99.7 MCH 31.2 MCHC 31.3 L RDW 12.7 Plt Count 446 H MPV 8.7 Immature Gran % (Auto) 0.4 Neut % (Auto) 41.9 L Lymph % (Auto) 26.8 [place] % (Auto) 15.2 H Eos % (Auto) 14.7 H Baso % (Auto) 1.0 Lymph # (Auto) 2.19 [place] # (Auto) 1.2 H Eos # (Auto) 1.2 H Baso # (Auto) 0.1 Abs Immat Gran (auto) 0.03 Absolute Neuts (auto) 3.4 Absolute Nucleated RBC 0.000 Nucleated RBC % 0.0 Sodium 136 L Potassium 3.7 Chloride 93 L Carbon Dioxide 26 Anion Gap 17 H BUN 51 H Creatinine 13.71 H Estim Creat Clear Calc 7 Estimated GFR 4 L Glucose 105 Calcium 7.9 L Phosphorus 7.9 H Magnesium 1.7 Total Bilirubin 0.4 AST 22 ALT 18 Alkaline Phosphatase 125 Total Protein 6.0 L Albumin 3.3 L Whole Blood Arsenic TNP Whole Blood Lead TNP WB Mercury ug/L TNP Quality VTE Prophylaxis VTE prophylaxis: pharmacologic ordered
--- NOTE | 2024-04-11 10:34 | P.PNNP_ITS ---
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 * stable moderate nonspecific cerebral white matter disease, which likely represents chronic small vessel ischemic disease * just on metoprolol for now * continue PT/OT as tolerated (3) Orthostatic hypotension: Code(s): I95.1 - Orthostatic hypotension Status: Acute Assessment and Plan: * still present * as noted by vital signs on admission and recently * on midodrine therapy * evaluation to date noted: * TSH okay * cortisol reasonable But with the severity of the orthostatic hypotension will check a Cortrosyn stim test * Echo results noted -- see #4 * neuropathy contributing (?) -- pulse does not rise very much when his blood pressure dropped suggesting this is playing a role * blood pressure medications, antidepressants and empagliflozin are on the list of drugs that exacerbate orthostatic hypotension * holding the losartan and torsemide for now * continuing the metoprolol and midodrine * Neurology consulted (4) Cardiomyopathy: Code(s): I42.9 - Cardiomyopathy, unspecified Status: Acute Assessment and Plan: * Echo results (on 04/05) noted: * left ventricular systolic function is severely globally reduced, estimated at 15-20% * left ventricular diastolic function is grade I diastolic dysfunction * mitral valve has moderately calcified annulus * mild mitral valve regurgitation * this is a significant change from last Echo in September 2023. * HOWEVER, stress test was negative and reports an EF of 49% * on metoprolol (5) Fluid overload: Qualifiers: Hypervolemia type: unspecified Qualified Code(s): E87.70 - Fluid overload, unspecified Code(s): E87.70 - Fluid overload, unspecified Status: Acute Assessment and Plan: * stable if not improved with dialysis therapy * diuretics on hold * follow volume status (6) Anemia: Code(s): D64.9 - Anemia, unspecified Status: Acute Assessment and Plan: * hemoglobin is still supratherapeutic for ESRD * Epogen on hold * follow trend of H/H (7) Generalized weakness: Code(s): R53.1 - Weakness Status: Acute Assessment and Plan: * suspect related to recent hospitalization/deconditioning in association with prior influenza infection and orthostatic hypotension * PT/OT as tolerated (8) Peripheral neuropathy: Code(s): G62.9 - Polyneuropathy, unspecified Status: Chronic Assessment and Plan: * known diagnosis * etiology not clear * b12, TSH, and folate okay * heavy metal testing pending Will continue to follow. L Subjective Date/time seen: 04/11/24 10:34 Interval history: Follow-up for end stage renal disease on peritoneal dialysis. Continue to tolerate peritoneal dialysis treatment overnight; continue have quite significant orthostatic BP readings as noted earlier this morning despite all interventions to date; no other acute issues/events voiced at the time of my visit. Exam 2 Narrative: General: WD/WN male in NAD Heart: normal S1 and S2; no rub Lungs: clear anteriorly Abdomen: soft, nontender, nondistended, positive bowel sounds Extremities: no cyanosis or clubbing; trace edema Skin: warm and dry Objective Data Vital Signs Vital Signs: Vital Signs Temp Pulse Resp BP Pulse Ox O2 Del Method 04/11/24 10:06 129 H 68/47 L (standing) 04/11/24 10:03 97 83/66 L (sitting) 04/11/24 10:00 93 102/76 (supine) 04/11/24 08:40 91 04/11/24 08:00 Room Air 04/11/24 06:00 97.7 F 74 20 117/70 96 04/11/24 04:00 84 04/11/24 00:00 79 04/10/24 22:06 86/59 L 04/10/24 22:05 95/71 L 04/10/24 22:00 98.2 F 81 20 126/85 96 04/10/24 20:00 81 20 96 Room Air 04/10/24 20:00 87 04/10/24 20:00 126/85 04/10/24 16:00 76 04/10/24 14:38 98.5 F 84 16 113/78 97 Intake/Output Intake/Output: Intake & Output 04/08/24 04/09/24 04/10/24 04/11/24 23:59 23:59 23:59 23:59 Intake Total 1000 1070 1360 540 Output Total 659 2196 703 Balance 341 -1126 657 540 Meds/Results Medications: Active Medications Generic Name Dose Route Start Last Admin Trade Name Freq PRN Reason Stop Dose Admin Acetaminophen 650 mg 03/29/24 07:25 04/10/24 08:48 Acetaminophen 325 Mg Tablet PO 650 mg Q4H PRN Administration Mild Pain (1-3) or Fever Hydrocodone Bitart/Acetaminophen 1 tab 03/30/24 12:41 04/10/24 20:53 Hydrocodone/Acetaminophen (*Crx) 5-325 Mg Tablet PO 1 tab Q8H PRN Administration Pain Rated 6 or Greater Buspirone HCl 10 mg 03/29/24 09:00 04/11/24 12:20 Buspirone Hcl 10 Mg Tablet PO 10 mg TID CARIDAD Administration Calcium Acetate 2,668 mg 03/29/24 08:00 04/11/24 12:20 Calcium Acetate 667 Mg Tablet PO 2,668 mg TIDWM CARIDAD Administration Calcium Carbonate 200 mg 03/29/24 07:14 Calcium Carbonate (Tums) 500 Mg (200 Mg Elemental) PO HS PRN Indigestion Cinacalcet 90 mg 03/29/24 09:00 04/11/24 08:41 Cinacalcet 30 Mg Tablet PO 90 mg DAILY CARIDAD Administration Dextrose 12.5 gm 03/29/24 07:25 Dextrose 50% 25 Gm/50 Ml Syringe IV PUSH PRN PRN Hypoglycemia Protocol Empagliflozin 10 mg 04/07/24 09:00 04/11/24 08:40 Empagliflozin 10 Mg Tablet PO 10 mg DAILY CARIDAD Administration Enoxaparin Sodium 30 mg 03/30/24 09:00 04/11/24 08:41 Enoxaparin 30 Mg/0.3 Ml Syringe SUB-Q 30 mg DAILY CARIDAD Administration Escitalopram Oxalate 10 mg 03/29/24 09:00 04/11/24 08:41 Escitalopram Oxalate 10 Mg Tablet PO 10 mg DAILY CARIDAD Administration Gabapentin 300 mg 03/29/24 09:00 04/11/24 12:20 Gabapentin 300 Mg Capsule PO 300 mg TID CARIDAD Administration Gentamicin Sulfate 1 applic 04/10/24 18:00 04/10/24 19:20 Gentamicin Sulfate 0.1% Oint 15 Gm Tube TOPICAL 1 applic DAILY@1800 CARIDAD Administration Glucagon 1 mg 03/29/24 07:25 Glucagon For Inj 1 Mg Vial IM PRN PRN Hypoglycemia Protocol Glucose 15 gm 03/29/24 07:25 Glucose Oral Gel 15 Gm Of Glucse In 37.5 Gm Tube PO PRN PRN Hypoglycemia Protocol Dextrose 1,000 mls @ 100 mls/hr 03/29/24 07:25 Dextrose 5% 1,000 Ml IVPB PRN PRN Hypoglycemia Protocol Losartan Potassium 12.5 mg 04/07/24 09:00 04/09/24 08:43 Losartan Potassium 12.5 Mg Tablet PO 12.5 mg DAILY CARIDAD Administration Metoprolol Tartrate 12.5 mg 04/04/24 21:00 04/11/24 08:40 Metoprolol Tartrate 12.5 Mg Tablet PO 12.5 mg Q12HR CARIDAD Administration Midodrine 10 mg 04/10/24 13:00 04/11/24 12:20 Midodrine Hcl 10 Mg Tablet PO 10 mg TID CARIDAD Administration Nortriptyline HCl 50 mg 03/29/24 21:00 04/10/24 20:52 Nortriptyline Hcl 25 Mg Capsule PO 50 mg HS CARIDAD Administration Ondansetron HCl 4 mg 03/29/24 00:21 04/05/24 12:30 Ondansetron Inj 4 Mg/2 Ml Vial IV PUSH 4 mg Q4H PRN Administration Nausea Ondansetron HCl 8 mg 04/05/24 12:41 04/06/24 08:52 Ondansetron Hcl Odt 4 Mg Tablet SUBLINGUAL 8 mg Q8H PRN Administration nausea and vomiting Pantoprazole Sodium 40 mg 03/29/24 09:00 04/11/24 08:41 Pantoprazole 40 Mg Tablet PO 40 mg QAM CARIDAD Administration Potassium Chloride 40 meq 03/29/24 09:00 04/04/24 08:59 Potassium Chloride 20 Meq Er Tablet PO 40 meq DAILY CARIDAD Administration Torsemide 100 mg 03/29/24 09:00 04/01/24 09:27 Torsemide 20 Mg Tablet PO 100 mg QAM CARIDAD Administration Radiology Results: ITS Impressions Abdomen/Pelvis CT 03/28/24 21:54 IMPRESSION: No acute intra-abdominal pathology. Innumerable nonacute findings, as detailed above. Head CT 03/29/24 14:57 IMPRESSION: 1. 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 2. Stable moderate nonspecific cerebral white matter disease, which likely represents chronic small vessel ischemic disease. Cervical Spine CT 03/29/24 15:03 IMPRESSION: 1. No fracture 2. Severe cervical spondylosis. Thoracic/Lumbar Spine CT 03/29/24 15:07 IMPRESSION: 1. No fracture. 2. Moderate thoracic and lumbar spondylosis. Chest X-Ray 04/06/24 08:02 Impression: Central congestive change and possible minimal bibasilar interstitial edema. Lexiscan Stress Test 04/07/24 12:19 IMPRESSION: 1. Normal myocardial perfusion at rest and during stress. 2. Left ventricular ejection fraction measuring 49%. Labs Labs: Laboratory Tests 04/11/24 05:43 04/11/24 05:43 Calcium 7.9 L Phosphorus 7.9 H Magnesium 1.7 Total Bilirubin 0.4 AST 22 ALT 18 Alkaline Phosphatase 125 Total Protein 6.0 L Albumin 3.3 L
--- NOTE | 2024-04-11 11:46 | PCPTNOTE ---
Attempted to see aptient for PT, however patient declined. Patient reported he needed to rest at this time.
[2024-04-11] MEDS: CHOLECALCIFEROL 5,000 UNITS TABLET 5000 UNITS PO (13:57)
--- NOTE | 2024-04-11 14:33 | PCPTNOTE ---
RN requested for patient not to be seen for Physical Therapy today. Will plan to continue treatment per plan of care.
--- NOTE | 2024-04-11 14:50 | P.CONNEU_ITS ---
Assessment and Plan Assessment and plan (1) Peripheral neuropathy: Code(s): G62.9 - Polyneuropathy, unspecified Status: Chronic (2) Anemia: Code(s): D64.9 - Anemia, unspecified Status: Acute (3) Orthostatic hypotension: Code(s): I95.1 - Orthostatic hypotension Status: Acute (4) Multiple falls: Code(s): R29.6 - Repeated falls Status: Acute (5) Nausea and vomiting: Qualifiers: Vomiting type: unspecified Qualified Code(s): R11.2 - Nausea with vomiting, unspecified Code(s): R11.2 - Nausea with vomiting, unspecified Status: Acute (6) End-stage renal disease on peritoneal dialysis: Code(s): N18.6 - End stage renal disease; Z99.2 - Dependence on renal dialysis Status: Acute (7) Peripheral vascular disease: Code(s): I73.9 - Peripheral vascular disease, unspecified Status: Acute (8) Orthostatic hypotension: Code(s): I95.1 - Orthostatic hypotension Status: Acute Plan 1. End-stage renal disease For which he is on peritoneal dialysis the somewhat noncompliant 2. Orthostatic symptomatology 3. Noncompliance with the peritoneal dialysis as well. Discussed with the patient thoroughly benefit from the regular peritoneal dialysis, will benefit from the milder drain treatment for the orthostatic hypotension but again he has to be extremely particular take it by time least 15 to 20 minute before he gets out of the bed in the morning at lunch and in the evening otherwise the blood pressure which shoot up while he is in bed he does not get a and equal a wide the orthostatic drop and he will not fall all the pros and cons discussed with the started him on the medication 3 times a day. Consult date: 04/11/24 HPI: Real Rolon is a 54 year old male admitted to the hospital through the emergency room for the complaints of generalized weakness with resultant falls ,patient was recently discharged from the hospital on March 21, 2024 he carries the diagnosis of chronic renal disease, congestive heart failure, he gets peritoneal dialysis every night at home, he has been taking multivitamins along with the citalopram 10mg daily, he is not allergic to any medication, he does have a history of polyneuropathy, hypertension, vitamin D3 deficiency, history of smoking cigarettes per day 30 years smoked 20 and smoking pack years of 30 8 at present former smoker, in the emergency room his vital signs were normal except the blood pressure was 91/44, his CBC was with hemoglobin 15.2 BMP was with BUN of 56 creatinine of 15.49 magnesium 1.6 BNP 5670 total protein 7.0 with albumin 3.7 routine viral screening was negative for influenza a B RSV and [id number] patient has been receiving all his medications accordingly which include torsemide 100mg daily, nortriptyline 50mg at night, labetalol 100mg twice , citalopram 10mg daily and BuSpar 1 tab 3 times a day neuro consult was obtained because of the orthostatic symptomatology signify [facility] Past Medical History Medical History Peritoneal dialysis catheter in place Polyneuropathy HTN (hypertension) Vitamin D3 deficiency Surgical History Surgical History History of appendectomy Family History Family History Father Hypertension Social History Social History Social History: Lives alone in an apartment. No pets. Smoking packs per day: 1.5 Smoking cigarettes per day: 30.0 Years smoked: 20 Smoking pack-years: 30.00 Smoking status: Former smoker Tobacco type: cigarettes Alcohol intake: current Alcohol use details: rarely Substance use: current Substance use type: marijuana Other substance usage details: OCCASIONAL Do You Feel Safe in your Home?: Yes Lack of Transportation: No Lack of Food: Often True Current Housing: I Have Housing Concerned About Future Housing: No Difficulty Paying Gas/Electric Bills: YES Difficulty Paying for Meds: No Currently Unemployed: No Education: Bachelor's Degree Difficulty w/ Childcare or Family Care: No Living arrangements: with family Occupation/Education: unemployed Gender identity (if verbalized by the patient): Male Sexual Orientation (if Verbalized by the Patient): Straight or Heterosexual Spiritual care concerns: No Agree to blood products: Yes Meds Home Medications and Allergies Home Medications ?Medication ?Instructions ?Recorded ?Confirmed ?Type gentamicin 0.1 % topical cream 1 applic topical TID PRN DIALYSIS 08/31/22 03/29/24 History CATH. calcium carbonate (Tums) 200 mg PO HS PRN Indigestion 07/20/23 03/29/24 History cinacalcet 30 mg tablet 90 mg PO DAILY 07/20/23 03/29/24 History multivitamin 1 tablet PO DAILY 07/29/23 03/29/24 History ferric citrate 210 mg iron tablet 210 mg PO TIDWM 09/28/23 03/29/24 History (Auryxia) potassium chloride 20 mEq 40 meq (2 x 20 mEq) PO DAILY #15 10/12/23 03/29/24 Rx tablet,extended release (K-Tab) tabs gabapentin 300 mg capsule See Rx Instructions .Route 10/26/23 03/29/24 Rx .COMPLEX #270 caps hydrocodone 5 mg-acetaminophen 325 1 tablet PO Q8H PRN Pain Rated 01/31/24 03/29/24 Rx mg tablet 4-10 #90 tabs labetalol 200 mg tablet 100 mg PO BID 02/03/24 03/29/24 History buspirone 10 mg tablet See Rx Instructions .Route 02/14/24 03/29/24 Rx .COMPLEX #90 tabs diphenoxylate-atropine 2.5 1 tablet PO QID PRN diarrhea #60 03/08/24 03/29/24 Rx mg-0.025 mg tablet tabs omeprazole 20 mg capsule,delayed 20 mg PO DAILY #90 caps 03/08/24 03/29/24 Rx release escitalopram oxalate 10 mg tablet 10 mg PO DAILY 03/09/24 03/29/24 History albuterol sulfate 90 mcg/actuation 2 inh inhalation QID PRN shortness 03/29/24 03/29/24 History aerosol inhaler of breath or wheezing calcium acetate(phosphat bind) 667 2,668 mg PO TIDWM 03/29/24 03/29/24 History mg capsule ferric citrate 210 mg iron tablet 210 mg PO TIDWM 03/29/24 03/29/24 History (Auryxia) melatonin 10 mg capsule 10 mg PO HS 03/29/24 03/29/24 History nortriptyline 50 mg capsule 50 mg PO HS 03/29/24 03/29/24 History ondansetron 4 mg disintegrating 8 mg translingual Q8H PRN nausea 03/29/24 03/29/24 History tablet and vomiting torsemide 100 mg tablet 100 mg PO DAILY 03/29/24 03/29/24 History Allergies Allergy/AdvReac Type Severity Reaction Status Date / Time No Known Allergies Allergy Verified 04/10/24 21:06 Vital Signs Vital Signs - 24 hr 04/10/24 16:00 04/10/24 20:00 04/10/24 20:00 Temperature Pulse Rate 76 87 Respiratory Rate Blood Pressure 126/85 Pulse Oximetry Oxygen Delivery 04/10/24 20:00 04/10/24 22:00 04/10/24 22:05 Temperature 36.8 C Pulse Rate 81 81 Respiratory Rate 20 20 Blood Pressure 126/85 95/71 L Pulse Oximetry 96 96 Oxygen Delivery Room Air 04/10/24 22:06 04/11/24 00:00 04/11/24 04:00 Temperature Pulse Rate 79 84 Respiratory Rate Blood Pressure 86/59 L Pulse Oximetry Oxygen Delivery 04/11/24 06:00 04/11/24 08:00 04/11/24 08:40 Temperature 36.5 C Pulse Rate 74 91 Respiratory Rate 20 Blood Pressure 117/70 Pulse Oximetry 96 Oxygen Delivery Room Air 04/11/24 10:00 04/11/24 10:03 04/11/24 10:06 Temperature Pulse Rate 93 97 129 H Respiratory Rate Blood Pressure 102/76 83/66 L 68/47 L Pulse Oximetry Oxygen Delivery 04/11/24 13:00 04/11/24 13:01 04/11/24 13:01 Temperature Pulse Rate 82 85 90 Respiratory Rate Blood Pressure 123/80 84/59 L 81/46 L Pulse Oximetry Oxygen Delivery 04/11/24 14:00 Temperature 36.3 C L Pulse Rate 91 Respiratory Rate 18 Blood Pressure 101/71 Pulse Oximetry 96 Oxygen Delivery Exam 2 Narrative: revealed him to be awake alert cooperative in no obvious acute distress, head normocephalic with no bruit, ear nose throat examination normal, neck supple with no cervical bruit no thyromegaly no lymphadenopathy, heart regular with no murmur, lungs clear [place] today castro with no rhonchi or crepitation, abdomen is soft nontender normal bowel sounds, no obvious signs of infection neurologically awake alert oriented x4 pupils round regular reacting to light equally [place] of vision full extraocular movements full face symmetrical tongue midline motor examination revealed him to have normal strength with no cogwheeling no spasticity reflexes sluggish plantars downgoing a significant orthostasis in supine and upright position. Results Labs 04/11/24 05:43 04/11/24 05:43 Labs: Short CBC 04/11/24 Range/Units 05:43 WBC 8.2 (4.5-10.0) K/mm3 Hgb 12.3 L (14.0-18.0) g/dL Hct 39.3 L (42.0-52.0) % Plt Count 446 H (150-375) k/mm3 BMP 04/11/24 05:43 Sodium 136 L Potassium 3.7 Chloride 93 L Carbon Dioxide 26 BUN 51 H Creatinine 13.71 H Glucose 105 Calcium 7.9 L Liver Function 04/11/24 Range/Units 05:43 Total Bilirubin 0.4 (0.2-1.3) mg/dL AST 22 (17-59) U/L ALT 18 (6-50) U/L Alkaline Phosphatase 125 (38-126) U/L Albumin 3.3 L (3.5-5.1) g/dL
[2024-04-11] MEDS: NORTRIPTYLINE HCL 25 MG CAPSULE 50 MG PO (20:56)
[2024-04-11] MEDS: HYDROcodone/acetaminophen (*CRX) 5-325 MG TABLET 1 TAB PO (21:39)
[2024-04-12] VITALS (18 sets, daily range): BP systolic 78–135; BP diastolic 52–88; PULSE 72–94; RESP 16–18; TEMP 36.2–36.7; O2SAT 95–99
[2024-04-12 06:26] LABS: Basophils Absolute Auto 0.1 K/mm3 (0.0-0.1); Basophils Percent Auto 0.8 % (0.2-1.2); Eosinophils Absolute Auto 1.3 K/mm3 (0-0.3); Eosinophils Percent Auto 14.8 % (0-4.4); Hematocrit 38.5 % (42.0-52.0); Hemoglobin 12.2 g/dL (14.0-18.0); Immature Granulocyte Absolute 0.04 K/mm3 (0.00-0.031); Immature Granulocyte Percent A 0.5 % (0-0.5); Lymphocytes Absolute Auto 2.12 K/mm3 (0.9-3.2); Lymphocytes Percent Auto 24.7 % (18.3-44.2); Mean Corpuscular HGB Conc 31.7 g/dl (32-36); Mean Corpuscular Hemoglobin 31.5 pg (26-34); Mean Corpuscular Volume 99.5 fl (80-100); Mean Platelet Volume 8.8 fl (7.4-10.4); Monocytes Absolute Auto 1.2 K/mm3 (0.1-0.6); Neutrophils Absolute Auto 3.9 K/mm3 (1.3-6.7); Neutrophils Percent Auto 45.2 % (45.5-73.1); Platelet Count Result 424 k/mm3 (150-375); Red Blood Count 3.87 M/mm3 (4.6-6.20); Red Cell Distribution Width 12.9 % (11.5-14.5); White Blood Count 8.6 K/mm3 (4.5-10.0)
[2024-04-12 06:36] LABS: Alanine Aminotransferase 18 U/L (6-50); Albumin Level 3.1 g/dL (3.5-5.1); Alkaline Phosphatase 118 U/L (38-126); Anion Gap 12 mmol/L (4-12); Aspartate Amino Transferase 22 U/L (17-59); Bilirubin,Total 0.5 mg/dL (0.2-1.3); Blood Urea Nitrogen 52 mg/dL (9-20); Calcium 7.8 mg/dL (8.4-10.2); Carbon Dioxide 29 mmol/L (22-30); Chloride 94 mmol/L (98-107); Estimated CRCL calculation 7 ml/min; Estimated Glomerular Filt Rate 4; Glucose 90 mg/dL (65-110); Magnesium 1.6 mg/dL (1.6-2.3); Phosphorus 6.3 mg/dL (2.5-4.5); Potassium 3.5 mmol/L (3.4-5.0); Sodium 135 mmol/L (137-145)
--- NOTE | 2024-04-12 07:15 | P.PNIM_ITS ---
Progress Note: A&P Assessment and Plan (1) End-stage renal disease on peritoneal dialysis: Code(s): N18.6 - End stage renal disease; Z99.2 - Dependence on renal dialysis Status: Acute Assessment and Plan: * continue nightly peritoneal dialysis * nephrology following 04/11 * No change (2) Multiple falls: Code(s): R29.6 - Repeated falls Status: Acute Assessment and Plan: * continue PT and OT * plan is to go home with [facility] when medically stable 04/11 * No change to current treatment plan (3) Orthostatic hypotension: Code(s): I95.1 - Orthostatic hypotension Status: Acute Assessment and Plan: * continue midodrine and metoprolol * continue holding losartan and torsemide * neurology consulted for further assistance * losartan placed on hold 04/11 * Give midodrine 30 minutes before checking orthostatic blood pressures per Neurology recommendation * Vitamin D level was low on 08/12/23, will recheck * Will check Vitamin B12 today * cortisol stimulation test was normal. * Patient needs to wear abdominal binder and gladis hose when getting out of bed. 04/12 * Patient is still orthostatic after receiving midodrine today he minutes prior to checking orthostatic blood pressures. * We will increase his midodrine to 15 mg t.i.d. * Continue abdominal binder and gladis hose * Neurology following * vitamin D level pending * Patient is on Nortriptyline which can cause orthostatic hypotension. He started this medication about a year ago and has been tolerating it without issue. We could consider decreasing or switching him to a different depression medication to see if this helps improve his orthostatic hypotension. (4) Cardiomyopathy: Code(s): I42.9 - Cardiomyopathy, unspecified Status: Acute Assessment and Plan: * echocardiogram showing severely reduced LV systolic function with an estimated EF of 15-20%, grade 1 diastolic dysfunction * continue metoprolol * losartan and torsemide on hold due to orthostatic hypotension 04/11 * Continue to hold losartan and torsemide 04/12 * No change to current treatment plan (5) Fluid overload: Qualifiers: Hypervolemia type: unspecified Qualified Code(s): E87.70 - Fluid overload, unspecified Code(s): E87.70 - Fluid overload, unspecified Status: Acute Assessment and Plan: * improved with peritoneal dialysis 04/11 * no change (6) Anemia of chronic disease: Code(s): D63.8 - Anemia in other chronic diseases classified elsewhere Status: Acute Assessment and Plan: * likely secondary to to be end-stage renal disease (7) Generalized weakness: Code(s): R53.1 - Weakness Status: Acute Assessment and Plan: * continue PT and OT * plan for home health when stable for discharge 04/11 * no change (8) Peripheral neuropathy: Code(s): G62.9 - Polyneuropathy, unspecified Status: Chronic Assessment and Plan: * 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 * Heavy metals testing pending * B12, folate, and TSH are WNL 04/11 * No change Time Spent With Patient Time with patient: 15 - 25 minutes Subjective Date/time seen: 04/12/24 07:15 Interval history: Interval history: This is a 49 year old male with a significant past medical history end-stage renal on peritoneal dialysis hypertension, polyneuropathy who presented to the hospital initially on 03/29/2024 with complaints of nausea /vomiting, fluid overload, and weakness. Patient had an echocardiogram done on which shown severely reduced left ventricular systolic function with an estimated EF of 15-20%, grade 1 diastolic dysfunction, moderate mitral valve calcification and mild regurgitation He was found to have orthostatic hypotension that was not coming from a cardiac origin. He was placed on midodrine and shown some improvement. Subjective: patient remains orthostatic despite giving midodrine 30 minutes prior to checking his labs. Labs and imaging reviewed. Review of Systems Review of Systems: All systems reviewed & are unremarkable except as noted in HPI and below Exam Narrative: General: In no acute distress, well nourished Cardiac: Normal S1 and S2. No murmur, gallops or friction rubs, peripheral pulses intact. Respiratory: Lungs clear to auscultation, no adventitious lung sounds , currently on room air Gastrointestinal: soft, non-distended, non-tender, normoactive bowel sounds. : voiding without difficulty. Neuro: Alert and oriented x4 Objective Data Vital Signs Vital Signs: Vital Signs - 24 hr 04/11/24 08:00 04/11/24 08:00 04/11/24 08:40 Temperature Pulse Rate 82 91 Respiratory Rate Blood Pressure Pulse Oximetry Oxygen Delivery Room Air 04/11/24 10:00 04/11/24 10:03 04/11/24 10:06 Temperature Pulse Rate 93 97 129 H Respiratory Rate Blood Pressure 102/76 83/66 L 68/47 L Pulse Oximetry Oxygen Delivery 04/11/24 12:00 04/11/24 13:00 04/11/24 13:01 Temperature Pulse Rate 76 82 85 Respiratory Rate Blood Pressure 123/80 84/59 L Pulse Oximetry Oxygen Delivery 04/11/24 13:01 04/11/24 14:00 04/11/24 16:00 Temperature 97.3 F L Pulse Rate 90 91 72 Respiratory Rate 18 Blood Pressure 81/46 L 101/71 Pulse Oximetry 96 Oxygen Delivery 04/11/24 18:18 04/11/24 18:19 04/11/24 18:19 Temperature Pulse Rate 83 80 92 Respiratory Rate Blood Pressure 125/81 89/70 L 96/62 L Pulse Oximetry Oxygen Delivery 04/11/24 20:00 04/11/24 20:00 04/11/24 20:47 Temperature 98.9 F Pulse Rate 77 81 Respiratory Rate 16 Blood Pressure 126/90 Pulse Oximetry 99 Oxygen Delivery Room Air 04/11/24 20:51 04/11/24 20:52 04/11/24 20:54 Temperature Pulse Rate Respiratory Rate Blood Pressure 126/90 123/94 H 99/62 L Pulse Oximetry Oxygen Delivery 04/11/24 20:56 04/12/24 00:00 04/12/24 04:00 Temperature Pulse Rate 88 78 80 Respiratory Rate Blood Pressure Pulse Oximetry Oxygen Delivery 04/12/24 06:00 Temperature 97.2 F L Pulse Rate 85 Respiratory Rate 16 Blood Pressure 130/80 Pulse Oximetry 95 Oxygen Delivery Intake/Output Intake/Output: Intake & Output 04/09/24 04/10/24 04/11/24 04/12/24 23:59 23:59 23:59 23:59 Intake Total 1070 1360 1440 350 Output Total 2196 703 0 Balance -7993 518 9674 350 Meds/Results Medications: Active Medications Generic Name Dose Route Start Last Admin Trade Name Freq PRN Reason Stop Dose Admin Acetaminophen 650 mg 03/29/24 07:25 04/10/24 08:48 Acetaminophen 325 Mg Tablet PO 650 mg Q4H PRN Administration Mild Pain (1-3) or Fever Hydrocodone Bitart/Acetaminophen 1 tab 03/30/24 12:41 04/11/24 21:39 Hydrocodone/Acetaminophen (*Crx) 5-325 Mg Tablet PO 1 tab Q8H PRN Administration Pain Rated 6 or Greater Buspirone HCl 10 mg 03/29/24 09:00 04/11/24 17:36 Buspirone Hcl 10 Mg Tablet PO 10 mg TID CARIDAD Administration Calcium Acetate 2,668 mg 03/29/24 08:00 04/11/24 17:36 Calcium Acetate 667 Mg Tablet PO 2,668 mg TIDWM CARIDAD Administration Calcium Carbonate 200 mg 03/29/24 07:14 Calcium Carbonate (Tums) 500 Mg (200 Mg Elemental) PO HS PRN Indigestion Cinacalcet 90 mg 03/29/24 09:00 04/11/24 08:41 Cinacalcet 30 Mg Tablet PO 90 mg DAILY CARIDAD Administration Dextrose 12.5 gm 03/29/24 07:25 Dextrose 50% 25 Gm/50 Ml Syringe IV PUSH PRN PRN Hypoglycemia Protocol Empagliflozin 10 mg 04/07/24 09:00 04/11/24 08:40 Empagliflozin 10 Mg Tablet PO 10 mg DAILY CARIDAD Administration Enoxaparin Sodium 30 mg 03/30/24 09:00 04/11/24 08:41 Enoxaparin 30 Mg/0.3 Ml Syringe SUB-Q 30 mg DAILY CARIDAD Administration Escitalopram Oxalate 10 mg 03/29/24 09:00 04/11/24 08:41 Escitalopram Oxalate 10 Mg Tablet PO 10 mg DAILY CARIDAD Administration Gabapentin 300 mg 03/29/24 09:00 04/11/24 17:36 Gabapentin 300 Mg Capsule PO 300 mg TID CARIDAD Administration Gentamicin Sulfate 1 applic 04/10/24 18:00 04/10/24 19:20 Gentamicin Sulfate 0.1% Oint 15 Gm Tube TOPICAL 1 applic DAILY@1800 CARIDAD Administration Glucagon 1 mg 03/29/24 07:25 Glucagon For Inj 1 Mg Vial IM PRN PRN Hypoglycemia Protocol Glucose 15 gm 03/29/24 07:25 Glucose Oral Gel 15 Gm Of Glucse In 37.5 Gm Tube PO PRN PRN Hypoglycemia Protocol Dextrose 1,000 mls @ 100 mls/hr 03/29/24 07:25 Dextrose 5% 1,000 Ml IVPB PRN PRN Hypoglycemia Protocol Losartan Potassium 12.5 mg 04/07/24 09:00 04/09/24 08:43 Losartan Potassium 12.5 Mg Tablet PO 12.5 mg DAILY CARIDAD Administration Metoprolol Tartrate 12.5 mg 04/04/24 21:00 04/11/24 20:56 Metoprolol Tartrate 12.5 Mg Tablet PO 12.5 mg Q12HR CARIDAD Administration Midodrine 10 mg 04/10/24 13:00 04/11/24 17:36 Midodrine Hcl 10 Mg Tablet PO 10 mg TID CARIDAD Administration Nortriptyline HCl 50 mg 03/29/24 21:00 04/11/24 20:56 Nortriptyline Hcl 25 Mg Capsule PO 50 mg HS CARIDAD Administration Ondansetron HCl 4 mg 03/29/24 00:21 04/05/24 12:30 Ondansetron Inj 4 Mg/2 Ml Vial IV PUSH 4 mg Q4H PRN Administration Nausea Ondansetron HCl 8 mg 04/05/24 12:41 04/06/24 08:52 Ondansetron Hcl Odt 4 Mg Tablet SUBLINGUAL 8 mg Q8H PRN Administration nausea and vomiting Pantoprazole Sodium 40 mg 03/29/24 09:00 04/11/24 08:41 Pantoprazole 40 Mg Tablet PO 40 mg QAM CARIDAD Administration Potassium Chloride 40 meq 03/29/24 09:00 04/04/24 08:59 Potassium Chloride 20 Meq Er Tablet PO 40 meq DAILY CARIDAD Administration Torsemide 100 mg 03/29/24 09:00 04/01/24 09:27 Torsemide 20 Mg Tablet PO 100 mg QAM CARIDAD Administration Vitamin D 5,000 units 04/11/24 13:10 04/11/24 13:57 Cholecalciferol 5,000 Units Tablet PO 5,000 units DAILY CARIDAD Administration Radiology Results: ITS Impressions Abdomen/Pelvis CT 03/28/24 21:54 IMPRESSION: No acute intra-abdominal pathology. Innumerable nonacute findings, as detailed above. Head CT 03/29/24 14:57 IMPRESSION: 1. 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 2. Stable moderate nonspecific cerebral white matter disease, which likely represents chronic small vessel ischemic disease. Cervical Spine CT 03/29/24 15:03 IMPRESSION: 1. No fracture 2. Severe cervical spondylosis. Thoracic/Lumbar Spine CT 03/29/24 15:07 IMPRESSION: 1. No fracture. 2. Moderate thoracic and lumbar spondylosis. Chest X-Ray 04/06/24 08:02 Impression: Central congestive change and possible minimal bibasilar interstitial edema. Lexiscan Stress Test 04/07/24 12:19 IMPRESSION: 1. Normal myocardial perfusion at rest and during stress. 2. Left ventricular ejection fraction measuring 49%. Labs Labs: Laboratory Results - last 24 hr 04/12/24 06:06 WBC 8.6 RBC 3.87 L Hgb 12.2 L Hct 38.5 L MCV 99.5 MCH 31.5 MCHC 31.7 L RDW 12.9 Plt Count 424 H MPV 8.8 Immature Gran % (Auto) 0.5 Neut % (Auto) 45.2 L Lymph % (Auto) 24.7 [place] % (Auto) 14.0 H Eos % (Auto) 14.8 H Baso % (Auto) 0.8 Lymph # (Auto) 2.12 [place] # (Auto) 1.2 H Eos # (Auto) 1.3 H Baso # (Auto) 0.1 Abs Immat Gran (auto) 0.04 H Absolute Neuts (auto) 3.9 Absolute Nucleated RBC 0.000 Nucleated RBC % 0.0 Sodium 135 L Potassium 3.5 Chloride 94 L Carbon Dioxide 29 Anion Gap 12 BUN 52 H Creatinine 12.87 H Estim Creat Clear Calc 7 Estimated GFR 4 L Glucose 90 Calcium 7.8 L Phosphorus 6.3 H Magnesium 1.6 Total Bilirubin 0.5 AST 22 ALT 18 Alkaline Phosphatase 118 Total Protein 6.0 L Albumin 3.1 L Quality VTE Prophylaxis VTE prophylaxis: pharmacologic ordered
[2024-04-12] MEDS: CALCIUM ACETATE 667 MG TABLET 2668 MG PO ×3 (08:45→17:21)
[2024-04-12] MEDS: ENOXAPARIN 30 MG/0.3 ML SYRINGE SUB-Q (08:46)
[2024-04-12] MEDS: METOPROLOL TARTRATE 12.5 MG TABLET PO ×2 (08:46→20:53)
[2024-04-12] MEDS: MIDODRINE HCL 10 MG TABLET PO ×3 (08:46→17:22)
[2024-04-12] MEDS: CINACALCET 30 MG TABLET 90 MG PO (08:46)
[2024-04-12] MEDS: EMPAGLIFLOZIN 10 MG TABLET PO (08:46)
[2024-04-12] MEDS: busPIRone HCL 10 MG TABLET PO ×3 (08:46→17:22)
[2024-04-12] MEDS: ESCITALOPRAM OXALATE 10 MG TABLET PO (08:46)
[2024-04-12] MEDS: CHOLECALCIFEROL 5,000 UNITS TABLET 5000 UNITS PO (08:46)
[2024-04-12] MEDS: PANTOPRAZOLE 40 MG TABLET PO (08:46)
[2024-04-12] MEDS: GABAPENTIN 300 MG CAPSULE PO ×3 (08:46→17:22)
--- NOTE | 2024-04-12 11:26 | PCPTNOTE ---
Attempted to see patient for PT, however RN advised not to see patient due to patient having low orthostatic blood pressures this morning.
--- NOTE | 2024-04-12 12:06 | P.PNNP_ITS ---
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 * stable moderate nonspecific cerebral white matter disease, which likely represents chronic small vessel ischemic disease * just on metoprolol for now * continue PT/OT as tolerated (3) Orthostatic hypotension: Code(s): I95.1 - Orthostatic hypotension Status: Acute Assessment and Plan: * still present * as noted by vital signs on admission and recently * on midodrine therapy * evaluation to date noted: * TSH okay * cortisol reasonable But with the severity of the orthostatic hypotension will check a Cortrosyn stim test * Echo results noted -- see #4 * neuropathy contributing (?) -- pulse does not rise very much when his blood pressure dropped suggesting this is playing a role * blood pressure medications, antidepressants and empagliflozin are on the list of drugs that exacerbate orthostatic hypotension * holding the losartan and torsemide for now * continuing the metoprolol and midodrine * Neurology consulted (4) Cardiomyopathy: Code(s): I42.9 - Cardiomyopathy, unspecified Status: Acute Assessment and Plan: * Echo results (on 04/05) noted: * left ventricular systolic function is severely globally reduced, estimated at 15-20% * left ventricular diastolic function is grade I diastolic dysfunction * mitral valve has moderately calcified annulus * mild mitral valve regurgitation * this is a significant change from last Echo in September 2023. * HOWEVER, stress test was negative and reports an EF of 49% * on metoprolol (5) Fluid overload: Qualifiers: Hypervolemia type: unspecified Qualified Code(s): E87.70 - Fluid overload, unspecified Code(s): E87.70 - Fluid overload, unspecified Status: Acute Assessment and Plan: * stable if not improved with dialysis therapy * diuretics on hold * follow volume status (6) Anemia: Code(s): D64.9 - Anemia, unspecified Status: Acute Assessment and Plan: * hemoglobin is still supratherapeutic for ESRD * Epogen on hold * follow trend of H/H (7) Generalized weakness: Code(s): R53.1 - Weakness Status: Acute Assessment and Plan: * suspect related to recent hospitalization/deconditioning in association with prior influenza infection and orthostatic hypotension * PT/OT as tolerated (8) Peripheral neuropathy: Code(s): G62.9 - Polyneuropathy, unspecified Status: Chronic Assessment and Plan: * known diagnosis * etiology not clear * b12, TSH, and folate okay * heavy metal testing pending Will continue to follow. L Subjective Date/time seen: 04/12/24 12:06 Interval history: Follow-up for end stage renal disease on peritoneal dialysis. Tolerated peritoneal dialysis treatment overnight without any issues or problems (CCPD supervised and seen at 11:55AM); still with symptoms of lightheadedness/dizziness with position change although he thinks it might not be as bad as it was before; no other acute complaints voiced. Exam 2 Narrative: General: WD/WN male in NAD Heart: normal S1 and S2; no rub Lungs: clear anteriorly Abdomen: soft, nontender, nondistended, positive bowel sounds Extremities: no cyanosis or clubbing; trace edema Skin: warm and intact Objective Data Vital Signs Vital Signs: Vital Signs Temp Pulse Resp BP Pulse Ox O2 Del Method 04/12/24 12:00 75 134/86 04/12/24 08:46 87 04/12/24 08:44 97.3 F L 87 18 115/73 97 04/12/24 08:00 Room Air 04/12/24 08:00 85 04/12/24 06:00 97.2 F L 85 16 130/80 95 04/12/24 04:00 80 04/12/24 00:00 78 04/11/24 20:56 88 04/11/24 20:54 99/62 L 04/11/24 20:52 123/94 H 04/11/24 20:51 126/90 04/11/24 20:47 98.9 F 81 16 126/90 99 04/11/24 20:00 77 04/11/24 20:00 Room Air Intake/Output Intake/Output: Intake & Output 04/09/24 04/10/24 04/11/24 04/12/24 23:59 23:59 23:59 23:59 Intake Total 1070 1360 1440 2334 Output Total 2196 703 0 Balance -8295 666 6906 2334 Meds/Results Medications: Active Medications Generic Name Dose Route Start Last Admin Trade Name Freq PRN Reason Stop Dose Admin Acetaminophen 650 mg 03/29/24 07:25 04/12/24 13:05 Acetaminophen 325 Mg Tablet PO 650 mg Q4H PRN Administration Mild Pain (1-3) or Fever Hydrocodone Bitart/Acetaminophen 1 tab 03/30/24 12:41 04/11/24 21:39 Hydrocodone/Acetaminophen (*Crx) 5-325 Mg Tablet PO 1 tab Q8H PRN Administration Pain Rated 6 or Greater Buspirone HCl 10 mg 03/29/24 09:00 04/12/24 17:22 Buspirone Hcl 10 Mg Tablet PO 10 mg TID CARIDAD Administration Calcium Acetate 2,668 mg 03/29/24 08:00 04/12/24 17:21 Calcium Acetate 667 Mg Tablet PO 2,668 mg TIDWM CARIDAD Administration Calcium Carbonate 200 mg 03/29/24 07:14 Calcium Carbonate (Tums) 500 Mg (200 Mg Elemental) PO HS PRN Indigestion Cinacalcet 90 mg 03/29/24 09:00 04/12/24 08:46 Cinacalcet 30 Mg Tablet PO 90 mg DAILY CARIDAD Administration Dextrose 12.5 gm 03/29/24 07:25 Dextrose 50% 25 Gm/50 Ml Syringe IV PUSH PRN PRN Hypoglycemia Protocol Empagliflozin 10 mg 04/07/24 09:00 04/12/24 08:46 Empagliflozin 10 Mg Tablet PO 10 mg DAILY CARIDAD Administration Enoxaparin Sodium 30 mg 03/30/24 09:00 04/12/24 08:46 Enoxaparin 30 Mg/0.3 Ml Syringe SUB-Q 30 mg DAILY CARIDAD Administration Escitalopram Oxalate 10 mg 03/29/24 09:00 04/12/24 08:46 Escitalopram Oxalate 10 Mg Tablet PO 10 mg DAILY CARIDAD Administration Gabapentin 300 mg 03/29/24 09:00 04/12/24 17:22 Gabapentin 300 Mg Capsule PO 300 mg TID CARIDAD Administration Gentamicin Sulfate 1 applic 04/10/24 18:00 04/10/24 19:20 Gentamicin Sulfate 0.1% Oint 15 Gm Tube TOPICAL 1 applic DAILY@1800 CARIDAD Administration Glucagon 1 mg 03/29/24 07:25 Glucagon For Inj 1 Mg Vial IM PRN PRN Hypoglycemia Protocol Glucose 15 gm 03/29/24 07:25 Glucose Oral Gel 15 Gm Of Glucse In 37.5 Gm Tube PO PRN PRN Hypoglycemia Protocol Dextrose 1,000 mls @ 100 mls/hr 03/29/24 07:25 Dextrose 5% 1,000 Ml IVPB PRN PRN Hypoglycemia Protocol Losartan Potassium 12.5 mg 04/07/24 09:00 04/09/24 08:43 Losartan Potassium 12.5 Mg Tablet PO 12.5 mg DAILY CARIDAD Administration Metoprolol Tartrate 12.5 mg 04/04/24 21:00 04/12/24 08:46 Metoprolol Tartrate 12.5 Mg Tablet PO 12.5 mg Q12HR CARIDAD Administration Midodrine 10 mg 04/12/24 13:00 04/12/24 17:22 Midodrine Hcl 10 Mg Tablet PO 10 mg TID CARIDAD Administration Midodrine 5 mg 04/12/24 13:00 04/12/24 17:22 Midodrine Hcl 2.5 Mg Tablet PO 5 mg TID CARIDAD Administration Nortriptyline HCl 50 mg 03/29/24 21:00 04/11/24 20:56 Nortriptyline Hcl 25 Mg Capsule PO 50 mg HS CARIDAD Administration Ondansetron HCl 4 mg 03/29/24 00:21 04/05/24 12:30 Ondansetron Inj 4 Mg/2 Ml Vial IV PUSH 4 mg Q4H PRN Administration Nausea Ondansetron HCl 8 mg 04/05/24 12:41 04/06/24 08:52 Ondansetron Hcl Odt 4 Mg Tablet SUBLINGUAL 8 mg Q8H PRN Administration nausea and vomiting Pantoprazole Sodium 40 mg 03/29/24 09:00 04/12/24 08:46 Pantoprazole 40 Mg Tablet PO 40 mg QAM CARIDAD Administration Potassium Chloride 40 meq 03/29/24 09:00 04/04/24 08:59 Potassium Chloride 20 Meq Er Tablet PO 40 meq DAILY CARIDAD Administration Torsemide 100 mg 03/29/24 09:00 04/01/24 09:27 Torsemide 20 Mg Tablet PO 100 mg QAM CARIDAD Administration Vitamin D 5,000 units 04/11/24 13:10 04/12/24 08:46 Cholecalciferol 5,000 Units Tablet PO 5,000 units DAILY CARIDAD Administration Radiology Results: ITS Impressions Abdomen/Pelvis CT 03/28/24 21:54 IMPRESSION: No acute intra-abdominal pathology. Innumerable nonacute findings, as detailed above. Head CT 03/29/24 14:57 IMPRESSION: 1. 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 2. Stable moderate nonspecific cerebral white matter disease, which likely represents chronic small vessel ischemic disease. Cervical Spine CT 03/29/24 15:03 IMPRESSION: 1. No fracture 2. Severe cervical spondylosis. Thoracic/Lumbar Spine CT 03/29/24 15:07 IMPRESSION: 1. No fracture. 2. Moderate thoracic and lumbar spondylosis. Chest X-Ray 04/06/24 08:02 Impression: Central congestive change and possible minimal bibasilar interstitial edema. Lexiscan Stress Test 04/07/24 12:19 IMPRESSION: 1. Normal myocardial perfusion at rest and during stress. 2. Left ventricular ejection fraction measuring 49%. Labs Labs: Laboratory Tests 04/12/24 06:06 04/12/24 06:06 Calcium 7.8 L Phosphorus 6.3 H Magnesium 1.6 Total Bilirubin 0.5 AST 22 ALT 18 Alkaline Phosphatase 118 Total Protein 6.0 L Albumin 3.1 L
[2024-04-12] MEDS: MIDODRINE HCL 2.5 MG TABLET 5 MG PO ×2 (12:14→17:22)
[2024-04-12] MEDS: ACETAMINOPHEN 325 MG TABLET 650 MG PO (13:05)
--- NOTE | 2024-04-12 13:09 | PCNFU ---
Nutrition Follow-Up Complete: Severe protein calorie malnutrition related to poor appetite, as evidenced by weight loss -20%/2 months; intakes <50% needs >1 week; moderate muscle wasting to temporalis, clavicles Goal:Improve PO intake to 50% meals Pt meeting goal. New goal for 75% intake Pt current nutrition is Renal dialysis. Nutrition recommendation: Continue with current plan of care Last recorded weight is 102.6 kg. Bowel Motility: +BM 04/11 Labs Reviewed:Hgb:12.2, HCT:38.5, Alb:3.1, NA:135, GFR:4 Meds Noted: jardiance, Vit D, phoslo, zofran Skin: WNL Additional Notes: Pt continues on a renal diet, intake 75-100% at this time, pt reports a good appetite, no concerns. Continue with current plan of care Monitoring intakes, weights, labs, plan of care Follow up in 7 days
[2024-04-12 18:21] LABS: Vitamin D 25 Hydroxy 18.9 ng/mL
[2024-04-12] MEDS: GENTAMICIN SULFATE 0.1% OINT 15 GM TUBE 1 APPLIC TOPICAL (20:50)
[2024-04-12] MEDS: HYDROcodone/acetaminophen (*CRX) 5-325 MG TABLET 1 TAB PO (20:53)
[2024-04-12] MEDS: NORTRIPTYLINE HCL 25 MG CAPSULE 50 MG PO (20:53)
[2024-04-13] VITALS (20 sets, daily range): BP systolic 89–133; BP diastolic 59–92; PULSE 69–98; RESP 16–17; TEMP 36.3–36.8; O2SAT 95–98
[2024-04-13 06:21] LABS: Basophils Absolute Auto 0.1 K/mm3 (0.0-0.1); Basophils Percent Auto 0.9 % (0.2-1.2); Eosinophils Absolute Auto 1.3 K/mm3 (0-0.3); Eosinophils Percent Auto 14.1 % (0-4.4); Hematocrit 36.7 % (42.0-52.0); Immature Granulocyte Absolute 0.03 K/mm3 (0.00-0.031); Immature Granulocyte Percent A 0.3 % (0-0.5); Lymphocytes Absolute Auto 2.18 K/mm3 (0.9-3.2); Lymphocytes Percent Auto 24.1 % (18.3-44.2); Mean Corpuscular HGB Conc 32.7 g/dl (32-36); Mean Corpuscular Hemoglobin 31.8 pg (26-34); Mean Corpuscular Volume 97.3 fl (80-100); Mean Platelet Volume 8.6 fl (7.4-10.4); Monocytes Absolute Auto 1.1 K/mm3 (0.1-0.6); Monocytes Percent Auto 11.6 % (2.6-8.5); Neutrophils Absolute Auto 4.4 K/mm3 (1.3-6.7); Platelet Count Result 427 k/mm3 (150-375); Red Blood Count 3.77 M/mm3 (4.6-6.20); Red Cell Distribution Width 12.6 % (11.5-14.5); White Blood Count 9.1 K/mm3 (4.5-10.0)
[2024-04-13 06:39] LABS: Potassium 3.2 mmol/L (3.4-5.0)
[2024-04-13 06:44] LABS: Alanine Aminotransferase 19 U/L (6-50); Albumin Level 3.1 g/dL (3.5-5.1); Alkaline Phosphatase 109 U/L (38-126); Anion Gap 14 mmol/L (4-12); Aspartate Amino Transferase 21 U/L (17-59); Bilirubin,Total 0.4 mg/dL (0.2-1.3); Blood Urea Nitrogen 58 mg/dL (9-20); Carbon Dioxide 24 mmol/L (22-30); Chloride 94 mmol/L (98-107); Estimated CRCL calculation 7 ml/min; Estimated Glomerular Filt Rate 4; Glucose 102 mg/dL (65-110); Magnesium 1.7 mg/dL (1.6-2.3); Phosphorus 6.4 mg/dL (2.5-4.5); Sodium 132 mmol/L (137-145)
[2024-04-13] MEDS: MIDODRINE HCL 10 MG TABLET PO ×3 (08:23→17:14)
[2024-04-13] MEDS: CINACALCET 30 MG TABLET 90 MG PO (08:23)
[2024-04-13] MEDS: busPIRone HCL 10 MG TABLET PO ×3 (08:23→17:14)
[2024-04-13] MEDS: MIDODRINE HCL 2.5 MG TABLET 5 MG PO ×3 (08:23→17:14)
[2024-04-13] MEDS: GABAPENTIN 300 MG CAPSULE PO ×3 (08:23→17:14)
[2024-04-13] MEDS: CHOLECALCIFEROL 5,000 UNITS TABLET 5000 UNITS PO (08:23)
[2024-04-13] MEDS: CALCIUM ACETATE 667 MG TABLET 2668 MG PO ×3 (08:23→17:14)
[2024-04-13] MEDS: METOPROLOL TARTRATE 12.5 MG TABLET PO ×2 (08:23→19:51)
[2024-04-13] MEDS: ENOXAPARIN 30 MG/0.3 ML SYRINGE SUB-Q (08:24)
[2024-04-13] MEDS: ESCITALOPRAM OXALATE 10 MG TABLET PO (08:24)
[2024-04-13] MEDS: EMPAGLIFLOZIN 10 MG TABLET PO (08:24)
[2024-04-13] MEDS: PANTOPRAZOLE 40 MG TABLET PO (08:24)
--- NOTE | 2024-04-13 10:49 | P.PNIM_ITS ---
Progress Note: A&P Assessment and Plan (1) End-stage renal disease on peritoneal dialysis: Code(s): N18.6 - End stage renal disease; Z99.2 - Dependence on renal dialysis Status: Acute Assessment and Plan: * continue nightly peritoneal dialysis * nephrology following 04/11 * No change (2) Multiple falls: Code(s): R29.6 - Repeated falls Status: Acute Assessment and Plan: * continue PT and OT * plan is to go home with [facility] when medically stable 04/11 * No change to current treatment plan (3) Orthostatic hypotension: Code(s): I95.1 - Orthostatic hypotension Status: Acute Assessment and Plan: * continue midodrine and metoprolol * continue holding losartan and torsemide * neurology consulted for further assistance * losartan placed on hold 04/11 * Give midodrine 30 minutes before checking orthostatic blood pressures per Neurology recommendation * Vitamin D level was low on 08/12/23, will recheck * Will check Vitamin B12 today * cortisol stimulation test was normal. * Patient needs to wear abdominal binder and gladis hose when getting out of bed. 04/12 * Patient is still orthostatic after receiving midodrine today he minutes prior to checking orthostatic blood pressures. * We will increase his midodrine to 15 mg t.i.d. * Continue abdominal binder and gladis hose * Neurology following * vitamin D level pending * Patient is on Nortriptyline which can cause orthostatic hypotension. He started this medication about a year ago and has been tolerating it without issue. We could consider decreasing or switching him to a different depression medication to see if this helps improve his orthostatic hypotension. 04/13 * Patient is still orthostatic today but is not as symptomatic * Vitamin D level 18.9, will start Vitamin D supplement * Vitamin B12 743 * Will start weaning Nortriptyline * continue gladis hose (4) Cardiomyopathy: Code(s): I42.9 - Cardiomyopathy, unspecified Status: Acute Assessment and Plan: * echocardiogram showing severely reduced LV systolic function with an estimated EF of 15-20%, grade 1 diastolic dysfunction * continue metoprolol * losartan and torsemide on hold due to orthostatic hypotension 04/11 * Continue to hold losartan and torsemide 04/12 * No change to current treatment plan (5) Fluid overload: Qualifiers: Hypervolemia type: unspecified Qualified Code(s): E87.70 - Fluid overload, unspecified Code(s): E87.70 - Fluid overload, unspecified Status: Acute Assessment and Plan: * improved with peritoneal dialysis 04/11 * no change (6) Anemia of chronic disease: Code(s): D63.8 - Anemia in other chronic diseases classified elsewhere Status: Acute Assessment and Plan: * likely secondary to to be end-stage renal disease (7) Generalized weakness: Code(s): R53.1 - Weakness Status: Acute Assessment and Plan: * continue PT and OT * plan for home health when stable for discharge 04/11 * no change (8) Peripheral neuropathy: Code(s): G62.9 - Polyneuropathy, unspecified Status: Chronic Assessment and Plan: * 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 * Heavy metals testing pending * B12, folate, and TSH are WNL 04/11 * No change Time Spent With Patient Time with patient: 25 - 35 minutes Subjective Date/time seen: 04/13/24 10:49 Interval history: Interval history: This is a 49 year old male with a significant past medical history end-stage renal on peritoneal dialysis hypertension, polyneuropathy who presented to the hospital initially on 03/29/2024 with complaints of nausea /vomiting, fluid overload, and weakness. Patient had an echocardiogram done on 04/05/24 which shown severely reduced left ventricular systolic function with an estimated EF of 15-20%, grade 1 diastolic dysfunction, moderate mitral valve calcification and mild regurgitation He was found to have orthostatic hypotension that was not coming from a cardiac origin. He was placed on midodrine and shown some impr ovement. Subjective: Patient less symptomatic today with orthostatic blood pressures. Labs reviewed. Review of Systems Review of Systems: All systems reviewed & are unremarkable except as noted in HPI and below Exam Narrative: General: In no acute distress, well nourished Cardiac: Normal S1 and S2. No murmur, gallops or friction rubs, peripheral pulses intact. Respiratory: Lungs clear to auscultation, no adventitious lung sounds , currently on room air Gastrointestinal: soft, non-distended, non-tender, normoactive bowel sounds. : voiding without difficulty. Neuro: Alert and oriented x4 Objective Data Vital Signs Vital Signs: Vital Signs - 24 hr 04/12/24 12:00 04/12/24 12:54 04/12/24 12:57 Temperature Pulse Rate 75 78 90 Respiratory Rate Blood Pressure 134/86 102/75 Pulse Oximetry Oxygen Delivery 04/12/24 13:08 04/12/24 14:00 04/12/24 14:37 Temperature 98.1 F 98.1 F Pulse Rate 89 84 86 Respiratory Rate 18 18 Blood Pressure 78/52 L 135/77 114/75 Pulse Oximetry 99 99 Oxygen Delivery 04/12/24 16:00 04/12/24 19:49 04/12/24 19:49 Temperature 97.8 F Pulse Rate 81 72 72 Respiratory Rate 16 Blood Pressure 131/88 131/88 Pulse Oximetry 97 Oxygen Delivery 04/12/24 19:52 04/12/24 19:56 04/12/24 20:00 Temperature Pulse Rate 90 94 Respiratory Rate Blood Pressure 105/82 103/67 Pulse Oximetry Oxygen Delivery Room Air 04/12/24 20:00 04/12/24 20:53 04/13/24 00:00 Temperature Pulse Rate 91 81 73 Respiratory Rate Blood Pressure Pulse Oximetry Oxygen Delivery 04/13/24 04:00 04/13/24 05:08 04/13/24 08:08 Temperature 98.1 F 98.2 F Pulse Rate 81 96 96 Respiratory Rate 16 16 Blood Pressure 120/86 120/86 Pulse Oximetry 95 Oxygen Delivery 04/13/24 08:23 04/13/24 09:15 04/13/24 09:17 Temperature Pulse Rate 96 81 93 Respiratory Rate Blood Pressure 113/92 H 103/74 Pulse Oximetry Oxygen Delivery 04/13/24 09:19 Temperature Pulse Rate 91 Respiratory Rate Blood Pressure 89/75 L Pulse Oximetry Oxygen Delivery Intake/Output Intake/Output: Intake & Output 04/10/24 04/11/24 04/12/24 04/13/24 23:59 23:59 23:59 23:59 Intake Total 1360 1440 2574 1518 Output Total 703 0 Balance 657 1440 2574 1518 Meds/Results Medications: Active Medications Generic Name Dose Route Start Last Admin Trade Name Freq PRN Reason Stop Dose Admin Acetaminophen 650 mg 03/29/24 07:25 04/12/24 13:05 Acetaminophen 325 Mg Tablet PO 650 mg Q4H PRN Administration Mild Pain (1-3) or Fever Hydrocodone Bitart/Acetaminophen 1 tab 03/30/24 12:41 04/12/24 20:53 Hydrocodone/Acetaminophen (*Crx) 5-325 Mg Tablet PO 1 tab Q8H PRN Administration Pain Rated 6 or Greater Buspirone HCl 10 mg 03/29/24 09:00 04/13/24 08:23 Buspirone Hcl 10 Mg Tablet PO 10 mg TID CARIDAD Administration Calcium Acetate 2,668 mg 03/29/24 08:00 04/13/24 08:23 Calcium Acetate 667 Mg Tablet PO 2,668 mg TIDWM CARIDAD Administration Calcium Carbonate 200 mg 03/29/24 07:14 Calcium Carbonate (Tums) 500 Mg (200 Mg Elemental) PO HS PRN Indigestion Cinacalcet 90 mg 03/29/24 09:00 04/13/24 08:23 Cinacalcet 30 Mg Tablet PO 90 mg DAILY CARIDAD Administration Dextrose 12.5 gm 03/29/24 07:25 Dextrose 50% 25 Gm/50 Ml Syringe IV PUSH PRN PRN Hypoglycemia Protocol Empagliflozin 10 mg 04/07/24 09:00 04/13/24 08:24 Empagliflozin 10 Mg Tablet PO 10 mg DAILY CARIDAD Administration Enoxaparin Sodium 30 mg 03/30/24 09:00 04/13/24 08:24 Enoxaparin 30 Mg/0.3 Ml Syringe SUB-Q 30 mg DAILY CARIDAD Administration Escitalopram Oxalate 10 mg 03/29/24 09:00 04/13/24 08:24 Escitalopram Oxalate 10 Mg Tablet PO 10 mg DAILY CARIDAD Administration Gabapentin 300 mg 03/29/24 09:00 04/13/24 08:23 Gabapentin 300 Mg Capsule PO 300 mg TID CARIDAD Administration Gentamicin Sulfate 1 applic 04/10/24 18:00 04/12/24 20:50 Gentamicin Sulfate 0.1% Oint 15 Gm Tube TOPICAL 1 applic DAILY@1800 CARIDAD Administration Glucagon 1 mg 03/29/24 07:25 Glucagon For Inj 1 Mg Vial IM PRN PRN Hypoglycemia Protocol Glucose 15 gm 03/29/24 07:25 Glucose Oral Gel 15 Gm Of Glucse In 37.5 Gm Tube PO PRN PRN Hypoglycemia Protocol Dextrose 1,000 mls @ 100 mls/hr 03/29/24 07:25 Dextrose 5% 1,000 Ml IVPB PRN PRN Hypoglycemia Protocol Losartan Potassium 12.5 mg 04/07/24 09:00 04/09/24 08:43 Losartan Potassium 12.5 Mg Tablet PO 12.5 mg DAILY [facility] Administration Melatonin 10 mg 04/13/24 21:00 Melatonin 5 Mg Tablet PO HS [facility] Metoprolol Tartrate 12.5 mg 04/04/24 21:00 04/13/24 08:23 Metoprolol Tartrate 12.5 Mg Tablet PO 12.5 mg Q12HR CARIDAD Administration Midodrine 10 mg 04/12/24 13:00 04/13/24 08:23 Midodrine Hcl 10 Mg Tablet PO 10 mg TID CARIDAD Administration Midodrine 5 mg 04/12/24 13:00 04/13/24 08:23 Midodrine Hcl 2.5 Mg Tablet PO 5 mg TID CARIDAD Administration Multivitamins Therapeutic 1 tablet 04/14/24 09:00 Multivitamins Therapeutic Tab (*Bkc) PO DAILY [facility] Nortriptyline HCl 50 mg 03/29/24 21:00 04/12/24 20:53 Nortriptyline Hcl 25 Mg Capsule PO 50 mg HS [facility] Administration Ondansetron HCl 4 mg 03/29/24 00:21 04/05/24 12:30 Ondansetron Inj 4 Mg/2 Ml Vial IV PUSH 4 mg Q4H PRN Administration Nausea Ondansetron HCl 8 mg 04/05/24 12:41 04/06/24 08:52 Ondansetron Hcl Odt 4 Mg Tablet SUBLINGUAL 8 mg Q8H PRN Administration nausea and vomiting Pantoprazole Sodium 40 mg 03/29/24 09:00 04/13/24 08:24 Pantoprazole 40 Mg Tablet PO 40 mg QAM [facility] Administration Potassium Chloride 40 meq 03/29/24 09:00 04/04/24 08:59 Potassium Chloride 20 Meq Er Tablet PO 40 meq DAILY CARIDAD Administration Potassium Chloride 40 meq 04/13/24 10:47 Potassium Chloride 20 Meq Packet (For Liquid) PO 04/13/24 10:48 ONCE ONE Torsemide 100 mg 03/29/24 09:00 04/01/24 09:27 Torsemide 20 Mg Tablet PO 100 mg QAM [facility] Administration Vitamin D 5,000 units 04/11/24 13:10 04/13/24 08:23 Cholecalciferol 5,000 Units Tablet PO 5,000 units DAILY CARIDAD Administration Radiology Results: ITS Impressions Abdomen/Pelvis CT 03/28/24 21:54 IMPRESSION: No acute intra-abdominal pathology. Innumerable nonacute findings, as detailed above. Head CT 03/29/24 14:57 IMPRESSION: 1. 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 2. Stable moderate nonspecific cerebral white matter disease, which likely represents chronic small vessel ischemic disease. Cervical Spine CT 03/29/24 15:03 IMPRESSION: 1. No fracture 2. Severe cervical spondylosis. Thoracic/Lumbar Spine CT 03/29/24 15:07 IMPRESSION: 1. No fracture. 2. Moderate thoracic and lumbar spondylosis. Chest X-Ray 04/06/24 08:02 Impression: Central congestive change and possible minimal bibasilar interstitial edema. Lexiscan Stress Test 04/07/24 12:19 IMPRESSION: 1. Normal myocardial perfusion at rest and during stress. 2. Left ventricular ejection fraction measuring 49%. Labs Labs: Laboratory Results - last 24 hr 04/12/24 04/13/24 06:00 06:07 WBC 9.1 RBC 3.77 L Hgb 12.0 L Hct 36.7 L MCV 97.3 MCH 31.8 MCHC 32.7 RDW 12.6 Plt Count 427 H MPV 8.6 Immature Gran % (Auto) 0.3 Neut % (Auto) 49.0 Lymph % (Auto) 24.1 [place] % (Auto) 11.6 H Eos % (Auto) 14.1 H Baso % (Auto) 0.9 Lymph # (Auto) 2.18 [place] # (Auto) 1.1 H Eos # (Auto) 1.3 H Baso # (Auto) 0.1 Abs Immat Gran (auto) 0.03 Absolute Neuts (auto) 4.4 Absolute Nucleated RBC 0.000 Nucleated RBC % 0.0 Sodium 132 L Potassium 3.2 L Chloride 94 L Carbon Dioxide 24 Anion Gap 14 H BUN 58 H Creatinine 12.60 H Estim Creat Clear Calc 7 Estimated GFR 4 L Glucose 102 Calcium 8.0 L Phosphorus 6.4 H Magnesium 1.7 Total Bilirubin 0.4 AST 21 ALT 19 Alkaline Phosphatase 109 Total Protein 6.0 L Albumin 3.1 L Vitamin D 25-Hydroxy 18.9 Quality VTE Prophylaxis VTE prophylaxis: pharmacologic ordered
[2024-04-13] MEDS: POTASSIUM CHLORIDE 20 MEQ PACKET (FOR LIQUID) 40 MEQ PO (11:19)
--- NOTE | 2024-04-13 12:11 | P.PNNP_ITS ---
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 * stable moderate nonspecific cerebral white matter disease, which likely represents chronic small vessel ischemic disease * just on metoprolol for now * continue PT/OT as tolerated (3) Orthostatic hypotension: Code(s): I95.1 - Orthostatic hypotension Status: Acute Assessment and Plan: * still present * as noted by vital signs on admission and recently * on midodrine therapy * evaluation to date noted: * TSH okay * cortisol reasonable But with the severity of the orthostatic hypotension will check a Cortrosyn stim test * Echo results noted -- see #4 * neuropathy contributing (?) -- pulse does not rise very much when his blood pressure dropped suggesting this is playing a role * blood pressure medications, antidepressants and empagliflozin are on the list of drugs that exacerbate orthostatic hypotension * holding the losartan and torsemide for now * continuing the metoprolol and midodrine * Neurology recommendations noted (4) Cardiomyopathy: Code(s): I42.9 - Cardiomyopathy, unspecified Status: Acute Assessment and Plan: * Echo results (on 04/05) noted: * left ventricular systolic function is severely globally reduced, estimated at 15-20% * left ventricular diastolic function is grade I diastolic dysfunction * mitral valve has moderately calcified annulus * mild mitral valve regurgitation * this is a significant change from last Echo in September 2023. * HOWEVER, stress test was negative and reports an EF of 49% * on metoprolol (5) Fluid overload: Qualifiers: Hypervolemia type: unspecified Qualified Code(s): E87.70 - Fluid overload, unspecified Code(s): E87.70 - Fluid overload, unspecified Status: Acute Assessment and Plan: * stable if not improved with dialysis therapy * diuretics on hold * follow volume status (6) Anemia: Code(s): D64.9 - Anemia, unspecified Status: Acute Assessment and Plan: * hemoglobin is still supratherapeutic for ESRD * Epogen on hold * follow trend of H/H (7) Generalized weakness: Code(s): R53.1 - Weakness Status: Acute Assessment and Plan: * suspect related to recent hospitalization/deconditioning in association with prior influenza infection and orthostatic hypotension * PT/OT as tolerated (8) Peripheral neuropathy: Code(s): G62.9 - Polyneuropathy, unspecified Status: Chronic Assessment and Plan: * known diagnosis * etiology not clear * b12, TSH, and folate okay Will continue to follow. L Subjective Date/time seen: 04/13/24 12:11 Interval history: Follow-up for end stage renal disease on peritoneal dialysis. Continues to tolerated peritoneal dialysis treatments overnight; still noted with orthostatic vitals but seems to be tolerating better with only mild symptoms at this time; no other acute issues/events overnight or earlier this morning; otherwise, feels reasonably well. Exam 2 Narrative: General: WD/WN male in NAD Heart: normal S1 and S2; no rub Lungs: clear anteriorly Abdomen: soft, nontender, nondistended, positive bowel sounds Extremities: no cyanosis or clubbing; minimal edema Skin: no rash Objective Data Vital Signs Vital Signs: Vital Signs Temp Pulse Resp BP Pulse Ox O2 Del Method 04/13/24 12:00 97.4 F L 87 17 120/77 98 04/13/24 09:19 91 89/75 L 04/13/24 09:17 93 103/74 04/13/24 09:15 81 113/92 H 04/13/24 08:23 96 04/13/24 08:08 98.2 F 96 16 120/86 04/13/24 08:00 78 04/13/24 08:00 Room Air 04/13/24 05:08 98.1 F 96 16 120/86 95 04/13/24 04:00 81 04/13/24 00:00 73 04/12/24 20:53 81 04/12/24 20:00 91 04/12/24 20:00 Room Air 04/12/24 19:56 94 103/67 04/12/24 19:52 90 105/82 04/12/24 19:49 72 131/88 04/12/24 19:49 97.8 F 72 16 131/88 97 Intake/Output Intake/Output: Intake & Output 04/10/24 04/11/24 04/12/24 04/13/24 23:59 23:59 23:59 23:59 Intake Total 1360 1440 2574 1994 Output Total 703 0 Balance 657 1440 2574 1994 Meds/Results Medications: Active Medications Generic Name Dose Route Start Last Admin Trade Name Freq PRN Reason Stop Dose Admin Acetaminophen 650 mg 03/29/24 07:25 04/12/24 13:05 Acetaminophen 325 Mg Tablet PO 650 mg Q4H PRN Administration Mild Pain (1-3) or Fever Hydrocodone Bitart/Acetaminophen 1 tab 03/30/24 12:41 04/12/24 20:53 Hydrocodone/Acetaminophen (*Crx) 5-325 Mg Tablet PO 1 tab Q8H PRN Administration Pain Rated 6 or Greater Buspirone HCl 10 mg 03/29/24 09:00 04/13/24 12:34 Buspirone Hcl 10 Mg Tablet PO 10 mg TID CARIDAD Administration Calcium Acetate 2,668 mg 03/29/24 08:00 04/13/24 12:33 Calcium Acetate 667 Mg Tablet PO 2,668 mg TIDWM CARIADD Administration Calcium Carbonate 200 mg 03/29/24 07:14 Calcium Carbonate (Tums) 500 Mg (200 Mg Elemental) PO HS PRN Indigestion Cinacalcet 90 mg 03/29/24 09:00 04/13/24 08:23 Cinacalcet 30 Mg Tablet PO 90 mg DAILY CARIDAD Administration Dextrose 12.5 gm 03/29/24 07:25 Dextrose 50% 25 Gm/50 Ml Syringe IV PUSH PRN PRN Hypoglycemia Protocol Empagliflozin 10 mg 04/07/24 09:00 04/13/24 08:24 Empagliflozin 10 Mg Tablet PO 10 mg DAILY CARIDAD Administration Enoxaparin Sodium 30 mg 03/30/24 09:00 04/13/24 08:24 Enoxaparin 30 Mg/0.3 Ml Syringe SUB-Q 30 mg DAILY CARIDAD Administration Escitalopram Oxalate 10 mg 03/29/24 09:00 04/13/24 08:24 Escitalopram Oxalate 10 Mg Tablet PO 10 mg DAILY CARIDAD Administration Gabapentin 300 mg 03/29/24 09:00 04/13/24 12:34 Gabapentin 300 Mg Capsule PO 300 mg TID CARIDAD Administration Gentamicin Sulfate 1 applic 04/10/24 18:00 04/13/24 17:05 Gentamicin Sulfate 0.1% Oint 15 Gm Tube TOPICAL 1 applic DAILY@1800 CARIDAD Administration Glucagon 1 mg 03/29/24 07:25 Glucagon For Inj 1 Mg Vial IM PRN PRN Hypoglycemia Protocol Glucose 15 gm 03/29/24 07:25 Glucose Oral Gel 15 Gm Of Glucse In 37.5 Gm Tube PO PRN PRN Hypoglycemia Protocol Dextrose 1,000 mls @ 100 mls/hr 03/29/24 07:25 Dextrose 5% 1,000 Ml IVPB PRN PRN Hypoglycemia Protocol Loperamide HCl 2 mg 04/13/24 14:11 04/13/24 14:22 Loperamide Hcl 2 Mg Capsule PO 2 mg PRN PRN Administration Diarrhea Losartan Potassium 12.5 mg 04/07/24 09:00 04/09/24 08:43 Losartan Potassium 12.5 Mg Tablet PO 12.5 mg DAILY CARIDAD Administration Melatonin 10 mg 04/13/24 21:00 Melatonin 5 Mg Tablet PO HS CARIDAD Metoprolol Tartrate 12.5 mg 04/04/24 21:00 04/13/24 08:23 Metoprolol Tartrate 12.5 Mg Tablet PO 12.5 mg Q12HR CARIDAD Administration Midodrine 10 mg 04/12/24 13:00 04/13/24 12:34 Midodrine Hcl 10 Mg Tablet PO 10 mg TID CARIDAD Administration Midodrine 5 mg 04/12/24 13:00 04/13/24 12:34 Midodrine Hcl 2.5 Mg Tablet PO 5 mg TID CARIDAD Administration Multivitamins Therapeutic 1 tablet 04/14/24 09:00 Multivitamins Therapeutic Tab (*Bkc) PO DAILY CARIDAD Nortriptyline HCl 50 mg 03/29/24 21:00 04/12/24 20:53 Nortriptyline Hcl 25 Mg Capsule PO 50 mg HS CARIDAD Administration Ondansetron HCl 4 mg 03/29/24 00:21 04/05/24 12:30 Ondansetron Inj 4 Mg/2 Ml Vial IV PUSH 4 mg Q4H PRN Administration Nausea Ondansetron HCl 8 mg 04/05/24 12:41 04/06/24 08:52 Ondansetron Hcl Odt 4 Mg Tablet SUBLINGUAL 8 mg Q8H PRN Administration nausea and vomiting Pantoprazole Sodium 40 mg 03/29/24 09:00 04/13/24 08:24 Pantoprazole 40 Mg Tablet PO 40 mg QAM CARIDAD Administration Potassium Chloride 40 meq 03/29/24 09:00 04/04/24 08:59 Potassium Chloride 20 Meq Er Tablet PO 40 meq DAILY CARIDAD Administration Torsemide 100 mg 03/29/24 09:00 04/01/24 09:27 Torsemide 20 Mg Tablet PO 100 mg QAM CARIDAD Administration Vitamin D 5,000 units 04/11/24 13:10 04/13/24 08:23 Cholecalciferol 5,000 Units Tablet PO 5,000 units DAILY CARIDAD Administration Radiology Results: ITS Impressions Abdomen/Pelvis CT 03/28/24 21:54 IMPRESSION: No acute intra-abdominal pathology. Innumerable nonacute findings, as detailed above. Head CT 03/29/24 14:57 IMPRESSION: 1. 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 2. Stable moderate nonspecific cerebral white matter disease, which likely represents chronic small vessel ischemic disease. Cervical Spine CT 03/29/24 15:03 IMPRESSION: 1. No fracture 2. Severe cervical spondylosis. Thoracic/Lumbar Spine CT 03/29/24 15:07 IMPRESSION: 1. No fracture. 2. Moderate thoracic and lumbar spondylosis. Chest X-Ray 04/06/24 08:02 Impression: Central congestive change and possible minimal bibasilar interstitial edema. Lexiscan Stress Test 04/07/24 12:19 IMPRESSION: 1. Normal myocardial perfusion at rest and during stress. 2. Left ventricular ejection fraction measuring 49%. Labs Labs: Laboratory Tests 04/13/24 06:07 04/13/24 06:07 Calcium 8.0 L Phosphorus 6.4 H Magnesium 1.7 Total Bilirubin 0.4 AST 21 ALT 19 Alkaline Phosphatase 109 Total Protein 6.0 L Albumin 3.1 L
[2024-04-13] MEDS: LOPERAMIDE HCL 2 MG CAPSULE PO ×2 (14:22→20:00)
[2024-04-13] MEDS: GENTAMICIN SULFATE 0.1% OINT 15 GM TUBE 1 APPLIC TOPICAL (17:05)
[2024-04-13] MEDS: MELATONIN 5 MG TABLET 10 MG PO (19:51)
[2024-04-13] MEDS: NORTRIPTYLINE HCL 25 MG CAPSULE 50 MG PO (19:51)
[2024-04-14] VITALS (18 sets, daily range): BP systolic 88–137; BP diastolic 49–89; PULSE 69–106; RESP 16; TEMP 36.4–36.7; O2SAT 96–97
--- NOTE | 2024-04-14 07:36 | P.PNIM_ITS ---
Progress Note: A&P Assessment and Plan (1) Orthostatic hypotension: Code(s): I95.1 - Orthostatic hypotension Status: Acute Assessment and Plan: * continue midodrine and metoprolol * continue holding losartan and torsemide * neurology consulted for further assistance * losartan placed on hold 04/11 * Give midodrine 30 minutes before checking orthostatic blood pressures per Neurology recommendation * Vitamin D level was low on 08/12/23, will recheck * Will check Vitamin B12 today * cortisol stimulation test was normal. * Patient needs to wear abdominal binder and gladis hose when getting out of bed. 04/12 * Patient is still orthostatic after receiving midodrine today he minutes prior to checking orthostatic blood pressures. * We will increase his midodrine to 15 mg t.i.d. * Continue abdominal binder and gladis hose * Neurology following * vitamin D level pending * Patient is on Nortriptyline which can cause orthostatic hypotension. He started this medication about a year ago and has been tolerating it without issue. We could consider decreasing or switching him to a different depression medication to see if this helps improve his orthostatic hypotension. 04/13 * Patient is still orthostatic today but is not as symptomatic * Vitamin D level 18.9, will start Vitamin D supplement * Vitamin B12 743 * Will start weaning Nortriptyline * continue gladis hose * 04/14 patient still with positive orthostatics signs, he symptomatic today Nortriptyline changed to Wellbutrin (2) End-stage renal disease on peritoneal dialysis: Code(s): N18.6 - End stage renal disease; Z99.2 - Dependence on renal dialysis Status: Acute Assessment and Plan: * continue nightly peritoneal dialysis * nephrology following * Daily labs (3) Multiple falls: Code(s): R29.6 - Repeated falls Status: Acute Assessment and Plan: * continue PT and OT * plan is to go home with [place] home [facility] when medically stable (4) Cardiomyopathy: Code(s): I42.9 - Cardiomyopathy, unspecified Status: Acute Assessment and Plan: Stable * echocardiogram showing severely reduced LV systolic function with an estimated EF of 15-20%, grade 1 diastolic dysfunction * continue metoprolol * losartan and torsemide on hold due to orthostatic hypotension * Continue to hold losartan and torsemide (5) Fluid overload: Qualifiers: Hypervolemia type: unspecified Qualified Code(s): E87.70 - Fluid overload, unspecified Code(s): E87.70 - Fluid overload, unspecified Status: Acute Assessment and Plan: * improved with peritoneal dialysis (6) Anemia of chronic disease: Code(s): D63.8 - Anemia in other chronic diseases classified elsewhere Status: Acute Assessment and Plan: Stable * likely secondary to to be end-stage renal disease * No signs of acute bleeding * Daily CBCs (7) Generalized weakness: Code(s): R53.1 - Weakness Status: Acute Assessment and Plan: * continue PT and OT * plan for home health when stable for discharge (8) Peripheral neuropathy: Code(s): G62.9 - Polyneuropathy, unspecified Status: Chronic Assessment and Plan: * 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 * Heavy metals testing pending * B12, folate, and TSH are WNL Time Spent With Patient Time with patient: Greater than 35 minutes Subjective Date/time seen: 04/14/24 07:36 Interval history: Interval history: This is a 49 year old male with a significant past medical history end-stage renal on peritoneal dialysis hypertension, polyneuropathy who presented to the hospital initially on 03/29/2024 with complaints of nausea /vomiting, fluid overload, and weakness. Patient had an echocardiogram done on 04/05/24 which shown severely reduced left ventricular systolic function with an estimated EF of 15-20%, grade 1 diastolic dysfunction, moderate mitral valve calcification and mild regurgitation He was found to have orthostatic hypotension that was not coming from a cardiac origin. He was placed on midodrine and shown some improvement. Subjective: Patient with positive orthostatics signs. Today he feels extremely weak and dizzy. Review of Systems Review of Systems: All systems reviewed & are unremarkable except as noted in HPI and below Exam Narrative: General: [id number], appears stated age. HEENT: normocephalic, atraumatic. Mucous membranes moist. EOMI, PERRLA, bilatera l sclera anicteric, no conjunctival injection. Neck supple without JVD, lymphadenopathy, or bruit. Respiratory: clear to ascultation bilaterally. No rales/rhonic/wheezes. Cardiovascular: Regular rate and rhythm, normal S1-S2 upon ascultation. No murmurs, rubs, or clicks. PMI is nondisplaced, capillary refill less than 3 second. Abdomen: Soft, round, no pulsatile masses, nondistended and nontender. No rebound, no guarding. No CVA tenderness, no hepatosplenomegaly. Bowel sounds present to all four quadrants. No high pitch or tinkling sounds, resonant to percussion. PD cath Extremities: No cyanosis, clubbing, or edema present. Pulses are palpable 2/2. Active ROM to all four extremities. Neuro: Alert and orientated x 4. PERRLA. Cranial nerves 2-12 intact without focal deficit. Skin: Warm, dry, and intact, without rash, erythema, or lesion. Psych: pleasant, cooperative, normal speech, normal affect, no hallucinations, no dysarthia Objective Data Vital Signs Vital Signs: Vital Signs - 24 hr 04/13/24 08:00 04/13/24 08:00 04/13/24 08:08 Temperature 98.2 F Pulse Rate 78 96 Respiratory Rate 16 Blood Pressure 120/86 Pulse Oximetry Oxygen Delivery Room Air 04/13/24 08:23 04/13/24 09:15 04/13/24 09:17 Temperature Pulse Rate 96 81 93 Respiratory Rate Blood Pressure 113/92 H 103/74 Pulse Oximetry Oxygen Delivery 04/13/24 09:19 04/13/24 12:00 04/13/24 14:00 Temperature 97.4 F L Pulse Rate 91 69 87 Respiratory Rate 17 Blood Pressure 89/75 L 120/77 Pulse Oximetry 98 Oxygen Delivery 04/13/24 16:00 04/13/24 17:50 04/13/24 17:52 Temperature Pulse Rate 75 73 83 Respiratory Rate Blood Pressure 133/89 111/84 Pulse Oximetry Oxygen Delivery 04/13/24 17:54 04/13/24 19:51 04/13/24 20:00 Temperature Pulse Rate 91 86 Respiratory Rate Blood Pressure 101/71 Pulse Oximetry Oxygen Delivery Room Air 04/13/24 20:00 04/13/24 20:10 04/13/24 20:10 Temperature 97.6 F Pulse Rate 82 77 77 Respiratory Rate 16 Blood Pressure 130/80 130/80 Pulse Oximetry 97 Oxygen Delivery 04/13/24 20:15 04/13/24 20:19 04/14/24 00:00 Temperature Pulse Rate 88 98 74 Respiratory Rate Blood Pressure 108/63 93/59 L Pulse Oximetry Oxygen Delivery 04/14/24 04:00 04/14/24 04:45 Temperature 97.8 F Pulse Rate 77 69 Respiratory Rate 16 Blood Pressure 133/89 Pulse Oximetry 96 Oxygen Delivery Intake/Output Intake/Output: Intake & Output 04/11/24 04/12/24 04/13/24 04/14/24 23:59 23:59 23:59 23:59 Intake Total 1440 2574 2635 200 Output Total 0 Balance 1440 2574 2635 200 Meds/Results Medications: Active Medications Generic Name Dose Route Start Last Admin Trade Name Freq PRN Reason Stop Dose Admin Acetaminophen 650 mg 03/29/24 07:25 04/12/24 13:05 Acetaminophen 325 Mg Tablet PO 650 mg Q4H PRN Administration Mild Pain (1-3) or Fever Hydrocodone Bitart/Acetaminophen 1 tab 03/30/24 12:41 04/12/24 20:53 Hydrocodone/Acetaminophen (*Crx) 5-325 Mg Tablet PO 1 tab Q8H PRN Administration Pain Rated 6 or Greater Buspirone HCl 10 mg 03/29/24 09:00 04/13/24 17:14 Buspirone Hcl 10 Mg Tablet PO 10 mg TID CARIDAD Administration Calcium Acetate 2,668 mg 03/29/24 08:00 04/13/24 17:14 Calcium Acetate 667 Mg Tablet PO 2,668 mg TIDWM CARIDAD Administration Calcium Carbonate 200 mg 03/29/24 07:14 Calcium Carbonate (Tums) 500 Mg (200 Mg Elemental) PO HS PRN Indigestion Cinacalcet 90 mg 03/29/24 09:00 04/13/24 08:23 Cinacalcet 30 Mg Tablet PO 90 mg DAILY CARIDAD Administration Dextrose 12.5 gm 03/29/24 07:25 Dextrose 50% 25 Gm/50 Ml Syringe IV PUSH PRN PRN Hypoglycemia Protocol Empagliflozin 10 mg 04/07/24 09:00 04/13/24 08:24 Empagliflozin 10 Mg Tablet PO 10 mg DAILY CARIDAD Administration Enoxaparin Sodium 30 mg 03/30/24 09:00 04/13/24 08:24 Enoxaparin 30 Mg/0.3 Ml Syringe SUB-Q 30 mg DAILY CARIDAD Administration Escitalopram Oxalate 10 mg 03/29/24 09:00 04/13/24 08:24 Escitalopram Oxalate 10 Mg Tablet PO 10 mg DAILY CARIDAD Administration Gabapentin 300 mg 03/29/24 09:00 04/13/24 17:14 Gabapentin 300 Mg Capsule PO 300 mg TID CARIDAD Administration Gentamicin Sulfate 1 applic 04/10/24 18:00 04/13/24 17:05 Gentamicin Sulfate 0.1% Oint 15 Gm Tube TOPICAL 1 applic DAILY@1800 CARIDAD Administration Glucagon 1 mg 03/29/24 07:25 Glucagon For Inj 1 Mg Vial IM PRN PRN Hypoglycemia Protocol Glucose 15 gm 03/29/24 07:25 Glucose Oral Gel 15 Gm Of Glucse In 37.5 Gm Tube PO PRN PRN Hypoglycemia Protocol Dextrose 1,000 mls @ 100 mls/hr 03/29/24 07:25 Dextrose 5% 1,000 Ml IVPB PRN PRN Hypoglycemia Protocol Loperamide HCl 2 mg 04/13/24 14:11 04/13/24 20:00 Loperamide Hcl 2 Mg Capsule PO 2 mg PRN PRN Administration Diarrhea Losartan Potassium 12.5 mg 04/07/24 09:00 04/09/24 08:43 Losartan Potassium 12.5 Mg Tablet PO 12.5 mg DAILY CARIDAD Administration Melatonin 10 mg 04/13/24 21:00 04/13/24 19:51 Melatonin 5 Mg Tablet PO 10 mg HS CARIDAD Administration Metoprolol Tartrate 12.5 mg 04/04/24 21:00 04/13/24 19:51 Metoprolol Tartrate 12.5 Mg Tablet PO 12.5 mg Q12HR CARIDAD Administration Midodrine 10 mg 04/12/24 13:00 04/13/24 17:14 Midodrine Hcl 10 Mg Tablet PO 10 mg TID CARIDAD Administration Midodrine 5 mg 04/12/24 13:00 04/13/24 17:14 Midodrine Hcl 2.5 Mg Tablet PO 5 mg TID CARIDAD Administration Multivitamins Therapeutic 1 tablet 04/14/24 09:00 Multivitamins Therapeutic Tab (*Bkc) PO DAILY CARIDAD Nortriptyline HCl 50 mg 03/29/24 21:00 04/13/24 19:51 Nortriptyline Hcl 25 Mg Capsule PO 50 mg HS CARIDAD Administration Ondansetron HCl 4 mg 03/29/24 00:21 04/05/24 12:30 Ondansetron Inj 4 Mg/2 Ml Vial IV PUSH 4 mg Q4H PRN Administration Nausea Ondansetron HCl 8 mg 04/05/24 12:41 04/06/24 08:52 Ondansetron Hcl Odt 4 Mg Tablet SUBLINGUAL 8 mg Q8H PRN Administration nausea and vomiting Pantoprazole Sodium 40 mg 03/29/24 09:00 04/13/24 08:24 Pantoprazole 40 Mg Tablet PO 40 mg QAM CARIDAD Administration Potassium Chloride 40 meq 03/29/24 09:00 04/04/24 08:59 Potassium Chloride 20 Meq Er Tablet PO 40 meq DAILY CARIDAD Administration Torsemide 100 mg 03/29/24 09:00 04/01/24 09:27 Torsemide 20 Mg Tablet PO 100 mg QAM CARIDAD Administration Vitamin D 5,000 units 04/11/24 13:10 04/13/24 08:23 Cholecalciferol 5,000 Units Tablet PO 5,000 units DAILY CARIDAD Administration Radiology Results: ITS Impressions Abdomen/Pelvis CT 03/28/24 21:54 IMPRESSION: No acute intra-abdominal pathology. Innumerable nonacute findings, as detailed above. Head CT 03/29/24 14:57 IMPRESSION: 1. 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 2. Stable moderate nonspecific cerebral white matter disease, which likely represents chronic small vessel ischemic disease. Cervical Spine CT 03/29/24 15:03 IMPRESSION: 1. No fracture 2. Severe cervical spondylosis. Thoracic/Lumbar Spine CT 03/29/24 15:07 IMPRESSION: 1. No fracture. 2. Moderate thoracic and lumbar spondylosis. Chest X-Ray 04/06/24 08:02 Impression: Central congestive change and possible minimal bibasilar interstitial edema. Lexiscan Stress Test 04/07/24 12:19 IMPRESSION: 1. Normal myocardial perfusion at rest and during stress. 2. Left ventricular ejection fraction measuring 49%. Quality VTE Prophylaxis VTE prophylaxis: pharmacologic ordered
[2024-04-14] MEDS: METOPROLOL TARTRATE 12.5 MG TABLET PO ×2 (08:37→20:39)
[2024-04-14] MEDS: CINACALCET 30 MG TABLET 90 MG PO (08:37)
[2024-04-14] MEDS: EMPAGLIFLOZIN 10 MG TABLET PO (08:38)
[2024-04-14] MEDS: CALCIUM ACETATE 667 MG TABLET 2668 MG PO ×3 (08:38→16:26)
[2024-04-14] MEDS: busPIRone HCL 10 MG TABLET PO ×3 (08:38→16:25)
[2024-04-14] MEDS: MULTIVITAMINS THERAPEUTIC TAB (*BKC) 1 TABLET PO (08:38)
[2024-04-14] MEDS: ESCITALOPRAM OXALATE 10 MG TABLET PO (08:38)
[2024-04-14] MEDS: GABAPENTIN 300 MG CAPSULE PO ×3 (08:38→16:31)
[2024-04-14] MEDS: PANTOPRAZOLE 40 MG TABLET PO (08:38)
[2024-04-14] MEDS: MIDODRINE HCL 10 MG TABLET PO ×3 (08:38→16:26)
[2024-04-14] MEDS: MIDODRINE HCL 2.5 MG TABLET 5 MG PO ×3 (08:38→16:25)
[2024-04-14] MEDS: CHOLECALCIFEROL 5,000 UNITS TABLET 5000 UNITS PO (08:38)
[2024-04-14] MEDS: ENOXAPARIN 30 MG/0.3 ML SYRINGE SUB-Q (08:38)
[2024-04-14] MEDS: POTASSIUM CHLORIDE 20 MEQ ER TABLET 40 MEQ PO (09:30)
[2024-04-14] MEDS: ACETAMINOPHEN 325 MG TABLET 650 MG PO (09:30)
[2024-04-14] MEDS: buPROPion HCL XL (24 HR) 150 MG TABCR PO (09:31)
--- NOTE | 2024-04-14 11:51 | P.PNNP_ITS ---
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 * stable moderate nonspecific cerebral white matter disease, which likely represents chronic small vessel ischemic disease * just on metoprolol for now * continue PT/OT as tolerated (3) Orthostatic hypotension: Code(s): I95.1 - Orthostatic hypotension Status: Acute Assessment and Plan: * still present but better symptoms * as noted by vital signs on admission and recently * on midodrine therapy * evaluation to date noted: * TSH okay * cortisol reasonable But with the severity of the orthostatic hypotension will check a Cortrosyn stim test * Echo results noted -- see #4 * neuropathy contributing (?) -- pulse does not rise very much when his blood pressure dropped suggesting this is playing a role * blood pressure medications, antidepressants and empagliflozin are on the list of drugs that exacerbate orthostatic hypotension * holding the losartan and torsemide for now * continuing the metoprolol and midodrine * Neurology recommendations noted (4) Cardiomyopathy: Code(s): I42.9 - Cardiomyopathy, unspecified Status: Acute Assessment and Plan: * Echo results (on 04/05) noted: * left ventricular systolic function is severely globally reduced, estimated at 15-20% * left ventricular diastolic function is grade I diastolic dysfunction * mitral valve has moderately calcified annulus * mild mitral valve regurgitation * this is a significant change from last Echo in September 2023. * HOWEVER, stress test was negative and reports an EF of 49% * on metoprolol (5) Fluid overload: Qualifiers: Hypervolemia type: unspecified Qualified Code(s): E87.70 - Fluid overload, unspecified Code(s): E87.70 - Fluid overload, unspecified Status: Acute Assessment and Plan: * stable if not improved with dialysis therapy * diuretics on hold * follow volume status (6) Anemia: Code(s): D64.9 - Anemia, unspecified Status: Acute Assessment and Plan: * hemoglobin is still supratherapeutic for ESRD * Epogen on hold * follow trend of H/H (7) Generalized weakness: Code(s): R53.1 - Weakness Status: Acute Assessment and Plan: * suspect related to recent hospitalization/deconditioning in association with prior influenza infection and orthostatic hypotension * PT/OT as tolerated (8) Peripheral neuropathy: Code(s): G62.9 - Polyneuropathy, unspecified Status: Chronic Assessment and Plan: * known diagnosis * etiology not clear * b12, TSH, and folate okay Will continue to follow. L Subjective Date/time seen: 04/14/24 11:51 Interval history: Follow-up for end stage renal disease on peritoneal dialysis. Tolerated peritoneal dialysis treatment without any issues or problems (CCPD supervised overnight and seen at 11:40AM); reasonable symptom control despite ongoing orthostatic blood pressure readings; no apparent distress to report when seen; no other acute complaints voiced. Exam 2 Narrative: General: WD/WN male in NAD Heart: normal S1 and S2; no rub Lungs: clear anteriorly Abdomen: soft, nontender, nondistended, positive bowel sounds Extremities: no cyanosis or clubbing; minimal edema Skin: no nodules Objective Data Vital Signs Vital Signs: Vital Signs Temp Pulse Resp BP Pulse Ox O2 Del Method 04/14/24 09:21 106 H 88/49 L (standing) 04/14/24 09:19 97 105/72 (sitting) 04/14/24 09:17 86 137/87 (supine) 04/14/24 08:40 Room Air 04/14/24 08:37 96 04/14/24 08:00 81 04/14/24 07:40 98.0 F 87 16 120/84 04/14/24 04:45 97.8 F 69 16 133/89 96 04/14/24 04:00 77 04/14/24 00:00 74 04/13/24 20:19 98 93/59 L 04/13/24 20:15 88 108/63 04/13/24 20:10 77 130/80 04/13/24 20:10 97.6 F 77 16 130/80 97 04/13/24 20:00 82 04/13/24 20:00 Room Air 04/13/24 19:51 86 04/13/24 17:54 91 101/71 04/13/24 17:52 83 111/84 04/13/24 17:50 73 133/89 04/13/24 16:00 75 04/13/24 14:00 97.4 F L 87 17 120/77 98 Intake/Output Intake/Output: Intake & Output 04/11/24 04/12/24 04/13/24 04/14/24 23:59 23:59 23:59 23:59 Intake Total 1440 2574 2635 200 Output Total 0 Balance 1440 2574 2635 200 Meds/Results Medications: Active Medications Generic Name Dose Route Start Last Admin Trade Name Freq PRN Reason Stop Dose Admin Acetaminophen 650 mg 03/29/24 07:25 04/14/24 09:30 Acetaminophen 325 Mg Tablet PO 650 mg Q4H PRN Administration Mild Pain (1-3) or Fever Hydrocodone Bitart/Acetaminophen 1 tab 03/30/24 12:41 04/14/24 13:37 Hydrocodone/Acetaminophen (*Crx) 5-325 Mg Tablet PO 1 tab Q8H PRN Administration Pain Rated 6 or Greater Bupropion HCl 150 mg 04/14/24 09:00 04/14/24 09:31 Bupropion Hcl Xl (24 Hr) 150 Mg Tabcr PO 150 mg QAM CARIDAD Administration Buspirone HCl 10 mg 03/29/24 09:00 04/14/24 12:10 Buspirone Hcl 10 Mg Tablet PO 10 mg TID CARIDAD Administration Calcium Acetate 2,668 mg 03/29/24 08:00 04/14/24 12:10 Calcium Acetate 667 Mg Tablet PO 2,668 mg TIDWM CARIDAD Administration Calcium Carbonate 200 mg 03/29/24 07:14 Calcium Carbonate (Tums) 500 Mg (200 Mg Elemental) PO HS PRN Indigestion Cinacalcet 90 mg 03/29/24 09:00 04/14/24 08:37 Cinacalcet 30 Mg Tablet PO 90 mg DAILY CARIDAD Administration Dextrose 12.5 gm 03/29/24 07:25 Dextrose 50% 25 Gm/50 Ml Syringe IV PUSH PRN PRN Hypoglycemia Protocol Empagliflozin 10 mg 04/07/24 09:00 04/14/24 08:38 Empagliflozin 10 Mg Tablet PO 10 mg DAILY CARIDAD Administration Enoxaparin Sodium 30 mg 03/30/24 09:00 04/14/24 08:38 Enoxaparin 30 Mg/0.3 Ml Syringe SUB-Q 30 mg DAILY CARIDAD Administration Escitalopram Oxalate 10 mg 03/29/24 09:00 04/14/24 08:38 Escitalopram Oxalate 10 Mg Tablet PO 10 mg DAILY CARIDAD Administration Gabapentin 300 mg 03/29/24 09:00 04/14/24 12:10 Gabapentin 300 Mg Capsule PO 300 mg TID CARIDAD Administration Gentamicin Sulfate 1 applic 04/10/24 18:00 04/13/24 17:05 Gentamicin Sulfate 0.1% Oint 15 Gm Tube TOPICAL 1 applic DAILY@1800 CARIDAD Administration Glucagon 1 mg 03/29/24 07:25 Glucagon For Inj 1 Mg Vial IM PRN PRN Hypoglycemia Protocol Glucose 15 gm 03/29/24 07:25 Glucose Oral Gel 15 Gm Of Glucse In 37.5 Gm Tube PO PRN PRN Hypoglycemia Protocol Dextrose 1,000 mls @ 100 mls/hr 03/29/24 07:25 Dextrose 5% 1,000 Ml IVPB PRN PRN Hypoglycemia Protocol Loperamide HCl 2 mg 04/13/24 14:11 04/13/24 20:00 Loperamide Hcl 2 Mg Capsule PO 2 mg PRN PRN Administration Diarrhea Losartan Potassium 12.5 mg 04/07/24 09:00 04/09/24 08:43 Losartan Potassium 12.5 Mg Tablet PO 12.5 mg DAILY CARIDAD Administration Melatonin 10 mg 04/13/24 21:00 04/13/24 19:51 Melatonin 5 Mg Tablet PO 10 mg HS CARIDAD Administration Metoprolol Tartrate 12.5 mg 04/04/24 21:00 04/14/24 08:37 Metoprolol Tartrate 12.5 Mg Tablet PO 12.5 mg Q12HR CARIDAD Administration Midodrine 10 mg 04/12/24 13:00 04/14/24 12:10 Midodrine Hcl 10 Mg Tablet PO 10 mg TID CARIDAD Administration Midodrine 5 mg 04/12/24 13:00 04/14/24 12:10 Midodrine Hcl 2.5 Mg Tablet PO 5 mg TID CARIDAD Administration Multivitamins Therapeutic 1 tablet 04/14/24 09:00 04/14/24 08:38 Multivitamins Therapeutic Tab (*Bkc) PO 1 tablet DAILY CARIDAD Administration Nortriptyline HCl 25 mg 04/14/24 21:00 Nortriptyline Hcl 25 Mg Capsule PO HS CARIDAD Ondansetron HCl 4 mg 03/29/24 00:21 04/05/24 12:30 Ondansetron Inj 4 Mg/2 Ml Vial IV PUSH 4 mg Q4H PRN Administration Nausea Ondansetron HCl 8 mg 04/05/24 12:41 04/06/24 08:52 Ondansetron Hcl Odt 4 Mg Tablet SUBLINGUAL 8 mg Q8H PRN Administration nausea and vomiting Pantoprazole Sodium 40 mg 03/29/24 09:00 04/14/24 08:38 Pantoprazole 40 Mg Tablet PO 40 mg QAM CARIDAD Administration Potassium Chloride 40 meq 03/29/24 09:00 04/14/24 09:30 Potassium Chloride 20 Meq Er Tablet PO 40 meq DAILY CARIDAD Administration Torsemide 100 mg 03/29/24 09:00 04/01/24 09:27 Torsemide 20 Mg Tablet PO 100 mg QAM CARIDAD Administration Vitamin D 5,000 units 04/11/24 13:10 04/14/24 08:38 Cholecalciferol 5,000 Units Tablet PO 5,000 units DAILY CARIDAD Administration Radiology Results: ITS Impressions Abdomen/Pelvis CT 03/28/24 21:54 IMPRESSION: No acute intra-abdominal pathology. Innumerable nonacute findings, as detailed above. Head CT 03/29/24 14:57 IMPRESSION: 1. 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 2. Stable moderate nonspecific cerebral white matter disease, which likely represents chronic small vessel ischemic disease. Cervical Spine CT 03/29/24 15:03 IMPRESSION: 1. No fracture 2. Severe cervical spondylosis. Thoracic/Lumbar Spine CT 03/29/24 15:07 IMPRESSION: 1. No fracture. 2. Moderate thoracic and lumbar spondylosis. Chest X-Ray 04/06/24 08:02 Impression: Central congestive change and possible minimal bibasilar interstitial edema. Lexiscan Stress Test 04/07/24 12:19 IMPRESSION: 1. Normal myocardial perfusion at rest and during stress. 2. Left ventricular ejection fraction measuring 49%. Labs Labs: Laboratory Tests 04/13/24 06:07 04/13/24 06:07
[2024-04-14] MEDS: HYDROcodone/acetaminophen (*CRX) 5-325 MG TABLET 1 TAB PO (13:37)
--- NOTE | 2024-04-14 14:42 | PCPTNOTE ---
PT attempted to re-evaluate patient today 04/14/2024 14:42, per Nursing, pt is not stable due to significant fluctuations of BP. Pt. also declined stating he is not feeling good and could hardly do anything today .
--- NOTE | 2024-04-14 14:44 | PCPTNOTE ---
Re-evaluation on hold today 04/14/2024 due to fluctuating BP and pt unable to tolerate activities. Will monitor.
--- NOTE | 2024-04-14 15:32 | PC.NURSE ---
On 04/14/24, the student, Sintia Feldman, provided care and completed [facility] documentation on this patient. I have reviewed the student's documentation and agree with the findings.
[2024-04-14] MEDS: LOPERAMIDE HCL 2 MG CAPSULE PO (20:39)
[2024-04-14] MEDS: MELATONIN 5 MG TABLET 10 MG PO (20:40)
[2024-04-14] MEDS: NORTRIPTYLINE HCL 25 MG CAPSULE PO (20:40)
[2024-04-15] VITALS (7 sets, daily range): BP systolic 125; BP diastolic 88; PULSE 73–95; RESP 16; TEMP 37; O2SAT 98
--- NOTE | 2024-04-15 07:13 | P.PNIM_ITS ---
Progress Note: A&P Assessment and Plan (1) Orthostatic hypotension: Code(s): I95.1 - Orthostatic hypotension Status: Acute Assessment and Plan: * continue midodrine and metoprolol * continue holding losartan and torsemide * neurology consulted for further assistance * losartan placed on hold 04/11 * Give midodrine 30 minutes before checking orthostatic blood pressures per Neurology recommendation * Vitamin D level was low on 08/12/23, will recheck * Will check Vitamin B12 today * cortisol stimulation test was normal. * Patient needs to wear abdominal binder and gladis hose when getting out of bed. 04/12 * Patient is still orthostatic after receiving midodrine today he minutes prior to checking orthostatic blood pressures. * We will increase his midodrine to 15 mg t.i.d. * Continue abdominal binder and gladis hose * Neurology following * vitamin D level pending * Patient is on Nortriptyline which can cause orthostatic hypotension. He started this medication about a year ago and has been tolerating it without issue. We could consider decreasing or switching him to a different depression medication to see if this helps improve his orthostatic hypotension. 04/13 * Patient is still orthostatic today but is not as symptomatic * Vitamin D level 18.9, will start Vitamin D supplement * Vitamin B12 743 * Will start weaning Nortriptyline * continue gladis hose * 04/14 patient still with positive orthostatics signs, he symptomatic today Nortriptyline changed to Wellbutrin (2) End-stage renal disease on peritoneal dialysis: Code(s): N18.6 - End stage renal disease; Z99.2 - Dependence on renal dialysis Status: Acute Assessment and Plan: * continue nightly peritoneal dialysis * nephrology following * Daily labs (3) Multiple falls: Code(s): R29.6 - Repeated falls Status: Acute Assessment and Plan: * continue PT and OT * plan is to go home with [facility] when medically stable (4) Cardiomyopathy: Code(s): I42.9 - Cardiomyopathy, unspecified Status: Acute Assessment and Plan: Stable * echocardiogram showing severely reduced LV systolic function with an estimated EF of 15-20%, grade 1 diastolic dysfunction * continue metoprolol * losartan and torsemide on hold due to orthostatic hypotension * Continue to hold losartan and torsemide (5) Fluid overload: Qualifiers: Hypervolemia type: unspecified Qualified Code(s): E87.70 - Fluid overload, unspecified Code(s): E87.70 - Fluid overload, unspecified Status: Acute Assessment and Plan: * improved with peritoneal dialysis (6) Anemia of chronic disease: Code(s): D63.8 - Anemia in other chronic diseases classified elsewhere Status: Acute Assessment and Plan: Stable * likely secondary to to be end-stage renal disease * No signs of acute bleeding * Daily CBCs (7) Generalized weakness: Code(s): R53.1 - Weakness Status: Acute Assessment and Plan: * continue PT and OT * plan for home health when stable for discharge (8) Peripheral neuropathy: Code(s): G62.9 - Polyneuropathy, unspecified Status: Chronic Assessment and Plan: * 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 * Heavy metals testing pending * B12, folate, and TSH are WNL Plan 49 year old male with a significant past medical history end-stage renal on peritoneal dialysis hypertension, polyneuropathy who presented to the hospital initially on 03/29/2024 with complaints of nausea /vomiting, fluid overload, and weakness. Patient had an echocardiogram done on 04/05/24 which shown severely reduced left ventricular systolic function with an estimated EF of 15-20%, grade 1 diastolic dysfunction, moderate mitral valve calcification and mild regurgitation He was found to have orthostatic hypotension that was not coming from a cardiac origin. He was placed on midodrine and shown some improvement. Subjective Date/time seen: 04/15/24 07:14 Interval history: 49 year old male with a significant past medical history end-stage renal on peritoneal dialysis hypertension, polyneuropathy who presented to the hospital initially on 03/29/2024 with complaints of nausea /vomiting, fluid overload, and weakness. Subjective: Patient with positive orthostatics signs. Today he feels extremely weak and dizzy. PD patient Review of Systems Review of Systems: All systems reviewed & are unremarkable except as noted in HPI and below Exam Narrative: General: [id number], appears stated age. HEENT: normocephalic, atraumatic. Mucous membranes moist. EOMI, PERRLA, bilateral sclera anicteric, no conjunctival injection. Neck supple without JVD, lymphadenopathy, or bruit. Respiratory: clear to ascultation bilaterally. No rales/rhonic/wheezes. Cardiovascular: Regular rate and rhythm, normal S1-S2 upon ascultation. No murmurs, rubs, or clicks. PMI is nondisplaced, capillary refill less than 3 second. Abdomen: Soft, round, no pulsatile masses, nondistended and nontender. No rebound, no guarding. No CVA tenderness, no hepatosplenomegaly. Bowel sounds present to all four quadrants. No high pitch or tinkling sounds, resonant to percussion. PD cath Extremities: No cyanosis, clubbing, or edema present. Pulses are palpable 2/2. Active ROM to all four extremities. Neuro: Alert and orientated x 4. PERRLA. Cranial nerves 2-12 intact without focal deficit. Skin: Warm, dry, and intact, without rash, erythema, or lesion. Psych: pleasant, cooperative, normal speech, normal affect, no hallucinations, no dysarthia Objective Data Vital Signs Vital Signs: Vital Signs - 24 hr 04/14/24 07:40 04/14/24 08:00 04/14/24 08:37 Temperature 98.0 F Pulse Rate 87 81 96 Respiratory Rate 16 Blood Pressure 120/84 Pulse Oximetry Oxygen Delivery 04/14/24 08:40 04/14/24 09:17 04/14/24 09:19 Temperature Pulse Rate 86 97 Respiratory Rate Blood Pressure 137/87 105/72 Pulse Oximetry Oxygen Delivery Room Air 04/14/24 09:21 04/14/24 11:59 04/14/24 12:00 Temperature Pulse Rate 106 H 76 74 Respiratory Rate Blood Pressure 88/49 L Pulse Oximetry Oxygen Delivery 04/14/24 14:02 04/14/24 16:00 04/14/24 20:00 Temperature 98.1 F Pulse Rate 79 79 Respiratory Rate 16 Blood Pressure 112/70 Pulse Oximetry 96 Oxygen Delivery Room Air 04/14/24 20:00 04/14/24 20:39 04/14/24 20:54 Temperature 97.6 F Pulse Rate 85 83 74 Respiratory Rate 16 Blood Pressure 131/89 Pulse Oximetry 97 Oxygen Delivery 04/14/24 20:54 04/14/24 20:57 04/14/24 21:07 Temperature Pulse Rate 74 87 93 Respiratory Rate Blood Pressure 131/89 120/83 117/74 Pulse Oximetry Oxygen Delivery 04/15/24 00:00 04/15/24 04:00 04/15/24 06:44 Temperature 98.6 F Pulse Rate 74 73 95 Respiratory Rate 16 Blood Pressure 125/88 Pulse Oximetry 98 Oxygen Delivery Intake/Output Intake/Output: Intake & Output 04/12/24 04/13/24 04/14/24 04/15/24 23:59 23:59 23:59 23:59 Intake Total 2574 2635 680 300 Balance 2574 2635 680 300 Meds/Results Medications: Active Medications Generic Name Dose Route Start Last Admin Trade Name Freq PRN Reason Stop Dose Admin Acetaminophen 650 mg 03/29/24 07:25 04/14/24 09:30 Acetaminophen 325 Mg Tablet PO 650 mg Q4H PRN Administration Mild Pain (1-3) or Fever Hydrocodone Bitart/Acetaminophen 1 tab 03/30/24 12:41 04/14/24 13:37 Hydrocodone/Acetaminophen (*Crx) 5-325 Mg Tablet PO 1 tab Q8H PRN Administration Pain Rated 6 or Greater Bupropion HCl 150 mg 04/14/24 09:00 04/14/24 09:31 Bupropion Hcl Xl (24 Hr) 150 Mg Tabcr PO 150 mg QAM CARIDAD Administration Buspirone HCl 10 mg 03/29/24 09:00 04/14/24 16:25 Buspirone Hcl 10 Mg Tablet PO 10 mg TID CARIDAD Administration Calcium Acetate 2,668 mg 03/29/24 08:00 04/14/24 16:26 Calcium Acetate 667 Mg Tablet PO 2,668 mg TIDWM CARIDAD Administration Calcium Carbonate 200 mg 03/29/24 07:14 Calcium Carbonate (Tums) 500 Mg (200 Mg Elemental) PO HS PRN Indigestion Cinacalcet 90 mg 03/29/24 09:00 04/14/24 08:37 Cinacalcet 30 Mg Tablet PO 90 mg DAILY CARIDAD Administration Dextrose 12.5 gm 03/29/24 07:25 Dextrose 50% 25 Gm/50 Ml Syringe IV PUSH PRN PRN Hypoglycemia Protocol Empagliflozin 10 mg 04/07/24 09:00 04/14/24 08:38 Empagliflozin 10 Mg Tablet PO 10 mg DAILY CARIDAD Administration Enoxaparin Sodium 30 mg 03/30/24 09:00 04/14/24 08:38 Enoxaparin 30 Mg/0.3 Ml Syringe SUB-Q 30 mg DAILY CARIDAD Administration Escitalopram Oxalate 10 mg 03/29/24 09:00 04/14/24 08:38 Escitalopram Oxalate 10 Mg Tablet PO 10 mg DAILY CARIDAD Administration Gabapentin 300 mg 03/29/24 09:00 04/14/24 16:31 Gabapentin 300 Mg Capsule PO 300 mg TID CARIDAD Administration Gentamicin Sulfate 1 applic 04/10/24 18:00 04/14/24 14:19 Gentamicin Sulfate 0.1% Oint 15 Gm Tube TOPICAL Not Given DAILY@1800 CARIDAD Glucagon 1 mg 03/29/24 07:25 Glucagon For Inj 1 Mg Vial IM PRN PRN Hypoglycemia Protocol Glucose 15 gm 03/29/24 07:25 Glucose Oral Gel 15 Gm Of Glucse In 37.5 Gm Tube PO PRN PRN Hypoglycemia Protocol Dextrose 1,000 mls @ 100 mls/hr 03/29/24 07:25 Dextrose 5% 1,000 Ml IVPB PRN PRN Hypoglycemia Protocol Loperamide HCl 2 mg 04/13/24 14:11 04/14/24 20:39 Loperamide Hcl 2 Mg Capsule PO 2 mg PRN PRN Administration Diarrhea Losartan Potassium 12.5 mg 04/07/24 09:00 04/09/24 08:43 Losartan Potassium 12.5 Mg Tablet PO 12.5 mg DAILY CARIDAD Administration Melatonin 10 mg 04/13/24 21:00 04/14/24 20:40 Melatonin 5 Mg Tablet PO 10 mg HS CARIDAD Administration Metoprolol Tartrate 12.5 mg 04/04/24 21:00 04/14/24 20:39 Metoprolol Tartrate 12.5 Mg Tablet PO 12.5 mg Q12HR CARIDAD Administration Midodrine 10 mg 04/12/24 13:00 04/14/24 16:26 Midodrine Hcl 10 Mg Tablet PO 10 mg TID CARIDAD Administration Midodrine 5 mg 04/12/24 13:00 04/14/24 16:25 Midodrine Hcl 2.5 Mg Tablet PO 5 mg TID CARIDAD Administration Multivitamins Therapeutic 1 tablet 04/14/24 09:00 04/14/24 08:38 Multivitamins Therapeutic Tab (*Bkc) PO 1 tablet DAILY CARIDAD Administration Nortriptyline HCl 25 mg 04/14/24 21:00 04/14/24 20:40 Nortriptyline Hcl 25 Mg Capsule PO 25 mg HS CARIDAD Administration Ondansetron HCl 4 mg 03/29/24 00:21 04/05/24 12:30 Ondansetron Inj 4 Mg/2 Ml Vial IV PUSH 4 mg Q4H PRN Administration Nausea Ondansetron HCl 8 mg 04/05/24 12:41 04/06/24 08:52 Ondansetron Hcl Odt 4 Mg Tablet SUBLINGUAL 8 mg Q8H PRN Administration nausea and vomiting Pantoprazole Sodium 40 mg 03/29/24 09:00 04/14/24 08:38 Pantoprazole 40 Mg Tablet PO 40 mg QAM CARIDAD Administration Potassium Chloride 40 meq 03/29/24 09:00 04/14/24 09:30 Potassium Chloride 20 Meq Er Tablet PO 40 meq DAILY CARIDAD Administration Torsemide 100 mg 03/29/24 09:00 04/01/24 09:27 Torsemide 20 Mg Tablet PO 100 mg QAM CARIDAD Administration Vitamin D 5,000 units 04/11/24 13:10 04/14/24 08:38 Cholecalciferol 5,000 Units Tablet PO 5,000 units DAILY CARIDAD Administration Radiology Results: ITS Impressions Abdomen/Pelvis CT 03/28/24 21:54 IMPRESSION: No acute intra-abdominal pathology. Innumerable nonacute findings, as detailed above. Head CT 03/29/24 14:57 IMPRESSION: 1. 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 2. Stable moderate nonspecific cerebral white matter disease, which likely represents chronic small vessel ischemic disease. Cervical Spine CT 03/29/24 15:03 IMPRESSION: 1. No fracture 2. Severe cervical spondylosis. Thoracic/Lumbar Spine CT 03/29/24 15:07 IMPRESSION: 1. No fracture. 2. Moderate thoracic and lumbar spondylosis. Chest X-Ray 04/06/24 08:02 Impression: Central congestive change and possible minimal bibasilar interstitial edema. Lexiscan Stress Test 04/07/24 12:19 IMPRESSION: 1. Normal myocardial perfusion at rest and during stress. 2. Left ventricular ejection fraction measuring 49%. Labs Labs: Laboratory Results - last 24 hr 04/06/24 04:40 Influenza Type A Ab 1:32 titer Influenza Type B Ab 1:8 Quality VTE Prophylaxis VTE prophylaxis: pharmacologic ordered
[2024-04-15] MEDS: CALCIUM ACETATE 667 MG TABLET 2668 MG PO (08:24)
[2024-04-15] MEDS: MIDODRINE HCL 2.5 MG TABLET 5 MG PO ×2 (08:24→12:37)
[2024-04-15] MEDS: GABAPENTIN 300 MG CAPSULE PO ×2 (08:24→12:37)
[2024-04-15] MEDS: METOPROLOL TARTRATE 12.5 MG TABLET PO (08:24)
[2024-04-15] MEDS: MIDODRINE HCL 10 MG TABLET PO ×2 (08:24→12:37)
[2024-04-15] MEDS: EMPAGLIFLOZIN 10 MG TABLET PO (08:24)
[2024-04-15] MEDS: buPROPion HCL XL (24 HR) 150 MG TABCR PO (08:24)
[2024-04-15] MEDS: POTASSIUM CHLORIDE 20 MEQ ER TABLET 40 MEQ PO (08:25)
[2024-04-15] MEDS: ESCITALOPRAM OXALATE 10 MG TABLET PO (08:25)
[2024-04-15] MEDS: ENOXAPARIN 30 MG/0.3 ML SYRINGE SUB-Q (08:25)
[2024-04-15] MEDS: CHOLECALCIFEROL 5,000 UNITS TABLET 5000 UNITS PO (08:25)
[2024-04-15] MEDS: busPIRone HCL 10 MG TABLET PO ×2 (08:25→12:37)
[2024-04-15] MEDS: PANTOPRAZOLE 40 MG TABLET PO (08:25)
[2024-04-15] MEDS: CINACALCET 30 MG TABLET 90 MG PO (08:25)
[2024-04-15] MEDS: MULTIVITAMINS THERAPEUTIC TAB (*BKC) 1 TABLET PO (08:25)
[2024-04-15] MEDS: HYDROcodone/acetaminophen (*CRX) 5-325 MG TABLET 1 TAB PO (11:43)
--- NOTE | 2024-04-15 12:09 | P.PNNP_ITS ---
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 * stable moderate nonspecific cerebral white matter disease, which likely represents chronic small vessel ischemic disease * just on metoprolol for now * continue PT/OT as tolerated (3) Orthostatic hypotension: Code(s): I95.1 - Orthostatic hypotension Status: Acute Assessment and Plan: * still present but better symptoms * as noted by vital signs on admission and recently * on midodrine therapy * evaluation to date noted: * TSH okay * cortisol reasonable * Echo results noted -- see #4 * neuropathy contributing (?) -- pulse does not rise very much when his blood pressure dropped suggesting this is playing a role * blood pressure medications, antidepressants and empagliflozin are on the list of drugs that exacerbate orthostatic hypotension * holding the losartan and torsemide for now * continuing the metoprolol and midodrine * Neurology recommendations noted (4) Cardiomyopathy: Code(s): I42.9 - Cardiomyopathy, unspecified Status: Acute Assessment and Plan: * Echo results (on 04/05) noted: * left ventricular systolic function is severely globally reduced, estimated at 15-20% * left ventricular diastolic function is grade I diastolic dysfunction * mitral valve has moderately calcified annulus * mild mitral valve regurgitation * this is a significant change from last Echo in September 2023. * HOWEVER, stress test was negative and reports an EF of 49% * on metoprolol (5) Fluid overload: Qualifiers: Hypervolemia type: unspecified Qualified Code(s): E87.70 - Fluid overload, unspecified Code(s): E87.70 - Fluid overload, unspecified Status: Acute Assessment and Plan: * stable if not improved with dialysis therapy * diuretics on hold * follow volume status (6) Anemia: Code(s): D64.9 - Anemia, unspecified Status: Acute Assessment and Plan: * hemoglobin is still supratherapeutic for ESRD * Epogen on hold * follow trend of H/H (7) Generalized weakness: Code(s): R53.1 - Weakness Status: Acute Assessment and Plan: * suspect related to recent hospitalization/deconditioning in association with prior influenza infection and orthostatic hypotension * PT/OT as tolerated (8) Peripheral neuropathy: Code(s): G62.9 - Polyneuropathy, unspecified Status: Chronic Assessment and Plan: * known diagnosis * etiology not clear * b12, TSH, and folate okay Will continue to follow. L Subjective Date/time seen: 04/15/24 12:09 Interval history: Follow-up for end stage renal disease on peritoneal dialysis. Still with orthostatic vital signs by his symptoms with regard to lightheadedness & dizziness appear minimal at this time with interventions/therapy to date; tolerated peritoneal dialysis overnight without any issues or problems; no apparent distress noted when seen. Exam 2 Narrative: General: WD/WN male in NAD Heart: normal S1 and S2; no rub Lungs: clear anteriorly Abdomen: soft, nontender, nondistended, positive bowel sounds Extremities: no cyanosis or clubbing; minimal edema Skin: warm and dry Objective Data Vital Signs Vital Signs: Vital Signs Temp Pulse Resp BP Pulse Ox O2 Del Method 04/15/24 10:57 Room Air 04/15/24 08:24 95 04/15/24 06:44 98.6 F 95 16 125/88 98 04/15/24 04:00 73 04/15/24 00:00 74 04/14/24 21:07 93 117/74 04/14/24 20:57 87 120/83 04/14/24 20:54 74 131/89 04/14/24 20:54 97.6 F 74 16 131/89 97 04/14/24 20:39 83 04/14/24 20:00 85 04/14/24 20:00 Room Air 04/14/24 16:00 79 Intake/Output Intake/Output: Intake & Output 04/12/24 04/13/24 04/14/24 04/15/24 23:59 23:59 23:59 23:59 Intake Total 3711 1820 680 300 Balance 1799 2632 680 300 Meds/Results Medications: Active Medications Generic Name Dose Route Start Last Admin Trade Name Freq PRN Reason Stop Dose Admin Acetaminophen 650 mg 03/29/24 07:25 04/14/24 09:30 Acetaminophen 325 Mg Tablet PO 650 mg Q4H PRN Administration Mild Pain (1-3) or Fever Hydrocodone Bitart/Acetaminophen 1 tab 03/30/24 12:41 04/15/24 11:43 Hydrocodone/Acetaminophen (*Crx) 5-325 Mg Tablet PO 1 tab Q8H PRN Administration Pain Rated 6 or Greater Bupropion HCl 150 mg 04/14/24 09:00 04/15/24 08:24 Bupropion Hcl Xl (24 Hr) 150 Mg Tabcr PO 150 mg QAM CARIDAD Administration Buspirone HCl 10 mg 03/29/24 09:00 04/15/24 12:37 Buspirone Hcl 10 Mg Tablet PO 10 mg TID CARIDAD Administration Calcium Acetate 2,668 mg 03/29/24 08:00 04/15/24 12:38 Calcium Acetate 667 Mg Tablet PO Not Given TIDWM [facility] Calcium Carbonate 200 mg 03/29/24 07:14 Calcium Carbonate (Tums) 500 Mg (200 Mg Elemental) PO HS PRN Indigestion Cinacalcet 90 mg 03/29/24 09:00 04/15/24 08:25 Cinacalcet 30 Mg Tablet PO 90 mg DAILY CARIDAD Administration Dextrose 12.5 gm 03/29/24 07:25 Dextrose 50% 25 Gm/50 Ml Syringe IV PUSH PRN PRN Hypoglycemia Protocol Empagliflozin 10 mg 04/07/24 09:00 04/15/24 08:24 Empagliflozin 10 Mg Tablet PO 10 mg DAILY CARIDAD Administration Enoxaparin Sodium 30 mg 03/30/24 09:00 04/15/24 08:25 Enoxaparin 30 Mg/0.3 Ml Syringe SUB-Q 30 mg DAILY CARIDAD Administration Escitalopram Oxalate 10 mg 03/29/24 09:00 04/15/24 08:25 Escitalopram Oxalate 10 Mg Tablet PO 10 mg DAILY CARIDAD Administration Gabapentin 300 mg 03/29/24 09:00 04/15/24 12:37 Gabapentin 300 Mg Capsule PO 300 mg TID CARIDAD Administration Gentamicin Sulfate 1 applic 04/10/24 18:00 04/15/24 11:48 Gentamicin Sulfate 0.1% Oint 15 Gm Tube TOPICAL Not Given DAILY@1800 CARIDAD Glucagon 1 mg 03/29/24 07:25 Glucagon For Inj 1 Mg Vial IM PRN PRN Hypoglycemia Protocol Glucose 15 gm 03/29/24 07:25 Glucose Oral Gel 15 Gm Of Glucse In 37.5 Gm Tube PO PRN PRN Hypoglycemia Protocol Dextrose 1,000 mls @ 100 mls/hr 03/29/24 07:25 Dextrose 5% 1,000 Ml IVPB PRN PRN Hypoglycemia Protocol Loperamide HCl 2 mg 04/13/24 14:11 04/14/24 20:39 Loperamide Hcl 2 Mg Capsule PO 2 mg PRN PRN Administration Diarrhea Losartan Potassium 12.5 mg 04/07/24 09:00 04/09/24 08:43 Losartan Potassium 12.5 Mg Tablet PO 12.5 mg DAILY CARIDAD Administration Melatonin 10 mg 04/13/24 21:00 04/14/24 20:40 Melatonin 5 Mg Tablet PO 10 mg HS CARIDAD Administration Metoprolol Tartrate 12.5 mg 04/04/24 21:00 04/15/24 08:24 Metoprolol Tartrate 12.5 Mg Tablet PO 12.5 mg Q12HR CARIDAD Administration Midodrine 10 mg 04/12/24 13:00 04/15/24 12:37 Midodrine Hcl 10 Mg Tablet PO 10 mg TID CARIDAD Administration Midodrine 5 mg 04/12/24 13:00 04/15/24 12:37 Midodrine Hcl 2.5 Mg Tablet PO 5 mg TID CARIDAD Administration Multivitamins Therapeutic 1 tablet 04/14/24 09:00 04/15/24 08:25 Multivitamins Therapeutic Tab (*Bkc) PO 1 tablet DAILY CARIDAD Administration Nortriptyline HCl 25 mg 04/14/24 21:00 04/14/24 20:40 Nortriptyline Hcl 25 Mg Capsule PO 25 mg HS CARIDAD Administration Ondansetron HCl 4 mg 03/29/24 00:21 04/05/24 12:30 Ondansetron Inj 4 Mg/2 Ml Vial IV PUSH 4 mg Q4H PRN Administration Nausea Ondansetron HCl 8 mg 04/05/24 12:41 04/06/24 08:52 Ondansetron Hcl Odt 4 Mg Tablet SUBLINGUAL 8 mg Q8H PRN Administration nausea and vomiting Pantoprazole Sodium 40 mg 03/29/24 09:00 04/15/24 08:25 Pantoprazole 40 Mg Tablet PO 40 mg QAM CARIDAD Administration Potassium Chloride 40 meq 03/29/24 09:00 04/15/24 08:25 Potassium Chloride 20 Meq Er Tablet PO 40 meq DAILY CARIDAD Administration Torsemide 100 mg 03/29/24 09:00 04/01/24 09:27 Torsemide 20 Mg Tablet PO 100 mg QAM CARIDAD Administration Vitamin D 5,000 units 04/11/24 13:10 04/15/24 08:25 Cholecalciferol 5,000 Units Tablet PO 5,000 units DAILY CARIDAD Administration Radiology Results: ITS Impressions Abdomen/Pelvis CT 03/28/24 21:54 IMPRESSION: No acute intra-abdominal pathology. Innumerable nonacute findings, as detailed above. Head CT 03/29/24 14:57 IMPRESSION: 1. 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 2. Stable moderate nonspecific cerebral white matter disease, which likely represents chronic small vessel ischemic disease. Cervical Spine CT 03/29/24 15:03 IMPRESSION: 1. No fracture 2. Severe cervical spondylosis. Thoracic/Lumbar Spine CT 03/29/24 15:07 IMPRESSION: 1. No fracture. 2. Moderate thoracic and lumbar spondylosis. Chest X-Ray 04/06/24 08:02 Impression: Central congestive change and possible minimal bibasilar interstitial edema. Lexiscan Stress Test 04/07/24 12:19 IMPRESSION: 1. Normal myocardial perfusion at rest and during stress. 2. Left ventricular ejection fraction measuring 49%. Labs Labs: Laboratory Tests 04/13/24 06:07 04/13/24 06:07
--- NOTE | 2024-04-15 14:25 | P.DS_ITS ---
DS: Admitting Diagnosis Discharge Date 04/15/2023 Admitting Diagnosis Orthostatic hypertension DS: Discharge Diagnosis Discharge Diagnosis (1) Orthostatic hypotension: Code(s): I95.1 - Orthostatic hypotension Status: Acute Assessment and Plan: * continue midodrine and metoprolol * continue holding losartan and torsemide * neurology consulted for further assistance * losartan placed on hold 04/11 * Give midodrine 30 minutes before checking orthostatic blood pressures per Neurology recommendation * Vitamin D level was low on 08/12/23, will recheck * Will check Vitamin B12 today * cortisol stimulation test was normal. * Patient needs to wear abdominal binder and bright hose when getting out of bed. 04/12 * Patient is still orthostatic after receiving midodrine today he minutes prior to checking orthostatic blood pressures. * We will increase his midodrine to 15 mg t.i.d. * Continue abdominal binder and bright hose * Neurology following * vitamin D level pending * Patient is on Nortriptyline which can cause orthostatic hypotension. He started this medication about a year ago and has been tolerating it without issue. We could consider decreasing or switching him to a different depression medication to see if this helps improve his orthostatic hypotension. 04/13 * Patient is still orthostatic today but is not as symptomatic * Vitamin D level 18.9, will start Vitamin D supplement * Vitamin B12 743 * Will start weaning Nortriptyline * continue bright hose * 04/14 patient still with positive orthostatics signs, he symptomatic today Nortriptyline changed to Wellbutrin (2) End-stage renal disease on peritoneal dialysis: Code(s): N18.6 - End stage renal disease; Z99.2 - Dependence on renal dialysis Status: Acute Assessment and Plan: * continue nightly peritoneal dialysis * nephrology following * Daily labs (3) Multiple falls: Code(s): R29.6 - Repeated falls Status: Acute Assessment and Plan: * continue PT and OT * plan is to go home with [facility] when medically stable (4) Cardiomyopathy: Code(s): I42.9 - Cardiomyopathy, unspecified Status: Acute Assessment and Plan: Stable * echocardiogram showing severely reduced LV systolic function with an estimated EF of 15-20%, grade 1 diastolic dysfunction * continue metoprolol * losartan and torsemide on hold due to orthostatic hypotension * Continue to hold losartan and torsemide (5) Fluid overload: Qualifiers: Hypervolemia type: unspecified Qualified Code(s): E87.70 - Fluid overload, unspecified Code(s): E87.70 - Fluid overload, unspecified Status: Acute Assessment and Plan: * improved with peritoneal dialysis (6) Anemia of chronic disease: Code(s): D63.8 - Anemia in other chronic diseases classified elsewhere Status: Acute Assessment and Plan: Stable * likely secondary to to be end-stage renal disease * No signs of acute bleeding * Daily CBCs (7) Generalized weakness: Code(s): R53.1 - Weakness Status: Acute Assessment and Plan: * continue PT and OT * plan for home health when stable for discharge (8) Peripheral neuropathy: Code(s): G62.9 - Polyneuropathy, unspecified Status: Chronic Assessment and Plan: * 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 * Heavy metals testing pending * B12, folate, and TSH are WNL DS: Summary Hospital Course Reason for hospitalization: Orthostatic hypotension Hospital Course: 49 year old male with a significant past medical history end-stage renal on peritoneal dialysis hypertension, polyneuropathy who presented to the hospital initially on 03/29/2024 with complaints of nausea /vomiting, fluid overload, and weakness. Patient had an echocardiogram done on 04/05/24 which shown severely reduced left ventricular systolic function with an estimated EF of 15-20%, grade 1 diastolic dysfunction, moderate mitral valve calcification and mild regurgitation He was found to have orthostatic hypotension that was not coming from a cardiac origin. He was placed on midodrine and shown some improvement. Patient had extended hospital course due to severe orthostatic hypotension likely due to his severe heart failure. Patient was seen by Nephrology with management of peritoneal dialysis. He was seen by Physical therapy for limited mobility and repeat falls with recommendations for home health will after discharge. For patient's orthostatic hypotension losartan and torsemide were held. He was started on max dose midodrine and metoprolol. Patient was encouraged to wear abdominal binder, and Bright hose to help limit orthostatic hypotension. Patient is on Nortriptyline which can cause orthostatic hypotension. He started this medication about a year ago and has been tolerating it without issue. Patient was weaned off nortriptyline and started on Wellbutrin. On day of discharge patient still had orthostatic hypotension but was asymptomatic. He has been recommended to follow-up outpatient with Cardiology in 1 week to discuss if losartan and torsemide should be restarted. Patient family agreed with discharge plan. Status at Discharge Functional status at discharge: independent ambulation Time Spent with Patient Time attestation: Total time spent providing and/or coordinating discharge services: Time spent: Greater than 30 minutes Exam Narrative: General: [id number], appears stated age. HEENT: normocephalic, atraumatic. Mucous membranes moist. EOMI, PERRLA, bilateral sclera anicteric, no conjunctival injection. Neck supple without JVD, lymphadenopathy, or bruit. Respiratory: clear to ascultation bilaterally. No rales/rhonic/wheezes. Cardiovascular: Regular rate and rhythm, normal S1-S2 upon ascultation. No murmurs, rubs, or clicks. PMI is nondisplaced, capillary refill less than 3 second. Abdomen: Soft, round, no pulsatile masses, nondistended and nontender. No rebound, no guarding. No CVA tenderness, no hepatosplenomegaly. Bowel sounds present to all four quadrants. No high pitch or tinkling sounds, resonant to percussion. PD cath Extremities: No cyanosis, clubbing, or edema present. Pulses are palpable 2/2. Active ROM to all four extremities. Neuro: Alert and orientated x 4. PERRLA. Cranial nerves 2-12 intact without focal deficit. Skin: Warm, dry, and intact, without rash, erythema, or lesion. Psych: pleasant, cooperative, normal speech, normal affect, no hallucinations, no dysarthia Discharge Plan Discharge Consulting providers: Gloria Dennis; Quang Johnson; Malgorzata Izaguirre Alissa L.; Aziza Cruz; Kavita Nogueira; Najma Mcguire; Leoncio Grullon; Xavier Marcus; Bibiana Mcguire; Susan Trinidad; Dilia Cheney; Darby Chandler; Luis Jameson V.; Darin Henderson; Caio Ro Discharging Clinician: Alexa Ta Anticipated Discharge Date/Time: 04/15/24 14:27 Patient Disposition: Home Health Service Activity: june shower Diet: renal Discharge Instructions: Per Photographer Aerial Patient has been accepted to have [facility] for PT/OT [phone] RN please fax completed discharge instructions to [phone] New medications prescribed: Take Wellbutrin and Nortriptyline together as instructed below: * Start taking Wellbutrin 150mg 04/14 * STOP your nortriptyline 50 mg tabs * Decrease your nortriptyline to 25 mg for the next 3 days 03/26-04/18 * Days 4-7 drop nortriptyline to 10 mg until finished with prescription. 04/19- 04/24 * Talk with your primary care doctor about this change in medication due to your orthostatic hypotension. they can increase the Wellbutrin at anytime if needed. Midodrine You are activity as tolerated Monitor blood pressures Avoid social areas, you wear a mask when in social settings Encouraged to continue with yearly vaccinations Return to the emergency department if he developed sudden shortness of breath, chest pain, nausea, vomiting, upset stomach or intractable diarrhea Return to the emergency department if you develop fever greater than 101.5 Follow-up with: Your primary care physician within 1-2 weeks for post hospitalization check up Thank you for [facility] for your healthcare needs Patient Instructions: Antibiotic Form, Heart Failure (GEN) Patient Language: Citizen Of [place] Stand Alone Forms: General Discharge Information Follow-up/Referrals: Quang Johnson DO [Physician] - 1 Week (Follow-up in 1 week, your losartan and torsemide are currently being held until follow-up with Cardiology due to orthostatic hypotension) Gloria Dennis MD [Physician] - Call for Appointment Angella Han APRN [Primary Care Provider] - 2 Weeks Discharge Medications: New bupropion HCl [Wellbutrin XL] 150 mg tablet extended release 24 hr 150 mg PO QAM Qty: 30 0RF nortriptyline 25 mg capsule 25 mg PO DAILY Qty: 3 0RF nortriptyline 10 mg capsule 10 mg PO DAILY Qty: 4 0RF midodrine 10 mg Tablet 15 mg PO TID 30 Days Qty: 135 0RF Continued gentamicin 0.1 % cream 1 applic topical TID PRN (Reason: DIALYSIS CATH.) calcium carbonate [Tums] 200 mg calcium (500 mg) tablet,chewable 200 mg PO HS PRN (Reason: Indigestion) omeprazole 20 mg capsule,delayed release(DR/EC) 20 mg PO DAILY Qty: 90 1RF diphenoxylate-atropine 2.5-0.025 mg tablet 1 tablet PO QID PRN (Reason: diarrhea) Qty: 60 0RF multivitamin Tablet 1 tablet PO DAILY Auryxia 210 mg iron Tablet 210 mg PO TIDWM Rx Instructions: administer with a meal melatonin 10 mg capsule 10 mg PO HS albuterol sulfate 90 mcg/actuation HFA aerosol inhaler 2 inh INHALATION QID PRN (Reason: shortness of breath or wheezing) calcium acetate(phosphat bind) 667 mg capsule 2,668 mg PO TIDWM ondansetron 4 mg tablet,disintegrating 8 mg translingual Q8H PRN (Reason: nausea and vomiting) cinacalcet 30 mg tablet 90 mg PO DAILY potassium chloride [K-Tab] 20 mEq Tablet Extended Release 40 meq PO DAILY Qty: 15 0RF escitalopram oxalate 10 mg tablet 10 mg PO DAILY hydrocodone-acetaminophen 5-325 mg tablet 1 tablet PO Q8H PRN (Reason: Pain Rated 4-10) Qty: 90 0RF Discontinued torsemide 100 mg tablet 100 mg PO DAILY nortriptyline 50 mg capsule 50 mg PO HS Auryxia 210 mg iron tablet 210 mg PO TIDWM Rx Instructions: administer with a meal labetalol 200 mg tablet 100 mg PO BID No Action buspirone 10 mg tablet See Rx Instructions .ROUTE .COMPLEX Qty: 90 0RF Dose Instruction: TAKE 1 TABLET BY MOUTH THREE TIMES DAILY Rx Instructions: TAKE 1 TABLET BY MOUTH THREE TIMES DAILY gabapentin 300 mg capsule See Rx Instructions .ROUTE .COMPLEX Qty: 270 0RF Dose Instruction: TAKE 1 CAPSULE BY MOUTH THREE TIMES DAILY Rx Instructions: TAKE 1 CAPSULE BY MOUTH THREE TIMES DAILY Other Ambulatory Orders: OT Outpatient Eval and Treat (ONCE) Timeframe: 2 Weeks Location: Determined by Patient Ordered By: Alexa Ta OT Outpatient Eval and Treat (ONCE) Timeframe: 20240429 Location: Determined by Patient Ordered By: Alexa Ta PT Outpatient Eval and Treat (ONCE) Timeframe: 20240429 Location: Determined by Patient Ordered By: Alexa Ta Date of admission: 03/29/24 07:28 Primary Care Provider: Angella Han Admitting Provider: Crissy Sarmiento Attending physician on admission: Alexa Ta Condition: Improved Quality VTE Prophylaxis VTE prophylaxis: pharmacologic ordered Hospitalist MIPS Heart Failure (Exclusion) Patient has history of Heart Transplant or Left Ventricular Assistive Device?: Yes IF YES, STOP HERE Heart Failure (Qualifier) Patient has current or prior documentation of LVEF less than or equal to 40%, or mod/servere depressed LVSF?: Yes IF NO, STOP HERE If Yes, Heart Failure (Qualifier) Patient was prescribed or already taking an Angiotensin-Converting Enzyme (DANO) Inhibitor, or Antiotensin Receptor Ale (ARB): Yes Patient was prescribed or already taking bisoprolol, carvedilol, or sustained release metoprolol succinate: Yes
== END 2024-04-15 16:05 | disposition home health service (06) | DRG 640 ==
LOC: ANHED 21:09 → ANH2MED 03-29 01:09
PROVIDERS: Internal Medicine; Internal Medicine Nephrology; Nurse Practitioner; Nurse Practitioner Acute Care; Nurse Practitioner Family; Registered Nurse; Student in an Organized Health Care Education/Training Program; Admitting Provider Internal Medicine; Emergency Provider Physician Assistant; PCP Nurse Practitioner Family; Visit Provider Nurse Practitioner Gerontology
DX: E87.79 Other fluid overload (principal); E43 Unspecified severe protein-calorie malnutrition; N18.6 End stage renal disease; I13.2 Hypertensive heart and chronic kidney disease with heart failure and with stage 5 chronic kidney disease, or end stage renal disease; I42.8 Other cardiomyopathies; Z91.158 Patient's noncompliance with renal dialysis for other reason; I95.1 Orthostatic hypotension; E87.6 Hypokalemia; G62.9 Polyneuropathy, unspecified; D63.1 Anemia in chronic kidney disease; I73.9 Peripheral vascular disease, unspecified; I50.9 Heart failure, unspecified; R00.0 Tachycardia, unspecified; R29.6 Repeated falls; Z99.2 Dependence on renal dialysis; Z87.891 Personal history of nicotine dependence; Z90.49 Acquired absence of other specified parts of digestive tract; Z68.33 Body mass index [BMI] 33.0-33.9, adult
CPT/HCPCS: 36415; 70450; 71045; 71046; 72125; 72128; 72131; 74176; 78452; 80053; 82175; 82306; 82533; 82948; 83655; 83735; 83825; 83880; 84100; 84443; 84484; 85025; 85027; 85610; 85730; 86710; 87340; 87502; 87637; 87641; 89051; 90945; 93005; 93017; 93306; 96361; 96365; 96375; 96376; 97110; 97161; 97165; 97530; 97535; 99285; A9270; A9502; G0378; J1650; J2405; J2785; J3475; J7040; J7050

== ENCOUNTER 2024-05-11 11:16 | Outpatient (CLI) | payer MEDICARE, MEDICAID, SELFPAY ==
--- NOTE | ~2024-05-11 | XR_ITS ---
Supine and upright views of the abdomen Clinical history: End-stage renal disease comparison: 03/18/2024 Findings: Bowel gas pattern is nonspecific. No evidence for obstruction or free air. No abnormal mass lesion or calcification is seen. Peritoneal dialysis catheter present. Osseous structures are intact . Impression: No significant abnormality is seen. Peritoneal dialysis catheter. Reviewed, dictated and finalized at [facility]. Impression: No significant abnormality is seen. Peritoneal dialysis catheter.
== END 2024-05-11 11:17 | disposition home or self-care (01) ==
PROVIDERS: PCP Nurse Practitioner Family; Visit Provider Internal Medicine Nephrology
DX: N18.6 End stage renal disease (principal); Z99.2 Dependence on renal dialysis
CPT/HCPCS: 74018

== ENCOUNTER 2024-07-25 13:40 | Outpatient (CLI) | payer MEDICARE, MEDICAID, SELFPAY ==
--- NOTE | ~2024-07-25 | CT_ITS ---
CT Scan of the Chest without Contrast: Clinical Indication: Nonspecific abnormal finding of lung field Technique: Contiguous sections were acquired throughout the chest without intravenous contrast. Dose reduction technique was used on this scan by utilizing automated exposure control and iterative recon struction technique. The dose-length product (DLP) was 513.28 mGy-cm. COMPARISON: 09/27/2023 Findings: Numerous shotty mediastinal lymph nodes are present, which may be minimally increased from prior exam , not frankly enlarged by size criteria. The mediastinal soft tissues appear normal. There is no evidence of pleural or pericardial effusion. Stable 6 mm right lower lobe pulmonary nodule (axial image 68). Stable additional 4 mm right lower lo be nodule (axial image 72). Images through the upper abdomen reveal moderate upper abdominal ascites. Impression: Stable subcentimeter right lower lobe pulmonary nodules. Numerous shotty mediastinal lymph nodes which may minimally increased from prior exam, but are not fr ankly enlarged by size criteria. Minimal bibasilar atelectatic change. Reviewed, dictated and finalized at location . Impression: Stable subcentimeter right lower lobe pulmonary nodules. Numerous shotty mediastinal lymph nodes which may minimally increased from prio r exam, but are not frankly enlarged by size criteria. Minimal bibasilar atelectatic change.
--- OUTSIDE RECORDS SUMMARY | 2024-07-25 13:50 | XMS_ITS ---
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 Name Role Phone Janet Moss RN Unavailable [phone] Milo Morrell MD Primary Care Provide r Quang Johnson DO Unavailable [phone] Transplant Episode Kidney Candidate [facility] ([place], [place]) [facility] Center waitlisted on 08/24/2023 Marked as Inactive on 08/24/2023 Reason: 04 - Insurance Issues Kidney CoordinatorJanet Moss RN Fax: N/A Email: N/A Scores Score Value Updated Exceptions/Reas ons CPRA Not available EPTS (Calc) 31 07/25/2024 [place] Organ 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 Care Team Name Role Phone Fax Email Janet Moss RN Kidney Coordinator [phone] N/A N/A Xavier Marcus MD Referring Physician [phone] N/A Janet Muse [employer] Specialist [phone] N/A N/A Events Pre-Transplant Referred: 10/05/2022 Evaluation began: 02/04/2023 Committee: 08/23/2023 UNOS qualified: 11/27/2021 Center waitlisted: 08/24/2023 Dialysis History Dialysis History Start End Type Comments Center 11/27/2021 Peritoneal [facility] D[facility] Information Center Phone Fax Address [facility] [phone] [address] [facility] [address] [facility] [address]
--- OUTSIDE RECORDS SUMMARY | 2024-07-25 13:50 | XMS_ITS | Referral Summary ---
Author Organization [facility] Address [address] [place] [address] Care Team Providers Care Tower Dragline Operator Name Role Phone Janet Moss RN Unavailable [phone] Milo Morrell MD Primary Care Provide r Quang Johnson DO Unavailable [phone] Encounters Date Type Department Care Team Description 05/03/2024 Documentation [facility] Transplant Kidney 45[address] [facility] 3401 [address] [id number] [place] [address] Tasha Chapman 05/03/2024 Telephone [facility] Transplant Kidney 45[address] [facility] [address] [place] [address] Janet Moss, RN 05/03/2024 Telephone [facility] Transplant Kidney 45[address] [facility] [address] [address] [place] [address] Janet Moss, RN 05/02/2024 Telephone [facility] Transplant Kidney 45[address] [facility] [address] [address] [place] [address] Janet Moss, RN 05/02/2024 Telephone [facility] Transplant Kidney 45[address] [facility] [address] [phone] [place] [address] Janet Moss, RN 05/01/2024 Telephone 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 Gender Identity Not on file Sexual Orientation Not on file Last Filed Vital Signs Vital Sign Reading Time Taken Comments Blood Pressure 163/115 04/12/2023 8:12 AM VOLLEYBALL ASSEMBLER Pulse 77 04/12/2023 8:12 AM VOLLEYBALL ASSEMBLER Temperature 36.7 C (98.1 F) 04/05/2023 1:04 PM VOLLEYBALL ASSEMBLER Respiratory Rate - - Oxygen Saturation - - Inhaled Oxygen Concentration - - Weight 112.5 kg (248 lb 0.3 oz) 04/12/2023 8:12 AM VOLLEYBALL ASSEMBLER Height 175.3 cm (5' 9) 04/05/2023 1:04 PM VOLLEYBALL ASSEMBLER Body Mass Index 36.63 04/05/2023 1:04 PM VOLLEYBALL ASSEMBLER Plan of Treatment Not on file Procedures Procedure Name Priority Date/Time Associated Diagnosis Comments HEPATITIS C ANTIBODY Routine 04/05/2023 11:27 AM VOLLEYBALL ASSEMBLER End stage renal disease (HCC) PSA SCREEN Routine 04/05/2023 11:27 AM VOLLEYBALL ASSEMBLER End stage renal disease (HCC) from Last 3 Months or Most Recently Relevant to Health Maintenance Results * PSA screen (04/05/2023 11:27 AM VOLLEYBALL ASSEMBLER) PSA-Total 0.28 <=3.90 ng/mL [facility] Comment: Interpretive Data AGE SEX REFERENCE INTERVAL 0 minutes-150 years Female None 0 minutes-49 years Male None 50-59 years Male 0-3.90 60-69 years Male 0-5.40 70-79 years Male 0-6.20 80-150 years Male 0-6.20 The Yadira PSA Total assay procedure was used. Results from different manufacturers or methods may not be comparable. Serial testing should be performed using the same method. Current interpretive data last revised 21. Blood 04/05/2023 11:2 7 AM VOLLEYBALL ASSEMBLER 04/05/2023 12:10 PM VOLLEYBALL ASSEMBLER Narrative [facility] - 04/05/2023 12:57 PM VOLLEYBALL ASSEMBLER This lab is being obtained as part of a Kidney transplant evaluation, is time sensitive, and should only be drawn during the evaluation visit at [address] Lab[address] Abena Brown MD LAB BLOOD ORDERABL ES Final Result Performing Organization Address [facility] de Phone Number [facility] Department [place] [address] * Hepatitis C antibody Blood (04/05/2023 11:27 AM VOLLEYBALL ASSEMBLER) Hep C Ab Nonreactive Nonreactive [facility] Comment:Antibodies to HCV no t detected. Does NOT exclude the possibility of recent exposure to HCV. Current interpretive data was last revised on 21 Blood 04/05/2023 11:2 7 AM VOLLEYBALL ASSEMBLER 04/05/2023 12:09 PM VOLLEYBALL ASSEMBLER Narrative [facility] - 04/05/2023 1:03 PM VOLLEYBALL ASSEMBLER This lab is being obtained as part of a Kidney transplant evaluation, is time sensitive, and should only be drawn during the evaluation visit at [address] Lab[address] Abena Brown MD LAB MICROBIOLOGY - GENERAL ORDERABLES Final Result Performing Organization Address [facility] de Phone Number [facility] Department [place] [address] from Last 3 Months or Most Recently Relevant to Health Maintenance Insurance MEDICARE IDPA MEDICARE MEDICARE IDPA Care Teams Tower Dragline Operator Relationship Specialty Start Date End Date Milo Morrell MD [address] [place] [address] PCP - General Emergency Medicine 03/26/23 Janet Moss, RN 4590 [facility] 3401 [place] [address] Electric Meter Tester [employer] 10/06/22 Quang Johnson DO [address] [place] [address] Referring Physician Internal Medicine 05/18/24
--- OUTSIDE RECORDS SUMMARY | 2024-07-25 13:50 | XMS_ITS ---
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 ; Lumbar radiculopathy M54.16 ; Carlson's neuroma of left foot G57.62 ; Carlson's neuroma of right foot G57.61 ; Onychogryphosis L60.2 ; Pain in right toe(s) M79.674 and Pain in left toe(s) M79.675 Assessments Encounter Date Diagnosis (ICD Code) Assessment Notes Treatment Notes Treatment Clinical Notes Section Notes 04/21/2024 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) 04/21/2024 Lumbar radiculopathy (ICD-10 - M54.16) 04/21/2024 Carlson's neuroma of left foot (ICD-10 - G57.62) 04/21/2024 Carlson's neuroma of right foot (ICD-10 - G57.61) 04/21/2024 Onychogryphosis (ICD-10 - L60.2) 04/21/2024 Pain in right toe(s) (ICD-10 - M79.674) 04/21/2024 Pain in left toe(s) (ICD-10 - M79.675) 04/21/2024 Other Plan Of Treatment Next Appt Details Follow Up: 3 Months, Reason: Procedure Notes * Category Sub-Category Detail Notes PALLIATIVE FOOT CARE: Nail debride (01926): Debr idement of at least six mycotic and/or hypertrophic nails performed:, utilizing manual and electric debridement the affected nails were reduced the nails in length and thickness with curettage of debris from nail margins performed as needed. Nail thickness reduced by:, 10% Progress Notes * Andrea TOMOB:1969 (54 yo M)Acc No.[id number]:04/21/2024 Progress Note Patient: Real CABRERA Provider: Gabrielle Marcum DPM :1970 A ge:54 Y S ex:Male Date:04/21/2024 Address:[address] [place], [place] [id number] Pcp:Milo Morrell MD Subjective: * Chief Complaints: * 1 . High Risk Foot care. * HPI: Ginny Santiago assisting with visit:: HPI/Rooming: Edwin cortes reason for visit:: 53 y/o male RTO for Routine foot care. Today the pt reports no acute issues with nails or calluses. * Medical History: Objective: * Vitals: * Examination: G eneral Examination: Constitutional / Appearance: N o acute distress , Well nourished, Appropriate personal hygiene. Mental status: C ooperative, Oriented to person, place and time, Mood and affect: normal, Judgement and intellect: normal with appropriate response to questions. Shoes today: X XXX. L ower Extremity VASCULAR: : Pulses: D P pulse diminished bilateral; PT pulse absent bilateral. Temperature gradient: d ecreased from proximal to distal bilateral. Pedal hair: s parse / absent bilateral. Venous insufficiency edema: i nsignificant bilateral. ? L ower Extremity DERM: : Skin: r elatively dry, thin, atrophic, no suspicious lesions, bilateral. Nails: N ail plates of:TA-D0gsestk relatively thickened, dystrophic, discolored, incurvated. . Hyperkeratotic lesions LEFT foot: n o significant hpk lesions noted. Hyperkeratotic lesions RIGHT foot: n o significant hpk lesions noted. L ower Extremity NEURO: : General sensation appears X XXX. Muscle tone d iminished bilateral. L ower Extremity MSK: : Foot type: B ilateral lower extremity exhibits. ? Assessment: * Assessment: 1. I diopathic progressive neuropathy - G60.3 (Primary) 2 . L umbar radiculopathy - M54.16 3 . M leann's neuroma of left foot - G57.62 4 .?Carlson's neuroma of right foot - G57.61 5 . O nychogryphosis - L60.2 & #160; 6 . P ain in right toe(s) - M79.674 7 . P ain in left toe(s) - M79.675 Plan: * Treatment: * Procedures: P ALLIATIVE FOOT CARE:: Nail debride (71157): D ebridement of at least six mycotic and/or hypertrophic nails performed:, utilizing manual and electric debridement the affected nails were reduced the nails in length and thickness with curettage of debris from nail margins performed as needed. Nail thickness reduced by:, 10%. * Procedure Codes: 1 1721 DEBRIDE NAIL, 6 OR MORE * Follow Up: 3 Months * Images: * Electronic signature of James Marcum DPM on 07/25/2024 at 01:49 PM CDT Sign off status: Pending * Provider: Gabrielle Marcum DPM Date: 0 04/21/2024 Generated for Zuleika dodd/Stacie/Bryan on: 0 07/25/2024 01:49 PM CDT History and Physical Notes * HPI (History of Present Illness) Category Sub-Category Detail Notes Category Not es Primary reason for visit: 53 y/o male RTO for Routine foot care. Today the pt reports no acute issues with nails or calluses. MA assisting with visit: HPI/Rooming: Gary Examination Category Sub-Category Detail Notes Category Not es General Examination Mental status: Cooperative, Oriented to person, place and time, Mood and affect: normal, Judgement and intellect: normal with appropriate response to questions Shoes today: XXXX Constitutional / Appearance: No acute di stress , Well nourished, Appropriate personal hygiene Lower Extremity VASCULAR: Venous insufficiency edema: insignificant bilateral Pulses: DP pulse diminished bilateral; PT pulse absent bilateral Temperature gradient: decreased from pro ximal to distal bilateral Pedal hair: sparse / absent bila teral Lower Extremity NEURO: General sensation appears XXXX Muscle tone diminished bilateral Lower Extremity MSK: Foot type: Bilateral lower extr emity exhibits Lower Extremity DERM: Skin: relatively dry, thin, atrophic, no suspicious lesions, bilateral Nails: Nail plates of: TA-T 9 appear relatively thickened, dystrophic, discolored, incurvated. Hyperkeratotic lesions LEFT foot: no sig nificant hpk lesions noted Hyperkeratotic lesions RIGHT foot: no si gnificant hpk lesions noted
--- OUTSIDE RECORDS SUMMARY | 2024-07-25 13:50 | XMS_ITS | Clinical Summary ---
Author Organization [facility] Address [address] [place] [address] Care Team Providers Care Front End Drupal Developer Name Role Phone Janet Moss RN Unavailable [phone] Milo Morrell MD Primary Care Provide r Quang Johnson DO Unavailable [phone] Allergies No known active allergies Medications albuterol [...] Diagnosed Date End stage renal disease 04/05/2023 Encounters Date Type Department Care Team Description 05/03/2024 Documentation [facility] Transplant Kidney [address] [address] [address] [address] [place] [address] Tasha Chapman 05/03/2024 Telephone [facility] Transplant Kidney [address] [address] [employer] [facility] [place] [address] Janet Moss, RN 05/03/2024 Telephone [facility] Transplant Kidney [address] [address] [employer] [address] [place] [address] Janet Moss, RN 05/02/2024 Telephone [facility] Transplant Kidney [address] [address] [place] [address] Janet Moss, RN 05/02/2024 Telephone [facility] Transplant Kidney [address] [address] [employer] [address] [place] [address] Janet Moss, RN 05/01/2024 Telephone [facility] Transplant Kidney 4590 [facility] [address] [place] [address] Siri Castillo from Last 3 Months Immunizations Immunization Administration Dates Next Due Hep [...] on file Legal Sex Male 9:46 AM TRIAGE REGISTERED NURSE Gender Identity Not on file Sexual Orientation Not on file Obstetrics History Last Filed Vital Signs Vital Sign Reading Time Taken Comments Blood Pressure 163/115 04/12/2023 8:12 AM TRIAGE REGISTERED NURSE Pulse 77 04/12/2023 8:12 AM TRIAGE REGISTERED NURSE Temperature 36.7 C (98.1 F) 04/05/2023 1:04 PM TRIAGE REGISTERED NURSE Respiratory Rate - - Oxygen Saturation - - Inhaled Oxygen Concentration - - Weight 112.5 kg (248 lb 0.3 oz) 04/12/2023 8:12 AM TRIAGE REGISTERED NURSE Height 175.3 cm (5' 9) 04/05/2023 1:04 PM TRIAGE REGISTERED NURSE Body Mass Index 36.63 04/05/2023 1:04 PM TRIAGE REGISTERED NURSE Plan of Treatment Health Maintenance Due Date Last Done Comments Colon Cancer Screening-Colonoscopy 1970 Depression Screening 1970 Regular Well Visit/Exam 18-64 1987 Zoster Vaccine (1 of 2) 2019 Pneumococcal vaccine <65 (2 of 2 - PPSV23) 08/28/2019 07/03/2019, 02/27/2019, 02/27/2019 Influenza Vaccine (Season Ended) 2024 12/21/19 23 Prostate Cancer Screening-PSA 04/05/2025 04/05/2023 DTaP/Tdap/Td Vaccine (3 - Td or Tdap) 09/28/2033 09/29/2023, 07/30/2022 Hepatitis B Screening Completed 04/05/2023 , 11/04/2022, 09/29/2022, Additional history exists Hepatitis C Screening Completed 04/05/2023 Procedures Procedure Name Priority Date/Time Associated Diagnosis Comments HEPATITIS C ANTIBODY Routine 04/05/2023 11:27 AM TRIAGE REGISTERED NURSE End stage renal disease (HCC) PSA SCREEN Routine 04/05/2023 11:27 AM TRIAGE REGISTERED NURSE End stage renal disease (HCC) from Last 3 Months or Most Recently Relevant to Health Maintenance Results * PSA screen (04/05/2023 11:27 AM TRIAGE REGISTERED NURSE) Pathologist [facility] PSA-Total 0.28 <=3.90 ng/mL [facility] Comment: Interpretive Data AGE SEX REFERENCE INTERVAL [...] revised 21. Blood 04/05/2023 11:2 7 AM TRIAGE REGISTERED NURSE 04/05/2023 12:10 PM TRIAGE REGISTERED NURSE Narrative [facility] - 04/05/2023 12:57 PM TRIAGE REGISTERED NURSE This lab is being obtained as part of a Kidney transplant evaluation, is time sensitive, and should only be drawn during the evaluation visit at [address] Abena Brown MD LAB BLOOD ORDERABL ES Final Result Performing Organization Address [facility] Co de Phone Number [facility] Department [place] [address] * Hepatitis C antibody Blood (04/05/2023 11:27 AM TRIAGE REGISTERED NURSE) Pathologist [facility] Hep C Ab Nonreactive Nonreactive [facility] Comment:Antibodies to HCV no t detected. Does NOT exclude the possibility of recent exposure to HCV. Current interpretive data was last revised on 21 Blood 04/05/2023 11:2 7 AM TRIAGE REGISTERED NURSE 04/05/2023 12:09 PM TRIAGE REGISTERED NURSE Narrative [facility] - 04/05/2023 1:03 PM TRIAGE REGISTERED NURSE This lab is being obtained as part of a Kidney transplant evaluation, is time sensitive, and should only be drawn during the evaluation visit at [address] Abena Brown MD LAB MICROBIOLOGY - GENERAL ORDERABLES Final Result Performing Organization Address City/[facility]/ZIP Co de Phone Number [facility] Department [place] [address] from Last 3 Months or Most Recently Relevant to Health Maintenance Insurance MEDICARE [facility] Address: [address] [address] [place] [address] [facility] MEDICARE MEDICARE IDPA Care Teams Front End Drupal Developer Relationship Specialty Start Date End Date Milo Morrell MD [address] [place] [address] PCP - General Emergency Medicine 03/26/23 Janet Moss, RN 4590 [facility] 3401 [place] [address] Commercial Portfolio Manager 10/06/22 Quang Johnson DO [address] [place] [address] Referring Physician Internal Medicine 05/18/24
--- OUTSIDE RECORDS SUMMARY | 2024-07-25 13:50 | XMS_ITS ---
Author Organization 1 [facility] Address [address] [place] [address] Care Team Providers Care Pressfitter Name Role Phone Milo Morrell MD Primary Care Provider Unavail James Xiao [facility] [phone] REASON FOR VISIT High Risk Foot care Encounters Encounter Location Date Provider Diagnosis 1 OF [facility] [address] [place] [address] 06/30/2024 James Marcum Plan Of Treatment No Information Progress Notes * Andrea TOMOB:1969 (54 yo M)Acc No.[id number]:06/30/2024 Progress Note Patient: Real CABRERA Provider: Gabrielle Marcum DPM :1970 A ge:54 Y S ex:Male Date:06/30/2024 Address:[address] [place], [place] [id number] Pcp:Milo Morrell MD Subjective: * Chief Complaints: * 1 . High Risk Foot care. * Medical History: Objective: * Vitals: Assessment: Plan: * Treatment: * Images: * Electronic signature of James Marcum DPM on 07/25/2024 at 01:49 PM CDT Sign off status: Pending * Provider: Gabrielle Marcum DPM Date: 0 06/30/2024 Generated for Zuleika dodd/Stacie/Bryan on: 0 07/25/2024 01:49 PM CDT
--- OUTSIDE RECORDS SUMMARY | 2024-07-25 13:50 | XMS_ITS | Patient Health Record ---
Author Organization 1 OF Renzo [facility] Address [address] [facility] [address] [place] [address] Care Team Providers Care Middle School Math Teacher Name Role Phone Milo Morrell MD Primary Care Provider Unavail able James Marcum Unavailable [phone] Allergies No Known Allergies Reason For Referral No Information Medications Medication SIG (Take, Route, Frequency, Duration) Notes Start Date End Date Status Omeprazole Active amLODIPine Benzoate Not-Taking Labetalol HCl 200 MG TAKE 1 TABLET BY MO UT TWICE DAILY Oral for 90 Days Active Calcium Acetate (Phos Binder) 667 MG TAKE 4 CAPSULES BY MOUTH THREE TIMES DAILY WITH MEALS Oral for 30 Days Active Triamcinolone Acetonide 0.1 % 1 application to affected area Externally Twice a day for days 12/23/2022 Not-Taking Triamcinolone Acetonide 0.1 % 1 application to affected area Externally Twice a day for days 12/29/2022 Not-Taking Triamcinolone Acetonide 0.1 % 1 application to affected area Externally Twice a day for days 12/31/2022 Not-Taking Triamcinolone Acetonide 0.1 % apply to affected area Topical Three times a day for 2 weeks, two times a day for 1 week, and 1 time a day for 1 week 03/11/2023 Not-Taking Melatonin Active Calcium Acetate Acti ve Furosemide Active Gabapentin Active Diphenoxylate-Atropine Active Vitamin A Active Vitamin C Active Social History Tobacco Use: Social History Observation Description Date Details (start date - stop date) Current Smoker NA - NA Tobacco Use/Smoking Question Answer Notes Are you a current smoker Problems Problem Type SNOMED Code ICD Code Onset Dates Problem Status W/U Status Risk Notes Problem 188113532 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 Problem [id number] 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 Problem 801815859705811 Carlson's neuroma of left 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) Active confirmed Problem Lumbar radiculopathy (M54.16) Active confirmed Problem 14842647 Autoimmune disease (M35.9) Active confirmed Problem 48346953 Autoimmune disorder (D89.89) Active confirmed Vital Signs Height 70 in 04/28/2024 Weight 240 lbs 04/28/2024 BMI 34.43 kg/m2 04/28/2024 Encounters Encounter Location Date Provider Diagnosis [address] 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 Discussed severe dry skin of feet and increased risk of infections and wounds when dry skin present. Recommended aggressive management with daily application of topical keratolytic (Sigrid 42) combined with Aquaphor ointment. Patient advised not to apply these between the toes. Once the condition is under control, ongoing managment of dry skin may be possible with daily application of Amerigel Care Lotion which patient was advised can be applied between the toes 04/05/2024 Other 04/14/2024 Other I did examine and evaluate the [...] to why he is having the pain. 04/21/2024 Other 04/28/2024 Other Plan Of Treatment No Information Insurance Providers Payer Name Payer Address Payer Phone Subscriber Number Group Number Insured Name Patient Relationship to Insured Coverage Start Date Coverage End Date Medicare [address] [facility] [place], [place] [id number] Real Norton Self - [facility] the [facility] [address] [address] [place] [address] [id number] Real Norton Self - patient is the insured Medical (General) History Medical History History ICD Code depression Dialysis High Blood Pressure kidney disease Surgical History Surgery Date(Month/Year) colonscopy 03/2023
--- NOTE | 2024-07-25 14:06 | ECHO_ITS ---
Patient Info Name: Real Rolno Age: 54 years : 1970 Gender: Male Ht: 70 in Wt: 258 lbs BSA: 2.45 m2 HR: 81 bpm BP: 205 / 139 mmHg Technical Quality: Good Exam Date: 07/25/2024 2:29 PM Patient Status: O Admit Date: 07/25/2024 Exam Type: CA echo doppler color flow Complete two-dimensional, color flow and Doppler transthoracic echocardiogram is performed. Staff Referring Physician: Angella Han Radiological Metallurgist: Vibha Martin Attending Provider: Quang Johnson DO Summary 1. Complete two-dimensional, color flow and Doppler transthoracic echocardiogram is performed. 2. Left ventricular chamber dimension is normal. 3. Left ventricular systolic function is normal, estimated at 55-60. 4. There is mild concentric increased left ventricular wall thickness. 5. The left ventricular diastolic function is abnormal. 6. E/e' 21 is elevated. 7. Left atrial chamber dimension is moderately enlarged. 8. The mitral valve has a moderately calcified annulus. 9. There is mild mitral valve regurgitation. 10. Mild pulmonary hypertension, estimated pulmonary arterial systolic pressure is 45 mmHg. 11. There is trace pulmonic regurgitation. Left Ventricle E/e' 21 is elevated. Left ventricular chamber dimension is normal. Left ventricular systolic function is normal, estimated at 55-60. There is mild concentric increased left ventricular wall thickness. The left ventricular diastolic function is abnormal. Right Ventricle Right ventricular chamber dimension is normal. Right ventricular systolic function is normal. Left Atria Left atrial chamber dimension is moderately enlarged. Right Atria Right atrial chamber dimension is normal. Aortic Valve The aortic valve is trileaflet. There is no aortic valve stenosis. There is no aortic valve regurgitation. Pulmonic Valve There is trace pulmonic regurgitation. Mitral Valve The mitral valve has a moderately calcified annulus. There is no mitral valve stenosis. There is mild mitral valve regurgitation. Tricuspid Valve There is no tricuspid valve regurgitation. Mild pulmonary hypertension, estimated pulmonary arterial systolic pressure is 45 mmHg. Pericardium/Pleural There is no pericardial effusion. Inferior Vena Cava Normal inferior vena cava with >50% collapse upon inspiration consistent with normal right atrial pressure, 5 mmHg. Aorta The aortic root size at the sinus of Valsalva is normal. Left Ventricular Outflow Tract Name Value Normal LVOT 2D LVOT Diameter 2.2 cm LVOT Doppler LVOT Peak Velocity 108 cm/s LVOT Peak Gradient 5 mmHg LVOT Mean Gradient 3 mmHg LVOT VTI 18 cm LVOT VTI/AV VTI Ratio 0.6 LVOT Stroke Volume 67 ml LVOT CO 18.5 l/min LVOT CI 7.5 l/min/m2 Pulmonic Valve Name Value Normal PV Doppler PV Peak Velocity 107 cm/s PV Peak Gradient 5 mmHg Mitral Valve Name Value Normal MV Diastolic Function MV E Peak Velocity 154 cm/s MV A Peak Velocity 128 cm/s MV E/A 1.2 MV Decel Time (PW) 154 ms MV Annular TDI MV E/e' (Septal) 34.6 MV E/e' (Lateral) 15.4 MV E/e' (Average) 25.0 Tricuspid Valve Name Value Normal TV Regurgitation Doppler TR Peak Velocity 316 cm/s TR Peak Gradient 38 mmHg Estimated PAP/RSVP RA Pressure 5 mmHg <=5 PA Systolic Pressure 45 mmHg <36 RV Systolic Pressure 45 mmHg <36 TV Annular TDI TV Lateral Denise s' Velocity 6.1 cm/s >=9.5 Aorta Name Value Normal Ascending Aorta Ao Root Diameter (MM) 4.3 cm Ao Root Diam Index (MM) 1.7 cm/m2 Aortic Valve Name Value Normal AV Doppler AV Peak Velocity 137 cm/s AV Peak Gradient 8 mmHg AV Mean Gradient 5 mmHg AV VTI 30 cm AV Area (Cont Eq VTI) 2.2 cm2 >=3.0 AV Area (Cont Eq Bill) 2.9 cm2 AV DI (Bill) 0.79 AV Regurgitation 2D LVOT Area 3.6 cm2 Ventricles Name Value Normal LV Dimensions 2D/MM IVS Diastolic Thickness (2D) 1.4 cm 0.6-1.0 LVID Diastole (2D) 6.1 cm 4.2-5.8 LVIW Diastolic Thickness (2D) 1.2 cm 0.6-1.0 LVID Systole (2D) 5.2 cm 2.5-4.0 LVOT Diameter 2.2 cm LV Mass (2D Cubed) 367.06 g 88.00-224.00 LV Mass Index (2D Cubed) 150 g/m2 49-115 Relative Wall Thickness (2D) 0.41 <=0.42 LV Fractional Shortening/Ejection Fraction 2D/MM LV Fractional Shortening (2D) 16 % 25-43 LV EF (2D Teichholz) 33 % LV Diastolic Volume (4C MOD) 140 ml LV EF (4C MOD) 45 % LV Diastolic Volume (2C MOD) 149 ml LV EF (2C MOD) 47 % LV Diastolic Volume (BP MOD) 149 ml 62-150 LV Diastolic Volume Index (BP MOD) 61 ml/m2 34-74 LV Systolic Volume (BP MOD) 79 ml 21-61 LV Systolic Volume Index (BP MOD) 32 ml/m2 11-31 LV EF (BP MOD) 47 % 52-72 LV Diastolic Length (4C) 8.4 cm LV Systolic Length (4C) 7.3 cm LV Stroke Volume (4C MOD) 63 ml Atria Name Value Normal LA Dimensions LA Dimension (MM) 3.9 cm 3.0-4.0 LA Volume (4C A-L) 96 ml LA Volume (BP A-L) 109 ml RA Dimensions RA Systolic Major [place] Length (4C) 5.1 cm 2.1-2.7 RA Area (4C) 16.3 cm2 <=18.0 Report Signatures
== END 2024-07-25 13:41 | disposition home or self-care (01) ==
PROVIDERS: PCP Nurse Practitioner Family; Visit Provider Internal Medicine Cardiovascular Disease
DX: I42.9 Cardiomyopathy, unspecified (principal); R91.8 Other nonspecific abnormal finding of lung field
CPT/HCPCS: 71250; 93306

== ENCOUNTER 2024-09-02 11:44 | Emergency (ER) | payer MEDICARE, MEDICAID, SELFPAY ==
--- OUTSIDE RECORDS SUMMARY | 2024-09-02 11:47 | XMS_ITS | Referral Summary ---
Author Organization [facility] al Address [address] [place] [address] Care Team Providers Care Paper Maker Name Role Phone Janet Moss RN Unavailable [phone] Quang Johnson DO Unavailable [phone] Angella Han NP Primary Care Provider [phone] Encounters Date Type Department Care Team Description 07/27/2024 10:00 AM CDT - 07/27/2024 11:59 PM CDT Hospital Encounter [address] [address] ESRD (end stage renal disease) ([facility]) Discharge Disposition: Discharge to home or self care from Last 3 Months Allergies No known [...] on file Legal Sex Male 9:46 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 Gender Identity Not on file Sexual Orientation Not on file Last Filed Vital Signs Vital Sign Reading Time Taken Comments Blood Pressure 163/115 04/12/2023 8:12 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 Pulse 77 04/12/2023 8:12 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 Temperature 36.7 C (98.1 F) 04/05/2023 1:04 PM WATCH TRAIN ASSEMBLER Respiratory Rate - - Oxygen Saturation - - Inhaled Oxygen Concentration - - Weight 112.5 kg (248 lb 0.3 oz) 04/12/2023 8:12 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 Height 175.3 cm (5' 9) 04/05/2023 1:04 PM WATCH TRAIN ASSEMBLER Body Mass Index 36.63 04/05/2023 1:04 PM WATCH TRAIN ASSEMBLER Plan of Treatment Not on file Procedures Procedure Name Priority Date/Time Associated Diagnosis Comments HLA ANTIBODY SCREEN - PRA (CLASS I AND CLASS II) Routine 07/27/2024 10:00 AM CDT ESRD (end stage renal disease) ([facility]) HLA ANTIBODY SCREEN BY PRA OR SAB PER SCHEDULE (CLASS I AND CLASS II) Routine 07/27/2024 10:00 AM CDT ESRD (end stage renal disease) ([facility]) HEPATITIS C ANTIBODY Routine 04/05/2023 11:27 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 End stage renal disease (H[facility]) PSA SCREEN Routine 04/05/2023 11:27 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 End stage renal disease (HCC) from Last 3 Months or Most Recently Relevant to Health Maintenance Results * HLA Antibody Screen by PRA or SAB per Schedule (Class I and Class II) (07/27/2024 10:00 AM CDT) Blood 07/27/2024 10:0 0 AM CDT Narrative [facility] - WATCH TRAIN ASSEMBLER Sample received in lab. PRA Screen ordered. us Alejo Florence MD LAB BLOOD ORDERABLES Final Resu lt [facility] * HLA Antibody Screen - PRA (Class I and Class II) (07/27/2024 10:00 AM CDT) Class I Treatment Untreated [facility] Class I Dilution 1:1 [facility] Class I Tested Date 07/29/2024 [facility] Class I Result Negative [facility] Class I Percent Positive 0 [facility] Class II Treatment Untreated [facility] Class II Dilution 1:1 [facility] Class II Tested Date 07/29/2024 [facility] Class II Result Negative [facility] Class II Percent Positive 0 [facility] 07/27/2024 10:0 0 AM CDT 07/31/2024 10:03 AM CDT Narrative [facility] - 07/31/2024 10:03 AM CDT PRA (panel reactive antibody) HLA antibody screen is performed on serum samples using a method developed and validated by the [facility] HLA laboratory based on an FDA- approved IVD kit (LABScreen PRA, [employer], [place], [place]). Interpretive comments: The percentage of beads with MFI > 750 is reported, which indicates the percentage of donor population estimated to be incompatible with the patient tested. PRA > 0% is consistent with alloimmunization to HLA. Testing performed at the [facility] HLA Laboratory, [facility], [address] floor, [place], [address]. [facility] # [id number]. Breanne Nieto, Ph.D., Photo Checker, HLA Laboratory Abdoulaye Kraft M.D., Ph.D., Longitudinal Float Operator, HLA Laboratory Denise Abreu, Ph.D., [place] Longitudinal Float Operator, [facility] Clinical Laboratories Current methodology and interpretive comments last revised on 06/16/2017. Alejo Florence MD LAB BLOOD ORDERABLES Final Resu lt [facility] * PSA screen (04/05/2023 11:27 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) PSA-Total 0.28 <=3.90 ng/mL [facility] Comment: Interpretive Data AGE SEX REFERENCE INTERVAL [...] revised 21. Blood 04/05/2023 11:2 7 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 04/05/2023 12:10 PM WATCH TRAIN ASSEMBLER Narrative [facility] - 04/05/2023 12:57 PM WATCH TRAIN ASSEMBLER This lab is being obtained as part of a Kidney transplant evaluation, is time sensitive, and should only be drawn during the evaluation visit at [facility] 3CAM Lab. Abena Brown MD LAB BLOOD ORDERABL ES Final Result Performing Organization Address City/[facility]/ZIP Co de Phone Number [facility] [place] [address] * Hepatitis C antibody Blood (04/05/2023 11:27 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) Hep C Ab Nonreactive Nonreactive [facility] Comment:Antibodies to HCV no t detected. Does NOT exclude the possibility of recent exposure to HCV. Current interpretive data was last revised on 21 Blood 04/05/2023 11:2 7 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 04/05/2023 12:09 PM WATCH TRAIN ASSEMBLER Narrative [facility] - 04/05/2023 1:03 PM WATCH TRAIN ASSEMBLER This lab is being obtained as part of a Kidney transplant evaluation, is time sensitive, and should only be drawn during the evaluation visit at [facility] 3C Lab. Abena Brown MD LAB MICROBIOLOGY - GENERAL ORDERABLES Final Result [facility] [place] [address] from Last 3 Months or Most Recently Relevant to Health Maintenance [place] [address] [facility] MEDICARE MEDICARE IDME Care Teams Paper Maker Relationship Specialty Start Date End Date Angella aHn NP [address] [facility] [address] [place], [place] [id number] PCP - General Nurse Practitioner 08/14/24 Janet Moss, RN [address] [facility] [address] [place] [address] Professional Caster 10/06/22 Quang Johnson DO [address] [place], [place] [id number] Referring Physician Internal Medicine 05/18/24
--- OUTSIDE RECORDS SUMMARY | 2024-09-02 11:47 | XMS_ITS | Patient Health Record ---
Author Organization 1 [facility] Address [address] [facility] [address] [place] [address] Care Team Providers Care Director Occupational Name Role Phone Milo Morrell MD Primary Care Provider Unavail able James Marcum Unavailable [phone] Allergies No Known Allergies Reason For Referral No Information Medications Medication SIG (Take, Route, Frequency, Duration) Notes Start Date End Date Status Omeprazole Active amLODIPine Benzoate Not-Taking Labetalol HCl 200 MG TAKE 1 TABLET BY MO UT TWICE DAILY Oral; Duration: 90 Days Active Calcium Acetate (Phos Binder) 667 MG TAKE 4 CAPSULES BY MOUTH THREE TIMES DAILY WITH MEALS Oral; Duration: 30 Days Active Triamcinolone Acetonide 0.1 % 1 application to affected area Externally Twice a day; Duration: days 12/23/2022 Not-Taking Triamcinolone Acetonide 0.1 % 1 application to affected area Externally Twice a day; Duration: days 12/29/2022 Not-Taking Triamcinolone Acetonide 0.1 % 1 application to affected area Externally Twice a day; Duration: days 12/31/2022 Not-Taking Triamcinolone Acetonide 0.1 % [...] Problem Status W/U Status Risk Notes 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 Problem Carlson's neuroma of right foot (322145782505186) 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 Problem Carlson's neuroma of left foot (000817421408415) Carlson's neuroma of left 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) Active confirmed Problem Lumbar radiculopathy (109767186) Lumbar radiculopathy (M54.16) Active confirmed Problem Autoimmune disease (46282278) Autoimmune disease (M35.9) Active confirmed Problem Autoimmune disorder (12496554) Autoimmune disorder (D89.89) Active confirmed Vital Signs Height 70 in 04/28/2024 Weight 240 lbs 04/28/2024 BMI 34.43 kg/m2 04/28/2024 Encounters Encounter Location Date Provider Diagnosis 1 OF Renzo Damian DPM [facility] [address] [address] 04/28/2024 James Marcum Idiopathic progressi ve neuropathy G60.3 [...] Coverage End Date Medicare [address] [place], [place] [id number] Real Norton Self - patient is the insured [facility] [address] [address] [place] [address] [id number] eRal Norton Self - patient is the insured Medical (General) History Medical History History ICD Code depression Dialysis High Blood Pressure kidney disease Surgical History Surgery Date(Month/Year) colonscopy 03/2023
--- OUTSIDE RECORDS SUMMARY | 2024-09-02 11:47 | XMS_ITS ---
Author Organization 1 OF Renzo alexander [facility] Address [address] [address] Care Team Providers Care Associate Media Director Name Role Phone Milo Morrell MD Primary Care Provider Unavail able James Marcum [facility] [phone] REASON FOR VISIT High Risk Foot care Encounters Encounter Location Date Provider Diagnosis 1 OF Renzo Damian [facility] [address] [address] 04/21/2024 James Marcum Idiopathic progressi ve neuropathy [...] Detail Notes PALLIATIVE FOOT CARE: Nail debride (58353): Debr idement of at least six mycotic and/or hypertrophic nails performed:, utilizing manual and electric debridement the affected nails were reduced the nails in length and thickness with curettage of debris from nail margins performed as needed. Nail thickness reduced by:, 10% Progress Notes * Andrea TOMOB:1969 (54 yo M)Acc No.[id number]:04/21/2024 Progress Note Patient: Real CABRERA Provider: Gabrielle Marcum DPM :1970 A ge:54 Y S ex:Male Date:04/21/2024 Address:[address] [place], [place] [id number] Pcp:Milo Morrell MD Subjective: * Chief Complaints: [...] suspicious lesions, bilateral. Nails: N ail plates of:[id number] relatively thickened, dystrophic, discolored, incurvated. . Hyperkeratotic [...] Procedures: P ALLIATIVE FOOT CARE:: Nail debride (28744): D ebridement of at least six mycotic [...] Electronic signature of James Marcum DPM on 09/02/2024 at 11:47 AM CDT Sign off status: Pending * Provider: Gabrielle Marcum DPM Date: 0 04/21/2024 Generated for Zuleika dodd/Stacie/Bryan on: 0 09/02/2024 11:47 AM CDT History and Physical Notes * HPI [...]
--- OUTSIDE RECORDS SUMMARY | 2024-09-02 11:47 | XMS_ITS ---
Author Organization [facility] Address [address] [place] [address] Care Team Providers Care Oil Dipper Name Role Phone Janet Moss RN Unavailable [phone] Quang Johnson DO Unavailable [phone] Angella Han NP Primary Care Provider [phone] Transplant Episode Kidney Candidate [facility] ([place], [place]) [facility] Center waitlisted on 08/24/2023 Marked as Inactive on 08/24/2023 Reason: 04 - Insurance Issues Kidney CoordinatorJanet Moss RN Fax: N/A Email: N/A Scores Score Value Updated Exceptions/Reas ons CPRA Not available EPTS (Calc) 32 09/02/2024 [place] Organ 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 Care Team Name Role Phone Fax Email Janet Moss RN Kidney Coordinator [phone] N/A N/A Xavier Marcus MD Referring Physician [phone] N/A Janet Muse Clinical Research Coordinator [phone] N/A N/A Events Pre-Transplant Referred: 10/05/2022 Evaluation began: 02/04/2023 Committee: 08/23/2023 UNOS qualified: 11/27/2021 Center waitlisted: 08/24/2023 Dialysis History Dialysis History Start End Type Comments Center 11/27/2021 Peritoneal [facility] Dialysis [facility] Information Center Phone Fax Address [facility] [phone] [address] [facility] [address] [facility] [address]
--- OUTSIDE RECORDS SUMMARY | 2024-09-02 11:47 | XMS_ITS | Clinical Summary ---
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 REP Gender Identity Not on file Sexual Orientation Not on file Last Filed Vital Signs Vital Sign Reading Time Taken Comments Blood Pressure 165/89 12/22/2023 7:25 PM CDT Pulse 77 12/22/2023 7:25 PM CDT Temperature 36.5 C (97.7 F) 12/22/2023 7:25 PM CDT Respiratory Rate 20 12/22/2023 7:25 PM CDT Oxygen Saturation 100% 12/22/2023 7:25 PM CDT Inhaled Oxygen Concentration - - Weight 123.8 kg (273 lb) 12/22/2023 3:23 PM CDT Height 177.8 cm (5' 10) 12/22/2023 3:23 PM CDT Body Mass Index 39.17 12/22/2023 3:23 PM CDT Plan of Treatment Health Maintenance Due Date Last Done Comments Colorectal Cancer Screening Colonoscopy (10 Years) 1970 Annual Physical 02/18/1972 Hepatitis C 1987 Zoster Vaccines (1 of 2) 2019 Pneumococcal Vaccine: 50+ Years (2 of 2 - PPSV23) 08/28/2019 07/03/2019 Hepatitis B Vaccines (3 of 3 - 19+ 3-dose series) 03/07/2023 11/04/2022, 09/29/2022, 09/04/2022 COVID-19 Vaccine (1 - 2023-2 5 season) 2023 PHQ-2 (Physician [place]) 02/23/2024 12/22/2023 DTaP, Tdap and Td Vaccines ( [...] this topic Insurance MEDICARE MEDICAID Care Teams Audit Reviewer Relationship Specialty Start Date End Date None, Provider, MD PCP - General UNKNOWN PHYSICIAN SPECIALTY 12/22/23
--- OUTSIDE RECORDS SUMMARY | 2024-09-02 11:47 | XMS_ITS ---
Author Organization 1 OF Renzo alexander [facility] Address [address] [place] [address] Care Team Providers Care Demonstrator Sewing Techniques Name Role Phone Milo Morrell MD Primary Care Provider Unavail James Xiao [facility] [phone] REASON FOR VISIT High Risk Foot care Encounters Encounter Location Date Provider Diagnosis 1 OF [facility] [address] [place] [address] 06/30/2024 James Marcum Plan Of Treatment No Information Progress Notes * Andrea TOMOB:1969 (54 yo M)Acc No.[id number]:06/30/2024 Progress Note Patient: Real CABRERA Provider: Gabrielle Marcum DPM :1970 A ge:54 Y S ex:Male Date:06/30/2024 Address:[address] [place], [place] [id number] Pcp:Milo Morrell MD Subjective: * Chief Complaints: * 1 . High Risk Foot care. * Medical History: Objective: * Vitals: Assessment: Plan: * Treatment: * Images: * Electronic signature of James Marcum DPM on 09/02/2024 at 11:46 AM CDT Sign off status: Pending * Provider: Gabrielle Marcum DPM Date: 0 06/30/2024 Generated for Zuleika dodd/Stacie/Bryan on: 0 09/02/2024 11:46 AM CDT
--- OUTSIDE RECORDS SUMMARY | 2024-09-02 11:47 | XMS_ITS | Clinical Summary ---
Author Organization [facility] Address [address] [place] [address] Care Team Providers Care Bond Writer Name Role Phone Janet Moss RN Unavailable [phone] Quang Johnson DO Unavailable [phone] Angella Han NP Primary Care Provider [phone] Allergies No known active allergies Medications albuterol [...] - 07/27/2024 11:59 PM CDT Hospital Encounter [address] [address] ESRD (end stage renal disease) (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 Gender Identity Not on file Sexual Orientation Not on file Obstetrics History Last Filed Vital Signs Vital Sign Reading Time Taken Comments Blood Pressure 163/115 04/12/2023 8:12 AM TYING MACHINE OPERATOR LUMBER Pulse 77 04/12/2023 8:12 AM TYING MACHINE OPERATOR LUMBER Temperature 36.7 C (98.1 F) 04/05/2023 1:04 PM TYING MACHINE OPERATOR LUMBER Respiratory Rate - - Oxygen Saturation - - Inhaled Oxygen Concentration - - Weight 112.5 kg (248 lb 0.3 oz) 04/12/2023 8:12 AM TYING MACHINE OPERATOR LUMBER Height 175.3 cm (5' 9) 04/05/2023 1:04 PM TYING MACHINE OPERATOR LUMBER Body Mass Index 36.63 04/05/2023 1:04 PM TYING MACHINE OPERATOR LUMBER Plan of Treatment Health Maintenance Due Date Last Done Comments Colon Cancer Screening-Colonoscopy 1970 Depression Screening 1970 Regular Well Visit/Exam 18-64 1987 Zoster Vaccine (1 of 2) 2019 Pneumococcal vaccine <65 (2 of 2 - PPSV23) 08/28/2019 07/03/2019, 02/27/2019, 02/27/2019 Influenza Vaccine (#1) 2024 12/20/2022 Prostate Cancer Screening-PSA 04/05/2025 04/05/2023 DTaP/Tdap/Td Vaccine (3 - Td or Tdap) 09/28/2033 09/29/2023, 07/30/2022 Hepatitis B Screening Completed 04/05/2023 , 11/04/2022, 09/29/2022, Additional history exists Hepatitis C Screening Completed 04/05/2023 Procedures Procedure Name Priority Date/Time Associated Diagnosis Comments HLA ANTIBODY SCREEN - PRA (CLASS I AND CLASS II) Routine 07/27/2024 10:00 AM CDT ESRD (end stage renal disease) (HCC) HLA ANTIBODY SCREEN BY PRA OR SAB PER SCHEDULE (CLASS I AND CLASS II) Routine 07/27/2024 10:00 AM CDT ESRD (end stage renal disease) (HCC) HEPATITIS C ANTIBODY Routine 04/05/2023 11:27 AM TYING MACHINE OPERATOR LUMBER End stage renal disease (HCC) PSA SCREEN Routine 04/05/2023 11:27 AM TYING MACHINE OPERATOR LUMBER End stage renal disease (HCC) from Last 3 Months or Most Recently Relevant to Health Maintenance Results * HLA Antibody Screen by PRA or SAB per Schedule (Class I and Class II) (07/27/2024 10:00 AM CDT) Blood 07/27/2024 10:0 0 AM CDT Narrative HISTOTRAC - TYING MACHINE OPERATOR LUMBER Sample received in lab. PRA Screen ordered. [...] a method developed and validated by the [facility] HLA laboratory based on an FDA- approved IVD kit (LABScreen PRA, REEL Qualified, [facility] [place]). Interpretive comments: The percentage of beads with MFI > 750 is reported, which indicates the percentage of donor population estimated to be incompatible with the patient tested. PRA > 0% is consistent with alloimmunization to HLA. Testing performed at the [facility], [address] [place] [address], 5th floor, [place], [address]. [facility] # [id number]. Breanne Nieto, Ph.D., General Assistant, HLA Laboratory Abdoulaye Kraft M.D., Ph.D., Leaded Glass Installer, HLA Laboratory Denise Abreu, Ph.D., CLIA Leaded Glass Installer, [facility] Current methodology and interpretive comments last revised on 06/16/2017. us Alejo Florence MD LAB BLOOD ORDERABLES Final Resu lt HISTOTRAC * PSA screen (04/05/2023 11:27 AM TYING MACHINE OPERATOR LUMBER) PSA-Total 0.28 <=3.90 ng/mL [facility] Comment: Interpretive Data AGE SEX REFERENCE INTERVAL [...] revised 21. Blood 04/05/2023 11:2 7 AM TYING MACHINE OPERATOR LUMBER 04/05/2023 12:10 PM TYING MACHINE OPERATOR LUMBER Narrative [facility] - 04/05/2023 12:57 PM TYING MACHINE OPERATOR LUMBER This lab is being obtained as part of a Kidney transplant evaluation, is time sensitive, and should only be drawn during the evaluation visit at [address] Lab[address] Abena Brown MD LAB BLOOD ORDERABL ES Final Result Performing Organization Address [facility] de Phone Number [facility] [place] [place] [address] * Hepatitis C antibody Blood (04/05/2023 11:27 AM TYING MACHINE OPERATOR LUMBER) Pathologist [facility] Hep C Ab Nonreactive Nonreactive [facility] Comment:Antibodies to HCV no t detected. Does NOT exclude the possibility of recent exposure to HCV. Current interpretive data was last revised on 21 Blood 04/05/2023 11:2 7 AM TYING MACHINE OPERATOR LUMBER 04/05/2023 12:09 PM TYING MACHINE OPERATOR LUMBER Narrative [facility] - 04/05/2023 1:03 PM TYING MACHINE OPERATOR LUMBER This lab is being obtained as part of a Kidney transplant evaluation, is time sensitive, and should only be drawn during the evaluation visit at [address] Abena Brown MD LAB MICROBIOLOGY - GENERAL ORDERABLES Final Result Performing Organization Address [facility] Co de Phone Number [facility] [place] [place] [address] from Last 3 Months or Most Recently Relevant to Health Maintenance Insurance MEDICARE IDWI MEDICARE MEDICARE IDPA [address] [place] [address] Care Teams Bond Writer Relationship Specialty Start Date End Date Angella Han NP [address] [place], [place] [id number] PCP - General Nurse Practitioner 08/14/24 Janet Moss, RN [address] [facility] [address] [place] [address] Studio Operations Manager 10/06/22 Quang Johnson DO [address] [place] [address] Referring Physician Internal Medicine 05/18/24
[2024-09-02 11:54] VITALS: BP 128/82; PULSE 83; RESP 17; TEMP 36.1; O2SAT 95
--- NOTE | 2024-09-02 11:56 | ED_ITS ---
HPI - Ear Problem General Chief complaint: Ear Stated complaint: ear infection Time Seen by Provider: 09/02/24 12:06 Source: patient and RN notes reviewed Mode of arrival: ambulatory Limitations: no limitations History of Present Illness HPI Narrative: 54-year-old male presents with concern for right ear pain that started last night. Reports it felt like water was in the ear but then became very painful. He denies any drainage from the ear. Denies recent cold symptoms. Denies fever, aches, chills, sweats. MD Complaint: ear pain Related Data Home Medications ?Medication ?Instructions ?Recorded ?Confirmed ?Last Taken ?Type gentamicin 0.1 % topical cream 1 applic topical TID PRN DIALYSIS 08/31/22 08/15/24 09/27/23 History CATH. calcium carbonate (Tums) 200 mg PO HS PRN Indigestion 07/20/23 08/15/24 09/27/23 History cinacalcet 30 mg tablet 90 mg PO DAILY 07/20/23 08/15/24 09/27/23 History multivitamin 1 tablet PO DAILY 07/29/23 08/15/24 10/05/23 History ferric citrate 210 mg iron tablet 210 mg PO TIDWM 09/28/23 08/15/24 Unknown History (Auryxia) escitalopram oxalate 10 mg tablet 10 mg PO DAILY 03/09/24 08/15/24 Unknown History albuterol sulfate 90 mcg/actuation 2 inh inhalation QID PRN shortness 03/29/24 08/15/24 Unknown History aerosol inhaler of breath or wheezing calcium acetate(phosphat bind) 667 2,668 mg PO TIDWM 03/29/24 08/15/24 Unknown History mg capsule melatonin 10 mg capsule 10 mg PO HS 03/29/24 08/15/24 Unknown History ondansetron 4 mg disintegrating 8 mg translingual Q8H PRN nausea 03/29/24 08/15/24 Unknown History tablet and vomiting Allergies Allergy/AdvReac Type Severity Reaction Status Date / Time No Known Allergies Allergy Verified 09/02/24 11:58 Review of Systems Review of Systems: CONSTITUTIONAL: Denies malaise, chills, sweats, or fever. EYES: Denies visual changes, redness, or discharge. ENT: Denies rhinorrhea, congestion, sinus pain, and sore throat. Reports right ear pain CARDIOVASCULAR: Denies chest pain, palpitations, or edema. RESPIRATORY: Denies cough. Denies dyspnea. GASTROINTESTINAL: Denies abdominal pain, nausea, vomiting, diarrhea SKIN: Denies rash or itching. MUSCULOSKELETAL: Denies myalgia. NEUROLOGIC: Denies headache. All systems reviewed & are unremarkable except as noted in HPI and below PMFSH Past Medical History Medical History Peritoneal dialysis catheter in place Polyneuropathy HTN (hypertension) Vitamin D3 deficiency Surgical History Surgical History History of appendectomy Family History Family History Father Hypertension Social History Social History Social History: Lives alone in an apartment. No pets. Smoking packs per day: 1.5 Smoking cigarettes per day: 30.0 Years smoked: 20 Smoking pack-years: 30.00 Smoking status: Former smoker Tobacco type: cigarettes Alcohol intake: current Alcohol use details: rarely Substance use: current Substance use type: marijuana Other substance usage details: OCCASIONAL Do You Feel Safe in your Home?: Yes Lack of Transportation: No Lack of Food: Often True Current Housing: I Have Housing Concerned About Future Housing: No Difficulty Paying Gas/Electric Bills: YES Difficulty Paying for Meds: No Currently Unemployed: No Education: Bachelor's Degree Difficulty w/ Childcare or Family Care: No Living arrangements: with family Occupation/Education: unemployed Gender identity (if verbalized by the patient): Male Sexual Orientation (if Verbalized by the Patient): Straight or Heterosexual Spiritual care concerns: No Agree to blood products: Yes Comments At time of signature, agree with nursing past medical, surgical, social and family history. There is no relevant family history pertinent to the presenting complaint Exam Narrative: GENERAL: Well-appearing, well-nourished, and in no acute distress. HEAD: Normocephalic EYES: PERRLA, conjunctivae clear ENT: Nares clear. Mucous membranes moist. TM pearly brooke with dull light reflex bilaterally; right tragal tenderness,EAC slightly erythematous and edematous with a very small amount of purulent drainage. No post or pre-auricular erythema, induration, or warmth noted. Oropharynx not erythematous without lesions. Tonsils not enlarged and without exudate, no drooling, no hoarseness, no trismus, uvula midline. NECK: Supple. No lymphadenopathy CHEST: Clear to auscultation, breath sounds equal. No wheezing, rhonchi, rales, or stridor. No respiratory distress, speaks in full sentences. HEART: Regular rate and rhythm. No murmur heard. SKIN: Warm, dry, no rash. NEURO: Alert and oriented x3. PSYCH: Normal mood and affect Course Course Emergency Course: Patient is aware of diagnosis, understands and agrees to treatment plan. Anticipatory guidance given. Patient agrees to follow-up as directed and is aware of reasons to seek care at the emergency department. Portions of this record may have been created with voice recognition software Level of Care: [facility] Visit Vital Signs Vital signs: Vital Signs Temperature 96.9 F L 09/02/24 11:54 Pulse Rate 83 09/02/24 11:54 Respiratory Rate 17 09/02/24 11:54 Blood Pressure 128/82 09/02/24 11:54 Pulse Oximetry 95 09/02/24 11:54 Oxygen Delivery Room Air 09/02/24 11:54 Temperature 96.9 F L 09/02/24 11:54 Pulse Rate 83 09/02/24 11:54 Respiratory Rate 17 09/02/24 11:54 Blood Pressure 128/82 09/02/24 11:54 Pulse Oximetry 95 09/02/24 11:54 Oxygen Delivery Room Air 09/02/24 11:54 Reviewed. Medical Decision Making MDM Narrative Medical decision making narrative: I evaluated this in the [facility]. History is obtained from patient who is an independent historian and physical exam was performed.? Available medical records were reviewed. ? Exam findings and relevant testing show no acute concerns or changes; patient is non-toxic appearing and is in no distress. Differential diagnosis considered: Corado virus, strep pharyngitis, allergic rhinitis, upper respiratory tract infection, sinusitis, rhinosinusitis, nasopharyngitis. viral pharyngitis, otitis media, otitis externa, otitis effusion, pre/post auricular cellulitis, mastoiditis, cerumen impaction, foreign body. Exam findings show no acute concerns or changes; patient is non-toxic appearing and is in no distress. Patient is appropriate for outpatient treatment and follow-up. ? Differential diagnosis and treatment plan were discussed with the patient. Patient agrees with discussion and after shared medical decision making agrees with plan of care. All questions were answered to the patient's satisfaction. Patient is appropriate for outpatient treatment and follow-up. Vital Signs Vital Signs: Vital Signs Temperature 96.9 F L 09/02/24 11:54 Pulse Rate 83 09/02/24 11:54 Respiratory Rate 17 09/02/24 11:54 Blood Pressure 128/82 09/02/24 11:54 Pulse Oximetry 95 09/02/24 11:54 Oxygen Delivery Room Air 09/02/24 11:54 Temperature 96.9 F L 09/02/24 11:54 Pulse Rate 83 09/02/24 11:54 Respiratory Rate 17 09/02/24 11:54 Blood Pressure 128/82 09/02/24 11:54 Pulse Oximetry 95 09/02/24 11:54 Oxygen Delivery Room Air 09/02/24 11:54 Critical Care Time Critical Care Time Critical Care Time: No Discharge Plan Discharge Clinical Impression: Otitis externa Patient Disposition: Home Condition: Stable Instructions: How to Use Ear Drops (ED) Additional Instructions: 1) Please follow-up with your primary care doctor in the next 1-2 days. 2) If you have any urgent concerns please go to the ER. 3) Please take medications as prescribed and continue taking your home medications as usual. 4) Please read and follow information included in discharge instructions. Patient Language: Vietnamese Prescriptions: New ymhzropf-djlmuhmxd-YU 3.5-10,000-1 mg/mL-unit/mL-% drops,suspension 4 drop RIGHT EAR Q8H 7 Days Qty: 10 0RF No Action gentamicin 0.1 % cream 1 applic topical TID PRN (Reason: DIALYSIS CATH.) calcium carbonate [Tums] 200 mg calcium (500 mg) tablet,chewable 200 mg PO HS PRN (Reason: Indigestion) omeprazole 20 mg capsule,delayed release(DR/EC) 20 mg PO DAILY Qty: 90 1RF nortriptyline 50 mg capsule 50 mg PO DAILY Qty: 90 1RF carvedilol 25 mg tablet 25 mg PO Q12H Qty: 60 5RF Rx Instructions: must administer with a meal/food multivitamin Tablet 1 tablet PO DAILY Entresto 49-51 mg tablet 1 tablet PO BID Qty: 60 5RF dapagliflozin propanediol [Farxiga] 10 mg tablet 10 mg PO DAILY Qty: 30 5RF Auryxia 210 mg iron Tablet 210 mg PO TIDWM Rx Instructions: administer with a meal melatonin 10 mg capsule 10 mg PO HS albuterol sulfate 90 mcg/actuation HFA aerosol inhaler 2 inh INHALATION QID PRN (Reason: shortness of breath or wheezing) calcium acetate(phosphat bind) 667 mg capsule 2,668 mg PO TIDWM ondansetron 4 mg tablet,disintegrating 8 mg translingual Q8H PRN (Reason: nausea and vomiting) cinacalcet 30 mg tablet 90 mg PO DAILY potassium chloride [K-Tab] 20 mEq Tablet Extended Release 40 meq PO DAILY Qty: 15 0RF escitalopram oxalate 10 mg tablet 10 mg PO DAILY torsemide 100 mg tablet See Rx Instructions .ROUTE .COMPLEX Qty: 30 11RF Dose Instruction: TAKE 1 TABLET BY MOUTH EVERY MORNING Rx Instructions: TAKE 1 TABLET BY MOUTH EVERY MORNING diphenoxylate-atropine 2.5-0.025 mg tablet 1 tablet PO QID PRN (Reason: diarrhea) Qty: 60 0RF gabapentin 300 mg capsule See Rx Instructions .ROUTE .COMPLEX Qty: 270 1RF Dose Instruction: TAKE 1 CAPSULE BY MOUTH THREE TIMES DAILY Rx Instructions: TAKE 1 CAPSULE BY MOUTH THREE TIMES DAILY buspirone 10 mg tablet See Rx Instructions .ROUTE .COMPLEX Qty: 90 0RF Dose Instruction: TAKE 1 TABLET BY MOUTH THREE TIMES DAILY Rx Instructions: TAKE 1 TABLET BY MOUTH THREE TIMES DAILY hydrocodone-acetaminophen 5-325 mg tablet 1 tablet PO Q8H PRN (Reason: Pain Rated 4-10) Qty: 90 0RF Follow-up/Referrals: Angella Han APRN [Primary Care Provider] - Time of Disposition: 12:15
== END 2024-09-02 12:16 | disposition home or self-care (01) ==
PROVIDERS: Emergency Provider Nurse Practitioner; PCP Nurse Practitioner Family
DX: H60.91 Unspecified otitis externa, right ear (principal); Z87.891 Personal history of nicotine dependence; I10 Essential (primary) hypertension; G62.9 Polyneuropathy, unspecified
CPT/HCPCS: 99213; G0463

== ENCOUNTER 2024-09-11 14:18 | Emergency (ER) | payer MEDICARE, MEDICAID, SELFPAY ==
--- OUTSIDE RECORDS SUMMARY | 2024-09-11 14:22 | XMS_ITS | Clinical Summary ---
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
--- OUTSIDE RECORDS SUMMARY | 2024-09-11 14:22 | XMS_ITS ---
Author Organization [facility] Address [address] [place] [address] Care Team Providers Care Glass Presser Name Role Phone Janet Moss RN Unavailable [phone] Quang Johnson DO Unavailable [phone] Angella Han NP Primary Care Provider [phone] Transplant Episode Kidney Candidate [facility] ([place], [place]) [facility] Center waitlisted on 08/24/2023 Marked as Inactive on 08/24/2023 Reason: 04 - Insurance Issues Kidney CoordinatorJanet Moss RN Fax: N/A Email: N/A Scores Score Value Updated Exceptions/Reas ons CPRA Not available EPTS (Calc) 32 09/11/2024 [place] Organ 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 Care Team Name Role Phone Fax Email Janet Moss RN Kidney Coordinator [phone] N/A N/A Xavier Marcus MD Referring Physician [phone] N/A Janet Muse Pet Groomer [phone] N/A N/A Events Pre-Transplant Referred: 10/05/2022 Evaluation began: 02/04/2023 Committee: 08/23/2023 UNOS qualified: 11/27/2021 Center waitlisted: 08/24/2023 Dialysis History Dialysis History Start End Type Comments Center 11/27/2021 Peritoneal [facility] Information Center Phone Fax Address [facility] [phone] [address] [facility] [address] [facility] [address]
--- OUTSIDE RECORDS SUMMARY | 2024-09-11 14:22 | XMS_ITS ---
Author Organization [facility] Address [address] [place] [address] Care Team Providers Care Rim Fire Charger Operator Name Role Phone Milo Morrell MD Primary Care Provider Unavail James [facility] [phone] REASON FOR VISIT High Risk Foot care Encounters Encounter Location Date Provider Diagnosis [facility] [address] [place] [phone] 06/30/2024 James Marcum Plan Of Treatment No Information Progress Notes * Andrea TOMOB:1969 (54 yo M)Acc No.[id number]:06/30/2024 Progress Note Patient: Real CABRERA Provider: Gabrielle Marcum DPM :1970 A ge:54 Y S ex:Male Date:06/30/2024 Address:[address] [place], [place] [id number] Pcp:Milo Morrell MD Subjective: * Chief Complaints: * 1 . High Risk Foot care. * Medical History: Objective: * Vitals: Assessment: Plan: * Treatment: * Images: * Electronic signature of James Marcum DPM on 09/11/2024 at 02:22 PM CDT Sign off status: Pending * Provider: Gabrielle Marcum DPM Date: 0 06/30/2024 Generated for Zuleika dodd/Stacie/Bryan on: 0 09/11/2024 02:22 PM CDT
--- OUTSIDE RECORDS SUMMARY | 2024-09-11 14:23 | XMS_ITS | Referral Summary ---
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 Gender Identity Not on file Sexual Orientation Not on file Last Filed Vital Signs Vital Sign Reading Time Taken Comments Blood Pressure 163/115 04/12/2023 8:12 AM SALES PROMOTION OFFICER Pulse 77 04/12/2023 8:12 AM SALES PROMOTION OFFICER Temperature 36.7 C (98.1 F) 04/05/2023 1:04 PM SALES PROMOTION OFFICER Respiratory Rate - - Oxygen Saturation - - Inhaled Oxygen Concentration - - Weight 112.5 kg (248 lb 0.3 oz) 04/12/2023 8:12 AM SALES PROMOTION OFFICER Height 175.3 cm (5' 9) 04/05/2023 1:04 PM SALES PROMOTION OFFICER Body Mass Index 36.63 04/05/2023 1:04 PM SALES PROMOTION OFFICER Plan of Treatment Not on file Procedures Procedure Name Priority Date/Time Associated Diagnosis Comments HLA ANTIBODY SCREEN - PRA (CLASS I AND CLASS II) Routine 07/27/2024 10:00 AM CDT ESRD (end stage renal disease) ([facility]) HLA ANTIBODY SCREEN BY PRA OR SAB PER SCHEDULE (CLASS I AND CLASS II) Routine 07/27/2024 10:00 AM CDT ESRD (end stage renal disease) (HCC) HEPATITIS C ANTIBODY Routine 04/05/2023 11:27 AM SALES PROMOTION OFFICER End stage renal disease (HCC) PSA SCREEN Routine 04/05/2023 11:27 AM SALES PROMOTION OFFICER End stage renal disease (HCC) from Last 3 Months or Most Recently Relevant to Health Maintenance Results * HLA Antibody Screen by PRA or SAB per Schedule (Class I and Class II) (07/27/2024 10:00 AM CDT) Blood 07/27/2024 10:0 0 AM CDT Narrative HISTOTR[facility] - SALES PROMOTION OFFICER Sample received in lab. PRA Screen ordered. [...] a method developed and validated by the [facility] HLA laboratory based on an FDA- approved IVD kit (LABScreen PRA, [employer], [place], [place]). Interpretive comments: The percentage of beads with MFI > 750 is reported, which indicates the percentage of donor population estimated to be incompatible with the patient tested. PRA > 0% is consistent with alloimmunization to HLA. Testing performed at the [facility] HLA Laboratory, [facility], 5th floor, [place], [address]. [facility] # [id number]. Breanne Nieto, Ph.D., Load Checker, HLA Laboratory Abdoulaye Kraft M.D., Ph.D., Reservoir Engineering Advisor, HLA Laboratory Denise Abreu, Ph.D., [place] Reservoir Engineering Advisor, [facility] Clinical Laboratories Current methodology and interpretive comments last revised on 06/16/2017. Alejo Florence MD LAB BLOOD ORDERABLES Final Resu lt [facility] * PSA screen (04/05/2023 11:27 AM SALES PROMOTION OFFICER) PSA-Total 0.28 <=3.90 ng/mL [facility] Comment: Interpretive Data AGE SEX REFERENCE INTERVAL [...] revised 21. Blood 04/05/2023 11:2 7 AM SALES PROMOTION OFFICER 04/05/2023 12:10 PM SALES PROMOTION OFFICER Narrative [facility] - 04/05/2023 12:57 PM SALES PROMOTION OFFICER This lab is being obtained as part of a Kidney transplant evaluation, is time sensitive, and should only be drawn during the evaluation visit at [facility] Lab. Abena Brown MD LAB BLOOD ORDERABL ES Final Result Performing Organization Address City/[facility]/ZIP Co de Phone Number [facility] Department [place] [address] * Hepatitis C antibody Blood (04/05/2023 11:27 AM SALES PROMOTION OFFICER) Hep C Ab Nonreactive Nonreactive [facility] Comment:Antibodies to HCV no t detected. Does NOT exclude the possibility of recent exposure to HCV. Current interpretive data was last revised on 21 Blood 04/05/2023 11:2 7 AM SALES PROMOTION OFFICER 04/05/2023 12:09 PM SALES PROMOTION OFFICER Narrative [facility] - 04/05/2023 1:03 PM SALES PROMOTION OFFICER This lab is being obtained as part of a Kidney transplant evaluation, is time sensitive, and should only be drawn during the evaluation visit at [facility] Lab. Abena Brown MD LAB MICROBIOLOGY - GENERAL ORDERABLES Final Result [facility] Department [place] [address] from Last 3 Months or Most Recently Relevant to Health Maintenance Insurance MEDICARE [facility] MEDICARE MEDICARE [place] Care Teams Director Visual Relationship Specialty Start Date End Date Angella Han NP [address] [facility] [address] [place], [place] [id number] PCP - General Nurse Practitioner 08/14/24 Janet Moss, RN [address] [facility] [address] [place] [address] Health Inspector 10/06/22 Quang Johnson DO [address] [place], [place] [id number] Referring Physician Internal Medicine 05/18/24
--- OUTSIDE RECORDS SUMMARY | 2024-09-11 14:23 | XMS_ITS | Clinical Summary ---
Author Organization [facility] Address [address] [place] [address] Care Team Providers Care Retail Shift Manager Name Role Phone Janet Moss RN Unavailable [phone] Quang Johnson DO Unavailable [phone] Angella Han NP Primary Care Provider [phone] Allergies No known active allergies Medications albuterol [...] - 07/27/2024 11:59 PM CDT Hospital Encounter [address] [address] ESRD (end stage renal disease) ([facility]) Discharge Disposition: Discharge to home [...] on file Legal Sex Male 9:46 AM FACT CHECKER Gender Identity Not on file Sexual Orientation Not on file Obstetrics History Last Filed Vital Signs Vital Sign Reading Time Taken Comments Blood Pressure 163/115 04/12/2023 8:12 AM FACT CHECKER Pulse 77 04/12/2023 8:12 AM FACT CHECKER Temperature 36.7 C (98.1 F) 04/05/2023 1:04 PM FACT CHECKER Respiratory Rate - - Oxygen Saturation - - Inhaled Oxygen Concentration - - Weight 112.5 kg (248 lb 0.3 oz) 04/12/2023 8:12 AM FACT CHECKER Height 175.3 cm (5' 9) 04/05/2023 1:04 PM FACT CHECKER Body Mass Index 36.63 04/05/2023 1:04 PM FACT CHECKER Plan of Treatment Health Maintenance Due Date [...] HEPATITIS C ANTIBODY Routine 04/05/2023 11:27 AM FACT CHECKER End stage renal disease (HCC) PSA SCREEN Routine 04/05/2023 11:27 AM FACT CHECKER End stage renal disease (HCC) from Last 3 Months or Most Recently Relevant to Health Maintenance Results * HLA Antibody Screen by PRA or SAB per Schedule (Class I and Class II) (07/27/2024 10:00 AM CDT) Blood 07/27/2024 10:0 0 AM CDT Narrative HISTOTRAC - FACT CHECKER Sample received in lab. PRA Screen ordered. [...] a method developed and validated by the [facility] HLA laboratory based on an FDA- approved IVD kit (LABScreen PRA, [employer], [facility] [place]). Interpretive comments: The percentage of beads with MFI > 750 is reported, which indicates the percentage of donor population estimated to be incompatible with the patient tested. PRA > 0% is consistent with alloimmunization to HLA. Testing performed at the [facility] HLA Laboratory, [address] [place] [address], 5th floor, [place], [address]. [facility] # [id number]. Breanne Nieto, Ph.D., Direct Service Professional, HLA Laboratory Abdoulaye Kraft M.D., Ph.D., Lawyer Probate, HLA Laboratory Denise Abreu, Ph.D., CLIA Lawyer Probate, [facility] Clinical Laboratories Current methodology and interpretive comments last revised on 06/16/2017. us Alejo Florence MD LAB BLOOD ORDERABLES Final Resu lt [facility] * PSA screen (04/05/2023 11:27 AM FACT CHECKER) PSA-Total 0.28 <=3.90 ng/mL [facility] Comment: Interpretive Data AGE SEX REFERENCE INTERVAL [...] revised 21. Blood 04/05/2023 11:2 7 AM FACT CHECKER 04/05/2023 12:10 PM FACT CHECKER Narrative [facility] - 04/05/2023 12:57 PM FACT CHECKER This lab is being obtained as part of a Kidney transplant evaluation, is time sensitive, and should only be drawn during the evaluation visit at [address] Lab. Abena Brown MD LAB BLOOD ORDERABL ES Final Result Performing Organization Address [facility] de Phone Number [facility] [place] [address] * Hepatitis C antibody Blood (04/05/2023 11:27 AM FACT CHECKER) Pathologist [facility] Hep C Ab Nonreactive Nonreactive [facility] Comment:Antibodies to HCV no t detected. Does NOT exclude the possibility of recent exposure to HCV. Current interpretive data was last revised on 21 Blood 04/05/2023 11:2 7 AM FACT CHECKER 04/05/2023 12:09 PM FACT CHECKER Narrative [facility] - 04/05/2023 1:03 PM FACT CHECKER This lab is being obtained as part of a Kidney transplant evaluation, is time sensitive, and should only be drawn during the evaluation visit at [address] Abena Brown MD LAB MICROBIOLOGY - GENERAL ORDERABLES Final Result Performing Organization Address City/[facility] Co de Phone Number [facility] [place] [address] from Last 3 Months or Most Recently Relevant to Health Maintenance Insurance MEDICARE [facility] MEDICARE MEDICARE IDPA [address] [place] [address] Care Teams Retail Shift Manager Relationship Specialty Start Date End Date Angella Han NP [address] [place], [place] [id number] PCP - General Nurse Practitioner 08/14/24 Janet Moss, RN [address] [facility] [address] [place] [address] Phototypesetter Operator 10/06/22 Quang Johnson DO [address] [place] [address] Referring Physician Internal Medicine 05/18/24
--- OUTSIDE RECORDS SUMMARY | 2024-09-11 14:23 | XMS_ITS ---
Author Organization [facility] Address [address] [address] Care Team Providers Care Senior Chemical Engineer Name Role Phone Milo Morrell MD Primary Care Provider Unavail able James Marcum [facility] [phone] REASON FOR VISIT High Risk Foot care Encounters Encounter Location Date Provider Diagnosis 1 [facility] [address] [address] 04/21/2024 James Marcum Idiopathic progressi ve neuropathy [...] Detail Notes PALLIATIVE FOOT CARE: Nail debride (56224): Debr idement of at least six mycotic and/or hypertrophic nails performed:, utilizing manual and electric debridement the affected nails were reduced the nails in length and thickness with curettage of debris from nail margins performed as needed. Nail thickness reduced by:, 10% Progress Notes * Andrea TOMOB:1969 (54 yo M)Acc No.[id number]:04/21/2024 Progress Note Patient: Real CABRERA Provider: Gabrielle Marcum DPM :1970 A ge:54 Y S ex:Male Date:04/21/2024 Address:[address] [place], [place] [id number] Pcp:Milo Morrell MD Subjective: * Chief Complaints: [...] suspicious lesions, bilateral. Nails: N ail plates of:[id number] relatively thickened, dystrophic, discolored, incurvated. . Hyperkeratotic [...] Procedures: P ALLIATIVE FOOT CARE:: Nail debride (17825): D ebridement of at least six mycotic [...] 04/21/2024 Generated for Zuleika dodd/Stacie/Bryan on: 0 09/11/2024 02:22 PM CDT History and Physical Notes * [...]
--- OUTSIDE RECORDS SUMMARY | 2024-09-11 14:23 | XMS_ITS | Patient Health Record ---
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 Problem Carlson's neuroma of left foot (114202899545135) Carlson's neuroma of left 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) Active confirmed Problem Lumbar radiculopathy (750306511) Lumbar radiculopathy (M54.16) Active confirmed Problem Autoimmune disease (36589523) Autoimmune disease (M35.9) Active confirmed Problem Autoimmune disorder (04426662) Autoimmune disorder (D89.89) Active confirmed Vital Signs Height 70 in 04/28/2024 Weight 240 lbs 04/28/2024 BMI 34.43 kg/m2 04/28/2024 Encounters Encounter Location Date Provider Diagnosis 1 OF [facility] [address] [address] 04/28/2024 James Marcum Idiopathic progressi ve neuropathy [...] Medicare [address] [place], [place] [id number] Real Norton Self - patient is the insured [facility] [address] [address] [place] [address] [id number] Real Norton Self - patient is the insured Medical (General) History Medical History History ICD Code depression Dialysis High Blood Pressure kidney disease Surgical History Surgery Date(Month/Year) colonscopy 03/2023
[2024-09-11 14:28] VITALS: BP 176/106; PULSE 91; RESP 20; TEMP 36.6; O2SAT 97
--- NOTE | 2024-09-11 14:42 | ED.EAR ---
HPI - Ear Problem General Chief complaint: Ear Stated complaint: RT Ear Pain Time Seen by Provider: 09/11/24 14:29 Source: patient and RN notes reviewed Mode of arrival: ambulatory Limitations: no limitations History of Present Illness HPI Narrative: Patient presents today complaining of right ear pain x 2+ weeks. He was initially seen here at [facility] on 09/02/2024 and diagnosed with right otitis externa and subsequently prescribed neomycin-polymyxin drops. Patient states symptoms improved but then worsened again last night and now radiate to the right lower jaw and include decreased hearing. He also reports that he has a right-sided sore throat that is only present with swallowing/coughing. He has taken Tylenol without improvement. History of end-stage renal disease with peritoneal dialysis. Related Data Home Medications ?Medication ?Instructions ?Recorded ?Confirmed ?Last Taken ?Type gentamicin 0.1 % topical cream 1 applic topical TID PRN DIALYSIS 08/31/22 08/15/24 09/27/23 History CATH. calcium carbonate (Tums) 200 mg PO HS PRN Indigestion 07/20/23 08/15/24 09/27/23 History cinacalcet 30 mg tablet 90 mg PO DAILY 07/20/23 08/15/24 09/27/23 History multivitamin 1 tablet PO DAILY 07/29/23 08/15/24 10/05/23 History ferric citrate 210 mg iron tablet 210 mg PO TIDWM 09/28/23 08/15/24 Unknown History (Auryxia) escitalopram oxalate 10 mg tablet 10 mg PO DAILY 03/09/24 08/15/24 Unknown History albuterol sulfate 90 mcg/actuation 2 inh inhalation QID PRN shortness 03/29/24 08/15/24 Unknown History aerosol inhaler of breath or wheezing calcium acetate(phosphat bind) 667 2,668 mg PO TIDWM 03/29/24 08/15/24 Unknown History mg capsule melatonin 10 mg capsule 10 mg PO HS 03/29/24 08/15/24 Unknown History ondansetron 4 mg disintegrating 8 mg translingual Q8H PRN nausea 03/29/24 08/15/24 Unknown History tablet and vomiting Allergies Allergy/AdvReac Type Severity Reaction Status Date / Time No Known Allergies Allergy Verified 09/11/24 14:20 [facility] Past Medical History Medical History Peritoneal dialysis catheter in place Polyneuropathy HTN (hypertension) Vitamin D3 deficiency Surgical History Surgical History History of appendectomy Family History Family History Father Hypertension Social History Social History Social History: Lives alone in an apartment. No pets. Smoking packs per day: 1.5 Smoking cigarettes per day: 30.0 Years smoked: 20 Smoking pack-years: 30.00 Smoking status: Former smoker Tobacco type: cigarettes Alcohol intake: current Alcohol use details: rarely Substance use: current Substance use type: marijuana Other substance usage details: OCCASIONAL Do You Feel Safe in your Home?: Yes Lack of Transportation: No Lack of Food: Often True Current Housing: I Have Housing Concerned About Future Housing: No Difficulty Paying Gas/Electric Bills: YES Difficulty Paying for Meds: No Currently Unemployed: No Education: Bachelor's Degree Difficulty w/ Childcare or Family Care: No Living arrangements: with family Occupation/Education: unemployed Gender identity (if verbalized by the patient): Male Sexual Orientation (if Verbalized by the Patient): Straight or Heterosexual Spiritual care concerns: No Agree to blood products: Yes Comments At time of signature, I have reviewed and agree with nursing past medical, surgical, social and family history unless otherwise noted. Please see nursing chart for further information. There is no relevant family history pertinent to the presenting complaint Exam Narrative: GENERAL: Chronically ill-appearing, well-nourished, generalized skin pallor HEAD: Normocephalic, atraumatic. EYES: EOMI. No redness or drainage. Conjunctivae normal. ENT: Mucous membranes pink and moist. Nares clear. Left canal and TM normal. Right ear: TM normal. Canal mild to moderately swollen and mildly erythematous with mild amount of white debris. Canal moist. No movement or tragal tenderness. No tenderness of the mastoid process. Throat very mildly erythematous without edema or exudate. Uvula midline NECK: Normal AROM. Supple. No lymphadenopathy. CHEST: No respiratory distress. EXTREMITIES: Normal range of motion. No edema. SKIN: Warm, dry, no rash. Capillary refill normal. Normal skin turgor. NEURO: No focal deficits. Alert and oriented x3. Gait steady. PSYCH: Normal affect. No signs of depression or anxiety. Course Course Level of Care: [facility] Visit Vital Signs Vital signs: Vital Signs Temperature 97.8 F 09/11/24 14:28 Pulse Rate 91 09/11/24 14:28 Respiratory Rate 20 09/11/24 14:28 Blood Pressure 176/106 H 09/11/24 14:28 Pulse Oximetry 97 09/11/24 14:28 Oxygen Delivery Room Air 09/11/24 14:28 Temperature 97.8 F 09/11/24 14:28 Pulse Rate 91 09/11/24 14:28 Respiratory Rate 20 09/11/24 14:28 Blood Pressure 176/106 H 09/11/24 14:28 Pulse Oximetry 97 09/11/24 14:28 Oxygen Delivery Room Air 09/11/24 14:28 Reviewed Medical Decision Making MDM Narrative Medical decision making narrative: 54-year-old male patient with a history of end-stage renal disease on peritoneal dialysis presents today with an approximate 2 week history of right ear pain with right-sided sore throat that started last night that is only present with swallowing or coughing. Patient was treated for right otitis externa here at [facility] on 09/02/2024 with a prescription for neomycin-polymyxin drops. States initially the symptoms improved for a few days then worsened again. Hearing is muffled and last night the pain started radiating to the jaw. He has been taking Tylenol for pain without much improvement. Denies fever. Upon exam, patient continues to have an otitis externa without mastoid tenderness. He has some irritation in the throat with a negative rapid strep today. Throat and jaw pain is likely referred from the ear. Which changes ear drops to ciprofloxacin-dexamethasone. Also recommend follow-up with ENT if these symptoms do not improve. Vital signs stable except for elevated blood pressure which patient is aware of. States this is around his baseline. Anticipatory guidance given. Differential Diagnosis Differential Diagnosis: Otitis media, otitis externa, pharyngitis, strep throat Vital Signs Vital Signs: Vital Signs Temperature 97.8 F 09/11/24 14:28 Pulse Rate 91 09/11/24 14:28 Respiratory Rate 20 09/11/24 14:28 Blood Pressure 176/106 H 09/11/24 14:28 Pulse Oximetry 97 09/11/24 14:28 Oxygen Delivery Room Air 09/11/24 14:28 Temperature 97.8 F 09/11/24 14:28 Pulse Rate 91 09/11/24 14:28 Respiratory Rate 20 09/11/24 14:28 Blood Pressure 176/106 H 09/11/24 14:28 Pulse Oximetry 97 09/11/24 14:28 Oxygen Delivery Room Air 09/11/24 14:28 Lab Data Labs: Lab Results 09/11/24 Range/Units 14:50 POC Grp A Strep Screen Negative (Negative) Critical Care Time Critical Care Time Critical Care Time: No Discharge Plan Discharge Clinical Impression: Otitis externa of right ear Qualifiers: Otitis externa type: unspecified type Chronicity: acute Qualified Code(s): H60.501 - Unspecified acute noninfective otitis externa, right ear Patient Disposition: Home Condition: Stable Instructions: Antibiotic Form, Swimmer's Ear (GEN) Additional Instructions: You have a persistent infection in your ear canal. Please use the ear drops as directed. Keep the ears dry as possible. Do not submerge your head in standing water such as pools, hot tubs, lakes, bathtubs, until the infection has resolved. Showering is fine. Do not use anything in the ear that can be irritating such as Q-tips, ear plugs, ear buds. Take Tylenol for pain, if able. Follow-up with your PCP or ear nose and throat doctor in 3 days if symptoms are not improving. Patient Language: Swiss Prescriptions: New ciprofloxacin-dexamethasone 0.3-0.1 % drops,suspension 4 drp RIGHT EAR Q12H 7 Days Qty: 7.5 0RF No Action oujbzaye-bzuzrdnkz-AJ 3.5-10,000-1 mg/mL-unit/mL-% drops,suspension 4 drop RIGHT EAR Q8H 7 Days Qty: 10 0RF gentamicin 0.1 % cream 1 applic topical TID PRN (Reason: DIALYSIS CATH.) calcium carbonate [Tums] 200 mg calcium (500 mg) tablet,chewable 200 mg PO HS PRN (Reason: Indigestion) omeprazole 20 mg capsule,delayed release(DR/EC) 20 mg PO DAILY Qty: 90 1RF nortriptyline 50 mg capsule 50 mg PO DAILY Qty: 90 1RF carvedilol 25 mg tablet 25 mg PO Q12H Qty: 60 5RF Rx Instructions: must administer with a meal/food multivitamin Tablet 1 tablet PO DAILY Entresto 49-51 mg tablet 1 tablet PO BID Qty: 60 5RF dapagliflozin propanediol [Farxiga] 10 mg tablet 10 mg PO DAILY Qty: 30 5RF Auryxia 210 mg iron Tablet 210 mg PO TIDWM Rx Instructions: administer with a meal melatonin 10 mg capsule 10 mg PO HS albuterol sulfate 90 mcg/actuation HFA aerosol inhaler 2 inh INHALATION QID PRN (Reason: shortness of breath or wheezing) calcium acetate(phosphat bind) 667 mg capsule 2,668 mg PO TIDWM ondansetron 4 mg tablet,disintegrating 8 mg translingual Q8H PRN (Reason: nausea and vomiting) cinacalcet 30 mg tablet 90 mg PO DAILY potassium chloride [K-Tab] 20 mEq Tablet Extended Release 40 meq PO DAILY Qty: 15 0RF escitalopram oxalate 10 mg tablet 10 mg PO DAILY torsemide 100 mg tablet See Rx Instructions .ROUTE .COMPLEX Qty: 30 11RF Dose Instruction: TAKE 1 TABLET BY MOUTH EVERY MORNING Rx Instructions: TAKE 1 TABLET BY MOUTH EVERY MORNING diphenoxylate-atropine 2.5-0.025 mg tablet 1 tablet PO QID PRN (Reason: diarrhea) Qty: 60 0RF gabapentin 300 mg capsule See Rx Instructions .ROUTE .COMPLEX Qty: 270 1RF Dose Instruction: TAKE 1 CAPSULE BY MOUTH THREE TIMES DAILY Rx Instructions: TAKE 1 CAPSULE BY MOUTH THREE TIMES DAILY hydrocodone-acetaminophen 5-325 mg tablet 1 tablet PO Q8H PRN (Reason: Pain Rated 4-10) Qty: 90 0RF buspirone 10 mg tablet See Rx Instructions .ROUTE .COMPLEX Qty: 90 0RF Dose Instruction: TAKE 1 TABLET BY MOUTH THREE TIMES DAILY Rx Instructions: TAKE 1 TABLET BY MOUTH THREE TIMES DAILY Follow-up/Referrals: Alejandro Man MD [Physician] - Deangelo Mcfarland MD [Physician] - Angella Han APRN [Primary Care Provider] - Time of Disposition: 14:59
[2024-09-11 14:55] LABS: EDSTREPNEGPOS1 Negative (Negative)
== END 2024-09-11 15:00 | disposition home or self-care (01) ==
PROVIDERS: Emergency Provider Nurse Practitioner; PCP Nurse Practitioner Family
DX: H60.501 Unspecified acute noninfective otitis externa, right ear (principal); I12.0 Hypertensive chronic kidney disease with stage 5 chronic kidney disease or end stage renal disease; N18.6 End stage renal disease; Z99.2 Dependence on renal dialysis; G62.9 Polyneuropathy, unspecified; Z87.891 Personal history of nicotine dependence
CPT/HCPCS: 87880; 99213; G0463

== ENCOUNTER 2024-09-14 15:40 | Inpatient (IN) | payer MEDICARE, MEDICAID, SELFPAY ==
[2024-09-14] VITALS (23 sets, daily range): BP systolic 153–205; BP diastolic 89–149; PULSE 77–92; RESP 15–25; TEMP 36.6–36.7; O2SAT 92–100; BMI 39.9
--- NOTE | ~2024-09-14 | XR_ITS ---
EXAMINATION: XR chest 1V portable Exam Date/Time: 09/17/2024 14:50 CDT HISTORY: sob Comparison: 09/14/2024; CT chest 07/25/2024. RESULT: Lines, tubes, and devices: None. Lungs and pleura: Mild diffuse reticular opacities. Multiple pulmonary nodules were better seen by p rior CT. Cardiomediastinal silhouette: Stable. Other: No acute osseous or upper abdominal finding. IMPRESSION: Mild interstitial edema. Multiple pulmonary nodules which are better seen by prior CT. Reviewed, dictated and finalized at location K. IMPRESSION: Mild interstitial edema. Multiple pulmonary nodules which are better seen by pr ior CT.
--- NOTE | ~2024-09-14 | CT_ITS ---
EXAMINATION: CT brain wo con DATE: 09/17/2024 19:57 INDICATION: lethargic . TECHNIQUE: Computed tomography (CT) of the head was performed without intravenous contrast. The mA wa s adjusted according to patient size. Iterative reconstruction technique was employed. The dose-lengt h product was 681.00 mGy-cm. COMPARISON: 09/15/2024. FINDINGS: No acute intracranial hemorrhage or extra-axial fluid collection. No hydrocephalus, mass, or herniation. No acute ischemic infarct. Unremarkable dural venous sinus attenuation. No acute osseous abnormality. Ethmoid bilateral sphenoid, and bilateral maxillary mucosal thickening, right mastoid air cells opaci fied with right middle ear fluid, the remaining aerated spaces are clear. Mild atrophy and chronic white matter change. Atherosclerotic intracranial calcification. Right lens replacement. Minimal bilateral basal ganglia calcification. Focal old right thalamic infarct. IMPRESSION: No acute intracranial process. Right mastoid effusion and middle ear fluid, correlate for clinical findings of otomastoiditis. Reviewed, dictated and finalized at location K.
--- NOTE | ~2024-09-14 | CT_ITS ---
CLINICAL INDICATION: Diminished ultrafiltration despite ongoing peritoneal dialysis COMPARISON: 03/28/2024. TECHNIQUE: Multiple contiguous axial images of the abdomen and pelvis were performed without the admi nistration of intravenous contrast The dose-length product (DLP) was 1446.14 mGy-cm. Automated exposure control and iterative reconstruction technique were employed. FINDINGS/OBSERVATIONS: Visualized lower thorax: Bibasilar atelectasis. The remainder of the bilateral lung bases are clear. The heart is borderline enlarged, without pericardial effusion. Small hiatal hernia is present. Liver: The liver demonstrates homogeneous attenuation and is enlarged measuring 20 cm in longitudinal dimens ion. Gallbladder and biliary system: The gallbladder is distended with layering sludge, and otherwise unremarkable. Pancreas: Limited evaluation of the pancreas secondary to the lack of intravenous contrast. Spleen: The spleen demonstrates homogeneous attenuation and is not enlarged. Kidneys: The bilateral kidneys are atrophic, consistent with patient's history. Adrenal glands: Unremarkable. Gastrointestinal tract: Fecal stasis within the colon. Appendix: The appendix is not definitively visualized. However, no pericecal inflammatory change is identified suggest the presence of acute appendicitis. Vasculature: Densely calcified atherosclerotic disease. Lymph nodes: Limited evaluation without intravenous contrast. Pelvic structures: The bladder is decompressed with a Velarde catheter, limiting its evaluation. The prostate gland is not enlarged. Free fluid is identified within the abdomen, demonstrating simple attenuation. Peritoneal dialysis catheter enters the abdomen from the left lower quadrant, and is coiled within th e deep pelvis. This positioning is unchanged from prior examination dated 03/28/2024. Body wall and musculoskeletal: Small fat-containing umbilical hernia. Age-appropriate degenerative disease within the lumbosacral spine. IMPRESSION: Peritoneal dialysis catheter coiled within simple fluid in the deep pelvis, unchanged in position fro m 03/28/2024. Layering sludge within the gallbladder. Atrophic bilateral kidneys, consistent with patient's history. Hepatomegaly Reviewed, dictated and finalized at location A. IMPRESSION: Peritoneal dialysis catheter coiled within simple fluid in the deep pelvis, unc hanged in position from 03/28/2024. Layering sludge within the gallbladder. Atrophic bilateral kidneys, consistent with patient's history. Hepatomegaly
--- NOTE | ~2024-09-14 | CT_ITS ---
EXAMINATION: CT BRAIN W/O DATE: 09/15/2024 03:29 INDICATION: Altered mental status TECHNIQUE: Computed tomography (CT) of the head was performed without intravenous contrast. The dose- length product was 681.00 mGy-cm. Automated exposure control and iterative reconstruction technique w ere employed. COMPARISON: CT dated 03/29/2024 FINDINGS: There is a chronic right thalamic infarction. No acute infarction, hemorrhage, mass or mass effect. No ventriculomegaly. There is intracranial atherosclerosis. No ventriculomegaly or midline shift. Midline sagittal images demonstrate a normal corpus callosum, c raniovertebral junction and sella turcica. Basilar cisterns are patent. There is mucosal thickening of the maxillary, ethmoidal, sphenoid and frontal sinuses. There is right mastoid effusion. IMPRESSION: 1. No acute intracranial abnormality. 2: Moderate sinus disease with right mastoid effusion. 3: Chronic right thalamic infarction. Reviewed, dictated and finalized at location A.
--- NOTE | ~2024-09-14 | XR_ITS ---
EXAMINATION: XR chest 1V portable DATE: 09/14/2024 17:53 INDICATION: Shortness of breath TECHNIQUE: frontal view of the chest was obtained. COMPARISON: Chest radiograph dated 04/06/2024 FINDINGS: Increased interstitial opacities in the bilateral mid and lower lung zones in favor mild pulmonary ed arlene over pneumonia. Unchanged mild linear discoid atelectasis/scarring at left lower lung zone. No pl eural effusion or pneumothorax. Arch size is normal. Right rotator cuff calcific tendinitis. IMPRESSION: 1. Increased interstitial pattern in the bilateral mid and lower lung zones and favor mild pulmonary edema over pneumonia. Reviewed, dictated and finalized at location A.
--- OUTSIDE RECORDS SUMMARY | 2024-09-14 15:43 | XMS_ITS ---
Author Organization 1 OF [facility] Address [address] [place] [address] Care Team Providers Care Rn Gastroenterology Name Role Phone Milo Morrell MD Primary Care Provider Unavail James Xiao [facility] [phone] REASON FOR VISIT High Risk Foot care Encounters Encounter Location Date Provider Diagnosis 1 OF [facility] [address] [place] [address] 06/30/2024 James Marcum Plan Of Treatment No Information Progress Notes * Andrea TOMOB:1969 (54 yo M)Acc No.[id number]:06/30/2024 Progress Note Patient: Real CABRERA Provider: Gabrielle Marcum DPM :1970 A ge:54 Y S ex:Male Date:06/30/2024 Address:[address] [place], [place] [id number] Pcp:Milo Morrell MD Subjective: * Chief Complaints: * 1 . High Risk Foot care. * Medical History: Objective: * Vitals: Assessment: Plan: * Treatment: * Images: * Electronic signature of James Marcum DPM on 09/14/2024 at 03:42 PM CDT Sign off status: Pending * Provider: Gabrielle Marcum DPM Date: 0 06/30/2024 Generated for Zuleika dodd/Stacie/Bryan on: 0 09/14/2024 03:42 PM CDT
--- OUTSIDE RECORDS SUMMARY | 2024-09-14 15:43 | XMS_ITS ---
Author Organization 1 OF Renzo alexander [facility] Address [address] [address] Care Team Providers Care Machine Rope Maker Name Role Phone Milo Morrell MD Primary Care Provider Unavail able James Marcum [facility] [phone] REASON FOR VISIT High Risk Foot care Encounters Encounter Location Date Provider Diagnosis 1 OF Renzo Damian [facility] [address] [address] 04/21/2024 James Marcum Idiopathic progressi ve neuropathy [...] Detail Notes PALLIATIVE FOOT CARE: Nail debride (40493): Debr idement of at least six mycotic and/or hypertrophic nails performed:, utilizing manual and electric debridement the affected nails were reduced the nails in length and thickness with curettage of debris from nail margins performed as needed. Nail thickness reduced by:, 10% Progress Notes * Andrea TOMOB:1969 (54 yo M)Acc No.[id number]:04/21/2024 Progress Note Patient: Real CABRERA Provider: Gabrielle Marcum DPM :1970 A ge:54 Y S ex:Male Date:04/21/2024 Address:[address] [place], [place] [id number] Pcp:Milo Morrell MD Subjective: * Chief Complaints: [...] suspicious lesions, bilateral. Nails: N ail plates of:TA-L1bxlqby relatively thickened, dystrophic, discolored, incurvated. . Hyperkeratotic [...] Procedures: P ALLIATIVE FOOT CARE:: Nail debride (68012): D ebridement of at least six mycotic [...] of James Marcum DPM on 09/14/2024 at 03:43 PM CDT Sign off status: Pending * Provider: Gabrielle Marcum DPM Date: 0 04/21/2024 Generated for Zuleika dodd/Stacie/Bryan on: 0 09/14/2024 03:43 PM CDT History and Physical Notes * [...]
--- OUTSIDE RECORDS SUMMARY | 2024-09-14 15:43 | XMS_ITS ---
Author Organization [facility] Address [address] [place] [address] Care Team Providers Care Factory Representative Name Role Phone Janet Moss RN Unavailable [phone] Quang Johnson DO Unavailable [phone] Angella Han NP Primary Care Provider [phone] Transplant Episode Kidney Candidate [facility] ([place], [place]) [facility] Center waitlisted on 08/24/2023 Marked as Inactive on 08/24/2023 Reason: 04 - Insurance Issues Kidney CoordinatorJanet Moss RN Fax: N/A Email: N/A Scores Score Value Updated Exceptions/Reas ons CPRA Not available EPTS (Calc) 32 09/14/2024 Venetie Organ 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 Care Team Name Role Phone Fax Email Janet Moss RN Kidney Coordinator [phone] N/A N/A Xavier Marcus MD Referring Physician [phone] N/A Janet Muse Ecommerce Project Manager [phone] N/A N/A Events Pre-Transplant Referred: 10/05/2022 Evaluation began: 02/04/2023 Committee: 08/23/2023 UNOS qualified: 11/27/2021 Center waitlisted: 08/24/2023 Dialysis History Dialysis History Start End Type Comments Center 11/27/2021 Peritoneal [facility] Information Center Phone Fax Address [facility] [phone] [address] [facility] [address] [facility] [address]
--- OUTSIDE RECORDS SUMMARY | 2024-09-14 15:43 | XMS_ITS | Clinical Summary ---
Author Organization [facility] Address [address] [place] [address] Care Team Providers Care Physical Scientist Name Role Phone Janet Moss RN Unavailable [phone] Quang Johnson DO Unavailable [phone] Angella Han NP Primary Care Provider [phone] Allergies No known active allergies Medications albuterol [...] Encounters Date Type Department Care Team Description 09/13/2024 Telephone [facility] Scheduling [address] [place] [address] Scar Carroll MD PhD Scheduling Appointments 07/27/2024 10:00 AM CDT - 07/27/2024 11:59 PM CDT Hospital Encounter [facility] [address] [place] [address] ESRD (end stage renal disease) ([facility]) Discharge Disposition: Discharge to home [...] on file Legal Sex Male 9:46 AM 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 Gender Identity Not on file Sexual Orientation Not on file Obstetrics History Last Filed Vital Signs Vital Sign Reading Time Taken Comments Blood Pressure 163/115 04/12/2023 8:12 AM 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 Pulse 77 04/12/2023 8:12 AM 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 Temperature 36.7 C (98.1 F) 04/05/2023 1:04 PM 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 Respiratory Rate - - Oxygen Saturation - - Inhaled Oxygen Concentration - - Weight 112.5 kg (248 lb 0.3 oz) 04/12/2023 8:12 AM 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 Height 175.3 cm (5' 9) 04/05/2023 1:04 PM 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 Body Mass Index 36.63 04/05/2023 1:04 PM 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 Plan of Treatment Health Maintenance Due Date [...] HEPATITIS C ANTIBODY Routine 04/05/2023 11:27 AM 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 End stage renal disease (HCC) PSA SCREEN Routine 04/05/2023 11:27 AM 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 End stage renal disease (HCC) from Last 3 Months or Most Recently Relevant to Health Maintenance Results * HLA Antibody Screen by PRA or SAB per Schedule (Class I and Class II) (07/27/2024 10:00 AM CDT) Blood 07/27/2024 10:0 0 AM CDT Narrative HISTOTRAC - 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 Sample received in lab. PRA Screen ordered. [...] a method developed and validated by the [facility] HLA laboratory based on an FDA- approved IVD kit (LABScreen PRA, [employer], [facility] [place]). Interpretive comments: The percentage of beads with MFI > 750 is reported, which indicates the percentage of donor population estimated to be incompatible with the patient tested. PRA > 0% is consistent with alloimmunization to HLA. Testing performed at the [facility], [address] [place] [address], 5th floor, [place], [address]. [place] # [id number]. Breanne Nieto, Ph.D., Polishing Machine Tender, HLA Laboratory Abdoulaye Kraft M.D., Ph.D., Regrinder, HLA Laboratory Denise Abreu, Ph.D., CLIA Regrinder, [facility] Clinical Laboratories Current methodology and interpretive comments last revised on 06/16/2017. us Alejo Florence MD LAB BLOOD ORDERABLES Final Resu lt HISTOTRAC * PSA screen (04/05/2023 11:27 AM 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) Pathologist [facility] PSA-Total 0.28 <=3.90 ng/mL [facility] Comment: Interpretive Data AGE SEX REFERENCE INTERVAL [...] revised 21. Blood 04/05/2023 11:2 7 AM 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 04/05/2023 12:10 PM 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 Narrative [facility] - 04/05/2023 12:57 PM 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 This lab is being obtained as part of a Kidney transplant evaluation, is time sensitive, and should only be drawn during the evaluation visit at [address] Lab[address] Abena Brown MD LAB BLOOD ORDERABL ES Final Result Performing Organization Address [facility] Co de Phone Number [facility] [place] [address] * Hepatitis C antibody Blood (04/05/2023 11:27 AM 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) Hep C Ab Nonreactive Nonreactive [facility] Comment:Antibodies to HCV no t detected. Does NOT exclude the possibility of recent exposure to HCV. Current interpretive data was last revised on 21 Blood 04/05/2023 11:2 7 AM 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 04/05/2023 12:09 PM 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 Narrative [facility] - 04/05/2023 1:03 PM 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 This lab is being obtained as part of a Kidney transplant evaluation, is time sensitive, and should only be drawn during the evaluation visit at [address] Abena Brown MD LAB MICROBIOLOGY - GENERAL ORDERABLES Final Result Performing Organization Address City/[facility]/ZIP Co de Phone Number [facility] [place] [address] from Last 3 Months or Most Recently Relevant to Health Maintenance Insurance MEDICARE [employer] MEDICARE MEDICARE IDPA [address] [facility] [place] [id number] Care Teams Physical Scientist Relationship Specialty Start Date End Date Angella Han NP [address] [place] [address] PCP - General Nurse Practitioner 08/14/24 Janet Moss, RN [address] [facility] [address] [place] [address] Medical Laboratory Technicians 10/06/22 Quang Johnson DO [address] [place], [place] [id number] Referring Physician Internal Medicine 05/18/24
--- OUTSIDE RECORDS SUMMARY | 2024-09-14 15:43 | XMS_ITS | Encounter Summary ---
Author Organization [facility] Address [address] [place] [address] Phone Care Team Providers Care Network Admin Name Role Phone Janet Moss RN Unavailable [phone] Alex Quang Anais DO Unavailable [phone] Angella Han LEAN CONSULTANT Primary Care Provider [phone] Reason for Visit * Reason Onset Date Comments Scheduling Appointments 09/13/2024 Encounter Details Date Type Department Care Team (Late st Contact Info) Description 09/13/2024 Telephone [facility] Scheduling [address] [place] [address] Scar Carroll MD PhD [address] [place] [address] Scheduling Appointments Social History Tobacco Use Types Packs/Day Years Used Date Smoking Tobacco: Every Day Cigarettes 0.3 15 Sex and Gender Information Value Date Recorded Sex Assigned at Not on file 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 Gender Identity Not on file Sexual Orientation Not on file documented as of this encounter Miscellaneous Notes * Telephone Encounter - Bridget Hamilton - 09/13/2024 9:54 AM CDT Lvm to confirm Aug appt documented in this encounter Plan of Treatment Not on file documented as of this encounter Visit Diagnoses Not on filedocumented in this encounter Care Teams Network Admin Relationship Specialty Start Date End Date Angella Han NP [address] [facility] [address] [place] [address] PCP - General Nurse Practitioner 08/14/24 Janet Moss, RN [address] [facility] [address] [place] [address] Planting Machine Crewman 10/06/22 Quang Johnson DO [address] [place] [address] Referring Physician Internal Medicine 05/18/24 documented as of this encounter
--- OUTSIDE RECORDS SUMMARY | 2024-09-14 15:43 | XMS_ITS | Referral Summary ---
Author Organization [facility] Address [address] [place] [address] Care Team Providers Care Assistant Associate Professor Name Role Phone Janet Moss RN Unavailable [phone] Quang Johnson DO Unavailable [phone] Angella Han NP Primary Care Provider [phone] Encounters Date Type Department Care Team Description 09/13/2024 Telephone [facility] Scheduling [address] [place] [address] Scar Carroll MD PhD Scheduling Appointments 07/27/2024 10:00 AM CDT - 07/27/2024 11:59 PM CDT Hospital Encounter [facility] [address] [place] [address] ESRD (end stage renal disease) ([facility]) Discharge Disposition: Discharge to home or [...] on file 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 Gender Identity Not on file Sexual Orientation Not on file Last Filed Vital Signs Vital Sign Reading Time Taken Comments Blood Pressure 163/115 04/12/2023 8:12 AM TIRE CENTER SUPERVISOR Pulse 77 04/12/2023 8:12 AM TIRE CENTER SUPERVISOR Temperature 36.7 C (98.1 F) 04/05/2023 1:04 PM TIRE CENTER SUPERVISOR Respiratory Rate - - Oxygen Saturation - - Inhaled Oxygen Concentration - - Weight 112.5 kg (248 lb 0.3 oz) 04/12/2023 8:12 AM TIRE CENTER SUPERVISOR Height 175.3 cm (5' 9) 04/05/2023 1:04 PM TIRE CENTER SUPERVISOR Body Mass Index 36.63 04/05/2023 1:04 PM TIRE CENTER SUPERVISOR Plan of Treatment Not on file Procedures [...] HEPATITIS C ANTIBODY Routine 04/05/2023 11:27 AM TIRE CENTER SUPERVISOR End stage renal disease (HCC) PSA SCREEN Routine 04/05/2023 11:27 AM TIRE CENTER SUPERVISOR End stage renal disease (HCC) from Last 3 Months or Most Recently Relevant to Health Maintenance Results * HLA Antibody Screen by PRA or SAB per Schedule (Class I and Class II) (07/27/2024 10:00 AM CDT) Blood 07/27/2024 10:0 0 AM CDT Narrative HISTOTRAC - TIRE CENTER SUPERVISOR Sample received in lab. PRA Screen ordered. [...] a method developed and validated by the [facility] HLA laboratory based on an FDA- approved IVD kit (LABScreen PRA, [employer], [place], [place]). Interpretive comments: The percentage of beads with MFI > 750 is reported, which indicates the percentage of donor population estimated to be incompatible with the patient tested. PRA > 0% is consistent with alloimmunization to HLA. Testing performed at the [facility] HLA Laboratory, [address] [place] [address], 5th floor, [place], [address]. CLIA # [id number]. Breanne Nieto, Ph.D., Heavy Forging Machine Operator, HLA Laboratory Abdoulaye Kraft M.D., Ph.D., Sheet Metal Welder, HLA Laboratory Denise Abreu, Ph.D., CLIA Sheet Metal Welder, [facility] Clinical Laboratories Current methodology and interpretive comments last revised on 06/16/2017. Alejo Florence MD LAB BLOOD ORDERABLES Final Resu lt HISTOTRAC * PSA screen (04/05/2023 11:27 AM TIRE CENTER SUPERVISOR) PSA-Total 0.28 <=3.90 ng/mL [facility] Comment: Interpretive Data AGE [...] revised 21. Blood 04/05/2023 11:2 7 AM TIRE CENTER SUPERVISOR 04/05/2023 12:10 PM TIRE CENTER SUPERVISOR Narrative [facility] - 04/05/2023 12:57 PM TIRE CENTER SUPERVISOR This lab is being obtained as part of a Kidney transplant evaluation, is time sensitive, and should only be drawn during the evaluation visit at [facility] Lab. Abena Brown MD LAB BLOOD ORDERABL ES Final Result Performing Organization Address City/[facility] Co de Phone Number [facility] Department [place] [address] * Hepatitis C antibody Blood (04/05/2023 11:27 AM TIRE CENTER SUPERVISOR) Hep C Ab Nonreactive Nonreactive [facility] Comment:Antibodies to HCV no t detected. Does NOT exclude the possibility of recent exposure to HCV. Current interpretive data was last revised on 21 Blood 04/05/2023 11:2 7 AM TIRE CENTER SUPERVISOR 04/05/2023 12:09 PM TIRE CENTER SUPERVISOR Narrative [facility] - 04/05/2023 1:03 PM TIRE CENTER SUPERVISOR This lab is being obtained as part of a Kidney transplant evaluation, is time sensitive, and should only be drawn during the evaluation visit at [address] Abena Brown MD LAB MICROBIOLOGY - GENERAL ORDERABLES Final Result Performing Organization Address [facility] de Phone Number [facility] Department [place] [address] from Last 3 Months or Most Recently Relevant to Health Maintenance Insurance MEDICARE [facility] MEDICARE MEDICARE [place] Care Teams Assistant Associate Professor Relationship Specialty Start Date End Date Angella Han NP [address] [facility] [address] [place] [address] PCP - General Nurse Practitioner 08/14/24 Janet Moss, RN [address] [facility] [address] [place] [address] Digital Computer Systems Analyst 10/06/22 Quang Johnson DO [address] [place], [place] [address] Referring Physician Internal Medicine 05/18/24
--- OUTSIDE RECORDS SUMMARY | 2024-09-14 15:43 | XMS_ITS | Clinical Summary ---
Author Organization [facility] Address [address] [place] [address] Care Team Providers Care Kennel Attendant Name Role Phone Angella Han CARDIOPULMONARY TECHNOLOGIST Primary Care Provider [phone] Allergies No known active allergies Medications albuterol [...] Active DIALYVITE VITAMIN D3 MAX 1.25 MG (14398 [place]) Tab TAKE ONE TABLET BY MOUTH [...] Date Diagnosed Date End stage renal disease ([facility]) 2023 Encounters Date Type Department Care Team Description 09/13/2024 2:20 PM CDT Hospital Encounter [facility] Diagnostic Imaging [address] [place] [address] Safia Hardy PA Parcellano, Ria L, MD Purcell, Henry E, MD Arrived 09/13/2024 Travel from Last 3 Months Immunizations Immunization Administration Dates Next Due Hepatitis B (Generic: Adult) 11/04/2022,09/30/19,09/04/2022 Influenza (Generic) 12/20/2022 Pneumococcal (Generic) 02/27/2019 Pneumococcal [...] on file Legal Sex Male 11:54 AM 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 Gender Identity Not on file [...] series) 03/07/2023 11/04/2022, 09/29/2022, 09/04/2022 COVID-19 Vaccine ( - 2023-2 5 season) 2023 PHQ-2 (Physician [place]) 02/23/2024 12/22/2023 DTaP, Tdap and Td Vaccines [...] Name Priority Date/Time Associated Diagnosis Comments XR ABD KUB Routine 09/13/2024 3:13 PM CDT End stage renal disease ([facility]) from Last 3 Months Results * XR ABD KUB (09/13/2024 3:13 PM CDT) Anatomical Region Laterality Modality Abdomen Radiographic Priya ging 09/14/2024 8:41 AM CDT Impressions 09/14/2024 8:42 AM CDT IMPRESSION: Dialysis catheter present with the distal aspect in the lower pelvis. Mild prominence of the ascending colon. This is slightly distended to approximately 6.2 cm. Ordered By: XAVIER MARCUS Interpreted By: Tobin Landaverde MD, 09/14/2024 8:41 AM Narrative 09/14/2024 8:42 AM CDT [place] [id number] [facility] [place] [address] Procedure(s): XR ABD KUB Date of service: 09/13/2024 2:53 PM Provided clinical information: 54 years, Male, end stage renal disease Procedure and materials: Supine view the abdomen. Comparison studies: None. Findings: There is mild gaseous prominence of the ascending colon. This measures approximately 6.2 cm. There is a dialysis catheter that is present with the tip of the dialysis catheter in the pelvis. No gaseous distention of small bowel. Procedure Note Tobin Landaverde MD - 09/14/2024 [facility] [address] [place] [address] Procedure(s): XR ABD KUB Date of service: 09/13/2024 2:53 PM Provided clinical information: 54 years, Male, end stage renal disease Procedure and materials: Supine view the abdomen. Comparison studies: None. Findings: There is mild gaseous prominence of the ascending colon. This measuresapproximately 6.2 cm. There is a dialysis catheter that is present with the tip of the dialysiscatheter in the pelvis. No gaseous distention of small bowel. IMPRESSION: Dialysis catheter present with the distal aspect in the lower pelvis. Mild prominence of the ascending colon. This is slightly distended toapproximately 6.2 cm. Ordered By: XAVIER MARCUS Interpreted By: Tobin Landaverde MD, 09/14/2024 8:41 AM us Xavier Marcus MD GENERAL IMAGING Final Result from Last 3 Months Insurance MEDICARE MEDICAID Care Teams Kennel Attendant Relationship Specialty Start Date End Date Angella Han NP [address] [place] [address] PCP - General Nurse Practitioner Family 09/13/24
--- OUTSIDE RECORDS SUMMARY | 2024-09-14 15:44 | XMS_ITS | Patient Health Record ---
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 Problem Carlson's neuroma of left foot (264025626417429) Carlson's neuroma of left 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) Active confirmed Problem Lumbar radiculopathy (820552596) Lumbar radiculopathy (M54.16) Active confirmed Problem Autoimmune disease (70185526) Autoimmune disease (M35.9) Active confirmed Problem Autoimmune disorder (06550451) Autoimmune disorder (D89.89) Active confirmed Vital Signs Height 70 in 04/28/2024 Weight 240 lbs 04/28/2024 BMI 34.43 kg/m2 04/28/2024 Encounters Encounter Location Date Provider Diagnosis 1 OF Renzo Damian DPM [facility] [address] [address] 04/28/2024 James Marcum Idiopathic progressi ve neuropathy [...] Medicare [address] [place], [place] [id number] Real Norton Self - patient is the insured [facility] [address] [address] [place] [address] [id number] Real Norton Self - patient is the insured Medical (General) History Medical History History ICD Code depression Dialysis High Blood Pressure kidney disease Surgical History Surgery Date(Month/Year) colonscopy 03/2023
--- OUTSIDE RECORDS SUMMARY | 2024-09-14 15:46 | XMS_ITS | Encounter Summary ---
Author Organization [facility] Address [address] [place] [address] Care Team Providers Care Configuration Technician Name Role Phone Angella Han IVA Primary Care Provider [phone] Encounter Details Date Type Department Care Team (Late st Contact Info) Description 09/13/2024 2:20 PM CDT Hospital Encounter [facility] [address] [place], [place] [id number] [place] [address] [place], [place] [id number] Josey Phillips MD [address] [place] [address] Xavier Marcus MD [address] [facility] [address] [place] [address] Arrived Social History Tobacco Use Types Packs/Day Years Used Date Smoking Tobacco: Former Cigarettes Passive Smoke Exposure: Past Smokeless Tobacco: Never Alcohol Use Standard Drinks/Week Comments Yes 0 (1 standard drink = 0.6 oz pur e alcohol) PHQ-2 Answer Date Recorded Patient Health Questionnaire-2 Score 0 12/22/2023 Sex and Gender Information Value Date Recorded Sex Assigned at Not on file 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 [address] Procedure(s): XR ABD KUB Date of service: [...] Procedure Note Tobin Landaverde MD - 09/14/2024 [facility] [address] [facility] [place] [address] Procedure(s): XR ABD KUB Date of service: [...] By: Tobin Landaverde MD, 09/14/2024 8:41 AM Xavier Marcus MD GENERAL IMAGING Final Result documented in this encounter Visit Diagnoses Diagnosis End stage renal disease ([facility]) End stage renal disease documented in this encounter Care Teams Configuration Technician Relationship Specialty Start Date End Date Angella Han NP [address] [id number] PCP - General Nurse Practitioner Family 09/13/24 documented as of this encounter
--- OUTSIDE RECORDS SUMMARY | 2024-09-14 15:46 | XMS_ITS | Encounter Summary ---
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
--- NOTE | 2024-09-14 17:16 | ED.RECABL ---
HPI - Recheck/Abnormal Lab/Rx General Chief Complaint: Recheck/Abnormal Lab/Rx <Sheridan Vargas PA-C - Last Filed: 09/14/24 18:56> Stated Complaint: sent from [facility] for fluid overload <Sheridan Vargas PA-C - Last Filed: 09/14/24 18:56> Time Seen by Provider: 09/14/24 17:16 <Sheridan Vargas PA-C - Last Filed: 09/14/24 18:56> Focused HPI: This is a 54 year old male that presents to the ER for fluid overload. Reports he has not been able to do his peritoneal dialysis at home fully for the last week because his machine is not working properly. Reports shortness of breath, swelling, wheezing. GENERAL: Chronically ill-appearing, well-nourished, and in no acute distress. HEAD: Normocephalic, atraumatic. CHEST: No respiratory distress. Diffuse expiratory wheezing HEART: Regular rate and rhythm.? NEURO: ?Alert and oriented x3. Patient screened in triage and initial orders placed.? ?Additional care and disposition to be based upon?diagnostic testing and treatment. <Sheridan Vargas PA-C - Last Filed: 09/14/24 18:56> History of Present Illness HPI narrative: 54-year-old male with history of ESRD on peritoneal dialysis, hypertension, dyslipidemia, diastolic dysfunction, cardiomyopathy presents to the emergency department for ?volume overload?. Patient states over the past week he has been unable to complete a full peritoneal dialysis run because his machine has not been working properly. He states last night he was only able to run 3 hours of his peritoneal dialysis. He contacted Claudia today and 1 in to the clinic where he had his port checked to ensure it was working correctly which she states it was. Reportedly Claudia contacted patient's sql server consultant, Dr. Marcus, who advised the patient to come to the ED. The patient is reporting swelling to his abdomen, legs, arms, wheezing and dyspnea. He denies cough, congestion, fever, abdominal pain, chest pain. He notes he makes ?barely any urine. States some days he will make no urine and some days he takes a very small amount. <Sandra Landrum PA-C - Last Filed: 09/14/24 19:17> Related Data Home Medications: Home Medications ?Medication ?Instructions ?Recorded ?Confirmed ?Last Taken ?Type gentamicin 0.1 % topical cream 1 applic topical TID PRN DIALYSIS 08/31/22 08/15/24 09/27/23 History CATH. calcium carbonate (Tums) 200 mg PO HS PRN Indigestion 07/20/23 08/15/24 09/27/23 History cinacalcet 30 mg tablet 90 mg PO DAILY 07/20/23 08/15/24 09/27/23 History multivitamin 1 tablet PO DAILY 07/29/23 08/15/24 10/05/23 History ferric citrate 210 mg iron tablet 210 mg PO TIDWM 09/28/23 08/15/24 Unknown History (Auryxia) escitalopram oxalate 10 mg tablet 10 mg PO DAILY 03/09/24 08/15/24 Unknown History albuterol sulfate 90 mcg/actuation 2 inh inhalation QID PRN shortness 03/29/24 08/15/24 Unknown History aerosol inhaler of breath or wheezing calcium acetate(phosphat bind) 667 2,668 mg PO TIDWM 03/29/24 08/15/24 Unknown History mg capsule melatonin 10 mg capsule 10 mg PO HS 03/29/24 08/15/24 Unknown History ondansetron 4 mg disintegrating 8 mg translingual Q8H PRN nausea 03/29/24 08/15/24 Unknown History tablet and vomiting <Sheridan Vargas PA-C - Last Filed: 09/14/24 18:56> Allergies/Adverse Reactions: Allergies Allergy/AdvReac Type Severity Reaction Status Date / Time No Known Allergies Allergy Verified 09/14/24 18:37 <Sheridan Vargas PA-C - Last Filed: 09/14/24 18:56> Review of Systems Review of Systems: All systems reviewed & are unremarkable except as noted in HPI and below <Sandra Landrum PA-C - Last Filed: 09/14/24 19:17> [facility] Past Medical History Medical History: Medical History Peritoneal dialysis catheter in place Polyneuropathy HTN (hypertension) Vitamin D3 deficiency <Sheridan Vargas PA-C - Last Filed: 09/14/24 18:56> Surgical History Surgical History: Surgical History History of appendectomy <Sheridan Vargas PA-C - Last Filed: 09/14/24 18:56> Family History Family History: Family History Father Hypertension <Sheridan Vargas PA-C - Last Filed: 09/14/24 18:56> Social History Social History: Social History Social History: Lives alone in an apartment. No pets. Smoking packs per day: 1.5 Smoking cigarettes per day: 30.0 Years smoked: 20 Smoking pack-years: 30.00 Smoking status: Former smoker Tobacco type: cigarettes Alcohol intake: current Alcohol use details: rarely Substance use: current Substance use type: marijuana Other substance usage details: OCCASIONAL Do You Feel Safe in your Home?: Yes Lack of Transportation: No Lack of Food: Often True Current Housing: I Have Housing Concerned About Future Housing: No Difficulty Paying Gas/Electric Bills: YES Difficulty Paying for Meds: No Currently Unemployed: No Education: Bachelor's Degree Difficulty w/ Childcare or Family Care: No Living arrangements: with family Occupation/Education: unemployed Gender identity (if verbalized by the patient): Male Sexual Orientation (if Verbalized by the Patient): Straight or Heterosexual Spiritual care concerns: No Agree to blood products: Yes <Sheridan Vargas PA-C - Last Filed: 09/14/24 18:56> Exam Narrative: GENERAL: Chronically ill-appearing, NAD HEAD: Normocephalic, atraumatic. EYES: PERRLA and EOMI. ENT: Nares clear, no rhinorrhea or epistaxis. Mucous membranes moist. NECK: Supple. CHEST: Mild expiratory wheezing throughout all lung [place]. Patient satting 97% on room air, speaking in full sentences, in no respiratory distress HEART: Regular rate and rhythm. No murmur heard. Normal peripheral pulses. ABDOMEN: Abdomen distended, nontender EXTREMITIES: Normal range of motion. Pitting edema to bilateral lower extremities SKIN: Warm, dry, no rash. NEURO: No focal deficits. Alert and oriented x3 <Sandra Landrum PA-C - Last Filed: 09/14/24 19:17> Course Vital Signs Vital signs: Vital Signs Temperature 97.9 F 09/14/24 15:56 Pulse Rate 78 09/14/24 15:56 Respiratory Rate 18 09/14/24 15:56 Blood Pressure 160/108 H 09/14/24 15:56 Pulse Oximetry 97 09/14/24 15:56 Oxygen Delivery Room Air 09/14/24 15:56 Temperature 97.9 F 09/14/24 15:56 Pulse Rate 80 09/14/24 18:13 Respiratory Rate 20 09/14/24 18:13 Blood Pressure 160/108 H 09/14/24 15:56 Pulse Oximetry 97 09/14/24 15:56 Oxygen Delivery Room Air 09/14/24 15:56 <Sheridan Vargas PA-C - Last Filed: 09/14/24 18:56> Vital Signs Temperature 97.9 F 09/14/24 15:56 Pulse Rate 78 09/14/24 15:56 Respiratory Rate 18 09/14/24 15:56 Blood Pressure 160/108 H 09/14/24 15:56 Pulse Oximetry 97 09/14/24 15:56 Oxygen Delivery Room Air 09/14/24 15:56 Temperature 97.9 F 09/14/24 15:56 Pulse Rate 80 09/14/24 18:13 Respiratory Rate 20 09/14/24 18:13 Blood Pressure 160/108 H 09/14/24 15:56 Pulse Oximetry 97 09/14/24 15:56 Oxygen Delivery Room Air 09/14/24 15:56 <Sandra Landrum PA-C - Last Filed: 09/14/24 19:17> MDM - Recheck/Abnormal Lab/Rx MDM Narrative Medical decision making narrative: 54-year-old male with history of peritoneal dialysis presents emergency department with concerns for volume overload. Patient has not been able to run a full. She will dialysis session for a week to to his machine well-functioning. He is reporting abdominal distension, upper and lower extremity edema, dyspnea and wheezing. Triage vitals with hypertension of 160/108. Patient is afebrile and nontoxic appearing. Exam is notable for the above. Patient received steroids, magnesium and DuoNeb triage for wheezing with reported improvement, however does have minimal wheezing remaining on exam. Will provide another DuoNeb. CBC with leukocytosis of 12.5. Hemoglobin is 10 which is likely due to chronic renal failure verses hemodilution. Chemistries significant for hypervolemic hyponatremia with a sodium of 116, hypochloremia of 80, bicarb of 14 with anion gap of 22 and BUN of 67. Creatinine is 16.52. Hypocalcemia 7.8. Magnesium is normal 1.7. Potassium is normal at 4.6. EKG shows sinus rhythm with first-degree AV block with a RI interval of 215, normal QRS duration, normal QTC, no ST elevations or depressions. Chest x-ray shows findings concerning for mild pulmonary edema. Patient did have an episode of dry heaving in the ED was given Zofran. Patient's blood pressure steadily increased throughout ED stay. Discussed case with Nephrology, Dr. Marcus, who advises 80 mg of Lasix b.i.d. and to continue patient's antihypertensives for his hypertension. He took his morning doses of Entresto, Farxiga and carvedilol but is not taking his evening doses of Entresto and carvedilol. These were provided in the ED. Dr. Marcus states he plans to have the patient dialyzed tonight. Advises 1500cc fluid restriction. Discussed with hospitalist IVA Liu, who agrees to admission. Advises IMU. <Sandra Landrum PA-C - Last Filed: 09/14/24 19:17> Lab Data Result diagrams: 09/14/24 17:52 09/14/24 17:52 <Sheridan Vargas PA-C - Last Filed: 09/14/24 18:56> Labs: Lab Results 09/14/24 09/14/24 09/14/24 Range/Units 17:52 17:52 17:52 WBC 12.5 H (4.5-10.0) K/mm3 RBC 3.23 L (4.6-6.20) M/mm3 Hgb 10.0 L (14.0-18.0) g/dL Hct 29.8 L (42.0-52.0) % MCV 92.3 (80-100) fl MCH 31.0 (26-34) pg MCHC 33.6 (32-36) g/dl RDW 13.2 (11.5-14.5) % Plt Count 398 H (150-375) k/mm3 MPV 8.7 (7.4-10.4) fl Immature Gran % (Auto) 0.3 (0-0.5) % Neut % (Auto) 70.5 (45.5-73.1) % Lymph % (Auto) 12.5 L (18.3-44.2) % Mcdonald % (Auto) 9.3 H (2.6-8.5) % Eos % (Auto) 7.0 H (0-4.4) % Baso % (Auto) 0.4 (0.2-1.2) % Lymph # (Auto) 1.56 (0.9-3.2) K/mm3 Mcdonald # (Auto) 1.2 H (0.1-0.6) K/mm3 Eos # (Auto) 0.9 H (0-0.3) K/mm3 Baso # (Auto) 0.1 (0.0-0.1) K/mm3 Abs Immat Gran (auto) 0.04 H (0.00-0.031) K/mm3 Absolute Neuts (auto) 8.8 H (1.3-6.7) K/mm3 Absolute Nucleated RBC 0.000 (0.0-0.012) K/mm3 Nucleated RBC % 0.0 (0.0-0.2) % PT 14.0 (11.1-14.7) Seconds INR 1.1 APTT 42.4 H (22.3-36.8) Seconds Sodium 116 L* (137-145) mmol/L Potassium 4.6 (3.4-5.0) mmol/L Chloride 80 L (98-107) mmol/L Carbon Dioxide 14 L (22-30) mmol/L Anion Gap 22 H (4-12) mmol/L BUN 67 H (9-20) mg/dL Creatinine 16.52 H (0.7-1.3) mg/dL Estim Creat Clear Calc 6 ml/min Estimated GFR 3 L (59 - ) Glucose 91 (65-110) mg/dL Calcium 7.8 L (8.4-10.2) mg/dL Phosphorus 12.8 H Cancelled (2.5-4.5) mg/dL Magnesium 1.7 Cancelled (1.6-2.3) mg/dL Total Bilirubin 0.4 (0.2-1.3) mg/dL AST 19 (17-59) U/L ALT 12 (6-50) U/L Alkaline Phosphatase 102 (38-126) U/L NT-Pro-B Natriuret Pep 45592 H (19.9-100) pg/mL Total Protein 6.1 L (6.3-8.2) g/dL Albumin 3.5 (3.5-5.1) g/dL <Sheridan Vargas PA-C - Last Filed: 09/14/24 18:56> Lab Results 09/14/24 09/14/24 09/14/24 Range/Units 17:52 17:52 17:52 WBC 12.5 H (4.5-10.0) K/mm3 RBC 3.23 L (4.6-6.20) M/mm3 Hgb 10.0 L (14.0-18.0) g/dL Hct 29.8 L (42.0-52.0) % MCV 92.3 (80-100) fl MCH 31.0 (26-34) pg MCHC 33.6 (32-36) g/dl RDW 13.2 (11.5-14.5) % Plt Count 398 H (150-375) k/mm3 MPV 8.7 (7.4-10.4) fl Immature Gran % (Auto) 0.3 (0-0.5) % Neut % (Auto) 70.5 (45.5-73.1) % Lymph % (Auto) 12.5 L (18.3-44.2) % Mcdonald % (Auto) 9.3 H (2.6-8.5) % Eos % (Auto) 7.0 H (0-4.4) % Baso % (Auto) 0.4 (0.2-1.2) % Lymph # (Auto) 1.56 (0.9-3.2) K/mm3 Mcdonald # (Auto) 1.2 H (0.1-0.6) K/mm3 Eos # (Auto) 0.9 H (0-0.3) K/mm3 Baso # (Auto) 0.1 (0.0-0.1) K/mm3 Abs Immat Gran (auto) 0.04 H (0.00-0.031) K/mm3 Absolute Neuts (auto) 8.8 H (1.3-6.7) K/mm3 Absolute Nucleated RBC 0.000 (0.0-0.012) K/mm3 Nucleated RBC % 0.0 (0.0-0.2) % PT 14.0 (11.1-14.7) Seconds INR 1.1 APTT 42.4 H (22.3-36.8) Seconds Sodium 116 L* (137-145) mmol/L Potassium 4.6 (3.4-5.0) mmol/L Chloride 80 L (98-107) mmol/L Carbon Dioxide 14 L (22-30) mmol/L Anion Gap 22 H (4-12) mmol/L BUN 67 H (9-20) mg/dL Creatinine 16.52 H (0.7-1.3) mg/dL Estim Creat Clear Calc 6 ml/min Estimated GFR 3 L (59 - ) Glucose 91 (65-110) mg/dL Calcium 7.8 L (8.4-10.2) mg/dL Phosphorus 12.8 H Cancelled (2.5-4.5) mg/dL Magnesium 1.7 Cancelled (1.6-2.3) mg/dL Total Bilirubin 0.4 (0.2-1.3) mg/dL AST 19 (17-59) U/L ALT 12 (6-50) U/L Alkaline Phosphatase 102 (38-126) U/L NT-Pro-B Natriuret Pep 27374 H (19.9-100) pg/mL Total Protein 6.1 L (6.3-8.2) g/dL Albumin 3.5 (3.5-5.1) g/dL <Sandra Landrum PA-C - Last Filed: 09/14/24 19:17> Imaging Data Radiologist's impression: ITS Impressions Chest X-Ray 09/14/24 18:21 IMPRESSION: 1. Increased interstitial pattern in the bilateral mid and lower lung zones and favor mild pulmonary edema over pneumonia. <Sheridan Vargas PA-C - Last Filed: 09/14/24 18:56> Critical Care Time Critical Care Time Critical Care Time: No <Sheridan Vargas PA-C - Last Filed: 09/14/24 18:56> Discharge Plan Discharge Clinical Impression: Anasarca, Acute hyponatremia, Hypochloremia <FRANK Freitas Last Filed: 09/14/24 18:56> Patient Disposition: Still a Patient <FRANK Freitas Last Filed: 09/14/24 18:56> Condition: Serious <FRANK Freitas Last Filed: 09/14/24 18:56> Patient Language: Yakut <FRANK Freitas Last Filed: 09/14/24 18:56> Prescriptions: No Action arlfhumq-kcubtuels-QX 3.5-10,000-1 mg/mL-unit/mL-% drops,suspension 4 drop RIGHT EAR Q8H 7 Days Qty: 10 0RF ciprofloxacin-dexamethasone 0.3-0.1 % drops,suspension 4 drp RIGHT EAR Q12H 7 Days Qty: 7.5 0RF gentamicin 0.1 % cream 1 applic topical TID PRN (Reason: DIALYSIS CATH.) calcium carbonate [Tums] 200 mg calcium (500 mg) tablet,chewable 200 mg PO HS PRN (Reason: Indigestion) omeprazole 20 mg capsule,delayed release(DR/EC) 20 mg PO DAILY Qty: 90 1RF nortriptyline 50 mg capsule 50 mg PO DAILY Qty: 90 1RF carvedilol 25 mg tablet 25 mg PO Q12H Qty: 60 5RF Rx Instructions: must administer with a meal/food multivitamin Tablet 1 tablet PO DAILY Entresto 49-51 mg tablet 1 tablet PO BID Qty: 60 5RF dapagliflozin propanediol [Farxiga] 10 mg tablet 10 mg PO DAILY Qty: 30 5RF Auryxia 210 mg iron Tablet 210 mg PO TIDWM Rx Instructions: administer with a meal melatonin 10 mg capsule 10 mg PO HS albuterol sulfate 90 mcg/actuation HFA aerosol inhaler 2 inh INHALATION QID PRN (Reason: shortness of breath or wheezing) calcium acetate(phosphat bind) 667 mg capsule 2,668 mg PO TIDWM ondansetron 4 mg tablet,disintegrating 8 mg translingual Q8H PRN (Reason: nausea and vomiting) cinacalcet 30 mg tablet 90 mg PO DAILY potassium chloride [K-Tab] 20 mEq Tablet Extended Release 40 meq PO DAILY Qty: 15 0RF escitalopram oxalate 10 mg tablet 10 mg PO DAILY torsemide 100 mg tablet See Rx Instructions .ROUTE .COMPLEX Qty: 30 11RF Dose Instruction: TAKE 1 TABLET BY MOUTH EVERY MORNING Rx Instructions: TAKE 1 TABLET BY MOUTH EVERY MORNING diphenoxylate-atropine 2.5-0.025 mg tablet 1 tablet PO QID PRN (Reason: diarrhea) Qty: 60 0RF gabapentin 300 mg capsule See Rx Instructions .ROUTE .COMPLEX Qty: 270 1RF Dose Instruction: TAKE 1 CAPSULE BY MOUTH THREE TIMES DAILY Rx Instructions: TAKE 1 CAPSULE BY MOUTH THREE TIMES DAILY hydrocodone-acetaminophen 5-325 mg tablet 1 tablet PO Q8H PRN (Reason: Pain Rated 4-10) Qty: 90 0RF buspirone 10 mg tablet See Rx Instructions .ROUTE .COMPLEX Qty: 90 0RF Dose Instruction: TAKE 1 TABLET BY MOUTH THREE TIMES DAILY Rx Instructions: TAKE 1 TABLET BY MOUTH THREE TIMES DAILY <Sheridan Vargas PA-C - Last Filed: 09/14/24 18:56> Follow-up/Referrals: Angella Han APRN [Primary Care Provider] - <Sheridan Vargas PA-C - Last Filed: 09/14/24 18:56>
--- NOTE | 2024-09-14 17:19 | ECG_ITS ---
Test Date: 2024-09-14 17:38:07 Measurements Intervals [place] Rate: 77 P: -7 [place]: 215 QRS: 19 QRSD: 113 T: 81 QT: 368 QTc: 417 Interpretive Statements SINUS RHYTHM WITH FIRST DEGREE AV BLOCK INCOMPLETE LEFT BUNDLE BRANCH BLOCK MINIMAL ST DEPRESSION [0.025+ mV ST DEPRESSION] Compared to ECG 03/28/2024 23:03:52 First degree AV block now present ST-T WAVE ABNORMALITIES STILL PRESENT Electronically Signed On 09-15-2024 16:06:23 CDT by Nawaf Dos Santos M.D.
[2024-09-14] MEDS: IPRATROPIUM 0.5 MG/ALBUTEROL SULFATE 2.5 MG AMPUL.NEB 3 ML INHALATION ×2 (17:31→18:04)
--- OUTSIDE RECORDS SUMMARY | 2024-09-14 17:42 | XMS_ITS | Clinical Summary ---
Author Organization [facility] Address [address] [place] [address] Care Team Providers Care Exercise Equipment Specialist Name Role Phone Angella Han FASHION BUYING INTERNSHIP Primary Care Provider [phone] Allergies No known active allergies Medications albuterol [...] Active DIALYVITE VITAMIN D3 MAX 1.25 MG (17910 UT) Tab TAKE ONE TABLET BY MOUTH [...] Date Diagnosed Date End stage renal disease ([facility]) 2023 Encounters Date Type Department Care Team Description 09/13/2024 2:20 PM CDT Hospital Encounter [facility] [address] [place] [address] Safia Hardy PA Parcellano, Ria L, MD [...] on file 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 [address] Procedure(s): XR ABD KUB Date of service: [...] Procedure Note Tobin Landaverde MD - 09/14/2024 [facility] [address] [place] [address] Procedure(s): XR ABD KUB Date of service: [...] 3 Months Insurance MEDICARE MEDICAID Care Teams Exercise Equipment Specialist Relationship Specialty Start Date End Date Angella Han NP [address] [place] [address] PCP - General Nurse Practitioner Family 09/13/24
--- OUTSIDE RECORDS SUMMARY | 2024-09-14 17:42 | XMS_ITS ---
Author Organization [facility] Address [address] [place] [address] Care Team Providers Care Roller Print Tender Name Role Phone Janet Moss RN Unavailable [phone] Quang Johnson DO Unavailable [phone] Angella Han NP Primary Care Provider [phone] Transplant Episode Kidney Candidate [facility] ([place], [place]) [facility] Center waitlisted on 08/24/2023 Marked as Inactive on 08/24/2023 Reason: 04 - Insurance Issues Kidney CoordinatorJanet Moss RN Fax: N/A Email: N/A Scores Score Value Updated Exceptions/Reas ons CPRA Not available EPTS (Calc) 32 09/14/2024 [place] Organ 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 Care Team Name Role Phone Fax Email Janet Moss RN Kidney Coordinator [phone] N/A N/A Xavier Marcus MD Referring Physician [phone] N/A Janet Muse Yarn Dumper [phone] N/A N/A Events Pre-Transplant Referred: 10/05/2022 Evaluation began: 02/04/2023 Committee: 08/23/2023 UNOS qualified: 11/27/2021 Center waitlisted: 08/24/2023 Dialysis History Dialysis History Start End Type Comments Center 11/27/2021 Peritoneal [facility] Dialysis [facility] Information Center Phone Fax Address [facility] [phone] [address] [facility] [address] [facility] [address]
--- OUTSIDE RECORDS SUMMARY | 2024-09-14 17:42 | XMS_ITS | Referral Summary ---
Author Organization [facility] Address [address] [place] [address] Care Team Providers Care Salvage Cutter Name Role Phone Janet Moss RN Unavailable [phone] Quang Johnson DO Unavailable [phone] Angella Han NP Primary Care Provider [phone] Encounters Date Type Department Care Team Description 09/13/2024 Telephone 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 Gender Identity Not on file Sexual Orientation Not on file Last Filed Vital Signs Vital Sign Reading Time Taken Comments Blood Pressure 163/115 04/12/2023 8:12 AM FURNITURE UPHOLSTERER APPRENTICE Pulse 77 04/12/2023 8:12 AM FURNITURE UPHOLSTERER APPRENTICE Temperature 36.7 C (98.1 F) 04/05/2023 1:04 PM FURNITURE UPHOLSTERER APPRENTICE Respiratory Rate - - Oxygen Saturation - - Inhaled Oxygen Concentration - - Weight 112.5 kg (248 lb 0.3 oz) 04/12/2023 8:12 AM FURNITURE UPHOLSTERER APPRENTICE Height 175.3 cm (5' 9) 04/05/2023 1:04 PM FURNITURE UPHOLSTERER APPRENTICE Body Mass Index 36.63 04/05/2023 1:04 PM FURNITURE UPHOLSTERER APPRENTICE Plan of Treatment Not on file Procedures [...] HEPATITIS C ANTIBODY Routine 04/05/2023 11:27 AM FURNITURE UPHOLSTERER APPRENTICE End stage renal disease (HCC) PSA SCREEN Routine 04/05/2023 11:27 AM FURNITURE UPHOLSTERER APPRENTICE End stage renal disease (HCC) from Last 3 Months or Most Recently Relevant to Health Maintenance Results * HLA Antibody Screen by PRA or SAB per Schedule (Class I and Class II) (07/27/2024 10:00 AM CDT) Blood 07/27/2024 10:0 0 AM CDT Narrative HISTOTRAC - FURNITURE UPHOLSTERER APPRENTICE Sample received in lab. PRA Screen ordered. [...] a method developed and validated by the [facility] HLA laboratory based on an FDA- approved IVD kit (LABScreen PRA, [employer] [place], [place]). Interpretive comments: The percentage of beads with MFI > 750 is reported, which indicates the percentage of donor population estimated to be incompatible with the patient tested. PRA > 0% is consistent with alloimmunization to HLA. Testing performed at the [facility], [address] [place] [address], 5th floor, [place], [address]. CLIA # [id number]. Breanne Nieto, Ph.D., Transmitter Tester, HLA Laboratory Abdoulaye Kraft M.D., Ph.D., Bottom Stop Attacher, HLA Laboratory Denise Abreu, Ph.D., CLIA Bottom Stop Attacher, [facility] Clinical Laboratories Current methodology and interpretive comments last revised on 06/16/2017. Alejo Florence MD LAB BLOOD ORDERABLES Final Resu lt HISTOTRAC * PSA screen (04/05/2023 11:27 AM FURNITURE UPHOLSTERER APPRENTICE) PSA-Total 0.28 <=3.90 ng/mL [facility] Comment: Interpretive Data AGE SEX [...] revised 21. Blood 04/05/2023 11:2 7 AM FURNITURE UPHOLSTERER APPRENTICE 04/05/2023 12:10 PM FURNITURE UPHOLSTERER APPRENTICE Narrative [facility] - 04/05/2023 12:57 PM FURNITURE UPHOLSTERER APPRENTICE This lab is being obtained as part of a Kidney transplant evaluation, is time sensitive, and should only be drawn during the evaluation visit at [facility]. Abena Brown MD LAB BLOOD ORDERABL ES Final Result Performing Organization Address City/[facility] Co de Phone Number [facility] Department [place] [address] * Hepatitis C antibody Blood (04/05/2023 11:27 AM FURNITURE UPHOLSTERER APPRENTICE) Hep C Ab Nonreactive Nonreactive [facility] Comment:Antibodies to HCV no t detected. Does NOT exclude the possibility of recent exposure to HCV. Current interpretive data was last revised on 21 Blood 04/05/2023 11:2 7 AM FURNITURE UPHOLSTERER APPRENTICE 04/05/2023 12:09 PM FURNITURE UPHOLSTERER APPRENTICE Narrative [facility] - 04/05/2023 1:03 PM FURNITURE UPHOLSTERER APPRENTICE This lab is being obtained as part of a Kidney transplant evaluation, is time sensitive, and should only be drawn during the evaluation visit at [address] Abena Brown MD LAB MICROBIOLOGY - GENERAL ORDERABLES Final Result Performing Organization Address [facility] de Phone Number [facility] Department [place] [address] from Last 3 Months or Most Recently Relevant to Health Maintenance Insurance MEDICARE [facility] Address: [facility] [address] [place] [address] [facility] MEDICARE MEDICARE IDIL Care Teams Salvage Cutter Relationship Specialty Start Date End Date Angella Han NP [address] [facility] [address] [place] [address] PCP - General Nurse Practitioner 08/14/24 Janet Moss, RN [address] [facility] [address] [place] [address] Deliverer Outside 10/06/22 Quang Johnson DO [address] [place], [place] [id number] Referring Physician Internal Medicine 05/18/24
--- OUTSIDE RECORDS SUMMARY | 2024-09-14 17:42 | XMS_ITS | Clinical Summary ---
Author Organization [facility] Address [address] [place] [address] Care Team Providers Care Rehabilitation Program Coordinator Name Role Phone Janet Moss RN Unavailable [phone] Quang Johnson DO Unavailable [phone] Angella Han NP Primary Care Provider [phone] Allergies No known active allergies Medications albuterol [...] Type Department Care Team Description 09/13/2024 Telephone [facility] Scheduling [address] [place] [address] Scar Carroll MD PhD Scheduling Appointments 07/27/2024 10:00 AM CDT - 07/27/2024 11:59 PM CDT Hospital Encounter [facility] [address] [place] [address] ESRD (end stage renal disease) ([facility]) Discharge Disposition: Discharge to home or self [...] on file 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 Gender Identity Not on file Sexual Orientation Not on file Obstetrics History Last Filed Vital Signs Vital Sign Reading Time Taken Comments Blood Pressure 163/115 04/12/2023 8:12 AM MAINSPRING WINDER AND OILER Pulse 77 04/12/2023 8:12 AM MAINSPRING WINDER AND OILER Temperature 36.7 C (98.1 F) 04/05/2023 1:04 PM MAINSPRING WINDER AND OILER Respiratory Rate - - Oxygen Saturation - - Inhaled Oxygen Concentration - - Weight 112.5 kg (248 lb 0.3 oz) 04/12/2023 8:12 AM MAINSPRING WINDER AND OILER Height 175.3 cm (5' 9) 04/05/2023 1:04 PM MAINSPRING WINDER AND OILER Body Mass Index 36.63 04/05/2023 1:04 PM MAINSPRING WINDER AND OILER Plan of Treatment Health Maintenance Due Date [...] HEPATITIS C ANTIBODY Routine 04/05/2023 11:27 AM MAINSPRING WINDER AND OILER End stage renal disease (HCC) PSA SCREEN Routine 04/05/2023 11:27 AM MAINSPRING WINDER AND OILER End stage renal disease (HCC) from Last 3 Months or Most Recently Relevant to Health Maintenance Results * HLA Antibody Screen by PRA or SAB per Schedule (Class I and Class II) (07/27/2024 10:00 AM CDT) Blood 07/27/2024 10:0 0 AM CDT Narrative HISTOTRAC - MAINSPRING WINDER AND OILER Sample received in lab. PRA Screen ordered. [...] a method developed and validated by the [facility] HLA laboratory based on an FDA- approved IVD kit (LABScreen PRA, [employer], [facility] [place]). Interpretive comments: The percentage of beads with MFI > 750 is reported, which indicates the percentage of donor population estimated to be incompatible with the patient tested. PRA > 0% is consistent with alloimmunization to HLA. Testing performed at the [facility], [address] [place] [address], 5th floor, [place], [address]. IA # [id number]. Breanne Nieto, Ph.D., Bowling Ball Weigher And Packer, HLA Laboratory Abdoulaye Kraft M.D., Ph.D., Teacher Emotionally Impaired, HLA Laboratory Denise Abreu, Ph.D., CLIA Teacher Emotionally Impaired, [facility] Clinical Laboratories Current methodology and interpretive comments last revised on 06/16/2017. us Alejo Florence MD LAB BLOOD ORDERABLES Final Resu lt HISTOTRAC * PSA screen (04/05/2023 11:27 AM MAINSPRING WINDER AND OILER) Pathologist [facility] PSA-Total 0.28 <=3.90 ng/mL [facility] Comment: Interpretive Data AGE SEX [...] revised 21. Blood 04/05/2023 11:2 7 AM MAINSPRING WINDER AND OILER 04/05/2023 12:10 PM MAINSPRING WINDER AND OILER Narrative [facility] - 04/05/2023 12:57 PM MAINSPRING WINDER AND OILER This lab is being obtained as part of a Kidney transplant evaluation, is time sensitive, and should only be drawn during the evaluation visit at [address] Lab[address] Abena Brown MD LAB BLOOD ORDERABL ES Final Result Performing Organization Address [facility] Co de Phone Number [facility] Department [place] [employer] [address] * Hepatitis C antibody Blood (04/05/2023 11:27 AM MAINSPRING WINDER AND OILER) Hep C Ab Nonreactive Nonreactive [facility] Comment:Antibodies to HCV no t detected. Does NOT exclude the possibility of recent exposure to HCV. Current interpretive data was last revised on 21 Blood 04/05/2023 11:2 7 AM MAINSPRING WINDER AND OILER 04/05/2023 12:09 PM MAINSPRING WINDER AND OILER Narrative [facility] - 04/05/2023 1:03 PM MAINSPRING WINDER AND OILER This lab is being obtained as part of a Kidney transplant evaluation, is time sensitive, and should only be drawn during the evaluation visit at [address] Abena Brown MD LAB MICROBIOLOGY - GENERAL ORDERABLES Final Result Performing Organization Address City/[facility]/ZIP Co de Phone Number [facility] Department [place] [employer] [address] from Last 3 Months or Most Recently Relevant to Health Maintenance Insurance MEDICARE [employer] [place] [address] [place] [address] [address] [facility] [place] [id number] Care Teams Rehabilitation Program Coordinator Relationship Specialty Start Date End Date Angella Han NP [address] [place] [address] PCP - General Nurse Practitioner 08/14/24 Janet Moss, RN [address] [facility] [address] [place] [address] Hand Box Coverer 10/06/22 Quang Johnson DO [address] [place], [place] [phone] Referring Physician Internal Medicine 05/18/24
--- OUTSIDE RECORDS SUMMARY | 2024-09-14 17:43 | XMS_ITS | Encounter Summary ---
Author Organization [facility] Address [address] [place] [address] Phone Care Team Providers Care Recreation Engineer Name Role Phone Janet Moss RN Unavailable [phone] Alex Quang Anais DO Unavailable [phone] Angella Han STAFF DEVELOPER Primary Care Provider [phone] Reason for Visit * Reason Onset Date Comments Scheduling Appointments 09/13/2024 Encounter Details Date Type Department Care Team (Late st Contact Info) Description 09/13/2024 Telephone [facility] Scheduling [address] [place] [address] Scar Carroll MD PhD [address] [place] [address] Scheduling Appointments Social History Tobacco Use Types Packs/Day Years Used Date Smoking Tobacco: Every Day Cigarettes 0.3 15 Sex and Gender Information Value Date Recorded Sex Assigned at Not on file 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 [address] [place] [address] Wharf Tender Head 10/06/22 Quang Johnson DO [address] [place] [address] Referring Physician Internal Medicine 05/18/24 documented as of this encounter
--- OUTSIDE RECORDS SUMMARY | 2024-09-14 17:44 | XMS_ITS | Encounter Summary ---
Author Organization [facility] Address [address] [place] [address] Care Team Providers Care Player Manager Name Role Phone Angella Han IVA Primary Care Provider [phone] Encounter Details Date Type Department Care Team (Late st Contact Info) Description 09/13/2024 2:20 PM CDT Hospital Encounter [facility] [address] [place], [place] [id number] [place] [address] [place], [place] [id number] Josey Phillips MD [address] [place] [address] Xavier Marcus MD [address] [facility] [address] [place] [address] Arrived Social History Tobacco Use [...] on file 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 [address] Procedure(s): XR ABD KUB Date of service: [...] Procedure Note Tobin Landaverde MD - 09/14/2024 [facility] [address] [facility] [place] [address] Procedure(s): XR ABD KUB Date of service: [...] Visit Diagnoses Diagnosis End stage renal disease ([facility]) End stage renal disease documented in this encounter Care Teams Player Manager Relationship Specialty Start Date End Date Angella Han NP [address] [id number] PCP - General Nurse Practitioner Family 09/13/24 documented as of this encounter
--- OUTSIDE RECORDS SUMMARY | 2024-09-14 17:44 | XMS_ITS | Encounter Summary ---
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
[2024-09-14] MEDS: MAGNESIUM SULF 2 GM/WATER 50ML 2 GM/50 ML BAG IVPB (17:48)
[2024-09-14 17:58] LABS: Hematocrit 29.8 % (42.0-52.0); Hemoglobin 10.0 g/dL (14.0-18.0); Immature Granulocyte Percent A 0.3 % (0-0.5); Lymphocytes Absolute Auto 1.56 K/mm3 (0.9-3.2); Mean Corpuscular HGB Conc 33.6 g/dl (32-36); Mean Corpuscular Hemoglobin 31.0 pg (26-34); Mean Corpuscular Volume 92.3 fl (80-100); Nucleated Red Blood Cells Absolute Auto 0.000 K/mm3 (0.0-0.012); Nucleated Red Blood Cells Perc 0.0 % (0.0-0.2); Platelet Count Result 398 k/mm3 (150-375); Red Blood Count 3.23 M/mm3 (4.6-6.20); White Blood Count 12.5 K/mm3 (4.5-10.0)
[2024-09-14 18:15] LABS: Alanine Aminotransferase 12 U/L (6-50); Albumin Level 3.5 g/dL (3.5-5.1); Alkaline Phosphatase 102 U/L (38-126); Anion Gap 22 mmol/L (4-12); Aspartate Amino Transferase 19 U/L (17-59); Bilirubin,Total 0.4 mg/dL (0.2-1.3); Blood Urea Nitrogen 67 mg/dL (9-20); Calcium 7.8 mg/dL (8.4-10.2); Carbon Dioxide 14 mmol/L (22-30); Chloride 80 mmol/L (98-107); Glucose 91 mg/dL (65-110); Magnesium 1.7 mg/dL (1.6-2.3); Potassium 4.6 mmol/L (3.4-5.0); Sodium 116 mmol/L (137-145); Total Protein 6.1 g/dL (6.3-8.2)
[2024-09-14 18:21] LABS: INR 1.1; Prothrombin Time 14.0 Seconds (11.1-14.7)
[2024-09-14 18:22] LABS: Partial Thromboplastin Time 42.4 Seconds (22.3-36.8)
[2024-09-14] MEDS: ONDANSETRON INJ 4 MG/2 ML VIAL IV PUSH (18:44)
[2024-09-14] MEDS: FUROSEMIDE INJ 100 MG/10 ML VIAL 80 MG IV PUSH (18:44)
[2024-09-14 18:54] LABS: Estimated CRCL calculation 6 ml/min; Estimated Glomerular Filt Rate 3; NT Pro B Type Natriuretic Pept 22800 pg/mL (19.9-100)
[2024-09-14] MEDS: SACUBITRIL/VALSARTAN 49-51 MG TABLET 1 TABLET PO (19:13)
--- NOTE | 2024-09-14 21:27 | ADMGEN ---
This patient, Real Rolon, was admitted to IMU Room 204-01. Patient/family oriented to hospital policies and general routines including ID bracelet, bed and alarms, visiting hours, pain management, procedures, bathroom and other care routines, personal items, smoking policy, room service/diet, and visiting hours. Information on how to activate the Rapid Response Team has been discussed. Patient/Family are encouraged to report perceived risks to care and to ask questions if they do not understand what they are told or what they should do.
--- NOTE | 2024-09-14 23:07 | PM.IMHP ---
H&P: HPI History of Present Illness Date/Time: 09/14/24 23:07 Chief Complaint: Shortness of breath Narrative: 54-year-old male on peritoneal dialysis reports [facility] on 09/14/2024 with complaint of shortness of breath swelling and wheezing due to the inability to perform dialysis at home. He stated his machine is not been working properly for a week. He was only able to run 3 hours of peritoneal dialysis. He went to [facility] and reportedly his dialysis catheter was working. Dr. Marcus was contacted and he was advised to present to the ER. Reports increased swelling in his legs abdomen and arms with shortness of breath and wheezing. Reports he barely makes any urine, it is on and off. Your evaluation revealed sodium 116, BUN 67, serum creatinine 16.52. Chest x-ray demonstrating mild pulmonary edema. He was given Zofran, Lasix, Solu-Medrol, DuoNeb, Coreg, Entresto, magnesium. Dr. Marcus contacted from the ER. Advise 1500 cc fluid restriction. Review of Systems Review of Systems: All systems reviewed & are unremarkable except as noted in HPI and below (HPI) [facility] Past Medical History Medical History Peritoneal dialysis catheter in place Polyneuropathy HTN (hypertension) Vitamin D3 deficiency Surgical History Surgical History History of appendectomy Family History Family History Father Hypertension Social History Social History Social History: Lives alone in an apartment. No pets. Smoking packs per day: 0.25 Smoking cigarettes per day: 5.0 Years smoked: 20 Smoking pack-years: 5.00 Smoking status: Former smoker Tobacco type: cigarettes Alcohol intake: unknown Alcohol use details: rarely Substance use: current Substance use type: marijuana Other substance usage details: OCCASIONAL Do You Feel Safe in your Home?: Yes Lack of Transportation: No Lack of Food: Never True Current Housing: I Have Housing Concerned About Future Housing: No Difficulty Paying Gas/Electric Bills: No Difficulty Paying for Meds: No Currently Unemployed: No Education: Bachelor's Degree Difficulty w/ Childcare or Family Care: No Living arrangements: with family Occupation/Education: unemployed Gender identity (if verbalized by the patient): Male Sexual Orientation (if Verbalized by the Patient): Straight or Heterosexual Spiritual care concerns: No Agree to blood products: Yes Meds Home Medications and Allergies Home Medications ?Medication ?Instructions ?Recorded ?Confirmed ?Type gentamicin 0.1 % topical cream 1 applic topical TID PRN DIALYSIS 08/31/22 09/14/24 History CATH. calcium carbonate (Tums) 200 mg PO HS PRN Indigestion 07/20/23 09/14/24 History cinacalcet 30 mg tablet 90 mg PO DAILY 07/20/23 09/14/24 History multivitamin 1 tablet PO DAILY 07/29/23 09/14/24 History ferric citrate 210 mg iron tablet 210 mg PO TIDWM 09/28/23 09/14/24 History (Auryxia) omeprazole 20 mg capsule,delayed 20 mg PO DAILY #90 caps 03/08/24 09/14/24 Rx release escitalopram oxalate 10 mg tablet 10 mg PO DAILY 03/09/24 09/14/24 History albuterol sulfate 90 mcg/actuation 2 inh inhalation QID PRN shortness 03/29/24 09/14/24 History aerosol inhaler of breath or wheezing calcium acetate(phosphat bind) 667 2,668 mg PO TIDWM 03/29/24 09/14/24 History mg capsule melatonin 10 mg capsule 20 mg PO HS 03/29/24 09/14/24 History ondansetron 4 mg disintegrating 8 mg translingual Q8H PRN nausea 03/29/24 09/14/24 History tablet and vomiting torsemide 100 mg tablet See Rx Instructions .Route 05/08/24 09/14/24 Rx .COMPLEX #30 tabs dapagliflozin propanediol 10 mg 10 mg PO DAILY #30 tabs 05/12/24 09/14/24 Rx tablet (Farxiga) sacubitril 49 mg-valsartan 51 mg 1 tablet PO BID #60 tabs 05/12/24 09/14/24 Rx tablet (Entresto) nortriptyline 50 mg capsule 50 mg PO DAILY #90 caps 05/15/24 09/14/24 Rx diphenoxylate-atropine 2.5 1 tablet PO QID PRN diarrhea #60 05/29/24 09/14/24 Rx mg-0.025 mg tablet tabs gabapentin 300 mg capsule See Rx Instructions .Route 07/18/24 09/14/24 Rx .COMPLEX #270 caps carvedilol 25 mg tablet 25 mg PO Q12H #60 tabs 08/15/24 09/14/24 Rx hydrocodone 5 mg-acetaminophen 325 1 tablet PO Q8H PRN Pain Rated 08/15/24 09/14/24 Rx mg tablet 4-10 #90 tabs adbfilba-sfalsmppz-sfsfrhgzn 3.5 4 drop RIGHT EAR Q8H 7 days #10 mL 09/02/24 09/14/24 Rx mg-10,000 unit/mL-1 % ear drops,susp buspirone 10 mg tablet See Rx Instructions .Route 09/11/24 09/14/24 Rx .COMPLEX #90 tabs ciprofloxacin 0.3 %-dexamethasone 4 drp RIGHT EAR Q12H 7 days #7.5 mL 09/11/24 09/14/24 Rx 0.1 % ear drops,suspension carvedilol 6.25 mg tablet 6.25 mg PO Q12H 09/14/24 09/14/24 History Allergies Allergy/AdvReac Type Severity Reaction Status Date / Time No Known Allergies Allergy Verified 09/14/24 18:37 Vital Signs Vital Signs - 24 hr 09/14/24 15:56 09/14/24 17:32 09/14/24 17:39 Temperature 97.9 F Pulse Rate 78 79 78 Respiratory Rate 18 24 H 17 Blood Pressure 160/108 H Pulse Oximetry 97 100 Oxygen Delivery Room Air Oxygen Flow Rate 09/14/24 17:40 09/14/24 17:45 09/14/24 17:46 Temperature Pulse Rate 77 79 79 Respiratory Rate 20 25 H 23 H Blood Pressure 185/113 H Pulse Oximetry 100 98 Oxygen Delivery Oxygen Flow Rate 09/14/24 18:00 09/14/24 18:02 09/14/24 18:05 Temperature Pulse Rate 78 78 77 Respiratory Rate 15 18 20 Blood Pressure 197/110 H Pulse Oximetry 100 Oxygen Delivery Oxygen Flow Rate 09/14/24 18:13 09/14/24 18:15 09/14/24 18:16 Temperature Pulse Rate 80 78 Respiratory Rate 20 19 16 Blood Pressure 205/149 H Pulse Oximetry 97 93 Oxygen Delivery Oxygen Flow Rate 09/14/24 18:26 09/14/24 18:30 09/14/24 18:32 Temperature Pulse Rate Respiratory Rate 17 18 18 Blood Pressure 190/108 H 180/108 H Pulse Oximetry 95 Oxygen Delivery Oxygen Flow Rate 09/14/24 18:45 09/14/24 19:13 09/14/24 19:17 Temperature Pulse Rate 82 80 80 Respiratory Rate 17 15 Blood Pressure 153/89 H Pulse Oximetry 92 96 Oxygen Delivery Oxygen Flow Rate 09/14/24 20:53 09/14/24 21:39 09/14/24 22:00 Temperature 98.1 F Pulse Rate 92 82 80 Respiratory Rate 23 H 21 H Blood Pressure 162/89 H 173/95 H Pulse Oximetry 94 93 Oxygen Delivery Oxygen Flow Rate 09/14/24 22:39 Temperature Pulse Rate Respiratory Rate Blood Pressure Pulse Oximetry 93 Oxygen Delivery Nasal Cannula Oxygen Flow Rate 2 Exam Const: General: comfortable and no acute distress Other: A&O x3 HENMT: Mouth: Yes moist mucous membranes Eyes: Pupils: Equal, round and reactive pupils present Neck: Neck: supple Resp: Effort & Inspection: normal respiratory effort Other: Crackles Cardio: Rate: regular rate Rhythm: regular rhythm GI: Inspection: distended Other: Dullness to percussion Neuro: Motor exam (neuro): 5/5 motor strength present throughout Extrem: General: edema H&P: Results Labs Labs: Short CBC 09/14/24 Range/Units 17:52 WBC 12.5 H (4.5-10.0) K/mm3 Hgb 10.0 L (14.0-18.0) g/dL Hct 29.8 L (42.0-52.0) % Plt Count 398 H (150-375) k/mm3 BMP 09/14/24 17:52 Sodium 116 L* Potassium 4.6 Chloride 80 L Carbon Dioxide 14 L BUN 67 H Creatinine 16.52 H Glucose 91 Calcium 7.8 L Liver Function 09/14/24 Range/Units 17:52 Total Bilirubin 0.4 (0.2-1.3) mg/dL AST 19 (17-59) U/L ALT 12 (6-50) U/L Alkaline Phosphatase 102 (38-126) U/L Albumin 3.5 (3.5-5.1) g/dL Assessment and Plan Assessment and plan (1) End-stage renal disease on peritoneal dialysis: Code(s): N18.6 - End stage renal disease; Z99.2 - Dependence on renal dialysis Status: Acute (2) Acute hyponatremia: Code(s): E87.1 - Hypo-osmolality and hyponatremia Status: Acute (3) Hypoxemia: Code(s): R09.02 - Hypoxemia Status: Acute (4) Anasarca: Code(s): R60.1 - Generalized edema Status: Acute Plan 54-year-old male on peritoneal dialysis reports [facility] on 09/14/2024 with complaint of shortness of breath swelling and wheezing due to the inability to perform dialysis at home. He stated his machine is not been working properly for a week. He was only able to run 3 hours of peritoneal dialysis. He went to [facility] and reportedly his dialysis catheter was working. Dr. Marcus was contacted and he was advised to present to the ER. Reports increased swelling in his legs abdomen and arms with shortness of breath and wheezing. Reports he barely makes any urine, it is on and off. Your evaluation revealed sodium 116, BUN 67, serum creatinine 16.52. Chest x-ray demonstrating mild pulmonary edema. He was given Zofran, Lasix, Solu-Medrol, DuoNeb, Coreg, Entresto, magnesium. Dr. Marcus contacted from the ER. Advise 1500 cc fluid restriction. ----- Dialysis was attempted. Peritoneal port not working. General surgery contacted for placement of temporary dialysis catheter. Patient currently resting comfortably with no wheezing. He denies shortness of breath. On 2.5 L nasal cannula. repeat BMP to assess sodium now. Patient is currently not induce any urine. Continue Lasix 80 mg IV b.i.d.. Full code. SCDs. Saline lock IV. NPO. Hospitalist MIPS Advance Care Plan I have confirmed that the patient's Advanced Care Plan is present, code status is documented, or surrogate decision maker is listed in patient medical record.: Yes Medication Reconciliation I have utilized all available resources to obtain, update and review the patients current medications (includes all prescriptions, OTC, herbals, cannabis, and nutritional supplements).: Yes
[2024-09-14 23:51] LABS: Anion Gap 23 mmol/L (4-12); Blood Urea Nitrogen 69 mg/dL (9-20); Calcium 8.0 mg/dL (8.4-10.2); Carbon Dioxide 13 mmol/L (22-30); Chloride 79 mmol/L (98-107); Glucose 120 mg/dL (65-110); Potassium 5.4 mmol/L (3.4-5.0); Sodium 115 mmol/L (137-145)
[2024-09-14 23:57] LABS: Estimated CRCL calculation 6 ml/min; Estimated Glomerular Filt Rate 3
[2024-09-15] VITALS (30 sets, daily range): BP systolic 125–171; BP diastolic 77–100; PULSE 84–96; RESP 18–23; TEMP 36.3–36.8; O2SAT 90–99
[2024-09-15 02:36] LABS: Alveolar/Arterial O2 Gradient 68.7 mmHg; Fractional Inspired Oxygen 28 %; HCO3 ABG 16.4 mEq/l (22.0-26.0); Oxygen Content ABG 16.1 %vol (16.0-22.0); Oxygen Saturation ABG 93.5 % (95.0-100.0); PCO2 ABG 42.3 mmHg (35.0-45.0); PO2 ABG 81.0 mmHg (80.0-100.0); PO2 FiO2 Ratio Arterial Blood 2.89 %
[2024-09-15 02:40] LABS: Liters per Minute 2.0 LPM; Modified Allen's Test Pass; Site Drawn RIGHT RADIAL
[2024-09-15] MEDS: FUROSEMIDE INJ 100 MG/10 ML VIAL 80 MG IV PUSH ×3 (02:53→16:52)
[2024-09-15] MEDS: IPRATROPIUM 0.5 MG/ALBUTEROL SULFATE 2.5 MG AMPUL.NEB 3 ML INHALATION (02:59)
[2024-09-15 03:56] LABS: Hematocrit 32.1 % (42.0-52.0); Hemoglobin 10.9 g/dL (14.0-18.0); Mean Corpuscular HGB Conc 34.0 g/dl (32-36); Mean Corpuscular Hemoglobin 31.2 pg (26-34); Mean Corpuscular Volume 92.0 fl (80-100); Platelet Count Result 402 k/mm3 (150-375); Red Blood Count 3.49 M/mm3 (4.6-6.20); White Blood Count 11.3 K/mm3 (4.5-10.0)
[2024-09-15 04:17] LABS: Anisocytosis 1+; Blood Urea Nitrogen 68 mg/dL (9-20); Carbon Dioxide 12 mmol/L (22-30); Lymphocytes Absolute Manual 0.22 K/mm3 (1.1-4.5); Lymphocytes Percent Manual 2.0 % (18-44); Magnesium 2.0 mg/dL (1.6-2.3); Monocytes Absolute Manual 0.11 K/mm3 (0.1-0.90); Monocytes Percent Manual 1 % (3-9); Neutrophils Percent Manual 97 % (46-73); Schistocytes None Seen; Sodium 113 mmol/L (137-145); Total Cells Counted 100
[2024-09-15 04:18] LABS: Band Neutrophils Percent 0 % (0-6); Neutrophils Absolute Manual 10.96 K/mm3 (1.3-6.7)
[2024-09-15 04:55] LABS: Anion Gap 21 mmol/L (4-12); Calcium 8.1 mg/dL (8.4-10.2); Chloride 80 mmol/L (98-107); Estimated CRCL calculation 6 ml/min; Estimated Glomerular Filt Rate 3; Glucose 142 mg/dL (65-110); Potassium 5.3 mmol/L (3.4-5.0)
--- NOTE | 2024-09-15 09:05 | P.CONNP_ITS ---
Assessment and Plan Assessment and plan (1) ESRD on dialysis: Code(s): N18.6 - End stage renal disease; Z99.2 - Dependence on renal dialysis Status: Acute Assessment and Plan: The patient is on peritoneal dialysis nightly. He has not had dialysis in almost a week. Surprisingly his BUN is not too bad at 68. Possibly this is because of dilution with the 17L keeping the BUN down- even though I am sure he is accumulating urea nitrogen. He has no uremic symptoms. His PD catheter is not working. The main reason for this generally is constipation. He says he does have bowel movements every day however they are small pebbly bowel movements. Will fluid restrict and sodium restrict Dr. Petty is going to place a hemodialysis catheter Will do regular hemodialysis I will give the patient cathartics after the catheter has been placed. (2) Pulmonary edema: Code(s): J81.1 - Chronic pulmonary edema Status: Acute Assessment and Plan: The patient has pulmonary edema from volume overload. He has had a recent echocardiogram which does show reduced ejection fraction and he is on medications for this. (3) Anemia of chronic disease: Code(s): D63.8 - Anemia in other chronic diseases classified elsewhere Status: Acute Assessment and Plan: Hemoglobin is 10.9, doing well. Will give him Epogen. (4) Hyponatremia: Code(s): E87.1 - Hypo-osmolality and hyponatremia Status: Acute Assessment and Plan: The patient has a low sodium. This has gradually dropped overnight because of water drinking. The sodium will come up with his dialysis I am specifically not giving him medication to get it up. If I try 3%, it will probably increase his LVEDP and make his shortness of breath worse. Conivaptan, etc., would do no good since he makes no urine. The only way to do this would be to remove free water which we can do with the dialysis. (5) Neuropathy: Code(s): G62.9 - Polyneuropathy, unspecified Status: Acute Assessment and Plan: Etiology unclear. He is managed as an outpatient by neurology (6) Metabolic acidosis: Code(s): E87.20 - Acidosis, unspecified Status: Acute Assessment and Plan: Probably from lack of dialysis and also uremic toxins. Will give sodium bicarb tablets. Dialysis should help this as well. History of Present Illness Reason for Consult Consult date: 09/15/24 Chief Complaint Chief complaint: Anasarca History of Present Illness Narrative: Real is a very pleasant 54-year-old gentleman who has multiple medical problems including end-stage renal disease on peritoneal dialysis, hypertension, congestive heart failure, chronic hyponatremia, anemia, renal osteodystrophy, anxiety/depression, peripheral neuropathy, vitamin-D deficiency. Patient says that over the last week his machine has not been working. He has been getting alarms. Early on he called [facility] for help and they give him some tips. However these did not work. That a couple of days ago she called Jamila and talked to her about the issues. But then he had gained quite a bit of weight. He was not short of breath at the time though. We got an x-ray. At 1st he was going to come to [place] but then he was unable to get transportation so he was able to get it at [facility] the following day. That x- ray showed good placement of the catheter. So he went to see Jamila yesterday. She was able to flush and fill the catheter using the machine in the office. So it was felt that probably his machine was bad at home. So he was sent to [place] because by then he was so short of breath and swollen. So he went to the ER. In the ER he was evaluated and found to have a low sodium plus volume overload. He was admitted to the floor. It was around 10:00 a.m. by the time he got to the floor. The dialysis nurse hooked him up and immediately got alarms. The nurse tried flushing and draining with a syringe but this still did not work. So I consulted surgery to place a hemo catheter just so we can get some fluid off. I talked with him this morning as well and he is going to come between procedures to do the catheter. I did talk with Jamila, and Jamila talked with Blake and they compared notes.. It is still not clear why the catheter is not working. The patient does have some shortness of breath but it is not severe. He is very fluid overloaded, about 17kilos above his dry weight. He has been drinking fluid of course and the sodium level is low. He does not make urine so this is not SIADH. Mental status is good. He has no twitching or tremor. No history of seizures. Review of Systems 2 Constitutional: Constitutional: Reports no additional constitutional complaints Eyes: Eyes: Reports no additional eye complaints ENT: Reports system reviewed and no additional complaints, except as documented Cardiovascular: Cardiovascular: Reports no additional cardiovascular complaints Respiratory: Respiratory: Reports no additional respiratory complaints Gastrointestinal: Gastrointestinal: Reports no additional gastrointestinal complaints Genitourinary: Genitourinary: Reports no additional male genitourinary complaints Musculoskeletal: Musculoskeletal: Reports no additional musculoskeletal complaints Integumentary/Breasts: Skin/Breast: Reports system reviewed and no additional complaints, except as docu Neurologic: Reports system reviewed and no additional complaints, except as documented Psychiatric: Psychiatric: Reports no additional psychiatric complaints Endocrine: Endocrine: Reports no additional endocrine complaints [facility] Past Medical History Medical History Peritoneal dialysis catheter in place Polyneuropathy HTN (hypertension) Vitamin D3 deficiency Surgical History Surgical History History of appendectomy Family History Family History Father Hypertension Social History Social History Social History: Lives alone in an apartment. No pets. Smoking packs per day: 0.25 Smoking cigarettes per day: 5.0 Years smoked: 20 Smoking pack-years: 5.00 Smoking status: Former smoker Tobacco type: cigarettes Alcohol intake: unknown Alcohol use details: rarely Substance use: current Substance use type: marijuana Other substance usage details: OCCASIONAL Do You Feel Safe in your Home?: Yes Lack of Transportation: No Lack of Food: Never True Current Housing: I Have Housing Concerned About Future Housing: No Difficulty Paying Gas/Electric Bills: No Difficulty Paying for Meds: No Currently Unemployed: No Education: Bachelor's Degree Difficulty w/ Childcare or Family Care: No Living arrangements: with family Occupation/Education: unemployed Gender identity (if verbalized by the patient): Male Sexual Orientation (if Verbalized by the Patient): Straight or Heterosexual Spiritual care concerns: No Agree to blood products: Yes Meds Home Medications and Allergies Home Medications ?Medication ?Instructions ?Recorded ?Confirmed ?Type gentamicin 0.1 % topical cream 1 applic topical TID PRN DIALYSIS 08/31/22 09/14/24 History CATH. calcium carbonate (Tums) 200 mg PO HS PRN Indigestion 07/20/23 09/14/24 History cinacalcet 30 mg tablet 90 mg PO DAILY 07/20/23 09/14/24 History multivitamin 1 tablet PO DAILY 07/29/23 09/14/24 History ferric citrate 210 mg iron tablet 210 mg PO TIDWM 09/28/23 09/14/24 History (Auryxia) omeprazole 20 mg capsule,delayed 20 mg PO DAILY #90 caps 03/08/24 09/14/24 Rx release escitalopram oxalate 10 mg tablet 10 mg PO DAILY 03/09/24 09/14/24 History albuterol sulfate 90 mcg/actuation 2 inh inhalation QID PRN shortness 03/29/24 09/14/24 History aerosol inhaler of breath or wheezing calcium acetate(phosphat bind) 667 2,668 mg PO TIDWM 03/29/24 09/14/24 History mg capsule melatonin 10 mg capsule 20 mg PO HS 03/29/24 09/14/24 History ondansetron 4 mg disintegrating 8 mg translingual Q8H PRN nausea 03/29/24 09/14/24 History tablet and vomiting torsemide 100 mg tablet See Rx Instructions .Route 05/08/24 09/14/24 Rx .COMPLEX #30 tabs dapagliflozin propanediol 10 mg 10 mg PO DAILY #30 tabs 05/12/24 09/14/24 Rx tablet (Farxiga) sacubitril 49 mg-valsartan 51 mg 1 tablet PO BID #60 tabs 05/12/24 09/14/24 Rx tablet (Entresto) nortriptyline 50 mg capsule 50 mg PO DAILY #90 caps 05/15/24 09/14/24 Rx diphenoxylate-atropine 2.5 1 tablet PO QID PRN diarrhea #60 05/29/24 09/14/24 Rx mg-0.025 mg tablet tabs gabapentin 300 mg capsule See Rx Instructions .Route 07/18/24 09/14/24 Rx .COMPLEX #270 caps carvedilol 25 mg tablet 25 mg PO Q12H #60 tabs 08/15/24 09/14/24 Rx hydrocodone 5 mg-acetaminophen 325 1 tablet PO Q8H PRN Pain Rated 08/15/24 09/14/24 Rx mg tablet 4-10 #90 tabs iovpagwg-llvihiwwf-wkzuhobjh 3.5 4 drop RIGHT EAR Q8H 7 days #10 mL 09/02/24 09/14/24 Rx mg-10,000 unit/mL-1 % ear drops,susp buspirone 10 mg tablet See Rx Instructions .Route 09/11/24 09/14/24 Rx .COMPLEX #90 tabs ciprofloxacin 0.3 %-dexamethasone 4 drp RIGHT EAR Q12H 7 days #7.5 mL 09/11/24 09/14/24 Rx 0.1 % ear drops,suspension carvedilol 6.25 mg tablet 6.25 mg PO Q12H 09/14/24 09/14/24 History Allergies Allergy/AdvReac Type Severity Reaction Status Date / Time No Known Allergies Allergy Verified 09/14/24 18:37 Vital Signs Vital Signs - 24 hr 09/14/24 15:56 09/14/24 17:32 09/14/24 17:39 Temperature 97.9 F Pulse Rate 78 79 78 Respiratory Rate 18 24 H 17 Blood Pressure 160/108 H Pulse Oximetry 97 100 Oxygen Delivery Room Air Oxygen Flow Rate Fraction of Inspired Oxygen 09/14/24 17:40 09/14/24 17:45 09/14/24 17:46 Temperature Pulse Rate 77 79 79 Respiratory Rate 20 25 H 23 H Blood Pressure 185/113 H Pulse Oximetry 100 98 Oxygen Delivery Oxygen Flow Rate Fraction of Inspired Oxygen 09/14/24 18:00 09/14/24 18:02 09/14/24 18:05 Temperature Pulse Rate 78 78 77 Respiratory Rate 15 18 20 Blood Pressure 197/110 H Pulse Oximetry 100 Oxygen Delivery Oxygen Flow Rate Fraction of Inspired Oxygen 09/14/24 18:13 09/14/24 18:15 09/14/24 18:16 Temperature Pulse Rate 80 78 Respiratory Rate 20 19 16 Blood Pressure 205/149 H Pulse Oximetry 97 93 Oxygen Delivery Oxygen Flow Rate Fraction of Inspired Oxygen 09/14/24 18:26 09/14/24 18:30 09/14/24 18:32 Temperature Pulse Rate Respiratory Rate 17 18 18 Blood Pressure 190/108 H 180/108 H Pulse Oximetry 95 Oxygen Delivery Oxygen Flow Rate Fraction of Inspired Oxygen 09/14/24 18:45 09/14/24 19:13 09/14/24 19:17 Temperature Pulse Rate 82 80 80 Respiratory Rate 17 15 Blood Pressure 153/89 H Pulse Oximetry 92 96 Oxygen Delivery Oxygen Flow Rate Fraction of Inspired Oxygen 09/14/24 20:53 09/14/24 21:39 09/14/24 22:00 Temperature 98.1 F Pulse Rate 92 82 80 Respiratory Rate 23 H 21 H Blood Pressure 162/89 H 173/95 H Pulse Oximetry 94 93 Oxygen Delivery Oxygen Flow Rate Fraction of Inspired Oxygen 09/14/24 22:39 09/14/24 23:50 09/15/24 00:00 Temperature Pulse Rate 86 Respiratory Rate Blood Pressure Pulse Oximetry 93 93 Oxygen Delivery Nasal Cannula Nasal Cannula Oxygen Flow Rate 2 2 Fraction of Inspired Oxygen 09/15/24 00:13 09/15/24 02:00 09/15/24 03:00 Temperature 98.2 F Pulse Rate 86 88 96 Respiratory Rate 23 H 20 Blood Pressure 168/87 H Pulse Oximetry 96 Oxygen Delivery Oxygen Flow Rate Fraction of Inspired Oxygen 09/15/24 03:02 09/15/24 03:14 09/15/24 03:41 Temperature Pulse Rate 93 Respiratory Rate 20 Blood Pressure Pulse Oximetry 96 96 Oxygen Delivery Nasal Cannula Nasal Cannula Oxygen Flow Rate 2 2 Fraction of Inspired Oxygen 09/15/24 03:43 09/15/24 04:00 09/15/24 06:00 Temperature 97.8 F Pulse Rate 90 88 87 Respiratory Rate 23 H Blood Pressure 162/95 H Pulse Oximetry 94 Oxygen Delivery Oxygen Flow Rate Fraction of Inspired Oxygen 09/15/24 07:25 09/15/24 08:03 Temperature 98.3 F Pulse Rate 92 Respiratory Rate 22 H Blood Pressure 151/89 H Pulse Oximetry 90 93 Oxygen Delivery Nasal Cannula Oxygen Flow Rate 3 Fraction of Inspired Oxygen 32 Exam 2 Narrative: Exam Narrative: Well developed well-nourished in no acute distress Skin is warm and dry without rash Head normocephalic atraumatic Eyes normal sclerae and conjunctivae Mouth normal lips teeth and gums Neck no nodes no thyromegaly no carotid bruits Axillae no nodes Back no CVA tenderness Lungs symmetric and clear to auscultation and percussion Heart regular rate and rhythm without rub or gallop Abdomen bowel sounds positive soft nontender, no HSM, masses, or bruits. Extremities no cyanosis, clubbing, or edema Pulses 2+ equal in radial arteries Psychological not anxious or depressed Neuro alert and oriented x3 motor 5/5 cranial nerves 2-12 intact reflexes 2+ and equal in the biceps and patellar tendons cerebellar normal rapid alternating movements Results Lab Results 09/15/24 03:45 09/15/24 03:45 Lab results: Most recent lab results ABG pH 7.206 (7.350-7.450) L* 09/15/24 02:27 ABG pCO2 42.3 mmHg (35.0-45.0) 09/15/24 02:27 ABG pO2 81.0 mmHg (80.0-100.0) 09/15/24 02:27 ABG HCO3 16.4 mEq/l (22.0-26.0) L 09/15/24 02:27 ABG O2 Saturation 93.5 % (95.0-100.0) L 09/15/24 02:27 Calcium 8.1 mg/dL (8.4-10.2) L 09/15/24 03:45 Calcium Cancelled 09/15/24 03:45 Phosphorus 13.5 mg/dL (2.5-4.5) H 09/15/24 03:45 Magnesium 2.0 mg/dL (1.6-2.3) 09/15/24 03:45
[2024-09-15] MEDS: SODIUM BICARBONATE TAB 650 MG TABLET 1300 MG PO ×2 (09:12→18:20)
--- NOTE | 2024-09-15 09:20 | P.PNCROSS_ITS ---
Event Note Event Note Event Note: Patient is on peritoneal dialysis. The catheter worked well yesterday but unfo rtunately today is not working. Nurses on his way in to see if he has any other ideas. Will try cathartics seen at 9:00am
--- NOTE | 2024-09-15 10:40 | P.PNIM_ITS ---
Progress Note: A&P Assessment and Plan (1) End-stage renal disease on peritoneal dialysis: Code(s): N18.6 - End stage renal disease; Z99.2 - Dependence on renal dialysis Status: Acute (2) Acute hyponatremia: Code(s): E87.1 - Hypo-osmolality and hyponatremia Status: Acute (3) Hypoxemia: Code(s): R09.02 - Hypoxemia Status: Acute (4) Anasarca: Code(s): R60.1 - Generalized edema Status: Acute Plan 54-year-old male on peritoneal dialysis reports [place] [facility] on 09/14/2024 with complaint of shortness of breath swelling and wheezing due to the inability to perform dialysis at home. He stated his machine is not been working properly for a week. He was only able to run 3 hours of peritoneal dialysis. He went to [facility] and reportedly his dialysis catheter was working. Dr. Marcus was contacted and he was advised to present to the ER. Reports increased swelling in his legs abdomen and arms with shortness of breath and wheezing. Reports he barely makes any urine, it is on and off. ER evaluation revealed sodium 116, BUN 67, serum creatinine 16.52. Chest x-ray demonstrating mild pulmonary edema. He was given Zofran, Lasix, Solu-Medrol, DuoNeb, Coreg, Entresto, magnesium. Dr. Marcus contacted from the ER. Advise 1500 cc fluid restriction. Re-attempted peritoneal catheter dialysis overnight and was unsuccessful. Since then plans to initiate hemodialysis has been main. General surgery consulted for temporary dialysis catheter placement today following which she will be dialyzed. There will be another re attempt of peritoneal dialysis evaluate the catheter issue in processes Hyponatremia likely due to renal failure Fluid overload End-stage renal disease on peritoneal dialysis hypertension Hyperlipidemia Diastolic dysfunction Cardiomyopathy DVT prophylaxis SCDs Code status full code Subjective Date/time seen: 09/15/24 10:40 Interval history: No overnight events. Reports shortness of breath which is stable. Labs reviewed. Discussed with Nephrology. Review of Systems Review of Systems: All systems reviewed & are unremarkable except as noted in HPI and below (HPI) Exam Narrative: GENERAL: Chronically ill-appearing, NAD HEAD: Normocephalic, atraumatic. EYES: PERRLA and EOMI. ENT: Nares clear, no rhinorrhea or epistaxis. Mucous membranes moist. NECK: Supple. CHEST: Mild expiratory wheezing throughout all lung [place]. Speaking in full sentences, in no respiratory distress HEART: Regular rate and rhythm. No murmur heard. Normal peripheral pulses. ABDOMEN: Abdomen distended, nontender peritoneal catheter in-situ EXTREMITIES: Normal range of motion. Pitting edema to bilateral lower extremities SKIN: Warm, dry, no rash. NEURO: No focal deficits. Alert and oriented x3 Objective Data Vital Signs Vital Signs: Vital Signs - 24 hr 09/14/24 15:56 09/14/24 17:32 09/14/24 17:39 Temperature 97.9 F Pulse Rate 78 79 78 Respiratory Rate 18 24 H 17 Blood Pressure 160/108 H Pulse Oximetry 97 100 Oxygen Delivery Room Air Oxygen Flow Rate Fraction of Inspired Oxygen 09/14/24 17:40 09/14/24 17:45 09/14/24 17:46 Temperature Pulse Rate 77 79 79 Respiratory Rate 20 25 H 23 H Blood Pressure 185/113 H Pulse Oximetry 100 98 Oxygen Delivery Oxygen Flow Rate Fraction of Inspired Oxygen 09/14/24 18:00 09/14/24 18:02 09/14/24 18:05 Temperature Pulse Rate 78 78 77 Respiratory Rate 15 18 20 Blood Pressure 197/110 H Pulse Oximetry 100 Oxygen Delivery Oxygen Flow Rate Fraction of Inspired Oxygen 09/14/24 18:13 09/14/24 18:15 09/14/24 18:16 Temperature Pulse Rate 80 78 Respiratory Rate 20 19 16 Blood Pressure 205/149 H Pulse Oximetry 97 93 Oxygen Delivery Oxygen Flow Rate Fraction of Inspired Oxygen 09/14/24 18:26 09/14/24 18:30 09/14/24 18:32 Temperature Pulse Rate Respiratory Rate 17 18 18 Blood Pressure 190/108 H 180/108 H Pulse Oximetry 95 Oxygen Delivery Oxygen Flow Rate Fraction of Inspired Oxygen 09/14/24 18:45 09/14/24 19:13 09/14/24 19:17 Temperature Pulse Rate 82 80 80 Respiratory Rate 17 15 Blood Pressure 153/89 H Pulse Oximetry 92 96 Oxygen Delivery Oxygen Flow Rate Fraction of Inspired Oxygen 09/14/24 20:53 09/14/24 21:39 09/14/24 22:00 Temperature 98.1 F Pulse Rate 92 82 80 Respiratory Rate 23 H 21 H Blood Pressure 162/89 H 173/95 H Pulse Oximetry 94 93 Oxygen Delivery Oxygen Flow Rate Fraction of Inspired Oxygen 09/14/24 22:39 09/14/24 23:50 09/15/24 00:00 Temperature Pulse Rate 86 Respiratory Rate Blood Pressure Pulse Oximetry 93 93 Oxygen Delivery Nasal Cannula Nasal Cannula Oxygen Flow Rate 2 2 Fraction of Inspired Oxygen 09/15/24 00:13 09/15/24 02:00 09/15/24 03:00 Temperature 98.2 F Pulse Rate 86 88 96 Respiratory Rate 23 H 20 Blood Pressure 168/87 H Pulse Oximetry 96 Oxygen Delivery Oxygen Flow Rate Fraction of Inspired Oxygen 09/15/24 03:02 09/15/24 03:14 09/15/24 03:41 Temperature Pulse Rate 93 Respiratory Rate 20 Blood Pressure Pulse Oximetry 96 96 Oxygen Delivery Nasal Cannula Nasal Cannula Oxygen Flow Rate 2 2 Fraction of Inspired Oxygen 09/15/24 03:43 09/15/24 04:00 09/15/24 06:00 Temperature 97.8 F Pulse Rate 90 88 87 Respiratory Rate 23 H Blood Pressure 162/95 H Pulse Oximetry 94 Oxygen Delivery Oxygen Flow Rate Fraction of Inspired Oxygen 09/15/24 07:25 09/15/24 08:00 09/15/24 08:03 Temperature 98.3 F Pulse Rate 92 Respiratory Rate 22 H Blood Pressure 151/89 H Pulse Oximetry 90 93 93 Oxygen Delivery Nasal Cannula Nasal Cannula Oxygen Flow Rate 3 2 Fraction of Inspired Oxygen 32 Intake/Output Intake/Output: Intake & Output 09/12/24 09/13/24 09/14/24 09/15/24 23:59 23:59 23:59 23:59 Intake Total 50 Balance 50 Meds/Results Medications: Active Medications Generic Name Dose Route Start Last Admin Trade Name Freq PRN Reason Stop Dose Admin Albuterol 2 puff 09/14/24 22:49 Albuterol Sulfate (*Sp) Aerosol 1 Puff INHALATION QID PRN shortness of breath or wheezing Furosemide 80 mg 09/14/24 18:35 09/15/24 09:12 Furosemide Inj 100 Mg/10 Ml Vial IV PUSH 80 mg BID CARIDAD Administration Albumin Human 50 mls @ 999 mls/hr 09/15/24 09:19 Albutein IVPB 09/16/24 09:18 Q10M PRN HYPOTENSION Ondansetron HCl 4 mg 09/14/24 18:46 Ondansetron Inj 4 Mg/2 Ml Vial IV PUSH Q4H PRN Nausea Sodium Bicarbonate 1,300 mg 09/15/24 09:00 09/15/24 09:12 Sodium Bicarbonate Tab 650 Mg Tablet PO 1,300 mg BIDPC CARIDAD Administration Radiology Results: ITS Impressions Chest X-Ray 09/14/24 18:21 IMPRESSION: 1. Increased interstitial pattern in the bilateral mid and lower lung zones and favor mild pulmonary edema over pneumonia. Head CT 09/15/24 05:11 IMPRESSION: 1. No acute intracranial abnormality. 2: Moderate sinus disease with right mastoid effusion. 3: Chronic right thalamic infarction. Labs Labs: Laboratory Results - last 24 hr 09/14/24 09/14/24 09/14/24 17:52 17:52 17:52 WBC 12.5 H RBC 3.23 L Hgb 10.0 L Hct 29.8 L MCV 92.3 MCH 31.0 MCHC 33.6 RDW 13.2 Plt Count 398 H MPV 8.7 Immature Gran % (Auto) 0.3 Neut % (Auto) 70.5 Lymph % (Auto) 12.5 L [place] % (Auto) 9.3 H Eos % (Auto) 7.0 H Baso % (Auto) 0.4 Lymph # (Auto) 1.56 [place] # (Auto) 1.2 H Eos # (Auto) 0.9 H Baso # (Auto) 0.1 Abs Immat Gran (auto) 0.04 H Absolute Neuts (auto) 8.8 H Absolute Nucleated RBC 0.000 Total Counted Neutrophils % (Manual) Band Neutrophils % Lymphocytes % (Manual) Monocytes % (Manual) Nucleated RBC % 0.0 Abs Neuts (Manual) Abs Lymphs (Manual) Abs Monocytes (Manual) Platelet Estimate Anisocytosis Schistocytes PT 14.0 INR 1.1 APTT 42.4 H Puncture Site ABG pH ABG pCO2 ABG pO2 ABG PO2/FiO2 Ratio ABG HCO3 ABG O2 Saturation ABG O2 Content ABG Base Excess A-a Gradient Oxyhemoglobin Total Hemoglobin O2 Delivery Device O2 Liters/Min FiO2 Sodium 116 L* Potassium 4.6 Chloride 80 L Carbon Dioxide 14 L Anion Gap 22 H BUN 67 H Creatinine 16.52 H Estim Creat Clear Calc 6 Estimated GFR 3 L Glucose 91 POC Capillary Glucose Calcium 7.8 L Phosphorus 12.8 H Cancelled Magnesium 1.7 Cancelled Total Bilirubin 0.4 AST 19 ALT 12 Alkaline Phosphatase 102 NT-Pro-B Natriuret Pep 30031 H Total Protein 6.1 L Albumin 3.5 09/14/24 09/15/24 09/15/24 23:29 02:23 02:27 WBC RBC Hgb Hct MCV MCH MCHC RDW Plt Count MPV Immature Gran % (Auto) Neut % (Auto) Lymph % (Auto) [place] % (Auto) Eos % (Auto) Baso % (Auto) Lymph # (Auto) [place] # (Auto) Eos # (Auto) Baso # (Auto) Abs Immat Gran (auto) Absolute Neuts (auto) Absolute Nucleated RBC Total Counted Neutrophils % (Manual) Band Neutrophils % Lymphocytes % (Manual) Monocytes % (Manual) Nucleated RBC % Abs Neuts (Manual) Abs Lymphs (Manual) Abs Monocytes (Manual) Platelet Estimate Anisocytosis Schistocytes PT INR APTT Puncture Site Right radial ABG pH 7.206 L* ABG pCO2 42.3 ABG pO2 81.0 ABG PO2/FiO2 Ratio 2.89 ABG HCO3 16.4 L ABG O2 Saturation 93.5 L ABG O2 Content 16.1 ABG Base Excess -11.0 A-a Gradient 68.7 Oxyhemoglobin 91.1 Total Hemoglobin 12.5 O2 Delivery Device Nasal cannula O2 Liters/Min 2.0 FiO2 28 Sodium 115 L* Potassium 5.4 H Chloride 79 L Carbon Dioxide 13 L Anion Gap 23 H BUN 69 H Creatinine 17.32 H Estim Creat Clear Calc 6 Estimated GFR 3 L Glucose 120 H POC Capillary Glucose 146 H Calcium 8.0 L Phosphorus Magnesium Total Bilirubin AST ALT Alkaline Phosphatase NT-Pro-B Natriuret Pep Total Protein Albumin 09/15/24 09/15/24 09/15/24 03:45 03:45 03:45 WBC 11.3 H RBC 3.49 L Hgb 10.9 L Hct 32.1 L MCV 92.0 MCH 31.2 MCHC 34.0 RDW 13.1 Plt Count 402 H MPV 8.7 Immature Gran % (Auto) Not Reportable Neut % (Auto) Not Reportable Lymph % (Auto) Not Reportable [place] % (Auto) Not Reportable Eos % (Auto) Not Reportable Baso % (Auto) Not Reportable Lymph # (Auto) Not Reportable [place] # (Auto) Not Reportable Eos # (Auto) Not Reportable Baso # (Auto) Not Reportable Abs Immat Gran (auto) Not Reportable Absolute Neuts (auto) Not Reportable Absolute Nucleated RBC Not Reportable Total Counted 100 Neutrophils % (Manual) 97 H Band Neutrophils % 0 Lymphocytes % (Manual) 2.0 L Monocytes % (Manual) 1 L Nucleated RBC % Not Reportable Abs Neuts (Manual) 10.96 H Abs Lymphs (Manual) 0.22 L Abs Monocytes (Manual) 0.11 Platelet Estimate Increased Anisocytosis 1+ Schistocytes None seen PT INR APTT Puncture Site ABG pH ABG pCO2 ABG pO2 ABG PO2/FiO2 Ratio ABG HCO3 ABG O2 Saturation ABG O2 Content ABG Base Excess A-a Gradient Oxyhemoglobin Total Hemoglobin O2 Delivery Device O2 Liters/Min FiO2 Sodium 113 L* Cancelled Potassium 5.3 H Cancelled Chloride 80 L Carbon Dioxide Anion Gap BUN Creatinine Estim Creat Clear Calc Estimated GFR Glucose POC Capillary Glucose Calcium Phosphorus Magnesium Total Bilirubin AST ALT Alkaline Phosphatase NT-Pro-B Natriuret Pep Total Protein Albumin 09/15/24 09/15/24 09/15/24 03:45 03:45 03:45 WBC RBC Hgb Hct MCV MCH MCHC RDW Plt Count MPV Immature Gran % (Auto) Neut % (Auto) Lymph % (Auto) [place] % (Auto) Eos % (Auto) Baso % (Auto) Lymph # (Auto) [place] # (Auto) Eos # (Auto) Baso # (Auto) Abs Immat Gran (auto) Absolute Neuts (auto) Absolute Nucleated RBC Total Counted Neutrophils % (Manual) Band Neutrophils % Lymphocytes % (Manual) Monocytes % (Manual) Nucleated RBC % Abs Neuts (Manual) Abs Lymphs (Manual) Abs Monocytes (Manual) Platelet Estimate Anisocytosis Schistocytes PT INR APTT Puncture Site ABG pH ABG pCO2 ABG pO2 ABG PO2/FiO2 Ratio ABG HCO3 ABG O2 Saturation ABG O2 Content ABG Base Excess A-a Gradient Oxyhemoglobin Total Hemoglobin O2 Delivery Device O2 Liters/Min FiO2 Sodium Potassium Chloride Cancelled Carbon Dioxide 12 L Cancelled Anion Gap 21 H Cancelled BUN 68 H Creatinine Estim Creat Clear Calc Estimated GFR Glucose POC Capillary Glucose Calcium Phosphorus Magnesium Total Bilirubin AST ALT Alkaline Phosphatase NT-Pro-B Natriuret Pep Total Protein Albumin 09/15/24 09/15/24 09/15/24 03:45 03:45 03:45 WBC RBC Hgb Hct MCV MCH MCHC RDW Plt Count MPV Immature Gran % (Auto) Neut % (Auto) Lymph % (Auto) [place] % (Auto) Eos % (Auto) Baso % (Auto) Lymph # (Auto) [place] # (Auto) Eos # (Auto) Baso # (Auto) Abs Immat Gran (auto) Absolute Neuts (auto) Absolute Nucleated RBC Total Counted Neutrophils % (Manual) Band Neutrophils % Lymphocytes % (Manual) Monocytes % (Manual) Nucleated RBC % Abs Neuts (Manual) Abs Lymphs (Manual) Abs Monocytes (Manual) Platelet Estimate Anisocytosis Schistocytes PT INR APTT Puncture Site ABG pH ABG pCO2 ABG pO2 ABG PO2/FiO2 Ratio ABG HCO3 ABG O2 Saturation ABG O2 Content ABG Base Excess A-a Gradient Oxyhemoglobin Total Hemoglobin O2 Delivery Device O2 Liters/Min FiO2 Sodium Potassium Chloride Carbon Dioxide Anion Gap BUN Cancelled Creatinine 17.59 H Cancelled Estim Creat Clear Calc 6 Cancelled Estimated GFR 3 L Glucose POC Capillary Glucose Calcium Phosphorus Magnesium Total Bilirubin AST ALT Alkaline Phosphatase NT-Pro-B Natriuret Pep Total Protein Albumin 09/15/24 09/15/24 09/15/24 03:45 03:45 03:45 WBC RBC Hgb Hct MCV MCH MCHC RDW Plt Count MPV Immature Gran % (Auto) Neut % (Auto) Lymph % (Auto) [place] % (Auto) Eos % (Auto) Baso % (Auto) Lymph # (Auto) [place] # (Auto) Eos # (Auto) Baso # (Auto) Abs Immat Gran (auto) Absolute Neuts (auto) Absolute Nucleated RBC Total Counted Neutrophils % (Manual) Band Neutrophils % Lymphocytes % (Manual) Monocytes % (Manual) Nucleated RBC % Abs Neuts (Manual) Abs Lymphs (Manual) Abs Monocytes (Manual) Platelet Estimate Anisocytosis Schistocytes PT INR APTT Puncture Site ABG pH ABG pCO2 ABG pO2 ABG PO2/FiO2 Ratio ABG HCO3 ABG O2 Saturation ABG O2 Content ABG Base Excess A-a Gradient Oxyhemoglobin Total Hemoglobin O2 Delivery Device O2 Liters/Min FiO2 Sodium Potassium Chloride Carbon Dioxide Anion Gap BUN Creatinine Estim Creat Clear Calc Estimated GFR Cancelled Glucose 142 H Cancelled POC Capillary Glucose Calcium 8.1 L Cancelled Phosphorus 13.5 H Magnesium 2.0 Total Bilirubin AST ALT Alkaline Phosphatase NT-Pro-B Natriuret Pep Total Protein Albumin
--- NOTE | 2024-09-15 11:04 | P.CONGS_ITS ---
Assessment and Plan Assessment and plan (1) End-stage renal disease on peritoneal dialysis: Code(s): N18.6 - End stage renal disease; Z99.2 - Dependence on renal dialysis Status: Acute Assessment and Plan: Patient presented to the ED with fluid overload, after having issues for about a week with his home peritoneal dialysis catheter. Dialysis nurse attempted peritoneal dialysis this morning, and immediately got alarms from the system. She tried flushing and draining with a syringe without success. Surgery consult to place a hemo catheter to pull some fluid off in the meantime. Spoke with surgeon manager of application development who plans to place temporary hemodialysis catheter this afternoon. Plan Discussed patient's case and plan of care with Dr. Petty. History of Present Illness Consult details Consult date: 09/15/24 Reason for consult: other (Placement of temporary dialysis catheter) Requesting physician: Xavier Marcus MD Narrative: Patient is a 54-year-old male on peritoneal dialysis who we have been asked to see in surgical consultation for placement of temporary dialysis catheter. Patient presented to the ED yesterday with complaints shortness of breath, swelling, wheezing due to fluid overload from issues with his home dialysis. Patient stated that his machine has not been working properly for about a week. Patient spoke with Jamila in nephrology and an x-ray was ordered that showed good placement of the catheter. Patient saw nephrology yesterday and provider was able to flush in [place] catheter using the machine in the office. It was presumed that his home machine was broken. He was then sent to [place] [facility] [facility] because he had become short of breath and swollen. ER workup included labs that demonstrated low sodium as well as volume overload. He was admitted to the floor in the dialysis nurse hooked him up and immediately got alarms. Nurse tried flushing and draining with a syringe, without success. Therefore surgery has been consulted to place a temporary catheter in the meantime. Patient has minimal output of urine. WBC 11.3. Sodium 113, likely due to fluid overload. BUN 68, creatinine 17.59. GFR 3. PMFSH Past Medical History Medical History Peritoneal dialysis catheter in place Polyneuropathy HTN (hypertension) Vitamin D3 deficiency Surgical History Surgical History History of appendectomy Family History Family History Father Hypertension Social History Social History Social History: Lives alone in an apartment. No pets. Smoking packs per day: 0.25 Smoking cigarettes per day: 5.0 Years smoked: 20 Smoking pack-years: 5.00 Smoking status: Former smoker Tobacco type: cigarettes Alcohol intake: unknown Alcohol use details: rarely Substance use: current Substance use type: marijuana Other substance usage details: OCCASIONAL Do You Feel Safe in your Home?: Yes Lack of Transportation: No Lack of Food: Never True Current Housing: I Have Housing Concerned About Future Housing: No Difficulty Paying Gas/Electric Bills: No Difficulty Paying for Meds: No Currently Unemployed: No Education: Bachelor's Degree Difficulty w/ Childcare or Family Care: No Living arrangements: with family Occupation/Education: unemployed Gender identity (if verbalized by the patient): Male Sexual Orientation (if Verbalized by the Patient): Straight or Heterosexual Spiritual care concerns: No Agree to blood products: Yes Meds Home Medications and Allergies Home Medications ?Medication ?Instructions ?Recorded ?Confirmed ?Type gentamicin 0.1 % topical cream 1 applic topical TID PRN DIALYSIS 08/31/22 09/14/24 History CATH. calcium carbonate (Tums) 200 mg PO HS PRN Indigestion 07/20/23 09/14/24 History cinacalcet 30 mg tablet 90 mg PO DAILY 07/20/23 09/14/24 History multivitamin 1 tablet PO DAILY 07/29/23 09/14/24 History ferric citrate 210 mg iron tablet 210 mg PO TIDWM 09/28/23 09/14/24 History (Auryxia) omeprazole 20 mg capsule,delayed 20 mg PO DAILY #90 caps 03/08/24 09/14/24 Rx release escitalopram oxalate 10 mg tablet 10 mg PO DAILY 03/09/24 09/14/24 History albuterol sulfate 90 mcg/actuation 2 inh inhalation QID PRN shortness 03/29/24 09/14/24 History aerosol inhaler of breath or wheezing calcium acetate(phosphat bind) 667 2,668 mg PO TIDWM 02/05/25 07/24/25 History mg capsule melatonin 10 mg capsule 20 mg PO HS 03/29/24 09/14/24 History ondansetron 4 mg disintegrating 8 mg translingual Q8H PRN nausea 03/29/24 09/14/24 History tablet and vomiting torsemide 100 mg tablet See Rx Instructions .Route 05/08/24 09/14/24 Rx .COMPLEX #30 tabs dapagliflozin propanediol 10 mg 10 mg PO DAILY #30 tabs 05/12/24 09/14/24 Rx tablet (Farxiga) sacubitril 49 mg-valsartan 51 mg 1 tablet PO BID #60 tabs 05/12/24 09/14/24 Rx tablet (Entresto) nortriptyline 50 mg capsule 50 mg PO DAILY #90 caps 05/15/24 09/14/24 Rx diphenoxylate-atropine 2.5 1 tablet PO QID PRN diarrhea #60 05/29/24 09/14/24 Rx mg-0.025 mg tablet tabs gabapentin 300 mg capsule See Rx Instructions .Route 07/18/24 09/14/24 Rx .COMPLEX #270 caps carvedilol 25 mg tablet 25 mg PO Q12H #60 tabs 08/15/24 09/14/24 Rx hydrocodone 5 mg-acetaminophen 325 1 tablet PO Q8H PRN Pain Rated 08/15/24 09/14/24 Rx mg tablet 4-10 #90 tabs vegixwqc-sdpukyyqa-tnrefdvxi 3.5 4 drop RIGHT EAR Q8H 7 days #10 mL 09/02/24 09/14/24 Rx mg-10,000 unit/mL-1 % ear drops,susp buspirone 10 mg tablet See Rx Instructions .Route 09/11/24 09/14/24 Rx .COMPLEX #90 tabs ciprofloxacin 0.3 %-dexamethasone 4 drp RIGHT EAR Q12H 7 days #7.5 mL 09/11/24 09/14/24 Rx 0.1 % ear drops,suspension carvedilol 6.25 mg tablet 6.25 mg PO Q12H 09/14/24 09/14/24 History Allergies Allergy/AdvReac Type Severity Reaction Status Date / Time No Known Allergies Allergy Verified 09/14/24 18:37 Vital Signs Vital Signs - 24 hr 09/14/24 15:56 09/14/24 17:32 09/14/24 17:39 Temperature 97.9 F Pulse Rate 78 79 78 Respiratory Rate 18 24 H 17 Blood Pressure 160/108 H Pulse Oximetry 97 100 Oxygen Delivery Room Air Oxygen Flow Rate Fraction of Inspired Oxygen 09/14/24 17:40 09/14/24 17:45 09/14/24 17:46 Temperature Pulse Rate 77 79 79 Respiratory Rate 20 25 H 23 H Blood Pressure 185/113 H Pulse Oximetry 100 98 Oxygen Delivery Oxygen Flow Rate Fraction of Inspired Oxygen 09/14/24 18:00 09/14/24 18:02 09/14/24 18:05 Temperature Pulse Rate 78 78 77 Respiratory Rate 15 18 20 Blood Pressure 197/110 H Pulse Oximetry 100 Oxygen Delivery Oxygen Flow Rate Fraction of Inspired Oxygen 09/14/24 18:13 09/14/24 18:15 09/14/24 18:16 Temperature Pulse Rate 80 78 Respiratory Rate 20 19 16 Blood Pressure 205/149 H Pulse Oximetry 97 93 Oxygen Delivery Oxygen Flow Rate Fraction of Inspired Oxygen 09/14/24 18:26 09/14/24 18:30 09/14/24 18:32 Temperature Pulse Rate Respiratory Rate 17 18 18 Blood Pressure 190/108 H 180/108 H Pulse Oximetry 95 Oxygen Delivery Oxygen Flow Rate Fraction of Inspired Oxygen 09/14/24 18:45 09/14/24 19:13 09/14/24 19:17 Temperature Pulse Rate 82 80 80 Respiratory Rate 17 15 Blood Pressure 153/89 H Pulse Oximetry 92 96 Oxygen Delivery Oxygen Flow Rate Fraction of Inspired Oxygen 09/14/24 20:53 09/14/24 21:39 09/14/24 22:00 Temperature 98.1 F Pulse Rate 92 82 80 Respiratory Rate 23 H 21 H Blood Pressure 162/89 H 173/95 H Pulse Oximetry 94 93 Oxygen Delivery Oxygen Flow Rate Fraction of Inspired Oxygen 09/14/24 22:39 09/14/24 23:50 09/15/24 00:00 Temperature Pulse Rate 86 Respiratory Rate Blood Pressure Pulse Oximetry 93 93 Oxygen Delivery Nasal Cannula Nasal Cannula Oxygen Flow Rate 2 2 Fraction of Inspired Oxygen 09/15/24 00:13 09/15/24 02:00 09/15/24 03:00 Temperature 98.2 F Pulse Rate 86 88 96 Respiratory Rate 23 H 20 Blood Pressure 168/87 H Pulse Oximetry 96 Oxygen Delivery Oxygen Flow Rate Fraction of Inspired Oxygen 09/15/24 03:02 09/15/24 03:14 09/15/24 03:41 Temperature Pulse Rate 93 Respiratory Rate 20 Blood Pressure Pulse Oximetry 96 96 Oxygen Delivery Nasal Cannula Nasal Cannula Oxygen Flow Rate 2 2 Fraction of Inspired Oxygen 09/15/24 03:43 09/15/24 04:00 09/15/24 06:00 Temperature 97.8 F Pulse Rate 90 88 87 Respiratory Rate 23 H Blood Pressure 162/95 H Pulse Oximetry 94 Oxygen Delivery Oxygen Flow Rate Fraction of Inspired Oxygen 09/15/24 07:25 09/15/24 08:00 09/15/24 08:00 Temperature Pulse Rate 91 Respiratory Rate Blood Pressure Pulse Oximetry 90 93 Oxygen Delivery Nasal Cannula Nasal Cannula Oxygen Flow Rate 3 2 Fraction of Inspired Oxygen 32 09/15/24 08:03 09/15/24 10:00 Temperature 98.3 F Pulse Rate 92 84 Respiratory Rate 22 H Blood Pressure 151/89 H Pulse Oximetry 93 Oxygen Delivery Oxygen Flow Rate Fraction of Inspired Oxygen Exam 2 Const: General: comfortable and no acute distress Eyes: General: appearance normal, both eyes and all related structures Neck: Neck: supple Resp: Effort & Inspection: normal respiratory effort Cardio: Rate: regular rate Skin: General skin exam: normal color and no rashes or lesions noted Extrem: General: edema Psych: Mental Status: mental status grossly normal Results Labs 09/15/24 03:45 09/15/24 03:45 Labs: Abnormal lab results 09/14/24 09/14/24 09/15/24 Range/Units 17:52 23:29 02:23 WBC 12.5 H (4.5-10.0) K/mm3 RBC 3.23 L (4.6-6.20) M/mm3 Hgb 10.0 L (14.0-18.0) g/dL Hct 29.8 L (42.0-52.0) % Plt Count 398 H (150-375) k/mm3 Lymph % (Auto) 12.5 L (18.3-44.2) % [place] % (Auto) 9.3 H (2.6-8.5) % Eos % (Auto) 7.0 H (0-4.4) % [place] # (Auto) 1.2 H (0.1-0.6) K/mm3 Eos # (Auto) 0.9 H (0-0.3) K/mm3 Abs Immat Gran (auto) 0.04 H (0.00-0.031) K/mm3 Absolute Neuts (auto) 8.8 H (1.3-6.7) K/mm3 Neutrophils % (Manual) (46-73) % Lymphocytes % (Manual) (18-44) % Monocytes % (Manual) (3-9) % Abs Neuts (Manual) (1.3-6.7) K/mm3 Abs Lymphs (Manual) (1.1-4.5) K/mm3 APTT 42.4 H (22.3-36.8) Seconds ABG pH (7.350-7.450) ABG HCO3 (22.0-26.0) mEq/l ABG O2 Saturation (95.0-100.0) % Sodium 116 L* 115 L* (137-145) mmol/L Potassium 5.4 H (3.4-5.0) mmol/L Chloride 80 L 79 L (98-107) mmol/L Carbon Dioxide 14 L 13 L (22-30) mmol/L Anion Gap 22 H 23 H (4-12) mmol/L BUN 67 H 69 H (9-20) mg/dL Creatinine 16.52 H 17.32 H (0.7-1.3) mg/dL Estimated GFR 3 L 3 L (59 - ) Glucose 120 H (65-110) mg/dL POC Capillary Glucose 146 H (65-105) mg/dl Calcium 7.8 L 8.0 L (8.4-10.2) mg/dL Phosphorus 12.8 H (2.5-4.5) mg/dL NT-Pro-B Natriuret Pep 56274 H (19.9-100) pg/mL Total Protein 6.1 L (6.3-8.2) g/dL 09/15/24 09/15/24 Range/Units 02:27 03:45 WBC 11.3 H (4.5-10.0) K/mm3 RBC 3.49 L (4.6-6.20) M/mm3 Hgb 10.9 L (14.0-18.0) g/dL Hct 32.1 L (42.0-52.0) % Plt Count 402 H (150-375) k/mm3 Lymph % (Auto) (18.3-44.2) % [place] % (Auto) (2.6-8.5) % Eos % (Auto) (0-4.4) % [place] # (Auto) (0.1-0.6) K/mm3 Eos # (Auto) (0-0.3) K/mm3 Abs Immat Gran (auto) (0.00-0.031) K/mm3 Absolute Neuts (auto) (1.3-6.7) K/mm3 Neutrophils % (Manual) 97 H (46-73) % Lymphocytes % (Manual) 2.0 L (18-44) % Monocytes % (Manual) 1 L (3-9) % Abs Neuts (Manual) 10.96 H (1.3-6.7) K/mm3 Abs Lymphs (Manual) 0.22 L (1.1-4.5) K/mm3 APTT (22.3-36.8) Seconds ABG pH 7.206 L* (7.350-7.450) ABG HCO3 16.4 L (22.0-26.0) mEq/l ABG O2 Saturation 93.5 L (95.0-100.0) % Sodium 113 L* (137-145) mmol/L Potassium 5.3 H (3.4-5.0) mmol/L Chloride 80 L (98-107) mmol/L Carbon Dioxide 12 L (22-30) mmol/L Anion Gap 21 H (4-12) mmol/L BUN 68 H (9-20) mg/dL Creatinine 17.59 H (0.7-1.3) mg/dL Estimated GFR 3 L (59 - ) Glucose 142 H (65-110) mg/dL POC Capillary Glucose (65-105) mg/dl Calcium 8.1 L (8.4-10.2) mg/dL Phosphorus 13.5 H (2.5-4.5) mg/dL NT-Pro-B Natriuret Pep (19.9-100) pg/mL Total Protein (6.3-8.2) g/dL Diabetes panel 09/14/24 09/14/24 09/15/24 Range/Units 17:52 23:29 03:45 Sodium 116 L* 115 L* 113 L* (137-145) mmol/L Potassium 4.6 5.4 H (3.4-5.0) mmol/L Chloride 80 L 79 L (98-107) mmol/L Carbon Dioxide 14 L 13 L (22-30) mmol/L BUN 67 H 69 H (9-20) mg/dL Creatinine 16.52 H 17.32 H (0.7-1.3) mg/dL Glucose 91 120 H (65-110) mg/dL Calcium 7.8 L 8.0 L (8.4-10.2) mg/dL AST 19 (17-59) U/L ALT 12 (6-50) U/L Alkaline Phosphatase 102 (38-126) U/L Total Protein 6.1 L (6.3-8.2) g/dL Albumin 3.5 (3.5-5.1) g/dL 09/15/24 09/15/24 09/15/24 Range/Units 03:45 03:45 03:45 Sodium Cancelled (137-145) mmol/L Potassium 5.3 H Cancelled (3.4-5.0) mmol/L Chloride 80 L Cancelled (98-107) mmol/L Carbon Dioxide 12 L (22-30) mmol/L BUN (9-20) mg/dL Creatinine (0.7-1.3) mg/dL Glucose (65-110) mg/dL Calcium (8.4-10.2) mg/dL AST (17-59) U/L ALT (6-50) U/L Alkaline Phosphatase (38-126) U/L Total Protein (6.3-8.2) g/dL Albumin (3.5-5.1) g/dL 09/15/24 09/15/24 09/15/24 Range/Units 03:45 03:45 03:45 Sodium (137-145) mmol/L Potassium (3.4-5.0) mmol/L Chloride (98-107) mmol/L Carbon Dioxide Cancelled (22-30) mmol/L BUN 68 H Cancelled (9-20) mg/dL Creatinine 17.59 H Cancelled (0.7-1.3) mg/dL Glucose 142 H (65-110) mg/dL Calcium (8.4-10.2) mg/dL AST (17-59) U/L ALT (6-50) U/L Alkaline Phosphatase (38-126) U/L Total Protein (6.3-8.2) g/dL Albumin (3.5-5.1) g/dL 09/15/24 09/15/24 Range/Units 03:45 03:45 Sodium (137-145) mmol/L Potassium (3.4-5.0) mmol/L Chloride (98-107) mmol/L Carbon Dioxide (22-30) mmol/L BUN (9-20) mg/dL Creatinine (0.7-1.3) mg/dL Glucose Cancelled (65-110) mg/dL Calcium 8.1 L Cancelled (8.4-10.2) mg/dL AST (17-59) U/L ALT (6-50) U/L Alkaline Phosphatase (38-126) U/L Total Protein (6.3-8.2) g/dL Albumin (3.5-5.1) g/dL Calcium panel 09/14/24 09/14/24 09/14/24 Range/Units 17:52 17:52 23:29 Calcium 7.8 L 8.0 L (8.4-10.2) mg/dL Phosphorus 12.8 H Cancelled (2.5-4.5) mg/dL Albumin 3.5 (3.5-5.1) g/dL 09/15/24 09/15/24 Range/Units 03:45 03:45 Calcium 8.1 L Cancelled (8.4-10.2) mg/dL Phosphorus 13.5 H (2.5-4.5) mg/dL Albumin (3.5-5.1) g/dL Pituitary panel 09/14/24 09/14/24 09/15/24 Range/Units 17:52 23:29 03:45 Sodium 116 L* 115 L* 113 L* (137-145) mmol/L Potassium 4.6 5.4 H (3.4-5.0) mmol/L Chloride 80 L 79 L (98-107) mmol/L Carbon Dioxide 14 L 13 L (22-30) mmol/L BUN 67 H 69 H (9-20) mg/dL Creatinine 16.52 H 17.32 H (0.7-1.3) mg/dL Glucose 91 120 H (65-110) mg/dL Calcium 7.8 L 8.0 L (8.4-10.2) mg/dL 09/15/24 09/15/24 09/15/24 Range/Units 03:45 03:45 03:45 Sodium Cancelled (137-145) mmol/L Potassium 5.3 H Cancelled (3.4-5.0) mmol/L Chloride 80 L Cancelled (98-107) mmol/L Carbon Dioxide 12 L (22-30) mmol/L BUN (9-20) mg/dL Creatinine (0.7-1.3) mg/dL Glucose (65-110) mg/dL Calcium (8.4-10.2) mg/dL 09/15/24 09/15/24 09/15/24 Range/Units 03:45 03:45 03:45 Sodium (137-145) mmol/L Potassium (3.4-5.0) mmol/L Chloride (98-107) mmol/L Carbon Dioxide Cancelled (22-30) mmol/L BUN 68 H Cancelled (9-20) mg/dL Creatinine 17.59 H Cancelled (0.7-1.3) mg/dL Glucose 142 H (65-110) mg/dL Calcium (8.4-10.2) mg/dL 09/15/24 09/15/24 Range/Units 03:45 03:45 Sodium (137-145) mmol/L Potassium (3.4-5.0) mmol/L Chloride (98-107) mmol/L Carbon Dioxide (22-30) mmol/L BUN (9-20) mg/dL Creatinine (0.7-1.3) mg/dL Glucose Cancelled (65-110) mg/dL Calcium 8.1 L Cancelled (8.4-10.2) mg/dL Adrenal panel 09/14/24 09/14/24 09/15/24 Range/Units 17:52 23:29 03:45 Sodium 116 L* 115 L* 113 L* (137-145) mmol/L Potassium 4.6 5.4 H (3.4-5.0) mmol/L Chloride 80 L 79 L (98-107) mmol/L Carbon Dioxide 14 L 13 L (22-30) mmol/L BUN 67 H 69 H (9-20) mg/dL Creatinine 16.52 H 17.32 H (0.7-1.3) mg/dL Glucose 91 120 H (65-110) mg/dL Calcium 7.8 L 8.0 L (8.4-10.2) mg/dL Total Bilirubin 0.4 (0.2-1.3) mg/dL AST 19 (17-59) U/L ALT 12 (6-50) U/L Alkaline Phosphatase 102 (38-126) U/L Total Protein 6.1 L (6.3-8.2) g/dL Albumin 3.5 (3.5-5.1) g/dL 09/15/24 09/15/24 09/15/24 Range/Units 03:45 03:45 03:45 Sodium Cancelled (137-145) mmol/L Potassium 5.3 H Cancelled (3.4-5.0) mmol/L Chloride 80 L Cancelled (98-107) mmol/L Carbon Dioxide 12 L (22-30) mmol/L BUN (9-20) mg/dL Creatinine (0.7-1.3) mg/dL Glucose (65-110) mg/dL Calcium (8.4-10.2) mg/dL Total Bilirubin (0.2-1.3) mg/dL AST (17-59) U/L ALT (6-50) U/L Alkaline Phosphatase (38-126) U/L Total Protein (6.3-8.2) g/dL Albumin (3.5-5.1) g/dL 09/15/24 09/15/24 09/15/24 Range/Units 03:45 03:45 03:45 Sodium (137-145) mmol/L Potassium (3.4-5.0) mmol/L Chloride (98-107) mmol/L Carbon Dioxide Cancelled (22-30) mmol/L BUN 68 H Cancelled (9-20) mg/dL Creatinine 17.59 H Cancelled (0.7-1.3) mg/dL Glucose 142 H (65-110) mg/dL Calcium (8.4-10.2) mg/dL Total Bilirubin (0.2-1.3) mg/dL AST (17-59) U/L ALT (6-50) U/L Alkaline Phosphatase (38-126) U/L Total Protein (6.3-8.2) g/dL Albumin (3.5-5.1) g/dL 09/15/24 09/15/24 Range/Units 03:45 03:45 Sodium (137-145) mmol/L Potassium (3.4-5.0) mmol/L Chloride (98-107) mmol/L Carbon Dioxide (22-30) mmol/L BUN (9-20) mg/dL Creatinine (0.7-1.3) mg/dL Glucose Cancelled (65-110) mg/dL Calcium 8.1 L Cancelled (8.4-10.2) mg/dL Total Bilirubin (0.2-1.3) mg/dL AST (17-59) U/L ALT (6-50) U/L Alkaline Phosphatase (38-126) U/L Total Protein (6.3-8.2) g/dL Albumin (3.5-5.1) g/dL All other labs normal.
[2024-09-15] MEDS: NORTRIPTYLINE HCL 25 MG CAPSULE 50 MG PO (11:47)
[2024-09-15] MEDS: ESCITALOPRAM OXALATE 10 MG TABLET PO (11:49)
[2024-09-15] MEDS: ONDANSETRON INJ 4 MG/2 ML VIAL IV PUSH (11:55)
[2024-09-15] MEDS: PHARMACIST COMMUNICATION ORDER 1 EACH XX (12:30)
--- NOTE | 2024-09-15 13:47 | PM.EVENT ---
Event Note Event Note Event Note: Parmjit came in and worked on the catheter. It looks like it is working now. So will hold off on the dialysis hemo cath.
--- NOTE | 2024-09-15 13:54 | PC.NURSE ---
RN consult note 09/15/24: requested PD catheter evaluation prior to HD cvc insertion. Syringe placed on PD catheter- no pull/flush. NS syringe then placed on PD catheter - NS pushed in after small amount of resistance and then flushed without issues. Dr. Marcus notified that the PD catheter appears to be functional. then ordered [facility] run. Total time: 20 minutes ([id number]).
[2024-09-15] MEDS: PERITONEAL DIALYSIS XX ×2 (14:08→20:30)
[2024-09-15] MEDS: HEPARIN SODIUM XX ×2 (14:08→20:30)
[2024-09-15] MEDS: PROCHLORPERAZINE EDISYLATE 10 MG/2 ML VIAL IV PUSH (15:22)
[2024-09-15] MEDS: EPOETIN ALFA-EPBX 10,000 UNITS/ML VIAL 10000 UNITS SUB-Q (16:34)
[2024-09-15] MEDS: CALCIUM ACETATE 667 MG TABLET 2668 MG PO (16:38)
[2024-09-15] MEDS: GABAPENTIN 300 MG CAPSULE BY MOUTH (16:39)
[2024-09-15] MEDS: EMPAGLIFLOZIN 10 MG TABLET BY MOUTH (16:39)
[2024-09-15 16:51] LABS: Procalcitonin 0.3 ng/mL
[2024-09-15] MEDS: SACUBITRIL/VALSARTAN 49-51 MG TABLET 1 TABLET PO (16:51)
[2024-09-15 17:59] LABS: Alanine Aminotransferase 18 U/L (6-50); Albumin Level 3.5 g/dL (3.5-5.1); Alkaline Phosphatase 103 U/L (38-126); Anion Gap 23 mmol/L (4-12); Aspartate Amino Transferase 30 U/L (17-59); Bilirubin,Total 0.4 mg/dL (0.2-1.3); Blood Urea Nitrogen 77 mg/dL (9-20); Calcium 8.1 mg/dL (8.4-10.2); Carbon Dioxide 15 mmol/L (22-30); Chloride 80 mmol/L (98-107); Estimated CRCL calculation 6 ml/min; Estimated Glomerular Filt Rate 3; Glucose 188 mg/dL (65-110); Potassium 4.2 mmol/L (3.4-5.0); Sodium 118 mmol/L (137-145); Total Protein 6.2 g/dL (6.3-8.2)
[2024-09-15 18:26] LABS: Alveolar/Arterial O2 Gradient 96.6 mmHg; Carboxyhemoglobin 0.9 % THb (0-2.0); Fractional Inspired Oxygen 32 %; HCO3 ABG 17.6 mEq/l (22.0-26.0); Methemoglobin ABG 0.3 %THb (0-1.5); Oxygen Content ABG 15.3 %vol (16.0-22.0); Oxygen Saturation ABG 94.5 % (95.0-100.0); PCO2 ABG 41.6 mmHg (35.0-45.0); PO2 ABG 82.9 mmHg (80.0-100.0); PO2 FiO2 Ratio Arterial Blood 2.59 %; Reduced Hemoglobin 6.1 %THb (0-5.0)
[2024-09-15 18:31] LABS: Liters per Minute 3.0 LPM; Modified Allen's Test Pass; Site Drawn RIGHT RADIAL
[2024-09-15] MEDS: VANCOMYCIN HCL IV CONT (20:51)
[2024-09-15] MEDS: [UNRECOGNIZED DRUG - OTHER] IV CONT (20:51)
[2024-09-15] MEDS: HEPARIN SODIUM IV CONT (20:51)
[2024-09-15] MEDS: MELATONIN 5 MG TABLET 20 MG PO (21:32)
--- NOTE | 2024-09-15 21:40 | PCRCNOTE ---
Patient refuses to wear bipap.
[2024-09-16] VITALS (26 sets, daily range): BP systolic 90–157; BP diastolic 59–91; PULSE 73–92; RESP 12–22; TEMP 36.3–37.3; O2SAT 93–100
[2024-09-16 04:30] LABS: Hematocrit 29.8 % (42.0-52.0); Hemoglobin 10.0 g/dL (14.0-18.0); Immature Granulocyte Percent A 0.8 % (0-0.5); Lymphocytes Absolute Auto 1.20 K/mm3 (0.9-3.2); Mean Corpuscular HGB Conc 33.6 g/dl (32-36); Mean Corpuscular Hemoglobin 31.4 pg (26-34); Mean Corpuscular Volume 93.7 fl (80-100); Nucleated Red Blood Cells Absolute Auto 0.000 K/mm3 (0.0-0.012); Nucleated Red Blood Cells Perc 0.0 % (0.0-0.2); Platelet Count Result 392 k/mm3 (150-375); Red Blood Count 3.18 M/mm3 (4.6-6.20); White Blood Count 15.9 K/mm3 (4.5-10.0)
[2024-09-16 04:43] LABS: Alanine Aminotransferase 12 U/L (6-50); Albumin Level 3.1 g/dL (3.5-5.1); Alkaline Phosphatase 95 U/L (38-126); Anion Gap 21 mmol/L (4-12); Aspartate Amino Transferase 16 U/L (17-59); Bilirubin,Total 0.2 mg/dL (0.2-1.3); Blood Urea Nitrogen 79 mg/dL (9-20); Calcium 7.4 mg/dL (8.4-10.2); Carbon Dioxide 17 mmol/L (22-30); Chloride 82 mmol/L (98-107); Glucose 113 mg/dL (65-110); Magnesium 2.0 mg/dL (1.6-2.3); Potassium 4.3 mmol/L (3.4-5.0); Sodium 120 mmol/L (137-145); Total Protein 5.6 g/dL (6.3-8.2)
[2024-09-16 04:56] LABS: Estimated CRCL calculation 6 ml/min; Estimated Glomerular Filt Rate 3
[2024-09-16 06:06] LABS: Hepatitis B Surface Antigen Negative (Negative)
[2024-09-16] MEDS: PERITONEAL DIALYSIS XX ×2 (08:27)
[2024-09-16] MEDS: HEPARIN SODIUM XX ×2 (08:27)
[2024-09-16] MEDS: GABAPENTIN 300 MG CAPSULE BY MOUTH ×3 (08:46→16:28)
[2024-09-16] MEDS: CALCIUM ACETATE 667 MG TABLET 2668 MG PO ×3 (08:46→16:28)
[2024-09-16] MEDS: ESCITALOPRAM OXALATE 10 MG TABLET PO (08:46)
[2024-09-16] MEDS: SODIUM BICARBONATE TAB 650 MG TABLET 1300 MG PO ×2 (08:46→16:28)
[2024-09-16] MEDS: CINACALCET 30 MG TABLET 90 MG PO (08:47)
[2024-09-16] MEDS: NORTRIPTYLINE HCL 25 MG CAPSULE 50 MG PO (08:47)
[2024-09-16] MEDS: MULTIVITAMINS THERAPEUTIC TAB (*BKC) 1 TABLET PO (08:47)
[2024-09-16] MEDS: EMPAGLIFLOZIN 10 MG TABLET BY MOUTH (08:47)
[2024-09-16] MEDS: FUROSEMIDE INJ 100 MG/10 ML VIAL 80 MG IV PUSH ×2 (08:47→16:28)
[2024-09-16] MEDS: SACUBITRIL/VALSARTAN 49-51 MG TABLET 1 TABLET PO ×2 (08:47→16:28)
--- NOTE | 2024-09-16 11:08 | P.PNIM_ITS ---
Progress Note: A&P Assessment and Plan (1) End-stage renal disease on peritoneal dialysis: Code(s): N18.6 - End stage renal disease; Z99.2 - Dependence on renal dialysis Status: Acute (2) Acute hyponatremia: Code(s): E87.1 - Hypo-osmolality and hyponatremia Status: Acute (3) Hypoxemia: Code(s): R09.02 - Hypoxemia Status: Acute (4) Anasarca: Code(s): R60.1 - Generalized edema Status: Acute Plan 54-year-old male on peritoneal dialysis reports [facility] on 09/14/2024 with complaint of shortness of breath swelling and wheezing due to the inability to perform dialysis at home. He stated his machine is not been working properly for a week. He was only able to run 3 hours of peritoneal dialysis. He went to [facility] and reportedly his dialysis catheter was working. Dr. Marcus was contacted and he was advised to present to the ER. Reports increased swelling in his legs abdomen and arms with shortness of breath and wheezing. Reports he barely makes any urine, it is on and off. ER evaluation revealed sodium 116, BUN 67, serum creatinine 16.52. Chest x-ray demonstrating mild pulmonary edema. He was given Zofran, Lasix, Solu-Medrol, DuoNeb, Coreg, Entresto, magnesium. Dr. Marcus contacted from the ER. Advise 1500 cc fluid restriction. Re-attempted peritoneal catheter dialysis overnight and was unsuccessful. Since then plans to initiate hemodialysis has been mmade however pd catehter has started working and now on PD. gen surg consulted for possible HD cath placement however this is canceled now. Hyponatremia likely due to renal failure improving. Fluid overload End-stage renal disease on peritoneal dialysis hypertension Hyperlipidemia Diastolic dysfunction Cardiomyopathy DVT prophylaxis SCDs Code status full code Subjective Date/time seen: 09/16/24 11:08 Interval history: no overnight events, no new compalints. feels better. pd catheter has been working now and has been on peritoneal dialysis overnight and also getting done throughout this day Review of Systems Review of Systems: All systems reviewed & are unremarkable except as noted in HPI and below (HPI) Exam Narrative: GENERAL: Chronically ill-appearing, NAD HEAD: Normocephalic, atraumatic. EYES: PERRLA and EOMI. ENT: Nares clear, no rhinorrhea or epistaxis. Mucous membranes moist. NECK: Supple. CHEST: Mild expiratory wheezing throughout all lung [place]. Speaking in full sentences, in no respiratory distress HEART: Regular rate and rhythm. No murmur heard. Normal peripheral pulses. ABDOMEN: Abdomen distended, nontender peritoneal catheter in-situ which is hooked to the dialysate EXTREMITIES: Normal range of motion. Pitting edema to bilateral lower extremities SKIN: Warm, dry, no rash. NEURO: No focal deficits. Alert and oriented x3 Objective Data Vital Signs Vital Signs: Vital Signs - 24 hr 09/15/24 11:39 09/15/24 11:48 09/15/24 11:49 Temperature 98.1 F Pulse Rate 86 86 86 Respiratory Rate 22 H Blood Pressure 145/85 H Pulse Oximetry 92 Oxygen Delivery Oxygen Flow Rate 09/15/24 12:00 09/15/24 12:00 09/15/24 13:00 Temperature Pulse Rate 89 Respiratory Rate Blood Pressure Pulse Oximetry 92 Oxygen Delivery Nasal Cannula Oxygen Flow Rate 2 2 09/15/24 14:00 09/15/24 15:30 09/15/24 16:00 Temperature 98.0 F Pulse Rate 91 90 Respiratory Rate 20 Blood Pressure 171/100 H Pulse Oximetry 97 93 Oxygen Delivery Nasal Cannula Oxygen Flow Rate 2 09/15/24 16:00 09/15/24 18:00 09/15/24 19:26 Temperature 97.4 F L Pulse Rate 89 88 89 Respiratory Rate 18 Blood Pressure 148/77 H Pulse Oximetry 95 Oxygen Delivery Oxygen Flow Rate 09/15/24 20:00 09/15/24 20:15 09/15/24 21:10 Temperature Pulse Rate 86 89 Respiratory Rate 18 Blood Pressure Pulse Oximetry 95 Oxygen Delivery Nasal Cannula Oxygen Flow Rate 2 4 09/15/24 21:32 09/15/24 21:33 09/15/24 22:00 Temperature Pulse Rate 88 88 91 Respiratory Rate Blood Pressure Pulse Oximetry Oxygen Delivery Oxygen Flow Rate 09/15/24 23:28 09/15/24 23:40 09/16/24 00:00 Temperature 97.5 F L Pulse Rate 86 86 84 Respiratory Rate 20 20 Blood Pressure 125/97 H Pulse Oximetry 99 99 Oxygen Delivery Nasal Cannula Oxygen Flow Rate 3 09/16/24 02:00 09/16/24 03:55 09/16/24 04:00 Temperature 97.8 F Pulse Rate 82 78 77 Respiratory Rate 16 Blood Pressure 143/84 H Pulse Oximetry 95 Oxygen Delivery Oxygen Flow Rate 09/16/24 04:03 09/16/24 06:00 09/16/24 07:44 Temperature 98.3 F Pulse Rate 78 77 80 Respiratory Rate 16 12 Blood Pressure 157/91 H Pulse Oximetry 95 98 Oxygen Delivery Nasal Cannula Oxygen Flow Rate 3 09/16/24 08:00 09/16/24 08:25 Temperature Pulse Rate 81 Respiratory Rate 16 Blood Pressure Pulse Oximetry 96 Oxygen Delivery Nasal Cannula Oxygen Flow Rate 3 2 Intake/Output Intake/Output: Intake & Output 09/13/24 09/14/24 09/15/24 09/16/24 23:59 23:59 23:59 23:59 Intake Total 50 6321.2 6751.2 Output Total 100 10 Balance 50 6221.2 6741.2 Meds/Results Medications: Active Medications Generic Name Dose Route Start Last Admin Trade Name Freq PRN Reason Stop Dose Admin Hydrocodone Bitart/Acetaminophen 1 tab 09/15/24 10:46 Hydrocodone/Acetaminophen (*Crx) 5-325 Mg Tablet PO Q8H PRN Pain Rated 4-10 Albuterol 2 puff 09/14/24 22:49 Albuterol Sulfate (*Sp) Aerosol 1 Puff INHALATION QID PRN shortness of breath or wheezing Buspirone HCl 10 mg 09/15/24 13:00 09/16/24 08:47 Buspirone Hcl 10 Mg Tablet BY MOUTH 10 mg TID CARIDAD Administration Calcium Acetate 2,668 mg 09/15/24 12:00 09/16/24 08:46 Calcium Acetate 667 Mg Tablet PO 2,668 mg TIDWM CARIDAD Administration Calcium Carbonate 200 mg 09/15/24 10:46 Calcium Carbonate (Tums) 500 Mg (200 Mg Elemental) PO HS PRN Indigestion Carvedilol 6.25 mg 09/15/24 10:50 09/15/24 21:32 Carvedilol 6.25 Mg Tablet PO 6.25 mg Q12H CARIDAD Administration Carvedilol 25 mg 09/15/24 11:35 09/15/24 21:33 Carvedilol 25 Mg Tablet PO 25 mg Q12H CARIDAD Administration Cinacalcet 90 mg 09/16/24 09:00 09/16/24 08:47 Cinacalcet 30 Mg Tablet PO 90 mg DAILY CARIDAD Administration Diphenoxylate HCl/Atropine 1 tablet 09/15/24 10:46 Diphenoxylate/Atropine (*Crx) 2.5 Mg Tablet PO QID PRN diarrhea Empagliflozin 10 mg 09/15/24 12:10 09/16/24 08:47 Empagliflozin 10 Mg Tablet BY MOUTH 10 mg DAILY CARIDAD Administration Epoetin Luke-epbx 10,000 units 09/15/24 16:00 09/15/24 16:34 Epoetin Luke-Epbx 10,000 Units/Ml Vial SUB-Q 10,000 units MOWEFR CARIDAD Administration Escitalopram Oxalate 10 mg 09/15/24 12:00 09/16/24 08:46 Escitalopram Oxalate 10 Mg Tablet PO 10 mg DAILY ACRIDAD Administration Furosemide 80 mg 09/14/24 18:35 09/16/24 08:47 Furosemide Inj 100 Mg/10 Ml Vial IV PUSH 80 mg BID CARIDAD Administration Gabapentin 300 mg 09/15/24 13:00 09/16/24 08:46 Gabapentin 300 Mg Capsule BY MOUTH 300 mg TID CARIDAD Administration Gentamicin Sulfate 1 applic 09/15/24 10:46 Gentamicin Sulfate 0.1% Cr 15 Gm Tube TOPICAL TID PRN DIALYSIS CATH. Heparin Sodium (Porcine) 6,000 6,001.2 mls @ 1,000 mls/hr 09/15/24 14:05 09/16/24 08:27 units/ Peritoneal Dialysis XX 1,000 mls/hr Solution .Q6H1M CARIDAD Administration Heparin Sodium (Porcine) 2,000 2,000.4 mls @ 333.338 mls/hr 09/16/24 07:30 09/16/24 08:27 units/ Peritoneal Dialysis XX 09/16/24 19:30 333.34 mls/hr Solution .Q6H1M CARIDAD Administration Melatonin 20 mg 09/15/24 21:00 09/15/24 21:32 Melatonin 5 Mg Tablet PO 20 mg HS CARIDAD Administration Miscellaneous Information 1 each 09/15/24 00:01 09/16/24 03:21 Order Clarification - Nonformulary Ferric Citrate [Auryxia] 210 Mg Iron Tablet XX 10/15/24 00:00 Not Given CLARIFY CARIDAD Miscellaneous Information 1 each 09/15/24 00:01 Med Rec Order Clarification -Phuc/Poly/Hydrocortisone Ear Drops XX 10/15/24 00:00 CLARIFY CARIDAD Multivitamins Therapeutic 1 tablet 09/16/24 09:00 09/16/24 08:47 Multivitamins Therapeutic Tab (*Bkc) PO 1 tablet DAILY CARIDAD Administration Neomycin/Polymyxin/Hydrocortisone 4 drop 09/15/24 14:00 Neomycin/Polymyxin/Hydrocort Ot Susp 10 Ml Btl (*Bkc) RIGHT EAR Q8HR [facility] Non-Formulary Medication 210 mg 09/15/24 12:00 Ferric Citrate [Auryxia] PO 10/15/24 11:59 TIDWM [facility] Nortriptyline HCl 50 mg 09/15/24 12:00 09/16/24 08:47 Nortriptyline Hcl 25 Mg Capsule PO 50 mg DAILY [facility] Administration Ondansetron HCl 4 mg 09/14/24 18:46 09/15/24 11:55 Ondansetron Inj 4 Mg/2 Ml Vial IV PUSH 4 mg Q4H PRN Administration Nausea Ondansetron HCl 8 mg 09/15/24 10:46 Ondansetron Hcl Odt 4 Mg Tablet BY MOUTH Q8H PRN nausea and vomiting Pantoprazole Sodium 40 mg 09/16/24 12:15 Pantoprazole 40 Mg Tablet PO QAM [facility] Prochlorperazine Edisylate 10 mg 09/15/24 15:19 09/15/24 15:22 Prochlorperazine Edisylate 10 Mg/2 Ml Vial IV PUSH 10 mg Q6H PRN Administration Nausea And Vomiting Sacubitril/Valsartan 1 tablet 09/15/24 17:00 09/16/24 08:47 Sacubitril/Valsartan 49-51 Mg Tablet PO 1 tablet BID CARIDAD Administration Sodium Bicarbonate 1,300 mg 09/15/24 09:00 09/16/24 08:46 Sodium Bicarbonate Tab 650 Mg Tablet PO 1,300 mg BIDPC CARIDAD Administration Radiology Results: ITS Impressions Chest X-Ray 09/14/24 18:21 IMPRESSION: 1. Increased interstitial pattern in the bilateral mid and lower lung zones and favor mild pulmonary edema over pneumonia. Head CT 09/15/24 05:11 IMPRESSION: 1. No acute intracranial abnormality. 2: Moderate sinus disease with right mastoid effusion. 3: Chronic right thalamic infarction. Labs Labs: Laboratory Results - last 24 hr 09/15/24 09/15/24 09/15/24 03:45 16:28 16:49 WBC RBC Hgb Hct MCV MCH MCHC RDW Plt Count MPV Immature Gran % (Auto) Neut % (Auto) Lymph % (Auto) [place] % (Auto) Eos % (Auto) Baso % (Auto) Lymph # (Auto) [place] # (Auto) Eos # (Auto) Baso # (Auto) Abs Immat Gran (auto) Absolute Neuts (auto) Absolute Nucleated RBC Nucleated RBC % Puncture Site ABG pH ABG pCO2 ABG pO2 ABG PO2/FiO2 Ratio ABG HCO3 ABG O2 Saturation ABG O2 Content ABG Base Excess A-a Gradient Oxyhemoglobin Carboxyhemoglobin Methemoglobin Reduced Hemoglobin Total Hemoglobin O2 Delivery Device O2 Liters/Min FiO2 Sodium 118 L* Potassium 4.2 Chloride 80 L Carbon Dioxide 15 L Anion Gap 23 H BUN 77 H Creatinine 17.57 H Estim Creat Clear Calc 6 Estimated GFR 3 L Glucose 188 H POC Capillary Glucose 244 H Lactic Acid Calcium 8.1 L Magnesium Total Bilirubin 0.4 AST 30 ALT 18 Alkaline Phosphatase 103 Total Protein 6.2 L Albumin 3.5 Procalcitonin 0.3 Hep Bs Antigen 09/15/24 09/15/24 09/16/24 18:19 19:08 03:40 WBC 15.9 H RBC 3.18 L Hgb 10.0 L Hct 29.8 L MCV 93.7 MCH 31.4 MCHC 33.6 RDW 13.1 Plt Count 392 H MPV 8.8 Immature Gran % (Auto) 0.8 H Neut % (Auto) 82.3 H Lymph % (Auto) 7.5 L [place] % (Auto) 9.2 H Eos % (Auto) 0.1 Baso % (Auto) 0.1 L Lymph # (Auto) 1.20 [place] # (Auto) 1.5 H Eos # (Auto) 0.0 Baso # (Auto) 0.0 Abs Immat Gran (auto) 0.12 H Absolute Neuts (auto) 13.1 H Absolute Nucleated RBC 0.000 Nucleated RBC % 0.0 Puncture Site Right radial ABG pH 7.245 L* ABG pCO2 41.6 ABG pO2 82.9 ABG PO2/FiO2 Ratio 2.59 ABG HCO3 17.6 L ABG O2 Saturation 94.5 L ABG O2 Content 15.3 L ABG Base Excess -9.2 A-a Gradient 96.6 Oxyhemoglobin 92.7 Carboxyhemoglobin 0.9 Methemoglobin 0.3 Reduced Hemoglobin 6.1 H Total Hemoglobin 11.7 L O2 Delivery Device Nasal cannula O2 Liters/Min 3.0 FiO2 32 Sodium 120 L Potassium 4.3 Chloride 82 L Carbon Dioxide 17 L Anion Gap 21 H BUN 79 H Creatinine 17.53 H Estim Creat Clear Calc 6 Estimated GFR 3 L Glucose 113 H POC Capillary Glucose Lactic Acid 1.3 Calcium 7.4 L Magnesium 2.0 Total Bilirubin 0.2 AST 16 L ALT 12 Alkaline Phosphatase 95 Total Protein 5.6 L Albumin 3.1 L Procalcitonin Hep Bs Antigen Negative
--- NOTE | 2024-09-16 11:17 | P.PNNP_ITS ---
Progress Note: A&P Assessment and Plan (1) ESRD on dialysis: Code(s): N18.6 - End stage renal disease; Z99.2 - Dependence on renal dialysis Status: Acute Assessment and Plan: The patient is on peritoneal dialysis nightly. He had not had dialysis in almost a week. At 1st his PD catheter did not seem to be working but yesterday morning Parmjit got the catheter working. Yesterday patient was put on peritoneal dialysis. He had about 3 exchanges and then became confuse and disconnected the machine from the catheter. Parmjit the nurse called me. We replaced the transfer set because it was damaged by the pa tiesherry in his confused state. Because of the contamination we gave him a g of vancomycin long dwell overnight. Multiple calls yesterday because of his mental status changes. He had a CMP done which showed improvement on most fronts. He had a blood gas done which showed no retention of pCO2 and good oxygenation. The benefits and has worn off the patient feels better. Will fluid restrict and sodium restrict Long discussion with the patient as well as with Dr. Petty, floor nurse, and PD nurse. (2) Pulmonary edema: Code(s): J81.1 - Chronic pulmonary edema Status: Acute Assessment and Plan: The patient has pulmonary edema from volume overload. Some fluid was removed yesterday. Will remove more fluid today. (3) Anemia of chronic disease: Code(s): D63.8 - Anemia in other chronic diseases classified elsewhere Status: Acute Assessment and Plan: Hemoglobin is 10.0, doing well. He is getting Epogen Epogen. (4) Hyponatremia: Code(s): E87.1 - Hypo-osmolality and hyponatremia Status: Acute Assessment and Plan: The patient has a low sodium. This has gradually dropped overnight because of water drinking. The sodium was as low as 113 yesterday. Today it is to 120. This will continue to improve with dialysis. (5) Neuropathy: Code(s): G62.9 - Polyneuropathy, unspecified Status: Acute Assessment and Plan: Etiology unclear. He is managed as an outpatient by neurology (6) Metabolic acidosis: Code(s): E87.20 - Acidosis, unspecified Status: Acute Assessment and Plan: Probably from lack of dialysis and also uremic toxins. CO2 level has improved Subjective Date/time seen: 09/16/24 11:17 Interval history: Patient is awake. He was confused and at times sleepy last night after he received Compazine plus ondansetron Now he looks better but not quite back to himself. Less short of breath today per Review of Systems Cardiovascular: Cardiovascular: Reports no additional cardiovascular complaints Respiratory: Respiratory: Reports no additional respiratory complaints Gastrointestinal: Gastrointestinal: Reports no additional gastrointestinal complaints Genitourinary: Genitourinary: Reports no additional male genitourinary complaints Exam Narrative: WDWN in NAD skin no rash head ncat lungs decreased breath sounds at bases and increase in expiratory phase cor reg no rub abd BS+ nontender and soft ext 2 to 3 + bilateral edema. Objective Data Vital Signs Vital Signs: Vital Signs - 24 hr 09/15/24 11:39 09/15/24 11:48 09/15/24 11:49 Temperature 98.1 F Pulse Rate 86 86 86 Respiratory Rate 22 H Blood Pressure 145/85 H Pulse Oximetry 92 Oxygen Delivery Oxygen Flow Rate 09/15/24 12:00 09/15/24 12:00 09/15/24 13:00 Temperature Pulse Rate 89 Respiratory Rate Blood Pressure Pulse Oximetry 92 Oxygen Delivery Nasal Cannula Oxygen Flow Rate 2 2 09/15/24 14:00 09/15/24 15:30 09/15/24 16:00 Temperature 98.0 F Pulse Rate 91 90 Respiratory Rate 20 Blood Pressure 171/100 H Pulse Oximetry 97 93 Oxygen Delivery Nasal Cannula Oxygen Flow Rate 2 09/15/24 16:00 09/15/24 18:00 09/15/24 19:26 Temperature 97.4 F L Pulse Rate 89 88 89 Respiratory Rate 18 Blood Pressure 148/77 H Pulse Oximetry 95 Oxygen Delivery Oxygen Flow Rate 09/15/24 20:00 09/15/24 20:15 09/15/24 21:10 Temperature Pulse Rate 86 89 Respiratory Rate 18 Blood Pressure Pulse Oximetry 95 Oxygen Delivery Nasal Cannula Oxygen Flow Rate 2 4 09/15/24 21:32 09/15/24 21:33 09/15/24 22:00 Temperature Pulse Rate 88 88 91 Respiratory Rate Blood Pressure Pulse Oximetry Oxygen Delivery Oxygen Flow Rate 09/15/24 23:28 09/15/24 23:40 09/16/24 00:00 Temperature 97.5 F L Pulse Rate 86 86 84 Respiratory Rate 20 20 Blood Pressure 125/97 H Pulse Oximetry 99 99 Oxygen Delivery Nasal Cannula Oxygen Flow Rate 3 09/16/24 02:00 09/16/24 03:55 09/16/24 04:00 Temperature 97.8 F Pulse Rate 82 78 77 Respiratory Rate 16 Blood Pressure 143/84 H Pulse Oximetry 95 Oxygen Delivery Oxygen Flow Rate 09/16/24 04:03 09/16/24 06:00 09/16/24 07:44 Temperature 98.3 F Pulse Rate 78 77 80 Respiratory Rate 16 12 Blood Pressure 157/91 H Pulse Oximetry 95 98 Oxygen Delivery Nasal Cannula Oxygen Flow Rate 3 09/16/24 08:00 09/16/24 08:25 Temperature Pulse Rate 81 Respiratory Rate 16 Blood Pressure Pulse Oximetry 96 Oxygen Delivery Nasal Cannula Oxygen Flow Rate 3 2 Intake/Output Intake/Output: Intake & Output 09/13/24 09/14/24 09/15/24 09/16/24 23:59 23:59 23:59 23:59 Intake Total 50 6321.2 6751.2 Output Total 100 10 Balance 50 6221.2 6741.2 Meds/Results Medications: Active Medications Generic Name Dose Route Start Last Admin Trade Name Freq PRN Reason Stop Dose Admin Hydrocodone Bitart/Acetaminophen 1 tab 09/15/24 10:46 Hydrocodone/Acetaminophen (*Crx) 5-325 Mg Tablet PO Q8H PRN Pain Rated 4-10 Albuterol 2 puff 09/14/24 22:49 Albuterol Sulfate (*Sp) Aerosol 1 Puff INHALATION QID PRN shortness of breath or wheezing Buspirone HCl 10 mg 09/15/24 13:00 09/16/24 08:47 Buspirone Hcl 10 Mg Tablet BY MOUTH 10 mg TID CARIDAD Administration Calcium Acetate 2,668 mg 09/15/24 12:00 09/16/24 08:46 Calcium Acetate 667 Mg Tablet PO 2,668 mg TIDWM CARIDAD Administration Calcium Carbonate 200 mg 09/15/24 10:46 Calcium Carbonate (Tums) 500 Mg (200 Mg Elemental) PO HS PRN Indigestion Carvedilol 6.25 mg 09/15/24 10:50 09/15/24 21:32 Carvedilol 6.25 Mg Tablet PO 6.25 mg Q12H CARIDAD Administration Carvedilol 25 mg 09/15/24 11:35 09/15/24 21:33 Carvedilol 25 Mg Tablet PO 25 mg Q12H CARIDAD Administration Cinacalcet 90 mg 09/16/24 09:00 09/16/24 08:47 Cinacalcet 30 Mg Tablet PO 90 mg DAILY CARIDAD Administration Diphenoxylate HCl/Atropine 1 tablet 09/15/24 10:46 Diphenoxylate/Atropine (*Crx) 2.5 Mg Tablet PO QID PRN diarrhea Empagliflozin 10 mg 09/15/24 12:10 09/16/24 08:47 Empagliflozin 10 Mg Tablet BY MOUTH 10 mg DAILY CARIDAD Administration Epoetin Luke-epbx 10,000 units 09/15/24 16:00 09/15/24 16:34 Epoetin Luke-Epbx 10,000 Units/Ml Vial SUB-Q 10,000 units MOWEFR CARIDAD Administration Escitalopram Oxalate 10 mg 09/15/24 12:00 09/16/24 08:46 Escitalopram Oxalate 10 Mg Tablet PO 10 mg DAILY CARIDAD Administration Furosemide 80 mg 09/14/24 18:35 09/16/24 08:47 Furosemide Inj 100 Mg/10 Ml Vial IV PUSH 80 mg BID CARIDAD Administration Gabapentin 300 mg 09/15/24 13:00 09/16/24 08:46 Gabapentin 300 Mg Capsule BY MOUTH 300 mg TID CARIDAD Administration Gentamicin Sulfate 1 applic 09/15/24 10:46 Gentamicin Sulfate 0.1% Cr 15 Gm Tube TOPICAL TID PRN DIALYSIS CATH. Heparin Sodium (Porcine) 6,000 6,001.2 mls @ 1,000 mls/hr 09/15/24 14:05 09/16/24 08:27 units/ Peritoneal Dialysis XX 1,000 mls/hr Solution .Q6H1M CARIDAD Administration Heparin Sodium (Porcine) 2,000 2,000.4 mls @ 333.338 mls/hr 09/16/24 07:30 09/16/24 08:27 units/ Peritoneal Dialysis XX 09/16/24 19:30 333.34 mls/hr Solution .Q6H1M CARIDAD Administration Melatonin 20 mg 09/15/24 21:00 09/15/24 21:32 Melatonin 5 Mg Tablet PO 20 mg HS CARIDAD Administration Miscellaneous Information 1 each 09/15/24 00:01 09/16/24 03:21 Order Clarification - Nonformulary Ferric Citrate [Auryxia] 210 Mg Iron Tablet XX 10/15/24 00:00 Not Given CLARIFY [facility] Miscellaneous Information 1 each 09/15/24 00:01 Med Rec Order Clarification -Phuc/Poly/Hydrocortisone Ear Drops XX 10/15/24 00:00 CLARIFY [facility] Multivitamins Therapeutic 1 tablet 09/16/24 09:00 09/16/24 08:47 Multivitamins Therapeutic Tab (*Bkc) PO 1 tablet DAILY CARIDAD Administration Neomycin/Polymyxin/Hydrocortisone 4 drop 09/15/24 14:00 Neomycin/Polymyxin/Hydrocort Ot Susp 10 Ml Btl (*Bkc) RIGHT EAR Q8HR [facility] Non-Formulary Medication 210 mg 09/15/24 12:00 Ferric Citrate [Auryxia] PO 10/15/24 11:59 TIDWM [facility] Nortriptyline HCl 50 mg 09/15/24 12:00 09/16/24 08:47 Nortriptyline Hcl 25 Mg Capsule PO 50 mg DAILY [facility] Administration Ondansetron HCl 4 mg 09/14/24 18:46 09/15/24 11:55 Ondansetron Inj 4 Mg/2 Ml Vial IV PUSH 4 mg Q4H PRN Administration Nausea Ondansetron HCl 8 mg 09/15/24 10:46 Ondansetron Hcl Odt 4 Mg Tablet BY MOUTH Q8H PRN nausea and vomiting Pantoprazole Sodium 40 mg 09/16/24 12:15 Pantoprazole 40 Mg Tablet PO QAM [facility] Prochlorperazine Edisylate 10 mg 09/15/24 15:19 09/15/24 15:22 Prochlorperazine Edisylate 10 Mg/2 Ml Vial IV PUSH 10 mg Q6H PRN Administration Nausea And Vomiting Sacubitril/Valsartan 1 tablet 09/15/24 17:00 09/16/24 08:47 Sacubitril/Valsartan 49-51 Mg Tablet PO 1 tablet BID [facility] Administration Sodium Bicarbonate 1,300 mg 09/15/24 09:00 09/16/24 08:46 Sodium Bicarbonate Tab 650 Mg Tablet PO 1,300 mg BIDPC CARIDAD Administration Radiology Results: ITS Impressions Chest X-Ray 09/14/24 18:21 IMPRESSION: 1. Increased interstitial pattern in the bilateral mid and lower lung zones and favor mild pulmonary edema over pneumonia. Head CT 09/15/24 05:11 IMPRESSION: 1. No acute intracranial abnormality. 2: Moderate sinus disease with right mastoid effusion. 3: Chronic right thalamic infarction. Labs Labs: Laboratory Results - last 24 hr 09/15/24 09/15/24 09/15/24 03:45 16:28 16:49 WBC RBC Hgb Hct MCV MCH MCHC RDW Plt Count MPV Immature Gran % (Auto) Neut % (Auto) Lymph % (Auto) [place] % (Auto) Eos % (Auto) Baso % (Auto) Lymph # (Auto) [place] # (Auto) Eos # (Auto) Baso # (Auto) Abs Immat Gran (auto) Absolute Neuts (auto) Absolute Nucleated RBC Nucleated RBC % Puncture Site ABG pH ABG pCO2 ABG pO2 ABG PO2/FiO2 Ratio ABG HCO3 ABG O2 Saturation ABG O2 Content ABG Base Excess A-a Gradient Oxyhemoglobin Carboxyhemoglobin Methemoglobin Reduced Hemoglobin Total Hemoglobin O2 Delivery Device O2 Liters/Min FiO2 Sodium 118 L* Potassium 4.2 Chloride 80 L Carbon Dioxide 15 L Anion Gap 23 H BUN 77 H Creatinine 17.57 H Estim Creat Clear Calc 6 Estimated GFR 3 L Glucose 188 H POC Capillary Glucose 244 H Lactic Acid Calcium 8.1 L Magnesium Total Bilirubin 0.4 AST 30 ALT 18 Alkaline Phosphatase 103 Total Protein 6.2 L Albumin 3.5 Procalcitonin 0.3 Hep Bs Antigen 09/15/24 09/15/24 09/16/24 18:19 19:08 03:40 WBC 15.9 H RBC 3.18 L Hgb 10.0 L Hct 29.8 L MCV 93.7 MCH 31.4 MCHC 33.6 RDW 13.1 Plt Count 392 H MPV 8.8 Immature Gran % (Auto) 0.8 H Neut % (Auto) 82.3 H Lymph % (Auto) 7.5 L [place] % (Auto) 9.2 H Eos % (Auto) 0.1 Baso % (Auto) 0.1 L Lymph # (Auto) 1.20 [place] # (Auto) 1.5 H Eos # (Auto) 0.0 Baso # (Auto) 0.0 Abs Immat Gran (auto) 0.12 H Absolute Neuts (auto) 13.1 H Absolute Nucleated RBC 0.000 Nucleated RBC % 0.0 Puncture Site Right radial ABG pH 7.245 L* ABG pCO2 41.6 ABG pO2 82.9 ABG PO2/FiO2 Ratio 2.59 ABG HCO3 17.6 L ABG O2 Saturation 94.5 L ABG O2 Content 15.3 L ABG Base Excess -9.2 A-a Gradient 96.6 Oxyhemoglobin 92.7 Carboxyhemoglobin 0.9 Methemoglobin 0.3 Reduced Hemoglobin 6.1 H Total Hemoglobin 11.7 L O2 Delivery Device Nasal cannula O2 Liters/Min 3.0 FiO2 32 Sodium 120 L Potassium 4.3 Chloride 82 L Carbon Dioxide 17 L Anion Gap 21 H BUN 79 H Creatinine 17.53 H Estim Creat Clear Calc 6 Estimated GFR 3 L Glucose 113 H POC Capillary Glucose Lactic Acid 1.3 Calcium 7.4 L Magnesium 2.0 Total Bilirubin 0.2 AST 16 L ALT 12 Alkaline Phosphatase 95 Total Protein 5.6 L Albumin 3.1 L Procalcitonin Hep Bs Antigen Negative
[2024-09-16] MEDS: PANTOPRAZOLE 40 MG TABLET PO (11:23)
[2024-09-16] MEDS: ALBUTEROL SULFATE (*SP) AEROSOL 1 PUFF 2 PUFF INHALATION ×2 (11:35→16:47)
[2024-09-16] MEDS: PHARMACIST COMMUNICATION ORDER 1 EACH XX (19:17)
[2024-09-16] MEDS: MELATONIN 5 MG TABLET 20 MG PO (23:07)
[2024-09-17] VITALS (27 sets, daily range): BP systolic 95–134; BP diastolic 58–88; PULSE 76–102; RESP 12–24; TEMP 36.2–37.7; O2SAT 92–99
[2024-09-17 04:35] LABS: Hematocrit 33.2 % (42.0-52.0); Hemoglobin 11.1 g/dL (14.0-18.0); Immature Granulocyte Percent A 0.6 % (0-0.5); Lymphocytes Absolute Auto 1.23 K/mm3 (0.9-3.2); Mean Corpuscular HGB Conc 33.4 g/dl (32-36); Mean Corpuscular Hemoglobin 31.6 pg (26-34); Mean Corpuscular Volume 94.6 fl (80-100); Nucleated Red Blood Cells Absolute Auto 0.000 K/mm3 (0.0-0.012); Nucleated Red Blood Cells Perc 0.0 % (0.0-0.2); Platelet Count Result 404 k/mm3 (150-375); Red Blood Count 3.51 M/mm3 (4.6-6.20); White Blood Count 17.4 K/mm3 (4.5-10.0)
[2024-09-17 05:04] LABS: Alanine Aminotransferase 13 U/L (6-50); Albumin Level 3.3 g/dL (3.5-5.1); Alkaline Phosphatase 107 U/L (38-126); Anion Gap 14 mmol/L (4-12); Aspartate Amino Transferase 19 U/L (17-59); Bilirubin,Total 0.4 mg/dL (0.2-1.3); Blood Urea Nitrogen 66 mg/dL (9-20); Calcium 7.5 mg/dL (8.4-10.2); Carbon Dioxide 23 mmol/L (22-30); Chloride 83 mmol/L (98-107); Glucose 192 mg/dL (65-110); Magnesium 1.8 mg/dL (1.6-2.3); Potassium 3.6 mmol/L (3.4-5.0); Sodium 120 mmol/L (137-145); Total Protein 5.8 g/dL (6.3-8.2)
[2024-09-17 06:02] LABS: Estimated CRCL calculation 7 ml/min; Estimated Glomerular Filt Rate 4
[2024-09-17] MEDS: CINACALCET 30 MG TABLET 90 MG PO (09:00)
[2024-09-17] MEDS: SODIUM BICARBONATE TAB 650 MG TABLET 1300 MG PO (09:01)
[2024-09-17] MEDS: CALCIUM ACETATE 667 MG TABLET 2668 MG PO ×2 (09:01→18:18)
[2024-09-17] MEDS: EMPAGLIFLOZIN 10 MG TABLET BY MOUTH (09:02)
[2024-09-17] MEDS: PANTOPRAZOLE 40 MG TABLET PO (09:02)
[2024-09-17] MEDS: GABAPENTIN 300 MG CAPSULE BY MOUTH (09:02)
[2024-09-17] MEDS: FUROSEMIDE INJ 100 MG/10 ML VIAL 80 MG IV PUSH ×2 (09:03→18:18)
[2024-09-17] MEDS: SACUBITRIL/VALSARTAN 49-51 MG TABLET 1 TABLET PO ×2 (09:04→18:18)
[2024-09-17] MEDS: MULTIVITAMINS THERAPEUTIC TAB (*BKC) 1 TABLET PO (09:04)
[2024-09-17] MEDS: ESCITALOPRAM OXALATE 10 MG TABLET PO (09:05)
[2024-09-17] MEDS: NORTRIPTYLINE HCL 25 MG CAPSULE 50 MG PO (09:05)
--- NOTE | 2024-09-17 09:07 | P.PNNP_ITS ---
Progress Note: A&P Assessment and Plan (1) ESRD on dialysis: Code(s): N18.6 - End stage renal disease; Z99.2 - Dependence on renal dialysis Status: Acute Assessment and Plan: The patient is on peritoneal dialysis nightly. He had not had dialysis in almost a week. he received dialysis yesterday during the day and another run overnight and will get another 1 today and tonight as well. uremic symptoms seem better. Fluid status still overloaded but he it is improved. Continue to remove fluid aggressively It is unclear why red bags are taking more fluid off. Consider a CT scan to look for leak tomorrow. (2) Pulmonary edema: Code(s): J81.1 - Chronic pulmonary edema Status: Acute Assessment and Plan: The patient has pulmonary edema from volume overload. Some fluid was removed yesterday. Will remove more fluid today. (3) Anemia of chronic disease: Code(s): D63.8 - Anemia in other chronic diseases classified elsewhere Status: Acute Assessment and Plan: Hemoglobin is 11.1, doing well. hold Epogen. With fluid removal the hemoglobin might be concentrating a little bit. (4) Hyponatremia: Code(s): E87.1 - Hypo-osmolality and hyponatremia Status: Acute Assessment and Plan: The patient has a low sodium. This has gradually dropped overnight because of water drinking. The sodium was as low as 113 On the day of admission. It sam to 120 and is still 120 now. The patient is more awake now and so will initiate the fluid restriction This should continue to improve with dialysis and fluid restriction. (5) Neuropathy: Code(s): G62.9 - Polyneuropathy, unspecified Status: Acute Assessment and Plan: Etiology unclear. He is managed as an outpatient by neurology (6) Metabolic acidosis: Code(s): E87.20 - Acidosis, unspecified Status: Acute Assessment and Plan: Resolved. Will stop sodium bicarb Subjective Date/time seen: 09/17/24 09:07 Interval history: patient is awake. He feels better. Less short of breath no more nausea. He is on PD. All bags were 4.25%. He got 4 exchanges. He only got about 2300cc off. This is very unusual For him to have such a low UF. Will do another day cycle and then a night cycle tonight and reassess tomorrow. Seen at 8:00 a.m. Review of Systems Cardiovascular: Cardiovascular: Reports no additional cardiovascular complaints Respiratory: Respiratory: Reports no additional respiratory complaints Gastrointestinal: Gastrointestinal: Reports no additional gastrointestinal complaints Genitourinary: Genitourinary: Reports no additional male genitourinary complaints Exam Narrative: WDWN in NAD skin no rash head ncat lungs Mild decreased breath sounds throughout and mild increased expiratory phase cor reg no rub abd BS+ nontender and soft ext 1 to 2 + bilateraledema. Objective Data Vital Signs Vital Signs: Vital Signs - 24 hr 09/16/24 10:00 09/16/24 11:23 09/16/24 11:23 Temperature Pulse Rate 80 80 80 Respiratory Rate Blood Pressure Pulse Oximetry Oxygen Delivery Oxygen Flow Rate 09/16/24 11:32 09/16/24 11:35 09/16/24 11:41 Temperature 97.5 F L Pulse Rate 78 80 80 Respiratory Rate 16 22 H 22 H Blood Pressure 116/81 Pulse Oximetry 94 95 Oxygen Delivery Nasal Cannula Oxygen Flow Rate 3 09/16/24 11:56 09/16/24 12:00 09/16/24 14:00 Temperature Pulse Rate 81 73 82 Respiratory Rate 16 Blood Pressure Pulse Oximetry 96 Oxygen Delivery Nasal Cannula Oxygen Flow Rate 3 09/16/24 16:00 09/16/24 16:00 09/16/24 16:00 Temperature 97.4 F L Pulse Rate 77 81 84 Respiratory Rate 16 16 Blood Pressure 90/59 L Pulse Oximetry 100 96 Oxygen Delivery Nasal Cannula Oxygen Flow Rate 3 09/16/24 16:50 09/16/24 18:00 09/16/24 18:52 Temperature Pulse Rate 74 81 Respiratory Rate 18 Blood Pressure Pulse Oximetry Oxygen Delivery Oxygen Flow Rate 2 09/16/24 19:17 09/16/24 19:50 09/16/24 20:00 Temperature 97.6 F Pulse Rate 85 92 Respiratory Rate 20 Blood Pressure 96/76 L Pulse Oximetry 100 Oxygen Delivery Oxygen Flow Rate 2 09/16/24 21:15 09/16/24 22:00 09/16/24 23:08 Temperature Pulse Rate 85 82 88 Respiratory Rate 20 Blood Pressure Pulse Oximetry 100 Oxygen Delivery Nasal Cannula Oxygen Flow Rate 5 09/16/24 23:08 09/16/24 23:52 09/16/24 23:55 Temperature 99.2 F Pulse Rate 88 90 90 Respiratory Rate 20 20 Blood Pressure 97/63 L Pulse Oximetry 93 93 Oxygen Delivery Nasal Cannula Oxygen Flow Rate 4 09/17/24 00:00 09/17/24 02:00 09/17/24 03:47 Temperature 97.9 F Pulse Rate 86 86 81 Respiratory Rate 16 Blood Pressure 113/67 Pulse Oximetry 96 Oxygen Delivery Oxygen Flow Rate 09/17/24 04:00 09/17/24 04:25 09/17/24 05:00 Temperature Pulse Rate 84 81 87 Respiratory Rate 16 16 Blood Pressure Pulse Oximetry 96 92 Oxygen Delivery Nasal Cannula Nasal Cannula Oxygen Flow Rate 4 3 09/17/24 06:00 09/17/24 06:15 09/17/24 07:54 Temperature 98.1 F Pulse Rate 81 77 Respiratory Rate 12 Blood Pressure 105/58 L Pulse Oximetry 93 97 Oxygen Delivery Nasal Cannula Oxygen Flow Rate 3 Intake/Output Intake/Output: Intake & Output 09/14/24 09/15/24 09/16/24 09/17/24 23:59 23:59 23:59 23:59 Intake Total 50 6321.2 7731.2 20 Output Total 100 8045 5 Balance 50 6221.2 -313.8 15 Meds/Results Medications: Active Medications Generic Name Dose Route Start Last Admin Trade Name Freq PRN Reason Stop Dose Admin Hydrocodone Bitart/Acetaminophen 1 tab 09/15/24 10:46 Hydrocodone/Acetaminophen (*Crx) 5-325 Mg Tablet PO Q8H PRN Pain Rated 4-10 Albuterol 2 puff 09/14/24 22:49 09/16/24 16:47 Albuterol Sulfate (*Sp) Aerosol 1 Puff INHALATION 2 puff QID PRN Administration shortness of breath or wheezing Buspirone HCl 10 mg 09/15/24 13:00 09/17/24 09:05 Buspirone Hcl 10 Mg Tablet BY MOUTH 10 mg TID CARIDAD Administration Calcium Acetate 2,668 mg 09/15/24 12:00 09/17/24 09:01 Calcium Acetate 667 Mg Tablet PO 2,668 mg TIDWM CARIDAD Administration Calcium Carbonate 200 mg 09/15/24 10:46 Calcium Carbonate (Tums) 500 Mg (200 Mg Elemental) PO HS PRN Indigestion Carvedilol 6.25 mg 09/15/24 10:50 09/16/24 23:08 Carvedilol 6.25 Mg Tablet PO 6.25 mg Q12H CARIDAD Administration Carvedilol 25 mg 09/15/24 11:35 09/16/24 23:08 Carvedilol 25 Mg Tablet PO 25 mg Q12H CARIDAD Administration Cinacalcet 90 mg 09/16/24 09:00 09/17/24 09:00 Cinacalcet 30 Mg Tablet PO 90 mg DAILY CARIDAD Administration Diphenoxylate HCl/Atropine 1 tablet 09/15/24 10:46 Diphenoxylate/Atropine (*Crx) 2.5 Mg Tablet PO QID PRN diarrhea Empagliflozin 10 mg 09/15/24 12:10 09/17/24 09:02 Empagliflozin 10 Mg Tablet BY MOUTH 10 mg DAILY CARIDAD Administration Epoetin Luke-epbx 10,000 units 09/15/24 16:00 09/15/24 16:34 Epoetin Luke-Epbx 10,000 Units/Ml Vial SUB-Q 10,000 units MOWEFR CARIDAD Administration Escitalopram Oxalate 10 mg 09/15/24 12:00 09/17/24 09:05 Escitalopram Oxalate 10 Mg Tablet PO 10 mg DAILY CARIDAD Administration Furosemide 80 mg 09/14/24 18:35 09/17/24 09:03 Furosemide Inj 100 Mg/10 Ml Vial IV PUSH 80 mg BID CARIDAD Administration Gabapentin 300 mg 09/15/24 13:00 09/17/24 09:02 Gabapentin 300 Mg Capsule BY MOUTH 300 mg TID CARIDAD Administration Gentamicin Sulfate 1 applic 09/15/24 10:46 Gentamicin Sulfate 0.1% Cr 15 Gm Tube TOPICAL TID PRN DIALYSIS CATH. Melatonin 20 mg 09/15/24 21:00 09/16/24 23:07 Melatonin 5 Mg Tablet PO 20 mg HS CARIDAD Administration Miscellaneous Information 1 each 09/15/24 00:01 09/17/24 03:23 Order Clarification - Nonformulary Ferric Citrate [Auryxia] 210 Mg Iron Tablet XX 10/15/24 00:00 Not Given [facility] Miscellaneous Information 1 each 09/15/24 00:01 Med Rec Order Clarification -Phuc/Poly/Hydrocortisone Ear Drops XX 10/15/24 00:00 [facility] Multivitamins Therapeutic 1 tablet 09/16/24 09:00 09/17/24 09:04 Multivitamins Therapeutic Tab (*Bkc) PO 1 tablet DAILY CARIDAD Administration Neomycin/Polymyxin/Hydrocortisone 4 drop 09/15/24 14:00 Neomycin/Polymyxin/Hydrocort Ot Susp 10 Ml Btl (*Bkc) RIGHT EAR Q8HR [facility] Non-Formulary Medication 210 mg 09/15/24 12:00 Ferric Citrate [Auryxia] PO 10/15/24 11:59 TIDWM [facility] Nortriptyline HCl 50 mg 09/15/24 12:00 09/17/24 09:05 Nortriptyline Hcl 25 Mg Capsule PO 50 mg DAILY CARIDAD Administration Ondansetron HCl 4 mg 09/14/24 18:46 09/15/24 11:55 Ondansetron Inj 4 Mg/2 Ml Vial IV PUSH 4 mg Q4H PRN Administration Nausea Ondansetron HCl 8 mg 09/15/24 10:46 Ondansetron Hcl Odt 4 Mg Tablet BY MOUTH Q8H PRN nausea and vomiting Pantoprazole Sodium 40 mg 09/16/24 12:15 09/17/24 09:02 Pantoprazole 40 Mg Tablet PO 40 mg QAM CARIDAD Administration Prochlorperazine Edisylate 10 mg 09/15/24 15:19 09/15/24 15:22 Prochlorperazine Edisylate 10 Mg/2 Ml Vial IV PUSH 10 mg Q6H PRN Administration Nausea And Vomiting Sacubitril/Valsartan 1 tablet 09/15/24 17:00 09/17/24 09:04 Sacubitril/Valsartan 49-51 Mg Tablet PO 1 tablet BID CARIDAD Administration Sodium Bicarbonate 1,300 mg 09/15/24 09:00 09/17/24 09:01 Sodium Bicarbonate Tab 650 Mg Tablet PO 1,300 mg BIDPC CARIDAD Administration Radiology Results: ITS Impressions Chest X-Ray 09/14/24 18:21 IMPRESSION: 1. Increased interstitial pattern in the bilateral mid and lower lung zones and favor mild pulmonary edema over pneumonia. Head CT 09/15/24 05:11 IMPRESSION: 1. No acute intracranial abnormality. 2: Moderate sinus disease with right mastoid effusion. 3: Chronic right thalamic infarction. Labs Labs: Laboratory Results - last 24 hr 09/17/24 03:57 WBC 17.4 H RBC 3.51 L Hgb 11.1 L Hct 33.2 L MCV 94.6 MCH 31.6 MCHC 33.4 RDW 13.5 Plt Count 404 H MPV 8.9 Immature Gran % (Auto) 0.6 H Neut % (Auto) 80.9 H Lymph % (Auto) 7.1 L [place] % (Auto) 10.7 H Eos % (Auto) 0.6 Baso % (Auto) 0.1 L Lymph # (Auto) 1.23 [place] # (Auto) 1.9 H Eos # (Auto) 0.1 Baso # (Auto) 0.0 Abs Immat Gran (auto) 0.11 H Absolute Neuts (auto) 14.0 H Absolute Nucleated RBC 0.000 Nucleated RBC % 0.0 Sodium 120 L Potassium 3.6 Chloride 83 L Carbon Dioxide 23 Anion Gap 14 H BUN 66 H D Creatinine 14.18 H Estim Creat Clear Calc 7 Estimated GFR 4 L Glucose 192 H Calcium 7.5 L Phosphorus 9.0 H Magnesium 1.8 Total Bilirubin 0.4 AST 19 ALT 13 Alkaline Phosphatase 107 Total Protein 5.8 L Albumin 3.3 L
--- NOTE | 2024-09-17 09:53 | P.PNIM_ITS ---
Progress Note: A&P Assessment and Plan (1) End-stage renal disease on peritoneal dialysis: Code(s): N18.6 - End stage renal disease; Z99.2 - Dependence on renal dialysis Status: Acute (2) Acute hyponatremia: Code(s): E87.1 - Hypo-osmolality and hyponatremia Status: Acute (3) Hypoxemia: Code(s): R09.02 - Hypoxemia Status: Acute (4) Anasarca: Code(s): R60.1 - Generalized edema Status: Acute Plan 54-year-old male on peritoneal dialysis reports [place] on 09/14/2024 with complaint of shortness of breath swelling and wheezing due to the inability to perform dialysis at home. He stated his machine is not been working properly for a week. He was only able to run 3 hours of peritoneal dialysis. He went to [facility] and reportedly his dialysis catheter was working. Dr. Marcus was contacted and he was advised to present to the ER. Reports increased swelling in his legs abdomen and arms with shortness of breath and wheezing. Reports he barely makes any urine, it is on and off. ER evaluation revealed sodium 116, BUN 67, serum creatinine 16.52. Chest x-ray demonstrating mild pulmonary edema. He was given Zofran, Lasix, Solu-Medrol, DuoNeb, Coreg, Entresto, magnesium. Dr. Marcus contacted from the ER. Advise 1500 cc fluid restriction. Re-attempted peritoneal catheter dialysis overnight and was unsuccessful. Since then plans to initiate hemodialysis has been mmade however pd catehter has started working and now on PD. gen surg consulted for possible HD cath placement however this is canceled now. Hyponatremia likely due to renal failure improving. Fluid overload End-stage renal disease on peritoneal dialysis hypertension Hyperlipidemia Diastolic dysfunction Cardiomyopathy DVT prophylaxis SCDs Code status full code Subjective Date/time seen: 09/17/24 09:53 Interval history: No overnight events. Feels overall better. Mild jerking movement and upper extremities. Review of Systems Review of Systems: All systems reviewed & are unremarkable except as noted in HPI and below (HPI) Exam Narrative: GENERAL: Chronically ill-appearing, NAD HEAD: Normocephalic, atraumatic. EYES: PERRLA and EOMI. ENT: Nares clear, no rhinorrhea or epistaxis. Mucous membranes moist. NECK: Supple. CHEST: Mild expiratory wheezing throughout all lung [place]. Speaking in full sentences, in no respiratory distress HEART: Regular rate and rhythm. No murmur heard. Normal peripheral pulses. ABDOMEN: Abdomen distended, nontender peritoneal catheter in-situ which is h ooked to the dialysate EXTREMITIES: Normal range of motion. Pitting edema to bilateral lower extremities SKIN: Warm, dry, no rash. NEURO: No focal deficits. Alert and oriented x3 Objective Data Vital Signs Vital Signs: Vital Signs - 24 hr 09/16/24 10:00 09/16/24 11:23 09/16/24 11:23 Temperature Pulse Rate 80 80 80 Respiratory Rate Blood Pressure Pulse Oximetry Oxygen Delivery Oxygen Flow Rate 09/16/24 11:32 09/16/24 11:35 09/16/24 11:41 Temperature 97.5 F L Pulse Rate 78 80 80 Respiratory Rate 16 22 H 22 H Blood Pressure 116/81 Pulse Oximetry 94 95 Oxygen Delivery Nasal Cannula Oxygen Flow Rate 3 09/16/24 11:56 09/16/24 12:00 09/16/24 14:00 Temperature Pulse Rate 81 73 82 Respiratory Rate 16 Blood Pressure Pulse Oximetry 96 Oxygen Delivery Nasal Cannula Oxygen Flow Rate 3 09/16/24 16:00 09/16/24 16:00 09/16/24 16:00 Temperature 97.4 F L Pulse Rate 77 81 84 Respiratory Rate 16 16 Blood Pressure 90/59 L Pulse Oximetry 100 96 Oxygen Delivery Nasal Cannula Oxygen Flow Rate 3 09/16/24 16:50 09/16/24 18:00 09/16/24 18:52 Temperature Pulse Rate 74 81 Respiratory Rate 18 Blood Pressure Pulse Oximetry Oxygen Delivery Oxygen Flow Rate 2 09/16/24 19:17 09/16/24 19:50 09/16/24 20:00 Temperature 97.6 F Pulse Rate 85 92 Respiratory Rate 20 Blood Pressure 96/76 L Pulse Oximetry 100 Oxygen Delivery Oxygen Flow Rate 2 09/16/24 21:15 09/16/24 22:00 09/16/24 23:08 Temperature Pulse Rate 85 82 88 Respiratory Rate 20 Blood Pressure Pulse Oximetry 100 Oxygen Delivery Nasal Cannula Oxygen Flow Rate 5 09/16/24 23:08 09/16/24 23:52 09/16/24 23:55 Temperature 99.2 F Pulse Rate 88 90 90 Respiratory Rate 20 20 Blood Pressure 97/63 L Pulse Oximetry 93 93 Oxygen Delivery Nasal Cannula Oxygen Flow Rate 4 09/17/24 00:00 09/17/24 02:00 09/17/24 03:47 Temperature 97.9 F Pulse Rate 86 86 81 Respiratory Rate 16 Blood Pressure 113/67 Pulse Oximetry 96 Oxygen Delivery Oxygen Flow Rate 09/17/24 04:00 09/17/24 04:25 09/17/24 05:00 Temperature Pulse Rate 84 81 87 Respiratory Rate 16 16 Blood Pressure Pulse Oximetry 96 92 Oxygen Delivery Nasal Cannula Nasal Cannula Oxygen Flow Rate 4 3 09/17/24 06:00 09/17/24 06:15 09/17/24 07:54 Temperature 98.1 F Pulse Rate 81 77 Respiratory Rate 12 Blood Pressure 105/58 L Pulse Oximetry 93 97 Oxygen Delivery Nasal Cannula Oxygen Flow Rate 3 Intake/Output Intake/Output: Intake & Output 09/14/24 09/15/24 09/16/24 09/17/24 23:59 23:59 23:59 23:59 Intake Total 50 6321.2 7731.2 20 Output Total 100 8045 5 Balance 50 6221.2 -313.8 15 Meds/Results Medications: Active Medications Generic Name Dose Route Start Last Admin Trade Name Freq PRN Reason Stop Dose Admin Hydrocodone Bitart/Acetaminophen 1 tab 09/15/24 10:46 Hydrocodone/Acetaminophen (*Crx) 5-325 Mg Tablet PO Q8H PRN Pain Rated 4-10 Albuterol 2 puff 09/14/24 22:49 09/16/24 16:47 Albuterol Sulfate (*Sp) Aerosol 1 Puff INHALATION 2 puff QID PRN Administration shortness of breath or wheezing Buspirone HCl 10 mg 09/15/24 13:00 09/17/24 09:05 Buspirone Hcl 10 Mg Tablet BY MOUTH 10 mg TID CARIDAD Administration Calcium Acetate 2,668 mg 09/15/24 12:00 09/17/24 09:01 Calcium Acetate 667 Mg Tablet PO 2,668 mg TIDWM CARIDAD Administration Calcium Carbonate 200 mg 09/15/24 10:46 Calcium Carbonate (Tums) 500 Mg (200 Mg Elemental) PO HS PRN Indigestion Carvedilol 6.25 mg 09/15/24 10:50 09/16/24 23:08 Carvedilol 6.25 Mg Tablet PO 6.25 mg Q12H CARIDAD Administration Carvedilol 25 mg 09/15/24 11:35 09/16/24 23:08 Carvedilol 25 Mg Tablet PO 25 mg Q12H CARIDAD Administration Cinacalcet 90 mg 09/16/24 09:00 09/17/24 09:00 Cinacalcet 30 Mg Tablet PO 90 mg DAILY CRAIDAD Administration Diphenoxylate HCl/Atropine 1 tablet 09/15/24 10:46 Diphenoxylate/Atropine (*Crx) 2.5 Mg Tablet PO QID PRN diarrhea Empagliflozin 10 mg 09/15/24 12:10 09/17/24 09:02 Empagliflozin 10 Mg Tablet BY MOUTH 10 mg DAILY CARIDAD Administration Escitalopram Oxalate 10 mg 09/15/24 12:00 09/17/24 09:05 Escitalopram Oxalate 10 Mg Tablet PO 10 mg DAILY CARIDAD Administration Furosemide 80 mg 09/14/24 18:35 09/17/24 09:03 Furosemide Inj 100 Mg/10 Ml Vial IV PUSH 80 mg BID CARIDAD Administration Gabapentin 300 mg 09/15/24 13:00 09/17/24 09:02 Gabapentin 300 Mg Capsule BY MOUTH 300 mg TID CARIDAD Administration Gentamicin Sulfate 1 applic 09/15/24 10:46 Gentamicin Sulfate 0.1% Cr 15 Gm Tube TOPICAL TID PRN DIALYSIS CATH. Melatonin 20 mg 09/15/24 21:00 09/16/24 23:07 Melatonin 5 Mg Tablet PO 20 mg HS CARIDAD Administration Miscellaneous Information 1 each 09/15/24 00:01 09/17/24 03:23 Order Clarification - Nonformulary Ferric Citrate [Auryxia] 210 Mg Iron Tablet XX 10/15/24 00:00 Not Given [facility] Miscellaneous Information 1 each 09/15/24 00:01 Med Rec Order Clarification -Phuc/Poly/Hydrocortisone Ear Drops XX 10/15/24 00:00 [facility] Multivitamins Therapeutic 1 tablet 09/16/24 09:00 09/17/24 09:04 Multivitamins Therapeutic Tab (*Bkc) PO 1 tablet DAILY CARIDAD Administration Neomycin/Polymyxin/Hydrocortisone 4 drop 09/15/24 14:00 Neomycin/Polymyxin/Hydrocort Ot Susp 10 Ml Btl (*Bkc) RIGHT EAR Q8HR CARIDAD Non-Formulary Medication 210 mg 09/15/24 12:00 Ferric Citrate [Auryxia] PO 10/15/24 11:59 TIDWM CARIDAD Nortriptyline HCl 50 mg 09/15/24 12:00 09/17/24 09:05 Nortriptyline Hcl 25 Mg Capsule PO 50 mg DAILY CARIDAD Administration Ondansetron HCl 4 mg 09/14/24 18:46 09/15/24 11:55 Ondansetron Inj 4 Mg/2 Ml Vial IV PUSH 4 mg Q4H PRN Administration Nausea Ondansetron HCl 8 mg 09/15/24 10:46 Ondansetron Hcl Odt 4 Mg Tablet BY MOUTH Q8H PRN nausea and vomiting Pantoprazole Sodium 40 mg 09/16/24 12:15 09/17/24 09:02 Pantoprazole 40 Mg Tablet PO 40 mg QAM CARIDAD Administration Prochlorperazine Edisylate 10 mg 09/15/24 15:19 09/15/24 15:22 Prochlorperazine Edisylate 10 Mg/2 Ml Vial IV PUSH 10 mg Q6H PRN Administration Nausea And Vomiting Sacubitril/Valsartan 1 tablet 09/15/24 17:00 09/17/24 09:04 Sacubitril/Valsartan 49-51 Mg Tablet PO 1 tablet BID CARIDAD Administration Radiology Results: ITS Impressions Chest X-Ray 09/14/24 18:21 IMPRESSION: 1. Increased interstitial pattern in the bilateral mid and lower lung zones and favor mild pulmonary edema over pneumonia. Head CT 09/15/24 05:11 IMPRESSION: 1. No acute intracranial abnormality. 2: Moderate sinus disease with right mastoid effusion. 3: Chronic right thalamic infarction. Labs Labs: Laboratory Results - last 24 hr 09/17/24 03:57 WBC 17.4 H RBC 3.51 L Hgb 11.1 L Hct 33.2 L MCV 94.6 MCH 31.6 MCHC 33.4 RDW 13.5 Plt Count 404 H MPV 8.9 Immature Gran % (Auto) 0.6 H Neut % (Auto) 80.9 H Lymph % (Auto) 7.1 L [place] % (Auto) 10.7 H Eos % (Auto) 0.6 Baso % (Auto) 0.1 L Lymph # (Auto) 1.23 [place] # (Auto) 1.9 H Eos # (Auto) 0.1 Baso # (Auto) 0.0 Abs Immat Gran (auto) 0.11 H Absolute Neuts (auto) 14.0 H Absolute Nucleated RBC 0.000 Nucleated RBC % 0.0 Sodium 120 L Potassium 3.6 Chloride 83 L Carbon Dioxide 23 Anion Gap 14 H BUN 66 H D Creatinine 14.18 H Estim Creat Clear Calc 7 Estimated GFR 4 L Glucose 192 H Calcium 7.5 L Phosphorus 9.0 H Magnesium 1.8 Total Bilirubin 0.4 AST 19 ALT 13 Alkaline Phosphatase 107 Total Protein 5.8 L Albumin 3.3 L
[2024-09-17] MEDS: HYDROcodone/acetaminophen (*CRX) 5-325 MG TABLET 1 TAB PO (09:58)
[2024-09-17 15:48] LABS: Alveolar/Arterial O2 Gradient 61.2 mmHg; Fractional Inspired Oxygen 28 %; HCO3 ABG 25.0 mEq/l (22.0-26.0); Modified Allen's Test Pass; Oxygen Content ABG 16.2 %vol (16.0-22.0); Oxygen Saturation ABG 92.0 % (95.0-100.0); PCO2 ABG 56.3 mmHg (35.0-45.0); PO2 ABG 72.0 mmHg (80.0-100.0); PO2 FiO2 Ratio Arterial Blood 2.57 %; Site Drawn RIGHT RADIAL
[2024-09-17 15:49] LABS: Liters per Minute 2.0 LPM
[2024-09-17 18:20] LABS: Alveolar/Arterial O2 Gradient 68.0 mmHg; Fractional Inspired Oxygen 30 %; HCO3 ABG 25.6 mEq/l (22.0-26.0); Oxygen Content ABG 16.5 %vol (16.0-22.0); Oxygen Saturation ABG 93.7 % (95.0-100.0); PCO2 ABG 57.2 mmHg (35.0-45.0); PO2 ABG 78.7 mmHg (80.0-100.0); PO2 FiO2 Ratio Arterial Blood 2.62 %
[2024-09-17 18:26] LABS: Modified Allen's Test Pass; Site Drawn RIGHT RADIAL
[2024-09-17] MEDS: IPRATROPIUM 0.5 MG/ALBUTEROL SULFATE 2.5 MG AMPUL.NEB 3 ML INHALATION (20:00)
--- NOTE | 2024-09-17 20:02 | PC.NURSE ---
This patient, Real Rolon, was transferred to [facility] on 09/17/24. Personal belongings sent with patient. Report given to Dilia . Appropriate documentation sent with patient.
--- NOTE | 2024-09-17 21:25 | PC.NURSE ---
This patient, Real Rolon, was received from [facility] on 09/17/24 at 1950. Patient/family oriented to unit policies and routines
[2024-09-17] MEDS: HEPARIN SODIUM XX ×2 (22:11→22:13)
[2024-09-17] MEDS: PERITONEAL DIALYSIS XX ×2 (22:11→22:13)
[2024-09-18] VITALS (30 sets, daily range): BP systolic 93–111; BP diastolic 59–76; PULSE 80–109; RESP 18–28; TEMP 36.7–37.2; O2SAT 93–100
[2024-09-18] MEDS: IPRATROPIUM 0.5 MG/ALBUTEROL SULFATE 2.5 MG AMPUL.NEB 3 ML INHALATION ×4 (01:32→19:57)
[2024-09-18 04:27] LABS: Hematocrit 36.4 % (42.0-52.0); Hemoglobin 11.8 g/dL (14.0-18.0); Mean Corpuscular HGB Conc 32.4 g/dl (32-36); Mean Corpuscular Hemoglobin 31.2 pg (26-34); Mean Corpuscular Volume 96.3 fl (80-100); Platelet Count Result 432 k/mm3 (150-375); Red Blood Count 3.78 M/mm3 (4.6-6.20); White Blood Count 16.2 K/mm3 (4.5-10.0)
[2024-09-18 04:31] LABS: Alveolar/Arterial O2 Gradient 94.1 mmHg; Carboxyhemoglobin 1.3 % THb (0-2.0); Fractional Inspired Oxygen 30 %; HCO3 ABG 25.8 mEq/l (22.0-26.0); Methemoglobin ABG 0.3 %THb (0-1.5); Oxygen Content ABG 16.1 %vol (16.0-22.0); Oxygen Saturation ABG 91.5 % (95.0-100.0); PCO2 ABG 47.3 mmHg (35.0-45.0); PO2 ABG 64.2 mmHg (80.0-100.0); PO2 FiO2 Ratio Arterial Blood 2.14 %; Reduced Hemoglobin 7.5 %THb (0-5.0)
[2024-09-18 04:33] LABS: Modified Allen's Test Pass; Site Drawn RIGHT RADIAL
[2024-09-18 04:34] LABS: Non-Invasive Expiratory Pressure 7 CMH2O; Non-Invasive Inspiratory Pressure 18 CMH2O; Non-Invasive Vent Rate 12 /MIN
[2024-09-18 04:55] LABS: Albumin Level 3.5 g/dL (3.5-5.1); Anion Gap 14 mmol/L (4-12); Blood Urea Nitrogen 50 mg/dL (9-20); Calcium 8.4 mg/dL (8.4-10.2); Carbon Dioxide 24 mmol/L (22-30); Chloride 88 mmol/L (98-107); Estimated CRCL calculation 8 ml/min; Estimated Glomerular Filt Rate 4; Glucose 195 mg/dL (65-110); Potassium 3.0 mmol/L (3.4-5.0); Sodium 126 mmol/L (137-145)
[2024-09-18] MEDS: POTASSIUM CHLORIDE 20 MEQ ER TABLET 40 MEQ PO (06:38)
--- NOTE | 2024-09-18 09:30 | P.PNNP_ITS ---
Progress Note: A&P Assessment and Plan (1) End stage renal disease: Code(s): N18.6 - End stage renal disease Status: Chronic Assessment and Plan: * continue nightly CCPD * adjust PD Rx as needed to maximize fluid removal * follow electrolytes, volume status, and clearance * check CT of abdomen given diminished ultrafiltration despite ongoing CCPD therapy (2) Acute hypoxic respiratory failure: Code(s): J96.01 - Acute respiratory failure with hypoxia Status: Acute Assessment and Plan: * presumably due to #3 * element of reactive airway disease/COPD(?) * still requiring supplemental oxygen and BiPAP support * continue efforts to optimize fluid status with peritoneal dialysis * wean oxygen as tolerated (3) Fluid overload: Qualifiers: Hypervolemia type: unspecified Qualified Code(s): E87.70 - Fluid overload, unspecified Code(s): E87.70 - Fluid overload, unspecified Status: Acute Assessment and Plan: * slow improvement noted * as noted on admission * pulmonary edema on admission CXR * noted LE and UE swelling/edema * due to inability to get PD treatments at home (machine/cycler issue) * continue aggressive ultrafiltration as tolerated * since not making much urine, unclear if diuretics helpful * follow volume status (4) Hyponatremia: Code(s): E87.1 - Hypo-osmolality and hyponatremia Status: Acute Assessment and Plan: * slow/steady improvement * noted on admission * slow improvement with fluid restriction and ultrafiltration * suspect low sodium due to hypervolemia/fluid overload and water intake * follow trend of sodium (5) Anemia: Code(s): D64.9 - Anemia, unspecified Status: Acute Assessment and Plan: * hemoglobin in range/at goal * Epogen on hold * follow trend of H/H (6) Peripheral neuropathy: Code(s): G62.9 - Polyneuropathy, unspecified Status: Chronic Assessment and Plan: * known diagnosis * follows with Neurology as an outpatient Will continue to follow. L Subjective Date/time seen: 09/18/24 09:30 Interval history: Follow-up for end stage renal disease on peritoneal dialysis. Chart reviewed -- assuming care from Dr. Marcus; tolerating peritoneal dialysis treatment overnight without any issue or problems (CCPD supervised and seen at 9:20AM); breathing/respiratory status better but not back to baseline and still requiring supplemental oxygen (used BiPAP at night); Exam 2 Narrative: General: WD/WN male in NAD Heart: normal S1 and S2; no rub Lungs: coarse and decreased at bases Abdomen: soft, nontender, nondistended, positive bowel sounds Extremities: no cyanosis or clubbing; 1 - 2+ edema Skin: warm and dry Objective Data Vital Signs Vital Signs: Vital Signs Temp Pulse Resp BP Pulse Ox O2 Del Method O2 Flow Rate 09/18/24 08:50 106 H 20 09/18/24 08:40 104 H 20 09/18/24 08:40 95 Nasal Cannula 2 09/18/24 08:00 98.5 F 101 H 28 H 111/76 94 09/18/24 06:00 109 H 09/18/24 04:34 80 20 94 BiPAP 09/18/24 04:07 98.0 F 101 H 18 93/59 L 100 09/18/24 04:00 100 09/18/24 04:00 94 BiPAP 09/18/24 01:33 85 19 96 BiPAP 09/18/24 01:32 85 18 09/18/24 00:12 95 09/18/24 00:00 96 BiPAP 09/18/24 00:00 98 09/17/24 23:53 99.2 F 98 20 128/68 97 09/17/24 21:14 99.8 F H 90 21 H 95/60 L 95 09/17/24 20:34 88 16 97 BiPAP 09/17/24 20:17 97.1 F L 100 24 H 134/88 09/17/24 20:10 102 H 18 09/17/24 20:03 18 BiPAP 09/17/24 20:00 97 BiPAP 09/17/24 20:00 100 18 09/17/24 19:00 20 BiPAP 09/17/24 18:22 24 H 134/88 09/17/24 16:30 BiPAP 09/17/24 16:20 18 BiPAP 09/17/24 16:00 97.1 F L 77 20 99 09/17/24 12:30 76 24 H 93 09/17/24 12:30 93 Nasal Cannula 2 09/17/24 12:20 81 09/17/24 12:00 128/82 Intake/Output Intake/Output: Intake & Output 09/15/24 09/16/24 09/17/24 09/18/24 23:59 23:59 23:59 23:59 Intake Total 6321.2 7731.2 20 240 Output Total 100 9045 5702 0 Balance 6221.2 -313.8 -5682 240 Meds/Results Medications: Active Medications Generic Name Dose Route Start Last Admin Trade Name Freq PRN Reason Stop Dose Admin Hydrocodone Bitart/Acetaminophen 1 tab 09/15/24 10:46 09/17/24 09:58 Hydrocodone/Acetaminophen (*Crx) 5-325 Mg Tablet PO 1 tab Q8H PRN Administration Pain Rated 4-10 Albuterol 2 puff 09/14/24 22:49 09/16/24 16:47 Albuterol Sulfate (*Sp) Aerosol 1 Puff INHALATION 2 puff QID PRN Administration shortness of breath or wheezing Albuterol/Ipratropium 3 ml 09/17/24 20:00 09/18/24 08:40 Ipratropium 0.5 Mg/Albuterol Sulfate 2.5 Mg Ampul.Neb 3 Ml INHALATION 3 ml Q6HRT CARIDAD Administration Buspirone HCl 10 mg 09/15/24 13:00 09/18/24 10:16 Buspirone Hcl 10 Mg Tablet BY MOUTH 10 mg TID CARIDAD Administration Calcium Acetate 2,668 mg 09/15/24 12:00 09/18/24 10:16 Calcium Acetate 667 Mg Tablet PO 2,668 mg TIDWM CARIDAD Administration Calcium Carbonate 200 mg 09/15/24 10:46 Calcium Carbonate (Tums) 500 Mg (200 Mg Elemental) PO HS PRN Indigestion Carvedilol 6.25 mg 09/15/24 10:50 09/18/24 10:15 Carvedilol 6.25 Mg Tablet PO 6.25 mg Q12H CARIDAD Administration Carvedilol 25 mg 09/15/24 11:35 09/18/24 00:13 Carvedilol 25 Mg Tablet PO Not Given Q12H CARIDAD Cinacalcet 90 mg 09/16/24 09:00 09/18/24 10:16 Cinacalcet 30 Mg Tablet PO 90 mg DAILY CARIDAD Administration Diphenoxylate HCl/Atropine 1 tablet 09/15/24 10:46 Diphenoxylate/Atropine (*Crx) 2.5 Mg Tablet PO QID PRN diarrhea Empagliflozin 10 mg 09/15/24 12:10 09/18/24 10:17 Empagliflozin 10 Mg Tablet BY MOUTH 10 mg DAILY CARIDAD Administration Escitalopram Oxalate 10 mg 09/15/24 12:00 09/18/24 10:17 Escitalopram Oxalate 10 Mg Tablet PO 10 mg DAILY CARIDAD Administration Gabapentin 300 mg 09/15/24 13:00 09/17/24 09:02 Gabapentin 300 Mg Capsule BY MOUTH 300 mg TID CARIDAD Administration Gentamicin Sulfate 1 applic 09/15/24 10:46 Gentamicin Sulfate 0.1% Cr 15 Gm Tube TOPICAL TID PRN DIALYSIS CATH. Melatonin 20 mg 09/15/24 21:00 09/16/24 23:07 Melatonin 5 Mg Tablet PO 20 mg HS CARIDAD Administration Miscellaneous Information 1 each 09/15/24 00:01 09/17/24 03:23 Order Clarification - Nonformulary Ferric Citrate [Auryxia] 210 Mg Iron Tablet XX 10/15/24 00:00 Not Given [facility] Miscellaneous Information 1 each 09/15/24 00:01 Med Rec Order Clarification -Phuc/Poly/Hydrocortisone Ear Drops XX 10/15/24 00:00 [facility] Miscellaneous Information 0 each 09/17/24 21:45 Home Torsemide- Ordered From Home Med List, But The Patient Is Currently On Furosemide 80m XX 10/17/24 21:44 [facility] Multivitamins Therapeutic 1 tablet 09/16/24 09:00 09/18/24 10:18 Multivitamins Therapeutic Tab (*Bkc) PO 1 tablet DAILY CARIDAD Administration Neomycin/Polymyxin/Hydrocortisone 4 drop 09/15/24 14:00 Neomycin/Polymyxin/Hydrocort Ot Susp 10 Ml Btl (*Bkc) RIGHT EAR Q8HR CARIDAD Non-Formulary Medication 210 mg 09/15/24 12:00 Ferric Citrate [Auryxia] PO 10/15/24 11:59 TIDWM CARIDAD Nortriptyline HCl 50 mg 09/15/24 12:00 09/18/24 10:16 Nortriptyline Hcl 25 Mg Capsule PO 50 mg DAILY CARIDAD Administration Ondansetron HCl 4 mg 09/14/24 18:46 09/15/24 11:55 Ondansetron Inj 4 Mg/2 Ml Vial IV PUSH 4 mg Q4H PRN Administration Nausea Ondansetron HCl 8 mg 09/15/24 10:46 Ondansetron Hcl Odt 4 Mg Tablet BY MOUTH Q8H PRN nausea and vomiting Pantoprazole Sodium 40 mg 09/16/24 12:15 09/18/24 10:18 Pantoprazole 40 Mg Tablet PO 40 mg QAM CARIDAD Administration Prochlorperazine Edisylate 10 mg 09/15/24 15:19 09/15/24 15:22 Prochlorperazine Edisylate 10 Mg/2 Ml Vial IV PUSH 10 mg Q6H PRN Administration Nausea And Vomiting Sacubitril/Valsartan 1 tablet 09/15/24 17:00 09/18/24 10:15 Sacubitril/Valsartan 49-51 Mg Tablet PO 1 tablet BID CARIDAD Administration Torsemide 100 mg 09/18/24 09:00 Torsemide 20 Mg Tablet PO QAM [facility] Radiology Results: ITS Impressions Chest X-Ray 09/17/24 19:29 IMPRESSION: Mild interstitial edema. Multiple pulmonary nodules which are better seen by prior CT. Head CT 09/17/24 20:09 IMPRESSION: No acute intracranial process. Right mastoid effusion and middle ear fluid, correlate for clinical findings of otomastoiditis. Labs Labs: Laboratory Tests 09/18/24 03:47 09/18/24 03:47 Calcium 8.4 Phosphorus 5.7 H Albumin 3.5
[2024-09-18] MEDS: SACUBITRIL/VALSARTAN 49-51 MG TABLET 1 TABLET PO ×2 (10:15→17:13)
[2024-09-18] MEDS: CALCIUM ACETATE 667 MG TABLET 2668 MG PO ×3 (10:16→17:13)
[2024-09-18] MEDS: NORTRIPTYLINE HCL 25 MG CAPSULE 50 MG PO (10:16)
[2024-09-18] MEDS: CINACALCET 30 MG TABLET 90 MG PO (10:16)
[2024-09-18] MEDS: ESCITALOPRAM OXALATE 10 MG TABLET PO (10:17)
[2024-09-18] MEDS: EMPAGLIFLOZIN 10 MG TABLET BY MOUTH (10:17)
[2024-09-18] MEDS: MULTIVITAMINS THERAPEUTIC TAB (*BKC) 1 TABLET PO (10:18)
[2024-09-18] MEDS: PANTOPRAZOLE 40 MG TABLET PO (10:18)
--- NOTE | 2024-09-18 12:35 | P.PNIM_ITS ---
Progress Note: A&P Assessment and Plan (1) End-stage renal disease on peritoneal dialysis: Code(s): N18.6 - End stage renal disease; Z99.2 - Dependence on renal dialysis Status: Acute (2) Acute hyponatremia: Code(s): E87.1 - Hypo-osmolality and hyponatremia Status: Acute (3) Hypoxemia: Code(s): R09.02 - Hypoxemia Status: Acute (4) Anasarca: Code(s): R60.1 - Generalized edema Status: Acute Plan 54-year-old male on peritoneal dialysis reports [facility] on 09/14/2024 with complaint of shortness of breath swelling and wheezing due to the inability to perform dialysis at home. He stated his machine is not been working properly for a week. He was only able to run 3 hours of peritoneal dialysis. He went to [facility] and reportedly his dialysis catheter was working. Dr. Marcus was contacted and he was advised to present to the ER. Reports increased swelling in his legs abdomen and arms with shortness of breath and wheezing. Reports he barely makes any urine, it is on and off. ER evaluation revealed sodium 116, BUN 67, serum creatinine 16.52. Chest x-ray demonstrating mild pulmonary edema. He was given Zofran, Lasix, Solu-Medrol, DuoNeb, Coreg, Entresto, magnesium. Dr. Marcus contacted from the ER. Advise 1500 cc fluid restriction. Re-attempted peritoneal catheter dialysis overnight and was unsuccessful. Since then plans to initiate hemodialysis has been mmade however pd catehter has started working and now on PD. gen surg consulted for possible HD cath placement however this is canceled now. Hyponatremia likely due to renal failure improving. Fluid overload With acute hypercapnic respiratory failure needing BiPAP 09/17/2024. Improved ABG in a.m.. End-stage renal disease on peritoneal dialysis Ongoing peritoneal dialysis. Will check CT abdomen pelvis to further evaluate Peritoneal dialysis catheter issue. hypertension Hyperlipidemia Diastolic dysfunction Cardiomyopathy DVT prophylaxis SCDs Code status full code Subjective Date/time seen: 09/18/24 12:35 Interval history: had used BiPAP overnight. ABG in a.m. improved. He reports he does not like BiPAP and does not want to use it anymore. He is more awake today. He received peritoneal dialysis overnight. Chest x-ray reviewed. Review of Systems Review of Systems: All systems reviewed & are unremarkable except as noted in HPI and below (HPI) Exam Narrative: GENERAL: Chronically ill-appearing, NAD HEAD: Normocephalic, atraumatic. EYES: PERRLA and EOMI. ENT: Nares clear, no rhinorrhea or epistaxis. Mucous membranes moist. NECK: Supple. CHEST: Mild expiratory wheezing throughout all lung [place]. Speaking in full sentences, in no respiratory distress HEART: Regular rate and rhythm. No murmur heard. Normal peripheral pulses. ABDOMEN: Abdomen distended, nontender peritoneal catheter in-situ which is hooked to the dialysate EXTREMITIES: Normal range of motion. Pitting edema to bilateral lower extremities SKIN: Warm, dry, no rash. NEURO: No focal deficits. Alert and oriented x3 Objective Data Vital Signs Vital Signs: Vital Signs - 24 hr 09/17/24 16:00 09/17/24 16:20 09/17/24 16:30 Temperature 97.1 F L Pulse Rate 77 Respiratory Rate 20 18 Blood Pressure Pulse Oximetry 99 Oxygen Delivery BiPAP BiPAP Oxygen Flow Rate Fraction of Inspired Oxygen 09/17/24 18:22 09/17/24 19:00 09/17/24 20:00 Temperature Pulse Rate 100 Respiratory Rate 24 H 20 18 Blood Pressure 134/88 Pulse Oximetry Oxygen Delivery BiPAP Oxygen Flow Rate Fraction of Inspired Oxygen 09/17/24 20:00 09/17/24 20:03 09/17/24 20:10 Temperature Pulse Rate 102 H Respiratory Rate 18 18 Blood Pressure Pulse Oximetry 97 Oxygen Delivery BiPAP BiPAP Oxygen Flow Rate Fraction of Inspired Oxygen 30 09/17/24 20:17 09/17/24 20:34 09/17/24 21:14 Temperature 97.1 F L 99.8 F H Pulse Rate 100 88 90 Respiratory Rate 24 H 16 21 H Blood Pressure 134/88 95/60 L Pulse Oximetry 97 95 Oxygen Delivery BiPAP Oxygen Flow Rate Fraction of Inspired Oxygen 09/17/24 23:53 09/18/24 00:00 09/18/24 00:00 Temperature 99.2 F Pulse Rate 98 98 Respiratory Rate 20 Blood Pressure 128/68 Pulse Oximetry 97 96 Oxygen Delivery BiPAP Oxygen Flow Rate Fraction of Inspired Oxygen 30 09/18/24 00:12 09/18/24 01:32 09/18/24 01:33 Temperature Pulse Rate 95 85 85 Respiratory Rate 18 19 Blood Pressure Pulse Oximetry 96 Oxygen Delivery BiPAP Oxygen Flow Rate Fraction of Inspired Oxygen 09/18/24 04:00 09/18/24 04:00 09/18/24 04:07 Temperature 98.0 F Pulse Rate 100 101 H Respiratory Rate 18 Blood Pressure 93/59 L Pulse Oximetry 94 100 Oxygen Delivery BiPAP Oxygen Flow Rate Fraction of Inspired Oxygen 30 09/18/24 04:34 09/18/24 06:00 09/18/24 08:00 Temperature 98.5 F Pulse Rate 80 109 H 101 H Respiratory Rate 20 28 H Blood Pressure 111/76 Pulse Oximetry 94 94 Oxygen Delivery BiPAP Oxygen Flow Rate Fraction of Inspired Oxygen 09/18/24 08:40 09/18/24 08:40 09/18/24 08:50 Temperature Pulse Rate 104 H 106 H Respiratory Rate 20 20 Blood Pressure Pulse Oximetry 95 Oxygen Delivery Nasal Cannula Oxygen Flow Rate 2 Fraction of Inspired Oxygen 09/18/24 10:15 09/18/24 11:50 Temperature 98.5 F Pulse Rate 103 H 103 H Respiratory Rate 20 Blood Pressure 111/67 Pulse Oximetry Oxygen Delivery Oxygen Flow Rate 2 Fraction of Inspired Oxygen Intake/Output Intake/Output: Intake & Output 09/15/24 09/16/24 09/17/24 09/18/24 23:59 23:59 23:59 23:59 Intake Total 6321.2 7731.2 20 240 Output Total 100 8045 5702 1 Balance 6221.2 -313.8 -5682 -1791 Meds/Results Medications: Active Medications Generic Name Dose Route Start Last Admin Trade Name Freq PRN Reason Stop Dose Admin Hydrocodone Bitart/Acetaminophen 1 tab 09/15/24 10:46 09/17/24 09:58 Hydrocodone/Acetaminophen (*Crx) 5-325 Mg Tablet PO 1 tab Q8H PRN Administration Pain Rated 4-10 Albuterol 2 puff 09/14/24 22:49 09/16/24 16:47 Albuterol Sulfate (*Sp) Aerosol 1 Puff INHALATION 2 puff QID PRN Administration shortness of breath or wheezing Albuterol/Ipratropium 3 ml 09/17/24 20:00 09/18/24 08:40 Ipratropium 0.5 Mg/Albuterol Sulfate 2.5 Mg Ampul.Neb 3 Ml INHALATION 3 ml Q6HRT CARIDAD Administration Buspirone HCl 10 mg 09/15/24 13:00 09/18/24 10:16 Buspirone Hcl 10 Mg Tablet BY MOUTH 10 mg TID CARIDAD Administration Calcium Acetate 2,668 mg 09/15/24 12:00 09/18/24 10:16 Calcium Acetate 667 Mg Tablet PO 2,668 mg TIDWM CARIDAD Administration Calcium Carbonate 200 mg 09/15/24 10:46 Calcium Carbonate (Tums) 500 Mg (200 Mg Elemental) PO HS PRN Indigestion Carvedilol 6.25 mg 09/15/24 10:50 09/18/24 10:15 Carvedilol 6.25 Mg Tablet PO 6.25 mg Q12H CARIDAD Administration Carvedilol 25 mg 09/15/24 11:35 09/18/24 00:13 Carvedilol 25 Mg Tablet PO Not Given Q12H CARIDAD Cinacalcet 90 mg 09/16/24 09:00 09/18/24 10:16 Cinacalcet 30 Mg Tablet PO 90 mg DAILY CARIDAD Administration Diphenoxylate HCl/Atropine 1 tablet 09/15/24 10:46 Diphenoxylate/Atropine (*Crx) 2.5 Mg Tablet PO QID PRN diarrhea Empagliflozin 10 mg 09/15/24 12:10 09/18/24 10:17 Empagliflozin 10 Mg Tablet BY MOUTH 10 mg DAILY CARIDAD Administration Escitalopram Oxalate 10 mg 09/15/24 12:00 09/18/24 10:17 Escitalopram Oxalate 10 Mg Tablet PO 10 mg DAILY CARIDAD Administration Gabapentin 300 mg 09/15/24 13:00 09/17/24 09:02 Gabapentin 300 Mg Capsule BY MOUTH 300 mg TID CARIDAD Administration Gentamicin Sulfate 1 applic 09/15/24 10:46 Gentamicin Sulfate 0.1% Cr 15 Gm Tube TOPICAL TID PRN DIALYSIS CATH. Melatonin 20 mg 09/15/24 21:00 09/16/24 23:07 Melatonin 5 Mg Tablet PO 20 mg HS CARIDAD Administration Miscellaneous Information 1 each 09/15/24 00:01 09/17/24 03:23 Order Clarification - Nonformulary Ferric Citrate [Auryxia] 210 Mg Iron Tablet XX 10/15/24 00:00 Not Given [facility] Miscellaneous Information 1 each 09/15/24 00:01 Med Rec Order Clarification -Phuc/Poly/Hydrocortisone Ear Drops XX 10/15/24 00:00 [facility] Miscellaneous Information 0 each 09/17/24 21:45 Home Torsemide- Ordered From Home Med List, But The Patient Is Currently On Furosemide 80m XX 10/17/24 21:44 [facility]IFY [facility] Multivitamins Therapeutic 1 tablet 09/16/24 09:00 09/18/24 10:18 Multivitamins Therapeutic Tab (*Bkc) PO 1 tablet DAILY CARIDAD Administration Neomycin/Polymyxin/Hydrocortisone 4 drop 09/15/24 14:00 Neomycin/Polymyxin/Hydrocort Ot Susp 10 Ml Btl (*Bkc) RIGHT EAR Q8HR [facility] Non-Formulary Medication 210 mg 09/15/24 12:00 Ferric Citrate [Auryxia] PO 10/15/24 11:59 TIDWM CARIDAD Nortriptyline HCl 50 mg 09/15/24 12:00 09/18/24 10:16 Nortriptyline Hcl 25 Mg Capsule PO 50 mg DAILY CARIDAD Administration Ondansetron HCl 4 mg 09/14/24 18:46 09/15/24 11:55 Ondansetron Inj 4 Mg/2 Ml Vial IV PUSH 4 mg Q4H PRN Administration Nausea Ondansetron HCl 8 mg 09/15/24 10:46 Ondansetron Hcl Odt 4 Mg Tablet BY MOUTH Q8H PRN nausea and vomiting Pantoprazole Sodium 40 mg 09/16/24 12:15 09/18/24 10:18 Pantoprazole 40 Mg Tablet PO 40 mg QAM CARIDAD Administration Prochlorperazine Edisylate 10 mg 09/15/24 15:19 09/15/24 15:22 Prochlorperazine Edisylate 10 Mg/2 Ml Vial IV PUSH 10 mg Q6H PRN Administration Nausea And Vomiting Sacubitril/Valsartan 1 tablet 09/15/24 17:00 09/18/24 10:15 Sacubitril/Valsartan 49-51 Mg Tablet PO 1 tablet BID CARIDAD Administration Torsemide 100 mg 09/18/24 09:00 Torsemide 20 Mg Tablet PO QAM [facility] Radiology Results: ITS Impressions Chest X-Ray 09/17/24 19:29 IMPRESSION: Mild interstitial edema. Multiple pulmonary nodules which are better seen by prior CT. Head CT 09/17/24 20:09 IMPRESSION: No acute intracranial process. Right mastoid effusion and middle ear fluid, correlate for clinical findings of otomastoiditis. Labs Labs: Laboratory Results - last 24 hr 09/17/24 09/17/24 09/18/24 15:37 18:05 03:47 WBC 16.2 H RBC 3.78 L Hgb 11.8 L Hct 36.4 L MCV 96.3 MCH 31.2 MCHC 32.4 RDW 13.9 Plt Count 432 H MPV 8.8 Puncture Site Right radial Right radial ABG pH 7.266 L* 7.269 L* ABG pCO2 56.3 H 57.2 H ABG pO2 72.0 L 78.7 L ABG PO2/FiO2 Ratio 2.57 2.62 ABG HCO3 25.0 25.6 ABG O2 Saturation 92.0 L 93.7 L ABG O2 Content 16.2 16.5 ABG Base Excess -2.6 -2.1 A-a Gradient 61.2 68.0 Oxyhemoglobin 91.3 92.6 Carboxyhemoglobin Methemoglobin Reduced Hemoglobin Total Hemoglobin 12.6 12.6 O2 Delivery Device Nasal cannula Bipap O2 Liters/Min 2.0 Not Reportable Vent Rate FiO2 28 30 Expiratory Pressure 7 Inspiratory Pressure 12 Sodium 126 L Potassium 3.0 L Chloride 88 L Carbon Dioxide 24 Anion Gap 14 H BUN 50 H D Creatinine 12.37 H Estim Creat Clear Calc 8 Estimated GFR 4 L Glucose 195 H Calcium 8.4 Phosphorus 5.7 H Albumin 3.5 09/18/24 04:20 WBC RBC Hgb Hct MCV MCH MCHC RDW Plt Count MPV Puncture Site Right radial ABG pH 7.355 ABG pCO2 47.3 H ABG pO2 64.2 L ABG PO2/FiO2 Ratio 2.14 ABG HCO3 25.8 ABG O2 Saturation 91.5 L ABG O2 Content 16.1 ABG Base Excess -0.1 A-a Gradient 94.1 Oxyhemoglobin 90.9 Carboxyhemoglobin 1.3 Methemoglobin 0.3 Reduced Hemoglobin 7.5 H Total Hemoglobin 12.6 O2 Delivery Device Non-invasive vent O2 Liters/Min Not Reportable Vent Rate 12 FiO2 30 Expiratory Pressure 7 Inspiratory Pressure 18 Sodium Potassium Chloride Carbon Dioxide Anion Gap BUN Creatinine Estim Creat Clear Calc Estimated GFR Glucose Calcium Phosphorus Albumin
[2024-09-18] MEDS: PERITONEAL DIALYSIS XX ×4 (18:57→18:59)
[2024-09-18] MEDS: HEPARIN SODIUM XX ×4 (18:57→18:59)
[2024-09-19] VITALS (19 sets, daily range): BP systolic 94–128; BP diastolic 52–90; PULSE 77–105; RESP 12–22; TEMP 36.7–36.9; O2SAT 92–98
[2024-09-19] MEDS: IPRATROPIUM 0.5 MG/ALBUTEROL SULFATE 2.5 MG AMPUL.NEB 3 ML INHALATION ×4 (01:49→20:55)
[2024-09-19 04:25] LABS: Hematocrit 39.5 % (42.0-52.0); Hemoglobin 12.4 g/dL (14.0-18.0); Immature Granulocyte Percent A 0.5 % (0-0.5); Lymphocytes Absolute Auto 1.90 K/mm3 (0.9-3.2); Mean Corpuscular HGB Conc 31.4 g/dl (32-36); Mean Corpuscular Hemoglobin 30.8 pg (26-34); Mean Corpuscular Volume 98.3 fl (80-100); Nucleated Red Blood Cells Absolute Auto 0.000 K/mm3 (0.0-0.012); Nucleated Red Blood Cells Perc 0.0 % (0.0-0.2); Platelet Count Result 465 k/mm3 (150-375); Red Blood Count 4.02 M/mm3 (4.6-6.20); White Blood Count 18.5 K/mm3 (4.5-10.0)
[2024-09-19 04:48] LABS: Alanine Aminotransferase 17 U/L (6-50); Albumin Level 3.7 g/dL (3.5-5.1); Alkaline Phosphatase 120 U/L (38-126); Anion Gap 13 mmol/L (4-12); Aspartate Amino Transferase 26 U/L (17-59); Bilirubin,Total 0.5 mg/dL (0.2-1.3); Blood Urea Nitrogen 46 mg/dL (9-20); Calcium 9.0 mg/dL (8.4-10.2); Carbon Dioxide 25 mmol/L (22-30); Chloride 91 mmol/L (98-107); Estimated CRCL calculation 8 ml/min; Estimated Glomerular Filt Rate 5; Glucose 177 mg/dL (65-110); Magnesium 1.7 mg/dL (1.6-2.3); Potassium 2.9 mmol/L (3.4-5.0); Sodium 129 mmol/L (137-145); Total Protein 6.7 g/dL (6.3-8.2)
--- NOTE | 2024-09-19 08:02 | PM.IMPN ---
Progress Note: A&P Assessment and Plan (1) End-stage renal disease on peritoneal dialysis: Code(s): N18.6 - End stage renal disease; Z99.2 - Dependence on renal dialysis Status: Acute (2) Acute hyponatremia: Code(s): E87.1 - Hypo-osmolality and hyponatremia Status: Acute (3) Hypoxemia: Code(s): R09.02 - Hypoxemia Status: Acute (4) Anasarca: Code(s): R60.1 - Generalized edema Status: Acute Plan 54-year-old male on peritoneal dialysis reports [facility] on 09/14/2024 with complaint of shortness of breath swelling and wheezing due to the inability to perform dialysis at home. He stated his machine is not been working properly for a week. He was only able to run 3 hours of peritoneal dialysis. He went to [facility] and reportedly his dialysis catheter was working. Dr. Marcus was contacted and he was advised to present to the ER. Reports increased swelling in his legs abdomen and arms with shortness of breath and wheezing. Reports he barely makes any urine, it is on and off. ER evaluation revealed sodium 116, BUN 67, serum creatinine 16.52. Chest x-ray demonstrating mild pulmonary edema. He was given Zofran, Lasix, Solu-Medrol, DuoNeb, Coreg, Entresto, magnesium. Dr. Marcus contacted from the ER. Advise 1500 cc fluid restriction. Re-attempted peritoneal catheter dialysis overnight and was unsuccessful. Since then plans to initiate hemodialysis has been mmade however pd catehter has started working and now on PD. gen surg consulted for possible HD cath placement however this is canceled now. Hyponatremia likely due to renal failure improving. Fluid overload With acute hypercapnic respiratory failure needing BiPAP 09/17/2024. Improved ABG in a.m.. End-stage renal disease on peritoneal dialysis Ongoing peritoneal dialysis. CT abdomen pelvis without any acute issues noted hypertension Hyperlipidemia Diastolic dysfunction Cardiomyopathy DVT prophylaxis SCDs Code status full code Disposition: PT OT to see Subjective Date/time seen: 09/19/24 08:02 Interval history: No overnight events. Slight nausea reported. No abdominal pain. Breathing is better. Underwent peritoneal dialysis overnight. Review of Systems Review of Systems: All systems reviewed & are unremarkable except as noted in HPI and below (HPI) Exam Narrative: GENERAL: Chronically ill-appearing, NAD HEAD: Normocephalic, atraumatic. EYES: PERRLA and EOMI. ENT: Nares clear, no rhinorrhea or epistaxis. Mucous membranes moist. NECK: Supple. CHEST: Diminished breath sounds bilaterally Speaking in full sentences, in no respiratory distress no wheezes HEART: Regular rate and rhythm. No murmur heard. Normal peripheral pulses. ABDOMEN: Abdomen distended, nontender peritoneal catheter in-situ EXTREMITIES: Normal range of motion. Trace edema to bilateral lower extremities SKIN: Warm, dry, no rash. NEURO: No focal deficits. Alert and oriented x3 Objective Data Vital Signs Vital Signs: Vital Signs - 24 hr 09/18/24 08:40 09/18/24 08:40 09/18/24 08:50 Temperature Pulse Rate 104 H 106 H Respiratory Rate 20 20 Blood Pressure Pulse Oximetry 95 Oxygen Delivery Nasal Cannula Oxygen Flow Rate 2 Fraction of Inspired Oxygen 09/18/24 10:00 09/18/24 10:15 09/18/24 11:44 Temperature Pulse Rate 98 103 H 105 H Respiratory Rate Blood Pressure Pulse Oximetry Oxygen Delivery Oxygen Flow Rate Fraction of Inspired Oxygen 09/18/24 11:50 09/18/24 12:00 09/18/24 12:00 Temperature 98.5 F 98.3 F Pulse Rate 103 H 101 H 95 Respiratory Rate 20 22 H Blood Pressure 111/67 111/68 Pulse Oximetry 97 Oxygen Delivery Oxygen Flow Rate 2 Fraction of Inspired Oxygen 09/18/24 12:00 09/18/24 13:36 09/18/24 13:44 Temperature Pulse Rate 102 H 101 H Respiratory Rate 20 20 Blood Pressure Pulse Oximetry 98 Oxygen Delivery Nasal Cannula Oxygen Flow Rate 2 Fraction of Inspired Oxygen 09/18/24 14:00 09/18/24 16:00 09/18/24 16:00 Temperature 99 F Pulse Rate 98 95 Respiratory Rate 20 Blood Pressure 99/73 L Pulse Oximetry 96 98 Oxygen Delivery Nasal Cannula Oxygen Flow Rate 2 Fraction of Inspired Oxygen 09/18/24 16:00 09/18/24 18:00 09/18/24 18:33 Temperature Pulse Rate 102 H 95 Respiratory Rate Blood Pressure Pulse Oximetry Oxygen Delivery Oxygen Flow Rate 2 Fraction of Inspired Oxygen 09/18/24 19:50 09/18/24 19:57 09/18/24 20:00 Temperature 99.0 F Pulse Rate 108 H 105 H Respiratory Rate 20 18 Blood Pressure 94/74 L Pulse Oximetry 93 98 Oxygen Delivery Room Air Oxygen Flow Rate Fraction of Inspired Oxygen 09/18/24 20:00 09/18/24 20:08 09/18/24 22:18 Temperature Pulse Rate 101 H 105 H 103 H Respiratory Rate 18 Blood Pressure Pulse Oximetry Oxygen Delivery Oxygen Flow Rate Fraction of Inspired Oxygen 09/18/24 22:47 09/18/24 22:56 09/18/24 23:01 Temperature Pulse Rate 108 H 108 H Respiratory Rate Blood Pressure Pulse Oximetry 93 Oxygen Delivery Room Air Oxygen Flow Rate Fraction of Inspired Oxygen 09/18/24 23:39 09/19/24 00:00 09/19/24 00:00 Temperature 98.2 F Pulse Rate 100 100 Respiratory Rate 21 H Blood Pressure 107/69 Pulse Oximetry 95 98 Oxygen Delivery Room Air Oxygen Flow Rate Fraction of Inspired Oxygen 09/19/24 01:49 09/19/24 01:56 09/19/24 02:00 Temperature Pulse Rate 105 H 105 H 90 Respiratory Rate 18 18 Blood Pressure Pulse Oximetry Oxygen Delivery Oxygen Flow Rate Fraction of Inspired Oxygen 09/19/24 04:00 09/19/24 04:00 09/19/24 04:29 Temperature 98.5 F Pulse Rate 91 97 Respiratory Rate 22 H Blood Pressure 118/90 Pulse Oximetry 92 96 Oxygen Delivery Room Air Oxygen Flow Rate Fraction of Inspired Oxygen 09/19/24 05:59 09/19/24 07:46 Temperature 98.0 F Pulse Rate 87 100 Respiratory Rate 16 Blood Pressure 128/78 Pulse Oximetry 98 Oxygen Delivery Oxygen Flow Rate Fraction of Inspired Oxygen Intake/Output Intake/Output: Intake & Output 09/16/24 09/17/24 09/18/24 09/19/24 23:59 23:59 23:59 23:59 Intake Total 7731.2 20 9041.6 350 Output Total 8045 5702 2109 4114 [facility] -313.8 -3926 6935.6 -5140 Meds/Results Medications: Active Medications Generic Name Dose Route Start Last Admin Trade Name Freq PRN Reason Stop Dose Admin Hydrocodone Bitart/Acetaminophen 1 tab 09/15/24 10:46 09/17/24 09:58 Hydrocodone/Acetaminophen (*Crx) 5-325 Mg Tablet PO 1 tab Q8H PRN Administration Pain Rated 4-10 Albuterol 2 puff 09/14/24 22:49 07/26/25 16:47 Albuterol Sulfate (*Sp) Aerosol 1 Puff INHALATION 2 puff QID PRN Administration shortness of breath or wheezing Albuterol/Ipratropium 3 ml 09/17/24 20:00 09/19/24 01:49 Ipratropium 0.5 Mg/Albuterol Sulfate 2.5 Mg Ampul.Neb 3 Ml INHALATION 3 ml Q6HRT CARIDAD Administration Buspirone HCl 10 mg 09/15/24 13:00 09/18/24 18:18 Buspirone Hcl 10 Mg Tablet BY MOUTH 10 mg TID CARIDAD Administration Calcium Acetate 2,668 mg 09/15/24 12:00 09/18/24 17:13 Calcium Acetate 667 Mg Tablet PO 2,668 mg TIDWM CARIDAD Administration Calcium Carbonate 200 mg 09/15/24 10:46 Calcium Carbonate (Tums) 500 Mg (200 Mg Elemental) PO HS PRN Indigestion Carvedilol 6.25 mg 09/15/24 10:50 09/18/24 23:01 Carvedilol 6.25 Mg Tablet PO Not Given Q12H [facility] Carvedilol 25 mg 09/15/24 11:35 09/18/24 22:47 Carvedilol 25 Mg Tablet PO 25 mg Q12H CARIDAD Administration Cinacalcet 90 mg 09/16/24 09:00 09/18/24 10:16 Cinacalcet 30 Mg Tablet PO 90 mg DAILY CARIDAD Administration Diphenoxylate HCl/Atropine 1 tablet 09/15/24 10:46 Diphenoxylate/Atropine (*Crx) 2.5 Mg Tablet PO QID PRN diarrhea Empagliflozin 10 mg 09/15/24 12:10 09/18/24 10:17 Empagliflozin 10 Mg Tablet BY MOUTH 10 mg DAILY CARIDAD Administration Escitalopram Oxalate 10 mg 09/15/24 12:00 09/18/24 10:17 Escitalopram Oxalate 10 Mg Tablet PO 10 mg DAILY CARIDAD Administration Gabapentin 300 mg 09/15/24 13:00 09/17/24 09:02 Gabapentin 300 Mg Capsule BY MOUTH 300 mg TID CARIDAD Administration Gabapentin 100 mg 09/19/24 09:00 Gabapentin 100 Mg Capsule PO TID CARIDAD Gentamicin Sulfate 1 applic 09/15/24 10:46 Gentamicin Sulfate 0.1% Cr 15 Gm Tube TOPICAL TID PRN DIALYSIS CATH. Melatonin 20 mg 09/15/24 21:00 09/16/24 23:07 Melatonin 5 Mg Tablet PO 20 mg HS CARIDAD Administration Miscellaneous Information 1 each 09/15/24 00:01 09/17/24 03:23 Order Clarification - Nonformulary Ferric Citrate [Auryxia] 210 Mg Iron Tablet XX 10/15/24 00:00 Not Given CLARIFY CARIDAD Miscellaneous Information 1 each 09/15/24 00:01 Med Rec Order Clarification -Phuc/Poly/Hydrocortisone Ear Drops XX 10/15/24 00:00 CLARIFY [facility] Miscellaneous Information 0 each 09/17/24 21:45 Home Torsemide- Ordered From Home Med List, But The Patient Is Currently On Furosemide 80m XX 10/17/24 21:44 CLARIFY [facility] Multivitamins Therapeutic 1 tablet 09/16/24 09:00 09/18/24 10:18 Multivitamins Therapeutic Tab (*Bkc) PO 1 tablet DAILY CARIDAD Administration Neomycin/Polymyxin/Hydrocortisone 4 drop 09/15/24 14:00 Neomycin/Polymyxin/Hydrocort Ot Susp 10 Ml Btl (*Bkc) RIGHT EAR Q8HR CARIDAD Non-Formulary Medication 210 mg 09/15/24 12:00 Ferric Citrate [Auryxia] PO 10/15/24 11:59 TIDWM CARIDAD Nortriptyline HCl 50 mg 09/15/24 12:00 09/18/24 10:16 Nortriptyline Hcl 25 Mg Capsule PO 50 mg DAILY CARIDAD Administration Ondansetron HCl 4 mg 09/14/24 18:46 09/15/24 11:55 Ondansetron Inj 4 Mg/2 Ml Vial IV PUSH 4 mg Q4H PRN Administration Nausea Ondansetron HCl 8 mg 09/15/24 10:46 Ondansetron Hcl Odt 4 Mg Tablet BY MOUTH Q8H PRN nausea and vomiting Pantoprazole Sodium 40 mg 09/16/24 12:15 09/18/24 10:18 Pantoprazole 40 Mg Tablet PO 40 mg QAM CARIDAD Administration Potassium Chloride 20 meq 09/19/24 12:00 Potassium Chloride 20 Meq Er Tablet PO 09/19/24 12:01 ONCE ONE Prochlorperazine Edisylate 10 mg 09/15/24 15:19 09/15/24 15:22 Prochlorperazine Edisylate 10 Mg/2 Ml Vial IV PUSH 10 mg Q6H PRN Administration Nausea And Vomiting Sacubitril/Valsartan 1 tablet 09/15/24 17:00 09/18/24 17:13 Sacubitril/Valsartan 49-51 Mg Tablet PO 1 tablet BID [facility] Administration Torsemide 100 mg 09/18/24 09:00 [facility]semide 20 [facility] [place] [place] [facility] [place] Results: ITS Impressions Chest X-Ray 09/17/24 19:29 IMPRESSION: Mild interstitial edema. Multiple pulmonary nodules which are better seen by prior CT. Head CT 09/17/24 20:09 IMPRESSION: No acute intracranial process. Right mastoid effusion and middle ear fluid, correlate for clinical findings of otomastoiditis. Abdomen/Pelvis CT 09/18/24 16:20 IMPRESSION: Peritoneal dialysis catheter coiled within simple fluid in the deep pelvis, unchanged in position from 03/28/2024. Layering sludge within the gallbladder. Atrophic bilateral kidneys, consistent with patient's history. Hepatomegaly Labs Labs: Laboratory Results - last 24 hr 09/19/24 03:52 WBC 18.5 H RBC 4.02 L Hgb 12.4 L Hct 39.5 L MCV 98.3 MCH 30.8 MCHC 31.4 L RDW 13.7 Plt Count 465 H MPV 8.9 Immature Gran % (Auto) 0.5 Neut % (Auto) 77.4 H Lymph % (Auto) 10.3 L [place] % (Auto) 10.5 H Eos % (Auto) 1.1 Baso % (Auto) 0.2 Lymph # (Auto) 1.90 [place] # (Auto) 2.0 H Eos # (Auto) 0.2 Baso # (Auto) 0.0 Abs Immat Gran (auto) 0.09 H Absolute Neuts (auto) 14.3 H Absolute Nucleated RBC 0.000 Nucleated RBC % 0.0 Sodium 129 L Potassium 2.9 L Chloride 91 L Carbon Dioxide 25 Anion Gap 13 H BUN 46 H Creatinine 11.68 H Estim Creat Clear Calc 8 Estimated GFR 5 L Glucose 177 H Calcium 9.0 Phosphorus 3.9 Magnesium 1.7 Total Bilirubin 0.5 AST 26 ALT 17 Alkaline Phosphatase 120 Total Protein 6.7 Albumin 3.7
--- NOTE | 2024-09-19 09:32 | P.PNNP_ITS ---
Progress Note: A&P Assessment and Plan (1) End stage renal disease: Code(s): N18.6 - End stage renal disease Status: Chronic Assessment and Plan: * continue nightly CCPD * adjust PD Rx as needed to maximize fluid removal * follow electrolytes, volume status, and clearance * CT of abdomen results noted (2) Acute hypoxic respiratory failure: Code(s): J96.01 - Acute respiratory failure with hypoxia Status: Acute Assessment and Plan: * clinically improving * presumably due to #3 * element of reactive airway disease/COPD(?) * off supplemental oxygen and BiPAP support * continue efforts to optimize fluid status with peritoneal dialysis * follow respiratory status (3) Fluid overload: Qualifiers: Hypervolemia type: unspecified Qualified Code(s): E87.70 - Fluid overload, unspecified Code(s): E87.70 - Fluid overload, unspecified Status: Acute Assessment and Plan: * improved * as noted on admission * pulmonary edema on admission CXR * noted LE and UE swelling/edema * though to be secondary to inability to get PD treatments at home (machine/cycler issue) * continue aggressive ultrafiltration as tolerated * since not making much urine, unclear if diuretics helpful * follow volume status (4) Hyponatremia: Code(s): E87.1 - Hypo-osmolality and hyponatremia Status: Acute Assessment and Plan: * slow/steady improvement noted * noted on admission * slow improvement with fluid restriction and ultrafiltration * suspect low sodium due to hypervolemia/fluid overload and water intake as well as ESRD * follow trend of sodium (5) Anemia: Code(s): D64.9 - Anemia, unspecified Status: Acute Assessment and Plan: * hemoglobin supratherapeutic * Epogen on hold * follow trend of H/H (6) Peripheral neuropathy: Code(s): G62.9 - Polyneuropathy, unspecified Status: Chronic Assessment and Plan: * known diagnosis * follows with Neurology as an outpatient Will continue to follow. L Subjective Date/time seen: 09/19/24 09:32 Interval history: Follow-up for end stage renal disease on peritoneal dialysis. Tolerated peritoneal dialysis yesterday evening without any issue or problems -- good ultrafiltration with ~ 4.2L fluid removal; off supplemental oxygen at the time of my visit; overall, states that he is feeling reasonably well. Exam 2 Narrative: General: WD/WN male in NAD Heart: normal S1 and S2; no rub Lungs: clear anteriorly; decreased at bases Abdomen: soft, nontender, nondistended, positive bowel sounds Extremities: no cyanosis or clubbing; 1+ edema Skin: warm and intact Objective Data Vital Signs Vital Signs: Vital Signs Temp Pulse Resp BP Pulse Ox O2 Del Method O2 Flow Rate 09/19/24 09:30 95 18 09/19/24 08:00 103 H 09/19/24 07:46 98.0 F 100 16 128/78 98 09/19/24 05:59 87 09/19/24 04:29 98.5 F 97 22 H 118/90 96 09/19/24 04:00 91 09/19/24 04:00 92 Room Air 09/19/24 02:00 90 09/19/24 01:56 105 H 18 09/19/24 01:49 105 H 18 09/19/24 00:00 100 09/19/24 00:00 98 Room Air 09/18/24 23:39 98.2 F 100 21 H 107/69 95 09/18/24 23:01 108 H 09/18/24 22:56 93 Room Air 09/18/24 22:47 108 H 09/18/24 22:18 103 H 09/18/24 20:08 105 H 18 09/18/24 20:00 101 H 09/18/24 20:00 98 Room Air 09/18/24 19:57 105 H 18 09/18/24 19:50 99.0 F 108 H 20 94/74 L 93 09/18/24 18:33 2 09/18/24 18:00 95 09/18/24 16:00 102 H 09/18/24 16:00 98 Nasal Cannula 2 09/18/24 16:00 99 F 95 20 99/73 L 96 Intake/Output Intake/Output: Intake & Output 09/16/24 09/17/24 09/18/24 09/19/24 23:59 23:59 23:59 23:59 Intake Total 7731.2 20 9041.6 590 Output Total 8045 5702 2106 3804 Balance -313.8 -7330 6935.6 -4219 Meds/Results Medications: Active Medications Generic Name Dose Route Start Last Admin Trade Name Freq PRN Reason Stop Dose Admin Hydrocodone Bitart/Acetaminophen 1 tab 09/15/24 10:46 09/17/24 09:58 Hydrocodone/Acetaminophen (*Crx) 5-325 Mg Tablet PO 1 tab Q8H PRN Administration Pain Rated 4-10 Albuterol 2 puff 09/14/24 22:49 09/16/24 16:47 Albuterol Sulfate (*Sp) Aerosol 1 Puff INHALATION 2 puff QID PRN Administration shortness of breath or wheezing Albuterol/Ipratropium 3 ml 09/17/24 20:00 09/19/24 09:30 Ipratropium 0.5 Mg/Albuterol Sulfate 2.5 Mg Ampul.Neb 3 Ml INHALATION 3 ml Q6HRT CARIDAD Administration Buspirone HCl 10 mg 09/15/24 13:00 09/19/24 12:11 Buspirone Hcl 10 Mg Tablet BY MOUTH 10 mg TID CARIDAD Administration Calcium Acetate 2,668 mg 09/15/24 12:00 09/19/24 12:11 Calcium Acetate 667 Mg Tablet PO 2,668 mg TIDWM CARIDAD Administration Calcium Carbonate 200 mg 09/15/24 10:46 Calcium Carbonate (Tums) 500 Mg (200 Mg Elemental) PO HS PRN Indigestion Carvedilol 25 mg 09/15/24 11:35 09/19/24 12:11 Carvedilol 25 Mg Tablet PO 25 mg Q12H CARIDAD Administration Cinacalcet 90 mg 09/16/24 09:00 09/19/24 09:55 Cinacalcet 30 Mg Tablet PO 90 mg DAILY CARIDAD Administration Diphenoxylate HCl/Atropine 1 tablet 09/15/24 10:46 Diphenoxylate/Atropine (*Crx) 2.5 Mg Tablet PO QID PRN diarrhea Empagliflozin 10 mg 09/15/24 12:10 09/19/24 09:52 Empagliflozin 10 Mg Tablet BY MOUTH 10 mg DAILY CARIDAD Administration Escitalopram Oxalate 10 mg 09/15/24 12:00 09/19/24 09:54 Escitalopram Oxalate 10 Mg Tablet PO 10 mg DAILY CARIDAD Administration Gabapentin 300 mg 09/15/24 13:00 09/17/24 09:02 Gabapentin 300 Mg Capsule BY MOUTH 300 mg TID CARIDAD Administration Gabapentin 100 mg 09/19/24 09:00 09/19/24 12:11 Gabapentin 100 Mg Capsule PO 100 mg TID CARIDAD Administration Gentamicin Sulfate 1 applic 09/15/24 10:46 Gentamicin Sulfate 0.1% Cr 15 Gm Tube TOPICAL TID PRN DIALYSIS CATH. Melatonin 20 mg 09/15/24 21:00 09/16/24 23:07 Melatonin 5 Mg Tablet PO 20 mg HS CARIDAD Administration Multivitamins Therapeutic 1 tablet 09/16/24 09:00 09/19/24 09:54 Multivitamins Therapeutic Tab (*Bkc) PO 1 tablet DAILY CARIDAD Administration Neomycin/Polymyxin/Hydrocortisone 3 drop 09/19/24 13:00 Neomycin/Polymyx/Hydrocort Ot Soln 10 Ml Btl (*Bkc) RIGHT EAR QID CARIDAD Nortriptyline HCl 50 mg 09/15/24 12:00 09/19/24 09:54 Nortriptyline Hcl 25 Mg Capsule PO 50 mg DAILY CARIDAD Administration Ondansetron HCl 4 mg 09/14/24 18:46 09/15/24 11:55 Ondansetron Inj 4 Mg/2 Ml Vial IV PUSH 4 mg Q4H PRN Administration Nausea Ondansetron HCl 8 mg 09/15/24 10:46 Ondansetron Hcl Odt 4 Mg Tablet BY MOUTH Q8H PRN nausea and vomiting Pantoprazole Sodium 40 mg 09/16/24 12:15 09/19/24 09:54 Pantoprazole 40 Mg Tablet PO 40 mg QAM [facility] Administration Prochlorperazine Edisylate 10 mg 09/15/24 15:19 09/15/24 15:22 Prochlorperazine Edisylate 10 Mg/2 Ml Vial IV PUSH 10 mg Q6H PRN Administration Nausea And Vomiting Sacubitril/Valsartan 1 tablet 09/15/24 17:00 09/19/24 09:54 Sacubitril/Valsartan 49-51 Mg Tablet PO 1 tablet BID CARIDAD Administration Torsemide 100 mg 09/20/24 09:00 Torsemide 20 Mg Tablet PO QAM [facility] Radiology Results: ITS Impressions Chest X-Ray 09/17/24 19:29 IMPRESSION: Mild interstitial edema. Multiple pulmonary nodules which are better seen by prior CT. Head CT 09/17/24 20:09 IMPRESSION: No acute intracranial process. Right mastoid effusion and middle ear fluid, correlate for clinical findings of otomastoiditis. Abdomen/Pelvis CT 07/28/25 16:20 IMPRESSION: Peritoneal dialysis catheter coiled within simple fluid in the deep pelvis, unchanged in position from 03/28/2024. Layering sludge within the gallbladder. Atrophic bilateral kidneys, consistent with patient's history. Hepatomegaly Labs Labs: Laboratory Tests 09/19/24 03:52 09/19/24 03:52 Calcium 9.0 Phosphorus 3.9 Magnesium 1.7 Total Bilirubin 0.5 AST 26 ALT 17 Alkaline Phosphatase 120 Total Protein 6.7 Albumin 3.7
[2024-09-19] MEDS: EMPAGLIFLOZIN 10 MG TABLET BY MOUTH (09:52)
[2024-09-19] MEDS: GABAPENTIN 100 MG CAPSULE PO ×3 (09:53→18:17)
[2024-09-19] MEDS: SACUBITRIL/VALSARTAN 49-51 MG TABLET 1 TABLET PO ×2 (09:54→18:18)
[2024-09-19] MEDS: PANTOPRAZOLE 40 MG TABLET PO (09:54)
[2024-09-19] MEDS: ESCITALOPRAM OXALATE 10 MG TABLET PO (09:54)
[2024-09-19] MEDS: NORTRIPTYLINE HCL 25 MG CAPSULE 50 MG PO (09:54)
[2024-09-19] MEDS: MULTIVITAMINS THERAPEUTIC TAB (*BKC) 1 TABLET PO (09:54)
[2024-09-19] MEDS: CINACALCET 30 MG TABLET 90 MG PO (09:55)
[2024-09-19] MEDS: POTASSIUM CHLORIDE 20 MEQ ER TABLET 40 MEQ PO (10:00)
[2024-09-19] MEDS: CALCIUM ACETATE 667 MG TABLET 2668 MG PO ×2 (12:11→18:17)
[2024-09-19] MEDS: POTASSIUM CHLORIDE 20 MEQ ER TABLET PO (12:11)
[2024-09-19 13:30] LABS: MRSA (PCR) NOT DETECTED (NOT DETECTE)
[2024-09-19] MEDS: POLYMYX RIGHT EAR ×3 (13:30→21:19)
[2024-09-19] MEDS: [UNRECOGNIZED DRUG - OTHER] RIGHT EAR ×3 (13:30→21:19)
[2024-09-19] MEDS: NEOMYCIN RIGHT EAR ×3 (13:30→21:19)
--- NOTE | 2024-09-19 13:51 | PC.NURSE ---
Report given to CHIKA Woodward. Patient transferred to room 340.
[2024-09-19] MEDS: ONDANSETRON INJ 4 MG/2 ML VIAL IV PUSH (17:30)
[2024-09-20] VITALS (20 sets, daily range): BP systolic 85–121; BP diastolic 52–90; PULSE 75–113; RESP 16–24; TEMP 36.8–36.9; O2SAT 92–99
[2024-09-20] MEDS: IPRATROPIUM 0.5 MG/ALBUTEROL SULFATE 2.5 MG AMPUL.NEB 3 ML INHALATION ×4 (01:55→20:07)
[2024-09-20 07:01] LABS: Hematocrit 42.6 % (42.0-52.0); Hemoglobin 13.1 g/dL (14.0-18.0); Immature Granulocyte Percent A 0.6 % (0-0.5); Lymphocytes Absolute Auto 2.17 K/mm3 (0.9-3.2); Mean Corpuscular HGB Conc 30.8 g/dl (32-36); Mean Corpuscular Hemoglobin 30.9 pg (26-34); Mean Corpuscular Volume 100.5 fl (80-100); Nucleated Red Blood Cells Absolute Auto 0.020 K/mm3 (0.0-0.012); Nucleated Red Blood Cells Perc 0.1 % (0.0-0.2); Platelet Count Result 496 k/mm3 (150-375); Red Blood Count 4.24 M/mm3 (4.6-6.20); White Blood Count 17.6 K/mm3 (4.5-10.0)
[2024-09-20 07:24] LABS: Alanine Aminotransferase 21 U/L (6-50); Albumin Level 3.6 g/dL (3.5-5.1); Alkaline Phosphatase 122 U/L (38-126); Anion Gap 11 mmol/L (4-12); Aspartate Amino Transferase 24 U/L (17-59); Bilirubin,Total 0.5 mg/dL (0.2-1.3); Blood Urea Nitrogen 48 mg/dL (9-20); Calcium 8.8 mg/dL (8.4-10.2); Carbon Dioxide 30 mmol/L (22-30); Chloride 94 mmol/L (98-107); Estimated CRCL calculation 8 ml/min; Estimated Glomerular Filt Rate 5; Glucose 158 mg/dL (65-110); Magnesium 1.8 mg/dL (1.6-2.3); Potassium 3.7 mmol/L (3.4-5.0); Sodium 135 mmol/L (137-145); Total Protein 6.7 g/dL (6.3-8.2)
[2024-09-20] MEDS: CINACALCET 30 MG TABLET 90 MG PO (09:07)
[2024-09-20] MEDS: PANTOPRAZOLE 40 MG TABLET PO (09:08)
[2024-09-20] MEDS: GABAPENTIN 100 MG CAPSULE PO ×3 (09:08→17:41)
[2024-09-20] MEDS: NORTRIPTYLINE HCL 25 MG CAPSULE 50 MG PO (09:08)
[2024-09-20] MEDS: EMPAGLIFLOZIN 10 MG TABLET BY MOUTH (09:09)
[2024-09-20] MEDS: ESCITALOPRAM OXALATE 10 MG TABLET PO (09:09)
[2024-09-20] MEDS: MULTIVITAMINS THERAPEUTIC TAB (*BKC) 1 TABLET PO (09:09)
[2024-09-20] MEDS: CALCIUM ACETATE 667 MG TABLET 2668 MG PO ×3 (09:09→17:42)
[2024-09-20] MEDS: NEOMYCIN RIGHT EAR ×4 (09:18→22:41)
[2024-09-20] MEDS: [UNRECOGNIZED DRUG - OTHER] RIGHT EAR ×4 (09:18→22:41)
[2024-09-20] MEDS: POLYMYX RIGHT EAR ×4 (09:18→22:41)
[2024-09-20] MEDS: TORSEMIDE 20 MG TABLET 100 MG PO (09:37)
[2024-09-20] MEDS: SACUBITRIL/VALSARTAN 49-51 MG TABLET 1 TABLET PO ×2 (09:37→17:41)
--- NOTE | 2024-09-20 12:42 | P.PNNP_ITS ---
Progress Note: A&P Assessment and Plan (1) End stage renal disease: Code(s): N18.6 - End stage renal disease Status: Chronic Assessment and Plan: * continue nightly CCPD * given issues with hypotension, will back off on aggressive ultrafiltration * follow electrolytes, volume status, and clearance * CT of abdomen results noted (2) Acute hypoxic respiratory failure: Code(s): J96.01 - Acute respiratory failure with hypoxia Status: Acute Assessment and Plan: * clinically better if not resolved * presumably due to #3 * element of reactive airway disease/COPD(?) * off supplemental oxygen and BiPAP support * follow respiratory status (3) Hypotension: Code(s): I95.9 - Hypotension, unspecified Status: Acute Assessment and Plan: * as noted by recent reading * possible due to aggressive ultrafiltration with PD since admission * adjusting PD Rx/therapy to minimize fluid removal * may need to back off on Entresto as well... * follow trend of hemodynamics (4) Fluid overload: Qualifiers: Hypervolemia type: unspecified Qualified Code(s): E87.70 - Fluid overload, unspecified Code(s): E87.70 - Fluid overload, unspecified Status: Acute Assessment and Plan: * improved if not resolved * as noted on admission * pulmonary edema on admission CXR * noted LE and UE swelling/edema * though to be secondary to inability to get PD treatments at home (machine/cycler issue) * last Echo (July 2024) noted: * left ventricular systolic function is normal, estimated at 55-60% * left ventricular diastolic function is abnormal * mitral valve has a moderately calcified annulus * mild mitral valve regurgitation * mild pulmonary hypertension, estimated pulmonary arterial systolic pressure is 45 mmHg * trace pulmonic regurgitation * will minimize fluid removal given issues with hypotension now * follow volume status (5) Hyponatremia: Code(s): E87.1 - Hypo-osmolality and hyponatremia Status: Acute Assessment and Plan: * slow/steady improvement noted * noted on admission * slow improvement with fluid restriction and ultrafiltration * suspect low sodium due to hypervolemia/fluid overload and water intake as well as ESRD * follow trend of sodium (6) Anemia: Code(s): D64.9 - Anemia, unspecified Status: Acute Assessment and Plan: * hemoglobin supratherapeutic * partly due to hemoconcentration effect from aggressive ultrafiltration * Epogen on hold * follow trend of H/H (7) Peripheral neuropathy: Code(s): G62.9 - Polyneuropathy, unspecified Status: Chronic Assessment and Plan: * known diagnosis * follows with Neurology as an outpatient Will continue to follow. L Subjective Date/time seen: 09/20/24 12:42 Interval history: Follow-up for end stage renal disease on peritoneal dialysis. Tolerated peritoneal dialysis treatment overnight without any issue or problems (CCPD supervised and seen at 12:30PM); unfortunately, now he is having issues with relative hypotension (orthostatic vitals noted as well) in association with intermittent nausea and vomiting which has resulted in diminished oral intake; no other acute complaints voiced. Exam 2 Narrative: General: WD/WN male in NAD Heart: normal S1 and S2; no rub Lungs: clear anteriorly; decreased at bases Abdomen: soft, nontender, nondistended, positive bowel sounds Extremities: no cyanosis or clubbing; trace edema Skin: no rash Objective Data Vital Signs Vital Signs: Vital Signs Temp Pulse Resp BP Pulse Ox O2 Del Method 09/20/24 12:39 113 H 95/53 L (standing) 99 09/20/24 12:35 104 H 85/66 L (sitting) 99 09/20/24 12:32 99 107/73 (lying) 98 09/20/24 12:25 89/58 L 09/20/24 09:45 102 H 24 H 09/20/24 09:32 95 20 09/20/24 09:32 95 20 96 Room Air 09/20/24 09:24 Room Air 09/20/24 09:16 95/66 L 09/20/24 09:15 91/63 L 09/20/24 08:09 98.4 F 75 18 103/52 L 09/20/24 06:45 98.4 F 100 16 94/90 L 95 09/20/24 02:11 75 18 09/20/24 01:56 76 18 09/19/24 22:00 98.4 F 91 18 103/52 L 98 09/19/24 21:05 79 20 09/19/24 20:55 95 Room Air 09/19/24 20:55 80 20 09/19/24 20:00 Room Air 09/19/24 18:21 96/71 L Intake/Output Intake/Output: Intake & Output 09/17/24 09/18/24 09/19/24 09/20/24 23:59 23:59 23:59 23:59 Intake Total 20 9041.6 1330 1130 Output Total 6582 5954 411 4041 Balance -4638 6935.6 -2522 -8467 Meds/Results Medications: Active Medications Generic Name Dose Route Start Last Admin Trade Name Freq PRN Reason Stop Dose Admin Hydrocodone Bitart/Acetaminophen 1 tab 09/15/24 10:46 09/17/24 09:58 Hydrocodone/Acetaminophen (*Crx) 5-325 Mg Tablet PO 1 tab Q8H PRN Administration Pain Rated 4-10 Albuterol 2 puff 09/14/24 22:49 09/16/24 16:47 Albuterol Sulfate (*Sp) Aerosol 1 Puff INHALATION 2 puff QID PRN Administration shortness of breath or wheezing Albuterol/Ipratropium 3 ml 09/17/24 20:00 09/20/24 14:45 Ipratropium 0.5 Mg/Albuterol Sulfate 2.5 Mg Ampul.Neb 3 Ml INHALATION 3 ml Q6HRT CARIDAD Administration Buspirone HCl 10 mg 09/15/24 13:00 09/20/24 12:21 Buspirone Hcl 10 Mg Tablet BY MOUTH 10 mg TID CARIDAD Administration Calcium Acetate 2,668 mg 09/15/24 12:00 09/20/24 12:21 Calcium Acetate 667 Mg Tablet PO 2,668 mg TIDWM CARIDAD Administration Calcium Carbonate 200 mg 09/15/24 10:46 Calcium Carbonate (Tums) 500 Mg (200 Mg Elemental) PO HS PRN Indigestion Carvedilol 12.5 mg 09/20/24 21:00 Carvedilol 12.5 Mg Tablet PO Q12H CARIDAD Cinacalcet 90 mg 09/16/24 09:00 09/20/24 09:07 Cinacalcet 30 Mg Tablet PO 90 mg DAILY CARIDAD Administration Diphenoxylate HCl/Atropine 1 tablet 09/15/24 10:46 Diphenoxylate/Atropine (*Crx) 2.5 Mg Tablet PO QID PRN diarrhea Empagliflozin 10 mg 09/15/24 12:10 09/20/24 09:09 Empagliflozin 10 Mg Tablet BY MOUTH 10 mg DAILY CARIDAD Administration Escitalopram Oxalate 10 mg 09/15/24 12:00 09/20/24 09:09 Escitalopram Oxalate 10 Mg Tablet PO 10 mg DAILY CARIDAD Administration Gabapentin 300 mg 09/15/24 13:00 09/17/24 09:02 Gabapentin 300 Mg Capsule BY MOUTH 300 mg TID ACRIDAD Administration Gabapentin 100 mg 09/19/24 09:00 09/20/24 12:21 Gabapentin 100 Mg Capsule PO 100 mg TID CARIDAD Administration Gentamicin Sulfate 1 applic 09/15/24 10:46 Gentamicin Sulfate 0.1% Cr 15 Gm Tube TOPICAL TID PRN DIALYSIS CATH. Melatonin 20 mg 09/15/24 21:00 09/16/24 23:07 Melatonin 5 Mg Tablet PO 20 mg HS CARIDAD Administration Multivitamins Therapeutic 1 tablet 09/16/24 09:00 09/20/24 09:09 Multivitamins Therapeutic Tab (*Bkc) PO 1 tablet DAILY CARIDAD Administration Neomycin/Polymyxin/Hydrocortisone 3 drop 09/19/24 13:00 09/20/24 12:21 Neomycin/Polymyx/Hydrocort Ot Soln 10 Ml Btl (*Bkc) RIGHT EAR 3 drop QID CARIDAD Administration Nortriptyline HCl 50 mg 09/15/24 12:00 09/20/24 09:08 Nortriptyline Hcl 25 Mg Capsule PO 50 mg DAILY CARIDAD Administration Ondansetron HCl 4 mg 09/14/24 18:46 09/19/24 17:30 Ondansetron Inj 4 Mg/2 Ml Vial IV PUSH 4 mg Q4H PRN Administration Nausea Ondansetron HCl 8 mg 09/15/24 10:46 Ondansetron Hcl Odt 4 Mg Tablet BY MOUTH Q8H PRN nausea and vomiting Pantoprazole Sodium 40 mg 09/16/24 12:15 09/20/24 09:08 Pantoprazole 40 Mg Tablet PO 40 mg QAM CARIDAD Administration Prochlorperazine Edisylate 10 mg 09/15/24 15:19 09/15/24 15:22 Prochlorperazine Edisylate 10 Mg/2 Ml Vial IV PUSH 10 mg Q6H PRN Administration Nausea And Vomiting Sacubitril/Valsartan 1 tablet 09/15/24 17:00 09/20/24 09:37 Sacubitril/Valsartan 49-51 Mg Tablet PO 1 tablet BID CARIDAD Administration Torsemide 100 mg 09/20/24 09:00 09/20/24 09:37 Torsemide 20 Mg Tablet PO 100 mg QAM CARIDAD Administration Radiology Results: ITS Impressions Chest X-Ray 09/17/24 19:29 IMPRESSION: Mild interstitial edema. Multiple pulmonary nodules which are better seen by prior CT. Head CT 09/17/24 20:09 IMPRESSION: No acute intracranial process. Right mastoid effusion and middle ear fluid, correlate for clinical findings of otomastoiditis. Abdomen/Pelvis CT 09/18/24 16:20 IMPRESSION: Peritoneal dialysis catheter coiled within simple fluid in the deep pelvis, unchanged in position from 03/28/2024. Layering sludge within the gallbladder. Atrophic bilateral kidneys, consistent with patient's history. Hepatomegaly Labs Labs: Laboratory Tests 09/20/24 06:54 09/20/24 06:54 Calcium 8.8 Phosphorus 4.7 H Magnesium 1.8 Total Bilirubin 0.5 AST 24 ALT 21 Alkaline Phosphatase 122 Total Protein 6.7 Albumin 3.6
--- NOTE | 2024-09-20 13:23 | PM.IMPN ---
Progress Note: A&P Assessment and Plan (1) End-stage renal disease on peritoneal dialysis: Code(s): N18.6 - End stage renal disease; Z99.2 - Dependence on renal dialysis Status: Acute Assessment and Plan: End-stage renal disease on peritoneal dialysis. CT abdomen pelvis without any acute issues noted. Re-attempted peritoneal catheter dialysis overnight that was unsuccessful. Plan to initiate hemodialysis but PD catheter started working and now on PD. Gen surg consulted for possible HD cath placement however this was canceled Fluid status much better. He is becoming HoTN and orthostatic probably related to aggressive dialysis Nephrology aware. Parameters placed on medications and will lower Coreg for now. Follow. Home soon (2) Acute hyponatremia: Code(s): E87.1 - Hypo-osmolality and hyponatremia Status: Acute Assessment and Plan: Sodium was down to 113. [place] related to poor dialysis treatment. This has improved slowly as his dilaysis treatments have improved. Na 135 now. Follow (3) Hypoxemia: Code(s): R09.02 - Hypoxemia Status: Acute Assessment and Plan: Patient with a metabolic acidosis that developed into a resp hypercapnic acidosis. He was treated with BiPAP and improved dialysis. ABG 7.36/47/64 on bipap. Now on room air and refusing BiPAP. Monitor. Okay to remove bipap from room (4) Anasarca: Code(s): R60.1 - Generalized edema Status: Acute Assessment and Plan: Related to above. Plan Leukoytosis - no abd pain. Could be from stress response. Follow. DVT prophylaxis SCDs Code status full code Disposition: PT OT Subjective Date/time seen: 09/20/24 13:23 Interval history: 54yo male with ESRD on PD here for shortness of breath. Assuming care. Chart reviewed. Patient denies any dizziness. No chest pain or shortness of breath. He slept well. His right ear pain is better with the drops. He does have nausea and vomiting that is intermittent and did occur this morning. His appetite is decreased. No diarrhea. No abdominal pain. Exam Narrative: AF 98.4 102 24 96% ra Lying 107/73 Sitting 85/66 Standing 95/55 Gen - NARD Chest - right base crackles o/w clear. nml RR CV - RRR S1/S2 Abd - Soft, NT/ND, Positive BS, PD cath site dressing is clean, dry and intact Ext - No pedal edema Psych - Nml mood and affect Skin - Warm and dry Objective Data Vital Signs Vital Signs: Vital Signs - 24 hr 09/19/24 14:30 09/19/24 15:30 09/19/24 15:49 Temperature 98.4 F Pulse Rate 95 77 80 Respiratory Rate 12 19 19 Blood Pressure 94/66 L Pulse Oximetry 97 Oxygen Delivery 09/19/24 18:21 09/19/24 20:00 09/19/24 20:55 Temperature Pulse Rate 80 Respiratory Rate 20 Blood Pressure 96/71 L Pulse Oximetry Oxygen Delivery Room Air 09/19/24 20:55 09/19/24 21:05 09/19/24 22:00 Temperature 98.4 F Pulse Rate 79 91 Respiratory Rate 20 18 Blood Pressure 103/52 L Pulse Oximetry 95 98 Oxygen Delivery Room Air 09/20/24 01:56 09/20/24 02:11 09/20/24 06:45 Temperature 98.4 F Pulse Rate 76 75 100 Respiratory Rate 18 18 16 Blood Pressure 94/90 L Pulse Oximetry 95 Oxygen Delivery 09/20/24 08:09 09/20/24 09:15 09/20/24 09:16 Temperature 98.4 F Pulse Rate 75 Respiratory Rate 18 Blood Pressure 103/52 L 91/63 L 95/66 L Pulse Oximetry Oxygen Delivery 09/20/24 09:24 09/20/24 09:32 09/20/24 09:32 Temperature Pulse Rate 95 95 Respiratory Rate 20 20 Blood Pressure Pulse Oximetry 96 Oxygen Delivery Room Air Room Air 09/20/24 09:45 09/20/24 12:25 Temperature Pulse Rate 102 H Respiratory Rate 24 H Blood Pressure 89/58 L Pulse Oximetry Oxygen Delivery Intake/Output Intake/Output: Intake & Output 09/17/24 09/18/24 09/19/24 09/20/24 23:59 23:59 23:59 23:59 Intake Total 20 9041.6 1330 500 Output Total 1951 3474 0974 3960 Balance -4654 6935.6 -2780 -3541 Meds/Results Medications: Active Medications Generic Name Dose Route Start Last Admin Trade Name Freq PRN Reason Stop Dose Admin Hydrocodone Bitart/Acetaminophen 1 tab 09/15/24 10:46 09/17/24 09:58 Hydrocodone/Acetaminophen (*Crx) 5-325 Mg Tablet PO 1 tab Q8H PRN Administration Pain Rated 4-10 Albuterol 2 puff 09/14/24 22:49 09/16/24 16:47 Albuterol Sulfate (*Sp) Aerosol 1 Puff INHALATION 2 puff QID PRN Administration shortness of breath or wheezing Albuterol/Ipratropium 3 ml 09/17/24 20:00 09/20/24 09:31 Ipratropium 0.5 Mg/Albuterol Sulfate 2.5 Mg Ampul.Neb 3 Ml INHALATION 3 ml Q6HRT CARIDAD Administration Buspirone HCl 10 mg 09/15/24 13:00 09/20/24 12:21 Buspirone Hcl 10 Mg Tablet BY MOUTH 10 mg TID CARIDAD Administration Calcium Acetate 2,668 mg 09/15/24 12:00 09/20/24 12:21 Calcium Acetate 667 Mg Tablet PO 2,668 mg TIDWM CARIDAD Administration Calcium Carbonate 200 mg 09/15/24 10:46 Calcium Carbonate (Tums) 500 Mg (200 Mg Elemental) PO HS PRN Indigestion Carvedilol 25 mg 09/15/24 11:35 09/19/24 21:12 Carvedilol 25 Mg Tablet PO 25 mg Q12H CARIDAD Administration Cinacalcet 90 mg 09/16/24 09:00 09/20/24 09:07 Cinacalcet 30 Mg Tablet PO 90 mg DAILY CARIDAD Administration Diphenoxylate HCl/Atropine 1 tablet 09/15/24 10:46 Diphenoxylate/Atropine (*Crx) 2.5 Mg Tablet PO QID PRN diarrhea Empagliflozin 10 mg 09/15/24 12:10 09/20/24 09:09 Empagliflozin 10 Mg Tablet BY MOUTH 10 mg DAILY CARIDAD Administration Escitalopram Oxalate 10 mg 09/15/24 12:00 09/20/24 09:09 Escitalopram Oxalate 10 Mg Tablet PO 10 mg DAILY CARIDAD Administration Gabapentin 300 mg 09/15/24 13:00 09/17/24 09:02 Gabapentin 300 Mg Capsule BY MOUTH 300 mg TID CARIDAD Administration Gabapentin 100 mg 09/19/24 09:00 09/20/24 12:21 Gabapentin 100 Mg Capsule PO 100 mg TID CARIDAD Administration Gentamicin Sulfate 1 applic 09/15/24 10:46 Gentamicin Sulfate 0.1% Cr 15 Gm Tube TOPICAL TID PRN DIALYSIS CATH. Melatonin 20 mg 09/15/24 21:00 09/16/24 23:07 Melatonin 5 Mg Tablet PO 20 mg HS CARIDAD Administration Multivitamins Therapeutic 1 tablet 09/16/24 09:00 09/20/24 09:09 Multivitamins Therapeutic Tab (*Bkc) PO 1 tablet DAILY CARIDAD Administration Neomycin/Polymyxin/Hydrocortisone 3 drop 09/19/24 13:00 09/20/24 12:21 Neomycin/Polymyx/Hydrocort Ot Soln 10 Ml Btl (*Bkc) RIGHT EAR 3 drop QID CARIDAD Administration Nortriptyline HCl 50 mg 09/15/24 12:00 09/20/24 09:08 Nortriptyline Hcl 25 Mg Capsule PO 50 mg DAILY CARIDAD Administration Ondansetron HCl 4 mg 09/14/24 18:46 09/19/24 17:30 Ondansetron Inj 4 Mg/2 Ml Vial IV PUSH 4 mg Q4H PRN Administration Nausea Ondansetron HCl 8 mg 09/15/24 10:46 Ondansetron Hcl Odt 4 Mg Tablet BY MOUTH Q8H PRN nausea and vomiting Pantoprazole Sodium 40 mg 09/16/24 12:15 09/20/24 09:08 Pantoprazole 40 Mg Tablet PO 40 mg QAM CARIDAD Administration Prochlorperazine Edisylate 10 mg 09/15/24 15:19 09/15/24 15:22 Prochlorperazine Edisylate 10 Mg/2 Ml Vial IV PUSH 10 mg Q6H PRN Administration Nausea And Vomiting Sacubitril/Valsartan 1 tablet 09/15/24 17:00 09/20/24 09:37 Sacubitril/Valsartan 49-51 Mg Tablet PO 1 tablet BID CARIDAD Administration Torsemide 100 mg 09/20/24 09:00 09/20/24 09:37 Torsemide 20 Mg Tablet PO 100 mg QAM CARIDAD Administration Radiology Results: ITS Impressions Chest X-Ray 09/17/24 19:29 IMPRESSION: Mild interstitial edema. Multiple pulmonary nodules which are better seen by prior CT. Head CT 09/17/24 20:09 IMPRESSION: No acute intracranial process. Right mastoid effusion and middle ear fluid, correlate for clinical findings of otomastoiditis. Abdomen/Pelvis CT 09/18/24 16:20 IMPRESSION: Peritoneal dialysis catheter coiled within simple fluid in the deep pelvis, unchanged in position from 03/28/2024. Layering sludge within the gallbladder. Atrophic bilateral kidneys, consistent with patient's history. Hepatomegaly Labs Labs: Laboratory Results - last 24 hr 09/19/24 09/20/24 12:14 06:54 WBC 17.6 H RBC 4.24 L Hgb 13.1 L Hct 42.6 MCV 100.5 H MCH 30.9 MCHC 30.8 L RDW 13.9 Plt Count 496 H MPV 8.5 Immature Gran % (Auto) 0.6 H Neut % (Auto) 71.7 Lymph % (Auto) 12.4 L [place] % (Auto) 11.3 H Eos % (Auto) 3.7 Baso % (Auto) 0.3 Lymph # (Auto) 2.17 [place] # (Auto) 2.0 H Eos # (Auto) 0.7 H Baso # (Auto) 0.1 Abs Immat Gran (auto) 0.10 H Absolute Neuts (auto) 12.6 H Absolute Nucleated RBC 0.020 H Nucleated RBC % 0.1 Sodium 135 L Potassium 3.7 Chloride 94 L Carbon Dioxide 30 Anion Gap 11 BUN 48 H Creatinine 11.74 H Estim Creat Clear Calc 8 Estimated GFR 5 L Glucose 158 H Calcium 8.8 Phosphorus 4.7 H Magnesium 1.8 Total Bilirubin 0.5 AST 24 ALT 21 Alkaline Phosphatase 122 Total Protein 6.7 Albumin 3.6 Nasal MRSA (PCR) Not detected
[2024-09-21] VITALS (15 sets, daily range): BP systolic 87–132; BP diastolic 57–86; PULSE 71–116; RESP 12–18; TEMP 36.5–36.9; O2SAT 90–100
[2024-09-21] MEDS: IPRATROPIUM 0.5 MG/ALBUTEROL SULFATE 2.5 MG AMPUL.NEB 3 ML INHALATION ×4 (02:39→21:30)
[2024-09-21 05:42] LABS: Hematocrit 42.5 % (42.0-52.0); Hemoglobin 13.0 g/dL (14.0-18.0); Immature Granulocyte Percent A 0.8 % (0-0.5); Lymphocytes Absolute Auto 2.20 K/mm3 (0.9-3.2); Mean Corpuscular HGB Conc 30.6 g/dl (32-36); Mean Corpuscular Hemoglobin 31.3 pg (26-34); Mean Corpuscular Volume 102.4 fl (80-100); Nucleated Red Blood Cells Absolute Auto 0.080 K/mm3 (0.0-0.012); Nucleated Red Blood Cells Perc 0.5 % (0.0-0.2); Platelet Count Result 471 k/mm3 (150-375); Red Blood Count 4.15 M/mm3 (4.6-6.20); White Blood Count 16.5 K/mm3 (4.5-10.0)
[2024-09-21 05:58] LABS: Alanine Aminotransferase 25 U/L (6-50); Albumin Level 3.6 g/dL (3.5-5.1); Alkaline Phosphatase 123 U/L (38-126); Anion Gap 11 mmol/L (4-12); Aspartate Amino Transferase 30 U/L (17-59); Bilirubin,Total 0.5 mg/dL (0.2-1.3); Blood Urea Nitrogen 53 mg/dL (9-20); Calcium 8.3 mg/dL (8.4-10.2); Carbon Dioxide 25 mmol/L (22-30); Chloride 92 mmol/L (98-107); Estimated CRCL calculation 9 ml/min; Estimated Glomerular Filt Rate 5; Glucose 145 mg/dL (65-110); Magnesium 1.7 mg/dL (1.6-2.3); Potassium 3.4 mmol/L (3.4-5.0); Sodium 128 mmol/L (137-145); Total Protein 6.7 g/dL (6.3-8.2)
[2024-09-21] MEDS: CALCIUM ACETATE 667 MG TABLET 2668 MG PO ×3 (08:43→17:22)
[2024-09-21] MEDS: GABAPENTIN 100 MG CAPSULE PO ×3 (08:43→17:22)
[2024-09-21] MEDS: EMPAGLIFLOZIN 10 MG TABLET BY MOUTH (08:43)
[2024-09-21] MEDS: PANTOPRAZOLE 40 MG TABLET PO (08:43)
[2024-09-21] MEDS: NORTRIPTYLINE HCL 25 MG CAPSULE 50 MG PO (08:44)
[2024-09-21] MEDS: CINACALCET 30 MG TABLET 90 MG PO (08:44)
[2024-09-21] MEDS: ESCITALOPRAM OXALATE 10 MG TABLET PO (08:44)
[2024-09-21] MEDS: MULTIVITAMINS THERAPEUTIC TAB (*BKC) 1 TABLET PO (08:44)
[2024-09-21] MEDS: POLYMYX RIGHT EAR ×4 (09:08→20:22)
[2024-09-21] MEDS: SACUBITRIL/VALSARTAN 49-51 MG TABLET 1 TABLET PO (09:08)
[2024-09-21] MEDS: [UNRECOGNIZED DRUG - OTHER] RIGHT EAR ×4 (09:08→20:22)
[2024-09-21] MEDS: NEOMYCIN RIGHT EAR ×4 (09:08→20:22)
--- NOTE | 2024-09-21 10:40 | PCNWS ---
Weekly nutritional screen. Patient is tolerating current diet, oral intake is improving. No weight loss reported. No nutritional needs at this time.
--- NOTE | 2024-09-21 12:58 | P.PNIM_ITS ---
Progress Note: A&P Assessment and Plan (1) End-stage renal disease on peritoneal dialysis: Code(s): N18.6 - End stage renal disease; Z99.2 - Dependence on renal dialysis Status: Acute Assessment and Plan: End-stage renal disease on peritoneal dialysis. CT abdomen pelvis without any acute issues noted. Re-attempted peritoneal catheter dialysis that was unsuccessful. Plan to initiate hemodialysis but PD catheter started working and now on PD. Gen surg consulted for possible HD cath placement however this was canceled Fluid status much better. He became hypotensive and orthostatic probably related to aggressive dialysis Nephrology aware and dialysis was adjusted. Parameters placed on anti-HTN medications and Coreg dose was lowered. Still orthostatic but better so will continue to monitor for now. Follow. Home tomorrow once his new dialysis unit arrives. (2) Acute hyponatremia: Code(s): E87.1 - Hypo-osmolality and hyponatremia Status: Acute Assessment and Plan: Sodium was down to 113. [place] related to fluid overload from poor dialysis deni atment. This has improved slowly as his dialysis treatments have improved. Follow (3) Hypoxemia: Code(s): R09.02 - Hypoxemia Status: Acute Assessment and Plan: Patient with a metabolic acidosis that developed into a resp hypercapnic acidosis. He was treated with BiPAP and improved dialysis. ABG 7.36/47/64 on bipap. Now on room air and refusing BiPAP. Remains on room air. Monitor. (4) Anasarca: Code(s): R60.1 - Generalized edema Status: Acute Assessment and Plan: Related to above. Plan Leukocytosis - no abd pain. Could be from stress response. WBC trending down without abx. Follow. DVT prophylaxis SCDs Code status full code Disposition: PT OT Subjective Date/time seen: 09/21/24 12:58 Interval history: 54yo male with ESRD on PD here for shortness of breath. No problems overnight. Slept well. No chest pain or shortness of breath. Still having right ear pain but better. Has decreased hearing in the right ear that does improve when he tries to ?pop? his ears. Exam Narrative: AF 98.4 102 24 96% ra Lying 132/86 Sitting 107/61 Standing 87/57 (mean 67) Gen - NARD HEENT -bilateral ear canals are clear without erythema. Bilateral TM are pearly. Right TM is contracted. No evidence of otitis media Chest -few bibasilar inspiratory crackles otherwise clear. CV - RRR S1/S2 Abd - Soft, NT/ND, Positive BS, PD cath site dressing is clean, dry and intact Ext - No pedal edema Psych - Nml mood and affect Skin - Warm and dry Objective Data Vital Signs Vital Signs: Vital Signs - 24 hr 09/20/24 14:00 09/20/24 14:47 09/20/24 14:54 Temperature 98.3 F Pulse Rate 101 H 98 102 H Respiratory Rate 22 H 20 18 Blood Pressure 94/56 L Pulse Oximetry 98 Oxygen Delivery 09/20/24 17:40 09/20/24 20:00 09/20/24 20:08 Temperature Pulse Rate Respiratory Rate Blood Pressure 104/66 Pulse Oximetry 92 Oxygen Delivery Room Air Room Air 09/20/24 20:09 09/20/24 20:18 09/20/24 22:06 Temperature 98.5 F Pulse Rate 96 98 95 Respiratory Rate 18 18 18 Blood Pressure 121/63 Pulse Oximetry 96 Oxygen Delivery 09/21/24 02:39 09/21/24 02:48 09/21/24 06:00 Temperature 97.7 F Pulse Rate 94 95 95 Respiratory Rate 18 18 18 Blood Pressure 100/72 Pulse Oximetry 98 Oxygen Delivery 09/21/24 08:32 09/21/24 08:43 09/21/24 09:00 Temperature 97.7 F Pulse Rate 95 96 Respiratory Rate 18 18 Blood Pressure 100/72 Pulse Oximetry Oxygen Delivery Room Air 09/21/24 09:08 09/21/24 09:20 09/21/24 09:27 Temperature Pulse Rate 110 H 101 H 108 H Respiratory Rate Blood Pressure 132/86 107/61 Pulse Oximetry 98 100 Oxygen Delivery 09/21/24 09:28 Temperature Pulse Rate 116 H Respiratory Rate Blood Pressure 87/57 L Pulse Oximetry 96 Oxygen Delivery Intake/Output Intake/Output: Intake & Output 09/18/24 09/19/24 09/20/24 09/21/24 23:59 23:59 23:59 23:59 Intake Total 9041.6 1330 1370 600 Output Total 2106 5073 4041 21 Balance 6935.6 -2784 -2671 579 Meds/Results Medications: Active Medications Generic Name Dose Route Start Last Admin Trade Name Freq PRN Reason Stop Dose Admin Hydrocodone Bitart/Acetaminophen 1 tab 09/15/24 10:46 09/17/24 09:58 Hydrocodone/Acetaminophen (*Crx) 5-325 Mg Tablet PO 1 tab Q8H PRN Administration Pain Rated 4-10 Albuterol 2 puff 09/14/24 22:49 09/16/24 16:47 Albuterol Sulfate (*Sp) Aerosol 1 Puff INHALATION 2 puff QID PRN Administration shortness of breath or wheezing Albuterol/Ipratropium 3 ml 09/17/24 20:00 09/21/24 12:05 Ipratropium 0.5 Mg/Albuterol Sulfate 2.5 Mg Ampul.Neb 3 Ml INHALATION 3 ml Q6HRT CARIDAD Administration Buspirone HCl 10 mg 09/15/24 13:00 09/21/24 12:57 Buspirone Hcl 10 Mg Tablet BY MOUTH 10 mg TID CARIDAD Administration Calcium Acetate 2,668 mg 09/15/24 12:00 09/21/24 12:56 Calcium Acetate 667 Mg Tablet PO 2,668 mg TIDWM CARIDAD Administration Calcium Carbonate 200 mg 09/15/24 10:46 Calcium Carbonate (Tums) 500 Mg (200 Mg Elemental) PO HS PRN Indigestion Carvedilol 12.5 mg 09/20/24 21:00 09/21/24 09:08 Carvedilol 12.5 Mg Tablet PO 12.5 mg Q12H CARIDAD Administration Cinacalcet 90 mg 09/16/24 09:00 09/21/24 08:44 Cinacalcet 30 Mg Tablet PO 90 mg DAILY CARIDAD Administration Diphenoxylate HCl/Atropine 1 tablet 09/15/24 10:46 Diphenoxylate/Atropine (*Crx) 2.5 Mg Tablet PO QID PRN diarrhea Empagliflozin 10 mg 09/15/24 12:10 09/21/24 08:43 Empagliflozin 10 Mg Tablet BY MOUTH 10 mg DAILY CARIDAD Administration Escitalopram Oxalate 10 mg 09/15/24 12:00 09/21/24 08:44 Escitalopram Oxalate 10 Mg Tablet PO 10 mg DAILY CARIDAD Administration Gabapentin 300 mg 09/15/24 13:00 09/17/24 09:02 Gabapentin 300 Mg Capsule BY MOUTH 300 mg TID CARIDAD Administration Gabapentin 100 mg 09/19/24 09:00 09/21/24 12:56 Gabapentin 100 Mg Capsule PO 100 mg TID CARIDAD Administration Gentamicin Sulfate 1 applic 09/15/24 10:46 Gentamicin Sulfate 0.1% Cr 15 Gm Tube TOPICAL TID PRN DIALYSIS CATH. Melatonin 20 mg 09/15/24 21:00 09/16/24 23:07 Melatonin 5 Mg Tablet PO 20 mg HS CARIDAD Administration Multivitamins Therapeutic 1 tablet 09/16/24 09:00 09/21/24 08:44 Multivitamins Therapeutic Tab (*Bkc) PO 1 tablet DAILY CARIDAD Administration Neomycin/Polymyxin/Hydrocortisone 3 drop 09/19/24 13:00 09/21/24 12:57 Neomycin/Polymyx/Hydrocort Ot Soln 10 Ml Btl (*Bkc) RIGHT EAR 3 drop QID CARIDAD Administration Nortriptyline HCl 50 mg 09/15/24 12:00 09/21/24 08:44 Nortriptyline Hcl 25 Mg Capsule PO 50 mg DAILY CARIDAD Administration Ondansetron HCl 4 mg 09/14/24 18:46 09/19/24 17:30 Ondansetron Inj 4 Mg/2 Ml Vial IV PUSH 4 mg Q4H PRN Administration Nausea Ondansetron HCl 8 mg 09/15/24 10:46 Ondansetron Hcl Odt 4 Mg Tablet BY MOUTH Q8H PRN nausea and vomiting Pantoprazole Sodium 40 mg 09/16/24 12:15 09/21/24 08:43 Pantoprazole 40 Mg Tablet PO 40 mg QAM CARIDAD Administration Prochlorperazine Edisylate 10 mg 09/15/24 15:19 09/15/24 15:22 Prochlorperazine Edisylate 10 Mg/2 Ml Vial IV PUSH 10 mg Q6H PRN Administration Nausea And Vomiting Sacubitril/Valsartan 1 tablet 09/15/24 17:00 09/21/24 09:08 Sacubitril/Valsartan 49-51 Mg Tablet PO 1 tablet BID CARIDAD Administration Torsemide 100 mg 09/20/24 09:00 09/20/24 09:37 Torsemide 20 Mg Tablet PO 100 mg QAM CARIDAD Administration Radiology Results: ITS Impressions Chest X-Ray 09/17/24 19:29 IMPRESSION: Mild interstitial edema. Multiple pulmonary nodules which are better seen by prior CT. Head CT 09/17/24 20:09 IMPRESSION: No acute intracranial process. Right mastoid effusion and middle ear fluid, correlate for clinical findings of otomastoiditis. Abdomen/Pelvis CT 09/18/24 16:20 IMPRESSION: Peritoneal dialysis catheter coiled within simple fluid in the deep pelvis, unchanged in position from 03/28/2024. Layering sludge within the gallbladder. Atrophic bilateral kidneys, consistent with patient's history. Hepatomegaly Labs Labs: Laboratory Results - last 24 hr 09/21/24 05:35 WBC 16.5 H RBC 4.15 L Hgb 13.0 L Hct 42.5 MCV 102.4 H MCH 31.3 MCHC 30.6 L RDW 13.6 Plt Count 471 H MPV 8.6 Immature Gran % (Auto) 0.8 H Neut % (Auto) 68.8 Lymph % (Auto) 13.3 L [place] % (Auto) 11.1 H Eos % (Auto) 5.6 H Baso % (Auto) 0.4 Lymph # (Auto) 2.20 [place] # (Auto) 1.8 H Eos # (Auto) 0.9 H Baso # (Auto) 0.1 Abs Immat Gran (auto) 0.13 H Absolute Neuts (auto) 11.4 H Absolute Nucleated RBC 0.080 H Nucleated RBC % 0.5 H Sodium 128 L Potassium 3.4 Chloride 92 L Carbon Dioxide 25 Anion Gap 11 BUN 53 H Creatinine 11.20 H Estim Creat Clear Calc 9 Estimated GFR 5 L Glucose 145 H Calcium 8.3 L Phosphorus 5.1 H Magnesium 1.7 Total Bilirubin 0.5 AST 30 ALT 25 Alkaline Phosphatase 123 Total Protein 6.7 Albumin 3.6
--- NOTE | 2024-09-21 14:05 | P.PNNP_ITS ---
Progress Note: A&P Assessment and Plan (1) End stage renal disease: Code(s): N18.6 - End stage renal disease Status: Chronic Assessment and Plan: * continue nightly CCPD * given issues with orthostatic hypotension, PD Rx adjusted to minimize ultrafiltration * follow electrolytes, volume status, and clearance * CT of abdomen results noted (2) Acute hypoxic respiratory failure: Code(s): J96.01 - Acute respiratory failure with hypoxia Status: Acute Assessment and Plan: * clinically better if not resolved * presumably due to #3 * element of reactive airway disease/COPD(?) * off supplemental oxygen and BiPAP support * follow respiratory status (3) Hypotension: Code(s): I95.9 - Hypotension, unspecified Status: Acute Assessment and Plan: * as noted by recent readings * possible due to aggressive ultrafiltration with PD since admission * adjusting PD Rx/therapy to minimize fluid removal * may need to back off on Entresto as well... * follow trend of hemodynamics (4) Fluid overload: Qualifiers: Hypervolemia type: unspecified Qualified Code(s): E87.70 - Fluid overload, unspecified Code(s): E87.70 - Fluid overload, unspecified Status: Acute Assessment and Plan: * improved if not resolved * as noted on admission * pulmonary edema on admission CXR * noted LE and UE swelling/edema * though to be secondary to inability to get PD treatments at home (machine/cycler issue) * last Echo (July 2024) noted: * left ventricular systolic function is normal, estimated at 55-60% * left ventricular diastolic function is abnormal * mitral valve has a moderately calcified annulus * mild mitral valve regurgitation * mild pulmonary hypertension, estimated pulmonary arterial systolic pressure is 45 mmHg * trace pulmonic regurgitation * will minimize fluid removal with PD given issues with hypotension * follow volume status (5) Hyponatremia: Code(s): E87.1 - Hypo-osmolality and hyponatremia Status: Acute Assessment and Plan: * relatively stable (but fluctuates at baseline) * noted on admission * slow improvement with fluid restriction and ultrafiltration * suspect low sodium due to hypervolemia/fluid overload and water intake as well as ESRD * follow trend of sodium (6) Anemia: Code(s): D64.9 - Anemia, unspecified Status: Acute Assessment and Plan: * hemoglobin supratherapeutic * partly due to hemoconcentration effect from aggressive ultrafiltration * Epogen on hold * follow trend of H/H (7) Peripheral neuropathy: Code(s): G62.9 - Polyneuropathy, unspecified Status: Chronic Assessment and Plan: * known diagnosis * follows with Neurology as an outpatient Will continue to follow. L Subjective Date/time seen: 09/21/24 14:05 Interval history: Follow-up for end stage renal disease on peritoneal dialysis. Tolerated peritoneal dialysis treatment last night without any issues or problem with minimal fluid removal; still having some issues with right ear discomfort but better in general; no apparent distress noted at the time of my visit; no other acute complaints voiced. Exam 2 Narrative: General: WD/WN male in NAD Heart: normal S1 and S2; no rub Lungs: clear anteriorly; decreased at bases Abdomen: soft, nontender, nondistended, positive bowel sounds Extremities: no cyanosis or clubbing; trace edema Skin: warm and dry Objective Data Vital Signs Vital Signs: Vital Signs Temp Pulse Resp BP Pulse Ox O2 Del Method 09/21/24 14:00 98.4 F 100 12 92/70 L 98 09/21/24 09:28 116 H 87/57 L 96 09/21/24 09:27 108 H 107/61 100 09/21/24 09:20 101 H 132/86 98 09/21/24 09:08 110 H 09/21/24 09:00 96 18 09/21/24 08:43 Room Air 09/21/24 08:32 97.7 F 95 18 100/72 09/21/24 06:00 97.7 F 95 18 100/72 98 09/21/24 02:48 95 18 09/21/24 02:39 94 18 09/20/24 22:06 98.5 F 95 18 121/63 96 09/20/24 20:18 98 18 09/20/24 20:09 96 18 09/20/24 20:08 92 Room Air 09/20/24 20:00 Room Air 09/20/24 17:40 104/66 Intake/Output Intake/Output: Intake & Output 09/18/24 09/19/24 09/20/24 09/21/24 23:59 23:59 23:59 23:59 Intake Total 9041.6 1330 1370 600 Output Total 2106 4114 4041 21 Balance 6935.6 -2784 -0711 579 Meds/Results Medications: Active Medications Generic Name Dose Route Start Last Admin Trade Name Freq PRN Reason Stop Dose Admin Hydrocodone Bitart/Acetaminophen 1 tab 09/15/24 10:46 09/17/24 09:58 Hydrocodone/Acetaminophen (*Crx) 5-325 Mg Tablet PO 1 tab Q8H PRN Administration Pain Rated 4-10 Albuterol 2 puff 09/14/24 22:49 09/16/24 16:47 Albuterol Sulfate (*Sp) Aerosol 1 Puff INHALATION 2 puff QID PRN Administration shortness of breath or wheezing Albuterol/Ipratropium 3 ml 09/17/24 20:00 09/21/24 14:37 Ipratropium 0.5 Mg/Albuterol Sulfate 2.5 Mg Ampul.Neb 3 Ml INHALATION 3 ml Q6HRT CARIDAD Administration Buspirone HCl 10 mg 09/15/24 13:00 09/21/24 12:57 Buspirone Hcl 10 Mg Tablet BY MOUTH 10 mg TID CARIDAD Administration Calcium Acetate 2,668 mg 09/15/24 12:00 09/21/24 12:56 Calcium Acetate 667 Mg Tablet PO 2,668 mg TIDWM CARIDAD Administration Calcium Carbonate 200 mg 09/15/24 10:46 Calcium Carbonate (Tums) 500 Mg (200 Mg Elemental) PO HS PRN Indigestion Carvedilol 12.5 mg 09/20/24 21:00 09/21/24 09:08 Carvedilol 12.5 Mg Tablet PO 12.5 mg Q12H CARIDAD Administration Cinacalcet 90 mg 09/16/24 09:00 09/21/24 08:44 Cinacalcet 30 Mg Tablet PO 90 mg DAILY CARIDAD Administration Diphenoxylate HCl/Atropine 1 tablet 09/15/24 10:46 Diphenoxylate/Atropine (*Crx) 2.5 Mg Tablet PO QID PRN diarrhea Empagliflozin 10 mg 09/15/24 12:10 09/21/24 08:43 Empagliflozin 10 Mg Tablet BY MOUTH 10 mg DAILY CARIDAD Administration Escitalopram Oxalate 10 mg 09/15/24 12:00 09/21/24 08:44 Escitalopram Oxalate 10 Mg Tablet PO 10 mg DAILY CARIDAD Administration Gabapentin 300 mg 09/15/24 13:00 09/17/24 09:02 Gabapentin 300 Mg Capsule BY MOUTH 300 mg TID CARIDAD Administration Gabapentin 100 mg 09/19/24 09:00 09/21/24 12:56 Gabapentin 100 Mg Capsule PO 100 mg TID CARIDAD Administration Gentamicin Sulfate 1 applic 09/15/24 10:46 Gentamicin Sulfate 0.1% Cr 15 Gm Tube TOPICAL TID PRN DIALYSIS CATH. Melatonin 20 mg 09/15/24 21:00 09/16/24 23:07 Melatonin 5 Mg Tablet PO 20 mg HS CARIDAD Administration Multivitamins Therapeutic 1 tablet 09/16/24 09:00 09/21/24 08:44 Multivitamins Therapeutic Tab (*Bkc) PO 1 tablet DAILY CARIDAD Administration Neomycin/Polymyxin/Hydrocortisone 3 drop 09/19/24 13:00 09/21/24 12:57 Neomycin/Polymyx/Hydrocort Ot Soln 10 Ml Btl (*Bkc) RIGHT EAR 3 drop QID CARIDAD Administration Nortriptyline HCl 50 mg 09/15/24 12:00 09/21/24 08:44 Nortriptyline Hcl 25 Mg Capsule PO 50 mg DAILY CARIDAD Administration Ondansetron HCl 4 mg 09/14/24 18:46 09/19/24 17:30 Ondansetron Inj 4 Mg/2 Ml Vial IV PUSH 4 mg Q4H PRN Administration Nausea Ondansetron HCl 8 mg 09/15/24 10:46 Ondansetron Hcl Odt 4 Mg Tablet BY MOUTH Q8H PRN nausea and vomiting Pantoprazole Sodium 40 mg 09/16/24 12:15 09/21/24 08:43 Pantoprazole 40 Mg Tablet PO 40 mg QAM CARIDAD Administration Prochlorperazine Edisylate 10 mg 09/15/24 15:19 09/15/24 15:22 Prochlorperazine Edisylate 10 Mg/2 Ml Vial IV PUSH 10 mg Q6H PRN Administration Nausea And Vomiting Sacubitril/Valsartan 1 tablet 09/15/24 17:00 09/21/24 16:38 Sacubitril/Valsartan 49-51 Mg Tablet PO Not Given BID CARIDAD Torsemide 100 mg 09/20/24 09:00 09/20/24 09:37 Torsemide 20 Mg Tablet PO 100 mg QAM CARIDAD Administration Radiology Results: ITS Impressions Chest X-Ray 09/17/24 19:29 IMPRESSION: Mild interstitial edema. Multiple pulmonary nodules which are better seen by prior CT. Head CT 09/17/24 20:09 IMPRESSION: No acute intracranial process. Right mastoid effusion and middle ear fluid, correlate for clinical findings of otomastoiditis. Abdomen/Pelvis CT 09/18/24 16:20 IMPRESSION: Peritoneal dialysis catheter coiled within simple fluid in the deep pelvis, unchanged in position from 03/28/2024. Layering sludge within the gallbladder. Atrophic bilateral kidneys, consistent with patient's history. Hepatomegaly Labs Labs: Laboratory Tests 09/21/24 05:35 09/21/24 05:35 Calcium 8.3 L Phosphorus 5.1 H Magnesium 1.7 Total Bilirubin 0.5 AST 30 ALT 25 Alkaline Phosphatase 123 Total Protein 6.7 Albumin 3.6
[2024-09-21] MEDS: HYDROcodone/acetaminophen (*CRX) 5-325 MG TABLET 1 TAB PO (18:19)
[2024-09-22] MEDS: IPRATROPIUM 0.5 MG/ALBUTEROL SULFATE 2.5 MG AMPUL.NEB 3 ML INHALATION ×2 (02:06→07:55)
[2024-09-22 02:08] VITALS: PULSE 62; RESP 16
[2024-09-22 02:12] VITALS: PULSE 68; RESP 16
[2024-09-22 05:55] LABS: Hematocrit 41.5 % (42.0-52.0); Hemoglobin 12.9 g/dL (14.0-18.0); Immature Granulocyte Percent A 0.5 % (0-0.5); Lymphocytes Absolute Auto 2.46 K/mm3 (0.9-3.2); Mean Corpuscular HGB Conc 31.1 g/dl (32-36); Mean Corpuscular Hemoglobin 31.1 pg (26-34); Mean Corpuscular Volume 100.0 fl (80-100); Nucleated Red Blood Cells Absolute Auto 0.000 K/mm3 (0.0-0.012); Nucleated Red Blood Cells Perc 0.0 % (0.0-0.2); Platelet Count Result 451 k/mm3 (150-375); Red Blood Count 4.15 M/mm3 (4.6-6.20); White Blood Count 14.3 K/mm3 (4.5-10.0)
[2024-09-22 05:58] VITALS: BP 127/80; PULSE 93; RESP 16; TEMP 36.6; O2SAT 96
[2024-09-22 06:19] LABS: Alanine Aminotransferase 28 U/L (6-50); Albumin Level 3.3 g/dL (3.5-5.1); Alkaline Phosphatase 132 U/L (38-126); Anion Gap 14 mmol/L (4-12); Aspartate Amino Transferase 31 U/L (17-59); Bilirubin,Total 0.4 mg/dL (0.2-1.3); Blood Urea Nitrogen 69 mg/dL (9-20); Calcium 8.2 mg/dL (8.4-10.2); Carbon Dioxide 24 mmol/L (22-30); Chloride 94 mmol/L (98-107); Estimated CRCL calculation 8 ml/min; Estimated Glomerular Filt Rate 4; Glucose 105 mg/dL (65-110); Magnesium 1.6 mg/dL (1.6-2.3); Potassium 3.7 mmol/L (3.4-5.0); Sodium 132 mmol/L (137-145); Total Protein 6.0 g/dL (6.3-8.2)
[2024-09-22 07:56] VITALS: PULSE 96; RESP 16
[2024-09-22 08:01] VITALS: PULSE 92; RESP 18
--- NOTE | 2024-09-22 09:10 | P.PNNP_ITS ---
Progress Note: A&P Assessment and Plan (1) End stage renal disease: Code(s): N18.6 - End stage renal disease Status: Chronic Assessment and Plan: * continue nightly CCPD * adjust PD Rx as needed * follow electrolytes, volume status, and clearance (2) Acute hypoxic respiratory failure: Code(s): J96.01 - Acute respiratory failure with hypoxia Status: Acute Assessment and Plan: * clinically better if not resolved * presumably due to #3 * element of reactive airway disease/COPD(?) * off supplemental oxygen and BiPAP support * follow respiratory status (3) Hypotension: Code(s): I95.9 - Hypotension, unspecified Status: Acute Assessment and Plan: * improvement noted * possibly secondary due to aggressive ultrafiltration with PD since admission * adjusting PD Rx/therapy to minimize fluid removal * follow trend of hemodynamics (4) Fluid overload: Qualifiers: Hypervolemia type: unspecified Qualified Code(s): E87.70 - Fluid overload, unspecified Code(s): E87.70 - Fluid overload, unspecified Status: Acute Assessment and Plan: * improved if not resolved * as noted on admission * pulmonary edema on admission CXR * noted LE and UE swelling/edema * though to be secondary to inability to get PD treatments at home (machine/cycler issue) * last Echo (July 2024) noted: * left ventricular systolic function is normal, estimated at 55-60% * left ventricular diastolic function is abnormal * mitral valve has a moderately calcified annulus * mild mitral valve regurgitation * mild pulmonary hypertension, estimated pulmonary arterial systolic pressure is 45 mmHg * trace pulmonic regurgitation * follow volume status (5) Hyponatremia: Code(s): E87.1 - Hypo-osmolality and hyponatremia Status: Acute Assessment and Plan: * relatively stable (but fluctuates at baseline) * noted on admission * slow improvement with fluid restriction and ultrafiltration * suspect low sodium due to hypervolemia/fluid overload and water intake as well as ESRD * follow trend of sodium (6) Anemia: Code(s): D64.9 - Anemia, unspecified Status: Acute Assessment and Plan: * hemoglobin supratherapeutic * partly due to hemoconcentration effect from aggressive ultrafiltration * Epogen on hold * follow trend of H/H (7) Peripheral neuropathy: Code(s): G62.9 - Polyneuropathy, unspecified Status: Chronic Assessment and Plan: * known diagnosis * follows with Neurology as an outpatient Not opposed to discharge from renal perspective if otherwise medically stable -- he can follow-up with Dr. Marcus in PD clinic for ongoing management of his ESRD. Will continue to follow. L Subjective Date/time seen: 09/22/24 09:10 Interval history: Follow-up for end stage renal disease on peritoneal dialysis. Tolerated peritoneal dialysis treatment overnight but only had a partial treatment per HD nurse as machine was turned off for some reason (CCPD supervised and seen at 9:00am); no apparent distress voiced at the time of my visit; BP appears to be doing better as well; no other acute complaints. Exam 2 Narrative: General: WD/WN male in NAD Heart: normal S1 and S2; no rub Lungs: clear anteriorly; decreased at bases Abdomen: soft, nontender, nondistended, positive bowel sounds Extremities: no cyanosis or clubbing; trace edema Skin: warm and intact Objective Data Vital Signs Vital Signs: Vital Signs Temp Pulse Resp BP Pulse Ox O2 Del Method 09/22/24 08:01 92 18 09/22/24 07:56 96 16 09/22/24 05:58 98 F 93 16 127/80 96 09/22/24 02:12 68 16 09/22/24 02:08 62 16 09/21/24 22:09 98.2 F 89 18 104/77 96 09/21/24 21:36 75 16 09/21/24 21:30 71 16 09/21/24 21:30 90 Room Air 09/21/24 20:00 Room Air 09/21/24 14:25 94 18 09/21/24 14:15 97 18 09/21/24 14:00 98.4 F 100 12 92/70 L 98 Intake/Output Intake/Output: Intake & Output 09/19/24 09/20/24 09/21/24 09/22/24 23:59 23:59 23:59 23:59 Intake Total 1330 1370 800 170 Output Total 4114 4041 21 Balance -2844 -2917 779 170 Meds/Results Medications: Active Medications Generic Name Dose Route Start Last Admin Trade Name Freq PRN Reason Stop Dose Admin Hydrocodone Bitart/Acetaminophen 1 tab 09/15/24 10:46 09/21/24 18:19 Hydrocodone/Acetaminophen (*Crx) 5-325 Mg Tablet PO 1 tab Q8H PRN Administration Pain Rated 4-10 Albuterol 2 puff 09/14/24 22:49 09/16/24 16:47 Albuterol Sulfate (*Sp) Aerosol 1 Puff INHALATION 2 puff QID PRN Administration shortness of breath or wheezing Albuterol/Ipratropium 3 ml 09/17/24 20:00 09/22/24 07:55 Ipratropium 0.5 Mg/Albuterol Sulfate 2.5 Mg Ampul.Neb 3 Ml INHALATION 3 ml Q6HRT CARIDAD Administration Buspirone HCl 10 mg 09/15/24 13:00 09/22/24 09:35 Buspirone Hcl 10 Mg Tablet BY MOUTH 10 mg TID CARIDAD Administration Calcium Acetate 2,668 mg 09/15/24 12:00 09/22/24 09:33 Calcium Acetate 667 Mg Tablet PO 2,668 mg TIDWM CARIDAD Administration Calcium Carbonate 200 mg 09/15/24 10:46 Calcium Carbonate (Tums) 500 Mg (200 Mg Elemental) PO HS PRN Indigestion Carvedilol 12.5 mg 09/20/24 21:00 09/22/24 09:34 Carvedilol 12.5 Mg Tablet PO 12.5 mg Q12H CARIDAD Administration Cinacalcet 90 mg 09/16/24 09:00 09/22/24 09:34 Cinacalcet 30 Mg Tablet PO 90 mg DAILY CARIDAD Administration Diphenoxylate HCl/Atropine 1 tablet 09/15/24 10:46 Diphenoxylate/Atropine (*Crx) 2.5 Mg Tablet PO QID PRN diarrhea Empagliflozin 10 mg 09/15/24 12:10 09/22/24 09:33 Empagliflozin 10 Mg Tablet BY MOUTH 10 mg DAILY CARIDAD Administration Escitalopram Oxalate 10 mg 09/15/24 12:00 09/22/24 09:34 Escitalopram Oxalate 10 Mg Tablet PO 10 mg DAILY CARIDAD Administration Gabapentin 300 mg 09/15/24 13:00 09/17/24 09:02 Gabapentin 300 Mg Capsule BY MOUTH 300 mg TID CARIDAD Administration Gabapentin 100 mg 09/19/24 09:00 09/22/24 09:35 Gabapentin 100 Mg Capsule PO 100 mg TID CARIDAD Administration Gentamicin Sulfate 1 applic 09/15/24 10:46 Gentamicin Sulfate 0.1% Cr 15 Gm Tube TOPICAL TID PRN DIALYSIS CATH. Melatonin 20 mg 09/15/24 21:00 09/16/24 23:07 Melatonin 5 Mg Tablet PO 20 mg HS CARIDAD Administration Multivitamins Therapeutic 1 tablet 09/16/24 09:00 09/22/24 09:34 Multivitamins Therapeutic Tab (*Bkc) PO 1 tablet DAILY CARIDAD Administration Neomycin/Polymyxin/Hydrocortisone 3 drop 09/19/24 13:00 09/22/24 09:35 Neomycin/Polymyx/Hydrocort Ot Soln 10 Ml Btl (*Bkc) RIGHT EAR 3 drop QID CARIDAD Administration Nortriptyline HCl 50 mg 09/15/24 12:00 09/22/24 09:35 Nortriptyline Hcl 25 Mg Capsule PO 50 mg DAILY CARIDAD Administration Ondansetron HCl 4 mg 09/14/24 18:46 09/19/24 17:30 Ondansetron Inj 4 Mg/2 Ml Vial IV PUSH 4 mg Q4H PRN Administration Nausea Ondansetron HCl 8 mg 09/15/24 10:46 Ondansetron Hcl Odt 4 Mg Tablet BY MOUTH Q8H PRN nausea and vomiting Pantoprazole Sodium 40 mg 09/16/24 12:15 09/22/24 09:35 Pantoprazole 40 Mg Tablet PO 40 mg QAM CARIDAD Administration Prochlorperazine Edisylate 10 mg 09/15/24 15:19 09/15/24 15:22 Prochlorperazine Edisylate 10 Mg/2 Ml Vial IV PUSH 10 mg Q6H PRN Administration Nausea And Vomiting Sacubitril/Valsartan 1 tablet 09/15/24 17:00 09/22/24 09:35 Sacubitril/Valsartan 49-51 Mg Tablet PO 1 tablet BID CARIDAD Administration Torsemide 100 mg 09/20/24 09:00 09/20/24 09:37 Torsemide 20 Mg Tablet PO 100 mg QAM CARIDAD Administration Radiology Results: ITS Impressions Chest X-Ray 09/17/24 19:29 IMPRESSION: Mild interstitial edema. Multiple pulmonary nodules which are better seen by prior CT. Head CT 09/17/24 20:09 IMPRESSION: No acute intracranial process. Right mastoid effusion and middle ear fluid, correlate for clinical findings of otomastoiditis. Abdomen/Pelvis CT 09/18/24 16:20 IMPRESSION: Peritoneal dialysis catheter coiled within simple fluid in the deep pelvis, unchanged in position from 03/28/2024. Layering sludge within the gallbladder. Atrophic bilateral kidneys, consistent with patient's history. Hepatomegaly Labs Labs: Laboratory Tests 09/22/24 05:33 09/22/24 05:33 Calcium 8.2 L Phosphorus 6.0 H Magnesium 1.6 Total Bilirubin 0.4 AST 31 ALT 28 Alkaline Phosphatase 132 H Total Protein 6.0 L Albumin 3.3 L
[2024-09-22] MEDS: EMPAGLIFLOZIN 10 MG TABLET BY MOUTH (09:33)
[2024-09-22] MEDS: CALCIUM ACETATE 667 MG TABLET 2668 MG PO ×2 (09:33→12:26)
[2024-09-22 09:34] VITALS: PULSE 100
[2024-09-22] MEDS: MULTIVITAMINS THERAPEUTIC TAB (*BKC) 1 TABLET PO (09:34)
[2024-09-22] MEDS: CINACALCET 30 MG TABLET 90 MG PO (09:34)
[2024-09-22] MEDS: ESCITALOPRAM OXALATE 10 MG TABLET PO (09:34)
[2024-09-22] MEDS: POLYMYX RIGHT EAR ×2 (09:35→12:27)
[2024-09-22] MEDS: NEOMYCIN RIGHT EAR ×2 (09:35→12:27)
[2024-09-22] MEDS: GABAPENTIN 100 MG CAPSULE PO ×2 (09:35→12:26)
[2024-09-22] MEDS: NORTRIPTYLINE HCL 25 MG CAPSULE 50 MG PO (09:35)
[2024-09-22] MEDS: SACUBITRIL/VALSARTAN 49-51 MG TABLET 1 TABLET PO (09:35)
[2024-09-22] MEDS: PANTOPRAZOLE 40 MG TABLET PO (09:35)
[2024-09-22] MEDS: [UNRECOGNIZED DRUG - OTHER] RIGHT EAR ×2 (09:35→12:27)
--- NOTE | 2024-09-22 10:14 | PCPTNOTE ---
Attempted to see patient for Physical Therapy this AM. Patient declined to do therapy this morning due to being too tired. Patient stated that he had a rough night last night and he wanted to save his strength for going home. RN notified.
--- NOTE | 2024-09-22 10:32 | P.DS_ITS ---
DS: Admitting Diagnosis Discharge Date 09/22/24 Admitting Diagnosis Shortness of breath DS: Discharge Diagnosis Discharge Diagnosis (1) End-stage renal disease on peritoneal dialysis: Code(s): N18.6 - End stage renal disease; Z99.2 - Dependence on renal dialysis Status: Acute (2) Acute hyponatremia: Code(s): E87.1 - Hypo-osmolality and hyponatremia Status: Acute (3) Hypoxemia: Code(s): R09.02 - Hypoxemia Status: Acute (4) Anasarca: Code(s): R60.1 - Generalized edema Status: Acute DS: Summary Hospital Course Reason for hospitalization: 54yo male with ESRD on PD here for shortness of breath. Please see H&P for details. Hospital Course: Patient with ESRD on peritoneal dialysis here for SOB. CXR showing mild pulmonary edema. Patient with a metabolic acidosis that developed into a resp hypercapnic acidosis. He was treated with BiPAP and improved dialysis. ABG 7.36/47/[address] bipap. Nephrology consulted. CT abdomen pelvis without any acute issues noted but showing layering sludge in gallbladder and hepatomegaly. Re- attempted peritoneal catheter dialysis that was unsuccessful. Plan was to initiate hemodialysis but PD catheter started working and was tolerating PD. Gen surgery was consulted for possible HD cath placement however this was canceled due to now functioning PD catheter. Patient felt to have fluid overload from poorly functioning PD and he underwent aggressive dialysis. Fluid status much improved. He became hypotensive and orthostatic probably related to aggressive dialysis. Nephrology aware and dialysis was adjusted. Parameters placed on anti-HTN medications and Coreg dose was lowered. No symptoms of lightheadedness or chest pain. Patient had altered mental status on admission. CT brain showing no acute intracranial findings but with moderate sinus disease and chronic right thalamic infarct. Sodium was down to 113. [place] related to fluid overload from poor dialysis treatment. Sodium level has improved slowly as his dialysis treatments have improved. Sodium 132 today. He was weaned to room air and refusing BiPAP. Leukocytosis noted but no abdominal pain and more likely from stress response. WBC trending down without abx. He did have right ear pain treated with ear drops with improvement. Patient had clinical improvement. He is eager for discharge. Discharge instructions discussed in detail. All questions answered. Patient overall did well and was able to be discharged home on 09/22/2024. Status at Discharge Cognitive/behavioral status at discharge: stable Time Spent with Patient Time attestation: Total time spent providing and/or coordinating discharge services: 35 minutes Time spent: Greater than 30 minutes Exam Narrative: AF 98.0 127/80 100 18 96% ra Gen - NARD Chest - CTA bilaterally CV - RRR S1/S2 Abd - Soft, NT/ND, Positive BS, PD cath site dressing is clean, dry and intact Ext - No pedal edema Psych - Nml mood and affect Skin - Warm and dry DS: Data Data Completed and Pending Labs on day of discharge: Labs from last 24 hours 09/22/24 05:33 WBC 14.3 H RBC 4.15 L Hgb 12.9 L Hct 41.5 L MCV 100.0 MCH 31.1 MCHC 31.1 L RDW 13.4 Plt Count 451 H MPV 8.5 Immature Gran % (Auto) 0.5 Neut % (Auto) 65.8 Lymph % (Auto) 17.[address] [place] % (Auto) 9.5 H Eos % (Auto) 6.7 H Baso % (Auto) 0.3 Lymph # (Auto) 2.46 [place] # (Auto) 1.4 H Eos # (Auto) 1.0 H Baso # (Auto) 0.0 Abs Immat Gran (auto) 0.07 H Absolute Neuts (auto) 9.4 H Absolute Nucleated RBC 0.000 Nucleated RBC % 0.0 Sodium 132 L Potassium 3.7 Chloride 94 L Carbon Dioxide 24 Anion Gap 14 H BUN 69 H D Creatinine 12.65 H Estim Creat Clear Calc 8 Estimated GFR 4 L Glucose 105 Calcium 8.2 L Phosphorus 6.0 H Magnesium 1.6 Total Bilirubin 0.4 AST 31 ALT 28 Alkaline Phosphatase 132 H Total Protein 6.0 L Albumin 3.3 L Discharge Plan Discharge Attending physician on discharge: Baltazar Couch Consulting providers: Xavier Marcus Discharging Clinician: Baltazar Couch Anticipated Discharge Date/Time: 09/22/24 10:43 Patient Disposition: Home Activity: as tolerated Diet: renal Discharge Instructions: Check blood pressure 1 to 2 times a day. Record and bring into your doctor for review. Call your doctor if your blood pressure is greater than 180/110 or less than 95/45. Take precautions to avoid falls. Rise slowly from a lying or sitting position. Pause before standing or walking. Continue Peritoneal dialysis as instructed. Contact your doctor or call 911 and come to the Emergency Room if you have fevers, lightheadedness with standing or other worrisome symptoms. Avoid NSAIDs (ibuprofen, naproxen, Aleve). Tylenol is safe to take. Follow-up with your primary care provider in 1-2 weeks. Please call for appointment. Follow-up with Nephrology at next scheduled visit. Please call for an appointment. Thank you for using [facility] for your health care needs. Patient Instructions: Antibiotic Form, Edema (GEN) Patient Language: Occitan Stand Alone Forms: General Discharge Information Follow-up/Referrals: Xavier Marcus MD [Physician] - Call for Appointment Angella Han APRN [Primary Care Provider] - Call for Appointment Discharge Medications: New gabapentin 100 mg Capsule 100 mg PO TID Qty: 90 0RF Continued gentamicin 0.1 % cream 1 applic topical TID PRN (Reason: DIALYSIS CATH.) calcium carbonate [Tums] 200 mg calcium (500 mg) tablet,chewable 200 mg PO HS PRN (Reason: Indigestion) omeprazole 20 mg capsule,delayed release(DR/EC) 20 mg PO DAILY Qty: 90 1RF nortriptyline 50 mg capsule 50 mg PO DAILY Qty: 90 1RF multivitamin Tablet 1 tablet PO DAILY Entresto 49-51 mg tablet 1 tablet PO BID Qty: 60 5RF dapagliflozin propanediol [Farxiga] 10 mg tablet 10 mg PO DAILY Qty: 30 5RF ferric citrate [Auryxia] 210 mg iron Tablet 210 mg PO TIDWM Rx Instructions: administer with a meal albuterol sulfate 90 mcg/actuation HFA aerosol inhaler 2 inh INHALATION QID PRN (Reason: shortness of breath or wheezing) calcium acetate(phosphat bind) 667 mg capsule 2,668 mg PO TIDWM ondansetron 4 mg tablet,disintegrating 8 mg translingual Q8H PRN (Reason: nausea and vomiting) cinacalcet 30 mg tablet 90 mg PO DAILY escitalopram oxalate 10 mg tablet 10 mg PO DAILY diphenoxylate-atropine 2.5-0.025 mg tablet 1 tablet PO QID PRN (Reason: diarrhea) Qty: 60 0RF hydrocodone-acetaminophen 5-325 mg tablet 1 tablet PO Q8H PRN (Reason: Pain Rated 4-10) Qty: 90 0RF buspirone 10 mg tablet See Rx Instructions .ROUTE .COMPLEX Qty: 90 0RF Dose Instruction: TAKE 1 TABLET BY MOUTH THREE TIMES DAILY Rx Instructions: TAKE 1 TABLET BY MOUTH THREE TIMES DAILY Changed carvedilol 25 mg tablet 12.5 mg PO Q12H Qty: 60 5RF Rx Instructions: must administer with a meal/food melatonin 10 mg capsule 20 mg PO HS PRN (Reason: Insomnia) Qty: 30 0RF Held torsemide 100 mg tablet See Rx Instructions .ROUTE .COMPLEX Qty: 30 11RF Hold Instructions: HOLD - Resume when okay with your doctor Dose Instruction: TAKE 1 TABLET BY MOUTH EVERY MORNING Rx Instructions: TAKE 1 TABLET BY MOUTH EVERY MORNING Discontinued olskxteu-vcjykpntf-NO 3.5-10,000-1 mg/mL-unit/mL-% drops,suspension 4 drop RIGHT EAR Q8H 7 Days Qty: 10 0RF ciprofloxacin-dexamethasone 0.3-0.1 % drops,suspension 4 drp RIGHT EAR Q12H 7 Days Qty: 7.5 0RF gabapentin 300 mg capsule See Rx Instructions .ROUTE .COMPLEX Qty: 270 1RF Dose Instruction: TAKE 1 CAPSULE BY MOUTH THREE TIMES DAILY Rx Instructions: TAKE 1 CAPSULE BY MOUTH THREE TIMES DAILY Date of admission: 09/15/24 10:09 Primary Care Provider: Angella Han Admitting Provider: Jovita Oconnor Attending physician on admission: Jovita Oconnor Condition: Stable Hospitalist MIPS Heart Failure (Exclusion) Patient has history of Heart Transplant or Left Ventricular Assistive Device?: No IF YES, STOP HERE Heart Failure (Qualifier) Patient has current or prior documentation of LVEF less than or equal to 40%, or mod/servere depressed LVSF?: No IF NO, STOP HERE
[2024-09-22] MEDS: ONDANSETRON HCL ODT 4 MG TABLET 8 MG BY MOUTH (12:51)
== END 2024-09-22 14:52 | disposition home or self-care (01) | DRG 640 ==
LOC: ANHED 18:45 → ANHIMU 20:29 → ANH3MEDSUR 09-17 11:53 → ANHIMU 09-17 20:09 → ANH3MED 09-19 14:04
PROVIDERS: General Practice; Internal Medicine; Internal Medicine Nephrology; Physician Assistant; Admitting Provider Family Medicine; Emergency Provider Physician Assistant; PCP Nurse Practitioner Family; Visit Provider Internal Medicine
DX: E87.79 Other fluid overload (principal); J96.01 Acute respiratory failure with hypoxia; N18.6 End stage renal disease; J96.02 Acute respiratory failure with hypercapnia; I12.0 Hypertensive chronic kidney disease with stage 5 chronic kidney disease or end stage renal disease; I42.9 Cardiomyopathy, unspecified; E87.1 Hypo-osmolality and hyponatremia; E87.21 Acute metabolic acidosis; E83.51 Hypocalcemia; E87.8 Other disorders of electrolyte and fluid balance, not elsewhere classified; I95.9 Hypotension, unspecified; D72.829 Elevated white blood cell count, unspecified; E78.5 Hyperlipidemia, unspecified; G62.9 Polyneuropathy, unspecified; Z91.158 Patient's noncompliance with renal dialysis for other reason; Z99.2 Dependence on renal dialysis; Z87.891 Personal history of nicotine dependence; Z90.49 Acquired absence of other specified parts of digestive tract
CPT/HCPCS: 36415; 36600; 70450; 71045; 74176; 80048; 80053; 80069; 82375; 82805; 82948; 83050; 83605; 83735; 83880; 84100; 84145; 85018; 85025; 85027; 85610; 85730; 87340; 87641; 90945; 93005; 94002; 94640; 96365; 96366; 96375; 97161; 97165; 99285; A9270; G0378; J0780; J1644; J1938; J2405; J2919; J3373; J3475; Q5105

== ENCOUNTER 2024-09-27 12:22 | Inpatient (IN) | payer MEDICARE, MEDICAID, SELFPAY ==
--- NOTE | ~2024-09-27 | CT_ITS ---
EXAMINATION: CT IAC/mastoids BI wo con DATE: 09/30/2024 14:52 INDICATION: Right ear hearing loss. . TECHNIQUE: Computed tomography (CT) of the temporal bones was performed without intravenous contrast. The dose-length product was 400.72 mGy-cm. COMPARISON: None FINDINGS: RIGHT TEMPORAL BONE: Large right otomastoiditis effusion with opacification of all but a few of the most anterior mastoid air cells are fluid filling the posterior superior aspect of the middle ear cavity contacting the ova l window, posterior margin of the ossicular chain and also extending into Prussak's space and contact ing the posterior superior aspect of the tympanic membrane. The scutum is normal. The vestibule, coch mikala, semicircular canals, internal auditory canal, vestibular aqueduct and course of the facial nerve are normal. The external auditory canal and jugular bulb are unremarkable. LEFT TEMPORAL BONE: The external auditory canal, tympanic membrane, ossicles and scutum are normal. The mastoid air cells and middle ear cavity including Prussak's space are clear. The oval window, vestibule, cochlea, semi circular canals, internal auditory canal, vestibular aqueduct and course of the facial nerve are norm al. The jugular bulb is unremarkable. IMPRESSION: 1. Large right otomastoiditis effusion. Reviewed, dictated and finalized at location A.
--- NOTE | ~2024-09-27 | CT_ITS ---
EXAMINATION: CT chest abdomen pelvis wo con DATE: 09/27/2024 14:10 INDICATION: Hypertension. Leukocytosis. TECHNIQUE: Computed tomography (CT) of the chest, abdomen, and pelvis was performed without intraveno us contrast. Automated exposure control and iterative reconstruction technique were employed. The dos e-length product was 1743.49 mGy-cm. COMPARISON: 07/25/2024 and 09/27/2023 FINDINGS: CHEST CT: Mild dependent atelectasis in the bilateral lower lobes. No interval change since 09/27/2023 in several small pulmonary nodules with lower lung predominance the 2 largest measuring 6 mm nodules in the rig ht lower lobe. No new or enlarging pulmonary nodules, pneumonia, pulmonary edema or pleural effusion. Heart size is normal. Lipomatous hypertrophy of the atrial septum. Atherosclerotic coronary artery c alcific location. Dense mitral annular calcific lesion. No pericardial effusion. Thoracic aorta is no rmal in caliber. Again seen is mild mediastinal lymphadenopathy more notable for the number of lymph nodes rather than size. No pathologically enlarged thoracic lymphadenopathy. Mild to moderate thoraci c spondylosis. ABDOMEN/PELVIS CT: Liver, gallbladder, spleen, pancreas and left adrenal gland are normal. Unchanged 1.3 cm low-attenuat ion right adrenal adenoma. Moderate to severe bilateral renal atrophy. Bladder is decompressed but ot herwise unremarkable. No abnormal bowel wall thickening or obstruction. Small amount of scattered anai e intraperineal gas as well as small to moderate amount of ascites scattered throughout the abdomen a nd pelvis which is likely related to peritoneal dialysis with a left abdominal peritoneal dialysis ca theter with distal tip coiled in the deep pelvis. No loculated abscess. No pathologically enlarged ab dominal or pelvic lymphadenopathy. Mild lumbar spondylosis. IMPRESSION: 1. Small amount of free intraperineal gas and small to moderate amount of ascites in the abdomen and pelvis related to peritoneal dialysis with dialysis catheter coiled in the deep pelvis. No other acut e intra-abdominal/pelvic process. 2. No acute cardiopulmonary disease. 3. Moderate to severe bilateral renal atrophy. 4. No interval change in a few small pulmonary nodules the with lower lung predominance, the 2 larges t measuring 6 mm in the right lower lobe. Consider additional 1 year follow-up low-dose noncontrast c hest CT. Reviewed, dictated and finalized at location A. IMPRESSION: 1. Small amount of free intraperineal gas and small to moderate amount of ascit es in the abdomen and pelvis related to peritoneal dialysis with dialysis lynn ter coiled in the deep pelvis. No other acute intra-abdominal/pelvic process. 2. No acute cardiopulmonary disease. 3. Moderate to severe bilateral renal atrophy. 4. No interval change in a few small pulmonary nodules the with lower lung pred ominance, the 2 largest measuring 6 mm in the right lower lobe. Consider additi onal 1 year follow-up low-dose noncontrast chest CT.
--- NOTE | ~2024-09-27 | XR_ITS ---
EXAMINATION: XR chest 1V portable DATE: 09/27/2024 12:58 INDICATION: Congestive heart failure TECHNIQUE: frontal view of the chest was obtained. COMPARISON: Chest radiograph dated 09/17/2024 FINDINGS: Mild increased interstitial pattern in the bilateral mid and lower lung zones consistent with mild pu lmonary edema with some associated peribronchial cuffing. No pleural effusion or pneumothorax. Arch s ize is normal. Atherosclerotic thoracic aorta. IMPRESSION: 1. Mild pulmonary edema in the bilateral mid and lower lung zones. Reviewed, dictated and finalized at location A.
[2024-09-27 12:22] VITALS: BP 74/49; PULSE 106; RESP 20; TEMP 36.7; O2SAT 98
[2024-09-27 12:34] VITALS: BP 74/49; PULSE 103; RESP 20; TEMP 36.7; O2SAT 98
--- NOTE | 2024-09-27 12:35 | ECG_ITS ---
Test Date: 2024-09-27 12:26:46 Measurements Intervals [place] Rate: 108 P: 0 AL: 0 QRS: 13 QRSD: 102 T: 70 QT: 315 QTc: 423 Interpretive Statements SINUS OR ECTOPIC ATRIAL TACHYCARDIA INCOMPLETE LEFT BUNDLE BRANCH BLOCK LEFT VENTRICULAR HYPERTROPHY WITH ST-T CHANGE BORDERLINE R WAVE PROGRESSION, ANTERIOR LEADS CONSIDER INFERIOR INFARCT, AGE INDETERMINATE BORDERLINE ST-T WAVE ABNORMALITY- LATERAL LEADS BASELINE ARTIFACT- I, II, AVR, AVL, AVF, V1-V6 ABNORMAL ECG Compared to ECG 09/14/2024 17:38:07 HEART RATE HAS INCREASED Electronically Signed On 09-27-2024 13:14:12 CDT by Quang Johnson D.O.
--- OUTSIDE RECORDS SUMMARY | 2024-09-27 12:37 | XMS_ITS | Clinical Summary ---
Author Organization [facility] Address [address] [place] [address] Care Team Providers Care External Relations Manager Name Role Phone Angella Han CORPORATE TRUST OFFICER Primary Care Provider [phone] Allergies No known active allergies Medications albuterol [...] Active DIALYVITE VITAMIN D3 MAX 1.25 MG (14557 UT) Tab TAKE ONE TABLET BY MOUTH [...] Diagnosed Date End stage renal disease (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) from Last 3 Months Results * [...] 8:41 AM Narrative 09/14/2024 8:42 AM CDT [address] [place] [address] Procedure(s): XR ABD KUB Date of service: [...] Procedure Note Tobin Landaverde MD - 09/14/[address] [place] [address] Procedure(s): XR ABD KUB Date of service: [...] 3 Months Insurance MEDICARE MEDICAID Care Teams External Relations Manager Relationship Specialty Start Date End Date Angella Han NP [address] [place] [address] PCP - General Nurse Practitioner Family 09/13/24
--- OUTSIDE RECORDS SUMMARY | 2024-09-27 12:37 | XMS_ITS ---
Author Organization [facility] Address [address] [place] [address] Care Team Providers Care Field Service Representative Name Role Phone Janet Moss RN Unavailable [phone] Quang Johnson DO Unavailable [phone] Angella Han NP Primary Care Provider [phone] Transplant Episode Kidney Candidate [facility] ([place], [place]) [facility] Center waitlisted on 08/24/2023 Marked as Inactive on 08/24/2023 Reason: 04 - Insurance Issues Kidney CoordinatorJanet Moss RN Fax: N/A Email: N/A Scores Score Value Updated Exceptions/Reas ons CPRA Not available EPTS (Calc) 32 09/27/2024 [place] Organ 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 Care Team Name Role Phone Fax Email Janet Moss RN Kidney Coordinator [phone] N/A N/A Xavier Marcus MD Referring Physician [phone] N/A Janet Muse Mill Operator Helper [phone] N/A N/A Events Pre-Transplant Referred: 10/05/2022 Evaluation began: 02/04/2023 Committee: 08/23/2023 UNOS qualified: 11/27/2021 Center waitlisted: 08/24/2023 Dialysis History Dialysis History Start End Type Comments Center 11/27/2021 Peritoneal [facility] Dialysis [facility] Information Center Phone Fax Address [facility] [phone] [address] [facility] [address] [facility] [address]
--- OUTSIDE RECORDS SUMMARY | 2024-09-27 12:37 | XMS_ITS | Clinical Summary ---
Author Organization [facility] Address [address] [place] [address] Care Team Providers Care Film Developer Name Role Phone Janet Moss RN Unavailable [phone] Quang Johnson DO Unavailable [phone] Angella Han NP Primary Care Provider [phone] Allergies No known active allergies Medications albuterol [...] Encounters Date Type Department Care Team Description 09/18/2024 Telephone [facility] [address] [phone] [place] [address] Janet Moss RN 09/18/2024 Telephone [facility] Trans[facility] [address] [phone] [place] [address] Janet Moss RN 09/13/2024 Telephone [facility] Scheduling [address] [place] [address] Scar Carroll MD PhD Scheduling Appointments 07/27/2024 10:00 AM CDT - 07/27/2024 11:59 PM CDT Hospital Encounter [facility] [address] [place] [address] ESRD (end stage renal disease) ([facility] [place]) Discharge Disposition: Discharge to home or self [...] on file Legal Sex Male 9:46 AM VISUALIZATION DEVELOPER Gender Identity Not on file Sexual Orientation Not on file Obstetrics History Last Filed Vital Signs Vital Sign Reading Time Taken Comments Blood Pressure 163/115 04/12/2023 8:12 AM VISUALIZATION DEVELOPER Pulse 77 04/12/2023 8:12 AM VISUALIZATION DEVELOPER Temperature 36.7 C (98.1 F) 04/05/2023 1:04 PM VISUALIZATION DEVELOPER Respiratory Rate - - Oxygen Saturation - - Inhaled Oxygen Concentration - - Weight 112.5 kg (248 lb 0.3 oz) 04/12/2023 8:12 AM VISUALIZATION DEVELOPER Height 175.3 cm (5' 9) 04/05/2023 1:04 PM VISUALIZATION DEVELOPER Body Mass Index 36.63 04/05/2023 1:04 PM VISUALIZATION DEVELOPER Plan of Treatment Health Maintenance Due Date [...] HEPATITIS C ANTIBODY Routine 04/05/2023 11:27 AM VISUALIZATION DEVELOPER End stage renal disease (HCC) PSA SCREEN Routine 04/05/2023 11:27 AM VISUALIZATION DEVELOPER End stage renal disease (HCC) from Last 3 Months or Most Recently Relevant to Health Maintenance Results * HLA Antibody Screen by PRA or SAB per Schedule (Class I and Class II) (07/27/2024 10:00 AM CDT) Blood 07/27/2024 10:0 0 AM CDT Narrative HISTOT[facility] - VISUALIZATION DEVELOPER Sample received in lab. PRA Screen ordered. Alejo Florence MD LAB BLOOD [...] a method developed and validated by the [facility] HLA laboratory based on an FDA- approved IVD kit (LABScreen PRA, [employer], [place], [place]). Interpretive comments: The percentage of beads with MFI > 750 is reported, which indicates the percentage of donor population estimated to be incompatible with the patient tested. PRA > 0% is consistent with alloimmunization to HLA. Testing performed at the [facility], [address] [place] [address], 5th floor, [place], [address]. [facility] # [id number]. Breanne Nieto, Ph.D., Saloon Keeper, HLA Laboratory Abdoulaye Kraft M.D., Ph.D., Concert Promoter, HLA Laboratory Denise Abreu, Ph.D., CLIA Concert Promoter, [facility] Current methodology and interpretive comments last revised on 06/16/2017. Alejo Florence MD LAB BLOOD ORDERABLES Final Resu lt [facility] * PSA screen (04/05/2023 11:27 AM VISUALIZATION DEVELOPER) PSA-Total 0.28 <=3.90 ng/mL [facility] Comment: Interpretive Data AGE SEX REFERENCE INTERVAL [...] revised 21. Blood 04/05/2023 11:2 7 AM VISUALIZATION DEVELOPER 04/05/2023 12:10 PM VISUALIZATION DEVELOPER Narrative [facility] - 04/05/2023 12:57 PM VISUALIZATION DEVELOPER This lab is being obtained as part of a Kidney transplant evaluation, is time sensitive, and should only be drawn during the evaluation visit at [facility] Lab. Abena Brown MD LAB BLOOD ORDERABL ES Final Result Performing Organization Address [facility] Co de Phone Number [facility] Department [place] [address] * Hepatitis C antibody Blood (04/05/2023 11:27 AM VISUALIZATION DEVELOPER) Hep C Ab Nonreactive Nonreactive [facility] Comment:Antibodies to HCV no t detected. Does NOT exclude the possibility of recent exposure to HCV. Current interpretive data was last revised on 21 Blood 04/05/2023 11:2 7 AM VISUALIZATION DEVELOPER 04/05/2023 12:09 PM VISUALIZATION DEVELOPER Narrative [facility] - 04/05/2023 1:03 PM VISUALIZATION DEVELOPER This lab is being obtained as part of a Kidney transplant evaluation, is time sensitive, and should only be drawn during the evaluation visit at [facility] Lab. Abena Brown MD LAB MICROBIOLOGY - GENERAL ORDERABLES Final Result [facility] Department [place] [address] from Last 3 Months or Most Recently Relevant to Health Maintenance Insurance MEDICARE [facility] [place] [address] Care Teams Film Developer Relationship Specialty Start Date End Date Angella Han NP [address] [place] [address] PCP - General Nurse Practitioner 08/14/24 Janet Moss, RN [address] [address] Bar Tacker Sewing Machine 10/06/22 Quang Johnson DO [address] [place] [address] Referring Physician Internal Medicine 05/18/24
--- NOTE | 2024-09-27 12:38 | ED.GENADULT ---
HPI - General Adult General Chief complaint: Dizziness Stated complaint: hypotension Time Seen by Provider: 09/27/24 12:27 History of Present Illness HPI narrative: This is a 54-year-old male with history of end-stage renal disease on peritoneal dialysis, congestive heart failure presenting for frequent falls. He was discharged on 09/22 24 after being fluid overloaded due to a malfunctioning peritoneal dialysis system. He was diuresed and then eventually discharged. Since his discharge she has been having orthostatic symptoms. He is frequently dizzy and becomes lightheaded and he has had to lower himself to the ground multiple times per day since he left. He has not struck his head or sustained any serious injuries. He saw his primary care physician for follow-up today his blood pressure was noted to be in the 60s. He also had a fall at the clinic. She was then sent to the hospital for evaluation. Patient's only complaint is orthostatic hypotension. He denies chest pain, difficulty breathing, fevers, nausea vomiting or diarrhea. The patient med list includes carvedilol, Entresto, torsemide, had a flows in which can all lower blood pressure. He has been doing peritoneal dialysis each night without complication. Related Data Home Medications ?Medication ?Instructions ?Recorded ?Confirmed ?Last Taken ?Type gentamicin 0.1 % topical cream 1 applic topical TID PRN DIALYSIS 08/31/22 09/14/24 09/27/23 History CATH. calcium carbonate (Tums) 200 mg PO HS PRN Indigestion 07/20/23 09/14/24 09/27/23 History cinacalcet 30 mg tablet 90 mg PO DAILY 07/20/23 09/14/24 09/27/23 History multivitamin 1 tablet PO DAILY 07/29/23 09/14/24 10/05/23 History ferric citrate 210 mg iron tablet 210 mg PO TIDWM 09/28/23 09/14/24 Unknown History (Auryxia) escitalopram oxalate 10 mg tablet 10 mg PO DAILY 03/09/24 09/14/24 Unknown History albuterol sulfate 90 mcg/actuation 2 inh inhalation QID PRN shortness 03/29/24 09/14/24 Unknown History aerosol inhaler of breath or wheezing calcium acetate(phosphat bind) 667 2,668 mg PO TIDWM 03/29/24 09/14/24 Unknown History mg capsule ondansetron 4 mg disintegrating 8 mg translingual Q8H PRN nausea 03/29/24 09/14/24 Unknown History tablet and vomiting Allergies Allergy/AdvReac Type Severity Reaction Status Date / Time No Known Allergies Allergy Verified 09/27/24 12:36 [facility] Past Medical History Medical History Peritoneal dialysis catheter in place Polyneuropathy HTN (hypertension) Vitamin D3 deficiency Surgical History Surgical History History of appendectomy Family History Family History Father Hypertension Social History Social History Social History: Lives alone in an apartment. No pets. Smoking packs per day: 0.25 Smoking cigarettes per day: 5.0 Years smoked: 20 Smoking pack-years: 5.00 Smoking status: Former smoker Tobacco type: cigarettes Alcohol intake: unknown Alcohol use details: rarely Substance use: current Substance use type: marijuana Other substance usage details: OCCASIONAL Do You Feel Safe in your Home?: Yes Lack of Transportation: No Lack of Food: Never True Current Housing: I Have Housing Concerned About Future Housing: No Difficulty Paying Gas/Electric Bills: No Difficulty Paying for Meds: No Currently Unemployed: No Education: Bachelor's Degree Difficulty w/ Childcare or Family Care: No Living arrangements: with family Occupation/Education: unemployed Gender identity (if verbalized by the patient): Male Sexual Orientation (if Verbalized by the Patient): Straight or Heterosexual Spiritual care concerns: No Agree to blood products: Yes Exam Narrative: APPEARANCE: No apparent distress. Head: atraumatic. EYES: EOMI, NOSE: Atraumatic NECK: Trachea midline RESPIRATORY: No increased rate of breathing CTAB CARDIOVASCULAR: RRR, no peripheral edema ABDOMINAL: Non-distended soft nontender, PD dialysis port in place MUSCULOSKELETAl: No obvious deformities NEURO: Alert. Moving 4/4 extremities SKIN:: Warm, dry. Normal color PSYCHIATRIC: Normal affect Course Vital Signs Vital signs: Vital Signs Temperature 98.0 F 09/27/24 12:22 Pulse Rate 106 H 09/27/24 12:22 Respiratory Rate 20 09/27/24 12:22 Blood Pressure 74/49 L 09/27/24 12:22 Pulse Oximetry 98 09/27/24 12:22 Oxygen Delivery Room Air 09/27/24 12:22 Temperature 98.0 F 09/27/24 12:34 Pulse Rate 103 H 09/27/24 12:34 Respiratory Rate 20 09/27/24 12:34 Blood Pressure 74/49 L 09/27/24 12:34 Pulse Oximetry 98 09/27/24 12:34 Oxygen Delivery Room Air 09/27/24 12:22 Medical Decision Making MDM Narrative Medical decision making narrative: -Course: 54-year-old male presenting for hypotension and orthostatic symptoms. On arrival he was hypotensive and tachycardic, despite looking very well-appearing with no obvious distress. Full sepsis workup obtained. Patient given a 30 cc/kilogram bolus. White count elevated 14. Lactic 2.1. No source of infection on initial workup. Blood cultures viral swabs are still pending. Patient started on broad-spectrum antibiotics. Patient responded to the fluid bolus and is now normotensive. Differential includes sepsis of unknown source versus over medication. The patient is now taking carvedilol, Entresto, empagiflozin and torsemide, all of which can cause patient to be hypotensive. Patient will be admitted hospital further management -DDX includes but is not limited to: Sepsis, over medication, pneumonia, UTI, SBP Vital Signs Vital Signs: Vital Signs Temperature 98.0 F 09/27/24 12:22 Pulse Rate 106 H 09/27/24 12:22 Respiratory Rate 20 09/27/24 12:22 Blood Pressure 74/49 L 09/27/24 12:22 Pulse Oximetry 98 09/27/24 12:22 Oxygen Delivery Room Air 09/27/24 12:22 Temperature 98.0 F 09/27/24 12:34 Pulse Rate 103 H 09/27/24 12:34 Respiratory Rate 20 09/27/24 12:34 Blood Pressure 74/49 L 09/27/24 12:34 Pulse Oximetry 98 09/27/24 12:34 Oxygen Delivery Room Air 09/27/24 12:22 Lab Data 09/27/24 12:42 09/27/24 12:42 Labs: Lab Results 09/27/24 09/27/24 Range/Units 12:42 14:21 WBC 14.2 H (4.5-10.0) K/mm3 RBC 4.29 L (4.6-6.20) M/mm3 Hgb 13.4 L (14.0-18.0) g/dL Hct 41.3 L (42.0-52.0) % MCV 96.3 (80-100) fl MCH 31.2 (26-34) pg MCHC 32.4 (32-36) g/dl RDW 13.4 (11.5-14.5) % Plt Count 431 H (150-375) k/mm3 MPV 9.1 (7.4-10.4) fl Immature Gran % (Auto) 0.6 H (0-0.5) % Neut % (Auto) 73.8 H (45.5-73.1) % Lymph % (Auto) 10.8 L (18.3-44.2) % Amelia % (Auto) 9.5 H (2.6-8.5) % Eos % (Auto) 4.9 H (0-4.4) % Baso % (Auto) 0.4 (0.2-1.2) % Lymph # (Auto) 1.53 (0.9-3.2) K/mm3 Amelia # (Auto) 1.4 H (0.1-0.6) K/mm3 Eos # (Auto) 0.7 H (0-0.3) K/mm3 Baso # (Auto) 0.1 (0.0-0.1) K/mm3 Abs Immat Gran (auto) 0.08 H (0.00-0.031) K/mm3 Absolute Neuts (auto) 10.4 H (1.3-6.7) K/mm3 Absolute Nucleated RBC 0.000 (0.0-0.012) K/mm3 Nucleated RBC % 0.0 (0.0-0.2) % Sodium 128 L (137-145) mmol/L Potassium 3.6 (3.4-5.0) mmol/L Chloride 89 L (98-107) mmol/L Carbon Dioxide 24 (22-30) mmol/L Anion Gap 15 H (4-12) mmol/L BUN 64 H (9-20) mg/dL Creatinine 12.33 H (0.7-1.3) mg/dL Estim Creat Clear Calc Not Reportable Estimated GFR 4 L (59 - ) Glucose 122 H (65-110) mg/dL Lactic Acid 2.1 H (0.7-2.0) mmol/L Calcium 9.0 (8.4-10.2) mg/dL Phosphorus 7.6 H (2.5-4.5) mg/dL Magnesium 1.8 (1.6-2.3) mg/dL Total Bilirubin 0.5 (0.2-1.3) mg/dL AST 33 (17-59) U/L ALT 56 H (6-50) U/L Alkaline Phosphatase 125 (38-126) U/L Troponin I 0.029 (0.000-0.034) ng/mL NT-Pro-B Natriuret Pep 4540 H (19.9-100) pg/mL Total Protein 6.5 (6.3-8.2) g/dL Albumin 3.6 (3.5-5.1) g/dL Nasal MRSA (PCR) Pending ABG Data ABG results: 09/27/24 13:46 VBG pH 7.426 H* VBG pCO2 32.3 L VBG pO2 35.6 VBG HCO3 20.8 L O2 Delivery Device Room air O2 Liters/Min 0.0 FiO2 21 Discharge Plan Discharge Clinical Impression: Acute hypotension, Leukocytosis Patient Disposition: Home Condition: Stable Instructions: Antibiotic Form Patient Language: Citizen Of [place] Prescriptions: No Action gentamicin 0.1 % cream 1 applic topical TID PRN (Reason: DIALYSIS CATH.) calcium carbonate [Tums] 200 mg calcium (500 mg) tablet,chewable 200 mg PO HS PRN (Reason: Indigestion) omeprazole 20 mg capsule,delayed release(DR/EC) 20 mg PO DAILY Qty: 90 1RF nortriptyline 50 mg capsule 50 mg PO DAILY Qty: 90 1RF multivitamin Tablet 1 tablet PO DAILY Entresto 49-51 mg tablet 1 tablet PO BID Qty: 60 5RF dapagliflozin propanediol [Farxiga] 10 mg tablet 10 mg PO DAILY Qty: 30 5RF ferric citrate [Auryxia] 210 mg iron Tablet 210 mg PO TIDWM Rx Instructions: administer with a meal albuterol sulfate 90 mcg/actuation HFA aerosol inhaler 2 inh INHALATION QID PRN (Reason: shortness of breath or wheezing) calcium acetate(phosphat bind) 667 mg capsule 2,668 mg PO TIDWM ondansetron 4 mg tablet,disintegrating 8 mg translingual Q8H PRN (Reason: nausea and vomiting) gabapentin 100 mg Capsule 100 mg PO TID Qty: 90 0RF carvedilol 25 mg tablet 12.5 mg PO Q12H Qty: 60 5RF Rx Instructions: must administer with a meal/food melatonin 10 mg capsule 20 mg PO HS PRN (Reason: Insomnia) Qty: 30 0RF cinacalcet 30 mg tablet 90 mg PO DAILY escitalopram oxalate 10 mg tablet 10 mg PO DAILY torsemide 100 mg tablet See Rx Instructions .ROUTE .COMPLEX Qty: 30 11RF Dose Instruction: TAKE 1 TABLET BY MOUTH EVERY MORNING Rx Instructions: TAKE 1 TABLET BY MOUTH EVERY MORNING diphenoxylate-atropine 2.5-0.025 mg tablet 1 tablet PO QID PRN (Reason: diarrhea) Qty: 60 0RF hydrocodone-acetaminophen 5-325 mg tablet 1 tablet PO Q8H PRN (Reason: Pain Rated 4-10) Qty: 90 0RF buspirone 10 mg tablet See Rx Instructions .ROUTE .COMPLEX Qty: 90 0RF Dose Instruction: TAKE 1 TABLET BY MOUTH THREE TIMES DAILY Rx Instructions: TAKE 1 TABLET BY MOUTH THREE TIMES DAILY Follow-up/Referrals: Angella Han APRN [Primary Care Provider] -
[2024-09-27] MEDS: SODIUM CHLORIDE 0.9% IV 1,000 ML 999 ML IV CONT (12:43)
[2024-09-27 13:01] LABS: Hematocrit 41.3 % (42.0-52.0); Hemoglobin 13.4 g/dL (14.0-18.0); Immature Granulocyte Percent A 0.6 % (0-0.5); Lymphocytes Absolute Auto 1.53 K/mm3 (0.9-3.2); Mean Corpuscular HGB Conc 32.4 g/dl (32-36); Mean Corpuscular Hemoglobin 31.2 pg (26-34); Mean Corpuscular Volume 96.3 fl (80-100); Nucleated Red Blood Cells Absolute Auto 0.000 K/mm3 (0.0-0.012); Nucleated Red Blood Cells Perc 0.0 % (0.0-0.2); Platelet Count Result 431 k/mm3 (150-375); Red Blood Count 4.29 M/mm3 (4.6-6.20); White Blood Count 14.2 K/mm3 (4.5-10.0)
--- NOTE | 2024-09-27 13:08 | PCRCNOTE ---
VBG ordered; called E.D. charge nurse for someone to notifiy Respiratory when it had been collected. Ordered at 1239; not heard back yet.
[2024-09-27 13:25] LABS: Alanine Aminotransferase 56 U/L (6-50); Albumin Level 3.6 g/dL (3.5-5.1); Alkaline Phosphatase 125 U/L (38-126); Anion Gap 15 mmol/L (4-12); Aspartate Amino Transferase 33 U/L (17-59); Bilirubin,Total 0.5 mg/dL (0.2-1.3); Blood Urea Nitrogen 64 mg/dL (9-20); Calcium 9.0 mg/dL (8.4-10.2); Carbon Dioxide 24 mmol/L (22-30); Chloride 89 mmol/L (98-107); Estimated Glomerular Filt Rate 4; Glucose 122 mg/dL (65-110); Magnesium 1.8 mg/dL (1.6-2.3); Potassium 3.6 mmol/L (3.4-5.0); Sodium 128 mmol/L (137-145); Total Protein 6.5 g/dL (6.3-8.2)
--- NOTE | 2024-09-27 13:31 | ECG_ITS ---
Test Date: 2024-09-27 13:37:25 Measurements Intervals [place] Rate: 90 P: -61 FL: 156 QRS: 20 QRSD: 119 T: 78 QT: 361 QTc: 443 Interpretive Statements SINUS RHYTHM WITH OCCASIONAL SUPRAVENTRICULAR PREMATURE COMPLEXES BORDERLINE AV CONDUCTION DELAY INCOMPLETE LEFT BUNDLE BRANCH BLOCK DELAYED PRECORDIAL R/S TRANSITION NONSPECIFIC ST & T-WAVE ABNORMALITY- HIGH LATERAL LEADS BASELINE ARTIFACT- I, II, III, AVR, AVL, AVF ABNORMAL ECG Compared to ECG 09/27/2024 12:26:46 HEART RATE HAS DECREASED Electronically Signed On 09-27-2024 14:57:40 CDT by Quang Johnson D.O.
[2024-09-27 13:37] LABS: NT Pro B Type Natriuretic Pept 4540 pg/mL (19.9-100); Troponin I 0.029 ng/mL (0.000-0.034)
[2024-09-27 13:49] LABS: Fractional Inspired Oxygen 21 %; HCO3 VBG 20.8 mEq/l (24.0-30.0); PCO2 VBG 32.3 mmHg (42.0-48.0); PO2 VBG 35.6 mmHg (35.0-45.0)
[2024-09-27 13:52] LABS: Liters per Minute 0.0 LPM; pH VBG 7.426 (7.300-7.400)
[2024-09-27] MEDS: LACTATED RINGERS 1,000 ML 999 ML IV CONT ×2 (13:56)
--- NOTE | 2024-09-27 13:58 | PC.NURSE ---
Pt states he does not produce very much urine but states that he will try
[2024-09-27] MEDS: CEFEPIME 1 GM in SODIUM CHLORIDE 0.9% IV 50 ML 100 ML IVPB (14:35)
[2024-09-27] MEDS: VANCOMYCIN 1,750 MG/NS 500 ML 1,750 MG/500 ML BAG 250 MG IVPB (14:50)
[2024-09-27 15:37] LABS: MRSA (PCR) NOT DETECTED (NOT DETECTE)
--- NOTE | 2024-09-27 15:43 | ECG_ITS ---
Test Date: 2024-09-27 15:47:22 Measurements Intervals [place] Rate: 92 P: 47 ME: 222 QRS: 18 QRSD: 117 T: 104 QT: 347 QTc: 431 Interpretive Statements SINUS RHYTHM WITH FIRST DEGREE AV BLOCK INCOMPLETE LEFT BUNDLE BRANCH BLOCK NONSPECIFIC ST & T-WAVE ABNORMALITY- HIGH LATERAL LEADS BASELINE ARTIFACT- I, II, III, AVR, AVL, AVF, V4-V5 ABNORMAL ECG Compared to ECG 09/27/2024 13:37:25 First degree AV block now present Electronically Signed On 09-27-2024 16:04:08 CDT by Quang Johnson D.O.
[2024-09-27 16:11] LABS: Troponin I 0.030 ng/mL (0.000-0.034)
[2024-09-27 16:18] VITALS: BP 157/102; PULSE 96; RESP 20; TEMP 36.4; O2SAT 96
[2024-09-27 16:23] LABS: Influenza A QL RT-PCR Negative (Negative); Influenza B QL RT-PCR Negative (Negative); RSV RNA, RT-PCR Negative (Negative); SARS-CoV-2 RNA PCR Negative (Negative)
[2024-09-27 16:31] VITALS: BMI 35.9
--- NOTE | 2024-09-27 16:46 | P.HP_ITS ---
H&P: HPI History of Present Illness Date/Time: 09/27/24 16:46 Chief Complaint: Hypotension Narrative: 54-year-old male with past medical history of peritoneal dialysis, CHF, hypertension hyperlipidemia presents the hospital with hypotension. Patient went to his PCP today for his post hospitalization follow-up for was found to be extremely hypo intensive and was sent to the emergency room. Patient states that he has been having problems with orthostatic hypotension since he left hospital on 09/22/2024. Where he was admitted for shortness of breath due to fluid overload from a PD catheter malfunction. On discharge patient's torsemide was held. Patient states that he was on midodrine however the to come off due to his blood pressures being too high. Lab work shows leukocytosis at 14.2 hemoglobin of 13.4, sodium of 128, chloride of 89, anion gap of 15 BUN of 64, creatinine of 12.33 which is baseline glucose of 122, lactic acid of 2.1, phosphorus is 7.6, proBNP of 4540, influenza A/B, RSV, COVID negative. CT chest abdomen pelvis shows small amount of intraperitoneal gas and fluid likely due to peritoneal dialysis. No acute findings found. Review of Systems Review of Systems: 12 systems were reviewed and are negativ e except for as per HPI. [facility] Past Medical History Medical History Peritoneal dialysis catheter in place Polyneuropathy HTN (hypertension) Vitamin D3 deficiency Surgical History Surgical History History of appendectomy Family History Family History Father Hypertension Social History Social History Social History: Lives alone in an apartment. No pets. Smoking packs per day: 0.25 Smoking cigarettes per day: 5.0 Years smoked: 20 Smoking pack-years: 5.00 Smoking status: Former smoker Alcohol intake: unknown Alcohol use details: rarely Substance use: current Substance use type: marijuana Other substance usage details: OCCASIONAL Do You Feel Safe in your Home?: Yes Lack of Transportation: No Lack of Food: Never True Current Housing: I Have Housing Concerned About Future Housing: No Difficulty Paying Gas/Electric Bills: No Difficulty Paying for Meds: No Currently Unemployed: No Education: Bachelor's Degree Difficulty w/ Childcare or Family Care: No Living arrangements: with family Occupation/Education: unemployed Gender identity (if verbalized by the patient): Male Sexual Orientation (if Verbalized by the Patient): Straight or Heterosexual Spiritual care concerns: No Agree to blood products: Yes Meds Home Medications and Allergies Home Medications ?Medication ?Instructions ?Recorded ?Confirmed ?Type calcium carbonate (Tums) 200 mg PO HS PRN Indigestion 07/20/23 09/27/24 History cinacalcet 30 mg tablet 90 mg PO DAILY 07/20/23 09/27/24 History multivitamin 1 tablet PO DAILY 07/29/23 09/27/24 History ferric citrate 210 mg iron tablet 210 mg PO TIDWM 09/28/23 09/27/24 History (Auryxia) omeprazole 20 mg capsule,delayed 20 mg PO DAILY #90 caps 03/08/24 09/27/24 Rx release escitalopram oxalate 10 mg tablet 10 mg PO DAILY 03/09/24 09/27/24 History albuterol sulfate 90 mcg/actuation 2 inh inhalation QID PRN shortness 03/29/24 09/27/24 History aerosol inhaler of breath or wheezing calcium acetate(phosphat bind) 667 2,668 mg PO TIDWM 03/29/24 09/27/24 History mg capsule ondansetron 4 mg disintegrating 8 mg translingual Q8H PRN nausea 03/29/24 09/27/24 History tablet and vomiting torsemide 100 mg tablet See Rx Instructions .Route 05/08/24 09/27/24 Rx .COMPLEX #30 tabs dapagliflozin propanediol 10 mg 10 mg PO DAILY #30 tabs 05/12/24 09/27/24 Rx tablet (Farxiga) sacubitril 49 mg-valsartan 51 mg 1 tablet PO BID #60 tabs 05/12/24 09/27/24 Rx tablet (Entresto) nortriptyline 50 mg capsule 50 mg PO DAILY #90 caps 05/15/24 09/27/24 Rx diphenoxylate-atropine 2.5 1 tablet PO QID PRN diarrhea #60 05/29/24 09/27/24 Rx mg-0.025 mg tablet tabs hydrocodone 5 mg-acetaminophen 325 1 tablet PO Q8H PRN Pain Rated 08/15/24 09/27/24 Rx mg tablet 4-10 #90 tabs buspirone 10 mg tablet See Rx Instructions .Route 09/11/24 09/27/24 Rx .COMPLEX #90 tabs carvedilol 25 mg tablet 12.5 mg (1/2 x 25 mg) PO Q12H #60 09/22/24 09/27/24 Rx tabs gabapentin 100 mg capsule 100 mg PO TID #90 caps 09/22/24 09/27/24 Rx melatonin 10 mg capsule 20 mg (2 x 10 mg) PO HS PRN 09/22/24 09/27/24 Rx Insomnia #30 caps Allergies Allergy/AdvReac Type Severity Reaction Status Date / Time No Known Allergies Allergy Verified 09/27/24 17:42 Vital Signs Vital Signs - 24 hr 09/27/24 12:22 09/27/24 12:34 09/27/24 16:18 Temperature 98.0 F 98.0 F 97.5 F L Pulse Rate 106 H 103 H 96 Respiratory Rate 20 20 20 Blood Pressure 74/49 L 74/49 L 157/102 H Pulse Oximetry 98 98 96 Oxygen Delivery Room Air Exam Narrative: General: well appearing, appears stated age. HEENT: normocephalic, atraumatic. Mucous membranes moist. EOMI, PERRLA, bilateral sclera anicteric, no conjunctival injection. Neck supple without JVD, lymphadenopathy, or bruit. Respiratory: clear to ascultation bilaterally. No rales/rhonic/wheezes. Cardiovascular: Regular rate and rhythm, normal S1-S2 upon ascultation. No murmurs, rubs, or clicks. PMI is nondisplaced, capillary refill less than 3 second. Abdomen: Soft, round, no pulsatile masses, nondistended and nontender. No rebound, no guarding. No CVA tenderness, no hepatosplenomegaly. Bowel sounds present to all four quadrants. No high pitch or tinkling sounds, resonant to percussion. PD catheter without erythema Extremities: No cyanosis, clubbing, or edema present. Pulses are palpable 2/2. Active ROM to all four extremities. Neuro: Alert and orientated x 4. PERRLA. Cranial nerves 2-12 intact without focal deficit. Skin: Warm, dry, and intact, without rash, erythema, or lesion. Psych: pleasant, cooperative, normal speech, normal affect, no hallucinations, no dysarthia H&P: Results Labs Labs: Short CBC 09/27/24 Range/Units 12:42 WBC 14.2 H (4.5-10.0) K/mm3 Hgb 13.4 L (14.0-18.0) g/dL Hct 41.3 L (42.0-52.0) % Plt Count 431 H (150-375) k/mm3 BMP 09/27/24 12:42 Sodium 128 L Potassium 3.6 Chloride 89 L Carbon Dioxide 24 BUN 64 H Creatinine 12.33 H Glucose 122 H Calcium 9.0 Cardiac Enzymes 09/27/24 09/27/24 Range/Units 12:42 15:29 Troponin I 0.029 0.030 (0.000-0.034) ng/mL Liver Function 09/27/24 Range/Units 12:42 Total Bilirubin 0.5 (0.2-1.3) mg/dL AST 33 (17-59) U/L ALT 56 H (6-50) U/L Alkaline Phosphatase 125 (38-126) U/L Albumin 3.6 (3.5-5.1) g/dL Assessment and Plan Assessment and plan (1) Acute hypotension: Code(s): I95.9 - Hypotension, unspecified Status: Acute Assessment and Plan: Blood pressure in emergency room was 74/49, improved after fluid bolus Fluid bolus given emergency room with improvement Hold antihypertensive medications (2) Generalized weakness: Code(s): R53.1 - Weakness Status: Acute Assessment and Plan: PT OT evaluate and treat Orthostatic vital signs L (3) HTN (hypertension): Code(s): I10 - Essential (primary) hypertension Status: Chronic Assessment and Plan: Hold antihypertensives at this time (4) Diastolic dysfunction: Code(s): I51.89 - Other ill-defined heart diseases Status: Acute Assessment and Plan: Cardiology consulted for possible medication adjustment Continue carvedilol and Farxiga (5) End-stage renal disease on peritoneal dialysis: Code(s): N18.6 - End stage renal disease; Z99.2 - Dependence on renal dialysis Status: Acute Assessment and Plan: Nephrology consulted Peritoneal dialysis Quality VTE Prophylaxis VTE prophylaxis: mechanical ordered Hospitalist MIPS Advance Care Plan I have confirmed that the patient's Advanced Care Plan is present, code status is documented, or surrogate decision maker is listed in patient medical record.: Yes Medication Reconciliation I have utilized all available resources to obtain, update and review the patients current medications (includes all prescriptions, OTC, herbals, cannabis, and nutritional supplements).: Yes
[2024-09-27] MEDS: ONDANSETRON INJ 4 MG/2 ML VIAL IV PUSH (17:37)
[2024-09-27 18:29] LABS: MRSA (PCR) NOT DETECTED (NOT DETECTE)
[2024-09-27 20:00] VITALS: BP 114/63; PULSE 90; PULSE 93; RESP 18; TEMP 36.5; O2SAT 97
[2024-09-27] MEDS: GABAPENTIN 100 MG CAPSULE PO (20:15)
[2024-09-27 20:26] VITALS: PULSE 75; RESP 20; O2SAT 90
--- NOTE | 2024-09-27 21:55 | PC.NURSE ---
Patient refused medication, education provided. Patients states understanding
[2024-09-28] VITALS (15 sets, daily range): BP systolic 78–108; BP diastolic 51–61; PULSE 87–100; RESP 16–19; TEMP 36.4–36.6; O2SAT 92–98
[2024-09-28] MEDS: CINACALCET 30 MG TABLET 90 MG PO (08:36)
[2024-09-28] MEDS: ESCITALOPRAM OXALATE 10 MG TABLET PO (08:37)
[2024-09-28] MEDS: NORTRIPTYLINE HCL 25 MG CAPSULE 50 MG PO (08:37)
[2024-09-28] MEDS: GABAPENTIN 100 MG CAPSULE PO ×3 (08:37→17:08)
[2024-09-28] MEDS: PANTOPRAZOLE 40 MG TABLET PO (08:37)
[2024-09-28] MEDS: EMPAGLIFLOZIN 10 MG TABLET PO (08:37)
[2024-09-28] MEDS: CALCIUM ACETATE 667 MG TABLET 2668 MG PO ×3 (08:37→17:08)
[2024-09-28] MEDS: ONDANSETRON INJ 4 MG/2 ML VIAL IV PUSH ×2 (08:40→13:09)
--- NOTE | 2024-09-28 08:58 | P.PNIM_ITS ---
Progress Note: A&P Assessment and Plan (1) Sepsis: Qualifiers: Sepsis acute organ dysfunction status: unspecified Sepsis type: sepsis due to unspecified organism Qualified Code(s): A41.9 - Sepsis, unspecified o rganism Code(s): A41.9 - Sepsis, unspecified organism Status: Resolved Assessment and Plan: BP 74/42 s/p fluids. No cough or fevers. Lungs are clear and no evidence of infectious process on CT chest abdomen pelvis. Treating for sepsis. WBC elevated, 14. Lactate elevated 2.1, Na low, 128. Started on empiric Vanc, Cefepime. --Blood cultures x2 pending 09/27 --Cell count, Peritoneal fluid culture with next dialysis --Only makes a normal amount of urine, a few mls every 3-4 days. Patient declined straight cath. Reports his last urine was normal not cloudy no dysuria. Also notes that his peritoneal dialysis fluid was not cloudy with his last exchange. Check UA with next PD exchange. --reports nausea and abdominal cramping with watery diarrhea. Generally takes Lomotil at home. Continue. Check stool for C diff and culture that have previously been negative. Diarrhea may be related to PD. Discussed that nausea may be 2/2 hypotension but adding zofran prn --blood pressure still low, 80s. May be related to fluid losses, but white count also elevated --continue empiric cefepime and vancomycin -- Blood cultures are pending --Trend WBC, lactate (2) Leukocytosis: Code(s): D72.829 - Elevated white blood cell count, unspecified Status: Acute (3) Acute hypotension: Code(s): I95.9 - Hypotension, unspecified Status: Acute Assessment and Plan: Blood pressure in emergency room was 74/49, improved after fluid bolus Fluid bolus given emergency room with improvement Hold antihypertensive medications Additional 500ml fluids tonight (4) Generalized weakness: Code(s): R53.1 - Weakness Status: Acute Assessment and Plan: PT OT evaluate and treat Orthostatic vital signs (5) HTN (hypertension): Code(s): I10 - Essential (primary) hypertension Status: Chronic Assessment and Plan: Hold antihypertensives at this time (6) Diastolic dysfunction: Code(s): I51.89 - Other ill-defined heart diseases Status: Acute Assessment and Plan: Cardiology consulted for possible medication adjustment Holding carvedilol Stop Farxiga/Jardiance since anuric. Likely no benefit (7) End-stage renal disease on peritoneal dialysis: Code(s): N18.6 - End stage renal disease; Z99.2 - Dependence on renal dialysis Status: Acute Assessment and Plan: Nephrology consulted Peritoneal dialysis (8) Hyponatremia: Code(s): E87.1 - Hypo-osmolality and hyponatremia Status: Acute Time Spent With Patient Time: 54 minutes Subjective Date/time seen: 09/28/24 08:58 Interval history: BP 78-99/54-59 Denies feeling dizzy but has only been up to the commode today. Having diarrhea Anuric so stopped jardiance. Unable to collect UA Nephrology and cardiology consulted. Carvedilol and entresto on hold Review of Systems Review of Systems: 12 systems were reviewed and are negativ e except for as per HPI. Exam Narrative: General: well appearing, appears stated age. HEENT: normocephalic, atraumatic. Mucous membranes moist. EOMI, PERRLA, bilateral sclera anicteric, no conjunctival injection. Neck supple without JVD, lymphadenopathy, or bruit. Respiratory: clear to auscultation bilaterally. No rales/rhonic/wheezes. Cardiovascular: Regular rate and rhythm, normal S1-S2 upon auscultation. No murmurs, rubs, or clicks. PMI is nondisplaced, capillary refill less than 3 second. Abdomen: Soft, round, no pulsatile masses, nondistended and nontender. No rebound, no guarding. No CVA tenderness, no hepatosplenomegaly. Bowel sounds present to all four quadrants. No high pitch or tinkling sounds, resonant to percussion. PD catheter without erythema Extremities: No cyanosis, clubbing, or edema present. Pulses are palpable 2/2. Active ROM to all four extremities. Neuro: Alert and orientated x 4. PERRLA. Cranial nerves 2-12 intact without focal deficit. Skin: Warm, dry, and intact, without rash, erythema, or lesion. Psych: pleasant, cooperative, normal speech, normal affect, no hallucinations, no dysarthria Objective Data Vital Signs Vital Signs: Vital Signs - 24 hr 09/27/24 12:22 09/27/24 12:34 09/27/24 16:18 Temperature 98.0 F 98.0 F 97.5 F L Pulse Rate 106 H 103 H 96 Respiratory Rate 20 20 20 Blood Pressure 74/49 L 74/49 L 157/102 H Pulse Oximetry 98 98 96 Oxygen Delivery Room Air Fraction of Inspired Oxygen 09/27/24 17:30 09/27/24 20:00 09/27/24 20:00 Temperature 97.7 F Pulse Rate 90 93 Respiratory Rate 18 Blood Pressure 114/63 Pulse Oximetry 97 Oxygen Delivery Room Air Fraction of Inspired Oxygen 09/27/24 20:26 09/28/24 00:00 09/28/24 04:00 Temperature Pulse Rate 75 98 96 Respiratory Rate 20 Blood Pressure Pulse Oximetry 90 Oxygen Delivery Room Air Fraction of Inspired Oxygen 21 09/28/24 05:51 09/28/24 07:09 09/28/24 08:38 Temperature 97.6 F 97.6 F Pulse Rate 100 100 101 H Respiratory Rate 18 18 Blood Pressure 105/51 L 105/51 L Pulse Oximetry 92 Oxygen Delivery Fraction of Inspired Oxygen Intake/Output Intake/Output: Intake & Output 09/25/24 09/26/24 09/27/24 09/28/24 23:59 23:59 23:59 23:59 Intake Total 3530 50 Output Total 2428 Balance 3530 -7165 Meds/Results Medications: Active Medications Generic Name Dose Route Start Last Admin Trade Name Freq PRN Reason Stop Dose Admin Hydrocodone Bitart/Acetaminophen 1 tab 09/27/24 20:15 Hydrocodone/Acetaminophen (*Crx) 5-325 Mg Tablet PO Q8H PRN Pain Rated 4-10 Albuterol 2 puff 09/27/24 18:54 Albuterol Sulfate (*Sp) Aerosol 1 Puff INHALATION QID PRN shortness of breath or wheezing Buspirone HCl 10 mg 09/27/24 22:00 09/28/24 05:00 Buspirone Hcl 10 Mg Tablet BY MOUTH 10 mg Q8HR CARIDAD Administration Calcium Acetate 2,668 mg 09/28/24 08:00 09/28/24 08:37 Calcium Acetate 667 Mg Tablet PO 2,668 mg TIDWM CARIDAD Administration Carvedilol 12.5 mg 09/27/24 21:00 09/28/24 08:38 Carvedilol 12.5 Mg Tablet PO 12.5 mg Q12HR CARIDAD Administration Cinacalcet 90 mg 09/28/24 08:00 09/28/24 08:36 Cinacalcet 30 Mg Tablet PO 90 mg DAILY@0800 CARIDAD Administration Empagliflozin 10 mg 09/28/24 09:00 09/28/24 08:37 Empagliflozin 10 Mg Tablet PO 10 mg DAILY CARIDAD Administration Escitalopram Oxalate 10 mg 09/28/24 09:00 09/28/24 08:37 Escitalopram Oxalate 10 Mg Tablet PO 10 mg DAILY CARIDAD Administration Gabapentin 100 mg 09/27/24 19:20 09/28/24 08:37 Gabapentin 100 Mg Capsule PO 100 mg TID CARIDAD Administration Gentamicin Sulfate 1 applic 09/27/24 21:00 09/27/24 23:56 Gentamicin Sulfate 0.1% Cr 15 Gm Tube TOPICAL Not Given QHS CARIDAD Cefepime HCl 1 gm/ Sodium 50 mls @ 100 mls/hr 09/27/24 14:00 09/27/24 14:58 Chloride IVPB Infused Q24H [facility] Infusion Melatonin 20 mg 09/27/24 18:54 Melatonin 5 Mg Tablet PO HS PRN Insomnia Nortriptyline HCl 50 mg 09/28/24 09:00 09/28/24 08:37 Nortriptyline Hcl 25 Mg Capsule PO 50 mg DAILY CARIDAD Administration Ondansetron HCl 4 mg 09/27/24 17:22 09/28/24 08:40 Ondansetron Inj 4 Mg/2 Ml Vial IV PUSH 4 mg Q4H PRN Administration Nausea And Vomiting Pantoprazole Sodium 40 mg 09/28/24 09:00 09/28/24 08:37 Pantoprazole 40 Mg Tablet PO 40 mg QAM CARIDAD Administration Sacubitril/Valsartan 1 tablet 09/27/24 21:00 Sacubitril/Valsartan 49-51 Mg Tablet PO Q12HR CARIDAD Vancomycin HCl 1 each 09/27/24 14:08 Vancomycin For Peritoneal Dialysis IVPB PRN PRN Vancomycin Protocol Radiology Results: ITS Impressions Chest X-Ray 09/27/24 13:05 IMPRESSION: 1. Mild pulmonary edema in the bilateral mid and lower lung zones. Chest/Abdomen/Pelvis CT 09/27/24 14:34 IMPRESSION: 1. Small amount of free intraperineal gas and small to moderate amount of ascites in the abdomen and pelvis related to peritoneal dialysis with dialysis catheter coiled in the deep pelvis. No other acute intra-abdominal/pelvic process. 2. No acute cardiopulmonary disease. 3. Moderate to severe bilateral renal atrophy. 4. No interval change in a few small pulmonary nodules the with lower lung predominance, the 2 largest measuring 6 mm in the right lower lobe. Consider additional 1 year follow-up low-dose noncontrast chest CT. Labs Labs: Laboratory Results - last 24 hr 09/27/24 09/27/24 09/27/24 12:42 13:46 14:21 WBC 14.2 H RBC 4.29 L Hgb 13.4 L Hct 41.3 L MCV 96.3 MCH 31.2 MCHC 32.4 RDW 13.4 Plt Count 431 H MPV 9.1 Immature Gran % (Auto) 0.6 H Neut % (Auto) 73.8 H Lymph % (Auto) 10.8 L [place] % (Auto) 9.5 H Eos % (Auto) 4.9 H Baso % (Auto) 0.4 Lymph # (Auto) 1.53 [place] # (Auto) 1.4 H Eos # (Auto) 0.7 H Baso # (Auto) 0.1 Abs Immat Gran (auto) 0.08 H Absolute Neuts (auto) 10.4 H Absolute Nucleated RBC 0.000 Nucleated RBC % 0.0 VBG pH 7.426 H* VBG pCO2 32.3 L VBG pO2 35.6 VBG HCO3 20.8 L O2 Delivery Device Room air O2 Liters/Min 0.0 FiO2 21 Sodium 128 L Potassium 3.6 Chloride 89 L Carbon Dioxide 24 Anion Gap 15 H BUN 64 H Creatinine 12.33 H Estim Creat Clear Calc Not Reportable Estimated GFR 4 L Glucose 122 H Lactic Acid 2.1 H Calcium 9.0 Phosphorus 7.6 H Magnesium 1.8 Total Bilirubin 0.5 AST 33 ALT 56 H Alkaline Phosphatase 125 Troponin I 0.029 NT-Pro-B Natriuret Pep 4540 H Total Protein 6.5 Albumin 3.6 Nasal MRSA (PCR) Not detected Influenza A (RT-PCR) Influenza B (RT-PCR) RSV (RT-PCR) SARS-CoV-2 RNA (RT-PCR) 09/27/24 09/27/24 15:29 17:11 WBC RBC Hgb Hct MCV MCH MCHC RDW Plt Count MPV Immature Gran % (Auto) Neut % (Auto) Lymph % (Auto) [place] % (Auto) Eos % (Auto) Baso % (Auto) Lymph # (Auto) [place] # (Auto) Eos # (Auto) Baso # (Auto) Abs Immat Gran (auto) Absolute Neuts (auto) Absolute Nucleated RBC Nucleated RBC % VBG pH VBG pCO2 VBG pO2 VBG HCO3 O2 Delivery Device O2 Liters/Min FiO2 Sodium Potassium Chloride Carbon Dioxide Anion Gap BUN Creatinine Estim Creat Clear Calc Estimated GFR Glucose Lactic Acid 2.1 H Calcium Phosphorus Magnesium Total Bilirubin AST ALT Alkaline Phosphatase Troponin I 0.030 NT-Pro-B Natriuret Pep Total Protein Albumin Nasal MRSA (PCR) Not detected Influenza A (RT-PCR) Negative Influenza B (RT-PCR) Negative RSV (RT-PCR) Negative SARS-CoV-2 RNA (RT-PCR) Negative Quality VTE Prophylaxis VTE prophylaxis: mechanical ordered Hospitalist MIPS Advance Care Plan I have confirmed that the patient's Advanced Care Plan is present, code status is documented, or surrogate decision maker is listed in patient medical record.: Yes Medication Reconciliation I have utilized all available resources to obtain, update and review the patients current medications (includes all prescriptions, OTC, herbals, cannabis, and nutritional supplements).: Yes
--- NOTE | 2024-09-28 09:07 | PM.CNCAR ---
Assessment and Plan Assessment and plan (1) Acute hypotension: Code(s): I95.9 - Hypotension, unspecified Status: Acute Assessment and Plan: Resolved with IVF. Decrease Coreg 3.125 mg BID and Entresto 24-25 mg BID. He is on these for systolic dysfunction which have resolved but can return. (2) Diastolic dysfunction: Code(s): I51.89 - Other ill-defined heart diseases Status: Acute Assessment and Plan: Fluid level managed with PD. (3) Dyslipidemia: Code(s): E78.5 - Hyperlipidemia, unspecified Status: Acute History of Present Illness History of Present Illness Consult date/time: 09/28/24 09:07 Reason For Visit: Hypotension Narrative: 54 yr old man who is my regular cardiology patient and a patient of Dr. Morrell presents to ER for low BP. He has a history of mild PAD on right leg, resolved systolic dysfunction, diastolic dysfunction, hypertension, dyslipidemia, smoking, ESRD on PD (Since 2021, sees Dr. Marcus). States his BP was low yesterday and felt dizziness and weak. His BP was 79/49 in ER and given IVF which stabilized BP. Reports he has ABDI walking 100 yards. States that PD is not able to pull off enough fluid. He has trace edema of both legs that is worse at end of the day. He quit smoking in 2023. Denies chest pain, sob, orthopnea, PND, dizziness, palpitations. Cardiovascular Procedures Echo/MUGA:: 07/25/24 Echo: EF 55-60%, mild LVH, diastolic dysfunction (E/e' 21), mod LAE, mod MAC, mild MR, trace PI, RVSP 45 mmHg. 04/06/24 Echo: EF 15-20%, mod LVE, grade I diastolic dysfunction (E/e' 14), mod LAE, mod MAC, mild MR. 12/12/22 Echo: EF 60-65%, mild LVH, diastolic dysfunction (E/e' 18), mod LAE, mild VENU, severe posterior MAC, mild MR, trace TR. Electrophysiology:: 01/20/23 EKG: Sinus rhythm, PAC. Stress Tests:: 04/07/24 Lexiscan myoview: Negative. 11/11/22 JAUN right 1.21, TBI 0.59; left JAUN 1.3, TBI 1.05. Review of Systems Review of Systems: All systems reviewed & are unremarkable except as noted in HPI and below Constitutional: Constitutional: Reports as per HPI, Denies chills, Reports fatigue and Denies fever(s) Cardiovascular: Cardiovascular: Reports as per HPI, Denies chest pain and Denies irregular heart rhythm Respiratory: Respiratory: Reports as per HPI and Denies dyspnea Gastrointestinal: Gastrointestinal: Reports as per HPI and Denies abdominal pain Genitourinary: Genitourinary: Reports as per HPI and Denies dysuria Musculoskeletal: Musculoskeletal: Reports as per HPI Neurologic: Reports as per HPI, Reports dizziness and Denies syncope [facility] Past Medical History Medical History Peritoneal dialysis catheter in place Polyneuropathy HTN (hypertension) Vitamin D3 deficiency Surgical History Surgical History History of appendectomy Family History Family History Father Hypertension Social History Social History Social History: Lives alone in an apartment. No pets. Smoking packs per day: 0.25 Smoking cigarettes per day: 5.0 Years smoked: 20 Smoking pack-years: 5.00 Smoking status: Former smoker Alcohol intake: unknown Alcohol use details: rarely Substance use: current Substance use type: marijuana Other substance usage details: OCCASIONAL Do You Feel Safe in your Home?: Yes Lack of Transportation: No Lack of Food: Never True Current Housing: I Have Housing Concerned About Future Housing: No Difficulty Paying Gas/Electric Bills: No Difficulty Paying for Meds: No Currently Unemployed: No Education: Bachelor's Degree Difficulty w/ Childcare or Family Care: No Living arrangements: with family Occupation/Education: unemployed Gender identity (if verbalized by the patient): Male Sexual Orientation (if Verbalized by the Patient): Straight or Heterosexual Spiritual care concerns: No Agree to blood products: Yes Meds Home Medications and Allergies Home Medications ?Medication ?Instructions ?Recorded ?Confirmed ?Type calcium carbonate (Tums) 200 mg PO HS PRN Indigestion 07/20/23 09/27/24 History cinacalcet 30 mg tablet 90 mg PO DAILY 07/20/23 09/27/24 History multivitamin 1 tablet PO DAILY 07/29/23 09/27/24 History ferric citrate 210 mg iron tablet 210 mg PO TIDWM 09/28/23 09/27/24 History (Auryxia) omeprazole 20 mg capsule,delayed 20 mg PO DAILY #90 caps 03/08/24 09/27/24 Rx release escitalopram oxalate 10 mg tablet 10 mg PO DAILY 03/09/24 09/27/24 History albuterol sulfate 90 mcg/actuation 2 inh inhalation QID PRN shortness 03/29/24 09/27/24 History aerosol inhaler of breath or wheezing calcium acetate(phosphat bind) 667 2,668 mg PO TIDWM 03/29/24 09/27/24 History mg capsule ondansetron 4 mg disintegrating 8 mg translingual Q8H PRN nausea 03/29/24 09/27/24 History tablet and vomiting torsemide 100 mg tablet See Rx Instructions .Route 05/08/24 09/27/24 Rx .COMPLEX #30 tabs dapagliflozin propanediol 10 mg 10 mg PO DAILY #30 tabs 05/12/24 09/27/24 Rx tablet (Farxiga) sacubitril 49 mg-valsartan 51 mg 1 tablet PO BID #60 tabs 05/12/24 09/27/24 Rx tablet (Entresto) nortriptyline 50 mg capsule 50 mg PO DAILY #90 caps 05/15/24 09/27/24 Rx diphenoxylate-atropine 2.5 1 tablet PO QID PRN diarrhea #60 05/29/24 09/27/24 Rx mg-0.025 mg tablet tabs hydrocodone 5 mg-acetaminophen 325 1 tablet PO Q8H PRN Pain Rated 08/15/24 09/27/24 Rx mg tablet 4-10 #90 tabs buspirone 10 mg tablet See Rx Instructions .Route 09/11/24 09/27/24 Rx .COMPLEX #90 tabs carvedilol 25 mg tablet 12.5 mg (1/2 x 25 mg) PO Q12H #60 09/22/24 09/27/24 Rx tabs gabapentin 100 mg capsule 100 mg PO TID #90 caps 09/22/24 09/27/24 Rx melatonin 10 mg capsule 20 mg (2 x 10 mg) PO HS PRN 09/22/24 09/27/24 Rx Insomnia #30 caps Allergies Allergy/AdvReac Type Severity Reaction Status Date / Time No Known Allergies Allergy Verified 09/27/24 17:42 Vital Signs Vital Signs - 24 hr 09/27/24 12:22 09/27/24 12:34 09/27/24 16:18 Temperature 98.0 F 98.0 F 97.5 F L Pulse Rate 106 H 103 H 96 Respiratory Rate 20 20 20 Blood Pressure 74/49 L 74/49 L 157/102 H Pulse Oximetry 98 98 96 Oxygen Delivery Room Air Fraction of Inspired Oxygen 09/27/24 17:30 09/27/24 20:00 09/27/24 20:00 Temperature 97.7 F Pulse Rate 90 93 Respiratory Rate 18 Blood Pressure 114/63 Pulse Oximetry 97 Oxygen Delivery Room Air Fraction of Inspired Oxygen 09/27/24 20:26 09/28/24 00:00 09/28/24 04:00 Temperature Pulse Rate 75 98 96 Respiratory Rate 20 Blood Pressure Pulse Oximetry 90 Oxygen Delivery Room Air Fraction of Inspired Oxygen 21 09/28/24 05:51 09/28/24 07:09 09/28/24 08:38 Temperature 97.6 F 97.6 F Pulse Rate 100 100 101 H Respiratory Rate 18 18 Blood Pressure 105/51 L 105/51 L Pulse Oximetry 92 Oxygen Delivery Fraction of Inspired Oxygen Exam Const: General: cooperative, healthy appearing and comfortable Resp: Auscultation: clear to auscultation bilaterally, no crackles, no rales, no rhonchi and no wheezes Cardio: Rate: regular rate Rhythm: regular rhythm Heart sounds: no murmurs Peripheral pulses: dorsalis pedis present GI: GI Palp: No abdominal tenderness and Yes Soft to palpation Neuro: General: oriented to person, oriented to place and oriented to time Extrem: Right lower extremity: edema Left lower extremity: edema Other: Trace edema of both legs Results Labs and Meds 09/27/24 12:42 09/27/24 12:42 Lab results: Cardiac Enzymes 09/27/24 09/27/24 Range/Units 12:42 15:29 AST 33 (17-59) U/L Troponin I 0.029 0.030 (0.000-0.034) ng/mL CBC 09/27/24 Range/Units 12:42 WBC 14.2 H (4.5-10.0) K/mm3 RBC 4.29 L (4.6-6.20) M/mm3 Hgb 13.4 L (14.0-18.0) g/dL Hct 41.3 L (42.0-52.0) % Plt Count 431 H (150-375) k/mm3 Lymph # (Auto) 1.53 (0.9-3.2) K/mm3 [place] # (Auto) 1.4 H (0.1-0.6) K/mm3 Eos # (Auto) 0.7 H (0-0.3) K/mm3 Baso # (Auto) 0.1 (0.0-0.1) K/mm3 Comprehensive Metabolic Panel 09/27/24 Range/Units 12:42 Sodium 128 L (137-145) mmol/L Potassium 3.6 (3.4-5.0) mmol/L Chloride 89 L (98-107) mmol/L Carbon Dioxide 24 (22-30) mmol/L BUN 64 H (9-20) mg/dL Creatinine 12.33 H (0.7-1.3) mg/dL Glucose 122 H (65-110) mg/dL Calcium 9.0 (8.4-10.2) mg/dL AST 33 (17-59) U/L ALT 56 H (6-50) U/L Alkaline Phosphatase 125 (38-126) U/L Total Protein 6.5 (6.3-8.2) g/dL Albumin 3.6 (3.5-5.1) g/dL Intake and Output 09/27/24 09/28/24 09/28/24 23:59 07:59 15:59 Intake Total 480 50 Output Total 2428 Balance 480 -2378 Intake: Oral 480 50 Output: Negative Peritoneal Dialysis 2428 Total Ultra Filtration Patient Weight 09/28/24 23:59 Weight 110.8 kg
[2024-09-28 09:41] LABS: Estimated CRCL calculation 9 ml/min; Estimated Glomerular Filt Rate 5
[2024-09-28] MEDS: SACUBITRIL/VALSARTAN 24-26 MG TABLET 1 TAB PO (10:06)
--- NOTE | 2024-09-28 10:32 | P.CONNP_ITS ---
Assessment and Plan Assessment and plan (1) End stage renal disease: Code(s): N18.6 - End stage renal disease Status: Chronic Assessment and Plan: * continue CCPD while hospitalized * given #2, minimize fluid removal with dialysis treatments * follow electrolytes, volume status, and clearance (2) Hypotension: Code(s): I95.9 - Hypotension, unspecified Status: Acute Assessment and Plan: * as noted on presentation * responded well to IVF resuscitation * possibly due to aggressive fluid removal/ultrafiltration with dialysis on recent hospitalization * follow trend of hemodynamics (3) Anemia: Code(s): D64.9 - Anemia, unspecified Status: Acute Assessment and Plan: * H/H supratherapeutic for ESRD * holding Epogen * follow trend of H/H (4) Hyponatremia: Code(s): E87.1 - Hypo-osmolality and hyponatremia Status: Acute Assessment and Plan: * relatively stable (but fluctuates at baseline) * due to fluctuations in volume status, water intake and renal failure * follow trend of sodium (5) Congestive heart failure: Code(s): I50.9 - Heart failure, unspecified Status: Acute Assessment and Plan: * known history of systolic and diastolic dysfunction * last Echo (July 2024) noted: * left ventricular systolic function is normal, estimated at 55-60% * left ventricular diastolic function is abnormal * mitral valve has a moderately calcified annulus * mild mitral valve regurgitation * mild pulmonary hypertension, estimated pulmonary arterial systolic pressure is 45 mmHg * trace pulmonic regurgitation * appears compensated at this time (6) HTN (hypertension): Code(s): I10 - Essential (primary) hypertension Status: Chronic Assessment and Plan: * despite known history, low BP on presentation * BP medications on hold for now * follow trend of hemodynamics (7) Neuropathy: Code(s): G62.9 - Polyneuropathy, unspecified Status: Acute Assessment and Plan: * known diagnosis * etiology not entirely clear * follows with Neurology as an outpatient (8) Generalized weakness: Code(s): R53.1 - Weakness Status: Acute Assessment and Plan: * related to low BP and possible deconditioning from recent hospitalization * PT/OT as tolerated * continue supportive therapy I will continue to follow the patient with you while he remains hospitalized and make further recommendations as deemed necessary. Thank you for allowing me to participate in the care of this patient. L History of Present Illness Reason for Consult Consult date: 09/28/24 Reason for consult: end stage renal disease Chief Complaint Chief complaint: Hypotension History of Present Illness Narrative: The patient is a 53-year-old male with a past medical history as outlined below who presented to [facility] Emergency Room due to hypotension. Patient went to his PCP yesterday day for his post hospitalization follow-up. While there, he found to be extremely hypotensive with systolic BPs in the 70s range. This further complicated by complaints of dizziness, lightheadedness, and fatigue. He was recently hospitalized here at [facility] for fluid overload requiring aggressive ultrafiltration to optimize his fluid status. He does have a history of orthostatic hypotension in the past requiring midodrine therapy but this was discontinued when had issues with hypertension. Given the severity of his hypotension and associated symptoms, he was transferred to the ER for further assessment. and was sent to the emergency room. Evaluation in the ER confirmed his hypotension with systolic BPs in the mid 70s but he was afebrile. Lab work showed a leukocytosis at 14.2 hemoglobin of 13.4, sodium of 128, chloride of 89, creatinine of 12.33, glucose of 122, lactic acid of 2.1, phosphorus is 7.6, proBNP of 4540. Viral testing for influenza A/B, RSV, COVID was negative. CT chest/abdomen/pelvis demonstrated a small amount of intraperitoneal gas and fluid likely due to peritoneal dialysis with no acute findings found. He was given IV fluid boluses with improvement in his BP and he was noted once again to be orhtostatic. [facility] and [facility]. Since admission, he states he feels a bit better but still not back to baseline, His blood pressure has improved to some degree but he remains relatively hypotensive still. Renal consultation was requested due to his end-stage renal disease on peritoneal dialysis. The patient normally follows with Dr. Xavier Marcus for management of his end-stage renal disease and peritoneal dialysis via [facility]. As mentioned above, he was recently admitted here to [facility] late last month for fluid overload (in associated with significant hypertension) due to problems with his home PD cycler/machine and responded to aggressive peritoneal dialysis. With the aggressive fluid removal noted during that hospital stay, his blood pressure normalized. Currently, at the time my evaluation, he tolerated peritoneal dialysis overnight without any issues or problems (CCPD supervised and seen at 10:20am) and appears to be in no acute distress. Review of Systems 2 Review of Systems: As per HPI. [facility] Past Medical History Medical History Peritoneal dialysis catheter in place Polyneuropathy HTN (hypertension) Vitamin D3 deficiency Surgical History Surgical History History of appendectomy Family History Family History Father Hypertension Social History Social History Social History: Lives alone in an apartment. No pets. Smoking packs per day: 0.25 Smoking cigarettes per day: 5.0 Years smoked: 20 Smoking pack-years: 5.00 Smoking status: Former smoker Alcohol intake: unknown Alcohol use details: rarely Substance use: current Substance use type: marijuana Other substance usage details: OCCASIONAL Do You Feel Safe in your Home?: Yes Lack of Transportation: No Lack of Food: Never True Current Housing: I Have Housing Concerned About Future Housing: No Difficulty Paying Gas/Electric Bills: No Difficulty Paying for Meds: No Currently Unemployed: No Education: Bachelor's Degree Difficulty w/ Childcare or Family Care: No Living arrangements: with family Occupation/Education: unemployed Gender identity (if verbalized by the patient): Male Sexual Orientation (if Verbalized by the Patient): Straight or Heterosexual Spiritual care concerns: No Agree to blood products: Yes Meds Home Medications and Allergies Home Medications ?Medication ?Instructions ?Recorded ?Confirmed ?Type calcium carbonate (Tums) 200 mg PO HS PRN Indigestion 07/20/23 09/27/24 History cinacalcet 30 mg tablet 90 mg PO DAILY 07/20/23 09/27/24 History multivitamin 1 tablet PO DAILY 07/29/23 09/27/24 History ferric citrate 210 mg iron tablet 210 mg PO TIDWM 09/28/23 09/27/24 History (Auryxia) omeprazole 20 mg capsule,delayed 20 mg PO DAILY #90 caps 03/08/24 09/27/24 Rx release escitalopram oxalate 10 mg tablet 10 mg PO DAILY 03/09/24 09/27/24 History albuterol sulfate 90 mcg/actuation 2 inh inhalation QID PRN shortness 03/29/24 09/27/24 History aerosol inhaler of breath or wheezing calcium acetate(phosphat bind) 667 2,668 mg PO TIDWM 03/29/24 09/27/24 History mg capsule ondansetron 4 mg disintegrating 8 mg translingual Q8H PRN nausea 03/29/24 09/27/24 History tablet and vomiting torsemide 100 mg tablet See Rx Instructions .Route 05/08/24 09/27/24 Rx .COMPLEX #30 tabs dapagliflozin propanediol 10 mg 10 mg PO DAILY #30 tabs 05/12/24 09/27/24 Rx tablet (Farxiga) sacubitril 49 mg-valsartan 51 mg 1 tablet PO BID #60 tabs 05/12/24 09/27/24 Rx tablet (Entresto) nortriptyline 50 mg capsule 50 mg PO DAILY #90 caps 05/15/24 09/27/24 Rx diphenoxylate-atropine 2.5 1 tablet PO QID PRN diarrhea #60 05/29/24 09/27/24 Rx mg-0.025 mg tablet tabs hydrocodone 5 mg-acetaminophen 325 1 tablet PO Q8H PRN Pain Rated 08/15/24 09/27/24 Rx mg tablet 4-10 #90 tabs buspirone 10 mg tablet See Rx Instructions .Route 09/11/24 09/27/24 Rx .COMPLEX #90 tabs carvedilol 25 mg tablet 12.5 mg (1/2 x 25 mg) PO Q12H #60 09/22/24 09/27/24 Rx tabs gabapentin 100 mg capsule 100 mg PO TID #90 caps 09/22/24 09/27/24 Rx melatonin 10 mg capsule 20 mg (2 x 10 mg) PO HS PRN 09/22/24 09/27/24 Rx Insomnia #30 caps Allergies Allergy/AdvReac Type Severity Reaction Status Date / Time No Known Allergies Allergy Verified 09/27/24 17:42 Vital Signs Vital Signs Temp Pulse Resp BP Pulse Ox O2 Del Method FiO2 09/28/24 10:04 100 09/28/24 08:35 Room Air 09/28/24 08:05 94 09/28/24 07:09 97.6 F 100 18 105/51 L 09/28/24 05:51 97.6 F 100 18 105/51 L 92 09/28/24 04:00 96 09/28/24 00:00 98 09/27/24 20:26 75 20 90 Room Air 21 09/27/24 20:00 93 09/27/24 20:00 97.7 F 90 18 114/63 97 09/27/24 17:30 Room Air 09/27/24 16:18 97.5 F L 96 20 157/102 H 96 Exam 2 Narrative: GENERAL APPEARANCE: well developed well nourished male in no acute distress HEENT: normocephalic, atraumatic, normal conjunctiva and sclera, nares patient NECK: no lymphadenopathy, thyromegaly, or JVD MOUTH: normal lips, teeth, and gums CARDIOVASCULAR: RRR, normal S1 and S2, no rub RESPIRATORY: clear anteriorly; decreased at bases ABDOMEN: soft, nontender, nondistended, positive bowel sounds present; PD catheter C/D/I EXTREMITIES: no evidence of cyanosis, clubbing, or edema NEUROLOGICAL: alert and oriented x 3; CN II - XII intact bilaterally; no focal deficits noted Results Lab Results 09/27/24 12:42 09/28/24 09:07 Lab results: Most recent lab results Calcium 9.0 mg/dL (8.4-10.2) 09/27/24 12:42 Phosphorus 7.6 mg/dL (2.5-4.5) H 09/27/24 12:42 Magnesium 1.8 mg/dL (1.6-2.3) 09/27/24 12:42
[2024-09-28] MEDS: CEFEPIME 1 GM in SODIUM CHLORIDE 0.9% IV 50 ML 100 ML IVPB (13:09)
[2024-09-28] MEDS: VANCOMYCIN 1,750 MG/NS 500 ML 1,750 MG/500 ML BAG 250 MG IVPB (14:00)
[2024-09-28] MEDS: DIPHENOXYLATE/ATROPINE (*CRX) 2.5 MG TABLET 1 TABLET PO (15:42)
[2024-09-28] MEDS: SODIUM CHLORIDE 0.9% IV 500 ML IV CONT (17:08)
[2024-09-28 20:01] LABS: Appearance Peritoneal Fluid Hazy (Clear); Color Peritoneal Fluid Yellow (Colorless); Nucleated Cells Peritoneal Flu 465 /uL (0-500); Source Peritoneal Fluid Peritoneal Fluid
[2024-09-28 20:15] LABS: Eosinophils Peritoneal Fluid 7 %; Lymphocytes Peritoneal Fluid 12 %; Macrophages Peritoneal Fluid 5 %; Mesothelial Cells Peritoneal Fluid 2 %; Monocytes Peritoneal Fluid 66 %; Neutrophils Peritoneal Fluid 8 % (0-25)
[2024-09-28] MEDS: HYDROcodone/acetaminophen (*CRX) 5-325 MG TABLET 1 TAB PO (21:06)
[2024-09-29] VITALS (15 sets, daily range): BP systolic 89–134; BP diastolic 69–80; PULSE 69–96; RESP 16–18; TEMP 36.6–36.8; O2SAT 93–98
--- NOTE | 2024-09-29 07:53 | P.PNCA_ITS ---
Progress Note: A&P Assessment and Plan (1) Acute hypotension: Code(s): I95.9 - Hypotension, unspecified Status: Acute Assessment and Plan: BP stable. Resolved with IVF. Changed Coreg to Metoprolol 12.5 mg BID and changed Entresto to Losartan 12.5 mg daily. Stopped Jardiance. He is on these for systolic dysfunction which have resolved but can return. No further cardiac workup. Will sign off, please call with any questions. (2) Diastolic dysfunction: Code(s): I51.89 - Other ill-defined heart diseases Status: Acute Assessment and Plan: Fluid level managed with PD. (3) Dyslipidemia: Code(s): E78.5 - Hyperlipidemia, unspecified Status: Acute Subjective Date/time seen: 09/29/24 07:53 Interval history: No dizziness this morning. No chest pain or sob. Exam Const: General: cooperative, healthy appearing and comfortable Orientation/consciousness: oriented to person, oriented to place and oriented to time Resp: Auscultation: clear to auscultation bilaterally, no crackles, no rales, no rhonchi and no wheezes Cardio: Rate: regular rate Rhythm: regular rhythm Heart sounds: no murmurs Peripheral pulses: dorsalis pedis present Neuro: General: oriented to person, oriented to place and oriented to time Extrem: Right lower extremity: edema Left lower extremity: edema Other: Trace edema of both legs Objective Data Vital Signs Vital Signs: Vital Signs - 24 hr 09/28/24 08:05 09/28/24 08:35 09/28/24 10:04 Temperature Pulse Rate 94 100 Respiratory Rate Blood Pressure Pulse Oximetry Oxygen Delivery Room Air 09/28/24 12:00 09/28/24 12:40 09/28/24 12:43 Temperature Pulse Rate 91 95 98 Respiratory Rate Blood Pressure 99/57 L 78/54 L Pulse Oximetry 96 98 Oxygen Delivery 09/28/24 12:46 09/28/24 14:00 09/28/24 16:05 Temperature 97.9 F Pulse Rate 92 87 Respiratory Rate 19 Blood Pressure 86/59 L 84/57 L Pulse Oximetry 98 Oxygen Delivery 09/28/24 20:00 09/28/24 20:57 09/28/24 21:57 Temperature 97.8 F Pulse Rate 89 88 88 Respiratory Rate 16 Blood Pressure 108/61 108/61 Pulse Oximetry 94 Oxygen Delivery 09/29/24 00:00 09/29/24 00:55 09/29/24 04:00 Temperature 98.0 F Pulse Rate 84 69 86 Respiratory Rate 18 Blood Pressure 134/80 Pulse Oximetry 98 Oxygen Delivery 09/29/24 06:00 Temperature 97.8 F Pulse Rate 90 Respiratory Rate 16 Blood Pressure 115/70 Pulse Oximetry 95 Oxygen Delivery Intake/Output Intake/Output: Intake & Output 09/26/24 09/27/24 09/28/24 09/29/24 23:59 23:59 23:59 23:59 Intake Total 3530 2214 400 Output Total 2428 Balance 3530 -214 400 Meds/Results Medications: Active Medications Generic Name Dose Route Start Last Admin Trade Name Freq PRN Reason Stop Dose Admin Hydrocodone Bitart/Acetaminophen 1 tab 09/27/24 20:15 09/28/24 21:06 Hydrocodone/Acetaminophen (*Crx) 5-325 Mg Tablet PO 1 tab Q8H PRN Administration Pain Rated 4-10 Albuterol 2 puff 09/27/24 18:54 Albuterol Sulfate (*Sp) Aerosol 1 Puff INHALATION QID PRN shortness of breath or wheezing Buspirone HCl 10 mg 09/27/24 22:00 09/29/24 05:35 Buspirone Hcl 10 Mg Tablet BY MOUTH 10 mg Q8HR CARIDAD Administration Calcium Acetate 2,668 mg 09/28/24 08:00 09/28/24 17:08 Calcium Acetate 667 Mg Tablet PO 2,668 mg TIDWM CARIDAD Administration Cinacalcet 90 mg 09/28/24 08:00 09/28/24 08:36 Cinacalcet 30 Mg Tablet PO 90 mg DAILY@0800 CARIDAD Administration Diphenoxylate HCl/Atropine 1 tablet 09/28/24 15:26 09/28/24 15:42 Diphenoxylate/Atropine (*Crx) 2.5 Mg Tablet PO 1 tablet QID PRN Administration diarrhea Escitalopram Oxalate 10 mg 09/28/24 09:00 09/28/24 08:37 Escitalopram Oxalate 10 Mg Tablet PO 10 mg DAILY CARIDAD Administration Gabapentin 100 mg 09/27/24 19:20 09/28/24 17:08 Gabapentin 100 Mg Capsule PO 100 mg TID CARIDAD Administration Gentamicin Sulfate 1 applic 09/27/24 21:00 09/28/24 21:08 Gentamicin Sulfate 0.1% Cr 15 Gm Tube TOPICAL Not Given QHS CARIDAD Cefepime HCl 1 gm/ Sodium 50 mls @ 100 mls/hr 09/27/24 14:00 09/28/24 14:01 Chloride IVPB Infused Q24H ON LICENSE OF [facility] Infusion Lidocaine 1 patch 09/29/24 09:00 Lidocaine 5% Patch TRANSDERM DAILY CARIDAD Losartan Potassium 12.5 mg 09/29/24 09:00 Losartan Potassium 12.5 Mg Tablet PO DAILY CARIDAD Melatonin 20 mg 09/27/24 18:54 Melatonin 5 Mg Tablet PO HS PRN Insomnia Metoprolol Tartrate 12.5 mg 09/28/24 21:00 09/28/24 21:07 Metoprolol Tartrate 12.5 Mg Tablet PO Not Given Q12HR CARIDAD Nortriptyline HCl 50 mg 09/28/24 09:00 09/28/24 08:37 Nortriptyline Hcl 25 Mg Capsule PO 50 mg DAILY CARIDAD Administration Ondansetron HCl 4 mg 09/27/24 17:22 09/28/24 13:09 Ondansetron Inj 4 Mg/2 Ml Vial IV PUSH 4 mg Q4H PRN Administration Nausea And Vomiting Pantoprazole Sodium 40 mg 09/28/24 09:00 09/28/24 08:37 Pantoprazole 40 Mg Tablet PO 40 mg QAM CARIDAD Administration Vancomycin HCl 1 each 09/27/24 14:08 Vancomycin For Peritoneal Dialysis IVPB PRN PRN Vancomycin Protocol Radiology Results: ITS Impressions Chest X-Ray 09/27/24 13:05 IMPRESSION: 1. Mild pulmonary edema in the bilateral mid and lower lung zones. Chest/Abdomen/Pelvis CT 09/27/24 14:34 IMPRESSION: 1. Small amount of free intraperineal gas and small to moderate amount of ascites in the abdomen and pelvis related to peritoneal dialysis with dialysis catheter coiled in the deep pelvis. No other acute intra-abdominal/pelvic process. 2. No acute cardiopulmonary disease. 3. Moderate to severe bilateral renal atrophy. 4. No interval change in a few small pulmonary nodules the with lower lung predominance, the 2 largest measuring 6 mm in the right lower lobe. Consider additional 1 year follow-up low-dose noncontrast chest CT. Labs Labs: Laboratory Results - last 24 hr 09/28/24 09/28/24 09:07 19:15 Creatinine 10.97 H Estim Creat Clear Calc 9 Estimated GFR 5 L Peritoneal Source Peritoneal fluid Peritoneal Color Yellow Peritoneal Appearance Hazy A Peritoneal RBC < 2000 Periton Nuc Cells 465 Periton Neutrophils 8 Periton Lymphocytes 12 Peritoneal Monocytes 66 Peritoneal Eosinophils 7 Periton Mesothelial 2 Periton Macrophages 5 Random Vancomycin 19.2
[2024-09-29] MEDS: NORTRIPTYLINE HCL 25 MG CAPSULE 50 MG PO (08:40)
[2024-09-29] MEDS: PANTOPRAZOLE 40 MG TABLET PO (08:40)
[2024-09-29] MEDS: CINACALCET 30 MG TABLET 90 MG PO (08:41)
[2024-09-29] MEDS: ESCITALOPRAM OXALATE 10 MG TABLET PO (08:41)
[2024-09-29] MEDS: GABAPENTIN 100 MG CAPSULE PO ×3 (08:42→17:29)
[2024-09-29] MEDS: LOSARTAN POTASSIUM 12.5 MG TABLET PO (08:42)
[2024-09-29] MEDS: LIDOCAINE 5% PATCH 1 PATCH TRANSDERM (08:42)
[2024-09-29] MEDS: METOPROLOL TARTRATE 12.5 MG TABLET PO (08:42)
[2024-09-29 09:03] LABS: Hematocrit 34.8 % (42.0-52.0); Hemoglobin 11.0 g/dL (14.0-18.0); Immature Granulocyte Percent A 0.3 % (0-0.5); Lymphocytes Absolute Auto 1.81 K/mm3 (0.9-3.2); Mean Corpuscular HGB Conc 31.6 g/dl (32-36); Mean Corpuscular Hemoglobin 31.2 pg (26-34); Mean Corpuscular Volume 98.6 fl (80-100); Nucleated Red Blood Cells Absolute Auto 0.000 K/mm3 (0.0-0.012); Nucleated Red Blood Cells Perc 0.0 % (0.0-0.2); Platelet Count Result 348 k/mm3 (150-375); Red Blood Count 3.53 M/mm3 (4.6-6.20); White Blood Count 13.6 K/mm3 (4.5-10.0)
[2024-09-29 09:30] LABS: Albumin Level 2.9 g/dL (3.5-5.1); Anion Gap 11 mmol/L (4-12); Blood Urea Nitrogen 52 mg/dL (9-20); Calcium 7.9 mg/dL (8.4-10.2); Carbon Dioxide 25 mmol/L (22-30); Chloride 94 mmol/L (98-107); Estimated CRCL calculation 9 ml/min; Estimated Glomerular Filt Rate 5; Glucose 88 mg/dL (65-110); Potassium 3.5 mmol/L (3.4-5.0); Sodium 130 mmol/L (137-145)
[2024-09-29] MEDS: CALCIUM ACETATE 667 MG TABLET 2668 MG PO ×2 (12:14→17:29)
--- NOTE | 2024-09-29 12:34 | P.PNNP_ITS ---
Progress Note: A&P Assessment and Plan (1) End stage renal disease: Code(s): N18.6 - End stage renal disease Status: Chronic Assessment and Plan: * continue CCPD while hospitalized * given #2, minimize fluid removal with dialysis treatments * bp better today after doing PD with only yellow bags. * Yamileth will call me with bp reading this pm and we will decide what bags to use tonight. (2) Hypotension: Code(s): I95.9 - Hypotension, unspecified Status: Acute Assessment and Plan: * as noted on presentation * responded well to IVF resuscitation * possibly due to aggressive fluid removal/ultrafiltration with dialysis on recent hospitalization * Bp better today (3) Anemia: Code(s): D64.9 - Anemia, unspecified Status: Acute Assessment and Plan: * H/H supratherapeutic for ESRD * holding Epogen * follow trend of H/H (4) Hyponatremia: Code(s): E87.1 - Hypo-osmolality and hyponatremia Status: Acute Assessment and Plan: * relatively stable (but fluctuates at baseline) * due to fluctuations in volume status, water intake and renal failure * follow trend of sodium (5) Congestive heart failure: Code(s): I50.9 - Heart failure, unspecified Status: Acute Assessment and Plan: * known history of systolic and diastolic dysfunction * last Echo (July 2024) noted: * left ventricular systolic function is normal, estimated at 55-60% * left ventricular diastolic function is abnormal * mitral valve has a moderately calcified annulus * mild mitral valve regurgitation * mild pulmonary hypertension, estimated pulmonary arterial systolic pressure is 45 mmHg * trace pulmonic regurgitation * appears compensated at this time (6) HTN (hypertension): Code(s): I10 - Essential (primary) hypertension Status: Chronic Assessment and Plan: * despite known history, low BP on presentation * BP medications on hold for now * follow trend of hemodynamics (7) Neuropathy: Code(s): G62.9 - Polyneuropathy, unspecified Status: Acute Assessment and Plan: * known diagnosis * etiology not entirely clear * follows with Neurology as an outpatient (8) Generalized weakness: Code(s): R53.1 - Weakness Status: Acute Assessment and Plan: * related to low BP and possible deconditioning from recent hospitalization * PT/OT as tolerated * continue supportive therapy Subjective Date/time seen: 09/29/24 12:34 Interval history: alert. feels better not as light headed as yesterday on PD and rita it well. seen at 10am Review of Systems Cardiovascular: Cardiovascular: Reports no additional cardiovascular complaints Respiratory: Respiratory: Reports no additional respiratory complaints Gastrointestinal: Gastrointestinal: Reports no additional gastrointestinal complaints Genitourinary: Genitourinary: Reports no additional male genitourinary complaints Exam Narrative: WDWN in NAD skin no rash head ncat lungs clear cor reg no rub abd BS+ nontender and soft ext 1+ bilateral edema. Objective Data Vital Signs Vital Signs: Vital Signs - 24 hr 09/28/24 12:40 09/28/24 12:43 09/28/24 12:46 Temperature Pulse Rate 95 98 Respiratory Rate Blood Pressure 99/57 L 78/54 L 86/59 L Pulse Oximetry 96 98 Oxygen Delivery 09/28/24 14:00 09/28/24 16:05 09/28/24 20:00 Temperature 97.9 F Pulse Rate 92 87 89 Respiratory Rate 19 Blood Pressure 84/57 L Pulse Oximetry 98 Oxygen Delivery 09/28/24 20:57 09/28/24 21:57 09/29/24 00:00 Temperature 97.8 F Pulse Rate 88 88 84 Respiratory Rate 16 Blood Pressure 108/61 108/61 Pulse Oximetry 94 Oxygen Delivery 09/29/24 00:55 09/29/24 04:00 09/29/24 06:00 Temperature 98.0 F 97.8 F Pulse Rate 69 86 90 Respiratory Rate 18 16 Blood Pressure 134/80 115/70 Pulse Oximetry 98 95 Oxygen Delivery 09/29/24 08:00 09/29/24 08:05 09/29/24 08:40 Temperature 97.8 F Pulse Rate 90 88 Respiratory Rate 16 Blood Pressure 115/70 Pulse Oximetry Oxygen Delivery Room Air 09/29/24 08:42 09/29/24 12:00 Temperature Pulse Rate 92 86 Respiratory Rate Blood Pressure Pulse Oximetry Oxygen Delivery Intake/Output Intake/Output: Intake & Output 09/26/24 09/27/24 09/28/24 09/29/24 23:59 23:59 23:59 23:59 Intake Total 3530 2214 880 Output Total 1611 154 Balance 3530 -214 726 Meds/Results Medications: Active Medications Generic Name Dose Route Start Last Admin Trade Name Freq PRN Reason Stop Dose Admin Hydrocodone Bitart/Acetaminophen 1 tab 09/27/24 20:15 09/28/24 21:06 Hydrocodone/Acetaminophen (*Crx) 5-325 Mg Tablet PO 1 tab Q8H PRN Administration Pain Rated 4-10 Albuterol 2 puff 09/27/24 18:54 Albuterol Sulfate (*Sp) Aerosol 1 Puff INHALATION QID PRN shortness of breath or wheezing Buspirone HCl 10 mg 09/27/24 22:00 09/29/24 05:35 Buspirone Hcl 10 Mg Tablet BY MOUTH 10 mg Q8HR CARIDAD Administration Calcium Acetate 2,668 mg 09/28/24 08:00 09/29/24 12:14 Calcium Acetate 667 Mg Tablet PO 2,668 mg TIDWM CARIDAD Administration Cinacalcet 90 mg 09/28/24 08:00 09/29/24 08:41 Cinacalcet 30 Mg Tablet PO 90 mg DAILY@0800 CARIDAD Administration Diphenoxylate HCl/Atropine 1 tablet 09/28/24 15:26 09/28/24 15:42 Diphenoxylate/Atropine (*Crx) 2.5 Mg Tablet PO 1 tablet QID PRN Administration diarrhea Escitalopram Oxalate 10 mg 09/28/24 09:00 09/29/24 08:41 Escitalopram Oxalate 10 Mg Tablet PO 10 mg DAILY CARIDAD Administration Gabapentin 100 mg 09/27/24 19:20 09/29/24 12:14 Gabapentin 100 Mg Capsule PO 100 mg TID CARIDAD Administration Gentamicin Sulfate 1 applic 09/27/24 21:00 09/28/24 21:08 Gentamicin Sulfate 0.1% Cr 15 Gm Tube TOPICAL Not Given QHS [facility] Cefepime HCl 1 gm/ Sodium 50 mls @ 100 mls/hr 09/27/24 14:00 09/28/24 14:01 Chloride IVPB Infused Q24H [facility] Infusion Lidocaine 1 patch 09/29/24 09:00 09/29/24 08:42 Lidocaine 5% Patch TRANSDERM 1 patch DAILY CARIDAD Administration Losartan Potassium 12.5 mg 09/29/24 09:00 09/29/24 08:42 Losartan Potassium 12.5 Mg Tablet PO 12.5 mg DAILY CARIDAD Administration Melatonin 20 mg 09/27/24 18:54 Melatonin 5 Mg Tablet PO HS PRN Insomnia Metoprolol Tartrate 12.5 mg 09/28/24 21:00 09/29/24 08:42 Metoprolol Tartrate 12.5 Mg Tablet PO 12.5 mg Q12HR CARIDAD Administration Nortriptyline HCl 50 mg 09/28/24 09:00 09/29/24 08:40 Nortriptyline Hcl 25 Mg Capsule PO 50 mg DAILY CARIDAD Administration Ondansetron HCl 4 mg 09/27/24 17:22 09/28/24 13:09 Ondansetron Inj 4 Mg/2 Ml Vial IV PUSH 4 mg Q4H PRN Administration Nausea And Vomiting Pantoprazole Sodium 40 mg 09/28/24 09:00 09/29/24 08:40 Pantoprazole 40 Mg Tablet PO 40 mg QAM CARIDAD Administration Radiology Results: ITS Impressions Chest X-Ray 09/27/24 13:05 IMPRESSION: 1. Mild pulmonary edema in the bilateral mid and lower lung zones. Chest/Abdomen/Pelvis CT 09/27/24 14:34 IMPRESSION: 1. Small amount of free intraperineal gas and small to moderate amount of ascites in the abdomen and pelvis related to peritoneal dialysis with dialysis catheter coiled in the deep pelvis. No other acute intra-abdominal/pelvic process. 2. No acute cardiopulmonary disease. 3. Moderate to severe bilateral renal atrophy. 4. No interval change in a few small pulmonary nodules the with lower lung predominance, the 2 largest measuring 6 mm in the right lower lobe. Consider additional 1 year follow-up low-dose noncontrast chest CT. Labs Labs: Laboratory Results - last 24 hr 09/28/24 09/29/24 19:15 08:58 WBC 13.6 H RBC 3.53 L Hgb 11.0 L Hct 34.8 L MCV 98.6 MCH 31.2 MCHC 31.6 L RDW 13.3 Plt Count 348 MPV 8.6 Immature Gran % (Auto) 0.3 Neut % (Auto) 68.1 Lymph % (Auto) 13.3 L Norton % (Auto) 10.4 H Eos % (Auto) 7.4 H Baso % (Auto) 0.5 Lymph # (Auto) 1.81 Norton # (Auto) 1.4 H Eos # (Auto) 1.0 H Baso # (Auto) 0.1 Abs Immat Gran (auto) 0.04 H Absolute Neuts (auto) 9.2 H Absolute Nucleated RBC 0.000 Nucleated RBC % 0.0 Sodium 130 L Potassium 3.5 Chloride 94 L Carbon Dioxide 25 Anion Gap 11 BUN 52 H D Creatinine 10.78 H Estim Creat Clear Calc 9 Estimated GFR 5 L Glucose 88 Calcium 7.9 L Phosphorus 6.3 H Albumin 2.9 L Peritoneal Source Peritoneal fluid Peritoneal Color Yellow Peritoneal Appearance Hazy A Peritoneal RBC < 2000 Periton Nuc Cells 465 Periton Neutrophils 8 Periton Lymphocytes 12 Peritoneal Monocytes 66 Peritoneal Eosinophils 7 Periton Mesothelial 2 Periton Macrophages 5
[2024-09-29] MEDS: CEFEPIME 1 GM in SODIUM CHLORIDE 0.9% IV 50 ML 100 ML IVPB (14:17)
--- NOTE | 2024-09-29 15:34 | P.PNIM_ITS ---
Progress Note: A&P Assessment and Plan (1) Sepsis: Qualifiers: Sepsis acute organ dysfunction status: unspecified Sepsis type: sepsis due to unspecified organism Qualified Code(s): A41.9 - Sepsis, unspecified o rganism Code(s): A41.9 - Sepsis, unspecified organism Status: Resolved Assessment and Plan: BP 74/42 s/p fluids. No cough or fevers. Lungs are clear and no evidence of infectious process on CT chest abdomen pelvis. Treating for sepsis. WBC elevated, 14. Lactate elevated 2.1, Na low, 128. Started on empiric Vanc, Cefepime. Stop Vanc since MRSA swab negative and no clear source of infection --Blood cultures x2 pending 09/27 --Cell count 465 nuc cells, Peritoneal fluid culture pending --Only makes a normal amount of urine, a few mls every 3-4 days. Patient declined straight cath. Reports his last urine was normal not cloudy no dysuria. Also notes that his peritoneal dialysis fluid was not cloudy with his last exchange. Check UA with next PD exchange. --reports nausea and abdominal cramping with watery diarrhea. Generally takes Lomotil at home. Continue. Check stool for C diff and culture that have previously been negative. Diarrhea may be related to PD. Discussed that nausea may be 2/2 hypotension but adding zofran prn --blood pressure still low, 80s. May be related to fluid losses, but white count also elevated --continue empiric cefepime. Stop vancomycin -- Blood cultures are pending --Trend WBC, improving and lactate improved (2) Leukocytosis: Code(s): D72.829 - Elevated white blood cell count, unspecified Status: Acute Assessment and Plan: 18>13 (3) Acute hypotension: Code(s): I95.9 - Hypotension, unspecified Status: Acute Assessment and Plan: Blood pressure in emergency room was 74/49, improved after fluid bolus Fluid bolus given emergency room with improvement Hold antihypertensive medications 500ml fluids yesterday.Blood pressures improved today, but still orthostatic. 500ml NS today (4) Generalized weakness: Code(s): R53.1 - Weakness Status: Acute Assessment and Plan: PT OT evaluate and treat Orthostatic vital signs (5) HTN (hypertension): Code(s): I10 - Essential (primary) hypertension Status: Chronic Assessment and Plan: Hold antihypertensives at this time (6) Diastolic dysfunction: Code(s): I51.89 - Other ill-defined heart diseases Status: Acute Assessment and Plan: Cardiology consulted for possible medication adjustment Holding carvedilol Stop Farxiga/Jardiance since anuric. Likely no benefit (7) End-stage renal disease on peritoneal dialysis: Code(s): N18.6 - End stage renal disease; Z99.2 - Dependence on renal dialysis Status: Acute Assessment and Plan: Nephrology consulted Peritoneal dialysis (8) Hyponatremia: Code(s): E87.1 - Hypo-osmolality and hyponatremia Status: Acute Assessment and Plan: PD per renal Time Spent With Patient Time: 57 minutes Subjective Date/time seen: 09/29/24 15:34 Interval history: Having right ear pain, hearing loss for 2 weeks. WBC elevated Blood pressures improved today but still orthostatic (108/69>96/73>89/70) Review of Systems Review of Systems: 12 systems were reviewed and are negativ e except for as per HPI. Exam Narrative: General - Awake and alert. No acute distress Eyes - PERRLA, EOM intact ENT - No thrush, No erythema Left tympanic membrane normal, right TM dark discoloration and perforation Neck - No noticeable or palpable swelling Lymph Nodes - No lymphadenopathy Cardiovascular - RRR no m/r/g, no JVD Lungs: Clear to auscultation, No wheezing, use of accessory muscles, no crackles Skin - Skin warm and dry, no wounds or rashes Abdomen - Normal bowel sounds, abdomen soft and nontender Extremities - No edema, cyanosis or clubbing Musculoskeletal - 5/5 strength, normal range of motion, no swollen or erythematous joints. Neurological ? Alert and oriented x 3, CN 2-12 grossly intact. Psych: Normal mood and affect Objective Data Vital Signs Vital Signs: Vital Signs - 24 hr 09/28/24 16:05 09/28/24 20:00 09/28/24 20:57 Temperature Pulse Rate 87 89 88 Respiratory Rate Blood Pressure 108/61 Pulse Oximetry Oxygen Delivery 09/28/24 21:57 09/29/24 00:00 09/29/24 00:55 Temperature 97.8 F 98.0 F Pulse Rate 88 84 69 Respiratory Rate 16 18 Blood Pressure 108/61 134/80 Pulse Oximetry 94 98 Oxygen Delivery 09/29/24 04:00 09/29/24 06:00 09/29/24 08:00 Temperature 97.8 F 97.8 F Pulse Rate 86 90 90 Respiratory Rate 16 16 Blood Pressure 115/70 115/70 Pulse Oximetry 95 Oxygen Delivery 09/29/24 08:05 09/29/24 08:40 09/29/24 08:42 Temperature Pulse Rate 88 92 Respiratory Rate Blood Pressure Pulse Oximetry Oxygen Delivery Room Air 09/29/24 12:00 Temperature Pulse Rate 86 Respiratory Rate Blood Pressure Pulse Oximetry Oxygen Delivery Intake/Output Intake/Output: Intake & Output 09/26/24 09/27/24 09/28/24 09/29/24 23:59 23:59 23:59 23:59 Intake Total 3530 2214 880 Output Total 2998 154 Balance 3530 -214 726 Meds/Results Medications: Active Medications Generic Name Dose Route Start Last Admin Trade Name Freq PRN Reason Stop Dose Admin Hydrocodone Bitart/Acetaminophen 1 tab 09/27/24 20:15 09/28/24 21:06 Hydrocodone/Acetaminophen (*Crx) 5-325 Mg Tablet PO 1 tab Q8H PRN Administration Pain Rated 4-10 Albuterol 2 puff 09/27/24 18:54 Albuterol Sulfate (*Sp) Aerosol 1 Puff INHALATION QID PRN shortness of breath or wheezing Buspirone HCl 10 mg 09/27/24 22:00 09/29/24 14:17 Buspirone Hcl 10 Mg Tablet BY MOUTH 10 mg Q8HR CARIDAD Administration Calcium Acetate 2,668 mg 09/28/24 08:00 09/29/24 12:14 Calcium Acetate 667 Mg Tablet PO 2,668 mg TIDWM CARIDAD Administration Cinacalcet 90 mg 09/28/24 08:00 09/29/24 08:41 Cinacalcet 30 Mg Tablet PO 90 mg DAILY@0800 CARIDAD Administration Diphenoxylate HCl/Atropine 1 tablet 09/28/24 15:26 09/28/24 15:42 Diphenoxylate/Atropine (*Crx) 2.5 Mg Tablet PO 1 tablet QID PRN Administration diarrhea Escitalopram Oxalate 10 mg 09/28/24 09:00 09/29/24 08:41 Escitalopram Oxalate 10 Mg Tablet PO 10 mg DAILY CARIDAD Administration Gabapentin 100 mg 09/27/24 19:20 09/29/24 12:14 Gabapentin 100 Mg Capsule PO 100 mg TID CARIDAD Administration Gentamicin Sulfate 1 applic 09/27/24 21:00 09/28/24 21:08 Gentamicin Sulfate 0.1% Cr 15 Gm Tube TOPICAL Not Given QHS CARIDAD Cefepime HCl 1 gm/ Sodium 50 mls @ 100 mls/hr 09/27/24 14:00 09/29/24 14:17 Chloride IVPB 100 mls/hr Q24H CARIDAD Administration Lidocaine 1 patch 09/29/24 09:00 09/29/24 08:42 Lidocaine 5% Patch TRANSDERM 1 patch DAILY CARIDAD Administration Losartan Potassium 12.5 mg 09/29/24 09:00 09/29/24 08:42 Losartan Potassium 12.5 Mg Tablet PO 12.5 mg DAILY CARIDAD Administration Melatonin 20 mg 09/27/24 18:54 Melatonin 5 Mg Tablet PO HS PRN Insomnia Metoprolol Tartrate 12.5 mg 09/28/24 21:00 09/29/24 08:42 Metoprolol Tartrate 12.5 Mg Tablet PO 12.5 mg Q12HR CARIDAD Administration Nortriptyline HCl 50 mg 09/28/24 09:00 09/29/24 08:40 Nortriptyline Hcl 25 Mg Capsule PO 50 mg DAILY CARIDAD Administration Ondansetron HCl 4 mg 09/27/24 17:22 09/28/24 13:09 Ondansetron Inj 4 Mg/2 Ml Vial IV PUSH 4 mg Q4H PRN Administration Nausea And Vomiting Pantoprazole Sodium 40 mg 09/28/24 09:00 09/29/24 08:40 Pantoprazole 40 Mg Tablet PO 40 mg QAM CARIDAD Administration Radiology Results: ITS Impressions Chest X-Ray 09/27/24 13:05 IMPRESSION: 1. Mild pulmonary edema in the bilateral mid and lower lung zones. Chest/Abdomen/Pelvis CT 09/27/24 14:34 IMPRESSION: 1. Small amount of free intraperineal gas and small to moderate amount of ascites in the abdomen and pelvis related to peritoneal dialysis with dialysis catheter coiled in the deep pelvis. No other acute intra-abdominal/pelvic process. 2. No acute cardiopulmonary disease. 3. Moderate to severe bilateral renal atrophy. 4. No interval change in a few small pulmonary nodules the with lower lung predominance, the 2 largest measuring 6 mm in the right lower lobe. Consider additional 1 year follow-up low-dose noncontrast chest CT. Labs Labs: Laboratory Results - last 24 hr 09/28/24 09/29/24 19:15 08:58 WBC 13.6 H RBC 3.53 L Hgb 11.0 L Hct 34.8 L MCV 98.6 MCH 31.2 MCHC 31.6 L RDW 13.3 Plt Count 348 MPV 8.6 Immature Gran % (Auto) 0.3 Neut % (Auto) 68.1 Lymph % (Auto) 13.3 L Bee % (Auto) 10.4 H Eos % (Auto) 7.4 H Baso % (Auto) 0.5 Lymph # (Auto) 1.81 Bee # (Auto) 1.4 H Eos # (Auto) 1.0 H Baso # (Auto) 0.1 Abs Immat Gran (auto) 0.04 H Absolute Neuts (auto) 9.2 H Absolute Nucleated RBC 0.000 Nucleated RBC % 0.0 Sodium 130 L Potassium 3.5 Chloride 94 L Carbon Dioxide 25 Anion Gap 11 BUN 52 H D Creatinine 10.78 H Estim Creat Clear Calc 9 Estimated GFR 5 L Glucose 88 Calcium 7.9 L Phosphorus 6.3 H Albumin 2.9 L Peritoneal Source Peritoneal fluid Peritoneal Color Yellow Peritoneal Appearance Hazy A Peritoneal RBC < 2000 Periton Nuc Cells 465 Periton Neutrophils 8 Periton Lymphocytes 12 Peritoneal Monocytes 66 Peritoneal Eosinophils 7 Periton Mesothelial 2 Periton Macrophages 5 Quality VTE Prophylaxis VTE prophylaxis: pharmacologic ordered Hospitalist MIPS Advance Care Plan I have confirmed that the patient's Advanced Care Plan is present, code status i s documented, or surrogate decision maker is listed in patient medical record.: Yes Medication Reconciliation I have utilized all available resources to obtain, update and review the patients current medications (includes all prescriptions, OTC, herbals, cannabis, and nutritional supplements).: Yes
[2024-09-29] MEDS: SODIUM CHLORIDE 0.9% IV 500 ML IV CONT (17:29)
[2024-09-29] MEDS: HYDROcodone/acetaminophen (*CRX) 5-325 MG TABLET 1 TAB PO (20:08)
[2024-09-30] VITALS (13 sets, daily range): BP systolic 91–128; BP diastolic 59–81; PULSE 82–98; RESP 16–19; TEMP 36.2–36.8; O2SAT 17–98
[2024-09-30 05:59] LABS: Hematocrit 32.4 % (42.0-52.0); Hemoglobin 10.2 g/dL (14.0-18.0); Immature Granulocyte Percent A 0.5 % (0-0.5); Lymphocytes Absolute Auto 1.56 K/mm3 (0.9-3.2); Mean Corpuscular HGB Conc 31.5 g/dl (32-36); Mean Corpuscular Hemoglobin 31.0 pg (26-34); Mean Corpuscular Volume 98.5 fl (80-100); Nucleated Red Blood Cells Absolute Auto 0.000 K/mm3 (0.0-0.012); Nucleated Red Blood Cells Perc 0.0 % (0.0-0.2); Platelet Count Result 324 k/mm3 (150-375); Red Blood Count 3.29 M/mm3 (4.6-6.20); White Blood Count 11.7 K/mm3 (4.5-10.0)
[2024-09-30 06:20] LABS: Albumin Level 2.9 g/dL (3.5-5.1); Anion Gap 9 mmol/L (4-12); Blood Urea Nitrogen 49 mg/dL (9-20); Calcium 7.6 mg/dL (8.4-10.2); Carbon Dioxide 27 mmol/L (22-30); Chloride 93 mmol/L (98-107); Estimated CRCL calculation 9 ml/min; Estimated Glomerular Filt Rate 5; Glucose 91 mg/dL (65-110); Potassium 3.1 mmol/L (3.4-5.0); Sodium 129 mmol/L (137-145)
--- NOTE | 2024-09-30 07:26 | P.PNIM_ITS ---
Progress Note: A&P Assessment and Plan (1) Sepsis: Qualifiers: Sepsis acute organ dysfunction status: unspecified Sepsis type: sepsis due to unspecified organism Qualified Code(s): A41.9 - Sepsis, unspecified o rganism Code(s): A41.9 - Sepsis, unspecified organism Status: Resolved Assessment and Plan: BP 74/42 s/p fluids. No cough or fevers. Lungs are clear and no evidence of infectious process on CT chest abdomen pelvis. Treating for sepsis. WBC elevated, 14. Lactate elevated 2.1, Na low, 128. Started on empiric Vanc, Cefepime. Stopped Vanc since MRSA swab negative and no clear source of infection Reports nausea and abdominal cramping with watery diarrhea, resolved and improved. Generally takes Lomotil at home so continued. Stool for C diff and culture that have previously been negative. Diarrhea may be related to PD. Discussed that nausea may be 2/2 hypotension but added zofran prn. --Cell count 465 nuc cells, Peritoneal fluid culture pending--culture NGTD --Only makes a normal amount of urine, a few mls every 3-4 days. Patient declined straight cath. Reports his last urine was normal not cloudy no dysuria. Also notes that his peritoneal dialysis fluid was not cloudy with his last exchange. Check UA with next PD exchange. --blood pressure still low, 80s. May be related to fluid losses, but white count also elevated --continuing empiric cefepime. Stopped vancomycin -- Blood cultures 09/27 are pending--no growth for 72 hours --Trend WBC, improving and lactate improved (2) Leukocytosis: Code(s): D72.829 - Elevated white blood cell count, unspecified Status: Acute Assessment and Plan: 18>13>11.7 Improving with current antibotics --Follow CBC daily (3) Acute hypotension: Code(s): I95.9 - Hypotension, unspecified Status: Acute Assessment and Plan: Blood pressure in emergency room was 74/49, improved after fluid bolus Fluid bolus given emergency room with improvement 500ml fluids 09/28 & 09/29. Blood pressures improved but still orthostatic 09/29 Cardiology started metoprolol and losartan 09/29. Hs dose of metoprolol held. Reduced metoprolol to 6.25 BID today & held losartan today. Still orthostatic, 104/65>91/59 standing (4) Hearing loss in right ear: Code(s): H91.91 - Unspecified hearing loss, right ear Status: Acute Assessment and Plan: Reports hearing loss and pain to right ear for 2 weeks. Had appointment with ENT scheduled but had to miss appointment due to admission. Was treated with cipro- dex and neomycin-polymixin for 7 days with some improvement in pain. Recent Head CT 09/17 showed a right mastoid effusion and right middle ear fluid, correlate for clinical findings of otomastoiditis. Recently treated with neomycin- polymyxin HC & Cipro dex x7 days Left TM normal. Right TM visible perforation, dark discoloration --Repeat CT IAC & mastoids w/o --ENT consult, not in house until 10/02 --Start ofloxacin 0.3% right ear 5 drops BID x10 days (not ototoxic) --Also receiving IV cefepime emprically pending cultures (5) Generalized weakness: Code(s): R53.1 - Weakness Status: Acute Assessment and Plan: PT OT evaluate and treat Orthostatic vital signs (6) HTN (hypertension): Code(s): I10 - Essential (primary) hypertension Status: Chronic Assessment and Plan: Titrating antihypertensives as noted (7) Diastolic dysfunction: Code(s): I51.89 - Other ill-defined heart diseases Status: Acute Assessment and Plan: Cardiology consulted for possible medication adjustment Holding carvedilol, changed to metoprolol per cardiology Stop Farxiga/Jardiance since anuric. Likely no benefit Adjusting BB/ARB as above (8) End-stage renal disease on peritoneal dialysis: Code(s): N18.6 - End stage renal disease; Z99.2 - Dependence on renal dialysis Status: Acute Assessment and Plan: Nephrology consulted, appreciate assistance Peritoneal dialysis Gave 20 meq potassium for 3.1 today Adding calcium carbonate 500mg hs Checking ionized calcium in AM Continue to follow calcium/phos (9) Hyponatremia: Code(s): E87.1 - Hypo-osmolality and hyponatremia Status: Acute Assessment and Plan: Sodium 129 -- PD per renal Time Spent With Patient Time: 56 minutes Subjective Date/time seen: 09/30/24 07:26 Interval history: No dizziness today, but still orthostatic. Still having pain to right ear. ENT consult pending Wednesday. CT pending Potassium 3.1, giving 20meq after discussion with renal. Starting calcium since trending down Review of Systems Review of Systems: 12 systems were reviewed and are negativ e except for as per HPI. Exam Narrative: General - Awake and alert. No acute distress Eyes - PERRLA, EOM intact ENT - No thrush, No erythema Left TM normal. Right TM perforation and dark discoloration Neck - No noticeable or palpable swelling Lymph Nodes - No lymphadenopathy Cardiovascular - RRR no m/r/g, no JVD Lungs: Clear to auscultation, No wheezing, use of accessory muscles, no crackles Skin - Skin warm and dry, no wounds or rashes Abdomen - Normal bowel sounds, abdomen soft and nontender, pd catheter Extremities - No edema, cyanosis or clubbing Musculoskeletal - 5/5 strength, normal range of motion, no swollen or erythematous joints. Neurological ? Alert and oriented x 3, CN 2-12 grossly intact. Psych: Normal mood and affect Objective Data Vital Signs Vital Signs: Vital Signs - 24 hr 09/29/24 08:00 09/29/24 08:05 09/29/24 08:40 Temperature 97.8 F Pulse Rate 90 88 Respiratory Rate 16 Blood Pressure 115/70 Pulse Oximetry Oxygen Delivery Room Air 09/29/24 08:42 09/29/24 12:00 09/29/24 14:00 Temperature 98.3 F Pulse Rate 92 86 85 Respiratory Rate 18 Blood Pressure 109/73 Pulse Oximetry 93 Oxygen Delivery 09/29/24 15:28 09/29/24 15:31 09/29/24 15:33 Temperature Pulse Rate 85 88 94 Respiratory Rate Blood Pressure 108/69 96/73 L 89/70 L Pulse Oximetry Oxygen Delivery 09/29/24 16:00 09/29/24 16:00 09/29/24 20:00 Temperature 98.3 F Pulse Rate 85 87 96 Respiratory Rate 18 Blood Pressure 109/73 Pulse Oximetry 93 Oxygen Delivery 09/29/24 20:24 09/30/24 00:00 09/30/24 01:16 Temperature 98.3 F 98.2 F Pulse Rate 88 82 87 Respiratory Rate 18 16 Blood Pressure 108/72 100/65 Pulse Oximetry 98 93 Oxygen Delivery 09/30/24 04:00 09/30/24 06:00 Temperature 97.4 F L Pulse Rate 94 93 Respiratory Rate 16 Blood Pressure 118/69 Pulse Oximetry 94 Oxygen Delivery Intake/Output Intake/Output: Intake & Output 09/27/24 09/28/24 09/29/24 09/30/24 23:59 23:59 23:59 23:59 Intake Total 3530 2214 3650 600 Output Total 2428 154 0 Balance 3530 -214 3496 600 Meds/Results Medications: Active Medications Generic Name Dose Route Start Last Admin Trade Name Freq PRN Reason Stop Dose Admin Hydrocodone Bitart/Acetaminophen 1 tab 09/27/24 20:15 09/29/24 20:08 Hydrocodone/Acetaminophen (*Crx) 5-325 Mg Tablet PO 1 tab Q8H PRN Administration Pain Rated 4-10 Albuterol 2 puff 09/27/24 18:54 Albuterol Sulfate (*Sp) Aerosol 1 Puff INHALATION QID PRN shortness of breath or wheezing Buspirone HCl 10 mg 09/27/24 22:00 09/30/24 05:19 Buspirone Hcl 10 Mg Tablet BY MOUTH 10 mg Q8HR CARIDAD Administration Calcium Acetate 2,668 mg 09/28/24 08:00 09/29/24 17:29 Calcium Acetate 667 Mg Tablet PO 2,668 mg TIDWM CARIDAD Administration Cinacalcet 90 mg 09/28/24 08:00 09/29/24 08:41 Cinacalcet 30 Mg Tablet PO 90 mg DAILY@0800 CARIDAD Administration Diphenoxylate HCl/Atropine 1 tablet 09/28/24 15:26 09/28/24 15:42 Diphenoxylate/Atropine (*Crx) 2.5 Mg Tablet PO 1 tablet QID PRN Administration diarrhea Escitalopram Oxalate 10 mg 09/28/24 09:00 09/29/24 08:41 Escitalopram Oxalate 10 Mg Tablet PO 10 mg DAILY CARIDAD Administration Gabapentin 100 mg 09/27/24 19:20 09/29/24 17:29 Gabapentin 100 Mg Capsule PO 100 mg TID CARIDAD Administration Gentamicin Sulfate 1 applic 09/27/24 21:00 09/30/24 00:44 Gentamicin Sulfate 0.1% Cr 15 Gm Tube TOPICAL Not Given [facility]HS [facility] Cefepime HCl 1 gm/ Sodium 50 mls @ 100 mls/hr 09/27/24 14:00 09/29/24 14:45 Chloride IVPB Infused Q24H [facility] Infusion Lidocaine 1 patch 09/29/24 09:00 09/29/24 08:42 Lidocaine 5% Patch TRANSDERM 1 patch DAILY CARIDAD Administration Losartan Potassium 12.5 mg 09/29/24 09:00 09/29/24 08:42 Losartan Potassium 12.5 Mg Tablet PO 12.5 mg DAILY CARIDAD Administration Melatonin 20 mg 09/27/24 18:54 Melatonin 5 Mg Tablet PO HS PRN Insomnia Metoprolol Tartrate 12.5 mg 09/28/24 21:00 09/29/24 22:28 Metoprolol Tartrate 12.5 Mg Tablet PO Not Given Q12HR CARIDAD Nortriptyline HCl 50 mg 09/28/24 09:00 09/29/24 08:40 Nortriptyline Hcl 25 Mg Capsule PO 50 mg DAILY CARIDAD Administration Ondansetron HCl 4 mg 09/27/24 17:22 09/28/24 13:09 Ondansetron Inj 4 Mg/2 Ml Vial IV PUSH 4 mg Q4H PRN Administration Nausea And Vomiting Pantoprazole Sodium 40 mg 09/28/24 09:00 09/29/24 08:40 Pantoprazole 40 Mg Tablet PO 40 mg QAM CARIDAD Administration Radiology Results: ITS Impressions Chest X-Ray 09/27/24 13:05 IMPRESSION: 1. Mild pulmonary edema in the bilateral mid and lower lung zones. Chest/Abdomen/Pelvis CT 09/27/24 14:34 IMPRESSION: 1. Small amount of free intraperineal gas and small to moderate amount of ascites in the abdomen and pelvis related to peritoneal dialysis with dialysis catheter coiled in the deep pelvis. No other acute intra-abdominal/pelvic process. 2. No acute cardiopulmonary disease. 3. Moderate to severe bilateral renal atrophy. 4. No interval change in a few small pulmonary nodules the with lower lung predominance, the 2 largest measuring 6 mm in the right lower lobe. Consider additional 1 year follow-up low-dose noncontrast chest CT. Labs Labs: Laboratory Results - last 24 hr 09/29/24 09/30/24 08:58 05:36 WBC 13.6 H 11.7 H RBC 3.53 L 3.29 L Hgb 11.0 L 10.2 L Hct 34.8 L 32.4 L MCV 98.6 98.5 MCH 31.2 31.0 MCHC 31.6 L 31.5 L RDW 13.3 13.1 Plt Count 348 324 MPV 8.6 8.9 Immature Gran % (Auto) 0.3 0.5 Neut % (Auto) 68.1 66.0 Lymph % (Auto) 13.3 L 13.4 L [place] % (Auto) 10.4 H 11.2 H Eos % (Auto) 7.4 H 8.4 H Baso % (Auto) 0.5 0.5 Lymph # (Auto) 1.81 1.56 [place] # (Auto) 1.4 H 1.3 H Eos # (Auto) 1.0 H 1.0 H Baso # (Auto) 0.1 0.1 Abs Immat Gran (auto) 0.04 H 0.06 H Absolute Neuts (auto) 9.2 H 7.7 H Absolute Nucleated RBC 0.000 0.000 Nucleated RBC % 0.0 0.0 Sodium 130 L 129 L Potassium 3.5 3.1 L Chloride 94 L 93 L Carbon Dioxide 25 27 Anion Gap 11 9 BUN 52 H D 49 H Creatinine 10.78 H 10.73 H Estim Creat Clear Calc 9 9 Estimated GFR 5 L 5 L Glucose 88 91 Calcium 7.9 L 7.6 L Phosphorus 6.3 H 5.5 H Albumin 2.9 L 2.9 L Quality VTE Prophylaxis VTE prophylaxis: pharmacologic ordered Hospitalist [facility] Advance Care Plan I have confirmed that the patient's Advanced Care Plan is present, code status is documented, or surrogate decision maker is listed in patient medical record.: Yes Medication Reconciliation I have utilized all available resources to obtain, update and review the patients current medications (includes all prescriptions, OTC, herbals, cannabis, and nutritional supplements).: Yes
[2024-09-30] MEDS: CINACALCET 30 MG TABLET 90 MG PO (08:50)
[2024-09-30] MEDS: CALCIUM ACETATE 667 MG TABLET 2668 MG PO ×3 (08:50→16:09)
[2024-09-30] MEDS: PANTOPRAZOLE 40 MG TABLET PO (08:51)
[2024-09-30] MEDS: ESCITALOPRAM OXALATE 10 MG TABLET PO (08:51)
[2024-09-30] MEDS: LIDOCAINE 5% PATCH 1 PATCH TRANSDERM (08:51)
[2024-09-30] MEDS: POTASSIUM CHLORIDE 10 MEQ ER TABLET PO ×2 (08:51→13:19)
[2024-09-30] MEDS: GABAPENTIN 100 MG CAPSULE PO ×3 (08:51→16:09)
[2024-09-30] MEDS: NORTRIPTYLINE HCL 25 MG CAPSULE 50 MG PO (08:51)
[2024-09-30] MEDS: METOPROLOL TARTRATE 6.25 MG TABLET PO ×2 (08:52→21:08)
[2024-09-30] MEDS: DIPHENOXYLATE/ATROPINE (*CRX) 2.5 MG TABLET 1 TABLET PO (08:58)
--- NOTE | 2024-09-30 10:47 | PC.NURSE ---
Told to hold losartan this am per provider Kaitlin Mcguire due to decrease bp
--- NOTE | 2024-09-30 10:54 | P.PNNP_ITS ---
Progress Note: A&P Assessment and Plan (1) End stage renal disease: Code(s): N18.6 - End stage renal disease Status: Chronic Assessment and Plan: * continue CCPD while hospitalized * 2L removed last night. Will see how the blood pressure is this evening and will decide what combination of bags to use (2) Hypotension: Code(s): I95.9 - Hypotension, unspecified Status: Acute Assessment and Plan: * as noted on presentation * responded well to IVF resuscitation * possibly due to aggressive fluid removal/ultrafiltration with dialysis on recent hospitalization * Bp still up and down. Currently 91/59 but has been in the 100-110 range overnight (3) Anemia: Code(s): D64.9 - Anemia, unspecified Status: Acute Assessment and Plan: * H/H supratherapeutic for ESRD * holding Epogen * follow trend of H/H (4) Hyponatremia: Code(s): E87.1 - Hypo-osmolality and hyponatremia Status: Acute Assessment and Plan: * relatively stable (but fluctuates at baseline) * due to fluctuations in volume status, water intake and renal failure * sodium 129 today. (5) Congestive heart failure: Code(s): I50.9 - Heart failure, unspecified Status: Acute Assessment and Plan: * known history of systolic and diastolic dysfunction * last Echo (July 2024) noted: * left ventricular systolic function is normal, estimated at 55-60% * left ventricular diastolic function is abnormal * mitral valve has a moderately calcified annulus * mild mitral valve regurgitation * mild pulmonary hypertension, estimated pulmonary arterial systolic pressure is 45 mmHg * trace pulmonic regurgitation * Overall heart function seems to be improved * appears compensated at this time (6) HTN (hypertension): Code(s): I10 - Essential (primary) hypertension Status: Chronic Assessment and Plan: * despite known history, low BP on presentation * BP medications on hold for now except for his losartan and metoprolol which are at low dose and for his heart * systolic 90-120 (7) Neuropathy: Code(s): G62.9 - Polyneuropathy, unspecified Status: Acute Assessment and Plan: * known diagnosis * etiology not entirely clear * follows with Neurology as an outpatient (8) Generalized weakness: Code(s): R53.1 - Weakness Status: Acute Assessment and Plan: * related to low BP and possible deconditioning from recent hospitalization * PT/OT as tolerated * continue supportive therapy Subjective Date/time seen: 09/30/24 10:54 Interval history: patient is alert. He feels better. No shortness of breath or swelling blood pressure still running in the 90-120 range. He had his PD last night. Fluid is clear. Flows were good. He got 1L off Exam Narrative: WDWN in NAD skin no rash head ncat lungs clear bilaterally cor reg no rub or gallop abd BS+ nontender and soft ext 1+ bilateral edema. Objective Data Vital Signs Vital Signs: Vital Signs - 24 hr 09/29/24 12:00 09/29/24 14:00 09/29/24 15:28 Temperature 98.3 F Pulse Rate 86 85 85 Respiratory Rate 18 Blood Pressure 109/73 108/69 Pulse Oximetry 93 Oxygen Delivery 09/29/24 15:31 09/29/24 15:33 09/29/24 16:00 Temperature 98.3 F Pulse Rate 88 94 85 Respiratory Rate 18 Blood Pressure 96/73 L 89/70 L 109/73 Pulse Oximetry 93 Oxygen Delivery 09/29/24 16:00 09/29/24 20:00 09/29/24 20:24 Temperature 98.3 F Pulse Rate 87 96 88 Respiratory Rate 18 Blood Pressure 108/72 Pulse Oximetry 98 Oxygen Delivery 09/30/24 00:00 09/30/24 01:16 09/30/24 04:00 Temperature 98.2 F Pulse Rate 82 87 94 Respiratory Rate 16 Blood Pressure 100/65 Pulse Oximetry 93 Oxygen Delivery 09/30/24 06:00 09/30/24 08:00 09/30/24 08:52 Temperature 97.4 F L Pulse Rate 93 96 95 Respiratory Rate 16 Blood Pressure 118/69 Pulse Oximetry 94 Oxygen Delivery 09/30/24 10:10 09/30/24 10:40 Temperature 98.2 F Pulse Rate 94 Respiratory Rate 18 Blood Pressure 91/59 L Pulse Oximetry 98 Oxygen Delivery Room Air Intake/Output Intake/Output: Intake & Output 09/27/24 09/28/24 09/29/24 09/30/24 23:59 23:59 23:59 23:59 Intake Total 3530 2214 3650 720 Output Total 0330 154 1005 Balance 0770 -564 7329 -534 Meds/Results Medications: Active Medications Generic Name Dose Route Start Last Admin Trade Name Freq PRN Reason Stop Dose Admin Hydrocodone Bitart/Acetaminophen 1 tab 09/27/24 20:15 09/29/24 20:08 Hydrocodone/Acetaminophen (*Crx) 5-325 Mg Tablet PO 1 tab Q8H PRN Administration Pain Rated 4-10 Albuterol 2 puff 09/27/24 18:54 Albuterol Sulfate (*Sp) Aerosol 1 Puff INHALATION QID PRN shortness of breath or wheezing Buspirone HCl 10 mg 09/27/24 22:00 09/30/24 05:19 Buspirone Hcl 10 Mg Tablet BY MOUTH 10 mg Q8HR CARIDAD Administration Calcium Acetate 2,668 mg 09/28/24 08:00 09/30/24 08:50 Calcium Acetate 667 Mg Tablet PO 2,668 mg TIDWM CARIDAD Administration Cinacalcet 90 mg 09/28/24 08:00 09/30/24 08:50 Cinacalcet 30 Mg Tablet PO 90 mg DAILY@0800 CARIDAD Administration Diphenoxylate HCl/Atropine 1 tablet 09/28/24 15:26 09/30/24 08:58 Diphenoxylate/Atropine (*Crx) 2.5 Mg Tablet PO 1 tablet QID PRN Administration diarrhea Escitalopram Oxalate 10 mg 09/28/24 09:00 09/30/24 08:51 Escitalopram Oxalate 10 Mg Tablet PO 10 mg DAILY CARIDAD Administration Gabapentin 100 mg 09/27/24 19:20 09/30/24 08:51 Gabapentin 100 Mg Capsule PO 100 mg TID CARIDAD Administration Gentamicin Sulfate 1 applic 09/27/24 21:00 09/30/24 00:44 Gentamicin Sulfate 0.1% Cr 15 Gm Tube TOPICAL Not Given QHS [facility] Cefepime HCl 1 gm/ Sodium 50 mls @ 100 mls/hr 09/27/24 14:00 09/29/24 14:45 Chloride IVPB Infused Q24H [facility] Infusion Lidocaine 1 patch 09/29/24 09:00 09/30/24 08:51 Lidocaine 5% Patch TRANSDERM 1 patch DAILY CARIDAD Administration Losartan Potassium 12.5 mg 09/30/24 21:00 Losartan Potassium 12.5 Mg Tablet PO HS CARIDAD Melatonin 20 mg 09/27/24 18:54 Melatonin 5 Mg Tablet PO HS PRN Insomnia Metoprolol Tartrate 6.25 mg 09/30/24 09:00 09/30/24 08:52 Metoprolol Tartrate 6.25 Mg Tablet PO 6.25 mg Q12HR CARIDAD Administration Nortriptyline HCl 50 mg 09/28/24 09:00 09/30/24 08:51 Nortriptyline Hcl 25 Mg Capsule PO 50 mg DAILY CARIDAD Administration Ondansetron HCl 4 mg 09/27/24 17:22 09/28/24 13:09 Ondansetron Inj 4 Mg/2 Ml Vial IV PUSH 4 mg Q4H PRN Administration Nausea And Vomiting Pantoprazole Sodium 40 mg 09/28/24 09:00 09/30/24 08:51 Pantoprazole 40 Mg Tablet PO 40 mg QAM CARIDAD Administration Radiology Results: ITS Impressions Chest X-Ray 09/27/24 13:05 IMPRESSION: 1. Mild pulmonary edema in the bilateral mid and lower lung zones. Chest/Abdomen/Pelvis CT 09/27/24 14:34 IMPRESSION: 1. Small amount of free intraperineal gas and small to moderate amount of ascites in the abdomen and pelvis related to peritoneal dialysis with dialysis catheter coiled in the deep pelvis. No other acute intra-abdominal/pelvic process. 2. No acute cardiopulmonary disease. 3. Moderate to severe bilateral renal atrophy. 4. No interval change in a few small pulmonary nodules the with lower lung predominance, the 2 largest measuring 6 mm in the right lower lobe. Consider additional 1 year follow-up low-dose noncontrast chest CT. Labs Labs: Laboratory Results - last 24 hr 09/30/24 05:36 WBC 11.7 H RBC 3.29 L Hgb 10.2 L Hct 32.4 L MCV 98.5 MCH 31.0 MCHC 31.5 L RDW 13.1 Plt Count 324 MPV 8.9 Immature Gran % (Auto) 0.5 Neut % (Auto) 66.0 Lymph % (Auto) 13.4 L [place] % (Auto) 11.2 H Eos % (Auto) 8.4 H Baso % (Auto) 0.5 Lymph # (Auto) 1.56 [place] # (Auto) 1.3 H Eos # (Auto) 1.0 H Baso # (Auto) 0.1 Abs Immat Gran (auto) 0.06 H Absolute Neuts (auto) 7.7 H Absolute Nucleated RBC 0.000 Nucleated RBC % 0.0 Sodium 129 L Potassium 3.1 L Chloride 93 L Carbon Dioxide 27 Anion Gap 9 BUN 49 H Creatinine 10.73 H Estim Creat Clear Calc 9 Estimated GFR 5 L Glucose 91 Calcium 7.6 L Phosphorus 5.5 H Albumin 2.9 L
[2024-09-30] MEDS: CEFEPIME 1 GM in SODIUM CHLORIDE 0.9% IV 50 ML 100 ML IVPB (13:19)
[2024-09-30] MEDS: OFLOXACIN 0.3% OPHTH SOLN 5 ML BTL 5 DROP RIGHT EAR (16:09)
[2024-09-30] MEDS: GENTAMICIN SULFATE 0.1% CR 15 GM TUBE 1 APPLIC TOPICAL (18:47)
[2024-09-30] MEDS: CALCIUM CARBONATE (TUMS) 500 MG (200 MG ELEMENTAL) PO (21:08)
[2024-09-30] MEDS: HYDROcodone/acetaminophen (*CRX) 5-325 MG TABLET 1 TAB PO (21:08)
[2024-09-30] MEDS: LOSARTAN POTASSIUM 12.5 MG TABLET PO (21:08)
[2024-10-01] VITALS (14 sets, daily range): BP systolic 119–141; BP diastolic 79–86; PULSE 73–98; RESP 14–18; TEMP 36.6–36.9; O2SAT 93–100
[2024-10-01] MEDS: HYDROcodone/acetaminophen (*CRX) 5-325 MG TABLET 1 TAB PO ×2 (05:09→20:22)
[2024-10-01 06:39] LABS: Hematocrit 33.0 % (42.0-52.0); Hemoglobin 10.7 g/dL (14.0-18.0); Mean Corpuscular HGB Conc 32.4 g/dl (32-36); Mean Corpuscular Hemoglobin 31.5 pg (26-34); Mean Corpuscular Volume 97.1 fl (80-100); Platelet Count Result 366 k/mm3 (150-375); Red Blood Count 3.40 M/mm3 (4.6-6.20); White Blood Count 12.5 K/mm3 (4.5-10.0)
[2024-10-01 07:02] LABS: Albumin Level 3.0 g/dL (3.5-5.1); Anion Gap 11 mmol/L (4-12); Blood Urea Nitrogen 50 mg/dL (9-20); Calcium 8.0 mg/dL (8.4-10.2); Carbon Dioxide 23 mmol/L (22-30); Chloride 93 mmol/L (98-107); Estimated CRCL calculation 9 ml/min; Estimated Glomerular Filt Rate 5; Glucose 89 mg/dL (65-110); Potassium 3.2 mmol/L (3.4-5.0); Sodium 127 mmol/L (137-145)
--- NOTE | 2024-10-01 08:15 | P.PNIM_ITS ---
Progress Note: A&P Assessment and Plan (1) Sepsis: Qualifiers: Sepsis acute organ dysfunction status: unspecified Sepsis type: sepsis due to unspecified organism Qualified Code(s): A41.9 - Sepsis, unspecified o rganism Code(s): A41.9 - Sepsis, unspecified organism Status: Resolved Assessment and Plan: BP 74/42 s/p fluids. No cough or fevers. Lungs are clear and no evidence of infectious process on CT chest abdomen pelvis. Treating for sepsis. WBC elevated, 14. Lactate elevated 2.1, Na low, 128. Started on empiric Vanc, Cefepime. Stopped Vanc since MRSA swab negative and no clear source of infection Reports nausea and abdominal cramping with watery diarrhea, resolved and improved. Generally takes Lomotil at home so continued. Stool for C diff and culture that have previously been negative. Diarrhea may be related to PD. Discussed that nausea may be 2/2 hypotension but added zofran prn. --Cell count 465 nuc cells, Peritoneal fluid culture pending--culture NGTD --Only makes scant amount of urine, a few mls every 3-4 days. Patient declined straight cath. Reports his last urine was normal not cloudy no dysuria. Also notes that his peritoneal dialysis fluid was not cloudy with his last exchange. Check culture with next PD exchange. --blood pressure still low, 80s. May be related to fluid losses, but white count also elevated --change cefepime to Ceftriaxone 10/01. Stopped vancomycin -- Blood cultures 09/27 are pending--no growth for 72 hours --Trend WBC, improving and lactate improved (2) Leukocytosis: Code(s): D72.829 - Elevated white blood cell count, unspecified Status: Acute Assessment and Plan: 18>13>11.7 Improving with current antibotics --Follow CBC daily (3) Acute hypotension: Code(s): I95.9 - Hypotension, unspecified Status: Acute Assessment and Plan: Blood pressure in emergency room was 74/49, improved after fluid bolus Fluid bolus given emergency room with improvement 500ml fluids 09/28 & 09/29. Blood pressures improved but still orthostatic 09/29 Cardiology started metoprolol and losartan 09/29. Hs dose of metoprolol held. Reduced metoprolol to 6.25 BID today & losartan changed to 12.5 hs if SBP>100. Has been orthostatic, 104/65>91/59 standing (4) Hearing loss in right ear: Code(s): H91.91 - Unspecified hearing loss, right ear Status: Acute Assessment and Plan: Reports hearing loss and pain to right ear for 2 weeks. Had appointment with ENT scheduled but had to miss appointment due to admission. Was treated with cipro- dex and neomycin-polymixin for 7 days with some improvement in pain. Recent Head CT 09/17 showed a right mastoid effusion and right middle ear fluid, correlate for clinical findings of otomastoiditis. Recently treated with neomycin- polymyxin HC & Cipro dex x7 days Left TM normal. Right TM visible perforation, dark discoloration --Repeat CT IAC & mastoids w/o --ENT consult, not in house until 10/02 --Start ofloxacin 0.3% right ear 5 drops BID x10 days (not ototoxic) --Also receiving IV cefepime emprically pending cultures (5) Generalized weakness: Code(s): R53.1 - Weakness Status: Acute Assessment and Plan: PT OT evaluate and treat Orthostatic vital signs (6) HTN (hypertension): Code(s): I10 - Essential (primary) hypertension Status: Chronic Assessment and Plan: Titrating antihypertensives as noted (7) Diastolic dysfunction: Code(s): I51.89 - Other ill-defined heart diseases Status: Acute Assessment and Plan: Cardiology consulted for possible medication adjustment Holding carvedilol, changed to metoprolol per cardiology Stop Farxiga/Jardiance since anuric. Likely no benefit Adjusting BB/ARB as above (8) End-stage renal disease on peritoneal dialysis: Code(s): N18.6 - End stage renal disease; Z99.2 - Dependence on renal dialysis Status: Acute Assessment and Plan: Nephrology consulted, appreciate assistance Peritoneal dialysis Gave 20 meq potassium for 3.1 09/30 & 3.2 10/01 On Calcium acetate (phoslo 2,668mg TID) Added calcium carbonate 500mg hs 09/30 Calcium 7.6<8 (corrected 8.1<8.4 today) Phos downtrending 7.6>6.3>5.5>5.3 ionized calcium pending Continue to follow calcium/phos. (9) Hyponatremia: Code(s): E87.1 - Hypo-osmolality and hyponatremia Status: Acute Assessment and Plan: Sodium 129>127 -- PD per renal Time Spent With Patient Time: 57 minutes Subjective Date/time seen: 10/01/24 08:15 Interval history: No dizziness today. Pending orthostatics today but blood pressure overall improved Walked to bathroom Still having pain to right ear. ENT consult pending Wednesday. CT IAC showed a large right otomastoiditis effusion Potassium 3.2, gave 20meq Review of Systems Review of Systems: 12 systems were reviewed and are negativ e except for as per HPI. Exam Narrative: General - Awake and alert. No acute distress Eyes - PERRLA, EOM intact ENT - No thrush, No erythema Left TM normal. Right TM perforation and dark discoloration Neck - No noticeable or palpable swelling Lymph Nodes - No lymphadenopathy Cardiovascular - RRR no m/r/g, no JVD Lungs: Clear to auscultation, No wheezing, use of accessory muscles, no crackles Skin - Skin warm and dry, no wounds or rashes Abdomen - Normal bowel sounds, abdomen soft and nontender, pd catheter Extremities - No edema, cyanosis or clubbing Musculoskeletal - 5/5 strength, normal range of motion, no swollen or erythematous joints. Neurological ? Alert and oriented x 3, CN 2-12 grossly intact. Psych: Normal mood and affect Objective Data Vital Signs Vital Signs: Vital Signs - 24 hr 09/30/24 08:52 09/30/24 10:10 09/30/24 10:40 Temperature 98.2 F Pulse Rate 95 94 Respiratory Rate 18 Blood Pressure 91/59 L Pulse Oximetry 98 Oxygen Delivery Room Air Fraction of Inspired Oxygen 09/30/24 12:00 09/30/24 12:00 09/30/24 14:00 Temperature 98 F 97.1 F L Pulse Rate 91 87 82 Respiratory Rate 18 19 Blood Pressure 104/65 128/73 Pulse Oximetry 17 L 95 Oxygen Delivery Fraction of Inspired Oxygen 09/30/24 16:00 09/30/24 20:05 09/30/24 20:35 Temperature 98.3 F Pulse Rate 88 86 98 Respiratory Rate 18 Blood Pressure 112/81 Pulse Oximetry 95 Oxygen Delivery Fraction of Inspired Oxygen 09/30/24 21:08 09/30/24 21:08 10/01/24 00:00 Temperature Pulse Rate 91 91 80 Respiratory Rate 18 Blood Pressure Pulse Oximetry 95 Oxygen Delivery Room Air Fraction of Inspired Oxygen 21 10/01/24 04:00 10/01/24 05:10 Temperature 97.9 F Pulse Rate 88 93 Respiratory Rate 18 Blood Pressure 141/86 H Pulse Oximetry 93 Oxygen Delivery Fraction of Inspired Oxygen Intake/Output Intake/Output: Intake & Output 09/28/24 09/29/24 09/30/24 10/01/24 23:59 23:59 23:59 23:59 Intake Total 4484 3650 1500 50 Output Total 1898 154 1005 Balance -214 0336 495 50 Meds/Results Medications: Active Medications Generic Name Dose Route Start Last Admin Trade Name Freq PRN Reason Stop Dose Admin Hydrocodone Bitart/Acetaminophen 1 tab 09/27/24 20:15 10/01/24 05:09 Hydrocodone/Acetaminophen (*Crx) 5-325 Mg Tablet PO 1 tab Q8H PRN Administration Pain Rated 4-10 Albuterol 2 puff 09/27/24 18:54 Albuterol Sulfate (*Sp) Aerosol 1 Puff INHALATION QID PRN shortness of breath or wheezing Buspirone HCl 10 mg 09/27/24 22:00 10/01/24 05:08 Buspirone Hcl 10 Mg Tablet BY MOUTH 10 mg Q8HR CARIDAD Administration Calcium Acetate 2,668 mg 09/28/24 08:00 09/30/24 16:09 Calcium Acetate 667 Mg Tablet PO 2,668 mg TIDWM CARIDAD Administration Calcium Carbonate 500 mg 09/30/24 21:00 09/30/24 21:08 Calcium Carbonate (Tums) 500 Mg (200 Mg Elemental) PO 500 mg HS CARIDAD Administration Cinacalcet 90 mg 09/28/24 08:00 09/30/24 08:50 Cinacalcet 30 Mg Tablet PO 90 mg DAILY@0800 CARIDAD Administration Diphenoxylate HCl/Atropine 1 tablet 09/28/24 15:26 09/30/24 08:58 Diphenoxylate/Atropine (*Crx) 2.5 Mg Tablet PO 1 tablet QID PRN Administration diarrhea Escitalopram Oxalate 10 mg 09/28/24 09:00 09/30/24 08:51 Escitalopram Oxalate 10 Mg Tablet PO 10 mg DAILY CARIDAD Administration Gabapentin 100 mg 09/27/24 19:20 09/30/24 16:09 Gabapentin 100 Mg Capsule PO 100 mg TID CARIDAD Administration Gentamicin Sulfate 1 applic 09/27/24 21:00 09/30/24 18:47 Gentamicin Sulfate 0.1% Cr 15 Gm Tube TOPICAL 1 applic QHS CARIDAD Administration Cefepime HCl 1 gm/ Sodium 50 mls @ 100 mls/hr 09/27/24 14:00 09/30/24 13:49 Chloride IVPB Infused Q24H CARIDAD Infusion Lidocaine 1 patch 09/29/24 09:00 09/30/24 08:51 Lidocaine 5% Patch TRANSDERM 1 patch DAILY CARIDAD Administration Losartan Potassium 12.5 mg 09/30/24 21:00 09/30/24 21:08 Losartan Potassium 12.5 Mg Tablet PO 12.5 mg HS CARIDAD Administration Melatonin 20 mg 09/27/24 18:54 Melatonin 5 Mg Tablet PO HS PRN Insomnia Metoprolol Tartrate 6.25 mg 09/30/24 09:00 09/30/24 21:08 Metoprolol Tartrate 6.25 Mg Tablet PO 6.25 mg Q12HR CARIDAD Administration Nortriptyline HCl 50 mg 09/28/24 09:00 09/30/24 08:51 Nortriptyline Hcl 25 Mg Capsule PO 50 mg DAILY CARIDAD Administration Ofloxacin 5 drop 09/30/24 17:00 09/30/24 16:09 Ofloxacin 0.3% Ophth Soln 5 Ml Btl RIGHT EAR 5 drop BID CARIDAD Administration Ondansetron HCl 4 mg 09/27/24 17:22 09/28/24 13:09 Ondansetron Inj 4 Mg/2 Ml Vial IV PUSH 4 mg Q4H PRN Administration Nausea And Vomiting Pantoprazole Sodium 40 mg 09/28/24 09:00 09/30/24 08:51 Pantoprazole 40 Mg Tablet PO 40 mg QAM CARIDAD Administration Potassium Chloride 20 meq 10/01/24 08:14 Potassium Chloride 20 Meq Er Tablet PO 10/01/24 08:15 ONCE ONE Radiology Results: ITS Impressions Chest X-Ray 09/27/24 13:05 IMPRESSION: 1. Mild pulmonary edema in the bilateral mid and lower lung zones. Chest/Abdomen/Pelvis CT 09/27/24 14:34 IMPRESSION: 1. Small amount of free intraperineal gas and small to moderate amount of ascites in the abdomen and pelvis related to peritoneal dialysis with dialysis catheter coiled in the deep pelvis. No other acute intra-abdominal/pelvic process. 2. No acute cardiopulmonary disease. 3. Moderate to severe bilateral renal atrophy. 4. No interval change in a few small pulmonary nodules the with lower lung predominance, the 2 largest measuring 6 mm in the right lower lobe. Consider additional 1 year follow-up low-dose noncontrast chest CT. Labs Labs: Laboratory Results - last 24 hr 10/01/24 05:33 WBC 12.5 H RBC 3.40 L Hgb 10.7 L Hct 33.0 L MCV 97.1 MCH 31.5 MCHC 32.4 RDW 12.9 Plt Count 366 MPV 9.2 Sodium 127 L Potassium 3.2 L Chloride 93 L Carbon Dioxide 23 Anion Gap 11 BUN 50 H Creatinine 10.84 H Estim Creat Clear Calc 9 Estimated GFR 5 L Glucose 89 Calcium 8.0 L Phosphorus 5.3 H Albumin 3.0 L Quality VTE Prophylaxis VTE prophylaxis: pharmacologic ordered Hospitalist MIPS Advance Care Plan I have confirmed that the patient's Advanced Care Plan is present, code status is documented, or surrogate decision maker is listed in patient medical record.: Yes Medication Reconciliation I have utilized all available resources to obtain, update and review the patients current medications (includes all prescriptions, OTC, herbals, cannabis, and nutritional supplements).: Yes
[2024-10-01] MEDS: ESCITALOPRAM OXALATE 10 MG TABLET PO (08:18)
[2024-10-01] MEDS: PANTOPRAZOLE 40 MG TABLET PO (08:18)
[2024-10-01] MEDS: CINACALCET 30 MG TABLET 90 MG PO (08:18)
[2024-10-01] MEDS: METOPROLOL TARTRATE 6.25 MG TABLET PO ×2 (08:18→20:22)
[2024-10-01] MEDS: CALCIUM ACETATE 667 MG TABLET 2668 MG PO ×3 (08:19→16:40)
[2024-10-01] MEDS: LIDOCAINE 5% PATCH 1 PATCH TRANSDERM (08:19)
[2024-10-01] MEDS: NORTRIPTYLINE HCL 25 MG CAPSULE 50 MG PO (08:19)
[2024-10-01] MEDS: GABAPENTIN 100 MG CAPSULE PO ×3 (08:19→16:40)
[2024-10-01] MEDS: OFLOXACIN 0.3% OPHTH SOLN 5 ML BTL 5 DROP RIGHT EAR ×2 (08:25→16:41)
[2024-10-01] MEDS: POTASSIUM CHLORIDE 20 MEQ ER TABLET PO (08:28)
--- NOTE | 2024-10-01 09:02 | P.PNNP_ITS ---
Progress Note: A&P Assessment and Plan (1) End stage renal disease: Code(s): N18.6 - End stage renal disease Status: Chronic Assessment and Plan: * continue CCPD while hospitalized * 1L removed last night. * BP doing better * will continue with same bags tonight (2) Hypotension: Code(s): I95.9 - Hypotension, unspecified Status: Acute Assessment and Plan: * as noted on presentation * responded well to IVF resuscitation * possibly due to aggressive fluid removal/ultrafiltration with dialysis on recent hospitalization * Bp seems to be stabilizing in the 100-140 range. (3) Anemia: Code(s): D64.9 - Anemia, unspecified Status: Acute Assessment and Plan: * Hemoglobin 10.7 today. Will check again tomorrow. * Consider resuming EPO tomorrow (4) Hyponatremia: Code(s): E87.1 - Hypo-osmolality and hyponatremia Status: Acute Assessment and Plan: * relatively stable (but fluctuates at baseline) * due to fluctuations in volume status, water intake and renal failure * sodium 127 today. (5) Congestive heart failure: Code(s): I50.9 - Heart failure, unspecified Status: Acute Assessment and Plan: * known history of systolic and diastolic dysfunction * last Echo (July 2024) noted: * left ventricular systolic function is normal, estimated at 55-60% * left ventricular diastolic function is abnormal * mitral valve has a moderately calcified annulus * mild mitral valve regurgitation * mild pulmonary hypertension, estimated pulmonary arterial systolic pressure is 45 mmHg * trace pulmonic regurgitation * Overall heart function seems to be improved * no signs of heart failure * breathing okay, lungs clear, no swelling. (6) HTN (hypertension): Code(s): I10 - Essential (primary) hypertension Status: Chronic Assessment and Plan: * despite known history, low BP on presentation * BP medications on hold for now except for his losartan and metoprolol which are at low dose and for his heart * systolic 110-140 (7) Neuropathy: Code(s): G62.9 - Polyneuropathy, unspecified Status: Acute Assessment and Plan: * known diagnosis * etiology not entirely clear * follows with Neurology as an outpatient (8) Generalized weakness: Code(s): R53.1 - Weakness Status: Acute Assessment and Plan: * related to low BP and possible deconditioning from recent hospitalization * PT/OT as tolerated * blood pressure is better, hopefully he will respond to therapy Subjective Date/time seen: 10/01/24 09:02 Interval history: Patient is alert. He still weak. No chest pain or shortness of breath Exam Narrative: WDWN in NAD skin no rash head ncat lungs clear bilaterally cor reg no rub or gallop abd BS+ nontender and soft ext 1+ bilateral edema. Objective Data Vital Signs Vital Signs: Vital Signs - 24 hr 09/30/24 10:10 09/30/24 10:40 09/30/24 12:00 Temperature 98.2 F 98 F Pulse Rate 94 91 Respiratory Rate 18 18 Blood Pressure 91/59 L 104/65 Pulse Oximetry 98 17 L Oxygen Delivery Room Air Fraction of Inspired Oxygen 09/30/24 12:00 09/30/24 14:00 09/30/24 16:00 Temperature 97.1 F L Pulse Rate 87 82 88 Respiratory Rate 19 Blood Pressure 128/73 Pulse Oximetry 95 Oxygen Delivery Fraction of Inspired Oxygen 09/30/24 20:05 09/30/24 20:35 09/30/24 21:08 Temperature 98.3 F Pulse Rate 86 98 91 Respiratory Rate 18 Blood Pressure 112/81 Pulse Oximetry 95 Oxygen Delivery Fraction of Inspired Oxygen 09/30/24 21:08 10/01/24 00:00 10/01/24 04:00 Temperature Pulse Rate 91 80 88 Respiratory Rate 18 Blood Pressure Pulse Oximetry 95 Oxygen Delivery Room Air Fraction of Inspired Oxygen 21 10/01/24 05:10 10/01/24 08:15 10/01/24 08:18 Temperature 97.9 F Pulse Rate 93 95 Respiratory Rate 18 Blood Pressure 141/86 H 120/79 Pulse Oximetry 93 Oxygen Delivery Fraction of Inspired Oxygen 10/01/24 08:22 10/01/24 08:22 Temperature Pulse Rate 95 Respiratory Rate Blood Pressure Pulse Oximetry Oxygen Delivery Room Air Fraction of Inspired Oxygen Intake/Output Intake/Output: Intake & Output 08/09/1509/29/24 09/30/24 10/01/24 23:59 23:59 23:59 23:59 Intake Total 6477 3650 1500 50 Output Total 2428 154 1005 Balance -214 7176 495 50 Meds/Results Medications: Active Medications Generic Name Dose Route Start Last Admin Trade Name Freq PRN Reason Stop Dose Admin Hydrocodone Bitart/Acetaminophen 1 tab 09/27/24 20:15 10/01/24 05:09 Hydrocodone/Acetaminophen (*Crx) 5-325 Mg Tablet PO 1 tab Q8H PRN Administration Pain Rated 4-10 Albuterol 2 puff 09/27/24 18:54 Albuterol Sulfate (*Sp) Aerosol 1 Puff INHALATION QID PRN shortness of breath or wheezing Buspirone HCl 10 mg 09/27/24 22:00 10/01/24 05:08 Buspirone Hcl 10 Mg Tablet BY MOUTH 10 mg Q8HR CARIDAD Administration Calcium Acetate 2,668 mg 09/28/24 08:00 10/01/24 08:19 Calcium Acetate 667 Mg Tablet PO 2,668 mg TIDWM CARIDAD Administration Calcium Carbonate 500 mg 09/30/24 21:00 09/30/24 21:08 Calcium Carbonate (Tums) 500 Mg (200 Mg Elemental) PO 500 mg HS CARIDAD Administration Cinacalcet 90 mg 09/28/24 08:00 10/01/24 08:18 Cinacalcet 30 Mg Tablet PO 90 mg DAILY@0800 CARIDAD Administration Diphenoxylate HCl/Atropine 1 tablet 09/28/24 15:26 09/30/24 08:58 Diphenoxylate/Atropine (*Crx) 2.5 Mg Tablet PO 1 tablet QID PRN Administration diarrhea Escitalopram Oxalate 10 mg 09/28/24 09:00 10/01/24 08:18 Escitalopram Oxalate 10 Mg Tablet PO 10 mg DAILY CARIDAD Administration Gabapentin 100 mg 09/27/24 19:20 10/01/24 08:19 Gabapentin 100 Mg Capsule PO 100 mg TID CARIDAD Administration Gentamicin Sulfate 1 applic 09/27/24 21:00 09/30/24 18:47 Gentamicin Sulfate 0.1% Cr 15 Gm Tube TOPICAL 1 applic QHS CARIDAD Administration Cefepime HCl 1 gm/ Sodium 50 mls @ 100 mls/hr 09/27/24 14:00 09/30/24 13:49 Chloride IVPB Infused Q24H CARIDAD Infusion Lidocaine 1 patch 09/29/24 09:00 10/01/24 08:19 Lidocaine 5% Patch TRANSDERM 1 patch DAILY CARIDAD Administration Losartan Potassium 12.5 mg 09/30/24 21:00 09/30/24 21:08 Losartan Potassium 12.5 Mg Tablet PO 12.5 mg HS CARIDAD Administration Melatonin 20 mg 09/27/24 18:54 Melatonin 5 Mg Tablet PO HS PRN Insomnia Metoprolol Tartrate 6.25 mg 09/30/24 09:00 10/01/24 08:18 Metoprolol Tartrate 6.25 Mg Tablet PO 6.25 mg Q12HR CARIDAD Administration Nortriptyline HCl 50 mg 09/28/24 09:00 10/01/24 08:19 Nortriptyline Hcl 25 Mg Capsule PO 50 mg DAILY CARIDAD Administration Ofloxacin 5 drop 09/30/24 17:00 10/01/24 08:25 Ofloxacin 0.3% Ophth Soln 5 Ml Btl RIGHT EAR 5 drop BID CARIDAD Administration Ondansetron HCl 4 mg 09/27/24 17:22 09/28/24 13:09 Ondansetron Inj 4 Mg/2 Ml Vial IV PUSH 4 mg Q4H PRN Administration Nausea And Vomiting Pantoprazole Sodium 40 mg 09/28/24 09:00 10/01/24 08:18 Pantoprazole 40 Mg Tablet PO 40 mg QAM CARIDAD Administration Radiology Results: ITS Impressions Chest X-Ray 09/27/24 13:05 IMPRESSION: 1. Mild pulmonary edema in the bilateral mid and lower lung zones. Chest/Abdomen/Pelvis CT 09/27/24 14:34 IMPRESSION: 1. Small amount of free intraperineal gas and small to moderate amount of ascites in the abdomen and pelvis related to peritoneal dialysis with dialysis catheter coiled in the deep pelvis. No other acute intra-abdominal/pelvic process. 2. No acute cardiopulmonary disease. 3. Moderate to severe bilateral renal atrophy. 4. No interval change in a few small pulmonary nodules the with lower lung predominance, the 2 largest measuring 6 mm in the right lower lobe. Consider additional 1 year follow-up low-dose noncontrast chest CT. Labs Labs: Laboratory Results - last 24 hr 10/01/24 05:33 WBC 12.5 H RBC 3.40 L Hgb 10.7 L Hct 33.0 L MCV 97.1 MCH 31.5 MCHC 32.4 RDW 12.9 Plt Count 366 MPV 9.2 Sodium 127 L Potassium 3.2 L Chloride 93 L Carbon Dioxide 23 Anion Gap 11 BUN 50 H Creatinine 10.84 H Estim Creat Clear Calc 9 Estimated GFR 5 L Glucose 89 Calcium 8.0 L Phosphorus 5.3 H Albumin 3.0 L
[2024-10-01] MEDS: CEFEPIME 1 GM in SODIUM CHLORIDE 0.9% IV 50 ML 100 ML IVPB (13:33)
[2024-10-01] MEDS: cefTRIAXone 1 GM in SODIUM CHLORIDE 0.9% IV 50 ML 100 ML IVPB (16:40)
[2024-10-01] MEDS: CALCIUM CARBONATE (TUMS) 500 MG (200 MG ELEMENTAL) PO (20:21)
[2024-10-01] MEDS: LOSARTAN POTASSIUM 12.5 MG TABLET PO (20:22)
[2024-10-02] VITALS (10 sets, daily range): BP systolic 118–162; BP diastolic 79–85; PULSE 71–100; RESP 18; TEMP 36.7–36.8; O2SAT 98–99
[2024-10-02 05:52] LABS: Hematocrit 32.6 % (42.0-52.0); Hemoglobin 10.2 g/dL (14.0-18.0); Immature Granulocyte Percent A 0.4 % (0-0.5); Lymphocytes Absolute Auto 1.56 K/mm3 (0.9-3.2); Mean Corpuscular HGB Conc 31.3 g/dl (32-36); Mean Corpuscular Hemoglobin 30.9 pg (26-34); Mean Corpuscular Volume 98.8 fl (80-100); Nucleated Red Blood Cells Absolute Auto 0.000 K/mm3 (0.0-0.012); Nucleated Red Blood Cells Perc 0.0 % (0.0-0.2); Platelet Count Result 351 k/mm3 (150-375); Red Blood Count 3.30 M/mm3 (4.6-6.20); White Blood Count 10.6 K/mm3 (4.5-10.0)
[2024-10-02 06:16] LABS: Albumin Level 3.0 g/dL (3.5-5.1); Anion Gap 12 mmol/L (4-12); Blood Urea Nitrogen 52 mg/dL (9-20); Calcium 7.8 mg/dL (8.4-10.2); Carbon Dioxide 23 mmol/L (22-30); Chloride 96 mmol/L (98-107); Estimated CRCL calculation 9 ml/min; Estimated Glomerular Filt Rate 5; Glucose 97 mg/dL (65-110); Potassium 3.2 mmol/L (3.4-5.0); Sodium 131 mmol/L (137-145)
[2024-10-02] MEDS: PANTOPRAZOLE 40 MG TABLET PO (09:16)
[2024-10-02] MEDS: GABAPENTIN 100 MG CAPSULE PO ×3 (09:16→17:27)
[2024-10-02] MEDS: NORTRIPTYLINE HCL 25 MG CAPSULE 50 MG PO (09:16)
[2024-10-02] MEDS: ESCITALOPRAM OXALATE 10 MG TABLET PO (09:17)
[2024-10-02] MEDS: CINACALCET 30 MG TABLET 90 MG PO (09:17)
[2024-10-02] MEDS: LIDOCAINE 5% PATCH 1 PATCH TRANSDERM (09:17)
[2024-10-02] MEDS: METOPROLOL TARTRATE 6.25 MG TABLET PO ×2 (09:18→21:02)
[2024-10-02] MEDS: OFLOXACIN 0.3% OPHTH SOLN 5 ML BTL 5 DROP RIGHT EAR ×2 (09:19→17:28)
--- NOTE | 2024-10-02 10:20 | P.PNIM_ITS ---
Progress Note: A&P Assessment and Plan (1) Sepsis: Qualifiers: Sepsis acute organ dysfunction status: unspecified Sepsis type: sepsis due to unspecified organism Qualified Code(s): A41.9 - Sepsis, unspecified o rganism Code(s): A41.9 - Sepsis, unspecified organism Status: Resolved Assessment and Plan: BP 74/42 s/p fluids. No cough or fevers. Lungs are clear and no evidence of infectious process on CT chest abdomen pelvis. Treating for sepsis. WBC elevated, 14. Lactate elevated 2.1, Na low, 128. Started on empiric Vanc, Cefepime. Stopped Vanc since MRSA swab negative and no clear source of infection Reports nausea and abdominal cramping with watery diarrhea, resolved and improved. Generally takes Lomotil at home so continued. Stool for C diff and culture that have previously been negative. Diarrhea may be related to PD. Discussed that nausea may be 2/2 hypotension but added zofran prn. --Cell count 465 nuc cells, Peritoneal fluid culture pending--culture NGTD --Only makes scant amount of urine, a few mls every 3-4 days. Patient declined straight cath. Reports his last urine was normal not cloudy no dysuria. Also notes that his peritoneal dialysis fluid was not cloudy with his last exchange. Check culture with next PD exchange. --blood pressure still low, 80s. May be related to fluid losses, but white count also elevated --change cefepime to Ceftriaxone 10/01. Stopped vancomycin -- Blood cultures 09/27 are pending--no growth for 72 hours --Trend WBC, improving and lactate improved (2) Leukocytosis: Code(s): D72.829 - Elevated white blood cell count, unspecified Status: Acute Assessment and Plan: 18>13>11.7-> 10.6 Improving with current antibiotics --Follow CBC daily (3) Acute hypotension: Code(s): I95.9 - Hypotension, unspecified Status: Acute Assessment and Plan: * Blood pressure in emergency room was 74/49, improved after fluid bolus * Fluid bolus given emergency room with improvement * 500ml fluids 09/28 & 09/29. Blood pressures improved but still orthostatic 09/29 * Cardiology started metoprolol and losartan 09/29. Hs dose of metoprolol held. * Reduced metoprolol to 6.25 BID today & losartan changed to 12.5 hs if SBP>100. * Has been orthostatic, 104/65>91/59 standing * 10/02: 124/83 (4) Hearing loss in right ear: Code(s): H91.91 - Unspecified hearing loss, right ear Status: Acute Assessment and Plan: * Reports hearing loss and pain to right ear for 2 weeks. Had appointment with ENT scheduled but had to miss appointment due to admission. Was treated with cipro-dex and neomycin-polymixin for 7 days with some improvement in pain. Recent Head CT 09/17 showed a right mastoid effusion and right middle ear fluid, correlate for clinical findings of otomastoiditis. Recently treated with neomycin-polymyxin HC & Cipro dex x7 days * Left TM normal. Right TM visible perforation, dark discoloration * Repeat CT IAC & mastoids w/o * ENT consult, not in house until 10/02 * Start ofloxacin 0.3% right ear 5 drops BID x10 days (not ototoxic) * Also receiving IV cefepime empirically pending cultures (5) Generalized weakness: Code(s): R53.1 - Weakness Status: Acute Assessment and Plan: * PT OT evaluate and treat - No further rehab indications * Orthostatic vital signs (6) HTN (hypertension): Code(s): I10 - Essential (primary) hypertension Status: Chronic Assessment and Plan: Titrating antihypertensives as noted (7) Diastolic dysfunction: Code(s): I51.89 - Other ill-defined heart diseases Status: Acute Assessment and Plan: * Cardiology consulted for possible medication adjustment * Holding carvedilol, changed to metoprolol per cardiology * Stop Farxiga/Jardiance since anuric. Likely no benefit * Adjusting BB/ARB as above (8) End-stage renal disease on peritoneal dialysis: Code(s): N18.6 - End stage renal disease; Z99.2 - Dependence on renal dialysis Status: Acute Assessment and Plan: * Nephrology consulted, appreciate assistance * Peritoneal dialysis * Gave 20 meq potassium for 3.1 09/30 & 3.2 10/01 * On Calcium acetate (phoslo 2,668mg TID) * Added calcium carbonate 500mg hs 09/30 Calcium 7.6<8 (corrected 8.1<8.4 today) * Phos downtrending 7.6>6.3>5.5>5.3 * ionized calcium pending * Continue to follow calcium/phos. * Gave further 20meq K d/t K on 10/02 = 3.2 (9) Hyponatremia: Code(s): E87.1 - Hypo-osmolality and hyponatremia Status: Acute Assessment and Plan: * Sodium 129>127 * PD per renal * 10/02: 129 Subjective Date/time seen: 10/02/24 10:20 Interval history: 54-year-old male with past medical history of peritoneal dialysis, CHF, hypertension hyperlipidemia presents the hospital with hypotension. 10/02/2024 Patient sitting comfortably in bed at time of examination. BP 124/83. Feels good this morning, denies any chest pain, shortness a breath, pain. Still endorsing some generalized weakness and does not feel 100% at this time. Pending ENT consult regarding otomastoid effusion, appreciate further recommendations. PT/OT does not recommend any further rehab care. Likely discharge in the next 24 hours. Review of Systems Review of Systems: 12 systems were reviewed and are negativ e except for as per HPI. Exam Narrative: General - Awake and alert. No acute distress Eyes - PERRLA, EOM intact ENT - No thrush, No erythema Left TM normal. Right TM perforation and dark discoloration Neck - No noticeable or palpable swelling Lymph Nodes - No lymphadenopathy Cardiovascular - RRR no m/r/g, no JVD Lungs: Clear to auscultation, No wheezing, use of accessory muscles, no crackles Skin - Skin warm and dry, no wounds or rashes Abdomen - Normal bowel sounds, abdomen soft and nontender, pd catheter Extremities - No edema, cyanosis or clubbing Musculoskeletal - 5/5 strength, normal range of motion, no swollen or erythematous joints. Neurological ? Alert and oriented x 3, CN 2-12 grossly intact. Psych: Normal mood and affect Objective Data Vital Signs Vital Signs: Vital Signs - 24 hr 10/01/24 12:00 10/01/24 13:36 10/01/24 16:00 Temperature 98.4 F Pulse Rate 80 98 79 Respiratory Rate 14 Blood Pressure 119/85 Pulse Oximetry 100 Oxygen Delivery Fraction of Inspired Oxygen 10/01/24 20:00 10/01/24 20:22 10/01/24 20:30 Temperature Pulse Rate 85 73 86 Respiratory Rate 18 Blood Pressure Pulse Oximetry 96 Oxygen Delivery Room Air Fraction of Inspired Oxygen 21 10/01/24 21:51 10/02/24 00:00 10/02/24 04:00 Temperature 98.1 F Pulse Rate 86 81 93 Respiratory Rate 18 Blood Pressure 124/83 Pulse Oximetry 96 Oxygen Delivery Fraction of Inspired Oxygen 10/02/24 06:00 10/02/24 06:40 10/02/24 08:00 Temperature 98.2 F 98.1 F Pulse Rate 71 93 97 Respiratory Rate 18 18 Blood Pressure 162/79 H 124/83 Pulse Oximetry 99 Oxygen Delivery Fraction of Inspired Oxygen 10/02/24 09:18 Temperature Pulse Rate 100 Respiratory Rate Blood Pressure Pulse Oximetry Oxygen Delivery Fraction of Inspired Oxygen Intake/Output Intake/Output: Intake & Output 09/29/24 09/30/24 10/01/24 10/02/24 23:59 23:59 23:59 23:59 Intake Total 3650 1500 745 400 Output Total 154 1005 1121 847 Balance 3496 675 -978 -748 Meds/Results Medications: Active Medications Generic Name Dose Route Start Last Admin Trade Name Freq PRN Reason Stop Dose Admin Hydrocodone Bitart/Acetaminophen 1 tab 09/27/24 20:15 10/01/24 20:22 Hydrocodone/Acetaminophen (*Crx) 5-325 Mg Tablet PO 1 tab Q8H PRN Administration Pain Rated 4-10 Albuterol 2 puff 09/27/24 18:54 Albuterol Sulfate (*Sp) Aerosol 1 Puff INHALATION QID PRN shortness of breath or wheezing Buspirone HCl 10 mg 09/27/24 22:00 10/02/24 05:30 Buspirone Hcl 10 Mg Tablet BY MOUTH 10 mg Q8HR CARIDAD Administration Calcium Acetate 2,668 mg 09/28/24 08:00 10/02/24 09:19 Calcium Acetate 667 Mg Tablet PO Not Given TIDWM [facility] Calcium Carbonate 500 mg 09/30/24 21:00 10/01/24 20:21 Calcium Carbonate (Tums) 500 Mg (200 Mg Elemental) PO 500 mg HS CARIDAD Administration Cinacalcet 90 mg 09/28/24 08:00 10/02/24 09:17 Cinacalcet 30 Mg Tablet PO 90 mg DAILY@0800 CARIDAD Administration Diphenoxylate HCl/Atropine 1 tablet 09/28/24 15:26 09/30/24 08:58 Diphenoxylate/Atropine (*Crx) 2.5 Mg Tablet PO 1 tablet QID PRN Administration diarrhea Escitalopram Oxalate 10 mg 09/28/24 09:00 10/02/24 09:17 Escitalopram Oxalate 10 Mg Tablet PO 10 mg DAILY CARIDAD Administration Gabapentin 100 mg 09/27/24 19:20 10/02/24 09:16 Gabapentin 100 Mg Capsule PO 100 mg TID CARIDAD Administration Gentamicin Sulfate 1 applic 09/27/24 21:00 10/02/24 09:15 Gentamicin Sulfate 0.1% Cr 15 Gm Tube TOPICAL Not Given QHS [facility] Ceftriaxone Sodium 1 gm/ 50 mls @ 100 mls/hr 10/01/24 17:00 10/01/24 16:40 Sodium Chloride IVPB 100 mls/hr Q24H CARIDAD Administration Lidocaine 1 patch 09/29/24 09:00 10/02/24 09:17 Lidocaine 5% Patch TRANSDERM 1 patch DAILY CARIDAD Administration Losartan Potassium 12.5 mg 09/30/24 21:00 10/01/24 20:22 Losartan Potassium 12.5 Mg Tablet PO 12.5 mg HS CARIDAD Administration Melatonin 20 mg 09/27/24 18:54 Melatonin 5 Mg Tablet PO HS PRN Insomnia Metoprolol Tartrate 6.25 mg 09/30/24 09:00 10/02/24 09:18 Metoprolol Tartrate 6.25 Mg Tablet PO 6.25 mg Q12HR CARIDAD Administration Nortriptyline HCl 50 mg 09/28/24 09:00 10/02/24 09:16 Nortriptyline Hcl 25 Mg Capsule PO 50 mg DAILY CARIDAD Administration Ofloxacin 5 drop 09/30/24 17:00 10/02/24 09:19 Ofloxacin 0.3% Ophth Soln 5 Ml Btl RIGHT EAR 5 drop BID CARIDAD Administration Ondansetron HCl 4 mg 09/27/24 17:22 09/28/24 13:09 Ondansetron Inj 4 Mg/2 Ml Vial IV PUSH 4 mg Q4H PRN Administration Nausea And Vomiting Pantoprazole Sodium 40 mg 09/28/24 09:00 10/02/24 09:16 Pantoprazole 40 Mg Tablet PO 40 mg QAM CARIDAD Administration Radiology Results: ITS Impressions Chest X-Ray 09/27/24 13:05 IMPRESSION: 1. Mild pulmonary edema in the bilateral mid and lower lung zones. Chest/Abdomen/Pelvis CT 09/27/24 14:34 IMPRESSION: 1. Small amount of free intraperineal gas and small to moderate amount of ascites in the abdomen and pelvis related to peritoneal dialysis with dialysis catheter coiled in the deep pelvis. No other acute intra-abdominal/pelvic process. 2. No acute cardiopulmonary disease. 3. Moderate to severe bilateral renal atrophy. 4. No interval change in a few small pulmonary nodules the with lower lung predominance, the 2 largest measuring 6 mm in the right lower lobe. Consider additional 1 year follow-up low-dose noncontrast chest CT. Internal Auditory Canal CT 10/01/24 10:59 IMPRESSION: 1. Large right otomastoiditis effusion. Labs Labs: Laboratory Results - last 24 hr 10/02/24 05:30 WBC 10.6 H RBC 3.30 L Hgb 10.2 L Hct 32.6 L MCV 98.8 MCH 30.9 MCHC 31.3 L RDW 12.9 Plt Count 351 MPV 9.0 Immature Gran % (Auto) 0.4 Neut % (Auto) 64.0 Lymph % (Auto) 14.7 L [place] % (Auto) 11.5 H Eos % (Auto) 8.6 H Baso % (Auto) 0.8 Lymph # (Auto) 1.56 [place] # (Auto) 1.2 H Eos # (Auto) 0.9 H Baso # (Auto) 0.1 Abs Immat Gran (auto) 0.04 H Absolute Neuts (auto) 6.8 H Absolute Nucleated RBC 0.000 Nucleated RBC % 0.0 Sodium 131 L Potassium 3.2 L Chloride 96 L Carbon Dioxide 23 Anion Gap 12 BUN 52 H Creatinine 11.17 H Estim Creat Clear Calc 9 Estimated GFR 5 L Glucose 97 Calcium 7.8 L Phosphorus 4.9 H Albumin 3.0 L Quality VTE Prophylaxis VTE prophylaxis: pharmacologic ordered
--- NOTE | 2024-10-02 11:38 | P.PNNP_ITS ---
Progress Note: A&P Assessment and Plan (1) End stage renal disease: Code(s): N18.6 - End stage renal disease Status: Chronic Assessment and Plan: * continue CCPD while hospitalized * continue current Rx * follow trend of electrolytes, volume status, and clearance (2) Hypotension: Code(s): I95.9 - Hypotension, unspecified Status: Acute Assessment and Plan: * as noted on presentation * responded well to IVF resuscitation * possibly due to aggressive fluid removal/ultrafiltration with dialysis on recent hospitalization * clinical improvement noted (3) Anemia: Code(s): D64.9 - Anemia, unspecified Status: Acute Assessment and Plan: * due to ESRD * stable at this time * resume Epogen if Hgb < 10 (4) Hyponatremia: Code(s): E87.1 - Hypo-osmolality and hyponatremia Status: Acute Assessment and Plan: * relatively stable (but fluctuates at baseline) * due to fluctuations in volume status, water intake and renal failure * follow trend (5) Congestive heart failure: Code(s): I50.9 - Heart failure, unspecified Status: Acute Assessment and Plan: * known history of systolic and diastolic dysfunction * last Echo (July 2024) noted: * left ventricular systolic function is normal, estimated at 55-60% * left ventricular diastolic function is abnormal * mitral valve has a moderately calcified annulus * mild mitral valve regurgitation * mild pulmonary hypertension, estimated pulmonary arterial systolic pressure is 45 mmHg * trace pulmonic regurgitation * overall heart function seems to be improved * appears stable if not compensated (6) HTN (hypertension): Code(s): I10 - Essential (primary) hypertension Status: Chronic Assessment and Plan: * despite known history, low BP on presentation * BP medications with parameters * follow trend of hemodynamics (7) Neuropathy: Code(s): G62.9 - Polyneuropathy, unspecified Status: Acute Assessment and Plan: * known diagnosis * etiology not entirely clear * follows with Neurology as an outpatient (8) Generalized weakness: Code(s): R53.1 - Weakness Status: Acute Assessment and Plan: * related to low BP and possible deconditioning from recent hospitalization * PT/OT as tolerated Will continue to follow. L Subjective Date/time seen: 10/02/24 11:38 Interval history: Follow-up for end stage renal disease on peritoneal dialysis. Continues to tolerated nightly peritoneal dialysis treatments without any issues or problems; no apparent distress voiced when seen; still reports some generalized weakness but no worsening of these symptoms; working with PT/OT as tolerated. Exam 2 Narrative: General: WD/WN male in NAD Heart: normal S1 and S2; no rub Lungs: clear anteriorly; decreased at bases Abdomen: soft, nontender, nondistended, positive bowel sounds Extremities: no cyanosis or clubbing; trace edema Skin: warm Objective Data Vital Signs Vital Signs: Vital Signs Temp Pulse Resp BP Pulse Ox O2 Del Method FiO2 10/02/24 09:18 100 10/02/24 08:00 Room Air 10/02/24 08:00 97 10/02/24 06:40 98.1 F 93 18 124/83 10/02/24 06:00 98.2 F 71 18 162/79 H 99 10/02/24 04:00 93 10/02/24 00:00 81 10/01/24 21:51 98.1 F 86 18 124/83 96 10/01/24 20:30 86 18 96 Room Air 21 10/01/24 20:22 73 10/01/24 20:00 85 Intake/Output Intake/Output: Intake & Output 09/29/24 09/30/24 10/01/24 10/02/24 23:59 23:59 23:59 23:59 Intake Total 3650 7715 931 8777 Output Total 154 1005 1121 847 Balance 3496 495 -326 393 Meds/Results Medications: Active Medications Generic Name Dose Route Start Last Admin Trade Name Freq PRN Reason Stop Dose Admin Hydrocodone Bitart/Acetaminophen 1 tab 09/27/24 20:15 10/01/24 20:22 Hydrocodone/Acetaminophen (*Crx) 5-325 Mg Tablet PO 1 tab Q8H PRN Administration Pain Rated 4-10 Albuterol 2 puff 09/27/24 18:54 Albuterol Sulfate (*Sp) Aerosol 1 Puff INHALATION QID PRN shortness of breath or wheezing Buspirone HCl 10 mg 09/27/24 22:00 10/02/24 14:25 Buspirone Hcl 10 Mg Tablet BY MOUTH 10 mg Q8HR CARIDAD Administration Calcium Acetate 2,668 mg 09/28/24 08:00 10/02/24 17:27 Calcium Acetate 667 Mg Tablet PO 2,668 mg TIDWM CARIDAD Administration Calcium Carbonate 500 mg 09/30/24 21:00 10/01/24 20:21 Calcium Carbonate (Tums) 500 Mg (200 Mg Elemental) PO 500 mg HS CARIDAD Administration Cinacalcet 90 mg 09/28/24 08:00 10/02/24 09:17 Cinacalcet 30 Mg Tablet PO 90 mg DAILY@0800 CARIDAD Administration Diphenoxylate HCl/Atropine 1 tablet 09/28/24 15:26 09/30/24 08:58 Diphenoxylate/Atropine (*Crx) 2.5 Mg Tablet PO 1 tablet QID PRN Administration diarrhea Escitalopram Oxalate 10 mg 09/28/24 09:00 10/02/24 09:17 Escitalopram Oxalate 10 Mg Tablet PO 10 mg DAILY CARIDAD Administration Gabapentin 100 mg 09/27/24 19:20 10/02/24 17:27 Gabapentin 100 Mg Capsule PO 100 mg TID CARIDAD Administration Gentamicin Sulfate 1 applic 09/27/24 21:00 10/02/24 09:15 Gentamicin Sulfate 0.1% Cr 15 Gm Tube TOPICAL Not Given QHS [facility] Ceftriaxone Sodium 1 gm/ 50 mls @ 100 mls/hr 10/01/24 17:00 10/02/24 17:27 Sodium Chloride IVPB 100 mls/hr Q24H CARIDAD Administration Lidocaine 1 patch 09/29/24 09:00 10/02/24 09:17 Lidocaine 5% Patch TRANSDERM 1 patch DAILY CARIDAD Administration Losartan Potassium 12.5 mg 09/30/24 21:00 10/01/24 20:22 Losartan Potassium 12.5 Mg Tablet PO 12.5 mg HS CARIDAD Administration Melatonin 20 mg 09/27/24 18:54 Melatonin 5 Mg Tablet PO HS PRN Insomnia Metoprolol Tartrate 6.25 mg 09/30/24 09:00 10/02/24 09:18 Metoprolol Tartrate 6.25 Mg Tablet PO 6.25 mg Q12HR CARIDAD Administration Nortriptyline HCl 50 mg 09/28/24 09:00 10/02/24 09:16 Nortriptyline Hcl 25 Mg Capsule PO 50 mg DAILY CARIDAD Administration Ofloxacin 5 drop 09/30/24 17:00 10/02/24 17:28 Ofloxacin 0.3% Ophth Soln 5 Ml Btl RIGHT EAR 5 drop BID CARIDAD Administration Ondansetron HCl 4 mg 09/27/24 17:22 09/28/24 13:09 Ondansetron Inj 4 Mg/2 Ml Vial IV PUSH 4 mg Q4H PRN Administration Nausea And Vomiting Pantoprazole Sodium 40 mg 09/28/24 09:00 10/02/24 09:16 Pantoprazole 40 Mg Tablet PO 40 mg QAM CARIDAD Administration Radiology Results: ITS Impressions Chest X-Ray 09/27/24 13:05 IMPRESSION: 1. Mild pulmonary edema in the bilateral mid and lower lung zones. Chest/Abdomen/Pelvis CT 09/27/24 14:34 IMPRESSION: 1. Small amount of free intraperineal gas and small to moderate amount of ascites in the abdomen and pelvis related to peritoneal dialysis with dialysis catheter coiled in the deep pelvis. No other acute intra-abdominal/pelvic process. 2. No acute cardiopulmonary disease. 3. Moderate to severe bilateral renal atrophy. 4. No interval change in a few small pulmonary nodules the with lower lung predominance, the 2 largest measuring 6 mm in the right lower lobe. Consider additional 1 year follow-up low-dose noncontrast chest CT. Internal Auditory Canal CT 10/01/24 10:59 IMPRESSION: 1. Large right otomastoiditis effusion. Labs Labs: Laboratory Tests 10/02/24 05:30 10/02/24 05:30 Calcium 7.8 L Phosphorus 4.9 H Albumin 3.0 L Microbiology 09/28/24 19:15 Peritoneal Fluid Aerobic Culture - Preliminary
[2024-10-02 12:08] LABS: Calcium, Ionized 4.4 mg/dL (4.5-5.6)
[2024-10-02] MEDS: CALCIUM ACETATE 667 MG TABLET 2668 MG PO ×2 (12:40→17:27)
[2024-10-02] MEDS: POTASSIUM CHLORIDE 20 MEQ ER TABLET PO ×2 (12:41→14:25)
[2024-10-02] MEDS: cefTRIAXone 1 GM in SODIUM CHLORIDE 0.9% IV 50 ML 100 ML IVPB (17:27)
[2024-10-02] MEDS: GENTAMICIN SULFATE 0.1% CR 15 GM TUBE 1 APPLIC TOPICAL (21:00)
[2024-10-02] MEDS: LOSARTAN POTASSIUM 12.5 MG TABLET PO (21:01)
[2024-10-02] MEDS: HYDROcodone/acetaminophen (*CRX) 5-325 MG TABLET 1 TAB PO (21:02)
[2024-10-02] MEDS: CALCIUM CARBONATE (TUMS) 500 MG (200 MG ELEMENTAL) PO (21:02)
[2024-10-03 06:00] VITALS: BP 144/90; PULSE 91; RESP 18; TEMP 36.8; O2SAT 96
[2024-10-03 07:18] LABS: Albumin Level 3.0 g/dL (3.5-5.1); Anion Gap 10 mmol/L (4-12); Blood Urea Nitrogen 52 mg/dL (9-20); Calcium 8.1 mg/dL (8.4-10.2); Carbon Dioxide 24 mmol/L (22-30); Chloride 95 mmol/L (98-107); Estimated CRCL calculation 9 ml/min; Estimated Glomerular Filt Rate 5; Glucose 92 mg/dL (65-110); Potassium 3.4 mmol/L (3.4-5.0); Sodium 129 mmol/L (137-145)
[2024-10-03 08:52] VITALS: PULSE 91
[2024-10-03] MEDS: GABAPENTIN 100 MG CAPSULE PO ×2 (08:52→12:44)
[2024-10-03] MEDS: ESCITALOPRAM OXALATE 10 MG TABLET PO (08:52)
[2024-10-03] MEDS: PANTOPRAZOLE 40 MG TABLET PO (08:52)
[2024-10-03] MEDS: CALCIUM ACETATE 667 MG TABLET 2668 MG PO ×2 (08:52→12:44)
[2024-10-03] MEDS: METOPROLOL TARTRATE 6.25 MG TABLET PO (08:52)
[2024-10-03] MEDS: LIDOCAINE 5% PATCH 1 PATCH TRANSDERM (08:53)
[2024-10-03] MEDS: CINACALCET 30 MG TABLET 90 MG PO (08:53)
[2024-10-03] MEDS: NORTRIPTYLINE HCL 25 MG CAPSULE 50 MG PO (08:53)
[2024-10-03] MEDS: OFLOXACIN 0.3% OPHTH SOLN 5 ML BTL 5 DROP RIGHT EAR (08:55)
--- NOTE | 2024-10-03 09:45 | P.PNNP_ITS ---
Progress Note: A&P Assessment and Plan (1) End stage renal disease: Code(s): N18.6 - End stage renal disease Status: Chronic Assessment and Plan: * continue CCPD while hospitalized * continue current Rx * follow trend of electrolytes, volume status, and clearance (2) Hypotension: Code(s): I95.9 - Hypotension, unspecified Status: Acute Assessment and Plan: * as noted on presentation * responded well to IVF resuscitation * possibly due to aggressive fluid removal/ultrafiltration with dialysis on recent hospitalization * clinical improvement noted (3) Anemia: Code(s): D64.9 - Anemia, unspecified Status: Acute Assessment and Plan: * due to ESRD * stable at this time * resume Epogen if Hgb < 10 (4) Hyponatremia: Code(s): E87.1 - Hypo-osmolality and hyponatremia Status: Acute Assessment and Plan: * relatively stable (but fluctuates at baseline) * due to fluctuations in volume status, water intake and renal failure * follow trend (5) Congestive heart failure: Code(s): I50.9 - Heart failure, unspecified Status: Acute Assessment and Plan: * known history of systolic and diastolic dysfunction * last Echo (July 2024) noted: * left ventricular systolic function is normal, estimated at 55-60% * left ventricular diastolic function is abnormal * mitral valve has a moderately calcified annulus * mild mitral valve regurgitation * mild pulmonary hypertension, estimated pulmonary arterial systolic pressure is 45 mmHg * trace pulmonic regurgitation * overall heart function seems to be improved * appears stable if not compensated (6) HTN (hypertension): Code(s): I10 - Essential (primary) hypertension Status: Chronic Assessment and Plan: * despite known history, low BP on presentation * BP medications with parameters * follow trend of hemodynamics (7) Neuropathy: Code(s): G62.9 - Polyneuropathy, unspecified Status: Acute Assessment and Plan: * known diagnosis * etiology not entirely clear * follows with Neurology as an outpatient (8) Generalized weakness: Code(s): R53.1 - Weakness Status: Acute Assessment and Plan: * related to low BP and possible deconditioning from recent hospitalization * PT/OT as tolerated Will continue to follow. L Subjective Date/time seen: 10/03/24 09:45 Interval history: Follow-up for end stage renal disease on peritoneal dialysis. Tolerated peritoneal dialysis treatment overnight without any issue or problems (CCPD supervised and seen at 9:35am); overall, seems to be feeling reasonably well; no apparent distress noted; no other acute complaints voiced. Exam 2 Narrative: General: WD/WN male in NAD Heart: normal S1 and S2; no rub Lungs: clear anteriorly; decreased at bases Abdomen: soft, nontender, nondistended, positive bowel sounds Extremities: no cyanosis or clubbing; trace edema Skin: warm and intact Objective Data Vital Signs Vital Signs: Vital Signs Temp Pulse Resp BP Pulse Ox O2 Del Method FiO2 10/03/24 09:03 Room Air 10/03/24 08:52 91 10/03/24 06:00 98.3 F 91 18 144/90 H 96 10/02/24 21:43 98.1 F 95 18 136/84 98 10/02/24 21:02 95 18 98 Room Air 21 10/02/24 21:02 76 Intake/Output Intake/Output: Intake & Output 09/30/24 10/01/24 10/02/24 10/03/24 23:59 23:59 23:59 23:59 Intake Total 5696 259 0603 980 Output Total 1005 1121 847 0 Balance 495 -326 393 980 Meds/Results Medications: Active Medications Generic Name Dose Route Start Trade Name Freq PRN Reason Stop Hydrocodone Bitart/Acetaminophen 1 tab 09/27/24 20:15 Hydrocodone/Acetaminophen (*Crx) 5-325 Mg Tablet PO Q8H PRN Pain Rated 4-10 Albuterol 2 puff 09/27/24 18:54 Albuterol Sulfate (*Sp) Aerosol 1 Puff INHALATION QID PRN shortness of breath or wheezing Buspirone HCl 10 mg 09/27/24 22:00 Buspirone Hcl 10 Mg Tablet BY MOUTH Q8HR [facility] Calcium Acetate 2,668 mg 09/28/24 08:00 Calcium Acetate 667 Mg Tablet PO TIDWM [facility] Calcium Carbonate 500 mg 09/30/24 21:00 Calcium Carbonate (Tums) 500 Mg (200 Mg Elemental) PO HS [facility] Cinacalcet 90 mg 09/28/24 08:00 Cinacalcet 30 Mg Tablet PO DAILY@0800 [facility] Diphenoxylate HCl/Atropine 1 tablet 09/28/24 15:26 Diphenoxylate/Atropine (*Crx) 2.5 Mg Tablet PO QID PRN diarrhea Escitalopram Oxalate 10 mg 09/28/24 09:00 Escitalopram Oxalate 10 Mg Tablet PO DAILY [facility] Gabapentin 100 mg 09/27/24 19:20 Gabapentin 100 Mg Capsule PO TID [facility] Gentamicin Sulfate 1 applic 09/27/24 21:00 Gentamicin Sulfate 0.1% Cr 15 Gm Tube TOPICAL QHS [facility] Ceftriaxone Sodium 1 gm/ 50 mls @ 100 mls/hr 10/01/24 17:00 Sodium Chloride IVPB Q24H [facility] Lidocaine 1 patch 09/29/24 09:00 Lidocaine 5% Patch TRANSDERM DAILY [facility] Losartan Potassium 12.5 mg 09/30/24 21:00 Losartan Potassium 12.5 Mg Tablet PO HS [facility] Melatonin 20 mg 09/27/24 18:54 Melatonin 5 Mg Tablet PO HS PRN Insomnia Metoprolol Tartrate 6.25 mg 09/30/24 09:00 Metoprolol Tartrate 6.25 Mg Tablet PO Q12HR [facility] Nortriptyline HCl 50 mg 09/28/24 09:00 Nortriptyline Hcl 25 Mg Capsule PO DAILY [facility] Ofloxacin 5 drop 09/30/24 17:00 Ofloxacin 0.3% Ophth Soln 5 Ml Btl RIGHT EAR BID [facility] Ondansetron HCl 4 mg 09/27/24 17:22 Ondansetron Inj 4 Mg/2 Ml Vial IV PUSH Q4H PRN Nausea And Vomiting Pantoprazole Sodium 40 mg 09/28/24 09:00 Pantoprazole 40 Mg Tablet PO QAM [facility] Radiology Results: ITS Impressions Chest X-Ray 09/27/24 13:05 IMPRESSION: 1. Mild pulmonary edema in the bilateral mid and lower lung zones. Chest/Abdomen/Pelvis CT 09/27/24 14:34 IMPRESSION: 1. Small amount of free intraperineal gas and small to moderate amount of ascites in the abdomen and pelvis related to peritoneal dialysis with dialysis catheter coiled in the deep pelvis. No other acute intra-abdominal/pelvic process. 2. No acute cardiopulmonary disease. 3. Moderate to severe bilateral renal atrophy. 4. No interval change in a few small pulmonary nodules the with lower lung predominance, the 2 largest measuring 6 mm in the right lower lobe. Consider additional 1 year follow-up low-dose noncontrast chest CT. Internal Auditory Canal CT 10/01/24 10:59 IMPRESSION: 1. Large right otomastoiditis effusion. Labs Labs: Laboratory Tests 10/03/24 06:51 10/03/24 06:53 Calcium 8.1 L Phosphorus 4.7 H Albumin 3.0 L Microbiology 09/27/24 12:52 Blood Blood Culture - Final 09/27/24 13:53 Blood Blood Culture - Final 09/28/24 19:15 Peritoneal Fluid Aerobic Culture - Preliminary
--- NOTE | 2024-10-03 09:45 | PM.PNNEP ---
Progress Note: A&P Assessment and Plan (1) End stage renal disease: Code(s): N18.6 - End stage renal disease Status: Chronic Assessment and Plan: continue CCPD while hospitalized continue current Rx follow trend of electrolytes, volume status, and clearance (2) Hypotension: Code(s): I95.9 - Hypotension, unspecified Status: Acute Assessment and Plan: as noted on presentation responded well to IVF resuscitation possibly due to aggressive fluid removal/ultrafiltration with dialysis on recent hospitalization clinical improvement noted (3) Anemia: Code(s): D64.9 - Anemia, unspecified Status: Acute Assessment and Plan: due to ESRD stable at this time resume Epogen if Hgb < 10 (4) Hyponatremia: Code(s): E87.1 - Hypo-osmolality and hyponatremia Status: Acute Assessment and Plan: relatively stable (but fluctuates at baseline) due to fluctuations in volume status, water intake and renal failure follow trend (5) Congestive heart failure: Code(s): I50.9 - Heart failure, unspecified Status: Acute Assessment and Plan: known history of systolic and diastolic dysfunction last Echo (July 2024) noted: left ventricular systolic function is normal, estimated at 55-60% left ventricular diastolic function is abnormal mitral valve has a moderately calcified annulus mild mitral valve regurgitation mild pulmonary hypertension, estimated pulmonary arterial systolic pressure is 45 mmHg trace pulmonic regurgitation overall heart function seems to be improved appears stable if not compensated (6) HTN (hypertension): Code(s): I10 - Essential (primary) hypertension Status: Chronic Assessment and Plan: despite known history, low BP on presentation BP medications with parameters follow trend of hemodynamics (7) Neuropathy: Code(s): G62.9 - Polyneuropathy, unspecified Status: Acute Assessment and Plan: known diagnosis etiology not entirely clear follows with Neurology as an outpatient (8) Generalized weakness: Code(s): R53.1 - Weakness Status: Acute Assessment and Plan: related to low BP and possible deconditioning from recent hospitalization PT/OT as tolerated Will continue to follow. Subjective Date/time seen: 10/03/24 09:45 Interval history: Follow-up for end stage renal disease on peritoneal dialysis. Tolerated peritoneal dialysis treatment overnight without any issue or problems (CCPD supervised and seen at 9:35am); overall, seems to be feeling reasonably well; no apparent distress noted; no other acute complaints voiced. Exam Narrative: General: WD/WN male in NAD Heart: normal S1 and S2; no rub Lungs: clear anteriorly; decreased at bases Abdomen: soft, nontender, nondistended, positive bowel sounds Extremities: no cyanosis or clubbing; trace edema Skin: warm and intact Objective Data Vital Signs Vital Signs: Vital Signs Temp Pulse Resp BP Pulse Ox O2 Del Method FiO2 10/03/24 09:03 Room Air 10/03/24 08:52 91 10/03/24 06:00 98.3 F 91 18 144/90 H 96 10/02/24 21:43 98.1 F 95 18 136/84 98 10/02/24 21:02 95 18 98 Room Air 21 10/02/24 21:02 76 Intake/Output Intake/Output: Intake & Output 09/30/24 10/01/24 10/02/24 10/03/24 23:59 23:59 23:59 23:59 Intake Total 1908 365 2399 980 Output Total 1005 1121 847 0 Balance 495 -326 393 980 Meds/Results Medications: Active Medications Generic Name Dose Route Start Trade Name Freq PRN Reason Stop Hydrocodone Bitart/Acetaminophen 1 tab 09/27/24 20:15 Hydrocodone/Acetaminophen (*Crx) 5-325 Mg Tablet PO Q8H PRN Pain Rated 4-10 Albuterol 2 puff 09/27/24 18:54 Albuterol Sulfate (*Sp) Aerosol 1 Puff INHALATION QID PRN shortness of breath or wheezing Buspirone HCl 10 mg 09/27/24 22:00 Buspirone Hcl 10 Mg Tablet BY MOUTH Q8HR [facility] Calcium Acetate 2,668 mg 09/28/24 08:00 Calcium Acetate 667 Mg Tablet PO TIDWM [facility] Calcium Carbonate 500 mg 09/30/24 21:00 Calcium Carbonate (Tums) 500 Mg (200 Mg Elemental) PO HS [facility] Cinacalcet 90 mg 09/28/24 08:00 Cinacalcet 30 Mg Tablet PO DAILY@0800 [facility] Diphenoxylate HCl/Atropine 1 tablet 09/28/24 15:26 Diphenoxylate/Atropine (*Crx) 2.5 Mg Tablet PO QID PRN diarrhea Escitalopram Oxalate 10 mg 09/28/24 09:00 Escitalopram Oxalate 10 Mg Tablet PO DAILY [facility] Gabapentin 100 mg 09/27/24 19:20 Gabapentin 100 Mg Capsule PO TID [facility] Gentamicin Sulfate 1 applic 09/27/24 21:00 Gentamicin Sulfate 0.1% Cr 15 Gm Tube TOPICAL QHS [facility] Ceftriaxone Sodium 1 gm/ 50 mls @ 100 mls/hr 10/01/24 17:00 Sodium Chloride IVPB Q24H [facility] Lidocaine 1 patch 09/29/24 09:00 Lidocaine 5% Patch TRANSDERM DAILY [facility] Losartan Potassium 12.5 mg 09/30/24 21:00 Losartan Potassium 12.5 Mg Tablet PO HS [facility] Melatonin 20 mg 09/27/24 18:54 Melatonin 5 Mg Tablet PO HS PRN Insomnia Metoprolol Tartrate 6.25 mg 09/30/24 09:00 Metoprolol Tartrate 6.25 Mg Tablet PO Q12HR [facility] Nortriptyline HCl 50 mg 09/28/24 09:00 Nortriptyline Hcl 25 Mg Capsule PO DAILY [facility] Ofloxacin 5 drop 09/30/24 17:00 Ofloxacin 0.3% Ophth Soln 5 Ml Btl RIGHT EAR BID [facility] Ondansetron HCl 4 mg 09/27/24 17:22 Ondansetron Inj 4 Mg/2 Ml Vial IV PUSH Q4H PRN Nausea And Vomiting Pantoprazole Sodium 40 mg 09/28/24 09:00 Pantoprazole 40 Mg Tablet PO QAM [facility] Radiology Results: ITS Impressions Chest X-Ray 09/27/24 13:05 IMPRESSION: 1. Mild pulmonary edema in the bilateral mid and lower lung zones. Chest/Abdomen/Pelvis CT 09/27/24 14:34 IMPRESSION: 1. Small amount of free intraperineal gas and small to moderate amount of ascites in the abdomen and pelvis related to peritoneal dialysis with dialysis catheter coiled in the deep pelvis. No other acute intra-abdominal/pelvic process. 2. No acute cardiopulmonary disease. 3. Moderate to severe bilateral renal atrophy. 4. No interval change in a few small pulmonary nodules the with lower lung predominance, the 2 largest measuring 6 mm in the right lower lobe. Consider additional 1 year follow-up low-dose noncontrast chest CT. Internal Auditory Canal CT 10/01/24 10:59 IMPRESSION: 1. Large right otomastoiditis effusion. Labs Labs: Laboratory Tests 10/03/24 06:51 10/03/24 06:53 Calcium 8.1 L Phosphorus 4.7 H Albumin 3.0 L Microbiology 09/27/24 12:52 Blood Blood Culture - Final 09/27/24 13:53 Blood Blood Culture - Final 09/28/24 19:15 Peritoneal Fluid Aerobic Culture - Preliminary
[2024-10-03 10:14] LABS: Hematocrit 31.6 % (42.0-52.0); Hemoglobin 10.1 g/dL (14.0-18.0); Immature Granulocyte Percent A 0.4 % (0-0.5); Lymphocytes Absolute Auto 1.79 K/mm3 (0.9-3.2); Mean Corpuscular HGB Conc 32.0 g/dl (32-36); Mean Corpuscular Hemoglobin 31.3 pg (26-34); Mean Corpuscular Volume 97.8 fl (80-100); Nucleated Red Blood Cells Absolute Auto 0.000 K/mm3 (0.0-0.012); Nucleated Red Blood Cells Perc 0.0 % (0.0-0.2); Platelet Count Result 385 k/mm3 (150-375); Red Blood Count 3.23 M/mm3 (4.6-6.20); White Blood Count 10.3 K/mm3 (4.5-10.0)
--- NOTE | 2024-10-03 10:39 | PM.DS ---
DS: Admitting Diagnosis Discharge Date 10/03/2024 Admitting Diagnosis Acute hypotension DS: Discharge Diagnosis Discharge Diagnosis (1) Sepsis: Qualifiers: Sepsis acute organ dysfunction status: unspecified Sepsis type: sepsis due to unspecified organism Qualified Code(s): A41.9 - Sepsis, unspecified organism Code(s): A41.9 - Sepsis, unspecified organism Status: Resolved (2) Leukocytosis: Code(s): D72.829 - Elevated white blood cell count, unspecified Status: Acute (3) Acute hypotension: Code(s): I95.9 - Hypotension, unspecified Status: Acute (4) Hearing loss in right ear: Code(s): H91.91 - Unspecified hearing loss, right ear Status: Acute (5) Generalized weakness: Code(s): R53.1 - Weakness Status: Acute (6) HTN (hypertension): Code(s): I10 - Essential (primary) hypertension Status: Chronic (7) Diastolic dysfunction: Code(s): I51.89 - Other ill-defined heart diseases Status: Acute (8) End-stage renal disease on peritoneal dialysis: Code(s): N18.6 - End stage renal disease; Z99.2 - Dependence on renal dialysis Status: Acute (9) Hyponatremia: Code(s): E87.1 - Hypo-osmolality and hyponatremia Status: Acute DS: Summary Hospital Course Reason for hospitalization: Hypotension Hospital Course: 54-year-old male with past medical history of peritoneal dialysis, CHF, hypertension hyperlipidemia presents the hospital with hypotension. Patient went to his PCP today for his post hospitalization follow-up for was found to be extremely hypo intensive and was sent to the emergency room. Patient states that he has been having problems with orthostatic hypotension since he left hospital on 09/22/2024. Where he was admitted for shortness of breath due to fluid overload from a PD catheter malfunction. On discharge patient's torsemide was held. Patient states that he was on midodrine however the to come off due to his blood pressures being too high. Lab work shows leukocytosis at 14.2 hemoglobin of 13.4, sodium of 128, chloride of 89, anion gap of 15 BUN of 64, creatinine of 12.33 which is baseline glucose of 122, lactic acid of 2.1, phosphorus is 7.6, proBNP of 4540, influenza A/B, RSV, COVID negative. CT chest abdomen pelvis shows small amount of intraperitoneal gas and fluid likely due to peritoneal dialysis. No acute findings found. Blood cultures obtained and were negative for growth. Chest x-ray showed mild pulmonary edema bilateral mid lower lung zones but otherwise was clear. Internal auditory canal CT was obtained which showed large right otomastoiditis effusion. ENT was consulted and called the nursing staff and recommended the patient follow-up in the outpatient setting with our office but otherwise did not recommend any further interventions were amended agents at this time. Blood pressures in the emergency room was 74/49 but improved after fluid bolus. Cardiology was consulted recommended starting metoprolol losartan on 09/29. Metoprolol was maintained at 6.25 b.i.d. and losartan was changed to 12.5 mg HS if SBP was more than 100. Patient was observed over the next following days and Nephrology was consulted regarding ESRD and hypotension. Blood pressures seem to be stabilizing throughout hospitalization and the last several days he has not had any measurements of hypotension. Orthostatic vital signs were negative before discharge. Patient was able to be seen by PT/OT on 09/30 and was cleared from their standpoint is not require any further rehab. They also did not recommend any further rehab with SNF or home health. Patient was able to ambulate throughout hospitalization and on 10/03 was visualized ambulating around department without any difficulties. Blood pressures have remained stable and blood cultures have remained cleared from any bacterial growth. Patient is otherwise hemodynamically stable and Nephrology was cold and GI also recommended discharge at this time. Plan for discharge home. Patient has no other complaints or concerns and will continue dialysis at home. Status at Discharge Functional status at discharge: independent ambulation Overall status at discharge: patient is back to baseline Time Spent with Patient Time attestation: Total time spent providing and/or coordinating discharge services: 34 Exam Narrative: General - Awake and alert. No acute distress Eyes - PERRLA, EOM intact ENT - No thrush, No erythema Left TM normal. Right TM perforation and dark discoloration Neck - No noticeable or palpable swelling Lymph Nodes - No lymphadenopathy Cardiovascular - RRR no m/r/g, no JVD Lungs: Clear to auscultation, No wheezing, use of accessory muscles, no crackles Skin - Skin warm and dry, no wounds or rashes Abdomen - Normal bowel sounds, abdomen soft and nontender, pd catheter Extremities - No edema, cyanosis or clubbing Musculoskeletal - 5/5 strength, normal range of motion, no swollen or erythematous joints. Neurological ? Alert and oriented x 3, CN 2-12 grossly intact. Psych: Normal mood and affect DS: Data Data Completed and Pending Labs on day of discharge: Labs from last 24 hours 10/03/24 10/03/24 10/01/24 06:53 06:51 05:33 WBC 10.3 H RBC 3.23 L Hgb 10.1 L Hct 31.6 L MCV 97.8 MCH 31.3 MCHC 32.0 RDW 12.8 Plt Count 385 H MPV 9.2 Immature Gran % (Auto) 0.4 Neut % (Auto) 61.3 Lymph % (Auto) 17.5 L Sherman % (Auto) 11.4 H Eos % (Auto) 8.8 H Baso % (Auto) 0.6 Lymph # (Auto) 1.79 Sherman # (Auto) 1.2 H Eos # (Auto) 0.9 H Baso # (Auto) 0.1 Abs Immat Gran (auto) 0.04 H Absolute Neuts (auto) 6.3 Absolute Nucleated RBC 0.000 Nucleated RBC % 0.0 Sodium 129 L Potassium 3.4 Chloride 95 L Carbon Dioxide 24 Anion Gap 10 BUN 52 H Creatinine 11.08 H Estim Creat Clear Calc 9 Estimated GFR 5 L Glucose 92 Calcium 8.1 L Ionized Calcium 4.4 L Phosphorus 4.7 H Albumin 3.0 L Preliminary micro results at discharge 09/28/24 19:15 Aerobic Culture - Preliminary Peritoneal Fluid 09/27/24 12:52 Blood Culture - Preliminary Blood 09/27/24 13:53 Blood Culture - Preliminary Blood Discharge Plan Discharge Attending physician on discharge: Leoncio Grullon Consulting providers: Gloria Dennis; Bibiana Mcguire; Quang Johnson; Dalton Sheffield; Joseph Holly Discharging Clinician: Joseph Holly Anticipated Discharge Date/Time: 10/03/24 10:34 Patient Disposition: Home with Home Health Service Activity: no straining Diet: heart healthy Discharge Instructions: Discharge disposition: Home Take medications as prescribed Monitor blood pressures Take caution while standing, rising, or moving Change positions slowly taking a break between each position change If you standing feel dizzy sit back down and take a break Encouraged to continue with yearly vaccinations Return to the emergency department if he developed sudden shortness of breath, chest pain, nausea, vomiting, upset stomach or intractable diarrhea Return to the emergency department if you develop fever greater than 101.5 Follow-up with the primary care physician within 1-2 weeks You have an appointment with Nephrology at the end of the month, plan to attend this appointment as usual. Follow-up with ENT in the outpatient setting, call their office today and schedule an appointment as soon as possible for your otomastoid effusion. Continue taking your ofloxacin ear drops for your right ear for the next 7 days. Thank you for choosing [facility] for your healthcare needs Per Care Coordination: A referral was made to the Department of Rehabilitation on your behalf. A customer assistance representative will call you from that agency and set up an appointment to discuss possible services at home that could include chore working services. [facility] has also been arranged to follow for physical therapy services at discharge. [facility] will contact you prior to their first visit. [facility] will follow for RN and PT/OT eval and treat. [facility] can be contacted at [phone]. Patient Instructions: Antibiotic Form Patient Language: Telugu Stand Alone Forms: General Discharge Information Follow-up/Referrals: Dalton Sheffield MD [Physician] - Angella Han APRN [Primary Care Provider] - Discharge Medications: New ofloxacin 0.3 % drops 10 drp RIGHT EAR DAILY 7 Days Qty: 5 0RF Continued calcium carbonate [Tums] 200 mg calcium (500 mg) tablet,chewable 200 mg PO HS PRN (Reason: Indigestion) omeprazole 20 mg capsule,delayed release(DR/EC) 20 mg PO DAILY Qty: 90 1RF nortriptyline 50 mg capsule 50 mg PO DAILY Qty: 90 1RF multivitamin Tablet 1 tablet PO DAILY Entresto 49-51 mg tablet 1 tablet PO BID Qty: 60 5RF dapagliflozin propanediol [Farxiga] 10 mg tablet 10 mg PO DAILY Qty: 30 5RF ferric citrate [Auryxia] 210 mg iron Tablet 210 mg PO TIDWM Rx Instructions: administer with a meal albuterol sulfate 90 mcg/actuation HFA aerosol inhaler 2 inh INHALATION QID PRN (Reason: shortness of breath or wheezing) calcium acetate(phosphat bind) 667 mg capsule 2,668 mg PO TIDWM ondansetron 4 mg tablet,disintegrating 8 mg translingual Q8H PRN (Reason: nausea and vomiting) gabapentin 100 mg Capsule 100 mg PO TID Qty: 90 0RF carvedilol 25 mg tablet 12.5 mg PO Q12H Qty: 60 5RF Rx Instructions: must administer with a meal/food melatonin 10 mg capsule 20 mg PO HS PRN (Reason: Insomnia) Qty: 30 0RF cinacalcet 30 mg tablet 90 mg PO DAILY escitalopram oxalate 10 mg tablet 10 mg PO DAILY torsemide 100 mg tablet See Rx Instructions .ROUTE .COMPLEX Qty: 30 11RF Dose Instruction: TAKE 1 TABLET BY MOUTH EVERY MORNING Patient Comments: on hold Rx Instructions: TAKE 1 TABLET BY MOUTH EVERY MORNING diphenoxylate-atropine 2.5-0.025 mg tablet 1 tablet PO QID PRN (Reason: diarrhea) Qty: 60 0RF hydrocodone-acetaminophen 5-325 mg tablet 1 tablet PO Q8H PRN (Reason: Pain Rated 4-10) Qty: 90 0RF buspirone 10 mg tablet See Rx Instructions .ROUTE .COMPLEX Qty: 90 0RF Dose Instruction: TAKE 1 TABLET BY MOUTH THREE TIMES DAILY Rx Instructions: TAKE 1 TABLET BY MOUTH THREE TIMES DAILY Date of admission: 09/28/24 10:32 Primary Care Provider: Angella Han Admitting Provider: Jamir Miranda Attending physician on admission: Jamir Miranda Condition: Stable Quality VTE Prophylaxis VTE prophylaxis: pharmacologic ordered
[2024-10-03 14:00] VITALS: BP 132/84; PULSE 74; RESP 14; O2SAT 98
== END 2024-10-03 14:40 | disposition home health service (06) | DRG 871 ==
LOC: ANHED 15:22 → ANH3MED 16:16
PROVIDERS: Internal Medicine Nephrology; Nurse Practitioner Acute Care; Admitting Provider Internal Medicine; Emergency Provider Emergency Medicine; PCP Nurse Practitioner Family; Visit Provider Physician Assistant
DX: A41.9 Sepsis, unspecified organism (principal); N18.6 End stage renal disease; I13.2 Hypertensive heart and chronic kidney disease with heart failure and with stage 5 chronic kidney disease, or end stage renal disease; E87.1 Hypo-osmolality and hyponatremia; I50.42 Chronic combined systolic (congestive) and diastolic (congestive) heart failure; H74.8X1 Other specified disorders of right middle ear and mastoid; I95.9 Hypotension, unspecified; D63.1 Anemia in chronic kidney disease; E78.5 Hyperlipidemia, unspecified; E56.8 Deficiency of other vitamins; G62.9 Polyneuropathy, unspecified; R29.6 Repeated falls; Z99.2 Dependence on renal dialysis; Z90.49 Acquired absence of other specified parts of digestive tract; Z87.891 Personal history of nicotine dependence; Z20.822 Contact with and (suspected) exposure to COVID-19
CPT/HCPCS: 36415; 70480; 71045; 71250; 74176; 80053; 80069; 80202; 82330; 82565; 82803; 83605; 83735; 83880; 84100; 84484; 85025; 85027; 87040; 87070; 87075; 87205; 87637; 87641; 89051; 90945; 93005; 96361; 96365; 96366; 96367; 96375; 97165; 99285; A9270; G0378; J0692; J0696; J2405; J3373; J7030; J7040; J7120

== ENCOUNTER 2024-10-09 14:07 | Inpatient (IN) | payer MEDICARE, MEDICAID, SELFPAY ==
[2024-10-09] VITALS (28 sets, daily range): BP systolic 81–131; BP diastolic 64–86; PULSE 96–118; RESP 15–26; TEMP 36.6–37.7; O2SAT 95–100; BMI 34.1; BMI 34.2
--- NOTE | ~2024-10-09 | XR_ITS ---
CHEST RADIOGRAPH, PA AND LATERAL CLINICAL HISTORY: weakness, hypotension, poss pna . COMPARISON: 09/27/2024 TECHNIQUE: PA and lateral views of the chest. FINDINGS The cardiomediastinal silhouette is unremarkable. The lungs are clear. IMPRESSION: No focal infiltrate or effusion. Reviewed, dictated and finalized at location A.
--- NOTE | 2024-10-09 14:17 | ECG_ITS ---
Test Date: 2024-10-09 14:11:42 Measurements Intervals [place] Rate: 102 P: 8 TX: 202 QRS: 15 QRSD: 113 T: 93 QT: 363 QTc: 474 Interpretive Statements SINUS TACHYCARDIA INCOMPLETE LEFT BUNDLE BRANCH BLOCK LEFT VENTRICULAR HYPERTROPHY WITH ST-T CHANGE CONSIDER INFERIOR INFARCT, AGE INDETERMINATE BASELINE ARTIFACT- I, II, AVR, AVL, AVF, V1-V2 ABNORMAL ECG Compared to ECG 09/27/2024 15:47:22 HEART RATE HAS INCREASED Electronically Signed On 10-09-2024 14:26:26 CDT by Quang Johnson D.O.
[2024-10-09 14:23] LABS: Hematocrit 40.4 % (42.0-52.0); Hemoglobin 12.8 g/dL (14.0-18.0); Immature Granulocyte Percent A 0.4 % (0-0.5); Lymphocytes Absolute Auto 1.67 K/mm3 (0.9-3.2); Mean Corpuscular HGB Conc 31.7 g/dl (32-36); Mean Corpuscular Hemoglobin 31.0 pg (26-34); Mean Corpuscular Volume 97.8 fl (80-100); Nucleated Red Blood Cells Absolute Auto 0.000 K/mm3 (0.0-0.012); Nucleated Red Blood Cells Perc 0.0 % (0.0-0.2); Platelet Count Result 469 k/mm3 (150-375); Red Blood Count 4.13 M/mm3 (4.6-6.20); White Blood Count 10.8 K/mm3 (4.5-10.0)
[2024-10-09 14:34] LABS: Alanine Aminotransferase 32 U/L (6-50); Albumin Level 3.5 g/dL (3.5-5.1); Alkaline Phosphatase 174 U/L (38-126); Anion Gap 17 mmol/L (4-12); Aspartate Amino Transferase 34 U/L (17-59); Bilirubin,Total 0.4 mg/dL (0.2-1.3); Blood Urea Nitrogen 32 mg/dL (9-20); Calcium 8.4 mg/dL (8.4-10.2); Carbon Dioxide 22 mmol/L (22-30); Chloride 94 mmol/L (98-107); Estimated CRCL calculation 9 ml/min; Estimated Glomerular Filt Rate 5; Glucose 122 mg/dL (65-110); Potassium 2.9 mmol/L (3.4-5.0); Sodium 133 mmol/L (137-145); Total Protein 6.3 g/dL (6.3-8.2)
--- NOTE | 2024-10-09 14:34 | ED.WEAKNESS ---
HPI - Weakness General Chief complaint: Weakness Stated complaint: HYPOTENSION Time Seen by Provider: 10/09/24 14:19 History of Present Illness HPI Narrative: This is a 54-year-old male with end-stage renal disease on peritoneal dialysis who presents to the ED for weakness and hypotension. Patient reports weakness since he was discharged from this facility after hypotension. He has continued to do his peritoneal dialysis catheter every night without any significant difficulties but went to his PCP appointment today when he was found to be hypotensive after him to be sent to the ED for further evaluation. At this time, patient does report weakness fatigue. Denies chest pain, shortness of breath, fevers, chills. Related Data Home Medications ?Medication ?Instructions ?Recorded ?Confirmed ?Last Taken ?Type calcium carbonate (Tums) 200 mg PO HS PRN Indigestion 07/20/23 10/09/24 09/27/23 History cinacalcet 30 mg tablet 90 mg PO DAILY 07/20/23 10/09/24 09/27/24 History multivitamin 1 tablet PO DAILY 07/29/23 10/09/24 09/27/24 History ferric citrate 210 mg iron tablet 210 mg PO TIDWM 09/28/23 10/09/24 09/27/24 History (Auryxia) escitalopram oxalate 10 mg tablet 10 mg PO DAILY 03/09/24 10/09/24 09/27/24 History albuterol sulfate 90 mcg/actuation 2 inh inhalation QID PRN shortness 03/29/24 10/09/24 Unknown History aerosol inhaler of breath or wheezing calcium acetate(phosphat bind) 667 2,668 mg PO TIDWM 03/29/24 10/09/24 09/27/24 History mg capsule ondansetron 4 mg disintegrating 8 mg translingual Q8H PRN nausea 03/29/24 10/09/24 Unknown History tablet and vomiting Allergies Allergy/AdvReac Type Severity Reaction Status Date / Time No Known Allergies Allergy Verified 10/09/24 13:06 Review of Systems Review of Systems: Gen.: Denies fevers or chills Eyes: Denies eye pain or visual change ENT: Denies congestion Respiratory: Denies shortness of breath or cough CV: Denies chest pain or palpitations GI: Denies abdominal pain nausea, emesis or diarrhea denies burning, urgency, frequency or hematuria Musculoskeletal: Denies back pain or muscle pain Neuro: Denies numbness, tingling, focal weakness Skin: Denies rash Except as documented, all other systems reviewed and negative FORMERLY [facility], [facility] Past Medical History Medical History Peritoneal dialysis catheter in place Polyneuropathy HTN (hypertension) Vitamin D3 deficiency Surgical History Surgical History History of appendectomy Family History Family History Father Hypertension Social History Social History Social History: Lives alone in an apartment. No pets. Smoking packs per day: 1 Smoking cigarettes per day: 20.0 Years smoked: 34 Smoking pack-years: 34.00 Smoking status: Former smoker Tobacco type: cigarettes Alcohol intake: current Alcohol use details: rarely Substance use: former Substance use type: marijuana Other substance usage details: OCCASIONAL Do You Feel Safe in your Home?: Yes Lack of Transportation: No Lack of Food: Sometimes True Current Housing: I Have Housing Concerned About Future Housing: No Difficulty Paying Gas/Electric Bills: YES Difficulty Paying for Meds: No Currently Unemployed: No Education: Bachelor's Degree Difficulty w/ Childcare or Family Care: No Living arrangements: with family Occupation/Education: unemployed Gender identity (if verbalized by the patient): Male Sexual Orientation (if Verbalized by the Patient): Straight or Heterosexual Spiritual care concerns: No Agree to blood products: Yes Exam Narrative: APPEARANCE: No acute distress, nontoxic, resting in bed EYES: EOMI HEENT: Normocephalic, atraumatic, OMM RESPIRATORY: No respiratory distress Clear to auscultation bilaterally with no rhonchi wheezing or rales. CARDIOVASCULAR: Regular rate and rhythm without murmurs rubs or gallops. ABDOMINAL: Soft, nontender, nondistended, no rebound or guarding. His catheter to left abdomen without any surrounding drainage or erythema MUSCULOSKELETAl: Moves all extremities. No clubbing, cyanosis or edema. NEURO: Awake and alert. Following commands, speech normal, no focal deficits SKIN:: Warm, dry. No rashes lesions or abrasions PSYCHIATRIC: Normal affect/mood, Course Vital Signs Vital signs: Vital Signs Temperature 97.9 F 10/09/24 14:13 Pulse Rate 100 10/09/24 14:13 Respiratory Rate 22 H 10/09/24 14:13 Blood Pressure 89/70 L 10/09/24 14:13 Pulse Oximetry 99 10/09/24 14:13 Oxygen Delivery Room Air 10/09/24 14:13 Temperature 99.8 F H 10/09/24 21:31 Pulse Rate 110 H 10/09/24 21:31 Respiratory Rate 15 10/09/24 21:31 Blood Pressure 131/74 10/09/24 21:31 Pulse Oximetry 98 10/09/24 21:31 Oxygen Delivery Room Air 10/09/24 14:13 MDM - Weakness MDM Narrative Medical decision making narrative: 54 year old male with history of ESRD on peritoneal dialysis who presented to the ED for weakness and hypotension. Patient had reported a systolic blood pressure of 60 at home. Initial blood pressure here was 89/70. Had received 1 L NS bolus from EMS. He was given an additional 1 L bolus. His blood pressure did improve to 110s/70s. However, orthostatic blood pressures were obtained and he did drop to a systolic in the 80s. Troponin also elevated at 0.05 and repeat was 0.067. Initial lactic acid 2.6 that improved on repeat. He was mildly hyponatremic and hypokalemic. I will not be replacing these at this time given his peritoneal dialysis. Chest x-ray showed no acute process. Patient will require admission given his transient hypotension likely due to dehydration and possibly over dialysis. Case was discussed with hospitalist who will admit the patient. Lab Data Attestation: I reviewed the patient's lab results. 10/09/24 14:18 10/09/24 14:18 Labs: Lab Results 10/09/24 10/09/24 10/09/24 Range/Units 14:18 14:56 17:43 WBC 10.8 H (4.5-10.0) K/mm3 RBC 4.13 L (4.6-6.20) M/mm3 Hgb 12.8 L (14.0-18.0) g/dL Hct 40.4 L (42.0-52.0) % MCV 97.8 (80-100) fl MCH 31.0 (26-34) pg MCHC 31.7 L (32-36) g/dl RDW 13.2 (11.5-14.5) % Plt Count 469 H (150-375) k/mm3 MPV 8.7 (7.4-10.4) fl Immature Gran % (Auto) 0.4 (0-0.5) % Neut % (Auto) 67.4 (45.5-73.1) % Lymph % (Auto) 15.5 L (18.3-44.2) % Kingfisher % (Auto) 10.4 H (2.6-8.5) % Eos % (Auto) 5.7 H (0-4.4) % Baso % (Auto) 0.6 (0.2-1.2) % Lymph # (Auto) 1.67 (0.9-3.2) K/mm3 Kingfisher # (Auto) 1.1 H (0.1-0.6) K/mm3 Eos # (Auto) 0.6 H (0-0.3) K/mm3 Baso # (Auto) 0.1 (0.0-0.1) K/mm3 Abs Immat Gran (auto) 0.04 H (0.00-0.031) K/mm3 Absolute Neuts (auto) 7.3 H (1.3-6.7) K/mm3 Absolute Nucleated RBC 0.000 (0.0-0.012) K/mm3 Nucleated RBC % 0.0 (0.0-0.2) % PT 13.4 (11.1-14.7) Seconds INR 1.0 APTT 29.9 (22.3-36.8) Seconds Sodium 133 L (137-145) mmol/L Potassium 2.9 L (3.4-5.0) mmol/L Chloride 94 L (98-107) mmol/L Carbon Dioxide 22 (22-30) mmol/L Anion Gap 17 H (4-12) mmol/L BUN 32 H D (9-20) mg/dL Creatinine 11.15 H (0.7-1.3) mg/dL Estim Creat Clear Calc 9 ml/min Estimated GFR 5 L (59 - ) Glucose 122 H (65-110) mg/dL Lactic Acid 2.6 H 1.3 (0.7-2.0) mmol/L Calcium 8.4 (8.4-10.2) mg/dL Total Bilirubin 0.4 (0.2-1.3) mg/dL AST 34 (17-59) U/L ALT 32 (6-50) U/L Alkaline Phosphatase 174 H (38-126) U/L Troponin I 0.059 H* 0.067 H* (0.000-0.034) ng/mL C-Reactive Protein 0.9 (<1.0) mg/dL Total Protein 6.3 (6.3-8.2) g/dL Albumin 3.5 (3.5-5.1) g/dL Imaging Data Radiologist's impression: Impressions Chest X-Ray 10/09/24 15:22 IMPRESSION: No focal infiltrate or effusion. ECG Data EKG #1: ECG completion date: 10/09/24 ECG completion time: 14:11 Interpretation: Sinus tachycardia rate of 102, incomplete left bundle-branch block, no acute ST or T-wave changes Discharge Plan Discharge Clinical Impression: ESRD (end stage renal disease) on dialysis, Elevated troponin, Acute hyponatremia, Acute hypokalemia, Transient hypotension Patient Disposition: Home Condition: Guarded Prognosis
[2024-10-09 15:32] LABS: INR 1.0; Prothrombin Time 13.4 Seconds (11.1-14.7)
[2024-10-09 15:33] LABS: Partial Thromboplastin Time 29.9 Seconds (22.3-36.8)
--- OUTSIDE RECORDS SUMMARY | 2024-10-09 15:37 | XMS_ITS ---
Author Organization [facility] Address [address] [place] [address] Care Team Providers Care Practice Billing Associate Name Role Phone Janet Moss RN Unavailable [phone] Quang Johnson DO Unavailable [phone] Angella Han NP Primary Care Provider [phone] Transplant Episode Kidney Candidate [facility] ([place], [place]) [facility] Center waitlisted on 08/24/2023 Marked as Inactive on 08/24/2023 Reason: 04 - Insurance Issues Kidney CoordinatorJanet Moss RN Fax: N/A Email: N/A Scores Score Value Updated Exceptions/Reas ons CPRA Not available EPTS (Calc) 32 10/09/2024 [place] Organ 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 Care Team Name Role Phone Fax Email Janet Moss RN Kidney Coordinator [phone] N/A N/A Xavier Marcus MD Referring Physician [phone] N/A Janet Muse Collaborating Supervising Physician [phone] N/A N/A Events Pre-Transplant Referred: 10/05/2022 Evaluation began: 02/04/2023 Committee: 08/23/2023 UNOS qualified: 11/27/2021 Center waitlisted: 08/24/2023 Dialysis History Dialysis History Start End Type Comments Center 11/27/2021 Peritoneal [facility] Dialysis [facility] Information Center Phone Fax Address [facility] [phone] [phone] [facility] [address] [facility] [address]
--- OUTSIDE RECORDS SUMMARY | 2024-10-09 15:37 | XMS_ITS | Clinical Summary ---
Author Organization [facility] Address [address] [place] [address] Care Team Providers Care Environmental Compliance Specialist Name Role Phone Janet Moss RN Unavailable [phone] Quang Johnson DO Unavailable [phone] Angella Han NP Primary Care Provider Allergies No known active allergies Medications albuterol [...] Encounters Date Type Department Care Team Description 10/06/2024 Telephone [facility] Transplant Kidney [address] [facility] [email or web address] [phone] [place] [address] Janet Moss RN 10/06/2024 Telephone [facility] Transplant Kidney [address] [place] [address] [email or web address] [phone] [place] [address] Janet Moss RN 09/18/2024 [facility] Transplant Kidney [address] [facility] [email or web address] [phone] [place] [address] Janet Moss RN 09/18/2024 Telephone [facility] Transplant Kidney [address] [facility] [address] [phone] [place] [address] Janet Moss, RN 09/13/2024 [facility] Scheduling [address] [place] [address] Scar Carroll MD PhD Scheduling Appointments 07/27/2024 10:00 AM CDT - 07/27/2024 11:59 PM CDT Hospital Encounter [facility] [address] [place] [address] ESRD (end stage renal disease) ([facility]) Discharge Disposition: Discharge to [...] on file Legal Sex Male 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 AM 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 Gender Identity Not on file Sexual Orientation Not on file Obstetrics History Last Filed Vital Signs Vital Sign Reading Time Taken Comments Blood Pressure 163/115 04/12/2023 8:12 AM 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 Pulse 77 04/12/2023 8:12 AM 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 Temperature 36.7 C (98.1 F) 04/05/2023 1:04 PM 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 Respiratory Rate - - Oxygen Saturation - - Inhaled Oxygen Concentration - - Weight 112.5 kg (248 lb 0.3 oz) 04/12/2023 8:12 AM 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 Height 175.3 cm (5' 9) 04/05/2023 1:04 PM 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 Body Mass Index 36.63 04/05/2023 1:04 PM 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 Plan of Treatment Health Maintenance Due Date Last Done Comments Colon Cancer Screening-Colonoscopy 1969 Depression Screening 1969 Regular Well Visit/Exam 18-64 1987 Zoster Vaccine (1 of 2) 2019 Pneumococcal vaccine <65 (2 of 2 - PPSV23, PCV20, or PCV21) 08/28/2019 07/03/2019, 02/27/2019, 02/27/2019 Influenza Vaccine (#1) [...] HEPATITIS C ANTIBODY Routine 04/05/2023 11:27 AM 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 End stage renal disease (HCC) PSA SCREEN Routine 04/05/2023 11:27 AM 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 End stage renal disease (HCC) from Last 3 Months or Most Recently Relevant to Health Maintenance Results * HLA Antibody Screen by PRA or SAB per Schedule (Class I and Class II) (07/27/2024 10:00 AM CDT) Blood 07/27/2024 10:0 0 AM CDT Narrative HISTOTR[facility] - 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 Sample received in lab. PRA Screen ordered. [...] method developed and validated by the [facility] HLA laboratory based on an FDA- approved IVD kit (LABScreen PRA, [employer], [place], [place]). Interpretive comments: The percentage of beads with MFI > 750 is reported, which indicates the percentage of donor population estimated to be incompatible with the patient tested. PRA > 0% is consistent with alloimmunization to HLA. Testing performed at the [facility] Laboratory, [address] [place] [address], 5th floor, [place], [address]. [facility] # [id number]. Breanne Nieto, Ph.D., Quantitative Strategy Analyst, HLA Laboratory Abdoulaye Kraft M.D., Ph.D., Research Dietitian, HLA Laboratory Denise Abreu, Ph.D., [place] Research Dietitian, [facility] Clinical Laboratories Current methodology and interpretive comments last revised on 06/16/2017. Alejo Florence MD LAB BLOOD ORDERABLES Final Resu lt HISTOTR[facility] * PSA screen (04/05/2023 11:27 AM 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) PSA-Total 0.28 <=3.90 ng/mL [facility] Comment: Interpretive Data AGE SEX REFERENCE [...] revised 21. Blood 04/05/2023 11:2 7 AM 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 04/05/2023 12:10 PM 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 Narrative [facility] - 04/05/2023 12:57 PM 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 This lab is being obtained as part of a Kidney transplant evaluation, is time sensitive, and should only be drawn during the evaluation visit at [facility] 3C Lab. Abena Brown MD LAB BLOOD ORDERABL ES Final Result [facility] [place] [address] * Hepatitis C antibody Blood (04/05/2023 11:27 AM 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) Hep C Ab Nonreactive Nonreactive [facility] Comment:Antibodies to HCV no t detected. Does NOT exclude the possibility of recent exposure to HCV. Current interpretive data was last revised on 21 Blood 04/05/2023 11:2 7 AM 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 04/05/2023 12:09 PM 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 Narrative [facility] - 04/05/2023 1:03 PM 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 This lab is being obtained as part of a Kidney transplant evaluation, is time sensitive, and should only be drawn during the evaluation visit at [facility] 3CAM Lab. Abena Brown MD LAB MICROBIOLOGY - GENERAL ORDERABLES Final Result [facility] [place] [address] from Last 3 Months or Most Recently Relevant to Health Maintenance Insurance MEDICARE [facility] MEDICARE MEDICARE [employer] Care Teams Environmental Compliance Specialist Relationship Specialty Start Date End Date Angella Han NP [address] [facility] [address] [place], [place] [id number] PCP - General Nurse Practitioner 08/14/24 Janet Moss, RN [address] [facility] [address] [place] [id number] [employer] [place] Worker 10/06/22 Quang Johnson DO [address] [place] [address] Referring Physician Internal Medicine 05/18/24
[2024-10-09 15:39] LABS: CRP 0.9 mg/dL (<1.0)
[2024-10-09 15:55] LABS: Troponin I 0.059 ng/mL (0.000-0.034)
--- NOTE | 2024-10-09 18:04 | ECG_ITS ---
Test Date: 2024-10-09 18:11:06 Measurements Intervals [place] Rate: 105 P: 24 [place]: 206 QRS: 15 QRSD: 105 T: 114 QT: 364 QTc: 481 Interpretive Statements SINUS TACHYCARDIA BORDERLINE AV CONDUCTION DELAY INCOMPLETE LEFT BUNDLE BRANCH BLOCK DELAYED PRECORDIAL R/S TRANSITION ST-T WAVE ABNORMALITY IN LAT/HIGH LAT LEADS- CONSIDER ISCHEMIA BASELINE ARTIFACT- I, II, III, AVR, AVL, AVF, V2 ABNORMAL ECG Compared to ECG 10/09/2024 14:11:42 NO SIGNIFICANT CHANGE Electronically Signed On 10-09-2024 19:48:56 CDT by Quang Johnson D.O.
[2024-10-09 18:18] LABS: Troponin I 0.067 ng/mL (0.000-0.034)
[2024-10-09] MEDS: LACTATED RINGERS 1,000 ML 150 ML IV CONT (19:30)
[2024-10-09] MEDS: POTASSIUM CHLORIDE 20 MEQ ER TABLET 40 MEQ PO (19:31)
--- NOTE | 2024-10-09 21:08 | ADMGEN ---
This patient, Real Rolon, was admitted to IMU Room 214-01. Patient/family oriented to hospital policies and general routines including ID bracelet, bed and alarms, visiting hours, pain management, procedures, bathroom and other care routines, personal items, smoking policy, room service/diet, and visiting hours. Information on how to activate the Rapid Response Team has been discussed. Patient/Family are encouraged to report perceived risks to care and to ask questions if they do not understand what they are told or what they should do.
--- NOTE | 2024-10-09 22:04 | PM.IMHP ---
H&P: HPI History of Present Illness Date/Time: 10/09/24 22:04 Chief Complaint: Weakness, ?dizziness? and low blood pressure Narrative: Pleasant 54-year-old male with complex past medical history including end-stage renal disease on peritoneal dialysis, congestive heart failure, essential hypertension, peripheral neuropathy and orthostatic hypotension who presented to the ER due to weakness and hypotension. The patient was recently hospitalized 09/28/2024 through 10/03/2024 for orthostatic hypotension with various blood pressure medication changes and a consult to Cardiology and Nephrology. The patient has orthostatic hypotension had resolved prior to discharge. Patient was discharged on 6.25 mg of metoprolol b.i.d. and is losartan was decreased to 12.5 mg. It is unclear which medication he may be taking. He was continued on diuretic therapy but is discharge summary states that he was continued on torsemide but the patient's home med rec states that he is on Lasix 40 mg b.i.d.. He is adamant that he is been taking Lasix and not torsemide. He also had perforated ear drum during his last hospitalization and was discharged on ox oxfloxin drops to the right ear. He has had persistent weakness since discharge from the hospital. He went for follow-up with primary care physician today and was found to be hypotensive with a blood pressure of 80/60 and repeat of 60/40 and was sent to the ER for evaluation. He has also been having some generalized fatigue. He denied having any fevers. On her arrival to the ER he had some mild sinus tachycardia he received a normal saline bolus with resolution of hypotension. Repeat orthostatics after fluid bolus still demonstrated orthostasis with drop in blood pressure of 28 points in systolic blood pressure when going from supine to sitting. He denies any fevers or chills at home. He was initially febrile in the ER but after arrived to the IMU is temperature was 99.8. He denies any nausea or vomiting. He does admit that his symptoms are early dizzy but feels more lightheaded. He has been having some dyspnea on exertion but no more than he would consider at baseline. His issue was more with feeling fatigued and ?wiped out?. He does has no energy for usual activities. He last did his peritoneal dialysis on the night the . He took 2.5 L off. He reports that he makes very little urine at baseline. The patient had previously been on midodrine awhile back for orthostatic hypotension and had been discontinued due to hypertension and exacerbation of heart failure. Review of Systems Review of Systems: 12 systems were reviewed with pertinent positives and negatives per HPI. Except as documented in the HPI, all other systems were reviewed and are negative. [facility] Past Medical History Medical History (Updated 10/11/24 @ 00:36 by Crissy Sarmiento DO) Pulmonary hypertension Mild on echo 07/2024 Congestive heart failure Diastolic heart failure echocardiogram 07/25/2024: EF 55-60, abnormal diastolic function, E/E 21 is elevated, moderate left atrial enlargement, mild pulmonary hypertension Eczema Peripheral neuropathy Vitamin B1 deficiency neuropathy Anemia of chronic disease End-stage renal disease on peritoneal dialysis Since [address] Marcus Chronic hyponatremia Severe protein-calorie malnutrition B12 deficiency Dyslipidemia Peripheral vascular disease Diastolic dysfunction Orthostatic hypotension Essential hypertension Vitamin D3 deficiency Surgical History Surgical History Peritoneal dialysis catheter in place History of appendectomy Family History Family History Father Hypertension Social History Social History (Updated 10/11/24 @ 00:32 by Crissy Sarmiento DO) Social History: He lives with his mother. No pets. 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 He is single and has never been . He started smoking when he was in college and stopped smoking around March 2024. Code status: Full code Surrogate decision maker: Lawrence Bryan (mother) Smoking packs per day: 1 Smoking cigarettes per day: 20.0 Years smoked: 34 Smoking pack-years: 34.00 Smoking status: Former smoker Tobacco type: cigarettes Alcohol intake: current Alcohol use details: rarely Substance use: former Substance use type: marijuana Other substance usage details: OCCASIONAL Do You Feel Safe in your Home?: Yes Lack of Transportation: No Lack of Food: Sometimes True Current Housing: I Have Housing Concerned About Future Housing: No Difficulty Paying Gas/Electric Bills: YES Difficulty Paying for Meds: No Currently Unemployed: No Education: Bachelor's Degree Difficulty w/ Childcare or Family Care: No Living arrangements: with family Occupation/Education: unemployed Gender identity (if verbalized by the patient): Male Sexual Orientation (if Verbalized by the Patient): Straight or Heterosexual Spiritual care concerns: No Agree to blood products: Yes Meds Home Medications and Allergies Home Medications ?Medication ?Instructions ?Recorded ?Confirmed ?Type calcium carbonate (Tums) 200 mg PO HS PRN Indigestion 07/20/23 10/09/24 History cinacalcet 30 mg tablet 90 mg PO DAILY 07/20/23 10/09/24 History multivitamin 1 tablet PO DAILY 07/29/23 10/09/24 History ferric citrate 210 mg iron tablet 210 mg PO TIDWM 09/28/23 10/09/24 History (Auryxia) omeprazole 20 mg capsule,delayed 20 mg PO DAILY #90 caps 03/08/24 10/09/24 Rx release escitalopram oxalate 10 mg tablet 10 mg PO DAILY 03/09/24 10/09/24 History albuterol sulfate 90 mcg/actuation 2 inh inhalation QID PRN shortness 03/29/24 10/09/24 History aerosol inhaler of breath or wheezing calcium acetate(phosphat bind) 667 2,668 mg PO TIDWM 03/29/24 10/09/24 History mg capsule ondansetron 4 mg disintegrating 8 mg translingual Q8H PRN nausea 03/29/24 10/09/24 History tablet and vomiting diphenoxylate-atropine 2.5 1 tablet PO QID PRN diarrhea #60 05/29/24 10/09/24 Rx mg-0.025 mg tablet tabs hydrocodone 5 mg-acetaminophen 325 1 tablet PO Q8H PRN Pain Rated 08/15/24 10/09/24 Rx mg tablet 4-10 #90 tabs buspirone 10 mg tablet See Rx Instructions .Route 09/11/24 10/09/24 Rx .COMPLEX #90 tabs gabapentin 100 mg capsule 100 mg PO TID #90 caps 09/22/24 10/09/24 Rx melatonin 10 mg capsule 20 mg (2 x 10 mg) PO HS PRN 09/22/24 10/09/24 Rx Insomnia #30 caps losartan 25 mg tablet 12.5 mg (1/2 x 25 mg) PO DAILY 1 10/03/24 10/09/24 Rx month #15 tabs metoprolol tartrate 25 mg tablet 6.25 mg (1/4 x 25 mg) PO BID 1 10/03/24 10/09/24 Rx month #15 tabs furosemide 40 mg tablet (Lasix) 40 mg PO BID 10/09/24 10/09/24 History nortriptyline 50 mg capsule 50 mg PO HS 10/09/24 10/09/24 History Allergies Allergy/AdvReac Type Severity Reaction Status Date / Time No Known Allergies Allergy Verified 10/09/24 13:06 Vital Signs Vital Signs - 24 hr 10/09/24 14:13 10/09/24 14:27 10/09/24 14:30 Temperature 97.9 F Pulse Rate 100 103 H 100 Respiratory Rate 22 H 24 H 26 H Blood Pressure 89/70 L 91/64 L Pulse Oximetry 99 98 97 Oxygen Delivery Room Air 10/09/24 14:31 10/09/24 14:45 10/09/24 14:46 Temperature Pulse Rate 104 H 97 100 Respiratory Rate 21 H 19 23 H Blood Pressure 88/68 L Pulse Oximetry 96 99 99 Oxygen Delivery 10/09/24 15:00 10/09/24 15:01 10/09/24 15:15 Temperature Pulse Rate 97 98 97 Respiratory Rate 25 H 25 H 22 H Blood Pressure 102/75 Pulse Oximetry 100 95 Oxygen Delivery 10/09/24 15:30 10/09/24 16:19 10/09/24 16:38 Temperature Pulse Rate 96 101 H 103 H Respiratory Rate 20 17 Blood Pressure 109/86 Pulse Oximetry 100 Oxygen Delivery 10/09/24 16:39 10/09/24 17:27 10/09/24 18:16 Temperature Pulse Rate 106 H 106 H 104 H Respiratory Rate 22 H 21 H Blood Pressure 81/70 L 101/71 106/79 Pulse Oximetry 100 Oxygen Delivery 10/09/24 18:17 10/09/24 18:30 10/09/24 18:31 Temperature Pulse Rate 102 H 103 H 105 H Respiratory Rate 23 H 21 H 23 H Blood Pressure 109/78 Pulse Oximetry 99 99 Oxygen Delivery 10/09/24 18:45 10/09/24 18:46 10/09/24 19:06 Temperature Pulse Rate 106 H 104 H 104 H Respiratory Rate 24 H 22 H 20 Blood Pressure 108/74 Pulse Oximetry Oxygen Delivery 10/09/24 19:15 10/09/24 19:16 10/09/24 21:31 Temperature 99.8 F H Pulse Rate 104 H 107 H 110 H Respiratory Rate 22 H 15 15 Blood Pressure 106/76 131/74 Pulse Oximetry 100 98 Oxygen Delivery Exam Narrative: Weight 108.2 kg BMI 34.2 Const: Other: No acute distress, appears older than stated age, obese HENMT: Other: Mucous membranes are tacky, crowded posterior oropharynx, edentulous in upper and lower jaw Eyes: Other: Pupils are equal and reactive, no scleral icterus Neck: Other: No JVD, no lymphadenopathy, large neck circumference Resp: Other: Clear to auscultation bilaterally, no increased work of breathing Cardio: Other: Sinus tachycardia, 2+ bilateral radial and pedal pulses, no murmur GI: Other: Soft, nondistended, nontender, normoactive bowel sounds, peritoneal dialysis catheter present without any surrounding erythema Skin: Other: Slightly jaundiced tone but no scleral icterus, Neuro: Other: Alert oriented x4, speech is clear, no facial asymmetry, no localizing neurologic deficits noted during the course of conversation Extrem: Other: No clubbing, cyanosis or edema Psych: Other: Appropriate mood and affect, pleasant and cooperative H&P: Results Labs Labs: Laboratory Tests 10/09/24 14:18 10/09/24 14:18 10/09/24 10/09/24 10/09/24 14:18 14:56 17:43 WBC 10.8 H RBC 4.13 L Hgb 12.8 L Hct 40.4 L MCV 97.8 MCH 31.0 MCHC 31.7 L RDW 13.2 Plt Count 469 H MPV 8.7 Immature Gran % (Auto) 0.4 Neut % (Auto) 67.4 Lymph % (Auto) 15.5 L Stewart % (Auto) 10.4 H Eos % (Auto) 5.7 H Baso % (Auto) 0.6 Lymph # (Auto) 1.67 Stewart # (Auto) 1.1 H Eos # (Auto) 0.6 H Baso # (Auto) 0.1 Abs Immat Gran (auto) 0.04 H Absolute Neuts (auto) 7.3 H Absolute Nucleated RBC 0.000 Nucleated RBC % 0.0 PT 13.4 INR 1.0 APTT 29.9 Sodium 133 L Potassium 2.9 L Chloride 94 L Carbon Dioxide 22 Anion Gap 17 H BUN 32 H D Creatinine 11.15 H Estim Creat Clear Calc 9 Estimated GFR 5 L Glucose 122 H Lactic Acid 2.6 H 1.3 Calcium 8.4 Total Bilirubin 0.4 AST 34 ALT 32 Alkaline Phosphatase 174 H Troponin I 0.059 H* 0.067 H* C-Reactive Protein 0.9 Total Protein 6.3 Albumin 3.5 Impressions Chest X-Ray 10/09/24 15:22 IMPRESSION: No focal infiltrate or effusion. EKG reviewed x3 with ice EKG independently reviewed interpreted in stable compared to prior. Initial EKG for admission with report below. Test Date: 2024-10-09 14:11:42 Measurements Intervals [place] Rate: 102 P: 8 [place]: 202 QRS: 15 QRSD: 113 T: 93 QT: 363 QTc: 474 Interpretive Statements SINUS TACHYCARDIA INCOMPLETE LEFT BUNDLE BRANCH BLOCK LEFT VENTRICULAR HYPERTROPHY WITH ST-T CHANGE CONSIDER INFERIOR INFARCT, AGE INDETERMINATE BASELINE ARTIFACT- I, II, AVR, AVL, AVF, V1-V2 ABNORMAL ECG Compared to ECG 09/27/2024 15:47:22 HEART RATE HAS INCREASED All imaging and EKGs personally reviewed and interpreted. And unless stated otherwise agree with radiologic and cardiology interpretation. Assessment and Plan Assessment and plan (1) Orthostatic hypotension: Code(s): I95.1 - Orthostatic hypotension Status: Acute (2) Autonomic dysfunction: Code(s): G90.9 - Disorder of the autonomic nervous system, unspecified Status: Acute (3) Elevated troponin: Code(s): R79.89 - Other specified abnormal findings of blood chemistry Status: Acute (4) Acute hypokalemia: Code(s): E87.6 - Hypokalemia Status: Acute (5) Peripheral neuropathy: Qualifiers: Peripheral neuropathy type: polyneuropathy, unspecified Qualified Code(s): G62.9 - Polyneuropathy, unspecified Code(s): G62.9 - Polyneuropathy, unspecified Status: Chronic (6) End-stage renal disease on peritoneal dialysis: Code(s): N18.6 - End stage renal disease; Z99.2 - Dependence on renal dialysis Status: Acute Plan Patient presents with recurrent hypotension. Patient's hypotension is likely multifactorial due to a combination of the patient's antihypertensive medications which have been adjusted during his last hospitalization but had been placed back on previous dosing instead of the adjusted medications and exacerbated by patient's underlying orthostatic hypotension due to autonomic dysfunction from polyneuropathy. Patient's blood pressures improved with IV fluid administration and remained stable although still having orthostatic changes. He want to avoid giving the patient too much fluid given his history of diastolic dysfunction and dependence on peritoneal dialysis. Patient may benefit from Bright hose while up and ambulating. Will discuss this as an option with the patient. At this time will place patient back on his home Coreg and will hold the patient's home Lasix. Will hold off on giving the patient any further fluid boluses. And monitor strict I&O's. Patient did have minimally elevated troponins likely due to demand ischemia from hypotension and sinus tachycardia resulting in mild demand ischemia in the setting of end-stage renal disease. Patient does have sinus tachycardia and temperatures are elevated to 99.8. The patient may have underlying infection. Blood cultures were obtained in the ER. Chest x-ray was negative for acute process. Will send peritoneal fluid for Gram stain and culture. Will hold off on starting antibiotics until re-evaluation of clinical status and repeat CBC has been ordered for a.m.. Patient does have some mild hypokalemia in the setting of end-stage renal disease on peritoneal dialysis. Patient did receive 40 mEq of p.o. potassium. Nephrology has been consulted for peritoneal dialysis management. Will repeat electrolyte panel in a.m.. MEDICAL DECISION MAKING NARRATIVE -Spoke with the ED provider in detail regarding patient's evaluation, workup and management -Patient seen and examined at bedside -Collaborated with patient's nurse at the bedside in detail and addressed all concerns -Labs, electrolytes, radiology, investigations and test results reviewed -ED/Consult/Nursing/Ancilliary notes on the chart reviewed and appreciated -Spoke with patient and patient agreeable with plan. Quality VTE Prophylaxis VTE prophylaxis: pharmacologic ordered (Heparin 5000 units subQ q.12 hours.) Hospitalist [facility] Advance Care Plan I have confirmed that the patient's Advanced Care Plan is present, code status is documented, or surrogate decision maker is listed in patient medical record.: Yes Medication Reconciliation I have utilized all available resources to obtain, update and review the patients current medications (includes all prescriptions, OTC, herbals, cannabis, and nutritional supplements).: Yes
--- NOTE | 2024-10-09 22:18 | ECG_ITS ---
Test Date: 2024-10-09 22:24:39 Measurements Intervals [place] Rate: 115 P: 161 [place]: 208 QRS: 178 QRSD: 107 T: 52 QT: 313 QTc: 434 Interpretive Statements SINUS TACHYCARDIA WITH OCCASIONAL SUPRAVENTRICULAR PREMATURE COMPLEXES ARM LEADS REVERSED BORDERLINE AV CONDUCTION DELAY INCOMPLETE LEFT BUNDLE BRANCH BLOCK ST-T WAVE ABNORMALITY IN LATERAL LEADS- CONSIDER ISCHEMIA BASELINE ARTIFACT- I, II, III, AVR, AVL, AVF, V2 ABNORMAL ECG Compared to ECG 10/09/2024 18:11:06 HEART RATE HAS INCREASED Electronically Signed On 10-10-2024 06:15:11 CDT by Quang Johnson D.O.
[2024-10-09] MEDS: NORTRIPTYLINE HCL 25 MG CAPSULE 50 MG PO (22:31)
[2024-10-09] MEDS: MELATONIN 5 MG TABLET 20 MG PO (22:31)
[2024-10-09] MEDS: GABAPENTIN 100 MG CAPSULE PO (22:32)
[2024-10-09] MEDS: CALCIUM ACETATE 667 MG TABLET 2668 MG PO (22:32)
[2024-10-09] MEDS: HYDROcodone/acetaminophen (*CRX) 5-325 MG TABLET 1 TAB PO (22:32)
[2024-10-09] MEDS: METOPROLOL TARTRATE 6.25 MG TABLET PO (22:33)
[2024-10-10] VITALS (16 sets, daily range): BP systolic 71–135; BP diastolic 52–89; PULSE 92–110; RESP 12–24; TEMP 36.3–37.4; O2SAT 95–99; BMI 34.1
[2024-10-10 05:25] LABS: Hematocrit 37.3 % (42.0-52.0); Hemoglobin 11.7 g/dL (14.0-18.0); Mean Corpuscular HGB Conc 31.4 g/dl (32-36); Mean Corpuscular Hemoglobin 30.9 pg (26-34); Mean Corpuscular Volume 98.4 fl (80-100); Platelet Count Result 446 k/mm3 (150-375); Red Blood Count 3.79 M/mm3 (4.6-6.20); White Blood Count 10.8 K/mm3 (4.5-10.0)
[2024-10-10 05:26] LABS: Anion Gap 12 mmol/L (4-12); Blood Urea Nitrogen 34 mg/dL (9-20); Calcium 8.6 mg/dL (8.4-10.2); Carbon Dioxide 22 mmol/L (22-30); Chloride 98 mmol/L (98-107); Estimated CRCL calculation 8 ml/min; Estimated Glomerular Filt Rate 5; Glucose 87 mg/dL (65-110); Magnesium 1.5 mg/dL (1.6-2.3); Potassium 3.2 mmol/L (3.4-5.0); Sodium 132 mmol/L (137-145)
[2024-10-10 06:42] LABS: MRSA (PCR) NOT DETECTED (NOT DETECTE)
[2024-10-10] MEDS: MAGNESIUM SULF 2 GM/WATER 50ML 2 GM/50 ML BAG IVPB (09:36)
[2024-10-10] MEDS: METOPROLOL TARTRATE 6.25 MG TABLET PO ×2 (10:01→20:36)
[2024-10-10] MEDS: PANTOPRAZOLE 40 MG TABLET PO (10:02)
[2024-10-10] MEDS: CALCIUM ACETATE 667 MG TABLET 2668 MG PO ×3 (10:02→16:59)
[2024-10-10] MEDS: GABAPENTIN 100 MG CAPSULE PO ×3 (10:02→20:36)
[2024-10-10] MEDS: CINACALCET 30 MG TABLET 90 MG PO (10:02)
[2024-10-10] MEDS: POTASSIUM CHLORIDE 20 MEQ ER TABLET 40 MEQ PO (10:03)
[2024-10-10] MEDS: MULTIVITAMINS THERAPEUTIC TAB (*BKC) 1 TABLET PO (10:03)
[2024-10-10] MEDS: ESCITALOPRAM OXALATE 10 MG TABLET PO (10:03)
--- NOTE | 2024-10-10 10:20 | P.CONNP_ITS ---
Assessment and Plan Assessment and plan (1) End stage renal disease: Code(s): N18.6 - End stage renal disease Status: Chronic Assessment and Plan: * continue CCPD while hospitalized * given #2, attempting to minimize fluid removal with dialysis treatments * follow electrolytes, volume status, and clearance (2) Hypotension: Code(s): I95.9 - Hypotension, unspecified Status: Acute Assessment and Plan: * as noted on presentation * responded well to IVF resuscitation * possibly due to aggressive fluid removal/ultrafiltration with dialysis on recent hospitalization * possible autonomic dysfunction playing a role(?) * follow trend of hemodynamics (3) Anemia: Code(s): D64.9 - Anemia, unspecified Status: Acute Assessment and Plan: * H/H in range for ESRD * holding Epogen * follow trend of H/H (4) Hyponatremia: Code(s): E87.1 - Hypo-osmolality and hyponatremia Status: Chronic Assessment and Plan: * relatively stable (but fluctuates at baseline) * due to fluctuations in volume status, water intake and renal failure * follow trend of sodium (5) Congestive heart failure: Code(s): I50.9 - Heart failure, unspecified Status: Chronic Assessment and Plan: * known history of systolic and diastolic dysfunction * last Echo (July 2024) noted: * left ventricular systolic function is normal, estimated at 55-60% * left ventricular diastolic function is abnormal * mitral valve has a moderately calcified annulus * mild mitral valve regurgitation * mild pulmonary hypertension, estimated pulmonary arterial systolic pressure is 45 mmHg * trace pulmonic regurgitation * appears compensated at this time (6) HTN (hypertension): Code(s): I10 - Essential (primary) hypertension Status: Chronic Assessment and Plan: * despite known history, low BP on presentation * BP medications on hold for now * follow trend of hemodynamics (7) Neuropathy: Code(s): G62.9 - Polyneuropathy, unspecified Status: Acute Assessment and Plan: * known diagnosis * etiology not entirely clear * follows with Neurology as an outpatient (8) Generalized weakness: Code(s): R53.1 - Weakness Status: Resolved Assessment and Plan: * related to low BP and possible deconditioning from recent hospitalizations * PT/OT as tolerated * continue supportive therapy I will continue to follow the patient with you while he remains hospitalized and make further recommendations as deemed necessary. Thank you for allowing me to participate in the care of this patient. L History of Present Illness Reason for Consult Consult date: 10/10/24 Reason for consult: end stage renal disease Chief Complaint Chief complaint: Transient hypotension, Elevated troponin History of Present Illness Narrative: The patient is a 53-year-old male with a past medical history as outlined below who presented to [facility] Emergency Room due to hypotension. Patient went to his PCP yesterday day for his post hospitalization follow-up. While there, he found to be extremely hypotensive with systolic BPs in the 60s range. This further complicated by complaints of dizziness, lightheadedness, and fatigue. He was recently hospitalized here at [facility] in late August 2024 for fluid overload requiring aggressive ultrafiltration to optimize his fluid status. He was then re-admitted about a week later in early September 2024 with hypotension with associated orthostasis requiring IVFs, minimizing ultrafiltration with dialysis, and adjustment in his medications with clinical improvement in his blood pressure and symptoms by the time of discharge. He does have a history of orthostatic hypotension in the past requiring midodrine therapy but this was discontinued when had issues with hypertension. Given the severity of his hypotension and associated symptoms, he was transferred to the ER from his PCP's office for further assessment. Workup and evaluation in the emergency room demonstrated evidence of hypotension with initial blood pressure of 89/70. He apparently received a L of normal saline by EMS on route to the emergency room and received another L bolus on his arrival to the emergency room. His repeat blood pressure was 110 over 70. However, he was noted to be orthostatic with his systolic BP dropping to the 80s with upright positioning. Routine blood work demonstrated CBC with a mildly elevated white blood cell count of 10.8 and normal platelet count with stable hemoglobin hematocrit. His chemistry panel was consistent with his known history of end-stage renal disease with mild hyponatremia and hypokalemia with a potassium of 2.9. His chest x-ray showed no acute findings as well. Given his relative hypotension prior to presentation in conjunction with his orthostatic vital signs, the patient was admitted to the hospital for further evaluation and therapy. Since admission, he states he feels a bit better but still not back to baseline, His blood pressure has improved to some degree but he remains relatively hypotensive still. Renal consultation was requested due to his end-stage renal disease on peritoneal dialysis. The patient normally follows with Dr. Xavier Marcus for management of his end-stage renal disease and peritoneal dialysis via [facility]. As mentioned above, he was recently admitted here to [facility] late August 2024 for fluid overload (in associated with significant hypertension) due to problems with his home PD cycler/machine and responded to aggressive peritoneal dialysis. With the aggressive fluid removal noted during that hospital stay, his blood pressure normalized. He was then readmitted about a week later in early September 2024 with hypotension requiring IVFs and subsequent adjustment in his CCPD prescription and BP medications with improvement in his clinical status by the time of discharge but his hypotension has recurred again as noted by PCP's office visit and ER evaluation necessitating re-admission to the hospital. Currently, at the time my evaluation, he appears in no acute distress when seen but still reports generalized weakness. Review of Systems 2 Review of Systems: As per HPI. [facility] Past Medical History Medical History (Updated 10/11/24 @ 17:38 by Gloria Dennis MD) Pulmonary hypertension Mild on echo 07/2024 Chronic hyponatremia Essential hypertension Congestive heart failure Diastolic heart failure echocardiogram 07/25/2024: EF 55-60, abnormal diastolic function, E/E 21 is elevated, moderate left atrial enlargement, mild pulmonary hypertension Orthostatic hypotension Peripheral neuropathy Severe protein-calorie malnutrition End-stage renal disease on peritoneal dialysis Since [address] Marcus Anemia of chronic disease Vitamin B1 deficiency neuropathy B12 deficiency Eczema Diastolic dysfunction Dyslipidemia Peripheral vascular disease Vitamin D3 deficiency Surgical History Surgical History Peritoneal dialysis catheter in place History of appendectomy Family History Family History Father Hypertension Social History Social History (Updated 10/11/24 @ 00:32 by Crissy Sarmiento DO) Social History: He lives with his mother. No pets. 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 He is single and has never been . He started smoking when he was in college and stopped smoking around March 2024. Code status: Full code Surrogate decision maker: Lawrence Bryan (mother) Smoking packs per day: 1 Smoking cigarettes per day: 20.0 Years smoked: 34 Smoking pack-years: 34.00 Smoking status: Former smoker Tobacco type: cigarettes Alcohol intake: current Alcohol use details: rarely Substance use: former Substance use type: marijuana Other substance usage details: OCCASIONAL Do You Feel Safe in your Home?: Yes Lack of Transportation: No Lack of Food: Sometimes True Current Housing: I Have Housing Concerned About Future Housing: No Difficulty Paying Gas/Electric Bills: YES Difficulty Paying for Meds: No Currently Unemployed: No Education: Bachelor's Degree Difficulty w/ Childcare or Family Care: No Living arrangements: with family Occupation/Education: unemployed Gender identity (if verbalized by the patient): Male Sexual Orientation (if Verbalized by the Patient): Straight or Heterosexual Spiritual care concerns: No Agree to blood products: Yes Meds Home Medications and Allergies Home Medications ?Medication ?Instructions ?Recorded ?Confirmed ?Type calcium carbonate (Tums) 200 mg PO HS PRN Indigestion 07/20/23 10/09/24 History cinacalcet 30 mg tablet 90 mg PO DAILY 07/20/2309/22 History multivitamin 1 tablet PO DAILY 07/29/23 0 10/09/24 History ferric citrate 210 mg iron tablet 210 mg PO TIDWM 08/1510/09/24 History (Auryxia) omeprazole 20 mg capsule,delayed 20 mg PO DAILY #90 ca ps 03/08/24 10/09/24 Rx release escitalopram oxalate 10 mg tablet 10 mg PO DAILY 03/0910/09/24 History albuterol sulfate 90 mcg/actuation 2 inh inhalation QI D PRN shortness 03/29/24 10/09/24 History aerosol inhaler of breath or wheezing calcium acetate(phosphat bind) 667 2,668 mg PO TIDWM 0 03/29/24 10/09/24 History mg capsule ondansetron 4 mg disintegrating 8 mg translingual Q8H PRN nausea 03/29/24 10/09/24 History tablet and vomiting diphenoxylate-atropine 2.5 1 tablet PO QID PRN diarrhe a #60 05/29/24 10/09/24 Rx mg-0.025 mg tablet tabs hydrocodone 5 mg-acetaminophen 325 1 tablet PO Q8H PRN Pain Rated 08/15/24 10/09/24 Rx mg tablet 4-10 #90 tabs buspirone 10 mg tablet See Rx Instructions .Route 0 09/11/24 10/09/24 Rx .COMPLEX #90 tabs gabapentin 100 mg capsule 100 mg PO TID #90 caps 09/2210/09/24 Rx melatonin 10 mg capsule 20 mg (2 x 10 mg) PO HS PRN 09/22/24 10/09/24 Rx Insomnia #30 caps losartan 25 mg tablet 12.5 mg (1/2 x 25 mg) PO KELSEA LY 1 10/03/24 10/09/24 Rx month #15 tabs metoprolol tartrate 25 mg tablet 6.25 mg (1/4 x 25 mg) PO BID 1 10/03/24 10/09/24 Rx month #15 tabs furosemide 40 mg tablet (Lasix) 40 mg PO BID 10/09/24 10/09/24 History nortriptyline 50 mg capsule 50 mg PO HS 10/09/2410/09 History Allergies Allergy/AdvReac Type Severity Reaction Status Date / Time No Known Allergies Allergy Verified 10/09/24 13:06 Vital Signs Vital Signs Temp Pulse Resp BP Pulse Ox O2 Del Method 10/10/24 10:01 104 H 10/10/24 10:00 106 H 10/10/24 08:00 97.4 F L 94 24 H 106/64 99 10/10/24 08:00 99 10/10/24 08:00 Room Air 10/10/24 08:00 97.8 F 103 H 20 124/71 96 10/10/24 06:00 109 H 10/10/24 04:00 104 H 10/10/24 04:00 98 Room Air 10/10/24 04:00 98.9 F 103 H 15 95/67 L 96 10/10/24 02:00 101 H 10/10/24 00:00 110 H 10/10/24 00:00 99.4 F 105 H 15 92/62 L 95 10/09/24 23:56 98 Room Air 10/09/24 22:33 118 H 10/09/24 22:00 118 H 10/09/24 21:50 98 Room Air 10/09/24 21:31 99.8 F H 110 H 15 131/74 98 Exam 2 Narrative: GENERAL APPEARANCE: well developed well nourished male in no acute distress HEENT: normocephalic, atraumatic, normal conjunctiva and sclera, nares patient NECK: no lymphadenopathy, thyromegaly, or JVD MOUTH: normal lips, teeth, and gums CARDIOVASCULAR: RRR, normal S1 and S2, no rub RESPIRATORY: clear anteriorly; decreased at bases ABDOMEN: soft, nontender, nondistended, positive bowel sounds present; PD catheter C/D/I EXTREMITIES: no evidence of cyanosis, clubbing, or edema NEUROLOGICAL: alert and oriented x 3; CN II - XII intact bilaterally; no focal deficits noted Results Lab Results 10/11/24 03:41 10/11/24 03:41 Lab results: Most recent lab results Calcium 8.6 mg/dL (8.4-10.2) 10/10/24 03:58 Phosphorus 5.7 mg/dL (2.5-4.5) H 10/10/24 03:58 Magnesium 1.5 mg/dL (1.6-2.3) L 10/10/24 03:58
--- NOTE | 2024-10-10 11:22 | P.CONCA_ITS ---
Assessment and Plan Assessment and plan (1) Orthostatic hypotension: Code(s): I95.1 - Orthostatic hypotension Status: Acute Assessment and Plan: Due to volume depletion on peritoneal dialysis and autonomic dysfunction. Consider Midodrine if continues to be low while hydrated. (2) Cardiomyopathy: Code(s): I42.9 - Cardiomyopathy, unspecified Status: Acute Assessment and Plan: Resolved on HF medication which had to be stopped for low BP including Entresto or Losartan, Coreg. He is on very low dose Metoprolol Tartate 6.25 mg BID. (3) Elevated troponin: Code(s): R79.89 - Other specified abnormal findings of blood chemistry Status: Acute Assessment and Plan: Very mild. Doubt ACS without cp and normal nuclear stress test recently. History of Present Illness History of Present Illness Consult date/time: 10/10/24 11:22 Reason For Visit: Transient hypotension, Elevated troponin Narrative: 54 yr old man who is my regular cardiology patient and a patient of Dr. Morrell presents to ER for low BP. He has a history of mild PAD on right leg, resolved systolic dysfunction, diastolic dysfunction, hypertension, dyslipidemia, smoking, ESRD on PD (Since 2021, sees Dr. Marcus). States his BP was low at PCP at 60/40 and felt weak and dizzy, and sent in to ER. He was positive for orthostatics. Given IVF and feels better now with no dizziness. Reports he has ABDI walking 100 yards. States that PD is not able to pull off enough fluid. He has trace edema of both legs that is worse at end of the day. He quit smoking in 2023. Denies chest pain, sob, orthopnea, PND, dizziness, palpitations. Cardiovascular Procedures Echo/MUGA:: 07/25/24 Echo: EF 55-60%, mild LVH, diastolic dysfunction (E/e' 21), mod LAE, mod MAC, mild MR, trace PI, RVSP 45 mmHg. 04/06/24 Echo: EF 15-20%, mod LVE, grade I diastolic dysfunction (E/e' 14), mod LAE, mod MAC, mild MR. 12/12/22 Echo: EF 60-65%, mild LVH, diastolic dysfunction (E/e' 18), mod LAE, mild VENU, severe posterior MAC, mild MR, trace TR. Electrophysiology:: 01/20/23 EKG: Sinus rhythm, PAC. Stress Tests:: 04/07/24 Lexiscan myoview: Negative. 11/11/22 JAUN right 1.21, TBI 0.59; left JAUN 1.3, TBI 1.05. Review of Systems 2 Review of Systems: All systems reviewed & are unremarkable except as noted in HPI and below Constitutional: Constitutional: Reports as per HPI, Denies chills, Reports fatigue and Denies fever(s) Cardiovascular: Cardiovascular: Reports as per HPI, Denies chest pain and Denies irregular heart rhythm Respiratory: Respiratory: Reports as per HPI and Denies dyspnea Gastrointestinal: Gastrointestinal: Reports as per HPI and Denies abdominal pain Genitourinary: Genitourinary: Reports as per HPI and Denies dysuria Musculoskeletal: Musculoskeletal: Reports as per HPI Neurologic: Reports as per HPI, Reports dizziness and Denies syncope [facility] Past Medical History Medical History (Updated 10/09/24 @ 22:47 by Crissy Sarmiento DO) Pulmonary hypertension Mild on echo 07/2024 Congestive heart failure Diastolic heart failure echocardiogram 07/25/2024: EF 55-60, abnormal diastolic function, E/E 21 is elevated, moderate left atrial enlargement, mild pulmonary hypertension Eczema Peripheral neuropathy Vitamin B1 deficiency neuropathy Anemia of chronic disease End-stage renal disease on peritoneal dialysis Chronic hyponatremia Severe protein-calorie malnutrition B12 deficiency Dyslipidemia Peripheral vascular disease Diastolic dysfunction Orthostatic hypotension Essential hypertension Vitamin D3 deficiency Surgical History Surgical History (Updated 10/09/24 @ 22:41 by Crissy Sarmiento DO) Peritoneal dialysis catheter in place History of appendectomy Family History Family History Father Hypertension Social History Social History (Updated 10/09/24 @ 22:47 by Crissy Sarmiento DO) Social History: Lives alone in an apartment. No pets. Code status: Full code Surrogate decision maker: Lawrence Bryan (mother) Smoking packs per day: 1 Smoking cigarettes per day: 20.0 Years smoked: 34 Smoking pack-years: 34.00 Smoking status: Former smoker Tobacco type: cigarettes Alcohol intake: current Alcohol use details: rarely Substance use: former Substance use type: marijuana Other substance usage details: OCCASIONAL Do You Feel Safe in your Home?: Yes Lack of Transportation: No Lack of Food: Sometimes True Current Housing: I Have Housing Concerned About Future Housing: No Difficulty Paying Gas/Electric Bills: YES Difficulty Paying for Meds: No Currently Unemployed: No Education: Bachelor's Degree Difficulty w/ Childcare or Family Care: No Living arrangements: with family Occupation/Education: unemployed Gender identity (if verbalized by the patient): Male Sexual Orientation (if Verbalized by the Patient): Straight or Heterosexual Spiritual care concerns: No Agree to blood products: Yes Meds Home Medications and Allergies Home Medications ?Medication ?Instructions ?Recorded ?Confirmed ?Type calcium carbonate (Tums) 200 mg PO HS PRN Indigestion 07/20/23 10/09/24 History cinacalcet 30 mg tablet 90 mg PO DAILY 07/20/2309/22 History multivitamin 1 tablet PO DAILY 07/29/23 0 10/09/24 History ferric citrate 210 mg iron tablet 210 mg PO TIDWM 08/1510/09/24 History (Auryxia) omeprazole 20 mg capsule,delayed 20 mg PO DAILY #90 ca ps 03/08/24 10/09/24 Rx release escitalopram oxalate 10 mg tablet 10 mg PO DAILY 03/0910/09/24 History albuterol sulfate 90 mcg/actuation 2 inh inhalation QI D PRN shortness 03/29/24 10/09/24 History aerosol inhaler of breath or wheezing calcium acetate(phosphat bind) 667 2,668 mg PO TIDWM 0 03/29/24 10/09/24 History mg capsule ondansetron 4 mg disintegrating 8 mg translingual Q8H PRN nausea 03/29/24 10/09/24 History tablet and vomiting diphenoxylate-atropine 2.5 1 tablet PO QID PRN diarrhe a #60 05/29/24 10/09/24 Rx mg-0.025 mg tablet tabs hydrocodone 5 mg-acetaminophen 325 1 tablet PO Q8H PRN Pain Rated 08/15/24 10/09/24 Rx mg tablet 4-10 #90 tabs buspirone 10 mg tablet See Rx Instructions .Route 0 09/11/24 10/09/24 Rx .COMPLEX #90 tabs gabapentin 100 mg capsule 100 mg PO TID #90 caps 09/2210/09/24 Rx melatonin 10 mg capsule 20 mg (2 x 10 mg) PO HS PRN 09/22/24 10/09/24 Rx Insomnia #30 caps losartan 25 mg tablet 12.5 mg (1/2 x 25 mg) PO KELSEA LY 1 10/03/24 10/09/24 Rx month #15 tabs metoprolol tartrate 25 mg tablet 6.25 mg (1/4 x 25 mg) PO BID 1 10/03/24 10/09/24 Rx month #15 tabs furosemide 40 mg tablet (Lasix) 40 mg PO BID 10/09/24 10/09/24 History nortriptyline 50 mg capsule 50 mg PO HS 10/09/2410/09 History Allergies Allergy/AdvReac Type Severity Reaction Status Date / Time No Known Allergies Allergy Verified 10/09/24 13:06 Vital Signs Vital Signs - 24 hr 10/09/24 14:13 10/09/24 14:27 10/09/24 14:30 Temperature 97.9 F Pulse Rate 100 103 H 100 Respiratory Rate 22 H 24 H 26 H Blood Pressure 89/70 L 91/64 L Pulse Oximetry 99 98 97 Oxygen Delivery Room Air 10/09/24 14:31 10/09/24 14:45 10/09/24 14:46 Temperature Pulse Rate 104 H 97 100 Respiratory Rate 21 H 19 23 H Blood Pressure 88/68 L Pulse Oximetry 96 99 99 Oxygen Delivery 10/09/24 15:00 10/09/24 15:01 10/09/24 15:15 Temperature Pulse Rate 97 98 97 Respiratory Rate 25 H 25 H 22 H Blood Pressure 102/75 Pulse Oximetry 100 95 Oxygen Delivery 10/09/24 15:30 10/09/24 16:19 10/09/24 16:38 Temperature Pulse Rate 96 101 H 103 H Respiratory Rate 20 17 Blood Pressure 109/86 Pulse Oximetry 100 Oxygen Delivery 10/09/24 16:39 10/09/24 17:27 10/09/24 18:16 Temperature Pulse Rate 106 H 106 H 104 H Respiratory Rate 22 H 21 H Blood Pressure 81/70 L 101/71 106/79 Pulse Oximetry 100 Oxygen Delivery 10/09/24 18:17 10/09/24 18:30 10/09/24 18:31 Temperature Pulse Rate 102 H 103 H 105 H Respiratory Rate 23 H 21 H 23 H Blood Pressure 109/78 Pulse Oximetry 99 99 Oxygen Delivery 10/09/24 18:45 10/09/24 18:46 10/09/24 19:06 Temperature Pulse Rate 106 H 104 H 104 H Respiratory Rate 24 H 22 H 20 Blood Pressure 108/74 Pulse Oximetry Oxygen Delivery 10/09/24 19:15 10/09/24 19:16 10/09/24 21:31 Temperature 99.8 F H Pulse Rate 104 H 107 H 110 H Respiratory Rate 22 H 15 15 Blood Pressure 106/76 131/74 Pulse Oximetry 100 98 Oxygen Delivery 10/09/24 21:50 10/09/24 22:00 10/09/24 22:33 Temperature Pulse Rate 118 H 118 H Respiratory Rate Blood Pressure Pulse Oximetry 98 Oxygen Delivery Room Air 10/09/24 23:56 10/10/24 00:00 10/10/24 00:00 Temperature 99.4 F Pulse Rate 105 H 110 H Respiratory Rate 15 Blood Pressure 92/62 L Pulse Oximetry 98 95 Oxygen Delivery Room Air 10/10/24 02:00 10/10/24 04:00 10/10/24 04:00 Temperature 98.9 F Pulse Rate 101 H 103 H Respiratory Rate 15 Blood Pressure 95/67 L Pulse Oximetry 96 98 Oxygen Delivery Room Air 10/10/24 04:00 10/10/24 06:00 10/10/24 08:00 Temperature 97.8 F Pulse Rate 104 H 109 H 103 H Respiratory Rate 20 Blood Pressure 124/71 Pulse Oximetry 96 Oxygen Delivery 10/10/24 10:01 Temperature Pulse Rate 104 H Respiratory Rate Blood Pressure Pulse Oximetry Oxygen Delivery Exam 2 Const: General: cooperative, healthy appearing and comfortable Resp: Auscultation: clear to auscultation bilaterally, no crackles, no rales, no rhonchi and no wheezes Cardio: Rate: tachycardic Rhythm: regular rhythm Heart sounds: no murmurs Peripheral pulses: dorsalis pedis present GI: GI Palp: No abdominal tenderness and Yes Soft to palpation Neuro: General: oriented to person, oriented to place and oriented to time Extrem: Right lower extremity: edema Left lower extremity: edema Other: Trace edema of both legs Results Labs and Meds 10/10/24 03:58 10/10/24 03:58 Lab results: Cardiac Enzymes 10/09/24 10/09/24 10/09/24 Range/Units 14:18 14:56 17:43 AST 34 (17-59) U/L Troponin I 0.059 H* 0.067 H* (0.000-0.034) ng/mL Coagulation 10/09/24 Range/Units 14:56 PT 13.4 (11.1-14.7) Seconds APTT 29.9 (22.3-36.8) Seconds CBC 10/09/24 10/10/24 Range/Units 14:18 03:58 WBC 10.8 H 10.8 H (4.5-10.0) K/mm3 RBC 4.13 L 3.79 L (4.6-6.20) M/mm3 Hgb 12.8 L 11.7 L (14.0-18.0) g/dL Hct 40.4 L 37.3 L (42.0-52.0) % Plt Count 469 H 446 H (150-375) k/mm3 Lymph # (Auto) 1.67 (0.9-3.2) K/mm3 Cooper # (Auto) 1.1 H (0.1-0.6) K/mm3 Eos # (Auto) 0.6 H (0-0.3) K/mm3 Baso # (Auto) 0.1 (0.0-0.1) K/mm3 Comprehensive Metabolic Panel 10/09/24 10/10/24 Range/Units 14:18 03:58 Sodium 133 L 132 L (137-145) mmol/L Potassium 2.9 L 3.2 L (3.4-5.0) mmol/L Chloride 94 L 98 (98-107) mmol/L Carbon Dioxide 22 22 (22-30) mmol/L BUN 32 H D 34 H (9-20) mg/dL Creatinine 11.15 H 11.51 H (0.7-1.3) mg/dL Glucose 122 H 87 (65-110) mg/dL Calcium 8.4 8.6 (8.4-10.2) mg/dL AST 34 (17-59) U/L ALT 32 (6-50) U/L Alkaline Phosphatase 174 H (38-126) U/L Total Protein 6.3 (6.3-8.2) g/dL Albumin 3.5 (3.5-5.1) g/dL Intake and Output 10/09/24 10/10/24 10/10/24 23:59 07:59 15:59 Intake Total 1550 Output Total 0 Balance 1550 Intake: IV 1000 Lactated Ringers 1,000 ml @ 150 1000 mls/hr IV CONT .Q6H40M STA Rx# :[id number] Oral 550 Output: Urine 0 Patient Weight 10/10/24 23:59 Weight 108 kg
[2024-10-10] MEDS: DIPHENOXYLATE/ATROPINE (*CRX) 2.5 MG TABLET 1 TABLET PO (14:25)
--- NOTE | 2024-10-10 15:55 | P.PNIM_ITS ---
Progress Note: A&P Assessment and Plan (1) Elevated troponin: Code(s): R79.89 - Other specified abnormal findings of blood chemistry Status: Acute (2) Dialysis catheter clot or failure: Status: Acute (3) Acute hypokalemia: Code(s): E87.6 - Hypokalemia Status: Acute (4) Autonomic dysfunction: Code(s): G90.9 - Disorder of the autonomic nervous system, unspecified Status: Acute (5) Orthostatic hypotension: Code(s): I95.1 - Orthostatic hypotension Status: Acute (6) Peripheral neuropathy: Qualifiers: Peripheral neuropathy type: polyneuropathy, unspecified Qualified Code(s): G62.9 - Polyneuropathy, unspecified Code(s): G62.9 - Polyneuropathy, unspecified Status: Chronic Plan Patient presents with recurrent hypotension. Patient's hypotension is likely multifactorial due to a combination of the patient's antihypertensive medications which have been adjusted during his last hospitalization but had been placed back on previous dosing instead of the adjusted medications and exacerbated by patient's underlying orthostatic hypotension due to autonomic dysfunction from polyneuropathy. Patient's blood pressures improved with IV fluid administration and remained stable although still having orthostatic changes. He want to avoid giving the patient too much fluid given his history of diastolic dysfunction and dependence on peritoneal dialysis. Patient may benefit from Bright hose while up and ambulating. Will discuss this as an option with the patient. At this time will place patient back on his home Coreg and will hold the patient's home Lasix. Will hold off on giving the patient any further fluid boluses. And monitor strict I&O's. Patient did have minimally elevated troponins likely due to demand ischemia from hypotension and sinus tachycardia resulting in mild demand ischemia in the setting of end-stage renal disease. Patient does have sinus tachycardia and temperatures are elevated to 99.8. The patient may have underlying infection. Blood cultures were obtained in the ER. Chest x-ray was negative for acute process. Will send peritoneal fluid for Gram stain and culture. Will hold off on starting antibiotics until re-evaluation of clinical status and repeat CBC has been ordered for a.m.. Patient does have some mild hypokalemia in the setting of end-stage renal disease on peritoneal dialysis. Patient did receive 40 mEq of p.o. potassium. Nephrology has been consulted for peritoneal dialysis management. Will repeat electrolyte panel in a.m.. patient is 54 y/o male with ESRD on PD, has recurrent history of orthostatic hypotension, patient with history of cardiomyopathy unable to tolerate cardiac medications, seen by his photographic spotter currently on low dose metoprolol 6.25mg BID, also patient cardiac enzymes are mildly elevated unlikely ACS, seen by photographic spotter. Subjective Date/time seen: 10/10/24 15:55 Interval history: Weakness, dizziness and low blood pressure H&P-Narrative: 54-year-old male with complex past medical history including end-stage renal disease on peritoneal dialysis, congestive heart failure, essential hypertension, peripheral neuropathy and orthostatic hypotension who presented to the ER due to weakness and hypotension. The patient was recently hospitalized 09/28/2024 through 10/03/2024 for orthostatic hypotension with various blood pressure medication changes and a consult to Cardiology and Nephrology. The patient has orthostatic hypotension had resolved prior to discharge. Patient was discharged on 6.25 mg of metoprolol b.i.d. and is losartan was decreased to 12.5 mg. The patient was discharged back home on his prior dose of Entresto according to the patient's discharge summary although patient does have only losartan listed on his home medication list. It is unclear which medication he may be taking. He was continued on diuretic therapy but is discharge summary states that he was continued on torsemide but the patient's home med rec states that he is on Lasix 40 mg b.i.d.. He also had perforated ear drum during his last hospitalization and was discharged on ox oxfloxin drops to the right ear. He has had persistent weakness since discharge from the hospital. He went for follow-up with primary care physician today and was found to be hypotensive with a blood pressure of 80/60 and repeat of 60/40 and was sent to the ER for evaluation. He has also been having some generalized fatigue. He denied having any fevers. On her arrival to the ER he had some mild sinus tachycardia he received a normal saline bolus with resolution of hypotension. Repeat orthostatics after fluid bolus still demonstrated orthostasis with drop in blood pressure of 28 points in systolic blood pressure when going from supine to sitting. He denies any fevers or chills at home. He was initially febrile in the ER but after arrived to the IMU is temperature was 99.8. patient is 54 y/o male with ESRD on PD, has recurrent history of orthostatic hypotension, patient with history of cardiomyopathy unable to tolerate cardiac medications, seen by his photographic spotter currently on low dose metoprolol 6.25mg BID, also patient cardiac enzymes are mildly elevated unlikely ACS, seen by photographic spotter. Review of Systems Review of Systems: 12 systems were reviewed with pertinent positives and negatives per HPI. Except as documented in the HPI, all other systems were reviewed and are negative. Exam Narrative: Patient is comfortable, NAD HEENT: eyes are clear and none icteric LUNGS:CTA HEART: RR S1S2 ABD: BS+, Soft and nontender Lower extremities: no edema SKIN: nonjaundiced Neuro: grossly intact. Objective Data Vital Signs Vital Signs: Vital Signs - 24 hr 10/09/24 16:19 10/09/24 16:38 10/09/24 16:39 Temperature Pulse Rate 101 H 103 H 106 H Respiratory Rate 17 Blood Pressure 109/86 81/70 L Pulse Oximetry 100 Oxygen Delivery 10/09/24 17:27 10/09/24 18:16 10/09/24 18:17 Temperature Pulse Rate 106 H 104 H 102 H Respiratory Rate 22 H 21 H 23 H Blood Pressure 101/71 106/79 Pulse Oximetry 100 Oxygen Delivery 10/09/24 18:30 10/09/24 18:31 10/09/24 18:45 Temperature Pulse Rate 103 H 105 H 106 H Respiratory Rate 21 H 23 H 24 H Blood Pressure 109/78 Pulse Oximetry 99 99 Oxygen Delivery 10/09/24 18:46 10/09/24 19:06 10/09/24 19:15 Temperature Pulse Rate 104 H 104 H 104 H Respiratory Rate 22 H 20 22 H Blood Pressure 108/74 Pulse Oximetry 100 Oxygen Delivery 10/09/24 19:16 10/09/24 21:31 10/09/24 21:50 Temperature 37.7 C H Pulse Rate 107 H 110 H Respiratory Rate 15 15 Blood Pressure 106/76 131/74 Pulse Oximetry 98 98 Oxygen Delivery Room Air 10/09/24 22:00 10/09/24 22:33 10/09/24 23:56 Temperature Pulse Rate 118 H 118 H Respiratory Rate Blood Pressure Pulse Oximetry 98 Oxygen Delivery Room Air 10/10/24 00:00 10/10/24 00:00 10/10/24 02:00 Temperature 37.4 C Pulse Rate 105 H 110 H 101 H Respiratory Rate 15 Blood Pressure 92/62 L Pulse Oximetry 95 Oxygen Delivery 10/10/24 04:00 10/10/24 04:00 10/10/24 04:00 Temperature 37.2 C Pulse Rate 103 H 104 H Respiratory Rate 15 Blood Pressure 95/67 L Pulse Oximetry 96 98 Oxygen Delivery Room Air 10/10/24 06:00 10/10/24 08:00 10/10/24 08:00 Temperature 36.6 C Pulse Rate 109 H 103 H Respiratory Rate 20 Blood Pressure 124/71 Pulse Oximetry 96 Oxygen Delivery Room Air 10/10/24 08:00 10/10/24 08:00 10/10/24 10:00 Temperature 36.3 C L Pulse Rate 99 94 106 H Respiratory Rate 24 H Blood Pressure 106/64 Pulse Oximetry 99 Oxygen Delivery 10/10/24 10:01 10/10/24 11:41 10/10/24 11:53 Temperature 36.9 C Pulse Rate 104 H 110 H Respiratory Rate 20 Blood Pressure 110/71 Pulse Oximetry 98 Oxygen Delivery Room Air 10/10/24 12:00 10/10/24 13:50 10/10/24 13:50 Temperature Pulse Rate 107 H Respiratory Rate Blood Pressure 99/71 L 71/52 L Pulse Oximetry Oxygen Delivery 10/10/24 14:00 Temperature Pulse Rate 106 H Respiratory Rate Blood Pressure Pulse Oximetry Oxygen Delivery Intake/Output Intake/Output: Intake & Output 10/07/24 10/08/24 10/09/24 10/10/24 23:59 23:59 23:59 23:59 Intake Total 1840 Output Total 0 Balance 1840 Meds/Results Medications: Active Medications Generic Name Dose Route Start Last Admin Trade Name Freq PRN Reason Stop Dose Admin Hydrocodone Bitart/Acetaminophen 1 tab 10/09/24 21:44 10/09/24 22:32 Hydrocodone/Acetaminophen (*Crx) 5-325 Mg Tablet PO 1 tab Q8H PRN Administration Pain Rated 4-10 Buspirone HCl 10 mg 10/10/24 14:00 10/10/24 13:49 Buspirone Hcl 10 Mg Tablet PO 10 mg Q8HR CARIDAD Administration Calcium Acetate 2,668 mg 10/09/24 21:45 10/10/24 12:30 Calcium Acetate 667 Mg Tablet PO 2,668 mg TIDWM CARIDAD Administration Calcium Carbonate 200 mg 10/09/24 21:44 Calcium Carbonate (Tums) 500 Mg (200 Mg Elemental) PO HS PRN Indigestion Cinacalcet 90 mg 10/10/24 08:00 10/10/24 10:02 Cinacalcet 30 Mg Tablet PO 90 mg DAILY@0800 CARIDAD Administration Diphenoxylate HCl/Atropine 1 tablet 10/09/24 21:44 10/10/24 14:25 Diphenoxylate/Atropine (*Crx) 2.5 Mg Tablet PO 1 tablet QID PRN Administration diarrhea Escitalopram Oxalate 10 mg 10/10/24 09:00 10/10/24 10:03 Escitalopram Oxalate 10 Mg Tablet PO 10 mg DAILY CARIDAD Administration Gabapentin 100 mg 10/10/24 14:00 10/10/24 13:49 Gabapentin 100 Mg Capsule PO 100 mg Q8HR CARIDAD Administration Heparin Sodium (Porcine) 5,000 units 10/10/24 09:00 10/10/24 10:03 Heparin Sodium 5,000 Units/Ml Vial SUB-Q 5,000 units Q12HR CARIDAD Administration Melatonin 20 mg 10/09/24 21:44 10/09/24 22:31 Melatonin 5 Mg Tablet PO 20 mg HS PRN Administration Insomnia Metoprolol Tartrate 6.25 mg 10/09/24 22:00 10/10/24 10:01 Metoprolol Tartrate 6.25 Mg Tablet PO 6.25 mg Q12HR CARIDAD Administration Miscellaneous Information 0 each 10/09/24 22:05 Ferric Citrate [Auryxia] 210 Mg Iron Tablet- Nonformulary. Please Obtain A Home Supply If XX 11/08/24 22:04 [facility] Multivitamins Therapeutic 1 tablet 10/10/24 09:00 10/10/24 10:03 Multivitamins Therapeutic Tab (*Bkc) PO 1 tablet DAILY CARIDAD Administration Non-Formulary Medication 210 mg 10/10/24 08:00 Ferric Citrate [Auryxia] PO 11/09/24 07:59 TIDWM [facility] Nortriptyline HCl 50 mg 10/09/24 22:00 10/09/24 22:31 Nortriptyline Hcl 25 Mg Capsule PO 50 mg HS [facility] Administration Pantoprazole Sodium 40 mg 10/10/24 09:00 10/10/24 10:02 Pantoprazole 40 Mg Tablet PO 40 mg QAM CARIDAD Administration Radiology Results: ITS Impressions Chest X-Ray 10/09/24 15:22 IMPRESSION: No focal infiltrate or effusion. Labs Labs: Laboratory Results - last 24 hr 10/09/24 10/09/24 10/10/24 14:56 17:43 03:58 WBC 10.8 H RBC 3.79 L Hgb 11.7 L Hct 37.3 L MCV 98.4 MCH 30.9 MCHC 31.4 L RDW 13.2 Plt Count 446 H MPV 9.0 Sodium 132 L Potassium 3.2 L Chloride 98 Carbon Dioxide 22 Anion Gap 12 BUN 34 H Creatinine 11.51 H Estim Creat Clear Calc 8 Estimated GFR 5 L Glucose 87 Lactic Acid 1.3 Calcium 8.6 Phosphorus 5.7 H Magnesium 1.5 L Troponin I 0.059 H* 0.067 H* Nasal MRSA (PCR) 10/10/24 05:08 WBC RBC Hgb Hct MCV MCH MCHC RDW Plt Count MPV Sodium Potassium Chloride Carbon Dioxide Anion Gap BUN Creatinine Estim Creat Clear Calc Estimated GFR Glucose Lactic Acid Calcium Phosphorus Magnesium Troponin I Nasal MRSA (PCR) Not detected Quality VTE Prophylaxis VTE prophylaxis: pharmacologic ordered (Heparin 5000 units subQ q.12 hours.)
[2024-10-10] MEDS: NORTRIPTYLINE HCL 25 MG CAPSULE 50 MG PO (20:36)
[2024-10-10] MEDS: HYDROcodone/acetaminophen (*CRX) 5-325 MG TABLET 1 TAB PO (23:44)
[2024-10-10] MEDS: MELATONIN 5 MG TABLET 20 MG PO (23:45)
[2024-10-11] VITALS (18 sets, daily range): BP systolic 120–157; BP diastolic 78–105; PULSE 82–106; RESP 16–20; TEMP 36.4–36.8; O2SAT 94–97
[2024-10-11 03:54] LABS: Hematocrit 34.2 % (42.0-52.0); Hemoglobin 10.9 g/dL (14.0-18.0); Mean Corpuscular HGB Conc 31.9 g/dl (32-36); Mean Corpuscular Hemoglobin 31.1 pg (26-34); Mean Corpuscular Volume 97.7 fl (80-100); Platelet Count Result 388 k/mm3 (150-375); Red Blood Count 3.50 M/mm3 (4.6-6.20); White Blood Count 9.6 K/mm3 (4.5-10.0)
[2024-10-11 04:08] LABS: Albumin Level 3.1 g/dL (3.5-5.1); Anion Gap 11 mmol/L (4-12); Blood Urea Nitrogen 38 mg/dL (9-20); Calcium 8.1 mg/dL (8.4-10.2); Carbon Dioxide 24 mmol/L (22-30); Chloride 98 mmol/L (98-107); Estimated CRCL calculation 8 ml/min; Estimated Glomerular Filt Rate 5; Glucose 103 mg/dL (65-110); Potassium 3.0 mmol/L (3.4-5.0); Sodium 133 mmol/L (137-145)
[2024-10-11] MEDS: GABAPENTIN 100 MG CAPSULE PO ×3 (05:47→21:28)
[2024-10-11] MEDS: POTASSIUM CHLORIDE 20 MEQ ER TABLET 40 MEQ PO (06:49)
--- NOTE | 2024-10-11 07:42 | P.PNCA_ITS ---
Progress Note: A&P Assessment and Plan (1) Orthostatic hypotension: Code(s): I95.1 - Orthostatic hypotension Status: Acute Assessment and Plan: Stable BP now. Due to volume depletion on peritoneal dialysis and autonomic dysfunction. Consider Midodrine if continues to be low while hydrated. (2) Cardiomyopathy: Code(s): I42.9 - Cardiomyopathy, unspecified Status: Acute Assessment and Plan: Resolved on HF medication which had to be stopped for low BP including Entresto or Losartan, Coreg. He is on very low dose Metoprolol Tartate 6.25 mg BID. Increase Metoprolol 12.5 mg BID. No further cardiac workup. Will sign off, please call with any questions. (3) Elevated troponin: Code(s): R79.89 - Other specified abnormal findings of blood chemistry Status: Acute Assessment and Plan: Very mild. Doubt ACS without cp and normal nuclear stress test recently. Subjective Date/time seen: 10/11/24 07:42 Interval history: Denies chest pain, sob, or dizziness. Just had PD. Exam Const: General: cooperative, healthy appearing and comfortable Orientation/consciousness: oriented to person, oriented to place and oriented to time Resp: Auscultation: clear to auscultation bilaterally, no crackles, no rales, no rhonchi and no wheezes Cardio: Rate: regular rate Rhythm: regular rhythm Heart sounds: no murmurs Peripheral pulses: dorsalis pedis present Neuro: General: oriented to person, oriented to place and oriented to time Extrem: Right lower extremity: edema Left lower extremity: edema Other: Trace edema of both legs Objective Data Vital Signs Vital Signs: Vital Signs - 24 hr 10/10/24 08:00 10/10/24 08:00 10/10/24 08:00 Temperature 97.8 F Pulse Rate 103 H 99 Respiratory Rate 20 Blood Pressure 124/71 Pulse Oximetry 96 Oxygen Delivery Room Air 10/10/24 08:00 10/10/24 10:00 10/10/24 10:01 Temperature 97.4 F L Pulse Rate 94 106 H 104 H Respiratory Rate 24 H Blood Pressure 106/64 Pulse Oximetry 99 Oxygen Delivery 10/10/24 11:41 10/10/24 11:53 10/10/24 12:00 Temperature 98.4 F Pulse Rate 110 H 107 H Respiratory Rate 20 Blood Pressure 110/71 Pulse Oximetry 98 Oxygen Delivery Room Air 08/19/25 13:50 10/10/24 13:50 10/10/24 14:00 Temperature Pulse Rate 106 H Respiratory Rate Blood Pressure 99/71 L 71/52 L Pulse Oximetry Oxygen Delivery 10/10/24 15:56 10/10/24 16:00 10/10/24 16:00 Temperature 97.8 F Pulse Rate 95 92 Respiratory Rate 12 Blood Pressure 125/76 Pulse Oximetry 96 Oxygen Delivery Room Air 10/10/24 17:51 10/10/24 20:00 10/10/24 20:00 Temperature 98.3 F Pulse Rate 106 H 100 Respiratory Rate 12 Blood Pressure 135/89 Pulse Oximetry 96 Oxygen Delivery Room Air 10/10/24 20:00 10/10/24 22:00 10/11/24 00:00 Temperature Pulse Rate 96 95 Respiratory Rate Blood Pressure Pulse Oximetry Oxygen Delivery Room Air 10/11/24 00:00 10/11/24 00:00 10/11/24 02:00 Temperature 98.2 F Pulse Rate 95 96 92 Respiratory Rate 20 Blood Pressure 139/78 Pulse Oximetry 95 Oxygen Delivery 10/11/24 03:17 10/11/24 03:42 10/11/24 04:00 Temperature 97.6 F Pulse Rate 99 88 Respiratory Rate 20 Blood Pressure 153/99 H Pulse Oximetry 97 Oxygen Delivery Room Air 10/11/24 06:00 Temperature Pulse Rate 94 Respiratory Rate Blood Pressure Pulse Oximetry Oxygen Delivery Intake/Output Intake/Output: Intake & Output 10/08/24 10/09/24 10/10/24 10/11/24 23:59 23:59 23:59 23:59 Intake Total 2330 350 Output Total 0 0 Balance 2330 350 Meds/Results Medications: Active Medications Generic Name Dose Route Start Last Admin Trade Name Freq PRN Reason Stop Dose Admin Hydrocodone Bitart/Acetaminophen 1 tab 10/09/24 21:44 10/10/24 23:44 Hydrocodone/Acetaminophen (*Crx) 5-325 Mg Tablet PO 1 tab Q8H PRN Administration Pain Rated 4-10 Buspirone HCl 10 mg 10/10/24 14:00 10/11/24 05:47 Buspirone Hcl 10 Mg Tablet PO 10 mg Q8HR CARIDAD Administration Calcium Acetate 2,668 mg 10/09/24 21:45 10/10/24 16:59 Calcium Acetate 667 Mg Tablet PO 2,668 mg TIDWM CARIDAD Administration Calcium Carbonate 200 mg 10/09/24 21:44 Calcium Carbonate (Tums) 500 Mg (200 Mg Elemental) PO HS PRN Indigestion Cinacalcet 90 mg 10/10/24 08:00 10/10/24 10:02 Cinacalcet 30 Mg Tablet PO 90 mg DAILY@0800 CARIDAD Administration Diphenoxylate HCl/Atropine 1 tablet 10/09/24 21:44 10/10/24 14:25 Diphenoxylate/Atropine (*Crx) 2.5 Mg Tablet PO 1 tablet QID PRN Administration diarrhea Escitalopram Oxalate 10 mg 10/10/24 09:00 10/10/24 10:03 Escitalopram Oxalate 10 Mg Tablet PO 10 mg DAILY CARIDAD Administration Gabapentin 100 mg 10/10/24 14:00 10/11/24 05:47 Gabapentin 100 Mg Capsule PO 100 mg Q8HR CARIDAD Administration Heparin Sodium (Porcine) 5,000 units 10/10/24 09:00 10/10/24 20:36 Heparin Sodium 5,000 Units/Ml Vial SUB-Q 5,000 units Q12HR CARIDAD Administration Melatonin 20 mg 10/09/24 21:44 10/10/24 23:45 Melatonin 5 Mg Tablet PO 20 mg HS PRN Administration Insomnia Metoprolol Tartrate 6.25 mg 10/09/24 22:00 10/10/24 20:36 Metoprolol Tartrate 6.25 Mg Tablet PO 6.25 mg Q12HR CARIDAD Administration Miscellaneous Information 0 each 10/09/24 22:05 10/11/24 02:47 Ferric Citrate [Auryxia] 210 Mg Iron Tablet- Nonformulary. Please Obtain A Home Supply If XX 11/08/24 22:04 Not Given [facility] Multivitamins Therapeutic 1 tablet 10/10/24 09:00 10/10/24 10:03 Multivitamins Therapeutic Tab (*Bkc) PO 1 tablet DAILY CARIDAD Administration Non-Formulary Medication 210 mg 10/10/24 08:00 Ferric Citrate [Auryxia] PO 11/09/24 07:59 TIDWM [facility] Nortriptyline HCl 50 mg 10/09/24 22:00 10/10/24 20:36 Nortriptyline Hcl 25 Mg Capsule PO 50 mg HS CARIDAD Administration Pantoprazole Sodium 40 mg 10/10/24 09:00 10/10/24 10:02 Pantoprazole 40 Mg Tablet PO 40 mg QAM CARIDAD Administration Potassium Chloride 20 meq 10/11/24 12:31 Potassium Chloride 20 Meq Er Tablet PO 10/11/24 12:32 ONCE ONE Radiology Results: ITS Impressions Chest X-Ray 10/09/24 15:22 IMPRESSION: No focal infiltrate or effusion. Labs Labs: Laboratory Results - last 24 hr 10/11/24 03:41 WBC 9.6 RBC 3.50 L Hgb 10.9 L Hct 34.2 L MCV 97.7 MCH 31.1 MCHC 31.9 L RDW 13.0 Plt Count 388 H MPV 8.6 Sodium 133 L Potassium 3.0 L Chloride 98 Carbon Dioxide 24 Anion Gap 11 BUN 38 H Creatinine 11.67 H Estim Creat Clear Calc 8 Estimated GFR 5 L Glucose 103 Calcium 8.1 L Phosphorus 4.4 Albumin 3.1 L
[2024-10-11] MEDS: CALCIUM ACETATE 667 MG TABLET 2668 MG PO ×3 (08:32→17:02)
[2024-10-11] MEDS: METOPROLOL TARTRATE 12.5 MG TABLET PO ×2 (08:33→21:29)
[2024-10-11] MEDS: MULTIVITAMINS THERAPEUTIC TAB (*BKC) 1 TABLET PO (08:33)
[2024-10-11] MEDS: PANTOPRAZOLE 40 MG TABLET PO (08:33)
[2024-10-11] MEDS: ESCITALOPRAM OXALATE 10 MG TABLET PO (08:33)
[2024-10-11] MEDS: CINACALCET 30 MG TABLET 90 MG PO (08:34)
--- NOTE | 2024-10-11 08:55 | P.PNNP_ITS ---
Progress Note: A&P Assessment and Plan (1) End stage renal disease: Code(s): N18.6 - End stage renal disease Status: Chronic Assessment and Plan: * continue CCPD while hospitalized * continue current Rx * follow trend of electrolytes, volume status, and clearance (2) Hypotension: Code(s): I95.9 - Hypotension, unspecified Status: Acute Assessment and Plan: * as noted on presentation * responded well to IVFs in the ER * possibly due to aggressive fluid removal/ultrafiltration with dialysis on recent hospitalization * medication related(?) -- her is not clear on BP medications he was taking.... * clinical improvement noted * consider restart midodrine (?) * follow trend of hemodynamics (3) Anemia: Code(s): D64.9 - Anemia, unspecified Status: Acute Assessment and Plan: * due to ESRD * stable at this time * resume Epogen when Hgb < 10 (4) Hyponatremia: Code(s): E87.1 - Hypo-osmolality and hyponatremia Status: Chronic Assessment and Plan: * relatively stable (but fluctuates at baseline) * due to fluctuations in volume status, water intake and renal failure * follow trend (5) Congestive heart failure: Code(s): I50.9 - Heart failure, unspecified Status: Chronic Assessment and Plan: * known history of systolic and diastolic dysfunction * last Echo (July 2024) noted: * left ventricular systolic function is normal, estimated at 55-60% * left ventricular diastolic function is abnormal * mitral valve has a moderately calcified annulus * mild mitral valve regurgitation * mild pulmonary hypertension, estimated pulmonary arterial systolic pressure is 45 mmHg * trace pulmonic regurgitation * overall heart function seems to be improved * appears stable if not compensated (6) HTN (hypertension): Code(s): I10 - Essential (primary) hypertension Status: Chronic Assessment and Plan: * despite known history, low BP on presentation * BP medications with parameters * follow trend of hemodynamics (7) Neuropathy: Code(s): G62.9 - Polyneuropathy, unspecified Status: Acute Assessment and Plan: * known diagnosis * etiology not entirely clear * follows with Neurology as an outpatient (8) Generalized weakness: Code(s): R53.1 - Weakness Status: Resolved Assessment and Plan: * related to low BP and possible deconditioning from recent hospitalization * PT/OT as tolerated Will continue to follow. L Subjective Date/time seen: 10/11/24 08:55 Interval history: Follow-up for end stage renal disease on peritoneal dialysis. Tolerated peritoneal dialysis treatment overnight without any issue or problems ([facility] supervised and seen at 8:45am); overall, seems to be feeling reasonably well but still reports generalized weakness and fatigue at the time of my visit. Exam 2 Narrative: General: WD/WN male in NAD Heart: normal S1 and S2; no rub Lungs: clear anteriorly; decreased at bases Abdomen: soft, nontender, nondistended, positive bowel sounds Extremities: no cyanosis or clubbing; trace edema Skin: warm and dry Objective Data Vital Signs Vital Signs: Vital Signs Temp Pulse Resp BP Pulse Ox O2 Del Method 10/11/24 08:33 106 H 10/11/24 08:31 97 Room Air 10/11/24 08:12 120/105 H 10/11/24 08:12 151/97 H 10/11/24 08:00 102 H 10/11/24 08:00 Room Air 10/11/24 08:00 98.1 F 104 H 16 151/97 H 97 10/11/24 08:00 151/97 H 10/11/24 07:15 98.1 F 102 H 16 151/97 H 10/11/24 06:00 94 10/11/24 04:00 88 10/11/24 03:42 97.6 F 99 20 153/99 H 97 10/11/24 03:17 Room Air 10/11/24 02:00 92 10/11/24 00:00 98.2 F 96 20 139/78 95 10/11/24 00:00 95 10/11/24 00:00 Room Air 10/10/24 22:00 95 10/10/24 20:00 96 10/10/24 20:00 Room Air 10/10/24 20:00 98.3 F 100 12 135/89 96 10/10/24 17:51 106 H Intake/Output Intake/Output: Intake & Output 10/08/24 10/09/24 10/10/24 10/11/24 23:59 23:59 23:59 23:59 Intake Total 2330 994 Output Total 0 1320 Balance 2330 -326 Meds/Results Medications: Active Medications Generic Name Dose Route Start Last Admin Trade Name Freq PRN Reason Stop Dose Admin Hydrocodone Bitart/Acetaminophen 1 tab 10/09/24 21:44 10/10/24 23:44 Hydrocodone/Acetaminophen (*Crx) 5-325 Mg Tablet PO 1 tab Q8H PRN Administration Pain Rated 4-10 Buspirone HCl 10 mg 10/10/24 14:00 10/11/24 13:38 Buspirone Hcl 10 Mg Tablet PO 10 mg Q8HR CARIDAD Administration Calcium Acetate 2,668 mg 10/09/24 21:45 10/11/24 17:02 Calcium Acetate 667 Mg Tablet PO 2,668 mg TIDWM CARIDAD Administration Calcium Carbonate 200 mg 10/09/24 21:44 Calcium Carbonate (Tums) 500 Mg (200 Mg Elemental) PO HS PRN Indigestion Cinacalcet 90 mg 10/10/24 08:00 10/11/24 08:34 Cinacalcet 30 Mg Tablet PO 90 mg DAILY@0800 CARIDAD Administration Diphenoxylate HCl/Atropine 1 tablet 10/09/24 21:44 10/11/24 13:42 Diphenoxylate/Atropine (*Crx) 2.5 Mg Tablet PO 1 tablet QID PRN Administration diarrhea Escitalopram Oxalate 10 mg 10/10/24 09:00 10/11/24 08:33 Escitalopram Oxalate 10 Mg Tablet PO 10 mg DAILY CARIDAD Administration Gabapentin 100 mg 10/10/24 14:00 10/11/24 13:38 Gabapentin 100 Mg Capsule PO 100 mg Q8HR CARIDAD Administration Heparin Sodium (Porcine) 5,000 units 10/10/24 09:00 10/11/24 08:33 Heparin Sodium 5,000 Units/Ml Vial SUB-Q 5,000 units Q12HR CARIDAD Administration Melatonin 20 mg 10/09/24 21:44 10/10/24 23:45 Melatonin 5 Mg Tablet PO 20 mg HS PRN Administration Insomnia Metoprolol Tartrate 12.5 mg 10/11/24 09:00 10/11/24 08:33 Metoprolol Tartrate 12.5 Mg Tablet PO 12.5 mg Q12HR CARIDAD Administration Miscellaneous Information 0 each 10/09/24 22:05 10/11/24 02:47 Ferric Citrate [Auryxia] 210 Mg Iron Tablet- Nonformulary. Please Obtain A Home Supply If XX 11/08/24 22:04 Not Given [facility] Multivitamins Therapeutic 1 tablet 10/10/24 09:00 10/11/24 08:33 Multivitamins Therapeutic Tab (*Bkc) PO 1 tablet DAILY CARIDAD Administration Non-Formulary Medication 210 mg 10/10/24 08:00 Ferric Citrate [Auryxia] PO 11/09/24 07:59 TIDWM [facility] Nortriptyline HCl 50 mg 10/09/24 22:00 10/10/24 20:36 Nortriptyline Hcl 25 Mg Capsule PO 50 mg HS CARIDAD Administration Pantoprazole Sodium 40 mg 10/10/24 09:00 10/11/24 08:33 Pantoprazole 40 Mg Tablet PO 40 mg QAM CARIDAD Administration Radiology Results: ITS Impressions Chest X-Ray 10/09/24 15:22 IMPRESSION: No focal infiltrate or effusion. Labs Labs: Laboratory Tests 10/11/24 03:41 10/11/24 03:41 Calcium 8.1 L Phosphorus 4.4 Magnesium 2.0 Albumin 3.1 L Microbiology 10/09/24 15:25 Blood Blood Culture - Preliminary 10/09/24 15:03 Blood Blood Culture - Preliminary
[2024-10-11 11:02] LABS: Magnesium 2.0 mg/dL (1.6-2.3)
[2024-10-11] MEDS: POTASSIUM CHLORIDE 20 MEQ ER TABLET PO (11:50)
[2024-10-11] MEDS: DIPHENOXYLATE/ATROPINE (*CRX) 2.5 MG TABLET 1 TABLET PO (13:42)
--- NOTE | 2024-10-11 15:15 | PM.IMPN ---
Progress Note: A&P Assessment and Plan (1) Orthostatic hypotension: Code(s): I95.1 - Orthostatic hypotension Status: Acute (2) Autonomic dysfunction: Code(s): G90.9 - Disorder of the autonomic nervous system, unspecified Status: Acute (3) Elevated troponin: Code(s): R79.89 - Other specified abnormal findings of blood chemistry Status: Acute (4) Acute hypokalemia: Code(s): E87.6 - Hypokalemia Status: Acute (5) Peripheral neuropathy: Qualifiers: Peripheral neuropathy type: polyneuropathy, unspecified Qualified Code(s): G62.9 - Polyneuropathy, unspecified Code(s): G62.9 - Polyneuropathy, unspecified Status: Chronic (6) End-stage renal disease on peritoneal dialysis: Code(s): N18.6 - End stage renal disease; Z99.2 - Dependence on renal dialysis Status: Acute Plan Patient presents with recurrent hypotension. Patient's hypotension is likely multifactorial due to a combination of the patient's antihypertensive medications which have been adjusted during his last hospitalization but had been placed back on previous dosing instead of the adjusted medications and exacerbated by patient's underlying orthostatic hypotension due to autonomic dysfunction from polyneuropathy. Patient's blood pressures improved with IV fluid administration and remained stable although still having orthostatic changes. He want to avoid giving the patient too much fluid given his history of diastolic dysfunction and dependence on peritoneal dialysis. Patient may benefit from Bright hose while up and ambulating. Will discuss this as an option with the patient. At this time will place patient back on his home Coreg and will hold the patient's home Lasix. Will hold off on giving the patient any further fluid boluses. And monitor strict I&O's. Patient did have minimally elevated troponins likely due to demand ischemia from hypotension and sinus tachycardia resulting in mild demand ischemia in the setting of end-stage renal disease. Patient does have sinus tachycardia and temperatures are elevated to 99.8. The patient may have underlying infection. Blood cultures were obtained in the ER. Chest x-ray was negative for acute process. Will send peritoneal fluid for Gram stain and culture. Will hold off on starting antibiotics until re-evaluation of clinical status and repeat CBC has been ordered for a.m.. Patient does have some mild hypokalemia in the setting of end-stage renal disease on peritoneal dialysis. Patient did receive 40 mEq of p.o. potassium. Nephrology has been consulted for peritoneal dialysis management. Will repeat electrolyte panel in a.m.. patient is seen by senior core java developer suspect dizziness and hypotension due to over dialyzed with PD, patient had PD yesterday, feels little better but still weak and tired will monitor, patient is seen by immigration patrol inspector will monitor. Subjective Date/time seen: 10/11/24 15:15 Interval history: patient is seen by senior core java developer suspect dizziness and hypotension due to over dialyzed with PD, patient had PD yesterday, feels little better but still weak and tired will monitor, patient is seen by immigration patrol inspector will monitor. Review of Systems Review of Systems: As per HPI. Exam Narrative: Patient is comfortable, NAD HEENT: eyes are clear and none icteric LUNGS:CTA HEART: RR S1S2 ABD: BS+, Soft and nontender Lower extremities: no edema SKIN: nonjaundiced Neuro: grossly intact. Objective Data Vital Signs Vital Signs: Vital Signs - 24 hr 10/10/24 15:56 10/10/24 16:00 10/10/24 16:00 Temperature 36.6 C Pulse Rate 95 92 Respiratory Rate 12 Blood Pressure 125/76 Pulse Oximetry 96 Oxygen Delivery Room Air 10/10/24 17:51 10/10/24 20:00 10/10/24 20:00 Temperature 36.8 C Pulse Rate 106 H 100 Respiratory Rate 12 Blood Pressure 135/89 Pulse Oximetry 96 Oxygen Delivery Room Air 10/10/24 20:00 10/10/24 22:00 10/11/24 00:00 Temperature Pulse Rate 96 95 Respiratory Rate Blood Pressure Pulse Oximetry Oxygen Delivery Room Air 10/11/24 00:00 10/11/24 00:00 10/11/24 02:00 Temperature 36.8 C Pulse Rate 95 96 92 Respiratory Rate 20 Blood Pressure 139/78 Pulse Oximetry 95 Oxygen Delivery 10/11/24 03:17 10/11/24 03:42 10/11/24 04:00 Temperature 36.4 C Pulse Rate 99 88 Respiratory Rate 20 Blood Pressure 153/99 H Pulse Oximetry 97 Oxygen Delivery Room Air 10/11/24 06:00 10/11/24 07:15 10/11/24 08:00 Temperature 36.7 C Pulse Rate 94 102 H Respiratory Rate 16 Blood Pressure 151/97 H 151/97 H Pulse Oximetry Oxygen Delivery 10/11/24 08:00 10/11/24 08:00 10/11/24 08:00 Temperature 36.7 C Pulse Rate 104 H 102 H Respiratory Rate 16 Blood Pressure 151/97 H Pulse Oximetry 97 Oxygen Delivery Room Air 10/11/24 08:12 10/11/24 08:12 10/11/24 08:31 Temperature Pulse Rate Respiratory Rate Blood Pressure 151/97 H 120/105 H Pulse Oximetry 97 Oxygen Delivery Room Air 10/11/24 08:33 10/11/24 10:00 10/11/24 11:32 Temperature 36.7 C Pulse Rate 106 H 84 85 Respiratory Rate 18 Blood Pressure 157/101 H Pulse Oximetry 96 Oxygen Delivery 10/11/24 12:00 Temperature Pulse Rate 93 Respiratory Rate Blood Pressure Pulse Oximetry Oxygen Delivery Intake/Output Intake/Output: Intake & Output 10/08/24 10/09/24 10/10/24 10/11/24 23:59 23:59 23:59 23:59 Intake Total 2330 794 Output Total 0 1320 Balance 2330 -526 Meds/Results Medications: Active Medications Generic Name Dose Route Start Last Admin Trade Name Freq PRN Reason Stop Dose Admin Hydrocodone Bitart/Acetaminophen 1 tab 10/09/24 21:44 10/10/24 23:44 Hydrocodone/Acetaminophen (*Crx) 5-325 Mg Tablet PO 1 tab Q8H PRN Administration Pain Rated 4-10 Buspirone HCl 10 mg 10/10/24 14:00 10/11/24 13:38 Buspirone Hcl 10 Mg Tablet PO 10 mg Q8HR [facility] Administration Calcium Acetate 2,668 mg 10/09/24 21:45 10/11/24 11:47 Calcium Acetate 667 Mg Tablet PO 2,668 mg TIDWM [facility] Administration Calcium Carbonate 200 mg 10/09/24 21:44 Calcium Carbonate (Tums) 500 Mg (200 Mg Elemental) PO HS PRN Indigestion Cinacalcet 90 mg 10/10/24 08:00 10/11/24 08:34 Cinacalcet 30 Mg Tablet PO 90 mg DAILY@0800 [facility] Administration Diphenoxylate HCl/Atropine 1 tablet 10/09/24 21:44 10/11/24 13:42 Diphenoxylate/Atropine (*Crx) 2.5 Mg Tablet PO 1 tablet QID PRN Administration diarrhea Escitalopram Oxalate 10 mg 10/10/24 09:00 10/11/24 08:33 Escitalopram Oxalate 10 Mg Tablet PO 10 mg DAILY [facility] Administration Gabapentin 100 mg 10/10/24 14:00 10/11/24 13:38 Gabapentin 100 Mg Capsule PO 100 mg Q8HR [facility] Administration Heparin Sodium (Porcine) 5,000 units 10/10/24 09:00 10/11/24 08:33 Heparin Sodium 5,000 Units/Ml Vial SUB-Q 5,000 units Q12HR [facility] Administration Melatonin 20 mg 10/09/24 21:44 10/10/24 23:45 Melatonin 5 Mg Tablet PO 20 mg HS PRN Administration Insomnia Metoprolol Tartrate 12.5 mg 10/11/24 09:00 10/11/24 08:33 Metoprolol Tartrate 12.5 Mg Tablet PO 12.5 mg Q12HR [facility] Administration Miscellaneous Information 0 each 10/09/24 22:05 10/11/24 02:47 Ferric Citrate [Auryxia] 210 Mg Iron Tablet- Nonformulary. Please Obtain A Home Supply If XX 11/08/24 22:04 Not Given [facility]IFY [facility] Multivitamins Therapeutic 1 tablet 10/10/24 09:00 10/11/24 08:33 Multivitamins Therapeutic Tab (*Bkc) PO 1 tablet DAILY [facility] Administration Non-Formulary Medication 210 mg 10/10/24 08:00 Ferric Citrate [Auryxia] PO 11/09/24 07:59 TIDWM [facility] Nortriptyline HCl 50 mg 10/09/24 22:00 10/10/24 20:36 Nortriptyline Hcl 25 Mg Capsule PO 50 mg HS [facility] Administration Pantoprazole Sodium 40 mg 10/10/24 09:00 10/11/24 08:33 Pantoprazole 40 Mg Tablet PO 40 mg QAM [facility] Administration Radiology Results: ITS Impressions Chest X-Ray 10/09/24 15:22 IMPRESSION: No focal infiltrate or effusion. Labs Labs: Laboratory Results - last 24 hr 10/11/24 03:41 WBC 9.6 RBC 3.50 L Hgb 10.9 L Hct 34.2 L MCV 97.7 MCH 31.1 MCHC 31.9 L RDW 13.0 Plt Count 388 H MPV 8.6 Sodium 133 L Potassium 3.0 L Chloride 98 Carbon Dioxide 24 Anion Gap 11 BUN 38 H Creatinine 11.67 H Estim Creat Clear Calc 8 Estimated GFR 5 L Glucose 103 Calcium 8.1 L Phosphorus 4.4 Magnesium 2.0 Albumin 3.1 L
[2024-10-11] MEDS: NORTRIPTYLINE HCL 25 MG CAPSULE 50 MG PO (21:29)
[2024-10-11] MEDS: MELATONIN 5 MG TABLET 20 MG PO (22:18)
[2024-10-11] MEDS: HYDROcodone/acetaminophen (*CRX) 5-325 MG TABLET 1 TAB PO (22:18)
[2024-10-12] VITALS (15 sets, daily range): BP systolic 132–166; BP diastolic 92–103; PULSE 81–99; RESP 16–20; TEMP 36.2–36.8; O2SAT 93–100
[2024-10-12 04:47] LABS: Hematocrit 33.4 % (42.0-52.0); Hemoglobin 10.5 g/dL (14.0-18.0); Mean Corpuscular HGB Conc 31.4 g/dl (32-36); Mean Corpuscular Hemoglobin 31.0 pg (26-34); Mean Corpuscular Volume 98.5 fl (80-100); Platelet Count Result 351 k/mm3 (150-375); Red Blood Count 3.39 M/mm3 (4.6-6.20); White Blood Count 9.2 K/mm3 (4.5-10.0)
[2024-10-12 05:16] LABS: Albumin Level 3.0 g/dL (3.5-5.1); Anion Gap 10 mmol/L (4-12); Blood Urea Nitrogen 39 mg/dL (9-20); Calcium 7.9 mg/dL (8.4-10.2); Carbon Dioxide 25 mmol/L (22-30); Chloride 95 mmol/L (98-107); Estimated CRCL calculation 8 ml/min; Estimated Glomerular Filt Rate 5; Glucose 84 mg/dL (65-110); Magnesium 1.8 mg/dL (1.6-2.3); Potassium 3.4 mmol/L (3.4-5.0); Sodium 130 mmol/L (137-145)
[2024-10-12] MEDS: GABAPENTIN 100 MG CAPSULE PO ×3 (05:23→21:18)
[2024-10-12] MEDS: HYDROcodone/acetaminophen (*CRX) 5-325 MG TABLET 1 TAB PO ×2 (09:26→21:21)
[2024-10-12] MEDS: ESCITALOPRAM OXALATE 10 MG TABLET PO (09:26)
[2024-10-12] MEDS: CALCIUM ACETATE 667 MG TABLET 2668 MG PO ×3 (09:27→17:02)
[2024-10-12] MEDS: PANTOPRAZOLE 40 MG TABLET PO (09:28)
[2024-10-12] MEDS: MULTIVITAMINS THERAPEUTIC TAB (*BKC) 1 TABLET PO (09:28)
[2024-10-12] MEDS: METOPROLOL TARTRATE 12.5 MG TABLET PO ×2 (09:28→21:19)
[2024-10-12] MEDS: CINACALCET 30 MG TABLET 90 MG PO (09:28)
--- NOTE | 2024-10-12 13:39 | P.PNNP_ITS ---
Progress Note: A&P Assessment and Plan (1) End stage renal disease: Code(s): N18.6 - End stage renal disease Status: Chronic Assessment and Plan: * continue CCPD while hospitalized * continue current Rx * follow trend of electrolytes, volume status, and clearance (2) Hypotension: Code(s): I95.9 - Hypotension, unspecified Status: Acute Assessment and Plan: * as noted on presentation * responded well to IVFs in the ER * possibly due to aggressive fluid removal/ultrafiltration with dialysis on recent hospitalization * medication related(?) -- he is not clear on BP medications he was taking.... * clinical improvement noted * follow trend of hemodynamics (3) Anemia: Code(s): D64.9 - Anemia, unspecified Status: Acute Assessment and Plan: * due to ESRD * stable at this time * resume Epogen when Hgb < 10 (4) Hyponatremia: Code(s): E87.1 - Hypo-osmolality and hyponatremia Status: Chronic Assessment and Plan: * relatively stable (but fluctuates at baseline) * due to fluctuations in volume status, water intake and renal failure * follow trend (5) Congestive heart failure: Code(s): I50.9 - Heart failure, unspecified Status: Chronic Assessment and Plan: * known history of systolic and diastolic dysfunction * last Echo (July 2024) noted: * left ventricular systolic function is normal, estimated at 55-60% * left ventricular diastolic function is abnormal * mitral valve has a moderately calcified annulus * mild mitral valve regurgitation * mild pulmonary hypertension, estimated pulmonary arterial systolic pressure is 45 mmHg * trace pulmonic regurgitation * overall heart function seems to be improved * appears stable if not compensated (6) HTN (hypertension): Code(s): I10 - Essential (primary) hypertension Status: Chronic Assessment and Plan: * despite known history, low BP on presentation * BP medications with parameters * follow trend of hemodynamics (7) Neuropathy: Code(s): G62.9 - Polyneuropathy, unspecified Status: Acute Assessment and Plan: * known diagnosis * etiology not entirely clear * follows with Neurology as an outpatient (8) Generalized weakness: Code(s): R53.1 - Weakness Status: Resolved Assessment and Plan: * related to low BP and possible deconditioning from recent hospitalization * PT/OT as tolerated Will continue to follow. L Subjective Date/time seen: 10/12/24 13:39 Interval history: Follow-up for end stage renal disease on peritoneal dialysis. Nightly peritoneal dialysis treatments appears to be going well; overall, reports feeling better in general since admission but still voices a bit weak and fatigued in general; working with PT/OT as tolerated; no acute distress voiced when seen. Exam 2 Narrative: General: WD/WN male in NAD Heart: normal S1 and S2; no rub Lungs: clear anteriorly; decreased at bases Abdomen: soft, nontender, nondistended, positive bowel sounds Extremities: no cyanosis or clubbing; trace edema Skin: warm and intact Objective Data Vital Signs Vital Signs: Vital Signs Temp Pulse Resp BP Pulse Ox O2 Del Method FiO2 10/12/24 13:00 98.2 F 90 20 148/103 H 100 10/12/24 10:27 Room Air 10/12/24 09:28 98 10/12/24 08:05 Room Air 10/12/24 08:00 81 16 97 Room Air 10/12/24 08:00 97 10/12/24 07:40 97.9 F 98 16 158/95 H 100 10/12/24 06:51 97.6 F 85 20 132/97 H 10/12/24 04:00 85 10/12/24 00:00 91 10/12/24 00:00 97.6 F 86 100 10/11/24 21:31 99 20 94 Room Air 21 10/11/24 21:29 95 10/11/24 20:00 102 H 10/11/24 20:00 98 20 96 Room Air 10/11/24 20:00 132/97 H Intake/Output Intake/Output: Intake & Output 10/09/24 10/10/24 10/11/24 10/12/24 23:59 23:59 23:59 23:59 Intake Total 2330 1234 2120 Output Total 0 1320 1622 Balance 2330 -86 498 Meds/Results Medications: Active Medications Generic Name Dose Route Start Last Admin Trade Name Freq PRN Reason Stop Dose Admin Hydrocodone Bitart/Acetaminophen 1 tab 10/09/24 21:44 10/12/24 09:26 Hydrocodone/Acetaminophen (*Crx) 5-325 Mg Tablet PO 1 tab Q8H PRN Administration Pain Rated 4-10 Buspirone HCl 10 mg 10/10/24 14:00 10/12/24 13:29 Buspirone Hcl 10 Mg Tablet PO 10 mg Q8HR CARIDAD Administration Calcium Acetate 2,668 mg 10/09/24 21:45 10/12/24 17:02 Calcium Acetate 667 Mg Tablet PO 2,668 mg TIDWM CARIDAD Administration Calcium Carbonate 200 mg 10/09/24 21:44 Calcium Carbonate (Tums) 500 Mg (200 Mg Elemental) PO HS PRN Indigestion Cinacalcet 90 mg 10/10/24 08:00 10/12/24 09:28 Cinacalcet 30 Mg Tablet PO 90 mg DAILY@0800 [facility] Administration Diphenoxylate HCl/Atropine 1 tablet 10/09/24 21:44 10/12/24 14:06 Diphenoxylate/Atropine (*Crx) 2.5 Mg Tablet PO 1 tablet QID PRN Administration diarrhea Escitalopram Oxalate 10 mg 10/10/24 09:00 10/12/24 09:26 Escitalopram Oxalate 10 Mg Tablet PO 10 mg DAILY CARID[facility] Administration Gabapentin 100 mg 10/10/24 14:00 10/12/24 13:29 Gabapentin 100 Mg Capsule PO 100 mg Q8HR CARIDAD Administration Heparin Sodium (Porcine) 5,000 units 10/10/24 09:00 10/12/24 09:29 Heparin Sodium 5,000 Units/Ml Vial SUB-Q 5,000 units Q12HR [facility]IDAD Administration Melatonin 20 mg 10/09/24 21:44 10/11/24 22:18 Melatonin 5 Mg Tablet PO 20 mg HS PRN Administration Insomnia Metoprolol Tartrate 12.5 mg 10/11/24 09:00 10/12/24 09:28 Metoprolol Tartrate 12.5 Mg Tablet PO 12.5 mg Q12HR CARIDAD Administration Miscellaneous Information 0 each 10/09/24 22:05 10/11/24 02:47 Ferric Citrate [Auryxia] 210 Mg Iron Tablet- Nonformulary. Please Obtain A Home Supply If XX 11/08/24 22:04 Not Given [facility] Multivitamins Therapeutic 1 tablet 10/10/24 09:00 10/12/24 09:28 Multivitamins Therapeutic Tab (*Bkc) PO 1 tablet DAILY CARIDAD Administration Non-Formulary Medication 210 mg 10/10/24 08:00 Ferric Citrate [Auryxia] PO 11/09/24 07:59 TIDWM [facility] Nortriptyline HCl 50 mg 10/09/24 22:00 10/11/24 21:29 Nortriptyline Hcl 25 Mg Capsule PO 50 mg HS CARIDAD Administration Pantoprazole Sodium 40 mg 10/10/24 09:00 10/12/24 09:28 Pantoprazole 40 Mg Tablet PO 40 mg QAM CARIDAD Administration Radiology Results: ITS Impressions Chest X-Ray 10/09/24 15:22 IMPRESSION: No focal infiltrate or effusion. Labs Labs: Laboratory Tests 10/12/24 04:11 10/12/24 04:11 Calcium 7.9 L Phosphorus 5.0 H Magnesium 1.8 Albumin 3.0 L Microbiology 10/09/24 15:25 Blood Blood Culture - Preliminary 10/09/24 15:03 Blood Blood Culture - Preliminary
[2024-10-12] MEDS: DIPHENOXYLATE/ATROPINE (*CRX) 2.5 MG TABLET 1 TABLET PO (14:06)
--- NOTE | 2024-10-12 16:00 | PM.IMPN ---
Progress Note: A&P Assessment and Plan (1) Orthostatic hypotension: Code(s): I95.1 - Orthostatic hypotension Status: Acute (2) Autonomic dysfunction: Code(s): G90.9 - Disorder of the autonomic nervous system, unspecified Status: Acute (3) Elevated troponin: Code(s): R79.89 - Other specified abnormal findings of blood chemistry Status: Acute (4) Acute hypokalemia: Code(s): E87.6 - Hypokalemia Status: Acute (5) Peripheral neuropathy: Qualifiers: Peripheral neuropathy type: polyneuropathy, unspecified Qualified Code(s): G62.9 - Polyneuropathy, unspecified Code(s): G62.9 - Polyneuropathy, unspecified Status: Chronic (6) End-stage renal disease on peritoneal dialysis: Code(s): N18.6 - End stage renal disease; Z99.2 - Dependence on renal dialysis Status: Acute Plan Patient presents with recurrent hypotension. Patient's hypotension is likely multifactorial due to a combination of the patient's antihypertensive medications which have been adjusted during his last hospitalization but had been placed back on previous dosing instead of the adjusted medications and exacerbated by patient's underlying orthostatic hypotension due to autonomic dysfunction from polyneuropathy. Patient's blood pressures improved with IV fluid administration and remained stable although still having orthostatic changes. He want to avoid giving the patient too much fluid given his history of diastolic dysfunction and dependence on peritoneal dialysis. Patient may benefit from Bright hose while up and ambulating. Will discuss this as an option with the patient. At this time will place patient back on his home Coreg and will hold the patient's home Lasix. Will hold off on giving the patient any further fluid boluses. And monitor strict I&O's. Patient did have minimally elevated troponins likely due to demand ischemia from hypotension and sinus tachycardia resulting in mild demand ischemia in the setting of end-stage renal disease. Patient does have sinus tachycardia and temperatures are elevated to 99.8. The patient may have underlying infection. Blood cultures were obtained in the ER. Chest x-ray was negative for acute process. Will send peritoneal fluid for Gram stain and culture. Will hold off on starting antibiotics until re-evaluation of clinical status and repeat CBC has been ordered for a.m.. Patient does have some mild hypokalemia in the setting of end-stage renal disease on peritoneal dialysis. Patient did receive 40 mEq of p.o. potassium. Nephrology has been consulted for peritoneal dialysis management. Will repeat electrolyte panel in a.m.. patient is seen by accounting policy consultant suspect dizziness and hypotension is due to over dialyzed with PD, patient was gently hydrated in the ER and did help patient symptoms, patient had PD last night, feels little better but still weak and tired, does not want to be discharged today, as patient is discharged by the cardilogist, will monitor, patient is seen by video tape transferrer will monitor. Subjective Date/time seen: 10/12/24 16:00 Interval history: patient is seen by accounting policy consultant suspect dizziness and hypotension is due to over dialyzed with PD, patient was gently hydrated in the ER and did help patient symptoms, patient had PD last night, feels little better but still weak and tired, does not want to be discharged today, as patient is discharged by the cardilogist, will monitor, patient is seen by video tape transferrer will monitor. Review of Systems Review of Systems: As per HPI. Exam Narrative: Patient is comfortable, NAD HEENT: eyes are clear and none icteric LUNGS:CTA HEART: RR S1S2 ABD: BS+, Soft and nontender Lower extremities: no edema SKIN: nonjaundiced Neuro: grossly intact. Objective Data Vital Signs Vital Signs: Vital Signs - 24 hr 10/11/24 20:00 10/11/24 20:00 10/11/24 20:00 Temperature Pulse Rate 98 102 H Respiratory Rate 20 Blood Pressure 132/97 H Pulse Oximetry 96 Oxygen Delivery Room Air Fraction of Inspired Oxygen 10/11/24 21:29 10/11/24 21:31 10/12/24 00:00 Temperature 36.4 C Pulse Rate 95 99 86 Respiratory Rate 20 Blood Pressure Pulse Oximetry 94 100 Oxygen Delivery Room Air Fraction of Inspired Oxygen 21 10/12/24 00:00 10/12/24 04:00 10/12/24 06:51 Temperature 36.4 C Pulse Rate 91 85 85 Respiratory Rate 20 Blood Pressure 132/97 H Pulse Oximetry Oxygen Delivery Fraction of Inspired Oxygen 10/12/24 07:40 10/12/24 08:00 10/12/24 08:00 Temperature 36.6 C Pulse Rate 98 97 81 Respiratory Rate 16 16 Blood Pressure 158/95 H Pulse Oximetry 100 97 Oxygen Delivery Room Air Fraction of Inspired Oxygen 10/12/24 08:05 10/12/24 09:28 10/12/24 10:27 Temperature Pulse Rate 98 Respiratory Rate Blood Pressure Pulse Oximetry Oxygen Delivery Room Air Room Air Fraction of Inspired Oxygen 10/12/24 12:00 Temperature Pulse Rate 86 Respiratory Rate Blood Pressure Pulse Oximetry Oxygen Delivery Fraction of Inspired Oxygen Intake/Output Intake/Output: Intake & Output 10/09/24 10/10/24 10/11/24 10/12/24 23:59 23:59 23:59 23:59 Intake Total 2330 1234 970 Output Total 0 1320 1622 Balance 5599 -11 -724 Meds/Results Medications: Active Medications Generic Name Dose Route Start Last Admin Trade Name Freq PRN Reason Stop Dose Admin Hydrocodone Bitart/Acetaminophen 1 tab 10/09/24 21:44 10/12/24 09:26 Hydrocodone/Acetaminophen (*Crx) 5-325 Mg Tablet PO 1 tab Q8H PRN Administration Pain Rated 4-10 Buspirone HCl 10 mg 10/10/24 14:00 10/12/24 13:29 Buspirone Hcl 10 Mg Tablet PO 10 mg Q8HR CARIDAD Administration Calcium Acetate 2,668 mg 10/09/24 21:45 10/12/24 13:29 Calcium Acetate 667 Mg Tablet PO 2,668 mg TIDWM CARIDAD Administration Calcium Carbonate 200 mg 10/09/24 21:44 Calcium Carbonate (Tums) 500 Mg (200 Mg Elemental) PO HS PRN Indigestion Cinacalcet 90 mg 10/10/24 08:00 10/12/24 09:28 Cinacalcet 30 Mg Tablet PO 90 mg DAILY@0800 [facility] Administration Diphenoxylate HCl/Atropine 1 tablet 10/09/24 21:44 10/12/24 14:06 Diphenoxylate/Atropine (*Crx) 2.5 Mg Tablet PO 1 tablet QID PRN Administration diarrhea Escitalopram Oxalate 10 mg 10/10/24 09:00 10/12/24 09:26 Escitalopram Oxalate 10 Mg Tablet PO 10 mg DAILY CARIDAD Administration Gabapentin 100 mg 10/10/24 14:00 10/12/24 13:29 Gabapentin 100 Mg Capsule PO 100 mg Q8HR CARIDAD Administration Heparin Sodium (Porcine) 5,000 units 10/10/24 09:00 10/12/24 09:29 Heparin Sodium 5,000 Units/Ml Vial SUB-Q 5,000 units Q12HR CARIDAD Administration Melatonin 20 mg 10/09/24 21:44 10/11/24 22:18 Melatonin 5 Mg Tablet PO 20 mg HS PRN Administration Insomnia Metoprolol Tartrate 12.5 mg 10/11/24 09:00 10/12/24 09:28 Metoprolol Tartrate 12.5 Mg Tablet PO 12.5 mg Q12HR CARIDAD Administration Miscellaneous Information 0 each 10/09/24 22:05 10/11/24 02:47 Ferric Citrate [Auryxia] 210 Mg Iron Tablet- Nonformulary. Please Obtain A Home Supply If XX 11/08/24 22:04 Not Given CLARIFY [facility] Multivitamins Therapeutic 1 tablet 10/10/24 09:00 10/12/24 09:28 Multivitamins Therapeutic Tab (*Bkc) PO 1 tablet DAILY CARIDAD Administration Non-Formulary Medication 210 mg 10/10/24 08:00 Ferric Citrate [Auryxia] PO 11/09/24 07:59 TIDWM CARIDAD Nortriptyline HCl 50 mg 10/09/24 22:00 10/11/24 21:29 Nortriptyline Hcl 25 Mg Capsule PO 50 mg HS CARIDAD Administration Pantoprazole Sodium 40 mg 10/10/24 09:00 10/12/24 09:28 Pantoprazole 40 Mg Tablet PO 40 mg QAM CARIDAD Administration Radiology Results: ITS Impressions Chest X-Ray 10/09/24 15:22 IMPRESSION: No focal infiltrate or effusion. Labs Labs: Laboratory Results - last 24 hr 10/12/24 04:11 WBC 9.2 RBC 3.39 L Hgb 10.5 L Hct 33.4 L MCV 98.5 MCH 31.0 MCHC 31.4 L RDW 12.8 Plt Count 351 MPV 8.8 Sodium 130 L Potassium 3.4 Chloride 95 L Carbon Dioxide 25 Anion Gap 10 BUN 39 H Creatinine 11.57 H Estim Creat Clear Calc 8 Estimated GFR 5 L Glucose 84 Calcium 7.9 L Phosphorus 5.0 H Magnesium 1.8 Albumin 3.0 L Quality VTE Prophylaxis VTE prophylaxis: pharmacologic ordered (Heparin 5000 units subQ q.12 hours.)
[2024-10-12] MEDS: POTASSIUM CHLORIDE 20 MEQ ER TABLET 40 MEQ PO (17:52)
--- NOTE | 2024-10-12 17:53 | ADMGEN ---
This patient, Real Rolon, was admitted to Medical Room 341-01. Patient/family oriented to hospital policies and general routines including ID bracelet, bed and alarms, visiting hours, pain management, procedures, bathroom and other care routines, personal items, smoking policy, room service/diet, and visiting hours. Information on how to activate the Rapid Response Team has been discussed. Patient/Family are encouraged to report perceived risks to care and to ask questions if they do not understand what they are told or what they should do.
[2024-10-12] MEDS: MELATONIN 5 MG TABLET 20 MG PO (21:18)
[2024-10-12] MEDS: NORTRIPTYLINE HCL 25 MG CAPSULE 50 MG PO (21:19)
[2024-10-13] VITALS (17 sets, daily range): BP systolic 124–165; BP diastolic 85–106; PULSE 78–103; RESP 16–18; TEMP 35.9–36.6; O2SAT 96–100
[2024-10-13 05:57] LABS: Hematocrit 32.1 % (42.0-52.0); Hemoglobin 10.2 g/dL (14.0-18.0); Mean Corpuscular HGB Conc 31.8 g/dl (32-36); Mean Corpuscular Hemoglobin 30.8 pg (26-34); Mean Corpuscular Volume 97.0 fl (80-100); Platelet Count Result 338 k/mm3 (150-375); Red Blood Count 3.31 M/mm3 (4.6-6.20); White Blood Count 9.0 K/mm3 (4.5-10.0)
[2024-10-13] MEDS: GABAPENTIN 100 MG CAPSULE PO ×3 (06:06→21:03)
[2024-10-13 06:18] LABS: Albumin Level 2.9 g/dL (3.5-5.1); Anion Gap 9 mmol/L (4-12); Blood Urea Nitrogen 40 mg/dL (9-20); Calcium 7.8 mg/dL (8.4-10.2); Carbon Dioxide 23 mmol/L (22-30); Chloride 97 mmol/L (98-107); Estimated CRCL calculation 8 ml/min; Estimated Glomerular Filt Rate 4; Glucose 87 mg/dL (65-110); Magnesium 1.7 mg/dL (1.6-2.3); Potassium 3.5 mmol/L (3.4-5.0); Sodium 129 mmol/L (137-145)
--- NOTE | 2024-10-13 06:41 | PC.NURSE ---
GAMBLING FLOOR SUPERVISOR HERE. PATIENT DISCONNECTED AT THIS TIME. AMOUNT REMOVED STATED 260ML.
[2024-10-13] MEDS: MULTIVITAMINS THERAPEUTIC TAB (*BKC) 1 TABLET PO (09:02)
[2024-10-13] MEDS: CINACALCET 30 MG TABLET 90 MG PO (09:02)
[2024-10-13] MEDS: METOPROLOL TARTRATE 12.5 MG TABLET PO ×2 (09:02→21:02)
[2024-10-13] MEDS: PANTOPRAZOLE 40 MG TABLET PO (09:04)
[2024-10-13] MEDS: CALCIUM ACETATE 667 MG TABLET 2668 MG PO ×3 (09:04→17:06)
[2024-10-13] MEDS: ESCITALOPRAM OXALATE 10 MG TABLET PO (09:08)
[2024-10-13] MEDS: HYDROcodone/acetaminophen (*CRX) 5-325 MG TABLET 1 TAB PO ×2 (09:09→21:03)
--- NOTE | 2024-10-13 11:20 | P.PNNP_ITS ---
Progress Note: A&P Assessment and Plan (1) End stage renal disease: Code(s): N18.6 - End stage renal disease Status: Chronic Assessment and Plan: * continue CCPD while hospitalized * continue current Rx (with adjustments as needed) * follow trend of electrolytes, volume status, and clearance (2) Hypotension: Code(s): I95.9 - Hypotension, unspecified Status: Acute Assessment and Plan: * as noted on presentation * responded well to IVFs in the ER * possibly due to aggressive fluid removal/ultrafiltration with dialysis on recent hospitalization * medication related(?) -- he is not entirely clear on BP medications he was taking at home.... * clinical improvement noted * follow trend of hemodynamics (3) Anemia: Code(s): D64.9 - Anemia, unspecified Status: Acute Assessment and Plan: * due to ESRD * stable at this time * resume Epogen when Hgb < 10 (4) Hyponatremia: Code(s): E87.1 - Hypo-osmolality and hyponatremia Status: Chronic Assessment and Plan: * relatively stable (but fluctuates at baseline) * due to fluctuations in volume status, water intake and renal failure * follow trend (5) Congestive heart failure: Code(s): I50.9 - Heart failure, unspecified Status: Chronic Assessment and Plan: * known history of systolic and diastolic dysfunction * last Echo (July 2024) noted: * left ventricular systolic function is normal, estimated at 55-60% * left ventricular diastolic function is abnormal * mitral valve has a moderately calcified annulus * mild mitral valve regurgitation * mild pulmonary hypertension, estimated pulmonary arterial systolic pressure is 45 mmHg * trace pulmonic regurgitation * overall heart function seems to be improved * appears stable if not compensated (6) HTN (hypertension): Code(s): I10 - Essential (primary) hypertension Status: Chronic Assessment and Plan: * despite known history, low BP on presentation * BP medications with parameters * follow trend of hemodynamics (7) Neuropathy: Code(s): G62.9 - Polyneuropathy, unspecified Status: Acute Assessment and Plan: * known diagnosis * etiology not entirely clear * follows with Neurology as an outpatient (8) Generalized weakness: Code(s): R53.1 - Weakness Status: Resolved Assessment and Plan: * related to low BP and possible deconditioning from recent hospitalizations * PT/OT as tolerated Will continue to follow. L Subjective Date/time seen: 10/13/24 11:20 Interval history: Follow-up for end stage renal disease on peritoneal dialysis. Tolerated peritoneal dialysis treatment overnight without any issues or problems ([facility]PD supervised and seen at 11:10am); overall, states he feels he is slowly improving; blood pressure remains relatively stable with orthostatics this AM noted; continues to work with therapy as tolerated. Exam 2 Narrative: General: WD/WN male in NAD Heart: normal S1 and S2; no rub Lungs: clear anteriorly; decreased at bases Abdomen: soft, nontender, nondistended, positive bowel sounds Extremities: no cyanosis or clubbing; trace edema Skin: no rash Objective Data Vital Signs Vital Signs: Vital Signs Temp Pulse Resp BP Pulse Ox O2 Del Method 10/13/24 14:00 96.7 F L 89 16 151/104 H 99 10/13/24 09:02 103 H 10/13/24 09:00 91 10/13/24 09:00 100 Room Air 10/13/24 08:31 96.7 F L 102 H 16 125/90 standing 100 10/13/24 08:30 96.9 F L 98 16 133/98 H sitting 99 10/13/24 08:25 97.0 F L 88 16 138/91 H supine 100 10/13/24 06:47 97.2 F L 94 18 126/88 10/13/24 06:05 97.2 F L 94 18 126/88 96 10/13/24 04:00 85 10/13/24 00:00 89 10/12/24 21:19 92 10/12/24 21:19 95 137/94 H 93 10/12/24 21:15 99 164/101 H 100 10/12/24 21:12 97.2 F L 89 18 166/95 H 99 10/12/24 20:01 98 Room Air 10/12/24 20:00 90 10/12/24 20:00 Room Air 10/12/24 18:02 149/92 H 10/12/24 18:01 142/98 H 10/12/24 16:00 92 10/12/24 16:00 98.2 F 90 20 148/103 H 100 Intake/Output Intake/Output: Intake & Output 10/10/24 10/11/24 10/12/24 10/13/24 23:59 23:59 23:59 23:59 Intake Total 2330 1234 2360 1099 Output Total 0 1320 1622 263 Balance 2330 -86 738 836 Meds/Results Medications: Active Medications Generic Name Dose Route Start Last Admin Trade Name Freq PRN Reason Stop Dose Admin Hydrocodone Bitart/Acetaminophen 1 tab 10/09/24 21:44 10/13/24 09:09 Hydrocodone/Acetaminophen (*Crx) 5-325 Mg Tablet PO 1 tab Q8H PRN Administration Pain Rated 4-10 Buspirone HCl 10 mg 10/10/24 14:00 10/13/24 13:10 Buspirone Hcl 10 Mg Tablet PO 10 mg Q8HR CARIDAD Administration Calcium Acetate 2,668 mg 10/09/24 21:45 10/13/24 12:10 Calcium Acetate 667 Mg Tablet PO 2,668 mg TIDWM CARIDAD Administration Calcium Carbonate 200 mg 10/09/24 21:44 Calcium Carbonate (Tums) 500 Mg (200 Mg Elemental) PO HS PRN Indigestion Cinacalcet 90 mg 10/10/24 08:00 10/13/24 09:02 Cinacalcet 30 Mg Tablet PO 90 mg DAILY@0800 CARIDAD Administration Diphenoxylate HCl/Atropine 1 tablet 10/09/24 21:44 10/12/24 14:06 Diphenoxylate/Atropine (*Crx) 2.5 Mg Tablet PO 1 tablet QID PRN Administration diarrhea Escitalopram Oxalate 10 mg 10/10/24 09:00 10/13/24 09:08 Escitalopram Oxalate 10 Mg Tablet PO 10 mg DAILY CARIDAD Administration Gabapentin 100 mg 10/10/24 14:00 10/13/24 13:10 Gabapentin 100 Mg Capsule PO 100 mg Q8HR CARIDAD Administration Heparin Sodium (Porcine) 5,000 units 10/10/24 09:00 10/13/24 09:05 Heparin Sodium 5,000 Units/Ml Vial SUB-Q 5,000 units Q12HR CARIDAD Administration Melatonin 20 mg 10/09/24 21:44 10/12/24 21:18 Melatonin 5 Mg Tablet PO 20 mg HS PRN Administration Insomnia Metoprolol Tartrate 12.5 mg 10/11/24 09:00 10/13/24 09:02 Metoprolol Tartrate 12.5 Mg Tablet PO 12.5 mg Q12HR CARIDAD Administration Miscellaneous Information 0 each 10/09/24 22:05 10/11/24 02:47 Ferric Citrate [Auryxia] 210 Mg Iron Tablet- Nonformulary. Please Obtain A Home Supply If XX 11/08/24 22:04 Not Given CLARIFY CARIDAD Multivitamins Therapeutic 1 tablet 10/10/24 09:00 10/13/24 09:02 Multivitamins Therapeutic Tab (*Bkc) PO 1 tablet DAILY CARIDAD Administration Non-Formulary Medication 210 mg 10/10/24 08:00 Ferric Citrate [Auryxia] PO 11/09/24 07:59 TIDWM CARIDAD Nortriptyline HCl 50 mg 10/09/24 22:00 10/12/24 21:19 Nortriptyline Hcl 25 Mg Capsule PO 50 mg HS CARIDAD Administration Pantoprazole Sodium 40 mg 10/10/24 09:00 10/13/24 09:04 Pantoprazole 40 Mg Tablet PO 40 mg QAM CARIDAD Administration Radiology Results: ITS Impressions Chest X-Ray 10/09/24 15:22 IMPRESSION: No focal infiltrate or effusion. Labs Labs: Laboratory Tests 10/13/24 05:35 10/13/24 05:35 Calcium 7.8 L Phosphorus 5.0 H Magnesium 1.7 Albumin 2.9 L Microbiology 10/09/24 15:25 Blood Blood Culture - Preliminary 10/09/24 15:03 Blood Blood Culture - Preliminary
--- NOTE | 2024-10-13 13:17 | P.PNIM_ITS ---
Progress Note: A&P Assessment and Plan (1) Orthostatic hypotension: Code(s): I95.1 - Orthostatic hypotension Status: Acute Assessment and Plan: Hold off [employer] blood pressure medication except Coreg (2) Autonomic dysfunction: Code(s): G90.9 - Disorder of the autonomic nervous system, unspecified Status: Acute (3) Elevated troponin: Code(s): R79.89 - Other specified abnormal findings of blood chemistry Status: Acute Assessment and Plan: Demand ischemia (4) Acute hypokalemia: Code(s): E87.6 - Hypokalemia Status: Acute Assessment and Plan: Repeat as needed (5) Peripheral neuropathy: Qualifiers: Peripheral neuropathy type: polyneuropathy, unspecified Qualified Code(s): G62.9 - Polyneuropathy, unspecified Code(s): G62.9 - Polyneuropathy, unspecified Status: Chronic (6) End-stage renal disease on peritoneal dialysis: Code(s): N18.6 - End stage renal disease; Z99.2 - Dependence on renal dialysis Status: Acute Assessment and Plan: peritoneal Renal dialysis Plan Patient presents with recurrent hypotension. Patient's hypotension is likely multifactorial due to a combination of the patient's antihypertensive medications which have been adjusted during his last hospitalization but had been placed back on previous dosing instead of the adjusted medications and exacerbated by patient's underlying orthostatic hypotension due to autonomic dysfunction from polyneuropathy. Patient's blood pressures improved with IV f luid administration and remained stable although still having orthostatic changes. Cardiology on board. Will avoid avoid giving the patient too much fluid given his history of diastolic dysfunction and dependence on peritoneal dialysis. Patient may benefit from Bright hose while up and ambulating. Will discuss this as an option with the patient. At this time will place patient back on his home Coreg and will hold the patient's home Lasix. Will hold off on giving the patient any further fluid boluses. And monitor strict I&O's. Patient did have minimally elevated troponins likely due to demand ischemia from hypotension and sinus tachycardia resulting in mild demand ischemia in the setting of end-stage renal disease. Patient does have sinus tachycardia and temperatures are elevated to 99.8. The patient may have underlying infection. Blood cultures were obtained in the ER. Chest x-ray was negative for acute process. Will send peritoneal fluid for Gram stain and culture. Will hold off on starting antibiotics until re-evaluation of clinical status and repeat CBC has been ordered for a.m.. Patient does have some mild hypokalemia in the setting of end-stage renal disease on peritoneal dialysis. Nephrology has been consulted for peritoneal dialysis management. Will repeat electrolyte panel in a.m.. patient is seen by alumni relations officer suspect dizziness and hypotension is due to over dialyzed with PD, patient was gently hydrated in the ER and did help patient symptoms. , feels little better but still weak and tired, does not want to be discharged today, as patient is discharged by the cardilogist, will monitor, patient is seen by c engineer will monitor. Discharge tomorrow if blood pressure stays stable Subjective Date/time seen: 10/13/24 13:17 Interval history: per HPI: Patient presents with recurrent hypotension. Patient's hypotension is likely multifactorial due to a combination of the patient's antihypertensive medications which have been adjusted during his last hospitalization but had been placed back on previous dosing instead of the adjusted medications and exacerbated by patient's underlying orthostatic hypotension due to autonomic dysfunction from polyneuropathy. Patient's blood pressures improved with IV fluid administration and remained stable although still having orthostatic changes. He want to avoid giving the patient too much fluid given his history of diastolic dysfunction and dependence on peritoneal dialysis. Patient may benefit from Bright hose while up and ambulating. Will discuss this as an option with the patient. At this time will place patient back on his home Coreg and will hold the patient's home Lasix. Will hold off on giving the patient any further fluid boluses. And monitor strict I&O's. Patient did have minimally elevated troponins likely due to demand ischemia from hypotension and sinus tachycardia resulting in mild demand ischemia in the setting of end-stage renal disease. Patient does have sinus tachycardia and temperatures are elevated to 99.8. The patient may have underlying infection. Blood cultures were obtained in the ER. Chest x-ray was negative for acute process. Will send peritoneal fluid for Gram stain and culture. Will hold off on starting antibiotics until re-evaluation of clinical status and repeat CBC has been ordered for a.m.. Patient does have some mild hypokalemia in the setting of end-stage renal disease on peritoneal dialysis. Patient did receive 40 mEq of p.o. potassium. Nephrology has been consulted for peritoneal dialysis management. Will repeat electrolyte panel in a.m.. patient is seen by alumni relations officer suspect dizziness and hypotension is due to over dialyzed with PD, patient was gently hydrated in the ER and did help patient symptoms, patient had PD last night, feels little better but still weak and tired, does not want to be discharged today, as patient is discharged by the cardilogist, will monitor, patient is seen by c engineer will monitor. 10/13/24 Patient was seen in the Med visit. He is doing fine. Denies any chest pain, shortness of breath, nausea vomiting. He is still concerning for his blood pressure. I discussed about adjusting his medication. He still does not feel comfortable to go home. Patient mentioned if we discharged he will be right back in the ER. The patient lives alone at home. Patient refusing placement. He is agreeable to walk with nursing later today. He is agreeable to be discharged tomorrow if blood pressure is stable. Review of Systems Review of Systems: As per HPI. Exam Narrative: Patient is comfortable, NAD HEENT: eyes are clear and none icteric LUNGS:CTA HEART: RR S1S2 ABD: BS+, Soft and nontender Lower extremities: no edema SKIN: nonjaundiced Neuro: grossly intact. Const: Other: No acute distress, appears older than stated age, obese HENMT: Other: Mucous membranes are tacky, crowded posterior oropharynx, edentulous in upper and lower jaw Eyes: Other: Pupils are equal and reactive, no scleral icterus Neck: Other: No JVD, no lymphadenopathy, large neck circumference Resp: Other: Clear to auscultation bilaterally, no increased work of breathing Cardio: Other: Sinus tachycardia, 2+ bilateral radial and pedal pulses, no murmur GI: Other: Soft, nondistended, nontender, normoactive bowel sounds, peritoneal dialysis catheter present without any surrounding erythema Skin: Other: Slightly jaundiced tone but no scleral icterus, Neuro: Other: Alert oriented x4, speech is clear, no facial asymmetry, no localizing neurologic deficits noted during the course of conversation Extrem: Other: No clubbing, cyanosis or edema Psych: Other: Appropriate mood and affect, pleasant and cooperative Objective Data Vital Signs Vital Signs: Vital Signs - 24 hr 10/12/24 16:00 10/12/24 16:00 10/12/24 18:01 Temperature 98.2 F Pulse Rate 90 92 Respiratory Rate 20 Blood Pressure 148/103 H 142/98 H Pulse Oximetry 100 Oxygen Delivery 10/12/24 18:02 10/12/24 20:00 10/12/24 20:00 Temperature Pulse Rate 90 Respiratory Rate Blood Pressure 149/92 H Pulse Oximetry Oxygen Delivery Room Air 10/12/24 20:01 10/12/24 21:12 10/12/24 21:15 Temperature 97.2 F L Pulse Rate 89 99 Respiratory Rate 18 Blood Pressure 166/95 H 164/101 H Pulse Oximetry 98 99 100 Oxygen Delivery Room Air 10/12/24 21:19 10/12/24 21:19 10/13/24 00:00 Temperature Pulse Rate 95 92 89 Respiratory Rate Blood Pressure 137/94 H Pulse Oximetry 93 Oxygen Delivery 10/13/24 04:00 10/13/24 06:05 10/13/24 06:47 Temperature 97.2 F L 97.2 F L Pulse Rate 85 94 94 Respiratory Rate 18 18 Blood Pressure 126/88 126/88 Pulse Oximetry 96 Oxygen Delivery 10/13/24 08:25 10/13/24 08:30 10/13/24 08:31 Temperature 97.0 F L 96.9 F L 96.7 F L Pulse Rate 88 98 102 H Respiratory Rate 16 16 16 Blood Pressure 138/91 H 133/98 H 125/90 Pulse Oximetry 100 99 100 Oxygen Delivery 10/13/24 09:00 10/13/24 09:00 10/13/24 09:02 Temperature Pulse Rate 91 103 H Respiratory Rate Blood Pressure Pulse Oximetry 100 Oxygen Delivery Room Air Intake/Output Intake/Output: Intake & Output 10/10/24 10/11/24 10/12/24 10/13/24 23:59 23:59 23:59 23:59 Intake Total 2330 1234 2360 859 Output Total 0 1320 1622 263 Balance 2330 -86 738 596 Meds/Results Medications: Active Medications Generic Name Dose Route Start Last Admin Trade Name Freq PRN Reason Stop Dose Admin Hydrocodone Bitart/Acetaminophen 1 tab 10/09/24 21:44 10/13/24 09:09 Hydrocodone/Acetaminophen (*Crx) 5-325 Mg Tablet PO 1 tab Q8H PRN Administration Pain Rated 4-10 Buspirone HCl 10 mg 10/10/24 14:00 10/13/24 13:10 Buspirone Hcl 10 Mg Tablet PO 10 mg Q8HR CARIDAD Administration Calcium Acetate 2,668 mg 10/09/24 21:45 10/13/24 12:10 Calcium Acetate 667 Mg Tablet PO 2,668 mg TIDWM CARIDAD Administration Calcium Carbonate 200 mg 10/09/24 21:44 Calcium Carbonate (Tums) 500 Mg (200 Mg Elemental) PO HS PRN Indigestion Cinacalcet 90 mg 10/10/24 08:00 10/13/24 09:02 Cinacalcet 30 Mg Tablet PO 90 mg DAILY@0800 CARIDAD Administration Diphenoxylate HCl/Atropine 1 tablet 10/09/24 21:44 10/12/24 14:06 Diphenoxylate/Atropine (*Crx) 2.5 Mg Tablet PO 1 tablet QID PRN Administration diarrhea Escitalopram Oxalate 10 mg 10/10/24 09:00 10/13/24 09:08 Escitalopram Oxalate 10 Mg Tablet PO 10 mg DAILY CARIDAD Administration Gabapentin 100 mg 10/10/24 14:00 10/13/24 13:10 Gabapentin 100 Mg Capsule PO 100 mg Q8HR CARIDAD Administration Heparin Sodium (Porcine) 5,000 units 10/10/24 09:00 10/13/24 09:05 Heparin Sodium 5,000 Units/Ml Vial SUB-Q 5,000 units Q12HR CARIDAD Administration Melatonin 20 mg 10/09/24 21:44 10/12/24 21:18 Melatonin 5 Mg Tablet PO 20 mg HS PRN Administration Insomnia Metoprolol Tartrate 12.5 mg 10/11/24 09:00 10/13/24 09:02 Metoprolol Tartrate 12.5 Mg Tablet PO 12.5 mg Q12HR CARIDAD Administration Miscellaneous Information 0 each 10/09/24 22:05 10/11/24 02:47 Ferric Citrate [Auryxia] 210 Mg Iron Tablet- Nonformulary. Please Obtain A Home Supply If XX 11/08/24 22:04 Not Given CLARIFY [facility] Multivitamins Therapeutic 1 tablet 10/10/24 09:00 10/13/24 09:02 Multivitamins Therapeutic Tab (*Bkc) PO 1 tablet DAILY CARIDAD Administration Non-Formulary Medication 210 mg 10/10/24 08:00 Ferric Citrate [Auryxia] PO 11/09/24 07:59 TIDWM [facility] Nortriptyline HCl 50 mg 10/09/24 22:00 10/12/24 21:19 Nortriptyline Hcl 25 Mg Capsule PO 50 mg HS CARIDAD Administration Pantoprazole Sodium 40 mg 10/10/24 09:00 10/13/24 09:04 Pantoprazole 40 Mg Tablet PO 40 mg QAM CARIDAD Administration Radiology Results: ITS Impressions Chest X-Ray 10/09/24 15:22 IMPRESSION: No focal infiltrate or effusion. Labs Labs: Laboratory Results - last 24 hr 10/13/24 05:35 WBC 9.0 RBC 3.31 L Hgb 10.2 L Hct 32.1 L MCV 97.0 MCH 30.8 MCHC 31.8 L RDW 12.7 Plt Count 338 MPV 8.6 Sodium 129 L Potassium 3.5 Chloride 97 L Carbon Dioxide 23 Anion Gap 9 BUN 40 H Creatinine 11.91 H Estim Creat Clear Calc 8 Estimated GFR 4 L Glucose 87 Calcium 7.8 L Phosphorus 5.0 H Magnesium 1.7 Albumin 2.9 L Quality VTE Prophylaxis VTE prophylaxis: pharmacologic ordered (Heparin 5000 units subQ q.12 hours.)
[2024-10-13] MEDS: MELATONIN 5 MG TABLET 20 MG PO (21:03)
[2024-10-13] MEDS: NORTRIPTYLINE HCL 25 MG CAPSULE 50 MG PO (21:03)
[2024-10-14] VITALS (14 sets, daily range): BP systolic 123–188; BP diastolic 74–117; PULSE 77–95; RESP 18; TEMP 36.2–36.5; O2SAT 97–100
[2024-10-14 05:42] LABS: Hematocrit 34.4 % (42.0-52.0); Hemoglobin 11.1 g/dL (14.0-18.0); Mean Corpuscular HGB Conc 32.3 g/dl (32-36); Mean Corpuscular Hemoglobin 31.4 pg (26-34); Mean Corpuscular Volume 97.2 fl (80-100); Platelet Count Result 317 k/mm3 (150-375); Red Blood Count 3.54 M/mm3 (4.6-6.20); White Blood Count 9.2 K/mm3 (4.5-10.0)
[2024-10-14] MEDS: GABAPENTIN 100 MG CAPSULE PO ×3 (05:52→21:16)
[2024-10-14 06:05] LABS: Albumin Level 3.3 g/dL (3.5-5.1); Anion Gap 10 mmol/L (4-12); Blood Urea Nitrogen 43 mg/dL (9-20); Calcium 7.8 mg/dL (8.4-10.2); Carbon Dioxide 23 mmol/L (22-30); Chloride 94 mmol/L (98-107); Estimated CRCL calculation 8 ml/min; Estimated Glomerular Filt Rate 4; Glucose 88 mg/dL (65-110); Magnesium 1.7 mg/dL (1.6-2.3); Potassium 3.3 mmol/L (3.4-5.0); Sodium 127 mmol/L (137-145)
--- NOTE | 2024-10-14 08:54 | PM.IMPN ---
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 Coreg (2) Autonomic dysfunction: Code(s): G90.9 - Disorder of the autonomic nervous system, unspecified Status: Acute (3) Elevated troponin: Code(s): R79.89 - Other specified abnormal findings of blood chemistry Status: Acute Assessment and Plan: Demand ischemia (4) Acute hypokalemia: Code(s): E87.6 - Hypokalemia Status: Acute Assessment and Plan: Repeat as needed (5) Peripheral neuropathy: Qualifiers: Peripheral neuropathy type: polyneuropathy, unspecified Qualified Code(s): G62.9 - Polyneuropathy, unspecified Code(s): G62.9 - Polyneuropathy, unspecified Status: Chronic (6) End-stage renal disease on peritoneal dialysis: Code(s): N18.6 - End stage renal disease; Z99.2 - Dependence on renal dialysis Status: Acute Assessment and Plan: peritoneal Renal dialysis Plan Patient presents with recurrent hypotension. Patient's hypotension is likely multifactorial due to a combination of the patient's antihypertensive medications which have been adjusted during his last hospitalization but had been placed back on previous dosing instead of the adjusted medications and exacerbated by patient's underlying orthostatic hypotension due to autonomic dysfunction from polyneuropathy. Patient's blood pressures improved with IV fluid administration and remained stable although still having orthostatic changes. Cardiology on board. Will avoid avoid giving the patient too much fluid given his history of diastolic dysfunction and dependence on peritoneal dialysis. Patient may benefit from Bright hose while up and ambulating. Will discuss this as an option with the patient. At this time will place patient back on his home Coreg and will hold the patient's home Lasix. Will hold off on giving the patient any further fluid boluses. And monitor strict I&O's. Patient did have minimally elevated troponins likely due to demand ischemia from hypotension and sinus tachycardia resulting in mild demand ischemia in the setting of end-stage renal disease. Patient does have sinus tachycardia and temperatures are elevated to 99.8. The patient may have underlying infection. Blood cultures were obtained in the ER. Chest x-ray was negative for acute process. Will send peritoneal fluid for Gram stain and culture. Will hold off on starting antibiotics until re-evaluation of clinical status and repeat CBC has been ordered for a.m.. Patient does have some mild hypokalemia in the setting of end-stage renal disease on peritoneal dialysis. Nephrology has been consulted for peritoneal dialysis management. Will repeat electrolyte panel in a.m.. patient is seen by adhesive sprayer suspect dizziness and hypotension is due to over dialyzed with PD, patient was gently hydrated in the ER and did help patient symptoms. Pt feels little better but still weak and tired, does not want to be discharged today, as patient is discharged by the adhesive sprayer, will monitor, patient is seen by food and nutrition supervisor will monitor. Patient has elevated blood pressure reading. Added labetalol 10 mg IV p.r.n. blood pressure greater than 160/90. Subjective Date/time seen: 10/14/24 08:54 Interval history: No acute events. Patient has elevated blood pressure reading. Added labetalol 10 mg IV p.r.n. blood pressure greater than 160/90. Ordered orthostatic Review of Systems Review of Systems: As per HPI. Exam Narrative: Patient is comfortable, NAD HEENT: eyes are clear and none icteric LUNGS:CTA HEART: RR S1S2 ABD: BS+, Soft and nontender Lower extremities: no edema SKIN: nonjaundiced Neuro: grossly intact. Const: Other: No acute distress, appears older than stated age, obese HENMT: Other: Mucous membranes are tacky, crowded posterior oropharynx, edentulous in upper and lower jaw Eyes: Other: Pupils are equal and reactive, no scleral icterus Neck: Other: No JVD, no lymphadenopathy, large neck circumference Resp: Other: Clear to auscultation bilaterally, no increased work of breathing Cardio: Other: Sinus tachycardia, 2+ bilateral radial and pedal pulses, no murmur GI: Other: Soft, nondistended, nontender, normoactive bowel sounds, peritoneal dialysis catheter present without any surrounding erythema Skin: Other: Slightly jaundiced tone but no scleral icterus, Neuro: Other: Alert oriented x4, speech is clear, no facial asymmetry, no localizing neurologic deficits noted during the course of conversation Extrem: Other: No clubbing, cyanosis or edema Psych: Other: Appropriate mood and affect, pleasant and cooperative Objective Data Vital Signs Vital Signs: Vital Signs - 24 hr 10/13/24 09:00 10/13/24 09:00 10/13/24 09:02 Temperature Pulse Rate 91 103 H Respiratory Rate Blood Pressure Pulse Oximetry 100 Oxygen Delivery Room Air 10/13/24 12:00 10/13/24 14:00 10/13/24 16:00 Temperature 96.7 F L Pulse Rate 78 89 86 Respiratory Rate 16 Blood Pressure 151/104 H Pulse Oximetry 99 Oxygen Delivery 10/13/24 20:00 10/13/24 20:00 10/13/24 20:59 Temperature 97.9 F Pulse Rate 88 91 Respiratory Rate 18 Blood Pressure 165/106 H Pulse Oximetry 100 Oxygen Delivery Room Air 10/13/24 21:00 10/13/24 21:02 10/13/24 21:04 Temperature Pulse Rate 99 91 Respiratory Rate Blood Pressure 142/105 H 124/85 Pulse Oximetry Oxygen Delivery 10/14/24 00:00 10/14/24 04:00 10/14/24 05:54 Temperature 97.1 F L Pulse Rate 85 77 87 Respiratory Rate 18 Blood Pressure 160/87 H Pulse Oximetry 97 Oxygen Delivery Intake/Output Intake/Output: Intake & Output 10/11/24 10/12/24 10/13/24 10/14/24 23:59 23:59 23:59 23:59 Intake Total 1234 2360 2129 250 Output Total 1320 1367 453 4632 Balance -86 738 1866 -1448 Meds/Results Medications: Active Medications Generic Name Dose Route Start Last Admin Trade Name Freq PRN Reason Stop Dose Admin Hydrocodone Bitart/Acetaminophen 1 tab 10/09/24 21:44 10/13/24 21:03 Hydrocodone/Acetaminophen (*Crx) 5-325 Mg Tablet PO 1 tab Q8H PRN Administration Pain Rated 4-10 Buspirone HCl 10 mg 10/10/24 14:00 10/14/24 05:52 Buspirone Hcl 10 Mg Tablet PO 10 mg Q8HR CARIDAD Administration Calcium Acetate 2,668 mg 10/09/24 21:45 10/13/24 17:06 Calcium Acetate 667 Mg Tablet PO 2,668 mg TIDWM CARIDAD Administration Calcium Carbonate 200 mg 10/09/24 21:44 Calcium Carbonate (Tums) 500 Mg (200 Mg Elemental) PO HS PRN Indigestion Cinacalcet 90 mg 10/10/24 08:00 10/13/24 09:02 Cinacalcet 30 Mg Tablet PO 90 mg DAILY@0800 CARIDAD Administration Diphenoxylate HCl/Atropine 1 tablet 10/09/24 21:44 10/12/24 14:06 Diphenoxylate/Atropine (*Crx) 2.5 Mg Tablet PO 1 tablet QID PRN Administration diarrhea Escitalopram Oxalate 10 mg 10/10/24 09:00 10/13/24 09:08 Escitalopram Oxalate 10 Mg Tablet PO 10 mg DAILY CARIDAD Administration Gabapentin 100 mg 10/10/24 14:00 10/14/24 05:52 Gabapentin 100 Mg Capsule PO 100 mg Q8HR CARIDAD Administration Heparin Sodium (Porcine) 5,000 units 10/10/24 09:00 10/13/24 21:04 Heparin Sodium 5,000 Units/Ml Vial SUB-Q 5,000 units Q12HR CARIDAD Administration Melatonin 20 mg 10/09/24 21:44 10/13/24 21:03 Melatonin 5 Mg Tablet PO 20 mg HS PRN Administration Insomnia Metoprolol Tartrate 12.5 mg 10/11/24 09:00 10/13/24 21:02 Metoprolol Tartrate 12.5 Mg Tablet PO 12.5 mg Q12HR CARIDAD Administration Miscellaneous Information 0 each 10/09/24 22:05 10/11/24 02:47 Ferric Citrate [Auryxia] 210 Mg Iron Tablet- Nonformulary. Please Obtain A Home Supply If XX 11/08/24 22:04 Not Given CLARIFY [facility] Multivitamins Therapeutic 1 tablet 10/10/24 09:00 10/13/24 09:02 Multivitamins Therapeutic Tab (*Bkc) PO 1 tablet DAILY CARIDAD Administration Non-Formulary Medication 210 mg 10/10/24 08:00 Ferric Citrate [Auryxia] PO 11/09/24 07:59 TIDWM [facility] Nortriptyline HCl 50 mg 10/09/24 22:00 10/13/24 21:03 Nortriptyline Hcl 25 Mg Capsule PO 50 mg HS CARIDAD Administration Pantoprazole Sodium 40 mg 10/10/24 09:00 10/13/24 09:04 Pantoprazole 40 Mg Tablet PO 40 mg QAM CARIDAD Administration Radiology Results: ITS Impressions Chest X-Ray 10/09/24 15:22 IMPRESSION: No focal infiltrate or effusion. Labs Labs: Laboratory Results - last 24 hr 10/14/24 05:37 WBC 9.2 RBC 3.54 L Hgb 11.1 L Hct 34.4 L MCV 97.2 MCH 31.4 MCHC 32.3 RDW 12.5 Plt Count 317 MPV 8.6 Sodium 127 L Potassium 3.3 L Chloride 94 L Carbon Dioxide 23 Anion Gap 10 BUN 43 H Creatinine 12.21 H Estim Creat Clear Calc 8 Estimated GFR 4 L Glucose 88 Calcium 7.8 L Phosphorus 5.3 H Magnesium 1.7 Albumin 3.3 L Quality VTE Prophylaxis VTE prophylaxis: pharmacologic ordered (Heparin 5000 units subQ q.12 hours.) Hospitalist [facility] Advance Care Plan I have confirmed that the patient's Advanced Care Plan is present, code status is documented, or surrogate decision maker is listed in patient medical record.: Yes Medication Reconciliation I have utilized all available resources to obtain, update and review the patients current medications (includes all prescriptions, OTC, herbals, cannabis, and nutritional supplements).: Yes
[2024-10-14] MEDS: CALCIUM ACETATE 667 MG TABLET 2668 MG PO ×3 (09:17→17:36)
[2024-10-14] MEDS: METOPROLOL TARTRATE 12.5 MG TABLET PO ×2 (09:18→21:16)
[2024-10-14] MEDS: CINACALCET 30 MG TABLET 90 MG PO (09:18)
[2024-10-14] MEDS: POTASSIUM CHLORIDE 20 MEQ ER TABLET 40 MEQ PO (09:18)
[2024-10-14] MEDS: MULTIVITAMINS THERAPEUTIC TAB (*BKC) 1 TABLET PO (09:19)
[2024-10-14] MEDS: ESCITALOPRAM OXALATE 10 MG TABLET PO (09:19)
[2024-10-14] MEDS: PANTOPRAZOLE 40 MG TABLET PO (09:19)
[2024-10-14] MEDS: HYDROcodone/acetaminophen (*CRX) 5-325 MG TABLET 1 TAB PO ×2 (09:35→21:15)
--- NOTE | 2024-10-14 13:48 | PM.PNNEP ---
Progress Note: A&P Assessment and Plan (1) End stage renal disease: Code(s): N18.6 - End stage renal disease Status: Chronic Assessment and Plan: continue CCPD while hospitalized continue current Rx (with adjustments as needed) follow trend of electrolytes, volume status, and clearance (2) Hypotension: Code(s): I95.9 - Hypotension, unspecified Status: Acute Assessment and Plan: resolved as noted on presentation responded well to IVFs in the ER possibly due to aggressive fluid removal/ultrafiltration with dialysis on recent hospitalization medication related(?) -- he is not entirely clear on what BP medications he was taking at home.... follow trend of hemodynamics (3) Anemia: Code(s): D64.9 - Anemia, unspecified Status: Acute Assessment and Plan: due to ESRD stable at this time resume Epogen when Hgb < 10 (4) Hyponatremia: Code(s): E87.1 - Hypo-osmolality and hyponatremia Status: Chronic Assessment and Plan: relatively stable (but fluctuates at baseline) due to fluctuations in volume status, water intake and renal failure follow trend (5) Congestive heart failure: Code(s): I50.9 - Heart failure, unspecified Status: Chronic Assessment and Plan: known history of systolic and diastolic dysfunction last Echo (July 2024) noted: left ventricular systolic function is normal, estimated at 55-60% left ventricular diastolic function is abnormal mitral valve has a moderately calcified annulus mild mitral valve regurgitation mild pulmonary hypertension, estimated pulmonary arterial systolic pressure is 45 mmHg trace pulmonic regurgitation overall heart function seems to be improved appears stable if not compensated (6) HTN (hypertension): Code(s): I10 - Essential (primary) hypertension Status: Chronic Assessment and Plan: despite known history, low BP on presentation BP medications with parameters follow trend of hemodynamics (7) Neuropathy: Code(s): G62.9 - Polyneuropathy, unspecified Status: Acute Assessment and Plan: known diagnosis etiology not entirely clear follows with Neurology as an outpatient (8) Generalized weakness: Code(s): R53.1 - Weakness Status: Resolved Assessment and Plan: related to low BP and possible deconditioning from recent hospitalizations PT/OT as tolerated Will continue to follow. Subjective Date/time seen: 10/14/24 13:48 Interval history: Follow-up for end stage renal disease on peritoneal dialysis. Appears to be feeling reasonably well; BP appears to be running on the higher side now in comparison to hypotension on presentation/admission; no issues with PD treatments overnight; no apparent distress noted. Exam Narrative: General: WD/WN male in NAD Heart: normal S1 and S2; no rub Lungs: clear anteriorly; decreased at bases Abdomen: soft, nontender, nondistended, positive bowel sounds Extremities: no cyanosis or clubbing; trace edema Skin: no nodules Objective Data Vital Signs Vital Signs: Vital Signs Temp Pulse Resp BP Pulse Ox O2 Del Method 10/14/24 12:00 78 10/14/24 09:30 90 168/96 H 10/14/24 09:18 95 10/14/24 08:35 82 10/14/24 08:35 97 Room Air 10/14/24 08:35 168/96 H 97 10/14/24 05:54 97.1 F L 87 18 160/87 H 97 10/14/24 04:00 77 10/14/24 00:00 85 10/13/24 21:04 124/85 10/13/24 21:02 91 10/13/24 21:00 99 142/105 H 10/13/24 20:59 97.9 F 91 18 165/106 H 100 10/13/24 20:00 88 10/13/24 20:00 Room Air Intake/Output Intake/Output: Intake & Output 10/11/24 10/12/24 10/13/24 10/14/24 23:59 23:59 23:59 23:59 Intake Total 1234 2360 2129 812 Output Total 1320 1121 826 0157 Balance -86 738 1866 -886 Meds/Results Medications: Active Medications Generic Name Dose Route Start Last Admin Trade Name Freq PRN Reason Stop Dose Admin Hydrocodone Bitart/Acetaminophen 1 tab 10/09/24 21:44 10/14/24 09:35 Hydrocodone/Acetaminophen (*Crx) 5-325 Mg Tablet PO 1 tab Q8H PRN Administration Pain Rated 4-10 Buspirone HCl 10 mg 10/10/24 14:00 10/14/24 13:04 Buspirone Hcl 10 Mg Tablet PO 10 mg Q8HR CARIDAD Administration Calcium Acetate 2,668 mg 10/09/24 21:45 10/14/24 17:36 Calcium Acetate 667 Mg Tablet PO 2,668 mg TIDWM CARIDAD Administration Calcium Carbonate 200 mg 10/09/24 21:44 Calcium Carbonate (Tums) 500 Mg (200 Mg Elemental) PO HS PRN Indigestion Cinacalcet 90 mg 10/10/24 08:00 10/14/24 09:18 Cinacalcet 30 Mg Tablet PO 90 mg DAILY@0800 CARIDAD Administration Diphenoxylate HCl/Atropine 1 tablet 10/09/24 21:44 10/12/24 14:06 Diphenoxylate/Atropine (*Crx) 2.5 Mg Tablet PO 1 tablet QID PRN Administration diarrhea Escitalopram Oxalate 10 mg 10/10/24 09:00 10/14/24 09:19 Escitalopram Oxalate 10 Mg Tablet PO 10 mg DAILY CARIDAD Administration Gabapentin 100 mg 10/10/24 14:00 10/14/24 13:04 Gabapentin 100 Mg Capsule PO 100 mg Q8HR CARIDAD Administration Heparin Sodium (Porcine) 5,000 units 10/10/24 09:00 10/14/24 09:20 Heparin Sodium 5,000 Units/Ml Vial SUB-Q 5,000 units Q12HR CARIDAD Administration Labetalol HCl 10 mg 10/14/24 11:44 Labetalol Hcl Inj 100 Mg/20 Ml Vial IV PUSH Q6H PRN BP over 160/90 Melatonin 20 mg 10/09/24 21:44 10/13/24 21:03 Melatonin 5 Mg Tablet PO 20 mg HS PRN Administration Insomnia Metoprolol Tartrate 12.5 mg 10/11/24 09:00 10/14/24 09:18 Metoprolol Tartrate 12.5 Mg Tablet PO 12.5 mg Q12HR CARIDAD Administration Miscellaneous Information 0 each 10/09/24 22:05 10/11/24 02:47 Ferric Citrate [Auryxia] 210 Mg Iron Tablet- Nonformulary. Please Obtain A Home Supply If XX 11/08/24 22:04 Not Given CLARIFY COUNTS INCLUDE 234 BEDS AT THE [facility] Multivitamins Therapeutic 1 tablet 10/10/24 09:00 10/14/24 09:19 Multivitamins Therapeutic Tab (*Bkc) PO 1 tablet DAILY COUNTS INCLUDE 234 BEDS AT THE [facility] Administration Non-Formulary Medication 210 mg 10/10/24 08:00 Ferric Citrate [Auryxia] PO 11/09/24 07:59 TIDWM COUNTS INCLUDE 234 BEDS AT THE [facility] Nortriptyline HCl 50 mg 10/09/24 22:00 10/13/24 21:03 Nortriptyline Hcl 25 Mg Capsule PO 50 mg HS CARIDAD Administration Pantoprazole Sodium 40 mg 10/10/24 09:00 10/14/24 09:19 Pantoprazole 40 Mg Tablet PO 40 mg QAM CARIDAD Administration Radiology Results: ITS Impressions Chest X-Ray 10/09/24 15:22 IMPRESSION: No focal infiltrate or effusion. Labs Labs: Laboratory Tests 10/14/24 05:37 10/14/24 05:37 Calcium 7.8 L Phosphorus 5.3 H Magnesium 1.7 Albumin 3.3 L
[2024-10-14] MEDS: POTASSIUM CHLORIDE 20 MEQ ER TABLET PO (21:14)
[2024-10-14] MEDS: MELATONIN 5 MG TABLET 20 MG PO (21:15)
[2024-10-14] MEDS: NORTRIPTYLINE HCL 25 MG CAPSULE 50 MG PO (21:16)
[2024-10-15] VITALS (21 sets, daily range): BP systolic 117–188; BP diastolic 69–129; PULSE 63–101; RESP 16–20; TEMP 36.1–36.6; O2SAT 97–100
[2024-10-15] MEDS: GABAPENTIN 100 MG CAPSULE PO ×3 (04:50→20:38)
[2024-10-15 05:02] LABS: Hematocrit 31.4 % (42.0-52.0); Hemoglobin 10.1 g/dL (14.0-18.0); Mean Corpuscular HGB Conc 32.2 g/dl (32-36); Mean Corpuscular Hemoglobin 30.8 pg (26-34); Mean Corpuscular Volume 95.7 fl (80-100); Platelet Count Result 309 k/mm3 (150-375); Red Blood Count 3.28 M/mm3 (4.6-6.20); White Blood Count 9.2 K/mm3 (4.5-10.0)
[2024-10-15 05:26] LABS: Alanine Aminotransferase 21 U/L (6-50); Albumin Level 2.9 g/dL (3.5-5.1); Alkaline Phosphatase 149 U/L (38-126); Anion Gap 10 mmol/L (4-12); Aspartate Amino Transferase 29 U/L (17-59); Bilirubin,Total 0.3 mg/dL (0.2-1.3); Blood Urea Nitrogen 42 mg/dL (9-20); Calcium 7.8 mg/dL (8.4-10.2); Carbon Dioxide 24 mmol/L (22-30); Chloride 94 mmol/L (98-107); Estimated CRCL calculation 8 ml/min; Estimated Glomerular Filt Rate 4; Glucose 109 mg/dL (65-110); Magnesium 1.6 mg/dL (1.6-2.3); Potassium 3.3 mmol/L (3.4-5.0); Sodium 128 mmol/L (137-145); Total Protein 5.3 g/dL (6.3-8.2)
[2024-10-15] MEDS: CINACALCET 30 MG TABLET 90 MG PO (08:54)
[2024-10-15] MEDS: CALCIUM ACETATE 667 MG TABLET 2668 MG PO ×3 (08:55→17:23)
[2024-10-15] MEDS: METOPROLOL TARTRATE 12.5 MG TABLET PO ×2 (08:55→20:38)
[2024-10-15] MEDS: MULTIVITAMINS THERAPEUTIC TAB (*BKC) 1 TABLET PO (08:55)
[2024-10-15] MEDS: PANTOPRAZOLE 40 MG TABLET PO (08:55)
[2024-10-15] MEDS: ESCITALOPRAM OXALATE 10 MG TABLET PO (08:55)
--- NOTE | 2024-10-15 11:22 | P.PNNP_ITS ---
Progress Note: A&P Assessment and Plan (1) End stage renal disease: Code(s): N18.6 - End stage renal disease Status: Chronic Assessment and Plan: * continue CCPD while hospitalized * continue current Rx (with adjustments as needed) * follow trend of electrolytes, volume status, and clearance (2) Hypotension: Code(s): I95.9 - Hypotension, unspecified Status: Acute Assessment and Plan: * resolved * as noted on presentation * responded well to IVFs in the ER * possibly due to aggressive fluid removal/ultrafiltration with dialysis on recent hospitalization * medication related(?) -- he is not entirely clear on what BP medications he was taking at home.... * follow trend of hemodynamics (3) Anemia: Code(s): D64.9 - Anemia, unspecified Status: Acute Assessment and Plan: * due to ESRD * stable at this time * resume Epogen when Hgb < 10 (4) Hyponatremia: Code(s): E87.1 - Hypo-osmolality and hyponatremia Status: Chronic Assessment and Plan: * relatively stable (but fluctuates at baseline) * due to fluctuations in volume status, water intake and renal failure * follow trend (5) Congestive heart failure: Code(s): I50.9 - Heart failure, unspecified Status: Chronic Assessment and Plan: * known history of systolic and diastolic dysfunction * last Echo (July 2024) noted: * left ventricular systolic function is normal, estimated at 55-60% * left ventricular diastolic function is abnormal * mitral valve has a moderately calcified annulus * mild mitral valve regurgitation * mild pulmonary hypertension, estimated pulmonary arterial systolic pressure is 45 mmHg * trace pulmonic regurgitation * overall heart function seems to be improved * appears stable if not compensated (6) HTN (hypertension): Code(s): I10 - Essential (primary) hypertension Status: Chronic Assessment and Plan: * despite known history, low BP on presentation * BP medications with parameters * follow trend of hemodynamics (7) Neuropathy: Code(s): G62.9 - Polyneuropathy, unspecified Status: Acute Assessment and Plan: * known diagnosis * etiology not entirely clear * follows with Neurology as an outpatient (8) Generalized weakness: Code(s): R53.1 - Weakness Status: Resolved Assessment and Plan: * related to low BP and possible deconditioning from recent hospitalizations * PT/OT as tolerated Will continue to follow. L Subjective Date/time seen: 10/15/24 11:22 Interval history: Follow-up for end stage renal disease on peritoneal dialysis. Tolerated peritoneal dialysis treatment overnight without any issues or problems ([facility]PD supervised and seen at 11:15am); blood pressure fluctuating but no evidence of significant hypotension in the last 24 - 48 hours; no apparent distress voiced at this time other than fatigue. Exam 2 Narrative: General: WD/WN male in NAD Heart: normal S1 and S2; no rub Lungs: clear anteriorly; decreased at bases Abdomen: soft, nontender, nondistended, positive bowel sounds Extremities: no cyanosis or clubbing; trace edema Skin: warm and dry Objective Data Vital Signs Vital Signs: Vital Signs Temp Pulse Resp BP Pulse Ox O2 Del Method O2 Flow Rate 10/15/24 08:55 86 10/15/24 08:49 97.6 F 82 16 129/86 0 10/15/24 04:50 97.6 F 82 16 129/86 98 10/15/24 04:00 73 10/15/24 01:54 117/69 10/15/24 00:30 82 10/15/24 00:00 82 10/14/24 21:16 90 10/14/24 21:11 91 156/111 H 10/14/24 21:07 97.7 F 90 18 188/117 H 100 10/14/24 20:46 100 Room Air 10/14/24 20:00 92 10/14/24 20:00 Room Air 10/14/24 16:00 90 10/14/24 14:00 97.3 F L 87 18 123/74 98 Intake/Output Intake/Output: Intake & Output 10/12/24 10/13/24 10/14/24 10/15/24 23:59 23:59 23:59 23:59 Intake Total 2360 2129 812 400 Output Total 5525 040 8858 644 Balance 735 5957 -815 -827 Meds/Results Medications: Active Medications Generic Name Dose Route Start Last Admin Trade Name Freq PRN Reason Stop Dose Admin Hydrocodone Bitart/Acetaminophen 1 tab 10/09/24 21:44 10/14/24 21:15 Hydrocodone/Acetaminophen (*Crx) 5-325 Mg Tablet PO 1 tab Q8H PRN Administration Pain Rated 4-10 Buspirone HCl 10 mg 10/10/24 14:00 10/15/24 04:50 Buspirone Hcl 10 Mg Tablet PO 10 mg Q8HR CARIDAD Administration Calcium Acetate 2,668 mg 10/09/24 21:45 10/15/24 12:32 Calcium Acetate 667 Mg Tablet PO 2,668 mg TIDWM CARIDAD Administration Calcium Carbonate 200 mg 10/09/24 21:44 Calcium Carbonate (Tums) 500 Mg (200 Mg Elemental) PO HS PRN Indigestion Cinacalcet 90 mg 10/10/24 08:00 10/15/24 08:54 Cinacalcet 30 Mg Tablet PO 90 mg DAILY@0800 [facility] Administration Diphenoxylate HCl/Atropine 1 tablet 10/09/24 21:44 10/12/24 14:06 Diphenoxylate/Atropine (*Crx) 2.5 Mg Tablet PO 1 tablet QID PRN Administration diarrhea Escitalopram Oxalate 10 mg 10/10/24 09:00 10/15/24 08:55 Escitalopram Oxalate 10 Mg Tablet PO 10 mg DAILY CARIDAD Administration Gabapentin 100 mg 10/10/24 14:00 10/15/24 04:50 Gabapentin 100 Mg Capsule PO 100 mg Q8HR CARIDAD Administration Heparin Sodium (Porcine) 5,000 units 10/10/24 09:00 10/15/24 08:56 Heparin Sodium 5,000 Units/Ml Vial SUB-Q 5,000 units Q12HR CARIDAD Administration Labetalol HCl 10 mg 10/14/24 11:44 10/15/24 00:30 Labetalol Hcl Inj 100 Mg/20 Ml Vial IV PUSH 10 mg Q6H PRN Administration BP over 160/90 Melatonin 20 mg 10/09/24 21:44 10/14/24 21:15 Melatonin 5 Mg Tablet PO 20 mg HS PRN Administration Insomnia Metoprolol Tartrate 12.5 mg 10/11/24 09:00 10/15/24 08:55 Metoprolol Tartrate 12.5 Mg Tablet PO 12.5 mg Q12HR CARIDAD Administration Miscellaneous Information 0 each 10/09/24 22:05 10/11/24 02:47 Ferric Citrate [Auryxia] 210 Mg Iron Tablet- Nonformulary. Please Obtain A Home Supply If XX 11/08/24 22:04 Not Given CLARIFY [facility] Multivitamins Therapeutic 1 tablet 10/10/24 09:00 10/15/24 08:55 Multivitamins Therapeutic Tab (*Bkc) PO 1 tablet DAILY CARIDAD Administration Non-Formulary Medication 210 mg 10/10/24 08:00 Ferric Citrate [Auryxia] PO 11/09/24 07:59 TIDWM CARIDAD Nortriptyline HCl 50 mg 10/09/24 22:00 10/14/24 21:16 Nortriptyline Hcl 25 Mg Capsule PO 50 mg HS CARIDAD Administration Pantoprazole Sodium 40 mg 10/10/24 09:00 10/15/24 08:55 Pantoprazole 40 Mg Tablet PO 40 mg QAM CARIDAD Administration Radiology Results: ITS Impressions Chest X-Ray 10/09/24 15:22 IMPRESSION: No focal infiltrate or effusion. Labs Labs: Laboratory Tests 10/15/24 04:48 10/15/24 04:48 Calcium 7.8 L Phosphorus 4.8 H Magnesium 1.6 Total Bilirubin 0.3 AST 29 ALT 21 Alkaline Phosphatase 149 H Total Protein 5.3 L Albumin 2.9 L
[2024-10-15] MEDS: POTASSIUM CHLORIDE 20 MEQ ER TABLET 40 MEQ PO (12:31)
[2024-10-15] MEDS: EPOETIN ALFA-EPBX 10,000 UNITS/ML VIAL 10000 UNITS SUB-Q (12:52)
--- NOTE | 2024-10-15 14:17 | P.PNIM_ITS ---
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 except Coreg (2) Autonomic dysfunction: Code(s): G90.9 - Disorder of the autonomic nervous system, unspecified Status: Acute (3) Elevated troponin: Code(s): R79.89 - Other specified abnormal findings of blood chemistry Status: Acute Assessment and Plan: Demand ischemia (4) Acute hypokalemia: Code(s): E87.6 - Hypokalemia Status: Acute Assessment and Plan: Repeat as needed (5) Peripheral neuropathy: Qualifiers: Peripheral neuropathy type: polyneuropathy, unspecified Qualified Code(s): G62.9 - Polyneuropathy, unspecified Code(s): G62.9 - Polyneuropathy, unspecified Status: Chronic (6) End-stage renal disease on peritoneal dialysis: Code(s): N18.6 - End stage renal disease; Z99.2 - Dependence on renal dialysis Status: Acute Assessment and Plan: peritoneal Renal dialysis Plan Patient presents with recurrent hypotension. Patient's hypotension is likely multifactorial due to a combination of the patient's antihypertensive medications which have been adjusted during his last hospitalization but had been placed back on previous dosing instead of the adjusted medications and exacerbated by patient's underlying orthostatic hypotension due to autonomic dysfunction from polyneuropathy. Patient's blood pressures improved with IV f luid administration and remained stable although still having orthostatic changes. Cardiology on board. Will avoid avoid giving the patient too much fluid given his history of diastolic dysfunction and dependence on peritoneal dialysis. Patient may benefit from Bright hose while up and ambulating. Will discuss this as an option with the patient. At this time will place patient back on his home Coreg and will hold the patient's home Lasix. Will hold off on giving the patient any further fluid boluses. And monitor strict I&O's. Patient did have minimally elevated troponins likely due to demand ischemia from hypotension and sinus tachycardia resulting in mild demand ischemia in the setting of end-stage renal disease. Patient does have sinus tachycardia and temperatures are elevated to 99.8. The patient may have underlying infection. Blood cultures were obtained in the ER. Chest x-ray was negative for acute process. Will send peritoneal fluid for Gram stain and culture. Will hold off on starting antibiotics until re-evaluation of clinical status and repeat CBC has been ordered for a.m.. Patient does have some mild hypokalemia in the setting of end-stage renal disease on peritoneal dialysis. Nephrology has been consulted for peritoneal dialysis management. Will repeat electrolyte panel in a.m.. patient is seen by science manager suspect dizziness and hypotension is due to over dialyzed with PD, patient was gently hydrated in the ER and did help patient symptoms. Pt feels little better but still weak and tired, does not want to be discharged today, as patient is discharged by the science manager, will monitor, patient is seen by animal feeder will monitor. Patient has elevated blood pressure reading. Added labetalol 10 mg IV p.r.n. blood pressure greater than 160/90. Subjective Date/time seen: 10/15/24 14:17 Interval history: Patient reports he is feeling tired and wants to be discharged tomorrow. In regards to blood pressure continue p.r.n. labetalol. Review of Systems Review of Systems: As per HPI. Exam Narrative: Patient is comfortable, NAD HEENT: eyes are clear and none icteric LUNGS:CTA HEART: RR S1S2 ABD: BS+, Soft and nontender Lower extremities: no edema SKIN: nonjaundiced Neuro: grossly intact. Const: Other: No acute distress, appears older than stated age, obese HENMT: Other: Mucous membranes are tacky, crowded posterior oropharynx, edentulous in upper and lower jaw Eyes: Other: Pupils are equal and reactive, no scleral icterus Neck: Other: No JVD, no lymphadenopathy, large neck circumference Resp: Other: Clear to auscultation bilaterally, no increased work of breathing Cardio: Other: Sinus tachycardia, 2+ bilateral radial and pedal pulses, no murmur GI: Other: Soft, nondistended, nontender, normoactive bowel sounds, peritoneal dialysis catheter present without any surrounding erythema Skin: Other: Slightly jaundiced tone but no scleral icterus, Neuro: Other: Alert oriented x4, speech is clear, no facial asymmetry, no localizing neurologic deficits noted during the course of conversation Extrem: Other: No clubbing, cyanosis or edema Psych: Other: Appropriate mood and affect, pleasant and cooperative Objective Data Vital Signs Vital Signs: Vital Signs - 24 hr 10/14/24 16:00 10/14/24 20:00 10/14/24 20:00 Temperature Pulse Rate 90 92 Respiratory Rate Blood Pressure Pulse Oximetry Oxygen Delivery Room Air Oxygen Flow Rate Fraction of Inspired Oxygen 10/14/24 20:46 10/14/24 21:07 10/14/24 21:11 Temperature 97.7 F Pulse Rate 90 91 Respiratory Rate 18 Blood Pressure 188/117 H 156/111 H Pulse Oximetry 100 100 Oxygen Delivery Room Air Oxygen Flow Rate Fraction of Inspired Oxygen 10/14/24 21:16 10/15/24 00:00 10/15/24 00:30 Temperature Pulse Rate 90 82 82 Respiratory Rate Blood Pressure Pulse Oximetry Oxygen Delivery Oxygen Flow Rate Fraction of Inspired Oxygen 10/15/24 01:54 10/15/24 04:00 10/15/24 04:50 Temperature 97.6 F Pulse Rate 73 82 Respiratory Rate 16 Blood Pressure 117/69 129/86 Pulse Oximetry 98 Oxygen Delivery Oxygen Flow Rate Fraction of Inspired Oxygen 10/15/24 08:49 10/15/24 08:55 Temperature 97.6 F Pulse Rate 82 86 Respiratory Rate 16 Blood Pressure 129/86 Pulse Oximetry Oxygen Delivery Oxygen Flow Rate 0 Fraction of Inspired Oxygen 0 Intake/Output Intake/Output: Intake & Output 10/12/24 10/13/24 10/14/24 10/15/24 23:59 23:59 23:59 23:59 Intake Total 2360 2129 812 760 Output Total 4743 225 1193 644 Balance 738 1866 -146 116 Meds/Results Medications: Active Medications Generic Name Dose Route Start Last Admin Trade Name Freq PRN Reason Stop Dose Admin Hydrocodone Bitart/Acetaminophen 1 tab 10/09/24 21:44 10/14/24 21:15 Hydrocodone/Acetaminophen (*Crx) 5-325 Mg Tablet PO 1 tab Q8H PRN Administration Pain Rated 4-10 Buspirone HCl 10 mg 10/10/24 14:00 10/15/24 13:51 Buspirone Hcl 10 Mg Tablet PO 10 mg Q8HR CARIDAD Administration Calcium Acetate 2,668 mg 10/09/24 21:45 10/15/24 12:32 Calcium Acetate 667 Mg Tablet PO 2,668 mg TIDWM CARIDAD Administration Calcium Carbonate 200 mg 10/09/24 21:44 Calcium Carbonate (Tums) 500 Mg (200 Mg Elemental) PO HS PRN Indigestion Cinacalcet 90 mg 10/10/24 08:00 10/15/24 08:54 Cinacalcet 30 Mg Tablet PO 90 mg DAILY@0800 CARIDAD Administration Diphenoxylate HCl/Atropine 1 tablet 10/09/24 21:44 10/12/24 14:06 Diphenoxylate/Atropine (*Crx) 2.5 Mg Tablet PO 1 tablet QID PRN Administration diarrhea Escitalopram Oxalate 10 mg 10/10/24 09:00 10/15/24 08:55 Escitalopram Oxalate 10 Mg Tablet PO 10 mg DAILY CARIDAD Administration Gabapentin 100 mg 10/10/24 14:00 10/15/24 13:51 Gabapentin 100 Mg Capsule PO 100 mg Q8HR CARIDAD Administration Heparin Sodium (Porcine) 5,000 units 10/10/24 09:00 10/15/24 08:56 Heparin Sodium 5,000 Units/Ml Vial SUB-Q 5,000 units Q12HR CARIDAD Administration Labetalol HCl 10 mg 10/14/24 11:44 10/15/24 00:30 Labetalol Hcl Inj 100 Mg/20 Ml Vial IV PUSH 10 mg Q6H PRN Administration BP over 160/90 Melatonin 20 mg 10/09/24 21:44 10/14/24 21:15 Melatonin 5 Mg Tablet PO 20 mg HS PRN Administration Insomnia Metoprolol Tartrate 12.5 mg 10/11/24 09:00 10/15/24 08:55 Metoprolol Tartrate 12.5 Mg Tablet PO 12.5 mg Q12HR CARIDAD Administration Miscellaneous Information 0 each 10/09/24 22:05 10/11/24 02:47 Ferric Citrate [Auryxia] 210 Mg Iron Tablet- Nonformulary. Please Obtain A Home Supply If XX 11/08/24 22:04 Not Given [facility] Multivitamins Therapeutic 1 tablet 10/10/24 09:00 10/15/24 08:55 Multivitamins Therapeutic Tab (*Bkc) PO 1 tablet DAILY CARIDAD Administration Non-Formulary Medication 210 mg 10/10/24 08:00 Ferric Citrate [Auryxia] PO 11/09/24 07:59 TIDWM CARIDAD Nortriptyline HCl 50 mg 10/09/24 22:00 10/14/24 21:16 Nortriptyline Hcl 25 Mg Capsule PO 50 mg HS CARIDAD Administration Pantoprazole Sodium 40 mg 10/10/24 09:00 10/15/24 08:55 Pantoprazole 40 Mg Tablet PO 40 mg QAM CARIDAD Administration Radiology Results: ITS Impressions Chest X-Ray 10/09/24 15:22 IMPRESSION: No focal infiltrate or effusion. Labs Labs: Laboratory Results - last 24 hr 10/15/24 04:48 WBC 9.2 RBC 3.28 L Hgb 10.1 L Hct 31.4 L MCV 95.7 MCH 30.8 MCHC 32.2 RDW 12.7 Plt Count 309 MPV 8.5 Sodium 128 L Potassium 3.3 L Chloride 94 L Carbon Dioxide 24 Anion Gap 10 BUN 42 H Creatinine 12.24 H Estim Creat Clear Calc 8 Estimated GFR 4 L Glucose 109 Calcium 7.8 L Phosphorus 4.8 H Magnesium 1.6 Total Bilirubin 0.3 AST 29 ALT 21 Alkaline Phosphatase 149 H Total Protein 5.3 L Albumin 2.9 L Quality VTE Prophylaxis VTE prophylaxis: pharmacologic ordered (Heparin 5000 units subQ q.12 hours.)
[2024-10-15] MEDS: NORTRIPTYLINE HCL 25 MG CAPSULE 50 MG PO (20:37)
[2024-10-15] MEDS: HYDROcodone/acetaminophen (*CRX) 5-325 MG TABLET 1 TAB PO (20:40)
[2024-10-15] MEDS: MELATONIN 5 MG TABLET 20 MG PO (20:40)
[2024-10-16] VITALS (17 sets, daily range): BP systolic 132–170; BP diastolic 89–109; PULSE 79–102; RESP 16–20; TEMP 36.2–36.8; O2SAT 95–100
[2024-10-16 05:19] LABS: Hematocrit 32.5 % (42.0-52.0); Hemoglobin 10.6 g/dL (14.0-18.0); Mean Corpuscular HGB Conc 32.6 g/dl (32-36); Mean Corpuscular Hemoglobin 31.5 pg (26-34); Mean Corpuscular Volume 96.7 fl (80-100); Platelet Count Result 316 k/mm3 (150-375); Red Blood Count 3.36 M/mm3 (4.6-6.20); White Blood Count 8.2 K/mm3 (4.5-10.0)
[2024-10-16] MEDS: GABAPENTIN 100 MG CAPSULE PO ×3 (05:24→20:43)
[2024-10-16 05:36] LABS: Alanine Aminotransferase 20 U/L (6-50); Albumin Level 3.0 g/dL (3.5-5.1); Alkaline Phosphatase 145 U/L (38-126); Anion Gap 9 mmol/L (4-12); Aspartate Amino Transferase 24 U/L (17-59); Bilirubin,Total 0.3 mg/dL (0.2-1.3); Blood Urea Nitrogen 44 mg/dL (9-20); Calcium 8.0 mg/dL (8.4-10.2); Carbon Dioxide 25 mmol/L (22-30); Chloride 95 mmol/L (98-107); Estimated CRCL calculation 8 ml/min; Estimated Glomerular Filt Rate 4; Glucose 102 mg/dL (65-110); Magnesium 1.6 mg/dL (1.6-2.3); Potassium 3.6 mmol/L (3.4-5.0); Sodium 129 mmol/L (137-145); Total Protein 5.5 g/dL (6.3-8.2)
[2024-10-16 05:59] LABS: Hepatitis B Surface Antigen Negative (Negative)
[2024-10-16] MEDS: CINACALCET 30 MG TABLET 90 MG PO (10:18)
[2024-10-16] MEDS: MULTIVITAMINS THERAPEUTIC TAB (*BKC) 1 TABLET PO (10:19)
[2024-10-16] MEDS: METOPROLOL TARTRATE 12.5 MG TABLET PO ×2 (10:19→20:38)
[2024-10-16] MEDS: ESCITALOPRAM OXALATE 10 MG TABLET PO (10:20)
[2024-10-16] MEDS: CALCIUM ACETATE 667 MG TABLET 2668 MG PO ×3 (10:20→17:35)
[2024-10-16] MEDS: PANTOPRAZOLE 40 MG TABLET PO (10:20)
--- NOTE | 2024-10-16 10:30 | P.PNNP_ITS ---
Progress Note: A&P Assessment and Plan (1) End stage renal disease: Code(s): N18.6 - End stage renal disease Status: Chronic Assessment and Plan: * continue CCPD while hospitalized * continue current Rx (with adjustments as needed) * follow trend of electrolytes, volume status, and clearance (2) Hypotension: Code(s): I95.9 - Hypotension, unspecified Status: Acute Assessment and Plan: * resolved * as noted on presentation * responded well to IVFs in the ER * possibly due to aggressive fluid removal/ultrafiltration with dialysis on recent hospitalization * medication related(?) -- he is not entirely clear on what BP medications he was taking at home.... * follow trend of hemodynamics (3) Anemia: Code(s): D64.9 - Anemia, unspecified Status: Acute Assessment and Plan: * due to ESRD * stable at this time * resume Epogen when Hgb < 10 (4) Hyponatremia: Code(s): E87.1 - Hypo-osmolality and hyponatremia Status: Chronic Assessment and Plan: * relatively stable (but fluctuates at baseline) * due to fluctuations in volume status, water intake and renal failure * follow trend (5) Congestive heart failure: Code(s): I50.9 - Heart failure, unspecified Status: Chronic Assessment and Plan: * known history of systolic and diastolic dysfunction * last Echo (July 2024) noted: * left ventricular systolic function is normal, estimated at 55-60% * left ventricular diastolic function is abnormal * mitral valve has a moderately calcified annulus * mild mitral valve regurgitation * mild pulmonary hypertension, estimated pulmonary arterial systolic pressure is 45 mmHg * trace pulmonic regurgitation * overall heart function seems to be improved * appears stable if not compensated (6) HTN (hypertension): Code(s): I10 - Essential (primary) hypertension Status: Chronic Assessment and Plan: * despite known history, low BP on presentation * BP now rising * adjustment to BP medications ongoing * follow trend of hemodynamics (7) Neuropathy: Code(s): G62.9 - Polyneuropathy, unspecified Status: Acute Assessment and Plan: * known diagnosis * etiology not entirely clear * follows with Neurology as an outpatient (8) Generalized weakness: Code(s): R53.1 - Weakness Status: Resolved Assessment and Plan: * related to low BP and possible deconditioning from recent hospitalizations * PT/OT as tolerated Will continue to follow. L Subjective Date/time seen: 10/16/24 10:30 Interval history: Follow-up for end stage renal disease on peritoneal dialysis. Tolerated peritoneal dialysis treatment overnight without any issues or problems (CCPD supervised and seen at 10:20am); blood pressure remains a bit erratic but no hypotensive readings in the last 72 hours; no apparent distress voiced at the time of my visit. Exam 2 Narrative: General: WD/WN male in NAD Heart: normal S1 and S2; no rub Lungs: clear anteriorly; decreased at bases Abdomen: soft, nontender, nondistended, positive bowel sounds Extremities: no cyanosis or clubbing; trace edema Skin: warm and intact Objective Data Vital Signs Vital Signs: Vital Signs Temp Pulse Resp BP Pulse Ox O2 Del Method 10/16/24 10:19 95 10/16/24 07:30 97.3 F L 82 18 144/89 H 10/16/24 06:00 97.3 F L 82 16 144/89 H 95 10/16/24 06:00 97.3 F L 10/16/24 04:00 81 10/16/24 00:00 86 10/15/24 22:36 97.0 F L 94 18 143/87 H 100 10/15/24 22:35 97.2 F L 95 18 188/129 H 100 10/15/24 22:34 97.0 F L 63 18 167/96 H 100 10/15/24 22:33 97.0 F L 94 18 143/87 H 100 10/15/24 20:00 85 10/15/24 20:00 Room Air 10/15/24 19:55 98 Room Air 10/15/24 16:00 88 10/15/24 15:41 97.9 F 80 20 151/93 H 97 10/15/24 15:25 101 H 20 137/97 H 97 10/15/24 15:20 88 20 141/106 H 97 10/15/24 15:15 97.9 F 80 20 151/93 H 97 10/15/24 12:00 101 H Intake/Output Intake/Output: Intake & Output 10/13/24 10/14/24 10/15/24 10/16/24 23:59 23:59 23:59 23:59 Intake Total 2129 812 2000 600 Output Total 263 0614 969 2880 Balance 1866 -886 1356 -2062 Meds/Results Medications: Active Medications Generic Name Dose Route Start Last Admin Trade Name Freq PRN Reason Stop Dose Admin Hydrocodone Bitart/Acetaminophen 1 tab 10/09/24 21:44 10/15/24 20:40 Hydrocodone/Acetaminophen (*Crx) 5-325 Mg Tablet PO 1 tab Q8H PRN Administration Pain Rated 4-10 Buspirone HCl 10 mg 10/10/24 14:00 10/16/24 05:24 Buspirone Hcl 10 Mg Tablet PO 10 mg Q8HR CARIDAD Administration Calcium Acetate 2,668 mg 10/09/24 21:45 10/16/24 10:20 Calcium Acetate 667 Mg Tablet PO 2,668 mg TIDWM CARIDAD Administration Calcium Carbonate 200 mg 10/09/24 21:44 Calcium Carbonate (Tums) 500 Mg (200 Mg Elemental) PO HS PRN Indigestion Cinacalcet 90 mg 10/10/24 08:00 10/16/24 10:18 Cinacalcet 30 Mg Tablet PO 90 mg DAILY@0800 CARIDAD Administration Diphenoxylate HCl/Atropine 1 tablet 10/09/24 21:44 10/12/24 14:06 Diphenoxylate/Atropine (*Crx) 2.5 Mg Tablet PO 1 tablet QID PRN Administration diarrhea Escitalopram Oxalate 10 mg 10/10/24 09:00 10/16/24 10:20 Escitalopram Oxalate 10 Mg Tablet PO 10 mg DAILY CARIDAD Administration Gabapentin 100 mg 10/10/24 14:00 10/16/24 05:24 Gabapentin 100 Mg Capsule PO 100 mg Q8HR CARIDAD Administration Heparin Sodium (Porcine) 5,000 units 10/10/24 09:00 10/16/24 10:20 Heparin Sodium 5,000 Units/Ml Vial SUB-Q 5,000 units Q12HR CARIDAD Administration Labetalol HCl 10 mg 10/14/24 11:44 10/15/24 00:30 Labetalol Hcl Inj 100 Mg/20 Ml Vial IV PUSH 10 mg Q6H PRN Administration BP over 160/90 Melatonin 20 mg 10/09/24 21:44 10/15/24 20:40 Melatonin 5 Mg Tablet PO 20 mg HS PRN Administration Insomnia Metoprolol Tartrate 12.5 mg 10/11/24 09:00 10/16/24 10:19 Metoprolol Tartrate 12.5 Mg Tablet PO 12.5 mg Q12HR CARIDAD Administration Multivitamins Therapeutic 1 tablet 10/10/24 09:00 10/16/24 10:19 Multivitamins Therapeutic Tab (*Bkc) PO 1 tablet DAILY CARIDAD Administration Nortriptyline HCl 50 mg 10/09/24 22:00 10/15/24 20:37 Nortriptyline Hcl 25 Mg Capsule PO 50 mg HS CARIDAD Administration Pantoprazole Sodium 40 mg 10/10/24 09:00 10/16/24 10:20 Pantoprazole 40 Mg Tablet PO 40 mg QAM CARIDAD Administration Radiology Results: ITS Impressions Chest X-Ray 10/09/24 15:22 IMPRESSION: No focal infiltrate or effusion. Labs Labs: Laboratory Tests 10/16/24 04:46 10/16/24 04:46 Calcium 8.0 L Phosphorus 4.8 H Magnesium 1.6 Total Bilirubin 0.3 AST 24 ALT 20 Alkaline Phosphatase 145 H Total Protein 5.5 L Albumin 3.0 L
[2024-10-16] MEDS: LOSARTAN POTASSIUM 12.5 MG TABLET PO (12:18)
--- NOTE | 2024-10-16 14:49 | P.PNIM_ITS ---
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 except metoprolol Now getting hypertensive will restart losartan (2) Autonomic dysfunction: Code(s): G90.9 - Disorder of the autonomic nervous system, unspecified Status: Acute (3) Elevated troponin: Code(s): R79.89 - Other specified abnormal findings of blood chemistry Status: Acute Assessment and Plan: Demand ischemia (4) Acute hypokalemia: Code(s): E87.6 - Hypokalemia Status: Acute Assessment and Plan: Repeat as needed (5) Peripheral neuropathy: Qualifiers: Peripheral neuropathy type: polyneuropathy, unspecified Qualified Code(s): G62.9 - Polyneuropathy, unspecified Code(s): G62.9 - Polyneuropathy, unspecified Status: Chronic (6) End-stage renal disease on peritoneal dialysis: Code(s): N18.6 - End stage renal disease; Z99.2 - Dependence on renal dialysis Status: Acute Assessment and Plan: peritoneal Renal dialysis Plan This is a 54-year-old male who presents to the ED with weakness and hypotension. He was recently admitted for same and was diagnosed with sepsis at that time blood pressure medication were adjusted. EEG is on peritoneal dialysis and gets peritoneal dialysis on every night. He went to his PCP's appointment on 10/09/2024 prior to admission 1 was noted to be hypotension and was sent to the ED for evaluation. He was noted to be 89/70 on arrival to the ED. received a fluid bolus with improvement in his blood pressure. He was orthostatic when checked in the ER. Laboratory evaluation showed WBC of 10.8 hemoglobin of 12.8 platelet of 469. Sodium 133 potassium 2.9 chloride 94 bicarbonate 22 BUN 32 creatinine 11.15 blood glucose 122 lactate was 2.6. Chest x-ray with no acute process. It is suspected his hypotension was related to dehydration and possibly over dialysis. He was admitted for further treatment. Nephrology was consulted for his end-stage renal disease and to continue with peritoneal dialysis inpatient. Cardiology was also consulted. History of cardiomyopathy resolved on heart failure medication which had to be stopped due to low BP which includes interest to Coreg. Currently on metoprolol 6.25 b.i.d. which will be continued. He had been increased to 12.5 mg b.i.d.. Losartan was on hold Elevated troponin mild likely demand ischemia End-stage renal disease on peritoneal dialysis will continue same He chronic anemia end-stage renal disease related Hyponatremia Hypertension Neuropathy Generalized weakness DVT prophylaxis heparin subQ Code status full code Subjective Date/time seen: 10/16/24 14:49 Interval history: Blood pressure fluctuated overnight for hypertensive now. Worried about getting highs and not getting regulated. Did peritoneal dialysis overnight. No chest pain or shortness of breath. Review of Systems Review of Systems: All systems reviewed & are unremarkable except as noted in HPI and below Exam Narrative: Patient is comfortable, NAD HEENT: eyes are clear and none icteric LUNGS:CTA or respiratory distress HEART: RR S1S2 ABD: BS+, Soft and nontender Lower extremities: no edema SKIN: nonjaundiced Neuro: grossly intact. Objective Data Vital Signs Vital Signs: Vital Signs - 24 hr 10/15/24 15:15 10/15/24 15:20 10/15/24 15:25 Temperature 97.9 F Pulse Rate 80 88 101 H Respiratory Rate 20 20 20 Blood Pressure 151/93 H 141/106 H 137/97 H Pulse Oximetry 97 97 97 Oxygen Delivery Fraction of Inspired Oxygen 10/15/24 15:41 10/15/24 16:00 10/15/24 19:55 Temperature 97.9 F Pulse Rate 80 88 Respiratory Rate 20 Blood Pressure 151/93 H Pulse Oximetry 97 98 Oxygen Delivery Room Air Fraction of Inspired Oxygen 10/15/24 20:00 10/15/24 20:00 10/15/24 22:33 Temperature 97.0 F L Pulse Rate 85 94 Respiratory Rate 18 Blood Pressure 143/87 H Pulse Oximetry 100 Oxygen Delivery Room Air Fraction of Inspired Oxygen 10/15/24 22:34 10/15/24 22:35 10/15/24 22:36 Temperature 97.0 F L 97.2 F L 97.0 F L Pulse Rate 63 95 94 Respiratory Rate 18 18 18 Blood Pressure 167/96 H 188/129 H 143/87 H Pulse Oximetry 100 100 100 Oxygen Delivery Fraction of Inspired Oxygen 10/16/24 00:00 10/16/24 04:00 10/16/24 06:00 Temperature 97.3 F L Pulse Rate 86 81 Respiratory Rate Blood Pressure Pulse Oximetry Oxygen Delivery Fraction of Inspired Oxygen 10/16/24 06:00 10/16/24 07:30 10/16/24 08:00 Temperature 97.3 F L 97.3 F L Pulse Rate 82 82 83 Respiratory Rate 16 18 Blood Pressure 144/89 H 144/89 H Pulse Oximetry 95 Oxygen Delivery Fraction of Inspired Oxygen 10/16/24 10:19 10/16/24 10:20 10/16/24 10:45 Temperature Pulse Rate 95 88 Respiratory Rate 16 Blood Pressure 170/105 H Pulse Oximetry 99 Oxygen Delivery Room Air Fraction of Inspired Oxygen 0 10/16/24 10:50 10/16/24 10:55 10/16/24 12:00 Temperature Pulse Rate 94 102 H 82 Respiratory Rate 16 16 Blood Pressure 163/109 H 155/107 H Pulse Oximetry 100 100 Oxygen Delivery Fraction of Inspired Oxygen 10/16/24 13:40 Temperature 97.9 F Pulse Rate 82 Respiratory Rate 16 Blood Pressure 140/98 H Pulse Oximetry 97 Oxygen Delivery Fraction of Inspired Oxygen Intake/Output Intake/Output: Intake & Output 10/13/24 10/14/24 10/15/24 10/16/24 23:59 23:59 23:59 23:59 Intake Total 2129 812 2000 720 Output Total 263 7533 613 3443 Balance 3675 -644 1546 -7597 Meds/Results Medications: Active Medications Generic Name Dose Route Start Last Admin Trade Name Freq PRN Reason Stop Dose Admin Hydrocodone Bitart/Acetaminophen 1 tab 10/09/24 21:44 10/15/24 20:40 Hydrocodone/Acetaminophen (*Crx) 5-325 Mg Tablet PO 1 tab Q8H PRN Administration Pain Rated 4-10 Buspirone HCl 10 mg 10/10/24 14:00 10/16/24 05:24 Buspirone Hcl 10 Mg Tablet PO 10 mg Q8HR CARIDAD Administration Calcium Acetate 2,668 mg 10/09/24 21:45 10/16/24 12:18 Calcium Acetate 667 Mg Tablet PO 2,668 mg TIDWM CARIDAD Administration Calcium Carbonate 200 mg 10/09/24 21:44 Calcium Carbonate (Tums) 500 Mg (200 Mg Elemental) PO HS PRN Indigestion Cinacalcet 90 mg 10/10/24 08:00 10/16/24 10:18 Cinacalcet 30 Mg Tablet PO 90 mg DAILY@0800 CARIDAD Administration Diphenoxylate HCl/Atropine 1 tablet 10/09/24 21:44 10/12/24 14:06 Diphenoxylate/Atropine (*Crx) 2.5 Mg Tablet PO 1 tablet QID PRN Administration diarrhea Escitalopram Oxalate 10 mg 10/10/24 09:00 10/16/24 10:20 Escitalopram Oxalate 10 Mg Tablet PO 10 mg DAILY CARIDAD Administration Gabapentin 100 mg 10/10/24 14:00 10/16/24 05:24 Gabapentin 100 Mg Capsule PO 100 mg Q8HR CARIDAD Administration Heparin Sodium (Porcine) 5,000 units 10/10/24 09:00 10/16/24 10:20 Heparin Sodium 5,000 Units/Ml Vial SUB-Q 5,000 units Q12HR CARIDAD Administration Labetalol HCl 10 mg 10/14/24 11:44 10/15/24 00:30 Labetalol Hcl Inj 100 Mg/20 Ml Vial IV PUSH 10 mg Q6H PRN Administration BP over 160/90 Losartan Potassium 12.5 mg 10/16/24 12:00 10/16/24 12:18 Losartan Potassium 12.5 Mg Tablet PO 12.5 mg DAILY CARIDAD Administration Melatonin 20 mg 10/09/24 21:44 10/15/24 20:40 Melatonin 5 Mg Tablet PO 20 mg HS PRN Administration Insomnia Metoprolol Tartrate 12.5 mg 10/11/24 09:00 10/16/24 10:19 Metoprolol Tartrate 12.5 Mg Tablet PO 12.5 mg Q12HR CARIDAD Administration Multivitamins Therapeutic 1 tablet 10/10/24 09:00 10/16/24 10:19 Multivitamins Therapeutic Tab (*Bkc) PO 1 tablet DAILY CARIDAD Administration Nortriptyline HCl 50 mg 10/09/24 22:00 10/15/24 20:37 Nortriptyline Hcl 25 Mg Capsule PO 50 mg HS CARIDAD Administration Pantoprazole Sodium 40 mg 10/10/24 09:00 10/16/24 10:20 Pantoprazole 40 Mg Tablet PO 40 mg QAM CARIDAD Administration Radiology Results: ITS Impressions Chest X-Ray 10/09/24 15:22 IMPRESSION: No focal infiltrate or effusion. Labs Labs: Laboratory Results - last 24 hr 10/16/24 04:46 WBC 8.2 RBC 3.36 L Hgb 10.6 L Hct 32.5 L MCV 96.7 MCH 31.5 MCHC 32.6 RDW 12.9 Plt Count 316 MPV 8.8 Sodium 129 L Potassium 3.6 Chloride 95 L Carbon Dioxide 25 Anion Gap 9 BUN 44 H Creatinine 12.16 H Estim Creat Clear Calc 8 Estimated GFR 4 L Glucose 102 Calcium 8.0 L Phosphorus 4.8 H Magnesium 1.6 Total Bilirubin 0.3 AST 24 ALT 20 Alkaline Phosphatase 145 H Total Protein 5.5 L Albumin 3.0 L Hep Bs Antigen Negative
[2024-10-16] MEDS: MELATONIN 5 MG TABLET 20 MG PO (20:37)
[2024-10-16] MEDS: HYDROcodone/acetaminophen (*CRX) 5-325 MG TABLET 1 TAB PO (20:37)
[2024-10-16] MEDS: NORTRIPTYLINE HCL 25 MG CAPSULE 50 MG PO (20:37)
[2024-10-17] VITALS (9 sets, daily range): BP systolic 128–154; BP diastolic 74–99; PULSE 78–105; RESP 14–18; TEMP 36.2–36.6; O2SAT 97–98
[2024-10-17] MEDS: GABAPENTIN 100 MG CAPSULE PO (05:31)
[2024-10-17 06:26] LABS: Hematocrit 31.7 % (42.0-52.0); Hemoglobin 10.2 g/dL (14.0-18.0); Immature Granulocyte Percent A 0.5 % (0-0.5); Lymphocytes Absolute Auto 1.91 K/mm3 (0.9-3.2); Mean Corpuscular HGB Conc 32.2 g/dl (32-36); Mean Corpuscular Hemoglobin 31.3 pg (26-34); Mean Corpuscular Volume 97.2 fl (80-100); Nucleated Red Blood Cells Absolute Auto 0.000 K/mm3 (0.0-0.012); Nucleated Red Blood Cells Perc 0.0 % (0.0-0.2); Platelet Count Result 307 k/mm3 (150-375); Red Blood Count 3.26 M/mm3 (4.6-6.20); White Blood Count 10.0 K/mm3 (4.5-10.0)
[2024-10-17 06:51] LABS: Alanine Aminotransferase 18 U/L (6-50); Albumin Level 3.1 g/dL (3.5-5.1); Alkaline Phosphatase 150 U/L (38-126); Anion Gap 10 mmol/L (4-12); Aspartate Amino Transferase 20 U/L (17-59); Bilirubin,Total 0.2 mg/dL (0.2-1.3); Blood Urea Nitrogen 49 mg/dL (9-20); Calcium 7.8 mg/dL (8.4-10.2); Carbon Dioxide 25 mmol/L (22-30); Chloride 93 mmol/L (98-107); Estimated CRCL calculation 8 ml/min; Estimated Glomerular Filt Rate 4; Glucose 96 mg/dL (65-110); Magnesium 1.5 mg/dL (1.6-2.3); Potassium 3.7 mmol/L (3.4-5.0); Sodium 128 mmol/L (137-145); Total Protein 5.4 g/dL (6.3-8.2)
[2024-10-17] MEDS: CINACALCET 30 MG TABLET 90 MG PO (08:46)
[2024-10-17] MEDS: MULTIVITAMINS THERAPEUTIC TAB (*BKC) 1 TABLET PO (08:46)
[2024-10-17] MEDS: ESCITALOPRAM OXALATE 10 MG TABLET PO (08:46)
[2024-10-17] MEDS: LOSARTAN POTASSIUM 12.5 MG TABLET PO (08:46)
[2024-10-17] MEDS: METOPROLOL TARTRATE 12.5 MG TABLET PO (08:46)
[2024-10-17] MEDS: CALCIUM ACETATE 667 MG TABLET 2668 MG PO ×2 (08:46→11:44)
[2024-10-17] MEDS: PANTOPRAZOLE 40 MG TABLET PO (08:47)
--- NOTE | 2024-10-17 09:43 | P.PNNP_ITS ---
Progress Note: A&P Assessment and Plan (1) End stage renal disease: Code(s): N18.6 - End stage renal disease Status: Chronic Assessment and Plan: * continue CCPD while hospitalized * continue current Rx (with adjustments as needed) * follow trend of electrolytes, volume status, and clearance (2) Hypotension: Code(s): I95.9 - Hypotension, unspecified Status: Acute Assessment and Plan: * resolved * as noted on presentation * responded well to IVFs in the ER * possibly due to aggressive fluid removal/ultrafiltration with dialysis on recent hospitalization * possibly medication related(?) -- he is not entirely clear on what BP medications he was taking at home prior to admission * follow trend of hemodynamics (3) Anemia: Code(s): D64.9 - Anemia, unspecified Status: Acute Assessment and Plan: * due to ESRD * stable at this time * resume Epogen when Hgb < 10 (4) Hyponatremia: Code(s): E87.1 - Hypo-osmolality and hyponatremia Status: Chronic Assessment and Plan: * somewhat of a chronic issue * relatively stable (but fluctuates at baseline) * due to fluctuations in volume status, water intake and renal failure * follow trend (5) Congestive heart failure: Code(s): I50.9 - Heart failure, unspecified Status: Chronic Assessment and Plan: * known history of systolic and diastolic dysfunction * last Echo (July 2024) noted: * left ventricular systolic function is normal, estimated at 55-60% * left ventricular diastolic function is abnormal * mitral valve has a moderately calcified annulus * mild mitral valve regurgitation * mild pulmonary hypertension, estimated pulmonary arterial systolic pressure is 45 mmHg * trace pulmonic regurgitation * overall heart function seems to be improved * appears stable if not compensated (6) HTN (hypertension): Code(s): I10 - Essential (primary) hypertension Status: Chronic Assessment and Plan: * despite known history, low BP on presentation * BP now rising * adjustment to BP medications ongoing * follow trend of hemodynamics (7) Neuropathy: Code(s): G62.9 - Polyneuropathy, unspecified Status: Acute Assessment and Plan: * known diagnosis * etiology not entirely clear * follows with Neurology as an outpatient (8) Generalized weakness: Code(s): R53.1 - Weakness Status: Resolved Assessment and Plan: * related to low BP and possible deconditioning from recent hospitalizations * PT/OT as tolerated Not opposed to discharge from renal perspective if otherwise medically stable. Dr. Marcus can follow-up with him at the dialysis clinic for management of his ESRD on peritoneal dialysis. Will continue to follow. L Subjective Date/time seen: 10/17/24 09:43 Interval history: Follow-up for end stage renal disease on peritoneal dialysis. Continues to tolerated nightly peritoneal dialysis treatments without any issues or problems; no apparent distress voiced at the time of my visit -- feels reasonably well; BP seems relatively stable without any issues of significant hypotension. Exam 2 Narrative: General: WD/WN male in NAD Heart: normal S1 and S2; no rub Lungs: clear anteriorly; decreased at bases Abdomen: soft, nontender, nondistended, positive bowel sounds Extremities: no cyanosis or clubbing; trace edema Skin: no rash Objective Data Vital Signs Vital Signs: Vital Signs Temp Pulse Resp BP Pulse Ox O2 Del Method FiO2 10/17/24 08:46 88 10/17/24 05:43 97.2 F L 86 18 144/89 H 98 10/17/24 04:00 78 10/17/24 00:00 88 10/16/24 22:10 97.2 F L 99 18 140/92 H 100 10/16/24 22:05 97.2 F L 91 18 132/98 H 100 10/16/24 22:00 87 18 155/92 H 98 10/16/24 22:00 98.2 F 87 18 155/92 H 98 10/16/24 20:00 90 10/16/24 20:00 Room Air 10/16/24 19:51 88 20 96 Room Air 21 10/16/24 16:00 79 10/16/24 13:40 97.9 F 82 16 140/98 H 97 Intake/Output Intake/Output: Intake & Output 10/14/24 10/15/24 10/16/24 10/17/24 23:59 23:59 23:59 23:59 Intake Total 812 2000 1210 600 Output Total 9934 274 4752 190 Balance -886 1356 -1450 410 Meds/Results Medications: Active Medications Generic Name Dose Route Start Last Admin Trade Name Freq PRN Reason Stop Dose Admin Hydrocodone Bitart/Acetaminophen 1 tab 10/09/24 21:44 10/16/24 20:37 Hydrocodone/Acetaminophen (*Crx) 5-325 Mg Tablet PO 1 tab Q8H PRN Administration Pain Rated 4-10 Buspirone HCl 10 mg 10/10/24 14:00 10/17/24 05:31 Buspirone Hcl 10 Mg Tablet PO 10 mg Q8HR CARIDAD Administration Calcium Acetate 2,668 mg 10/09/24 21:45 10/17/24 11:44 Calcium Acetate 667 Mg Tablet PO 2,668 mg TIDWM CARIDAD Administration Calcium Carbonate 200 mg 10/09/24 21:44 Calcium Carbonate (Tums) 500 Mg (200 Mg Elemental) PO HS PRN Indigestion Cinacalcet 90 mg 10/10/24 08:00 10/17/24 08:46 Cinacalcet 30 Mg Tablet PO 90 mg DAILY@0800 [facility] Administration Diphenoxylate HCl/Atropine 1 tablet 10/09/24 21:44 10/12/24 14:06 Diphenoxylate/Atropine (*Crx) 2.5 Mg Tablet PO 1 tablet QID PRN Administration diarrhea Escitalopram Oxalate 10 mg 10/10/24 09:00 10/17/24 08:46 Escitalopram Oxalate 10 Mg Tablet PO 10 mg DAILY CARIDAD Administration Gabapentin 100 mg 10/10/24 14:00 10/17/24 05:31 Gabapentin 100 Mg Capsule PO 100 mg Q8HR CARIDAD Administration Heparin Sodium (Porcine) 5,000 units 10/10/24 09:00 10/17/24 08:46 Heparin Sodium 5,000 Units/Ml Vial SUB-Q 5,000 units Q12HR CARIDAD Administration Labetalol HCl 10 mg 10/14/24 11:44 10/15/24 00:30 Labetalol Hcl Inj 100 Mg/20 Ml Vial IV PUSH 10 mg Q6H PRN Administration BP over 160/90 Losartan Potassium 12.5 mg 10/16/24 12:00 10/17/24 08:46 Losartan Potassium 12.5 Mg Tablet PO 12.5 mg DAILY CARIDAD Administration Melatonin 20 mg 10/09/24 21:44 10/16/24 20:37 Melatonin 5 Mg Tablet PO 20 mg HS PRN Administration Insomnia Metoprolol Tartrate 12.5 mg 10/11/24 09:00 10/17/24 08:46 Metoprolol Tartrate 12.5 Mg Tablet PO 12.5 mg Q12HR CARIDAD Administration Multivitamins Therapeutic 1 tablet 08/19/25 09:00 10/17/24 08:46 Multivitamins Therapeutic Tab (*Bkc) PO 1 tablet DAILY CARIDAD Administration Nortriptyline HCl 50 mg 10/09/24 22:00 10/16/24 20:37 Nortriptyline Hcl 25 Mg Capsule PO 50 mg HS CARIDAD Administration Pantoprazole Sodium 40 mg 10/10/24 09:00 10/17/24 08:47 Pantoprazole 40 Mg Tablet PO 40 mg QAM CARIDAD Administration Radiology Results: ITS Impressions Chest X-Ray 10/09/24 15:22 IMPRESSION: No focal infiltrate or effusion. Labs Labs: Laboratory Tests 10/17/24 06:00 10/17/24 06:00 Calcium 7.8 L Magnesium 1.5 L Total Bilirubin 0.2 AST 20 ALT 18 Alkaline Phosphatase 150 H Total Protein 5.4 L Albumin 3.1 L
--- NOTE | 2024-10-17 13:58 | P.DS_ITS ---
DS: Admitting Diagnosis Discharge Date 10/17/2024 Admitting Diagnosis Low blood pressure DS: Discharge Diagnosis Discharge Diagnosis (1) Orthostatic hypotension: Code(s): I95.1 - Orthostatic hypotension Status: Acute (2) Autonomic dysfunction: Code(s): G90.9 - Disorder of the autonomic nervous system, unspecified Status: Acute (3) Elevated troponin: Code(s): R79.89 - Other specified abnormal findings of blood chemistry Status: Acute (4) Acute hypokalemia: Code(s): E87.6 - Hypokalemia Status: Acute (5) Peripheral neuropathy: Qualifiers: Peripheral neuropathy type: polyneuropathy, unspecified Qualified Code(s): G62.9 - Polyneuropathy, unspecified Code(s): G62.9 - Polyneuropathy, unspecified Status: Chronic (6) End-stage renal disease on peritoneal dialysis: Code(s): N18.6 - End stage renal disease; Z99.2 - Dependence on renal dialysis Status: Acute DS: Summary Hospital Course Hospital Course: This is a 54-year-old male who presents to the ED with weakness and hypotension. He was recently admitted for same and was diagnosed with sepsis at that time blood pressure medication were adjusted. EEG is on peritoneal dialysis and gets peritoneal dialysis on every night. He went to his PCP's appointment on 10/09/2024 prior to admission 1 was noted to be hypotension and was sent to the ED for evaluation. He was noted to be 89/70 on arrival to the ED. received a fluid bolus with improvement in his blood pressure. He was orthostatic when checked in the ER. Laboratory evaluation showed WBC of 10.8 hemoglobin of 12.8 platelet of 469. Sodium 133 potassium 2.9 chloride 94 bicarbonate 22 BUN 32 creatinine 11.15 blood glucose 122 lactate was 2.6. Chest x-ray with no acute process. It is suspected his hypotension was related to dehydration and possibly over dialysis. He was admitted for further treatment. Nephrology was consulted for his end-stage renal disease and to continue with peritoneal dialysis inpatient. Cardiology was also consulted. History of cardiomyopathy resolved on heart failure medication which had to be stopped due to low BP which includes interest to Coreg. Currently on metoprolol 6.25 b.i.d. which will be continued. He had been increased to 12.5 mg b.i.d.. Losartan was on hold. Losartan restarted with stabilization of blood pressure. Elevated troponin mild likely demand ischemia End-stage renal disease on peritoneal dialysis will continue same He chronic anemia end-stage renal disease related Hyponatremia Hypertension Neuropathy Generalized weakness DVT prophylaxis heparin subQ Code status full code Time Spent with Patient Time attestation: Total time spent providing and/or coordinating discharge services: 35 minutes Exam Narrative: Patient is comfortable, NAD HEENT: eyes are clear and none icteric LUNGS:CTA or respiratory distress HEART: RR S1S2 ABD: BS+, Soft and nontender Lower extremities: no edema SKIN: nonjaundiced Neuro: grossly intact. DS: Data Data Completed and Pending Labs on day of discharge: Labs from last 24 hours 10/17/24 06:00 WBC 10.0 RBC 3.26 L Hgb 10.2 L Hct 31.7 L MCV 97.2 MCH 31.3 MCHC 32.2 RDW 12.9 Plt Count 307 MPV 8.9 Immature Gran % (Auto) 0.5 Neut % (Auto) 53.8 Lymph % (Auto) 19.0 Dougherty % (Auto) 13.1 H Eos % (Auto) 12.8 H Baso % (Auto) 0.8 Lymph # (Auto) 1.91 Dougherty # (Auto) 1.3 H Eos # (Auto) 1.3 H Baso # (Auto) 0.1 Abs Immat Gran (auto) 0.05 H Absolute Neuts (auto) 5.4 Absolute Nucleated RBC 0.000 Nucleated RBC % 0.0 Sodium 128 L Potassium 3.7 Chloride 93 L Carbon Dioxide 25 Anion Gap 10 BUN 49 H Creatinine 12.75 H Estim Creat Clear Calc 8 Estimated GFR 4 L Glucose 96 Calcium 7.8 L Magnesium 1.5 L Total Bilirubin 0.2 AST 20 ALT 18 Alkaline Phosphatase 150 H Total Protein 5.4 L Albumin 3.1 L Preliminary micro results at discharge 10/09/24 15:25 Blood Culture - Preliminary Blood 10/09/24 15:03 Blood Culture - Preliminary Blood Imaging Radiologist's impression: ITS Impressions Chest X-Ray 10/09/24 15:22 IMPRESSION: No focal infiltrate or effusion. Discharge Plan Discharge Attending physician on discharge: Leoncio Grullon Consulting providers: Quang Johnson; Gloria Dennis; Waleska Choi Discharging Clinician: Leoncio Grullon Anticipated Discharge Date/Time: 10/17/24 14:00 Patient Disposition: Home with Home Health Service Activity: as tolerated Diet: renal Discharge Instructions: Per Care Coordination: [facility] will contact you prior to their first visit. [facility] will follow for RN and PT/OT eval and treat. [facility] can be contacted at [phone]. A referral was made on your behalf to the Department of Rehabilitation Services for additional help at home. You can follow up on this referral by contacting the local [facility] Rehabilitation Services office located at [address] [place] [address]. Telephone number: . Take your time getting up slowly when he get out of bed or ambulate Continue peritoneal dialysis as previously ordered/scheduled Patient Instructions: Antibiotic Form, Heparin/Sodium Chloride (By injection), Heart Failure (GEN) Patient Language: Urdu Stand Alone Forms: General Discharge Information Follow-up/Referrals: Quang Johnson DO [Physician, Cardiology] - 2 Weeks Angella Han APRN [Primary Care Provider, Internal Medicine] - 1 Week Discharge Medications: Continued calcium carbonate [Tums] 200 mg calcium (500 mg) tablet,chewable 200 mg PO HS PRN (Reason: Indigestion) omeprazole 20 mg capsule,delayed release(DR/EC) 20 mg PO DAILY Qty: 90 1RF multivitamin Tablet 1 tablet PO DAILY ferric citrate [Auryxia] 210 mg iron Tablet 210 mg PO TIDWM Rx Instructions: administer with a meal albuterol sulfate 90 mcg/actuation HFA aerosol inhaler 2 inh INHALATION QID PRN (Reason: shortness of breath or wheezing) calcium acetate(phosphat bind) 667 mg capsule 2,668 mg PO TIDWM ondansetron 4 mg tablet,disintegrating 8 mg translingual Q8H PRN (Reason: nausea and vomiting) gabapentin 100 mg Capsule 100 mg PO TID Qty: 90 0RF melatonin 10 mg capsule 20 mg PO HS PRN (Reason: Insomnia) Qty: 30 0RF nortriptyline 50 mg capsule 50 mg PO HS cinacalcet 30 mg tablet 90 mg PO DAILY escitalopram oxalate 10 mg tablet 10 mg PO DAILY losartan 25 mg tablet 12.5 mg PO DAILY 30 Days Qty: 15 0RF diphenoxylate-atropine 2.5-0.025 mg tablet 1 tablet PO QID PRN (Reason: diarrhea) Qty: 60 0RF hydrocodone-acetaminophen 5-325 mg tablet 1 tablet PO Q8H PRN (Reason: Pain Rated 4-10) Qty: 90 0RF buspirone 10 mg tablet See Rx Instructions .ROUTE .COMPLEX Qty: 90 0RF Dose Instruction: TAKE 1 TABLET BY MOUTH THREE TIMES DAILY Rx Instructions: TAKE 1 TABLET BY MOUTH THREE TIMES DAILY Changed metoprolol tartrate 25 mg tablet 12.5 mg PO BID 30 Days Qty: 15 0RF Discontinued furosemide [Lasix] 40 mg tablet 40 mg PO BID Date of admission: 10/09/24 18:50 Primary Care Provider: Angella Han Admitting Provider: Carson Zhu Attending physician on admission: Carson Zhu Condition: Improved
== END 2024-10-17 15:34 | disposition home health service (06) | DRG 312 ==
LOC: ANHED 14:31 → ANHIMU 19:44 → ANH3MED 10-12 17:43
PROVIDERS: Family Medicine; Internal Medicine; Internal Medicine Nephrology; Admitting Provider General Practice; Emergency Provider Student in an Organized Health Care Education/Training Program; PCP Nurse Practitioner Family; Visit Provider Internal Medicine
DX: I95.1 Orthostatic hypotension (principal); N18.6 End stage renal disease; E87.1 Hypo-osmolality and hyponatremia; I13.2 Hypertensive heart and chronic kidney disease with heart failure and with stage 5 chronic kidney disease, or end stage renal disease; I42.9 Cardiomyopathy, unspecified; I50.42 Chronic combined systolic (congestive) and diastolic (congestive) heart failure; D63.1 Anemia in chronic kidney disease; G90.9 Disorder of the autonomic nervous system, unspecified; I27.20 Pulmonary hypertension, unspecified; Z99.2 Dependence on renal dialysis; E86.0 Dehydration; E87.6 Hypokalemia; R53.1 Weakness; R79.89 Other specified abnormal findings of blood chemistry; G62.9 Polyneuropathy, unspecified; I73.9 Peripheral vascular disease, unspecified; E78.5 Hyperlipidemia, unspecified; E53.8 Deficiency of other specified B group vitamins; E55.9 Vitamin D deficiency, unspecified; Z79.51 Long term (current) use of inhaled steroids; Z79.899 Other long term (current) drug therapy; Z87.891 Personal history of nicotine dependence; Z90.49 Acquired absence of other specified parts of digestive tract
CPT/HCPCS: 36415; 71046; 80048; 80053; 80069; 83605; 83735; 84100; 84484; 85025; 85027; 85610; 85730; 86140; 87040; 87340; 87641; 90945; 93005; 96360; 97110; 97116; 97161; 97166; 97530; 97535; 99285; A9270; J1644; J3475; J7120; Q5105